=== PATIENT | male | born 1960 | race Caucasian/White ===

== ENCOUNTER 2019-05-28 14:43 | Inpatient (IN) | payer OTHER ==
--- OUTSIDE RECORDS SUMMARY | 2019-05-28 14:49 | XMS REPORT | Continuity of Care Document ---
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 Hemiplegia, 01/25/2019 [facility] unspecified Medical affecting left Center nondominant side Hypertensive 01/25/2019 [facility] emergency Medical Center Essential 01/25/2019 [facility] hypertension Medical Center Unspecified viral 01/25/2019 [facility] hepatitis C Medical without hepatic Center coma Unspecified 01/25/2019 [facility] cirrhosis of Medical liver Center NIHSS score 5 01/25/2019 [facility] Hyperlipidemia, 01/25/2019 [facility] unspecified Medical Center Facial weakness 01/25/2019 [facility] Nicotine 01/25/2019 [facility] dependence, Medical cigarettes, Center uncomplicated Personal history 01/25/2019 [facility] of transient Medical ischemic attack , Center and cerebral infarction without residual deficits Patient's other 01/25/2019 [facility] noncompliance Medical with medication Center regimen OTHER CEREBRAL Active [facility] INFARCTION Medical Center Medications Medication Details Route Status Patient Ordering Order Source Instructions Provider Date amLODIPine 5 mg 5 mg=1 tab, Active [facility] oral tablet PO, Daily, # 018 Medical 30 tab, 2 Center Refill(s) lisinopril 20 mg 20 mg=1 tab, Active [facility] oral tablet PO, Daily, # 018 Medical 30 tab, 2 Center Refill(s) clopidogrel 75 75 mg=1 tab, Active [facility] mg oral tablet PO, Daily, # 018 Medical 30 tab, 2 Center Refill(s) atorvastatin 20 20 mg=1 tab, Active [facility] [place] mg oral tablet PO, Bedtime, 018 Medical # 30 tab, 2 Center Refill(s) Aspirin 325 MG 325 mg=1 tab, Active [facility] Enteric Coated PO, Daily, # 018 Medical Tablet 30 tab, 2 Center Refill(s) Lisinopril 20 mg, 1 tab, Inactive [facility] Route: PO, 018 Medical Drug form: Center TAB, Daily, Dosing Weight 88.636, kg, Start date: 07/08/18 12:00:00 CDT, Duration: 30 day, Stop date: 08/07/18 9:00:00 CDTNotes: (Same as: Prinivil, Zestril) Docusate Sodium 1 tab, Route: No Longer [facility] 50 MG / PO, Drug Active 018 Medical sennosides, SHELTER Form: TAB, Center 8.6 MG Oral Dosing Weight Tablet 88.636, kg, BID, Start date: 07/07/18 17:00:00 CDT, Duration: 30 day, Stop date: 08/06/18 9:00:00 CDTNotes: (Same as Senokot-S) Equiv. to Anai-Colace. Tramadol 50 mg, 1 tab, No Longer [facility] Route: PO, Active [facility] form: [place] TAB, Q6H, Dosing Weight 88.636, kg, PRN Pain Score 6-10, Start date: 07/07/18 13:07:00 CDT, Duration: 5 day, Stop date: 07/12/18 13:06:00 CDTNotes: Not to exceed 400mg/day. (Same As: Ultram) Midazolam 2 mg, Route: Inactive [facility] IVP, ONCE, 018 Medical Dosing Weight Center 88.636, kg, Start date: 07/07/18 13:04:00 CDT, Stop date: 07/07/18 13:04:00 CDT Fentanyl 100 Inactive [facility] microgram, 018 Medical Route: IV, Center ONCE, Dosing Weight 88.636, kg, Start date: 07/07/18 13:04:00 CDT, Stop date: 07/07/18 13:04:00 CDT Omnipaque 300 150 mL, Inactive [facility] Route: 018 Medical INTRAARTERIAL Center , Dosing Weight 88.636, kg, ONCE, Start date: 07/07/18 13:04:00 CDT, Stop date: 07/07/18 13:04:00 CDT captopril 25 mg, 1 tab, No Longer [facility] Route: PO, Active 018 Medical Drug form: Center TAB, Q8H, Start date: 07/07/18 12:25:00 CDT, Duration: 30 day, Stop date: 08/06/18 8:00:00 CDTNotes: Give on empty stomach. 1 hour before meal. (Same As: Capoten) remove patch 1 patch, No Longer [facility] Route: TOP, Active 018 Medical Bedtime, Drug Center form: ERFILM, Start date: 07/06/18 21:00:00 CDT, Duration: 30 day, Stop date: 08/04/18 21:00:00 CDTNotes: Remove patch 12 hours after application each day. remove patch 1 patch, No Longer [facility] Route: TOP, Active 018 Medical Drug form: Center ERFILM, Daily, Start date: 07/06/18 9:00:00 CDT, Duration: 30 day, Stop date: 08/04/18 9:00:00 CDTNotes: Remove old patch before application of new patch. WASTE: F/P - P Waste Black; E - P Waste Black Aspirin 325 MG 325 mg, 1 No Longer [facility] Enteric Coated tab, Route: Active 018 Medical Tablet PO, Drug Center form: TAB, Daily, Dosing Weight 88.636, kg, Start date: 07/06/18 9:00:00 CDT, Duration: 30 day, Stop date: 08/04/18 9:00:00 CDTNotes: Take with food. Lidocaine 0.05 1 patch, No Longer [facility] MG/MG Route: TOP, Active 018 Medical Transdermal Daily, Drug Center Patch form: FILM, Start date: 07/06/18 9:00:00 CDT, Duration: 30 day, Stop date: 08/04/18 9:00:00 CDTNotes: Apply only once for up to 12 hours in a 24-hour period (12 hours on and 12 hours off). (Same as: Lidoderm) "Remove old patch before application of new patch" Amlodipine 5 mg, 1 tab, No Longer [facility] Route: PO, Active 018 Medical Drug form: Center TAB, Daily, Dosing Weight 88.636, kg, Start date: 07/06/18 8:03:00 CDT, Duration: 30 day, Stop date: 08/04/18 9:00:00 CDT Tylenol 650 mg, 2 No Longer [facility] tab, Route: Active 018 Medical PO, Drug Center form: TAB, Q6H, Dosing Weight 88.636, kg, PRN Pain 1-3/Temp > 100.4 F, Start date: 07/06/18 2:07:00 CDT, Duration: 30 day, Stop date: 08/05/18 2:06:00 CDTNotes: Do not exceed 4 gm/day. (Same as: Tylenol) Spironolactone 25 mg=2 tab, No Longer [facility] PO, Daily, # Active 018 Medical 60 tab, 0 Center Refill(s) Furosemide Daily, 0 No Longer [facility] Refill(s) Active 018 [facility] Center amLODIPine 10 mg 20 mg=2 tab, No Longer [facility] oral tablet PO, QAM, 0 Active 018 Medical Refill(s) Center Nicotine 21 mg, 1 No Longer [facility] patch, Route: Active 018 Medical TOP, Drug Center form: ERFILM, Daily, Dosing Weight 88.636, kg, Start date: 07/05/18 9:00:00 CDT, Duration: 30 day, Stop date: 08/03/18 9:00:00 CDTNotes: (Same as: Habitrol) "Remove old patch before application of new patch" WASTE: F/P - P Waste Black; E - P Waste Black Plavix 75 mg, 1 tab, No Longer [facility] Route: PO, Active 018 Medical Drug form: Center TAB, Daily, Dosing Weight 88.636, kg, Start date: 07/05/18 9:00:00 CDT, Stop date: 08/03/18 9:00:00 CDTNotes: (Same As: Plavix) Aspirin 81 MG 81 mg, 1 tab, No Longer [facility] Enteric Coated Route: PO, Active 018 Medical Tablet Drug form: [place] ECTAB, Daily, Dosing Weight 88.636, kg, Start date: 07/05/18 8:00:00 CDT, Duration: 30 day, Stop date: 08/03/18 9:00:00 CDTNotes: Do not crush or chew. (Same As: Ecotrin) Saline Flush 10 ml, Route: No Longer [facility] 0.9% IVP, Drug Active 018 Medical Form: INJ, [place] Dosing Weight 88.636, kg, Q12H, Start date: 07/04/18 21:00:00 CDT, Duration: 30 day, Stop date: 08/03/18 9:00:00 CDTNotes: (Same as: BD Posiflush) atorvastatin 20 mg, 1 tab, No Longer [facility] Route: PO, Active 018 Medical Drug form: [place] TAB, Bedtime, Dosing Weight 88.636, kg, Start date: 07/04/18 21:00:00 CDT, Duration: 30 day, Stop date: 08/02/18 21:00:00 CDTNotes: (Same As: Lipitor) sennosides, SHELTER 8.6 mg, 1 No Longer [facility] tab, Route: Active 018 Medical PO, Drug Center Form: TAB, Dosing Weight 88.636, kg, BID, PRN Constipation, Start date: 07/04/18 17:46:00 CDT, Duration: 30 day, Stop date: 08/03/18 17:45:00 CDTNotes: (Same as: Senokot) Plavix 600 mg, 2 Inactive [facility] tab, Route: 018 Medical PO, Drug Center form: TAB, ONCE, Dosing Weight 88.636, kg, Start date: 07/04/18 16:26:00 CDT, Stop date: 07/04/18 16:26:00 CDTNotes: ( Same as: Plavix) Aspirin 325 MG 325 mg, 1 Inactive [facility] Oral Tablet tab, Route: 018 Medical PO, Drug Center form: TAB, ONCE, Dosing Weight 88.636, kg, Priority: STAT, Start date: 07/04/18 16:26:00 CDT, Stop date: 07/04/18 16:26:00 CDTNotes: Take with food. heparin 5,000 unit, 1 No Longer [facility] mL, Route: Active 018 Medical SUB-Q, Drug Center form: INJ, Q8H, Dosing Weight 88.636, kg, (For patients weighing Notes: porcine heparin iodixanol 100 mL, Inactive [facility] Route: IVP, 018 Medical Drug Form: [place] SOLN, Dosing Weight 88.636, kg, ONCALL, STAT, Start date: 07/04/18 15:05:00 CDT, Duration: 1 doses or times, Dose=2.2ml/kg , Max [id number] -- "To be infused by Radiology Staff ONLY" Saline Flush 10 ml, Route: No Longer [facility] 0.9% IVP, Drug Active 018 Medical Form: INJ, [place] Dosing Weight 88.636, kg, PRN, PRN Line Flush, Start date: 07/04/18 15:01:00 CDT, Duration: 30 day, Stop date: 08/03/18 15:00:00 CDTNotes: (Same as: BD Posiflush) Hydralazine 10 mg, 0.5 No Longer [facility] mL, Route: Active 018 Medical IVP, Drug Center form: INJ, Q6H, Dosing Weight 88.636, kg, PRN Hypertension, Start date: 07/04/18 15:01:00 CDT, Duration: 30 day, Stop date: 08/03/18 15:00:00 CDTNotes: (Same as: Apresoline) Push over 5 minutes Labetalol 10 mg, 2 mL, No Longer [facility] Route: IVP, Active 018 Medical Drug form: [place] INJ, Q15Min, Dosing Weight 88.636, kg, PRN Hypertension, Start date: 07/04/18 15:01:00 CDT, Duration: 30 day, Stop date: 08/03/18 15:00:00 CDT Ondansetron 4 mg, 2 mL, No Longer [facility] Route: IVP, Active 018 Medical Drug form: Center INJ, Q8H, Dosing Weight 88.636, kg, PRN Nausea & Vomiting, Start date: 07/04/18 15:01:00 CDT, Duration: 30 day, Stop date: 08/03/18 15:00:00 CDTNotes: (Same as: Zofran) MEDICATION WASTE Product Size: 4 mg Product Wasted: ___ mg Sodium Chloride 1,000 mL, No Longer [facility] 0.9% IV 1,000 mL Rate: 100 Active 018 Medical ml/hr, Infuse Center over: 10 hr, Route: IV, Dosing Weight 88.636 kg, Total Volume: 1,000, Start date: 07/04/18 15:01:00 CDT, Duration: 30 day, Stop date: 08/03/18 15:00:00 CDT, 2.11, m2 Saline Flush 10 mL, Route: No Longer [facility] 0.9% MISC, Drug Active 018 Medical Form: INJ, Center Dosing Weight 88.636, kg, PRN, PRN Line Flush, Start date: 07/04/18 14:01:00 CDT, Duration: 30 day, Stop date: 08/03/18 14:00:00 CDTNotes: (Same as: BD Posiflush) Allergies, Adverse Reactions, Alerts Substance Category Reaction Severity Reaction Status Date Comments Source type Reported No Known Assertion Drug Mischer Medication allergy Neuro Allergies Immunizations No Data Provided for This Section Results Order Name Results Value Reference Date Interpretation Comments Source Range CHEM PANEL Magnesium Lvl 2.3 1.8 - 2.4 07/08 [facility] CHEM PANEL Phosphorus 3.8 2.5 - 4.5 07/08 [facility] CHEM PANEL eGFR 106 07/08 Result Comment: The Medical eGFR is Center calculated using the CKD-EPI formula. In most young, healthy individuals the eGFR will be >90 mL/min/1.73m2 . The eGFR declines with age. An eGFR of 60-89 may be normal in some populations, particularly the elderly, for whom the CKD-EPI formula has not been extensively validated. Use of the eGFR is not recommended in the following populations:< br/>
Kylie viduals with unstable creatinine concentration s, including patients and those with serious co-morbid conditions.<b r/>
Patie nts with extremes in muscle mass or diet.

The data above are obtained from the National Kidney Disease Education Program (NKDEP) which additionally recommends that when the eGFR is used in patients with extremes of body mass index for purposes of drug dosing, the eGFR should be multiplied by the estimated BMI. CHEM PANEL Potassium Lvl 3.7 3.5 - 5.1 07/[address] CHEM PANEL Sodium Lvl 140 135 - 145 07/[address] CHEM PANEL Creatinine 0.65 0.50 - 07/08 [facility] Lvl 1.40 [facility] CHEM PANEL Chloride Lvl 108 95 - 109 07/[address] CHEM PANEL Calcium Lvl 8.1 8.5 - 10.5 07/[address] CHEM PANEL CO2 24 24 - 32 07/[address] CHEM PANEL BUN 12 7 - 22 07/[address] CHEM PANEL Glucose Lvl 116 70 - 99 07/[address] CHEM PANEL AGAP 11.7 10.0 - 07/08 [facility] 20.0 2017 [facility] HEMATOLOGY Basophils # 0.1 0.0 - 0.2 07/[address] HEMATOLOGY Eosinophils # 0.2 0.0 - 0.5 07/[address] HEMATOLOGY Monocytes # 0.5 0.0 - 0.8 07/[address] HEMATOLOGY Lymphocytes # 1.4 1.0 - 5.5 07/[address] HEMATOLOGY Neutrophils # 4.3 1.5 - 8.1 07/[address] HEMATOLOGY Monocytes 7.7 2.0 - 12.0 07/[address] HEMATOLOGY Lymphocytes 21.2 20.0 - 07/08 [place] 40.0 2017 [facility] HEMATOLOGY Eosinophils 2.4 0.0 - 4.0 07/[address] HEMATOLOGY Basophils 1.3 0.0 - 1.0 07/[address] HEMATOLOGY Segs 67.4 45.0 - 07/08 [place] 75.0 [facility] HEMATOLOGY Hct 41.7 42.0 - 07/08 [place] 54.0 [facility] HEMATOLOGY MCV 91.7 80.0 - 07/08 [facility] 94.0 [facility] HEMATOLOGY WBC 6.4 3.7 - 10.4 07/08 [facility] HEMATOLOGY MCHC 35.6 32.0 - 07/08 [place] 36.0 [facility] HEMATOLOGY RBC 4.54 4.70 - 07/08 [place] 6.10 [facility] HEMATOLOGY Hgb 14.8 14.0 - 07/08 [place] 18.0 [facility] HEMATOLOGY MPV 8.1 7.4 - 10.4 07/08 [facility] HEMATOLOGY Platelet 134 133 - 450 07/08 [facility] HEMATOLOGY RDW 13.9 11.5 - 07/08 [place] 14.5 [facility] HEMATOLOGY MCH 32.6 27.0 - 07/08 [place] 31.0 [facility] PARATHYROID Ca Ion WB 1.08 1.05 - 07/08 [facility] PROFILE 1. [facility] PARATHYROID Ca Norm WB 1.10 1.05 - 07/08 [facility] PROFILE 1. [facility] BLOOD BANK ABO/Rh A POS 07/07 [facility] RESULTS /2017 [facility] BLOOD BANK Antibody Scrn Negative 07/07 [facility] RESULTS (07/07/18 12:01 AM) [facility] CHEM PANEL Phosphorus 2.6 2.5 - 4.5 07/07 [facility] CHEM PANEL Magnesium Lvl 2.2 1.8 - 2.4 07/07 [facility]2017 [facility] ELECTROLYTE AGAP 14.0 10.0 - 07/07 [facility] S 20.0 [facility] ELECTROLYTE eGFR 97 07/07 Result [facility] Comment: The Medical eGFR is Center calculated using the CKD-EPI formula. In most young, healthy individuals the eGFR will be >90 mL/min/1.73m2 . The eGFR declines with age. An eGFR of 60-89 may be normal in some populations, particularly the elderly, for whom the CKD-EPI formula has not been extensively validated. Use of the eGFR is not recommended in the following populations:< br/>
Kylie viduals with unstable creatinine concentration s, including patients and those with serious co-morbid conditions.<b r/>
Patie nts with extremes in muscle mass or diet.

The data above are obtained from the National Kidney Disease Education Program (NKDEP) which additionally recommends that when the eGFR is used in patients with extremes of body mass index for purposes of drug dosing, the eGFR should be multiplied by the estimated BMI. ELECTROLYTE Potassium Lvl 4.0 3.5 - 5.1 07/[address] ELECTROLYTE Chloride Lvl 110 95 - 109 07/[address] ELECTROLYTE BUN 17 7 - 22 07/[address] ELECTROLYTE Sodium Lvl 142 135 - 145 07/[address] ELECTROLYTE Glucose Lvl 97 70 - 99 07/[address] ELECTROLYTE Creatinine 0.82 0.50 - 07/07 [facility] Lvl 1.40 [facility] ELECTROLYTE CO2 22 24 - 32 07/[address] ELECTROLYTE Calcium Lvl 8.0 8.5 - 10.5 07/[address] HEMATOLOGY Lymphocytes 23.2 20.0 - 07/07 [facility] [address] HEMATOLOGY Segs 64.9 45.0 - 07/07 [facility] [address] HEMATOLOGY Eosinophils # 0.2 0.0 - 0.5 07/[address] HEMATOLOGY Basophils # 0.1 0.0 - 0.2 07/[address] HEMATOLOGY Basophils 1.3 0.0 - 1.0 07/[address] HEMATOLOGY Neutrophils # 4.0 1.5 - 8.1 07/[address] HEMATOLOGY Monocytes 8.0 2.0 - 12.0 07/[address] HEMATOLOGY Eosinophils 2.6 0.0 - 4.0 07/[address] HEMATOLOGY Lymphocytes # 1.4 1.0 - 5.5 07/[address] HEMATOLOGY Monocytes # 0.5 0.0 - 0.8 07/[address] HEMATOLOGY Platelet 128 133 - 450 07/[address] HEMATOLOGY MPV 8.3 7.4 - 10.4 07/[address] HEMATOLOGY RDW 14.2 11.5 - 07/07 [facility] 14.5 [facility] HEMATOLOGY MCV 93.2 80.0 - 07/07 [place] 94.0 /2017 [facility] HEMATOLOGY MCH 32.3 27.0 - 07/07 [facility] 31.0 [facility] HEMATOLOGY Hgb 14.6 14.0 - 07/07 [facility] 18.0 [facility] HEMATOLOGY Hct 42.2 42.0 - 07/07 [facility] 54.0 [facility] HEMATOLOGY MCHC 34.7 32.0 - 07/07 [facility] 36.0 [facility] HEMATOLOGY RBC 4.53 4.70 - 07/07 [facility] 6.10 /2017 [facility] HEMATOLOGY WBC 6.1 3.7 - 10.4 07/07 [facility] HEMATOLOGY PT 12.3 12.0 - 07/07 [facility] 14.7 [facility] HEMATOLOGY PTT 26.7 22.9 - 07/07 [facility] 35.8 [facility] HEMATOLOGY INR 0.91 0.85 - 07/07 [facility] 1.17 [facility] HEMATOLOGY Ly30 3.2 0.0 - 7.5 07/07 [facility] HEMATOLOGY Coag Index 1.0 -3.0-3.0 - 07/07 [facility] 3.0 [facility] HEMATOLOGY Max Amp 55.2 50.0 - 07/07 [facility] 70.0 [facility] HEMATOLOGY G-value 6.2 4.5 - 11.0 07/07 [facility] HEMATOLOGY R-time 3.8 5.0 - 10.0 07/07 [facility] HEMATOLOGY K-time 1.7 1.0 - 3.0 07/07 [facility] HEMATOLOGY Angle 67.9 53.0 - 07/07 [facility] 72.0 [facility] HEMATOLOGY TEG Data See Note 07/07 [facility] (07/07/18 12:01 AM) /2017 [facility] HEMATOLOGY TEG Interp Thrombelas 07/07 [facility] tograph [facility] show shortened value of R. This finding is suggestive of enzymatic hypercoagu lation. CPT:11953 PARATHYROID Ca Norm WB 1.06 1.05 - 07/07 [facility] PROFILE . [facility] PARATHYROID Ca Ion WB 1.07 1.05 - 07/07 [facility] PROFILE 12.05 [facility] CHEM PANEL Lactic Acid 1.9 0.5 - 2.2 08/26 [facility] Lvl [facility] CHEM PANEL Magnesium Lvl 2.1 1.8 - 2.4 07/[address] CHEM PANEL Phosphorus 2.8 2.5 - 4.5 07/[address] CHEM PANEL A/G Ratio 0.7 0.7 - 1.6 07/[address] CHEM PANEL Globulin 3.5 2.7 - 4.2 07/[address] CHEM PANEL Bili Total 0.7 0.2 - 1.3 07/[address] CHEM PANEL Bili Indirect 0.5 0.0 - 1.0 07/[address] CHEM PANEL Total Protein 5.9 6.4 - 8.4 07/[address] CHEM PANEL ALT 95 0 - 65 07/[address] CHEM PANEL Albumin Lvl 2.4 3.5 - 5.0 07/[address] CHEM PANEL Alk Phos 102 39 - 136 07/[address] CHEM PANEL AST 87 0 - 37 07/[address] CHEM PANEL Bili Direct 0.2 0.0 - 0.3 07/[address] ELECTROLYTE AGAP 11.7 10.0 - 07/06 [facility] S 20.0 [facility] ELECTROLYTE eGFR 105 07/06 Result [facility] S Comment: The Medical eGFR is Center calculated using the CKD-EPI formula. In most young, healthy individuals the eGFR will be >90 mL/min/1.73m2 . The eGFR declines with age. An eGFR of 60-89 may be normal in some populations, particularly the elderly, for whom the CKD-EPI formula has not been extensively validated. Use of the eGFR is not recommended in the following populations:< br/>
Kylie viduals with unstable creatinine concentration s, including patients and those with serious co-morbid conditions.<b r/>
Patie nts with extremes in muscle mass or diet.

The data above are obtained from the National Kidney Disease Education Program (NKDEP) which additionally recommends that when the eGFR is used in patients with extremes of body mass index for purposes of drug dosing, the eGFR should be multiplied by the estimated BMI. ELECTROLYTE BUN 17 7 - 22 07/06 [facility] ELECTROLYTE Creatinine 0.68 0.50 - 07/06 [facility] S Lvl 1.40 /2017 [facility] ELECTROLYTE Potassium Lvl 3.7 3.5 - 5.1 07/[address] ELECTROLYTE Sodium Lvl 141 135 - 145 07/[address] ELECTROLYTE CO2 25 24 - 32 07/[address] ELECTROLYTE Glucose Lvl 125 70 - 99 07/[address] ELECTROLYTE Chloride Lvl 108 95 - 109 07/[address] ELECTROLYTE Calcium Lvl 7.8 8.5 - 10.5 07/06 [facility]2017 [facility] HEMATOLOGY RDW 13.7 11.5 - 07/06 [facility] 14.5 [facility] HEMATOLOGY MCHC 35.5 32.0 - 07/06 [facility] 36.0 [facility] HEMATOLOGY Platelet 127 133 - 450 07/[address] HEMATOLOGY MPV 8.2 7.4 - 10.4 07/[address] HEMATOLOGY WBC 6.3 3.7 - 10.4 07/[address] HEMATOLOGY RBC 4.61 4.70 - 07/06 [place] 6.10 [facility] HEMATOLOGY Hgb 14.9 14.0 - 07/06 [place] 18.0 [facility] HEMATOLOGY Hct 42.1 42.0 - 07/06 [place] 54.0 [facility] HEMATOLOGY MCV 91.2 80.0 - 07/06 [facility] 94.0 [facility] HEMATOLOGY MCH 32.4 27.0 - 07/06 [place] 31.0 [facility] HEMATOLOGY Lymphocytes # 1.2 1.0 - 5.5 07/[address] HEMATOLOGY Monocytes # 0.6 0.0 - 0.8 07/[address] HEMATOLOGY Eosinophils # 0.2 0.0 - 0.5 07/[address] HEMATOLOGY Basophils # 0.1 0.0 - 0.2 07/[address] HEMATOLOGY Eosinophils 2.4 0.0 - 4.0 07/[address] HEMATOLOGY Neutrophils # 4.3 1.5 - 8.1 07/[address] HEMATOLOGY Basophils 1.0 0.0 - 1.0 07/[address] HEMATOLOGY Segs 68.6 45.0 - 07/06 [facility] 75.0 [facility] HEMATOLOGY Lymphocytes 18.8 20.0 - 07/06 [facility] 40.0 [facility] HEMATOLOGY Monocytes 9.2 2.0 - 12.0 07/[address] PARATHYROID Ca Norm WB 1.10 1.05 - 07/06 [facility] PROFILE 1. [facility] PARATHYROID Ca Ion WB 1.10 1.05 - 07/06 [facility] PROFILE 1. [facility] LIPIDS LDL 76 <=99 mg/dL 07/04 [facility] (Calculated) /2017 [facility] LIPIDS VLDL 25 07/[address] LIPIDS Trig 123 <=149 07/04 [facility] mg/dL [address] [place] [address] LIPIDS HDL 52 >=61 mg/dL 07/[address] LIPIDS Chol 153 <=199 07/04 [facility] mg/dL [address] [place] [address] LIPIDS CHD Risk 2.94 4.00 - 07/04 [facility] 7.30 [facility] SPECIAL Hgb A1C 5.0 <=5.6 % 07/04 [facility] CHEMISTRY /[address] [place] [address] CHEM PANEL Bili Direct 0.2 0.0 - 0.3 07/[address] CHEM PANEL Alk Phos 109 39 - 136 07/[address] CHEM PANEL Globulin 3.8 2.7 - 4.2 07/[address] CHEM PANEL Bili Total 0.9 0.2 - 1.3 07/[address] CHEM PANEL A/G Ratio 0.7 0.7 - 1.6 07/[address] CHEM PANEL ALT 112 0 - 65 07/[address] CHEM PANEL Total Protein 6.5 6.4 - 8.4 07/[address] CHEM PANEL Albumin Lvl 2.7 3.5 - 5.0 07/[address] CHEM PANEL AST 105 0 - 37 07/[address] CHEM PANEL B/C Ratio 18 6 - 25 07/[address] DRUG SCREEN U Cocaine Scr Negative Negative 07/04 [facility] *NA* /2017 Medical (07/04/18 3:28 PM) Center DRUG SCREEN U Benzodiaz Negative Negative 07/04 [place] [facility] *NA* Medical (07/04/18 3:28 PM) Center DRUG SCREEN U Sendy Scr Negative Negative 07/04 [place] *NA* /2017 Medical (07/04/18 3:28 PM) Center DRUG SCREEN U Amph Scr Negative Negative 07/04 [place] *NA* /2017 Medical (07/04/18 3:28 PM) Center DRUG SCREEN U Negative Negative 07/04 [facility] Phencyclidine *NA* Medical Scr (07/04/18 3:28 PM) Center DRUG SCREEN U Cannab Scr Negative Negative 07/04 [place] *NA* /2017 Medical (07/04/18 3:28 PM) Center DRUG SCREEN UDS Note See Note 07/04 [facility] (07/04/18 3:28 PM) /2017 [facility] Hospital DRUG SCREEN U Opiate Scr Negative Negative 07/04 [facility] *NA* [facility] (07/04/18 3:28 PM) [place] URINE AND UA RBC None Seen 0 - 2 07/04 [facility] (07/04/18 3:28 PM) /2017 [facility] URINE AND UA WBC None Seen None Seen 07/04 [facility] (07/04/18 3:28 PM) /2017 [facility] [place] URINE AND UA Sq Epi None Seen Few 07/04 [facility] (07/04/18 3:28 PM) /2017 [facility] URINE AND UA Bacteria None Seen None Seen 07/04 [facility] (07/04/18 3:28 PM) /2017 [facility] URINE AND UA Bili Negative Negative 07/04 [facility] ST[facility]OL *NA* [facility] (07/04/18 3:28 PM) [place] URINE AND UA Ketones Negative Negative 07/04 [facility] *NA* [facility] (07/04/18 3:28 PM) [place] URINE AND UA Spec Grav 1.025 <=1.030 07/04 [facility] STOOL /2017 [facility] URINE AND UA Turbidity Clear Clear 07/04 [facility] (07/04/18 3:28 PM) /2017 [facility] URINE AND UA 1.0 0.1 - 1.0 07/04 [facility] STOOL Urobilinogen /2017 [facility] URINE AND UA Glucose Negative Negative 07/04 [facility] (07/04/18 3:28 PM) /2017 [facility] URINE AND UA Protein >=300 Negative 07/04 [facility] STOOL mg/dL mg/dL [facility] URINE AND UA pH 6.0 5.0 - 8.0 07/04 [facility] STOOL /2017 [facility] URINE AND UA Leuk Est Negative Negative 07/04 [facility] (07/04/18 3:28 PM) [facility] URINE AND UA Nitrite Negative Negative 07/04 [facility] (07/04/18 3:28 PM) /2017 [facility] URINE AND UA Blood Moderate Negative 07/04 [facility] ST[facility] *ABN* /2017 [facility] (07/04/18 3:28 PM) [place] URINE AND UA Color Yellow Yellow 07/04 [facility] *NA* /2017 [facility] (07/04/18 3:28 PM) [place] CHEM PANEL POC 0.7 0.5 - 1.4 07/04 [facility] Creatinine [facility] CARDIAC Troponin-I <0.02 0.00 - 07/04 [facility] ENZYMES 0.40 [facility] CARDIAC Total CK 86 12 - 191 07/04 [facility] ENZYMES [facility] HEMATOLOGY Tot Cell Ct 100 07/04 [facility] /2017 [facility] HEMATOLOGY Plt Morph Normal 07/04 [facility] (07/04/18 2:29 PM) /2017 [facility] HEMATOLOGY RBC Morph Normal 07/04 [facility] (07/04/18 2:29 PM) /2017 [facility] HEMATOLOGY Atypical 0.0 <=0.0 % 07/04 [facility] Lymphs [facility] HEMATOLOGY Bands 0.0 0.0 - 11.0 07/04 [facility] /[address] [place] [address] HEMATOLOGY PTT 20.4 22.9 - 07/04 [facility] 35.8 [facility] HEMATOLOGY INR 0.93 0.85 - 07/04 [facility] 1.17 [facility] HEMATOLOGY PT 12.5 12.0 - 07/04 [facility] 14.7 [facility] Pathology Reports No Data Provided for This Section Diagnostic Reports Report Value Date Source Angiogram cervical PROCEDURE: 07/07/2018 [facility] artery bilateral VR 1. [facility] DATE: 07/07/2018 12:19 PM CDT INDICATION: Bilateral internal carotid artery stenosis, watershed infarcts HISTORY: Patient is a 57-year-old male with history of prior transient ischemic attacks, uncontrolled hypertension, tobacco use and hep C with cirrhosis who presents with acute left sensorimotor changes of the left upper extremity. CTA demonstrated bilateral cervical internal carotid artery stenosis. Magnetic resonance imaging showed bilateral watershed infarcts. Given this, diagnostic cerebral angiography was requested for further evaluation. REFERRING PROVIDER: Bridgett Duncan MD ATTENDING: Wilber Diamond MD was present and immediately available for the entire procedure, performing all critical portions and reviewing all angiographic results. FELLOW: Gabriel Lakhani MD COMPARISON: None FLUOROSCOPY TIME: 16.3 minutes CONTRAST: 140 cc MEDICATIONS: See nursing records. RADIATION DOSE: Cumulative Air KERMA Frontal: 1132 mGy Cumulative Air KERMA Lateral: 247 mGy PROCEDURE: Once informed consent was obtained describing all the risks, benefits and alternatives of the procedure the patient was brought to the interventional suite and placed in the supine position w here moderate sedation was administered under the supervision of the attending physician. The patient was then prepped and draped in the usual sterile fashion. The right femoral artery was accessed usin g a single wall micropuncture technique and a 5-Moldovan sheath was placed. Heparin 3000 units IV was given. A 5-Moldovan Vert catheter was coaxially advanced over a 0.035 Terumo Glidewire through the sheat h into the aorta arch to select the below mentioned arteries using roadmap technique. Two-dimensional angiography was performed in biplane projections. After review of the angiography data, the catheter was withdrawn. Right femoral artery angiogram was performed and the catheter was removed. The femoral artery sheath was removed and closed by the appl ication of an Angio-Seal closure device. Post procedure neurological examination was at the patient's baseline. The patient was was then transferred to their unit for post procedure care. TASKS: 1. Right common carotid artery catheterization and 2-D cervical angiogram 2. Right internal carotid artery selective catheterization and 2-D angiogram 3. Right external carotid artery selective catheterization and 2-D angiogram 4. Left external carotid artery selective catheterization and 2-D angiogram 5. Left internal carotid artery selective catheterization and 2-D angiogram 6. Left common carotid artery catheterization and 2-D cervical angiogram 7. Left vertebral artery selective catheterization and 2-D cerebral angiogram 8. Right subclavian artery catheterization and 2-D cervical angiogram 9. Right common femoral artery catheterization and 2-D angiogram 10. Application of Angio-Seal vascular closure device FINDINGS: 1. Right common carotid artery: Right common carotid artery injection and cervical angiogram reveals normal antegrade flow into the external and internal carotid arteries with normal filling of the exte rnal carotid artery branches. Course and caliber of the cervical portion of the internal carotid artery are unremarkable. Further inspection demonstrates no evidence of dissection, stenosis, aneurysm, o r other vascular abnormality within the common carotid artery into the cervical segment of the internal carotid artery. 2. Right internal carotid artery: Right internal carotid artery injection reveals antegrade filling of the distal internal carotid artery, ophthalmic artery, anterior cerebral artery, middle cerebral ar lamin and the distal branches. Further inspection of the remaining right internal carotid artery circulation revealed luminal irregularity and stenosis of the petrous segment of the right internal caroti d artery. Stenosis is approximately 70%. There is no flow limitation. These findings are consistent with possible healed dissection versus atherosclerotic disease. There is no evidence of cerebral aneur ysm, arteriovenous malformation, or other vascular abnormalities. Capillary and venous phase images were also unremarkable with no evidence of venoocclusive disease. Normal variants include absent retin al blush from the right internal carotid artery injection. 3. Right external carotid artery: Right external carotid artery injection reveals normal antegrade opacification of the right external carotid artery and branches. There is no evidence of abnormal intra cranial communication or early venous shunting. Normal variants include retinal blush supply from branches of the right middle meningeal artery. 4. Left external carotid artery: Left external carotid artery injection reveals normal antegrade opacification of the left external carotid artery and branches. There is no evidence of abnormal intracra nial communication or early venous shunting. . Normal variants include retinal blush supply from branches of the left middle meningeal artery. 5. Left internal carotid artery: Left internal carotid artery injection reveals normal antegrade filling of the distal internal carotid artery, ophthalmic artery, anterior cerebral artery, middle cerebr al artery and the distal branches. Further inspection of the remaining left internal carotid artery circulation revealed luminal irregularity and stenosis of the cavernous segment of the left internal carotid artery. Stenosis is approximately 60%. There is no flow limitation. These findings are consistent with atherosclerotic disease. There is no evidence of cerebral aneurysm, arteriovenous malformat ion, or other vascular abnormalities. Capillary and venous phase images were also unremarkable with no evidence of venoocclusive disease. Normal variants include absent retinal blush from the left internal carotid artery injection. 6. Left common carotid artery: Left common carotid artery injection and cervical angiogram reveals normal antegrade flow into the external and internal carotid arteries with normal filling of the automotive painter al carotid artery branches. Course and caliber of the cervical portion of the internal carotid artery are unremarkable. Further inspection demonstrates no evidence of dissection, stenosis, aneurysm, or other vascular abnormality within the common carotid artery into the cervical segment of the internal carotid artery. 7. Left vertebral artery: Left vertebral artery injection and cerebral angiogram reveals normal antegrade opacification of the high cervical segment of the left vertebral artery, basilar artery and resp ective branches. Further inspection demonstrates no other evidence of cerebral aneurysm, arteriovenous malformation, dissection, arterial stenosis or other vascular abnormalities. Capillary and venous p hase images were also unremarkable with no evidence of venoocclusive disease. 8. Right subclavian artery: Right plated artery injection and cervical angiogram reveals antegrade opacification of the subclavian artery and respective branches. A diminutive right cervical vertebral a rtery is seen. Additionally, there is collateralization to the right distal cervical vertebral artery from the ascending cervical artery via muscular branches. 9. Right common femoral artery: Right common femoral artery injection demonstrates arterial catheterization above the level of the bifurcation. There was no evidence of dissection or occlusion within the right common femoral artery. IMPRESSION: 1. Luminal irregularity with 70% stenosis of the petrous segment of the right internal carotid artery. There is no flow limitation. These findings are consistent with possible healed dissection versus atherosclerotic sclerotic disease. 2. Luminal irregularity and 60% stenosis of the cavernous segment of the left internal carotid artery. There is no flow limitation. These findings are consistent with possible healed dissection versus atherosclerotic sclerotic disease. 3. Diminutive right cervical vertebral artery with collateralization to the distal right vertebral artery from the ascending cervical artery via muscular branches. 4. Normal variants include absence of retinal blush from the bilateral internal carotid artery injections. The retinal blush is supplied by the branches of the bilateral middle meningeal arteries. Shoulder series DX EXAM: XR LEFT SHOULDER 3 VIEWS 07/06/2018 [facility] DATE: 07/06/2018 8:27 AM CDT Center INDICATION: - L shoulder pain, fracture or dislocation? COMPARISON: None TECHNIQUE: 3 views of the shoulder FINDINGS: No acute fracture or malalignment is identified. Severe degenerative changes of the left glenohumeral joint is identified. There is also resection of the left distal clavicle with secondary heterotopic ossification. No soft tissue abnormality is identified. IMPRESSION: 1. Severe degenerative changes of the glenohumeral joint. 2. Prior resection of the left distal clavicle. Brain wo contrast MRI EXAM: MRI BRAIN WITHOUT CONTRAST 07/04/2018 [facility] DATE: 07/04/2018 3:27 PM CDT Center INDICATION: - R ICA occlusion, new vs old infarct ADDITIONAL INFORMATION: None COMPARISON: CT brain same day TECHNIQUE: Multiplanar, multisequence MRI of the brain without contrast. IV contrast: None. FINDINGS: There are foci of restricted diffusion in the DIOMEDES-MCA watershed territories bilaterally with associated FLAIR hyperintensity. There are lacunar infarcts in the ro radiata. There are punctate hyperintensities in the supratentorial white matter, likely sequela of chronic small vessel ischemic disease. There is no acute or chronic intracranial hemorrhage. The ventricles are prominent secondary to parenchymal volume loss. There is no extra-axial fluid collection. The orbital globes are intact. There is mild mucosal thickening in the left maxillary antrum. IMPRESSION: 1. Acute bilateral DIOMEDES-MCA and right MCA DUE DILIGENCE COORDINATOR watershed territory ischemic infarcts. No intracranial hemorrhage is identified. The findings are compatible with embolic ischemic infarcts. 2. Moderate cerebral atrophy and changes of chronic small vessel ischemia. Chest 1view DX EXAM: XR CHEST 1 VIEW 07/04/2018 [facility] DATE: 07/04/2018 2:01 PM CDT Center INDICATION: -Stroke symptoms ADDITIONAL INFORMATION: Chief complaint -- 'Sent from [facility] - 3am left arm weakness and numbness bp-212 . Here for neuro consult hx - TIA BS-114' COMPARISON: Outside chest radiograph 07/04/2018 at 0920 hours TECHNIQUE: AP chest. FINDINGS: Lines, tubes and hardware: EKG leads overlie the chest. Lungs and pleura: Low lung volumes are present, with bibasilar subsegmental atelectasis. No pleural effusion or pneumothorax. Heart and mediastinum: The heart size is normal for technique. The thoracic aorta is calcified, ectatic and tortuous. Pulmonary vascularity is normal. Bones: No acute abnormality. Degenerative changes of the shoulders, left greater than right. IMPRESSION: Low lung volumes without acute abnormality. [place] SECTION: ER Brain Stroke wo EXAM: CT BRAIN WITHOUT CONTRAST 07/04/2018 [facility] contrast CT DATE: 07/04/2018 14:54 CDT Center INDICATION: Code stroke Additional information: 57-year-old male with history of hep C/cirrhosis, uncontrolled hypertension, and active tobacco use who presented with left-sided weakness. COMPARISON: CT brain without contrast from [facility]SH on 07/04/2018 at 08:40 AM CDT and concurrent CTA brain/neck. TECHNIQUE: Routine axial CT images of the brain were obtained with sagittal and coronal reformats. IV contrast: None. DLP: 766 mGy-cm FINDINGS: Heterogeneous hypodensity noted in the left posterior parietal lobe, which was noted on the previous study. This may be an age-indeterminate ischemic change. Several bilateral scattered white matter hypodensities, consistent with chronic microvascular disease. Diffuse parenchymal volume loss. Ventricles appear to be enlarged out of proportion to this volume loss. 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 Basal cisterns are well preserved. No evidence of herniation. Calvarium is intact. Visualized paranasal sinuses are clear. Mastoid air cells are well aerated. Visualized orbits appear grossly unremarkable. ASPECTS: 9 Laterality: left Caudate: normal Internal capsule: normal Lenticular: normal Insula: normal M1: normal M2: normal M3: normal M4: normal M5: normal M6: normal The sinuses and skull base are unremarkable. IMPRESSION: 1. Hypodensity in the left posterior parietal lobe, may be consistent with age and to determine if ischemic change. 2. Chronic microvascular disease. 3. Diffuse volume loss Brain/Neck Stroke EXAM: CTA BRAIN 07/04/2018 [facility] CTA EXAM: CTA NECK Center EXAM: CT PERFUSION BRAIN DATE: 07/04/2018 14:54 PM CDT INDICATION: CVA COMPARISON: Concurrent CT noncontrast TECHNIQUE: - Dynamic CT perfusion images on a limited area of the brain parenchyma are performed during bolus injection of iodinated contrast material. Color maps of relative cerebral blood flow, relative cerebral blood volume, time to peak, and mean transit time are created on an independent workstation and are submitted along with the source image data. -Rapid acquisition spiral CT images of the brain and neck were obtained between the aortic arch and the cranial vertex during intravenous infusion of iodinated contrast for the purposes of CT angiograph y. 3-D CT angiographic images are created using MIP technique at the acquisition workstation. The source images are also presented for interpretation. IV contrast: Visipaque 100 mL DLP: 4184 mGy-cm FINDINGS: NECK CTA: Aortic arch: The left vertebral artery arises directly from the aortic arch. No origin stenosis is identified. The vertebral artery origins are patent bilaterally. Carotid arteries: The cervical common carotid arteries and cervical internal carotid arteries have a normal course, caliber, and contour. There are areas of calcification at the carotid bifurcations. No hemodynamically significant stenosis of the carotid bifurcations or internal carotid arteries is present by NASCET criteria. There is no evidence of vascular injury. Vertebral arteries: Left dominant vertebral system, which is an anatomic variant. The vertebral arteries have a normal course, caliber and contour. The soft tissues of the neck and other incidental structures are normal. BRAIN CTA: Anterior circulation: Almost complete occlusion of the distal petrous portion of the right internal carotid is seen extending through the foramen the cerebral. Normal distal flow is identified, the occl usion is due to a mixed atheromatous plaque that has a soft tissue and calcific component.. Atheromatous changes are seen in both internal carotids and their cavernous segments. Approximately 90% occlusion is seen in the clinoid portion of the internal carotid artery on the left side due to a mixed atheromatous plaque that has a soft tissue and calcified components. Normal distal flow is seen. Normal appearance and a standard branching pattern of the rest of the vessels. No other branch occlusion, vascular injury, arteritis, vascular malformation or aneurysm is identified. Posterior circulation: Normal appearance and a standard branching pattern. No branch occlusion, vascular injury, arteritis, vascular malformation or aneurysm is identified. A dominant left vertebral artery is present. The [place] of [place] is normal. The deep cerebral veins and major venous sinuses are normal. The brain parenchyma and other incidental structures are unremarkable. CT PERFUSION: There is no regional abnormality in cerebral blood flow, cerebral blood volume, or transit time in the imaged areas of the brain to suggest active oligemia or infarction. Rapid software: Cerebral blood flow less than 30% volume 0 cc. Time to peak greater than 6 seconds with a volume of 55 cc located mostly in the right MCA territory. A mismatch volume of 55 cc is seen with a mismatch ratio is infinite. The time to peak greater than 4 seconds involves both cerebral hemispheres in the MCA territories and likely represent slow flow from the carotid stenosis. IMPRESSION: 1. Bilateral internal carotid artery occlusions, the right side is approximately 90% and is located in the distal petrous segment and on the left side is in the clinoid segment also measuring approximately 90%. Normal distal flow is present. 2. Dominant left vertebral artery. 3. Perfusion studies demonstrate increased time to peak on both sides, more prominent on the right MCA territory with normal cerebral blood flow. (All qualitative and quantitative assessments of carotid bifurcation and proximal internal carotid artery stenosis are made referencing the distal internal carotid artery {NASCET criteria}.) These findings were reported to the neurology stroke team at the time of dictation. Consultation Notes No Data Provided for This Section Discharge Summaries No Data Provided for This Section History and Physicals No Data Provided for This Section Vital Signs Vital Sign Value Date Comments Source Systolic (mm Hg) 131 07/08/2018 [facility] Diastolic (mm Hg) 69 07/08/2018 [facility] Respitory Rate 22 07/08/2018 [facility] Systolic (mm Hg) 153 07/08/2018 [facility] Diastolic (mm Hg) 100 07/08/2018 [facility] Respitory Rate 18 07/08/2018 [facility] Respitory Rate 22 07/08/2018 [facility] Systolic (mm Hg) 138 07/08/2018 [facility] Diastolic (mm Hg) 71 07/08/2018 [facility] Weight 88.636 07/08/2018 [facility] BMI Calculated 28.86 07/08/2018 [facility] Height 175.26 cm 07/08/2018 [facility] Temperature Oral (F) 97.8 F 07/08/2018 [facility] Temperature Oral (F) 97 F 07/08/2018 [facility] Temperature Oral (F) 98.0 F 07/08/2018 [facility] Height 177.8 cm 07/07/2018 [facility] Weight 88.636 07/07/2018 [facility] BMI Calculated 28.04 07/07/2018 [facility] Weight 88.636 07/04/2018 [facility] BMI Calculated 28.04 07/04/2018 [facility] Height 177.8 cm 07/04/2018 [facility] Heart Rate 65 07/04/2018 [facility] Heart Rate 65 07/04/2018 [facility] Heart Rate 62 07/04/2018 [facility] Encounters Location Location Encounter Encounter Reason Attending ADM DC Status Source Details Type Number For Provider Date Date Visit [facility] Inpatient [id number] Kin 07/04 07/08 [facility] Franko Umaña /2017 [facility] [id number] [facility] 04/14 04/14 [facility] /2018 [facility] [place] Procedures Procedure Code Date Perfomer Comments Source Selective catheter 12643 07/07/2018 [facility] placement, vertebral Medical artery, unilateral, Center with angiography of the ipsilateral vertebral circulation and all associated radiological supervision and interpretation, includes angiography of the cervicocerebral arch, when performed Assessment and Plan Assessment and Plan Date Source Extracted from:Title: Stroke Discharge Summary 07/08/2018 [facility] Author: Shasha Fan DO Date: 07/09/18 [facility] DISCHARGE SUMMARY Date of Admission: 07/04/18 Date of Discharge: 07/08/18 Admit Diagnosis: acute cva Discharge Diagnoses:acute BL DIOMEDES-MCA and R MCA-DUE DILIGENCE COORDINATOR [place] territory infarcts, essential hypertension, hyperlipidemia, bilateral ICA stenosis Consults Obtained:none HPI and Hospital Course: DINO CARDOZA is a 57 yo RH man with history of prior TIAs (versus stroke), uncontrolled HTN with medication non-compliance, active tobacco use and Hep C with cirrhosis not on AP or AC. He presented to [facility], where vitals were notable for BP 217/ 114. Telestroke was initiated with NIHSS=5 for L VF deficit, L FD, LUE distal > proximal, LLE weakness. CTH was negative for hemorrhage, hypodensity noted in L posterior parietal lobe. IV tPA was not administered as patient was out of window. Patient was subsequently transferred to [facility] for further management. Upon presentation, vitals notable for SBP 170-200s. NIHSS=5 for L VF, L FD, and LUE drift. Repeat CTH again negative for hemorrhage with hypodensity in L posterior parietal lobe. CTA H/N revealed BL ICA occlusions, R distal petrous segment and L clinoid segment, with intracranial reconstitution, no PCOMs. CTP demonstrated increased transit time R > L. Given concern for acute versus chronic occl usions, patient was taken for STAT MRI brain which revealed acute BL DIOMEDES-MCA and R MCA-DUE DILIGENCE COORDINATOR borderzone territory infarcts without susceptibility on GRE. Upon further review, Patient does endorse taking 6 tablets of tramadol for left shoulder pain which could of dropped his blood pressure. He was loaded with ASA and Plavix and will be admitted to the stroke unit for close observation. Initially CTA observed greater than 90% stenosis of bilateral intracranial ICA. TCD revealed about a 50% LICA stenosis, right could not be identified. Patient underwent diagnostic angiogram that reveal ed a significant right ICA stenosos of about 80%. LICA showed about a 50% stenosis. Patient at this time will be maximized medically with ASA 325 mg and Plavix 75 mg daily. Lipitor 20 mg qd. Blood press ure goals of 110-140 sbp. Patient given strict return precautions and ample time for questions. Discharge Physical Examination: GEN: NAD, lying down in examination bed. HEENT: NCAT, no conjunctival injection, MMM. CV: RRR on monitor, no significant edema. PULM: NLR on RA. GI: Soft, ND, NTTP. MUSK: No deformities. INTEG: No rashes. NEURO: MS: Awake and Alert. Oriented to person, place, and date. Speech mild dysarthric/ has word finding difficulties intact including naming, comprehension , repetition. Cognition and memory grossly intact. Attention intact. No neglect. CN: visual samuels grossly intact. EOMI without gaze restriction or nystagmus. Facial sensation intact to LT. L NLFF with symemtric smile Hearing intact to finger rub bilaterally. Uvula midline with symmetric palatal elevation. MOTOR: Normal bulk and tone. LUE 3/5 limited by shoulder paint proximally but 4 +/5 distal strength . LLE antigravity without drift. RUE and RLE antigravity without drift. SENSORY: Intact to LT throughout, no extinction to DSS. COORDINATION: No dysmetria or ataxia on FTN on R. GAIT: Deferred. Final Diagnosis: acute BL DIOMEDES-MCA and R MCA-DUE DILIGENCE COORDINATOR borderzone territory infarcts Etiology of Stroke:large vessel Discharge Medications: See R for full list of medications. Patient is provided with this list at discharge. Follow up and Important Plans for Future Care: Home Care Instructions Notify Physician if any of the Following Occur : Bleeding, Fever, Nausea, Pain, Shortness of breath, Signs of infection, Swelling, Other: new arm/leg weakness, new arm/leg numbness, slurred speech, vision changes, inability to speak Special Home Care Instructions : You were admitted to the [place] Stroke service at [facility] in [place]. You were admitted for strokes. This was due to plaques in your blood vessels supp lying blood to your brain. Management of your high blood pressure and high cholesterol are very important to preventing future strokes, so it is very important that you take the medications prescribed t o you during this hospital stay. Equally important is stopping all tobacco and drug use. You will need to follow up with a stroke doctor or RESPIRATORY CARE SPECIALIST to prevent a future stroke. Medications: - Take Aspirin 325 mg daily and Plavix 75 mg daily for stroke prevention (3 months) - Take Atorvastatin 20 mg daily for high cholesterol. - Take your blood pressure medications daily and monitor your blood pressure at home (goal <140/90). - Blood pressure medication include amlodipine 5 mg daily and lisinopril 20 mg daily - Take your other medications as instructed in your discharge summary. Follow-up appointments: -Arranged for patient to follow up with the [place] [facility] [phone] on July 21, [address] Doe - Please call your PCP to schedule an appointment within 2-4 weeks for post- hospitalization follow-up and management of your overall health. Please call our nurse navigator Maig ([phone]) with any questions after discharge. Please take your discharge paperwork with you to your follow- up appointments. Returning back to work/school will be addressed at your follow- up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 atorvastatin 20mg (LDL 76, Hep C) - Blood pressure goals: 140 - 200 - TCD today (intracranial vessels) - Continuous cardiac monitoring for 24 hours - PT/OT evaluations on hold for today Hepatitis C - follow LFTs Bridgett Duncan MD MPH Stroke Attending c [phone] Plan of Care No Data Provided for This Section Social History Social History Date Source Social History TypeResponse 07/04/2018 [facility] Substance Abuse Use: None. Alcohol Current, Type Beer. Frequency: Several times per day. Smoking Status Current every day smoker; Type: Cigarettes; Exposure to Tobacco Smoke None; Cigarette Smoking Last 365 Days Yes; Reg Smoking Cessation Counseling No entered on: 07/04/18 Social History TypeResponse 07/04/2018 [facility] Substance Abuse Use: None. Alcohol Current, Type Beer. Frequency: Several times per day. Smoking Status Current every day smoker; Type: Cigarettes; Exposure to Tobacco Smoke None; Cigarette Smoking Last 365 Days Yes; Reg Smoking Cessation Counseling No entered on: 07/04/18 Family History No Data Provided for This Section Advance Directives No Data Provided for This Section Functional Status No Data Provided for This Section
--- OUTSIDE RECORDS SUMMARY | 2019-05-28 14:50 | XMS REPORT ---
:1960 Author Organization eClinicalWorks Care Team Providers Name Role Phone Nito Hamilton Provider Role Unavailable Allergies, Adverse Reactions, Alerts Substance Reaction Event Type N.K.D.A. Info Not Available Non Drug Allergy Problems Problem Type Condition Code Onset Dates Condition Status Assessment Essential hypertension I10 Active Assessment Carotid stenosis, right I65.21 Active Assessment History of hepatitis C Z86.19 Active Assessment Arthritis of shoulder region, right M19.011 Active Assessment Arthritis of left knee M17.12 Active Assessment Pure hypercholesterolemia E78.00 Active Problem Pure hypercholesterolemia E78.00 Active Problem Carotid stenosis, right I65.21 Active Problem Essential hypertension I10 Active Assessment History of CVA (cerebrovascular Z86.73 Active accident) Problem Arthritis of left knee M17.12 Active Problem Arthritis of shoulder region, right M19.011 Active Medications No Known Medications Results No Known Results Summary Purpose eClinicalWorks Submission
--- OUTSIDE RECORDS SUMMARY | 2019-05-28 14:50 | XMS REPORT ---
:1960 Author Organization e[employer] Care Team Providers Name Role Phone Nito Hamilton Provider Role Unavailable Allergies No Known Allergies Problems Problem Type Condition Code Onset Dates Condition Status Assessment Arthritis of left knee M17.12 Active Assessment Arthritis of shoulder region, right M19.011 Active Problem Pure hypercholesterolemia E78.00 Active Problem Carotid stenosis, right I65.21 Active Problem Essential hypertension I10 Active Assessment History of CVA (cerebrovascular Z86.73 Active accident) Problem Arthritis of left knee M17.12 Active Problem Arthritis of shoulder region, right M19.011 Active Medications No Known Medications Results No Known Results Summary Purpose eClinicalWorks Submission
[2019-05-28] MEDS ORDERED: ONDANSETRON 4 MG/2 ML VIAL IV PRN (15:10)
--- NOTE | 2019-05-28 15:32 | P.HP ---
Certification for Inpatient Patient admitted to: Inpatient With expected LOS: >2 Midnights Patient will require the following post-hospital care: Home Health Services Practitioner: I am a practitioner with admitting privileges, knowledge of patient current condition, hospital course, and medical plan of care. Services: Services provided to patient in accordance with Admission requirements found in Title 42 Section 412.3 of the Code of Federal Regulations Patient History Date of Service: 05/28/19 Primary Care Provider: Joy Reason for admission: Anasarca History of Present Illness: Patient is an office patient of [facility]. History of Hepatitis C, CVA with residual deficits, htn. He has been swelling for the past month per the patient. Did not follow up. Has also not been very compliant with Dr. Ventura 's order for work up and treatment of his hepatitis C. The patient feel yesterday and has a lot of injuries. This is what brought him into the office. States his knee gave out. Did not lose consciousness. He came in for this reason. He is very swollen. Upper and lower extremities as well as the abdomen. Has gained 24lbs since 04/16/19 when he was in the office last. Decision was made to admit the hospital for work up. Allergies No Known Allergies Allergy (Verified 05/28/19 15:01) - Past Medical/Surgical History Has patient received pneumonia vaccine in the past: No Diabetic: No -: CVA (11/11/2017) -: Fall(05/27/19) -: Hep C -: HTN - Social History Smoking Status: Current every day smoker Alcohol use: No CD- Drugs: No Caffeine use: Yes Place of Residence: Home Review of Systems 10-point ROS is otherwise unremarkable Cardiovascular: Edema (3+) Gastrointestinal: Distention Integumentary: Other (well healing abrasion on the face an arms. ) Physical Examination - Vital Signs Temperature: 97.8 F Blood Pressure: 194/97 Pulse: 65 Respirations: 20 Pulse Ox (%): 97 - Physical Exam General: Alert, In no apparent distress HEENT: Atraumatic, PERRLA, Mucous membr. moist/pink, EOMI, Sclerae nonicteric Neck: Supple, 2+ carotid pulse no bruit, No LAD, Without JVD or thyroid abnormality Respiratory: Clear to auscultation bilaterally, Normal air movement Cardiovascular: Regular rate/rhythm, Normal S1 S2, Edema (3+) Gastrointestinal: Normal bowel sounds, No tenderness Musculoskeletal: No tenderness Integumentary: No rashes, Skin lesion (well healing abrasions. ) Neurological: Normal gait, Normal speech, Normal strength at 5/5 x4 extr, Normal tone, Normal affect Lymphatics: No axilla or inguinal lymphadenopathy Assessment and Plan - Problems (Diagnosis) (1) Anasarca Current Visit: Yes Status: Acute Plan: Will admit him I's and O's daily. Will start lasix. Get an echocardiogram. Will consult cardiology. May need nephrology on board to help with the diuresis. (2) Hepatitis C Current Visit: Yes Status: Acute Plan: Patient has not been very compliant. He has not followed up or done the outpatient work up. Will see if we can get it done in house. Consult Dr. Ventura. Qualifiers: Viral hepatitis chronicity: chronic (3) HTN (hypertension) Current Visit: Yes Status: Acute Plan: He has never updated his medications with us. Will start him on amlodipine. With hydralazine. Has a history of lisinopril. However will hold off untill we know his kidney status. (4) History of CVA with residual deficit Current Visit: Yes Status: Acute Plan: Will keep him on fall precautions. Check lipid profile. Start a statin when he is more stable. (5) Non compliance w medication regimen Current Visit: Yes Status: Acute Plan: Is this due to communitcation or lack of insight. He cannot give a satisfactory answer why he did not come in . The patient was to see Dr. Beach after his stroke. He does have difficulty getting around and relies on others for rides to his appointments. May need to have a social service consult or home health agency on discharge. Discharge Plan: Home Plan to discharge in: Greater than 2 days - Advance Directives Does patient have a Living Will: No Does patient have a Durable POA for Healthcare: No - Code Status/Comfort Care Code Status Assessed: Yes Code Status: Full Code Physician Review: Patient Assessed, Agree with Above Assessment and Plan Critical Care: No Time Spent Managing Pts Care (In Minutes): 70
[2019-05-28] MEDS ORDERED: IBUPROFEN 200 MG TAB PO PRN (15:42)
[2019-05-28 15:54] LABS: Absolute Lymphocytes (CBC) 1.3 K/uL (0.7-4.9); Basophils % 1.4 % (0-1.3); Hematocrit 40.9 % (39.6-49.0); Lymphocytes % 16.5 % (15.3-44.8); MPV 8.9 fL (7.6-11.3)
[2019-05-28 15:57] LABS: Protime INR 0.96
[2019-05-28 16:05] LABS: Albumin 2.1 g/dL (3.4-5.0); Bilirubin Total 0.3 mg/dL (0.2-1.0); Protein, Total 5.6 g/dL (6.4-8.2)
--- NOTE | 2019-05-28 16:27 | RAD REPORT ---
EXAM DESCRIPTION: Louis Pa And Lat (2 Views)05/28/2019 4:09 pm CLINICAL HISTORY: Shortness of breath COMPARISON: None FINDINGS: Mild right basilar opacity Remainder lungs appear clear. Heart is normal size IMPRESSION: Mild right basilar opacity may represent atelectasis and/or small pleural effusion
--- NOTE | 2019-05-28 16:28 | RAD REPORT ---
EXAM DESCRIPTION: RAD - Abdomen W Erect - 05/28/2019 4:09 pm CLINICAL HISTORY: Abdominal pain FINDINGS: Free air is not seen beneath the diaphragm. The bowel gas pattern is unremarkable No significant abnormal calcification is displayed
[2019-05-28] MEDS: ENOXAPARIN 30 MG/0.3 ML SQ SCH (16:48)
[2019-05-28] MEDS: TRAMADOL HCL 50 MG TAB PO PRN (21:16)
[2019-05-28] MEDS: FUROSEMIDE 40 MG/4 ML VIAL IV SCH (21:16)
[2019-05-29 05:50] LABS: Absolute Lymphocytes (CBC) 1.4 K/uL (0.7-4.9); Basophils % 1.4 % (0-1.3); Hematocrit 36.5 % (39.6-49.0); Lymphocytes % 26.1 % (15.3-44.8); MPV 8.6 fL (7.6-11.3); RBC Red Blood Cell Count 4.23 M/uL (4.33-5.43)
[2019-05-29 06:11] LABS: Albumin 1.8 g/dL (3.4-5.0); Bilirubin Total 0.4 mg/dL (0.2-1.0); Ferritin 104.7 ng/mL (26-388); Magnesium 2.1 mg/dL (1.8-2.4); Potassium 3.9 mmol/L (3.5-5.1); Protein, Total 4.9 g/dL (6.4-8.2)
[2019-05-29 06:22] LABS: Thyroid Stimulating Hormone 9.06 uIU/mL (0.360-3.740)
--- NOTE | 2019-05-29 08:06 | CON ---
Date of Consultation: 05/28/[address] Hamilton's service on 05/28/2019. The patient was seen on 05/28/2019. Reason For Consultation: Anasarca. History Of Present Illness: Mr. Renee is a 58-year-old male with history of hypertension, dyslipide mario, CVA, fall, and hepatitis C. Apparently has been rather noncompliant with his medical care. Cam e into Dr. Hamilton's office with severe edema in the lower extremities. He was admitted to rule out fo r congestive heart failure and for treatment. Patient had shortness of breath, pedal edema, and orth opnea. No palpitations. He has had some atypical chest pain. No nausea, vomiting, or diaphoresis. Denied any syncope. He fell. Had multiple injuries from his fall. No fractures. Denied any recen t fever or chills. Past Medical History: Stated above. Allergies: NONE. Review of Systems: Negative. Social History: Positive for tobacco. Family History: Negative. Medications: At home include aspirin, Plavix, Lipitor, Norvasc, lisinopril, and fish oil. Physical Examination: Vital Signs: He weighed 219 pounds. Blood pressure was 194/97. HEENT: Negative. Neck: Supple with no bruit. Chest: Clear. Cardiac: Revealed a regular rhythm and rate with S4 gallops. No murmurs or rubs. Abdomen: Obese, but benign. Extremities: Revealed 2+ edema throughout. Diagnostic Data: His troponin was 0.06, otherwise was fairly unremarkable. Impression And Plan: Possible diastolic congestive heart failure, most likely acute. He is on appro priate therapy with Lasix. He is also on lisinopril. We can certainly increase the dose of lisinopr il and changed to Norvasc or beta-blayne. I will discontinue his ibuprofen. I agree with the [facility] ardiogram. Continue the Lipitor for his dyslipidemia. Continue the Plavix for his history of CVA. I will continue to follow along with Dr. Hamilton. We will see what the echo shows. Mr. Renee had gai elma 24 pounds since early April. We will watch his weight, I's and O's, creatinine, and electrolytes as we diurese him well. NB/MODL Voice ID: [id number] Report ID: [id number]
--- NOTE | 2019-05-29 08:35 | RAD REPORT ---
EXAM DESCRIPTION: US - Abdomen Exam Complete - 05/29/2019 7:29 am CLINICAL HISTORY: Abdominal pain or hepatitis-C COMPARISON: none FINDINGS: The liver has an increased echotexture with prominence of the caudate and left lobes. Hepa topetal flow. . Gallbladder is contracted and filled with stones. This makes evaluation of the gallbladder wall diffi cult but the wall probably is not thickened. Common bile duct normal caliber. The pancreas was not well visualized secondary overlying bowel gas but appears grossly normal. The right kidney measures 12 centimeters with a normal echotexture. The left kidney measures 12 centimeters with a normal echotexture. The spleen measures 17 centimeters. The proximal abdominal aorta appears normal. The remainder of the abdominal aorta and IVC poorly seen secondary to overlying bowel gas Small to moderate non ascites IMPRESSION: Cirrhosis Moderate splenomegaly Small to moderate amount of ascites Cholelithiasis
[2019-05-29] MEDS: PANTOPRAZOLE 40MG TABLET PO SCH (08:59)
[2019-05-29] MEDS: AMLODIPINE 5 MG TAB PO SCH (08:59)
[2019-05-29] MEDS: DOCOSAHEXANOIC AC/EPA 1000 MG PO SCH (08:59)
[2019-05-29] MEDS: FUROSEMIDE 40 MG/4 ML VIAL IV SCH ×2 (09:00→20:21)
[2019-05-29] MEDS ORDERED: POTASSIUM CL SA 10 MEQ TAB PO ONE (09:00)
[2019-05-29] MEDS: LISINOPRIL 20 MG TAB PO SCH (09:00)
[2019-05-29] MEDS: TRAMADOL HCL 50 MG TAB PO PRN ×2 (09:03→20:20)
--- NOTE | 2019-05-29 10:10 | P.PN ---
Subjective Date of Service: 05/29/19 Primary Care Provider: Joy Chief Complaint: Anasarca Subjective: No new changes states he has had paracentesis in the past. This is new information. Review of Systems 10-point ROS is otherwise unremarkable General: Weakness Cardiovascular: Edema Gastrointestinal: Diarrhea, Distention Physical Examination - Vital Signs Temperature: 97.3 F Blood Pressure: 187/97 Pulse: 56 Respirations: 18 Pulse Ox (%): 96 - Physical Exam General: Alert, In no apparent distress HEENT: Atraumatic, PERRLA, EOMI Neck: Supple, JVD not distended Respiratory: Clear to auscultation bilaterally, Normal air movement Cardiovascular: Regular rate/rhythm, Normal S1 S2, Edema (2+) Gastrointestinal: Normal bowel sounds, Ascites Musculoskeletal: No tenderness Integumentary: No rashes Neurological: Normal speech, Normal tone, Normal affect Lymphatics: No axilla or inguinal lymphadenopathy - Studies Laboratory Data (last 24 hrs) 05/29/19 06:00: Sodium Cancelled, Potassium Cancelled, BUN Cancelled, Creatinine Cancelled, Glucose Cancelled, Magnesium Cancelled, Total Bilirubin Cancelled, AST Cancelled, ALT Cancelled, Alkaline Phosphatase Cancelled 05/29/19 06:00: WBC Cancelled, Hgb Cancelled, Hct Cancelled, Plt Count Cancelled 05/29/19 05:12: WBC 5.3 D, Hgb 12.5 L, Hct 36.5 L, Plt Count 185 05/29/19 05:12: Sodium 147 H, Potassium 3.9, BUN 28 H, Creatinine 0.89, Glucose 87, Magnesium 2.1, Total Bilirubin 0.4, AST 63 H, ALT 40, Alkaline Phosphatase 69, Triglycerides 145, Cholesterol 118, HDL Cholesterol 29 L, Cholesterol/HDL Ratio 4.07 05/28/19 15:55: Troponin I 0.06 H 05/28/19 15:25: Sodium 145, Potassium 4.0, BUN 29 H, Creatinine 1.12, Glucose 91 , Total Bilirubin 0.3, AST 73 H, ALT 43, Alkaline Phosphatase 81 05/28/19 15:25: PT 11.3, INR 0.96, APTT 28.5 05/28/19 15:25: WBC 7.8, Hgb 13.8, Hct 40.9, Plt Count 202 Assessment & Plan - Problems (Diagnosis) (1) Anasarca Current Visit: Yes Status: Acute Plan: Will admit him I's and O's daily. Will start lasix. Get an echocardiogram. Will consult cardiology. May need nephrology on board to help with the diuresis. Will try to get a paracentesis today. (2) Hepatitis C Current Visit: Yes Status: Acute Plan: Patient has not been very compliant. He has not followed up or done the outpatient work up. Will see if we can get it done in house. Consult Dr. Ventura. Qualifiers: Viral hepatitis chronicity: chronic (3) HTN (hypertension) Current Visit: Yes Status: Acute Plan: He has never updated his medications with us. Will start him on amlodipine. With hydralazine. Has a history of lisinopril. However will hold off untill we know his kidney status. (4) History of CVA with residual deficit Current Visit: Yes Status: Acute Plan: Will keep him on fall precautions. Check lipid profile. Start a statin when he is more stable. (5) Non compliance w medication regimen Current Visit: Yes Status: Acute Plan: Is this due to communitcation or lack of insight. He cannot give a satisfactory answer why he did not come in . The patient was to see Dr. Beach after his stroke. He does have difficulty getting around and relies on others for rides to his appointments. May need to have a social service consult or home health agency on discharge. Discharge Plan: Home Plan to discharge in: Greater than 2 days - Code Status/Comfort Care Code Status Assessed: No Physician Review: Patient Assessed, Agree with Above Assessment and Plan Critical Care: No Time Spent Managing Pts Care (In Minutes): 20
--- NOTE | 2019-05-29 11:25 | RAD REPORT ---
EXAM DESCRIPTION: US - Paracentesis Proc Guidance - 05/29/2019 10:53 am CLINICAL HISTORY: Liver disease with ascites FINDINGS: The risks, benefits and alternatives to the procedure were explained to the patient and in formed consent obtained. The skin and subcutaneous tissues were anesthetized with Lidocaine. Under sonographic guidance an 8 F rench catheter was placed into the right lower quadrant. 4 liters of yellow fluid was removed and sen t to the lab. The patient experienced no immediate complication. IMPRESSION: Paracentesis
[2019-05-29 12:15] LABS: Body Fluid WBC 394 /mm^3
[2019-05-29 13:13] LABS: Appearance SLT. TURBID (CLEAR); Body Fluid Source PLEURAL; Color of fluid Yellow (COLORLESS)
[2019-05-29] MEDS: ENOXAPARIN 30 MG/0.3 ML SQ SCH (16:37)
--- NOTE | 2019-05-29 16:48 | ECHO ---
HEIGHT: 5 ft 9 in WEIGHT: 219 lb 0 oz DATE OF STUDY: 05/29/[address]: Nito Hamilton MD 2-DIMENSIONAL: YES M.MODE: YES DOPPLER: YES COLOR FLOW: YES TDS: NO PORTABLE: NO DEFINITY: NO BUBBLE STUDY: NO DIAGNOSIS: ANASARCA CARDIAC HISTORY: CATHERIZATION: NO SURGERY: NO PROSTHETIC VALVE: NO PACEMAKER: NO MEASUREMENTS (cm) DIASTOLIC (NORMALS) SYSTOLIC (NORMALS) IVSd 1.0 (0.6-1.2) LA Diam 3.8 (1.9-4.0) LVEF 74% LVIDd 4.8 (3.5-5.7) LVIDs 2.7 (2.0-3.5) %FS 43% LVPWd 1.1 (0.6-1.2) Ao Diam 3.2 (2.0-3.7) 2 DIMENSIONAL ASSESSMENT: RIGHT ATRIUM: NORMAL LEFT ATRIUM: NORMAL RIGHT VENTRICLE: NORMAL LEFT VENTRICLE: NORMAL TRICUSPID VALVE: NORMAL MITRAL VALVE: NORMAL PULMONIC VALVE: NORMAL AORTIC VALVE: NORMAL PERICARDIAL EFFUSION: NONE AORTIC ROOT: NORMAL LEFT VENTRICULAR WALL MOTION: NORMAL. DOPPLER/COLOR FLOW: TRACE TRICUSPID AND MITRAL REGURGITATION. COMMENTS: TRACE MITRAL AND TRICUSPID REGURGITATION. NORMAL LEFT VENTRICULAR EJECTION FRACTION AND SIZE. NO WALL MOTION ABNORMALITIES. TECHNOLOGIST: JENNIFER MART
[2019-05-30] MEDS: TRAMADOL HCL 50 MG TAB PO PRN ×3 (04:56→17:24)
--- NOTE | 2019-05-30 06:36 | PN ---
Date of Progress Note: 05/29/2019 Mr. Renee was admitted by Dr. Hamilton for anasarca. He received IV 40 mg of Lasix twice a day since h e has been here. His edema has improved, but is still there. He denied any chest pain, shortness of breath. Today, denied any PND as well. He still has some orthopnea. His echocardiogram however sh owed perfectly normal ejection fraction without any systolic or diastolic congestive heart failure. I think we need to change his Norvasc as stated earlier to a beta-blayne. He needs to follow a salt restricted diet. I think some of his edema may have something to do with his liver disease. Certai chitray, considering Aldactone may be an option. I think it would be reasonable for him to have an outpa tient stress test down the road to rule out coronary artery disease. The case was discussed with his primary care physician. He can go home whenever it is okay with him. I will see him in the office in the next 2-4 weeks. VALENTINA/ELAINA Voice ID: [id number] Report ID: [id number]
[2019-05-30 06:48] LABS: Albumin 1.9 g/dL (3.4-5.0); Bilirubin Total 0.4 mg/dL (0.2-1.0)
[2019-05-30 06:58] LABS: Absolute Lymphocytes (CBC) 1.4 K/uL (0.7-4.9); Hematocrit 37.1 % (39.6-49.0); Lymphocytes % 27.2 % (15.3-44.8); MPV 8.7 fL (7.6-11.3); RBC Red Blood Cell Count 4.32 M/uL (4.33-5.43)
[2019-05-30] MEDS: PANTOPRAZOLE 40MG TABLET PO SCH (08:28)
[2019-05-30] MEDS: DOCOSAHEXANOIC AC/EPA 1000 MG PO SCH (08:28)
[2019-05-30] MEDS: LISINOPRIL 20 MG TAB PO SCH (08:28)
[2019-05-30] MEDS: FUROSEMIDE 40 MG/4 ML VIAL IV SCH ×2 (08:29→20:54)
[2019-05-30] MEDS: AMLODIPINE 5 MG TAB PO SCH (08:29)
--- NOTE | 2019-05-30 12:33 | P.PN ---
Subjective Date of Service: 05/30/19 Primary Care Provider: Joy Chief Complaint: Anasarca Patient seen and examined at bedside with RN. Chart reviewed. Case discussed with cardiology at this point. Patient denies having any nausea vomiting abdominal pain. Status post paracentesis. Review of Systems 10-point ROS is otherwise unremarkable Physical Examination - Vital Signs Temperature: 97.2 F Blood Pressure: 168/93 Pulse: 70 Respirations: 16 Pulse Ox (%): 95 - Physical Exam General: Alert, In no apparent distress HEENT: Atraumatic, PERRLA, EOMI Neck: Supple, JVD not distended Respiratory: Clear to auscultation bilaterally, Normal air movement Cardiovascular: Regular rate/rhythm, Normal S1 S2 Gastrointestinal: Normal bowel sounds, Succussion splash, Tenderness Musculoskeletal: No tenderness Integumentary: No rashes Neurological: Normal speech, Normal tone, Normal affect Lymphatics: No axilla or inguinal lymphadenopathy - Studies Laboratory Data (last 24 hrs) 05/30/19 06:15: Sodium 143, Potassium 4.0, BUN 25 H, Creatinine 0.93, Glucose 95 , Total Bilirubin 0.4, AST 62 H, ALT 41, Alkaline Phosphatase 76 05/30/19 06:15: WBC 5.2, Hgb 12.8 L, Hct 37.1 L, Plt Count 183 05/30/19 05:00: Sodium Cancelled, Potassium Cancelled, BUN Cancelled, Creatinine Cancelled, Glucose Cancelled Medications List Reviewed: Yes Assessment And Plan - Current Problems (Diagnosis) (1) Anasarca Current Visit: Yes Status: Acute Plan: Patient with generalized anasarca admitted to the hospital for volume overload most likely secondary to liver cirrhosis -echocardiogram within normal limits -patient with massive ascites status post paracentesis now -will start patient on spironolactone at this time (2) Liver cirrhosis Current Visit: Yes Status: Acute Plan: Liver cirrhosis with ascites secondary to hepatitis-C -currently patient meld score is high with poor prognosis -will continue to monitor patient here closely -S/p Paracentesis Qualifiers: Hepatic cirrhosis type: unspecified hepatic cirrhosis Ascites presence: with ascites Qualified Code(s): K74.60 - Unspecified cirrhosis of liver; R18.8 - Other ascites (3) Hepatitis C Current Visit: Yes Status: Chronic Qualifiers: Viral hepatitis chronicity: chronic Hepatic coma status: without hepatic coma Qualified Code(s): B18.2 - Chronic viral hepatitis C (4) HTN (hypertension) Current Visit: Yes Status: Chronic Qualifiers: Hypertension type: essential hypertension Qualified Code(s): I10 - Essential (primary) hypertension (5) History of CVA with residual deficit Current Visit: Yes Status: Acute Discharge Plan: Home Plan to discharge in: Greater than 2 days - Code Status/Comfort Care Code Status Assessed: Yes Physician Review: Patient Assessed, Agree with Above Assessment and Plan Critical Care: No
--- NOTE | 2019-05-30 15:03 | PN ---
Mr. Renee has been in the hospital for anasarca. He had been receiving IV Lasix and has improved dr astically as far as the anasarca is concerned. Echocardiogram that was done yesterday showed normal ejection fraction, no wall motion abnormalities, no diastolic dysfunction. I feel that his edema may be mostly secondary due to his liver. Apparently, patient has been taking Naprosyn for many years a s well, and I think that may be an issue as far as his edema is concerned. Again, I would prefer boo t we will put him on spironolactone instead of Lasix and put him on a beta-blayne instead of Norvasc . Mr. Renee also had issues with orthostatic hypotension that should be addressed. He also has a h istory of bilateral carotid artery stenosis of 60%-70% that is being followed by Dr. Little. I will make arrangements for him to see him in the office as an outpatient. He has had negative stress jayla t in the past. He may require a carotid angiogram down the road. He has had a stroke in the past. He can go home whenever it is okay with admitting physicians. VALENTINA/ELAINA Voice ID: [id number] Report ID: [id number]
[2019-05-30] MEDS: ENOXAPARIN 30 MG/0.3 ML SQ SCH (16:09)
[2019-05-31 06:52] LABS: Absolute Lymphocytes (CBC) 1.7 K/uL (0.7-4.9); Basophils % 1.7 % (0-1.3); Hematocrit 37.9 % (39.6-49.0); Lymphocytes % 28.2 % (15.3-44.8); MPV 8.7 fL (7.6-11.3); RBC Red Blood Cell Count 4.41 M/uL (4.33-5.43)
[2019-05-31 06:56] LABS: Bilirubin Total 0.4 mg/dL (0.2-1.0); Protein, Total 5.4 g/dL (6.4-8.2)
[2019-05-31] MEDS: AMLODIPINE 5 MG TAB PO SCH (08:49)
[2019-05-31] MEDS: DOCOSAHEXANOIC AC/EPA 1000 MG PO SCH (08:49)
[2019-05-31] MEDS: LISINOPRIL 20 MG TAB PO SCH (08:49)
[2019-05-31] MEDS: TRAMADOL HCL 50 MG TAB PO PRN ×2 (08:50→20:52)
[2019-05-31] MEDS: PANTOPRAZOLE 40MG TABLET PO SCH (08:50)
[2019-05-31] MEDS: FUROSEMIDE 40 MG/4 ML VIAL IV SCH ×2 (08:51→20:43)
[2019-05-31] MEDS ORDERED: ALBUMIN HUMAN 25% 100 ML IV ONE (10:55)
--- NOTE | 2019-05-31 12:36 | RAD REPORT ---
EXAM DESCRIPTION: RAD - Chest Single View - 05/31/2019 11:14 am CLINICAL HISTORY: Routine, CHF Chest pain. COMPARISON: Chest Pa And Lat (2 Views) dated 05/28/2019 FINDINGS: Portable technique limits examination quality. Linear opacities are again seen in the right lung base, essentially unchanged. Trace right pleural fl uid is suspected. The left lung is grossly clear. The heart is mildly prominent size. No displaced fr actures. IMPRESSION: Stable chest.
[2019-05-31] MEDS: ENOXAPARIN 30 MG/0.3 ML SQ SCH (16:42)
--- NOTE | 2019-05-31 18:00 | P.PN ---
Subjective Date of Service: 05/31/19 Primary Care Provider: Joy Chief Complaint: Erikrca Patient has multiple complaints. Click in his chest, Dizziness since his stroke. Soreness in his left knee. These are all minor complaints Review of Systems 10-point ROS is otherwise unremarkable (see subjective text) Physical Examination - Vital Signs Temperature: 97.7 F Blood Pressure: 178/81 Pulse: 57 Respirations: 18 Pulse Ox (%): 95 - Physical Exam General: Alert, In no apparent distress HEENT: Atraumatic, PERRLA, EOMI Neck: Supple, JVD not distended Respiratory: Clear to auscultation bilaterally, Normal air movement Cardiovascular: Regular rate/rhythm, Normal S1 S2, Edema (1+) Gastrointestinal: Normal bowel sounds, No tenderness Musculoskeletal: No tenderness Integumentary: No rashes Neurological: Normal speech, Normal tone, Normal affect Lymphatics: No axilla or inguinal lymphadenopathy - Studies Laboratory Data (last 24 hrs) 05/31/19 06:09: Magnesium 2.2 05/31/19 06:09: Sodium 143, Potassium 4.0, BUN 23 H, Creatinine 0.90, Glucose 95 , Total Bilirubin 0.4, AST 65 H, ALT 45, Alkaline Phosphatase 82 05/31/19 06:04: WBC 5.9, Hgb 13.4 L, Hct 37.9 L, Plt Count 191 Medications List Reviewed: Yes Assessment & Plan - Problems (Diagnosis) (1) Anasarca Current Visit: Yes Status: Acute Plan: Will admit him I's and O's daily. has lost 13 lbs. Had 4 lts off. We can sen him home on lasix and spirnolactone. (2) Hepatitis C Current Visit: Yes Status: Chronic Plan: Patient has not been very compliant. He has not followed up or done the outpatient work up. Will see if we can get it done in house. Consult Dr. Ventura. Qualifiers: Viral hepatitis chronicity: chronic Hepatic coma status: without hepatic coma Qualified Code(s): B18.2 - Chronic viral hepatitis C (3) HTN (hypertension) Current Visit: Yes Status: Chronic Plan: He has never updated his medications with us. Will start him on amlodipine. With hydralazine. Has a history of lisinopril. However will hold off untill we know his kidney status. Qualifiers: Hypertension type: essential hypertension Qualified Code(s): I10 - Essential (primary) hypertension (4) History of CVA with residual deficit Current Visit: Yes Status: Acute Plan: Will keep him on fall precautions. Check lipid profile. Start a statin when he is more stable. (5) Non compliance w medication regimen Current Visit: Yes Status: Acute Plan: Is this due to communitcation or lack of insight. He cannot give a satisfactory answer why he did not come in . The patient was to see Dr. Beach after his stroke. He does have difficulty getting around and relies on others for rides to his appointments. May need to have a social service consult or home health agency on discharge. Discharge Plan: Home Plan to discharge in: 24 Hours - Code Status/Comfort Care Code Status Assessed: No Physician Review: Patient Assessed, Agree with Above Assessment and Plan Critical Care: No Time Spent Managing Pts Care (In Minutes): 30
[2019-05-31] MEDS: DICLOFENAC SOD D.R. 75 MG TAB PO SCH ×2 (18:30→20:34)
[2019-06-01] MEDS ORDERED: SPIRONOLACTONE 25 MG TABLET PO SCH (09:00)
--- NOTE | 2019-06-01 09:20 | P.DS ---
Admission Date: 05/28/19 Discharge Date: 06/01/19 Primary Care Provider: Joy Disposition: ROUTINE DISCHARGE Discharge Condition: FAIR Reason for Admission: Anasarca - Problems (1) Anasarca Current Visit: Yes Status: Acute (2) Hepatitis C Current Visit: Yes Status: Chronic Qualifiers: Viral hepatitis chronicity: chronic Hepatic coma status: without hepatic coma Qualified Code(s): B18.2 - Chronic viral hepatitis C (3) HTN (hypertension) Current Visit: Yes Status: Chronic Qualifiers: Hypertension type: essential hypertension Qualified Code(s): I10 - Essential (primary) hypertension (4) History of CVA with residual deficit Current Visit: Yes Status: Acute (5) Non compliance w medication regimen Current Visit: Yes Status: Acute Brief History of Present Illness: Patient is an office patient of [facility]. History of Hepatitis C, CVA with residual deficits, htn. He has been swelling for the past month per the patient. Did not follow up. Has also not been very compliant with Dr. Ventura 's order for work up and treatment of his hepatitis C. The patient feel yesterday and has a lot of injuries. This is what brought him into the office. States his knee gave out. Did not lose consciousness. He came in for this reason. He is very swollen. Upper and lower extremities as well as the abdomen. Has gained 24lbs since 04/16/19 when he was in the office last. Decision was made to admit the hospital for work up. Hospital Course: Patient was admitted for fluid overload. He had a paracentesis of 4 liters. He lost approx 13 lbs. So this was mostly fluid. He complained about several chronic aliments. Dizziness after his stroke, and left knee pain. Was not very concerned about the liver cirrhosis, which he had not reviled to me till this hospitalization. Will need to keep refocusing him back on the important problems of his hep C and history of CVA. Hopefully the patient will follow up with me and Dr. Ventura. He also has Dr. Dyer and Dr. Beach as established physicians. Vital Signs/Physical Exam: Temp Pulse Resp BP Pulse Ox 97.9 F 60 20 154/89 H 94 06/01/19 08:00 06/01/19 08:00 06/01/19 08:00 06/01/19 08:00 06/01/19 08:00 General: Alert, In no apparent distress HEENT: Atraumatic, PERRLA, EOMI Neck: Supple, JVD not distended Respiratory: Clear to auscultation bilaterally, Normal air movement Cardiovascular: Regular rate/rhythm, Normal S1 S2 Gastrointestinal: Normal bowel sounds, No tenderness Musculoskeletal: No tenderness Integumentary: No rashes Neurological: Normal speech, Normal tone, Normal affect Lymphatics: No axilla or inguinal lymphadenopathy Laboratory Data at Discharge: WBC 5.9 K/uL (4.3-10.9) 05/31/19 06:04 Hgb 13.4 g/dL (13.6-17.9) L 05/31/19 06:04 Hct 37.9 % (39.6-49.0) L 05/31/19 06:04 Plt Count 191 K/uL (152-406) 05/31/19 06:04 PT 11.3 SECONDS (9.5-12.5) 05/28/19 15:25 INR 0.96 05/28/19 15:25 APTT 28.5 SECONDS (24.3-36.9) 05/28/19 15:25 Sodium 143 mmol/L (136-145) 05/31/19 06:09 Potassium 4.0 mmol/L (3.5-5.1) 05/31/19 06:09 BUN 23 mg/dL (7-18) H 05/31/19 06:09 Creatinine 0.90 mg/dL (0.55-1.3) 05/31/19 06:09 Glucose 95 mg/dL (74-106) 05/31/19 06:09 Magnesium 2.2 mg/dL (1.8-2.4) 05/31/19 06:09 Total Bilirubin 0.4 mg/dL (0.2-1.0) 05/31/19 06:09 AST 65 U/L (15-37) H 05/31/19 06:09 ALT 45 U/L (12-78) 05/31/19 06:09 Alkaline Phosphatase 82 U/L (45-117) 05/31/19 06:09 Troponin I 0.06 ng/mL (0.0-0.045) H 05/28/19 15:55 Triglycerides 145 mg/dL (<150) 05/29/19 05:12 Cholesterol 118 mg/dL (<200) 05/29/19 05:12 HDL Cholesterol 29 mg/dL (40-60) L 05/29/19 05:12 Cholesterol/HDL Ratio 4.07 05/29/19 05:12 Home Medications: Amlodipine [Norvasc] 5 mg PO DAILY 05/28/19 Atorvastatin Calcium [Lipitor] 20 mg PO BEDTIME 05/28/19 Clopidogrel Bisulfate [Plavix] 75 mg PO DAILY 05/28/19 Docosahexanoic AC/Epa [Fish Oil 1,000 MG CAP] 1,000 mg PO DAILY 05/28/19 Lisinopril [Prinivil] 20 mg PO DAILY 05/28/19 Furosemide [Lasix] 40 mg PO DAILY #20 tablet 06/01/19 Spironolactone 50 mg PO DAILY #90 tablet 06/01/19 New Medications: Furosemide [Lasix] 40 mg PO DAILY #20 tablet Spironolactone 50 mg PO DAILY #90 tablet Diet: Renal Activity: Ad carolyn Time spent managing pt's care (in minutes): 30
[2019-06-01] MEDS: DICLOFENAC SOD D.R. 75 MG TAB PO SCH (09:32)
[2019-06-01] MEDS: LISINOPRIL 20 MG TAB PO SCH (09:33)
[2019-06-01] MEDS: DOCOSAHEXANOIC AC/EPA 1000 MG PO SCH (09:33)
[2019-06-01] MEDS: PANTOPRAZOLE 40MG TABLET PO SCH (09:33)
[2019-06-01] MEDS: AMLODIPINE 5 MG TAB PO SCH (09:34)
[2019-06-01] MEDS: FUROSEMIDE 40 MG/4 ML VIAL IV SCH (09:34)
[2019-06-02 03:45] LABS: HBsAG Nonreactive (Nonreactive)
[2019-06-02 14:50] LABS: Hepatitis C Virus RNA (PCR)log 6.75 log IU/mL
[2019-06-02 19:05] LABS: Alpha Fetoprotein-Tumor Marker 11.1 ng/mL (<6.1)
== END 2019-06-01 13:40 | disposition home or self-care (01) | DRG 641 ==
LOC: 2ND 14:43
PROVIDERS: ADMIT Internal Medicine; ATTEND Internal Medicine
PROC: 0W9G3ZZ Drainage of Peritoneal Cavity, Percutaneous Approach (ICD-10-PCS; principal; 2019-05-29)
DX: E87.70 Fluid overload, unspecified (principal); R18.8 Other ascites; K74.60 Unspecified cirrhosis of liver; B18.2 Chronic viral hepatitis C; Z91.19 Patient's noncompliance with other medical treatment and regimen; I69.398 Other sequelae of cerebral infarction; R42 Dizziness and giddiness; I10 Essential (primary) hypertension; E78.5 Hyperlipidemia, unspecified; F17.210 Nicotine dependence, cigarettes, uncomplicated
CPT/HCPCS: 36415; 49083; 71045; 71046; 74019; 76700; 80053; 80061; 80074; 82103; 82105; 82140; 82390; 82728; 83540; 83735; 84134; 84439; 84443; 84466; 84484; 85025; 85610; 85730; 86038; 86255; 86704; 87040; 87070; 87520; 87522; 89050; 93306; J1650; J1940; P9047

== ENCOUNTER 2019-07-30 08:12 | Day surgery (SDC) | payer OTHER ==
--- OUTSIDE RECORDS SUMMARY | 2019-07-30 08:16 | XMS REPORT | Continuity of Care Document ---
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 Hyperlipidemia, 01/25/2019 [facility] unspecified Medical Center Facial weakness 01/25/2019 [facility] Nicotine 01/25/2019 [facility] dependence, Medical cigarettes, Center uncomplicated Personal history 01/25/2019 [facility] of transient Medical ischemic attack , Center and cerebral infarction without residual deficits Patient's other 01/25/2019 [facility] noncompliance Medical with medication Center regimen OTHER CEREBRAL Active [facility] INFARCTION Medical Center Medications Medication Details Route Status Patient Ordering Order Source Instructions Provider Date amLODIPine 5 mg 5 mg=1 tab, Active [facility] oral tablet PO, Daily, # 018 Medical 30 tab, 2 Center Refill(s) lisinopril 20 mg 20 mg=1 tab, Active [facility] oral tablet PO, Daily, # 018 Medical 30 tab, 2 Center Refill(s) clopidogrel 75 75 mg=1 tab, Active [facility] mg oral tablet PO, Daily, # 018 Medical 30 tab, 2 Center Refill(s) atorvastatin 20 20 mg=1 tab, Active [facility] [place] mg oral tablet PO, Bedtime, 018 Medical # 30 tab, 2 Center Refill(s) Aspirin 325 MG 325 mg=1 tab, Active [facility] Enteric Coated PO, Daily, # 018 Medical Tablet 30 tab, 2 Center Refill(s) Lisinopril 20 mg, 1 tab, Inactive [facility] Route: PO, 018 Medical Drug form: Center TAB, Daily, Dosing Weight 88.636, kg, Start date: 07/08/18 12:00:00 CDT, Duration: 30 day, Stop date: 08/07/18 9:00:00 CDTNotes: (Same as: Prinivil, Zestril) Docusate Sodium 1 tab, Route: No Longer [facility] 50 MG / PO, Drug Active 018 Medical sennosides, PRISON Form: TAB, Center 8.6 MG Oral Dosing Weight Tablet 88.636, kg, BID, Start date: 07/07/18 17:00:00 CDT, Duration: 30 day, Stop date: 08/06/18 9:00:00 CDTNotes: (Same as Senokot-S) Equiv. to Anai-Colace. Tramadol 50 mg, 1 tab, No Longer [facility] Route: PO, Active [facility] Drug form: [place] TAB, Q6H, Dosing Weight 88.636, kg, PRN Pain Score 6-10, Start date: 07/07/18 13:07:00 CDT, Duration: 5 day, Stop date: 07/12/18 13:06:00 CDTNotes: Not to exceed 400mg/day. (Same As: Ultram) Midazolam 2 mg, Route: Inactive [facility] IVP, ONCE, 018 Medical Dosing Weight Center 88.636, kg, Start date: 07/07/18 13:04:00 CDT, Stop date: 07/07/18 13:04:00 CDT Fentanyl 100 Inactive [facility] microgram, 018 Medical Route: IV, Center ONCE, Dosing Weight 88.636, kg, Start date: 07/07/18 13:04:00 CDT, Stop date: 07/07/18 13:04:00 CDT Omnipaque 300 150 mL, Inactive [facility] Route: 018 Medical INTRAARTERIAL Center , Dosing Weight 88.636, kg, ONCE, Start date: 07/07/18 13:04:00 CDT, Stop date: 07/07/18 13:04:00 CDT captopril 25 mg, 1 tab, No Longer [facility] Route: PO, Active 018 Medical Drug form: Center TAB, Q8H, Start date: 07/07/18 12:25:00 CDT, Duration: 30 day, Stop date: 08/06/18 8:00:00 CDTNotes: Give on empty stomach. 1 hour before meal. (Same As: Capoten) remove patch 1 patch, No Longer [facility] [place] Route: TOP, Active 018 Medical Bedtime, Drug Center form: ERFILM, Start date: 07/06/18 21:00:00 CDT, Duration: 30 day, Stop date: 08/04/18 21:00:00 CDTNotes: Remove patch 12 hours after application each day. remove patch 1 patch, No Longer [facility] Route: TOP, Active 018 Medical Drug form: [...] Amlodipine 5 mg, 1 tab, No Longer [facility] [place] Route: PO, Active 018 Medical Drug form: Center TAB, Daily, Dosing Weight 88.636, kg, Start date: 07/06/18 8:03:00 CDT, Duration: 30 day, Stop date: 08/04/18 9:00:00 CDT Tylenol 650 mg, 2 No Longer [facility] tab, Route: Active 018 Medical PO, Drug Center form: TAB, Q6H, Dosing Weight 88.636, kg, PRN Pain 1-3/Temp > 100.4 F, Start date: 07/06/18 2:07:00 CDT, Duration: 30 day, Stop date: 08/05/18 2:06:00 CDTNotes: Do not exceed 4 gm/day. (Same as: Tylenol) Spironolactone 25 mg=2 tab, No Longer [facility] PO, Daily, # Active 018 Medical 60 tab, 0 Center Refill(s) Furosemide Daily, 0 No Longer [facility] Refill(s) Active 018 [facility] Center amLODIPine 10 mg 20 mg=2 tab, No Longer [facility] oral tablet PO, QAM, 0 Active 018 Medical Refill(s) Center Nicotine 21 mg, 1 No Longer [facility] patch, Route: Active 018 Medical TOP, Drug Center form: ERFILM, Daily, Dosing Weight 88.636, kg, Start date: 07/05/18 9:00:00 CDT, Duration: 30 day, Stop date: 08/03/18 9:00:00 CDTNotes: (Same as: Habitrol) "Remove old patch before application of new patch" WASTE: F/P - P Waste Black; E - P Waste Black Plavix 75 mg, 1 tab, No Longer [facility] Route: PO, Active 018 Medical Drug form: Center TAB, Daily, Dosing Weight 88.636, kg, Start date: 07/05/18 9:00:00 CDT, Stop date: 08/03/18 9:00:00 CDTNotes: (Same As: Plavix) Aspirin 81 MG 81 mg, 1 tab, No Longer [facility] [place] Enteric Coated Route: PO, Active 018 Medical Tablet Drug form: [place] ECTAB, Daily, Dosing Weight 88.636, kg, Start date: 07/05/18 8:00:00 CDT, Duration: 30 day, Stop date: 08/03/18 9:00:00 CDTNotes: Do not crush or chew. (Same As: Ecotrin) Saline Flush 10 ml, Route: No Longer [facility] 0.9% IVP, Drug Active 018 Medical Form: INJ, [place] Dosing Weight 88.636, kg, Q12H, Start date: 07/04/18 21:00:00 CDT, Duration: 30 day, Stop date: 08/03/18 9:00:00 CDTNotes: (Same as: BD Posiflush) atorvastatin 20 mg, 1 tab, No Longer [facility] Route: PO, Active 018 Medical Drug form: [place] TAB, Bedtime, Dosing Weight 88.636, kg, Start date: 07/04/18 21:00:00 CDT, Duration: 30 day, Stop date: 08/02/18 21:00:00 CDTNotes: (Same As: Lipitor) sennosides, PRISON 8.6 mg, 1 No Longer [facility] tab, Route: Active 018 Medical PO, Drug Center Form: TAB, Dosing Weight 88.636, kg, BID, PRN Constipation, Start date: 07/04/18 17:46:00 CDT, Duration: 30 day, Stop date: 08/03/18 17:45:00 CDTNotes: (Same as: Senokot) Plavix 600 mg, 2 Inactive [facility] tab, Route: 018 Medical PO, Drug Center form: TAB, ONCE, Dosing Weight 88.636, kg, Start date: 07/04/18 16:26:00 CDT, Stop date: 07/04/18 16:26:00 CDTNotes: ( Same as: Plavix) Aspirin 325 MG 325 mg, 1 Inactive [facility] Oral Tablet tab, Route: 018 Medical PO, Drug Center form: TAB, ONCE, Dosing Weight 88.636, kg, Priority: STAT, Start date: 07/04/18 16:26:00 CDT, Stop date: 07/04/18 16:26:00 CDTNotes: Take with food. heparin 5,000 unit, 1 No Longer [facility] mL, Route: Active 018 Medical SUB-Q, Drug Center form: INJ, Q8H, Dosing Weight 88.636, kg, (For patients weighing Notes: porcine heparin iodixanol 100 mL, Inactive [facility] Route: IVP, 018 Medical Drug Form: [place] SOLN, Dosing Weight 88.636, kg, ONCALL, STAT, Start date: 07/04/18 15:05:00 CDT, Duration: 1 doses or times, Dose=2.2ml/kg , Max [id number] -- "To be infused by Radiology Staff ONLY" Saline Flush 10 ml, Route: No Longer [facility] 0.9% IVP, Drug Active 018 Medical Form: INJ, [place] Dosing Weight 88.636, kg, PRN, PRN Line Flush, Start date: 07/04/18 15:01:00 CDT, Duration: 30 day, Stop date: 08/03/18 15:00:00 CDTNotes: (Same as: BD Posiflush) Hydralazine 10 mg, 0.5 No Longer [facility] mL, Route: Active 018 Medical IVP, Drug Center form: INJ, Q6H, Dosing Weight 88.636, kg, PRN Hypertension, Start date: 07/04/18 15:01:00 CDT, Duration: 30 day, Stop date: 08/03/18 15:00:00 CDTNotes: (Same as: Apresoline) Push over 5 minutes Labetalol 10 mg, 2 mL, No Longer [facility] [place] Route: IVP, Active 018 Medical Drug form: [place] INJ, Q15Min, Dosing Weight 88.636, kg, PRN Hypertension, Start date: 07/04/18 15:01:00 CDT, Duration: 30 day, Stop date: 08/03/18 15:00:00 CDT Ondansetron 4 mg, 2 mL, No Longer [facility] Route: IVP, Active 018 Medical Drug form: Center INJ, Q8H, Dosing Weight 88.636, kg, PRN Nausea & Vomiting, Start date: 07/04/18 15:01:00 CDT, Duration: 30 day, Stop date: 08/03/18 15:00:00 CDTNotes: (Same as: Zofran) MEDICATION WASTE Product Size: 4 mg Product Wasted: ___ mg Sodium Chloride 1,000 mL, No Longer [facility] 0.9% IV 1,000 mL Rate: 100 Active 018 Medical ml/hr, Infuse Center over: 10 hr, Route: IV, Dosing Weight 88.636 kg, Total Volume: 1,000, Start date: 07/04/18 15:01:00 CDT, Duration: 30 day, Stop date: 08/03/18 15:00:00 CDT, 2.11, m2 Saline Flush 10 mL, Route: No Longer [facility] 0.9% MISC, Drug Active 018 Medical Form: [...] Magnesium Lvl 2.3 1.8 - 2.4 07/08 [facility] CHEM PANEL Phosphorus 3.8 2.5 - 4.5 07/08 [facility] CHEM PANEL eGFR 106 07/08 Result Comment: [...] Potassium Lvl 3.7 3.5 - 5.1 07/[address] CHEM PANEL Sodium Lvl 140 135 - 145 07/[address] CHEM PANEL Creatinine 0.65 0.50 - 07/08 [facility] Lvl 1.40 [facility] CHEM PANEL Chloride Lvl 108 95 - 109 07/[address] CHEM PANEL Calcium Lvl 8.1 8.5 - 10.5 07/[address] CHEM PANEL CO2 24 24 - 32 07/[address] CHEM PANEL BUN 12 7 - 22 07/[address] CHEM PANEL Glucose Lvl 116 70 - 99 07/[address] CHEM PANEL AGAP 11.7 10.0 - 07/08 [facility] 20.0 2017 [facility] HEMATOLOGY Basophils # 0.1 0.0 - 0.2 07/[address] HEMATOLOGY Eosinophils # 0.2 0.0 - 0.5 07/[address] HEMATOLOGY Monocytes # 0.5 0.0 - 0.8 07/[address] HEMATOLOGY Lymphocytes # 1.4 1.0 - 5.5 07/[address] HEMATOLOGY Neutrophils # 4.3 1.5 - 8.1 07/[address] HEMATOLOGY Monocytes 7.7 2.0 - 12.0 07/[address] HEMATOLOGY Lymphocytes 21.2 20.0 - 07/08 [place] 40.0 2017 [facility] HEMATOLOGY Eosinophils 2.4 0.0 - 4.0 07/[address] HEMATOLOGY Basophils 1.3 0.0 - 1.0 07/[address] HEMATOLOGY Segs 67.4 45.0 - 07/08 [place] 75.0 [facility] HEMATOLOGY Hct 41.7 42.0 - 07/08 [place] 54.0 [facility] HEMATOLOGY MCV 91.7 80.0 - 07/08 [facility] 94.0 [facility] HEMATOLOGY WBC 6.4 3.7 - 10.4 07/08 [facility] HEMATOLOGY MCHC 35.6 32.0 - 07/08 [place] 36.0 [facility] HEMATOLOGY RBC 4.54 4.70 - 07/08 [place] 6.10 [facility] HEMATOLOGY Hgb 14.8 14.0 - 07/08 [place] 18.0 [facility] HEMATOLOGY MPV 8.1 7.4 - 10.4 07/08 [facility] HEMATOLOGY Platelet 134 133 - 450 07/08 [facility] HEMATOLOGY RDW 13.9 11.5 - 07/08 [place] 14.5 [facility] HEMATOLOGY MCH 32.6 27.0 - 07/08 [place] 31.0 [facility] PARATHYROID Ca Ion WB 1.08 1.05 - 07/08 [facility] PROFILE 1. [facility] PARATHYROID Ca Norm WB 1.10 1.05 - 07/08 [facility] PROFILE 1. [facility] BLOOD BANK ABO/Rh A POS 07/07 [facility] RESULTS /2017 [facility] BLOOD BANK Antibody Scrn Negative 07/07 [facility] RESULTS (07/07/18 12:01 AM) [facility] CHEM PANEL Phosphorus 2.6 2.5 - 4.5 07/07 [facility] CHEM PANEL Magnesium Lvl 2.2 1.8 - 2.4 07/07 [facility]2017 [facility] ELECTROLYTE AGAP 14.0 10.0 - 07/07 [facility] S 20.0 [facility] ELECTROLYTE eGFR 97 07/07 Result [facility] Comment: The Medical eGFR is Center calculated [...] Potassium Lvl 4.0 3.5 - 5.1 07/[address] ELECTROLYTE Chloride Lvl 110 95 - 109 07/[address] ELECTROLYTE BUN 17 7 - 22 07/[address] ELECTROLYTE Sodium Lvl 142 135 - 145 07/[address] ELECTROLYTE Glucose Lvl 97 70 - 99 07/[address] ELECTROLYTE Creatinine 0.82 0.50 - 07/07 [facility] Lvl 1.40 [facility] ELECTROLYTE CO2 22 24 - 32 07/[address] ELECTROLYTE Calcium Lvl 8.0 8.5 - 10.5 07/[address] HEMATOLOGY Lymphocytes 23.2 20.0 - 07/07 [facility] [address] HEMATOLOGY Segs 64.9 45.0 - 07/07 [facility] [address] HEMATOLOGY Eosinophils # 0.2 0.0 - 0.5 07/[address] HEMATOLOGY Basophils # 0.1 0.0 - 0.2 07/[address] HEMATOLOGY Basophils 1.3 0.0 - 1.0 07/[address] HEMATOLOGY Neutrophils # 4.0 1.5 - 8.1 07/[address] HEMATOLOGY Monocytes 8.0 2.0 - 12.0 07/[address] HEMATOLOGY Eosinophils 2.6 0.0 - 4.0 07/[address] HEMATOLOGY Lymphocytes # 1.4 1.0 - 5.5 07/[address] HEMATOLOGY Monocytes # 0.5 0.0 - 0.8 07/[address] HEMATOLOGY Platelet 128 133 - 450 07/[address] HEMATOLOGY MPV 8.3 7.4 - 10.4 07/[address] HEMATOLOGY RDW 14.2 11.5 - 07/07 [facility] 14.5 [facility] HEMATOLOGY MCV 93.2 80.0 - 07/07 [place] 94.0 /2017 [facility] HEMATOLOGY MCH 32.3 27.0 - 07/07 [facility] 31.0 [facility] HEMATOLOGY Hgb 14.6 14.0 - 07/07 [facility] 18.0 [facility] HEMATOLOGY Hct 42.2 42.0 - 07/07 [facility] 54.0 [facility] HEMATOLOGY MCHC 34.7 32.0 - 07/07 [facility] 36.0 [facility] HEMATOLOGY RBC 4.53 4.70 - 07/07 [facility] 6.10 /2017 [facility] HEMATOLOGY WBC 6.1 3.7 - 10.4 07/07 [facility] HEMATOLOGY PT 12.3 12.0 - 07/07 [facility] 14.7 [facility] HEMATOLOGY PTT 26.7 22.9 - 07/07 [facility] 35.8 [facility] HEMATOLOGY INR 0.91 0.85 - 07/07 [facility] 1.17 [facility] HEMATOLOGY Ly30 3.2 0.0 - 7.5 07/07 [facility] HEMATOLOGY Coag Index 1.0 -3.0-3.0 - 07/07 [facility] 3.0 [facility] HEMATOLOGY Max Amp 55.2 50.0 - 07/07 [facility] 70.0 [facility] HEMATOLOGY G-value 6.2 4.5 - 11.0 07/07 [facility] HEMATOLOGY R-time 3.8 5.0 - 10.0 07/07 [facility] HEMATOLOGY K-time 1.7 1.0 - 3.0 07/07 [facility] HEMATOLOGY Angle 67.9 53.0 - 07/07 [facility] 72.0 [facility] HEMATOLOGY TEG Data See Note 07/07 [facility] (07/07/18 12:01 AM) /2017 [facility] HEMATOLOGY TEG Interp Thrombelas 07/07 [facility] tograph [facility] show shortened value of R. This finding is suggestive of enzymatic hypercoagu lation. CPT:13344 PARATHYROID Ca Norm WB 1.06 1.05 - 07/07 [facility] PROFILE . [facility] PARATHYROID Ca Ion WB 1.07 1.05 - 07/07 [facility] PROFILE 12.05 [facility] CHEM PANEL Lactic Acid 1.9 0.5 - 2.2 08/26 [facility] Lvl [facility] CHEM PANEL Magnesium Lvl 2.1 1.8 - 2.4 07/[address] CHEM PANEL Phosphorus 2.8 2.5 - 4.5 07/[address] CHEM PANEL A/G Ratio 0.7 0.7 - 1.6 07/[address] CHEM PANEL Globulin 3.5 2.7 - 4.2 07/[address] CHEM PANEL Bili Total 0.7 0.2 - 1.3 07/[address] CHEM PANEL Bili Indirect 0.5 0.0 - 1.0 07/[address] CHEM PANEL Total Protein 5.9 6.4 - 8.4 07/[address] CHEM PANEL ALT 95 0 - 65 07/[address] CHEM PANEL Albumin Lvl 2.4 3.5 - 5.0 07/[address] CHEM PANEL Alk Phos 102 39 - 136 07/[address] CHEM PANEL AST 87 0 - 37 07/[address] CHEM PANEL Bili Direct 0.2 0.0 - 0.3 07/[address] ELECTROLYTE AGAP 11.7 10.0 - 07/06 [facility] S 20.0 [facility] ELECTROLYTE eGFR 105 07/06 Result [facility] S Comment: The Medical eGFR is Center [...] ELECTROLYTE BUN 17 7 - 22 07/06 [facility] ELECTROLYTE Creatinine 0.68 0.50 - 07/06 [facility] S Lvl 1.40 /2017 [facility] ELECTROLYTE Potassium Lvl 3.7 3.5 - 5.1 07/[address] ELECTROLYTE Sodium Lvl 141 135 - 145 07/[address] ELECTROLYTE CO2 25 24 - 32 07/[address] ELECTROLYTE Glucose Lvl 125 70 - 99 07/[address] ELECTROLYTE Chloride Lvl 108 95 - 109 07/[address] ELECTROLYTE Calcium Lvl 7.8 8.5 - 10.5 07/06 [facility]2017 [facility] HEMATOLOGY RDW 13.7 11.5 - 07/06 [facility] 14.5 [facility] HEMATOLOGY MCHC 35.5 32.0 - 07/06 [facility] 36.0 [facility] HEMATOLOGY Platelet 127 133 - 450 07/[address] HEMATOLOGY MPV 8.2 7.4 - 10.4 07/[address] HEMATOLOGY WBC 6.3 3.7 - 10.4 07/[address] HEMATOLOGY RBC 4.61 4.70 - 07/06 [place] 6.10 [facility] HEMATOLOGY Hgb 14.9 14.0 - 07/06 [place] 18.0 [facility] HEMATOLOGY Hct 42.1 42.0 - 07/06 [place] 54.0 [facility] HEMATOLOGY MCV 91.2 80.0 - 07/06 [facility] 94.0 [facility] HEMATOLOGY MCH 32.4 27.0 - 07/06 [place] 31.0 [facility] HEMATOLOGY Lymphocytes # 1.2 1.0 - 5.5 07/[address] HEMATOLOGY Monocytes # 0.6 0.0 - 0.8 07/[address] HEMATOLOGY Eosinophils # 0.2 0.0 - 0.5 07/[address] HEMATOLOGY Basophils # 0.1 0.0 - 0.2 07/[address] HEMATOLOGY Eosinophils 2.4 0.0 - 4.0 07/[address] HEMATOLOGY Neutrophils # 4.3 1.5 - 8.1 07/[address] HEMATOLOGY Basophils 1.0 0.0 - 1.0 07/[address] HEMATOLOGY Segs 68.6 45.0 - 07/06 [facility] 75.0 [facility] HEMATOLOGY Lymphocytes 18.8 20.0 - 07/06 [facility] 40.0 [facility] HEMATOLOGY Monocytes 9.2 2.0 - 12.0 07/[address] PARATHYROID Ca Norm WB 1.10 1.05 - 07/06 [facility] PROFILE 1. [facility] PARATHYROID Ca Ion WB 1.10 1.05 - 07/06 [facility] PROFILE 1. [facility] LIPIDS LDL 76 <=99 mg/dL 07/04 [facility] (Calculated) /2017 [facility] LIPIDS VLDL 25 07/[address] LIPIDS Trig 123 <=149 07/04 [facility] mg/dL [address] [place] [address] LIPIDS HDL 52 >=61 mg/dL 07/[address] LIPIDS Chol 153 <=199 07/04 [facility] mg/dL [address] [place] [address] LIPIDS CHD Risk 2.94 4.00 - 07/04 [facility] 7.30 [facility] SPECIAL Hgb A1C 5.0 <=5.6 % 07/04 [facility] CHEMISTRY /[address] [place] [address] CHEM PANEL Bili Direct 0.2 0.0 - 0.3 07/[address] CHEM PANEL Alk Phos 109 39 - 136 07/[address] CHEM PANEL Globulin 3.8 2.7 - 4.2 07/[address] CHEM PANEL Bili Total 0.9 0.2 - 1.3 07/[address] CHEM PANEL A/G Ratio 0.7 0.7 - 1.6 07/[address] CHEM PANEL ALT 112 0 - 65 07/[address] CHEM PANEL Total Protein 6.5 6.4 - 8.4 07/[address] CHEM PANEL Albumin Lvl 2.7 3.5 - 5.0 07/[address] CHEM PANEL AST 105 0 - 37 07/[address] CHEM PANEL B/C Ratio 18 6 - 25 07/[address] DRUG SCREEN U Cocaine Scr Negative Negative 07/04 [facility] *NA* /2017 Medical (07/04/18 3:28 PM) Center DRUG SCREEN U Benzodiaz Negative Negative 07/04 [place] [facility] *NA* Medical (07/04/18 3:28 PM) Center DRUG SCREEN U Sendy Scr Negative Negative 07/04 [place] *NA* /2017 Medical (07/04/18 3:28 PM) Center DRUG SCREEN U Amph Scr Negative Negative 07/04 [place] *NA* /2017 Medical (07/04/18 3:28 PM) Center DRUG SCREEN U Negative Negative 07/04 [facility] Phencyclidine *NA* Medical Scr (07/04/18 3:28 PM) Center DRUG SCREEN U Cannab Scr Negative Negative 07/04 [place] *NA* /2017 Medical (07/04/18 3:28 PM) Center DRUG SCREEN UDS Note See Note 07/04 [facility] (07/04/18 3:28 PM) /2017 [facility] DRUG SCREEN U Opiate Scr Negative Negative 07/04 [facility] *NA* [facility] (07/04/18 3:28 PM) [place] URINE AND UA RBC None Seen 0 - 2 07/04 [facility] STOOL (07/04/18 3:28 PM) /2017 [facility] URINE AND UA WBC None Seen None Seen 07/04 [facility] (07/04/18 3:28 PM) /2017 Medical [place] URINE AND UA Sq Epi None Seen Few 07/04 [facility] (07/04/18 3:28 PM) /2017 [facility] URINE AND UA Bacteria None Seen None Seen 07/04 [facility] (07/04/18 3:28 PM) /2017 [facility] URINE AND UA Bili Negative Negative 07/04 [facility] STOOL *NA* [facility] (07/04/18 3:28 PM) [place] URINE AND UA Ketones Negative Negative 07/04 [facility] STOOL *NA* [facility] (07/04/18 3:28 PM) [place] URINE AND UA Spec Grav 1.025 <=1.030 07/04 [facility] STOOL /2017 [facility] [place] URINE AND UA Turbidity Clear Clear 07/04 [facility] STOOL (07/04/18 3:28 PM) /2017 [facility] [place] URINE AND UA 1.0 0.1 - 1.0 07/04 [facility] STOOL Urobilinogen /2017 [facility] [place] URINE AND UA Glucose Negative Negative 07/04 [facility] STOOL (07/04/18 3:28 PM) /2017 [facility] [place] URINE AND UA Protein >=300 Negative 07/04 [facility] STOOL mg/dL mg/dL [facility] [place] URINE AND UA pH 6.0 5.0 - 8.0 07/04 [facility] STOOL /2017 [facility] [place] URINE AND UA Leuk Est Negative Negative 07/04 [facility] STOOL (07/04/18 3:28 PM) [facility] [place] URINE AND UA Nitrite Negative Negative 07/04 [facility] STOOL (07/04/18 3:28 PM) /2017 [facility] [place] URINE AND UA Blood Moderate Negative 07/04 [facility] STOOL *ABN* /2017 [facility] (07/04/18 3:28 PM) [place] URINE AND UA Color Yellow Yellow 07/04 [facility] STOOL *NA* /2017 [facility] (07/04/18 3:28 PM) [place] CHEM PANEL POC 0.7 0.5 - 1.4 07/04 [facility] Creatinine [facility] [place] CARDIAC Troponin-I <0.02 0.00 - 07/04 [facility] ENZYMES 0.40 [facility] [place] CARDIAC Total CK 86 12 - 191 07/04 [facility] ENZYMES [facility] [place] HEMATOLOGY Tot Cell Ct 100 07/04 [facility] /2017 [facility] [place] HEMATOLOGY Plt Morph Normal 07/04 [facility] (07/04/18 2:29 PM) /2017 [facility] [place] HEMATOLOGY RBC Morph Normal 07/04 [facility] (07/04/18 2:29 PM) /2017 [facility] [place] HEMATOLOGY Atypical 0.0 <=0.0 % 07/04 [facility] Lymphs [facility] [place] HEMATOLOGY Bands 0.0 0.0 - 11.0 07/04 [facility] /[address] [place] [address] HEMATOLOGY PTT 20.4 22.9 - 07/04 [facility] 35.8 [facility] [place] HEMATOLOGY INR 0.93 0.85 - 07/04 [facility] 1.17 [facility] [place] HEMATOLOGY PT 12.5 12.0 - 07/04 [facility] 14.7 [facility] [place] Pathology Reports No Data Provided for This Section Diagnostic Reports Report Value Date Source Angiogram cervical PROCEDURE: 07/07/2018 [facility] artery bilateral VR 1. Diagnostic Cerebral Angiogram [...] a single wall micropuncture technique and a 5-[place] sheath was placed. Heparin 3000 units IV was given. A 5-[place] Vert catheter was coaxially advanced over a [...] carotid arteries with normal filling of the satellite communications engineer al carotid artery branches. Course and caliber [...] EXAM: XR LEFT SHOULDER 3 VIEWS 07/06/2018 [facility] DATE: 07/06/2018 8:27 AM CDT Center INDICATION: [...] MRI EXAM: MRI BRAIN WITHOUT CONTRAST 07/04/2018 [facility] DATE: 07/04/2018 3:27 PM CDT Center INDICATION: [...] 1. 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 No intracranial hemorrhage is identified. The findings are compatible with embolic ischemic infarcts. 2. Moderate cerebral atrophy and changes of chronic small vessel ischemia. Chest 1view DX EXAM: XR CHEST 1 VIEW 07/04/2018 [facility] DATE: 07/04/2018 2:01 PM CDT Center INDICATION: -Stroke symptoms ADDITIONAL INFORMATION: Chief complaint -- 'Sent from [place] - 3am left arm weakness and numbness [...] wo EXAM: CT BRAIN WITHOUT CONTRAST 07/04/2018 [facility] contrast CT DATE: 07/04/2018 14:54 CDT Center [...] loss Brain/Neck Stroke EXAM: CTA BRAIN 07/04/2018 [facility] CTA EXAM: CTA NECK Center EXAM: CT [...] dominant left vertebral artery is present. The [place] is normal. The deep cerebral [...] Comments Source Systolic (mm Hg) 131 07/08/2018 [facility] Diastolic (mm Hg) 69 07/08/2018 [facility] Respitory Rate 22 07/08/2018 [facility] Systolic (mm Hg) 153 07/08/2018 [facility] Diastolic (mm Hg) 100 07/08/2018 [facility] Respitory Rate 18 07/08/2018 [facility] Respitory Rate 22 07/08/2018 [facility] Systolic (mm Hg) 138 07/08/2018 [facility] Diastolic (mm Hg) 71 07/08/2018 [facility] Weight 88.636 07/08/2018 [facility] BMI Calculated 28.86 07/08/2018 [facility] Height 175.26 cm 07/08/2018 [facility] Temperature Oral (F) 97.8 F 07/08/2018 [facility] Temperature Oral (F) 97 F 07/08/2018 [facility] Temperature Oral (F) 98.0 F 07/08/2018 [facility] Height 177.8 cm 07/07/2018 [facility] Weight 88.636 07/07/2018 [facility] BMI Calculated 28.04 07/07/2018 [facility] Weight 88.636 07/04/2018 [facility] BMI Calculated 28.04 07/04/2018 [facility] Height 177.8 cm 07/04/2018 [facility] Heart Rate 65 07/04/2018 [facility] Heart Rate 65 07/04/2018 [facility] Heart Rate 62 07/04/2018 [facility] Encounters Location Location Encounter Encounter Reason Attending ADM DC Status Source Details Type Number For Provider Date Date Visit [facility] Inpatient [id number] Kin 07/04 07/08 [facility] Franko Umaña /2017 [facility] Amb[facility] [id number] Solitario 04/14 04/14 [facility] [place] /2018 [facility] [place] Procedures Procedure Code Date Perfomer Comments Source Selective catheter 54026 07/07/2018 [facility] placement, vertebral Medical artery, unilateral, Center with angiography of the ipsilateral vertebral circulation and all associated radiological supervision and interpretation, includes angiography of the cervicocerebral arch, when performed Assessment and Plan Assessment and Plan Date Source Extracted from:Title: Stroke Discharge Summary 07/08/2018 [facility] Author: Shasha Fan DO Date: 07/09/18 [facility]UROLOGY DISCHARGE SUMMARY Date of Admission: 07/04/18 Date of Discharge: 07/08/18 Admit Diagnosis: acute cva Discharge Diagnoses:acute BL DIOMEDES-MCA and R MCA-HOTBED OPERATOR borderzone territory infarcts, essential hypertension, hyperlipidemia, bilateral ICA stenosis Consults Obtained:none HPI and Hospital Course: DINO CARDOZA is a 57 yo RH man with history of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
--- OUTSIDE RECORDS SUMMARY | 2019-07-30 08:17 | XMS REPORT ---
:1960 [facility] Address [address] [place] [address] Care Team Providers Name Role Phone LION GRIFFITHS Primary Care Provider Unavailable Problems This patient has no known problems. Allergies, Adverse Reactions, Alerts This patient has no known allergies or adverse reactions. Medications This patient has no known medications. Encounters Start End Encounter Admission Attending Care Care Encounter Date/Time Date/Time Type Type Clinicians Facility Department ID 2017-10-08 Inpatient [facility] [id number] 07:14:00 2017-08-29 Inpatient [facility] [id number] 13:35:00 2017-07-03 Inpatient [facility] [id number] 15:05:00 2018-05-23 2018-05-23 Emergency [facility] [id number] 20:46:01 20:46:01 2018-05-23 2018-05-23 Emergency [facility] [id number] 19:26:42 19:26:42 2017-08-12 2017-08-12 Outpatient [facility] [id number] 09:26:00 09:26:00 2017-06-13 2017-06-13 Outpatient [facility] [id number] 14:15:00 14:15:00 2017-06-05 2017-06-05 Outpatient [facility] [id number] 09:33:00 09:33:00 2017-03-19 2017-03-19 Outpatient C [facility]A [id number] 07:13:00 07:13:00 2017-02-06 2017-02-06 Outpatient [facility] [id number] 07:43:00 07:43:00 2017-01-08 2017-01-08 Outpatient [facility] [id number] 07:03:00 07:03:00 Results Test Description Test Time Test Comments Text Results Atomic Results Result Comments [facility] 2017-06-05 14:43:00 ULTRASOUND DIRECTED W/IMAGING PARACENTESIS:CLINICAL HISTORY: Ascites. Cirrhosis.Written and verbal consent were obtained. Following ultrasoundlocalization of an appropriate area within the right lower quadrant ofthe abdomen, using aseptic technique, and following local anesthesiawith 4 mL of 1% Xylocaine, a puncture was made into the peritoneal spacewith a one-step needle. 4 L of fluid was drained. Patient toleratedprocedure well without event.IMPRESSION:1. Ultrasound directed paracentesis with removal of 4 L of fluid. US ABDOMEN LIMITED-RIGHT 2017-06-05 14:41:12 ULTRASOUND ABDOMEN LIMITED: CLINICAL HISTORY: Ascites. Images were obtained over a quadrants of the abdomen for evaluation forascites volume. There is a moderate to large volume ascites.IMPRESSION:1. Moderate volume ascites. [facility] 2017-03-19 12:25:33 Information: AscitesUltrasound W/IMAGING guided paracentesisFollowing verbal and written consent and utilizing ultrasound guidancethe right lateral abdominal wall was sterilely prepped and draped andthe plane of needle entry injected with 5 mL of Xylocaine 1% localanesthesia and 1 mL of sodium bicarbonate solution. Following a smallskin incision with a #11 blade a one-step catheter was passed into theperitoneal cavity and 5 L of serous-type fluid aspirated. No significantresidual fluid is noted on the postparacentesis images. The patienttolerated the procedure well and left the ultrasound suite in stable andsatisfactory conditionIMPRESSION:1. Ultrasound-guided paracentesis as described above. [facility] 2017-02-06 11:52:16 Information: CirrhosisShunt W/IMAGING paracentesisFollowing verbal and written consent and utilizing ultrasound guidancethe left lateral abdominal wall was sterilely prepped and draped and theplane of needle entry injected with 5 mL of Xylocaine 1% localanesthesia 1 mL of sodium bicarbonate solution.Following a small skin incision with a #11 blade a one-step catheter waspassed into the peritoneal cavity and approximately 5 L of serous-typefluid aspirated. No significant amount of fluid is noted on thepostparacentesis images. The patient tolerated the procedure well andleft the ultrasound suite in stable and satisfactory condition.IMPRESSION:1. Ultrasound-guided paracentesis as described above. [place] JIM, 2017-01-08 11:44:42 EXAM: Abdominal Sonography with ABD/PELV LTD Hepatic Elastography.TECHNIQUE: Serial multiplanar grayscale imaging with/without Dopplerinterrogation including color flow imaging and Doppler waveformanalysis. Hepatic elastography measurements were made utilizing US HealthVest Epiq 7 ultrasound unit (C5-1 multifrequency transducer).HISTORY: Cirrhosis..COMPARISON: None.FINDINGS: Liver: The liver demonstrates heterogeneous echotexture with lobulatedcontours. The liver measures 18.1 cm in the midclavicular line (normal <16 cm). The gallbladder is contracted about multiple shadowingdensities. The common bile duct measures 3-4 mm in diameter. The portalvein (hepatopetal) and hepatic veins demonstrate normal directionalflow. Peak systolic velocity within the portal vein is 17 cm/s (normal>16 cm/s). Portal vein diameter is 16.5 mm (normal < 13 mm).* The hepatic median stiffness value=1.75 m/s.* Number of stiffness measurements=12.* IQR/Median=0.12 (Measurement of quality of statistical data set=/<0.3).Spleen: The spleen demonstrates no evidence of mass. The splenic indexis 2264 cc (dtfaaw=582-109 cc). Splenic volume is 1343 ml (orryfi=677 - 340 ml). Splenic weight is 1410 gm (abdtkm=930 - 360 gm).Pancreas: The pancreatic head and body are imaged and are unremarkable.The pancreatic tail is obscured by overlying bowel gas.IVC/Aorta: Visualized portions of the IVC and aorta are unremarkable.Kidneys: The right kidney measures 12.6 cm x 5.3 cm x 5.3 cm, and theleft kidney measures 11.6 cm x 4.9 cm x 5.3 cm. There is no evidence ofsolid renal mass or obstructive uropathy.Ascites: Small amount visualized post paracentesis.IMPRESSION:1. Liver fibrosis stage=F2 - F3, mild to moderate.2. Sonographic/Doppler evidence of portal vein hypertension.3. The spleen is approximately 4 times the upper limits of normal forsize.4. Mild hepatomegaly.5. Contracted gallbladder with cholelithiasis. No evidence of biliarytract dilatation. Liver Fibrosis Staging: Metavir ScoreStage Range m/s Range kPa DescriptorF=0 0.81 - 1.22 2.0 - 4.5 NormalF0 - F1 1.22 - 1.37 4.5 - 5.7 Normal - MildF2 - F3 1.37 - 2.00 5.7 - 12.0 Mild - ModerateF3 - F4 2.00 - 21.0+ 12.0 - 2.64+ Moderate - Severe US ABDOMEN COMPLETE 2017-01-08 11:19:24 EXAM: Abdominal Sonography with Hepatic Elastography.TECHNIQUE: Serial multiplanar grayscale imaging with/without Dopplerinterrogation including color flow imaging and Doppler waveformanalysis. Hepatic elastography measurements were made utilizing Weblanceq 7 ultrasound unit (C5-1 multifrequency transducer).HISTORY: Cirrhosis..COMPARISON: None.FINDINGS: Liver: The liver demonstrates heterogeneous echotexture with lobulatedcontours. The liver measures 18.1 cm in the midclavicular line (normal <16 cm). The gallbladder is contracted about multiple shadowingdensities. The common bile duct measures 3-4 mm in diameter. The portalvein (hepatopetal) and hepatic veins demonstrate normal directionalflow. Peak systolic velocity within the portal vein is 17 cm/s (normal>16 cm/s). Portal vein diameter is 16.5 mm (normal < 13 mm).* The hepatic median stiffness value=1.75 m/s.* Number of stiffness measurements=12.* IQR/Median=0.12 (Measurement of quality of statistical data set=/<0.3).Spleen: The spleen demonstrates no evidence of mass. The splenic indexis 2264 cc (dkfzsv=665-933 cc). Splenic volume is 1343 ml (eppfoc=568 - 340 ml). Splenic weight is 1410 gm (iibtdl=530 - 360 gm).Pancreas: The pancreatic head and body are imaged and are unremarkable.The pancreatic tail is obscured by overlying bowel gas.IVC/Aorta: Visualized portions of the IVC and aorta are unremarkable.Kidneys: The right kidney measures 12.6 cm x 5.3 cm x 5.3 cm, and theleft kidney measures 11.6 cm x 4.9 cm x 5.3 cm. There is no evidence ofsolid renal mass or obstructive uropathy.Ascites: Small amount visualized post paracentesis.IMPRESSION:1. Liver fibrosis stage=F2 - F3, mild to moderate.2. Sonographic/Doppler evidence of portal vein hypertension.3. The spleen is approximately 4 times the upper limits of normal forsize.4. Mild hepatomegaly.5. Contracted gallbladder with cholelithiasis. No evidence of biliarytract dilatation. Liver Fibrosis Staging: Metavir ScoreStage Range m/s Range kPa DescriptorF=0 0.81 - 1.22 2.0 - 4.5 NormalF0 - F1 1.22 - 1.37 4.5 - 5.7 Normal - MildF2 - F3 1.37 - 2.00 5.7 - 12.0 Mild - ModerateF3 - F4 2.00 - 21.0+ 12.0 - 2.64+ Moderate - Severe SP ABD PARCENTESIS 2017-01-08 10:03:19 Information: AscitesUltrasound W/IMAGING guided paracentesisFollowing verbal and written consent and utilizing ultrasound guidancethe right lateral abdominal wall was sterilely prepped and draped andthe plane of needle entry injected with 5 mL of Xylocaine 1% localanesthesia 1 mL of sodium bicarbonate solution.Following a small skin incision with a #11 blade a one-step catheter waspassed into the peritoneal cavity and 5.5 L of serous-type fluidaspirated. No significant amount of fluid noted on the postparacentesisimages.The patient tolerated the procedure well and left the ultrasound suitein stable and satisfactory conditionIMPRESSION:1. Ultrasound-guided paracentesis.
--- OUTSIDE RECORDS SUMMARY | 2019-07-30 08:18 | XMS REPORT | Summary of Care ---
:1960 Author Organization [facility] Address [address] [place] [address] Care Team Providers Name Role Phone Ntio Hamilton Primary Care Provider Nito Hamilton Primary Care Provider Reason for Visit Reason Comments Appointment The patient was told his appointment in [place] but itwas in [place]. Please call the patient to reschedule at [facility] Encounter Details Date Type Department Care Team Description 06/17/2019 Telephone [facility] Vitaly Sosa, Appointment (The Neurology-[place] patient was told his [address] [place] [address]. [address] [facility] [place] [address] [place]. Please call [phone] the patient to [phone] reschedule at [facility] ) Allergies No Known Allergiesdocumented as of this encounter (statuses as of 07/10/2019) Medications Medication Sig Dispensed Refills Start Date End Date Status lactulose (CEPHULAC) 10 Take 30 mL by 1 Bottle 11 10/22/2016 Active gram/15 mL mouth 2 (two) solutionIndications: times daily. Decompensated HCV cirrhosis traMADOL (ULTRAM) 50 mg Take 1 tablet by 45 tablet 0 10/22/2016 Active tabletIndications: mouth every 6 Decompensated HCV (six) hours as cirrhosis, Lower needed for Pain abdominal pain (scale 4-6) or Pain (scale 7-10). furosemide 40 mg Take 1 tablet by 90 tablet 1 11/27/2016 Active tabletIndications: mouth daily. Decompensated HCV cirrhosis spironolactone 100 mg Take 1 tablet by 90 tablet 1 11/27/2016 Active tabletIndications: mouth daily. Decompensated HCV cirrhosis amLODIPine 5 mg Take 1 tablet by 90 tablet 1 11/27/2016 Active tabletIndications: mouth daily. Essential hypertension ondansetron 4 mg Take 1 tablet by 10 tablet 0 04/15/2018 Active disintegrating tablet mouth every 8 (eight) hours as needed for Nausea and Vomiting (N/V). proMETHazine 25 mg Take 1 tablet by 12 tablet 0 04/15/2018 Active tablet mouth every 6 (six) hours as needed for Nausea and Vomiting (N/V). traMADOL 50 mg tablet Take 1 tablet by 15 tablet 0 04/15/2018 Active mouth every 6 (six) hours as needed for Pain (scale 4-6). clopidogrel (PLAVIX) 75 Take 75 mg by 0 Active mg tablet mouth daily. atorvastatin 40 mg Take 40 mg by 0 Active tablet mouth at bedtime. aspirin 81 mg chewable Take 81 mg by 0 Active tablet mouth daily. [place]-3 Fatty Acids Take by mouth. 0 Active (FISH OIL CONCENTRATE) 1,000 mg Cap documented as of this encounter (statuses as of 07/10/2019) Active Problems Problem Noted Date Decompensated hepatic cirrhosis 10/20/2016 Generalized abdominal pain 09/02/2016 Decompensated cirrhosis related to hepatitis C virus (HCV) 09/01/2016 Elevated liver enzymes 01/27/2016 CVA (cerebral infarction) 01/27/2016 HTN (hypertension) 01/27/2016 HLD (hyperlipidemia) 01/27/2016 documented as of this encounter (statuses as of 07/10/2019) Social History Tobacco Use Types Packs/Day Years Used Date Never Smoker Cigarettes 1 Comments: Has smoked since 2000 Alcohol Use Drinks/Week oz/Week Comments No 0 Standard drinks or equivalent 0.0 Sober since 2013 Sex Assigned at Date Recorded Not on file Job Start Date Occupation Industry Not on file Not on file Not on file Travel History Travel Start Travel End No recent travel history available. documented as of this encounter Last Filed Vital Signs Not on filedocumented in this encounter Plan of Treatment Health Maintenance Due Date Last Done Comments HEPATITIS C (HCV) SCREEN 1960 PNEUMOCOCCAL 0-64 YEARS COMBINED SERIES ( - 1964 PPSV23) DTaP,Tdap,and Td Vaccines (1 - Tdap) 1977 COLONOSCOPY 2008 Zoster Recombinant Vaccine (SHINGRIX) (1 of 2) 2008 INFLUENZA VACCINE (#1) 2019 documented as of this encounter Results Not on filedocumented in this encounter Insurance Payer Benefit Plan / Subscriber ID Effective Phone Address Type Group Dates [employer] xxxxxxxxx 2019-Andree Henry [place] [address] [place] [address] documented as of this encounter
--- OUTSIDE RECORDS SUMMARY | 2019-07-30 08:18 | XMS REPORT | Summary of Care ---
:1960 Author Organization [facility] Address [address] [place] [address] Care Team Providers Name Role Phone Nito Hamilton Primary Care Provider Reason for Visit Reason Comments Follow-up Results Encounter Details Date Type Department Care Team Description 06/26/2019 Office Visit [facility] Vitaly Sosa Neuropathy (Primary Dx) ; Neurology-Will Reno MD Bilateral carotid artery stenosis; [address] [place] [address] Essential hypertension; Drive, [address] [facility]. Chronic hepatitis C without hepatic coma; [place], [place] Cerebrovascular accident (CVA) due to occlusion of right carotid artery [id number] Allergies No Known Allergiesdocumented as of this encounter (statuses as of 06/29/2019) Medications Medication Sig Dispensed Refills Start Date [...] mg by 0 Active tablet mouth daily. [place]-3 Fatty Acids Take by mouth. 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) 09/01/2016 Elevated liver enzymes 01/27/2016 CVA (cerebral infarction) 01/27/2016 HTN (hypertension) 01/27/2016 HLD (hyperlipidemia) 01/27/2016 documented as of this encounter (statuses as of 06/29/2019) Social History Tobacco Use Types Packs/Day Years [...] of this encounter Last Filed Vital Signs Vital Sign Reading Time Taken Comments Blood Pressure 141/90 06/26/2019 10:32 AM CDT Pulse 92 06/26/2019 10:31 AM CDT Temperature 36.2 C (97.2 F) 06/26/2019 10:31 AM CDT Respiratory Rate 18 06/26/2019 10:31 AM CDT Oxygen Saturation - - Inhaled Oxygen Concentration - - Weight 89.8 kg (198 lb) 06/26/2019 10:31 AM CDT Height 175.3 cm (5' 9") 06/26/2019 10:31 AM CDT Body Mass Index 29.24 06/26/2019 10:31 AM CDT documented in this encounter Progress Notes Vitaly Sosa MD - 06/26/2019 10:20 AM CDT HISTORY OF PRESENT ILLNESS: Blaise Renee is a 58 year old male.Chief complaint: Testing follow-up. History: The patient does return and his biggest complaint is that he doesn't feel in total control of his body movements. He did say that very recently he was in [facility] where a paracentesis had been done and this is related to his cirrhosis of the liver and hepatitis C. He doesn't think that any testing had been done on the fluid but I don't know. Also do not know if he has had any other serum ammonia levels done. The MRI angiogram of the [place] in the neck had been reviewed with the patient, digital images. There is actually stenosis noted more proximally in both carotid arteries, 70% at the petrous cavernous junction on the right. On the left side it was graded at 60 70% in the left paraclinoid and proximal ophthalmic segment. He did say that probably about a year ago when he had been in [facility], he thought that there might've been an arteriogram performed but of course we do not have the results of that. PMH: has a past medical history of Cirrhosis, CVA (cerebral vascular accident), HCV (hepatitis C virus),and HTN (hypertension). Current Outpatient Medications: aspirin 81 mg chewable tablet, Take 81 mg by mouth daily., Disp: , Rfl: atorvastatin 40 mg tablet, Take 40 mg by mouth at bedtime., Disp: , Rfl: clopidogrel (PLAVIX) 75 mg tablet, Take 75 mg by mouth daily., Disp: , Rfl: [place]-3 Fatty Acids (FISH OIL CONCENTRATE) 1,000 mg Cap, Take by mouth., Disp: , Rfl: ondansetron 4 mg disintegrating tablet, Take 1 tablet by mouth every 8 ( eight) hours as needed for Nausea and Vomiting (N/V)., Disp: 10 tablet, Rfl: 0 proMETHazine 25 mg tablet, Take 1 tablet by mouth every 6 (six) hours as needed for Nausea and Vomiting (N/V)., Disp: 12 tablet, Rfl: 0 traMADOL 50 mg tablet, Take 1 tablet by mouth every 6 (six) hours as needed for Pain (scale 4-6)., Disp: 15 tablet, Rfl: 0 amLODIPine 5 mg tablet, Take 1 tablet by mouth daily., Disp: 90 tablet, Rfl : 1 furosemide 40 mg tablet, Take 1 tablet by mouth daily. (Patient taking differently: Take 40 mg by mouth every morning and evening.), Disp: 90 tablet, Rfl: 1 spironolactone 100 mg tablet, Take 1 tablet by mouth daily., Disp: 90 tablet, Rfl: 1 lactulose (CEPHULAC) 10 gram/15 mL solution, Take 30 mL by mouth 2 (two) times daily., Disp: 1 Bottle, Rfl: 11 traMADOL (ULTRAM) 50 mg tablet, Take 1 tablet by mouth every 6 (six) hours as needed for Pain (scale 4-6) or Pain (scale 7-10)., Disp: 45 tablet, Rfl: 0 Social History Socioeconomic History Marital status: Spouse name: Not on file Number of children: Not on file Years of education: Not on file Highest education level: Not on file Occupational History Not on file Social Needs Financial resource strain: Not on file Food insecurity: Worry: Not on file Inability: Not on file Transportation needs: Medical: Not on file Non-medical: Not on file Tobacco Use Smoking status: Never Smoker Tobacco comment: Has smoked since 2000 Substance and Sexual Activity Alcohol use: No Alcohol/week: 0.0 oz Comment: Sober since 2013 Drug use: Never Sexual activity: Not on file Lifestyle Physical activity: Days per week: Not on file Minutes per session: Not on file Stress: Not on file Relationships Social connections: Talks on phone: Not on file Gets together: Not on file Attends restoration service: Not on file Active member of club or organization: Not on file Attends meetings of clubs or organizations: Not on file Relationship status: Not on file Intimate partner violence: Fear of current or ex partner: Not on file Emotionally abused: Not on file Physically abused: Not on file Forced sexual activity: Not on file Other Topics Concern Not on file Social History Narrative Lives in sober house Vital signs: BP (!) 141/90 | Pulse 92 | Temp 36.2 C (97.2 F) (Oral) | Resp 18 | Ht 5 ' 9" (1.753 m) | Wt 198 lb (89.8 kg) | BMI 29.24 kg/m General findings: patient alert and oriented times 3, cooperative during the examinaiton. No significant muscle tone abnormalities. Mild power difference left vs right UE, and less obvious chane left vs right LE. Left biceps 2. 5, triceps 2, brachioradialis 1. On right these reflexes were 2+. Patellar left 1. , right 1+. Achilles 1+ bilaterally. No new differences in primary light/sharp touch sensation. Finger tap more coarse LUE. Gait wider than normal base, romberg negative bilateral. Can't balance on either foot even more difficult on the left. Very mild LE edema. Abdomen is protuberant. ASSESSMENT AND RECOMMENDATIONS: ICD-10-CM ICD-9-CM 1. Neuropathy G62.9 355.9 2. Bilateral carotid artery stenosis I65.23 433.10 433.30 3. Essential hypertension I10 401.9 4. Chronic hepatitis C without hepatic coma B18.2 070.54 5. Cerebrovascular accident (CVA) due to occlusion of right carotid artery I63.231 433.11 Impression: He does clearly have vascular disease but he also has other health problems as well and his medical care has been fragmented amongst several different institutions. We do need to get the [place] records and see if his MRI information from [facility] would correlate with his arteriogram that he reportedly had done there at [place]. If there is a correlation, then I would probably ask my colleagueDrJeannie Vidal to evaluate with the possibility of arteriography and possible stenting. He also needs a serum ammonia level checked as well. This was a 25 minute office visit, and greater than 13 minutesis spent trying to arrange coordination of care and getting a hold of the other medical records. We can see him back again once these records have been reviewed. Creation of the note was aided by utilizing a cut/paste operation of text from a Microsoft Word template created with [employer]. The text was dictated into the template via Dragon Naturally Speaking. documented in this encounter Plan of Treatment Health Maintenance Due Date Last Done Comments HEPATITIS C (HCV) SCREEN 1960 PNEUMOCOCCAL 0-64 YEARS COMBINED SERIES (1 of 1 - 1966 PPSV23) DTaP,Tdap,and Td Vaccines (1 - Tdap) 1977 COLONOSCOPY 2008 Zoster Recombinant Vaccine (SHINGRIX) (1 of 2) 2008 INFLUENZA VACCINE (#1) 2019 documented as of this encounter Procedures Procedure Name Priority Date/Time Associated Diagnosis Comments AMMONIA, PLASMA Routine 06/26/2019 11:55 AM Neuropathy Results for this CDT Chronic hepatitis C procedure are in without hepatic coma the results section. documented in this encounter Results AMMONIA, PLASMA (06/26/2019 11:55 AM CDT) AMMONIA <9 (L) 9 - 33 umol/L [facility] Specimen Blood Performing Organization Address City/State/Zipcode Phone Number [facility] CLIA: [id number], [address] [place] [address] documented in this encounter Visit Diagnoses Diagnosis Neuropathy - Primary Mononeuritis of unspecified site Bilateral carotid artery stenosis Occlusion and stenosis of multiple and bilateral precerebral arteries without mention of cerebral infarction Essential hypertension Unspecified essential hypertension Chronic hepatitis C without hepatic coma Cerebrovascular accident (CVA) due to occlusion of right carotid artery documented in this encounter Insurance Payer Benefit Plan / Subscriber ID Effective Phone Address Type Group Dates [employer] xxxxxxxxx 2019-[address] [place] [address] [place] [address] documented as of this encounter
--- OUTSIDE RECORDS SUMMARY | 2019-07-30 08:18 | XMS REPORT ---
:1960 Author Organization [employer] Care Team Providers Name Role Phone Nito Hamilton Provider Role Unavailable Allergies No Known Allergies Problems Problem Type Condition Code Onset Dates Condition Status Problem Other ascites R18.8 Active Problem Unspecified cirrhosis of liver K74.60 Active Problem History of CVA with residual I69.30 Active deficit Problem Carotid stenosis, right I65.21 Active Problem Chronic hepatitis C without hepatic B18.2 Active coma Problem Essential hypertension I10 Active Problem Pure hypercholesterolemia E78.00 Active Problem Arthritis of left knee M17.12 Active Problem Arthritis of shoulder region, 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
--- OUTSIDE RECORDS SUMMARY | 2019-07-30 08:18 | XMS REPORT | Summary of Care ---
:1960 Author Organization [facility] Address [address] [place] [address] Care Team Providers Name Role Phone Nito Hamilton Primary Care Provider Reason for Visit Reason Comments Results Encounter Details Date Type Department Care Team Description 06/05/2019 Telephone [facility] Vitaly Sosa MD Results Neurology-[address] [place] [address] [facility] [address] [place] [address] [phone] Allergies No Known Allergiesdocumented as of this encounter (statuses as of 06/09/2019) Medications Medication Sig Dispensed Refills Start Date [...] mg by 0 Active tablet mouth daily. [place]-3 Fatty Acids Take by mouth. 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 [place] [address] Health Maintenance Due Date Last Done Comments HEPATITIS C (HCV) SCREEN 1960 PNEUMOCOCCAL 0-64 YEARS COMBINED SERIES (1 of - 1966 PPSV23) DTaP,Tdap,and Td Vaccines (1 - Tdap) 1977 COLONOSCOPY 2008 Zoster Recombinant Vaccine (SHINGRIX) (1 of 2) 2008 INFLUENZA VACCINE 07/12/2019 documented as of this encounter Results Not on filedocumented in this encounter Insurance Payer Benefit Plan / Subscriber ID Effective Phone Address Type Group Dates [employer] xxxxxxxxx 2019-Andree [place] [address] [place] [address] documented as of this encounter
--- OUTSIDE RECORDS SUMMARY | 2019-07-30 08:18 | XMS REPORT | Summary of Care ---
:1960 Author Organization [facility] - Health Address [address] [place] [address] Care Team Providers Name Role Phone Nito Hamilton Primary Care Provider Encounter Details Date Type Department Care Team Description 06/26/2019 Orders Only [facility] Doctor Unassigned, No [address] [facility] [place] [place] [address] [address] [place] [id number] Allergies No Known Allergiesdocumented as of this encounter (statuses as of 06/28/2019) Medications Medication Sig Dispensed Refills Start Date [...] mg by 0 Active tablet mouth daily. [place]-3 Fatty Acids Take by mouth. 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) 09/01/2016 Elevated liver enzymes 01/27/2016 CVA (cerebral infarction) 01/27/2016 HTN (hypertension) 01/27/2016 HLD (hyperlipidemia) 01/27/2016 documented as of this encounter (statuses as of 06/28/2019) Social History Tobacco Use Types Packs/Day Years [...] Procedure Name Priority Date/Time Associated Diagnosis Comments MEDICAL Routine 06/26/2019 12:01 AM CDT RELEASE/CLEARANCE FORMS documented in this encounter Results Not on filedocumented in this encounter Insurance Payer Benefit Plan / Subscriber ID Effective Phone Address Type Group Dates [employer] xxxxxxxxx 2019-Andree [place] [address] [place] [address] documented as of this encounter
--- OUTSIDE RECORDS SUMMARY | 2019-07-30 08:18 | XMS REPORT | Summary of Care ---
:1960 Author Organization [facility] Address [address] [place] [address] Care Team Providers Name Role Phone Nito Hamilton Primary Care Provider Reason for Visit Reason Comments Follow-up Results Encounter Details Date Type Department Care Team Description 06/26/2019 Office Visit [facility] Vitaly Sosa Neuropathy (Primary Dx) ; Neurology-Will Reno MD Bilateral carotid artery stenosis; [address] [place] [address] Essential hypertension; [address], [address] [facility]. Chronic hepatitis C without hepatic coma; [place], [place] Cerebrovascular accident (CVA) due to occlusion of right carotid artery [phone] Allergies No Known Allergiesdocumented as of [...] mg by 0 Active tablet mouth daily. [place]-3 Fatty Acids Take by mouth. 0 Active [...] say that very recently he was in [facility] where a paracentesis had been done and this is related to his cirrhosis of the liver and hepatitis C. He doesn't think that any testing had been done on the fluid but I don't know. Also do not know if he has had any other serum ammonia levels done. The MRI angiogram of the [place] in the neck had been [...] year ago when he had been in [facility], he thought that there might've been an [...] mg by mouth daily., Disp: , Rfl: [place]-3 Fatty Acids (FISH OIL CONCENTRATE) 1,000 mg [...] file Gets together: Not on file Attends episcopal service: Not on file Active member of [...] institutions. We do need to get the [place] records and see if his MRI information from [facility] would correlate with his arteriogram that he reportedly had done there at [place]. If there is a correlation, then I [...] from a Microsoft Word template created with Million[employer]. The text was dictated into the template [...] AMMONIA <9 (L) 9 - 33 umol/L [facility] Specimen Blood Performing Organization Address City/State/Zipcode Phone Number [facility] CLIA: [id number], [address] [place] [address] documented in this encounter [...] [address] [place] [address] [place] [address] documented as of this encounter
--- OUTSIDE RECORDS SUMMARY | 2019-07-30 08:18 | XMS REPORT | Summary of Care ---
:1960 Author Organization [facility] - Health Address [address] [place] [address] Care Team Providers Name Role Phone Joy Nito Unger Primary Care Provider Reason for Visit Reason Comments LAB Encounter Details Date Type Department Care Team Description 06/26/2019 Public Safety Director Visit [facility] Health Professional Vitaly Sosa MD [address] [facility] [place] [address] Arrived Office Building 2, [facility] Phlebotomy Lab Professional Office Building [address] [facility] , [address] [place] [address] Allergies No Known Allergiesdocumented as of this encounter (statuses as of 06/26/2019) Medications Medication Sig Dispensed Refills Start Date [...] mg by 0 Active tablet mouth daily. [place]-3 Fatty Acids Take by mouth. 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
[2019-07-30 08:58] VITALS: BP 152/92; TEMP 97.9; O2SAT 96; BMI 28.2
--- NOTE | 2019-07-30 09:53 | RAD REPORT ---
EXAM DESCRIPTION: US - Abdomen Exam Limited - 07/30/2019 9:38 am CLINICAL HISTORY: ASCITES COMPARISON: Abdomen Exam Complete dated 05/29/2019 FINDINGS: The patient was referred for ultrasound-guided paracentesis procedure. Preprocedure scanning of the abdomen demonstrated only a small amount of ascites was present. The nan unt of ascites is insufficient for drainage at this time. IMPRESSION: Insufficient ascites present for paracentesis at this time.
== END 2019-07-30 09:44 | disposition home or self-care (01) ==
LOC: DS 08:12
PROVIDERS: ATTEND Internal Medicine Gastroenterology
DX: R18.8 Other ascites (principal); Z53.8 Procedure and treatment not carried out for other reasons
CPT/HCPCS: 76705

== ENCOUNTER 2019-09-11 09:37 | Day surgery (SDC) | payer OTHER ==
[2019-09-11 11:12] VITALS: BMI 29.5
--- NOTE | 2019-09-11 13:06 | RAD REPORT ---
EXAM DESCRIPTION: US - Paracentesis Proc Guidance - 09/11/2019 12:40 pm CLINICAL HISTORY: Liver disease with ascites FINDINGS: The risks, benefits and alternatives to the procedure were explained to the patient and in formed consent obtained. The skin and subcutaneous tissues were anesthetized with Lidocaine. Under sonographic guidance an 8 F rench catheter was placed into the right lower quadrant. 5 liters of yellow fluid removed. Fluid was sent to the lab. The patient experienced no immediate complication. IMPRESSION: Paracentesis
[2019-09-11 14:39] VITALS: O2SAT 94
[2019-09-11 14:55] VITALS: BP 140/87; TEMP 97.5
--- OUTSIDE RECORDS SUMMARY | 2019-09-20 19:29 | XMS REPORT ---
:1960 [facility] Address [address] [place] [address] Dr. Agu[address] [place] [address] Care Team Providers Name Role Phone LION GRIFFITHS Primary Care Provider Unavailable Problems This patient has no known problems. Allergies, Adverse Reactions, Alerts This patient has no known allergies or adverse reactions. Medications This patient has no known medications. Encounters Start End Encounter Admission Attending Care Care Encounter Date/Time Date/Time Type Type Clinicians Facility Department ID 2017-10-08 Inpatient C [facility] [id number] 07:14:00 2017-08-29 Inpatient [facility] [id number] 13:35:00 2017-07-03 Inpatient C [facility] [id number] 15:05:00 2018-05-23 2018-05-23 Emergency [facility] [id number] 20:46:01 20:46:01 2018-05-23 2018-05-23 Emergency [facility] [id number] 19:26:42 19:26:42 2017-08-12 2017-08-12 Outpatient C [facility] [id number] 09:26:00 09:26:00 2017-06-13 2017-06-13 Outpatient C [facility] [id number] 14:15:00 14:15:00 2017-06-05 2017-06-05 Outpatient C [facility] [id number] 09:33:00 09:33:00 2017-03-19 2017-03-19 Outpatient C [facility] KIKA [id number] 07:13:00 07:13:00 2017-02-06 2017-02-06 Outpatient C [facility] KIKA [id number] 07:43:00 07:43:00 2017-01-08 2017-01-08 Outpatient C [facility] [id number] 07:03:00 07:03:00 Results Test Description Test Time Test Comments Text Results Atomic Results Result Comments [facility] 2017-06-05 14:43:00 ULTRASOUND DIRECTED W/IMAGING PARACENTESIS:CLINICAL HISTORY: [...] to large volume ascites.IMPRESSION:1. Moderate volume ascites. [facility] 2017-03-19 12:25:33 Information: AscitesUltrasound W/IMAGING guided paracentesisFollowing [...] andsatisfactory conditionIMPRESSION:1. Ultrasound-guided paracentesis as described above. [facility] 2017-02-06 11:52:16 Information: CirrhosisShunt W/IMAGING paracentesisFollowing verbal [...] waveformanalysis. Hepatic elastography measurements were made utilizing [employer] Epiq 7 ultrasound unit (C5-1 multifrequency transducer).HISTORY: [...] of mass. The splenic indexis 2264 cc (sojgbv=002-142 cc). Splenic volume is 1343 ml (owzzga=525 - 340 ml). Splenic weight is 1410 gm (fopmlg=743 - 360 gm).Pancreas: The pancreatic head and [...] waveformanalysis. Hepatic elastography measurements were made utilizing [employer] 7 ultrasound unit (C5-1 multifrequency transducer).HISTORY: Cirrhosis..COMPARISON: [...] of mass. The splenic indexis 2264 cc (cpfhvz=333-356 cc). Splenic volume is 1343 ml (evwqtj=759 - 340 ml). Splenic weight is 1410 gm (tpgmmt=044 - 360 gm).Pancreas: The pancreatic head and [...]
--- OUTSIDE RECORDS SUMMARY | 2019-09-20 19:30 | XMS REPORT ---
:1960 Author Organization [employer] Care Team Providers Name Role Phone Bella Smith Provider Role Unavailable Allergies, Adverse Reactions, Alerts Substance Reaction Event Type N.K.D.A. Info Not Available Non Drug Allergy Problems Problem Type Condition Code Onset Dates Condition Status Problem Other ascites R18.8 Active Problem Unspecified cirrhosis of liver K74.60 Active Assessment Other ascites R18.8 Active Assessment Unspecified cirrhosis of liver K74.60 Active Assessment Chronic hepatitis C without hepatic B18.2 Active coma Problem History of CVA with residual I69.30 Active deficit Problem Carotid stenosis, right I65.21 Active Problem Chronic hepatitis C without hepatic B18.2 Active coma Problem Essential hypertension I10 Active Problem Pure hypercholesterolemia E78.00 Active Problem Arthritis of left knee M17.12 Active Problem Arthritis of shoulder region, 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 27394273691 40 MG Orally June 03, Active 1 tablet Once a day [address] [facility] 25829088227 5 MG Orally Active 1 tablet Besylate Once a day Spironolactone ND 60237963200 100 MG Orally Active 1 tablet Once a day with food Clopidogrel ND 54947644526 75 MG Orally June 03, Active 1 tablet Bisulfate Once a day [address] [facility] 47317303463 40 MG Orally Active 1 tablet Once a day Atorvastatin [facility] 35545715508 20 MG Orally June 03, Active 1 tablet Calcium Once a day 2018 Results No Known Results Summary Purpose eClinicalWorks Submission
== END 2019-09-11 13:50 | disposition home or self-care (01) ==
LOC: DS 09:37
PROVIDERS: ATTEND Nurse Practitioner Family
DX: R18.8 Other ascites (principal); K74.60 Unspecified cirrhosis of liver; B18.2 Chronic viral hepatitis C
CPT/HCPCS: 49083; 87070

== ENCOUNTER 2019-11-26 17:50 | Inpatient (IN) | payer OTHER ==
--- OUTSIDE RECORDS SUMMARY | 2019-11-26 17:52 | XMS REPORT ---
:1960 [facility] Address [address] [place] [address] Care Team Providers Name Role Phone LION GRIFFITHS Primary Care Provider Unavailable Problems This patient has no known problems. Allergies, Adverse Reactions, Alerts This patient has no known allergies or adverse reactions. Medications This patient has no known medications. Encounters Start End Encounter Admission Attending Care Care Encounter Date/Time Date/Time Type Type Clinicians Facility Department ID 2017-10-08 Inpatient C [facility] [id number] 07:14:00 2017-08-29 Inpatient [facility] [id number] 13:35:00 2017-07-03 Inpatient C [facility] [id number] 15:05:00 2018-05-23 2018-05-23 Emergency [facility] [id number] 20:46:01 20:46:01 2018-05-23 2018-05-23 Emergency [facility] [id number] 19:26:42 19:26:42 2017-08-12 2017-08-12 Outpatient C [facility] [id number] 09:26:00 09:26:00 2017-06-13 2017-06-13 Outpatient C [facility] [id number] 14:15:00 14:15:00 2017-06-05 2017-06-05 Outpatient C [facility] [id number] 09:33:00 09:33:00 2017-03-19 2017-03-19 Outpatient C [facility] KIKA [id number] 07:13:00 07:13:00 2017-02-06 2017-02-06 Outpatient C [facility] KIKA [id number] 07:43:00 07:43:00 2017-01-08 2017-01-08 Outpatient C [facility] [id number] 07:03:00 07:03:00 Results Test Description Test Time Test Comments Text Results Atomic Results Result Comments [facility] 2017-06-05 14:43:00 ULTRASOUND DIRECTED W/IMAGING PARACENTESIS:CLINICAL [...] to large volume ascites.IMPRESSION:1. Moderate volume ascites. [facility] 2017-[facility] 12:25:33 Information: AscitesUltrasound W/IMAGING guided paracentesisFollowing [...] andsatisfactory conditionIMPRESSION:1. Ultrasound-guided paracentesis as described above. [facility] 11:52:16 Information: CirrhosisShunt W/IMAGING paracentesisFollowing verbal [...] condition.IMPRESSION:1. Ultrasound-guided paracentesis as described above. [facility], 2017-01-08 11:44:42 EXAM: Abdominal Sonography with ABD/PELV [employer]TD Hepatic Elastography.TECHNIQUE: Serial multiplanar grayscale imaging with/without Dopplerinterrogation including color flow imaging and Doppler waveformanalysis. Hepatic elastography measurements were made utilizing [employer] Epiq 7 ultrasound unit (C5-1 multifrequency transducer).HISTORY: [...] of mass. The splenic indexis 2264 cc (gjecgq=007-975 cc). Splenic volume is 1343 ml (zuvjlp=492 - 340 ml). Splenic weight is 1410 gm (zzqtxo=796 - 360 gm).Pancreas: The pancreatic head and [...] waveformanalysis. Hepatic elastography measurements were made utilizing [employer] 7 ultrasound unit (C5-1 multifrequency transducer).HISTORY: Cirrhosis..COMPARISON: [...] of mass. The splenic indexis 2264 cc (oqdcqc=071-796 cc). Splenic volume is 1343 ml (cacycv=048 - 340 ml). Splenic weight is 1410 gm (psnfwa=120 - 360 gm).Pancreas: The pancreatic head and [...]
--- OUTSIDE RECORDS SUMMARY | 2019-11-26 17:53 | XMS REPORT ---
:1960 Author Organization eClinicalWorks Care Team Providers Name Role Phone Bella Smith Provider Role Unavailable Allergies No Known Allergies [...]
--- OUTSIDE RECORDS SUMMARY | 2019-11-26 17:53 | XMS REPORT ---
[...] System Date Date Lisinopril [facility] 67752945976 40 MG Orally June 03, Active 1 tablet Once a day [address] [facility] 67380166685 5 MG Orally Active 1 tablet Besylate Once a day Spironolactone ND 61070935617 100 MG Orally Active 1 tablet Once a day with food Clopidogrel ND 67042019466 75 MG Orally June 03, Active 1 tablet Bisulfate Once a day [address] [facility] 48738979491 40 MG Orally Active 1 tablet Once a day Atorvastatin [facility] 60706433461 20 MG Orally June 03, Active 1 tablet Calcium Once a day 2018 Results No Known Results Summary Purpose eClinicalWorks Submission
[2019-11-26] MEDS ORDERED: FUROSEMIDE 40 MG/4 ML VIAL ONE (18:36)
[2019-11-26] MEDS ORDERED: LEVALBUTEROL 1.25 MG/3 ML NEB ONE ×2 (18:37→19:10)
--- NOTE | 2019-11-26 18:44 | RAD REPORT ---
EXAM DESCRIPTION: RAD - Chest Single View - 11/26/2019 6:17 pm CLINICAL HISTORY: Worsening shortness of breath COMPARISON: May 31 TECHNIQUE: AP portable chest image was obtained 1814 hours . FINDINGS: There is complete opacification of the right hemithorax most likely due to development of a large right pleural effusion. Trachea remains midline. No acute left lung parenchymal process. No l eft-sided pleural effusion. Heart is mostly obscured. Cardiomegaly is not suspected. No pneumothorax. No acute bony abnormality seen. No acute aortic findings suspected. IMPRESSION: Complete right hemithorax opacification from large pleural effusion. Left lung field is clear.
--- NOTE | 2019-11-26 18:54 | EDPHYS ---
Physician Documentation [facility] Name: Blaise Renee Age: 59 yrs Sex: Male : 1960 Arrival Date: 11/26/2019 Time: 17:51 Bed 2 Private MD: ED Physician Bradly Lundberg HPI: 11/26 18:16 This 59 yrs old Male presents to ER via Wheelchair with complaints of rn Shortness Of Breath, Abdominal Swelling. 18:16 The patient has shortness of breath at rest. Onset: The symptoms/episode began/occurred rn at an unknown time. The patient's shortness of breath is aggravated by exertion. Severity of symptoms: At their worst the symptoms were moderate in the emergency department the symptoms are unchanged. The patient has experienced similar episodes in the past. Reports ongoing abd swelling, has cirrhosis, has scheduled outpt paracentesis tomorrow, here at 0730, but couldn't make it. Worsening sob over last week, feels like from abd swelling. No new abd pain or fever. + smoker. . Historical: - Allergies: 18:05 No Known Allergies; ph - PMHx: 18:05 Cirrhosis; ph - Immunization history:: Adult Immunizations up to date, Flu vaccine is not up to date. - Social history:: Smoking status: Patient uses tobacco products, Patient states he is trying to quit and is down to one to two cigarettes an day.. - Family history:: not pertinent. - Ebola Screening: : No symptoms or risks identified at this time. - Hospitalizations: : No recent hospitalization is reported. ROS: 18:16 Constitutional: Negative for fever, chills, and weight loss, Eyes: Negative for injury, rn pain, redness, and discharge, Neck: Negative for injury, pain, and swelling, Cardiovascular: + edema Respiratory: + sob Abdomen/GI: + abd swelling MS/Extremity: Negative for injury and deformity, Skin: Negative for injury, rash, and discoloration, Neuro: Negative for headache, weakness, numbness, tingling, and seizure. Exam: 18:16 Constitutional: cachectic male with distended abdomen, + tachypnea Head/Face: rn Normocephalic, atraumatic. ENT: dry MM Cardiovascular: Tachycardic, regular Respiratory: + moderate tachypnea with wheezing Abdomen/GI: distended abdomen with + fluid wave, no rebound MS/ Extremity: Pulses equal, no cyanosis. Neurovascular intact. 2+ pitting lower ext edema Neuro: Awake and alert, GCS 15, oriented to person, place, time, and situation. Cranial nerves II-XII grossly intact. Motor strength 5/5 in all extremities. Sensory grossly intact. Vital Signs: 18:05 BP 177 / 120; Pulse 98; Resp 40; Temp 97.9; Pulse Ox 98% on R/A; Weight 87.09 kg; ph Height 5 ft. 6 in. (167.64 cm); Pain 7/10; 19:00 BP 175 / 112; Pulse 86; Resp 27; Pulse Ox 99% on 25% BiPAP; Pain 0/10; vc 20:00 BP 164 / 104; Pulse 80; Resp 27; Temp 97.6; Pulse Ox 99% on R/A; Pain 0/10; vc 21:00 BP 180 / 116; Pulse 98; Resp 26; Pulse Ox 96% on 2 lpm NC; Pain 0/10; vc 21:40 BP 170 / 116 Sitting (man/); Pulse 92; Resp 27; Pulse Ox 97% on 2 lpm NC; Pain 0/10; vc 18:05 Body Mass Index 30.99 (87.09 kg, 167.64 cm) ph MDM: 17:59 Patient medically screened. rn 18:52 Differential diagnosis: ascites, cirrhosis, volume overload. Data reviewed: vital rn signs, nurses notes, lab test result(s), radiologic studies, and as a result, I will admit patient. Counseling: I had a detailed discussion with the patient and/or guardian regarding: the historical points, exam findings, and any diagnostic results supporting the discharge/admit diagnosis, lab results, radiology results, the need for further work-up and treatment in the hospital. Response to treatment: the patient's symptoms have markedly improved after treatment, and as a result, I will admit patient. Admission orders: after a detailed discussion of the patient's condition and case, the admit orders are written by me. ED course: Pt much improved on bipap and with lasix, will not do well if discharged to wait until tomorrow due to mechanical breathing issues, will admit to Dr. Lennon for paracentesis in AM.. 11/26 18:06 Order name: CBC with Diff; Complete Time: 19:37 rn 11/26 18:06 Order name: Basic Metabolic Panel; Complete Time: 19:37 rn 11/26 18:06 Order name: Protime (+inr); Complete Time: 19:37 rn 11/26 18:06 Order name: Ptt, Activated; Complete Time: 19:37 rn 11/26 20:19 Order name: CBC with Automated Diff EDMS 11/26 20:19 Order name: CBC with Automated Diff EDMS 11/26 18:06 Order name: XRAY Chest (1 view); Complete Time: 18:53 rn 11/26 18:06 Order name: EKG; Complete Time: 18:07 rn 11/26 18:06 Order name: BIPAP rn 11/26 20:19 Order name: CONS Pharmacy Consult EDMS 11/26 20:19 Order name: Comprehensive Metabolic Panel EDMS 11/26 20:19 Order name: Comprehensive Metabolic Panel EDMS 11/26 18:06 Order name: IV Start; Complete Time: 19:18 rn 11/26 18:06 Order name: EKG - Nurse/Tech; Complete Time: 19:40 rn 11/26 20:19 Order name: NPO EDMS Administered Medications: 19:10 Drug: Lasix 40 mg Route: IVP; Site: left antecubital; sg 19:15 Drug: Xopenex (3) 1.25 mg Route: Inhalation; sg Disposition: 11/26/19 18:53 Hospitalization ordered by Rita Lennon for Observation. Preliminary diagnosis are Ascites, Dyspnea, unspecified, Edema, unspecified. - Bed requested for Telemetry/MedSurg (observation). - Status is Observation. vc - Condition is Stable. - Problem is new. - Symptoms have improved. UTI on Admission? No Signatures: Dispatcher [employer] EDHI Josh Monroe RN RN sg Bradly Lundberg MD MD rn Attema, Lee, [employer]-C [employer]-Cla1 Wendi Armenta RN RN tl1 Susie Hayes RN RN Mandie Gates RN RN vc Corrections: (The following items were deleted from the chart) 21:04 18:53 Hospitalization Ordered by Rita Lennon MD for Observation. Preliminary tl1 diagnosis is Ascites; Dyspnea, unspecified; Edema, unspecified. Bed requested for Telemetry/MedSurg (observation). Status is Observation. Condition is Stable. Problem is new. Symptoms have improved. UTI on Admission? No. rn 21:58 21:04 11/26/2019 18:53 Hospitalization Ordered by Rita Lennon MD for Observation. vc Preliminary diagnosis is Ascites; Dyspnea, unspecified; Edema, unspecified. Bed requested for Telemetry/MedSurg (observation). Status is Observation. Condition is Stable. Problem is new. Symptoms have improved. UTI on Admission? No. tl1
--- NOTE | 2019-11-26 18:54 | ER ---
Nurse's Notes [facility] Name: Blaise Renee Age: 59 yrs Sex: Male : 1960 Arrival Date: 11/26/2019 Time: 17:51 Bed 2 Private MD: Diagnosis: Ascites;Dyspnea, unspecified;Edema, unspecified Presentation: 11/26 17:59 Presenting complaint: Patient states: SOB that worsened today, labored breathing w/ ph retractions noted, abdomen distended, scheduled for paracentesis tomorrow. Transition of care: patient was not received from another setting of care. Onset of symptoms was November 26, 2019. Risk Assessment: Do you want to hurt yourself or someone else? Patient reports no desire to harm self or others. Initial Sepsis Screen: Does the patient meet any 2 criteria? RR > 20 per min. Does the patient have a suspected source of infection? No. Patient's initial sepsis screen is negative. Care prior to arrival: None. 17:59 Method Of Arrival: Wheelchair 17:59 Acuity: TRICIA 2 ph Triage Assessment: 21:38 General: Appears in no apparent distress. uncomfortable, Behavior is calm, cooperative. vc Pain: Denies pain. EENT: No signs and/or symptoms were reported regarding the EENT system. Neuro: Level of Consciousness is awake, alert, obeys commands, Oriented to person, place, time. Cardiovascular: Capillary refill < 3 seconds. Respiratory: Onset: The symptoms/episode began/occurred gradually, the patient has moderate shortness of breath. Respiratory: Reports shortness of breath at rest cough that is non-productive, hacking, persistent Airway is patent Respiratory effort is unlabored, weak, Respiratory pattern is tachypnea. Historical: - Allergies: 18:05 No Known Allergies; ph - PMHx: 18:05 Cirrhosis; ph - Immunization history:: Adult Immunizations up to date, Flu vaccine is not up to date. - Social history:: Smoking status: Patient uses tobacco products, Patient states he is trying to quit and is down to one to two cigarettes an day.. - Family history:: not pertinent. - Ebola Screening: : No symptoms or risks identified at this time. - Hospitalizations: : No recent hospitalization is reported. Screenin:30 Abuse screen: Denies threats or abuse. Denies injuries from another. Nutritional sg screening: No deficits noted. Tuberculosis screening: No symptoms or risk factors identified. Never had TB. Fall Risk None identified. Assessment: 18:36 General: Appears in no apparent distress. uncomfortable, ill, well groomed, well sg developed, well nourished, Behavior is calm, cooperative, appropriate for age. Pain: Denies pain. Neuro: Level of Consciousness is awake, alert, obeys commands, Oriented to person, place, time, Moves all extremities. Speech is normal. Cardiovascular: Capillary refill is brisk in bilateral fingers Patient's skin is warm and dry. Chest pain is denied. Respiratory: Airway is patent Respiratory effort is labored, shallow, weak, Respiratory pattern is regular, symmetrical, Breath sounds with crackles Breath sounds are diminished in right posterior middle lobe. GI: Abdomen is round distended, Bowel sounds present X 4 quads. Reports tolerance of fluids, tolerance of food. : No signs and/or symptoms were reported regarding the genitourinary system. EENT: No signs and/or symptoms were reported regarding the EENT system. Derm: Skin is pink, warm \\T\\ dry. Musculoskeletal: Circulation, motion, and sensation intact. Range of motion: intact in all extremities. 19:28 Reassessment: Patient will not wear his bipap. Bipap removed, patient on 2l nasal vc canula. Will continue to monitor. 20:30 Reassessment: Patient and/or family updated on plan of care and expected duration. Pain vc level reassessed. Patient denies pain at this time. Patient states symptoms have not improved. 20:30 Reassessment: Patient urinated 1 time since lasix administered. Patient states he is vc too far from restroom, "I can pee more when I'm closer to the bathroom.". 21:00 Cardiovascular: Rhythm is sinus rhythm. vc 21:30 Reassessment: Patient encouraged to put bipap back on. Patient refuses. He states it is vc too tight and hurts my face. Vital Signs: 18:05 BP 177 / 120; Pulse 98; Resp 40; Temp 97.9; Pulse Ox 98% on R/A; Weight 87.09 kg; ph Height 5 ft. 6 in. (167.64 cm); Pain 7/10; 19:00 BP 175 / 112; Pulse 86; Resp 27; Pulse Ox 99% on 25% BiPAP; Pain 0/10; vc 20:00 BP 164 / 104; Pulse 80; Resp 27; Temp 97.6; Pulse Ox 99% on R/A; Pain 0/10; vc 21:00 BP 180 / 116; Pulse 98; Resp 26; Pulse Ox 96% on 2 lpm NC; Pain 0/10; vc 21:40 BP 170 / 116 Sitting (man/); Pulse 92; Resp 27; Pulse Ox 97% on 2 lpm NC; Pain 0/10; vc 18:05 Body Mass Index 30.99 (87.09 kg, 167.64 cm) ph ED Course: 17:51 Patient arrived in ED. as 17:59 Bradly Lundberg MD is Attending Physician. rn 18:04 Triage completed. ph 18:05 Arm band placed on Patient placed in an exam room, on a stretcher, on laboratory monitor, ph on pulse oximetry. 18:16 XRAY Chest (1 view) In Process Unspecified. EDMS 18:53 Rita Lennon MD is Hospitalizing Provider. rn 18:58 Report given to Verna SALEH and Justin SALEH. sv 19:00 Patient has correct armband on for positive identification. vc 19:10 Initial lab(s) drawn, by ED staff, sent to lab. IV inserted by Isha SALEH. Inserted sg saline lock: 22 gauge in left antecubital area, using aseptic technique. Blood collected. 19:36 Mandie Gates RN is Primary Nurse. vc 21:57 No provider procedures requiring assistance completed. Patient admitted, IV remains in vc place. Administered Medications: 19:10 Drug: Lasix 40 mg Route: IVP; Site: left antecubital; sg 19:15 Drug: Xopenex (3) 1.25 mg Route: Inhalation; sg Outcome: 18:53 Decision to Hospitalize by Provider. rn 21:57 Admitted to Tele accompanied by tech, via wheelchair, room 426, with oxygen, with vc chart, Report called to THERESE Mcmullen 21:57 Condition: stable vc 21:57 Instructed on the need for admit, The need to be on bipap. 21:58 Patient left the ED. vc Signatures: Dispatcher [employer] EDMS Renu Greer RN RN Josh Monroe RN RN sg Martinez, Amelia as Nieto Bradly, MD MD rn Freddy, Susie, THERESE RN ph Mandie Gates RN RN vc
[2019-11-26 19:09] LABS: Absolute Lymphocytes (CBC) 1.1 K/uL (0.7-4.9); Basophils % 0.8 % (0-1.3); Hematocrit 41.8 % (39.6-49.0); Lymphocytes % 19.4 % (15.3-44.8); MPV 8.2 fL (7.6-11.3); RBC Red Blood Cell Count 4.93 M/uL (4.33-5.43)
[2019-11-26 19:23] LABS: BUN Blood Urea Nitrogen 12 mg/dL (7-18); Bicarbonate 31 mmol/L (21-32); Glucose Level 83 mg/dL (74-106); Potassium 3.9 mmol/L (3.5-5.1); Sodium Level 144 mmol/L (136-145)
[2019-11-26] MEDS ORDERED: ACETAMINOPHEN 500 MG TAB PO PRN (20:15)
[2019-11-26] MEDS ORDERED: ONDANSETRON 4 MG/2 ML VIAL IV PRN (20:15)
[2019-11-26] MEDS ORDERED: METOPROLOL TARTRATE 5 MG/5 ML INJ IV PRN (22:30)
[2019-11-26] MEDS: ATORVASTATIN 20 MG TAB PO SCH (22:43)
[2019-11-26] MEDS: LORazepam 2 MG/ML VIAL IV PRN (22:51)
[2019-11-27] MEDS ORDERED: FUROSEMIDE 20 MG/ 2ML VIAL IV ONE ×2 (00:11→04:59)
[2019-11-27] MEDS: FUROSEMIDE 40 MG/4 ML VIAL IV SCH ×3 (00:11→17:34)
[2019-11-27] MEDS: MORPHINE 2 MG/ML SYR IV PRN (00:17)
[2019-11-27] MEDS: LORazepam 2 MG/ML VIAL IV PRN (04:21)
[2019-11-27 04:43] LABS: ALT/SGPT 30 U/L (12-78); AST/SGOT 44 U/L (15-37); Albumin 2.2 g/dL (3.4-5.0); Alkaline Phosphatase 93 U/L (45-117); BUN Blood Urea Nitrogen 13 mg/dL (7-18); Bicarbonate 30 mmol/L (21-32); Bilirubin Total 0.4 mg/dL (0.2-1.0); Glucose Level 96 mg/dL (74-106); Potassium 3.7 mmol/L (3.5-5.1); Protein, Total 6.1 g/dL (6.4-8.2); Sodium Level 144 mmol/L (136-145)
[2019-11-27 04:46] LABS: Basophils % 1.4 % (0-1.3); Lymphocytes % 17.8 % (15.3-44.8); MPV 8.5 fL (7.6-11.3); RBC Red Blood Cell Count 4.54 M/uL (4.33-5.43)
[2019-11-27] MEDS ORDERED: ALBUMIN HUMAN 25% 50 ML IV ONE (04:59)
--- NOTE | 2019-11-27 07:40 | P.HP ---
Certification for Inpatient Patient admitted to: Inpatient With expected LOS: >2 Midnights Patient will require the following post-hospital care: None Practitioner: I am a practitioner with admitting privileges, knowledge of patient current condition, hospital course, and medical plan of care. Services: Services provided to patient in accordance with Admission requirements found in Title 42 Section 412.3 of the Code of Federal Regulations Patient History Date of Service: 11/26/19 Reason for admission: Pleural effusion/ascites History of Present Illness: Patient is a 59-year-old gentleman who came to the hospital with shortness of breath. Patient has been diagnosed with ascites. Patient also has a large amount of pleural fluid. Patient is requiring thoracentesis and paracentesis. However, the most pressing thing is for him to get a thoracentesis. If his clinical condition deteriorates will go ahead and do one by bedside. Otherwise , the plan is to get this done in the a.m. with [id number] thoracentesis. Patient will be diuresed as well. Afterwards, once the thoracentesis completed we can look at trying to do a paracentesis over the next 24-48 hr. Allergies No Known Allergies Allergy (Verified 07/30/19 09:13) Home Medications: Amlodipine [Norvasc] 5 mg PO DAILY 05/28/19 Atorvastatin Calcium [Lipitor] 20 mg PO BEDTIME 05/28/19 Clopidogrel Bisulfate [Plavix] 75 mg PO DAILY 05/28/19 lisinopriL [Prinivil] 20 mg PO DAILY 05/28/19 Furosemide [Lasix] 40 mg PO DAILY #20 tab 06/01/19 Spironolactone [Aldactone] 50 mg PO DAILY #90 tablet 06/01/19 - Past Medical/Surgical History Has patient received pneumonia vaccine in the past: No Diabetic: No -: CVA (11/11/2017) -: Fall(05/27/19) -: Hep C -: HTN - Family History Father Family History: Reviewed- Non-Contributory - Social History Smoking Status: Light Tobacco smoker (1-9 cigarettes/day) Alcohol use: No CD- Drugs: No Caffeine use: Yes Place of Residence: Home Review of Systems 10-point ROS is otherwise unremarkable Physical Examination - Vital Signs Temperature: 97.0 F Blood Pressure: 177/65 Pulse: 78 Respirations: 29 Pulse Ox (%): 96 - Physical Exam General: Alert, In no apparent distress, Oriented x3 HEENT: Atraumatic, PERRLA, Mucous membr. moist/pink, EOMI, Sclerae nonicteric Neck: Supple, 2+ carotid pulse no bruit, No LAD, Without JVD or thyroid abnormality Respiratory: Diminished (No breath sounds on the right) Cardiovascular: Regular rate/rhythm, Normal S1 S2, No murmurs Gastrointestinal: Normal bowel sounds, Soft and benign, Non-distended, No tenderness Musculoskeletal: No clubbing, No swelling, No tenderness Integumentary: No rashes Neurological: Normal gait, Normal speech, Normal strength at 5/5 x4 extr, Normal tone, Sensation intact, Cranial nerves 3-12 intact, Normal affect Lymphatics: No axilla or inguinal lymphadenopathy - Studies Laboratory Data (last 24 hrs) 11/26/19 19:00: PT 11.8, INR 1.00, APTT 30.4 11/26/19 19:00: Sodium 144, Potassium 3.9, BUN 12, Creatinine 0.86, Glucose 83 11/26/19 19:00: WBC 5.7, Hgb 13.9, Hct 41.8, Plt Count 176 Assessment & Plan - Problems (Diagnosis) (1) Pleural effusion, right Current Visit: Yes Status: Acute (2) Ascites Current Visit: Yes Status: Acute (3) Anasarca Current Visit: No Status: Acute (4) History of CVA with residual deficit Current Visit: No Status: Acute (5) Liver cirrhosis Current Visit: No Status: Acute Qualifiers: Hepatic cirrhosis type: unspecified hepatic cirrhosis Ascites presence: with ascites Qualified Code(s): K74.60 - Unspecified cirrhosis of liver; R18.8 - Other ascites (6) HTN (hypertension) Current Visit: No Status: Chronic Qualifiers: Hypertension type: essential hypertension Qualified Code(s): I10 - Essential (primary) hypertension (7) Hepatitis C Current Visit: No Status: Chronic Qualifiers: Viral hepatitis chronicity: chronic Hepatic coma status: without hepatic coma Qualified Code(s): B18.2 - Chronic viral hepatitis C - Plan Plan: 1. Plan do a ultrasound-guided thoracentesis in a.m. 2. Will get pulmonary and GI consultation 3. Continue to diurese at bedside with albumin and Lasix 4. Diagnostic studies will be sent as well 5. Wean off BiPAP support 6. GI and DVT prophylaxis Discharge Plan: Home Plan to discharge in: Greater than 2 days - Advance Directives Does patient have a Living Will: No Does patient have a Durable POA for Healthcare: No - Code Status/Comfort Care Code Status Assessed: Yes Code Status: Full Code Critical Care: No Time Spent Managing PTS Care (In Minutes): 50
--- NOTE | 2019-11-27 08:09 | EKG ---
Test Date: 2019-11-26 Test Time: 18:00:17 Supervisor [place] Department: [facility] MEASUREMENT RESULTS: Intervals: Rate: 89 GA: QRSD: 86 QT: 436 QTc: 530 [place]: P: GA: QRS: -12 T: 6 INTERPRETIVE STATEMENTS: Accelerated Junctional rhythm with fusion complexes Septal infarct, age undetermined Prolonged QT Abnormal ECG No previous ECG available for comparison Electronically Signed On 11-27-19 08:07:25 MARRIAGE THERAPIST by Sam Dyer
[2019-11-27] MEDS ORDERED: CLOPIDOGREL 75 MG TABLET PO SCH (09:00)
--- NOTE | 2019-11-27 09:38 | RAD REPORT ---
EXAM DESCRIPTION: US - Chest - 11/27/2019 9:27 am CLINICAL HISTORY: Shortness of breath FINDINGS: Large right pleural effusion is present IMPRESSION: Large right pleural effusion
--- NOTE | 2019-11-27 09:39 | P.CNS ---
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 Also complains of abdominal distension never had a thoracentesis as per patient denies any fever chills or chest pain he appears to be in respiratory distress and on a BiPAP Allergies No Known Allergies Allergy (Verified 07/30/19 09:13) Home Medications: Amlodipine [Norvasc] 5 mg PO DAILY 05/28/19 Atorvastatin Calcium [Lipitor] 20 mg PO BEDTIME 05/28/19 Clopidogrel Bisulfate [Plavix] 75 mg PO DAILY 05/28/19 lisinopriL [Prinivil] 20 mg PO DAILY 05/28/19 Furosemide [Lasix] 40 mg PO DAILY #20 tab 06/01/19 Spironolactone [Aldactone] 50 mg PO DAILY #90 tablet 06/01/19 - Past Medical/Surgical History Diabetic: No -: CVA (11/11/2017) -: Fall(05/27/19) -: Hep C -: HTN -: Carotid artery stenosis - Family History Father Family History: Reviewed- Non-Contributory - Social History Alcohol use: No CD- Drugs: No Caffeine use: Yes Place of Residence: Home Review of Systems General: Weakness Respiratory: Shortness of Breath Gastrointestinal: Distention Neurological: Weakness Physical Examination Temp Pulse Resp BP Pulse Ox 98 F 78 25 H 154/94 H 97 11/27/19 08:00 11/27/19 08:00 11/27/19 08:00 11/27/19 08:00 11/27/19 08:00 General: Alert, Moderate distress Respiratory: Diminished (Diminished air entry on the right side) Cardiovascular: Edema Gastrointestinal: Normal bowel sounds, No tenderness, No rebound, Distended Integumentary: No rashes, No breakdown Laboratory Data (last 24 hrs) 11/26/19 19:00: PT 11.8, INR 1.00, APTT 30.4 11/26/19 19:00: Sodium 144, Potassium 3.9, BUN 12, Creatinine 0.86, Glucose 83 11/26/19 19:00: WBC 5.7, Hgb 13.9, Hct 41.8, Plt Count 176 - Problems (1) Pleural effusion, right Current Visit: Yes Status: Acute Plan: Patient is 59 years of age with a history of cirrhosis of the liver secondary to hepatitis-C admitted with a massive pleural effusion on the right side chemistries reviewed he will need a chest tube general surgery patient is on Plavix Dr. Elise is aware blood pressure is little elevated patient does see a GI as an outpatient is on diuretics
--- NOTE | 2019-11-27 09:52 | P.PN ---
Subjective Date of Service: 11/27/19 Primary Care Provider: Mera Mariee NP Chief Complaint: Pleural effusion/ascites Subjective: Other (Patient on BiPAP at this time.) Physical Examination - Vital Signs Temperature: 98 F Blood Pressure: 154/94 Pulse: 78 Respirations: 25 Pulse Ox (%): 97 - Physical Exam General: Alert HEENT: Atraumatic Neck: Supple Respiratory: Diminished (To the right side) Cardiovascular: Normal pulses, Regular rate/rhythm Gastrointestinal: Normal bowel sounds, Ascites Musculoskeletal: No tenderness, No warmth Integumentary: No warmth, No cyanosis Neurological: Normal speech, Normal strength at 5/5 x4 extr, Normal tone, Normal affect - Studies Laboratory Data (last 24 hrs) 11/26/19 19:00: PT 11.8, INR 1.00, APTT 30.4 11/26/19 19:00: Sodium 144, Potassium 3.9, BUN 12, Creatinine 0.86, Glucose 83 11/26/19 19:00: WBC 5.7, Hgb 13.9, Hct 41.8, Plt Count 176 Medications List Reviewed: Yes Assessment & Plan Discharge Plan: Home Plan to discharge in: Greater than 2 days Physician Review Additional Text: Impression: Dyspnea secondary to large right pleural effusion Ascites with history of hepatitis-C/Cirrhosis Hypertension History of CVA with residual deficit Plan: Dyspnea secondary to large right pleural effusion: Patient currently on BiPAP at this time. Continued BiPAP at this time. Case discussed with sleeve presser operator. Quality Measurement Specialist has ordered ultrasound-guided thoracentesis. Pulmonology consulted to further evaluate. Will discuss further with pulmonology. Maintain sats above 93%. Ascites with history of hepatitis-C/Cirrhosis: Will monitor this closely. Continue diuretic therapy. Patient may require paracentesis during this hospitalization. Will discuss with his GI specialist. Hypertension: Continue medication. History of CVA with residual deficit: Continue medication. Time Spent Managing Pts Care (In Minutes): 55
[2019-11-27] MEDS ORDERED: LIDOCAINE 1% 20 ML MDV ONE ×2 (09:57→10:22)
--- NOTE | 2019-11-27 10:50 | P.OP ---
Preoperative diagnosis: RIGHT pleural effusion Postoperative diagnosis: RIGHT pleural Effusion Primary procedure: Placement of Pigtail RIGHT pleuracentesis catheter Anesthesia: Local 1% lidocaine Estimated blood loss: <1cc Specimen: Pleural Fluid Findings: Non-bloody yellow fluid - cloudy Complications: None Drain(s): Other (pigtail pleural catheter) Transferred to: Recovery Room Condition: Good
--- NOTE | 2019-11-27 11:43 | RAD REPORT ---
EXAM DESCRIPTION: Louis Single View11/27/2019 11:08 am CLINICAL HISTORY: Device placement chest tube placement IMPRESSION: A right chest tube has been placed. The tip overlies the lower mid right hemithorax. A pneumothorax is not visualized
[2019-11-27 12:08] LABS: Body Fluid WBC 192 /mm^3
[2019-11-27 13:25] LABS: Appearance TURBID (CLEAR); Body Fluid Source PLEURAL; Color of fluid Yellow (COLORLESS)
[2019-11-27] MEDS: AMLODIPINE 5 MG TAB PO SCH (14:27)
[2019-11-27] MEDS: lisinopriL 20 MG TAB PO SCH (14:27)
[2019-11-27] MEDS: SPIRONOLACTONE 25 MG TABLET PO SCH (14:28)
--- NOTE | 2019-11-27 16:37 | RAD REPORT ---
EXAM DESCRIPTION: RAD - Chest Single View - 11/27/2019 3:49 pm CLINICAL HISTORY: Right-sided pleural effusion, chest tube placement COMPARISON: November 27 TECHNIQUE: AP portable chest image was obtained 1543 hours . FINDINGS: Right-sided chest tube remains in place. Trachea remains midline. There is still complete opacification of the right hemithorax. Right apex is more lucent suggesting there is some early aerat ion of the right apex. No pneumothorax is seen. No new left lung field finding. No left-sided pleural effusion. IMPRESSION: Right-sided chest tube remains in place. No pneumothorax has developed. Slightly greater lucency in the right apex. The patient may have some improved early aeration of the right apex.
--- NOTE | 2019-11-27 19:32 | OP ---
Date of Procedure: 11/27/2019 Surgeon: Chris Robb MD, Brief History Of Present Illness: Patient is a 59-year-old male who came in with a large right pleur al effusion with complete opacification of the right hemothorax, as such, Dr. Anirudh Hurtado saw the patient, evaluated the patient and determined that the patient needed a right thoracostomy tube plac ed. Preoperative Diagnosis: Large right pleural effusion. Postoperative Diagnosis: Large right pleural effusion. Procedure Permformed: Placement of pigtail, right pleura centesis catheter, pigtail type. Anesthesia: Local 1% lidocaine. Estimated Blood Loss: Less than 1 mL. Specimens: Pleural fluid. Findings: Nonbloody yellow cloudy fluid returned. Complication: None. Drains: Pigtail pleural catheter placed on Pneumovax system. The patient remained in room in good condition throughout. Procedure In Detail: After informed consent was obtained, patient prepped and draped in the usual st erile fashion. After adequate anesthesia achieved in the area, the right 6 to 7th intercostal space anterior axillary line was appropriately anesthetized with 1% lidocaine. I made a small stab incisio n and placed the pigtail catheter using the overlying introducer sheath into apposition. I then plac ed this over the rib into the thoracic space and advanced the catheter while pulling the introducer s rigo back and deployed the pigtail at this point. I then suctioned back on the catheter device and obtained yellow cloudy fluid with no bloody component. I then secured this with a 2-0 nylon suture t o the chest wall, sterilize the area once again with ChloraPrep and placed sterile dressing over top and hooked the entire system to Pneumo Vac on 20 mm of negative continuous pressure. The patient bryon erated the procedure well, without evidence of complication, remained in room throughout the procedur e in good condition. All counts were correct at the end of case. TK/MODL Voice ID: [id number] Report ID: [id number]
[2019-11-27] MEDS: ATORVASTATIN 20 MG TAB PO SCH (21:24)
[2019-11-28] MEDS: FUROSEMIDE 40 MG/4 ML VIAL IV SCH ×3 (01:00→16:21)
--- NOTE | 2019-11-28 07:28 | RAD REPORT ---
EXAM DESCRIPTION: Louis Single View11/28/2019 6:59 am CLINICAL HISTORY: Chest tube placement COMPARISON: November 27, 2019 FINDINGS: Right chest tube remains in place. Opacification of the right hemithorax persists. No pne umothorax IMPRESSION: Opacification of the right hemithorax probably representing a combination of large pleu ral effusion with passive atelectasis
[2019-11-28] MEDS: SPIRONOLACTONE 25 MG TABLET PO SCH (09:06)
[2019-11-28] MEDS: AMLODIPINE 5 MG TAB PO SCH (09:06)
[2019-11-28] MEDS: lisinopriL 20 MG TAB PO SCH (09:06)
[2019-11-28 09:46] LABS: Urine Appearance CLOUDY; Urine Bilirubin NEGATIVE (NEG); Urine Blood 2+ (NEG); Urine Color YELLOW; Urine Glucose NEGATIVE (NEG); Urine Protein 3+ (NEG); Urine Urobilinogen 0.2 mg/dL (0.2-1.0); Urine pH 5.5 (5.0-7.0)
--- NOTE | 2019-11-28 09:56 | P.PN ---
Subjective Date of Service: 11/28/19 Primary Care Provider: Mera Mariee NP Chief Complaint: Pleural effusion/ascites Subjective: Improving (Patient shortness of breath his have improved he has drained approximately 2 L still his right lung is opacified denies any fever chills) Review of Systems General: Weakness Respiratory: Shortness of Breath Physical Examination - Vital Signs Temperature: 97.6 F Blood Pressure: 148/84 Pulse: 78 Respirations: 28 Pulse Ox (%): 98 - Physical Exam General: Alert, Moderate distress Respiratory: Diminished (Diminished air entry on the right side) Cardiovascular: No edema, Regular rate/rhythm - Studies Medications List Reviewed: Yes Assessment & Plan - Problems (Diagnosis) (1) Pleural effusion, right Current Visit: Yes Status: Acute Plan: Patient admitted with a significant right-sided pleural effusion despite draining 2 L is right lung is still opacified although air entry has improved on a nuclear predominance in his pleural fluid Gram stain is pending I placed a chest tube on suction
[2019-11-28] MEDS: SPIRONOLACTONE 100 MG TAB PO SCH (10:08)
[2019-11-28 10:34] LABS: Urine Bacteria 20-50 /HPF (NONE SEEN); Urine Culture Reflex Order REFLEXED; Urine Microscopic Reflex ORDER UMIC
--- NOTE | 2019-11-28 12:20 | PN ---
Subjective: Currently patient lying in bed. He has mild shortness of breath. No chest pain. No ab dominal pain. No nausea or vomiting. He has a lot of questions about his chest tube as well as his arthritis. Objective: Vital Signs: Blood pressure 148/84, respiratory rate 28, pulse 78, temperature 97.6. General: Patient is alert and oriented x3. Does not look in any distress. HEENT: Atraumatic, normocephalic. PERRLA. Oral mucosa is moist. Neck: Supple. No JVD. No bruits. Chest: Decreased breath sounds on the right side. Chest tube is noted. No expiratory wheezing. Heart: Regular rate and rhythm. S1, S2 normal. No gallop or murmur. Abdomen: Soft, nontender. No masses. No hepatosplenomegaly shifting dullness. Decrease d bowel sounds. Extremities: No clubbing, cyanosis, or edema. No calf tenderness. Neurologic: Grossly intact. Cranial nerve exam 2 through 12 intact. Normal sensation. Normal refl exes. Normal muscle strength. Laboratory Data: Today, showed CBC normal except for hemoglobin 13. Chemistry within normal except chloride 109, calcium 8.4, PT of 44. Chest x-ray today showed opacification of the right hemithorax probably representing combination of l obular effusion and passive atelectasis and pleural fluid cytology is pending. Assessment And Plan: 1.Progressive dyspnea secondary to large right pleural effusion, status post right-sided chest tube with 4 L during yesterday, Dr. Hurtado following the patient. He decided to tube at this point, given the high output. Continue patient on dialysis in the meantime with Lasix 20 mg IV ever y 8 hours. Aldactone 50 mg daily, will increase to 100. 2.Hypertension. Continue on Norvasc, lisinopril, and metoprolol as needed. Blood pressure this mor joni 148/84. 3.Liver cirrhosis with hepatitis C, advanced with recurrent ascites. Patient's exam is not impressi ve for his distended abdomen, so we will hold again given the high output thoracentesis ob servational chest tube yesterday. 4.History of cerebrovascular accident with no residual deficit. 5.Hyperlipidemia, on Lipitor. 6. for pain after chest tube placement and IM morphine. FUNMI/ELAINA Voice ID: [id number] Report ID: [id number]
[2019-11-28] MEDS: ATORVASTATIN 20 MG TAB PO SCH (22:00)
[2019-11-29] MEDS: FUROSEMIDE 40 MG/4 ML VIAL IV SCH ×3 (00:03→16:40)
[2019-11-29 06:37] LABS: Absolute Lymphocytes (CBC) 1.1 K/uL (0.7-4.9); Hematocrit 39.1 % (39.6-49.0); Lymphocytes % 16.2 % (15.3-44.8); MPV 8.7 fL (7.6-11.3); RBC Red Blood Cell Count 4.68 M/uL (4.33-5.43)
[2019-11-29 07:00] LABS: ALT/SGPT 27 U/L (12-78); AST/SGOT 44 U/L (15-37); Alkaline Phosphatase 77 U/L (45-117); BUN Blood Urea Nitrogen 14 mg/dL (7-18); Bicarbonate 32 mmol/L (21-32); Bilirubin Total 0.4 mg/dL (0.2-1.0); Glucose Level 96 mg/dL (74-106); Potassium 3.7 mmol/L (3.5-5.1); Protein, Total 5.3 g/dL (6.4-8.2); Sodium Level 142 mmol/L (136-145)
--- NOTE | 2019-11-29 08:37 | RAD REPORT ---
EXAM DESCRIPTION: CT - Thorax W/ Con - 11/28/2019 9:28 pm CLINICAL HISTORY: Pleural effusion, shortness of breath COMPARISON: Portable November 28 TECHNIQUE: Dynamically enhanced 5 mm thick images of the chest were obtained during administration o f 100 mL non-ionic IV contrast. All CT scans are performed using dose optimization technique as appropriate and may include automated exposure control or mA/KV adjustment according to patient size. FINDINGS: Patient has a very large right hydropneumothorax. There is complete atelectasis of the rig ht lower lobe and substantial but incomplete atelectasis of the right upper and right middle lobes. P atient's chest tube passes through the 6th intercostal space. The chest tube is in the air portion of the hydropneumothorax. Large amount of pleural fluid remains on the right. No loculations are seen. There is a slight right to left shift of the mediastinal structures and heart. Subcutaneous emphysema is present adjacent to the chest tube. The left lung field is clear. No left-sided pleural fluid. No chest wall mass or abnormal axillary ly mphadenopathy. No underlying malignancy seen. There is no endobronchial lesion. No mediastinal or hilar abnormal mas s or lymphadenopathy. Limited upper abdomen imaging shows ascites. There is nodularity of the liver capsule. Splenomegaly i s present. The structures are incompletely visualized. Findings were communicated to Dr. Hurtado 8:29 a.m. IMPRESSION: Very large right hydropneumothorax with the chest tube in the air portion of the hydropn eumothorax. Large right pleural effusion remains. The patient has a slight right to left midline shift of the med iastinal structures. Left lung field is clear. No left-sided pleural effusion. Limited upper abdomen imaging shows splenomegaly, ascites and suspected cirrhosis or hepatic parenchy mal disease. This can be evaluated as warranted.
--- NOTE | 2019-11-29 08:40 | RAD REPORT ---
EXAM DESCRIPTION: RAD - Chest Single View - 11/29/2019 7:29 am CLINICAL HISTORY: Pleural effusion, chest tube COMPARISON: CT chest November 28, portable chest November 28 TECHNIQUE: AP portable chest image was obtained 0650 hours . FINDINGS: Chest tube is in place. Patient has a large hydropneumothorax. The hydropneumothorax is a new finding. From available history, the chest film was obtained fall a chest tube was clamped. It is believed be chest tube has been placed back on suction subsequent to this film. There is a very slight right to left shift of the mediastinal and hilar structures. Left lung field i s clear. Heart size is normal. Vasculature within normal limits. No acute bony abnormality seen. No a cute aortic finding. Findings were telephoned to Dr. Hurtado 8:29 a.m. IMPRESSION: Chest tube is in place. The patient has a large right hydropneumothorax with slight righ t to left mediastinal and hilar shift. Moderately large amount of subcutaneous emphysema has developed along the right lateral chest. Left lung field is clear.
[2019-11-29] MEDS: SPIRONOLACTONE 100 MG TAB PO SCH (08:42)
[2019-11-29] MEDS: lisinopriL 20 MG TAB PO SCH (08:42)
[2019-11-29] MEDS: AMLODIPINE 5 MG TAB PO SCH (08:43)
--- NOTE | 2019-11-29 09:54 | RAD REPORT ---
EXAM DESCRIPTION: RAD - Chest Single View - 11/29/2019 9:19 am CLINICAL HISTORY: Chest tube, pleural effusion, right hydropneumothorax COMPARISON: November 19 TECHNIQUE: AP portable chest image was obtained 0913 hour . FINDINGS: It has large right hydropneumothorax remains. Findings are not substantially different fro m earlier study. Prominent subcutaneous emphysema remains. Overall lung volumes are low. Heart and vasculature are normal. No acute bony abnormality seen. No acute aortic findings suspected. IMPRESSION: Large right hydropneumothorax remains. No new or progressive mediastinal shift. Extensive subcutaneous emphysema right side of the chest.
--- NOTE | 2019-11-29 13:13 | PN ---
Subjective: Currently patient is sitting in the chair. He has no complaints. He continues to have dry cough. Continued to have mild shortness of breath. He is able to eat. No fever. No chills ove rnight. Review of Systems: Otherwise negative. Objective: Vital Signs: Blood pressure 151/73, respiratory rate 24, temperature 97.6, pulse 67. General: Patient is alert and oriented x3. Does not look in any distress. HEENT: Atraumatic, normocephalic. PERRLA. Oral mucosa is moist. Neck: Supple. No JVD. No bruits. Chest: Decreased breath sounds on the right side. Chest tube noted. No expiratory wheezing. Heart: Regular rate and rhythm. S1, S2 normal. No gallop or murmur. Abdomen: Soft, nontender. No hepatosplenomegaly. Positive bowel sounds. Extremities: No clubbing, cyanosis or edema. No calf tenderness. Neurologic: Grossly intact. Laboratory Studies: Today, CBC was normal except for hemoglobin 13.1. Chemistry within normal excep t for a calcium 7.8, AST of 44, and total protein of 53. Chest x-ray done twice this morning showed large right hydropneumothorax. No mediastinal shift. Extensive subcutaneous emphysema on the right side of the chest. Assessment And Plan: 1.Progressive dyspnea secondary to large right pleural effusion, status post right-sided chest tube, day 2 today, with a very high output. Dr. Hurtado following. The patient developed hydropneumotho rax post chest tube placement. Repeat x-ray twice this morning. There is no mediastinal shift. Con tinue tube feed at this point. Pulmonary managing. Gram stain and culture on preliminary so far neg ative. We will continue diuresis with Lasix 20 every 8 hours as well as Aldactone 100 mg daily given patient has ascites as well. 2.Liver cirrhosis with hepatitis C history with a large amount of ascites. Patient on diuresis with Lasix as well as Aldactone. No given the high output from the chest tube. 3.Hypertension. Blood pressure well controlled. Patient already on lisinopril, Norvasc and metopro lol. 4.History of cerebrovascular accident without residual deficit. 5.Hyperlipidemia. Patient on Lipitor. 6.Symptomatic treatment for pain after chest tube placement. 7.Deep vein thrombosis prophylaxis on hold given chest tube placement. Advised patient to ambulate. FUNMI/ELAINA Voice ID: [id number] Report ID: [id number]
--- NOTE | 2019-11-29 13:16 | RAD REPORT ---
EXAM DESCRIPTION: RAD - Chest Single View - 11/29/2019 1:07 pm CLINICAL HISTORY: Right-sided hydropneumothorax COMPARISON: Multiple portable studies from November 29 TECHNIQUE: AP portable chest image was obtained 1304 hours . FINDINGS: Portable chest examination at 1304 hours shows large hydropneumothorax not clearly differe nt from prior imaging. Subcutaneous emphysema also not clearly different from the 07/12 3 hour examin ation. No new or progressive left lung field finding. Trachea remains midline. No mediastinal shift. IMPRESSION: Large right-sided hydropneumothorax showing no improvement from prior imaging. Extensive right-sided subcutaneous emphysema also without clear change.
[2019-11-29] MEDS: TRAMADOL HCL 50 MG TAB PO PRN (17:38)
--- NOTE | 2019-11-29 18:17 | RAD REPORT ---
EXAM DESCRIPTION: RAD - Chest Single View - 11/29/2019 5:46 pm CLINICAL HISTORY: Hydropneumothorax COMPARISON: Multiple prior November 29 studies TECHNIQUE: AP portable chest image was obtained 1743 hour . FINDINGS: Is patient continues to demonstrate a very large right hydropneumothorax with lung parench ymal atelectasis. Pleural fluid component not substantially different. Trachea remains in the midline . Right lateral subcutaneous emphysema again noted and stable. IMPRESSION: Large right hydropneumothorax with complete or near complete atelectasis of the right si de lobes. Right-sided subcutaneous emphysema. Chest findings are not substantially different from comparison.
[2019-11-29] MEDS: ATORVASTATIN 20 MG TAB PO SCH (20:44)
[2019-11-29] MEDS: MORPHINE 2 MG/ML SYR IV PRN (20:54)
[2019-11-30] MEDS: FUROSEMIDE 40 MG/4 ML VIAL IV SCH ×3 (01:00→16:07)
[2019-11-30] MEDS: lisinopriL 20 MG TAB PO SCH (08:12)
[2019-11-30] MEDS: SPIRONOLACTONE 100 MG TAB PO SCH (08:13)
[2019-11-30] MEDS: AMLODIPINE 5 MG TAB PO SCH (08:13)
--- NOTE | 2019-11-30 08:26 | RAD REPORT ---
EXAM DESCRIPTION: RAD - Chest Single View - 11/30/2019 6:12 am CLINICAL HISTORY: chest tube Chest pain. COMPARISON: Chest Single View dated 11/29/2019; Chest Single View dated 11/29/2019; Chest Single View dated 11/29/2019; Chest Single View dated 11/29/2019; Thorax W/ Con dated 11/28/2019 FINDINGS: Portable technique limits examination quality. Large right-sided hydropneumothorax remains present. Pigtail chest tube is seen in the inferior right hemithorax. Mild right flank subcutaneous emphysema is seen. No midline shift. Cardiac size is rosalina l.
[2019-11-30] MEDS ORDERED: LIDOCAINE 1% MPF 5 ML VIAL ONE (08:32)
--- NOTE | 2019-11-30 08:40 | P.PN ---
Subjective Date of Service: 11/29/19 Primary Care Provider: Mera Mariee NP Chief Complaint: Pleural effusion/ascites Patient is complaining off right-sided chest discomfort intermittent chest tube drainage patient did not tolerate suction chest x-ray showed right-sided had a pneumothorax patient however is feeling better today Review of Systems General: Weakness Respiratory: Shortness of Breath Physical Examination - Vital Signs Temperature: 97.0 F Blood Pressure: 105/59 Pulse: 73 Respirations: 16 Pulse Ox (%): 98 - Physical Exam General: Alert, In no apparent distress, Oriented x3 Respiratory: Clear to auscultation bilaterally, Diminished (Diminished on the right side) Cardiovascular: No edema, Regular rate/rhythm - Studies Medications List Reviewed: Yes Assessment & Plan - Problems (Diagnosis) (1) Pleural effusion, right Current Visit: Yes Status: Acute Plan: Patient is status post chest tube he has drained over 4 L he still has a right- sided hydro pneumothorax no bubbling is observed despite maximum suction equipment has been verified will continue with suction follow up chest x-rays as is clinically doing better discuss with will plan to change the chest tube tomorrow poly need a bigger chest tube is no evidence of infection in the pleural fluid Physician Review Additional Text: I
--- NOTE | 2019-11-30 08:42 | P.PN ---
Subjective Date of Service: 11/30/19 Primary Care Provider: Mera Mariee NP Chief Complaint: Right-sided pneumothorax I have discussed multiple times over the phone with the now as patient was having some discomfort as per problems with the chest tube ultimately started draining last night I instructed the nurse to on clamp the tube over a started complaining of some discomfort suction was taken off this morning he is doing well he has a complete right-sided pneumothorax no evidence of a pleural effusion Review of Systems Respiratory: Shortness of Breath Cardiovascular: Chest Pain Physical Examination - Vital Signs Temperature: 97.0 F Blood Pressure: 105/59 Pulse: 73 Respirations: 16 Pulse Ox (%): 98 - Physical Exam General: Alert, In no apparent distress, Oriented x3 Respiratory: Clear to auscultation bilaterally, Diminished (Diminished on the right side) Cardiovascular: No edema, Regular rate/rhythm, Normal S1 S2 - Studies Medications List Reviewed: Yes Assessment & Plan - Problems (Diagnosis) (1) Pleural effusion, right Current Visit: Yes Status: Resolved Plan: Patient is status post chest tube he has drained over 4 L he still has a right- sided hydro pneumothorax no bubbling is observed despite maximum suction equipment has been verified will continue with suction follow up chest x-rays as is clinically doing better discuss with will plan to change the chest tube tomorrow poly need a bigger chest tube is no evidence of infection in the pleural fluid (2) Pneumothorax Current Visit: Yes Status: Acute Plan: Patient now is a complete pneumothorax on the right side patient will need a big a chest tube discussed with Dr. Elise no evidence of infection possible pleurodesis with ID in on the right side Qualifiers: Pneumothorax type: spontaneous, secondary Qualified Code(s): J93.12 - Secondary spontaneous pneumothorax Physician Review Additional Text: I
--- NOTE | 2019-11-30 10:12 | P.OP ---
Preoperative diagnosis: Persistent RIGHT pleural Effusion / hydropneumothorax Postoperative diagnosis: Persistent RIGHT pleural Effusion / hydropneumothorax Primary procedure: Placement of Right THAL Thoracostomy tube 16 Fr Secondary procedure: Removal of RIGHT pigtail pleural cather Anesthesia: Local 1% lidocaine Estimated blood loss: <2cc Specimen: none Findings: Non-bloody yellow fluid - clear straw colored Complications: None Drain(s): Other (THAL Chest tube) Transferred to: Other (Floor Bed) Condition: Good
--- NOTE | 2019-11-30 10:21 | P.PN ---
Subjective Date of Service: 11/30/19 Primary Care Provider: Mera Mariee NP Chief Complaint: Right-sided pneumothorax Subjective: Other (Patient continues to have low grade shortness of breath) Physical Examination - Vital Signs Temperature: 97.0 F Blood Pressure: 105/59 Pulse: 73 Respirations: 16 Pulse Ox (%): 98 - Physical Exam General: Alert, In no apparent distress, Cooperative Respiratory: Diminished (Right, right thoracic pigtail catheter in place, continues to drain clear fluid. + subQ emphysema) - Studies Medications List Reviewed: Yes Assessment And Plan - Current Problems (Diagnosis) (1) Pleural effusion, right Current Visit: Yes Status: Resolved Plan: - Patient has persistent RIGHT pleural effusion to spite removal with small bore tube - I have explained the risks, benefits, and alternatgives to placemement of larger bore chest tube to replace prior tube - Will remove pigtail catheter at this time. - STAT chest x ray after placement Physician Review Additional Text: I
--- NOTE | 2019-11-30 10:48 | RAD REPORT ---
EXAM DESCRIPTION: [facility] Single View11/30/2019 10:38 am CLINICAL HISTORY: Pleural effusion/chest tube COMPARISON: November 30, 2019 FINDINGS: A chest tube has its tip within the medial mid to upper left hemithorax. The left pneumot horax has decreased in size and is small to moderate. Right pleural effusion has decreased in size No other significant change IMPRESSION: Right chest tube in place. A small to moderate right pneumothorax has decreased in size. Right pleural effusion has decreased in size
[2019-11-30] MEDS: MORPHINE 2 MG/ML SYR IV PRN ×2 (11:57→21:11)
--- NOTE | 2019-11-30 14:41 | CON ---
Date of Consultation: 11/27/2019 Brief History Of Present Illness: Patient is a 59-year-old male, who presents to the hospital with p rogressive shortness of breath on 11/26/2019. He has a past medical history significant for hepatiti s C and ascites and he has a known large amount of pleural fluid by his report. He required thoracen tesis before in the past as well as paracentesis. He currently notes that his shortness of breath go t progressively worse over the several days leading up to his admission. I am consulted to place a c atheter and obtain fluid for analysis in the right thoracic cavity. Past Medical History: Significant for CVA, fall, hepatitis C, hypertension. Home Medications: Include Norvasc, Lipitor, Plavix, Prinivil, Lasix, Aldactone. Allergies: NO KNOWN DRUG ALLERGIES. Social History: He smokes approximately half a pack per day. He denies alcohol or recreational drug use. Review of Systems: Ten-point review of systems other than HPI, denies. Physical Examination: Vital Signs: At the time of my examination, his BMI is approximately 30. His temperature is 98.2, p ulse is 70, respiratory rate 22, blood pressure 132/82. His SpO2 is 98% on nasal cannula. General: He is awake, alert, and oriented. Psychiatric: Appropriate, conversive. HEENT: He is normocephalic. His sclerae are anicteric. His mucous membranes are moist. His oropha rynx is clear. Neck: Supple. No JVD. Chest: Symmetric chest excursion, but decreased breath sounds on the right. It is dull to percussio n on the right as well. Abdomen: Soft with some fluid consistent with a small amount of ascites. Otherwise, nontender, nond istended. Extremities: No clubbing, cyanosis, or edema. Skin: Warm and dry. Laboratory Data: Reveals a white blood count of 5.9, his hemoglobin is 13.0, hematocrit of 38.0, natalie telet count was 168. His coags showed a PT 11.8, INR 1.0, PTT 30.4. His chemistry showed a sodium 1 44, potassium 3.7, chloride 109, carbon dioxide 30, BUN 13, creatinine 0.6, glucose is 96. His total bilirubin is 0.4, AST 44, ALT 30, alk phos 93. He had a chest x-ray on 11/26, which was officially read as complete right hemithorax opacification from large pleural effusion. Left lung field is rodney r. Assessment And Plan: This is a 59-year-old male, who presents with a large right pleural effusion. I have explained the risks, benefits, and alternatives of placement of a pigtail thoracentesis cathet er and possible placement of a larger bore chest tube for evacuation of this fluid and analysis inclu ding but not limited to bleeding, infection, damage to surrounding tissues, pneumothorax, need for fu rther operation and procedures, patient agrees to proceed as indicated. Thank you for this interesting consult. DENISE/ELAINA Voice ID: [id number] Report ID: [id number]
--- NOTE | 2019-11-30 15:28 | P.PN ---
Subjective Date of Service: 11/30/19 Primary Care Provider: Mera Mariee NP Chief Complaint: Right-sided pleural effusion Subjective: No new changes, No C/O voiced (s/p), C/O voiced (s/p SOB better now after unclamping of chest tube overnight and 1500cc pleural fluid drained) Review of Systems 10-point ROS is otherwise unremarkable Physical Examination - Vital Signs Temperature: 97.8 F Blood Pressure: 124/71 Pulse: 74 Respirations: 22 Pulse Ox (%): 98 - Physical Exam General: Alert, In no apparent distress HEENT: Atraumatic, Normocephalic Neck: 2+ carotid pulse no bruit, No Thyromegaly Respiratory: Clear to auscultation bilaterally, Dull (right chest , chest tube insitu ) Gastrointestinal: Normal bowel sounds, Soft and benign, Ascites (mild ) Musculoskeletal: No clubbing, No swelling Neurological: Normal gait, Normal speech - Studies Laboratory Last Values WBC 6.7 K/uL (4.3-10.9) 11/29/19 05:29 RBC 4.68 M/uL (4.33-5.43) 11/29/19 05:29 Hgb 13.1 g/dL (13.6-17.9) L 11/29/19 05:29 Hct 39.1 % (39.6-49.0) L 11/29/19 05:29 MCV 83.4 fL (80-100) 11/29/19 05:29 MCH 27.9 pg (27.0-35.0) 11/29/19 05:29 MCHC 33.5 g/dL (32.0-36.0) 11/29/19 05:29 RDW 14.3 % (12.1-15.2) 11/29/19 05:29 Plt Count 150 K/uL (152-406) L 11/29/19 05:29 MPV 8.7 fL (7.6-11.3) 11/29/19 05:29 Neutrophils % 74.5 % (41.7-73.7) H 11/29/19 05:29 Lymphocytes % 16.2 % (15.3-44.8) 11/29/19 05:29 Monocytes % 5.9 % (3.3-12.3) 11/29/19 05:29 Eosinophils % 2.4 % (0-4.4) 11/29/19 05:29 Basophils % 1.0 % (0-1.3) 11/29/19 05:29 Absolute Neutrophils 5.0 K/uL (1.8-8.0) 11/29/19 05:29 Absolute Lymphocytes 1.1 K/uL (0.7-4.9) 11/29/19 05:29 Absolute Monocytes 0.4 K/uL (0.1-1.3) 11/29/19 05:29 Absolute Eosinophils 0.2 K/uL (0-0.5) 11/29/19 05:29 Absolute Basophils 0.1 K/uL (0-0.5) 11/29/19 05:29 PT 11.8 SECONDS (9.5-12.5) 11/26/19 19:00 INR 1.00 11/26/19 19:00 APTT 30.4 SECONDS (24.3-36.9) 11/26/19 19:00 Sodium 142 mmol/L (136-145) 11/29/19 05:29 Potassium 3.7 mmol/L (3.5-5.1) 11/29/19 05:29 Chloride 106 mmol/L (98-107) 11/29/19 05:29 Carbon Dioxide 32 mmol/L (21-32) 11/29/19 05:29 BUN 14 mg/dL (7-18) 11/29/19 05:29 Creatinine 0.63 mg/dL (0.55-1.3) 11/29/19 05:29 Estimated GFR > 90 mL/min (=/>90) 11/29/19 05:29 Glucose 96 mg/dL (74-106) 11/29/19 05:29 Calcium 7.8 mg/dL (8.5-10.1) L 11/29/19 05:29 Total Bilirubin 0.4 mg/dL (0.2-1.0) 11/29/19 05:29 AST 44 U/L (15-37) H 11/29/19 05:29 ALT 27 U/L (12-78) 11/29/19 05:29 Alkaline Phosphatase 77 U/L (45-117) 11/29/19 05:29 Serum Total Protein 5.3 g/dL (6.4-8.2) L 11/29/19 05:29 Albumin 2.0 g/dL (3.4-5.0) L 11/29/19 05:29 Globulin 3.3 g/dL (2.3-3.5) 11/29/19 05:29 Albumin/Globulin Ratio 0.6 (1.1-1.8) L 11/29/19 05:29 Urine Color Yellow 11/28/19 09:30 Urine Appearance Cloudy 11/28/19 09:30 Urine pH 5.5 (5.0-7.0) 11/28/19 09:30 Ur Specific [place] 1.020 (1.005-1.030) 11/28/19 09:30 Urine Ketones Negative (NEG) 11/28/19 09:30 Urine Blood 2+ (NEG) H 11/28/19 09:30 Urine Nitrite Negative (NEG) 11/28/19 09:30 Urine Bilirubin Negative (NEG) 11/28/19 09:30 Urine Urobilinogen 0.2 mg/dL (0.2-1.0) 11/28/19 09:30 Ur Leukocyte Esterase Negative (NEG) 11/28/19 09:30 Urine RBC 5-10 /HPF (NONE SEEN) H 11/28/19 09:30 Urine WBC <5 /HPF (<5) 11/28/19 09:30 Ur Squamous Epith Cells 5-10 /HPF (NONE SEEN) H 11/28/19 09:30 Urine Bacteria 20-50 /HPF (NONE SEEN) H 11/28/19 09:30 Urine Culture Reflexed Reflexed 11/28/19 09:30 Urine Glucose Negative (NEG) 11/28/19 09:30 Urine Total Protein 3+ (NEG) H 11/28/19 09:30 Fluid Source Pleural 11/27/19 10:50 Fluid Color Yellow (COLORLESS) H 11/27/19 10:50 Fluid Appearance Turbid (CLEAR) H 11/27/19 10:50 Fld Supernatant Color GYROSCOPIC INSTRUMENT TESTER 11/27/19 10:50 Fluid WBC 192 /mm^3 11/27/19 10:50 Fluid RBC 400 /mm^3 11/27/19 10:50 Fluid Neutrophils 1 % 11/27/19 10:50 Fluid Lymphocytes 41 % 11/27/19 10:50 Fluid Mononuclear Cell 58 % 11/27/19 10:50 Miscellaneous Test Sent 11/27/19 10:50 Medications List Reviewed: Yes Assessment & Plan - Problems (Diagnosis) (1) Ascites Current Visit: Yes Status: Acute (2) Pleural effusion, right Current Visit: Yes Status: Resolved (3) Anasarca Current Visit: No Status: Acute (4) Liver cirrhosis Current Visit: No Status: Acute Qualifiers: Hepatic cirrhosis type: unspecified hepatic cirrhosis Ascites presence: with ascites Qualified Code(s): K74.60 - Unspecified cirrhosis of liver; R18.8 - Other ascites (5) Non compliance w medication regimen Current Visit: No Status: Acute (6) HTN (hypertension) Current Visit: No Status: Chronic Qualifiers: Hypertension type: essential hypertension Qualified Code(s): I10 - Essential (primary) hypertension Physician Review: Patient Assessed, Agree with Above Assessment and Plan Physician Review Additional Text: patient with liver cirrhosis admitted for combined ascites and right pleural effusion , s/p paracenetsis and chest tube placed but developed hydropneumonthorax . Chest tube changed today to large bore tube plan -continue abx -follow chest tube mgt per pulmonary -c/w diuretics -replte k and mg others 2. Liver cirrhosis with hepatitis C history with a large amount of ascites. Patient on diuresis with Lasix as well as Aldactone. 3. Hypertension. Blood pressure well controlled. Patient already on lisinopril, Norvasc and metoprolol. 4. History of cerebrovascular accident without residual deficit. 5. Hyperlipidemia. Patient on Lipitor. 6. Symptomatic treatment for pain after chest tube placement.
[2019-11-30] MEDS ORDERED: POTASSIUM 25 MEQ EFFERV TAB PO ONE (15:29)
[2019-11-30] MEDS: TRAMADOL HCL 50 MG TAB PO PRN (16:00)
[2019-11-30] MEDS: ATORVASTATIN 20 MG TAB PO SCH (21:13)
[2019-12-01] MEDS: FUROSEMIDE 40 MG/4 ML VIAL IV SCH ×3 (00:05→17:00)
[2019-12-01] MEDS: MORPHINE 2 MG/ML SYR IV PRN ×3 (04:38→14:31)
[2019-12-01 05:55] LABS: Absolute Lymphocytes (CBC) 1.3 K/uL (0.7-4.9); Basophils % 1.1 % (0-1.3); Hematocrit 39.7 % (39.6-49.0); Lymphocytes % 19.2 % (15.3-44.8); RBC Red Blood Cell Count 4.79 M/uL (4.33-5.43)
[2019-12-01 06:11] LABS: ALT/SGPT 29 U/L (12-78); AST/SGOT 47 U/L (15-37); Albumin 1.9 g/dL (3.4-5.0); Alkaline Phosphatase 76 U/L (45-117); BUN Blood Urea Nitrogen 17 mg/dL (7-18); Bicarbonate 33 mmol/L (21-32); Bilirubin Total 0.4 mg/dL (0.2-1.0); Glucose Level 101 mg/dL (74-106); Potassium 4.1 mmol/L (3.5-5.1); Protein, Total 5.3 g/dL (6.4-8.2); Sodium Level 138 mmol/L (136-145)
[2019-12-01] MEDS: ARFORMOTEROL TARTRATE 15 MCG/2 ML VIAL.NEB NEB SCH ×2 (08:26→19:45)
--- NOTE | 2019-12-01 08:26 | P.PN ---
Subjective Date of Service: 12/01/19 Primary Care Provider: Mera Mariee NP Chief Complaint: Right-sided pneumothorax Patient has discomfort on the chest tube was placed on suction complaining of right-sided chest discomfort as some subcutaneous emphysema with a air leak Review of Systems General: Weakness Respiratory: Shortness of Breath Cardiovascular: Chest Pain Physical Examination - Vital Signs Temperature: 97.6 F Blood Pressure: 122/74 Pulse: 84 Respirations: 18 Pulse Ox (%): 99 - Physical Exam General: Alert, In no apparent distress, Oriented x3 Respiratory: Clear to auscultation bilaterally, Diminished (Diminished on the right), Other (Subcutaneous emphysema on the right side) Cardiovascular: No edema, Regular rate/rhythm - Studies Medications List Reviewed: Yes Assessment & Plan - Problems (Diagnosis) (1) Pneumothorax Current Visit: Yes Status: Acute Plan: Repeat chest x-ray patient of suction unable to tolerate still has some air leak patient has wheezing and bronchodilators add Brovana and hydrocodone Qualifiers: Pneumothorax type: spontaneous, secondary Qualified Code(s): J93.12 - Secondary spontaneous pneumothorax Physician Review: Patient Assessed, Agree with Above Assessment and Plan
[2019-12-01] MEDS: AMLODIPINE 5 MG TAB PO SCH (08:45)
[2019-12-01] MEDS: SPIRONOLACTONE 100 MG TAB PO SCH (08:46)
[2019-12-01] MEDS: lisinopriL 20 MG TAB PO SCH (08:46)
--- NOTE | 2019-12-01 09:52 | RAD REPORT ---
EXAM DES[facility]: [facility] 9:17 am CLINICAL HISTORY: Pneumothorax with chest tube COMPARISON: November 30, 2019 FINDINGS: A right chest tube remains in place. The right pneumothorax has decreased in size and is small. Right pleural effusion has decreased in size and is small No other change seen IMPRESSION: Right pneumothorax has decreased in size and is small
--- NOTE | 2019-12-01 15:35 | RAD REPORT ---
EXAM DESCRIPTION: RAD - Pelvis - 12/01/2019 3:27 pm CLINICAL HISTORY: fall Fall, pain COMPARISON: No comparisons FINDINGS: No fracture or dislocation.
[2019-12-01] MEDS ORDERED: NA CHLORIDE 0.9% 250 ML ONE (15:58)
--- NOTE | 2019-12-01 16:14 | P.PN ---
Subjective Date of Service: 12/01/19 Primary Care Provider: Mera Mariee NP Chief Complaint: Right-sided pneumothorax Subjective: Improving (patient feels better) Physical Examination - Vital Signs Temperature: 97.0 F Blood Pressure: 91/58 Pulse: 77 Respirations: 20 Pulse Ox (%): 96 - Physical Exam General: Alert, In no apparent distress, Oriented x3, Cooperative HEENT: Mucous membr. moist/pink Gastrointestinal: No ascites, No tenderness, No masses, No rebound, No guarding Neurological: Normal gait - Studies Medications List Reviewed: Yes Assessment And Plan - Current Problems (Diagnosis) (1) Pleural effusion, right Current Visit: Yes Status: Resolved Plan: - Patient has persistent RIGHT pleural effusion to spite removal with small bore tube - THAL chest tube placed, continue current treatment - Will remove pigtail catheter at this time. - STAT chest x ray after placement Physician Review: Patient Assessed, Agree with Above Assessment and Plan Physician Review Additional Text: patient with liver cirrhosis admitted for combined ascites and right pleural effusion , s/p paracenetsis and chest tube placed but developed hydropneumonthorax . Chest tube changed today to large bore tube plan -continue abx -follow chest tube mgt per pulmonary -c/w diuretics -replte k and mg others 2. Liver cirrhosis with hepatitis C history with a large amount of ascites. Patient on diuresis with Lasix as well as Aldactone. 3. Hypertension. Blood pressure well controlled. Patient already on lisinopril, Norvasc and metoprolol. 4. History of cerebrovascular accident without residual deficit. 5. Hyperlipidemia. Patient on Lipitor. 6. Symptomatic treatment for pain after chest tube placement.
[2019-12-01] MEDS: TRAMADOL HCL 50 MG TAB PO PRN (20:04)
[2019-12-01] MEDS: ATORVASTATIN 20 MG TAB PO SCH (20:04)
--- NOTE | 2019-12-01 20:44 | PN ---
Date of Progress Note: 12/01/2019 History: The patient seen and examined, chart reviewed, and case discussed with RN. Apparently, keyona wong did have a mild fall. He was trying to get up from the seat and get to the bed, due to all his tubes and everything else fell on his bottom. X-ray was done, which was negative, did not hit his he ad. No loss of consciousness. Medication List: Reviewed. Physical Examination: Vital Signs: Temperature 97.5, heart rate 73, blood pressure 80/50, respirations 18, O2 96% on 4 L v ia nasal cannula. General: Awake, alert, and oriented x3. Obese male. BMI 30. CV: S1, S2. Regular rate and rhythm. Respiratory: Moving air well bilaterally. Diminished breath sounds on the right. Gastrointestinal: Abdomen is soft, nondistended. Positive bowel sounds. Extremities: No clubbing, cyanosis, or edema. Neurologic: Nonfocal. Laboratory Data: Sodium 138, potassium 4.1, chloride 103, CO2 of 33, BUN 17, creatinine 0.66, glucos e 101, calcium 7.9, albumin 1.9. WBC 7, H and H 13.4 and 39.7, platelets 169. Fluid culture, no lev wth. Urine culture shows mixed too. Assessment: A 59-year-old male with, 1.Ascites. 2.Right pleural effusion status post chest tube. Chest x-ray shows diminished pneumothorax. Apprec iate Dr. Robb and Dr. Hurtado's input. 3.Anasarca. Patient has very low albumin. 4.Liver cirrhosis. 5.Noncompliance with medication regimen. 6.Essential hypertension, currently hypotensive. We will hold blood pressure medications. 7.History of cerebrovascular accident without residual deficit. 8.Mixed hyperlipidemia. Patient on Lipitor. Plan: We will continue diuresis. Chest tube management per Pulmonology. Monitor electrolytes. Cul tures negative to date. Likely discharge home once chest tube is out. Cytology specimen does not sh ow any malignant cells. SA/MODL Voice ID: [id number] Report ID: [id number]
[2019-12-02] MEDS: HYDROCODONE/APAP 5/325 MG TAB PO PRN ×3 (00:11→20:36)
[2019-12-02] MEDS: FUROSEMIDE 40 MG/4 ML VIAL IV SCH ×3 (00:29→15:48)
[2019-12-02 04:15] LABS: Absolute Lymphocytes (CBC) 1.3 K/uL (0.7-4.9); Basophils % 0.9 % (0-1.3); Hematocrit 37.6 % (39.6-49.0); Lymphocytes % 20.6 % (15.3-44.8); MPV 9.2 fL (7.6-11.3); RBC Red Blood Cell Count 4.56 M/uL (4.33-5.43)
[2019-12-02 04:29] LABS: Albumin 1.8 g/dL (3.4-5.0); Bilirubin Total 0.3 mg/dL (0.2-1.0); Potassium 4.4 mmol/L (3.5-5.1)
[2019-12-02] MEDS: SPIRONOLACTONE 100 MG TAB PO SCH (08:03)
[2019-12-02] MEDS: lisinopriL 20 MG TAB PO SCH (08:03)
[2019-12-02] MEDS: AMLODIPINE 5 MG TAB PO SCH (08:03)
--- NOTE | 2019-12-02 08:03 | RAD REPORT ---
EXAM DESCRIPTION: [facility] Single View12/02/2019 5:55 am CLINICAL HISTORY: Right chest tube with pneumothorax COMPARISON: December 01, 2019 FINDINGS: The right chest tube has its tip within the medial lower left hemithorax. A small pneumoth orax is present. Mild right basilar atelectasis with small pleural effusion Left lung appears clear
[2019-12-02] MEDS: ARFORMOTEROL TARTRATE 15 MCG/2 ML VIAL.NEB NEB SCH ×2 (08:30→20:15)
--- NOTE | 2019-12-02 09:19 | P.PN ---
Subjective Date of Service: 12/02/19 Primary Care Provider: Mera Mariee NP Chief Complaint: Right-sided pneumothorax Subjective: Improving (Patient has no SOB) Physical Examination - Vital Signs Temperature: 97.1 F Blood Pressure: 92/54 Pulse: 71 Respirations: 16 Pulse Ox (%): 99 - Physical Exam General: Alert, In no apparent distress, Cooperative Respiratory: Other (RIGHT chest tube in place, draining well, straw colored fluid) - Studies Medications List Reviewed: Yes Assessment And Plan - Current Problems (Diagnosis) (1) Pleural effusion, right Current Visit: Yes Status: Resolved Plan: - Patient has persistent RIGHT pleural effusion to spite removal with small bore tube - THAL chest tube placed, change to water seal - repeat chest x ray in AM - if no improvement, consider CT chest Physician Review: Patient Assessed, Agree with Above Assessment and Plan Physician Review Additional Text: patient with liver cirrhosis admitted for combined ascites and right pleural effusion , s/p paracenetsis and chest tube placed but developed hydropneumonthorax . Chest tube changed today to large bore tube plan -continue abx -follow chest tube mgt per pulmonary -c/w diuretics -replte k and mg others 2. Liver cirrhosis with hepatitis C history with a large amount of ascites. Patient on diuresis with Lasix as well as Aldactone. 3. Hypertension. Blood pressure well controlled. Patient already on lisinopril, Norvasc and metoprolol. 4. History of cerebrovascular accident without residual deficit. 5. Hyperlipidemia. Patient on Lipitor. 6. Symptomatic treatment for pain after chest tube placement.
--- NOTE | 2019-12-02 12:00 | P.PN ---
Subjective Date of Service: 12/02/19 Primary Care Provider: Mera Mariee NP Chief Complaint: Right-sided pneumothorax Patient is doing better has a right apical pneumothorax is the chest discomfort Review of Systems Unremarkable Physical Examination - Vital Signs Temperature: 97.1 F Blood Pressure: 92/54 Pulse: 71 Respirations: 16 Pulse Ox (%): 99 - Physical Exam General: Alert, In no apparent distress, Oriented x3 Respiratory: Clear to auscultation bilaterally, Diminished - Studies Medications List Reviewed: Yes Assessment & Plan - Problems (Diagnosis) (1) Pneumothorax Current Visit: Yes Status: Acute Plan: Patient has a right apical pneumothorax place the chest tube on suction will plan to do a iodine pleurodesis the help in preventing recurrent effusion and pneumothorax no malignant cells Qualifiers: Pneumothorax type: spontaneous, secondary Qualified Code(s): J93.12 - Secondary spontaneous pneumothorax Physician Review: Patient Assessed, Agree with Above Assessment and Plan Physician Review Additional Text: patient with liver cirrhosis admitted for combined ascites and right pleural effusion , s/p paracenetsis and chest tube placed but developed hydropneumonthorax . Chest tube changed today to large bore tube plan -continue abx -follow chest tube mgt per pulmonary -c/w diuretics -replte k and mg others 2. Liver cirrhosis with hepatitis C history with a large amount of ascites. Patient on diuresis with Lasix as well as Aldactone. 3. Hypertension. Blood pressure well controlled. Patient already on lisinopril, Norvasc and metoprolol. 4. History of cerebrovascular accident without residual deficit. 5. Hyperlipidemia. Patient on Lipitor. 6. Symptomatic treatment for pain after chest tube placement.
[2019-12-02] MEDS: MORPHINE 2 MG/ML SYR IV PRN (13:02)
[2019-12-02] MEDS ORDERED: Levofloxacin 750mg IV 750 MG/150 ML BAG IV SCH (15:00)
[2019-12-02] MEDS: TRAMADOL HCL 50 MG TAB PO PRN ×2 (15:13→22:54)
--- NOTE | 2019-12-02 19:16 | PN ---
Date of Progress Note: 12/02/2019 Subjective: Patient seen and examined, chart reviewed, and case discussed with RN and Dr. Hurtado. Patient is doing well, did have a fall yesterday. No acute injury sustained. Medications: List reviewed. Physical Examination: Vital Signs: Temperature 97.1, heart rate 71, blood pressure 92/54, respirations 16, O2 99% on 3 L v ia nasal cannula. General: Awake, alert, oriented x3. Some mild distress. Ill-appearing male, obese, BMI 30. CV: S1, S2. Regular rate and rhythm. Respiratory: Diminished breath sounds. Chest tube in place. Gastrointestinal: Abdomen is soft, nontender, nondistended. Positive bowel sounds. Extremities: No clubbing, cyanosis, edema. Neurologic: Nonfocal. Laboratory Data: Sodium 138, potassium 4.4, chloride 103, CO2 of 32, BUN 27, creatinine 0.94, glucos e 95, calcium 7.8, AST 47, ALT 30, albumin 1.8. WBC 6.3, H and H 12.7 and 37.6, platelets 180, neutr ophils 66%. Cultures still pending. Pleural fluid culture, no growth to date. Acid-fast bacilli cu lture and fungal culture are pending. Urine culture, mixed too. Assessment: A 59-year-old male with: 1.Right-sided pleural effusion, status post chest tube placement. Chest x-ray shows improvement in pneumothorax. Patient will be going for iodine pleurodesis by Dr. Hurtado. Appreciate Dr. Robb' s input. 2.Ascites. 3.Anasarca. Albumin is 1.9. 4.Liver cirrhosis. We will continue with diuretics. 5.Noncompliance with medication regimen, intentional. 6.Essential hypertension, currently hypotensive. Blood pressure medications on hold. 7.History of cerebrovascular accident without residual deficit. 8.Mixed hyperlipidemia. Lipitor. Plan: We will continue serial chest x-rays. Chest x-ray shows small pneumothorax and mid right basi lar atelectasis with small pleural effusion. Left lung is clear. We will need to continue chest tub e for now. Follow up on cultures. SA/MODL Voice ID: [id number] Report ID: [id number]
[2019-12-02] MEDS: ATORVASTATIN 20 MG TAB PO SCH (20:36)
[2019-12-03] MEDS: FUROSEMIDE 40 MG/4 ML VIAL IV SCH ×2 (00:26→09:00)
[2019-12-03] MEDS: MORPHINE 2 MG/ML SYR IV PRN ×6 (01:08→22:21)
[2019-12-03 06:03] LABS: Basophils % 0.7 % (0-1.3); Hematocrit 39.5 % (39.6-49.0); Lymphocytes % 17.1 % (15.3-44.8); MPV 8.7 fL (7.6-11.3); RBC Red Blood Cell Count 4.81 M/uL (4.33-5.43)
--- NOTE | 2019-12-03 06:44 | RAD REPORT ---
EXAM DESCRIPTION: RAD - Chest Single View - 12/03/2019 6:18 am CLINICAL HISTORY: Status post knee chest tube COMPARISON: Chest Single View dated 12/02/2019; Chest Single View dated 12/01/2019None. TECHNIQUE: AP portable chest image was obtained 12/03/2019 6:18 am . FINDINGS: Underinflated. Chest tube remains at the right base. Minimal right apical pneumothorax pre sent similar to comparison. Continued clearing of atelectasis from the right base. No enlarging pleur al effusion. Heart and vasculature are normal. No acute bony abnormality seen. No acute aortic findin gs suspected. IMPRESSION: No change in chest tube position. Minimal right apex pneumothorax similar to prior day imaging.
[2019-12-03] MEDS ORDERED: LIDOCAINE 2% TOP ONE ×2 (08:00)
[2019-12-03] MEDS ORDERED: NA CHLORIDE 0.9% TOP ONE ×2 (08:00)
[2019-12-03] MEDS ORDERED: POVIDONE-IODINE 20 ML, NA CHLORIDE 0.9% 80 ML TOP ONE ×2 (08:00)
[2019-12-03] MEDS: lisinopriL 20 MG TAB PO SCH (08:37)
[2019-12-03] MEDS: AMLODIPINE 5 MG TAB PO SCH (08:37)
[2019-12-03] MEDS: SPIRONOLACTONE 100 MG TAB PO SCH (08:38)
[2019-12-03] MEDS: ARFORMOTEROL TARTRATE 15 MCG/2 ML VIAL.NEB NEB SCH ×2 (08:55→21:10)
--- NOTE | 2019-12-03 11:59 | P.PN ---
Subjective Date of Service: 12/03/19 Primary Care Provider: Mera Mariee NP Chief Complaint: Right-sided pneumothorax Doing much better no air leak status post iodine pleurodesis minimal chest discomfort Review of Systems General: Weakness Respiratory: Shortness of Breath Cardiovascular: Chest Pain Physical Examination - Vital Signs Temperature: 97.2 F Blood Pressure: 124/73 Pulse: 79 Respirations: 16 Pulse Ox (%): 95 - Physical Exam General: Alert, Oriented x3, Cachectic Neck: Supple Respiratory: Clear to auscultation bilaterally, Diminished - Studies Medications List Reviewed: Yes Assessment & Plan - Problems (Diagnosis) (1) Pneumothorax Current Visit: Yes Status: Acute Plan: Patient is doing much better no air leak minimal pneumothorax at the right apex adding pleurodesis performed with clamped the chest tube for 4 hr after the ID in pleurodesis then placed on suction remove the suction at midnight possible removal of chest tube in the morning discharge Dc antibiotics no evidence of pleural fluid sepsis Dc IV Lasix Qualifiers: Pneumothorax type: spontaneous, secondary Qualified Code(s): J93.12 - Secondary spontaneous pneumothorax Physician Review: Patient Assessed, Agree with Above Assessment and Plan
--- NOTE | 2019-12-03 12:06 | P.OP ---
Date of Service: 12/03/19 (Iodine pleurodesis) Findings and Operative Technique Patient is 59 years of age admitted with a massive pleural effusion developed a pneumothorax iodine pleurodesis was performed through the chest tube using pharmacy protocol patient tolerated the procedure very well the chest tube will be clamped for 4 hr on clamped and clamped again at 10:00 p.m. tonight possible removal of chest tube tomorrow prior to doing the pleurodesis patient's condition had improved animal apical pneumothorax no air leak
--- NOTE | 2019-12-03 15:41 | PN ---
Date of Progress Note: 12/03/2019 Subjective: Patient is seen and examined. Chart reviewed and case discussed with RN and Dr. Ekaterina montelongo. Patient had pleurodesis done today with ID. Tolerated procedure well. No acute events overnight . Medications: List reviewed. Physical Examination: Vital Signs: Temperature 97.2, heart rate 79, blood pressure 124/73, respirations 18, O2 95% on room air. GENERAL: Awake, alert, oriented x3, not in any acute distress, obese male. CV: S1, S2. Regular rate and rhythm. Peripheral pulses present. Respiratory: Diminished breath sounds on the right, otherwise moving air well Gastrointestinal: Abdomen is soft, nontender, nondistended. Positive bowel sounds. Extremities: No clubbing, cyanosis, or edema. Neurologic: Nonfocal. Laboratory Data: WBC 5.9, H and H 13.7 and 39.5, platelets 176, neutrophils 70%. Fungal cultures fr om pleural fluid are still pending. Body fluid from the pleural fluid cultures are negative. Chest x-ray personally reviewed, shows no change in chest tube position, minimal right apex pneumotho rax similar to prior imaging. Assessment And Plan: 59-year-old male with. 1.Right-sided pleural effusions, status post chest tube placement, now with pleurodesis. Appreciate Dr. Hurtado and Dr. Robb's input. Plan is for tentative removal of the chest tube in a.m., curr ently being clamped intermittently. 2.Ascites. 3.Anasarca. Low albumin. 4.Liver cirrhosis. Continue with diuretics. 5.Noncompliance with medication regimen intentional, counseled. 6.Essential hypertension. Patient's blood pressure is currently in the hypotensive range. 7.History of cerebrovascular accident without residual deficits. 8.Mixed hyperlipidemia. Continue Lipitor. 9.Obesity, BMI 30. Plan: Likely discharge in a.m. if chest tube able to be removed and the patient remained stable. SA/MODL Voice ID: [id number] Report ID: [id number]
[2019-12-03] MEDS: TRAMADOL HCL 50 MG TAB PO PRN (19:45)
[2019-12-03] MEDS: ATORVASTATIN 20 MG TAB PO SCH (21:00)
[2019-12-04] MEDS: HYDROCODONE/APAP 5/325 MG TAB PO PRN ×2 (01:39→14:00)
[2019-12-04] MEDS: MORPHINE 2 MG/ML SYR IV PRN ×3 (04:16→12:01)
[2019-12-04] MEDS: SPIRONOLACTONE 100 MG TAB PO SCH (08:08)
[2019-12-04] MEDS: lisinopriL 20 MG TAB PO SCH (08:09)
[2019-12-04] MEDS: AMLODIPINE 5 MG TAB PO SCH (08:09)
--- NOTE | 2019-12-04 09:15 | RAD REPORT ---
EXAM DESCRIPTION: RAD - Chest Single View - 12/04/2019 5:55 am CLINICAL HISTORY: Status post knee chest tube Chest pain. COMPARISON: Chest Single View dated 12/03/2019; Chest Single View dated 12/02/2019; Chest Single View dated 12/01/2019; Chest Single View dated 11/30/2019 FINDINGS: Portable technique limits examination quality. Rounded opacity in the right lung base appears progressive since the comparative examination. The lef t lung appears grossly clear. The patient's known right-sided pneumothorax is difficult to visualize on today's study. The heart is moderately enlarged with a tortuous thoracic aorta. No displaced fract ures. IMPRESSION: Moderate worsening right lung base aeration since comparative study.
[2019-12-04] MEDS: ARFORMOTEROL TARTRATE 15 MCG/2 ML VIAL.NEB NEB SCH (09:50)
--- NOTE | 2019-12-04 10:34 | P.PN ---
Subjective Date of Service: 12/04/19 Primary Care Provider: Mera Mariee NP Chief Complaint: Right-sided pneumothorax Subjective: Improving (Patient has no Shortness of breath. feels well generally ) Physical Examination - Vital Signs Temperature: 97.7 F Blood Pressure: 107/64 Pulse: 76 Respirations: 16 Pulse Ox (%): 95 - Physical Exam General: Alert, In no apparent distress, Cooperative Respiratory: Other (RIGHT chest tube clamped, opened and tested, no air leak) - Studies Medications List Reviewed: Yes Assessment And Plan - Current Problems (Diagnosis) (1) Pleural effusion, right Current Visit: Yes Status: Resolved Plan: - THAL chest tube placed, change to water seal, then clamped - Chest tube removed at bedside - repeat chest x ray in 4 hours, if clear may DC from surgical standpoint Physician Review: Patient Assessed, Agree with Above Assessment and Plan Physician Review Additional Text: patient with liver cirrhosis admitted for combined ascites and right pleural effusion , s/p paracenetsis and chest tube placed but developed hydropneumonthorax . Chest tube changed today to large bore tube plan -continue abx -follow chest tube mgt per pulmonary -c/w diuretics -replte k and mg others 2. Liver cirrhosis with hepatitis C history with a large amount of ascites. Patient on diuresis with Lasix as well as Aldactone. 3. Hypertension. Blood pressure well controlled. Patient already on lisinopril, Norvasc and metoprolol. 4. History of cerebrovascular accident without residual deficit. 5. Hyperlipidemia. Patient on Lipitor. 6. Symptomatic treatment for pain after chest tube placement.
--- NOTE | 2019-12-04 15:21 | RAD REPORT ---
EXAM DESCRIPTION: RAD - Chest Single View - 12/04/2019 3:07 pm CLINICAL HISTORY: removed chest tube COMPARISON: Chest Single View dated 12/04/2019; Chest Single View dated 12/03/2019 TECHNIQUE: AP portable chest image was obtained 12/04/2019 3:07 pm . FINDINGS: Right-sided chest and has been removed. Minimal subcutaneous emphysema noted on the right similar to comparison. Pneumothorax is not clearly evident on this examination. Anterior pneumothorax can be occult. Rounded opacification remains in the right base. This could be a focal lung parenchym al process or possibly fluid trapped within the fissure. Patient has remnant right pleural fluid. No progressive lung parenchymal process. No acute bony abnormality seen. No acute aortic findings suspec [place]. IMPRESSION: Post chest tube removal film shows no measurable pneumothorax on the right. Right base pleural fluid and rounded opacification right base similar to imaging performed earlier in the day.
[2019-12-04 16:10] VITALS: BP 118/68; TEMP 96.8
[2019-12-04 16:22] VITALS: O2SAT 97
--- NOTE | 2019-12-05 01:24 | DS ---
Date of Discharge: 12/04/2019 Consultants: 1.Dr. Robb, General Surgery. 2.Dr. Hurtado with Pulmonology. Procedures: On 11/27/2019, chest tube placement by Dr. Robb. 12/03/2019, pleurodesis by Dr. Prasanna roy. Cytology specimen does not show any malignant cells. Admitting Diagnoses: 1.Non-pleural effusion. 2.Ascites. 3.Anasarca. 4.History of cerebrovascular accident with residual deficit. 5.Liver cirrhosis. 6.Hypertension. 7.Hepatitis C. Discharge Diagnoses: 1.Right-sided pleural effusion status post chest tube placement and pneumothorax. 2.Ascites. 3.Anasarca. 4.Liver cirrhosis. 5.Noncompliance with medication regimen, intentional, counseled. 6.Essential hypertension. 7.History of cerebrovascular accident without residual deficits. 8.Mixed hyperlipidemia. 9.Obesity. Hospital Course: Patient is a 59-year-old male with past medical history of chronic hepatitis C, keke er failure on diuretics, comes in with pleural effusion and ascites. Patient was unable to get thora centesis. He was seen by Dr. Hurtado and Dr. Robb for the pleural effusion. He had a chest tube placed. Patient had improvement. Chest tube was subsequently removed. There was residual pneumoth orax, which then resolved. Patient did receive pleurodesis with iodine by Dr. Hurtado. Patient did well overall. He remained stable. His cultures showed no growth to date. His fungal cultures are still pending. His chest x-ray does show rounded opacity on the right lower lobe from pleurodesis, w hich will persist for months. He is to followup with his primary care physician in 2-3 days. Follow up with Dr. Hurtado in 2 weeks. Return to ER for worsening condition. Diet: Heart healthy, low sodium, fluid-restricted diet. Activity: As tolerated. Medications: As per medication reconciliation list. No further need for antibiotics. Physical Examination: General: Awake, alert, and oriented x3, obese male. CV: S1, S2. No murmurs. Respiratory: Moving air well bilaterally. Some diminished breath sounds on the right. Gastrointestinal: Abdomen is soft, nontender, nondistended. Positive bowel sounds. Extremities: No clubbing, cyanosis, or edema. Neurologic: Nonfocal. Total time spent discharging patient was 34 minutes. SA/MODL Voice ID: [id number] Report ID: [id number]
== END 2019-12-04 18:11 | disposition home or self-care (01) | DRG 187 ==
LOC: ER 17:50 → ERHOLD 20:15 → 4TH 21:46
PROVIDERS: ADMIT Hospitalist; ATTEND Family Medicine
PROC: 5A09457 Assistance with Respiratory Ventilation, 24-96 Consecutive Hours, Continuous Positive Airway Pressure (ICD-10-PCS; principal; 2019-11-26)
PROC: 0W9930Z Drainage of Right Pleural Cavity with Drainage Device, Percutaneous Approach (ICD-10-PCS; 2019-11-27)
PROC: 0W9930Z Drainage of Right Pleural Cavity with Drainage Device, Percutaneous Approach (ICD-10-PCS; 2019-11-30)
PROC: 3E0L3GC Introduction of Other Therapeutic Substance into Pleural Cavity, Percutaneous Approach (ICD-10-PCS; 2019-12-03)
DX: J90 Pleural effusion, not elsewhere classified (principal); R18.8 Other ascites; J93.12 Secondary spontaneous pneumothorax; K74.60 Unspecified cirrhosis of liver; B18.2 Chronic viral hepatitis C; I10 Essential (primary) hypertension; E78.5 Hyperlipidemia, unspecified; R06.03 Acute respiratory distress; E66.09 Other obesity due to excess calories; Z91.14 Patient's other noncompliance with medication regimen; Z86.73 Personal history of transient ischemic attack (TIA), and cerebral infarction without residual deficits; Z68.30 Body mass index [BMI] 30.0-30.9, adult
CPT/HCPCS: 36415; 71045; 71260; 72170; 76604; 80048; 80053; 81003; 81015; 85025; 85610; 85730; 87015; 87070; 87086; 87088; 87102; 87116; 87206; 88108; 88305; 89050; 93005; 94660; 94760; 96374; 99285; J1940; J2270; J7030; J7605; P9047; Q9967

== ENCOUNTER 2020-09-05 08:47 | Day surgery (SDC) | payer OTHER ==
--- OUTSIDE RECORDS SUMMARY | 2020-09-05 09:27 | XMS REPORT | Clinical Summary ---
:[address] [facility] Address [address] [place] [address] Care Team Providers Name Role Phone Unavailable Primary Care Provider Unavailable Allergies No Known Allergies Medications No known medications Active Problems Problem Noted Date Confusion 05/23/2018 Cerebral microvascular disease Social History Tobacco Use Types Packs/Day Years Used Date Current Every Day Smoker 1 Alcohol Use Drinks/Week oz/Week Comments Yes quit Sex Assigned at Date Recorded Not on file Job Start Date Occupation Industry Not on file Not on file Not on file Travel History Travel Start Travel End No recent travel history available. Last Filed Vital Signs Not on file Plan of Treatment Health Maintenance Due Date Last Done Comments Colorectal Cancer Scrn Annual (FIT/FOBT) Age 50 to 75 2008 IMM Influenza Seasonal Aug to January (>/= 19 yrs) 08/11/2020 Results Not on fileafter 09/05/2019 Insurance Payer Benefit Plan / Subscriber ID Effective Dates Phone Addre ss Type Group [employer] xxxxxxxxx 2018-Prese [phone] [id number] S[employer]F-PAY [address] [place] [address]
--- OUTSIDE RECORDS SUMMARY | 2020-09-05 09:28 | XMS REPORT | Continuity of Care Document ---
:1960 Author Organization [employer] Care Team Providers Name Role Phone [employer] Unavailable Un available Problems Problem Status Onset Classification Date Comments Sourc e Date Reported Cerebral 01/25/2019 [facility] infarction due to 8 Hi dical unspecified Center occlusion or stenosis of bilateral carotid arteries ISCHEMIC CVA Active [facility] s Medical Center ACUTE BILAT Active [facility] WATERSHED 8 Medical INFARCTION Center Cerebral 01/25/2019 [facility] infarction due to Me dical unspecified Center occlusion or stenosis of bilateral middle arteries Hemiplegia, 01/25/2019 Ivis agrawal unspecified Medical affecting left Cente r nondominant side Hypertensive 01/25/2019 [facility] emergency Medical Center Essential 01/25/2019 [facility] (primary) Medical hypertension Center Unspecified viral 01/25/2019 [facility] hepatitis C Medical without hepatic Cent er coma Unspecified 01/25/2019 Ivis agrawal cirrhosis of Medical liver Center NIHSS score 5 01/25/2019 [facility] Hyperlipidemia, [facility] Facial weakness 01/25/2019 [facility] Nicotine 01/25/2019 [facility] dependence, Medical cigarettes, Center uncomplicated Personal history 01/25/2019 [facility] of transient Medical ischemic attack Cent er (TIA), and cerebral infarction without residual deficits Patient's other 01/25/2019 [facility] noncompliance Medica l with medication Cent er regimen OTHER CEREBRAL Active [facility] INFARCTION Medical Center Medications Medication Details Route Status Patient Ordering Order Source Instructions Provider Date amLODIPine 5 mg 5 mg = 1 tab, Active [facility] oral tablet PO, Daily, # 018 Medical 30 tab, 2 Center Refill(s) lisinopril 20 mg 20 mg = 1 Active [facility] x[place] oral tablet tab, PO, 018 Medical Daily, # 30 Center tab, 2 Refill(s) clopidogrel 75 75 mg = 1 [place] oral tablet tab, PO, 018 Medical Daily, # 30 Center tab, 2 Refill(s) atorvastatin 20 20 mg = 1 Active [place] mg oral tablet tab, PO, 018 Medical Bedtime, # 30 Center tab, 2 Refill(s) Aspirin 325 MG 325 mg = 1 Active [place] Enteric Coated tab, PO, 018 Medical Tablet Daily, # 30 Center tab, 2 Refill(s) Lisinopril Notes: (Same [place] as: Prinivil, [address] [place] [address] Zestril) [place] Docusate Sodium Notes: (Same No Longer [facility] 50 MG / as Senokot-S) Active [address] [place] [address] sennosides, [facility] Equiv. to Cente r 8.6 MG Oral Anai-Colace. Tablet Tramadol Notes: Not to No Longer [facility] s exceed Active [facility][note 2] Medical 400mg/day. Center (Same As: [facility]) Midazolam 2 mg, Route: Inactive [facility] IVP, ONCE, 018 Medical Dosing Weight Center 88.636, kg, Start date: 07/07/18 13:04:00 CDT, Stop date: 07/07/18 13:04:00 CDT Fentanyl 100 Inactive [facility] microgram, 018 Medical Route: IV, Center ONCE, Dosing Weight 88.636, kg, Start date: 07/07/18 13:04:00 CDT, Stop date: 07/07/18 13:04:00 CDT Omnipaque 300 150 mL, Inactive [facility] Route: 018 Medical INTRAARTERIAL Center , Dosing Weight 88.636, kg, ONCE, Start date: 07/07/18 13:04:00 CDT, Stop date: 07/07/18 13:04:00 CDT captopril Notes: Give No Longer [facility] on empty Active [address] [place] [address] stomach. 1 Center hour before meal. (Same As: Capoten) remove patch Notes: Remove No Longer [facility] patch 12 Active 018 Medical hours after Center application each day. remove patch Notes: Remove No Longer [facility] old patch Active 018 Medical before Center application of new patch. WASTE: F/P - P Waste Black; E - P Waste Black Aspirin 325 MG Notes: Take No Longer [facility] Enteric Coated with food. Active 018 Medica l Tablet Center Lidocaine 0.05 Notes: Apply No Longer [place] MG/MG only once for Active 018 Medical Transdermal up to 12 Center Patch hours in a 24-hour period (12 hours on and 12 hours off). (Same as: Lidoderm) "Remove old patch before application of new patch" Amlodipine 5 mg, 1 tab, No Longer [place] Route: PO, Active 018 Medical Drug form: Center TAB, Daily, Dosing Weight 88.636, kg, Start date: 07/06/18 8:03:00 CDT, Duration: 30 day, Stop date: 08/04/18 9:00:00 CDT Tylenol Notes: Do not No Longer [facility] exceed 4 Active 018 Medical gm/day. Center (Same as: Tylenol) Spironolactone 25 mg = 2 [place] tab, PO, Active 018 Medical Daily, # 60 Center tab, 0 Refill(s) Furosemide Daily, 0 No Longer [facility] Refill(s) Active 018 [facility] amLODIPine 10 mg 20 mg = 2 No Longer [facility] oral tablet tab, PO, QAM, Active 018 Medica l 0 Refill(s) Center Nicotine Notes: (Same No Longer [facility] as: Habitrol) Active 018 Medical "Remove old Center patch before application of new patch" WASTE: F/P - P Waste Black; E - P Waste Black Plavix Notes: (Same No Longer [facility] As: Plavix) Active [address] [place] [address] Aspirin 81 MG Notes: Do not No Longer [facility] Enteric Coated crush or Active 018 Medical Tablet chew. (Same Center As: Ecotrin) Saline Flush Notes: (Same [place] Longer [place] 0.9% as: BD Active 018 Medical Posiflush) Center atorvastatin Notes: (Same No Longer [place] As: Lipitor) Active 018 [facility] sennosides, [facility] Notes: (Same No Longer [facility] as: Senokot) Active 018 Medical Center Plavix Notes: ( Same Inactive [facility] as: Plavix) 018 Medical Center Aspirin 325 MG Notes: Take Inactive [place] Oral Tablet with food. 018 Medical Center heparin Notes: No Longer [facility] porcine Active 018 Medical heparin Center iodixanol 100 mL, Inactive [facility] Route: IVP, 018 Medical Drug Form: [place] SOLN, Dosing Weight 88.636, kg, ONCALL, STAT, Start date: 07/04/18 15:05:00 CDT, Duration: 1 doses or times, Dose = 2.2ml/kg, Max dose = 100ml -- "To be infused by Radiology Staff ONLY" Saline Flush Notes: (Same [place] Longer [place] 0.9% as: BD Active 018 Medical Posiflush) Center Hydralazine Notes: ([place] as: Active 018 Medical Apresoline) Center Push over 5 minutes Labetalol 10 mg, 2 mL, No Longer Ivis agrawal Route: IVP, Active 018 Medical Drug form: [place] INJ, Q15Min, Dosing Weight 88.636, kg, PRN Hypertension, Start date: 07/04/18 15:01:00 CDT, Duration: 30 day, Stop date: 08/03/18 15:00:00 CDT Ondansetron Notes: (Same [place] as: Zofran) Active 018 Medical Center MEDICATION WASTE Product Size: 4 mg Product Wasted: ___ mg Sodium Chloride 1,000 mL, No Longer [place] 0.9% IV 1,000 mL Rate: 100 Active 018 Medic al ml/hr, Infuse Center over: 10 hr, Route: IV, Dosing Weight 88.636 kg, Total Volume: 1,000, Start date: 07/04/18 15:01:00 CDT, Duration: 30 day, Stop date: 08/03/18 15:00:00 CDT, 2.11, m2 Saline Flush Notes: (Same [place] Longer [place] 0.9% as: BD Active 018 Medical Posiflush) Center Allergies, Adverse Reactions, Alerts Substance Category Reaction Severity Reaction Status Date Comments S ource type Reported No Known Assertion Drug Misch er Medication allergy Neuro Allergies Immunizations No Data Provided for This Section Results Order Name Results Value Reference Date Interpretation Comments Alexia rce Range CHEM PANEL Magnesium Lvl 2.3 1.8 - 2.4 07/08 [facility] CHEM PANEL Phosphorus 3.8 2.5 - 4.5 07/08 [facility] CHEM PANEL eGFR 106 07/08 Result [...] Potassium Lvl 3.7 3.5 - 5.1 07/08 [facility] CHEM PANEL Sodium Lvl 140 135 - 145 07/08 [facility] CHEM PANEL Creatinine 0.65 0.50 - 07/08 [facility] Lvl 1.40 [facility] CHEM PANEL Chloride Lvl 108 95 - 109 07/08 a [facility] CHEM PANEL Calcium Lvl 8.1 8.5 - 10.5 07/08 [facility] CHEM PANEL CO2 24 24 - 32 07/08 [facility]2017 [facility] CHEM PANEL BUN 12 7 - 22 07/08 [facility]2017 [facility] CHEM PANEL Glucose Lvl 116 70 - 99 07/08 2017 [facility] CHEM PANEL AGAP 11.7 10.0 - 07/08 [place] 20.0 [facility] HEMATOLOGY Basophils # 0.1 0.0 - 0.2 07/08 [facility] HEMATOLOGY Eosinophils # 0.2 0.0 - 0.5 07/08 [facility] HEMATOLOGY Monocytes # 0.5 0.0 - 0.8 07/08 [facility] HEMATOLOGY Lymphocytes # 1.4 1.0 - 5.5 07/08 [facility] HEMATOLOGY Neutrophils # 4.3 1.5 - 8.1 07/08 [facility] HEMATOLOGY Monocytes 7.7 2.0 - 12.0 07/08 [facility] HEMATOLOGY Lymphocytes 21.2 20.0 - 07/08 [place] 40.0 [facility] HEMATOLOGY Eosinophils 2.4 0.0 - 4.0 07/08 [facility] HEMATOLOGY Basophils 1.3 0.0 - 1.0 07/08 [facility] HEMATOLOGY Segs 67.4 45.0 - 07/08 [place] 75.0 [facility] HEMATOLOGY Hct 41.7 42.0 - 07/08 [place] 54.0 [facility] HEMATOLOGY MCV 91.7 80.0 - 07/08 [place] 94.0 [facility] HEMATOLOGY WBC 6.4 3.7 - 10.4 07/08 [facility] HEMATOLOGY MCHC 35.6 32.0 - 07/08 [place] 36.0 [facility] HEMATOLOGY RBC 4.54 4.70 - 07/08 [place] 6.10 [facility] HEMATOLOGY Hgb 14.8 14.0 - 07/08 [place] 18.0 [facility] HEMATOLOGY MPV 8.1 7.4 - 10.4 07/08 [facility] HEMATOLOGY Platelet 134 133 - 450 07/08 [facility] HEMATOLOGY RDW 13.9 11.5 - 07/08 [place] 14.5 [facility] HEMATOLOGY MCH 32.6 27.0 - 07/08 [place] 31.0 [facility] PARATHYROID Ca Ion WB 1.08 1.05 - 07/08 [place] PROFILE . [facility] PARATHYROID Ca Norm WB 1.10 1.05 - 07/08 [place] PROFILE 12.05 [facility] BLOOD BANK ABO/Rh A POS 07/07 [place] RESULTS [facility] BLOOD BANK Antibody Scrn Negative 07/07 [place] RESULTS (07/07/18 12:01 AM) [facility] CHEM PANEL Phosphorus 2.6 2.5 - 4.5 07/07 [facility] CHEM PANEL Magnesium Lvl 2.2 1.8 - 2.4 07/07 [facility] ELECTROLYTE AGAP 14.0 10.0 - 07/07 [facility] S 20.0 [facility] ELECTROLYTE eGFR 97 07/07 Result [facility] Comment: The Medical eGFR is Center calculated [...] Potassium Lvl 4.0 3.5 - 5.1 07/07 [place] [facility] ELECTROLYTE Chloride Lvl 110 95 - 109 07/07 [place] [facility] ELECTROLYTE BUN 17 7 - 22 07/07 [facility] ELECTROLYTE Sodium Lvl 142 135 - 145 07/07 [place] [facility] ELECTROLYTE Glucose Lvl 97 70 - 99 07/07 [facility] ELECTROLYTE Creatinine 0.82 0.50 - 07/07 [facility] S Lvl 1.40 [facility] ELECTROLYTE CO2 22 24 - 32 07/07 [facility] 2017 [facility] ELECTROLYTE Calcium Lvl 8.0 8.5 - 10.5 07/07 [facility] xa [facility] HEMATOLOGY Lymphocytes 23.2 20.0 - 07/07 [place] 40.0 [facility] HEMATOLOGY Segs 64.9 45.0 - 07/07 [facility] 75.0 [facility] HEMATOLOGY Eosinophils # 0.2 0.0 - 0.5 07/07 [facility] HEMATOLOGY Basophils # 0.1 0.0 - 0.2 07/07 [facility] HEMATOLOGY Basophils 1.3 0.0 - 1.0 07/07 [facility] HEMATOLOGY Neutrophils # 4.0 1.5 - 8.1 07/07 [facility] HEMATOLOGY Monocytes 8.0 2.0 - 12.0 07/07 [facility] HEMATOLOGY Eosinophils 2.6 0.0 - 4.0 07/07 [facility] HEMATOLOGY Lymphocytes # 1.4 1.0 - 5.5 07/07 [facility] HEMATOLOGY Monocytes # 0.5 0.0 - 0.8 07/07 [facility] HEMATOLOGY Platelet 128 133 - 450 07/07 [facility] HEMATOLOGY MPV 8.3 7.4 - 10.4 07/07 [facility] HEMATOLOGY RDW 14.2 11.5 - 07/07 [place] 14.5 [facility] HEMATOLOGY MCV 93.2 80.0 - 07/07 [place] 94.0 [facility] HEMATOLOGY MCH 32.3 27.0 - 07/07 [place] 31.0 [facility] HEMATOLOGY Hgb 14.6 14.0 - 07/07 18.0 [facility] HEMATOLOGY Hct 42.2 42.0 - 07/07 54.0 [facility] HEMATOLOGY MCHC 34.7 32.0 - 07/07 [place] 36.0 [facility] HEMATOLOGY RBC 4.53 4.70 - 07/07 [place] 6.10 [facility] HEMATOLOGY WBC 6.1 3.7 - 10.4 07/07 [facility] HEMATOLOGY PT 12.3 12.0 - 07/07 14.7 [facility] HEMATOLOGY PTT 26.7 22.9 - 07/07 [place] 35.8 [facility] HEMATOLOGY INR 0.91 0.85 - 07/07 [place] 1.17 [facility] HEMATOLOGY Ly30 3.2 0.0 - 7.5 07/07 [facility] HEMATOLOGY Coag Index 1.0 -3.0-3.0 - 07/07 [place] 3.0 [facility] HEMATOLOGY Max Amp 55.2 50.0 - 07/07 [facility] 70.0 [facility] HEMATOLOGY G-value 6.2 4.5 - 11.0 07/[address] HEMATOLOGY R-time 3.8 5.0 - 10.0 07/[address] HEMATOLOGY K-time 1.7 1.0 - 3.0 07/[address] HEMATOLOGY Angle 67.9 53.0 - 07/07 [facility] 72.0 [facility] HEMATOLOGY TEG Data See Note 07/07 [facility] (07/07/18 12:01 AM) /2017 [facility] HEMATOLOGY TEG Interp Thrombelas 07/07 [facility] s tograph [facility] show shortened value of R. This finding is suggestive of enzymatic hypercoagu lation. CPT:88449 PARATHYROID Ca Norm WB 1.06 1.05 - 07/07 [facility] PROFILE . [facility] PARATHYROID Ca Ion WB 1.07 1.05 - 07/07 [facility] PROFILE . [facility] CHEM PANEL Lactic Acid 1.9 0.5 - 2.2 07/06 [facility] s Lvl [facility] CHEM PANEL Magnesium Lvl 2.1 1.8 - 2.4 07/06 [facility] [address] [place] [address] CHEM PANEL Phosphorus 2.8 2.5 - 4.5 07/[address] CHEM PANEL A/G Ratio 0.7 0.7 - 1.6 07/[address] CHEM PANEL Globulin 3.5 2.7 - 4.2 07/[address] CHEM PANEL Bili Total 0.7 0.2 - 1.3 07/[address] CHEM PANEL Bili Indirect 0.5 0.0 - 1.0 07/[address] CHEM PANEL Total Protein 5.9 6.4 - 8.4 07/[address] CHEM PANEL ALT 95 0 - 65 07/[address] CHEM PANEL Albumin Lvl 2.4 3.5 - 5.0 07/06 [facility] s [facility] CHEM PANEL Alk Phos 102 39 - 136 07/[address] CHEM PANEL AST 87 0 - 37 07/06 [facility] CHEM PANEL Bili Direct 0.2 0.0 - 0.3 07/06 [facility] ELECTROLYTE AGAP 11.7 10.0 - 07/06 [facility] S 20. [facility] ELECTROLYTE eGFR 105 07/06 Result [facility] Comment: The Medical eGFR is Center calculated [...] ELECTROLYTE BUN 17 7 - 22 07/06 [facility] ELECTROLYTE Creatinine 0.68 0.50 - 07/06 [facility] Lvl 1.40 [facility] ELECTROLYTE Potassium Lvl 3.7 3.5 - 5.1 07/06 [place] [facility] ELECTROLYTE Sodium Lvl 141 135 - 145 07/06 [facility] ELECTROLYTE CO2 25 24 - 32 07/06 [facility] 2017 [facility] ELECTROLYTE Glucose Lvl 125 70 - 99 07/06 [facility] ELECTROLYTE Chloride Lvl 108 95 - 109 07/06 [facility] as [facility] ELECTROLYTE Calcium Lvl 7.8 8.5 - 10.5 07/06 [place] [facility] HEMATOLOGY RDW 13.7 11.5 - 07/06 [facility] 14. [facility] HEMATOLOGY MCHC 35.5 32.0 - 07/06 [facility] 36.0 [facility] HEMATOLOGY Platelet 127 133 - 450 07/06 [facility]2017 [facility] HEMATOLOGY MPV 8.2 7.4 - 10.4 07/06 [facility] HEMATOLOGY WBC 6.3 3.7 - 10.4 07/06 [facility] HEMATOLOGY RBC 4.61 4.70 - 07/06 [place] 6.10 [facility] HEMATOLOGY Hgb 14.9 14.0 - 07/06 [place] 18.0 [facility] HEMATOLOGY Hct 42.1 42.0 - 07/06 [place] 54.0 [facility] HEMATOLOGY MCV 91.2 80.0 - 07/06 [place] 94.0 [facility] HEMATOLOGY MCH 32.4 27.0 - 07/06 [place] 31.0 [facility] HEMATOLOGY Lymphocytes # 1.2 1.0 - 5.5 07/06 [facility] HEMATOLOGY Monocytes # 0.6 0.0 - 0.8 07/06 [facility] HEMATOLOGY Eosinophils # 0.2 0.0 - 0.5 07/06 [facility] HEMATOLOGY Basophils # 0.1 0.0 - 0.2 07/06 [facility] HEMATOLOGY Eosinophils 2.4 0.0 - 4.0 07/06 [facility] HEMATOLOGY Neutrophils # 4.3 1.5 - 8.1 07/06 [facility] HEMATOLOGY Basophils 1.0 0.0 - 1.0 07/06 [facility] HEMATOLOGY Segs 68.6 45.0 - 07/06 [place] 75.0 [facility] HEMATOLOGY Lymphocytes 18.8 20.0 - 07/06 [place] 40.0 [facility] HEMATOLOGY Monocytes 9.2 2.0 - 12.0 07/06 [facility] PARATHYROID Ca Norm WB 1.10 1.05 - 07/06 [place] PROFILE 1. [facility] PARATHYROID Ca Ion WB 1.10 1.05 - 07/06 [place] PROFILE 1. [facility] LIPIDS LDL 76 <=99 mg/dL 07/04 [facility] (Calculated) [facility] LIPIDS VLDL 25 07/04 [facility] LIPIDS Trig 123 <=149 07/04 [facility] mg/dL [facility] LIPIDS HDL 52 >=61 mg/dL 07/04 [facility] LIPIDS Chol 153 <=199 07/04 [facility] mg/dL [facility] LIPIDS CHD Risk 2.94 4.00 - 07/04 [place] 7.30 [facility] SPECIAL Hgb A1C 5.0 <=5.6 % 07/04 [facility] CHEMISTRY [facility] CHEM PANEL Bili Direct 0.2 0.0 - 0.3 07/04 [place] [facility] CHEM PANEL Alk Phos 109 39 - 136 07/04 [facility]2017 [facility] CHEM PANEL Globulin 3.8 2.7 - 4.2 07/04 [facility]2017 [facility] CHEM PANEL Bili Total 0.9 0.2 - 1.3 07/04 [facility]2017 [facility] CHEM PANEL A/G Ratio 0.7 0.7 - 1.6 07/04 [facility]2017 [facility] CHEM PANEL ALT 112 0 - 65 07/04 [facility]2017 [facility] CHEM PANEL Total Protein 6.5 6.4 - 8.4 07/04 [place] [facility] CHEM PANEL Albumin Lvl 2.7 3.5 - 5.0 07/04 [facility] s [facility] CHEM PANEL AST 105 0 - 37 07/04 [facility]2017 [facility] CHEM PANEL B/C Ratio 18 6 - 25 07/[address] DRUG SCREEN U Cocaine Scr Negative Negative 07/04 [place] *NA* Medical (07/04/18 3:28 PM) Center DRUG SCREEN U Benzodiaz Negative Negative 07/04 [place] *NA* Medical (07/04/18 3:28 PM) Center DRUG SCREEN U Sendy Scr Negative Negative 07/04 [place] *[place]* Medical (07/04/18 3:28 PM) Center DRUG SCREEN U Amph Scr Negative Negative 07/04 [place] *NA* Medical (07/04/18 3:28 PM) Center DRUG SCREEN U Negative Negative 07/04 [place] Phencyclidine *NA* Medical Scr (07/04/18 3:28 PM) Center DRUG SCREEN U Cannab Scr Negative Negative 07/04 [place] *NA* Medical (07/04/18 3:28 PM) Center DRUG SCREEN UDS Note See Note 07/04 [facility] (07/04/18 3:28 PM) /2017 Medica l Center DRUG SCREEN U Opiate Scr Negative Negative 07/04 [place] *NA* /2017 [facility] (07/04/18 3:28 PM) [place] URINE AND UA RBC None Seen 0 - 2 07/04 [facility] STOOL (07/04/18 3:28 PM) /2017 [facility] URINE AND UA WBC None Seen None Seen 07/04 [facility] STOOL (07/04/18 3:28 PM) [facility] URINE AND UA Sq Epi None Seen Few 07/04 [place] STOOL (07/04/18 3:28 PM) /2017 [facility] URINE AND UA Bacteria None Seen None Seen 07/04 [place] STOOL (07/04/18 3:28 PM) /2017 [facility] URINE AND UA Bili Negative Negative 07/04 [facility] STOOL *NA* /2017 [facility] (07/04/18 3:28 PM) [place] URINE AND UA Ketones Negative Negative 07/04 [facility] STOOL *NA* /2017 [facility] (07/04/18 3:28 PM) [place] URINE AND UA Spec Grav 1.025 <=1.030 07/04 [facility] STOOL /2017 [facility] URINE AND UA Turbidity Clear Clear 07/04 [facility] STOOL (07/04/18 3:28 PM) /2017 [facility] URINE AND UA 1.0 0.1 - 1.0 07/[address] [facility] Urobilinogen /2017 [facility] URINE AND UA Glucose Negative Negative 07/04 [facility] STOOL (07/04/18 3:28 PM) /2017 [facility] URINE AND UA Protein >=300 Negative 07/04 [facility] STOOL mg/dL mg/dL /2017 [facility] URINE AND UA pH 6.0 5.0 - 8.0 07/04 [facility] STOOL /2017 [facility] URINE AND UA Leuk Est Negative Negative 07/04 [facility] STOOL (07/04/18 3:28 PM) [facility] URINE AND UA Nitrite Negative Negative 07/04 [facility] STOOL (07/04/18 3:28 PM) [facility] URINE AND UA Blood Moderate Negative 07/04 [facility] STOOL *ABN* /2017 [facility] (07/04/18 3:28 PM) [place] URINE AND UA Color Yellow Yellow 07/04 [facility] STOOL *NA* /2017 [facility] (07/04/18 3:28 PM) [place] CHEM PANEL POC 0.7 0.5 - 1.4 07/04 [facility] Creatinine /2017 [facility] CARDIAC Troponin-I <0.02 0.00 - 07/04 [facility] ENZYMES 0.40 [facility] CARDIAC Total CK 86 12 - 191 07/04 [facility] ENZYMES [facility] HEMATOLOGY Tot Cell Ct 100 07/04 [facility] /2017 [facility] HEMATOLOGY Plt Morph Normal 07/04 [facility] (07/04/18 2:29 PM) [facility] HEMATOLOGY RBC Morph Normal 07/04 [facility] (07/04/18 2:29 PM) [facility] HEMATOLOGY Atypical 0.0 <=0.0 % 07/04 [facility] Lymphs [facility] HEMATOLOGY Bands 0.0 0.0 - 11.0 07/04 [facility] /2017 [facility] HEMATOLOGY PTT 20.4 22.9 - 07/04 [facility] 35.8 [facility] HEMATOLOGY INR 0.93 0.85 - 07/04 [facility] 1.17 [facility] HEMATOLOGY PT 12.5 12.0 - 07/04 [facility] 14.7 [facility] Pathology Reports No Data Provided for This Section Diagnostic Reports Report Value Date Source Angiogram cervical PROCEDURE: 07/07/2018 [facility] Medi kelsey artery bilateral VR 1. [facility] DATE: 07/07/2018 12:19 PM CDT INDICATION: Bilateral internal carotid artery st enosis, watershed infarcts HISTORY: Patient is a 57-yea r-old male with history of prior transient ischemic attacks, uncontrolled hypertension, tobacco use and hep C with cirrhosis who presents with acute left sensorimotor changes of the left upper extremity . CTA demonstrated bilateral cervical internal carotid artery [...] KERMA Lateral: 247 mGy PROCEDURE: Once informed con sent was obtained describing all the risks, benefits and alternatives of the procedure the patient was brought to the interventional suite and placed in the supine position w here moderate sedation was a dministered under the supervision of the attending physician. The patient was then prepped and draped in the usual sterile fashion. The right femoral artery was accessed usin g a single wall micropunctur e technique and a 5-Pashto sheath was placed. Heparin 3000 units IV was given. A 5-Pashto Vert catheter was coaxially advanced over a 0.035 Terumo Glidewire through the sheat h into the aorta arch to beau ect the below mentioned arteries using roadmap technique. Two-dimensional angiography was performed in biplane projections. After review of the angiogra phy data, the catheter was withdrawn. Right femoral artery angiogram was performed and the catheter was removed. The femoral artery sheath was removed and closed by the appl ication of an Angio-Seal chelsea sure device. Post procedure neurological examination was at the patient's baseline. The patient was was then transferred to their unit for post procedure care. TASKS: 1. Right common carotid artery catheterization a nd 2-D cervical angiogram 2. Right internal carotid artery selective an terization and 2-D angiogram 3. Right external carotid artery selective an terization and 2-D angiogram 4. Left external carotid artery selective cathet erization and 2-D angiogram 5. Left internal carotid artery selective cathet erization and 2-D angiogram 6. Left common carotid artery catheterization an d 2-D cervical angiogram 7. Left vertebral artery selective catheterizati on and 2-D cerebral angiogram 8. Right subclavian artery catheterization and 2 -D cervical angiogram 9. Right common femoral artery catheterization a nd 2-D angiogram 10. Application of Angio-Seal vascular closure d evice FINDINGS: 1. Right common carotid sheba ry: Right common carotid artery injection and cervical angiogram reveals normal antegrade flow into the external and internal carotid arteries with normal filling of the exte rnal carotid artery branches . Course and caliber of the cervical portion of the internal carotid artery are unremarkable. Further inspection demonstrates no evidence of dissection, stenosis, aneurysm, o r other vascular abnormality within the common carotid artery into the cervical segment of the internal carotid artery. 2. Right internal carotid ar lamin: Right internal carotid artery injection reveals antegrade filling of the distal internal carotid artery, ophthalmic artery, anterior cerebral artery, middle cerebral ar lamin and the distal branches . Further inspection of the remaining right internal carotid artery circulation revealed luminal irregularity and stenosis of the petrous segment of the right internal caroti d artery. Stenosis is approx imately 70%. There is no flow limitation. These findings are consistent with possible healed dissection versus atherosclerotic disease. There is no evidence of cerebral aneur ysm, arteriovenous malformat ion, or other vascular abnormalities. Capillary and venous phase images were also unremarkable with no evidence of venoocclusive disease. Normal variants include absent retin al blush from the right internal carotid artery injection. 3. Right external carotid ar lamin: Right external carotid artery injection reveals normal antegrade opacification of the right external carotid artery and branches. There is no evidence of abnormal intra cranial communication or ear ly venous shunting. Normal variants include retinal blush supply from branches of the right middle meningeal artery. 4. Left external carotid art ne: Left external carotid artery injection reveals normal antegrade opacification of the left external carotid artery and branches. There is no evidence of abnormal intracra nial communication or early venous shunting. . Normal variants include retinal blush supply from branches of the left middle meningeal artery. 5. Left internal carotid art ne: Left internal carotid artery injection reveals normal antegrade filling of the distal internal carotid artery, ophthalmic artery, anterior cerebral artery, middle cerebr al artery and the distal bra nches. Further inspection of the remaining left internal carotid artery circulation revealed luminal irregularity and stenosis of the cavernous segment of the left internal carotid artery. Stenosis is approximately 60%. There is no flow limitation. These findings are consistent with atherosclerotic disease. There is no evidence of cerebral aneurysm, arteriovenous malformat ion, or other vascular abnor malities. Capillary and venous phase images were also unremarkable with no evidence of venoocclusive disease. Normal variants include absent retinal blush from the left internal carotid artery injection. 6. Left common carotid arter y: Left common carotid artery injection and cervical angiogram reveals normal antegrade flow into the external and internal carotid arteries with normal filling of the user experience researcher al carotid artery branches. Course and caliber of the cervical portion of the internal carotid artery are unremarkable. Further inspection demonstrates no evidence of dissection, stenosis, aneurysm, or other vascular abnormality w ithin the common carotid artery into the cervical segment of the internal carotid artery. 7. Left vertebral artery: Le ft vertebral artery injection and cerebral angiogram reveals normal antegrade opacification of the high cervical segment of the left vertebral artery, basilar artery and resp ective branches. Further ins pection demonstrates no other evidence of cerebral aneurysm, arteriovenous malformation, dissection, arterial stenosis or other vascular abnormalities. Capillary and venous p hase images were also unremarkable with no evide nce of venoocclusive disease. 8. Right subclavian artery: Right plated artery injection and cervical angiogram reveals antegrade opacification of the subclavian artery and respective branches. A diminutive right cervical vertebral a rtery is seen. Additionally, there is collateralization to the right distal cervical vertebral artery from the ascending cervical artery via muscular branches. 9. Right common femoral sheba ry: Right common femoral artery injection demonstrates arterial [...] via muscular branches. 4. Normal variants include a bsence of retinal blush from the bilateral internal carotid artery injections. The retinal blush is supplied by the branches of the bilateral middle meningeal arteries. Shoulder series DX EXAM: XR LEFT SHOULDER 3 VIEWS 07/06/2018 [facility] DATE: 07/06/2018 8:27 AM CDT Cent er INDICATION: - L shoulder pain, fracture or disl ocation? COMPARISON: None TECHNIQUE: 3 views of the shoulder FINDINGS: No acute fracture or malalignment is identified. Severe degenerative changes of the left glenohumeral joint is identified. There is also resection of the left distal clavicle with secondary heterotopic ossification. No soft tissue abnormality is identified. IMPRESSION: 1. Severe degenerative changes of the glenohum eral joint. 2. Prior resection of the left distal clavicle. Brain wo contrast MRI EXAM: MRI BRAIN WITHOUT CONTRAST 8 [facility] DATE: 07/04/2018 3:27 PM CDT Cent er INDICATION: - R ICA occlusion, new vs old infar ct ADDITIONAL INFORMATION: None COMPARISON: CT brain same day TECHNIQUE: Multiplanar, multisequence MRI of the brain without contrast. IV contrast: None. FINDINGS: There are foci of restricted diffusion in the DIOMEDES-MCA watershed territories bilaterally with associated FLAIR hyperintensity. There are lacunar infarcts i n the ro radiata. There are punctate hyperintensities in the supratentorial white matter, likely sequela of chronic small vessel ischemic disease. There is no acute or chronic intracranial hemorrhage. The ventricles are prominent secondary to parenchymal volume loss. There is no extra-axial fluid collection. The orbital globes are intact. There is mild mucosal thickening in the left maxillary a ntrum. IMPRESSION: 1. Acute bilateral DIOMEDES-MCA and right MCA MANAGER FIELD watershed territory ischemic infarcts. No intracranial hemorrhage is identified. The findings are compatible with embolic ischemic infarcts. 2. Moderate cerebral atrophy and changes of chr onic small vessel ischemia. Chest 1view DX EXAM: XR CHEST 1 VIEW 07/04/2018 [facility] DATE: 07/04/2018 2:01 PM CDT Cent er INDICATION: -Stroke symptoms ADDITIONAL INFORMATION: Marleny f complaint -- 'Sent from [place] - 3am left arm weakness and numbness bp-212 . Here for neuro consult hx - TIA BS-114' COMPARISON: Outside chest radiograph 07/04/2018 a t 0920 hours TECHNIQUE: AP chest. FINDINGS: Lines, tubes and hardware: EKG leads overlie the chest. Lungs and pleura: Low lung v olumes are present, with bibasilar subsegmental atelectasis. No pleural effusion or pneumothorax. Heart and mediastinum: The h eart size is normal for technique. The thoracic aorta is calcified, ectatic and tortuous. Pulmonary vascularity is normal. Bones: No acute abnormality. Degenerative changes of the shoulders, left greater than right. IMPRESSION: Low lung volumes without acute abnormality. UT SECTION: ER Brain Stroke wo EXAM: CT BRAIN WITHOUT CONTRAST 07/04/2018 [facility] contrast CT DATE: 07/04/2018 14:54 CDT Center INDICATION: Code stroke Additional information: 57-y ear-old male with history of hep C/cirrhosis, uncontrolled hypertension, and active tobacco use who presented with left-sided weakness. COMPARISON: CT brain without contrast from OSH on 07/04/2018 at 08:40 AM CDT and concurrent CTA brain/neck. TECHNIQUE: Routine axial CT images of the brain were obtained with sagittal and coronal reformats. IV contrast: None. DLP: 766 mGy-cm FINDINGS: Heterogeneous hypodensity no willow in the left posterior parietal lobe, which was noted on the previous study. This may be an age-indeterminate ischemic change. Several bilateral scattered white matter hypodensities, consistent with chronic microvascular disease. Diffuse parenchymal volume l oss. Ventricles appear to be enlarged out of proportion to this volume loss. 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 Basal cisterns are well preserved. No evidence o f herniation. Calvarium is intact. Visuali zed paranasal sinuses are clear. Mastoid air cells [...] loss Brain/Neck Stroke EXAM: CTA BRAIN 07/04/2018 [facility] perfusion CTA EXAM: CTA NECK Center EXAM: CT PERFUSION BRAIN DATE: 07/04/2018 14:54 PM CDT INDICATION: CVA COMPARISON: Concurrent CT noncontrast TECHNIQUE: - Dynamic CT perfusion image s on a limited area of the brain [...] of CT angiograph y. 3-D CT angiographic image s are created using MIP technique at the acquisition workstation. The source images are also presented for interpretation. IV contrast: Visipaque 100 mL DLP: 4184 mGy-cm FINDINGS: NECK CTA: Aortic arch: The left verteb ral artery arises directly from the aortic arch. No origin stenosis is identified. The vertebral artery origins are patent bilaterally. Carotid arteries: The cervic al common carotid arteries and cervical internal carotid arteries have a normal course, caliber, and contour. There are areas of calcification at the carotid bifurcations. No hemodynamically significant stenosis of the carotid bifurcations or internal carotid arteries is present by NASCET criteria. There is no evidence of vascular injury. Vertebral arteries: Left dom inant vertebral system, which is an anatomic variant. The vertebral arteries have a normal course, caliber and contour. The soft tissues of the neck and other incidenta l structures are normal. BRAIN CTA: Anterior circulation: Almost complete occlusion of the distal petrous portion of the right internal carotid is seen extending through the foramen the cerebral. Normal distal flow is identified, the occl usion is due to a mixed athe romatous plaque that has a soft tissue and calcific component.. Atheromatous changes are seen in both internal carotids and their cavernous segments. Approximately 90% occlusion is seen in the clinoid portion of the internal carotid artery on the left side due to a mixed atheromatous plaque that has a soft tissue and calcified components. Normal distal flow is seen. Normal appearance and a sta ndard branching pattern of the rest of the vessels. No other branch occlusion, vascular injury, arteritis, vascular malformation or aneurysm is identified. Posterior circulation: Darlene l appearance and a standard branching pattern. No branch occlusion, vascular injury, arteritis, vascular malformation or aneurysm is identified. A dominant left vertebral artery is present. The tetlin of Mcdaniel is normal. The deep cerebral veins and major venous sinuses are normal. The brain parenchyma and other incidental struct ures are unremarkable. CT PERFUSION: There is no regional abnorma lity in cerebral blood flow, cerebral blood volume, [...] is infinite. The time to peak greater boo n 4 seconds involves both cerebral hemispheres in the MCA territories and likely represent slow flow from the carotid stenosis. IMPRESSION: 1. Bilateral internal carot id artery occlusions, the right side is approximately 90% and is located in the distal petrous segment and on the left side is in the clinoid segment also measuring approximately 90%. Normal distal flow is present. 2. Dominant left vertebral artery. 3. Perfusion studies demons trate increased time to peak on both sides, more prominent on the right MCA territory with normal cerebral blood flow. (All qualitative and quantit ative assessments of carotid bifurcation and proximal internal [...] Comments Source Systolic (mm Hg) 131 07/08/2018 [facility] Diastolic (mm Hg) 69 07/08/2018 [facility] Respitory Rate 22 07/08/2018 [facility] Systolic (mm Hg) 153 07/08/2018 [facility] Diastolic (mm Hg) 100 07/08/2018 [facility] Respitory Rate 18 07/08/2018 [facility] Respitory Rate 22 07/08/2018 [facility] Systolic (mm Hg) 138 07/08/2018 [facility] [place] Diastolic (mm Hg) 71 07/08/2018 [facility] Weight 88.636 07/08/2018 [facility] BMI Calculated 28.86 07/08/2018 [facility] Height 175.26 cm 07/08/2018 [facility] Temperature Oral (F) 97.8 F 07/08/2018 [facility] Temperature Oral (F) 97 F 07/08/2018 [facility] Temperature Oral (F) 98.0 F 07/08/2018 [facility] Height 177.8 cm 07/07/2018 [facility] [place] Weight 88.636 07/07/2018 [facility] BMI Calculated 28.04 07/07/2018 [facility] Weight 88.636 07/04/2018 [facility] BMI Calculated 28.04 07/04/2018 [facility] Height 177.8 cm 07/04/2018 [facility] Heart Rate 65 07/04/2018 [facility] Heart Rate 65 07/04/2018 [facility] [place] Heart Rate 62 07/04/2018 [facility] [place] Encounters Location Location Encounter Encounter Reason Attending ADM DC Stat us Source Details Type Number For Provider Date Date Visit [facility] Inpatient [id number] Kin 07/04 07/08 Jamie Abdul Umaña /2017 [facility] [id number] Solitario 04/14 04/14 [facility]Reg Krell /2018 [facility] Procedures Procedure Code Date Perfomer Comments Source Selective catheter 18506 07/07/2018 Patrice as placement, vertebral Medi kelsey artery, unilateral, Cente r with angiography of the ipsilateral vertebral circulation and all associated radiological supervision and interpretation, includes angiography of the cervicocerebral arch, when performed Assessment and Plan Assessment and Plan Date Source Extracted from:Title: Stroke Discharge Summary 07/08/2018 [facility] Author: Shasha Fan DO Date: 07/09/18 [facility] SUMMARY Date of Admission: 07/04/18 Date of Discharge: 07/08/18 Admit Diagnosis: acute cva Discharge Diagnoses:acute BL DIOMEDES-MCA and R MCA-MANAGER FIELD borderzone territory infarcts, essential hypertension, hyperlipidemia, bilateral ICA stenosis Consults Obtained:none HPI and Hospital Course: DINO CARDOZA is a 57 yo RH man with h istory of prior TIAs (versus stroke), uncontrolled HTN with medication non-compliance, active tobacco use and Hep C with cirrhosis not on AP or AC. He presented to [facility] ere vitals were notable for BP 217/114. Telestroke was initiated with NIHSS = 5 for L VF deficit, L FD, LUE distal > proximal, LLE weakness. CTH was negati ve for hemorrhage, hypodensity noted in L posterior parietal lobe. IV tPA was not administered as patient was out of window. Patient was subsequently transferred to [facility] for further management. Upon presentation, vitals notable for SB P 170-200s. NIHSS = 5 for L VF, L FD, and LUE drift. Repeat CTH again negative for hemorrhage with hypodensity in L posterior parietal lobe. CTA H/N revealed BL I CA occlusions, R distal petrous segment and L clinoid segment, with intracranial reconstitution, no PCOMs. CTP demonstrated increased transit time R > L. Given concern for acute versus chronic oc clusions, patient was taken for STAT MRI brain which revealed acute BL DIOMEDES-MCA and R MCA-MANAGER FIELD borderzone territory infarcts without susceptibility on GRE. [...] ed a significant right ICA stenosos of a bout 80%. LICA showed about a 50% stenosis. [...] has word finding difficulties intact including naming, comprehension, repetition. Cognition and memory grossly intact. Attention intact. No neglect. CN: visual samuels grossly intact. EOMI w ithout gaze restriction or nystagmus. Facial sensation intact to LT. L NLFF with symemtric smile Hearing intact to finger rub bilaterally. Uvula midline with symmetric palatal elevation. MOTOR: Normal bulk and tone. LUE 3/5 huerta ited by shoulder paint proximally but 4+/5 distal strength . LLE antigravity without drift. RUE and RLE antigravity without drift. SENSORY: Intact to LT throughout, no extinction to DSS. COORDINATION: No dysmetria or ataxia on FTN on R. GAIT: Deferred. Final Diagnosis: acute BL DIOMEDES-MCA and R MCA-MANAGER FIELD borderzone t erritory infarcts Etiology of Stroke:large vessel Discharge Medications: See R for full list of medications. Lobo patterson is provided with this list at discharge. Follow up and Important Plans for Future Care: Home Care Instructions Notify Physician if any of the Following Occur : Bleeding, Fever, Nausea, Pain, Shortness of breath, Signs of infection, Swelling, Other: new arm/leg weakness, new arm/leg numbness, slurred speech, vision changes, inability to speak Special Home Care Instructions : You w ere admitted to the [place] [facility] service at [facility] in the [facility]. You were admitted for strokes. 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 Medications: - Take Aspirin 325 mg daily and Plavix 7 5 mg daily for stroke prevention (3 months) - Take Atorvastatin 20 mg daily for high cholesterol. - Take your blood pressure medications d aily and monitor your blood pressure at home (goal <140/90). - Blood pressure medication include amlo dipine 5 mg daily and lisinopril 20 mg daily - Take your other medications as instructed in your discharg e summary. Follow-up appointments: -Arranged for patient to follow up with the [facility] [phone] on July 21, [address] Doe - Please call your PCP to schedule an ap pointment within 2-4 weeks for post- hospitalization follow-up and management of your overall health. Please call our nurse navigator Magi ([phone]) with any questions after discharge. Please take your discharge paperwork with you to your follow-up appointments. Returning back to work/school will be addressed at your follow-up appointment. Stroke clinic address: [facility] [address] [place] [address] , [address] [place] [address] Physician Follow-Up v2 Follow-Up With Provider : physician, Non- physician MH Provider #1 : Bridgett Duncan MD Follow-Up Call : Appointment is scheduled Follow-up with MH Provider within : 2 Weeks Reason : Follow Up On Treatment Non MH Provider #1 : primary care physician Follow-Up Call : Call for appointment Follow-Up Within : 2 Weeks Reason : Primary Care Physician follow up post hospitaliza tion Discharge Instructions/Recommendations: The patient received stroke educati on regarding signs and symptoms of stroke. They were instructed to call 911 if similar symptoms occurred again. The list of their medications on discharged was reviewed with the patient and all questions were answer ed. Smoking cessation counseling was provided to the patien elba Fan DO PGY2, [facility] Neurology Attending Note I have personally evaluated the patient. I have reviewed the resident's note detailed above and have made appropriate changes to hospital course and plan above. Please do not hesitate to contact with questions Bridgett Duncan MD [facility] Stroke Attending clinic [phone] office [phone] Attending Note I have personally evaluated the patient. I have reviewed the resident's note detailed above and have made appropriate changes to hospital course and plan above. Please do not hesitate to contact with questions Bridgett Duncan MD M[facility] Stroke Attending clinic [phone] office [phone] Extracted from:Title: Stroke Progress Note Author: Shasha Fan DO Date: 07/08/18 Stroke Progress Note Subjective: No acute overnight events. p atient states he feels fine, left shoulder still painful and limiting range of motion. no further issues History of Present Illness: DINO CARDOZA is a 57 yo RH man with h istory of prior TIAs (versus stroke), uncontrolled HTN with medication non-compliance, active tobacco use and Hep C with cirrhosis not on AP or AC with mRS = 0 wh o presents as a transfer from [facility] with wake up symptoms of L sensory-motor changes involving LUE. Patient was LSN 11PM on 07/03/2018. Ethel cobian was in his usual state of health [...] pain or numbness. He p resented to [facility], where vitals were notable for BP 217/114. Telestroke was initiated with NIHSS = 5 for L VF deficit, L FD, LUE distal > proximal, LLE weakness. CTH was negative f or hemorrhage, hypodensity noted in L po sterior parietal lobe. IV tPA was not administered as patient was out of window. Patient was subsequently transferred to [facility] for further management. Upon presentation, vitals notable for SB P 170-200s. NIHSS = 5 for L VF, L FD, and LUE drift. Repeat CTH again negative for hemorrhage with hypodensity in L posterior parietal lobe. CTA H/N revealed BL I CA occlusions, R distal petrous segment and L clinoid segment, with intracranial reconstitution, no PCOMs. CTP demonstrated increased transit time R > L. Given concern for acute versus chronic oc clusions, patient was taken for STAT MRI brain which revealed acute BL DIOMEDES-MCA and R MCA-MANAGER FIELD borderzone territory infarcts without susceptibility on GRE. Upon further review, no recent episodes concerni ng for hypotension including syncope or presyncope. He [...] left shoulder LYMPH/IMMUNO: no lymph node enlargement/tenderness, heat/col d intolerance Physical Exam: Vitals Tmp(F) Pulse BP RR SpO2 FIO2 07/08 06:00 ---- 53 154/67 -- 95 --- 07/08 05:00 ---- 61 139/65 -- 94 --- 07/08 04:00 ---- 51 138/68 -- 94 --- 07/08 03:00 ---- 49 127/62 26 93 --- 07/08 02:41 98.0 --- ----- -- --- --- 24 Hr Tmax: 99.0F (37.22c) at 07/07 20:0 6 Vital Signs are the last 5 in [...] neglect. CN: visual samuels grossly intact. EOMI w ithout gaze restriction or nystagmus. Facial sensation intact to LT. L NLFF with symemtric smile Hearing intact to finger rub bilaterally. Uvula midline with symmetric palatal elevation. MOTOR: Normal bulk and tone. LUE 3/5 huerta ited by shoulder paint. LLE antigravity without drift. RUE and RLE antigravity without drift. SENSORY: Intact to LT throughout, no extinction to DSS. COORDINATION: No dysmetria or ataxia on FTN on R. GAIT: Deferred. Labs: WBC 6.4 (JUL 08) 6.1 (JUL 07) 6.3 (JUL 06) 7.1 (JUL 05) Hgb 14.8 (JUL 08) 14.6 (JUL 07) 14.9 (JUL 06) 15.6 (JUL 05) Hct L 41.7 (JUN 12) 42.2 (JUL 07) 42.1 (JUL 06) 44.8 [...] 08) H 110 (JUL 07) 108 (JUL 06) 100 (JUL 04) Cr 0.65 (JUL 08) 0.82 (JUL 07) 0.68 (JUL 06) 0.68 (JUL 04) BUN 12 (JUL 08) 17 (JUL 07) 17 (JUL 06) 12 (JUL 04) Glucose Random H 116 (JUL 08 ) 97 (JUL 07) H 125 (JUL 06) H 109 (JUL 04) Mg 2.3 (JUL 08) 2.2 (JUL 07) 2.1 (JUL 06) Phos 3.8 (JUL 08) 2.6 (JUL 07) 2.8 (JUL 06) Ca L 8.1 (JUL 08 ) L 8.0 (JUL 07) L 7.8 (JUL 06) 8.6 (JUL 04) PT 12.3 (JUL 07) 12.5 (JUL 04) INR 0.91 (JUL 07) 0.93 (JUL 04) PTT 26.7 (JUL 07) L 20.4 (JUN 12 4) Troponin <0.02 (JUL 04) Total CK 86 (JUL 04) EKG: nsr Imaging: CT head: 1. Hypodensity in the left posterior pa rietal lobe, may be consistent with age and to determine if ischemic change. 2. Chronic microvascular disease. 3. Diffuse volume loss CTA head/neck: 1. Bilateral internal carotid artery oc clusions, the right side is approximately 90% and is located in the distal petrous segment and on the left side is in the clinoid segment also measuring approximately 90%. Normal distal flow is present. 2. Dominant left vertebral artery. 3. Perfusion studies demonstrate increa sed time to peak on both sides, more prominent on the right MCA territory with normal cerebral blood flow. MRI brain: 1. Acute bilateral DIOMEDES-MCA and right MC A MANAGER FIELD watershed territory ischemic infarcts. No intracranial hemorrhage is identified. The findings are compatible with embolic ischemic infarcts. 2. Moderate cerebral atrophy and changes of chronic small v essel ischemia. TTE Conclusions 1) This study demonstrates normal left ventricular size and overall systolic function, mild tricuspid regurgitation with normal estimated pulmonary artery systolic pressures, and a negative agitated saline contrast study compatible with no significant interatrial sh unt communication. 2) No previous echocardiogram was available for comparison. Assessment/Plan: 57 yo RH man with history of prior TIAs versus stroke, uncontrolled HTN with medication non-compliance, active tobacco use and Hep C with cirrhosis not on AP or AC with mRS = 0 who presents as a transfe r from [facility] with wake up symptoms of L sensory-motor changes involving LUE, out of window for IV tPA. NIHSS = 5 for L VF, L FD, and LUE drift. CTH negative for hemorrhage with hypodensit y noted in L posterior parietal lobe. CT A H/N revealed BL ICA occlusions, R distal petrous segment and L clinoid segment, with intracranial reconstitution. CTP demonstrated increased transit time R &amp ;gt; L. MRI brain with acute BL DIOMEDES-MCA and R MCA-MANAGER FIELD borderzone territory infarcts without susceptibility on GRE, s/p ASA and Plavix load for maximal medical management. 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 Acute Ischemic Stroke Acuity: Acute Current Suspected Etiology: large vessel Continue Evaluation: -Admit to: Stroke Unit with close observation -continue w/ ASA 325mg and plavix 75 mg qd -Atorvastatin 20mg QHS -Allow SBP goal 120-160 -Maintain HOB flat, mIVF in place for hy dration and monitor for flucutations in examination -TTE normal EF, no wall motion abnormalities/A1C 5/Lipid villa el LDL 76 -PT/OT/ST therapies and recommendations when able -CTA angio showing >90% stenosis bilateral ICA -TCD showing 50% stenosis left siphon ica stenosis, right no t well visualized -Diagnostic angiogram does not show 90% stenosis of left ICA about 40-60% per my read, right ICA severe stenosis 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 In setting of no fever, leukocytosis will draw another set of BC for suspicion of contamination. Low threshhold for abx if patient exemplifies infection signs/symptoms. - repeat cultures negative Prophylaxis DVT: SQH GI: NA Bowel: Senna BID PRN Diet: Heart Healthy Code Status: Full Code An Fan, DO PGY2, [facility] Neurology CORE MEASURES: 1) Antithrombotics have been ordered an d actually given before the end of hospital day 2 2) Statins have been ordered 3) The rehab assessment has been ordered and assesment has b een done 4) The patient did not received tpA because did not fit inst itutional protocol Stroke education: Our team has discussed [...] impo rtance of life style modification for ri sk factor control has been emphasized. I have [...] addition, I have reviewed the patient's neuroimaging find ings which reveal: CTA: severe flow limiting stenosis bilat eral INTRACRANIAL internal carotid arteries. MRI: bilateral infarcts DIOMEDES/MCA watershed as well as right A CA/MANAGER FIELD watershed TTE: normal EF LDL 76 ALT / AST 105/112 HgbA1c 5.6 TCD 50% stenosos left ICA, right ICA not well visualized wit h windowing Cerebral angiogram: more than 70% stenos is intracranial right ICA, approximately 50% on left. Neurologic exam: Awake and alert. Full o riented. Left facial weakness. Left arm 3/5. left leg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
--- OUTSIDE RECORDS SUMMARY | 2020-09-05 09:30 | XMS REPORT | Continuity of Care Document ---
:1960 Author Organization [facility] [place] [facility] t Address [address] [place] [address] Care Team Providers Name Role Phone AYE Primary Care Physician Unavailable Jason WOOTEN, L Attending Clinician Manisha Kim MD Attending Clinician Dino Beach Attending Clinician RIVAS Attending Clinician Unavailable GERALDO Attending Clinician Unavailable Bee Duncan Attending Clinician Jennifer Admitting Clinician Problems Condition Condition Condition Status Onset Resolution Last Treating Co mments Source Name Details Category Date Date Treatment Clinician Date ISCHEMIC Diagnosis Active 2018-07-04 M emoria CVA 07-04 14:39:00 l ISCHEMIC 00:00: Suman ying CVA 00 Active 07/04/2018 [facility] ACUTE Diagnosis Active 2018-09-25 Mem oria BILAT 07-04 15:33:00 l WATERSHED ACUTE 00:00: Suman ying INFARCTION BILAT 00 WATERSHED INFARCTION Active 07/04/2018 [facility] Confusion Confusion Disease Active Tarik ris 7-13 Health 00:00: 00 History of History of Problem Active U nivers stroke stroke ity of [place] Physici ans Essential Essential Problem Active Uni vers hypertensi hypertensi it y of on on [place] [facility] Carotid Carotid Problem Active Univers artery artery ity of stenosis stenosis [place] with with Physici cerebral cerebral ans infarction infarction less than less than 8 weeks 8 weeks ago ago Bilateral Bilateral Problem Active Uni vers carotid carotid ity of artery artery [place] stenosis stenosis Physic i ans History of History of Problem Resolve Univers hepatitis hepatitis d [facility]y of [place] Physici ans History of History of Problem Resolve Univers Hypertensi Hypertensi d it y of on on [place] Physici ans Cerebral Cerebral Disease Active Harri s microvascu microvascu He alth lar lar disease disease Cerebral Problem 2019-01-25 Mem oria infarction 13:05:53 l due to Cerebral Suman n unspecifie infarction d due to occlusion unspecifie or d stenosis occlusion of or bilateral stenosis middle of arteries bilateral middle arteries 01/25/2019 [facility] Hemiplegia Problem 2019-01-25 M emoria , 13:05:53 l unspecifie Suman n d Hemiplegia affecting , left unspecifie nondominan d t side affecting left nondominan t side 01/25/2019 [facility] Hypertensi Problem 2019-01-25 M emoria ve 13:05:53 l emergency Franko Hypertensi ve emergency 01/25/2019 [facility] Essential Problem 2019-01-25 Me moria (primary) 13:05:53 l hypertensi Suman n on Essential (primary) hypertensi on 01/25/2019 [facility] Unspecifie Problem 2019-01-25 M emoria d viral 13:05:53 l hepatitis Franko C without Unspecifie hepatic d viral coma hepatitis C without hepatic coma 9 [facility] Unspecifie Problem 2019-01-25 M emoria d 13:05:53 l cirrhosis Franko of liver Unspecifie d cirrhosis of liver 01/25/2019 [facility] NIHSS Problem 2019-01-25 Memor ia score 5 13:05:53 l NIHSS Leary score 5 01/25/2019 [facility] Hyperlipid Problem 2019-01-25 M emoria emia, 13:05:53 l unspecifie Suman n d Hyperlipid emia, unspecifie d 01/25/2019 [facility] Facial Problem 2019-01-25 Memor ia weakness 13:05:53 l Facial Franko weakness 01/25/2019 [facility] Nicotine Problem 2019-01-25 Mem oria dependence 13:05:53 l , Nicotine Suman n cigarettes dependence , , uncomplica cigarettes willow , uncomplica willow 01/25/2019 [facility] Personal Problem 2019-01-25 Mem oria history of 13:05:53 l transient Personal Her lewis ischemic history of attack transient (TIA), and ischemic cerebral attack infarction (TIA), and without cerebral residual infarction deficits without residual deficits 01/25/2019 [facility] Patient's Problem 2019-01-25 Me moria other 13:05:53 l noncomplia Suman n nce with Patient's medication other regimen noncomplia nce with medication regimen 01/25/2019 [facility] OTHER Diagnosis Active 2018-09-25 Mem oria CEREBRAL 15:33:00 l INFARCTION OTHER Nena nn CEREBRAL INFARCTION Active [facility] Cerebral Problem 2018-0 2019-01-25 2019-01-25 Memoria infarction - 13:05:53 13:05:53 l due to Cerebral 03:46: Suman ying unspecifie infarction 45 d due to occlusion unspecifie or d stenosis occlusion of or bilateral stenosis carotid of arteries bilateral carotid arteries 8 01/25/2019 [facility] Allergies, Adverse Reactions, Alerts Allergy Allergy Status Severity Reaction(s) Onset Inactive Treating Comm ents Source Name Type Date Date Clinician No Known No Known Active Memori a Medicati Medicati l on on rFanko agrawal s Social History Social Habit Start Date Stop Date Quantity Comments Source Sex Assigned At [place] Chris alth Social History 2018-07-04 2018-07-04 [facility] anastasiia 23:48:27 23:48:27 Cigarettes smoked 2018-05-23 2018-05-23 [facility] current (pack per 00:00:00 00:00:00 day) - Reported Alcohol intake 2018-05-23 2018-05-23 Current drinker Datical 00:00:00 00:00:00 of alcohol (finding) Alcohol Comment 2018-05-23 2018-05-23 quit Sky Perez alth 00:00:00 00:00:00 Smoking Status Start Date Stop Date Source Former smoker [facility] Current every day smoker 2018-05-23 00:00:00 [facility] Medications Ordered Filled Start Stop Current Ordering Indication Dosage Frequency Signature Comments Components Source Medication Medication Date Date Medication? Clinician (SIG) Name Name Atorvastati Atorvastati Yes Dianelys [address] [facility] n Calcium n Calcium 7-24 Millender in evening [facility] - 00:00: Memoria [facility] Clopidogrel Clopidogrel Yes Dianelys [address] [facility] Bisulfate Bisulfate 7-24 [facility] - 00:00: Memoria [facility] Lisinopril Lisinopril Yes Dianelys [address] [facility] 7-24 [facility] - 00:00: Memoria [facility] amLODIPine amLODIPine Yes YANELI TAKE 1 Univers Besylate 5 Besylate 5 9-10 SAMUEL M.D. TABLET BY ity of MG Oral MG Oral 00:00: MOUTH [place] Tablet Tablet 00 EVERY DAY Physic i ans Aspirin 325 Aspirin 325 Yes YANELI TAKE 1 Univers MG Oral MG Oral 9-10 SAMUEL M.D. TABLET BY ity of Tablet Tablet 00:00: MOUTH [place] 00 EVERY DAY Physici ans Atorvastati Atorvastati Yes YANELI 1 QD TAKE 1 Univers n Calcium n Calcium 9-10 SAMUEL M.D. TABLET ity of 20 MG Oral 20 MG Oral 00:00: DAILY [place] Tablet Tablet 00 Physici ans Clopidogrel Clopidogrel Yes YANELI QD TAKE 1 Univers Bisulfate Bisulfate 9-10 SAMUEL M.D. TABLET BY ity of 75 MG Oral 75 MG Oral 00:00: MOUTH [place] Tablet Tablet 00 EVERY DAY Physic i ans Lisinopril Lisinopril Yes YANELI 1 QD TAKE 1 Univers 20 MG Oral 20 MG Oral 9-10 SAMUEL M.D. TABLET ity of Tablet Tablet 00:00: DAILY [place] 00 Physici ans amLODIPine 2018- Yes 5 mg = 1 Mem oria 5 mg oral 8-28 tab, PO, l tablet 19:26: Daily, # Leary 00 30 tab, 2 Refill(s) lisinopril Yes 20 mg = 1 Me moria 20 mg oral 8-28 tab, PO, l tablet 19:26: Daily, # Leary 00 30 tab, 2 Refill(s) clopidogrel Yes 75 mg = 1 M emoria 75 mg oral 8-28 tab, PO, l tablet 19:26: Daily, # Franko 00 30 tab, 2 Refill(s) atorvastati Yes 20 mg = 1 M emoria n 20 mg 07-08 tab, PO, l oral tablet 19:26: Bedtime, # Franko 00 30 tab, 2 Refill(s) Aspirin 325 Yes 325 mg = 1 Memoria MG Enteric 07-08 tab, PO, l Coated 19:26: Daily, # Franko Tablet 00 30 tab, 2 Refill(s) Lisinopril No Notes: Memor ia 07-08 (Same as: l 17:00: Prinivil, Leary 00 Zestril) Docusate No Notes: Memoria Sodium 50 07-07 (Same as l MG / 22:00: Senokot-S) sennosides, 00 Equiv. to HALF-WAY 8.6 MG Anai-Colac Oral Tablet e. Tramadol No Notes: Not Mem oria 07-07 to exceed l 18:07: 400mg/day. Franko 00 (Same As: Ultra) Midazolam No 2 mg, Memoria 07-07 Route: l 18:04: IVP, ONCE, Dosing Weight 88.636, kg, Start date: 07/07/18 13:04:00 CDT, Stop date: 07/07/18 13:04:00 CDT Fentanyl No 100 Memoria 07-07 microgram, l 18:04: Route: IV, ONCE, Dosing Weight 88.636, kg, Start date: 07/07/18 13:04:00 CDT, Stop date: 07/07/18 13:04:00 CDT Omnipaque No 150 mL, Memor ia 300 07-07 Route: l 18:04: INTRAARTER Leary 00 IAL, Dosing Weight 88.636, kg, ONCE, Start date: 07/07/18 13:04:00 CDT, Stop date: 07/07/18 13:04:00 CDT captopril No Notes: Memori a 07-07 Give on l 17:25: empty Leary 00 stomach. 1 hour before meal. (Same As: Capoten) remove No Notes: Memoria patch 07-07 Remove l 02:00: patch 12 Franko 00 hours after applicatio n each day. remove No Notes: Memoria patch 07-06 Remove old l 14:00: patch Leary 00 before applicatio n of new patch. WASTE: F/P - P Waste Black; E - P Waste Black Aspirin 325 No Notes: Papi jigna MG Enteric 07-06 Take with l Coated 14:00: food. Leary Tablet 00 Lidocaine No Notes: Memori a 0.05 MG/MG 07-06 Apply only l Transdermal 14:00: once for He rmann Patch 00 up to 12 hours in a 24-hour period (12 hours on and 12 hours off). (Same as: Lidoderm) "Remove old patch before applicatio n of new patch" Amlodipine No 5 mg, 1 Papi jigna - tab, l 13:03: Route: PO, Leary 00 Drug form: TAB, Daily, Dosing Weight 88.636, kg, Start date: 07/06/18 8:03:00 CDT, Duration: 30 day, Stop date: 08/04/18 9:00:00 CDT Tylenol No Notes: Do Memor ia 07-06 not exceed l 07:07: 4 gm/day. Franko (Same as: Tylenol) Spironolact No 25 mg = 2 M emoria one 8-25 tab, PO, l 16:50: Daily, # Franko 00 60 tab, 0 Refill(s) Furosemide No Daily, 0 Mem oria 8-25 Refill(s) l 16:50: Leary 00 amLODIPine No 20 mg = 2 Me moria 10 mg oral 8-25 tab, PO, l tablet 16:50: QAM, 0 Franko 00 Refill(s) Nicotine No Notes: Memoria 8-25 (Same as: l 14:00: Habitrol) Franko "Remove old patch before applicatio n of new patch" WASTE: F/P - P Waste Black; E - P Waste Black Plavix No Notes: Memoria 8-25 (Same As: l 14:00: Plavix) Leary Aspirin 81 No Notes: Do Me moria MG Enteric 25 not crush l Coated 13:00: or chew. Leary Tablet 00 (Same As: Ecotrin) Saline No Notes: Memoria Flush 0.9% 8-25 (Same as: l 02:00: BD Posiflush) atorvastati No Notes: Papi jigna n 8-25 (Same As: l 02:00: Lipitor) sennosides, No Notes: Papi jigna HALF-WAY 8-24 (Same as: l 22:46: Senokot) Plavix No Notes: ( Memoria 8-24 Same as: l 21:26: Plavix) Aspirin 325 No Notes: Papi jigna MG Oral 824 Take with l Tablet 21:26: food. heparin No Notes: Memoria 8-24 porcine l 21:00: heparin iodixanol No 100 mL, Memor ia 24 Route: l 20:05: IVP, Drug Form: SOLN, Dosing Weight 88.636, kg, ONCALL, STAT, Start date: 07/04/18 15:05:00 CDT, Duration: 1 doses or times, Dose = 2.2ml/kg, Max dose = 100ml -- "To be infused by Radiology Staff ONLY" Saline No Notes: Memoria Flush 0.9% -24 (Same as: l 20:01: BD Posiflush) Hydralazine No Notes: Papi jigna 8-24 (Same as: l 20:01: Apresoline ) Push over 5 minutes Labetalol No 10 mg, 2 Papi jigna 8-24 mL, Route: l 20:01: IVP, Drug form: INJ, Q15Min, Dosing Weight 88.636, kg, PRN Hypertensi on, Start date: 07/04/18 15:01:00 CDT, Duration: 30 day, Stop date: 08/03/18 15:00:00 CDT Ondansetron No Notes: Papi jigna 8-24 (Same as: l 20:01: Zofran) MEDICATION WASTE Product Size: 4 mg Product Wasted: ___ mg Sodium No 1,000 mL, Memori a Chloride 24 Rate: 100 l 0.9% IV 20:01: ml/hr, Franko 1,000 mL 00 Infuse over: 10 hr, Route: IV, Dosing Weight 88.636 kg, Total Volume: 1,000, Start date: 07/04/18 15:01:00 CDT, Duration: 30 day, Stop date: 08/03/18 15:00:00 CDT, 2.11, m2 Saline No Notes: Memoria Flush 0.9% 24 (Same as: l 19:01: BD Franko 00 Posiflush) Amlodipine Amlodipine Yes Dianelys [address] [facility] Besylate Besylate Millender [facility] Lasix Lasix Yes Dianelys [address] [facility] [facility] Spironolact Spironolact 2019- No Dianelys [address] [facility] one one 11-24 [facility] Vital Signs Vital Name Observation Time Observation Value Comments Source BP Systolic 2018-07-21 150 mm[Hg] Location: [facility] 10:50:00 Position: [place] Physician s Sitting BP Diastolic 2018-07-21 83 mm[Hg] Location: [facility] 10:50:00 Position: [place] Physician s Sitting Height 2018-07-21 67 [in_us] [facility] 10:50:00 [place] Physician s Weight 2018-07-21 184 [lb_av] [facility] 10:50:00 [place] Physician s Body Mass Index 2018-07-21 28.82 kg/m2 [place] o f Calculated 10:50:00 [place] Physician s Heart Rate 2018-07-21 55 /min Location: R [facility] 10:50:00 Brachial [place] Physician s Artery; Systolic (mm Hg) 2018-07-08 [facility] rmann 21:00:00 Diastolic (mm Hg) 2018-07-08 [facility] ermann 21:00:00 Respitory Rate 2018-07-08 [facility] Herm sylvia 21:00:00 Systolic (mm Hg) 2018-07-08 [facility] rmann 20:00:00 Diastolic (mm Hg) 2018-07-08 [facility] ermann 20:00:00 Respitory Rate 2018-07-08 [facility] sylvia 20:00:00 Respitory Rate 2018-07-08 [facility] sylvia 19:00:00 Systolic (mm Hg) 2018-07-08 [facility] He rmann 19:00:00 Diastolic (mm Hg) 2018-07-08 [facility] ermann 19:00:00 Weight 2018-07-08 Memorial Suman n 18:46:00 BMI Calculated 2018-07-08 [facility] sylvia 18:46:00 Height 2018-07-08 175.26 cm Memorial Suman n 18:46:00 Temperature Oral 2018-07-08 97.8 F [facility] Chris rmann (F) 16:36:00 Temperature Oral 2018-07-08 97 F [facility] Chris rmann (F) 12:38:00 Temperature Oral 2018-07-08 98.0 F Memorial Chris rmann (F) 07:41:00 Height 2018-07-07 177.8 cm Memorial Suman n 22:21:00 Weight 2018-07-07 [facility] Suman n 22:21:00 BMI Calculated 2018-07-07 [facility] sylvia 22:21:00 Weight 2018-07-04 [facility] Suman n 23:42:00 BMI Calculated 2018-07-04 [facility] sylvia 23:42:00 Height 2018-07-04 177.8 cm Memorial Suman n 23:42:00 Heart Rate 2018-07-04 [facility] Suman n 21:05:00 Heart Rate 2018-07-04 Memorial Suman n 21:00:00 Heart Rate 2018-07-04 [facility] Suman n 18:35:00 Procedures Procedure Date / Time Performing Clinician Source Performed CT Head/Neck CTA [id number] 2018-07-21 00:00:00 [facility] Physicians Selective catheter 2018-07-07 17:40:00 [facility] Franko placement, vertebral artery, unilateral, with angiography of the ipsilateral vertebral circulation and all associated radiological supervision and interpretation, includes angiography of the cervicocerebral arch, when performed Plan of Care Planned Activity Planned Date Details Comments Source Future Scheduled Test 2020-08-11 00:00:00 [facility] Seasonal Aug to January (>/= 19 yrs) [code = IMM Influenza Seasonal Aug to January (>/= 19 yrs)] Future Scheduled Test 2008 00:00:00 [facility] malignant neoplasm of colon (procedure) [code = 239578295] Encounters Start End Encounter Admission Attending Care Care Encounter Source Date/Time Date/Time Type Type Clinicians Facility Department ID 2017-10-08 Inpatient C MCSETX MCSETX [id number] Medical 07:14:00 [facility] 2017-08-29 Inpatient MCSETX MED [id number] Medical 13:35:00 [facility] 2017-07-03 Inpatient C MCSETX MCSETX [id number] Medical 15:05:00 [facility] 2020-09-02 2020-09-02 [facility] [id number] 12:23:34 23:59:00 Encounter Liam [place] [id number] [place] [id number] [place] [id number] 2020-09-02 2020-09-02 Telephone [facility] [id number] 00:00:00 00:00:00 Liam Dawson [facility] [id number] Surgical [id number] [facility] [id number] [facility] [place] 2020-08-29 2020-08-29 Telephone [facility] [id number] 00:00:00 00:00:00 [place] MULTISPEC [id number] Manisha PAYAN [id number] [facility] [id number] [facility] 2020-08-27 2020-08-27 Outpatient STLMLC ST[facility] [id number] [facility] 2020-08-23 2020-08-23 Outpatient STLMLC STLMLC [id number] [facility] 2020-01-10 2020-01-10 [facility] [id number] [facility] 15:39:00 15:39:00 [facility] Medicine l Medicine Outpati ent Clinics 2020-01-08 2020-01-08 [facility] [id number] [facility] 14:30:00 14:30:00 t [facility] Medicine l Medicine Outpati ent Clinics 2019-11-19 2019-11-19 [facility] [id number] [facility] 09:51:00 09:51:00 t Urgent Urgent Care L [facility] l Outpati ent Clinics 2019-09-09 2019-09-09 [facility] [id number] 13:40:00 13:40:00 [facility] Medicine Outpati ent Clinics 2019-08-19 2019-08-19 [facility] [id number] 14:30:00 14:30:00 [facility] Medicine Outpati ent Clinics 2019-08-11 2019-08-11 [facility] [id number] 11:44:00 11:44:00 [facility] Medicine Outpati ent Clinics 2019-07-09 2019-07-09 [facility] [id number] [facility] 14:50:00 14:50:00 [facility] Medicine Outpati ent Clinics 2019-07-02 2019-07-02 [facility] [id number] [address] 08:51:00 08:51:00 [facility] Medicine Outpati ent Clinics 2019-06-11 2019-06-11 [facility] [id number] 11:55:00 11:55:00 t [employer] [place] [facility] l Medicine Outpati ent Clinics 2019-06-08 2019-06-08 [facility] [id number] 14:00:00 14:00:00 [facility] Medicine Outpati ent Clinics 2019-06-03 2019-06-03 [facility] [id number] 10:15:00 10:15:00 t [facility] l Medicine Outpati ent Clinics 2019-04-14 2019-04-14 [facility]patient [facility] [id number] 14:30:00 14:30:00 Solitario 00 Dino 2019-03-11 2019-03-11 [facility] [id number] 10:50:00 10:50:00 t [facility] 2019-03-05 2019-03-05 [facility] [id number] 13:30:00 13:30:00 t [facility] 2018-12-23 2018-12-23 Appointmen MADDISON HATHAWAY [id number] Univers 14:00:00 14:00:00 t; CHANDRAKANT HATHAWAY NP ity of [place], [place] CLINICAL RESOURCE NURSE Physici ans 2018-07-21 2018-07-21 Appointmen MADDISON CHOW Neurology [id number] Univers 11:00:00 11:00:00 t; RAJI CHOW it y of ALEXANDRA, M.D. [place] Physici ans 2018-07-04 2018-07-08 Outpatient Dakota [facility] [id number] 13:31:00 17:30:00 Bridgett Burgos 2018-05-23 2018-05-23 Emergency [facility] [id number] [place] 20:46:01 20:46:01 Health 2018-05-23 2018-05-23 Emergency [facility] [id number] [place] 19:26:42 19:26:42 [facility] 2017-08-12 2017-08-12 Outpatient C MCSETX MCSETX [id number] Medical 09:26:00 09:26:00 [facility] 2017-06-13 2017-06-13 Outpatient C MCSETX MCSETX [id number] Medical 14:15:00 14:15:00 [facility] 2017-06-05 2017-06-05 Outpatient C MCSETX MED [id number] Medical 09:33:00 09:33:00 [facility] 2017-03-19 2017-03-19 Outpatient C MCSETX KIKA [id number] Medical 07:13:00 07:13:00 [facility] 2017-02-06 2017-02-06 Outpatient C MCSETX KIKA [id number] Medical 07:43:00 07:43:00 [facility] 2017-01-08 2017-01-08 Outpatient C MCSETX MED [id number] Medical 07:03:00 07:03:00 [facility] Results Test Description Test Time Test Comments Results Result Comments Source CHEM PANEL 2018-07-08 2.3 Memorial Nena nn 08:36:00 CHEM PANEL 2018-07-08 3.8 [facility] Nena nn 08:36:00 CHEM PANEL 2018-07-08 106 [facility] Nena nn 08:36:00 CHEM PANEL 2018-07-08 3.7 [facility] Nena nn 08:36:00 CHEM PANEL 2018-07-08 140 [facility] Nena nn 08:36:00 CHEM PANEL 2018-07-08 0.65 [facility] Nena nn 08:36:00 CHEM PANEL 2018-07-08 108 [facility] Nena nn 08:36:00 CHEM PANEL 2018-07-08 8.1 [facility] Nena nn 08:36:00 CHEM PANEL 2018-07-08 24 [facility] Nena nn 08:36:00 CHEM PANEL 2018-07-08 12 [facility] Nena nn 08:36:00 CHEM PANEL 2018-07-08 116 [facility] Nena nn 08:36:00 CHEM PANEL 2018-07-08 11.7 [facility] Nena nn 08:36:00 HEMATOLOGY 2018-07-08 0.1 [facility] Nena nn 08:36:00 HEMATOLOGY 2018-07-08 0.2 [facility] Nena nn 08:36:00 HEMATOLOGY 2018-07-08 0.5 [facility] Nena nn 08:36:00 HEMATOLOGY 2018-07-08 1.4 [facility] Nena nn 08:36:00 HEMATOLOGY 2018-07-08 4.3 [facility] Nena nn 08:36:00 HEMATOLOGY 2018-07-08 7.7 [facility] Nena nn 08:36:00 HEMATOLOGY 2018-07-08 21.2 [facility] Nena nn 08:36:00 HEMATOLOGY 2018-07-08 2.4 [facility] Nena nn 08:36:00 HEMATOLOGY 2018-07-08 1.3 [facility] Nena nn 08:36:00 HEMATOLOGY 2018-07-08 67.4 [facility] Nena nn 08:36:00 HEMATOLOGY 2018-07-08 41.7 [facility] Nena nn 08:36:00 HEMATOLOGY 2018-07-08 91.7 [facility] Nena nn 08:36:00 HEMATOLOGY 2018-07-08 6.4 [facility] Nena nn 08:36:00 HEMATOLOGY 2018-07-08 35.6 [facility] Nena nn 08:36:00 HEMATOLOGY 2018-07-08 4.54 [facility] Nena nn 08:36:00 HEMATOLOGY 2018-07-08 14.8 [facility] Nena nn 08:36:00 HEMATOLOGY 2018-07-08 8.1 [facility] Nena nn 08:36:00 HEMATOLOGY 2018-07-08 134 [facility] Nena nn 08:36:00 HEMATOLOGY 2018-07-08 13.9 [facility] Nena nn 08:36:00 HEMATOLOGY 2018-07-08 08:36:00 Test Item Value Reference Range Interpretation Comme nts MCH (test code = MCH) 32.6 pg 27.0-31.0 [facility]annPARATHYROID [id number] 08:36:001.08[facility] Franko PARATHYROID [id number] 08:36:001.10[facility] HermannBLOOD BANK RESULTS 2018-07-07 05:01:00Negative (07/07/18 12:01 AM)[facility] HermannCHEM PANEL 2018-07-07 05:01:002.6[facility] HermannCHEM [id number] 05:01:002.2[facility]orial QnuodrxXAZUCYQKOCWD0869-19-67 05:01:0014.0[facility] BiromclDOKMMMSYDIHN0033-61-12 05:01:0097[facility] OufgovaVQQOSNUFBXNI6052-93-73 05:01:004.0[facility] Franko EVWJADYIXIHG0396-04-09 05:01:92095Yafeirms WuodegeFIGZGZTOYNMT6281-39-05 05:01:0017[facility] SonkqblUCSESKUARQVM8695-87-32 05:01:68510Ztegbsjz Franko EPGUOOKNEGXA2857-55-67 05:01:0097[facility]orial KncyzhaGMIUYOWCRYLW5355-67-90 05:01:00 0.82Memorial IqhdaqhNAIIFECUJGHS3778-31-38 05:01:0022[facility] Leary AXZIIOJUOGSL7015-35-79 05:01:008.0[facility]orial XvjghknTLKOXGOPXI7749-09-68 05:01:00 23.2[facility]orial YhgepctGZWXYAMRYF8899-97-45 05:01:0064.9[facility] HermannHEMATOLOGY 2018-07-07 05:01:000.2[facility] FuzqnfaAKRGNWKBYV3836-36-07 05:01:000.1[facility] QtgyausRWBMAUTSWB6228-92-46 05:01:001.3[facility] TxxoubwYDYNIGMRZS8752-12-59 05:01:004.0[facility] KpcwvvtKLTGMXBYEN5799-34-08 05:01:008.0[facility] Franko UMWVUPHMPI9240-36-14 05:01:002.6[facility] OvcydypZARGRPHEWE3959-93-28 05:01:001.4 Memorial TucjveeGFGVNGNBRI2840-35-29 05:01:000.5[facility] HermannHEMATOLOGY 2018-07-07 05:01:20392Pmhpwgdx YkcyefeSOZGQQJPXN8964-74-44 05:01:008.3[facility] HqawhnuDZBFAPEVZT4516-31-27 05:01:0014.2[facility] EaagiuuWQMTKHPIXG9302-96-20 05:01:0093.2[facility] JmzkglyUXSUJTFCCH5868-27-24 05:01:00 Test Item Value Reference Range Interpretation Comments MCH (test code = MCH) 32.3 pg 27.0-31.0 [facility] IutkbzzAVJPHYFMRY2996-24-69 05:01:0014.6[facility] HermannHEMATOLOGY 2018-07-07 05:01:0042.2[facility] DxwgherMAKDGCHKKG3415-92-52 05:01:0034.7[facility]orial EjpxwmsGAXTPQJLJR9731-84-51 05:01:004.53[facility] ZhnfvxyTBTPDKWIQG8487-87-99 05:01:006.1[facility] MsyqfrvCTYOXKNIBV6707-66-77 05:01:00 Test Item Value Reference Range Interpretation Comments PT (test code = PT) 12.3 s 12.0-14.7 [facility] ZpyghnyXWTTHYYTZA7532-70-49 05:01:00 Test Item Value Reference Range Interpretation Comments PTT (test code = PTT) 26.7 s 22.9-35.8 [facility] DsdfbrvQTQPDLALKK3355-27-05 05:01:00 Test Item Value Reference Range Interpretation Comments INR (test code = INR) 0.91 1 0.85-1.17 [facility]mp[facility]yILCDLBGLXI2041-87-14 05:01:003.2[facility]ann[facility] 2018-07-07 05:01:00 Test Item Value Reference Range Interpretation Comments Coag Index (test code = Coag Index) 1.0 1 <=3.0 [facility] HospitalIthodjsCJURDSRLJU2479-93-40 05:01:00 Test Item Value Reference Range Interpretation Comments Max Amp (test code = Max Amp) 55.2 mm 50.0-70.0 [facility] AliceMuttdcsSQQLZRVKYO1463-60-46 05:01:006.2[facility]anoannHEMATOLOGY 2018-07-07 05:01:00 Test Item Value Reference Range Interpretation Comments R-time (test code = R-time) 3.8 min 5.0-10.0 [facility] HospitalJeosrjdBDATMYLJEQ8290-45-78 05:01:00 Test Item Value Reference Range Interpretation Comments K-time (test code = K-time) 1.7 min 1.0-3.0 [facility] HospitalLkmglfsIAEXXHZTJA2892-63-99 05:01:00 Test Item Value Reference Range Interpretation Comments Angle (test code = Angle) 67.9 degrees 53.0-72.0 [facility] HospitalZbfunngDHEDSUPZQI5894-19-57 05:01:00See Note (07/07/18 12:01 AM)[facility] HermannPARATHYROID XHKBTSI0330-87-55 05:01:001.06[facility] HermannPARATHYROID GCUCEKR7864-12-99 05:01:001.07[facility] HermannCHEM OJFCR9025-23-19 20:40:001.9 [facility]annCHEM ESXMF6529-41-56 05:31:002.1[facility] HermannCHEM PANEL 2018-07-06 05:31:002.8[facility] HermannCHEM RILMJ1360-29-03 05:31:00 Test Item Value Reference Range Interpretation Comments A/G Ratio (test code = A/G Ratio) 0.7 1 0.7-1.6 [facility]annCHEM KUUVO5541-65-54 05:31:003.5[facility] HermannCHEM PANEL 2018-07-06 05:31:000.7[facility] HermannCHEM LYQMI5790-77-05 05:31:000.5[facility] HermannCHEM NLYKS7694-61-24 05:31:005.9[facility] HermannCHEM ZFHRC5100-35-63 05:31:0095[facility] HermannCHEM BOEPZ8600-62-77 05:31:002.4[facility] HermannCHEM UNWMO2361-72-68 05:31:53860Lgcamumm HermannCHEM IOIKA0950-42-88 05:31:0087 [facility]annCHEM JLWTT4579-02-79 05:31:000.2[facility] HermannELECTROLYTES 2018-07-06 05:31:0011.7[facility] RkxigztLYITWMKHFNNV6446-62-52 05:31:06274 [facility] WrcdozmDEXQQMDCECBC6964-24-79 05:31:0017[facility] HermannELECTROLYTES 2018-07-06 05:31:000.68[facility] BimmnayHRGZOADQWSRZ6436-55-86 05:31:003.7 [facility] ZoybpmzUIYNGKRXBFUV4197-69-12 05:31:33718Njjuxler HermannELECTROLYTES 2018-07-06 05:31:0025[facility] ClxzstwORWQYEPGXAHH7569-20-10 05:31:25317Uawtukhk DklsdcoZWUSGRDMIIYR3686-31-65 05:31:78539Kuqwjfla UbczbocFLOHJAIEXPIY3423-87-31 05:31:007.8[facility] YfwkugfHJWKEYNBRY7647-19-13 05:31:0013.7[facility] ZSURBGFNKR9174-11-64 05:31:0035.5[facility] PfgzhpsMMFYRGVONQ0784-71-43 05:31:00 127[facility] CtrduiqTXMEKLYUIQ2662-29-09 05:31:008.2[facility] HermannHEMATOLOGY 2018-07-06 05:31:006.3[facility] CnnbfesTTQRMDZUBE6515-27-94 05:31:004.61[facility] QyjpswbYZCVUYNTIY6562-47-42 05:31:0014.9[facility] AhojcqyUJUKOUKYMW0839-23-73 05:31:0042.1[facility] YcxsgjlDHFTFNSHUM4232-56-69 05:31:0091.2[facility] XKJMSRMGIH7358-27-60 05:31:00 Test Item Value Reference Range Interpretation Comments MCH (test code = MCH) 32.4 pg 27.0-31.0 [facility] TbpqmpvHFTWAJCZMA9832-65-30 05:31:001.2[facility] HermannHEMATOLOGY 2018-07-06 05:31:000.6[facility] MnstjacVBUUNBHDIL4590-85-80 05:31:000.2[facility] PltllypFEJCUEBZQZ1657-70-37 05:31:000.1[facility] HswxypiUWOFHSCIQA1567-99-46 05:31:002.4[facility] IicdceqADNKWMCJYX9429-74-56 05:31:004.3[facility] HPJXPDLXRJ1489-10-38 05:31:001.0[facility] JrbbkctCGIFPLKWJE4629-50-02 05:31:00 68.6[facility] IcfntykBWMEMRUBED4653-09-52 05:31:0018.8[facility] HermannHEMATOLOGY 2018-07-06 05:31:009.2[facility] HermannPARATHYROID KTWANTE6925-22-38 05:31:001.10 [facility] HermannPARATHYROID XCJGJRD6547-98-06 05:31:001.10[facility] HermannLIPIDS 2018-07-04 20:41:0076[facility] NgdkbctVLKJDE2534-25-15 20:41:00 Test Item Value Reference Range Interpretation Comments VLDL (test code = VLDL) 25 1 [facility] QmvjmxcXNYWGD8347-48-52 20:41:65372Lfaistll KemmbqeMLPOEW6637-57-08 20:41:0052[facility] LqcuikdPWRXRH3787-21-51 20:41:06396Fiynshaf HermannLIPIDS 2018-07-04 20:41:00 Test Item Value Reference Range Interpretation Comments CHD Risk (test code = CHD Risk) 2.94 1 4.00-7.30 [facility]annSPECIAL MPYAWMFOZ3822-09-82 20:41:005.0[facility] HermannCHEM XKXPD5017-72-12 20:40:000.2[facility] HermannCHEM UBPHX6847-55-16 20:40:61227 [facility]annCHEM NNIWS3836-03-44 20:40:003.8[facility] HermannCHEM PANEL 2018-07-04 20:40:000.9[facility] HermannCHEM HRCXE0656-22-74 20:40:00 Test Item Value Reference Range Interpretation Comments A/G Ratio (test code = A/G Ratio) 0.7 1 0.7-1.6 [facility]annCHEM RGJUJ7162-91-88 20:40:13225Xdlnwrbz HermannCHEM PANEL 2018-07-04 20:40:006.5[facility] HermannCHEM BTCPT1532-86-88 20:40:002.7[facility] HermannCHEM EVJGT8271-31-96 20:40:34273Iqhdmboc HermannCHEM DXQDD0131-73-41 20:40:00 Test Item Value Reference Range Interpretation Comments B/C Ratio (test code = B/C Ratio) 18 1 6-25 [facility] HermannDRUG ZVIYWQ4086-08-87 20:28:00Negative *NA*(07/04/18 3:28 PM) [facility]annDRUG EXWLJD0742-52-14 20:28:00Negative *NA*(07/04/18 3:28 PM) [facility]annDR[facility] LROAJM5806-20-62 20:28:00Negative *NA*(07/04/18 3:28 PM) [facility]annDR[facility] VIRIXN8613-94-81 20:28:00Negative *NA*(07/04/18 3:28 PM) [facility]annDR[facility] QRCWMZ0973-10-87 20:28:00Negative *NA*(07/04/18 3:28 PM) [facility]annDR[facility] PFTNDR1274-94-19 20:28:00Negative *NA*(07/04/18 3:28 PM) [facility]annDR[facility] HDAYAF3781-90-15 20:28:00See Note (07/04/18 3:28 PM)[facility] HermannDRUG NIUUOL9273-00-45 20:28:00Negative *NA*(07/04/18 3:28 PM)[facility]annURINE AND KRDJH9998-81-78 20:28:00None Seen (07/04/18 3:28 PM)[facility]annUR[facility] AND SAQOQ5719-04-78 20:28:00None Seen (07/04/18 3:28 PM)[facility] AND ETRIL7518-32-19 20:28:00None Seen (07/04/18 3:28 PM)[facility] AND UFZCD7142-55-75 20:28:00None Seen (07/04/18 3:28 PM)[facility] AND FTOXC5736-11-03 20:28:00Negative *NA*(07/04/18 3:28 PM)[facility] AND FWYGK3482-01-38 20:28:00Negative *NA*(07/04/18 3:28 PM)[facility]annUR[facility] AND QDRDJ1760-34-09 20:28:00 Test Item Value Reference Range Interpretation Comments UA Spec Grav (test code = UA Spec 1.025 1 Grav) [facility]UR[facility] AND EVHVN9391-34-82 20:28:00Clear (07/04/18 3:28 PM) [facility] GGKLO3532-46-27 20:28:001.0[facility]annUR[facility] AND NAMBQ5316-45-58 20:28:00Negative (07/04/18 3:28 PM)[facility]annUR[facility] AND IQQYD6968-30-08 20:28:00 Test Item Value Reference Range Interpretation Comments UA pH (test code = UA pH) 6.0 1 5.0-8.0 [facility] AWSZA6402-77-58 20:28:00Negative (07/04/18 3:28 PM) [facility] JREGM0413-05-23 20:28:00Negative (07/04/18 3:28 PM) [facility] BFEZR3609-92-82 20:28:00Moderate *ABN*(07/04/18 3:28 PM)[facility]annUR[facility] AND RSKHH7253-25-42 20:28:00Yellow *NA*(07/04/18 3:28 PM)[facility] HermannCHEM NBDMF4036-26-56 19:44:000.7[facility] HermannCARDIAC MUNXYWT2807-02-17 19:29:00<0.02[facility] HermannCARDIAC YCRPVWI1413-62-85 19:29:0086[facility] KoxrymaJEOZTXDJIU6935-50-48 19:29:00 Test Item Value Reference Range Interpretation Comments Tot Cell Ct (test code = Tot Cell Ct) 100 1 [facility] BwenzdmQDFGMYIJUM8368-77-29 19:29:00Normal (07/04/18 2:29 PM)[facility] KkkgjcvPHUWEWGNYE0242-03-47 19:29:00Normal (07/04/18 2:29 PM)[facility] JFZKECJWAE6491-92-94 19:29:000.0[facility] ExbjrxvPKOTIYWXNL9155-76-80 19:29:000.0 [facility] WsnbkehGBYWJYZFVS5612-35-32 19:29:00 Test Item Value Reference Range Interpretation Comments PTT (test code = PTT) 20.4 s 22.9-35.8 [facility] PtrphncIBLBPXTANH9990-46-54 19:29:00 Test Item Value Reference Range Interpretation Comments INR (test code = INR) 0.93 1 0.85-1.17 [facility] XfbtrgdYLQKVGQRKE3140-90-94 19:29:00 Test Item Value Reference Range Interpretation Comments PT (test code = PT) 12.5 s 12.0-14.7 [facility] W/FIIRVBM4584-91-94 14:43:00ULTRASOUND DIRECTED PARACENTESIS:CLINICAL HISTORY: Ascites. Cirrhosis.Written and verbal consent were obtained. Following ultrasoundlocalization of an appropriate area within the right lower quadrant ofthe abdomen, using aseptic technique, and following local anesthesiawith 4 mL of 1% Xylocaine, a puncture was made into the peritoneal spacewith a one-step needle. 4 L of fluid was drained. Patient toleratedprocedure well without event.IMPRESSION:1. Ultrasound directed paracentesis with removal of 4 Lof fluid.US ABDOMEN XYJVMMS-XICTT9274-35-26 14:41:12ULTRASOUND ABDOMEN LIMITED:CLINICAL HISTORY: Ascites. Images were obtained over a quadrants of the abdomen for evaluation forascites volume. There is a moderate to large volume ascites.IMPRESSION:1. Moderate volume ascites.SP ABD PARCENTESIS W/YIKICOK5569-63-14 12:25:33Information: AscitesUltrasound guided paracentesisFollowing verbal and written consent and utilizingultrasound guidancethe right lateral abdominal wall was sterilely prepped and draped andthe plane ofneedle entry injected with 5 mL of Xylocaine [...] stable andsatisfactory conditionIMPRESSION:1. Ultrasound-guided paracentesis as described above.SP ABD PARCENTESIS W/PPQQVAN2963-27-73 11:52:16Information: CirrhosisShunt paracentesisFollowing verbal and written consent and utilizing ultrasound guidancethe left lateral abdominal wall was sterilely prepped and draped and theplane of needle entry injected with 5 mL of Xylocaine 1% localanesthesia 1 mL of sodium bicarbonate solution.Following asmall skin incision with a #11 blade a one-step catheter waspassed into the peritoneal cavity and approximately 5 L of serous-typefluid aspirated. No significant amount of fluid is noted on thepostparacentesis images. The patient tolerated the procedure well andleft the ultrasound suite in stable and satisfactory condition.IMPRESSION:1. Ultrasound-guided paracentesis as described above.US MICHAELLKassie ART FLOW, ABD/PELV [id number] 11:44:42EXAM: Abdominal Sonography with Hepatic Elastography.TECHNIQUE: Serial multiplanar grayscale imagingwith/without Dopplerinterrogation including color flow imaging and Doppler waveformanalysis. Hepaticelastography measurements were made utilizing [employer] Epiq 7 ultrasound unit (C5-1 multifrequency transducer).HISTORY: Cirrhosis..COMPARISON: None.FINDINGS: Liver: The liver demonstrates heterogeneousechotexture with lobulatedcontours. The liver measures 18.1 cm [...] < 13 mm).* The hepatic median stiffness value = 1.75 m/s.* Number of stiffness measurements = 12.* IQR/Median = 0.12 (Measurement of quality of statistical data set =/<0.3).Spleen: The spleen demonstrates no evidence of mass. The splenic indexis 2264 cc (normal = 120-480 cc). Splenic volume is 1343 ml (normal =110 - 340 ml). Splenic weight is 1410 gm (normal = 115 - 360 g m).Pancreas: The pancreatic head and body are imaged [...] Small amount visualized post paracentesis.IMPRESSION:1. Liver fibrosis stage = F2 - F3, mild to moderate.2. Sonographic/Doppler evidence of portal vein hypertension.3. The spleen is approximately 4 times the upper limits of normal forsize.4. Mild hepatomegaly.5. Contracted gallbladder with cholelithiasis. No evidenceof biliarytract dilatation. Liver Fibrosis Staging: Metavir ScoreStage Range m/s Range kPa DescriptorF = 0 0.81 - 1.22 2.0 - 4.5 NormalF0 - F1 1.22 - 1.37 4.5 - 5.7 Normal - MildF2 - F3 1.37 - 2.00 5.7 - 12.0 Mild - ModerateF3 - F4 2.00 - 21.0+ 12.0 - 2.64+ Moderate - SevereUS ABDOMEN [id number] 11:19:24EXAM: Abdominal Sonography with Hepatic Elastography.TECHNIQUE: Serial multiplanar grayscale imagingwith/without Dopplerinterrogation including color flow imaging and Doppler waveformanalysis. Hepaticelastography measurements were made utilizing [employer] 7 ultrasound unit (C5-1 multifrequency tr ansducer).HISTORY: Cirrhosis..COMPARISON: None.FINDINGS: Liver: The liver demonstrates heterogeneousechotexture with lobulatedcontours. The liver measures 18.1 cm [...] < 13 mm).* The hepatic median stiffness value = 1.75 m/s.* Number of stiffness measurements = 12.* IQR/Median = 0.12 (Measurement of quality of statistical data set =/<0.3).Spleen: The spleen demonstrates no evidence of mass. The splenic indexis 2264 cc (normal = 120-480 cc). Splenic volume is 1343 ml (normal =110 - 340 ml). Splenic weight is 1410 gm (normal = 115 - 360 gm).Pancreas: The pancreatic head and [...] Small amount visualized post paracentesis.IMPRESSION:1. Liver fibrosis stage = F2 - F3, mild to moderate.2. Sonographic/Doppler evidence of portal vein hypertension.3. The spleen is approximately 4 times the upper limits of normal forsize.4. Mild hepatomegaly.5. Contracted gallbladder with cholelithiasis. No evidenceof biliarytract dilatation. Liver Fibrosis Staging: Metavir ScoreStage Range m/s Range kPa DescriptorF = 0 0.81 - 1.22 2.0 - 4.5 NormalF0 - F1 1.22 - 1.37 4.5 - 5.7 Normal - MildF2 - F3 1.37 - 2.00 5.7 - 12.0 Mild - ModerateF3 - F4 2.00 - 21.0+ 12.0 - 2.64+ Moderate - SevereSP ABD PARCENTESIS W/IMAGING 2017-01-08 10:03:19Information: AscitesUltrasound guided paracentesisFollowing verbal and written consent and utilizingultrasound guidancethe right lateral abdominal wall was sterilely prepped and draped andthe plane ofneedle entry injected with 5 mL of Xylocaine 1% localanesthesia 1 mL of sodium bicarbonate solution.Following a small skin incision with a #11 blade a one-step catheter waspassed into the peritoneal cavity and 5.5 L of serous-type fluidaspirated. No significant amount of fluid noted on the postparacentesisimages.The patient tolerated the procedure well and left the ultrasound suitein stable and satisf actory conditionIMPRESSION:1. Ultrasound-guided paracentesis.
--- OUTSIDE RECORDS SUMMARY | 2020-09-05 09:31 | XMS REPORT | Summary of Care ---
:1960 Author Organization [facility] Address [address] [place] [id number] Care Team Providers Name Role Phone Nito Hamilton Primary Care Provider Jeffery Mendez RN Unavailable Unavailable Eunice Espinoza ([employer] Operator) [phone] Reason for Referral MRI/CAT Scan (Routine) Status Reason Specialty Diagnoses / Procedures Referred By Orion eferred To Contact Contact Closed Diagnostic Diagnoses Cerebrovascular accident (CVA), unspecified mechanism Carotid stenosis, bilateral Arterial occlusive disease Essential hypertension Hepatic cirrhosis, unspecified hepatic cirrhosis type, unspecified whether ascites present Shawna Gaffney, Radiology Hyperlipidemia, unspecified hyperlipidemia type Left-sided weakness Cerebrovascular accident (CVA), unspecified mechanism PA-Ute Procedures MR BRAIN WO CONTRAST CHG MRI BRAIN MR BRAIN WO CONTRAST [address] [place] [address] Reason for Visit Auth/Cert Status Reason Specialty Diagnoses / Procedures Referred By Ute ontact Referred To Contact Phlebotomy Adc Pob Lab Dr sabine Wilson O [facility] [address] [facility] [address], [address] [place] [address] Phone: Fax: Encounter Details Date Type Department Care Team Description 06/14/2020 Hospital Encounter [facility] Shawna Gaffney PA-C Arrived [facility] [address] [place] [address] [place] [address] [phone] Allergies No Known Allergiesdocumented as of this encounter (statuses as of 06/15/2020) Medications Medication Sig Dispensed Refills Start Date End Date Status lactulose (CEPHULAC) 10 Take 30 mL by 1 Bottle 11 10/22/2016 Active gram/15 mL mouth 2 (two) solutionIndications: times daily. Decompensated HCV cirrhosis furosemide 40 mg Take 1 tablet by 90 tablet 1 11/27/2016 Active tabletIndications: mouth daily. Decompensated HCV cirrhosis Additional Information Patient taking differently: 40 mg Oral QAM+PM, Reported on 11/27/2016 8:42 PM spironolactone 100 mg Take 1 tablet by 90 tablet 1 11/27/2016 Active tabletIndications: Decompensated mouth daily. HCV cirrhosis amLODIPine 5 mg Take 1 tablet by 90 tablet 1 11/27/2016 Active tabletIndications: Essential mouth daily. hypertension ondansetron 4 mg disintegrating Take 1 tablet by 10 tablet 0 0 04/15/2018 Active tablet mouth every 8 (eight) hours as needed for Nausea and Vomiting (N/V). proMETHazine 25 mg tablet Take 1 tablet by 12 tablet 0 018 Active mouth every 6 (six) hours as needed for Nausea and Vomiting (N/V). clopidogrel (PLAVIX) 75 mg Take 75 mg by mouth 0 Active tablet daily. atorvastatin 40 mg tablet Take 40 mg by mouth 0 Active at bedtime. aspirin 81 mg chewable tablet Take 81 mg by mouth 0 Active daily. Hominy-3 Fatty Acids (FISH OIL Take by mouth. 0 Active CONCENTRATE) 1,000 mg Cap lisinopril 10 mg tablet Take 4 tablets by 0 10/05/20 19 Active mouth daily. 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) 09/01/2016 Elevated liver enzymes 01/27/2016 CVA (cerebral infarction) 01/27/2016 HTN (hypertension) 01/27/2016 HLD (hyperlipidemia) 01/27/2016 documented as of this encounter (statuses as of 06/15/2020) Social History Tobacco Use Types Packs/Day Years Used Date Never Smoker Cigarettes 1 Smokeless Tobacco: Never Used Comments: Has smoked since 2000 Alcohol Use Drinks/Week oz/Week Comments Not Currently 0 Standard drinks or equivalent 0.0 Sober since 2018 Sex Assigned at Date Recorded Not on file COVID-19 Exposure Response Date Recorded In the last month, have you been in contact with No / Unsure 05/17/2020 11:47 AM CDT someone who was confirmed or suspected to have Coronavirus / COVID-19? documented as of this encounter Last Filed Vital Signs Not on filedocumented in this encounter Plan of Treatment Health Maintenance Due Date Last Done Comments PNEUMOCOCCAL 0-64 YEARS COMBINED SERIES (1 of 1 - 1964 PPSV23) DTaP,Tdap,and Td Vaccines (1 - Tdap) 1977 COLON CANCER SCREENING ANNUAL FIT/FOBT 2008 COLON CANCER SCREENING FIT DNA EVERY 3 YEARS 2008 COLON CANCER SCREENING SIGMOIDOSCOPY EVERY 5 YEARS 2008 COLONOSCOPY 2008 Colorectal Cancer Screening 2008 Zoster Recombinant Vaccine (SHINGRIX) (1 of 2) 2008 INFLUENZA VACCINE (#1) 2020 Depression Screening 10/16/2020 10/16/2019 HEPATITIS C (HCV) SCREEN Completed 05/12/2020 documented as of this encounter Procedures Procedure Name Priority Date/Time Associated Diagnosis Comme nts MR BRAIN WO Routine 06/14/2020 1:50 Cerebrovascular Results for this CONTRAST PM CDT accident (CVA), procedure ar e in unspecified [facility] anism the results Carotid stenosis, section. bilateral Arterial occlusive disease Essential hypert ension Hepatic cirrhosis, unspecified hepatic cirrhosis type, unspecified whether ascites present Hyperlipidemia, unspecified hyperlipidemia t ype Left-sided weakness documented in this encounter Results MR BRAIN WO CONTRAST (06/14/2020 1:50 PM CDT) Specimen Impressions Performed At PACS/VR/DOSE No acute intracranial abnormality. Moderate global cerebral volume loss. Mu ltifocal chronic infarcts and lacunar infarcts, as above. Narrative Performed At EXAM: MR BRAIN WO CONTRAST PACS/VR/DOSE HISTORY: Stroke, follow up TECHNIQUE: MRI of the brain was performed on 1.5 Carolyne without intravenous contrast. COMPARISON: None. FINDINGS: The ventricles and sulci are prominent s uggestive of moderate degree of global cerebral volume loss. No hydrocep halus. The basal cisterns are within normal limits. There is no diffusion restriction sugges t acute/subacute infarction. No intracranial hemorrhage, extra-axial col lection, mass effect, midline shift, or herniation. No abnormal signal Blooming on gradient sequences. Multifocal chronic infarcts are noted in the bilateral superior frontal lobes, bilateral posterior parietal lobe s and bilateral occipital lobes. Remote lacunar infarcts are noted in the arthur and bila teral basal ganglia. The T2 signal void of intracranial vesse ls is within normal limits. No abnormal signal in the paranasal sinu ses or mastoid air cells. Procedure Note [facility], Radiant Results Inft User - 2019 2:18 PM CDT EXAM: MR BRAIN WO CONTRAST HISTORY: Stroke, follow up TECHNIQUE: MRI of the brain was performe d on 1.5 Carolyne without intravenous contrast. COMPARISON: None. FINDINGS: The ventricles and sulci are prominent s uggestive of moderate degree of global cerebral volume loss. No hydrocep halus. The basal cisterns are within normal limits. There is no diffusion restriction sugges t acute/subacute infarction. No intracranial hemorrhage, extra-axial col lection, mass effect, midline shift, or herniation. No abnormal signal Blooming on gradient sequences. Multifocal chronic infarcts are noted in the bilateral superior frontal lobes, bilateral posterior parietal lobe s and bilateral occipital lobes. Remote lacunar infarcts are noted in the arthur and bilateral basal ganglia. The T2 signal void of intracranial vesse ls is within normal limits. No abnormal signal in the paranasal sinu ses or mastoid air cells. IMPRESSION No acute intracranial abnormality. Moderate global cerebral volume loss. Mu ltifocal chronic infarcts and lacunar infarcts, as above. Performing Organization Address City/State/Zipcode Phone Number PACS/VR/DOSE documented in this encounter Visit Diagnoses Diagnosis Cerebrovascular accident (CVA), unspecif ied mechanism Carotid stenosis, bilateral Occlusion and stenosis of multiple and b ilateral precerebral arteries without mention of cerebral infarction Arterial occlusive disease Embolism and thrombosis of unspecified a rtery Essential hypertension Unspecified essential hypertension Hepatic cirrhosis, unspecified hepatic c irrhosis type, unspecified whether ascites present Hyperlipidemia, unspecified hyperlipidem ia type Left-sided weakness Muscle weakness (generalized) documented in this encounter Insurance Payer Benefit Plan / Subscriber ID Effective Phone Address T ype Group Dates [employer] [id number] 2019-Prese [address] [place] [id number] [place] [address] ([place]) [place] [address] documented as of this encounter
--- OUTSIDE RECORDS SUMMARY | 2020-09-05 09:31 | XMS REPORT | Summary of Care ---
:1960 Author Organization [facility] Address [address] [place] [address] Care Team Providers Name Role Phone Joy Nito Unger Primary Care Provider Jeffrey Mendez RN Unavailable Unavailable Eunice Espinoza (Physicians Fiberglass Technician) [phone] Reason for Visit Reason Comments LAB WORK Auth/Cert Status Reason Specialty Diagnoses / Procedures Referred By Ute arvizu Referred To Contact Phlebotomy Adc Pob Lab Dr regalado Professional O ice [address] , [address] [place] [address] Phone: Fax: Encounter Details Date Type Department Care Team Description 06/14/2020 Dressage Judge Visit [place] James Mcgarry MD [address] [facility] [address] [place] [address] Pre-transplant Professional Office Pob, Adc Lab Main evaluation for Building Phlebotomy chronic liver Lab disease Professional Office Building [address] [facility] , [address] [place] [address] Allergies No Known Allergiesdocumented as of this encounter (statuses as of 06/14/2020) Medications Medication Sig Dispensed Refills Start Date [...] 81 mg by mouth 0 Active daily. [place]-3 Fatty Acids (FISH OIL Take by mouth. 0 Active CONCENTRATE) 1,000 mg Cap lisinopril 10 mg tablet Take 4 tablets by 0 10/05/20 19 Active mouth daily. 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 Collection information/ total volume were documented accordingly. The following specimens were sent [facility] laboratoriesper lab order on : 24 hour urine 1 Random urine Stool Swab Other documented in this encounter Miscellaneous Notes Addendum Note - Michaela Mcneal - 06/14/2020 3:15 PM CDT Addended by: MICHAELA MCNEAL on: 06/14/2020 04:30 PM Modules accepted: Orders documented in this encounter Plan of Treatment Name Type Priority Associated Diagnoses Date/Ti me MAGNESIUM URINE LAB Routine Pre-transplant evaluation 06/14/2020 2:00 PM CDT for chronic liver disease CREATININE CLEARANCE LAB Routine Pre-transplant evalu ation 06/14/2020 2:00 PM CDT for chronic liver disease PROTEIN QUANT U/24H LAB Routine Pre-transplant evalua tion 06/14/2020 2:00 PM CDT for chronic liver disease Name Type Priority Associated Diagnoses Order S chedule CREATININE LAB Routine Pre-transplant evaluation fo r Expected: 06/14/2020, chronic liver disease s: 06/14/2021 Health Maintenance Due Date Last Done Comments [...] Completed 05/12/2020 documented as of this encounter Results Not on filedocumented in this encounter Visit Diagnoses Diagnosis Pre-transplant evaluation for chronic li malissa disease Other specified pre-operative examinatio n documented in this encounter Insurance Payer Benefit Plan / Subscriber ID Effective Phone Address T ype Group Dates [employer] [id number] 2019-Andree [place] [address] [place] [address] ([place]) [place] [address] documented as of this encounter
--- OUTSIDE RECORDS SUMMARY | 2020-09-05 09:31 | XMS REPORT | Summary of Care ---
:1960 Author Organization [facility] Address [address] [place] [address] Care Team Providers Name Role Phone Joy Nito Unger Primary Care Provider Jeffrey Mendez RN Unavailable Unavailable Eunice Espinoza (Physicians Credit Verifier) [phone] Reason for Visit Reason Comments LAB WORK Auth/Cert Status Reason Specialty Diagnoses / Procedures Referred By Ute arvizu Referred To Contact Phlebotomy Adc Pob Lab Dr regalado Professional O ice [address] , [address] [place] [address] Phone: Fax: Encounter Details Date Type Department Care Team Description 06/14/2020 Reference Investigator Visit [facility] James Mcgarry MD [address] [facility] [address] [place] [address] Pre-transplant Professional Office Pob, Adc Lab Main evaluation for Building Phlebotomy chronic liver Lab disease Professional Office Building [address] [facility] , [address] [place] [address] Allergies No Known Allergiesdocumented as [...] 81 mg by mouth 0 Active daily. [place]-3 Fatty Acids (FISH OIL Take by mouth. [...] accordingly. The following specimens were sent to [facility] laboratoriesper lab order on : 24 hour urine 1 Random urine Stool Swab Other documented in this encounter Plan of Treatment Name Type Priority Associated Diagnoses Date/Ti me MAGNESIUM URINE LAB Routine Pre-transplant evaluation 06/14/2020 2:00 PM CDT for chronic liver disease CREATININE CLEARANCE LAB Routine Pre-transplant evalu ation 06/14/2020 2:00 PM CDT for chronic liver disease PROTEIN QUANT U/24H LAB Routine Pre-transplant evalua tion 06/14/2020 2:00 PM CDT for chronic liver disease Health Maintenance Due Date Last Done Comments [...] ype Group Dates [employer] [id number] 2019-Prese [address] Medicaid [facility] [place] [address] [place] [address] (Home) [place] [address] documented as of this encounter
--- OUTSIDE RECORDS SUMMARY | 2020-09-05 09:31 | XMS REPORT | Summary of Care ---
:1960 Author Organization [facility] Address [address] [place] [address] Care Team Providers Name Role Phone Nito Hamilton Primary Care Provider Eunice Espinoza (Physicians Director Oncology) [phone] Reason for Visit Reason Comments Results Encounter Details Date Type Department Care Team Description 06/20/2020 Telephone [facility] Interventional Shawna Wells PA-C Results Radiology [address] [place] [address] [place], [place] [address] Allergies No Known Allergiesdocumented as of this encounter (statuses as of 06/20/2020) Medications Medication Sig Dispensed Refills Start Date [...] 81 mg by mouth 0 Active daily. [place]-3 Fatty Acids (FISH OIL Take by mouth. 0 Active CONCENTRATE) 1,000 mg Cap lisinopril 10 mg tablet Take 4 tablets by 0 10/05/20 19 Active mouth daily. 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) 09/01/2016 Elevated liver enzymes 01/27/2016 CVA (cerebral infarction) 01/27/2016 HTN (hypertension) 01/27/2016 HLD (hyperlipidemia) 01/27/2016 documented as of this encounter (statuses as of 06/20/2020) Social History Tobacco Use Types Packs/Day Years Used Date Never Smoker Cigarettes 1 Smokeless Tobacco: Never Used Comments: Has smoked since 2000 Alcohol Use Drinks/Week oz/Week Comments Not Currently 0 Standard drinks or equivalent 0.0 Sober since 2018 Sex Assigned at Date Recorded Not on file documented as of this encounter Last Filed Vital Signs Not on filedocumented in this encounter Miscellaneous Notes Telephone Encounter - Shawna Gaffney PA-C - 06/20/2020 5:21 PM CDT NeuroEndovascular service Call to patient- He is frustrated as he needs knee surgery due to severe pain and limitations. Advised, unfortunately with COVID, it delayed many tests etc. He had many tests recently ordered/drawn; however didn't include our labs. A1C, fasting lipid-- advised worse case scenario he can get done at lab prior to office visit; however we need echocardiogram- Noted cardiology also ordered same (more detailed) Need to get same scheduled and then can bring to clinic to hopefully tie up and give clearance. He appreciated and agreed with plan. Provided my contact information for direct contact, again. documented in this encounter Plan of Treatment [...] ype Group Dates [employer] [id number] 2019-Andree [place] [address] [place] [address] documented as of this encounter
--- OUTSIDE RECORDS SUMMARY | 2020-09-05 09:31 | XMS REPORT | Summary of Care ---
:1960 Author Organization [facility] Address [address] [place] [address] Care Team Providers Name Role Phone Nito Hamilton Primary Care Provider Eunice Espinoza (Physicians Grain Shoveler) [phone] Reason for Visit Reason Comments Results Encounter Details Date Type Department Care Team Description 06/20/[address] [facility] Interventional Shawna Wells PA-C Results Radiology [address] [place] [address] [place], [place] [address] Allergies No Known Allergiesdocumented as of this [...] 81 mg by mouth 0 Active daily. [place]-3 Fatty Acids (FISH OIL Take by mouth. [...] Encounter - Shawna Gaffney PA-C - 06/20/2020 11:37 AM CDT NeuroEndovascular Service Call to patient- Left message for call back. Would like to discuss CTA H/N, MRI results Still need labs, and echocardiogram- then can schedule f/u clinic appointment Left my contact information documented in this encounter Plan of Treatment [...] ype Group Dates [employer] [id number] 2019-[address] [place] [address] [place] [address] documented as of this encounter
--- OUTSIDE RECORDS SUMMARY | 2020-09-05 09:31 | XMS REPORT | Summary of Care ---
:1960 Author Organization [facility] Address [address] [place] [address] Care Team Providers Name Role Phone Nito Hamilton Primary Care Provider Jeffrey Mendez RN Unavailable Unavailable Eunice Espinoza (Physicians Shipping Assistant) [phone] Reason for Referral MRI/CAT Scan (Routine) Status Reason Specialty Diagnoses / Procedures Referred By Orion eferred To Contact Contact Closed Diagnostic Diagnoses Cerebrovascular accident (CVA), unspecified mechanism Carotid stenosis, bilateral Arterial occlusive disease Essential hypertension Hepatic cirrhosis, unspecified hepatic cirrhosis type, unspecified whether ascites present Shawna Gaffney, Radiology Hyperlipidemia, unspecified hyperlipidemia type Left-sided weakness Cerebrovascular accident (CVA), unspecified mechanism PA-Ute Procedures CT ANGIOGRAM NECK CHG CT ANGIO,NECK COMBO,INCL IMAGE PROCESS - CT ANGIOGRAM NECK 2660 [place] [address] Reason for Visit Auth/Cert Status Reason Specialty Diagnoses / Procedures Referred By C ontact Referred To Contact Phlebotomy Adc Pob Lab Dr regalado Professional O [address] amanda Kelly, [address] [place] [address] Phone: Fax: Encounter Details Date Type Department Care Team Description 06/14/2020 Hospital Encounter [facility] Shawna Gaffney PA-Ute Arrived [place] Computed 26[address] [facility] [address] [facility] [place] [address] [facility] [address] [phone] Allergies No Known Allergiesdocumented as of this [...] 81 mg by mouth 0 Active daily. [place]-3 Fatty Acids (FISH OIL Take by mouth. [...] Name Priority Date/Time Associated Diagnosis Comme nts CT ANGIOGRAM NECK Routine 06/14/2020 3:59 Cerebrovascular Res ults for this PM CDT accident (CVA), procedure ar e in unspecified [facility] the results Carotid stenosis, section. bilateral Arterial occlusive disease Essential hypert ension Hepatic cirrhosis, unspecified hepatic cirrhosis type, unspecified whether ascites present Hyperlipidemia, unspecified hyperlipidemia t ype Left-sided weakness documented in this encounter Results CT ANGIOGRAM NECK (06/14/2020 3:59 PM CDT) Specimen Impressions Performed At PACS/VR/DOSE No acute vascular findings in the head a nd neck. Specifically, no large vessel occlusion is seen. Moderate atherosclerotic disease identif ied in the intracranial ICAs bilaterally. This is borderline for flow limitation in the right proximal cavernous and left supraclinoid ICA salena on. Mild scattered atherosclerotic disease i s seen in the remaining head and neck vessels. Narrative Performed At HISTORY:Stroke, follow up PACS/VR/DOSE TECHNIQUE: CTA of the head and neck was performed with IV contrast. MIP reconstructions were performed. COMPARISON: MRI 06/14/2020. FINDINGS: CTA NECK: The left vertebral artery originates fro m the aortic arch directly. The vessels originating from the arch are pa tent. There is normal contrast enhancement of the common car otid arteries. Mild atherosclerotic disease is seen in the l eft carotid bifurcation without significant stenosis. Tortuosity in the right distal cervical ICA is incidentally noted. The vessel is otherwise patent. The right vertebral artery is smaller in size and appe ars to be duplicated. The vertebral arteries are otherwise pat ent. The vertebral arteries demonstrate late entry into the vascular foramen. CTA HEAD: Moderate diffuse atherosclerotic disease is seen in the cavernous and supraclinoid ICAs bilaterally. The steno sis of the vessel is most conspicuous in the left paraclinoid ICA and the right proximal cavernous ICA. At these points the stenosis is close to 50% and borderline for flow limitation. The DIOMEDES and MCA branches are within norm al limits. No sizable posterior communicating arteries are seen. Venous contamination limits evaluation for subtle vascular fi ndings. The basilar artery is within normal limi ts. The PICA origins are seen bilaterally. Procedure Note [facility], Radiant Results Inft User - 2019 4:11 PM CDT HISTORY:Stroke, follow up TECHNIQUE: CTA of the head and neck was performed with IV contrast. MIP reconstructions were performed. COMPARISON: MRI 06/14/2020. FINDINGS: CTA NECK: The left vertebral artery originates fro m the aortic arch directly. The vessels originating from the arch are pa tent. There is normal contrast enhancement of the common carotid arteries. Mild atherosclerotic disease is seen in the l eft carotid bifurcation without significant stenosis. Tortuosity in the right distal cervical ICA is incidentally noted. The vessel is otherwise patent. The right vertebral artery is smaller in size and appears to be duplicated. The vertebral arteries are otherwise pat ent. The vertebral arteries demonstrate late entry into the vascular foramen. CTA HEAD: Moderate diffuse atherosclerotic disease is seen in the cavernous and supraclinoid ICAs bilaterally. The steno sis of the vessel is most conspicuous in the left paraclinoid ICA and the right proximal cavernous ICA. At these points the stenosis is chelsea se to 50% and borderline for flow limitation. The DIOMEDES and MCA branches are within norm al limits. No sizable posterior communicating arter ies are seen. Venous contamination limits evaluation for subtle vascular fi ndings. The basilar artery is within normal limi ts. The PICA origins are seen bilaterally. IMPRESSION No acute vascular findings in the head a nd neck. Specifically, no large vessel occlusion is seen. Moderate atherosclerotic disease identif ied in the intracranial ICAs bilaterally. This is borderline for flow limitation in the right proximal cavernous and left supraclinoid ICA salena on. Mild scattered atherosclerotic disease i s seen in the remaining head and neck vessels. Performing Organization Address City/State/Zipcode Phone Number PACS/VR/DOSE [...] Muscle weakness (generalized) documented in this encounter Administered Medications Medication Order MAR Action Action Date Dose Rate Site contrast previously administered 0 Given 06/14/2020 1:48 PM CDT mL Intravenous, ONCE, 1 dose, 06/14/20 at 1615, Routine documented in this encounter Insurance Payer Benefit Plan / Subscriber ID Effective Phone Address T ype Group Dates [employer] [id number] 2019-[facility] [address] [place] [address] [place] [address] ([place]) [place] [address] documented as of this encounter
--- OUTSIDE RECORDS SUMMARY | 2020-09-05 09:31 | XMS REPORT | Summary of Care ---
:1960 Author Organization [facility] Address [address] [place] [address] Care Team Providers Name Role Phone Nito Hamilton Primary Care Provider Jeffrey Mendez RN Unavailable Unavailable Eunice Espinoza (Physicians Telephone Operator) [phone] Reason for Referral MRI/CAT Scan (Routine) Status Reason Specialty Diagnoses / Procedures Referred By Orion eferred To Contact Contact Closed Diagnostic Diagnoses Cerebrovascular accident (CVA), unspecified mechanism Carotid stenosis, bilateral Arterial occlusive disease Essential hypertension Hepatic cirrhosis, unspecified hepatic cirrhosis type, unspecified whether ascites present Shawna Gaffney, Radiology Hyperlipidemia, unspecified hyperlipidemia type Left-sided weakness Cerebrovascular accident (CVA), unspecified mechanism PA-Ute Procedures CT ANGIOGRAM HEAD CHG CT ANGIO,HEAD COMBO,INCL IMAGE PROCESS CT ANGIOGRAM HEAD 26[address] [place] [address] Reason for Visit Auth/Cert Status Reason Specialty Diagnoses / Procedures Referred By C ontact Referred To Contact Phlebotomy Adc Pob Lab Dr regalado Professional O [facility] [address] [facility] [address], [address] [place] [address] Phone: Fax: Encounter Details Date Type Department Care Team Description 06/14/2020 Hospital Encounter [facility] Shawna Gaffney PA-C Arrived [place] Computed 2660 [facility] [address] [place] [address] [place] [address] [facility] [address] [phone] Allergies No Known Allergiesdocumented as of this [...] 81 mg by mouth 0 Active daily. [place]-3 Fatty Acids (FISH OIL Take by mouth. [...] Date/Time Associated Diagnosis Comme nts CT ANGIOGRAM HEAD Routine 06/14/2020 3:57 Cerebrovascular Res ults for this PM CDT accident (CVA), [facility] Carotid stenosis, section. bilateral Arterial occlusive disease Essential hypert ension Hepatic cirrhosis, unspecified hepatic cirrhosis type, unspecified whether ascites present Hyperlipidemia, unspecified hyperlipidemia t ype Left-sided weakness documented in this encounter Results CT ANGIOGRAM HEAD (06/14/2020 3:57 PM CDT) Specimen Impressions Performed At PACS/VR/DOSE [...] MAR Action Action Date Dose Rate Site iohexol (OMNIPAQUE 350 BULK-100 Given 06/14/2020 1:48 PM CDT 10 0 mL mL) injection 100 mL 100 mL, Intravenous, ONCE, 1 dose, 06/14/20 at 1600, Routine documented in this encounter Insurance Payer Benefit Plan / Subscriber ID Effective Phone Address T ype Group Dates [employer] [id number] 2019-[facility] [address] [place] [address] [place] [address] ([place]) [place] [address] documented as of this encounter
--- OUTSIDE RECORDS SUMMARY | 2020-09-05 09:32 | XMS REPORT | Summary of Care ---
:1960 Author Organization [facility] Address [address] [place] [address] Care Team Providers Name Role Phone Nito Hamilton Primary Care Provider Eunice Espinoza (Physicians Buffer Operator) [phone] Reason for Visit Reason Comments Follow-up Encounter Details Date Type Department Care Team Description 06/27/2020 Telephone [facility] Diagnostic Landry Gaffney PA-C Follow-up Imaging, [facility] [address] [place] [id number] [place] [address] [phone] Allergies No Known Allergiesdocumented as of this encounter (statuses as of 06/27/2020) Medications Medication Sig Dispensed Refills Start Date [...] 81 mg by mouth 0 Active daily. [place]-3 Fatty Acids (FISH OIL Take by mouth. 0 Active CONCENTRATE) 1,000 mg Cap lisinopril 10 mg tablet Take 4 tablets by 0 10/05/20 19 Active mouth daily. 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
--- OUTSIDE RECORDS SUMMARY | 2020-09-05 09:32 | XMS REPORT | Summary of Care ---
:1960 Author Organization [facility] Address [address] [place] [address] Care Team Providers Name Role Phone Nito Hamilton Primary Care Provider Eunice Espinoza (Physicians Bakelite Molder) [phone] Reason for Visit Reason Comments Follow-up Encounter Details Date Type Department Care Team Description 06/29/2020 Telephone [facility] Neurology, Clear [place] n[place], DAYANNA Melissa-C Follow-up [address], [address] [place] [address] Floor [phone] [place] [address] [phone] Allergies No Known Allergiesdocumented as of this encounter (statuses as of 06/29/2020) Medications Medication Sig Dispensed Refills Start Date End Date Status lactulose (CEPHULAC) 10 Take 30 mL by 1 Bottle 11 10/22/2016 Active gram/15 mL mouth 2 (two) solutionIndications: times daily. Decompensated HCV cirrhosis furosemide 40 mg Take 1 tablet by 90 tablet 11/27/2016 Active tabletIndications: mouth daily. Decompensated HCV cirrhosis Additional Information Patient taking differently: 40 mg Oral QAM+PM, Reported on 11/27/2016 8:42 PM spironolactone 100 mg Take 1 tablet by 90 tablet 1 11/27/2016 Active tabletIndications: Decompensated mouth daily. HCV cirrhosis amLODIPine 5 mg Take 1 tablet by 90 tablet 11/27/2016 Active tabletIndications: Essential mouth daily. hypertension [...] 81 mg by mouth 0 Active daily. [place]-3 Fatty Acids (FISH OIL Take by mouth. 0 Active CONCENTRATE) 1,000 mg Cap lisinopril 10 mg tablet Take 4 tablets by 0 10/05/20 Active mouth daily. 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 He is going to get labs again soon, will ask for labs ordered 01/13/2020 to also be completed He will call patient access scheduling for his echocoardiogram and keep me updated. documented in this encounter Plan of Treatment Date Type Specialty Care Team Description 07/04/2020 Appointment Radiology Aldair Kim MD [address] [place], [place] [phone] Health Maintenance Due Date Last Done Comments [...] ype Group Dates [employer] [id number] 2019-Andree [place] [address] [place] [address] documented as of this encounter
--- OUTSIDE RECORDS SUMMARY | 2020-09-05 09:32 | XMS REPORT | Summary of Care ---
:1960 Author Organization [facility] Address [address] [place] [address] Care Team Providers Name Role Phone Nito Hamilton Primary Care Provider Eunice Espinoza (Physicians Remelter) [phone] Reason for Referral MRI/CAT Scan (Routine) Status Reason Specialty Diagnoses / Referred By Referred To Procedures Contact Contact New Request Diagnostic Diagnoses Pre-transplant evaluation for chronic liver disease Aldair Kim Radiology Procedures CT ABDOMEN PELVIS W WO CONTRAST MD Manisha [address] [place] [address] Reason for Visit Reason Comments Orders Encounter Details Date Type Department Care Team Description 06/27/2020 Case Management [facility] Aldair Kim Orders Transplant-[place] MD [facility] [address] Entrance B [address] [place] [phone] Allergies No Known Allergiesdocumented as of this [...] 81 mg by mouth 0 Active daily. [place]-3 Fatty Acids (FISH OIL Take by mouth. [...] filedocumented in this encounter Plan of Treatment Name Type Priority Associated Diagnoses Order S chedule CT ABDOMEN PELVIS W WO IMAGING Routine Pre-transplant Exp ected: 06/27/2020, CONTRAST evaluation for chronic Expir es: 06/27/2021 liver disease CBC WITH DIFF LAB Routine Pre-transplant 1 Occurrence s starting evaluation for chronic 06/27 until liver disease 09/27/2020 BASIC METABOLIC PANEL LAB Routine Pre-transplant 1 Oc currences starting (NA, K, CL, CO2, evaluation for chronic 0 06/27/2020 until GLUCOSE, BUN, liver disease 09/27/2020 CREATININE, CA) PROTHROMBIN TIME / INR LAB Routine Pre-transplant 1 O ccurrences starting evaluation for chronic 06/27 until liver disease 09/27/2020 HEPATIC FUNCTION PANEL LAB Routine Pre-transplant 1 O ccurrences starting (99955) (ALB,T.PRO,BILI evaluation for ch ronic 06/27/2020 until T,BU/BC,ALT,AST,ALK liver disease 020 PHOS) Health Maintenance Due Date Last Done Comments [...] Pre-transplant evaluation for chronic li malissa disease - Primary Other specified pre-operative examinatio n documented in this encounter Insurance Payer Benefit Plan / Subscriber ID Effective Phone Address T ype Group Dates [employer] [id number] 2019-[address] [place] [id number] [place] [address] documented as of this encounter
--- OUTSIDE RECORDS SUMMARY | 2020-09-05 09:32 | XMS REPORT | Summary of Care ---
:1960 Author Organization [facility] - Health Address [address] [place] [address] Care Team Providers Name Role Phone Joy Nito Unger Primary Care Provider Eunice Espinoza (Physicians Salt Maker) [phone] Encounter Details Date Type Department Care Team Description 07/26/2020 Orders Only [facility] Doctor Unassigned, No [address] [facility] [place] [address] [address] [place] [address] Allergies No Known Allergiesdocumented as of this encounter (statuses as of 07/26/2020) Medications Medication Sig Dispensed Refills Start Date [...] 81 mg by mouth 0 Active daily. [place]-3 Fatty Acids (FISH OIL Take by mouth. 0 Active CONCENTRATE) 1,000 mg Cap lisinopril 10 mg tablet Take 4 tablets by 0 10/05/20 19 Active mouth daily. 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) 09/01/2016 Elevated liver enzymes 01/27/2016 CVA (cerebral infarction) 01/27/2016 HTN (hypertension) 01/27/2016 HLD (hyperlipidemia) 01/27/2016 documented as of this encounter (statuses as of 07/26/2020) Social History Tobacco Use Types Packs/Day Years [...] Treatment Date Type Specialty Care Team Description 07/26/2020 Mica Paster Visit Phlebotomy Aldair Kim MD [address] [place] [address] Pob, Adc Lab Main Health Maintenance Due Date Last Done Comments [...] Name Priority Date/Time Associated Diagnosis Comme nts ASSIGNMENT OF BENEFITS Routine 07/26/2020 3:08 PM CDT documented in this encounter Results Not on filedocumented in this encounter Insurance Payer Benefit Plan / Subscriber ID Effective Phone Address T ype Group Dates [employer] [id number] 2019-Andree [place] [id number] [place] [address] documented as of this encounter
--- OUTSIDE RECORDS SUMMARY | 2020-09-05 09:32 | XMS REPORT | Summary of Care ---
:1960 Author Organization [facility] Address [address] [place] [address] Care Team Providers Name Role Phone Nito Hamilton Primary Care Provider Eunice Espinoza (Physicians Social Worker Health Services) [phone] Reason for Visit Reason Comments LAB WORK Auth/Cert Status Reason Specialty Diagnoses / Procedures Referred By Ute arvizu Referred To Contact Phlebotomy Diagnoses Pre-transplant evaluation for chronic liver disease Niels juan Pob Lab Draw Procedures CHG HEPATIC FUNCTION PANEL Professional Office Building [address] [place] [address] , [address] [place] [address] Phone: Fax: Encounter Details Date Type Department Care Team Description 07/26/2020 Hot Stick Man Visit [facility] Aldair Kim MD [address] [place] [address] Pre-transplant Professional Office Pob, Adc Lab Main evaluation for Building Phlebotomy chronic liver Lab disease Professional [facility] Building [address] [place] [address] , [address] [place] [address] Allergies No Known Allergiesdocumented as [...] 81 mg by mouth 0 Active daily. [place]-3 Fatty Acids (FISH OIL Take by mouth. [...] been in contact with No / Unsure 07/26/2020 3:11 PM CDT someone who was confirmed or suspected to have Coronavirus / COVID-19? documented as of this encounter Last Filed Vital Signs Not on filedocumented in this encounter Nursing Notes Liliane Smith - 07/26/2020 3:15 PM CDT Venipuncture collection performed by clean technique on the left hand. Total of 1 attempts were made. Slight pressure and a bandage/dressing were applied to the site(s). The patient experienced no complications. The following specimens were processed according to instructions and sent to [facility] laboratories per lab order on 07/26/20: 1 LT BLUE 1 SST RED 1 LAV PPT DK GREEN (LiHep) DK GREEN (SodH) LINARES DK BLUE (K2) DK BLUE (S) ACD Blood Culture NIPT/NTD documented in this encounter Plan of Treatment [...] ype Group Dates [employer] [id number] 2019-Prese [address] [place] [address] [place] [address] [place] [address] (Home) [place] [address] documented as of this encounter
--- OUTSIDE RECORDS SUMMARY | 2020-09-05 09:32 | XMS REPORT | Summary of Care ---
:1960 Author Organization [facility] Address [address] [place] [address] Care Team Providers Name Role Phone Nito Hamilton Primary Care Provider Eunice Espinoza (Physicians Armed Security Professional) [phone] Reason for Visit (Routine) Status Reason Specialty Diagnoses / Procedures Referred By Orion cookerred To Contact Contact Closed Cardiology Diagnoses Cerebrovascular accident (CVA), unspecified mechanism Carotid stenosis, bilateral Arterial occlusive disease Essential hypertension Hepatic cirrhosis, unspecified hepatic cirrhosis type, unspecified whether ascites present hSawna Gaffney, Hyperlipidemia, unspecified hyperlipidemia type Left-sided weakness PA-C Procedures ECHO ROUTINE W/DOPPLER COLOR Preferred Location: [address] [address] Encounter Details Date Type Department Care Team Description 07/26/2020 Laboratory Only [facility] Shawna Gaffney, PA-C [address] [place] [address] [id number] Cerebrovascular accident (CVA), unspecif ied mechanism; Cardiology- Aye Carrillo MD [address] [place] [address] Carotid stenosis, bilateral; [facility], Adc Echo Room 1 - Arterial occlusive disease; [address] [facility] Essential hy pertension; Drive, [address] Hepatic cirrhosis, unspecifi ed hepatic cirrhosis type, unspecified whether ascites present; [place], [place] Hyperlipidemia, unspecified hyperlipidemia type; [address] Left-sided weakness [phone] Allergies No Known Allergiesdocumented as of this [...] 81 mg by mouth 0 Active daily. [place]-3 Fatty Acids (FISH OIL Take by mouth. [...] Sign Reading Time Taken Comments Blood Pressure 174/84 07/26/2020 2:13 PM CDT Pulse 83 07/26/2020 2:13 PM CDT Temperature - - Respiratory Rate - - Oxygen Saturation - - Inhaled Oxygen Concentration - - Weight 86.2 kg (190 lb) 07/26/2020 2:13 PM CDT Height 172.7 cm (5' 8") 07/26/2020 2:13 PM CDT Body Mass Index 28.89 07/26/2020 2:13 PM CDT documented in this encounter Plan of Treatment [...] filedocumented in this encounter Visit Diagnoses Diagnosis Cerebrovascular [...] ype Group Dates [employer] [id number] 2019-Andree [place] [address] [place] [address] documented as of this encounter
--- OUTSIDE RECORDS SUMMARY | 2020-09-05 09:32 | XMS REPORT | Summary of Care ---
:1960 Author Organization [facility] Address [address] [place] [address] Care Team Providers Name Role Phone Nito Hamilton Primary Care Provider Eunice Espinoza (Physicians Senior Quality Technician) [phone] Reason for Visit Reason Comments Appointment Encounter Details Date Type Department Care Team Description 07/21/2020 Telephone [facility] Interventional Shawna Wells PA-C Appointment Radiology [address] [place] [address] [place], [place] [address] Allergies No Known Allergiesdocumented as of this encounter (statuses as of 07/21/2020) Medications Medication Sig Dispensed Refills Start Date [...] 81 mg by mouth 0 Active daily. [place]-3 Fatty Acids (FISH OIL Take by mouth. 0 Active CONCENTRATE) 1,000 mg Cap lisinopril 10 mg tablet Take 4 tablets by 0 10/05/20 19 Active mouth daily. 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 Ready for clinic? documented in this encounter Plan of Treatment Date Type Specialty Care Team Description 07/26/2020 Laboratory Only Cardiology Shawna Gaffney PA-C [address] [place] [address] [phone] Pc, Adc Echo Room 1 - Health Maintenance Due Date Last Done Comments [...] ype Group Dates [employer] [id number] 2019-Andree [place] [address] [place] [address] documented as of this encounter
--- OUTSIDE RECORDS SUMMARY | 2020-09-05 09:33 | XMS REPORT | Summary of Care ---
:[address] [facility] Address [address] [place] [address] Care Team Providers Name Role Phone Nito Hamilton Primary Care Provider Eunice Espinoza (Physicians Corporate Development Associate) [phone] Reason for Visit Reason Comments Appointment Encounter Details Date Type Department Care Team Description 07/27/2020 Telephone [facility] Interventional Shawna Wells PA-C Appointment Radiology [address] [place] [address] [place], [place] [phone] Allergies No Known Allergiesdocumented as of this encounter (statuses as of 07/27/2020) Medications Medication Sig Dispensed Refills Start Date [...] 81 mg by mouth 0 Active daily. [place]-3 Fatty Acids (FISH OIL Take by mouth. 0 Active CONCENTRATE) 1,000 mg Cap lisinopril 10 mg tablet Take 4 tablets by 0 10/05/20 19 Active mouth daily. 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 He advised had echocardiogram done. Wants to schedule clinic Noted fasting lipid not yet complete- Will place new order since patient advises that lab said they did all the appropriate labs. - New order placed Clinic scheduled 08/04 at noon. Provided directions. Answered all questions. 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
--- OUTSIDE RECORDS SUMMARY | 2020-09-05 09:34 | XMS REPORT | Summary of Care ---
:1960 Author Organization [facility] Address [address] [place] [address] Care Team Providers Name Role Phone Dianelys Espinoza (Physicians Operations Forester) [phone] Eunice Espinoza Primary Care Provider Reason for Visit Reason Comments LAB WORK Auth/Cert Status Reason Specialty Diagnoses / Procedures Referred By Orion diehl To Contact Contact Phlebotomy Diagnoses Hyperlipidemia, unspecified hyperlipidemia type Adc Po b Lab Draw Procedures LIPID Professional Office [address] , [address] [place] [address] Fax: Encounter Details Date Type Department Care Team Description 08/03/2020 Continuous Conveyor Screen Drier Visit [facility] Nilam Vidal MD [address] [place] [address] Cerebrovascular accident (CVA), unspecif ied mechanism; Professional Office Pob, Adc Lab Main Carotid stenosis, bilateral; Building Phlebotomy Arterial occlusive disease; Lab Essential hypertension; Professional Office Hepatic cirrhosis, unspecified hepatic cirrhosis type, unspecified whether ascites present; [facility] Hyperlipidemia, unspecified hyperlipidemia type; [address] [place] [address] Left-sided weakness , [address] [place] [address] Allergies No Known Allergiesdocumented as of this encounter (statuses as of 08/03/2020) Medications Medication Sig Dispensed Refills Start Date [...] 81 mg by mouth 0 Active daily. [place]-3 Fatty Acids (FISH OIL Take by mouth. 0 Active CONCENTRATE) 1,000 mg Cap lisinopril 10 mg tablet Take 4 tablets by 0 10/05/20 19 Active mouth daily. 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 documented as of this encounter Last Filed Vital Signs Not on filedocumented in this encounter Nursing Notes Liliane Smith - 08/03/2020 11:15 AM CDT Venipuncture collection performed by clean technique on the right hand. Total of 1 attempts were made. Slight pressure and a bandage/dressing were applied to the site(s). The patient experienced no complications. The following specimens were processed according to instructions and sent to [facility] laboratories per lab order on 08/03/20: LT BLUE 1 SST RED 1 LAV PPT DK GREEN (LiHep) DK GREEN (SodH) LINARES DK BLUE (K2) DK BLUE (S) ACD Blood Culture NIPT/NTD documented in this encounter Plan of Treatment Date Type Specialty Care Team Description 08/04/2020 Office Visit Neurology Prabhjot Vidal MD [address] [place] [address] [phone] Health Maintenance Due Date Last Done Comments [...] ype Group Dates [employer] [id number] 2019-Prese [address] [place] [address] [place] [address] ([place]) [place] [address] documented as of this encounter
--- OUTSIDE RECORDS SUMMARY | 2020-09-05 09:34 | XMS REPORT | Summary of Care ---
:[address] [facility] Address [address] [place] [address] Care Team Providers Name Role Phone Dianelys Espinoza (Physicians Refueling Ramp Supervisor) [phone] Eunice Espinoza Primary Care Provider Eunice Verdugo RN Primary Nurse Unavailable Reason for Referral (Routine) Status Reason Specialty Diagnoses / Referred By Referred To Procedures Contact Contact New Request Orthopedic Surgery Diagnoses Chronic shoulder pain, unspecified laterality Chronic pain of left knee Shawna Gaffney, Procedures CONSULT/REFERRAL ORTHOPAEDIC SURGERY PAAlvina [address] [place] [address] Reason for Visit Reason Comments Follow-up Encounter Details Date Type Department Care Team Description 08/04/2020 Office Visit [facility] Prabhjot Vidal, Arterial o cclusive disease (Primary Dx); NeurologyHussain MD Chronic arterial ischemic stroke; [address] Chronic shoulder pain, unspe cified laterality; [address] [place] [address] Chronic pain of left knee; [address] [place], [place] Obesity (BMI 30.0-34.9); [place] [address] Antiplatelet or antithrombotic long-term use; [id number] Hyperlipidemia, unspecified hyperlipidem ia type; [phone] Essential hyper tension; (Fax) Carotid stenosi s, bilateral Allergies No Known Allergiesdocumented as of this encounter (statuses as of 08/10/2020) Medications Medication Sig Dispensed Refills Start Date [...] 81 mg by mouth 0 Active daily. [place]-3 Fatty Acids (FISH OIL Take by mouth. 0 Active CONCENTRATE) 1,000 mg Cap lisinopril 10 mg tablet Take 4 tablets by 0 10/05/20 19 Active mouth daily. documented as of this encounter (statuses as of 08/10/2020) Active Problems Problem Noted Date Decompensated hepatic cirrhosis 10/20/2016 Generalized abdominal pain 09/02/2016 Decompensated cirrhosis related to hepatitis C virus ( HCV) 09/01/2016 Elevated liver enzymes 01/27/2016 CVA (cerebral infarction) 01/27/2016 HTN (hypertension) 01/27/2016 HLD (hyperlipidemia) 01/27/2016 documented as of this encounter (statuses as of 08/10/2020) Social History Tobacco Use Types Packs/Day Years [...] Sign Reading Time Taken Comments Blood Pressure 166/94 08/04/2020 12:07 PM CDT Pulse 71 08/04/2020 12:07 PM CDT Temperature 36.7 C (98 F) 08/04/2020 12:07 PM CDT Respiratory Rate 18 08/04/2020 12:07 PM CDT Oxygen Saturation 97% 08/04/2020 12:07 PM CDT Inhaled Oxygen Concentration - - Weight 88.7 kg (195 lb 8 oz) 08/04/2020 12:07 PM CDT Height 170.2 cm (5' 7") 08/04/2020 12:07 PM CDT Body Mass Index 30.62 08/04/2020 12:07 PM CDT documented in this encounter Progress Notes Shawna Gaffney PA-C - 08/04/2020 12:00 PM CDT NeuroEndovascular/Stroke Clinic Note DATE OF SERVICE: 08/04/2020 12:32 Visit type: Established CHIEF COMPLAINT: Vascular neurology follow-up HPI Mr. 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 He presents for further follow-up today after obtaining the needed diagnostic evaluation studies. Patient says he is currently working to establish his care in the [facility] system and is meeting with a user interface designer to evaluate for possible liver transplant. He does report history of 4 previous strokes, last one (2018) left him with residual neurological deficits affecting his left side. He was told he has bilateral carotid stenosis from his stroke workup at [facility] in 2018. Patient ambulates with a cane secondary to severe left knee pain and residual left sided neuro deficits; however uses cane on the right side given chronic left shoulder injury. We last saw this gentleman in our clinic in January and ordered several diagnostic studies; however due to COVID, he was delayed in obtaining these studies. He presents today for discussion of results of these studies and to obtain neurology clearance for potential surgical interventions. He reports chronic right sided weakness which is his baseline deficit from previous stroke; otherwise, denies any episodes of focal neurological deficits including weakness, numbness or vision changes. He is compliant with his daily medications and is working on being more active, but is severely limited due to his shoulder and knee pain.He has not seen his liver specialist in some time due to COVID,but reports he is about due for another paracentesis, which he typically has every 3-4 months. He mentions he is quite tired of this diminished quality of life and says it is hard to even enjoy his grandchildren. Past Medical History: Diagnosis Date Carotid artery stenosis Cirrhosis CVA (cerebral vascular accident) HCV (hepatitis C virus) HTN (hypertension) ? Past Surgical History: Procedure Laterality Date CEREBRAL ANGIOGRAM 2018 in [facility] ? No Known Allergies Family History Problem Relation Age of Onset Diabetes Mother Stroke Father ? Social History Socioeconomic History Marital status: Spouse name: Not on file Number of children: Not on file Years of education: Not on file Highest education level: Not on file Occupational History Not on file Social Needs Financial resource strain: Not on file Food insecurity Worry: Not on file Inability: Not on file Transportation needs Medical: Not on file Non-medical: Not on file Tobacco Use Smoking status: Never Smoker Smokeless tobacco: Never Used Tobacco comment: Has smoked since 2000 Substance and Sexual Activity Alcohol use: Not Currently Alcohol/week: 0.0 standard drinks Comment: Sober since 2019 Drug use: Never Sexual activity: Not on file Lifestyle Physical activity Days per week: Not on file Minutes per session: Not on file Stress: Not on file Relationships Social connections Talks on phone: Not on file Gets together: Not on file Attends worship service: Not on file Active member of club or organization: Not on file Attends meetings of clubs or organizations: Not on file Relationship status: Not on file Intimate partner violence Fear of current or ex partner: Not on file Emotionally abused: Not on file Physically abused: Not on file Forced sexual activity: Not on file Other Topics Concern Not on file Social History Narrative Lives in sober house Patient's Medications START taking these medications No medications on file CONTINUE taking these medications which have NOT CHANGED AMLODIPINE 5 MG TABLET Take 1 tablet by mouth daily. ASPIRIN 81 MG CHEWABLE TABLET Take 81 mg by mouth daily. ATORVASTATIN 40 MG TABLET Take 40 mg by mouth at bedtime. CLOPIDOGREL (PLAVIX) 75 MG TABLET Take 75 mg by mouth daily. FUROSEMIDE 40 MG TABLET Take 1 tablet by mouth daily. LACTULOSE (CEPHULAC) 10 GRAM/15 ML SOLUTION Take 30 mL by mouth 2 (two) times daily. LISINOPRIL 10 MG TABLET Take 4 tablets by mouth daily. [place]MEGA-3 FATTY ACIDS (FISH OIL CONCENTRATE) 1,000 MG CAP Take by mouth. ONDANSETRON 4 MG DISINTEGRATING TABLET Take 1 tablet by mouth every 8 (eight) hours as needed for Nausea and Vomiting (N/V). PROMETHAZINE 25 MG TABLET Take 1 tablet by mouth every 6 (six) hours as needed for Nausea and Vomiting (N/V). SPIRONOLACTONE 100 MG TABLET Take 1 tablet by mouth daily. START taking Modified Medications as Prescribed No medications on file STOP taking these medications No medications on file Review of Systems General: (-) fever, (-) chills, (-) weight change, (-) dizziness, (-) fatigue, (-) change in appetite Skin: (-) rash, (-) lesion HEENT: (-) headache, (-) change in hearing, (-) change in vision, (-) nasal discharge, (-) sore throat Neck: (-) pain, (-) difficulty swallowing, (-) mass Heme: (-) bleeding disorder Resp: (-) cough, (-) shortness of breath, (-) dyspnea on exertion Cardio: (-) chest pain, (-) palpitations, (-) syncope GI: (-) abdominal pain, (-) nausea, (-) vomiting, (-) diarrhea, (-) constipation, (-) melena, (-) hematochezia, (-) hematemesis : (-) dysuria, (-) hematuria, (-) increased frequency, (-) difficulty urinating, (-) difficulty initiating Endo: (-) heat intolerance, (-) diabetes, (-) cold intolerance, (-) polyuria, (- ) polydipsia, (-) renal insufficiency, (-) thyroid disease Neuro: (-) numbness, (-) tingling, (-) weakness Back: (-) pain, (-)spasms MARISELA: (-) muscle pain, (+) joint pain, (-) claudication Psych: (-) anxiety, (+) depression, (-) psychiatric disorder PHYSICAL EXAM Temp: [36.7 C (98 F)] Pulse: [71] Resp: [18] BP: (166)/(94) 08/04/20 1207 Weight: 195 lb 8 oz (88.7 kg) Height: 5' 7" (1.702 m) Body mass index is 30.62 kg/m. Higher Cortical Functions: Mental Status: Alert, awake and is oriented to time, place and person with normal attention span, normal recent and remote memory Speech/ Language: Fluent speech with intact comprehension, with intact naming and repetition, no right-left confusion, no finger agnosia and no apraxia. Normal fund of knowledge. No dysarthria. Cranial Nerves: Pupils bilaterally 2-3 mm in size, equal, round and reactive to light, fundoscopic exam was performed but I was unable to locate the discs due to technical difficulties including small-sized pupils andpoor fixation, intact visual samuels to confrontation, extraocular movements intact without any diplop ia, no ptosis, no nystagmus, face appears to be symmetric with intact facial sensations, no hearing loss to rubbing fingers, tongue is in the midline, uvula elevates in the midline and without any drooping of the soft palate, normal shrugging of the shoulders bilaterally. Motor: Muscle tone: normal, no rigidity, spasticity Muscle bulk: normal no abnormal spontaneous muscle activity; fasciculations: absent Tremor: absent MOTOR EXAMINATION: STRENGTH Right Left Deltoid 5 5 Biceps 4+ 5 Triceps 4+ 5 Wrist extensors 5 5 Interossei 5 5 Hip flexors 5 5 Knee flexors (hamstring) 4+ 5 Knee extensors (quadriceps) 4+ 5 Ankle dorsiflexors 4+ 5 Ankle plantar flexors 4+ 5 Exam limited due to left shoulder/knee pain. Cannot lift arms above shoulder, pain limiting to knee Reflexes: Deep Tendon Reflex R L Biceps 1+ 1+ Triceps 1+ 1+ Brachioradialis 1+ 1+ Patellar 1+ 1+ Achilles 1+ 1+ Pathologic reflexes and signs: Plantar reflex: right toe upgoing; left is downgoing Cerebellar: Nystagmus: absent FTN:normal bilaterally Tremors: bilateral fine resting tremors. Sensory: LT: intact Temperature: diminished right face/leg PP: intact Vibration: intact Gait and station Short step, decreased arm swing. Ambulates with cane- positioned on right side Limited by pain on left knee HEENT: oropharynx clear, moist mucous membranes Lungs: clear to auscultation bilaterally Cardio: S1, S2 normal Extremities:no cyanosis, clubbing or edema Neck:supple, no carotid bruit, no JVD Abdomen: soft, non-tender, slight distended Modified [place] Scale (MRS) Total: 2 0 No symptoms at all 1 No significant disability despite symptoms; able to carry out all usual duties and activities 2 Slight disability; unable to carry out all previous activities, but able to look after own affairswithout assistance 3 Moderate disability; requiring some help, but able to walk without assistance 4 Moderately severe disability; unable to walk without assistance and unable to attend to own bodilyneeds without assistance 5 Severe disability; bedridden, incontinent and requiring constant nursing care and attention 6 LAB DATA HGB A1C (%) Date Value 08/03/2020 5.2 LDL CHOL (mg/dL) Date Value 08/03/2020 100 CHOL (mg/dL) Date Value 08/03/2020 167 TSH (mIU/L) Date Value 05/12/2020 3.06 CBC BMP PT/INR WBC (10*3/L) Date Value 07/26/2020 4.87 NA (mmol/L) Date Value 08/03/2020 138 No results found for: PT RBC (10*6/L) Date Value 07/26/2020 4.43 K (mmol/L) Date Value 08/03/2020 4.7 INR (no units) Date Value 07/26/2020 1.0 PLT (10*3/L) Date Value 07/26/2020 150 CALCIUM (mg/dL) Date Value 08/03/2020 9.0 HGB (g/dL) Date Value 07/26/2020 12.2 CL (mmol/L) Date Value 08/03/2020 104 aPTT HCT (%) Date Value 07/26/2020 37.3 (L) BUN (mg/dL) Date Value 08/03/2020 17 APTT Patient (Seconds) Date Value 05/12/2020 26 RADIOLOGY/IMAGING Images personally reviewed by you. 06/14/20 CTA Head and neck: No acute vascular findings in the head and neck. Specifically, no large vessel occlusion is seen. Moderate atherosclerotic disease identified in the intracranial ICAs bilaterally. This is borderline for flow limitation in the right proximal cavernous and left supraclinoid ICA region. Mild scattered atherosclerotic disease is seen in the remaining head and neck vessels. 06/14/20 MRI brain: There is no diffusion restriction suggest acute/subacute infarction. No intracranial hemorrhage, extra-axial collection, mass effect, midline shift, or herniation. No abnormal signal Blooming on gradient sequences. Multifocal chronic infarcts are noted in the bilateral superior frontal lobes, bilateral posterior parietal lobes and bilateral occipital lobes. Remote lacunarinfarcts are noted in the arthur and bilateral basal ganglia. ASSESSMENT/ PLAN Mr. 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 He presents for further follow-up today after obtaining the needed diagnostic evaluation studies. MRI brain with bilateral hemispheric infarcts with possible watershed distribution that warrants further evaluation before neurological clearance given for surgical interventions. -- discussed need for cerebral angiogram to better profile bilateral petrous/supraclinoid carotid artery stenosis in order to better assess true risk for future surgery/general anesthesia with risk of hypotension. -- Ortho consult for bilateral shoulder/knee complaint. -- Recommend patient to f/u with liver specialist (Dr. Kim)- Specifically to request opinion aakash mood stabilizing medication that will not interfere with diminished liver function given cirrhosis. -- I have had a very long conversation with the patient regarding their risk factors for stroke: # Supportive Care - Management of any chronic conditions per PCP and other consultants. # Counseling Blood pressure control, LDL < 70, A1C < 6.5 Continue daily antiplatelet, statin and anti-hypertensive regimen Smoking cessation counseling given Discussed dietary and exercise habits to help with stroke risk reduction PATIENT EDUCATION: Discussed with the patient that due to their medical history they are at higher risk of complications from COVID-19 infection, hence we recommend the following: - Avoid exposure as much as possible by staying at home - Wash hands with soap and water for at least 20 seconds - Avoid touching eyes, nose and mouth with unwashed hands - Avoid close contact with people who are sick - Clean and disinfect frequently touched surfaces daily - Above mentioned plan was discussed with patient and their son in detail. I have answered all theirquestions to the best of my abilities. I have reviewed measures for secondary stroke prevention withthe patient and his son, including aggressive vascular risk factors modification, healthy diet, regular exercise and medication compliance. As well, we discussed the need to call 911 immediately in case of any symptoms concerning for stroke in the future. After visit summary (AVS ) documentation will be available through [employer] for this encounter. - This office visit involved counseling and coordination of care that comprised more than 50% of [id number] visit time. I spent about 70 minute(s) of total time with the patient and his son obtaining/reviewing history and performing examination as well as time spent counseling the patient and his son regarding risks vs. benefits of treatment, treatment options, possible adverse reactions associated with treatments including medications and discussing preventive care. Patient and plan of care was discussed with Dr. Vidal, Neurology/NeuroEndovascular Faculty Shawna Gaffney PA-C Physician Refueling Ramp Supervisor Neuro Endovascular/Neurology Department documented in this encounter Plan of Treatment [...] 2008 INFLUENZA VACCINE (#1) 2020 Depression Screening 08/04/2021 08/04/2020 HEPATITIS C (HCV) SCREEN Completed 05/12/2020 documented as of this encounter Results Not on filedocumented in this encounter Visit Diagnoses Diagnosis Arterial occlusive disease - Primary Embolism and thrombosis of unspecified a rtery Chronic arterial ischemic stroke Transient ischemic attack (TIA), and cer ebral infarction without residual deficits Chronic shoulder pain, unspecified later ality Chronic pain of left knee Pain in joint, lower leg Obesity (BMI 30.0-34.9) Obesity, unspecified Antiplatelet or antithrombotic long-term use Encounter for long-term (current) use of antiplatelets/antithrombotics Hyperlipidemia, unspecified hyperlipidem ia type Essential hypertension Unspecified essential hypertension Carotid stenosis, bilateral Occlusion and stenosis of multiple and b ilateral precerebral arteries without mention of cerebral infarction documented in this encounter Insurance Payer Benefit Plan / Subscriber ID Effective Phone Address T ype Group Dates [employer] [id number] 2019-[address] [place] [address] [place] [address] ([place]) [place] [address] documented as of this encounter
--- OUTSIDE RECORDS SUMMARY | 2020-09-05 09:34 | XMS REPORT | Summary of Care ---
:1960 Author Organization [facility] Address [address] [place] [address] Care Team Providers Name Role Phone Dianelys Espinoza (Physicians Title Inspector) [phone] Eunice Espinoza Primary Care Provider Eunice Verdugo RN Primary Nurse Unavailable Reason for Referral (Routine) Status Reason Specialty Diagnoses / Referred By Referred To Procedures Contact Contact New Request Orthopedic Surgery Diagnoses Chronic shoulder pain, unspecified laterality Chronic pain of left knee Shawna Gaffney, Procedures CONSULT/REFERRAL ORTHOPAEDIC SURGERY PAAlvina [address] [place] [address] Reason for Visit Reason Comments Follow-up Encounter Details Date Type Department Care Team Description 08/04/2020 Office Visit [facility] Prabhjot Vidal, Arterial o cclusive disease (Primary Dx); NeurologyHussain MD Chronic arterial ischemic stroke; [address] Chronic shoulder pain, unspe cified laterality; [address] [place] [address] Chronic pain of left knee; [address] [place], [place] Obesity (BMI 30.0-34.9); [place] [address] Antiplatelet or antithrombotic long-term use; [address] Hyperlipidemia, unspecified hyperlipidem ia type; [phone] Essential hyper tension; (Fax) Carotid stenosi s, [...] 81 mg by mouth 0 Active daily. [place]-3 Fatty Acids (FISH OIL Take by mouth. [...] working to establish his care in the [facility] system and is meeting with a refining engineer to evaluate for possible liver transplant. He [...] Procedure Laterality Date CEREBRAL ANGIOGRAM 2018 in [facility] ? No Known Allergies Family History Problem [...] file Gets together: Not on file Attends yarsani service: Not on file Active member of [...] JVD Abdomen: soft, non-tender, slight distended Modified [place] Scale (MRS) Total: 2 0 No symptoms [...] (AVS ) documentation will be available through [employer] for this encounter. - This office visit involved counseling and coordination of care that comprised more than 50% of [id number] visit time. I spent about 70 minute(s) [...] Vidal, Neurology/NeuroEndovascular Faculty Shawna Gaffney PA-C Physician Title Inspector Neuro Endovascular/Neurology Department documented in this encounter [...] ype Group Dates [employer] [id number] 2019-[address] [place] [address] [place] [address] ([place]) [place] [address] documented as of this encounter
--- OUTSIDE RECORDS SUMMARY | 2020-09-05 09:34 | XMS REPORT | Summary of Care ---
:1960 Author Organization [facility] Address [address] [place] [address] Care Team Providers Name Role Phone Dianelys Espinoza (Physicians Heel Gouger) [phone] Eunice Espinoza Primary Care Provider Eunice Verdugo RN Primary Nurse Unavailable Reason for Visit Reason Comments Procedure Encounter Details Date Type Department Care Team Description 08/10/[address] [facility] Diagnostic Landry Gaffney PA-C Procedure Imaging, [facility] [address] [place] [phone] Allergies No Known Allergiesdocumented as of this [...] 81 mg by mouth 0 Active daily. [place]-3 Fatty Acids (FISH OIL Take by mouth. [...] Telephone Encounter - Shawna Gaffney PA-C - 08/10/2020 4:03 PM CDT NeuroEndovascular service Call to patient- discussed recommendation for cerebral angiogram; he will have to talk to his son stephania if he can take the day off to take him for appointment; otherwise isnt sure he wants to proceed at this time. -- He does not want to schedule another appointment with his liver specialist at this time, but is curious about the mood stabilizer medication; advised have not heard back from Dr. Kim yet; but will keep apprised. He understood documented in this encounter Plan of Treatment [...] ype Group Dates [employer] [id number] 2019-[facility] [address] [place] [address] [place] [address] documented as of this encounter
--- OUTSIDE RECORDS SUMMARY | 2020-09-05 09:35 | XMS REPORT ---
:1960 Author Organization [facility] Address [address] [facility], 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 Problem Hyperlipidemia, E78.5 Active 39252955 unspecified hyperlipidemia type Problem Peripheral edema R60.9 Active 87139031 Problem Umbilical hernia K42.9 Active 173860442 without obstruction and without gangrene Problem Bilateral carotid I65.23 Active 617306194 artery stenosis Problem Unspecified cirrhosis K74.60 Active 15920821 of liver Problem History of CVA Z86.73 Active 672119677 Multip (cerebrovascular le. accident) Problem Pain in left shoulder M25.512 Active 34194839 Problem Pain in right M25.511 Active 59160376 shoulder Problem Pain in left knee M25.562 Active 77030875052742 2 ALLERGIES No Known Allergies ENCOUNTERS from 1960 to 2020-08-27 Encounter Location Date Provider Diagnosis Zoran Rosario [address] [place], Dianelys Espinoza Other ascites R18.8 [address] [place], ; [place] [address] C without hepa tic coma B18.2 ; Unspecified cirrhosis of li malissa K74.60 and Umbi lical hernia without obstruction and without gangren e K42.9 IMMUNIZATIONS No Information SOCIAL HISTORY Tobacco Use: Social History Observation Description Date Details (start date - stop date) Former Smoker Sex Assigned At : Social History Observation Description Sex Assigned At Unknown Alcohol Screen Question Answer Notes Did you have a drink containing alcohol in the past year? No Points 0 Interpretation Negative Tobacco Use/Smoking Question Answer Notes Are you a former smoker REASON FOR REFERRAL No Information VITAL SIGNS Height 68 in Aug, Weight 203 lbs Aug, Temperature 98.4 degrees Fahrenheit Aug, BMI 30.86 kg/m2 Aug, Oximetry 97 % Aug, Respiratory Rate 18 /min Aug, Blood pressure systolic 138 mm Hg Aug, Blood pressure diastolic 82 mm Hg Aug, MEDICATIONS Medication SIG (Take, Route, Start Date End Date Status Frequency, Duration) Atorvastatin Calcium 20 MG 1 tablet in evening May, Active Orally Once a day for 90 days Spironolactone 100 MG 1 tablet Orally Once Sep, 0 Active daily for 90 days Lasix 40 MG 1 tablet Orally Once Active daily for 90 days Amlodipine Besylate 5 MG 1 tablet Orally Once a Active day for 90 days Clopidogrel Bisulfate 75 MG 1 tablet Orally Once a May, Active day for 90 days Lisinopril 40 MG 1 tablet Orally Once a May, A ctive day for 90 days PROCEDURES No Information RESULTS No Results REASON FOR VISIT Patient needs referral for parathesis; #[phone] MEDICAL (GENERAL) HISTORY Type Description Date Medical History HTN (hypertension) Medical History Stroke Surgical History No Surgical history information Goals Section No Information Health Concerns No Information MEDICAL EQUIPMENT No Information MENTAL STATUS No Information FUNCTIONAL STATUS No Information ASSESSMENTS Encounter Date Diagnosis Notes Aug, Umbilical hernia without obstruction and without gangrene (ICD-10 - K42.9) Aug, Other ascites (ICD-10 - R18.8) Aug, Unspecified cirrhosis of liver (ICD-10 - K74.60) Aug, Chronic hepatitis C without hepatic coma (ICD-10 - B18.2) PLAN OF TREATMENT Treatment Notes Assessment Notes Clinical Notes Other ascites Refer to GI Dr. Wu; patient no longer wants to see Dr. Ventura. Since the referral was done urgently, I instructed the patient to call tomorrow am around 0900 to f/u on the referral order Chronic hepatitis C without hepatic Aware coma Unspecified cirrhosis of liver Aware Umbilical hernia without obstruction Aware and without gangrene Next Appt Details F/u in 6 months; as well as f/u prn. [place] son: Provider Name:Dianelys Espinoza, 2021-02- 3 01:00:00 PM, [address] [facility], [address], [place], [address], Insurance Providers Payer Name Payer Payer Insured Patient Coverage Coverage Address Phone Name Relationship to Start Date End Date Insured [facility] [address] [address] [phone] Fraker,Will self (Medicaid) [address] [address]
--- OUTSIDE RECORDS SUMMARY | 2020-09-05 09:35 | XMS REPORT | Summary of Care ---
:1960 Author Organization [facility] Address [address] [place] [address] Care Team Providers Name Role Phone Dianelys Espinoza (Physicians Boiler/Chiller Operator) [phone] Eunice Espinoza Primary Care Provider Eunice Verdugo RN Primary Nurse Unavailable Reason for Visit Reason Comments Appointment Liver Txpl Eval Encounter Details Date Type Department Care Team Description 08/29/[address] [facility] Aldair Kim Appointment (Liver Transplant-[place] MD Manisha Txpl Eval ) [facility] [address]tr[address] [address] [place], [place] [phone] [address] [phone] Allergies No Known Allergiesdocumented as of this encounter (statuses as of 08/29/2020) Medications Medication Sig Dispensed Refills Start Date [...] 81 mg by mouth 0 Active daily. [place]-3 Fatty Acids (FISH OIL Take by mouth. 0 Active CONCENTRATE) 1,000 mg Cap lisinopril 10 mg tablet Take 4 tablets by 0 10/05/20 19 Active mouth daily. 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 Briana [id number] documented in this encounter Plan of Treatment Date Type Specialty Care Team Description 09/02/2020 Office Visit Orthopedic Surgery Petty Gomez MD [address] [place] [address] 09/19/2020 Laboratory Only Clinical Medical Only, Adc Test Laboratory 09/23/2020 Appointment Radiology Shawna Gaffney PA-C [address] [place] [address] [phone] Health Maintenance Due Date Last Done Comments [...] ype Group Dates [employer] [id number] 2019-Andree [place] [id number] [place] [address] documented as of this encounter
--- OUTSIDE RECORDS SUMMARY | 2020-09-05 09:35 | XMS REPORT | Summary of Care ---
:1960 Author Organization [facility] Address [address] [place] [address] Care Team Providers Name Role Phone Dianelys Espinoza (Physicians Burner Tender) [phone] Eunice Espinoza Primary Care Provider Eunice Verdugo RN Primary Nurse Unavailable Reason for Visit Reason Comments Appointment Liver Txpl Eval Encounter Details Date Type Department Care Team Description 08/29/2020 Telephone [facility] Aldair Kim Appointment (Liver Transplant-[place] MD Manisha Txpl Eval ) [facility] [address]tr[address] [address] [place], [place] [phone] [address] [phone] Allergies No Known Allergiesdocumented as of this encounter (statuses as of 09/01/2020) Medications Medication Sig Dispensed Refills Start Date [...] 81 mg by mouth 0 Active daily. [place]-3 Fatty Acids (FISH OIL Take by mouth. 0 Active CONCENTRATE) 1,000 mg Cap lisinopril 10 mg tablet Take 4 tablets by 0 10/05/20 19 Active mouth daily. 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 Briana [id number] signed by Briana Hodge at 09/01/2020 4:39 PM CDTTelephone Encounter - Briana Hodge - 08/29/2020 3:55 PM CDTLeft [facility] a return call to check w/ patient to see is he is ready to schedule his liver txpl evaltesting. Briana [id number] documented in this encounter Plan of Treatment Date Type Specialty Care Team Description 09/02/2020 Office Visit Orthopedic Surgery Petty Gomez MD [address] [place] [address] 09/19/2020 Laboratory Only Clinical Medical Only, Adc Test Laboratory 09/23/2020 Appointment Radiology Shawna Gaffney PA-C [address] [place] [address] Health Maintenance Due Date Last Done Comments [...] ype Group Dates [employer] [id number] 2019-Andree [place] [id number] [place] [address] documented as of this encounter
--- OUTSIDE RECORDS SUMMARY | 2020-09-05 09:35 | XMS REPORT | Summary of Care ---
:1960 Author Organization [facility] Address [address] [place] [address] Care Team Providers Name Role Phone Dianelys Espinoza (Physicians Tetryl Dissolver Operator) [phone] Eunice Espinoza Primary Care Provider Eunice Verdugo RN Primary Nurse Unavailable Reason for Referral Radiology Services (Routine) Status Reason Specialty Diagnoses / Referred By Referred To Procedures Contact Contact New Request Diagnostic Diagnoses Bilateral carotid artery stenosis Arterial occlusive disease Antiplatelet or antithrombotic long-term use Chronic arterial ischemic stroke Shawna Gaffney Radiology Procedures IR ANGIOGRAM CEREBRAL ABEL Sears [address] [place] [address] Reason for Visit Reason Comments Procedure Encounter Details Date Type Department Care Team Description 08/17/2020 Telephone [facility] Diagnostic Landry Gaffney PA-C Procedure Imaging, [facility] [address] [place] [address] [address] [place] [address] [place] [address] [phone] Allergies No Known Allergiesdocumented as of this encounter (statuses as of 08/17/2020) Medications Medication Sig Dispensed Refills Start Date [...] 81 mg by mouth 0 Active daily. [place]-3 Fatty Acids (FISH OIL Take by mouth. 0 Active CONCENTRATE) 1,000 mg Cap lisinopril 10 mg tablet Take 4 tablets by 0 10/05/20 19 Active mouth daily. 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 NPO after midnight, ok for all AM medications. Provided directions/details. No driving home - Orders placed, protocoled. Answered all questions. -- documented in this encounter Plan of Treatment Name Type Priority Associated Diagnoses Order S chedule IR ANGIOGRAM CEREBRAL IMAGING Routine Bilateral carotid a rtery Expected: 08/17/2020, stenosis Expires: 08/17/2021 Arterial occlusive disease Antiplatelet or antithrombotic long-term use Chronic arterial ischemic stroke COVID-19 (ID NOW RAPID LAB Routine Bilateral carotid artery Expected: 08/17/2020, TESTING) stenosis Expires: 08/17/2021 Arterial occlusive disease Antiplatelet or antithrombotic long-term use Chronic arterial ischemic stroke VERIFYNOW ASPIRIN TEST LAB Routine Bilateral carotid artery 1 Occurrences stenosis starting 08/17/2020 Arterial occlusive until 05/2021 disease Antiplatelet or antithrombotic long-term use Chronic arterial ischemic stroke VERIFYNOW PRUTEST LAB Routine Bilateral carotid arter y 1 Occurrences (P2Y12) stenosis starting 08/17/2020 Arterial occlusive until 05/2021 disease Antiplatelet or antithrombotic long-term use Chronic arterial ischemic stroke PROTHROMBIN TIME / INR LAB Routine Bilateral carotid artery 1 Occurrences stenosis starting 08/17/2020 Arterial occlusive until 05/2021 disease Antiplatelet or antithrombotic long-term use Chronic arterial ischemic stroke CBC WITH DIFF LAB Routine Bilateral carotid artery 1 Occurrences stenosis starting 08/17/2020 Arterial occlusive until 05/2021 disease Antiplatelet or antithrombotic long-term use Chronic arterial ischemic stroke BASIC METABOLIC PANEL LAB Routine Bilateral carotid a rtery 1 Occurrences (NA, K, CL, CO2, stenosis starting 08/17/2020 GLUCOSE, BUN, Arterial occlusive until CREATININE, CA) disease Antiplatelet or antithrombotic long-term use Chronic arterial ischemic stroke Health Maintenance Due Date Last Done Comments PNEUMOCOCCAL 0-64 YEARS COMBINED SERIES ( of - 1964 PPSV23) DTaP,Tdap,and Td Vaccines [...] filedocumented in this encounter Visit Diagnoses Diagnosis Bilateral carotid artery stenosis - Prim keanu Occlusion and stenosis of multiple and b ilateral precerebral arteries without mention of cerebral infarction Arterial occlusive disease Embolism and thrombosis of unspecified a rtery Antiplatelet or antithrombotic long-term use Encounter for long-term (current) use of antiplatelets/antithrombotics Chronic arterial ischemic stroke Transient ischemic attack (TIA), and cer ebral infarction without residual deficits documented in this encounter Insurance Payer Benefit Plan / Subscriber ID Effective Phone Address T ype Group Dates [employer] [id number] 2019-Andree [place] [id number] [place] [address] documented as of this encounter
--- OUTSIDE RECORDS SUMMARY | 2020-09-05 09:35 | XMS REPORT | Summary of Care ---
:1960 Author Organization [facility] Address [address] [place] [address] Care Team Providers Name Role Phone Dianelys Espinoza (Physicians Punch Molder) [phone] Eunice Espinoza Primary Care Provider Eunice Verdugo RN Primary Nurse Unavailable Reason for Visit Reason Comments Orders Encounter Details Date Type Department Care Team Description 08/16/2020 Telephone [facility] Transplant-[facility] [address] [facility], [address] [facility] [place] [phone] Allergies No Known Allergiesdocumented as of this encounter (statuses as of 08/18/2020) Medications Medication Sig Dispensed Refills Start Date [...] 81 mg by mouth 0 Active daily. [place]-3 Fatty Acids (FISH OIL Take by mouth. 0 Active CONCENTRATE) 1,000 mg Cap lisinopril 10 mg tablet Take 4 tablets by 0 10/05/20 19 Active mouth daily. 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 elephone Encounter - Julita Staley - 08/16/2020 3:43 PM CDTPatient calling state she is needing a new order for the CT abdomen, the last one is . Call back [phone] documented in this encounter Plan of Treatment Date Type Specialty Care Team Description 09/19/2020 Laboratory Only Clinical Medical Only, Adc Test Laboratory 09/23/2020 Appointment Radiology Shawna Gaffney PA-C [address] [place], [place] [address] Health Maintenance Due Date Last Done Comments [...] ype Group Dates [employer] [id number] 2019-Andree [address] [place] [address] [place] [address] documented as of this encounter
--- OUTSIDE RECORDS SUMMARY | 2020-09-05 09:35 | XMS REPORT ---
:1960 Author Organization [facility] Address [address] [facility], 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 Problem Hyperlipidemia, E78.5 Active 20605279 unspecified hyperlipidemia type Problem Peripheral edema R60.9 Active 53099838 Problem Umbilical hernia K42.9 Active 493337933 without obstruction and without gangrene Problem Bilateral carotid I65.23 Active 457190719 artery stenosis Problem Unspecified cirrhosis K74.60 Active 29957974 of liver Problem History of CVA Z86.73 Active 130075270 Multip (cerebrovascular le. accident) Problem Pain in left shoulder M25.512 Active 89065845 Problem Pain in right M25.511 Active 24690849 shoulder Problem Pain in left knee M25.562 Active 13856636714930 2 ALLERGIES No Known Allergies ENCOUNTERS from 1960 to 2020-08-29 [facility]counter [facility] [address] [facility] [address] Aug, Dianelys [place] [address] IMMUNIZATIONS No Information SOCIAL HISTORY Tobacco Use: [...] REASON FOR REFERRAL No Information VITAL SIGNS No information MEDICATIONS Medication SIG (Take, Route, Start Date [...] Information RESULTS No Results REASON FOR VISIT neuro referral MEDICAL (GENERAL) HISTORY Type Description Date Medical History HTN (hypertension) Medical History Stroke Surgical History No Surgical history information Goals Section No Information Health Concerns No Information MEDICAL EQUIPMENT No Information MENTAL STATUS No Information FUNCTIONAL STATUS No Information ASSESSMENTS No Information PLAN OF TREATMENT Next Appt Details Provider Name:Dianelys Espinoza, 2021-02- 3 01:00:00 PM, [address] [facility], [address], [place], [address], Insurance Providers Payer Name Payer Payer Insured Patient Coverage Coverage Address Phone Name Relationship to Start Date End Date Insured [employer] [address] [address] [phone] Fraker,Will self (Medicaid) [address] [address]
--- OUTSIDE RECORDS SUMMARY | 2020-09-05 09:36 | XMS REPORT | Summary of Care ---
:1960 Author Organization [facility] Address [address] [place] [address] Care Team Providers Name Role Phone Dianelys Espinoza (Physicians Pile Operator) [phone] Eunice Espinoza Primary Care Provider Eunice Verdugo RN Primary Nurse Unavailable Reason for Referral Radiology Services (Routine) Status Reason Specialty Diagnoses / Referred By Referred To Procedures Contact Contact New Request Diagnostic Diagnoses Left shoulder pain, unspecified chronicity Liam Gomez Radiology Procedures XR SHOULDER <2 VW LEFT MD Eunice [address] [place] [address] Radiology Services (Routine) Status Reason Specialty Diagnoses / Referred By Referred To Procedures Contact Contact New Request Diagnostic Diagnoses Left knee pain, unspecified chronicity Liam Gomez Radiology Procedures XR KNEE 3 VW LEFT MD Eunice [address] [place] [address] [place] [address] Reason for Visit Reason Comments Xray Left knee and Left Shoulder orders Encounter Details Date Type Department Care Team Description 09/02/2020 Telephone [facility] Orthopaedic Liam Gomez X ray (Left knee and Surgery- Will Dawson MD Left Shoulder orders ) [address] [place] [address] [place] [address] [place] [address] [place], [place] [phone] [address] Allergies No Known Allergiesdocumented as of this encounter (statuses as of 09/02/2020) Medications Medication Sig Dispensed Refills Start Date [...] 81 mg by mouth 0 Active daily. [place]-3 Fatty Acids (FISH OIL Take by mouth. 0 Active CONCENTRATE) 1,000 mg Cap lisinopril 10 mg tablet Take 4 tablets by 0 10/05/20 19 Active mouth daily. 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 ( HCV) 09/01/2016 Elevated liver enzymes 01/27/2016 CVA (cerebral infarction) 01/27/2016 HTN (hypertension) 01/27/2016 HLD (hyperlipidemia) 01/27/2016 documented as of this encounter (statuses as of 09/02/2020) Social History Tobacco Use Types Packs/Day Years Used Date Never Smoker Cigarettes 1 Smokeless Tobacco: Never Used Comments: Has smoked since 2000 Alcohol Use Drinks/Week oz/Week Comments Not Currently 0 Standard drinks or equivalent 0.0 Sober since 2019 Sex Assigned at Date Recorded Not on file COVID-19 Exposure Response Date Recorded In the last month, have you been in contact with No / Unsure 08/03/2020 11:16 AM CDT someone who was confirmed or suspected to have Coronavirus / COVID-19? documented as of this encounter Last Filed Vital Signs Not on filedocumented in this encounter Miscellaneous Notes Telephone Encounter - Samanta Sharif - 09/02/2020 8:23 AM CDTNo in-office spa technician. Samanta Sharif 09/02/2020 8:25 AM documented in this encounter Plan of Treatment Date Type Specialty Care Team Description 09/02/2020 Office Visit Orthopedic Surgery Petty Gomez MD [address] [place] [phone] 09/19/2020 Laboratory Only Clinical Medical Only, Adc Test Laboratory 09/23/2020 Appointment Radiology Shawna Gaffney PA-C [address] [place], [place] [address] Name Type Priority Associated Diagnoses Order S chedule XR KNEE 3 VW LEFT IMAGING Routine Left knee pain, Expecte d: 09/02/2020, unspecified chronicity Expir es: 09/02/2021 XR SHOULDER <2 VW LEFT IMAGING Routine Left shoulder pain , Expected: 09/02/2020, unspecified chronicity Expir es: 09/02/2021 Health Maintenance Due Date Last Done Comments [...] filedocumented in this encounter Visit Diagnoses Diagnosis Left knee pain, unspecified chronicity - Primary Left shoulder pain, unspecified chronici ty documented in this encounter Insurance Payer Benefit Plan / Subscriber ID Effective Phone Address T ype Group Dates [employer] [id number] 2019-Andree [place] [address] [place] [address] documented as of this encounter
--- OUTSIDE RECORDS SUMMARY | 2020-09-05 09:36 | XMS REPORT | Summary of Care ---
:1960 Author Organization [facility] Address [address] [place] [address] Care Team Providers Name Role Phone Dianelys Espinoza (Physicians Results Technician) [phone] Eunice Espinoza Primary Care Provider Eunice Verdugo RN Primary Nurse Unavailable Reason for Referral Radiology Services (Routine) Status Reason Specialty Diagnoses / Referred By Referred To Procedures Contact Contact Closed Diagnostic Diagnoses Left shoulder pain, unspecified chronicity Liam Gomez Radiology Procedures XR SHOULDER <2 VW LEFT L, [address] [place] [address] Radiology Services (Routine) Status Reason Specialty Diagnoses / Referred By Referred To Procedures Contact Contact Closed Diagnostic Diagnoses Left knee pain, unspecified chronicity Liam Gomez Radiology Procedures XR KNEE 3 VW LEFT MD Eunice [address] [place] [address] Reason for Visit Radiology Services (Routine) Status Reason Specialty Diagnoses / Referred By Referred To Procedures Contact Contact Closed Diagnostic Diagnoses Left shoulder pain, unspecified chronicity Liam Gomez Radiology Procedures XR SHOULDER <2 VW LEFT [place] [address] [place] [address] Encounter Details Date Type Department Care Team Description 09/02/2020 Hospital Encounter [facility] Acacia Gomez Arrived [facility] [address] [place] [address] Dr sweeney [address] [place] [address] [facility] C [phone] [place] [address] Allergies No Known Allergiesdocumented as of this encounter (statuses as of 09/03/2020) Medications Medication Sig Dispensed Refills Start Date [...] 81 mg by mouth 0 Active daily. Durand-3 Fatty Acids (FISH OIL Take by mouth. 0 Active CONCENTRATE) 1,000 mg Cap lisinopril 10 mg tablet Take 4 tablets by 0 10/05/20 19 Active mouth daily. 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 documented as of this encounter Last Filed Vital Signs Not on filedocumented in this encounter Plan of Treatment Date Type Specialty Care Team Description 09/07/2020 Office Visit Orthopedic Surgery Petty Gomez MD [address] [place] [address] 09/19/2020 Laboratory Only Clinical Medical Only, Adc Test Laboratory 09/23/2020 Appointment Radiology Shawna Gaffney PA-C [address] [place] [address] Health Maintenance Due Date Last [...] Name Priority Date/Time Associated Diagnosis Comme nts XR SHOULDER <2 VW Routine 09/02/2020 12:47 PM Left shoulder pa in, Results for this LEFT CDT unspecified procedure are i n chronicity the results section. XR KNEE 3 VW LEFT Routine 09/02/2020 12:47 PM Left knee pain, Results for this CDT unspecified procedure are i n chronicity the results section. documented in this encounter Results XR SHOULDER <2 VW LEFT (09/02/2020 12:47 PM CDT) Specimen Impressions Performed At PACS/VR/DOSE Chronic left clavicle fracture with grad e 3 AC joint separation. Severe glenohumeral joint osteoarthrosis . Severe knee osteoarthrosis. No acute bony abnormality is present. Narrative Performed At EXAM: PACS/VR/DOSE XR SHOULDER <2 VW LEFT, EXAM: XR KNEE 3 VW LEFT HISTORY: left shoulder pain COMPARISON: None FINDINGS: Imaging of the left shoulder demonstrate s chronic fragmentation at the level of the distal clavicle with elevat ion of the clavicle by approximately one shaft width diameter r elative to the acromion. Severe joint space narrowing, subchondral scler osis and marginal osteophyte formation involve the glenohumeral joint . Calcified plaque outlines the aortic arch. Images of the left knee demonstrate severe medial comp artment joint space loss. Tricompartmental subchondral scler osis with marginal osteophyte formation and degenerative tibial spine hypertrophy is present. No acute bony abnormality is present. No effusion is seen. Vasc ular calcifications are present. Procedure Note [facility], Radiant Results Inft User - 2019 1:37 PM CDT EXAM: XR SHOULDER <2 VW LEFT, EXAM: XR KNEE 3 VW LEFT HISTORY: left shoulder pain COMPARISON: None FINDINGS: Imaging of the left shoulder demonstrate s chronic fragmentation at the level of the distal clavicle with elevat ion of the clavicle by approximately one shaft width diameter r elative to the acromion. Severe joint space narrowing, subchondral scler osis and marginal osteophyte formation involve the glenohumeral joint . Calcified plaque outlines the aortic arch. Images of the left knee demonstrate raman re medial compartment joint space loss. Tricompartmental subchondral scler osis with marginal osteophyte formation and degenerative tibial spine hypertrophy is present. No acute bony abnormality is present. No effusion is seen. Vascular calcifications are present. IMPRESSION Chronic left clavicle fracture with grad e 3 AC joint separation. Severe glenohumeral joint osteoarthrosis . Severe knee osteoarthrosis. No acute bony abnormality is present. Performing Organization Address City/State/Zipcode Phone Number PACS/VR/DOSE XR KNEE 3 VW LEFT (09/02/2020 12:47 PM CDT) Specimen Impressions Performed At PACS/VR/DOSE Chronic left clavicle fracture with grad e 3 AC joint separation. Severe glenohumeral joint osteoarthrosis . Severe knee osteoarthrosis. No acute bony abnormality is present. Narrative Performed At EXAM: PACS/VR/DOSE XR SHOULDER <2 VW LEFT, EXAM: XR KNEE 3 VW LEFT HISTORY: left shoulder pain COMPARISON: None FINDINGS: Imaging of the left shoulder demonstrate s chronic fragmentation at the level of the distal clavicle with elevat ion of the clavicle by approximately one shaft width diameter r elative to the acromion. Severe joint space narrowing, subchondral scler osis and marginal osteophyte formation involve the glenohumeral joint . Calcified plaque outlines the aortic arch. Images of the left knee demonstrate severe medial comp artment joint space loss. Tricompartmental subchondral scler osis with marginal osteophyte formation and degenerative tibial spine hypertrophy is present. No acute bony abnormality is present. No effusion is seen. Vasc ular calcifications are present. Procedure Note [facility], Radiant Results Inft User - 2019 1:37 PM CDT EXAM: XR SHOULDER <2 VW LEFT, EXAM: XR KNEE 3 VW LEFT HISTORY: left shoulder pain COMPARISON: None FINDINGS: Imaging of the left shoulder demonstrate s chronic fragmentation at the level of the distal clavicle with elevat ion of the clavicle by approximately one shaft width diameter r elative to the acromion. Severe joint space narrowing, subchondral scler osis and marginal osteophyte formation involve the glenohumeral joint . Calcified plaque outlines the aortic arch. Images of the left knee demonstrate raman re medial compartment joint space loss. Tricompartmental subchondral scler osis with marginal osteophyte formation and degenerative tibial spine hypertrophy is present. No acute bony abnormality is present. No effusion is seen. Vascular calcifications are present. IMPRESSION Chronic left clavicle fracture with grad e 3 AC joint separation. Severe glenohumeral joint osteoarthrosis . Severe knee osteoarthrosis. No acute bony abnormality is present. Performing Organization Address City/State/Zipcode Phone Number PACS/VR/DOSE documented in this encounter Visit Diagnoses Diagnosis Left knee pain, unspecified chronicity Left shoulder pain, unspecified chronici ty documented in this encounter Insurance Payer Benefit Plan / Subscriber ID Effective Phone Address T e Group Dates [employer] [id number] 2019-Andree [place] [id number] [place] [address] (Home) [place] [address] documented as of this encounter
[2020-09-05 10:12] VITALS: TEMP 97.4; BMI 31.3
--- NOTE | 2020-09-05 11:17 | RAD REPORT ---
EXAM DESCRIPTION: US - Paracentesis Proc Guidance - 09/05/2020 10:37 am CLINICAL HISTORY: ASCITES Ascites COMPARISON: Paracentesis Proc Guidance dated 09/11/2019 FINDINGS: Informed consent was obtained and time-out was performed. Patient's abdomen was prepped and draped in the usual sterile fashion. 1% lidocaine was used for loca l anesthetic purposes. A small skin incision was made. A paracentesis catheter was guided into the peroneal cavity under son ographic guidance. A small amount of fluid retained for possible lab studies. A large volume paracentesis was performed. The patient tolerated the procedure well. IMPRESSION: Successful ultrasound-guided paracentesis.
[2020-09-05 13:18] LABS: Appearance SLT. TURBID (CLEAR); Body Fluid Source OTHER; Color of fluid Orange (COLORLESS)
[2020-09-05 13:19] LABS: Body Fluid WBC 535 /mm^3
[2020-09-05 14:32] VITALS: O2SAT 96
[2020-09-05 14:34] VITALS: BP 185/84
== END 2020-09-05 11:15 | disposition home or self-care (01) ==
LOC: DS 08:47
PROVIDERS: ATTEND Internal Medicine Gastroenterology
DX: R18.8 Other ascites (principal); K74.60 Unspecified cirrhosis of liver; R16.1 Splenomegaly, not elsewhere classified; R94.5 Abnormal results of liver function studies
CPT/HCPCS: 36415; 49083; 88108; 88305; 89050

== ENCOUNTER 2020-12-16 23:11 | Inpatient (IN) | payer OTHER ==
--- OUTSIDE RECORDS SUMMARY | 2020-12-16 23:14 | XMS REPORT | Clinical Summary ---
:[address] [facility] Address [facility] [place] [address] Care Team Providers Name Role Phone Unavailable Primary Care Provider Unavailable Allergies No Known Active Allergies Medications No known medications Active Problems Problem Noted Date Confusion 05/23/2018 Cerebral microvascular disease Social History Tobacco Use Types Packs/Day Years Used Date Current Every Day Smoker 1 Alcohol Use Drinks/Week oz/Week Comments Yes quit Sex Assigned at Date Recorded Not on file Last Filed Vital Signs Not on file Plan of Treatment Health Maintenance Due Date Last Done Comments FIT Colorectal Cancer Scrn 2008 IMM Influenza Seasonal Aug to January (>/= 19 yrs) 08/11/2020 Results Not on fileafter 12/16/2019 Insurance Payer Benefit Plan / Subscriber ID Effective Dates Phone Addre ss Type Group [facility] SELF-PAY [id number] 2018-Andree [phone] [id number] [employer] SELF-PAY U[address]CREENED nt [address] [place] [address]
--- OUTSIDE RECORDS SUMMARY | 2020-12-16 23:16 | XMS REPORT | Continuity of Care Document ---
:1960 Author Organization [employer] Care Team Providers Name Role Phone [employer] Unavailable Un available Problems Problem Status Onset Classification Date Comments Sourc e Date Reported Cerebral 01/25/2019 [facility] infarction due to 8 [place] dical unspecified Center occlusion or stenosis of bilateral carotid arteries ISCHEMIC CVA Active [facility] ACUTE BILAT Active [facility] WATERSHED 8 Medical INFARCTION Center Cerebral 01/25/2019 [facility] infarction due to Me dical unspecified Center occlusion or stenosis of bilateral middle arteries Hemiplegia, 01/25/2019 Ivis agrawal unspecified Medical affecting left Cente r nondominant side Hypertensive 01/25/2019 [facility] emergency Medical Center Essential 01/25/2019 [facility] (primary) Medical hypertension Center Unspecified viral 01/25/2019 [facility] hepatitis C Medical without hepatic Cent er coma Unspecified 01/25/2019 Ivis agrawal cirrhosis of Medical liver Center NIHSS score 5 01/25/2019 [facility] Hyper[facility], [facility]2019 [facility] Facial weakness 01/25/2019 [facility] Nicotine 01/25/2019 [facility] dependence, Medical cigarettes, Center uncomplicated Personal history 01/25/2019 [facility] of transient Medical ischemic attack Cent er (TIA), and cerebral infarction without residual deficits Patient's other 01/25/2019 [facility] noncompliance Medica l with medication Cent er regimen OTHER CEREBRAL Active [facility] INFARCTION Medical Center Medications Medication Details Route Status Patient Ordering Order Source Instructions Provider Date amLODIPine 5 mg 5 mg = 1 tab, Active [facility] oral tablet PO, Daily, # 018 Medical 30 tab, 2 Center Refill(s) lisinopril 20 mg 20 mg = 1 Active [facility] oral tablet tab, PO, 018 Medical Daily, # 30 Center tab, 2 Refill(s) clopidogrel 75 75 mg = 1 Active [facility] mg oral tablet tab, PO, 018 [...] Notes: (Same [place]: Prinivil, [address] [place] [address] Zestril) [place] Docusate Sodium Notes: (Same No Longer [facility] 50 MG / as Senokot-S) Active [address] [place] [address] sennosides, ASSISTED Equiv. to Cente r 8.6 MG Oral Anai-Colace. Tablet Tramadol Notes: Not to [place]er [place] exceed Active [facility] 400mg/day. Center (Same As: [facility]) Midazolam 2 mg, Route: Inactive [facility] IVP, ONCE, 018 Medical Dosing Weight Center 88.636, kg, Start date: 07/07/18 13:04:00 CDT, Stop date: 07/07/18 13:04:00 CDT Fentanyl 100 Inactive [facility] microgram, 018 Medical Route: IV, Center ONCE, Dosing Weight 88.636, kg, Start date: 07/07/18 13:04:00 CDT, Stop date: 07/07/18 13:04:00 CDT Omnipaque 300 150 mL, Inactive [facility] Route: 018 Medical INTRAARTERIAL Center , Dosing Weight 88.636, kg, ONCE, Start date: 07/07/18 13:04:00 CDT, Stop date: 07/07/18 13:04:00 CDT captopril Notes: Give No Longer [facility] on empty Active [address] [place] [address] stomach. 1 Center hour before meal. (Same As: Capoten) remove patch Notes: Remove No Longer [facility] patch 12 Active 018 Medical hours after Center application each day. remove patch Notes: Remove No Longer [facility] old patch Active 018 Medical before Center application of new patch. WASTE: F/P - P Waste Black; E - P Waste Black Aspirin 325 MG Notes: Take No Longer [facility] Enteric Coated with food. Active 018 Medica [...] CDT Tylenol Notes: Do not No Longer [facility] exceed 4 Active 018 Medical gm/day. Center (Same as: Tylenol) Spironolactone 25 mg = 2 [place] tab, PO, Active 018 Medical Daily, # 60 Center tab, 0 Refill(s) Furosemide Daily, 0 No Longer [facility] Refill(s) Active [address] [place] [address] amLODIPine 10 mg 20 mg = 2 No Longer [facility] oral tablet tab, PO, QAM, Active 018 Medica l 0 Refill(s) Center Nicotine Notes: (Same No Longer [facility] as: Habitrol) Active 018 Medical "Remove old Center patch before application of new patch" WASTE: F/P - P Waste Black; E - P Waste Black Plavix Notes: (Same No Longer [facility] As: Plavix) Active [address] [place] [address] Aspirin 81 MG Notes: Do not No Longer [facility] Enteric Coated crush or Active 018 Medical Tablet chew. (Same Center As: Ecotrin) Saline Flush Notes: (Same [place] Longer [place] 0.9% as: BD Active 018 Medical Posiflush) Center atorvastatin Notes: (Same [place] Longer [place] As: Lipitor) Active 018 [facility] sennosides, ASSISTED Notes: (Same No Longer [place] as: Senokot) Active 018 Medical Center Plavix Notes: ( Same Inactive [facility] as: Plavix) 018 Medical Center Aspirin 325 MG Notes: Take [place]active [place] Oral Tablet with food. 018 Medical Center heparin Notes: No Longer [facility] porcine Active 018 [facility] heparin Center iodixanol 100 mL, Inactive [facility] Route: IVP, 018 Medical Drug Form: [place] SOLN, Dosing Weight 88.636, kg, ONCALL, STAT, [...] Active 018 Medical Drug form: Center INJ, Q15Min, Dosing Weight 88.636, kg, PRN [...] Magnesium Lvl 2.3 1.8 - 2.4 07/08 [facility] CHEM PANEL Phosphorus 3.8 2.5 - 4.5 07/08 [facility] CHEM PANEL eGFR 106 07/08 [...] Potassium Lvl 3.7 3.5 - 5.1 07/08 [facility] CHEM PANEL Sodium Lvl 140 135 - 145 07/08 [facility] CHEM PANEL Creatinine 0.65 0.50 - 07/08 [facility] Lvl 1.40 [facility] CHEM PANEL Chloride Lvl 108 95 - 109 07/08 [facility] CHEM PANEL Calcium Lvl 8.1 8.5 - 10.5 07/08 [facility] CHEM PANEL CO2 24 24 - 32 07/08 [facility]2017 [facility] CHEM PANEL BUN 12 7 - 22 07/08 [facility]2017 [facility] CHEM PANEL Glucose Lvl 116 70 - 99 07/08 [facility] CHEM PANEL AGAP 11.7 10.0 - 07/08 [place] 20.0 [facility] HEMATOLOGY Basophils # 0.1 0.0 - 0.2 07/08 [facility] HEMATOLOGY Eosinophils # 0.2 0.0 - 0.5 07/08 [facility] HEMATOLOGY Monocytes # 0.5 0.0 - 0.8 07/08 [facility] HEMATOLOGY Lymphocytes # 1.4 1.0 - 5.5 07/08 [facility] HEMATOLOGY Neutrophils # 4.3 1.5 - 8.1 07/08 [facility] HEMATOLOGY Monocytes 7.7 2.0 - 12.0 07/08 [facility] HEMATOLOGY Lymphocytes 21.2 20.0 - 07/08 [place] 40.0 [facility] HEMATOLOGY Eosinophils 2.4 0.0 - 4.0 07/08 [facility] HEMATOLOGY Basophils 1.3 0.0 - 1.0 07/08 [facility] HEMATOLOGY Segs 67.4 45.0 - 07/08 [place] 75.0 [facility] HEMATOLOGY Hct 41.7 42.0 - 07/08 [place] 54.0 [facility] HEMATOLOGY MCV 91.7 80.0 - 07/08 [place] 94.0 [facility] HEMATOLOGY WBC 6.4 3.7 - 10.4 07/08 [facility] HEMATOLOGY MCHC 35.6 32.0 - 07/08 [place] 36.0 [facility] HEMATOLOGY RBC 4.54 4.70 - 07/08 [place] 6.10 [facility] HEMATOLOGY Hgb 14.8 14.0 - 07/08 [place] 18.0 [facility] HEMATOLOGY MPV 8.1 7.4 - 10.4 07/08 [facility] HEMATOLOGY Platelet 134 133 - 450 07/08 [facility] HEMATOLOGY RDW 13.9 11.5 - 07/08 [place] 14.5 [facility] HEMATOLOGY MCH 32.6 27.0 - 07/08 [place] 31.0 [facility] PARATHYROID Ca Ion WB 1.08 1.05 - 07/08 [place] PROFILE 12.05 [facility] PARATHYROID Ca Norm WB 1.10 1.05 - 07/08 [place] PROFILE 12.05 [facility] BLOOD BANK ABO/Rh A POS 07/07 [place] RESULTS [facility] BLOOD BANK Antibody Scrn Negative 07/07 [facility] RESULTS (8/27/18 12:01 AM) [facility] CHEM PANEL Phosphorus 2.6 2.5 - 4.5 07/07 [facility] CHEM PANEL Magnesium Lvl 2.2 1.8 - 2.4 07/07 [facility] ELECTROLYTE AGAP 14.0 10.0 - 07/07 [facility] S 20.0 [facility] ELECTROLYTE eGFR 97 07/07 Result [facility] Comment: The Medical eGFR is Center [...] 4.0 3.5 - 5.1 07/07 [place] [facility] ELECTROLYTE Chloride Lvl 110 95 - 109 07/07 [place] [facility] ELECTROLYTE BUN 17 7 - 22 07/07 [facility] ELECTROLYTE Sodium Lvl 142 135 - 145 07/07 [place] [facility] ELECTROLYTE Glucose Lvl 97 70 - 99 07/07 [facility] ELECTROLYTE Creatinine 0.82 0.50 - 07/07 [facility] S Lvl 1.40 [facility] ELECTROLYTE CO2 22 24 - 32 07/07 [facility] ELECTROLYTE Calcium Lvl 8.0 8.5 - 10.5 07/07 [facility] HEMATOLOGY Lymphocytes 23.2 20.0 - 07/07 [place] 40.0 [facility] HEMATOLOGY Segs 64.9 45.0 - 07/07 [facility] [place] 75.0 [facility] HEMATOLOGY Eosinophils # 0.2 0.0 - 0.5 07/07 [facility] HEMATOLOGY Basophils # 0.1 0.0 - 0.2 07/07 [facility] HEMATOLOGY Basophils 1.3 0.0 - 1.0 07/07 [facility] HEMATOLOGY Neutrophils # 4.0 1.5 - 8.1 07/07 [facility] HEMATOLOGY Monocytes 8.0 2.0 - 12.0 07/07 [facility] HEMATOLOGY Eosinophils 2.6 0.0 - 4.0 07/07 [facility] HEMATOLOGY Lymphocytes # 1.4 1.0 - 5.5 07/07 [facility] HEMATOLOGY Monocytes # 0.5 0.0 - 0.8 07/07 [facility] HEMATOLOGY Platelet 128 133 - 450 07/07 [facility] HEMATOLOGY MPV 8.3 7.4 - 10.4 07/07 [facility] HEMATOLOGY RDW 14.2 11.5 - 07/07 [place] 14.5 [facility] HEMATOLOGY MCV 93.2 80.0 - 07/07 [place] 94.0 [facility] HEMATOLOGY MCH 32.3 27.0 - 07/07 31.0 [facility] HEMATOLOGY Hgb 14.6 14.0 - 07/07 18.0 [facility] HEMATOLOGY Hct 42.2 42.0 - 07/07 54.0 [facility] HEMATOLOGY MCHC 34.7 32.0 - 07/07 [place] 36.0 [facility] HEMATOLOGY RBC 4.53 4.70 - 07/07 [place] 6.10 [facility] HEMATOLOGY WBC 6.1 3.7 - 10.4 07/07 [facility] HEMATOLOGY PT 12.3 12.0 - 07/07 14.7 [facility] HEMATOLOGY PTT 26.7 22.9 - 07/07 [place] 35.8 [facility] HEMATOLOGY INR 0.91 0.85 - 07/07 [place] 1.17 [facility] HEMATOLOGY Ly30 3.2 0.0 - 7.5 07/07 [facility] HEMATOLOGY Coag Index 1.0 -3.0-3.0 - 07/07 [place] 3.0 [facility] HEMATOLOGY Max Amp 55.2 50.0 - 07/07 [facility] 70.0 [facility] HEMATOLOGY G-value 6.2 4.5 - 11.0 07/[address] HEMATOLOGY R-time 3.8 5.0 - 10.0 07/[address] HEMATOLOGY K-time 1.7 1.0 - 3.0 07/[address] HEMATOLOGY Angle 67.9 53.0 - 07/07 [facility] 72.0 [facility] HEMATOLOGY TEG Data See Note 07/07 [facility] (07/07/18 12:01 AM) /2017 [facility] HEMATOLOGY TEG Interp Thrombelas 07/07 [facility] s tograph [facility] show shortened value of R. This finding is suggestive of enzymatic hypercoagu lation. CPT:57875 PARATHYROID Ca Norm WB 1.06 1.05 - 07/07 [facility] PROFILE . [facility] PARATHYROID Ca Ion WB 1.07 1.05 - 07/07 [facility] PROFILE . [facility] CHEM PANEL Lactic Acid 1.9 0.5 - 2.2 07/06 [facility] l [facility] CHEM PANEL Magnesium Lvl 2.1 1.8 - 2.4 07/06 [facility] [address] [place] [address] CHEM PANEL Phosphorus 2.8 2.5 - 4.5 07/[address] CHEM PANEL A/G Ratio 0.7 0.7 - 1.6 07/[address] CHEM PANEL Globulin 3.5 2.7 - 4.2 07/[address] CHEM PANEL Bili Total 0.7 0.2 - 1.3 07/[address] CHEM PANEL Bili Indirect 0.5 0.0 - 1.0 07/[address] CHEM PANEL Total Protein 5.9 6.4 - 8.4 07/[address] CHEM PANEL ALT 95 0 - 65 07/[address] CHEM PANEL Albumin Lvl 2.4 3.5 - 5.0 07/06 [facility] CHEM PANEL Alk Phos 102 39 - 136 07/[address] CHEM PANEL AST 87 0 - 37 07/06 [facility] CHEM PANEL Bili Direct 0.2 0.0 - 0.3 07/06 [facility] ELECTROLYTE AGAP 11.7 10.0 - 07/06 [facility] S 20.0 [facility] ELECTROLYTE eGFR 105 07/06 [facility] Comment: The Medical eGFR is Center [...] ELECTROLYTE BUN 17 7 - 22 07/06 [facility] ELECTROLYTE Creatinine 0.68 0.50 - 07/06 [facility] Lvl 1.40 [facility] ELECTROLYTE Potassium Lvl 3.7 3.5 - 5.1 07/06 [place] [facility] ELECTROLYTE Sodium Lvl 141 135 - 145 07/06 [facility] ELECTROLYTE CO2 25 24 - 32 07/06 [facility] 2017 [facility] ELECTROLYTE Glucose Lvl 125 70 - 99 07/06 [facility] ELECTROLYTE Chloride Lvl 108 95 - 109 07/06 [facility] as [facility] ELECTROLYTE Calcium Lvl 7.8 8.5 - 10.5 07/06 [place] [facility] HEMATOLOGY RDW 13.7 11.5 - 07/06 [facility] 14. [facility] HEMATOLOGY MCHC 35.5 32.0 - 07/06 [facility] 36.0 [facility] HEMATOLOGY Platelet 127 133 - 450 07/06 [facility]2017 [facility] HEMATOLOGY MPV 8.2 7.4 - 10.4 07/06 [facility] HEMATOLOGY WBC 6.3 3.7 - 10.4 07/06 [facility] HEMATOLOGY RBC 4.61 4.70 - 07/06 [place] 6.10 [facility] HEMATOLOGY Hgb 14.9 14.0 - 07/06 [place] 18.0 [facility] HEMATOLOGY Hct 42.1 42.0 - 07/06 [place] 54.0 [facility] HEMATOLOGY MCV 91.2 80.0 - 07/06 [place] 94.0 [facility] HEMATOLOGY MCH 32.4 27.0 - 07/06 [place] 31.0 [facility] HEMATOLOGY Lymphocytes # 1.2 1.0 - 5.5 07/06 [facility] HEMATOLOGY Monocytes # 0.6 0.0 - 0.8 07/06 [facility] HEMATOLOGY Eosinophils # 0.2 0.0 - 0.5 07/06 [facility] HEMATOLOGY Basophils # 0.1 0.0 - 0.2 07/06 [facility] HEMATOLOGY Eosinophils 2.4 0.0 - 4.0 07/06 [facility] HEMATOLOGY Neutrophils # 4.3 1.5 - 8.1 07/06 [facility] HEMATOLOGY Basophils 1.0 0.0 - 1.0 07/06 [facility] HEMATOLOGY Segs 68.6 45.0 - 07/06 [place] 75.0 [facility] HEMATOLOGY Lymphocytes 18.8 20.0 - 07/06 [place] 40.0 [facility] HEMATOLOGY Monocytes 9.2 2.0 - 12.0 07/06 [facility] PARATHYROID Ca Norm WB 1.10 1.05 - 07/06 [place] PROFILE 1. [facility] PARATHYROID Ca Ion WB 1.10 1.05 - 07/06 [place] PROFILE 1. [facility] LIPIDS LDL 76 <=99 mg/dL 07/04 [facility] (Calculated) [facility] LIPIDS VLDL 25 07/04 [facility] LIPIDS Trig 123 <=149 07/04 [facility] mg/dL [facility] LIPIDS HDL 52 >=61 mg/dL 07/04 [facility] LIPIDS Chol 153 <=199 07/04 [facility] mg/dL [facility] LIPIDS CHD Risk 2.94 4.00 - 07/04 [place] 7.30 /2017 [facility] SPECIAL Hgb A1C 5.0 <=5.6 % 07/04 [facility] CHEMISTRY [facility] CHEM PANEL Bili Direct 0.2 0.0 - 0.3 07/04 [facility] CHEM PANEL Alk Phos 109 39 - 136 07/04 [facility]2017 [facility] CHEM PANEL Globulin 3.8 2.7 - 4.2 07/04 [facility]2017 [facility] CHEM PANEL Bili Total 0.9 0.2 - 1.3 07/04 [facility]2017 [facility] CHEM PANEL A/G Ratio 0.7 0.7 - 1.6 07/04 [facility]2017 [facility] CHEM PANEL ALT 112 0 - 65 07/04 [facility]2017 [facility] CHEM PANEL Total Protein 6.5 6.4 - 8.4 07/04 [place] [facility] CHEM PANEL Albumin Lvl 2.7 3.5 - 5.0 07/04 [facility] CHEM PANEL AST 105 0 - 37 07/04 [facility]2017 [facility] CHEM PANEL B/C Ratio 18 6 - 25 07/[address] DRUG SCREEN U Cocaine Scr Negative [...] DRUG SCREEN UDS Note See Note 07/04 [facility] (07/04/18 3:28 PM) /2017 Medica l Center DRUG SCREEN U Opiate Scr Negative Negative 07/04 [place] *NA* /2017 [facility] (07/04/18 3:28 PM) [place] URINE AND UA RBC None Seen 0 - 2 07/04 [facility] STOOL (07/04/18 3:28 PM) /2017 [facility] URINE AND UA WBC None Seen None Seen 07/04 [facility] STOOL (07/04/18 3:28 PM) [facility] URINE AND UA Sq Epi None Seen Few 07/04 [place] STOOL (07/04/18 3:28 PM) /2017 [facility] URINE AND UA Bacteria None Seen None Seen 07/04 [place] [facility] STOOL (07/04/18 3:28 PM) /2017 [facility] URINE AND UA Bili Negative Negative 07/04 [place] STOOL *NA* [facility] (07/04/18 3:28 PM) [place] URINE AND UA Ketones Negative Negative 07/04 [facility] STOOL *NA* /2017 [facility] (07/04/18 3:28 PM) [place] URINE AND UA Spec Grav 1.025 <=1.030 07/04 [facility] STOOL /2017 [facility] URINE AND UA Turbidity Clear Clear 07/04 [facility] STOOL (07/04/18 3:28 PM) /2017 [facility] URINE AND UA 1.0 0.1 - 1.0 07/04 [facility] Urobilinogen /2017 [facility] URINE AND UA Glucose Negative Negative 07/04 [facility] STOOL (07/04/18 3:28 PM) [facility] URINE AND UA Protein >=300 Negative 07/04 [facility] STOOL mg/dL mg/dL /2017 [facility] URINE AND UA pH 6.0 5.0 - 8.0 07/04 [place] STOOL /2017 [facility] URINE AND UA Leuk Est Negative Negative 07/04 [facility] STOOL (07/04/18 3:28 PM) [facility] URINE AND UA Nitrite Negative Negative 07/04 [facility] STOOL (07/04/18 3:28 PM) [facility] URINE AND UA Blood Moderate Negative 07/04 [facility] STOOL *ABN* /2017 [facility] (07/04/18 3:28 PM) [place] URINE AND UA Color Yellow Yellow 07/04 [place] STOOL *NA* /2017 [facility] (07/04/18 3:28 PM) [place] CHEM PANEL POC 0.7 0.5 - 1.4 07/04 [facility] Creatinine /2017 [facility] CARDIAC Troponin-I <0.02 0.00 - 07/04 [facility] ENZYMES 0.40 [facility] CARDIAC Total CK 86 12 - 191 07/04 [facility] ENZYMES [facility] HEMATOLOGY Tot Cell Ct 100 07/04 [facility] /[address] [place] [address] HEMATOLOGY Plt Morph Normal 07/04 [facility] (07/04/18 2:29 PM) [facility] HEMATOLOGY RBC Morph Normal 07/04 [facility] (07/04/18 2:29 PM) [facility] HEMATOLOGY Atypical 0.0 <=0.0 % 07/04 [facility] Lymphs [facility] HEMATOLOGY Bands 0.0 0.0 - 11.0 07/04 [facility] HEMATOLOGY PTT 20.4 22.9 - 07/04 [facility] 35.8 [facility] HEMATOLOGY INR 0.93 0.85 - 07/04 [facility] 1.17 [facility] HEMATOLOGY PT 12.5 12.0 - 07/04 [facility] 14.7 [facility] Pathology Reports No Data Provided for This Section Diagnostic Reports Report Value Date Source Angiogram cervical PROCEDURE: 07/07/2018 [facility] Medi kelsey artery bilateral VR 1. Diagnostic [...] single wall micropunctur e technique and a 5-Belarusian sheath was placed. Heparin 3000 units IV was given. A 5-Belarusian Vert catheter was coaxially advanced over a [...] carotid arteries with normal filling of the hip hop performers al carotid artery branches. Course and caliber [...] SHOULDER 3 VIEWS 07/06/2018 [facility] DATE: 07/06/2018 8:27 AM CDT Cent er [...] MRI EXAM: MRI BRAIN WITHOUT CONTRAST 8 [facility] DATE: 07/04/2018 3:27 PM CDT Cent er [...] 1. Acute bilateral DIOMEDES-MCA and right MCA UROLOGIC NURSE [place] ischemic infarcts. No intracranial hemorrhage is identified. The findings are compatible with embolic ischemic infarcts. 2. Moderate cerebral atrophy and changes of chr onic small vessel ischemia. Chest 1view DX EXAM: XR CHEST 1 VIEW 07/04/2018 [facility] edical DATE: 07/04/2018 2:01 PM CDT Cent er INDICATION: -Stroke symptoms ADDITIONAL INFORMATION: Marleny f complaint -- 'Sent from [place] - 3am left arm weakness and numbness [...] BRAIN WITHOUT CONTRAST 07/04/2018 [facility] contrast CT DATE: 07/04/2018 14:54 CDT Center [...] loss Brain/Neck Stroke EXAM: CTA BRAIN 07/04/2018 [facility] perfusion CTA EXAM: CTA NECK Center EXAM: [...] dominant left vertebral artery is present. The [place] is normal. The deep cerebral [...] Comments Source Systolic (mm Hg) 131 07/08/2018 [facility] dical Center Diastolic (mm Hg) 69 07/08/2018 [facility] Center Respitory Rate 22 07/08/2018 [facility] Systolic (mm Hg) 153 07/08/[facility] Diastolic (mm Hg) 100 07/08/2018 [facility] Respitory Rate 18 07/08/2018 [facility] Respitory Rate 22 07/08/2018 [facility] Systolic (mm Hg) 138 07/08/2018 [facility] dical [place] Diastolic (mm Hg) 71 07/08/2018 [facility] Weight 88.636 07/08/2018 [facility] BMI Calculated 28.86 07/08/2018 [facility] Height 175.26 cm 07/08/2018 [facility] Temperature Oral (F) 97.8 F 07/08/2018 [facility] Temperature Oral (F) 97 F 07/08/2018 [facility] Temperature Oral (F) 98.0 F 07/08/2018 [facility] Height 177.8 cm 07/07/2018 [facility] Weight 88.636 07/07/2018 [facility] BMI Calculated 28.04 07/07/2018 [facility] Weight 88.636 07/04/2018 [facility] BMI Calculated 28.04 07/04/2018 [facility] Height 177.8 cm 07/04/2018 [facility] Heart Rate 65 07/04/2018 [facility] Heart Rate 65 07/04/2018 [facility] [place] Heart Rate 62 07/04/2018 [facility] [place] Encounters Location Location Encounter Encounter Reason Attending ADM DC Stat Source Details Type Number For Provider Date Date Visit [facility] Inpatient [id number] Kin 07/04 07/08 Jamie Abdul Umaña /2017 [facility] MNA Ambulatory [id number] [facility] 04/14 04/14 [facility] Pre-Reg [place] /2018 [facility] Procedures Procedure Code Date Perfomer Comments Source Selective catheter 66190 07/07/2018 [facility] [facility] placement, vertebral Medi kelsey artery, unilateral, Cente r with angiography of the ipsilateral vertebral circulation and all associated radiological supervision and interpretation, includes angiography of the cervicocerebral arch, when performed Assessment and Plan Assessment and Plan Date Source Extracted from:Title: Stroke Discharge Summary 07/08/2018 [facility] Author: Shasha Fan DO Date: 07/09/18 [facility] DIS[facility]GE SUMMARY Date of Admission: 07/04/18 Date of Discharge: 07/08/18 Admit Diagnosis: acute cva Discharge Diagnoses:acute BL DIOMEDES-MCA and R MCA-UROLOGIC NURSE [place] infarcts, essential hypertension, hyperlipidemia, bilateral ICA stenosis Consults Obtained:none HPI and Hospital Course: DINO CARDOZA is a 57 yo RH man with h istory of prior TIAs (versus stroke), uncontrolled HTN with medication non-compliance, active tobacco use and Hep C with cirrhosis not on AP or AC. He presented to [facility] ere vitals were notable for BP 217/114. Telestroke was initiated with NIHSS = 5 for L VF deficit, L FD, LUE distal > proximal, LLE weakness. CTH was negati ve for hemorrhage, hypodensity noted in L posterior parietal lobe. IV tPA was not administered as patient was out of window. Patient was subsequently transferred to [facility] for further management. 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 [...] Final Diagnosis: acute BL DIOMEDES-MCA and R MCA-UROLOGIC NURSE borderzone t erritory infarcts Etiology of Stroke:large [...] : You w ere admitted to the [place] [facility] service at [facility] the [facility]. You were admitted for strokes. This [...] follow up with a stroke doctor or INSTRUCTOR BUSINESS EDUCATION to prevent a future stroke. Medications: - [...] for patient to follow up with the [place] [facility] [phone] on July 21, [address] Doe - Please call your PCP to schedule an ap pointment within 2-4 weeks for post- hospitalization follow-up and management of your overall health. Please call our nurse navigator Magi ([phone]) with any questions after discharge. Please take your discharge paperwork with you to your follow-up appointments. Returning back to work/school will be addressed at your follow-up appointment. Stroke clinic address: [place] [facility] St[facility] Neurology [address] [place] [address] , [address] [place] [address] Physician Follow-Up v2 Follow-Up With [...] to the patien elba Fan DO PGY2, [facility] Neurology Attending Note I have personally evaluated the patient. I have reviewed the resident's note detailed above and have made appropriate changes to hospital course and plan above. Please do not hesitate to contact with questions Bridgett Duncan MD MPH Stroke Attending clinic [phone] office [phone] Attending Note I have personally evaluated the patient. I have reviewed the resident's note detailed above and have made appropriate changes to hospital course and plan above. Please do not hesitate to contact with questions Bridgett Duncan MD MPH Stroke Attending clinic [phone] office [phone] Extracted from:Title: Stroke Progress Note Author: Shasha [...] wh o presents as a transfer from [facility] [place] [place] with wake up symptoms of L sensory-motor [...] or numbness. He p resented to Medical [facility], where vitals were notable for BP 217/114. Telestroke was initiated with NIHSS = 5 for L VF deficit, L FD, LUE distal > proximal, LLE weakness. CTH was negative f or hemorrhage, hypodensity noted in L po sterior parietal lobe. IV tPA was not administered as patient was out of window. Patient was subsequently transferred to [facility] for further management. 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 [...] Acute bilateral DIOMEDES-MCA and right MC A UROLOGIC NURSE watershed territory ischemic infarcts. No intracranial hemorrhage [...] who presents as a transfe r from [facility] with wake up symptoms of L sensory-motor [...] brain with acute BL DIOMEDES-MCA and R MCA-UROLOGIC NURSE borderzone territory infarcts without susceptibility on GRE, s/p ASA and Plavix load for maximal medical management. 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 He p resented to [facility], where vitals were notable for BP 217/114. Telestroke was initiated with NIHSS = 5 for L VF deficit, L FD, LUE distal > proximal, LLE weakness. CTH was negative f or hemorrhage, hypodensity noted in L po sterior parietal lobe. IV tPA was not administered as patient was out of window. Patient was subsequently transferred to [facility] for further management. 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 Upon further review, no recent episodes concerni ng for hypotension including syncope or presyncope. He was loaded with ASA and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
--- OUTSIDE RECORDS SUMMARY | 2020-12-16 23:18 | XMS REPORT | Summary of Care ---
:1960 Author Organization [facility] Address [address] [place] [id number] Care Team Providers Name Role Phone Dianelys Espinoza (Physicians Legal Examiner) [phone] Eunice Espinoza Primary Care Provider Eunice Verdugo RN Primary Nurse Unavailable Reason for Visit Reason Comments Procedure Encounter Details Date Type Department Care Team Description 11/25/2020 Telephone [facility] Interventional Shawna Wells PA-C Procedure Radiology [address] [place] [address] [place], [place] [id number] Allergies No Known Allergiesdocumented as of this encounter (statuses as of 11/25/2020) Medications Medication Sig Dispensed Refills Start Date [...] 81 mg by mouth 0 Active daily. Sumner-3 Fatty Acids (FISH OIL Take by mouth. 0 Active CONCENTRATE) 1,000 mg Cap lisinopril 10 mg tablet Take 4 tablets by 0 10/05/20 19 Active mouth daily. 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) 09/01/2016 Elevated liver enzymes 01/27/2016 CVA (cerebral infarction) 01/27/2016 HTN (hypertension) 01/27/2016 HLD (hyperlipidemia) 01/27/2016 documented as of this encounter (statuses as of 11/25/2020) Social History Tobacco Use Types Packs/Day Years [...] Telephone Encounter - Shawna Gaffney PA-C - 11/25/2020 3:20 PM PERSONAL BANKING ADVISOR NeuroEndovascular Service Call from patient- request call back Call to patient- he is ready to re-schedule cerebral angiogram 12/09 at 10am, [place] location Npo after midnight Ok for am medications No driving home Answered all questions documented in this encounter Plan of Treatment [...] ype Group Dates [employer] [id number] 2019-Andree NEL[place] [id number] [place] [address] documented as of this encounter
--- OUTSIDE RECORDS SUMMARY | 2020-12-16 23:18 | XMS REPORT | Continuity of Care Document ---
:1960 Author Organization [facility] t Address [address] [place] [address] Care Team Providers Name Role Phone AYE Primary Care Physician Unavailable Jason WOOTEN, L Attending Clinician Dino [place] Attending Clinician RIVAS [...] Center Confusion Confusion Disease Active Tarik ris 05-23 Health 00:00: 00 History of History of [...] 2019-01-25 M emoria ve 13:05:53 l emergency [place] Hypertensi ve emergency 01/25/2019 [facility] [...] 2019-01-25 M emoria d 13:05:53 l cirrhosis [place] of liver Unspecifie d cirrhosis of liver 01/25/2019 [facility] NIHSS Problem 2019-01-25 Memor ia score 5 13:05:53 l NIHSS [place] score 5 01/25/2019 [facility] [...] Active [facility] Cerebral Problem 2017-2019-01-25 2019-01-25 Memoria infarction 07-17 13:05:53 13:05:53 l due to Cerebral 03:46: [...] Memori a Medicati Medicati l on on Franko agrawal Social History Social Habit Start Date Stop Date Quantity Comments Source Sex Assigned At [place] Chris alth Social History 2018-07-04 2018-07-04 [facility] martysylvia 23:48:27 23:48:27 Cigarettes smoked 2018-05-23 2018-05-23 [facility] current (pack per 00:00:00 00:00:00 day) - Reported Alcohol intake 2018-05-23 2018-05-23 Current drinker [employer] 00:00:00 00:00:00 of alcohol (finding) Alcohol Comment 2018-05-23 2018-05-23 quit [place] Chris smith 00:00:00 00:00:00 Smoking Status Start Date Stop Date Source Former smoker [facility] Current every day smoker 2018-05-23 00:00:00 [facility] Medications Ordered Filled Start Stop Current Ordering Indication Dosage Frequency Signature Comments Components Source Medication Medication Date Date Medication? Clinician (SIG) Name Name Atorvastati Atorvastati Yes Dianelys [address] [facility] n Calcium n Calcium 7-24 [facility] in evening [facility]: [facility] ent [facility] Clopidogrel Clopidogrel Yes Dianelys [address] [facility] Bisulfate Bisulfate 7-24 [facility] Lisinopril Lisinopril Yes Dianelys [address] [facility] 7-24 [facility] amLODIPine amLODIPine Yes YANELI TAKE 1 Univers [...] 00:00: DAILY [place] 00 Physici ans amLODIPine Yes 5 mg = 1 Mem oria 5 mg oral 8-28 tab, PO, l tablet 19:26: Daily, # [place] 00 30 tab, 2 Refill(s) lisinopril Yes 20 mg = 1 Me moria 20 mg oral 8-28 tab, PO, l tablet 19:26: Daily, # [place] 00 30 tab, 2 Refill(s) clopidogrel Yes 75 mg = 1 M emoria 75 mg oral 8-28 tab, PO, l tablet 19:26: Daily, # [place] 00 30 tab, 2 Refill(s) atorvastati Yes 20 mg = 1 M emoria n 20 mg 8-28 tab, PO, l oral tablet 19:26: Bedtime, # [place] 00 30 tab, 2 Refill(s) Aspirin 325 Yes 325 mg = 1 Memoria MG Enteric 8-28 tab, PO, l Coated 19:26: Daily, # [place] Tablet 00 30 tab, 2 Refill(s) Lisinopril No Notes: Memor ia 07-08 (Same as: l 17:00: Prinivil, [place] 00 Zestril) Docusate No Notes: Memoria Sodium 50 07-07 (Same as l MG / 22:00: Senokot-S) [place] sennosides, 00 Equiv. to CUSTODIAL 8.6 MG Anai-Colac Oral Tablet e. Tramadol No Notes: Not Mem oria 07-07 to exceed l 18:07: 400mg/day. [place] 00 (Same As: Ultram) Midazolam No 2 mg, Memoria 07-07 Route: l 18:04: IVP, ONCE, Dosing Weight 88.636, kg, Start date: 07/07/18 13:04:00 CDT, Stop date: 07/07/18 13:04:00 CDT Fentanyl No 100 Memoria 07-07 microgram, l 18:04: Route: IV, ONCE, Dosing Weight 88.636, kg, Start date: 07/07/18 13:04:00 CDT, Stop date: 07/07/18 13:04:00 CDT Omnipaque No 150 mL, Memor ia 300 07-07 Route: l 18:04: INTRAARTER [place] 00 IAL, Dosing Weight 88.636, kg, ONCE, Start date: 07/07/18 13:04:00 CDT, Stop date: 07/07/18 13:04:00 CDT captopril No Notes: Memori a 07-07 Give on l 17:25: empty [place] 00 stomach. 1 hour before meal. (Same As: Capoten) remove No Notes: Memoria patch 07-07 Remove l 02:00: patch 12 [place] 00 hours after applicatio n each day. remove No Notes: Memoria patch 07-06 Remove old l 14:00: patch [place] before applicatio n of new patch. WASTE: F/P - P Waste Black; E - P Waste Black Aspirin 325 No Notes: Papi jigna MG Enteric - Take with l Coated 14:00: food. Frank[place] Tablet 00 Lidocaine No Notes: Memori a 0.05 MG/MG 07-06 Apply only l Transdermal 14:00: once for He rmann Patch 00 up to 12 hours in a 24-hour period (12 hours on and 12 hours off). (Same as: Lidoderm) "Remove old patch before applicatio n of new patch" Amlodipine No 5 mg, 1 Papi jigna - tab, l 13:03: Route: PO, [place] 00 Drug form: TAB, Daily, Dosing Weight 88.636, kg, Start date: 07/06/18 8:03:00 CDT, Duration: 30 day, Stop date: 08/04/18 9:00:00 CDT Tylenol No Notes: Do Memor ia - not exceed l 07:07: 4 gm/day. Franko (Same as: Tylenol) Spironolact No 25 mg = 2 M emoria one 8-25 tab, PO, l 16:50: Daily, # [place] 00 60 tab, 0 Refill(s) Furosemide 0 No Daily, 0 Mem oria 8-25 Refill(s) l 16:50: [place] 00 amLODIPine No 20 mg = 2 Me moria 10 mg oral 8-25 tab, PO, l tablet 16:50: QAM, 0 Refill(s) Nicotine No Notes: Memoria 8-25 (Same as: l 14:00: Habitrol) [place] 00 "Remove old patch before applicatio n of new patch" WASTE: F/P - P Waste Black; E - P Waste Black Plavix No Notes: Memoria 8-25 (Same As: l 14:00: Plavix) [place] Aspirin 81 No Notes: Do Me moria MG Enteric -25 not crush l Coated 13:00: or chew. [place] Tablet (Same As: Ecotrin) Saline No Notes: Memoria Flush 0.9% 8-25 (Same as: l 02:00: BD Posiflush) atorvastati No Notes: Papi jigna n 8-25 (Same As: l 02:00: Lipitor) sennosides, No Notes: Papi jigna CUSTODIAL 824 (Same as: l 22:46: Senokot) Plavix No Notes: ( Memoria 824 Same as: l 21:26: Plavix) Aspirin 325 No Notes: Papi jigna MG Oral 24 Take with l Tablet 21:26: food. heparin No Notes: Memoria 8-24 porcine l 21:00: heparin iodixanol No 100 mL, Memor ia 07-04 Route: l 20:05: IVP, Drug Form: SOLN, Dosing Weight 88.636, kg, ONCALL, STAT, Start date: 07/04/18 15:05:00 CDT, Duration: 1 doses or times, Dose = 2.2ml/kg, Max dose = 100ml -- "To be infused by Radiology Staff ONLY" Saline No Notes: Memoria Flush 0.9% 07-04 (Same as: l 20:01: BD Posiflush) Hydralazine No Notes: Papi jigna 24 (Same as: l 20:01: Apresoline ) Push [...] Sodium No 1,000 mL, Memori a Chloride 8-24 Rate: 100 l 0.9% IV 20:01: ml/hr, Frank[place] 1,000 mL 00 Infuse over: 10 hr, Route: IV, Dosing Weight 88.636 kg, Total Volume: 1,000, Start date: 07/04/18 15:01:00 CDT, Duration: 30 day, Stop date: 08/03/18 15:00:00 CDT, 2.11, m2 Saline No Notes: Memoria Flush 0.9% 8-24 (Same as: l 19:01: BD [place] 00 Posiflush) Amlodipine Amlodipine Yes Dianelys [address] [facility] Besylate Besylate Millender Florecita kes - Memoria [facility] Clinics Lasix Lasix Yes Dianelys [address] [facility] Spironolact Spironolact Dianelys [address] [facility] one one 11-24 [facility]ender [facility] - 00:00 Memoria :00 l [facility] Vital Signs Vital Name Observation Time Observation Value Comments Source BP Systolic 2018-07-21 150 mm[Hg] Location: [facility] 10:50:00 Position: [place] Physician s Sitting BP Diastolic 2018-07-21 83 mm[Hg] Location: [facility] 10:50:00 Position: [place] Physician s Sitting Height 2018-07-21 67 [in_us] [facility] 10:50:00 [place] Physician s Weight 2018-07-21 184 [lb_av] [facility] 10:50:00 [place] Physician s Body Mass Index 2018-07-21 28.82 kg/m2 [place] o f Calculated 10:50:00 [place] Physician s Heart Rate 2018-07-21 55 /min Location: R [facility] 10:50:00 Brachial [place] Physician s Artery; Systolic (mm Hg) 2018-07-08 [facility] rmann 21:00:00 Diastolic (mm Hg) 2018-07-08 [facility] ermann 21:00:00 Respitory Rate 2018-07-08 [facility] Herm sylvia 21:00:00 Systolic (mm Hg) 2018-07-08 [facility] rmann 20:00:00 Diastolic (mm Hg) 2018-07-08 [facility] ermann 20:00:00 Respitory Rate 2018-07-08 [facility] Herm sylvia 20:00:00 Respitory Rate 2018-07-08 Memorial [...] (F) 12:38:00 Temperature Oral 2018-07-08 98.0 F Candi Perez rmann (F) 07:41:00 Height 2018-07-07 177.8 cm [...] Performing Clinician Source Performed CT Head/Neck CTA 17223 2018-07-21 00:00:00 [facility] Selective catheter 2018-07-07 17:40:00 [facility] [place] placement, vertebral artery, unilateral, with angiography of the ipsilateral vertebral circulation and all associated radiological supervision and interpretation, includes angiography of the cervicocerebral arch, when performed Plan of Care Planned Activity Planned Date Details Comments Source Future Scheduled Test 2020-08-11 00:00:00 IMM Influenza [facility] Seasonal Aug to January (>/= 19 yrs) [code = IMM Influenza Seasonal Aug to January (>/= 19 yrs)] Future Scheduled Test 2008 00:00:00 Screening for [facility] malignant neoplasm of colon (procedure) [code = 338422601] Encounters Start End Encounter Admission Attending Care Care Encounter Source Date/Time Date/Time Type Type Clinicians Facility Department ID 2017-10-08 Inpatient C MCSETX M[facility] [id number] Medical 07:14:00 [facility] 2017-08-29 Inpatient MCSETX MED [id number] Medical 13:35:00 [facility] 2017-07-03 Inpatient C MCSETX MCSETX [id number] Medical 15:05:00 [facility] 2020-12-16 2020-12-16 Prep For MOODY Gomez [id number] 00:00:00 00:00:00 Surgery [facility] [id number] Surgical [id number] Specialti [id number] es [address] [place] 2020-12-15 2020-12-15 Office MOODY Gomez [id number] 13:05:48 13:44:18 [facility] [id number] Surgical [id number] Specialti [id number] es [address] [place] 2020-10-27 2020-10-27 [facility] [id number] [facility] 2020-08-27 2020-08-27 [facility] [id number] [facility] 2020-08-23 2020-08-23 [facility] [id number] [facility] 2020-01-10 2020-01-10 Outpatient Ari Meehan [id number] 15:39:00 15:39:00 [facility] l Medicine Outpati ent Clinics 2020-01-08 2020-01-08 Outpatient Ari Chapmant [id number] [facility] 14:30:00 14:30:00 [facility] l Medicine Outpati ent Clinics 2019-11-19 2019-11-19 Outpatient Ari Chapmant [id number] [facility] 09:51:00 09:51:00 t [facility]gent [facility] Outpati ent Clinics 2019-09-09 2019-09-09 [facility] [id number] 13:40:00 13:40:00 t [facility] Medicine Outpati ent Clinics 2019-08-19 2019-08-19 Out[place] [facility] [id number] 14:30:00 14:30:00 t [facility] Medicine Outpati ent Clinics 2019-08-11 2019-08-11 Outpatient [facility] [id number] 11:44:00 11:44:00 t [facility] Medicine Outpati ent Clinics 2019-07-09 2019-07-09 [facility] [id number] 14:50:00 14:50:00 t [facility] Medicine Outpati ent Clinics 2019-07-02 2019-07-02 [place] [facility] [id number] 08:51:00 08:51:00 t [facility] Medicine Outpati ent Clinics 2019-06-11 2019-06-11 [place] [facility] [id number] 11:55:00 11:55:[address] [place] s [facility] Medicine Outpati ent Clinics 2019-06-08 2019-06-08 Outpatient [place] [facility] [id number] 14:00:00 14:00:00 t [facility] Medicine Outpati ent Clinics 2019-06-03 2019-06-03 Outpatient [facility] [facility] [id number] 10:15:00 10:15:00 t [facility] Medicine Outpati ent Clinics 2019-04-14 2019-04-14 Outpatient RAF[facility] [place] [id number] 14:30:00 14:30:00 Solitario Welsh 2019-03-11 2019-03-11 Out[place] [facility] [id number] 10:50:00 10:50:00 t [facility] Medicine Outpati ent Clinics 2019-03-05 2019-03-05 [id number] [facility] 13:30:00 13:30:00 t [facility] Medicine Medicine Outpati ent Clinics 2018-12-23 2018-12-23 Appointmen MADDISON HATHAWAY [id number] Univers 14:00:00 14:00:00 t; CHANDRAKANT HATHAWAY, ALEXANDRA gutierre[place] of [place], [place] [employer] Physici ans 2018-07-21 2018-07-21 Appointmen MADDISON CHOW Neurology [id number] Univers 11:00:00 11:00:00 t; RAJI CHOW it y of [place]AN[place], M.D. [place] M.D. Physici ans 2018-07-04 2018-07-08 Outpatient [place] [facility] [id number] 13:31:00 17:30:[address] [place] [address] 2018-05-23 2018-05-23 Emergency [facility] [id number] [place] 20:46:01 20:46:01 Health 2018-05-23 2018-05-23 Emergency [facility] [id number] [place] 19:26:42 19:26:42 Health 2017-08-12 2017-08-12 Outpatient C MCSETX MCSETX [id number] Medical 09:26:00 09:26:00 [facility] 2017-06-13 2017-06-13 Outpatient C MCSETX MCSETX [id number] Medical 14:15:00 14:15:00 [facility] 2017-06-05 2017-06-05 Outpatient C MCSETX MED [id number] Medical 09:33:00 09:33:00 [facility] 2017-03-19 2017-03-19 Outpatient C MCSETX KIKA [id number] Medical 07:13:00 07:13:00 [facility] 2017-02-06 2017-02-06 Outpatient C MCSETX KIKA [id number] Medical 07:43:00 07:43:00 [facility] 2017-01-08 2017-01-08 Outpatient C MCSETX MED [id number] Medical 07:03:00 07:03:00 [facility] Results Test Description Test Time Test Comments [...] = MCH) 32.6 pg 27.0-31.0 [facility]annPARATHYROID ABLXUNM7462-80-87 08:36:001.08[facility] [place] PARATHYROID XLHAFSB0519-13-68 08:36:001.10[facility]annBL[facility]OD BANK RESULTS 2018-07-07 05:01:00Negative (07/07/18 12:01 AM)[facility] HermannCHEM PANEL 2018-07-07 05:01:002.6[facility] HermannCHEM NQOEI5275-19-52 05:01:002.2[facility] YcnzthwBSKHFXDNFFCW3551-41-45 05:01:0014.0[facility] UemsjxzYFVQHLDYYPIX8336-09-20 05:01:0097[facility] PfvgugyPJXZPITMGDTS5700-05-09 05:01:004.0[facility] [place] GDWJLDOVPZIG3203-78-17 05:01:13144Npujcwwd NbkvtmjXQMKMVSQGHRR5878-16-88 05:01:0017[facility] XyepuddJYUBISFQKPTY6281-83-65 05:01:70634Ciioctgg [place] KTQJDETZCUYH0530-95-50 05:01:0097[facility] ArusuynAMGAHWOJWGLZ0085-19-73 05:01:00 0.82[facility] UmmklghTDDLFHSOZFIH2960-64-12 05:01:0022[facility] [place] XIDBPXWNWABW1656-44-38 05:01:008.0[facility] ZazaggxNNWVOWMIYV1215-39-38 05:01:00 23.2[facility] VrdysbxMEITUYQCVS7780-32-87 05:01:0064.9[facility] HermannHEMATOLOGY 2018-07-07 05:01:000.2[facility] FrsbvxwPGBZEIXFQL9814-11-70 05:01:000.1[facility] ZufvggiZNTBBELELV8910-48-77 05:01:001.3[facility] EkxxhzyXJVBUXDDKE0984-69-63 05:01:004.0[facility] OkmubxzSEFRRCTBLG4850-42-44 05:01:008.0[facility] [place] QFFBVBVZVU3536-83-77 05:01:002.6[facility] UdwgzxiFWMAUNBOWM8124-34-13 05:01:001.4 [facility] OmmbesmWBLECKAWZP1349-76-62 05:01:000.5[facility] HermannHEMATOLOGY 2018-07-07 05:01:10933Arpgxhcd HleycexKBYYDMMKCL3284-13-86 05:01:008.3[facility] NfdxeocEHGWDKIWNL2558-97-98 05:01:0014.2[facility] TaajsbhRDKYQYCYZD9033-22-38 05:01:0093.2[facility] AhtxnndZACSFDSYRK7177-52-11 05:01:00 Test Item Value Reference Range Interpretation Comments MCH (test code = MCH) 32.3 pg 27.0-31.0 [facility] PdeysxsGMYCWNAYLW8421-25-87 05:01:0014.6[facility] HermannHEMATOLOGY 2018-07-07 05:01:0042.2[facility] EnotximLDNNIZFLTU2524-91-65 05:01:0034.7[facility] NfdvgugGBJQWIBLKY9929-01-31 05:01:004.53[facility] LjllidgNPIYABHBGR8978-89-10 05:01:006.1[facility] UjghpswAVQMPQQIUX3462-66-30 05:01:00 Test Item Value Reference Range Interpretation Comments PT (test code = PT) 12.3 s 12.0-14.7 [facility] UtugdmhHNUSLZGWTM6985-97-61 05:01:00 Test Item Value Reference Range Interpretation Comments PTT (test code = PTT) 26.7 s 22.9-35.8 [facility] LqznyrnHZKUBYJDND5709-70-16 05:01:00 Test Item Value Reference Range Interpretation Comments INR (test code = INR) 0.91 1 0.85-1.17 [facility] BxggsskDLTHYJDGRU5275-96-16 05:01:003.2[facility] HermannHEMATOLOGY 2018-07-07 05:01:00 Test Item Value Reference Range Interpretation Comments Coag Index (test code = Coag Index) 1.0 1 <=3.0 [facility]aaqrmgNTBPRIHCBX8775-99-11 05:01:00 Test Item Value Reference Range Interpretation Comments Max Amp (test code = Max Amp) 55.2 mm 50.0-70.0 [facility]aZmozwluQMJUOVLQVQ7494-25-39 05:01:006.2[facility] HermannHEMATOLOGY 2018-07-07 05:01:00 Test Item Value Reference Range Interpretation Comments R-time (test code = R-time) 3.8 min 5.0-10.0 [facility]aAickunwJYZNZKNFXY1604-57-26 05:01:00 Test Item Value Reference Range Interpretation Comments K-time (test code = K-time) 1.7 min 1.0-3.0 [facility] CenterEsjtocoRUIUKSMWIT2373-65-05 05:01:00 Test Item Value Reference Range Interpretation Comments Angle (test code = Angle) 67.9 degrees 53.0-72.0 [facility] CenterPztmaowNLUUEODNGC5047-40-71 05:01:00See Note (07/07/18 12:01 AM)[facility] HermannPARATHYROID OZDGCNI1420-62-08 05:01:001.06Menvrial HermannPARATHYROID VZZBPJO2915-97-97 05:01:001.07[facility] HermannCHEM PNYJJ2412-11-68 20:40:001.9 [facility] HermannCHEM UHCLX9246-59-75 05:31:002.1[facility] HermannCHEM PANEL 2018-07-06 05:31:002.8[facility] HermannCHEM DUCBN2956-50-31 05:31:00 Test Item Value Reference Range Interpretation Comments A/G Ratio (test code = A/G Ratio) 0.7 1 0.7-1.6 [facility] HermannCHEM MSIRK8501-05-00 05:31:003.5[facility] HermannCHEM PANEL 2018-07-06 05:31:000.7[facility] HermannCHEM KLPWC7123-87-41 05:31:000.5[facility] HermannCHEM JHTEC1880-05-69 05:31:005.9[facility] HermannCHEM HFLDD9693-53-69 05:31:0095[facility] HermannCHEM NVDEY0693-68-59 05:31:002.4[facility] HermannCHEM MDTIX4074-95-98 05:31:59670Dkbaemjj HermannCHEM MQVBL9227-52-78 05:31:0087 [facility] HermannCHEM VGTFU3141-82-21 05:31:000.2[facility] HermannELECTROLYTES 2018-07-06 05:31:0011.7[facility] KgmorcjPKEEVWVFPSAS5722-85-04 05:31:38512 Memorial DdkjmfdNRZUHZGSCERX2715-87-42 05:31:0017[facility] HermannELECTROLYTES 2018-07-06 05:31:000.68[facility] SutpwqaYCVJFLDEDTEZ6027-73-60 05:31:003.7 Memorial XiesaczXNGWQXUDVJDK9887-73-11 05:31:22817Eppyiatg HermannELECTROLYTES 2018-07-06 05:31:0025[facility] DhsmldtLNDEEQBCXRYV9295-45-29 05:31:47885Lteqwcps AbsftwiILZSJDNAVAXW8987-15-41 05:31:15375Smvcrnlo XovpwadFTCJGZZVHADF1605-16-07 05:31:007.8[facility] SkniehvFVEUCWGTCZ5785-42-52 05:31:0013.7[facility] PKQFCUFNJS4952-06-52 05:31:0035.5[facility] XctacsgIQVGWGAUWS3777-82-34 05:31:00 127[facility] HhbqfdhBFPSHUUERI5039-27-19 05:31:008.2[facility] HermannHEMATOLOGY 2018-07-06 05:31:006.3[facility] QydjyaoGQVRAANEDE1989-77-86 05:31:004.61[facility] FxwafdbQTSJLOWWNC8027-81-90 05:31:0014.9[facility] DxljxeqKBPHBOUIHY9853-67-11 05:31:0042.1[facility] NzkiagxPBSYWJOXBL7820-23-62 05:31:0091.2[facility] [place] SCDAROUICV2375-31-68 05:31:00 Test Item Value Reference Range Interpretation Comments MCH (test code = MCH) 32.4 pg 27.0-31.0 [facility] UpupkmoZVEWMSAFDP7055-30-90 05:31:001.2[facility] HermannHEMATOLOGY 2018-07-06 05:31:000.6[facility] MsyuffyNPVRWLXDWC9054-47-67 05:31:000.2[facility] YptjnzuTTKWHXLNVL1013-94-45 05:31:000.1[facility] NrdayraKDLZJCSRKD6759-58-61 05:31:002.4[facility] XuswtftWWTJREWMZM6283-91-99 05:31:004.3[facility] [place] QXRLMYQWHT3332-12-64 05:31:001.0[facility] KuqinyuKGTRNPASAA0724-70-70 05:31:00 68.6[facility] FteawwnRGGURNQDQT9905-12-46 05:31:0018.8[facility] HermannHEMATOLOGY 2018-07-06 05:31:009.2[facility] HermannPARATHYROID AMUBTAO6082-03-64 05:31:001.10 [facility] HermannPARATHYROID BKHVULB2697-39-69 05:31:001.10[facility] HermannLIPIDS 2018-07-04 20:41:0076[facility] VqlbnzvYWLWIP4055-08-34 20:41:00 Test Item Value Reference Range Interpretation Comments VLDL (test code = VLDL) 25 1 [facility] MjwucnnNOEDKM7940-76-45 20:41:96574Eacjynzn MpljdflJOBTKV6117-10-92 20:41:0052[facility] RuyicmuEUJPIK3524-65-09 20:41:03354Yvexjzja HermannLIPIDS 2018-07-04 20:41:00 Test Item Value Reference Range Interpretation Comments CHD Risk (test code = CHD Risk) 2.94 1 4.00-7.30 [facility] HermannSPECIAL KYWGMHOWS5000-53-41 20:41:005.0[facility] HermannCHEM LZVOM5260-22-56 20:40:000.2[facility] HermannCHEM WDHZD8677-58-42 20:40:31408 [facility] HermannCHEM ZOWVT5072-84-44 20:40:003.8[facility] HermannCHEM PANEL 2018-07-04 20:40:000.9[facility] HermannCHEM BPGFS9268-84-95 20:40:00 Test Item Value Reference Range Interpretation Comments A/G Ratio (test code = A/G Ratio) 0.7 1 0.7-1.6 [facility] HermannCHEM UXICG6798-22-38 20:40:32265Zmdpgtnt HermannCHEM PANEL 2018-07-04 20:40:006.5[facility] HermannCHEM LALYR0369-64-15 20:40:002.7[facility] HermannCHEM EGNET4367-46-61 20:40:74680Igkcajqc HermannCHEM LGODF5625-46-35 20:40:00 Test Item Value Reference Range Interpretation Comments B/C Ratio (test code = B/C Ratio) 18 1 05-05 [facility]annDRUG AUELMU5793-45-08 20:28:00Negative *NA*(07/04/18 3:28 PM) [facility]annDR[facility] SVUOLY2079-36-17 20:28:00Negative *NA*(07/04/18 3:28 PM) [facility]annDR[facility] QEIYYH4752-50-29 20:28:00Negative *NA*(07/04/18 3:28 PM) [facility]ann[facility] RGVXXL8187-19-30 20:28:00Negative *NA*(07/04/18 3:28 PM) [facility]annDR[facility] ATKKSR6665-57-01 20:28:00Negative *NA*(07/04/18 3:28 PM) [facility]annDR[facility] FLZFIQ9582-44-79 20:28:00Negative *NA*(07/04/18 3:28 PM) [facility]annDR[facility] AQWNVY0798-99-09 20:28:00See Note (07/04/18 3:28 PM)[facility] HermannDRUG XWXKAX4949-45-35 20:28:00Negative *NA*(07/04/18 3:28 PM)[facility] [id number] 20:28:00None Seen (07/04/18 3:28 PM)[facility] [id number] 20:28:00None Seen (07/04/18 3:28 PM)[facility] [id number] 20:28:00None Seen (07/04/18 3:28 PM)[facility] [id number] 20:28:00None Seen (07/04/18 3:28 PM)[facility] [id number] 20:28:00Negative *NA*(07/04/18 3:28 PM)[facility] [id number] 20:28:00Negative *NA*(07/04/18 3:28 PM)[facility] [id number] 20:28:00 Test Item Value Reference Range Interpretation Comments UA Spec Grav (test code = UA Spec 1.025 1 Grav) [facility] [id number] 20:28:00Clear (07/04/18 3:28 PM) [facility] [id number] 20:28:001.0[facility] [id number] 20:28:00Negative (07/04/18 3:28 PM)[facility] [id number] 20:28:00 Test Item Value Reference Range Interpretation Comments UA pH (test code = UA pH) 6.0 1 5.0-8.0 [facility] [id number] 20:28:00Negative (07/04/18 3:28 PM) [facility] [id number] 20:28:00Negative (07/04/18 3:28 PM) [facility] [id number] 20:28:00Moderate *ABN*(07/04/18 3:28 PM)[facility] [id number] 20:28:00Yellow *NA*(07/04/18 3:28 PM)[facility] [id number] 19:44:000.7[facility] [id number] 19:29:00<0.02[facility] [id number] 19:29:0086[facility] [id number] 19:29:00 Test Item Value Reference Range Interpretation Comments Tot Cell Ct (test code = Tot Cell Ct) 100 1 [facility] [id number] 19:29:00Normal (07/04/18 2:29 PM)[facility] CenterByzjrwdSDJWTZEWZZ7370-73-52 19:29:00Normal (07/04/18 2:29 PM)[facility] [id number] 19:29:000.0[facility] HrbdlywPOOTLQNFGE5383-97-46 19:29:000.0 [facility] CenterGsobyzwJVSWEIROJV4126-45-51 19:29:00 Test Item Value Reference Range Interpretation Comments PTT (test code = PTT) 20.4 s 22.9-35.8 [facility] [id number] 19:29:00 Test Item Value Reference Range Interpretation Comments INR (test code = INR) 0.93 1 0.85-1.17 [id number] 19:29:00 Test Item Value Reference Range Interpretation Comments PT (test code = PT) 12.5 s 12.0-14.7 [facility] ABD PARCENTESIS [id number] 14:43:00ULTRASOUND DIRECTED PARACENTESIS:CLINICAL HISTORY: Ascites. Cirrhosis.Written and [...] with removal of 4 Lof fluid.US ABDOMEN [id number] 14:41:12ULTRASOUND ABDOMEN LIMITED:CLINICAL HISTORY: Ascites. Images were obtained over a quadrants of the abdomen for evaluation forascites volume. There is a moderate to large volume ascites.IMPRESSION:1. Moderate volume ascites.SP ABD PARCENTESIS [id number] 12:25:33Information: AscitesUltrasound guided paracentesisFollowing verbal and written [...] Ultrasound-guided paracentesis as described above.SP ABD PARCENTESIS [id number] 11:52:16Information: CirrhosisShunt paracentesisFollowing verbal and written consent [...] satisfactory condition.IMPRESSION:1. Ultrasound-guided paracentesis as described above.US DUPLKassie ART FLOW, ABD/PELV [id number] 11:44:42EXAM: Abdominal Sonography with Hepatic Elastography.TECHNIQUE: Serial multiplanar grayscale imagingwith/without Dopplerinterrogation including color flow imaging and Doppler waveformanalysis. Hepaticelastography measurements were made utilizing Flow Studio Epiq 7 ultrasound unit (C5-1 multifrequency transducer).HISTORY: [...] 12.0 - 2.64+ Moderate - SevereUS ABDOMEN [id number] 11:19:24EXAM: Abdominal Sonography with Hepatic Elastography.TECHNIQUE: Serial multiplanar grayscale imagingwith/without Dopplerinterrogation including color flow imaging and Doppler waveformanalysis. Hepaticelastography measurements were made utilizing Flow Studio Epiq 7 ultrasound unit (C5-1 multifrequency tr ansducer).HISTORY: [...]
--- OUTSIDE RECORDS SUMMARY | 2020-12-16 23:18 | XMS REPORT | Summary of Care ---
:1960 Author Organization [facility] Address [address] [place] [address] Care Team Providers Name Role Phone Dianelys Espinoza (Physicians Hop Grower) [phone] Eunice Espinoza Primary Care Provider Eunice Verdugo RN Primary Nurse Unavailable Reason for Visit Reason Comments Appointment Encounter Details Date Type Department Care Team Description 11/24/2020 Telephone [facility] Interventional Shawna Wells PA-C Appointment Radiology [address] [place] [address] [place], [place] [address] Allergies No Known Allergiesdocumented as of this encounter (statuses as of 11/24/2020) Medications Medication Sig Dispensed Refills Start Date [...] 81 mg by mouth 0 Active daily. [place]-3 Fatty Acids (FISH OIL Take by mouth. 0 Active CONCENTRATE) 1,000 mg Cap lisinopril 10 mg tablet Take 4 tablets by 0 10/05/20 19 Active mouth daily. 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 Need to reschedule cerebral angiogram documented in this encounter Plan of Treatment [...] ype Group Dates [employer] [id number] 2019-Andree [place] [id number] [place] [address] documented as of this encounter
--- OUTSIDE RECORDS SUMMARY | 2020-12-16 23:18 | XMS REPORT | Summary of Care ---
:1960 Author Organization [facility] Address [address] [place] [address] Care Team Providers Name Role Phone Dianelys Espinoza (Physicians Patient Care Provider) [phone] Eunice Espinoza Primary Care Provider Eunice Verdugo RN Primary Nurse Unavailable Reason for Visit Reason Comments Appointment Encounter Details Date Type Department Care Team Description 09/26/2020 Telephone [facility] Interventional Shawna Wells PA-C Appointment Radiology [address] [place] [address] [place] [address] Allergies No Known Allergiesdocumented as of this encounter (statuses as of 09/26/2020) Medications Medication Sig Dispensed Refills Start Date [...] 81 mg by mouth 0 Active daily. [place]-3 Fatty Acids (FISH OIL Take by mouth. 0 Active CONCENTRATE) 1,000 mg Cap lisinopril 10 mg tablet Take 4 tablets by 0 10/05/20 19 Active mouth daily. 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 documented as of this encounter Last Filed Vital Signs Not on filedocumented in this encounter Miscellaneous Notes Telephone Encounter - Shawna Gaffney PA-C - 09/26/2020 9:43 AM BRIDGE PAINTER HELPER [facility] Service S/w patient son- Discussed 10/04/2020 is not good date- Changed to 10/18 at 0800 arrival 0730. Email to radiology schedulers to update He will update his father as well- (Multiple messages left without return call) GE PAINTER HELPER documented in this encounter Plan of Treatment [...] ype Group Dates [employer] [id number] 2019-Andree [place] [address] [place] [address] documented as of this encounter
--- OUTSIDE RECORDS SUMMARY | 2020-12-16 23:18 | XMS REPORT ---
:1960 Author Organization [facility] Address 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 Problem Hyperlipidemia, E78.5 Active 95749132 unspecified hyperlipidemia type Problem Peripheral edema R60.9 Active 05556007 Problem Umbilical hernia K42.9 Active 011273809 without obstruction and without gangrene Problem Bilateral carotid I65.23 Active 419121884 artery stenosis Problem Unspecified cirrhosis K74.60 Active 08964193 of liver Problem History of CVA Z86.73 Active 645885808 Multip (cerebrovascular le. accident) Problem Pain in left shoulder M25.512 Active 72339289 Problem Pain in right M25.511 Active 94965152 shoulder Problem Pain in left knee M25.562 Active 95450901766779 2 ALLERGIES No Known Allergies ENCOUNTERS from 1960 to 2020-11-14 Encounter Location Date Provider Diagnosis [facility] [address] [facility] JE[place] Oct, Lazara guthrie [facility] [address] ; [place] [address] unspecified hyperlipidemia type E78.5 ; History of CVA (cerebrovascula r accident) Z86.7 3 and Peripheral darrian a R60.9 IMMUNIZATIONS No Information SOCIAL HISTORY Tobacco Use: [...] No information MEDICATIONS Medication SIG (Take, Route, Notes Start Date End Date Status Frequency, Duration) Amlodipine Besylate 5 MG 1 tablet Orally Once a Active day for 30 days Lasix 40 MG 1 tablet Orally Once a A ctive day for 30 days Clopidogrel Bisulfate 75 MG 1 tablet Orally Once a May, Active day for 30 days Atorvastatin Calcium 20 MG 1 tablet in evening May, 9 Active Orally Once a day for 30 days Lisinopril 40 MG 1 tablet Orally Once a May, Active day for 30 days Spironolactone 100 MG 1 tablet Orally Once a Active day for 30 days PROCEDURES No Information RESULTS No Results REASON FOR VISIT Med refills MEDICAL (GENERAL) HISTORY Type Description Date Medical History HTN (hypertension) Medical History Stroke Surgical History No Surgical history information Goals Section No Information Health Concerns No Information MEDICAL EQUIPMENT No Information MENTAL STATUS No Information FUNCTIONAL STATUS No Information ASSESSMENTS Encounter Date Diagnosis Assessment Notes Treatment Notes Treatm ent Clinical Notes Oct, Essential hypertension (ICD-10 - I10) Oct, Hyperlipidemia, unspecified hyperlipidemia type (ICD-10 - E78.5) Oct, History of CVA (cerebrovascular accident) (ICD-10 - Z86.73) Oct, Peripheral edema (ICD-10 - R60.9) PLAN OF TREATMENT Medication Medication Name Sig Start Date Stop Date Amlodipine Besylate 5 MG 1 tablet Orally Once a day for 30 days Lisinopril 40 MG 1 tablet Orally Once a day for 30 May, days Spironolactone 100 MG 1 tablet Orally Once a day for 30 days Atorvastatin Calcium 20 MG 1 tablet in evening Orally Once a 24 May, 2019 day for 30 days Lasix 40 MG 1 tablet Orally Once a day for 30 days Clopidogrel Bisulfate 75 MG 1 tablet Orally Once a day for 30 May, days Next Appt Details Provider Name:Lazara Lara, 2021-01-06 03:2 0:00 PM, [address], [place], [address], Insurance Providers Payer Name Payer Payer Insured Patient Coverage Coverage Address Phone Name Relationship to Start Date End Date Insured [employer] [address] [address] [phone] Fraker,Will self (Medicaid) [address] [address]
--- OUTSIDE RECORDS SUMMARY | 2020-12-16 23:19 | XMS REPORT | Summary of Care ---
:1960 Author Organization [facility] Address [address] [place] [address] Care Team Providers Name Role Phone Dianelys Espinoza (Physicians Heat And Frost Insulator Helper) [phone] Eunice Espinoza Primary Care Provider Eunice Verdugo RN Primary Nurse Unavailable Reason for Visit Reason Comments Follow-up FU Lt knee/ wants to discuss surgery Knee Pain Left knee pain Encounter Details Date Type Department Care Team Description 12/15/2020 Office Visit [facility]iam Primary oste oarthritis Orthopaedic Surgery- MD Eunice of left knee (Primary [place] [address]) [address] [facility] [place] [address] [place] [address] [phone] Allergies No Known Allergiesdocumented as of this encounter (statuses as of 12/15/2020) Medications Medication Sig Dispensed Refills Start Date [...] 81 mg by mouth 0 Active daily. [place]-3 Fatty Acids (FISH OIL Take by mouth. 0 Active CONCENTRATE) 1,000 mg Cap lisinopril 10 mg tablet Take 4 tablets by 0 10/05/20 19 Active mouth daily. 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 documented as of this encounter Last Filed Vital Signs Vital Sign Reading Time Taken Comments Blood Pressure 156/84 12/15/2020 1:23 PM MOTION GRAPHICS ARTIST Pulse 76 12/15/2020 1:19 PM MOTION GRAPHICS ARTIST Temperature - - Respiratory Rate - - Oxygen Saturation - - Inhaled Oxygen Concentration - - Weight 88.9 kg (196 lb) 12/15/2020 1:19 PM MOTION GRAPHICS ARTIST Height 172.7 cm (5' 8") 12/15/2020 1:19 PM MOTION GRAPHICS ARTIST Body Mass Index 29.8 12/15/2020 1:19 PM MOTION GRAPHICS ARTIST documented in this encounter Progress Notes Liam Gomez MD - 12/15/2020 4:15 PM CST Cc: Chief Complaint Patient presents with Follow-up FU Lt knee/ wants to discuss surgery Knee Pain Left knee pain Follow up Left knee pain Wants to discuss surgery Blaise Renee is a 60 year old male. Knee Pain The incident occurred more than 1 week ago. Incident location: 1986. The pain is present in the leftknee. The quality of the pain is described as burning, aching, cramping, shooting and stabbing. The pain is at a severity of 5/10. The pain has been worsening since onset. Associated symptoms include an inability to bear weight and a loss of motion. Associated symptoms comments: Pain radiates into hip. He has tried non-weight bearing, rest and immobilization for the symptoms. The treatment provided no relief. Allergies Blaise has No Known Allergies. Medications Outpatient Medications Prior to Visit Medication Sig Dispense Refill lisinopril 10 mg tablet Take 4 tablets by mouth daily. aspirin 81 mg chewable tablet Take 81 mg by mouth daily. atorvastatin 40 mg tablet Take 40 mg by mouth at bedtime. clopidogrel (PLAVIX) 75 mg tablet Take 75 mg by mouth daily. [place]-3 Fatty Acids (FISH OIL CONCENTRATE) 1,000 mg Cap Take by mouth. ondansetron 4 mg disintegrating tablet Take 1 tablet by mouth every 8 (eight) hours as needed for Nausea and Vomiting (N/V). 10 tablet 0 proMETHazine 25 mg tablet Take 1 tablet by mouth every 6 (six) hours as needed for Nausea and Vomiting (N/V). 12 tablet 0 amLODIPine 5 mg tablet Take 1 tablet by mouth daily. 90 tablet 1 furosemide 40 mg tablet Take 1 tablet by mouth daily. (Patient taking differently: Take 40 mg bymouth every morning and evening.) 90 tablet 1 spironolactone 100 mg tablet Take 1 tablet by mouth daily. 90 tablet 1 lactulose (CEPHULAC) 10 gram/15 mL solution Take 30 mL by mouth 2 (two) times daily. 1 Bottle 11 No facility-administered medications prior to visit. Histories Past Medical History: Diagnosis Date Carotid artery stenosis Cirrhosis CVA (cerebral vascular accident) HCV (hepatitis C virus) HTN (hypertension) Past Surgical History: Procedure Laterality Date CEREBRAL ANGIOGRAM 2018 in [facility] Social History Socioeconomic History Marital status: Spouse [...] Alcohol/week: 0.0 standard drinks Comment: Sober since 2018 Drug use: Never Sexual activity: Not on file Lifestyle Physical activity Days per week: Not on file Minutes per session: Not on file Stress: Not on file Relationships Social connections Talks on phone: Not on file Gets together: Not on file Attends yazidi service: Not on file Active member of [...] Social History Narrative Lives in sober house Family History Problem Relation Age of Onset Diabetes Mother Stroke Father Review of Systems Constitutional: Negative. HENT: Negative. Eyes: Negative. Respiratory: Negative. Breasts: Negative. Cardiovascular: Negative. Gastrointestinal: Negative. Genitourinary: Negative. Musculoskeletal: Positive for joint swelling. Skin: Negative. Neurological: Negative. Psychiatric/Behavioral: Negative. Endocrine: Endocrine negative Vital Signs Ht 68" (172.7 cm) | Wt 88.9 kg (196 lb) | BMI 29.80 kg/m Physical Exam Musculoskeletal: Left shoulder: He exhibits decreased strength. He exhibits normal range of motion and no pain. Left knee: He exhibits decreased range of motion. Tenderness found. Medial joint line tenderness noted. Comments: General: Well-developed well-nourished oriented to person place and time HEENT normocephalic atraumatic atraumatic pupils equal round reactive to light extraocular muscles intact Cervical thoracic and lumbar spine without focal deficit normal kyphosis and lordosis Chest clear to auscultation and percussion Cardiovascular regular rate and rhythm without gallop rub or murmur soft without organomegaly Normal bowel sounds Neurologic: Focal myotome or dermatomal deficits Vascular: Intact symmetrical bilateral upper and lower extremities Skin without stasis varicosities or breakdown Extremities without cyanosis clubbing or edema Lymphatics no peripheral lymphedema Psych normal mood and affect. Neurovascular function is intact. To include brisk capillary refill warm pink skin active motor function and sensory function intact. Assessment/Plan Left knee osteoarthritis Patient's knee(s) is/are wearing out and will eventually need a total knee replacement but will takepreventative measures prior to discussing surgery. Will take this in a stepwise fashion first beginning with NSAIDs. Next would be a cortisone injection. A cortisone injection will only help with the inflammatory response. Cortisone injections will be given no less than 3 months in a 3 year time frame. Hymalecular weight hylaronic acid injection series would follow cortisone injections. If the response is well to the cortisone this is usually an indication of how one will respond to Hymalecular weight hylaronic injections. These injections are given once weekly to the affected knee for 3 weeks. This can give at least 6 months of relief in 3 out of 4 people. If these steps do not help the last option would be to have a total knee replacement. The Rehab department will reach out to discuss making an appointment for an informational session called Total Replacement Boot Camp. This does not mean you are ready for a total knee replacement, it's simply preparation should you eventually decide to have/need a joint replacement. Conservative treatment has provided no relief. He was seen by his neurologist who had an angiogram performed and cleared the patient for surgery. Will proceed with a left total knee replacement at [facility] on 01/09/21. I have discussed the patient's physical exam and reviewed their x- rays/imaging/results with them in detail. Discussed surgery at great lengths regarding risks and benefits. Explained as with any procedure there may be pain, damage to nerve and vascular structures, fat embolism, need for additional surgery, failure of procedure to relieve pain. We spoke of recovery time, expected outcome, possible restrictions and anticipation return to work date as well as possible rehabilitation if needed or required after the surgery. All questions have been answered. Condition and plans were discussed with patient, who expressed understanding and is agreeable to theplan. ON GRAPHICS ARTIST documented in this encounter Plan of Treatment Date Type Specialty Care Team Description 12/21/2020 Office Visit Otolaryngology David Maher M D [address] [place], [place] [address] Health Maintenance Due Date Last Done Comments [...] Completed 05/12/2020 documented as of this encounter Implants Implanted Type Area Guardian Family Member Device Shelf Model / Identifier Expiration Date Ser ial / Lot Mynx Junior Designer Vascualr Closure Device Suture Right: Cardinal 06/10/2022 [id number] / Implanted: Qty: 1 on 12/09/2020 at [facility] Groin [id number] / [id number] documented as of this encounter Results Not on filedocumented in this encounter Visit Diagnoses Diagnosis Primary osteoarthritis of left knee - Pr imary Primary localized osteoarthrosis, lower leg documented in this encounter Insurance Payer Benefit Plan / Subscriber ID Effective Phone Address T ype Group Dates [employer] [id number] [facility] [address] [place] [id number] [place] [address] (Home) [place] [address] documented as of this encounter
--- OUTSIDE RECORDS SUMMARY | 2020-12-16 23:19 | XMS REPORT | Summary of Care ---
:1960 Author Organization [facility] Address [address] [place] [id number] Care Team Providers Name Role Phone Dianelys Espinoza (Physicians Filters Assembler) [phone] Eunice Espinoza Primary Care Provider Eunice Verdugo RN Primary Nurse Unavailable Reason for Referral (Routine) Status Reason Specialty Diagnoses / Referred By Referred To Procedures Contact Contact New Request Otolaryngology Diagnoses Bilateral carotid artery stenosis Chronic arterial ischemic stroke Dizziness Shawna Gaffney, Procedures CONSULT/REFERRAL ENT PA-C [address] [place] [id number] Radiology Services (Routine) Status Reason Specialty Diagnoses / Procedures Referred By Orion cookerred To Contact Contact Closed Diagnostic Diagnoses Bilateral carotid artery stenosis Arterial occlusive disease Antiplatelet or antithrombotic long-term use Chronic arterial ischemic stroke Shawna Gaffney, Radiology Procedures IR ANGIOGRAM CEREBRAL PA-C [facility] [place] [address] Reason for Visit Radiology Services (Routine) Status Reason Specialty Diagnoses / Procedures Referred By Orion eferred To Contact Contact Closed Diagnostic Diagnoses Bilateral carotid artery stenosis Arterial occlusive disease Antiplatelet or antithrombotic long-term use Chronic arterial ischemic stroke Shawna Gaffney, Radiology Procedures IR ANGIOGRAM CEREBRAL PA-C [facility] [place] [address] Encounter Details Date Type Department Care Team Description 12/09/2020 Hospital Encounter [facility] Shawna Gaffney Arrive d Interventional Radio logy ABEL [address] [place] [address] [facility] [phone] [place] [address] Allergies No Known Allergiesdocumented as of this encounter (statuses as of 12/10/2020) Medications Medication Sig Dispensed Refills Start Date [...] 81 mg by mouth 0 Active daily. [place]-3 Fatty Acids (FISH OIL Take by mouth. 0 Active CONCENTRATE) 1,000 mg Cap lisinopril 10 mg tablet Take 4 tablets by 0 10/05/20 19 Active mouth daily. 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 documented as of this encounter Last Filed Vital Signs Vital Sign Reading Time Taken Comments Blood Pressure 142/67 12/09/2020 3:45 PM SAWING AND ASSEMBLY SUPERVISOR Pulse 64 12/09/2020 3:45 PM SAWING AND ASSEMBLY SUPERVISOR Temperature 37.1 C (98.7 F) 12/09/2020 10:16 AM SAWING AND ASSEMBLY SUPERVISOR Respiratory Rate 16 12/09/2020 12:45 PM SAWING AND ASSEMBLY SUPERVISOR Oxygen Saturation 97% 12/09/2020 3:45 PM SAWING AND ASSEMBLY SUPERVISOR Inhaled Oxygen Concentration - - Weight 90.7 kg (200 lb) 12/09/2020 10:16 AM SAWING AND ASSEMBLY SUPERVISOR Height 172.7 cm (5' 8") 12/09/2020 10:16 AM SAWING AND ASSEMBLY SUPERVISOR Body Mass Index 30.41 12/09/2020 10:16 AM SAWING AND ASSEMBLY SUPERVISOR documented in this encounter Discharge Instructions Beth Shelby RN - 12/09/2020 Patient Discharge Instructions Follow instructions as indicated below: Today you had a procedure in the radiology department. We want to make sure that you have the information that you need to care for yourself after you go home. The nurse has explained the things that you need to do and has indicated the instruction that apply to your procedure below. Angiograms (also called Arteriograms): Spend the next 24 hours lying down as much as possible. If bleeding occours at the site of the dresssing, place a clean cloth over the area and apply a firm pressure for 15 minutes. if the area does not stop bleeding or you notice you site swelling. callthe number listed below. You received sedation-do not drive, operate machinery or make important decisions for the next 24hours. Resume diet and Medications Increase fluid intake over the next 24 hours. No heavy lifting (more than 5 pounds) or strenuous exercise for the next 24 hours. Avoid aspirin or aspirin containing products for 24 hours. Unless directed by your doctor, use non-aspirin pain relievers. Diet Instructions: regular Take Home Medications: These are medications ordered for you by your healthcare provider. Do not take any other medicationsor supplements unless advised by your healthcare provider. Patient's Medications START taking these medications No [...] taking these medications No medications on file Follow-up appointments: To schedule other appointments, call the [facility] at or . You may also make appointments online by going to [email or web address] and follow the RequestAppointment quicklink. For worsening symptoms/problems/questions: Non-emergency/urgent: call the [facility] at or and ask for the Neuroradiologist neon sign servicer. Patient provided with preferred teaching of verbal information on. Shows readiness to learn. Verbal instruction teaching provided. Individual is able to read and verbalizes understanding of teaching provided. Our Goal is to Always Provide You with Very Good Care! We will be mailing you a survey, Please complete and return at your convenience. Thank You TOBACCO AVOIDANCE Exposure to tobacco either from smoking or from second hand (environmental) smoke or smokeless tobacco (snuff) is damaging to your health. This information is to encourage everyone to avoid tobacco exposure. It is recommended that you: ? If you smoke or use smokeless tobacco, we encourage you to quit. ? If you have already quit smoking, continue your good work! ? If you do not smoke or use smokeless tobacco, do not start. ? Avoid secondhand smoke. Additional Resources You may want to contact these organizations for further information on smoking and how to quit. [place] [employer], http://www.lungusa.org/stop-smoking/ [place] [employer], http://www.cancer.org/Healthy/StayAwayfromTobacco/index [place] [employer], http://www.heart.org/HEARTORG/GettingHealthy/QuitSmoking/Quit-Smoking_[facility] _001085_SubHomePage.jsp documented in this encounter H&P Notes Shawna Gaffney PA-C - 12/09/2020 10:00 AM CST NEUROENDOVASCULAR HISTORY AND PHYSICAL NOTE NEUROENDOVASCULAR SERVICE DATE OF SERVICE: 12/09/2020 10:53 CHIEF COMPLAINT: follow-up for arterial occlusive disease HISTORY OF PRESENTING ILLNESS Mr.William Renee is a 59 yr-oldlefthanded man with PMH significant for stroke x 4 (residual left sided weakness),cirrhosis with portal hypertension, Hep C, HTN, carotid stenosis (bilaterally) who was referred to our service for bilateral carotid stenosis on recent neurovascular imaging studies. He presents for further evaluation of his arterial occlusive changes as noted on neurovascular imaging. Patient says he is currently working to establish his care in the [facility] system and is meeting with a face cleaner to evaluate for possible liver transplant. He does report history of 4 previous strokes,last one(2018)lefthim with residual neurological deficits affecting his right side. He was told he has bilateral [...] is hard to even enjoy his grandchildren. PAST MEDICAL HISTORY Past Medical History: Diagnosis Date Carotid artery stenosis Cirrhosis CVA (cerebral vascular accident) HCV (hepatitis C virus) HTN (hypertension) SURGICAL HISTORY Past Surgical History: Procedure Laterality Date CEREBRAL ANGIOGRAM 2018 in [facility] FAMILY HISTORY Family History Problem Relation Age of Onset Diabetes Mother Stroke Father SOCIAL HISTORY Social History Socioeconomic History Marital status: Spouse [...] file Gets together: Not on file Attends christian service: Not on file Active member of [...] Social History Narrative Lives in sober house MEDICATIONS (Not in a hospital admission) Current Outpatient Medications: lisinopril 10 mg tablet, Take 4 tablets by mouth daily., Disp: , Rfl: aspirin 81 mg chewable tablet, Take 81 mg by mouth daily., Disp: , Rfl: atorvastatin 40 mg tablet, Take 40 mg by mouth at bedtime., Disp: , Rfl: clopidogrel (PLAVIX) 75 mg tablet, Take 75 mg by mouth daily., Disp: , Rfl: [place]-3 Fatty Acids (FISH OIL CONCENTRATE) 1,000 mg [...] Vomiting (N/V)., Disp: 12 tablet, Rfl: 0 amLODIPine 5 mg tablet, Take 1 tablet by mouth daily., Disp: 90 tablet, Rfl: 1 furosemide 40 mg tablet, Take 1 tablet by mouth daily. (Patient taking differently: Take 40 mg by mouth every morning and evening.), Disp: 90 tablet, Rfl: 1 spironolactone 100 mg tablet, Take 1 tablet by mouth daily., Disp: 90 tablet, Rfl: 1 lactulose (CEPHULAC) 10 gram/15 mL solution, Take 30 mL by mouth 2 (two) times daily., Disp: 1 Bottle, Rfl: 11 ALLERGIES Patient has no known allergies. REVIEW OF SYSTEMS General: (-) fever, (-) chills, (-) weight [...] (-) tingling, (-) weakness Back: (-) pain, (-) spasms MARISELA: (-) muscle pain, (-) joint pain, (-) claudication Psych: (-) anxiety, (-) depression, (-) psychiatric disorder PHYSICAL EXAM Temp: [37.1 C (98.7 F)] Pulse: [71] BP: (145)/(88) Body mass index is 30.41 kg/m. Higher Cortical Functions: Mental Status: alert and oriented x 4 (time, person, place and situation) Speech/ Language: intact to comprehension, fluency Fund of Knowledge: normal fund of knowledge Short term memory: normal buttermaker helper memory: normal Attention: normal Concentration: normal Cranial Nerves: I. Not tested. II. Visual acuity grossly normal. FOV full to confrontation. III., IV., . Extraocular movements intact. No ptosis observed, no monocular or binocular diplopia.PERRL. V. Normal sensation in V1-3 distributions VII. No facial asymmetry observed. VIII. Hearing intact bilaterally to finger rubs IX., X. Palatal movements intact XI. Normal Strength of sternocleidomastoid and trapezius muscles bilaterally. XII. Tongue in midline. Motor: Muscle tone: normal, no rigidity, spasticity Muscle bulk: normal no abnormal spontaneous muscle activity; fasciculations: absent Tremor: bilateral fine resting tremors MOTOR EXAMINATION: STRENGTH Right Left Deltoid 5 5 Biceps 5 +4 Triceps 5 +4 Wrist extensors 5 5 Interossei 5 5 Hip flexors 5 5 Knee flexors (hamstring) 5 5 Knee extensors (quadriceps) 5 5 Ankle dorsiflexors 5 5 Ankle plantar flexors 5 5 Reflexes: Deep Tendon Reflex R L Biceps 2+ 2+ Triceps 2+ 2+ Brachioradialis 2+ 1+ Patellar 1+ 1+ Achilles 1+ 1+ Pathologic reflexes and signs: Plantar reflex: down going bilaterally Cerebellar: Nystagmus: absent FTN:normal bilaterally Tremors: bilateral fine resting tremors, no asterixis Sensory: LT: intact Temperature: intact Gait and station Short step, decreased arm swing. Ambulates with cane- positioned on right side. Limited by pain on left knee HEENT: oropharynx clear, moist mucous membranes Lungs: no wheezing, symmetrical expansion Cardio: S1, S2 normal Extremities:no cyanosis, clubbing or edema Dorsalis pedis and posterior tibialis pulses palpable bilaterally Neck:supple, no carotid bruit, no JVD Abdomen: soft, non-tender, non-distended LABS HGB A1C (%) Date Value 08/03/2020 5.2 LDL CHOL (mg/dL) Date Value 08/03/2020 100 CHOL (mg/dL) Date Value 08/03/2020 167 TSH (mIU/L) Date Value 05/12/2020 3.06 CBC BMP PT/INR WBC (10*3/L) Date Value 12/09/2020 6.64 NA (mmol/L) Date Value 12/09/2020 138 No results found for: PT RBC (10*6/L) Date Value 12/09/2020 4.06 (L) K (mmol/L) Date Value 12/09/2020 5.0 INR (no units) Date Value 12/09/2020 1.0 PLT (10*3/L) Date Value 12/09/2020 180 CALCIUM (mg/dL) Date Value 12/09/2020 7.2 (L) HGB (g/dL) Date Value 12/09/2020 10.9 (L) CL (mmol/L) Date Value 12/09/2020 104 aPTT HCT (%) Date Value 12/09/2020 34.4 (L) BUN (mg/dL) Date Value 12/09/2020 19 APTT Patient (Seconds) Date Value 05/12/2020 26 RADIOLOGY/IMAGING MRA head/neck dated 05/25/2019 that I personally reviewed and shows: Focal moderately severe stenosis of the right ICA at skull-base petrousICA. Moderately severe stenosis left ICA siphon segment. Hypoplastic right vertebral artery. No definite high-grade stenosis within cervical carotids. ASSESSMENT: Mr.William Renee is a 59 yr-oldlefthanded man with PMH significant for stroke x 4 (residual left sided weakness),cirrhosis with portal hypertension, Hep C, HTN, carotid stenosis (bilaterally) who was referred to our service for bilateral carotid stenosis on recent neurovascular imaging studies. He presents for further evaluation of his arterial occlusive changes as noted on neurovascular imaging. Patient will benefit from cerebral angiogram to better profile intracranial/extracranial vasculature. Creatinine supports that patient can support the contrast load. PLAN: --diagnostic cerebral angiogram with Dr. Vidal today. Discussed procedure with patient includingrisks versus benefits vs alternatives. Answered all questions. Consent signed and placed on chart with IR Noble SALEH --post angiogram protocol --bedrest x 6 hours --further plan per results of diagnostic findings Patient and plan of care was discussed with Dr. Vidal, Neuro- Endovascular/Neurology faculty. Shawna Gaffney PA-C Physician Filters Assembler Neurology Department; Neuro-endovascular Division Pager: [phone] documented in this encounter Procedure Notes Noble Choi RN - 12/09/2020 10:00 AM CSTProcedure(s): IR ANGIOGRAM CEREBRAL 1102 Received PT via Stretcher from IR VALIDATION LEADER. 1135 Dr. Vidal at bedside and Time Out done and CONSENT PRESENT. 1140 Access achieved/Puncture time 1230 Procedure completed. Refer to Dr. Vidal notes for full report. 1225 Closure Device Deployed (see implant section for ref/lot/exp) 1230 Patient able to Ambulate at 1630 1230 Report given to IR VALIDATION LEADER in along with (Right) groin site with pulse checks ordered and to be checked by receiving nurse. 1245 Transported to IR VALIDATION LEADER, B/P 154/83 documented in this encounter Plan of Treatment Name Type Priority Associated Diagnoses Date/Ti me IR ANGIOGRAM CEREBRAL IMAGING Routine Bilateral carotid a rtery 12/09/2020 1:02 PM stenosis SAWING AND ASSEMBLY SUPERVISOR Arterial occlusi ve disease Antiplatelet or antithrombotic long-term use Chronic arterial ischemic stroke Health Maintenance Due Date Last Done Comments PNEUMOCOCCAL 0-64 YEARS COMBINED SERIES (1 of 1 - 1964 PPSV23) SARS-CoV-2 (COVID-19) Vaccine (1 of 2) 1974 DTaP,Tdap,and Td Vaccines (1 - Tdap) 1977 [...] of this encounter Implants Implanted Type Area Brass Burnisher Device Shelf Model / Identifier Expiration Date Ser ial / Lot Mynx Globe Mounter Vascualr Closure Device Suture Right: Cardinal 06/10/2022 [id number] / Implanted: Qty: 1 on 12/09/2020 at [facility] Groin [id number] / [id number] documented as of this encounter Procedures Procedure Name Priority Date/Time Associated Diagnosis Comme nts IR ANGIOGRAM CEREBRAL Routine 12/09/2020 1:02 PM Bilateral ca rotid artery SAWING AND ASSEMBLY SUPERVISOR stenosis Arterial occlusive disease Antiplatelet or antithrombotic long-term use Chronic arterial ischemic stroke Procedure Note - [facility], Radia nt Results Inft User - 12/09/2020 4:03 PM SAWING AND ASSEMBLY SUPERVISOR EXAMINATION: Cerebral angiogram. CLINICAL HISTORY: 60 year-o ld man with PMH of stroke, cirrhosis with portal hypertension, He p C, HTN and carotid stenosis for which angiographic evaluation util izing cerebral angiogram was requested. COMPARISON: CT nodular head and neck 06/14/2020. OCCUPATIONAL HEALTH PHYSICIAN: Dr. Luiza ovalle M.D. TEAROOM HOST/HOSTESS: Dr. Col óscar Wheatley, Dr. Jonny Wheatley ACCESS SITE: right common f emoral artery/Mynx-c consultant closure device/manual compression. ANESTHESIA: Conscious sedat ion and local infiltration of the groin using subcutaneous and subcuticula r injection of 1% lidocaine. ESTIMATED BLOOD LOSS: Total of 5-8 cc. PROCEDURE: The procedure along with its indications, risks, benefits and alternatives were discussed with the salena ent and his family. They were made aware of the risks including but not limi willow to systemic bleeding, renal failure, x-ray hazards, allergic reaction, arterial damage and . He agreed to proceed with the angiogram and subse quently informed consent was obtained. In the angiographic suite, u nder neuroleptic analgesia and strict sterile techniques, utilizing a micr opuncture set with fluoroscopic guidance, a 5-F sheath was inserted into the right common femoral artery. Through the sheath, a 4-F DAVID-II cathete r was then advanced over wire and the following procedure was performed: 1. Selective right subclavia n arteriogram with biplane filming over the supraclavicular region. 2. Selective right common ca rotid arteriogram with biplane filming over the common carotid bifurcation. 3. Selective right common ca rotid arteriogram with biplane filming over the intracranial carotid circula tion. 4. Selective left common car otid arteriogram with biplane filming over the common carotid bifurcation. 5. Selective left common car otid arteriogram with biplane filming over the intracranial carotid circula tion. 6. Selective left vertebral arteriogram with biplane filming over the vertebrobasilar circulation. 7. Selective right subclavia n arteriogram with biplane filming over the vertebrobasilar circulation. 8. Selective right common ca rotid arteriogram with three-dimensional rotational views. The three- dimensional images were obtained to better delineate the underlying vas cular abnormality. The rotational images were reconstructed on a dedicated workstation. 9. Selective left common car otid arteriogram with three-dimensional rotational views. The three- dimensional images were obtained to better delineate the underlying vas cular abnormality. The rotational images were reconstructed on a dedicated workstation. FINDINGS: The selective right common c arotid arteriogram, obtained with biplane filming over the cervical re gion demonstrates no significant extracranial atherosclerotic disease. The cervical internal carotid artery demonstrates a tortuous course. The selective right internal carotid arteriogram, obtained with biplane filming and three-dimensiona l views over the intracranial carotid circulation demonstrates mil d atherosclerotic changes involving the carotid siphon, most prominent at th e distal lacerum segment. The internal carotid artery terminus, anterior an d middle cerebral arteries are patent with no major branch occlusion, raman re arterial stenosis or aneurysm. The deep cerebral veins and major brian ous sinuses are patent. The selective left common ca rotid arteriogram, obtained with biplane filming over the cervical re gion demonstrates mild extracranial atherosclerotic disease at t he carotid bulb/internal carotid artery origin. The cervical internal caroti d artery demonstrates a tortuous course. The selective left internal carotid arteriogram, obtained with biplane filming and three-dimensiona l views over the intracranial carotid circulation demonstrates mil d atherosclerotic disease more prominent at the internal carotid artery cave rnous segment. The anterior and middle cerebral arteries are patent with no major branch occlusion, severe arterial stenosis or aneurysm. The de ep cerebral veins and major venous sinuses are patent. The selective right vertebra l arteriogram, obtained with biplane filming over the vertebrobasilar cir culation, demonstrates nondominant right vertebral artery that ends p rimarily in the right posterior inferior cerebellar artery. Of note the left vertebral a rtery origins directly from the aortic arch. The selective left vertebral arteriogram, obtained with biplane filming over the vertebrobasilar cir culation, demonstrates no major branch occlusion, severe arterial s tenosis, arterial aneurysm or arteriovenous malformation within the post erior fossa. There is common origin of the left P1 segment and superior cere bellar artery. The deep cerebral veins and major venous sinuses are pat ent. Hemostasis of the right femo ral puncture site was achieved using Mynx-c consultant closure device. Patient bryone rated the procedure well which was brief and uneventful. IMPRESSION 1. Mild atherosclerotic espino ges within the intracranial and extracranial vessels, most prominent at t he carotid siphons bilaterally, without major branch occlusion, severe art erial stenosis, aneurysm or arteriovenous malformation. 2. No endovascular intervent ion is warranted at this time. Preliminary Report Dictated by Resident: Nicko Torres LAB ONLY COVID Routine 12/09/2020 10:02 Bilateral carotid sheba ry Results for INTERPRETATION AM SAWING AND ASSEMBLY SUPERVISOR stenosis this procedure Arterial occlusi ve disease are in the Antiplatelet or results antithrombotic long-term sec tion. use Chronic arterial ischemic stroke COVID-19 (ID NOW Routine 12/09/2020 10:02 Bilateral carotid ar lamin Results for RAPID TESTING) AM SAWING AND ASSEMBLY SUPERVISOR stenosis this procedure Arterial occlusi ve disease are in the Antiplatelet or results antithrombotic long-term sec tion. use Chronic arterial ischemic stroke VERIFYNOW ASPIRIN Routine 12/09/2020 10:02 Bilateral carotid a rtery Results for TEST AM SAWING AND ASSEMBLY SUPERVISOR stenosis this procedure Arterial occlusi ve disease are in the Antiplatelet or results antithrombotic long-term sec tion. use Chronic arterial ischemic stroke VERIFYNOW PRUTEST Routine 12/09/2020 10:02 Bilateral carotid a rtery Results for (P2Y12) AM SAWING AND ASSEMBLY SUPERVISOR stenosis this procedure Arterial occlusi ve disease are in the Antiplatelet or results antithrombotic long-term sec tion. use Chronic arterial ischemic stroke PROTHROMBIN TIME / Routine 12/09/2020 10:02 Bilateral carotid artery Results for INR AM SAWING AND ASSEMBLY SUPERVISOR stenosis this procedure Arterial occlusi ve disease are in the Antiplatelet or results antithrombotic long-term sec tion. use Chronic arterial ischemic stroke CBC WITH DIFF Routine 12/09/2020 10:02 Bilateral carotid arter y Results for AM SAWING AND ASSEMBLY SUPERVISOR stenosis this procedure Arterial occlusi ve disease are in the Antiplatelet or results antithrombotic long-term sec tion. use Chronic arterial ischemic stroke BASIC METABOLIC Routine 12/09/2020 10:02 Bilateral carotid art ne Results for PANEL (NA, K, CL, AM SAWING AND ASSEMBLY SUPERVISOR stenosis this procedure CO2, GLUCOSE, BUN, Arterial occl usive disease are in the CREATININE, CA) Antiplatelet or results antithrombotic long-term sec tion. use Chronic arterial ischemic stroke documented in this encounter Results LAB ONLY COVID INTERPRETATION (12/09/2020 10:02 AM SAWING AND ASSEMBLY SUPERVISOR) COVID DMT Interpretation/Recommendations: [facility] Interpretation SERVICES Molecular NAAT Tests for Active Infection with the [place] S-CoV-2 Virus: This patient has tested nega tive on two occasions for the SARS-CoV-2 virus that causes COVID-19 illness. This most likely indicates that the patient does not have an active infection with the SARS-CoV-2 virus, especially if these tests coincide with the patient's current presentation. However, infection is not completely ruled out as the false negative rate for molecular NAAT testing using a nasophary ngeal sample can be up to 30 %, mostly dependent on the timing of sample collection in relation to illness onset and any deficiencies in sampling techniques. If the patient has symptoms concerning for CO VID-19 illness, a repeat CARLA T test (PCR, Rapid ID Now, etc.) should be performed, at which time the SARS-CoV-2 virus - if present - may have reached a detectable viral load (usually peaking by the end of the first week of symptoms). Tests for IgM and/or IgG Antibodies to SARS-CoV-2 Viru s: Testing for IgM and IgG anti bodies 1-3 weeks after illness onset will indicate whether the patient has produced antibodies to the virus. At this time, it is not known if the production of antibodies - s pecifically IgG antibodies - indicates whether the patient is immune to future infections with the SARS-CoV-2 virus. Interpretation Result Comments: These interpretation comment s are based upon all COVID-19 testing the patient has had at [facility], including molecular NAAT testing (more commonly known as PCR testing and Rapid ID Now testing) and antibody testing. It does not take i nto account any testing that a patient has had outside of the [facility] medical record. COVID Results SARS-CoV-2 NAAT (no units) [facility] RY Date Value SERVICES 05/12/2020 Not Detected SARS-CoV-2 Rapid ID NOW (no units) Date Value 12/09/2020 Not Detected Specimen Swab - NASOPHARYNGEAL SWAB Performing Organization Address City/State/Zipcode Phone Number [facility] CLIA: [id number] [place], [place] [id number] [address] [place] [address] BASIC METABOLIC PANEL (NA, K, CL, CO2, GLUCOSE, BUN, CREATININE, CA) (12/09/2020 10:02 AM SAWING AND ASSEMBLY SUPERVISOR) Pathologist Sig nature NA 138 135 - 145 [facility] mmol/L SERVICES K 5.0 3.5 - 5.0 [facility] mmol/L SERVICES CL 104 98 - 108 mmol/L [facility] CO2 TOTAL 26 23 - 31 mmol/L [facility] AGAP 8 2 - 16 [facility] BUN 19 7 - 23 mg/dL [facility] GLUCOSE 112 (H) 70 - 110 mg/dL [facility] CREATININE 0.70 0.60 - 1.25 [facility] mg/dL SERVICES CALCIUM 7.2 (L) 8.6 - 10.6 [facility] mg/dL SERVICES eGFR Calculation 114.3 mL/min/1.73m2 [facility] (Non- SERVICES [place]) eGFR Calculation 138.5 mL/min/1.73m2 [facility] () SERVICES Specimen Blood Narrative Performed At Association of Glomerular Filtration Rate (GFR) and St aging [facility] of Kidney Disease* + + +------- ------ + | GFR (mL/min/1.73 m2) | With Kidney Damage | Wi thout Kidney Damage + + +------- ------ + | >90 | Stage one | Normal + + +------- ------ + | 60-89 | Stage two | Decreased GFR + + +------- ------ + | 30-59 | Stage three | Stage three + + +------- ------ + | 15-29 | Stage four | Stage four + + +------- ------ + | <15 (or dialysis) | Stage five | Stage five + + +------- ------ + *Each stage assumes the associated GFR level has been in effect for at least three months. Stages 1 to 5, wit h or without kidney disease, indicate chronic kidney disease. Notes: Determination of stages one and two (with eGFR >59mL/min/1.73 m2) requires estimation of kidney damag e for at least three months as defined by structural or func tional abnormalities of the kidney, manifested by either: Pathological abnormalities or Markers of kidney damage (including abnormalities in the composition of the blo od or urine or abnormalities in imaging tests) . Performing Organization Address City/State/Zipcode Phone Number [facility] CLIA: [id number] [place] [address] [place] [address] CBC WITH DIFF (12/09/2020 10:02 AM SAWING AND ASSEMBLY SUPERVISOR) Pathologist Sig nature WBC 6.64 4.20 - 10.70 [facility] 10*3/L SERVICES RBC 4.06 (L) 4.26 - 5.52 [facility] 10*6/L SERVICES HGB 10.9 (L) 12.2 - 16.4 [facility] g/dL SERVICES HCT 34.4 (L) 38.4 - 49.3 % [facility] MCV 84.7 81.7 - 95.6 fL [facility] MCH 26.8 26.1 - 32.7 pg [facility] MCHC 31.7 31.2 - 35.0 [facility] g/dL SERVICES RDW-SD 42.1 38.5 - 51.6 fL [facility] RDW-CV 13.7 12.1 - 15.4 % [facility] PLT 180 150 - 328 [facility] 10*3/L SERVICES MPV 10.5 9.8 - 13.0 fL [facility] NRBC/100 WBC 0.0 0.0 - 10.0 /100 [facility] WBCs SERVICES NRBC x10^3 <0.01 10*3/L [facility] GRAN MAT (NEUT) % 67.6 % [facility] IMM GRAN % 0.60 % [facility] LYMPH % 21.7 % [facility] MONO % 6.9 % [facility] EOS % 2.4 % [facility] BASO % 0.8 % [facility] GRAN MAT x10^3(ANC) 4.49 1.99 - 6.95 [facility] 10*3/uL SERVICES IMM GRAN x10^3 0.04 0.00 - 0.06 [facility] 10*3/uL SERVICES LYMPH x10^3 1.44 1.09 - 3.23 [facility] 10*3/uL SERVICES MONO x10^3 0.46 0.36 - 1.02 [facility] 10*3/uL SERVICES EOS x10^3 0.16 0.06 - 0.53 [facility] 10*3/uL SERVICES BASO x10^3 0.05 0.01 - 0.09 [facility] 10*3/uL SERVICES Specimen Blood Performing Organization Address City/[facility]/Zipcode Phone Number [facility] CLIA: [id number] [place], [place] [id number] [address] [place] [address] PROTHROMBIN TIME / INR (12/09/2020 10:02 AM SAWING AND ASSEMBLY SUPERVISOR) PROTIME PATIENT 10.8 10.1 - 12.6 [facility] Seconds SERVICES INR 1.0Comment: Normal [facility] INR <1.1; Warfarin SERVICES Therapeutic range 2.0 to 3.0 or 2.5 to 3.5, depending upon the indications. Specimen Blood Performing Organization Address City/[facility]/Zipcode Phone Number [facility] CLIA: [id number] [place], [place] [id number] [address] [place] [address] VERIFYNOW PRUTEST (P2Y12) (12/09/2020 10:02 AM SAWING AND ASSEMBLY SUPERVISOR) Pathologist Sig nature VerifyNow PRUTest 283 182 - 335 PRU [facility] (P2Y12) SERVICES Specimen Blood Narrative Performed At Off-drug PRU reference range is 180 - 376. Values less than [facility] 180 PRU suggest evidence of a P2Y12 inhibitor effect, which may be explained by P2Y12 receptor medic ations. P2Y12 Reaction Units (PRU) indicates the amount of ADP-mediated aggregation specific to the platelet P2Y1 2 receptor; a LOW PRU indicates a higher response to anti-platelet medication while a HIGH PRU indicates lo wer platelet inhibitive effect. Patients who have been treated with Glycoprotein IIb/I IIa inhibitor drugs should not be tested with the PRUtest until platelet function has recovered. The recovery period a fter drug administration is discontinued is approximately 1 4 days to abciximab (ReoPro) and up to 48 hours for eptifibat hector (Integrilin) and tirofiban (Aggrastat). The time to re covery of platelet functions varies among individuals and is not affected by renal dysfunction. Patient with low platel et counts may not give consistent results. Results should be interpreted in conjunction with other laboratory and clinical data available to the clinician . Performing Organization Address City/State/Zipcode Phone Number [facility] CLIA: [id number] [place] [address] [place] [address] VERIFYNOW ASPIRIN TEST (12/09/2020 10:02 AM SAWING AND ASSEMBLY SUPERVISOR) Pathologist Sig nature VerifyNow Aspirin 562 See Comment ARU [facility] Test SERVICES Specimen Blood Narrative Performed At < 550 ARU - Evidence of platelet dysfunc tion due to aspirin [facility] >= 550 ARU - No evidence of aspirin-induced platelet dysfunction The performance of VerifyNow Aspirin test on patients with acquired non-drug induced platelet abnormalities is no t known. Patients who have been treated with Glycoprotei n IIb/IIIa inhibitor drugs should not be tested until pl atelet function has recovered. The recovery period after drug administration is discontinued is approximately 14 day s for abciximab (ReoPro) and up to 48 hours for eptifibatide (Integrilin) and tirofiban (Aggrastat). The time to re covery of platelet functions varies among individuals and is longer for patients with renal dysfunction. Patient with low platelet counts may not give consistent results. Resul ts should be interpreted in conjunction with other labora tory and clinical data available to the clini ellyn. Performing Organization Address City/State/Zipcode Phone Number [facility] CLIA: [id number] [place] [address] [phone] 301 [facility] COVID-19 (ID NOW RAPID TESTING) (12/09/2020 10:02 AM SAWING AND ASSEMBLY SUPERVISOR) SARS-CoV-2 Rapid ID Not Detected Not Detected [facility] NOW SERVICES Specimen Swab - NASOPHARYNGEAL SWAB Narrative Performed At ID NOW COVID-19 Assay is an isothermal nucleic acid [facility] amplification test intended for the qualitative detect ion of nucleic acid from SARS-CoV-2 viral RNA in nasopharynge al (OTC CLERK) specimens. It is used under Emergency Use Authori zation (EUA) by FDA. The limit of detection (LOD) of the assa y is 125 Genome Equivalents/mL. A positive result is indicative of the presence of SARS-CoV-2 RNA. Clinical correlation with patient hi story and other diagnostic information is necessary to deter mine patient infection status. A negative (Not Detected) result does not preclude SARS-CoV-2 infection. In patients with clinical sympto ms and other tests that are consistent with SARS-CoV-2 infect ion, negative results should be treated as presumptive nega tive and a new specimen should be tested with alternative P CR molecular test. Invalid: Please collect a new specimen for repeat salena ent testing if clinically indicated. Performing Organization Address City/State/Zipcode Phone Number [facility] CLIA: [id number] [place] [address] [phone] 301 [facility] documented in this encounter Visit Diagnoses Diagnosis Dizziness - Primary Dizziness and giddiness Bilateral carotid artery stenosis Occlusion and stenosis of multiple and b ilateral precerebral arteries without mention of cerebral infarction Arterial occlusive disease Embolism and thrombosis of unspecified a rtery Antiplatelet or antithrombotic long-term use Encounter for long-term (current) use of antiplatelets/antithrombotics Chronic arterial ischemic stroke Transient ischemic attack (TIA), and cer ebral infarction without residual deficits documented in this encounter Administered Medications Medication Order MAR Action Action Date Dose Rate Site ceFAZolin (ANCEF) injection Given 12/09/2020 12:30 PM SAWING AND ASSEMBLY SUPERVISOR 1,000 mg Slow IV Push, PRN, Starting Sat12/09/20 at 1230, Until Sat12/09/20 at 1230, TATIANA FENTanyl PF (SUBLIMAZE (PF)) injection Given 12/09/2020 12:23 PM SAWING AND ASSEMBLY SUPERVISOR 25 mcg Slow IV Push, PRN, Starting Sat12/09/20 at 1135, Until Sat12/09/20 at 1223, Routine Given 12/09/2020 11:35 AM SAWING AND ASSEMBLY SUPERVISOR 25 mcg midazolam (VERSED) injection Given 12/09/2020 12:23 PM SAWING AND ASSEMBLY SUPERVISOR 0.5 mg IV Push, PRN, Starting Sat12/09/20 at 1223, Until Sat12/09/20 at 1223, Routine documented in this encounter Additional Health Concerns Infection Onset Date Last Indicated Resolved Time COVID-19 Rule Out 12/09/2020 12/09/2020 12/09/2020 10: 44 AM SAWING AND ASSEMBLY SUPERVISOR documented as of this encounter Insurance Payer Benefit Plan / Subscriber ID Effective Phone Address T ype Group Dates [employer] [id number] 2019-[facility] [address] [place] [id number] [place] [address] ([place]) [place] [address] documented as of this encounter
--- OUTSIDE RECORDS SUMMARY | 2020-12-16 23:19 | XMS REPORT | Summary of Care ---
:1960 Author Organization [facility] Address [address] [place] [address] Care Team Providers Name Role Phone Dianelys Espinoza (Physicians Blind Lacer) [phone] Eunice Espinoza Primary Care Provider Eunice Verdugo RN Primary Nurse Unavailable Reason for Visit Reason Comments Follow-up FU Lt knee/ wants to discuss surgery Knee Pain Left knee pain Encounter Details Date Type Department Care Team Description 12/15/2020 [facility]iam Primary oste oarthritis Orthopaedic Surgery- MD Eunice of left knee (Primary [place] [address]) [address] [facility] [place] [address] [place] [address] [phone] Allergies No Known Allergiesdocumented as of this [...] 81 mg by mouth 0 Active daily. [place]-3 Fatty Acids (FISH OIL Take by mouth. [...] with No / Unsure 12/15/2020 1:05 PM DADO OPERATOR someone who was confirmed or suspected to have Coronavirus / COVID-19? documented as of this encounter Last Filed Vital Signs Vital Sign Reading Time Taken Comments Blood Pressure 156/84 12/15/2020 1:23 PM DADO OPERATOR Pulse 76 12/15/2020 1:19 PM DADO OPERATOR Temperature - - Respiratory Rate - - Oxygen Saturation - - Inhaled Oxygen Concentration - - Weight 88.9 kg (196 lb) 12/15/2020 1:19 PM DADO OPERATOR Height 172.7 cm (5' 8") 12/15/2020 1:19 PM DADO OPERATOR Body Mass Index 29.8 12/15/2020 1:19 PM DADO OPERATOR documented in this encounter Progress Notes Liam [...] tablet Take 75 mg by mouth daily. [place]-3 Fatty Acids (FISH OIL CONCENTRATE) 1,000 mg [...] Procedure Laterality Date CEREBRAL ANGIOGRAM 2018 in [facility] Social History Socioeconomic History Marital status: Spouse [...] file Gets together: Not on file Attends oriental orthodox service: Not on file Active member of [...] with a left total knee replacement at [facility] on 01/09/21. I have discussed the patient's [...] expressed understanding and is agreeable to theplan. OPERATOR documented in this encounter Plan of Treatment Date Type Specialty Care Team Description 12/21/2020 Office Visit Otolaryngology David Maher M D [address] [place], [place] [address] Health Maintenance Due Date [...] of this encounter Implants Implanted Type Area Pattern Checker Device Shelf Model / Identifier Expiration Date Ser ial / Lot Mynx [employer] Supervisor Vascualr Closure Device Suture Right: Cardinal 06/10/2022 [id number] / Implanted: Qty: 1 on 12/09/2020 at [facility] Groin [id number] / [id number] documented as of this encounter Results Not on filedocumented in this encounter Visit Diagnoses Diagnosis Primary osteoarthritis of left knee - Pr imary Primary localized osteoarthrosis, lower leg documented in this encounter Insurance Payer Benefit Plan / Subscriber ID Effective Phone Address T ype Group Dates [employer] [id number] [facility] [address] [place] [address] [place] [address] (Home) [place] [address] documented as of this encounter
--- OUTSIDE RECORDS SUMMARY | 2020-12-16 23:19 | XMS REPORT | Summary of Care ---
:1960 Author Organization [facility] Address [address] [place] [address] Care Team Providers Name Role Phone Dianelys Espinoza (Physicians Supervisor Kosher Dietary Service) [phone] Eunice Espinoza Primary Care Provider Eunice Verdugo RN Primary Nurse Unavailable Reason for Referral (Routine) Status Reason Specialty Diagnoses / Referred By Referred To Procedures Contact Contact New Request Physical Therapy Diagnoses Primary osteoarthritis of left knee Liam Gomez Procedures Referral [place] (Physical Therapy) MD Eunice [address] [place] [address] Encounter Details Date Type Department Care Team Description 12/16/2020 Prep For Surgery [facility] Jason, Primary ost eoarthritis Orthopaedic Surgery- Liam Dawson MD of left knee (Primary [place] [address]) [address] [place] [phone] Allergies No Known Allergiesdocumented as of this encounter (statuses as of 12/16/2020) Medications Medication Sig Dispensed Refills Start Date [...] 81 mg by mouth 0 Active daily. [place]-3 Fatty Acids (FISH OIL Take by mouth. 0 Active CONCENTRATE) 1,000 mg Cap lisinopril 10 mg tablet Take 4 tablets by 0 10/05/20 19 Active mouth daily. 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 documented as of this encounter Last Filed Vital Signs Not on filedocumented in this encounter Plan of Treatment Date Type Specialty Care Team Description 12/21/2020 Office Visit Otolaryngology David Maher M D [address] [place] [address] [phone] Name Type Priority Associated Diagnoses Order S chedule Type and Screen - LAB Routine Primary osteoarthritis 1 Occurrences of left knee starting 2020 until 2 CBC WITH DIFF LAB Routine Primary osteoarthritis 1 Oc currences of left knee starting 2020 until 2 BASIC METABOLIC LAB Routine Primary osteoarthritis 1 Occurrences PANEL (NA, K, CL, of left knee starting 0 12/16/2020 CO2, GLUCOSE, BUN, until 03/2022 CREATININE, CA) URINALYSIS LAB Routine Primary osteoarthritis 1 Occ urrences of left knee starting 2020 until 2 XR CHEST 2 VW IMAGING Routine Primary osteoarthritis 1 Oc currences of left knee starting 2020 until 2 EKG-12 LEAD ROUTINE HEART STATION Routine Primary osteoarthrit is 1 Occurrences of left knee starting 2020 until 2 Health Maintenance Due Date Last Done Comments [...] of this encounter Implants Implanted Type Area Leave Coordinator Device Shelf Model / Identifier Expiration Date Ser ial / Lot Mynx Veterans' Coordinator Vascualr Closure Device Suture Right: Cardinal 06/10/2022 [id number] / Implanted: Qty: 1 on 12/09/2020 at [facility] Groin [id number] / [id number] documented as of this encounter Results Not on filedocumented in this encounter Visit Diagnoses Diagnosis Primary osteoarthritis of left knee - Pr imary Primary localized osteoarthrosis, lower leg documented in this encounter Insurance Payer Benefit Plan / Subscriber ID Effective Phone Address T ype Group Dates [employer] [id number] 2019-[address] [place] [address] [place] [address] documented as of this encounter
[2020-12-16] MEDS ORDERED: MORPHINE 4 MG/ML SYR ONE (23:41)
[2020-12-17] MEDS ORDERED: ONDANSETRON 4 MG/2 ML VIAL ONE (00:34)
[2020-12-17] MEDS ORDERED: MORPHINE 2 MG/ML SYR ONE ×2 (00:34→05:21)
[2020-12-17 01:08] LABS: Absolute Lymphocytes (CBC) 0.6 K/uL (0.7-4.9); Basophils % 1.1 % (0-1.3); Hematocrit 29.6 % (39.6-49.0); Lymphocytes % 10.4 % (15.3-44.8); MPV 9.5 fL (7.6-11.3); RBC Red Blood Cell Count 3.65 M/uL (4.33-5.43)
--- NOTE | 2020-12-17 01:13 | ER ---
Nurse's Notes [facility] Name: Blaise Renee Age: 60 yrs Sex: Male : 1960 Arrival Date: 12/16/2020 Time: 23:16 Bed 15 Private MD: Diagnosis: Intertrochanteric fracture of femur-right;Fall on same level from slipping, tripping and stumbling Presentation: 12/16 22:58 Chief complaint: EMS states: Pt fell from standing on his right side. The right leg is jb4 about and inch shorter than the left and externally rotated. 22:58 Coronavirus screen: Client denies travel out of the [place] in the last 14 days. At this jb4 time, the client does not indicate any symptoms associated with coronavirus-19. Ebola Screen: No symptoms or risks identified at this time. Initial Sepsis Screen: Does the patient meet any 2 criteria? No. Patient's initial sepsis screen is negative. Does the patient have a suspected source of infection? No. Patient's initial sepsis screen is negative. Risk Assessment: Do you want to hurt yourself or someone else? Patient reports no desire to harm self or others. Onset of symptoms was December 16, 2020. Transition of care: patient was not received from another setting of care. 22:58 Method Of Arrival: EMS: [facility] jb4 22:58 Acuity: TRICIA 2 jb4 22:58 Care prior to arrival: Medication(s) given: 100mcg of fentenyl. IV initiated. 18 GA, in jb4 the right hand. Mechanism of Injury: Fall from standing position. Trauma event details: Injury occurred in the [facility]. Historical: - Allergies: 22:58 No Known Allergies; jb4 - Home Meds: 22:58 amlodipine oral [Active]; clopidogrel oral oral [Active]; Spironolactone Oral [Active]; jb4 Lasix Oral [Active]; lisinopril Oral [Active]; atorvastatin oral oral [Active]; - PMHx: 22:58 Cirrhosis; Hepatitis; Hypertension; jb4 - PSHx: 22:58 None; jb4 - Immunization history:: Adult Immunizations up to date. - Social history:: Smoking status: Patient denies any tobacco usage or history of. Patient/guardian denies using alcohol, street drugs. Screenin:58 Abuse screen: Denies threats or abuse. Nutritional screening: No deficits noted. jb4 Tuberculosis screening: No symptoms or risk factors identified. Fall Risk Fall in past 12 months (25 points). IV access (20 points). Mental Status- Oriented to own ability (0 pts). Total Thompson Fall Scale indicates High Risk Score (45 or more points). Fall prevention measures have been instituted. Side Rails Up X 2 Placed Close to Nursing Station Frequent Obs/Assessments Occuring Family Present and informed to notify staff if the need to leave the bedside. Primary Survey: 22:58 NO uncontrolled hemorrhage observed. A: The patient is alert. Airway: patent, No jb4 supplemental oxygen in use on arrival. Breathing/Chest: Respiratory pattern: regular, Respiratory effort: spontaneous, unlabored, Chest inspection: symmetrical rise and fall of the chest. Circulation: Skin color: pink, Skin temperature: warm, dry. Disability Alert. Exposure/Environment: All clothing and personal items were removed. 02 00:00 Reassessment Airway Airway Patent Oxygen No O2 Oral cavity Clear +Gag reflex jb4 Breathing/Chest Respiratory pattern Regular Respiratory effort Spontaneous Unlabored Chest inspection Symmetrical Circulation Color Denio Temperature Warm Dry Disability Alert. Secondary Survey: 02 22:58 HEENT: No deficits noted. Gastrointestinal: No deficits noted. : No signs and/or jb4 symptoms were reported regarding the genitourinary system. Musculoskeletal: right leg is shorter than the left by approximately 1 inch. Is externally rotated. Assessment: 22:58 General: Appears in no apparent distress. uncomfortable, Behavior is calm, cooperative, jb4 appropriate for age. Pain: Complains of pain in Right hip Pain does not radiate. Pain currently is 4 out of 10 on a pain scale. at worst was 10 out of 10 on a pain scale. Neuro: Level of Consciousness is awake, alert, obeys commands, Oriented to person, place, time, situation. Cardiovascular: Patient's skin is warm and dry. Respiratory: Airway Respiratory effort is even, unlabored, Respiratory pattern is regular, symmetrical. GI: No signs and/or symptoms were reported involving the gastrointestinal system. : No signs and/or symptoms were reported regarding the genitourinary system. EENT: No signs and/or symptoms were reported regarding the EENT system. Derm: Skin is intact, Skin is pink, warm \T\ dry. Musculoskeletal: Circulation, motion, and sensation intact. Range of motion: intact in all extremities. 23:30 Reassessment: Patient appears in no apparent distress at this time. Patient and/or jb4 family updated on plan of care and expected duration. Pain level reassessed. Patient is alert, oriented x 3, equal unlabored respirations, skin warm/dry/pink. 12/17 00:42 Reassessment: PT remains in X-ray. jb4 01:00 Reassessment: Patient appears in no apparent distress at this time. Patient and/or jb4 family updated on plan of care and expected duration. Pain level reassessed. Patient is alert, oriented x 3, equal unlabored respirations, skin warm/dry/pink. 02:00 Reassessment: Patient appears in no apparent distress at this time. Patient and/or jb4 family updated on plan of care and expected duration. Pain level reassessed. Patient is alert, oriented x 3, equal unlabored respirations, skin warm/dry/pink. 03:00 Reassessment: Patient appears in no apparent distress at this time. Patient and/or jb4 family updated on plan of care and expected duration. Pain level reassessed. Patient is alert, oriented x 3, equal unlabored respirations, skin warm/dry/pink. Pt resting more comfortably in bed. Patient states feeling better. Vital Signs: 12/16 22:58 BP 195 / 102; Pulse 93; Resp 18; Temp 98.4(TE); Pulse Ox 97% on R/A; Weight 88 kg (R); jb4 Height 5 ft. 8 in. (172.72 cm); Pain 4/10; 23:45 BP 151 / 82; Pulse 82; Resp 16; Pulse Ox 94% on R/A; jb4 12/17 00:58 BP 183 / 83; Pulse 92; Resp 18; Pulse Ox 93% on R/A; jb4 02:00 BP 150 / 83; Pulse 99; Resp 16; Pulse Ox 91% on R/A; jb4 02:45 BP 175 / 91; Pulse 102; Resp 17; Pulse Ox 92% on R/A; jb4 03:15 BP 146 / 81; Pulse 92; Resp 18; Pulse Ox 97% on 2 lpm NC; jb4 04:15 BP 149 / 79; Pulse 89; Resp 17; Pulse Ox 99% on 2 lpm NC; jb4 12/16 22:58 Body Mass Index 29.50 (88.00 kg, 172.72 cm) jb4 Coin Coma Score: 12/16 23:45 Eye Response: spontaneous(4). Verbal Response: oriented(5). Motor Response: obeys jb4 commands(6). Total: 15. 06 00:58 Eye Response: spontaneous(4). Verbal Response: oriented(5). Motor Response: obeys jb4 commands(6). Total: 15. 02:00 Eye Response: spontaneous(4). Verbal Response: oriented(5). Motor Response: obeys jb4 commands(6). Total: 15. 02:45 Eye Response: spontaneous(4). Verbal Response: oriented(5). Motor Response: obeys jb4 commands(6). Total: 15. 03:15 Eye Response: spontaneous(4). Verbal Response: oriented(5). Motor Response: obeys jb4 commands(6). Total: 15. 04:15 Eye Response: spontaneous(4). Verbal Response: oriented(5). Motor Response: obeys jb4 commands(6). Total: 15. Trauma Score (Adult): 12/16 23:45 Eye Response: spontaneous(1); Verbal Response: oriented(1); Motor Response: obeys jb4 commands(2); Systolic BP: > 89 mm Hg(4); Respiratory Rate: 10 to 29 per min(4); Coin Score: 15; Trauma Score: 12 12/17 00:58 Eye Response: spontaneous(1); Verbal Response: oriented(1); Motor Response: obeys jb4 commands(2); Systolic BP: > 89 mm Hg(4); Respiratory Rate: 10 to 29 per min(4); Coin Score: 15; Trauma Score: 12 02:00 Eye Response: spontaneous(1); Verbal Response: oriented(1); Motor Response: obeys jb4 commands(2); Systolic BP: > 89 mm Hg(4); Respiratory Rate: 10 to 29 per min(4); Coin Score: 15; Trauma Score: 12 02:45 Eye Response: spontaneous(1); Verbal Response: oriented(1); Motor Response: obeys jb4 commands(2); Systolic BP: > 89 mm Hg(4); Respiratory Rate: 10 to 29 per min(4); Coin Score: 15; Trauma Score: 12 03:15 Eye Response: spontaneous(1); Verbal Response: oriented(1); Motor Response: obeys jb4 commands(2); Systolic BP: > 89 mm Hg(4); Respiratory Rate: 10 to 29 per min(4); Afia Score: 15; Trauma Score: 12 04:15 Eye Response: spontaneous(1); Verbal Response: oriented(1); Motor Response: obeys jb4 commands(2); Systolic BP: > 89 mm Hg(4); Respiratory Rate: 10 to 29 per min(4); Coin Score: 15; Trauma Score: 12 ED Course: 12/16 22:58 Arm band placed on right wrist. jb4 22:58 Patient has correct armband on for positive identification. Bed in low position. Call jb4 light in reach. Side rails up X 1. Pulse ox on. NIBP on. 22:58 Maintain EMS IV. Dressing intact. Good blood return noted. Site clean \T\ dry. Gauge \T\ jose raul 4 site: 18g RH. 22:58 Thermoregulation: warm blanket given to patient. jb4 22:58 Patient maintains SpO2 saturation greater than 95% on room air. jb4 23:16 Patient arrived in ED. lp1 23:18 Guillermo Preciado MD is Attending Physician. mh7 23:29 Tommie Sandoval PA is PHCP. cp 23:35 Alli Durán, THERESE is Primary Nurse. jb4 23:51 Triage completed. jb4 12/17 00:46 XRAY Pelvis In Process Unspecified. EDMS 00:46 XRAY Femur RIGHT In Process Unspecified. EDMS 00:47 XRAY Chest (1 view) In Process Unspecified. EDMS 01:12 Joe Kowalski DO is Hospitalizing Provider. cp 02:33 Gallagher cath inserted, using sterile technique, 18 Fr., by wy, balloon inflated, to ds4 gravity drainage, urine specimen collected. returned cloudy urine. Patient tolerated well. 04:26 No provider procedures requiring assistance completed. Patient admitted, IV remains in jb4 place. Administered Medications: 12/16 23:42 Not Given (Duplicate Order): morphine 4 mg IVP once; RASS on ADMIN: Combtv4, Very jb4 Agttd3, Agttd2, Rstlss1, AlertClm0, Drwsy-1, Lt Sdtn-2, Mod Sdtn-3, Dp Sdtn-4, UnArsble-5 23:43 Drug: morphine 4 mg Route: IVP; Site: right wrist; jb4 12/17 00:10 Follow up: Response: No adverse reaction; Pain is decreased; RASS: Alert and Calm (0) jb4 00:22 Drug: Zofran (Ondansetron) 4 mg Route: IVP; Site: right hand; jb4 01:00 Follow up: Response: No adverse reaction jb4 00:24 Drug: morphine 2 mg Route: IVP; Site: right hand; jb4 01:00 Follow up: Response: No adverse reaction; Pain is decreased; RASS: Alert and Calm (0) jb4 01:35 Drug: Diazepam 5 mg Route: IVP; Site: right hand; jb4 01:46 Follow up: Response: No adverse reaction; Pain is decreased 4 01:35 Drug: NS 0.9% 500 ml Route: IV; Rate: 125 ml/hr; Site: right wrist; jb4 05:05 Follow up: Response: No adverse reaction; IV Status: Infusion continued upon admission; [facility] IV Intake: 400ml 02:04 Not Given (Physician Discretion): Dilaudid 1 mg IVP once; RASS on ADMIN: Combtv4, Very cp Agttd3, Agttd2, Rstlss1, AlertClm0, Drwsy-1, Lt Sdtn-2, Mod Sdtn-3, Dp Sdtn-4, UnArsble-5 02:52 Drug: Dilaudid 0.5 mg Route: IVP; Site: right hand; jb4 03:30 Follow up: Response: No adverse reaction; Pain is decreased; RASS: Alert and Calm (0) jb4 05:05 Drug: morphine 2 mg {Note: Verbal order recieved from Jamshid Garcia NP.} Route: IVP; jb4 Site: right hand; 05:10 Follow up: Response: No adverse reaction; Pain is decreased; RASS: Alert and Calm (0) jb4 Intake: 05:05 IV: 400ml; Total: 400ml. jb4 05:10 IV: 400ml; Total: 800ml. jb4 Output: 05:10 Urine: 400ml (Gallagher); Total: 400ml. jb4 Outcome: 01:12 Decision to Hospitalize by Provider. cp 05:10 Admitted to Med/surg accompanied by nurse, accompanied by tech, via stretcher, room jb4 204, with oxygen, with chart, Report called to THERESE Espinoza 05:10 Condition: stable 05:10 Discharge instructions given to patient, Instructed on the need for admit, Demonstrated understanding of instructions. 05:10 Patient's length of stay in the Emergency Department was greater than 2 hours. PT jb4 admitted.Patient's length of stay extended due to 05:14 Patient left the ED. lp1 Signatures: Dispatcher [employer] EDMS Verna Chris, RN RN lp1 Hunter Kilgore ds4 Tommie Sandoval PA PA cp Bryson, James, RN RN jb4 Guillermo Preciado MD MD mh7
--- NOTE | 2020-12-17 01:13 | EDPHYS ---
Physician Documentation [facility] Name: Blaise Renee Age: 60 yrs Sex: Male : 1960 Arrival Date: 12/16/2020 Time: 23:16 Bed 15 Private MD: ED Physician Guillermo Preciado HPI: 12/16 23:40 This 60 yrs old Male presents to ER via EMS with complaints of Right Upper cp Leg Pain. 23:40 The patient presents with decreased range of motion, a deformity, an injury, pain, that cp is acute. The complaints affect the right hip and right upper thigh. Context: resulted from the patient falling, while standing, the patient is not able to bear weight, the patient is not able to ambulate. Onset: The symptoms/episode began/occurred just prior to arrival. Associated signs and symptoms: Pertinent negatives fever, numbness, LOC. Treatment prior to arrival includes: EMS administered 100 mcg fentanyl. Historical: - Allergies: 22:58 No Known Allergies; jb4 - Home Meds: 22:58 amlodipine oral [Active]; clopidogrel oral oral [Active]; Spironolactone Oral [Active]; jb4 Lasix Oral [Active]; lisinopril Oral [Active]; atorvastatin oral oral [Active]; - PMHx: 22:58 Cirrhosis; Hepatitis; Hypertension; jb4 - PSHx: 22:58 None; jb4 - Immunization history:: Adult Immunizations up to date. - Social history:: Smoking status: Patient denies any tobacco usage or history of. Patient/guardian denies using alcohol, street drugs. ROS: 23:45 Constitutional: Negative for body aches, chills, fever, poor PO intake. cp 23:45 Eyes: Negative for injury, pain, redness, and discharge. cp 23:45 ENT: Negative for ear pain, sore throat, difficulty swallowing, difficulty handling secretions. 23:45 Cardiovascular: Negative for chest pain, edema, palpitations. 23:45 Respiratory: Negative for cough, shortness of breath, wheezing. 23:45 Abdomen/GI: Negative for abdominal pain, nausea, vomiting, and diarrhea, constipation. 23:45 Back: Negative for pain at rest, pain with movement. 23:45 MS/extremity: Positive for injury or acute deformity, decreased range of motion, pain, swelling, tenderness, of the right upper thigh and right hip, Negative for paresthesias. 23:45 Skin: Negative for cellulitis, rash. 23:45 Neuro: Negative for altered mental status, headache, loss of consciousness, syncope, weakness. 23:45 All other systems are negative. Exam: 23:50 Constitutional: The patient appears in no acute distress, alert, awake, cp non-diaphoretic, non-toxic, well developed, well nourished, in obvious pain, uncomfortable. 23:50 Head/Face: Normocephalic, atraumatic. cp 23:50 Eyes: Periorbital structures: appear normal, Conjunctiva: normal, no exudate, no injection, Sclera: no appreciated abnormality, Lids and lashes: appear normal, bilaterally. 23:50 ENT: External ear(s): are unremarkable, Nose: is normal, Mouth: Lips: moist, Oral mucosa: moist, Posterior pharynx: is normal, airway is patent. 23:50 Neck: ROM/movement: is normal, is supple, without pain, no range of motions limitations. 23:50 Chest/axilla: Inspection: normal, Palpation: is normal, no crepitus, no tenderness. 23:50 Cardiovascular: Rate: normal, Rhythm: regular, Pulses: Pulses are 2+ in right dorsalis pedis artery and left dorsalis pedis artery. JVD: is not appreciated. 23:50 Respiratory: the patient does not display signs of respiratory distress, Respirations: normal, no use of accessory muscles, no retractions, labored breathing, is not present, Breath sounds: are clear throughout, no decreased breath sounds. 23:50 Abdomen/GI: Inspection: distension, that is moderate, Bowel sounds: active, all quadrants, Palpation: abdomen is soft and non-tender, in all quadrants. 23:50 Back: pain, is absent, ROM is normal. 23:50 Musculoskeletal/extremity: Extremities: grossly normal except: noted in the right hip and right upper thigh: decreased ROM, swelling, tenderness, ROM: limited passive range of motion due to pain, in the right hip. 23:50 Skin: cellulitis, is not appreciated, no rash present. 23:50 Neuro: Orientation: to person, place \\T\\ time. Mentation: is normal, Cerebellar function: is grossly normal, Motor: moves all fours, strength is normal, Sensation: is normal. Vital Signs: 22:58 BP 195 / 102; Pulse 93; Resp 18; Temp 98.4(TE); Pulse Ox 97% on R/A; Weight 88 kg (R); jb4 Height 5 ft. 8 in. (172.72 cm); Pain 02/18; 23:45 BP 151 / 82; Pulse 82; Resp 16; Pulse Ox 94% on R/A; jb4 12/17 00:58 BP 183 / 83; Pulse 92; Resp 18; Pulse Ox 93% on R/A; jb4 02:00 BP 150 / 83; Pulse 99; Resp 16; Pulse Ox 91% on R/A; jb4 02:45 BP 175 / 91; Pulse 102; Resp 17; Pulse Ox 92% on R/A; jb4 03:15 BP 146 / 81; Pulse 92; Resp 18; Pulse Ox 97% on 2 lpm NC; jb4 04:15 BP 149 / 79; Pulse 89; Resp 17; Pulse Ox 99% on 2 lpm NC; jb4 12/16 22:58 Body Mass Index 29.50 (88.00 kg, 172.72 cm) jb4 Lockhart Coma Score: 12/16 23:45 Eye Response: spontaneous(4). Verbal Response: oriented(5). Motor Response: obeys jb4 commands(6). Total: 15. 12/17 00:58 Eye Response: spontaneous(4). Verbal Response: oriented(5). Motor Response: obeys jb4 commands(6). Total: 15. 02:00 Eye Response: spontaneous(4). Verbal Response: oriented(5). Motor Response: obeys jb4 commands(6). Total: 15. 02:45 Eye Response: spontaneous(4). Verbal Response: oriented(5). Motor Response: obeys jb4 commands(6). Total: 15. 03:15 Eye Response: spontaneous(4). Verbal Response: oriented(5). Motor Response: obeys jb4 commands(6). Total: 15. 04:15 Eye Response: spontaneous(4). Verbal Response: oriented(5). Motor Response: obeys jb4 commands(6). Total: 15. Trauma Score (Adult): 12/16 23:45 Eye Response: spontaneous(1); Verbal Response: oriented(1); Motor Response: obeys jb4 commands(2); Systolic BP: > 89 mm Hg(4); Respiratory Rate: 10 to 29 per min(4); Afia Score: 15; Trauma Score: 12 02/06 00:58 Eye Response: spontaneous(1); Verbal Response: oriented(1); Motor Response: obeys jb4 commands(2); Systolic BP: > 89 mm Hg(4); Respiratory Rate: 10 to 29 per min(4); Afia Score: 15; Trauma Score: 12 02:00 Eye Response: spontaneous(1); Verbal Response: oriented(1); Motor Response: obeys jb4 commands(2); Systolic BP: > 89 mm Hg(4); Respiratory Rate: 10 to 29 per min(4); Afia Score: 15; Trauma Score: 12 02:45 Eye Response: spontaneous(1); Verbal Response: oriented(1); Motor Response: obeys jb4 commands(2); Systolic BP: > 89 mm Hg(4); Respiratory Rate: 10 to 29 per min(4); Afia Score: 15; Trauma Score: 12 03:15 Eye Response: spontaneous(1); Verbal Response: oriented(1); Motor Response: obeys jb4 commands(2); Systolic BP: > 89 mm Hg(4); Respiratory Rate: 10 to 29 per min(4); Lockhart Score: 15; Trauma Score: 12 04:15 Eye Response: spontaneous(1); Verbal Response: oriented(1); Motor Response: obeys jb4 commands(2); Systolic BP: > 89 mm Hg(4); Respiratory Rate: 10 to 29 per min(4); Lockhart Score: 15; Trauma Score: 12 MDM: 12/16 23:38 Patient medically screened. 12/17 00:00 Differential diagnosis: dislocation, open fracture, closed fracture, contusion. 01:00 Physician consultation: Josh Watson MD was called at 01:01, was contacted at 01:01, regarding consult, patient's condition, left message on voicemail. 01:00 Data reviewed: vital signs, nurses notes, radiologic studies, plain films. 01:00 Counseling: I had a detailed discussion with the patient and/or guardian regarding: the historical points, exam findings, and any diagnostic results supporting the discharge/admit diagnosis, radiology results, the need for further work-up and treatment in the hospital. Response to treatment: the patient's symptoms have markedly improved after treatment, and as a result, I will admit patient. 01:10 ED course: Patient reports he has seen DR Gomez in the past for knee pain. DR ifrah Gomez contacted \\[id number] and will see patient later this morning. Wants patient kept npo and admitted to hospitalist. 12/17 00:39 Order name: Basic Metabolic Panel; Complete Time: 01:28 cp 12/17 01:28 Interpretation: Normal except: CL 111; GLUC 183; CA 7.9. cp 12/17 00:39 Order name: CBC with Diff; Complete Time: 01:28 cp 12/17 01:29 Interpretation: Normal except: RBC 3.65; HGB 9.8; HCT 29.6; MCH 26.8; PLT 142; KAYCEE% cp 81.9; LYM% 10.4; LYMA 0.6. 12/17 00:39 Order name: LFT's; Complete Time: 01:28 cp 12/17 00:39 Order name: Magnesium; Complete Time: 01:28 cp 12/17 00:39 Order name: NT PRO-BNP; Complete Time: 01:28 cp 12/17 00:39 Order name: PT-INR; Complete Time: 01:28 cp 12/16 23:38 Order name: XRAY Pelvis cp 12/16 23:38 Order name: XRAY Femur RIGHT cp 12/17 00:39 Order name: Troponin (emerg Dept Use Only); Complete Time: 01:28 cp 12/17 00:39 Order name: XRAY Chest (1 view) cp 12/17 00:39 Order name: COVID-19 : Document "Date of Symptom Onset" if Symptomatic. cp 12/17 00:51 Order name: Type And Screen cp 12/17 02:35 Order name: ABO/RH no charge EDMS 12/17 04:05 Order name: SARS-COV-2 RT PCR EDMS 12/16 23:38 Order name: IV; Complete Time: 23:48 cp 12/17 00:39 Order name: EKG; Complete Time: 00:40 cp 12/17 00:39 Order name: Cardiac monitoring; Complete Time: 01:36 cp 12/17 00:39 Order name: EKG - Nurse/Tech; Complete Time: 01:36 cp 12/17 00:39 Order name: Labs collected and sent; Complete Time: 00:56 cp 12/17 00:39 Order name: O2 Per Protocol; Complete Time: 00:43 cp 12/17 00:39 Order name: O2 Sat Monitoring; Complete Time: 00:43 cp 12/17 01:10 Order name: Gallagher; Complete Time: 02:36 lp1 12/17 01:10 Order name: Urine Dipstick-Ancillary (obtain specimen); Complete Time: 02:36 cp Administered Medications: 12/16 23:42 Not Given (Duplicate Order): morphine 4 mg IVP once; RASS on ADMIN: Combtv4, Very jb4 Agttd3, Agttd2, Rstlss1, AlertClm0, Drwsy-1, Lt Sdtn-2, Mod Sdtn-3, Dp Sdtn-4, UnArsble-5 23:43 Drug: morphine 4 mg Route: IVP; Site: right wrist; 4 12/17 00:10 Follow up: Response: No adverse reaction; Pain is decreased; RASS: Alert and Calm (0) jb4 00:22 Drug: Zofran (Ondansetron) 4 mg Route: IVP; Site: right hand; jb4 01:00 Follow up: Response: No adverse reaction 4 00:24 Drug: morphine 2 mg Route: IVP; Site: right hand; jb4 01:00 Follow up: Response: No adverse reaction; Pain is decreased; RASS: Alert and Calm (0) jb4 01:35 Drug: Diazepam 5 mg Route: IVP; Site: right hand; jb4 01:46 Follow up: Response: No adverse reaction; Pain is decreased 4 01:35 Drug: NS 0.9% 500 ml Route: IV; Rate: 125 ml/hr; Site: right wrist; jb4 05:05 Follow up: Response: No adverse reaction; IV Status: Infusion continued upon admission; [facility] IV Intake: 400ml 02:04 Not Given (Physician Discretion): Dilaudid 1 mg IVP once; RASS on ADMIN: Combtv4, Very cp Agttd3, Agttd2, Rstlss1, AlertClm0, Drwsy-1, Lt Sdtn-2, Mod Sdtn-3, Dp Sdtn-4, UnArsble-5 02:52 Drug: Dilaudid 0.5 mg Route: IVP; Site: right hand; [facility] 03:30 Follow up: Response: No adverse reaction; Pain is decreased; RASS: Alert and Calm (0) [facility] 05:05 Drug: morphine 2 mg {Note: Verbal order recieved from Jamshid Garcia NP.} Route: IVP; [facility] Site: right hand; 05:10 Follow up: Response: No adverse reaction; Pain is decreased; RASS: Alert and Calm (0) [facility] Disposition: 07:10 Co-signature as Attending Physician, Guillermo Preciado MD. 7 Disposition: 12/17/20 01:12 Hospitalization ordered by Joe Kowalski for Inpatient Admission. Preliminary diagnosis are Intertrochanteric fracture of femur - right, Fall on same level from slipping, tripping and stumbling. - Bed requested for Telemetry/MedSurg (Inpatient). - Status is Inpatient Admission. lp1 - Condition is Stable. - Problem is new. - Symptoms have improved. Signatures: Dispatcher [employer] EDMS Verna Chris RN RN lp1 Tommie Sandoval PA PA cp Keisha Tian RN RN Alli Durán RN RN [facility] Guillermo Preciado MD MD [facility] Corrections: (The following items were deleted from the chart) 01:28 01:28 Normal except: CL 111; GLUC 183. cp cp 04:23 01:12 Hospitalization Ordered by Joe Kowalski DO for Inpatient Admission. Preliminary cg diagnosis is Intertrochanteric fracture of femur - right; Fall on same level from slipping, tripping and stumbling. Bed requested for Telemetry/MedSurg (Inpatient). Status is Inpatient Admission. Condition is Stable. Problem is new. Symptoms have improved. cp 04:50 04:23 12/17/2020 01:12 Hospitalization Ordered by Joe Kowalski DO for Inpatient cg Admission. Preliminary diagnosis is Intertrochanteric fracture of femur - right; Fall on same level from slipping, tripping and stumbling. Bed requested for Telemetry/MedSurg (Inpatient). Status is Inpatient Admission. Condition is Stable. Problem is new. Symptoms have improved. cg 05:14 04:50 12/17/2020 01:12 Hospitalization Ordered by Joe Kowalski DO for Inpatient lp1 Admission. Preliminary diagnosis is Intertrochanteric fracture of femur - right; Fall on same level from slipping, tripping and stumbling. Bed requested for Telemetry/MedSurg (Inpatient). Status is Inpatient Admission. Condition is Stable. Problem is new. Symptoms have improved. cg
[2020-12-17 01:15] LABS: Protime INR 0.92
[2020-12-17 01:26] LABS: ALT/SGPT 31 U/L (12-78); AST/SGOT 47 U/L (15-37); Albumin 2.5 g/dL (3.4-5.0); Alkaline Phosphatase 102 U/L (45-117); BUN Blood Urea Nitrogen 14 mg/dL (7-18); Bicarbonate 25 mmol/L (21-32); Bilirubin Direct < 0.1 mg/dL (0-0.2); Bilirubin Total 0.2 mg/dL (0.2-1.0); Glucose Level 183 mg/dL (74-106); NT PRO-BNP 197 pg/mL (<125); Potassium 4.2 mmol/L (3.5-5.1); Protein, Total 6.2 g/dL (6.4-8.2); Sodium Level 142 mmol/L (136-145); Troponin (Emerg Dept Use Only) < 0.02 ng/mL (0.0-0.045)
[2020-12-17] MEDS ORDERED: DIAZEPAM 10 MG/2 ML INJ SYRINGE ONE (01:43)
[2020-12-17] MEDS ORDERED: NA CHLORIDE 0.9% 500 ML ONE (01:43)
--- NOTE | 2020-12-17 02:05 | P.HP ---
Certification for Inpatient Patient admitted to: Inpatient With expected LOS: >2 Midnights Patient will require the following post-hospital care: None Practitioner: I am a practitioner with admitting privileges, knowledge of patient current condition, hospital course, and medical plan of care. Services: Services provided to patient in accordance with Admission requirements found in Title 42 Section 412.3 of the Code of Federal Regulations <Jamshid Garcia - Last Filed: 12/17/20 01:57> Patient admitted to: Inpatient <Joe Kowalski - Last Filed: 12/17/20 14:49> Patient History Date of Service: 12/17/20 Primary Care Provider: Dr. Lara Reason for admission: Right intertrochanteric femur fracture History of Present Illness: 60-year-old male with history of CVA, hypertension, cirrhosis secondary to hepatitis-C presents emergency department for right leg pain. Patient reports that he was laying in bed when he began to have cramping in his feet so he got up to get a banana, while Getting banana he reports that he leaned back too far losing his balance and falling backwards, patient denies LOC, chest pain, palpitations, headache. Patient with severe right hip pain called EMS for transportation to the hospital, right leg externally rotated and shortened. Patient evaluated in the ER, right intertrochanteric femur fracture identified, labs significant for hemoglobin 9.8 hematocrit 29.6 MCV 81.2 platelets 142 INR normal chemistries significant for hyperglycemia glucose 183, noted no diabetes history. ED provider discuss case with Orthopedics, recommend admission for further evaluation and management. - Past Medical/Surgical History Diabetic: No -: CVA (11/11/2017) -: Fall(05/27/19) -: Hep C -: HTN -: Carotid artery stenosis Psychosocial/ Personal History: Patient is disabled, lives with a son - Family History Father -: Stroke - Social History Smoking Status: Current every day smoker Counseled patient to stop smoking for: less than 10 minutes Alcohol use: No CD- Drugs: No Caffeine use: Yes Place of Residence: Home <Jamshid Garcia - Last Filed: 12/17/20 01:57> Date of Service: 12/17/20 <Joe Kowalski - Last Filed: 12/17/20 14:49> Allergies No Known Allergies Allergy (Verified 12/17/20 05:51) Home Medications: Amlodipine [Norvasc*] 5 mg PO DAILY 05/28/19 Atorvastatin Calcium [Lipitor*] 20 mg PO BEDTIME 05/28/19 Clopidogrel Bisulfate [Plavix*] 75 mg PO DAILY 05/28/19 lisinopriL [Prinivil*] 40 mg PO DAILY 05/28/19 Furosemide [Lasix*] 40 mg PO DAILY #20 tab 06/01/19 Spironolactone [Aldactone] 100 mg PO DAILY 12/17/20 Review of Systems Gastrointestinal: Distention Musculoskeletal: Leg Pain, As per HPI <Jamshid Garcia - Last Filed: 12/17/20 01:57> Physical Examination - Physical Exam General: Alert, In no apparent distress, Oriented x3 HEENT: Atraumatic, Normocephalic, Mucous membr. moist/pink Neck: Supple Respiratory: Clear to auscultation bilaterally, Normal air movement Cardiovascular: Regular rate/rhythm, Normal S1 S2 Capillary refill: <2 Seconds Gastrointestinal: Normal bowel sounds, Ascites (Abdomen soft, distended) Musculoskeletal: Other (External rotation, shortening of the right leg, good pulses distal to the injury) Integumentary: No erythema Neurological: Normal speech, Normal tone, Sensation intact - Studies Laboratory Data (last 24 hrs) 12/17/20 00:57: PT 10.6, INR 0.92 12/17/20 00:57: WBC 5.80, Hgb 9.8 L, Hct 29.6 L, Plt Count 142 L 12/17/20 00:57: Sodium 142, Potassium 4.2, BUN 14, Creatinine 0.72, Glucose 183 H, Magnesium 2.0, Total Bilirubin 0.2, AST 47 H, ALT 31, Alkaline Phosphatase 102 <Jamshid Garcia - Last Filed: 12/17/20 01:57> - Studies Laboratory Data (last 24 hrs) 12/17/20 00:57: PT 10.6, INR 0.92 12/17/20 00:57: WBC 5.80, Hgb 9.8 L, Hct 29.6 L, Plt Count 142 L 12/17/20 00:57: Sodium 142, Potassium 4.2, BUN 14, Creatinine 0.72, Glucose 183 H, Magnesium 2.0, Total Bilirubin 0.2, AST 47 H, ALT 31, Alkaline Phosphatase 102 <Joe Kowalski - Last Filed: 12/17/20 14:49> Assessment and Plan - Plan Assessment Right intertrochanteric femur fracture 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 P.r.n. pain and nausea medications. DVT prophylaxis with SCDs. Hold Plavix, patient reports he last took Plavix on 12/15/2020. Appreciate further input from ortho. Patient will likely require inpatient rehab versus home with home health/physical therapy at discharge. Cirrhosis with ascites secondary to chronic hepatitis-C: Patient with chronic cirrhosis with ascites, patient reports he usually has paracentesis performed every 6-7 months, last thoracentesis was approximately 6 months ago. Patient takes Lasix and prolactin home, continue with IV Lasix at this time, will restart oral medications when patient is no longer NPO. Abdomen is distended but soft, no tense ascites noted. INR within normal limits. Continue to monitor closely. Normocytic anemia: Acute blood-loss anemia nurses anemia chronic disease, repeat CBC with morning labs. Hypertension: Continue home medications when patient no longer NPO, p.r.n. IV medications for now. Hyperlipidemia: Restart medications when appropriate History of CVA: Hold Plavix for now, restart medications when appropriate. Hyperglycemia: No known diabetes history, A1c with morning labs. Discharge Plan: Home Plan to discharge in: Greater than 2 days - Advance Directives Does patient have a Living Will: No Does patient have a Durable POA for Healthcare: No - Code Status/Comfort Care Code Status Assessed: Yes (Full code) Critical Care: No Time Spent Managing Pts Care (In Minutes): 55 <Jamshid Garcia - Last Filed: 12/17/20 01:57> - Plan Case discussed in detail with nurse practitioner. Agree with plan of care. <Joe Kowalski - Last Filed: 12/17/20 14:49>
[2020-12-17] MEDS ORDERED: HYDROMORPHONE HCL 0.5 MG/0.5 ML INJ ONE (02:55)
[2020-12-17] MEDS ORDERED: ONDANSETRON 4 MG/2 ML VIAL IV PRN (05:04)
[2020-12-17] MEDS ORDERED: ACETAMINOPHEN 500 MG TAB PO PRN (05:04)
[2020-12-17] MEDS ORDERED: HYDRALAZINE HCL 20 MG/ML VIAL IV PRN (05:04)
[2020-12-17] MEDS: NICOTINE 21 MG/PAT TD SCH ×2 (05:47→08:50)
[2020-12-17 06:08] VITALS: BMI 29.7
[2020-12-17 06:14] LABS: Absolute Lymphocytes (CBC) 0.7 K/uL (0.7-4.9); Basophils % 0.8 % (0-1.3); Hematocrit 28.5 % (39.6-49.0); Lymphocytes % 9.7 % (15.3-44.8); MPV 9.3 fL (7.6-11.3); RBC Red Blood Cell Count 3.54 M/uL (4.33-5.43)
[2020-12-17 06:21] LABS: Urine Appearance CLOUDY; Urine Bilirubin NEGATIVE (NEG); Urine Blood 2+ (NEG); Urine Color YELLOW; Urine Glucose NEGATIVE (NEG); Urine Microscopic Reflex ORDER UMIC; Urine Protein 3+ (NEG); Urine Specific Gravity 1.025 (1.005-1.030); Urine Urobilinogen 0.2 mg/dL (0.2-1.0); Urine pH 5.5 (5.0-7.0)
[2020-12-17 06:27] LABS: BUN Blood Urea Nitrogen 12 mg/dL (7-18); Bicarbonate 25 mmol/L (21-32); Glucose Level 139 mg/dL (74-106); Magnesium 2.1 mg/dL (1.8-2.4); Potassium 4.2 mmol/L (3.5-5.1); Sodium Level 143 mmol/L (136-145)
[2020-12-17 08:03] LABS: Urine Amorphous Sediment 1+ /HPF (NONE SEEN); Urine Bacteria <20 /HPF (NONE SEEN)
--- NOTE | 2020-12-17 08:45 | P.PN ---
Subjective Date of Service: 12/17/20 Primary Care Provider: Dr. Lara Chief Complaint: Right intertrochanteric femur fracture Subjective: Other (Patient stable. Doing well this time. Patient with history of hypertension, cirrhosis, and prior CVA. Patient recently evaluated by Neurology at [facility] for chronic vertigo. Recent workup unremarkable. To be seen by ENT later this month. Patient fell and fractured right femur.) Physical Examination - Vital Signs Temperature: 99.7 F Blood Pressure: 140/73 Pulse: 63 Respirations: 20 Pulse Ox (%): 96 - Studies Laboratory Data (last 24 hrs) 12/17/20 00:57: PT 10.6, INR 0.92 12/17/20 00:57: WBC 5.80, Hgb 9.8 L, Hct 29.6 L, Plt Count 142 L 12/17/20 00:57: Sodium 142, Potassium 4.2, BUN 14, Creatinine 0.72, Glucose 183 H, Magnesium 2.0, Total Bilirubin 0.2, AST 47 H, ALT 31, Alkaline Phosphatase 102 Assessment & Plan Discharge Plan: Home Plan to discharge in: Greater than 2 days Physician Review Additional Text: Chief complaint: Patient status post fall after losing his balance now with right femur fracture Physical exam: Patient alert, cooperative without significant distress. Heart: Regular rate and rhythm Lungs: Clear to auscultation Abdomen: Mild ascites. No significant distention. Soft nontender. Extremities: Good range of motion. No significant edema. Mild cramping to the lower extremity. Impression: Fall with chronic vertigo now with Right intertrochanteric femur fracture Cirrhosis with ascites secondary to chronic hepatitis-C Anemia of chronic disease Hypertension Hyperlipidemia History of CVA Hyperglycemia Chronic vertigo Plan: Fall with chronic vertigo now with Right intertrochanteric femur fracture: Spoke with orthopedics today. Orthopedics plans for surgery tomorrow. Orthopedics request cardiac evaluation for cardiac clearance. Patient with history of hypertension, hyperlipidemia, CVA, and cirrhosis. Patient also a recently seen by Neurology at [facility] for chronic vertigo. Neuro workup was unremarkable. Patient to see ENT on the 21 of December to further evaluate. Will hold Plavix. Provide DVT prophylaxis-Lovenox. Continue with Lasix, Aldactone, Norvasc, Lipitor and lisinopril. Anticipate clearance with surgery tomorrow. Patient likely home with home health and physical therapy 2-3 days after surgery. Will need to consider inpatient rehab if with difficulty after surgery. Will continue to monitor closely. Will discuss further with orthopedics and cardiology. Cirrhosis with ascites secondary to chronic hepatitis-C: Continue Lasix and Aldactone. No need for paracentesis. Anemia of chronic disease: Overall stable. Maintain hemoglobin above 7.0. Will monitor closely. Will check iron and B12 studies. Hypertension: Continue Norvasc and lisinopril. Will monitor and adjust appropriately Hyperlipidemia: Continue Lipitor History of CVA: Hold Plavix today in preparation for surgery. Restart after surgery. Seen by neurology as an outpatient. To see ENT for chronic vertigo. Hyperglycemia: Will evaluate for diabetes. Check A1c. Chronic vertigo: Patient recently evaluated by neurology [facility]. No vascular issues noted. To see ENT soon in the near future to further evaluate. Fall precautions in place. Time Spent Managing Pts Care (In Minutes): 55
[2020-12-17] MEDS: lisinopriL 20 MG TAB PO SCH (08:50)
[2020-12-17] MEDS: FUROSEMIDE 40 MG TABLET PO SCH (08:51)
[2020-12-17] MEDS ORDERED: AMLODIPINE 5 MG TAB PO SCH (09:00)
[2020-12-17] MEDS ORDERED: FUROSEMIDE 20 MG/ 2ML VIAL IV SCH (09:00)
[2020-12-17] MEDS ORDERED: HOME MED 1 EA UNK (Spironolactone [Aldactone] 50 MG Tablet) PO SCH (09:00)
[2020-12-17] MEDS: SPIRONOLACTONE 100 MG TAB PO SCH (09:22)
[2020-12-17] MEDS: MORPHINE 2 MG/ML SYR IV PRN ×2 (09:22→13:06)
--- NOTE | 2020-12-17 09:33 | CON ---
Date of Consultation: 12/17/2020 History Of Present Illness: This is my first time seeing this patient to my knowledge. He is a 60-y ear-old male, who has significant medical issues including a history of cirrhosis as well as vertigo and history of CVA. Unfortunately fell overnight injuring his right lower extremity. He was seen an d examined in the emergency department, where he was ruled out for other injuries. Unfortunately, an x-ray does demonstrated a displaced intertrochanteric fracture which was comminuted on the right. Physical Examination: All of his long bones and joints are palpated without pain or crepitation with the exception of a sig nificant pain related to his right hip. Imaging: X-rays were reviewed, which do reveal a comminuted intertrochanteric fracture on the right. Assessment: This is a 60-year-old male noted with a comminuted intertrochanteric fracture on the rig ht and multiple medical issues. I have spoken with Dr. Kowalski, will obtain a cardiac evaluation and clearance today, go and let him eat today, n.p.o. after midnight. We plan on placing intramedullary salvador there tomorrow. Risks, benefits, and alternatives of this procedure have been discussed with the patient. He states he understands things as presented and wishes to proceed. /ELAINA Voice ID: [id number] Report ID: [id number]
[2020-12-17] MEDS: FENTANYL CITR 100 MCG/2 ML IV PRN ×3 (15:03→23:18)
--- NOTE | 2020-12-17 17:20 | RAD REPORT ---
EXAM DESCRIPTION: RAD - Femur Right - 12/17/2020 12:46 am CLINICAL HISTORY: Pain;Deformity Femur Right COMPARISON: None. TECHNIQUE: XR FEMUR 12/16/2020 11:38 PM CITY ENGINEER FINDINGS: There is intratrochanteric fracture of the right femur with angulation. There is mild narr owing of the right hip joint. Soft tissues are unremarkable. IMPRESSION: Proximal right femur fracture. Electronically signed by: Zaid Lopez MD 12/17/2020 1:39 AM CITY ENGINEER Due to temporary technical issues with the PACS/Fluency reporting system, reports are being signed by the in house radiologists without review as a courtesy to insure prompt reporting. The interpreting radiologist is fully responsible for the content of the report.
--- NOTE | 2020-12-17 17:22 | RAD REPORT ---
EXAM DESCRIPTION: RAD - Pelvis - 12/17/2020 12:46 am CLINICAL HISTORY: Fall COMPARISON: None. TECHNIQUE: XR PELVIS 1-2 VIEWS 12/16/2020 11:38 PM CARDIAC REHABILITATION PROGRAM DIRECTOR FINDINGS: There is an angulated intratrochanteric fracture of the right femur. There is mild narrowi ng of both hip joints. Soft tissues are unremarkable. IMPRESSION: Right femur fracture. Electronically signed by: Zaid Lopez MD 12/17/2020 1:38 AM CARDIAC REHABILITATION PROGRAM DIRECTOR Due to temporary technical issues with the PACS/Fluency reporting system, reports are being signed by the in house radiologists without review as a courtesy to insure prompt reporting. The interpreting radiologist is fully responsible for the content of the report.
--- NOTE | 2020-12-17 17:23 | RAD REPORT ---
EXAM DESCRIPTION: RAD - Chest Single View - 12/17/2020 12:47 am COMPARISON: None. TECHNIQUE: XR CHEST 1 VIEW 12/17/2020 12:39 AM PHYS ASST FINDINGS: Cardiac silhouette is normal in size. There is a right basilar area of atelectasis. There is a small right pleural effusion. There is no pneumothorax. There are no acute osseous findings. IMPRESSION: Small right pleural effusion. Electronically signed by: Zaid Lopez MD 12/17/2020 1:38 AM PHYS ASST Due to temporary technical issues with the PACS/Fluency reporting system, reports are being signed by the in house radiologists without review as a courtesy to insure prompt reporting. The interpreting radiologist is fully responsible for the content of the report.
[2020-12-17] MEDS: HYDROCODONE/APAP 7.5/325 MG TAB PO PRN (17:48)
[2020-12-17] MEDS: ATORVASTATIN 20 MG TAB PO SCH (19:37)
[2020-12-18] MEDS: FENTANYL CITR 100 MCG/2 ML IV PRN ×3 (04:45→23:30)
[2020-12-18 05:14] LABS: Basophils % 0.9 % (0-1.3); Hematocrit 28.5 % (39.6-49.0); Lymphocytes % 16.7 % (15.3-44.8); MPV 9.2 fL (7.6-11.3); RBC Red Blood Cell Count 3.54 M/uL (4.33-5.43)
[2020-12-18 06:07] LABS: BUN Blood Urea Nitrogen 12 mg/dL (7-18); Bicarbonate 28 mmol/L (21-32); Ferritin 17.6 ng/mL (26-388); Glucose Level 126 mg/dL (74-106); Magnesium 1.8 mg/dL (1.8-2.4); Potassium 3.6 mmol/L (3.5-5.1); Sodium Level 139 mmol/L (136-145); Transferrin 327 mg/dL (200-360)
[2020-12-18] MEDS ORDERED: Ringers Lactate 1,000 ML IV ONE ×2 (06:46→08:53)
[2020-12-18] MEDS ORDERED: dexAMETHasone 4 MG/ML VIAL ONE (06:52)
[2020-12-18] MEDS ORDERED: FENTANYL CITR 100 MCG/2 ML ONE ×2 (06:52→08:07)
[2020-12-18] MEDS ORDERED: propofoL 200 MG/20 ML VIAL IV ONE (06:52)
[2020-12-18] MEDS ORDERED: MIDAZOLAM HCL 2 MG/2 ML INJ ONE (06:52)
[2020-12-18] MEDS ORDERED: KETOROLAC 30 MG/ML INJ ONE (06:53)
[2020-12-18] MEDS ORDERED: LIDOCAINE 1% MPF 5 ML VIAL ONE (06:53)
[2020-12-18] MEDS ORDERED: ONDANSETRON 4 MG/2 ML VIAL ONE (06:53)
[2020-12-18] MEDS ORDERED: CEFAZOLIN/SWI 1gm 1 GM/10 ML SYR ONE (07:09)
[2020-12-18] MEDS ORDERED: TRANEXAMIC ACID 1,000 MG in NA CHLORIDE 0.9% 50 ML IV ONE (08:00)
--- NOTE | 2020-12-18 08:27 | P.BOP ---
Preoperative diagnosis: right proximal femur fracture Postoperative diagnosis: same Primary procedure: right desiree salvador Estimated blood loss: 50 Anesthesia: General Transferred to: Recovery Room Condition: Good
[2020-12-18] MEDS ORDERED: MAGNESIUM SULFATE 1 gm IVPB 1 GM/100 ML BAG IV ONE (09:00)
[2020-12-18] MEDS ORDERED: KCL 20 MEQ/100 mL IVPB 20 MEQ/100 ML BAG IV SCH (09:00)
--- NOTE | 2020-12-18 09:19 | OP ---
Date of Procedure: 12/18/2020 Surgeon: Josh Watson MD Preoperative Diagnosis: Right comminuted intertrochanteric fracture with some subtrochanteric extens ion. Postoperative Diagnosis: Right comminuted intertrochanteric fracture with some subtrochanteric exten sina. Procedure: Right hip closed reduction and intramedullary salvador fixation using an Affixus Biomet nail. Estimated Blood Loss: 50 cc. Complications: There were no complications. Pathology Specimen: No pathology specimen sent. Indications For Operation: Mr. Renee is a 60-year-old gentleman who unfortunately fell injuring his right lower extremity. He was seen and examined in the emergency department, was ruled out for othe r injuries. Unfortunately, x-rays revealed a displaced comminuted intertrochanteric fracture of the hip with subtrochanteric extension. Risks, benefits, and alternatives to operative and nonoperative methods of management including methods of management had been discussed with the patient. He states he understands things as presented. At this time, we will proceed with an intramedullary salvador. Procedure In Detail: The patient was to taken to the operating room and placed in supine position. General anesthesia was obtained by staff. Following this, he was then transferred to the fracture ta ble. He was in appropriate position with all bony prominences being checked by Anesthesia. After th is, he was appropriately positioned on the fracture table and a closed reduction was then achieved wi thout difficulty and good biplanar C-arm radiography confirmed this. After this, his right lower ext remity was then prepped and draped in the usual sterile fashion for procedure. After this, the great er trochanter was marked out. A vertical incision was made above the greater trochanter. This was t aken down carefully through the skin and fascia. Fingers were placed and the greater trochanter was palpated and a starting point was made just medial to the greater trochanter because of comminution. After this, the guide salvador was placed and collator hand was then reamed down to past the lesser trochan ter. This was followed by placement of the nail. The nail appeared to fit well and cephalomedullary screws were placed in standard fashion being checked on biplanar C-arm radiography. This finally lo cked distally. The wounds were irrigated. The fascia was closed followed by closure of the skin wit h Vicryl and danilo. The patient was placed in Aquacel dressing, awakened, and taken to recovery ro om in good condition. No complications. SE/MODL Voice ID: [id number] Report ID: [id number]
[2020-12-18] MEDS ORDERED: POTASSIUM CL SA 10 MEQ TAB PO ONE (09:35)
[2020-12-18] MEDS: HYDROCODONE/APAP 7.5/325 MG TAB PO PRN ×2 (09:57→20:06)
[2020-12-18] MEDS: NICOTINE 21 MG/PAT TD SCH (09:57)
[2020-12-18] MEDS: FUROSEMIDE 40 MG TABLET PO SCH (09:58)
[2020-12-18] MEDS: AMLODIPINE 5 MG TAB PO SCH (09:58)
[2020-12-18] MEDS: lisinopriL 20 MG TAB PO SCH (09:58)
[2020-12-18] MEDS: SPIRONOLACTONE 100 MG TAB PO SCH (10:32)
--- NOTE | 2020-12-18 11:42 | RAD REPORT ---
EXAM DESCRIPTION: RAD - Hip In Or - 12/18/2020 8:47 am CLINICAL HISTORY: R HIP RODDING IN OR4 WITH COMPARISON: Pelvis dated 12/17/2020 FINDINGS: Fluoroscopy time 2.2 minutes.
--- NOTE | 2020-12-18 11:46 | P.PN ---
Subjective Date of Service: 12/18/20 Primary Care Provider: Dr. Lara Chief Complaint: Right intertrochanteric femur fracture Subjective: Other (patient is stable. Patient to have surgery today.) Physical Examination - Vital Signs Temperature: 98.0 F Blood Pressure: 161/85 Pulse: 96 Respirations: 18 Pulse Ox (%): 94 Assessment & Plan Discharge Plan: Home (With home health and physical therapy) Plan to discharge in: 72 Hours Physician Review Additional Text: Chief complaint: Patient status post fall after losing his balance now with right femur fracture Physical exam: Patient alert, cooperative without significant distress. Heart: Regular rate and rhythm Lungs: Clear to auscultation Abdomen: Mild ascites. No significant distention. Soft nontender. Extremities: Good range of motion. No significant edema. Mild cramping to the lower extremity. 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 Patient to have procedure. Spoke with orthopedics after the procedure. Surgical intervention performed. Patient doing well. Patient will come to the floor. Will continue with current medications. Restart Plavix tomorrow. Physical therapy to be initiated tomorrow. Continue with other medications. Anticipate home with home health and physical therapy in 2-3 days. Will need to consider inpatient rehab if with difficulty after surgery. I will turn the service over to the hospitalist team tomorrow. I will go plan of care with him. Cirrhosis with ascites secondary to chronic hepatitis-C: Continue Lasix and Aldactone. No need for paracentesis. Anemia of chronic disease: Overall stable. Maintain hemoglobin above 7.0. Will monitor closely. Will check iron and B12 studies. Hypertension: Continue Norvasc and lisinopril. Will monitor and adjust appropriately Hyperlipidemia: Continue Lipitor History of CVA: Restart Plavix tomorrow. Seen by neurology as an outpatient. To see ENT for chronic vertigo. Hyperglycemia: Will evaluate for diabetes. A1c 5.3. No diabetes. Chronic vertigo: Patient recently evaluated by neurology [facility]. No vascular issues noted. To see ENT soon in the near future to further evaluate. Fall precautions in place. Time Spent Managing Pts Care (In Minutes): 55
[2020-12-18] MEDS: CEFAZOLIN/SWI 1gm 1 GM/10 ML SYR IVP SCH ×2 (14:55→16:23)
[2020-12-18] MEDS: ATORVASTATIN 20 MG TAB PO SCH (19:59)
[2020-12-19] MEDS: CEFAZOLIN/SWI 1gm 1 GM/10 ML SYR IVP SCH ×2 (01:10→08:11)
[2020-12-19] MEDS: HYDROCODONE/APAP 7.5/325 MG TAB PO PRN ×5 (02:42→19:30)
[2020-12-19 05:02] LABS: Absolute Lymphocytes (CBC) 1.2 K/uL (0.7-4.9); Basophils % 0.6 % (0-1.3); Hematocrit 24.3 % (39.6-49.0); Lymphocytes % 16.4 % (15.3-44.8); RBC Red Blood Cell Count 3.06 M/uL (4.33-5.43)
[2020-12-19 05:06] LABS: BUN Blood Urea Nitrogen 18 mg/dL (7-18); Bicarbonate 29 mmol/L (21-32); Glucose Level 143 mg/dL (74-106); Potassium 3.9 mmol/L (3.5-5.1); Sodium Level 139 mmol/L (136-145)
[2020-12-19] MEDS: FENTANYL CITR 100 MCG/2 ML IV PRN (07:48)
[2020-12-19] MEDS: ENOXAPARIN 40 MG/0.4 ML SQ SCH (08:12)
[2020-12-19] MEDS: FUROSEMIDE 40 MG TABLET PO SCH (08:12)
[2020-12-19] MEDS: NICOTINE 21 MG/PAT TD SCH (08:12)
[2020-12-19] MEDS: lisinopriL 20 MG TAB PO SCH (08:12)
[2020-12-19] MEDS: AMLODIPINE 5 MG TAB PO SCH (08:13)
[2020-12-19] MEDS: SPIRONOLACTONE 100 MG TAB PO SCH (08:13)
[2020-12-19] MEDS: CLOPIDOGREL 75 MG TABLET PO SCH (08:13)
[2020-12-19] MEDS ORDERED: POTASSIUM CL SA 10 MEQ TAB PO ONE (09:00)
[2020-12-19] MEDS ORDERED: HYDROMORPHONE HCL 1 MG/ML INJ IV ONE (11:34)
--- NOTE | 2020-12-19 12:03 | PN ---
Date of Progress Note: 12/19/2020 The patient is 1 day status post right hip closed reduction with intramedullary salvador fixation. He is complaining of significant pain related to his hip, is apparently not able to tolerate therapy. He s ays he feels that something is still broken in his hip. These complaints are definitely noted and we will obtain x-ray of his right hip to ensure everything is doing well or at least has not changed fr om postop. He still has a Gallagher probably be beneficial to remove that if the x-rays look following. Otherwise, he is encouraged to work with therapy. Obviously, if the x-rays show some unexpected pro blems, we will change that, otherwise anticoagulation has been used. Pain management is done by Dr. Lennon, who is actively managing that and I have spoken with them several times. All of his questions were otherwise invited and answered. LELE Voice ID: [id number] Report ID: [id number]
--- NOTE | 2020-12-19 15:27 | RAD REPORT ---
EXAM DESCRIPTION: RAD - Hip Right 2 View - 12/19/2020 3:04 pm CLINICAL HISTORY: Pain and Swelling to the Right HIP COMPARISON: Intraoperative images December 18 FINDINGS: AP and cross-table lateral views of the right hip were obtained. Fracture repair hardware is in place. No change in alignment or position of the fixation hardware. Alignment and position of t he fracture fragments have not changed. No new bony pelvic finding. No suspicious or new soft tissue finding. Edema in the soft tissues present but not unexpected given the recent surgery. IMPRESSION: Proximal right femur and right hip joint show no new findings from the intraoperative im aging of December 18.
[2020-12-19] MEDS: ATORVASTATIN 20 MG TAB PO SCH (19:31)
[2020-12-20] MEDS: HYDROCODONE/APAP 7.5/325 MG TAB PO PRN ×5 (02:39→22:05)
[2020-12-20 05:49] LABS: Absolute Lymphocytes (CBC) 0.8 K/uL (0.7-4.9); Basophils % 1.3 % (0-1.3); Hematocrit 23.4 % (39.6-49.0); Lymphocytes % 14.5 % (15.3-44.8); MPV 8.8 fL (7.6-11.3); RBC Red Blood Cell Count 2.94 M/uL (4.33-5.43)
[2020-12-20 06:10] LABS: BUN Blood Urea Nitrogen 20 mg/dL (7-18); Bicarbonate 29 mmol/L (21-32); Glucose Level 122 mg/dL (74-106); Magnesium 1.9 mg/dL (1.8-2.4); Potassium 4.1 mmol/L (3.5-5.1); Sodium Level 140 mmol/L (136-145)
[2020-12-20] MEDS: AMLODIPINE 5 MG TAB PO SCH (08:51)
[2020-12-20] MEDS: FUROSEMIDE 40 MG TABLET PO SCH (08:51)
[2020-12-20] MEDS: lisinopriL 20 MG TAB PO SCH (08:51)
[2020-12-20] MEDS: SPIRONOLACTONE 100 MG TAB PO SCH (08:51)
[2020-12-20] MEDS: CLOPIDOGREL 75 MG TABLET PO SCH (08:51)
[2020-12-20] MEDS: NICOTINE 21 MG/PAT TD SCH (08:52)
[2020-12-20] MEDS: ENOXAPARIN 40 MG/0.4 ML SQ SCH (08:52)
[2020-12-20] MEDS: TRAMADOL HCL 50 MG TAB PO PRN ×2 (08:55→20:57)
[2020-12-20] MEDS ORDERED: BISACODYL E.C. 5 MG TAB PO ONE (10:39)
--- NOTE | 2020-12-20 13:48 | P.PN ---
Subjective Date of Service: 12/19/20 Screaming in pain whenever out test is foot any lifted his right leg out of the bed and then it. He said he is not able to move the leg but I spoke with him regarding the fact that when I touch his foot he lifted his leg and was able to bend it. Will get a x-ray and we will speak with Orthopedic. Review of Systems 10-point ROS is otherwise unremarkable Physical Examination - Vital Signs Temperature: 97.6 F Blood Pressure: 138/74 Pulse: 86 Respirations: 19 Pulse Ox (%): 95 - Physical Exam General: Alert, In no apparent distress, Oriented x3 HEENT: Atraumatic, PERRLA, EOMI Neck: Supple, JVD not distended Respiratory: Clear to auscultation bilaterally, Normal air movement Cardiovascular: Regular rate/rhythm, Normal S1 S2 Gastrointestinal: Normal bowel sounds, No tenderness Musculoskeletal: Tenderness (Exquisite tenderness on just touching the right foot) Neurological: Normal tone, Sensation intact, Cranial nerves 3-12 intact, Normal affect Lymphatics: No axilla or inguinal lymphadenopathy - Studies Medications List Reviewed: Yes Assessment & Plan - Problems (Diagnosis) (1) Status post-operative repair of closed fracture of right hip Current Visit: Yes Status: Acute (2) History of CVA with residual deficit Current Visit: No Status: Acute (3) Liver cirrhosis Current Visit: No Status: Acute Qualifiers: Hepatic cirrhosis type: unspecified hepatic cirrhosis Ascites presence: with ascites Qualified Code(s): K74.60 - Unspecified cirrhosis of liver; R18.8 - Other ascites (4) Pneumothorax Current Visit: No Status: Acute Qualifiers: Pneumothorax type: spontaneous, secondary Qualified Code(s): J93.12 - Secondary spontaneous pneumothorax (5) HTN (hypertension) Current Visit: No Status: Chronic Qualifiers: Hypertension type: essential hypertension Qualified Code(s): I10 - Essential (primary) hypertension (6) Hepatitis C Current Visit: No Status: Chronic Qualifiers: Viral hepatitis chronicity: chronic Hepatic coma status: without hepatic coma Qualified Code(s): B18.2 - Chronic viral hepatitis C - Plan plan: 1. Right hip films 2. Pain control 3. Physical therapy 4. Resume anti-platelet therapy 5. Out of bed into a chair for meals 6. GI and DVT prophylaxis Discharge Plan: Home Plan to discharge in: Greater than 2 days - Advance Directives Does patient have a Living Will: No Does patient have a Durable POA for Healthcare: No - Code Status/Comfort Care Code Status Assessed: Yes Code Status: Full Code Critical Care: No Time Spent Managing PTS Care (In Minutes): 35
--- NOTE | 2020-12-20 13:50 | P.PN ---
Date of Service: 12/20/20 Subjective Patient doing better today. Work with physical therapy. Really need to get him out of bed into a chair for his meals and then ambulate 2 to 3 times a day. Review of Systems 10-point ROS is otherwise unremarkable Physical Examination - Vital Signs Reviewed - Physical Exam General: Alert, In no apparent distress, Oriented x3 Respiratory: Clear to auscultation bilaterally, Normal air movement Cardiovascular: Regular rate/rhythm, Normal S1 S2 Gastrointestinal: Normal bowel sounds, No tenderness Musculoskeletal: Tenderness (Exquisite tenderness on just touching the right foot) Neurological: Normal tone, Sensation intact, Cranial nerves 3-12 intact, Normal affect Assessment & Plan - Problems (Diagnosis) (1) Status post-operative repair of closed fracture of right hip Current Visit: Yes Status: Acute (2) History of CVA with residual deficit Current Visit: No Status: Acute (3) Liver cirrhosis Current Visit: No Status: Acute Qualifiers: Hepatic cirrhosis type: unspecified hepatic cirrhosis Ascites presence: with ascites Qualified Code(s): K74.60 - Unspecified cirrhosis of liver; R18.8 - Other ascites (4) Pneumothorax Current Visit: No Status: Acute Qualifiers: Pneumothorax type: spontaneous, secondary Qualified Code(s): J93.12 - Secondary spontaneous pneumothorax (5) HTN (hypertension) Current Visit: No Status: Chronic Qualifiers: Hypertension type: essential hypertension Qualified Code(s): I10 - Essential (primary) hypertension (6) Hepatitis C Current Visit: No Status: Chronic Qualifiers: Viral hepatitis chronicity: chronic Hepatic coma status: without hepatic coma Qualified Code(s): B18.2 - Chronic viral hepatitis C - Plan plan: 1. Right hip films 2. Pain control 3. Physical therapy 4. Resume anti-platelet therapy 5. Out of bed into a chair for meals 6. GI and DVT prophylaxis
--- NOTE | 2020-12-20 18:38 | PN ---
Date of Progress Note: 12/20/2020 Subjective: The patient is seen today. His dressing is clean, dry, and intact. He says he has been sitting up at bedside and did take a few steps. X-rays were reviewed from yesterday, which demonstr ate no change in fracture alignment or hardware. Assessment: The patient is apparently beginning to do well. He will continue with rehabilitative forts and I have spoken with Dr. Lennon regarding his care. All of his questions are otherwise answere d today. He will continue touchdown weightbearing with anticoagulation/nosebleed. SE/MODL Voice ID: [id number] Report ID: [id number]
[2020-12-20] MEDS: DOCUSATE NA 100 MG CAP PO SCH (20:57)
[2020-12-20] MEDS: ATORVASTATIN 20 MG TAB PO SCH (20:57)
[2020-12-21] MEDS: HYDROCODONE/APAP 7.5/325 MG TAB PO PRN ×4 (02:28→19:07)
[2020-12-21] MEDS: lisinopriL 20 MG TAB PO SCH (08:30)
[2020-12-21] MEDS: DOCUSATE NA 100 MG CAP PO SCH ×2 (08:31→20:58)
[2020-12-21] MEDS: CLOPIDOGREL 75 MG TABLET PO SCH (08:31)
[2020-12-21] MEDS: SPIRONOLACTONE 100 MG TAB PO SCH (08:31)
[2020-12-21] MEDS: FUROSEMIDE 40 MG TABLET PO SCH (08:31)
[2020-12-21] MEDS: NICOTINE 21 MG/PAT TD SCH (08:31)
[2020-12-21] MEDS: ENOXAPARIN 40 MG/0.4 ML SQ SCH (08:32)
[2020-12-21] MEDS: TRAMADOL HCL 50 MG TAB PO PRN (08:39)
[2020-12-21] MEDS ORDERED: AMLODIPINE 2.5 MG TAB ONE (08:42)
[2020-12-21] MEDS: AMLODIPINE 5 MG TAB PO SCH (09:00)
[2020-12-21] MEDS ORDERED: HYDROMORPHONE HCL 0.5 MG/0.5 ML INJ IV ONE (12:00)
[2020-12-21] MEDS: ATORVASTATIN 20 MG TAB PO SCH (20:58)
[2020-12-22] MEDS: TRAMADOL HCL 50 MG TAB PO PRN (02:16)
[2020-12-22] MEDS: HYDROCODONE/APAP 7.5/325 MG TAB PO PRN ×5 (04:03→23:38)
[2020-12-22] MEDS: NICOTINE 21 MG/PAT TD SCH (08:11)
[2020-12-22] MEDS: ENOXAPARIN 40 MG/0.4 ML SQ SCH (08:11)
[2020-12-22] MEDS: AMLODIPINE 5 MG TAB PO SCH (08:11)
[2020-12-22] MEDS: SPIRONOLACTONE 100 MG TAB PO SCH (08:12)
[2020-12-22] MEDS: CLOPIDOGREL 75 MG TABLET PO SCH (08:12)
[2020-12-22] MEDS: FUROSEMIDE 40 MG TABLET PO SCH (08:12)
[2020-12-22] MEDS: DOCUSATE NA 100 MG CAP PO SCH ×2 (08:12→22:07)
[2020-12-22] MEDS: lisinopriL 20 MG TAB PO SCH (08:12)
--- NOTE | 2020-12-22 14:41 | P.PN ---
Date of Service: 12/21/20 Subjective Pt doing better; only doing side steps. Plan on DC home over the next 2-3 days Review of Systems 10-point ROS is otherwise unremarkable Physical Examination - Vital Signs Reviewed - Physical Exam General: Alert, In no apparent distress, Oriented x3 Respiratory: Clear to auscultation bilaterally, Normal air movement Cardiovascular: Regular rate/rhythm, Normal S1 S2 Gastrointestinal: Normal bowel sounds, No tenderness Musculoskeletal: Tenderness (Exquisite tenderness on just touching the right foot) Assessment & Plan - Problems (Diagnosis) (1) Status post-operative repair of closed fracture of right hip Current Visit: Yes Status: Acute (2) History of CVA with residual deficit Current Visit: No Status: Acute (3) Liver cirrhosis Current Visit: No Status: Acute Hepatic cirrhosis type: unspecified hepatic cirrhosis Ascites presence: with ascites Qualified Code(s): K74.60 - Unspecified cirrhosis of liver; R18.8 - Other ascites (4) Pneumothorax Current Visit: No Status: Acute Pneumothorax type: spontaneous, secondary Qualified Code(s): J93.12 - Secondary spontaneous pneumothorax (5) HTN (hypertension) Current Visit: No Status: Chronic Hypertension type: essential hypertension Qualified Code(s): I10 - Essential (primary) hypertension (6) Hepatitis C Current Visit: No Status: Chronic Viral hepatitis chronicity: chronic Hepatic coma status: without hepatic coma Qualified Code(s): B18.2 - Chronic viral hepatitis C Plan Plan: 1. Continuing with therapy; Pain control 2. Physical therapy 3. Resume anti-platelet therapy 4. Out of bed into a chair for meals 5. GI and DVT prophylaxis
[2020-12-22] MEDS: ATORVASTATIN 20 MG TAB PO SCH (22:07)
[2020-12-23] MEDS: HYDROCODONE/APAP 7.5/325 MG TAB PO PRN ×5 (05:07→22:19)
[2020-12-23 06:37] LABS: Absolute Lymphocytes (CBC) 1.1 K/uL (0.7-4.9); Basophils % 1.4 % (0-1.3); Hematocrit 24.5 % (39.6-49.0); Lymphocytes % 18.2 % (15.3-44.8); RBC Red Blood Cell Count 3.05 M/uL (4.33-5.43)
[2020-12-23 07:09] LABS: ALT/SGPT 20 U/L (12-78); AST/SGOT 37 U/L (15-37); Alkaline Phosphatase 77 U/L (45-117); BUN Blood Urea Nitrogen 19 mg/dL (7-18); Bicarbonate 29 mmol/L (21-32); Bilirubin Total 0.5 mg/dL (0.2-1.0); Folic Acid, (Folate) 7.6 ng/mL (3.1-17.5); Glucose Level 105 mg/dL (74-106); Magnesium 1.9 mg/dL (1.8-2.4); NT PRO-BNP 113 pg/mL (<125); Phosphorus 3.6 mg/dL (2.5-4.9); Potassium 3.9 mmol/L (3.5-5.1); Protein, Total 5.8 g/dL (6.4-8.2); Sodium Level 140 mmol/L (136-145)
[2020-12-23] MEDS: AMLODIPINE 5 MG TAB PO SCH (08:09)
[2020-12-23] MEDS: FUROSEMIDE 40 MG TABLET PO SCH (08:09)
[2020-12-23] MEDS: lisinopriL 20 MG TAB PO SCH (08:09)
[2020-12-23] MEDS: ENOXAPARIN 40 MG/0.4 ML SQ SCH (08:10)
[2020-12-23] MEDS: CLOPIDOGREL 75 MG TABLET PO SCH (08:10)
[2020-12-23] MEDS: DOCUSATE NA 100 MG CAP PO SCH ×2 (08:10→21:17)
[2020-12-23] MEDS: NICOTINE 21 MG/PAT TD SCH (08:10)
[2020-12-23] MEDS ORDERED: POTASSIUM 25 MEQ EFFERV TAB PO ONE (09:00)
[2020-12-23] MEDS: SPIRONOLACTONE 100 MG TAB PO SCH (09:06)
[2020-12-23] MEDS: TRAMADOL HCL 50 MG TAB PO PRN (10:20)
[2020-12-23] MEDS: ATORVASTATIN 20 MG TAB PO SCH (21:17)
[2020-12-23] MEDS ORDERED: TRAMADOL HCL 50 MG TAB PO ONE (22:23)
[2020-12-24] MEDS: HYDROCODONE/APAP 7.5/325 MG TAB PO PRN ×5 (02:01→21:53)
[2020-12-24] MEDS ORDERED: POTASSIUM CL SA 10 MEQ TAB PO ONE (09:00)
[2020-12-24] MEDS: AMLODIPINE 5 MG TAB PO SCH (09:15)
[2020-12-24] MEDS: FUROSEMIDE 40 MG TABLET PO SCH (09:15)
[2020-12-24] MEDS: SPIRONOLACTONE 100 MG TAB PO SCH (09:15)
[2020-12-24] MEDS: lisinopriL 20 MG TAB PO SCH (09:15)
[2020-12-24] MEDS: CLOPIDOGREL 75 MG TABLET PO SCH (09:16)
[2020-12-24] MEDS: DOCUSATE NA 100 MG CAP PO SCH ×2 (09:16→20:57)
[2020-12-24] MEDS: NICOTINE 21 MG/PAT TD SCH (09:17)
[2020-12-24] MEDS: ENOXAPARIN 40 MG/0.4 ML SQ SCH (09:17)
[2020-12-24] MEDS ORDERED: TRAMADOL HCL 50 MG TAB PO ONE (20:13)
[2020-12-24] MEDS: ATORVASTATIN 20 MG TAB PO SCH (20:57)
[2020-12-25] MEDS: HYDROCODONE/APAP 7.5/325 MG TAB PO PRN ×4 (02:00→20:15)
[2020-12-25] MEDS: SPIRONOLACTONE 100 MG TAB PO SCH (09:13)
[2020-12-25] MEDS: DOCUSATE NA 100 MG CAP PO SCH ×2 (09:13→20:15)
[2020-12-25] MEDS: CLOPIDOGREL 75 MG TABLET PO SCH (09:13)
[2020-12-25] MEDS: NICOTINE 21 MG/PAT TD SCH (09:13)
[2020-12-25] MEDS: FUROSEMIDE 40 MG TABLET PO SCH (09:13)
[2020-12-25] MEDS: lisinopriL 20 MG TAB PO SCH (09:13)
[2020-12-25] MEDS: AMLODIPINE 5 MG TAB PO SCH (09:13)
[2020-12-25] MEDS: ENOXAPARIN 40 MG/0.4 ML SQ SCH (09:14)
[2020-12-25 13:03] LABS: Absolute Lymphocytes (CBC) 0.8 K/uL (0.7-4.9); Basophils % 1.1 % (0-1.3); Hematocrit 28.9 % (39.6-49.0); Lymphocytes % 10.3 % (15.3-44.8); MPV 8.9 fL (7.6-11.3); RBC Red Blood Cell Count 3.59 M/uL (4.33-5.43)
[2020-12-25 13:20] LABS: Albumin 2.4 g/dL (3.4-5.0); Bilirubin Total 0.5 mg/dL (0.2-1.0); Potassium 5.1 mmol/L (3.5-5.1); Protein, Total 6.9 g/dL (6.4-8.2)
[2020-12-25] MEDS: TRAMADOL HCL 50 MG TAB PO PRN (15:48)
[2020-12-25] MEDS: ATORVASTATIN 20 MG TAB PO SCH (20:16)
[2020-12-26] MEDS: TRAMADOL HCL 50 MG TAB PO PRN ×4 (00:50→23:14)
--- NOTE | 2020-12-26 04:52 | P.PN ---
Date of Service: 12/23/20 Subjective Patient continues to have no significant changes. Will discuss with orthopedic [place] weightbearing status. Patient is not really able to ambulate at this time and can only do transfers. No home health company will be able to see him. No rehab or [facility] is accepting of [facility]. I have spoken with patient and will need to readdress this with the son. Review of Systems 10-point ROS is otherwise unremarkable Physical Examination - Vital Signs Reviewed - Physical Exam General: Alert, In no apparent distress, Oriented x3 Respiratory: Clear to auscultation bilaterally, Normal air movement Cardiovascular: Regular rate/rhythm, Normal S1 S2 Gastrointestinal: Normal bowel sounds, No tenderness Musculoskeletal: Continue with tenderness on the right hip Assessment & Plan - Problems (Diagnosis) (1) Status post-operative repair of closed fracture of right hip Current Visit: Yes Status: Acute (2) History of CVA with residual deficit Current Visit: No Status: Acute (3) Liver cirrhosis Current Visit: No Status: Acute Hepatic cirrhosis type: unspecified hepatic cirrhosis Ascites presence: with ascites Qualified Code(s): K74.60 - Unspecified cirrhosis of liver; R18.8 - Other ascites (4) Pneumothorax Current Visit: No Status: Acute Pneumothorax type: spontaneous, secondary Qualified Code(s): J93.12 - Secondary spontaneous pneumothorax (5) HTN (hypertension) Current Visit: No Status: Chronic Hypertension type: essential hypertension Qualified Code(s): I10 - Essential (primary) hypertension (6) Hepatitis C Current Visit: No Status: Chronic Viral hepatitis chronicity: chronic Hepatic coma status: without hepatic coma Qualified Code(s): B18.2 - Chronic viral hepatitis C Plan Plan: 1. Continuing with therapy; Pain control 2. Physical therapy will continue; we may need to address weight-bearing status with orthopedic. 3. Resume anti-platelet therapy; Continue medication for neuropathy 4. Out of bed into a chair for meals 5. GI and DVT prophylaxis
--- NOTE | 2020-12-26 05:04 | P.PN ---
Date of Service: 12/24/20 Subjective Had long discussion with the son and . There reluctant for patient to go home. They believe he needs more aggressive nursing care. The only thing he is really doing is transfers. He is not able to bear weight on is good length the left lower extremity because of prior injuries to the knee. He is not able to bear weight on the right leg because of recent surgery for right hip repair. His upper body is also fairly weak. Spoke to the son and the daughter and they seemed reluctant on patient going home in its current status. I spoke to them about nursing facility and they are okay with patient going to [facility]. Review of Systems 10-point ROS is otherwise unremarkable Physical Examination - Vital Signs Reviewed - Physical Exam General: Alert, In no apparent distress, Oriented x3 Respiratory: Clear to auscultation bilaterally, Normal air movement Cardiovascular: Regular rate/rhythm, Normal S1 S2 Gastrointestinal: Normal bowel sounds, No tenderness Musculoskeletal: Continue with tenderness on the right hip Assessment & Plan - Problems (Diagnosis) (1) Status post-operative repair of closed fracture of right hip Current Visit: Yes Status: Acute (2) History of CVA with residual deficit Current Visit: No Status: Acute (3) Liver cirrhosis Current Visit: No Status: Acute Hepatic cirrhosis type: unspecified hepatic cirrhosis Ascites presence: with ascites Qualified Code(s): K74.60 - Unspecified cirrhosis of liver; R18.8 - Other ascites (4) Pneumothorax Current Visit: No Status: Acute Pneumothorax type: spontaneous, secondary Qualified Code(s): J93.12 - Secondary spontaneous pneumothorax (5) HTN (hypertension) Current Visit: No Status: Chronic Hypertension type: essential hypertension Qualified Code(s): I10 - Essential (primary) hypertension (6) Hepatitis C Current Visit: No Status: Chronic Viral hepatitis chronicity: chronic Hepatic coma status: without hepatic coma Qualified Code(s): B18.2 - Chronic viral hepatitis C Plan Plan: 1. Continuing with therapy; Oral pain control 2. Physical therapy will continue; we may need to address weight-bearing status with orthopedic. 3. Resume anti-platelet therapy; Continue medication for neuropathy 4. Out of bed into a chair for meals 5. Placement will be the biggest issue at this time 6. GI and DVT prophylaxis
--- NOTE | 2020-12-26 05:05 | P.PN ---
Date of Service: 12/25/20 Subjective But it is still doing transfers. Family does feel comfortable taking them on. Get weightbearing status from orthopedics. Possible discharge over the next 48 hours Review of Systems 10-point ROS is otherwise unremarkable Physical Examination - Vital Signs Reviewed - Physical Exam General: Alert, In no apparent distress, Oriented x3 Respiratory: Clear to auscultation bilaterally, Normal air movement Cardiovascular: Regular rate/rhythm, Normal S1 S2 Gastrointestinal: Normal bowel sounds, No tenderness Musculoskeletal: Continue with tenderness on the right hip Assessment & Plan - Problems (Diagnosis) (1) Status post-operative repair of closed fracture of right hip Current Visit: Yes Status: Acute (2) History of CVA with residual deficit Current Visit: No Status: Acute (3) Liver cirrhosis Current Visit: No Status: Acute Hepatic cirrhosis type: unspecified hepatic cirrhosis Ascites presence: with ascites Qualified Code(s): K74.60 - Unspecified cirrhosis of liver; R18.8 - Other ascites (4) Pneumothorax Current Visit: No Status: Acute Pneumothorax type: spontaneous, secondary Qualified Code(s): J93.12 - Secondary spontaneous pneumothorax (5) HTN (hypertension) Current Visit: No Status: Chronic Hypertension type: essential hypertension Qualified Code(s): I10 - Essential (primary) hypertension (6) Hepatitis C Current Visit: No Status: Chronic Viral hepatitis chronicity: chronic Hepatic coma status: without hepatic coma Qualified Code(s): B18.2 - Chronic viral hepatitis C Plan Plan: 1. Continuing with therapy; Oral pain control 2. Physical therapy will continue; we may need to address weight-bearing status with orthopedic. 3. Resume anti-platelet therapy; Continue medication for neuropathy 4. Out of bed into a chair for meals 5. Placement will be the biggest issue at this time 6. Weightbearing status pending 7. GI and DVT prophylaxis
[2020-12-26 06:39] LABS: Absolute Lymphocytes (CBC) 1.1 K/uL (0.7-4.9); Basophils % 1.4 % (0-1.3); Hematocrit 25.6 % (39.6-49.0); Lymphocytes % 18.9 % (15.3-44.8); MPV 8.4 fL (7.6-11.3); RBC Red Blood Cell Count 3.21 M/uL (4.33-5.43)
[2020-12-26 06:59] LABS: BUN Blood Urea Nitrogen 21 mg/dL (7-18); Bicarbonate 28 mmol/L (21-32); Glucose Level 107 mg/dL (74-106); Magnesium 2.2 mg/dL (1.8-2.4); NT PRO-BNP 111 pg/mL (<125); Potassium 4.3 mmol/L (3.5-5.1); Sodium Level 140 mmol/L (136-145)
[2020-12-26] MEDS: CLOPIDOGREL 75 MG TABLET PO SCH (08:02)
[2020-12-26] MEDS: lisinopriL 20 MG TAB PO SCH (08:02)
[2020-12-26] MEDS: HYDROCODONE/APAP 7.5/325 MG TAB PO PRN ×3 (08:02→19:16)
[2020-12-26] MEDS: AMLODIPINE 5 MG TAB PO SCH (08:03)
[2020-12-26] MEDS: FUROSEMIDE 40 MG TABLET PO SCH (08:03)
[2020-12-26] MEDS: SPIRONOLACTONE 100 MG TAB PO SCH (08:03)
[2020-12-26] MEDS: DOCUSATE NA 100 MG CAP PO SCH ×2 (08:03→19:16)
[2020-12-26] MEDS: NICOTINE 21 MG/PAT TD SCH (08:03)
[2020-12-26] MEDS: ENOXAPARIN 40 MG/0.4 ML SQ SCH (08:03)
--- NOTE | 2020-12-26 12:38 | P.PN ---
Subjective Date of Service: 12/26/20 Primary Care Provider: Dr. Lara Chief Complaint: Right intertrochanteric femur fracture Subjective: Improving, Doing well Physical Examination - Vital Signs Temperature: 96.8 F Blood Pressure: 107/63 Pulse: 71 Respirations: 18 Pulse Ox (%): 94 - Studies Medications List Reviewed: Yes Assessment & Plan Discharge Plan: Home Plan to discharge in: 48 Hours Physician Review Additional Text: Chief complaint: Patient status post fall after losing his balance now with right femur fracture Physical exam: Patient alert, cooperative without significant distress. Heart: Regular rate and rhythm Lungs: Clear to auscultation Abdomen: Mild ascites. No significant distention. Soft nontender. Extremities: Good range of motion. No significant edema. Mild cramping to the lower extremity. Impression: Fall with chronic vertigo now with Right intertrochanteric femur fracture status post right hip close reduction and intra medullary salvador fixation Cirrhosis with ascites secondary to chronic hepatitis-C Anemia of chronic disease Hypertension Hyperlipidemia History of CVA Hyperglycemia without diabetes Chronic vertigo Plan: Fall with chronic vertigo now with Right intertrochanteric femur fracture status post right hip close reduction and intra medullary salvador fixation: Patient has slowly improved. Unfortunately, insurance will not pay for skilled placement, rehab or home health. Continue physical therapy. Will have physical therapy also work with son to help with transfers and expectations at home as the son will take care of patient. Outpatient physical therapy can be arranged. Continue with current medications. Anticipate improvement over the next 48 hr. Cirrhosis with ascites secondary to chronic hepatitis-C: Continue Lasix and Aldactone. No need for paracentesis. Anemia of chronic disease: Overall stable. Maintain hemoglobin above 7.0. Will monitor closely. Hypertension: Continue Norvasc and lisinopril. Will monitor and adjust appropriately Hyperlipidemia: Continue Lipitor History of CVA: Continue with Plavix. Seen by neurology as an outpatient. To see ENT for chronic vertigo. Hyperglycemia: Will evaluate for diabetes. A1c 5.3. No diabetes. Chronic vertigo: Patient recently evaluated by neurology [facility]. No vascular issues noted. To see ENT soon in the near future to further evaluate. Fall precautions in place. Time Spent Managing Pts Care (In Minutes): 55
[2020-12-26] MEDS: ATORVASTATIN 20 MG TAB PO SCH (19:16)
[2020-12-27] MEDS: HYDROCODONE/APAP 7.5/325 MG TAB PO PRN ×4 (02:36→19:38)
[2020-12-27] MEDS: TRAMADOL HCL 50 MG TAB PO PRN ×3 (05:57→18:05)
[2020-12-27] MEDS: NICOTINE 21 MG/PAT TD SCH (08:22)
[2020-12-27] MEDS: lisinopriL 20 MG TAB PO SCH (08:23)
[2020-12-27] MEDS: SPIRONOLACTONE 100 MG TAB PO SCH (08:23)
[2020-12-27] MEDS: DOCUSATE NA 100 MG CAP PO SCH ×2 (08:24→21:06)
[2020-12-27] MEDS: CLOPIDOGREL 75 MG TABLET PO SCH (08:24)
[2020-12-27] MEDS: AMLODIPINE 5 MG TAB PO SCH (08:24)
[2020-12-27] MEDS: FUROSEMIDE 40 MG TABLET PO SCH (08:24)
[2020-12-27] MEDS: ENOXAPARIN 40 MG/0.4 ML SQ SCH (08:24)
--- NOTE | 2020-12-27 14:19 | P.PN ---
Subjective Date of Service: 12/27/20 Primary Care Provider: Dr. Lara Chief Complaint: Right intertrochanteric femur fracture Subjective: Doing well Physical Examination - Vital Signs Temperature: 97.7 F Blood Pressure: 147/67 Pulse: 74 Respirations: 18 Pulse Ox (%): 93 - Studies Medications List Reviewed: Yes Assessment & Plan Discharge Plan: Home Plan to discharge in: 48 Hours Physician Review Additional Text: Chief complaint: Patient status post fall after losing his balance now with right femur fracture Physical exam: Patient alert, cooperative without significant distress. Heart: Regular rate and rhythm Lungs: Clear to auscultation Abdomen: Mild ascites. No significant distention. Soft nontender. Extremities: Good range of motion. No significant edema. Mild cramping to the lower extremity. Impression: Fall with chronic vertigo now with Right intertrochanteric femur fracture status post right hip close reduction and intra medullary salvador fixation Cirrhosis with ascites secondary to chronic hepatitis-C Anemia of chronic disease Hypertension Hyperlipidemia History of CVA Hyperglycemia without diabetes Chronic vertigo Plan: Fall with chronic vertigo now with Right intertrochanteric femur fracture status post right hip close reduction and intra medullary salvador fixation: Patient reports improvement. Physical therapy continues to work with patient. Patient said that he did work with physical therapy yesterday. Son was not available to come when physical therapy was around. Unfortunately, insurance will not pay for skilled placement, rehab or home health. Continue physical therapy. Will arrange for family visit to discuss long-term care for the patient and expectations. Will have physical therapy also work with son to help with transfers and expectations at home as the son will take care of patient. Outpatient physical therapy can be arranged. Continue with current medications. Anticipate improvement over the next 48 hr. Cirrhosis with ascites secondary to chronic hepatitis-C: Continue Lasix and Aldactone. No need for paracentesis. Anemia of chronic disease: Overall stable. Maintain hemoglobin above 7.0. Will monitor closely. Hypertension: Continue Norvasc and lisinopril. Will monitor and adjust appropriately Hyperlipidemia: Continue Lipitor History of CVA: Continue with Plavix. Seen by neurology as an outpatient. To see ENT for chronic vertigo. Hyperglycemia: Will evaluate for diabetes. A1c 5.3. No diabetes. Chronic vertigo: Patient recently evaluated by neurology [facility]. No vascular issues noted. To see ENT soon in the near future to further evaluate. Fall precautions in place. Time Spent Managing Pts Care (In Minutes): 55
[2020-12-27] MEDS: ATORVASTATIN 20 MG TAB PO SCH (21:06)
[2020-12-28] MEDS: DOCUSATE NA 100 MG CAP PO SCH ×2 (09:00→21:06)
[2020-12-28] MEDS: TRAMADOL HCL 50 MG TAB PO PRN ×2 (09:51→15:41)
[2020-12-28] MEDS: ENOXAPARIN 40 MG/0.4 ML SQ SCH (09:51)
[2020-12-28] MEDS: NICOTINE 21 MG/PAT TD SCH (09:52)
[2020-12-28] MEDS: lisinopriL 20 MG TAB PO SCH (09:52)
[2020-12-28] MEDS: SPIRONOLACTONE 100 MG TAB PO SCH (09:53)
[2020-12-28] MEDS: FUROSEMIDE 40 MG TABLET PO SCH (09:54)
[2020-12-28] MEDS: AMLODIPINE 5 MG TAB PO SCH (09:54)
[2020-12-28] MEDS: CLOPIDOGREL 75 MG TABLET PO SCH (09:54)
--- NOTE | 2020-12-28 11:08 | P.PN ---
Subjective Date of Service: 12/28/20 Primary Care Provider: Dr. Lara Chief Complaint: Right intertrochanteric femur fracture Subjective: Doing well Physical Examination - Vital Signs Temperature: 97.1 F Blood Pressure: 127/76 Pulse: 78 Respirations: 18 Pulse Ox (%): 93 - Studies Medications List Reviewed: Yes Assessment & Plan Discharge Plan: Home Plan to discharge in: 48 Hours Physician Review Additional Text: Chief complaint: Patient status post fall after losing his balance now with right femur fracture Physical exam: Patient alert, cooperative without significant distress. Heart: Regular rate and rhythm Lungs: Clear to auscultation Abdomen: Mild ascites. No significant distention. Soft nontender. Extremities: Good range of motion. No significant edema. Mild cramping to the lower extremity. Impression: Fall with chronic vertigo now with Right intertrochanteric femur fracture status post right hip close reduction and intra medullary salvador fixation Cirrhosis with ascites secondary to chronic hepatitis-C Anemia of chronic disease Hypertension Hyperlipidemia History of CVA Hyperglycemia without diabetes Chronic vertigo Plan: Fall with chronic vertigo now with Right intertrochanteric femur fracture status post right hip close reduction and intra medullary salvador fixation: Patient reports improvement. Physical therapy continues to work with patient. Physical therapy reports patient transfer supine with max assist. Stand pivot transfers with moderate to max assist. Patient not following commands at times. Patient high risk for fall. Will have family meeting with son as soon as today to discuss plan of care. I would like to have the son work with physical therapy with the patient to understand and manage expectations for the patient. May need to get other family involved. Unfortunately, insurance will not pay for skilled placement, rehab or home health. Continue physical therapy. Outpatient physical therapy has been arranged. Continue with current medications. Anticipate improvement over the next 48 hr. Cirrhosis with ascites secondary to chronic hepatitis-C: Continue Lasix and Aldactone. No need for paracentesis. Anemia of chronic disease: Overall stable. Maintain hemoglobin above 7.0. Will monitor closely. Hypertension: Continue Norvasc and lisinopril. Will monitor and adjust appropriately Hyperlipidemia: Continue Lipitor History of CVA: Continue with Plavix. Seen by neurology as an outpatient. To see ENT for chronic vertigo. Hyperglycemia: A1c 5.3. No diabetes. Chronic vertigo: Patient recently evaluated by neurology [facility]. No vascular issues noted. To see ENT soon in the near future to further evaluate. Fall precautions in place. Time Spent Managing Pts Care (In Minutes): 55
[2020-12-28] MEDS: HYDROCODONE/APAP 7.5/325 MG TAB PO PRN ×3 (11:22→21:07)
[2020-12-28] MEDS: ATORVASTATIN 20 MG TAB PO SCH (21:06)
[2020-12-29] MEDS: HYDROCODONE/APAP 7.5/325 MG TAB PO PRN ×4 (03:29→20:16)
[2020-12-29] MEDS: NICOTINE 21 MG/PAT TD SCH (09:50)
[2020-12-29] MEDS: SPIRONOLACTONE 100 MG TAB PO SCH (09:51)
[2020-12-29] MEDS: AMLODIPINE 5 MG TAB PO SCH (09:51)
[2020-12-29] MEDS: DOCUSATE NA 100 MG CAP PO SCH ×2 (09:51→20:17)
[2020-12-29] MEDS: CLOPIDOGREL 75 MG TABLET PO SCH (09:52)
[2020-12-29] MEDS: ENOXAPARIN 40 MG/0.4 ML SQ SCH (09:52)
[2020-12-29] MEDS: lisinopriL 20 MG TAB PO SCH (09:52)
[2020-12-29] MEDS: FUROSEMIDE 40 MG TABLET PO SCH (09:52)
[2020-12-29] MEDS: TRAMADOL HCL 50 MG TAB PO PRN ×2 (12:23→17:49)
--- NOTE | 2020-12-29 17:01 | P.PN ---
Subjective Date of Service: 12/29/20 Primary Care Provider: Dr. Lara Chief Complaint: Right intertrochanteric femur fracture Subjective: Improving, Doing well Physical Examination - Vital Signs Temperature: 97.4 F Blood Pressure: 118/78 Pulse: 68 Respirations: 18 Pulse Ox (%): 95 - Studies Medications List Reviewed: Yes Assessment & Plan Discharge Plan: Home Plan to discharge in: 24 Hours Physician Review Additional Text: Chief complaint: Patient status post fall after losing his balance now with right femur fracture Physical exam: Patient alert, cooperative without significant distress. Heart: Regular rate and rhythm Lungs: Clear to auscultation Abdomen: Mild ascites. No significant distention. Soft nontender. Extremities: Good range of motion. No significant edema. Mild cramping to the lower extremity. Impression: Fall with chronic vertigo now with Right intertrochanteric femur fracture status post right hip close reduction and intra medullary salvador fixation Cirrhosis with ascites secondary to chronic hepatitis-C Anemia of chronic disease Hypertension Hyperlipidemia History of CVA Hyperglycemia without diabetes Chronic vertigo Plan: Fall with chronic vertigo now with Right intertrochanteric femur fracture status post right hip close reduction and intra medullary salvador fixation: Patient continues to show improvement with physical therapy. Spoke at length with patient, ed case manager and daughter today concerning plan of care for the patient. Daughter was upset with case management. She reports Case Management has not been very helpful. Daughter is trying to get him to a skilled facility in [facility]. Case management reports this is not covered by insurance. This was relayed to the daughter by case management. Daughter still upset. I have tried to explain to the daughter at length that with patient's insurance patient does not qualify for home health, skilled placement, or rehab. Patient understands this in detail. He understands that he will likely have to go home with outpatient physical therapy. I tried to make arrangements for family visit but this has not been successful to manage expectations of the patient at home. Will try to arrange for family meeting again tomorrow to discuss plan of care. Patient understands this and agrees. If physical therapy says patient is able to safely be discharged home this may occur as early as tomorrow. Cirrhosis with ascites secondary to chronic hepatitis-C: Continue Lasix and Aldactone. No need for paracentesis. Anemia of chronic disease: Overall stable. Maintain hemoglobin above 7.0. Will monitor closely. Hypertension: Continue Norvasc and lisinopril. Will monitor and adjust appropriately Hyperlipidemia: Continue Lipitor History of CVA: Continue with Plavix. Seen by neurology as an outpatient. To see ENT for chronic vertigo. Hyperglycemia: A1c 5.3. No diabetes. Chronic vertigo: Patient recently evaluated by neurology [facility]. No vascular issues noted. To see ENT soon in the near future to further evaluate. Fall precautions in place. Time Spent Managing Pts Care (In Minutes): 55
[2020-12-29] MEDS: ATORVASTATIN 20 MG TAB PO SCH (20:17)
[2020-12-30] MEDS: HYDROCODONE/APAP 7.5/325 MG TAB PO PRN ×5 (01:41→22:03)
[2020-12-30] MEDS: DOCUSATE NA 100 MG CAP PO SCH ×2 (09:00→21:00)
[2020-12-30] MEDS: lisinopriL 20 MG TAB PO SCH (09:01)
[2020-12-30] MEDS: ENOXAPARIN 40 MG/0.4 ML SQ SCH (09:01)
[2020-12-30] MEDS: AMLODIPINE 5 MG TAB PO SCH (09:02)
[2020-12-30] MEDS: SPIRONOLACTONE 100 MG TAB PO SCH (09:03)
[2020-12-30] MEDS: CLOPIDOGREL 75 MG TABLET PO SCH (09:03)
[2020-12-30] MEDS: FUROSEMIDE 40 MG TABLET PO SCH (09:04)
[2020-12-30] MEDS: NICOTINE 21 MG/PAT TD SCH (09:05)
[2020-12-30] MEDS: TRAMADOL HCL 50 MG TAB PO PRN (11:05)
--- NOTE | 2020-12-30 14:20 | P.PN ---
Subjective Date of Service: 12/30/20 Primary Care Provider: Dr. Lara Chief Complaint: Right intertrochanteric femur fracture Subjective: Doing well Physical Examination - Vital Signs Temperature: 97.5 F Blood Pressure: 120/58 Pulse: 81 Respirations: 16 Pulse Ox (%): 95 - Studies Medications List Reviewed: Yes Assessment & Plan Discharge Plan: Home Plan to discharge in: 24 Hours Physician Review Additional Text: Chief complaint: Patient status post fall after losing his balance now with right femur fracture Physical exam: Patient alert, cooperative without significant distress. Heart: Regular rate and rhythm Lungs: Clear to auscultation Abdomen: Mild ascites. No significant distention. Soft nontender. Extremities: Good range of motion. No significant edema. Mild cramping to the lower extremity. Impression: Fall with chronic vertigo now with Right intertrochanteric femur fracture status post right hip close reduction and intra medullary salvador fixation Cirrhosis with ascites secondary to chronic hepatitis-C Anemia of chronic disease Hypertension Hyperlipidemia History of CVA Hyperglycemia without diabetes Chronic vertigo Plan: Fall with chronic vertigo now with Right intertrochanteric femur fracture status post right hip close reduction and intra medullary salvador fixation: Patient reports that he is improving. Physical therapy notes reviewed with patient. Patient understands that he needs to have family help patient in his disposi tion. Spoke with physical therapy inc that. Physical therapy reports patient not cooperating with lack of help from family in expectations and participation. Spoke with sr. social media & mobile manager at length as well. Based on his current insurance, patient has no benefit for skilled therapy, rehab, or home health. This was readdressed with the patient. Patient understands this. Patient also reported family is considering to pay [id number] for inpatient rehab. Spoke with sr. social media & mobile manager about this. They report this will cost too much. This was expressed to 1 of the family members from the facility. They are not able to afford this. Will have family meeting with son and daughter. At this juncture, physical therapy reports patient is safe to go home as on is their help from family. We need to relay this information to the family. Patient will likely require wheelchair, bedside commode, and walker. Physical therapy has worked extensively and provided education. Will Re discuss with patient and family soon. Anticipate today. Cirrhosis with ascites secondary to chronic hepatitis-C: Continue Lasix and Aldactone. No need for paracentesis. Anemia of chronic disease: Overall stable. Maintain hemoglobin above 7.0. Will monitor closely. Hypertension: Continue Norvasc and lisinopril. Will monitor and adjust appropriately Hyperlipidemia: Continue Lipitor History of CVA: Continue with Plavix. Seen by neurology as an outpatient. To see ENT for chronic vertigo. Hyperglycemia: A1c 5.3. No diabetes. Chronic vertigo: Patient recently evaluated by neurology [facility]. No vascular issues noted. To see ENT soon in the near future to further evaluate. Fall precautions in place. Time Spent Managing Pts Care (In Minutes): 55
[2020-12-30] MEDS: ATORVASTATIN 20 MG TAB PO SCH (22:04)
[2020-12-31] MEDS: HYDROCODONE/APAP 7.5/325 MG TAB PO PRN (04:31)
--- NOTE | 2020-12-31 09:20 | P.PN ---
Subjective Date of Service: 12/31/20 Primary Care Provider: Dr. Lara Chief Complaint: Right intertrochanteric femur fracture Subjective: Doing well Physical Examination - Vital Signs Temperature: 97.2 F Blood Pressure: 134/89 Pulse: 75 Respirations: 16 Pulse Ox (%): 94 - Studies Medications List Reviewed: Yes Assessment & Plan Discharge Plan: Home Plan to discharge in: 48 Hours Physician Review Additional Text: Chief complaint: Patient status post fall after losing his balance now with right femur fracture Physical exam: Patient alert, cooperative without significant distress. Heart: Regular rate and rhythm Lungs: Clear to auscultation Abdomen: Mild ascites. No significant distention. Soft nontender. Extremities: Good range of motion. No significant edema. Mild cramping to the lower extremity. Impression: Fall with chronic vertigo now with Right intertrochanteric femur fracture status post right hip close reduction and intra medullary salvador fixation Cirrhosis with ascites secondary to chronic hepatitis-C Anemia of chronic disease Hypertension Hyperlipidemia History of CVA Hyperglycemia without diabetes Chronic vertigo Plan: Fall with chronic vertigo now with Right intertrochanteric femur fracture status post right hip close reduction and intra medullary salvador fixation: Patient doing well. Will adjust pain medication. Continue with discharge plan of care-plan to discharge on Saturday. Family arranging for will chair, walker and bedside commode. Patient continue with physical therapy. Will have son also participate to help with expectations at home. This was addressed in detail yesterday. Plan agreed. Cirrhosis with ascites secondary to chronic hepatitis-C: Continue Lasix and Aldactone. No need for paracentesis. Anemia of chronic disease: Overall stable. Maintain hemoglobin above 7.0. Will monitor closely. Hypertension: Continue Norvasc and lisinopril. Will monitor and adjust appropriately Hyperlipidemia: Continue Lipitor History of CVA: Continue with Plavix. Seen by neurology as an outpatient. To see ENT for chronic vertigo. Hyperglycemia: A1c 5.3. No diabetes. Chronic vertigo: Patient recently evaluated by neurology [facility]. No vascular issues noted. To see ENT soon in the near future to further evaluate. Fall precautions in place. Time Spent Managing Pts Care (In Minutes): 55
[2020-12-31] MEDS: HYDROCODONE/APAP 10/325 TAB PO PRN ×3 (09:28→20:55)
[2020-12-31] MEDS: NICOTINE 21 MG/PAT TD SCH (09:29)
[2020-12-31] MEDS: SPIRONOLACTONE 100 MG TAB PO SCH (09:29)
[2020-12-31] MEDS: FUROSEMIDE 40 MG TABLET PO SCH (09:29)
[2020-12-31] MEDS: lisinopriL 20 MG TAB PO SCH (09:29)
[2020-12-31] MEDS: DOCUSATE NA 100 MG CAP PO SCH ×2 (09:29→20:54)
[2020-12-31] MEDS: CLOPIDOGREL 75 MG TABLET PO SCH (09:29)
[2020-12-31] MEDS: AMLODIPINE 5 MG TAB PO SCH (09:29)
[2020-12-31] MEDS: ENOXAPARIN 40 MG/0.4 ML SQ SCH (09:30)
[2020-12-31] MEDS: ATORVASTATIN 20 MG TAB PO SCH (20:54)
[2021-01-01] MEDS: DOCUSATE NA 100 MG CAP PO SCH ×2 (09:14→21:00)
[2021-01-01] MEDS: CLOPIDOGREL 75 MG TABLET PO SCH (09:14)
[2021-01-01] MEDS: NICOTINE 21 MG/PAT TD SCH (09:14)
[2021-01-01] MEDS: FUROSEMIDE 40 MG TABLET PO SCH (09:15)
[2021-01-01] MEDS: ENOXAPARIN 40 MG/0.4 ML SQ SCH (09:16)
[2021-01-01] MEDS: AMLODIPINE 5 MG TAB PO SCH (09:16)
[2021-01-01] MEDS: lisinopriL 20 MG TAB PO SCH (09:16)
[2021-01-01] MEDS: SPIRONOLACTONE 100 MG TAB PO SCH (09:16)
--- NOTE | 2021-01-01 10:31 | P.PN ---
Subjective Date of Service: 01/01/21 Primary Care Provider: Dr. Lara Chief Complaint: Right intertrochanteric femur fracture Subjective: No new changes, Doing well Physical Examination - Vital Signs Temperature: 96.9 F Blood Pressure: 150/71 Pulse: 85 Respirations: 21 Pulse Ox (%): 93 - Studies Medications List Reviewed: Yes Assessment & Plan Discharge Plan: Home Plan to discharge in: 24 Hours Physician Review Additional Text: Chief complaint: 60-year-old male presented status post fall after losing his balance now with right femur fracture Physical exam: Patient alert, cooperative without significant distress. Heart: Regular rate and rhythm Lungs: Clear to auscultation Abdomen: Mild ascites. No significant distention. Soft nontender. Extremities: Good range of motion. No significant edema. Mild cramping to the lower extremity. Impression: Fall with chronic vertigo now with Right intertrochanteric femur fracture status post right hip close reduction and intra medullary salvador fixation Cirrhosis with ascites secondary to chronic hepatitis-C Anemia of chronic disease Hypertension Hyperlipidemia History of CVA Hyperglycemia without diabetes Chronic vertigo Plan: Fall with chronic vertigo now with Right intertrochanteric femur fracture status post right hip close reduction and intra medullary salvador fixation: Patient continues to do well. Pain medication adjusted. Continue physical therapy and occupational therapy. Discharge plan of care addressed in detail with family the other day. Family to work on getting wheelchair, walker and bedside commode. Patient has no benefit for home health/physical therapy, skilled [facility] or inpatient rehab. Plan will be to discharge tomorrow. Patient to go to outpatient physical therapy once discharge. Will have son participate to help in physical therapy to understand expectations and goals for home. This was addressed in detail with son and patient the other day. Discharge plan of care agreed by patient and son. I will turn the service over to the hospitalist tomorrow. I will go plan over the plan of care with him. Cirrhosis with ascites secondary to chronic hepatitis-C: Continue Lasix and Aldactone. No need for paracentesis. Anemia of chronic disease: Overall stable. Maintain hemoglobin above 7.0. Will monitor closely. Hypertension: Continue Norvasc and lisinopril. Will monitor and adjust appropriately Hyperlipidemia: Continue Lipitor History of CVA: Continue with Plavix. Seen by neurology as an outpatient. To see ENT for chronic vertigo. Hyperglycemia: A1c 5.3. No diabetes. Chronic vertigo: Patient recently evaluated by neurology [facility]. No vascular issues noted. To see ENT soon in the near future to further evaluate. Fall precautions in place. Time Spent Managing Pts Care (In Minutes): 55
[2021-01-01] MEDS: HYDROCODONE/APAP 10/325 TAB PO PRN ×2 (14:17→21:29)
[2021-01-01] MEDS: ATORVASTATIN 20 MG TAB PO SCH (21:29)
[2021-01-02] MEDS: HYDROCODONE/APAP 10/325 TAB PO PRN ×3 (01:28→13:23)
--- NOTE | 2021-01-02 07:11 | P.DS ---
Admission Date: 12/17/20 Discharge Date: 01/02/21 Primary Care Provider: Dr. Lara Disposition: ROUTINE DISCHARGE Discharge Condition: GOOD Reason for Admission: Right intertrochanteric femur fracture Consultations: Orthopedics-Dr. Watson Procedures: COVID: negative Xray: FINDINGS: There is intratrochanteric fracture of the right femur with angulation. There is mild narrowing of the right hip joint. Soft tissues are unremarkable. IMPRESSION: Proximal right femur fracture. Surgery: Date of Procedure: 12/18/2020 Surgeon: Josh Watson MD Preoperative Diagnosis: Right comminuted intertrochanteric fracture with some subtrochanteric extension. Postoperative Diagnosis: Right comminuted intertrochanteric fracture with some subtrochanteric extension. Procedure: Right hip closed reduction and intramedullary salvador fixation using an [employer] nail. Estimated Blood Loss: 50 cc. Complications: There were no complications. Pathology Specimen: No pathology specimen sent. 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 He was seen and examined in the emergency department, was ruled out for other injuries. Unfortunately, x-rays revealed a displaced comminuted intertrochanteric fracture of the hip with subtrochanteric extension. Patient was admitted for further evaluation and treatment. Hospital Course: Patient presented after a fall. Patient suffered a right comminuted intertrochanteric femur fracture with some subtrochanteric extension. The patient was admitted for further evaluation and treatment. Patient seen and evaluated by orthopedics. Orthopedics recommended surgical intervention. Patient had right hip close reduction and intra medullary salvador fixation. Patient did well post operatively. Social work help to arrange for discharge planning. Options were limited. Due to his insurance, patient was not able to go to a inpatient rehab facility, fpc facility, or obtain home health/physical therapy at home. Family tried other options closer to her daughter in [facility]. But this was possible due to lack of insurance benefit. Only option was for him to go home and continue with outpatient physical therapy. During this time, Physical therapy worked with the patient to increase ambulation, stability, and help with transfer. This also included instructions with son along with expectations. This was a difficult process to educate patient and family but this was resolved. Physical therapy has been maximized during this hospitalization. At discharge patient will go home. Patient reports son has been able to acquire wheelchair, bedside commode, and walker. Patient will continue with physical therapy recommendations. Patient will continue with physical therapy exercises, transfer instruction, and plan of care. Patient will need to continue with physical therapy at outpatient facility. Instructions given. At discharge a limited supply of hydrocodone 10/325 mg 1 pill 3 times a day as needed for pain will be provided. No need for further anti coagulation therapy. Fall precautions in place. Orthopedics recommends to continue touchdown weight-bearing to the right lower extremity. Physical therapy to help with instructions. Recommend follow up with orthopedics in 1-2 weeks to follow up this hospitalization. Follow up with PCP within 1 week to coordinate care. Patient with chronic cirrhosis in hepatitis-C. There was no need for paracentesis. Continue with 1500 cc per day fluid restriction and low-salt diet. Recommend to monitor his weight daily. At discharge patient will continue with Lasix 40 mg daily and Aldactone 100 mg daily. Recommend follow up with GI as directed. Patient with anemia chronic disease. This has remained stable. Recommend to recheck lab-CBC in 2-4 weeks to monitor stability. Patient with hypertension. This has remained stable. At discharge patient will continue with Norvasc 5 mg daily and lisinopril 40 mg daily. Recommend to maintain blood pressure less than 130/80. Further adjustment can be done by his PCP. Patient with hyperlipidemia. At discharge patient will continue with Lipitor 20 mg daily. Patient with history of CVA. At discharge patient will continue with Plavix 75 mg daily. Patient with chronic vertigo. Patient has been evaluated in the past by [facility] neurology. He reports that included vascular evaluation. There was no need for prior vascular intervention. Patient is to follow up with [facility] ENT to further address. Patient had some hyperglycemia. No evidence of diabetes noted. Hemoglobin A1c 5.3. Recommend to recheck lab-hemoglobin A1c in 3-6 months to monitor his progress. Patient will be provided stool softener docusate 100 mg twice daily. Vital Signs/Physical Exam: Temp Pulse Resp BP Pulse Ox 98.5 F 68 18 116/67 98 01/02/21 04:00 01/02/21 04:00 01/02/21 06:33 01/02/21 04:00 01/02/21 06:33 General: Alert, In no apparent distress, Oriented x3, Cooperative HEENT: Atraumatic Neck: Supple Respiratory: Clear to auscultation bilaterally, Normal air movement Cardiovascular: Normal pulses, Regular rate/rhythm Gastrointestinal: Normal bowel sounds, Soft and benign, No rebound, No guarding Neurological: Normal speech, Normal strength at 5/5 x4 extr, Normal tone, Normal affect Laboratory Data at Discharge: WBC 5.70 K/uL (4.3-10.9) D 12/26/20 06:29 Hgb 8.5 g/dL (13.6-17.9) L 12/26/20 06:29 Hct 25.6 % (39.6-49.0) L 12/26/20 06:29 Plt Count 241 K/uL (152-406) 12/26/20 06:29 PT 10.6 SECONDS (9.5-12.5) 12/17/20 00:57 INR 0.92 12/17/20 00:57 Sodium 140 mmol/L (136-145) 12/26/20 06:29 Potassium 4.3 mmol/L (3.5-5.1) 12/26/20 06:29 BUN 21 mg/dL (7-18) H 12/26/20 06:29 Creatinine 0.80 mg/dL (0.55-1.3) 12/26/20 06:29 Glucose 107 mg/dL (74-106) H 12/26/20 06:29 Phosphorus 3.6 mg/dL (2.5-4.9) 12/23/20 06:20 Magnesium 2.2 mg/dL (1.8-2.4) 12/26/20 06:29 Total Bilirubin 0.5 mg/dL (0.2-1.0) 12/25/20 12:53 AST 49 U/L (15-37) H 12/25/20 12:53 ALT 26 U/L (12-78) 12/25/20 12:53 Alkaline Phosphatase 101 U/L (45-117) 12/25/20 12:53 Home Medications: Amlodipine [Norvasc*] 5 mg PO DAILY 05/28/19 Atorvastatin Calcium [Lipitor*] 20 mg PO BEDTIME 05/28/19 Clopidogrel Bisulfate [Plavix*] 75 mg PO DAILY 05/28/19 lisinopriL [Prinivil*] 40 mg PO DAILY 05/28/19 Furosemide [Lasix*] 40 mg PO DAILY #20 tab 06/01/19 Spironolactone [Aldactone] 100 mg PO DAILY 12/17/20 Docusate [Colace Cap*] 100 mg PO BID #60 cap 01/02/21 Hydrocodone 10/APAP 325 [Ben [place]olt 10/325*] 1 tab PO Q4H PRN #15 tab 01/02/21 Nicotine [Nicoderm*] 21 mg TD DAILY #30 patch.td24 01/02/21 New Medications: Docusate [Colace Cap*] 100 mg PO BID #60 cap Nicotine [Nicoderm*] 21 mg TD DAILY #30 patch.td24 Hydrocodone 10/APAP 325 [[place]olt 10/325*] 1 tab PO Q4H PRN #15 tab PRN Reason: Pain Scale 8-10 (Severe) Physician Discharge Instructions: Patient presented after a fall. Patient suffered a right comminuted intertrochanteric femur fracture with some subtrochanteric extension. The patient was admitted for further evaluation and treatment. Patient seen and evaluated by orthopedics. Orthopedics recommended surgical intervention. Patient had right hip close reduction and intra medullary salvador fixation. Patient did well post operatively. Social work help to arrange for discharge planning. Options were limited. Due to his insurance, patient was not able to go to a inpatient rehab facility, fpc facility, or obtain home health/physical therapy at home. Family tried other options closer to her daughter in [facility]. But this was possible due to lack of insurance benefit. Only option was for him to go home and continue with outpatient physical therapy. During this time, Physical therapy worked with the patient to increase ambulation, stability, and help with transfer. This also included instructions with son along with expectations. This was a difficult process to educate patient and family but this was resolved. Physical therapy has been maximized during this hospitalization. At discharge patient will go home. Patient reports son has been able to acquire wheelchair, bedside commode, and walker. Patient will continue with physical therapy recommendations. Patient will continue with physical therapy exercises, transfer instruction, and plan of care. Patient will need to continue with physical therapy at outpatient facility. Instructions given. At discharge a limited supply of hydrocodone 10/325 mg 1 pill 3 times a day as needed for pain will be provided. No need for further anti coagulation therapy. Fall precautions in place. Orthopedics recommends to continue touchdown weight-bearing to the right lower extremity. Physical therapy to help with instructions. Recommend follow up with orthopedics in 1-2 weeks to follow up this hospitalization. Follow up with PCP within 1 week to coordinate care. Patient with chronic cirrhosis in hepatitis-C. There was no need for paracentesis. Continue with 1500 cc per day fluid restriction and low-salt diet. Recommend to monitor his weight daily. At discharge patient will co ntinue with Lasix 40 mg daily and Aldactone 100 mg daily. Recommend follow up with GI as directed. Patient with anemia chronic disease. This has remained stable. Recommend to recheck lab-CBC in 2-4 weeks to monitor stability. Patient with hypertension. This has remained stable. At discharge patient will continue with Norvasc 5 mg daily and lisinopril 40 mg daily. Recommend to maintain blood pressure less than 130/80. Further adjustment can be done by his PCP. Patient with hyperlipidemia. At discharge patient will continue with Lipitor 20 mg daily. Patient with history of CVA. At discharge patient will continue with Plavix 75 mg daily. Patient with chronic vertigo. Patient has been evaluated in the past by [facility] neurology. He reports that included vascular evaluation. There was no need for prior vascular intervention. Patient is to follow up with [facility] ENT to further address. Patient had some hyperglycemia. No evidence of diabetes noted. Hemoglobin A1c 5.3. Recommend to recheck lab-hemoglobin A1c in 3-6 months to monitor his progress. Patient will be provided stool softener docusate 100 mg twice daily. Diet: AHA Activity: Touch down weight bearing RLE Followup: NONE,NONE [Primary Care Provider] - Time spent managing pt's care (in minutes): 55
[2021-01-02] MEDS: FUROSEMIDE 40 MG TABLET PO SCH (08:59)
[2021-01-02] MEDS: SPIRONOLACTONE 100 MG TAB PO SCH (09:00)
[2021-01-02] MEDS: DOCUSATE NA 100 MG CAP PO SCH (09:00)
[2021-01-02] MEDS: lisinopriL 20 MG TAB PO SCH (09:01)
[2021-01-02] MEDS: AMLODIPINE 5 MG TAB PO SCH (09:02)
[2021-01-02] MEDS: CLOPIDOGREL 75 MG TABLET PO SCH (09:02)
[2021-01-02] MEDS: ENOXAPARIN 40 MG/0.4 ML SQ SCH (09:03)
[2021-01-02] MEDS: NICOTINE 21 MG/PAT TD SCH (09:04)
[2021-01-02 10:20] VITALS: O2SAT 91
[2021-01-02 13:58] VITALS: BP 115/62; TEMP 97.8
== END 2021-01-02 13:35 | disposition home or self-care (01) | DRG 481 ==
LOC: ER 23:11 → ERHOLD 12-17 01:50 → 2ND 12-17 04:50
PROVIDERS: ADMIT Family Medicine; ATTEND Family Medicine
PROC: 0QS636Z Reposition Right Upper Femur with Intramedullary Internal Fixation Device, Percutaneous Approach (ICD-10-PCS; principal; 2020-12-18 07:00)
DX: S72.141A Displaced intertrochanteric fracture of right femur, initial encounter for closed fracture (principal); I69.354 Hemiplegia and hemiparesis following cerebral infarction affecting left non-dominant side; R18.8 Other ascites; J93.12 Secondary spontaneous pneumothorax; I10 Essential (primary) hypertension; F17.210 Nicotine dependence, cigarettes, uncomplicated; K74.60 Unspecified cirrhosis of liver; B18.2 Chronic viral hepatitis C; G62.9 Polyneuropathy, unspecified; D63.8 Anemia in other chronic diseases classified elsewhere; E78.5 Hyperlipidemia, unspecified; R73.9 Hyperglycemia, unspecified; R42 Dizziness and giddiness; W18.30XA Fall on same level, unspecified, initial encounter; Z79.899 Other long term (current) drug therapy; Z79.02 Long term (current) use of antithrombotics/antiplatelets; Z20.822 Contact with and (suspected) exposure to COVID-19
CPT/HCPCS: 36415; 51702; 71045; 72170; 73530; 80048; 80053; 80076; 81003; 81015; 82607; 82728; 82746; 83036; 83540; 83605; 83735; 83880; 84100; 84439; 84443; 84466; 84484; 85025; 85379; 85610; 86850; 86900; 86901; 93005; 94010; 97110; 97112; 97116; 97161; 97530; 99285; J0690; J1100; J1170; J1650; J2250; J2270; J2405; J2704; J3010; J3360; J3475; J7040; J7120; U0003

== ENCOUNTER 2021-01-31 17:56 | Emergency (ER) | payer OTHER ==
--- OUTSIDE RECORDS SUMMARY | 2021-01-31 18:00 | XMS REPORT | Continuity of Care Document ---
:1960 Author Organization [facility] t Address [address] [place] [address] Care Team Providers Name Role Phone GRIFFITHS Primary Care Physician Unavailable Doctor Unassigned, Name Attending Clinician Unavailable Jason WOOTEN, L Attending Clinician Dino Beach Attending Clinician RAUDELPALA Attending Clinician Unavailable CZAP Attending Clinician Unavailable Bee Duncan Attending Clinician Jennifer Admitting Clinician Problems Condition Condition Condition Status Onset Resolution Last Treating Co mments Source Name Details Category Date Date Treatment Clinician Date ISCHEMIC Diagnosis Active 2018-07-04 M emoria CVA 07-04 14:39:00 l ISCHEMIC 00:00: Suman ying CVA 00 Active 07/04/2018 [facility] ACUTE Diagnosis Active 2018-09-25 Mem oria BILAT 07-04 15:33:00 l [place]ATER[place] ACUTE 00:00: Suman ying INFARCTION BILAT 00 [place] INFARCTION Active 07/04/2018 [facility] Confusion Confusion Disease Active Tarik ris 05-23 Health 00:00: 00 Cerebral Cerebral Disease Active Pravini s microvascu microvascu He alth lar lar disease disease Hypertensi Problem 2019-01-25 M emoria ve 13:05:53 l emergency Franko Hypertensi ve emergency 01/25/2019 [facility] Essential Problem 2019-01-25 Me moria (primary) 13:05:53 l hypertensi Suman n on Essential (primary) hypertensi on 01/25/2019 [facility] Unspecifie Problem 2019-01-25 M emoria d viral 13:05:53 l hepatitis Busy C without Unspecifie hepatic d viral coma hepatitis C without hepatic coma 9 [facility] Unspecifie Problem 2019-01-25 M emoria d 13:05:53 l cirrhosis Franko of liver Unspecifie d cirrhosis of liver 01/25/2019 [facility] NIHSS Problem 2019-01-25 Memor ia score 5 13:05:53 l NIHSS Busy score 5 01/25/2019 [facility] Hyperlipid Problem 2019-01-25 M emoria emia, 13:05:53 l unspecifie Suman n d Hyperlipid emia, unspecifie d 01/25/2019 [facility] Facial Problem 2019-01-25 Memor ia weakness 13:05:53 l Facial Franko weakness 01/25/2019 [facility] Nicotine Problem 2019-01-25 Mem oria dependence 13:05:53 l , Nicotine Suman n cigarettes dependence , , uncomplica cigarettes willow , uncomplica willow 01/25/2019 [facility] Personal Problem 2019-01-25 Mem oria history of 13:05:53 l transient Personal Her lewis ischemic history of attack transient (TIA), and ischemic cerebral attack infarction (TIA), and without cerebral residual infarction deficits without residual deficits 01/25/2019 [facility] Patient's Problem 2019-01-25 Me moria other 13:05:53 l noncomplia Suman n nce with Patient's medication other regimen noncomplia nce with medication regimen 01/25/2019 [facility] OTHER Diagnosis Active 2018-09-25 Mem oria CEREBRAL 15:33:00 l INFARCTION OTHER Nena nn CEREBRAL INFARCTION Active [facility] Cerebral Problem 2019-01-25 Mem oria infarction 13:05:53 l due to Cerebral Suman n unspecifie infarction d due to occlusion unspecifie or d stenosis occlusion of or bilateral stenosis middle of arteries bilateral middle arteries 01/25/2019 [facility] Hemiplegia Problem 2019-01-25 M emoria , 13:05:53 l unspecifie Suman n d Hemiplegia affecting , left unspecifie nondominan d t side affecting left nondominan t side 01/25/2019 [facility] History of History of Problem Active U [...] y of on on [place] [facility] History of Past Illness Condition Condition Condition Status Onset Resolution Last Treating Co mments Source Name Details Category Date Date Treatment Clinician Date Cerebral Problem 2017-2019-01-25 2019-01-25 Memoria infarction 07-17 13:05:53 13:05:53 l due to Cerebral 03:46: Suman ying unspecifie infarction 45 d due to occlusion unspecifie or d stenosis occlusion of or bilateral stenosis carotid of arteries bilateral carotid arteries 8 01/25/2019 [facility] Allergies, Adverse Reactions, Alerts Allergy Allergy Status Severity Reaction(s) Onset Inactive Treating Comm ents Source Name Type Date Date Clinician No Known No Known Active Memori a Medicati Medicati l on on Franko Allergie Allergie s s Social History Social Habit Start Date Stop Date Quantity Comments Source Sex Assigned At Sky Perez alth Social History 2018-07-04 2018-07-04 [facility] Alexander anastasiia 23:48:27 23:48:27 Cigarettes smoked 2018-05-23 2018-05-23 [facility] current (pack per 00:00:00 00:00:00 day) - Reported Alcohol intake 2018-05-23 2018-05-23 [facility] of alcohol (finding) Alcohol Comment 2018-05-23 2018-05-23 quit Sky smith 00:00:00 00:00:00 Smoking Status Start Date Stop Date Source Former smoker [facility] Current every day smoker 2018-05-23 00:00:00 [facility] Medications Ordered Filled Start Stop Current Ordering Indication Dosage Frequency Signature Comments Components Source Medication Medication Date Date Medication? Clinician (SIG) Name Name Shahriar Bess Yes Dianelys [address] [facility] n Calcium n Calcium 7-24 [facility] Clopidogrel Clopidogrel Yes Dianelys [address] [facility] Bisulfate Bisulfate 7-24 [facility] Lisinopril Lisinopril Yes Dianelys [address] [facility] 7-24 [facility] amLODIPine amLODIPine Yes YANELI TAKE 1 [...] # Franko 00 30 tab, 2 Refill(s) lisinopril Yes 20 mg = 1 Me moria 20 mg oral 8-28 tab, PO, l tablet 19:26: Daily, # Franko 00 30 tab, 2 Refill(s) clopidogrel Yes 75 mg = 1 M emoria 75 mg oral 8-28 tab, PO, l tablet 19:26: Daily, # Busy 00 30 tab, 2 Refill(s) atorvastati Yes 20 mg = 1 M emoria n 20 mg 8-28 tab, PO, l oral tablet 19:26: Bedtime, # Franko 00 30 tab, 2 Refill(s) Aspirin 325 Yes 325 mg = 1 Memoria MG Enteric 8-28 tab, PO, l Coated 19:26: Daily, # Busy Tablet 00 30 tab, 2 Refill(s) Lisinopril No Notes: Memor ia 07-08 (Same as: l 17:00: Prinivil, Franko Zestril) Docusate No Notes: Memoria Sodium 50 07-07 (Same as l MG / 22:00: Senokot-S) sennosides, 00 Equiv. to HALF-WAY 8.6 MG Anai-Colac Oral Tablet e. Tramadol No Notes: Not Mem oria 07-07 to exceed l 18:07: 400mg/day. Busy 00 (Same As: Ultra) Midazolam No 2 [...] ia 300 07-07 Route: l 18:04: INTRAARTER Busy 00 IAL, Dosing Weight 88.636, kg, ONCE, Start date: 07/07/18 13:04:00 CDT, Stop date: 07/07/18 13:04:00 CDT captopril No Notes: Memori a 07-07 Give on l 17:25: empty stomach. 1 hour before meal. (Same As: Capoten) remove No Notes: Memoria patch Remove l 02:00: patch 12 Franko 00 hours after applicatio n each day. remove No Notes: Memoria patch 07-06 Remove old l 14:00: patch Franko before applicatio n of new patch. WASTE: F/P - P Waste Black; E - P Waste Black Aspirin 325 No Notes: Papi jigna MG Enteric 07-06 Take with l Coated 14:00: food. Busy Tablet 00 Lidocaine No Notes: Memori a 0.05 MG/MG 07-06 Apply only l Transdermal 14:00: once for He rmann Patch 00 up to 12 hours in a 24-hour period (12 hours on and 12 hours off). (Same as: Lidoderm) "Remove old patch before applicatio n of new patch" Amlodipine No 5 mg, 1 Papi jigna - tab, l 13:03: Route: PO, Drug form: TAB, Daily, Dosing Weight 88.636, kg, Start date: 07/06/18 8:03:00 CDT, Duration: 30 day, Stop date: 08/04/18 9:00:00 CDT Tylenol No Notes: Do Memor ia - not exceed l 07:07: 4 gm/day. Busy (Same as: Tylenol) Spironolact No 25 mg = 2 M emoria one 8-25 tab, PO, l 16:50: Daily, # Franko 00 60 tab, 0 Refill(s) Furosemide No Daily, 0 Mem oria 8-25 Refill(s) l 16:50: amLODIPine No 20 mg = 2 Me moria 10 mg oral 8-25 tab, PO, l tablet 16:50: QAM, 0 Refill(s) Nicotine No Notes: Memoria 8-25 (Same as: l 14:00: Habitrol) "Remove old patch before applicatio n of new patch" WASTE: F/P - P Waste Black; E - P Waste Black Plavix No Notes: Memoria 8-25 (Same As: l 14:00: Plavix) Aspirin 81 No Notes: Do Me moria MG Enteric 8-25 not crush l Coated 13:00: or chew. Busy Tablet 00 (Same As: Ecotrin) Saline No Notes: Memoria Flush 0.9% 8-25 (Same as: l 02:00: BD Busy 00 Posiflush) atorvastati No Notes: Papi jigna n [...] ONLY" Saline No Notes: Memoria Flush 0.9% 24 (Same as: l 20:01: BD Franko 00 Posiflush) Hydralazine No Notes: Papi jigna 8-24 (Same as: l 20:01: Apresoline ) Push over 5 minutes Labetalol No 10 mg, 2 Papi jigna 8-24 mL, Route: l 20:01: IVP, Drug form: INJ, Q15Min, Dosing Weight 88.636, kg, PRN Hypertensi on, Start date: 07/04/18 15:01:00 CDT, Duration: 30 day, Stop date: 08/03/18 15:00:00 CDT Ondansetron No Notes: Paip jigna 8-24 (Same as: l 20:01: Zofran) Franko 00 MEDICATION WASTE Product Size: 4 mg Product Wasted: ___ mg Sodium No 1,000 mL, Memori a Chloride 07-04 Rate: 100 l 0.9% IV 20:01: ml/hr, Busy 1,000 mL 00 Infuse over: 10 hr, Route: IV, Dosing Weight 88.636 kg, Total Volume: 1,000, Start date: 07/04/18 15:01:00 CDT, Duration: 30 day, Stop date: 08/03/18 15:00:00 CDT, 2.11, m2 Saline No Notes: Memoria Flush 0.9% 24 (Same as: l 19:01: BD Busy 00 Posiflush) Amlodipine Amlodipine Yes Dianelys [address] [facility] Besylate Besylate Millender Florecita kes - [facility] ent Clinics Lasix Lasix Yes Dianelys [address] [facility] [facility] Spironolact Spironolact 2019- No Dianelys [address] [facility] [facility] one one 11-24 Millender [facility] 00[facility] Vital Signs Vital Name Observation Time Observation Value Comments Source BP Systolic 2018-07-21 150 mm[Hg] Location: [facility] 10:50:00 Position: [place] [facility] BP Diastolic 2018-07-21 83 mm[Hg] Location: [facility] 10:50:00 Position: [place] [facility] S[facility] Height 2018-07-21 67 [in_us] [facility] 10:50:00 [place] [facility] Weight 2018-07-21 184 [lb_av] [facility] 10:50:00 [place] [facility] Body Mass Index 2018-07-21 28.82 kg/m2 [place] [facility] f Calculated 10:50:00 [place] [facility] Heart Rate 2018-07-21 55 /min Location: [facility] 10:50:00 Brachial [place] [facility] Artery; Systolic (mm Hg) 2018-07-08 [facility] rmann 21:00:00 Diastolic (mm Hg) 2018-07-08 [facility] ermann 21:00:00 Respitory Rate 2018-07-08 [facility] Herm sylvia 21:00:00 Systolic (mm Hg) 2018-07-08 [facility] rmann 20:00:00 Diastolic (mm Hg) 2018-07-08 [facility] 20:00:00 Respitory Rate 2018-07-08 [facility] [...] Performing Clinician Source Performed CT Head/Neck CTA [id number] 2018-07-21 00:00:00 [facility] Selective catheter 2018-07-07 17:40:00 [facility] Franko placement, vertebral artery, unilateral, with angiography of the ipsilateral vertebral circulation and all associated radiological supervision and interpretation, includes angiography of the cervicocerebral arch, when performed Plan of Care Planned Activity Planned Date Details Comments Source Future Scheduled Test 2020-08-11 00:00:00 IMM Influenza [facility] Seasonal Aug to January (>/= 19 yrs) [code = IMM Influenza Seasonal Aug to January (>/= 19 yrs)] Future Scheduled Test 2008 00:00:00 Screening for [facility] malignant neoplasm of colon (procedure) [code = 353544740] Encounters Start End Encounter Admission Attending Care Care Encounter Source Date/Time Date/Time Type Type Clinicians Facility Department ID 2017-10-08 Inpatient C MCS[facility]X M[facility] [id number] Medical 07:14:00 [facility] 2017-08-29 Inpatient MCSETX MED [id number] Medical 13:35:00 [facility] 2017-07-03 Inpatient C MCSETX MCSETX [id number] Medical 15:05:00 [facility] 2021-01-06 2021-01-06 Orders Doctor HENRRY [id number] 00:00:00 00:00:00 Only UnassignedSHIRA [id number] [place] [facility] [id number] [id number] [id number] 2021-01-06 2021-01-06 Telephone MOODY Gomez [id number] 00:00:00 00:00:00 [facility] [id number] Surgical 4.2.7.2.686 Specialti [id number] es 198 Gila 2021-01-06 2021-01-06 [facility] [id number] 00:00:00 00:00:00 [facility] 2020-12-21 2020-12-21 Orders Doctor HENRRY [id number] 00:00:00 00:00:00 Only UnassignedSHIRA [id number] [place] [facility] 4.2.7.2.686 [id number] 2020-12-16 2020-12-16 Prep For MOODY Gomez [id number] 00:00:00 00:00:00 Surgery [facility] [id number] Surgical [id number] Specialti [id number] es 198 Gila 2020-12-15 2020-12-15 Office MOODY Gomez [id number] 13:05:48 13:44:18 Visit Liam L [facility] [id number] Surgical 4.2.7.2.686 [facility] [id number] Stephanie Gila 2020-10-27 2020-10-27 [facility] [id number] 2020-08-27 2020-08-27 [facility] [id number]00 [facility] 2020-08-23 2020-08-23 [facility] [id number] 2020-01-10 2020-01-10 [facility] [id number] [facility] 15:39:00 15:39:00 [facility] Medicine Outpati ent Clinics 2020-01-08 2020-01-08 [facility] [id number] 14:30:00 14:30:00 [facility] Medicine Outpati ent Clinics 2019-11-19 2019-11-19 [facility] [id number] 09:51:00 09:51:00 t Urgent Urgent Care [facility] Outpati ent Clinics 2019-09-09 2019-09-09 [facility] [id number] 13:40:00 13:40:00 t [facility] Medicine Medicine Outpati ent Clinics 2019-08-19 2019-08-19 [facility] [id number] 14:30:00 14:30:00 t [facility] Medicine Medicine Outpati ent Clinics 2019-08-11 2019-08-11 [facility] [id number] 11:44:00 11:44:00 t [facility] Medicine Medicine Outpati ent Clinics 2019-07-09 2019-07-09 [facility] [id number] 14:50:00 14:50:00 t [facility] Medicine Medicine Outpati ent Clinics 2019-07-02 2019-07-02 [facility] [id number] 08:51:00 08:51:00 t [facility] Outpati ent Clinics 2019-06-11 2019-06-11 [facility] [id number] 11:55:00 11:55:[address] [facility] Outpati ent Clinics 2019-06-08 2019-06-08 [facility] [id number] 14:00:00 14:00:00 t [facility] Medicine Outpati ent Clinics 2019-06-03 2019-06-03 [facility] [id number] 10:15:00 10:15:00 t [facility] Outpati ent Clinics 2019-04-14 2019-04-14 Outpatient [facility] 003 [id number] 14:30:00 14:30:00 Solitario Welsh 2019-03-11 2019-03-11 [facility] [id number] 10:50:00 10:50:00 t [facility] Outpati ent Clinics 2019-03-05 2019-03-05 [facility] [id number] 13:30:00 13:30:00 t [facility] Outpati ent Clinics 2018-12-23 2018-12-23 Appointmen MADDISON HATHAWAY [id number] Univers 14:00:00 14:00:00 t; CHANDRAKANT HATHAWAY NP [facility] [place], [place] [employer] Physici ans 2018-07-21 2018-07-21 Appointmen MADDISON CHOW Neurology [id number] Univers 11:00:00 11:00:00 t; RAJI CHOW it [facility] [place], M.D. [place] M.D. [facility]ici ans 2018-07-04 2018-07-08 [facility] [id number] 13:31:00 17:30:00 Bridgett Gamboa 2018-05-23 2018-05-[address] [facility] [id number] Sky 20:46:01 20:46:01 Health 2018-05-23 2018-05-23 Emergency [facility] [id number] Sky 19:26:42 19:26:42 Health 2017-08-12 2017-08-12 Outpatient C MCSETX M[facility] [id number] Medical 09:26:00 09:26:00 [facility] 2017-06-13 2017-06-13 Outpatient C MCSETX MCSETX [id number] Medical 14:15:00 14:15:00 [facility] 2017-06-05 2017-06-05 Outpatient C MCSET[facility] MED [id number] Medical 09:33:00 09:33:00 [facility] 2017-03-19 2017-03-19 Outpatient C MCSETX KIKA [id number] Medical 07:13:00 07:13:00 [facility] 2017-02-06 2017-02-06 Outpatient C MCSETX KIKA [id number] Medical 07:43:00 07:43:00 [facility] 2017-01-08 2017-01-08 Outpatient C MCSETX MED [id number] Medical 07:03:00 07:03:00 [facility] Results Test Description Test Time Test Comments [...] Nena nn 08:36:00 HEMATOLOGY 2018-07-08 91.7 Memorial Nean nn 08:36:00 HEMATOLOGY 2018-07-08 6.4 Memorial Nena [...] = MCH) 32.6 pg 27.0-31.0 [facility] HermannPARATHYROID ITWJWYB4181-81-40 08:36:001.08[facility] Busy PARATHYROID NBMWZXP6076-57-40 08:36:001.10[facility] WfudgajYJBWKQUAFHQC5899-69-31 05:01:004.0[facility]orial MccqxyjCKBRZESVZUEZ4136-91-58 05:01:14225Drbsocym Franko KXWPJJHOCWLC1719-31-40 05:01:0017[facility] OurtumvHDTXSWJTUESQ7040-62-21 05:01:00 142[facility] QvgqdggDYVIDPLWCZKM4843-77-53 05:01:0097[facility] HermannELECTROLYTES 2018-07-07 05:01:000.82[facility] DulsvpaDJKRTBOMTBNK4643-33-69 05:01:0022[facility] JwgauafITSCVECWGSFA2244-11-41 05:01:008.0[facility] QyczxxcTPWVDHRRIH0396-65-63 05:01:0023.2[facility] FakeoxsHIZTRUVQZP9456-74-65 05:01:0064.9[facility] Franko SCMFSHALFP9537-05-61 05:01:000.2[facility] VkkzlytVRLJQKOHJJ0322-91-78 05:01:000.1 Memorial FmdjvbdVWATYDUMXH5843-58-53 05:01:001.3[facility] HermannHEMATOLOGY 2018-07-07 05:01:004.0[facility] XcjvtofMHKUWOKFCQ2222-73-27 05:01:008.0[facility] XxygdiuDZDBMUBOZZ0220-91-16 05:01:002.6[facility] MbdbisiGOXRGQWFEE9483-40-95 05:01:001.4[facility] EgnliqsFBITIAWTTK0663-97-13 05:01:000.5[facility] Busy SEYVZSBRYL3848-26-20 05:01:28558Cxdqjgdg ZjbidgkDLHAFYSKYX4067-13-90 05:01:008.3 Memorial DcbpgevWQWWAUCWAN8980-60-51 05:01:0014.2[facility] HermannHEMATOLOGY 2018-07-07 05:01:0093.2[facility] RhmcjphYCPYWCTUBU2345-15-22 05:01:00 Test Item Value Reference Range Interpretation Comments MCH (test code = MCH) 32.3 pg 27.0-31.0 [facility] NlgeprvLLJDBBYURX9556-99-95 05:01:0014.6[facility] HermannHEMATOLOGY 2018-07-07 05:01:0042.2[facility] AbvgeynCVBLBVVAEM6201-30-97 05:01:0034.7[facility] SuhpdevDOZOVWWCEK0284-83-02 05:01:004.53[facility] KnpgzvuIVXIIZUMFM1063-90-04 05:01:006.1MAscension Borg[facility]-Pipp HospitalNtuxqtrKCDSQSXLBQ7642-06-40 05:01:00 Test Item Value Reference Range Interpretation Comments PT (test code = PT) 12.3 s 12.0-14.7 [facility]firdeFQCFBEGPZJ4333-96-32 05:01:00 Test Item Value Reference Range Interpretation Comments PTT (test code = PTT) 26.7 s 22.9-35.8 [facility] HospitalZpybggpEKKAWPHHTN6360-30-24 05:01:00 Test Item Value Reference Range Interpretation Comments INR (test code = INR) 0.91 1 0.85-1.17 [facility]QjfzwkaNBLCKFHEXQ8363-73-63 05:01:[facility] 2018-07-07 05:01:00 Test Item Value Reference Range Interpretation Comments Coag Index (test code 1.0 1 See_Comment [Auto mated message] The = Coag Index) system which g enerated this result transmit willow reference range : <=3.0. The reference range was not used to interpr et this result as rosalina l/abnormal. [facility]VfbbrvvGZXJTYMDYT6231-85-67 05:01:00 Test Item Value Reference Range Interpretation Comments Max Amp (test code = Max Amp) 55.2 mm 50.0-70.0 [facility] TexasCvesjmiSMVOXIPRYR9470-98-16 05:01:006.2[facility] 2018-07-07 05:01:00 Test Item Value Reference Range Interpretation Comments R-time (test code = R-time) 3.8 min 5.0-10.0 [facility] [place]EmpzsdwNMBPFAUCNE1248-89-74 05:01:00 Test Item Value Reference Range Interpretation Comments K-time (test code = K-time) 1.7 min 1.0-3.0 [facility] HospitalCjziyqdZWDBHWMTOT2264-65-08 05:01:00 Test Item Value Reference Range Interpretation Comments Angle (test code = Angle) 67.9 degrees 53.0-72.0 [facility] HospitalJidauufBFORMLADOV0343-10-09 05:01:00See Note (07/07/18 12:01 AM)[facility] MTXIMCB3249-04-97 05:01:001.06[facility] HermannPARATHYROID BWQIEOH6666-21-98 05:01:001.07[facility] HermannBLOOD BANK RRJQYLF9933-83-35 05:01:00Negative (07/07/18 12:01 AM)[facility] HermannCHEM MPYVP9746-47-24 05:01:00 2.6[facility] HermannCHEM OQOXX7448-59-73 05:01:002.2[facility] HermannELECTROLYTES 2018-07-07 05:01:0014.0[facility]orial BgzsdasZYMWXXGQKKDF6981-09-81 05:01:0097[facility] HermannCHEM XIUWQ2554-73-02 20:40:001.9[facility] HermannCHEM GQUGK7769-58-06 05:31:002.1[facility] HermannCHEM URFRK9780-07-50 05:31:002.8[facility] HermannCHEM PRDGQ6737-97-22 05:31:00 Test Item Value Reference Range Interpretation Comments A/G Ratio (test code = A/G Ratio) 0.7 1 0.7-1.6 [facility] HermannCHEM AKWQZ3367-50-66 05:31:003.5[facility] HermannCHEM PANEL 2018-07-06 05:31:000.7[facility] HermannCHEM MCEGT9401-13-02 05:31:000.5[facility] HermannCHEM VZXHY8288-93-77 05:31:005.9[facility] HermannCHEM MMNBF8366-94-73 05:31:0095[facility] HermannCHEM AJHKI4077-55-31 05:31:002.4[facility] HermannCHEM HXVQK1128-12-58 05:31:99166Fllmwmfm HermannCHEM MQQRD9542-16-80 05:31:0087 [facility] HermannCHEM QORIE2239-44-92 05:31:000.2[facility] HermannELECTROLYTES 2018-07-06 05:31:0011.7[facility] McmqjucUXYXMVUIQHQW2398-23-41 05:31:38102 Memorial TzqxjfrRHKVEYBBFQZO0564-81-72 05:31:0017[facility] HermannELECTROLYTES 2018-07-06 05:31:000.68[facility] IipqppqRHRRCSHZSFLB0903-97-69 05:31:003.7 [facility] NesnfzpEVAWLCPWLDBL1385-18-93 05:31:79631Vjmfwwdc HermannELECTROLYTES 2018-07-06 05:31:0025[facility] DzubsvlWHQIZOZYBCAO8671-32-00 05:31:89132Fckgwlzm UosxslkFIDVSXGCPCXQ3327-82-01 05:31:41586Lnwlurcw PucitofOVZSBJLSOAFS6376-41-08 05:31:007.8[facility] WgintvvJQJUZWLFFT3511-32-36 05:31:0013.7[facility] Franko QRTJEQCSNV0927-26-35 05:31:0035.5[facility] LxgqjlbHAXATSWPUT6144-98-73 05:31:00 127[facility] ByewxpmAEIYNHHQQD5936-56-75 05:31:008.2[facility] HermannHEMATOLOGY 2018-07-06 05:31:006.3[facility] LoedkqvWAWTYEHPLY8778-40-37 05:31:004.61[facility] TtfsplzWJAQLXVXCJ7350-16-66 05:31:0014.9[facility] WuywejiJIXEBIQSEV5942-70-06 05:31:0042.1[facility] XnxkezrJTWWQKWKUG2316-27-44 05:31:0091.2[facility] Busy BDOQAYYEZX9507-22-76 05:31:00 Test Item Value Reference Range Interpretation Comments MCH (test code = MCH) 32.4 pg 27.0-31.0 [facility] IgdzhagSNZBJOKOSC8053-41-53 05:31:001.2[facility] HermannHEMATOLOGY 2018-07-06 05:31:000.6[facility] AiwtrjlZMXARXBVQF7061-96-66 05:31:000.2[facility] JljutulBCIUBDTXLS2306-58-34 05:31:000.1[facility] MjsajvqDNTAWYQLOS2829-79-15 05:31:002.4[facility] VfibpbmGVMEHGSNHS6737-45-88 05:31:004.3[facility] DFVLOREAER0793-61-66 05:31:001.0[facility] VcbxtsiCEQGSVSQNH9548-44-52 05:31:00 68.6[facility] FiphnboRALMVLSAZJ3938-93-88 05:31:0018.8[facility]OLOG[facility] 2018-07-06 05:31:009.2[facility]annPARATHYROID HBRLPLR3973-97-69 05:31:001.10 [facility]RO[facility] FDIETSC4282-23-50 05:31:001.10[facility] HermannLIPIDS 2018-07-04 20:41:0076[facility] [id number] 20:41:00 Test Item Value Reference Range Interpretation Comments VLDL (test code = VLDL) 25 1 [facility] [id number] 20:41:15228Mdqgytep OfewrrlIPIMFJ5356-00-18 20:41:0052[facility] PdiyldsLZRWOY8541-71-72 20:41:83748Bivmoqoo HermannLIPIDS 2018-07-04 20:41:00 Test Item Value Reference Range Interpretation Comments CHD Risk (test code = CHD Risk) 2.94 1 4.00-7.30 [facility] [id number] 20:41:005.0[facility] HermannCHEM [id number] 20:40:000.2[facility] HermannCHEM [id number] 20:40:48932 [facility]ann[facility] [id number] 20:40:003.8[facility] HermannCHEM PANEL 2018-07-04 20:40:000.9[facility]annCHEM [id number] 20:40:00 Test Item Value Reference Range Interpretation Comments A/G Ratio (test code = A/G Ratio) 0.7 1 0.7-1.6 [facility]ann[facility] [id number] 20:40:30258Fnbynhlz HermannCHEM PANEL 2018-07-04 20:40:006.5[facility]annCHEM [id number] 20:40:002.7[facility]annCHEM [id number] 20:40:31931Exflrupf HermannCHEM [id number] 20:40:00 Test Item Value Reference Range Interpretation Comments B/C Ratio (test code = B/C Ratio) 18 1 6-25 [facility] [id number] 20:28:00Negative *NA*(07/04/18 3:28 PM) [facility] [id number] 20:28:00Negative *NA*(07/04/18 3:28 PM) [facility] [id number] 20:28:00Negative *NA*(07/04/18 3:28 PM) [facility] [id number] 20:28:00Negative *NA*(07/04/18 3:28 PM) [facility] [id number] 20:28:00Negative *NA*(07/04/18 3:28 PM) [facility] [id number] 20:28:00Negative *NA*(07/04/18 3:28 PM) [facility] [id number] 20:28:00See Note (07/04/18 3:28 PM)[facility] [id number] 20:28:00Negative *NA*(07/04/18 3:28 PM)[facility] [id number] 20:28:00None Seen (07/04/18 3:28 PM)[facility] [id number] 20:28:00None Seen (07/04/18 3:28 PM)[facility] [id number] 20:28:00None Seen (07/04/18 3:28 PM)[facility] [id number] 20:28:00None Seen (07/04/18 3:28 PM)[facility] [id number] 20:28:00Negative *NA*(07/04/18 3:28 PM)[facility] [id number] 20:28:00Negative *NA*(07/04/18 3:28 PM)[facility] [id number] 20:28:00 Test Item Value Reference Range Interpretation Comments UA Spec Grav (test code = UA Spec 1.025 1 Grav) [facility] [id number] 20:28:00Clear (07/04/18 3:28 PM) [facility] [id number] 20:28:001.0[facility] [id number] 20:28:00Negative (07/04/18 3:28 PM)[facility] [id number] 20:28:00 Test Item Value Reference Range Interpretation Comments UA pH (test code = UA pH) 6.0 1 5.0-8.0 [facility] [id number] 20:28:00Negative (07/04/18 3:28 PM) [facility] [id number] 20:28:00Negative (07/04/18 3:28 PM) [facility] [id number] 20:28:00Moderate *ABN*(07/04/18 3:28 PM)[facility] [id number] 20:28:00Yellow *NA*(07/04/18 3:28 PM)[facility]annCHEM [id number] 19:44:000.7[facility] HermannCARDIAC [id number] 19:29:00<0.02[facility] HermannCARDIAC [id number] 19:29:0086[facility] [id number] 19:29:00 Test Item Value Reference Range Interpretation Comments Tot Cell Ct (test code = Tot Cell Ct) 100 1 [facility] [id number] 19:29:00Normal (07/04/18 2:29 PM)[facility] O[id number] 19:29:00Normal (07/04/18 2:29 PM)[facility] Busy [id number] 19:29:000.0[facility] GgawrbfZCVUKUQASM7681-21-62 19:29:000.0 [facility] [id number] 19:29:00 Test Item Value Reference Range Interpretation Comments PTT (test code = PTT) 20.4 s 22.9-35.8 [facility] [id number] 19:29:00 Test Item Value Reference Range Interpretation Comments INR (test code = INR) 0.93 1 0.85-1.17 [facility]-82 19:29:00 Test Item Value Reference Range Interpretation Comments PT (test code = PT) 12.5 s 12.0-14.7 [facility] ABD PARCENTESIS W/[id number] 14:43:00ULTRASOUND DIRECTED PARACENTESIS:CLINICAL HISTORY: Ascites. Cirrhosis.Written and [...] with removal of 4 Lof fluid.US ABDOMEN FTJBLAF-[id number] 14:41:12ULTRASOUND ABDOMEN LIMITED:CLINICAL HISTORY: Ascites. Images were obtained over a quadrants of the abdomen for evaluation forascites volume. There is a moderate to large volume ascites.IMPRESSION:1. Moderate volume ascites.SP ABD PARCENTESIS W/[id number] 12:25:33Information: AscitesUltrasound guided paracentesisFollowing verbal and written [...] Ultrasound-guided paracentesis as described above.SP ABD PARCENTESIS W/[id number] 11:52:16Information: CirrhosisShunt paracentesisFollowing verbal and written consent [...] satisfactory condition.IMPRESSION:1. Ultrasound-guided paracentesis as described above.US DUPLX ART FLOW, ABD/PELV [id number] 11:44:42EXAM: Abdominal Sonography with Hepatic Elastography.TECHNIQUE: Serial multiplanar grayscale imagingwith/without Dopplerinterrogation including color flow imaging and Doppler waveformanalysis. Hepaticelastography measurements were made utilizing Eleven Wirelessq 7 ultrasound unit (C5-1 multifrequency transducer).HISTORY: Cirrhosis..COMPARISON: [...] 12.0 - 2.64+ Moderate - SevereUS ABDOMEN [id number] 11:19:24EXAM: Abdominal Sonography with Hepatic Elastography.TECHNIQUE: Serial multiplanar grayscale imagingwith/without Dopplerinterrogation including color flow imaging and Doppler waveformanalysis. Hepaticelastography measurements were made utilizing [employer] Epiq 7 ultrasound unit (C5-1 multifrequency tr [...]
[2021-01-31] MEDS ORDERED: NA CHLORIDE 0.9% 500 ML ONE (18:42)
[2021-01-31] MEDS ORDERED: PANTOPRAZOLE 40 MG INJ ONE (18:42)
--- NOTE | 2021-01-31 18:42 | RAD REPORT ---
EXAM DESCRIPTION: RAD - Chest Single View - 01/31/2021 6:29 pm CLINICAL HISTORY: SOB Chest pain. COMPARISON: Chest Single View dated 12/17/2020; Chest Pa And Lat (2 Views) dated 01/21/2020; Chest Sing le View dated 12/04/2019; Chest Single View dated 12/04/2019 FINDINGS: Portable technique limits examination quality. The lungs are grossly clear. The heart is normal in size. No displaced fractures. IMPRESSION: No acute intrathoracic process suspected.
[2021-01-31] MEDS ORDERED: PANTOPRAZOLE INJ 80 MG in NA CHLORIDE 0.9% 250 ML IV SCH (19:00)
[2021-01-31] MEDS ORDERED: OCTREOTIDE ACETATE 100 MCG/ML IV SCH (19:00)
[2021-01-31 19:19] LABS: Absolute Lymphocytes (CBC) 2.5 K/uL (0.7-4.9); Basophils % 0.6 % (0-1.3); Hematocrit 15.9 % (39.6-49.0); Lymphocytes % 23.1 % (15.3-44.8); MPV 9.2 fL (7.6-11.3); RBC Red Blood Cell Count 2.05 M/uL (4.33-5.43)
[2021-01-31 19:25] LABS: Protime INR 1.13
[2021-01-31] MEDS ORDERED: OCTREOTIDE ACETATE 100 MCG/ML ONE (19:29)
[2021-01-31] MEDS ORDERED: OCTREOTIDE 500 MCG in NA CHLORIDE 0.9% 500 ML IV SCH (19:30)
[2021-01-31 19:41] LABS: ALT/SGPT 38 U/L (12-78); AST/SGOT 44 U/L (15-37); Albumin 2.7 g/dL (3.4-5.0); Alkaline Phosphatase 78 U/L (45-117); BUN Blood Urea Nitrogen 91 mg/dL (7-18); Bicarbonate 20 mmol/L (21-32); Bilirubin Direct < 0.1 mg/dL (0-0.2); Bilirubin Total 0.2 mg/dL (0.2-1.0); Glucose Level 102 mg/dL (74-106); Magnesium 2.1 mg/dL (1.8-2.4); NT PRO-BNP 134 pg/mL (<125); Potassium 4.5 mmol/L (3.5-5.1); Protein, Total 5.7 g/dL (6.4-8.2); Sodium Level 142 mmol/L (136-145); Troponin (Emerg Dept Use Only) 0.06 ng/mL (0.0-0.045)
[2021-01-31] MEDS ORDERED: ACETAMINOPHEN 325 MG TABLET ONE (21:28)
[2021-01-31] MEDS ORDERED: HYDROCORTISONE SUC 100 MG INJ ONE (21:28)
[2021-01-31] MEDS ORDERED: DIPHENHYDRAMINE 50 MG/ML VIAL ONE (21:29)
[2021-01-31] MEDS ORDERED: DIPHENHYDRAMINE 12.5MG/5ML LIQ ONE (21:29)
[2021-01-31] MEDS ORDERED: NA CHLORIDE 0.9% 250 ML ONE (22:04)
--- NOTE | 2021-01-31 23:01 | EDPHYS ---
Physician Documentation [facility] Name: Blaise Renee Age: 60 yrs Sex: Male : 1960 Arrival Date: 01/31/2021 Time: 18:01 Bed 14 Private MD: ED Physician Bradly Lundberg HPI: 01/31 18:36 This 60 yrs old Male presents to ER via EMS with complaints of Diarrhea. pm1 18:36 The patient presents to the emergency department with diarrhea, 3-4 episodes per day of pm1 black tarry diarrhea for the past three days. 18:36 Onset: The symptoms/episode began/occurred 3 day(s) ago. Possible causes: unknown. The pm1 symptoms are aggravated by nothing. The symptoms are alleviated by nothing. Associated signs and symptoms: Pertinent positives: shortness of breath onset 2 days ago, Pertinent negatives: abdominal pain, fever, chest pain. Severity of symptoms: in the emergency department the symptoms are worse. The patient has not experienced similar symptoms in the past. admitted on 12/17/2020 for right hip fracture. Historical: - Allergies: 18:04 No Known Allergies; vg1 - Home Meds: 18:04 amlodipine oral [Active]; atorvastatin Oral [Active]; clopidogrel Oral [Active]; Lasix vg1 Oral [Active]; lisinopril Oral [Active]; Spironolactone Oral [Active]; - PMHx: 18:04 Cirrhosis; Hepatitis; Hypertension; vg1 - Immunization history:: Adult Immunizations up to date. - Social history:: Smoking status: Patient/guardian denies using tobacco, Stopped _ months ago 1.5. ROS: 18:36 Constitutional: Negative for fever, chills, and weight loss, Cardiovascular: Negative pm1 for chest pain, palpitations, and edema. 18:36 Back: Negative for injury and pain, : Negative for injury, bleeding, discharge, and swelling, MS/Extremity: Negative for injury and deformity, Skin: Negative for injury, rash, and discoloration. 18:36 Respiratory: Positive for shortness of breath, Negative for cough, sputum production, wheezing. 18:36 Abdomen/GI: Positive for black/tarry stool, Negative for abdominal pain, nausea and vomiting, constipation, rectal pain. 18:36 Neuro: Positive for generalized weakness, Negative for headache, numbness, tingling. 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 18:36 Head/Face: Normocephalic, atraumatic. pm1 18:36 Back: No spinal tenderness. No costovertebral tenderness. Full range of motion. 18:36 Constitutional: The patient appears in no acute distress, alert, awake, comfortable, obviously ill, pale. 18:36 Eyes: Conjunctiva: pale, bilaterally. 18:36 Cardiovascular: Exam negative for acute changes, Rate: normal, Rhythm: regular, Pulses: no pulse deficits are appreciated, Heart sounds: normal. 18:36 Respiratory: Exam negative for acute changes, respiratory distress, shortness of breath, Breath sounds: are clear throughout. 18:36 Skin: Appearance: normal except for affected area, Color: pale. 18:36 Neuro: Exam negative for acute changes, Orientation: is normal, Mentation: is normal, Motor: moves all fours. Vital Signs: 18:00 BP 108 / 80; Pulse 101; Resp 16; Pulse Ox 100% ; vg1 18:01 BP 141 / 92; Pulse 110; Resp 16; Temp 98.6; Pulse Ox 100% ; Weight 68.04 kg; Height 5 vg1 ft. 9 in. (175.26 cm); Pain 0/10; 20:31 BP 124 / 62; Pulse 90; Resp 16; Pulse Ox 100% on R/A; vg1 21:30 BP 113 / 71; Pulse 90; Resp 22; Pulse Ox 100% on R/A; vg1 22:30 BP 122 / 67; Pulse 90; Resp 20; Pulse Ox 99% on R/A; vg1 23:36 BP 129 / 70; Pulse 85; Resp 22; Temp 98.5; Pulse Ox 98% on R/A; vg1 18:01 Body Mass Index 22.15 (68.04 kg, 175.26 cm) vg1 MDM: 18:07 Patient medically screened. pm1 21:36 Data reviewed: vital signs. Data interpreted: Pulse oximetry: on room air is 100 %. pm1 Interpretation: normal. Counseling: I had a detailed discussion with the patient and/or guardian regarding: the historical points, exam findings, and any diagnostic results supporting the discharge/admit diagnosis, lab results, the need for further work-up and treatment in the hospital. 21:36 Physician consultation: Augustus ALAN was contacted at 21:36, regarding admission, pm1 patient's condition. 22:47 ED course: Patient reports most recent fall was on 12/17/2020 when he fractured hip. pm1 Aware of left rib fractures that occurred about 1 year ago. 22:50 Physician consultation: Jaylen Ventura MD was contacted at 22:51, regarding consult, pm1 patient's condition, after a discussion of the case, a recommendation for transfer for higher level of care is made, He would like to transfer the patient due to concerns for possible surgery, patient needs liver team, variceal bleeding risk due to cirrhosis and we do not have the appropriate banding equipment here. 22:57 Counseling: I had a detailed discussion with the patient and/or guardian regarding: the pm1 historical points, exam findings, and any diagnostic results supporting the discharge/admit diagnosis, lab results, radiology results, the need to transfer to another facility, for higher level of care. 23:27 Physician consultation: Stan Benjamin was contacted at 23:38, regarding patient's pm1 condition, and will accept patient for transfer. 01/31 18:11 Order name: Type And Screen pm1 01/31 18:11 Order name: Basic Metabolic Panel; Complete Time: 19:45 pm1 01/31 18:11 Order name: CBC with Diff; Complete Time: 19:33 pm1 01/31 18:11 Order name: LFT's; Complete Time: 19:45 pm1 01/31 18:11 Order name: Magnesium; Complete Time: 19:45 pm1 01/31 18:11 Order name: NT PRO-BNP; Complete Time: 19:45 pm1 01/31 18:11 Order name: CT Abd/Pelvis - IV Contrast Only pm1 01/31 18:11 Order name: PT-INR; Complete Time: 19:33 pm1 01/31 18:11 Order name: Troponin (emerg Dept Use Only); Complete Time: 19:45 pm1 01/31 18:11 Order name: XRAY Chest (1 view); Complete Time: 18:54 pm1 01/31 19:48 Order name: Packed RBC Leukored EDMS 01/31 22:05 Order name: SARS-COV-2 RT PCR; Complete Time: 22:11 EDMS 01/31 18:11 Order name: EKG; Complete Time: 18:12 pm1 01/31 18:11 Order name: Cardiac monitoring; Complete Time: 19:26 pm1 01/31 18:11 Order name: EKG - Nurse/Tech; Complete Time: 19:26 pm1 01/31 18:11 Order name: IV Saline Lock; Complete Time: 19:26 pm01/31 18:11 Order name: Labs collected and sent; Complete Time: 19:26 pm01/31 18:11 Order name: O2 Per Protocol; Complete Time: 19:26 pm1 01/31 18:11 Order name: O2 Sat Monitoring; Complete Time: 19: pm01/31 19:34 Order name: Transfuse; Complete Time: 00:43 pm1 Administered Medications: 18:45 Drug: NS 0.9% 500 ml Route: IV; Rate: bolus; Site: left hand; vg1 19:31 Follow up: IV Status: Completed infusion 1 19:25 Drug: Octreotide 50 mcg Route: IV; Rate: bolus; Site: left hand; vg1 21:44 Follow up: Response: No adverse reaction vg1 02/01 00:25 Follow up: IV Status: Completed infusion [facility] 01/31 19:25 Drug: Octreotide Infusion (50 mcg/hr) - (Octreotide 500 mcg, NS 0.9% 500 ml) Route: IV; vg1 Rate: 50 ml/hr; Site: left hand; 02/01 00:30 Follow up: IV Status: Infusion continued upon transfer 01/31 19:26 Drug: ProTONIX 40 mg Route: IVP; Site: left hand; vg1 21:44 Follow up: Response: No adverse reaction vg1 19:26 Drug: ProTONIX 8 mg/hr Route: IV; Rate: 25 ml/hr; Site: left hand; vg1 02/01 00:30 Follow up: IV Status: Infusion continued upon transfer 01/31 21:15 Drug: Tylenol 650 mg Route: PO; vg1 23:11 Follow up: Response: Pain is decreased vg1 21:43 Drug: Solu-CORTEF 50 mg Route: IVP; Site: right forearm; vg1 23:12 Follow up: Response: No adverse reaction vg1 21:44 Drug: Benadryl 12.5 mg Route: IVP; Site: right forearm; vg1 23:12 Follow up: Response: No adverse reaction vg1 Disposition: 01/31/21 23:00 Transfer ordered to [facility]. Diagnosis are Gastrointestinal hemorrhage, unspecified, Subcapsular hematoma of the spleen. - Reason for transfer: Higher level of care. - Accepting physician is . - Condition is Stable. - Problem is new. - Symptoms have improved. Addendum: 02/04/2021 10:06 Co-signature as Attending Physician, Bradly Lundberg MD. r n Signatures: Dispatcher [employer] EDAR Bradly Lundberg MD MD rn Dre Hernandez, SCIENCE EDUCATION PROFESSOR SCIENCE EDUCATION PROFESSOR pm1 Jacquie Tian, RN RN vg1 Josh Walters RN RN sf Corrections: (The following items were deleted from the chart) 01/31 21:15 20:06 CORONAVIRUS+MR.LAB.BRZ ordered. [facility] 02/01 00:42 01/31 23:00 01/31/2021 23:00 Transfer ordered to [facility]. sf Diagnosis is Gastrointestinal hemorrhage, unspecified; Subcapsular hematoma of the spleen. Reason for transfer: Higher level of care. Accepting physician is . Condition is Stable. Problem is new. Symptoms have improved. pm1
--- NOTE | 2021-01-31 23:01 | ER ---
Nurse's Notes [facility] Name: Blaise Renee Age: 60 yrs Sex: Male : 1960 Arrival Date: 01/31/2021 Time: 18:01 Bed 14 Private MD: Diagnosis: Gastrointestinal hemorrhage, unspecified;Subcapsular hematoma of the spleen Presentation: 01/31 18:01 Chief complaint: EMS states: Pt has had diarrhea for 2 days with loss of appetite. Pt vg1 states feels weak and nausea. Coronavirus screen: Client denies travel out of the [place] in the last 14 days. Ebola Screen: Patient negative for fever greater than or equal to 101.5 degrees Fahrenheit, and additional compatible Ebola Virus Disease symptoms. Initial Sepsis Screen: Does the patient meet any 2 criteria? No. Patient's initial sepsis screen is negative. Does the patient have a suspected source of infection? No. Patient's initial sepsis screen is negative. Risk Assessment: Do you want to hurt yourself or someone else? Patient reports no desire to harm self or others. Onset of symptoms was January 29, 2021. 18:01 Method Of Arrival: EMS: [facility] vg1 18:01 Acuity: TRICIA 3 vg1 Historical: - Allergies: 18:04 No Known Allergies; vg1 - Home Meds: 18:04 amlodipine oral [Active]; atorvastatin Oral [Active]; clopidogrel Oral [Active]; Lasix vg1 Oral [Active]; lisinopril Oral [Active]; Spironolactone Oral [Active]; - PMHx: 18:04 Cirrhosis; Hepatitis; Hypertension; vg1 - Immunization history:: Adult Immunizations up to date. - Social history:: Smoking status: Patient/guardian denies using tobacco, Stopped _ months ago 1.5. Screenin:05 Abuse screen: Denies threats or abuse. Nutritional screening: No deficits noted. vg1 Tuberculosis screening: No symptoms or risk factors identified. Fall Risk No fall in past 12 months (0 pts). No secondary diagnosis (0 pts). IV access (20 points). Ambulatory Aid- None/Bed Rest/Nurse Assist (0 pts). Gait- Normal/Bed Rest/Wheelchair (0 pts) Mental Status- Oriented to own ability (0 pts). Total Thompson Fall Scale indicates No Risk (0-24 pts). Assessment: 18:04 General: Appears in no apparent distress. comfortable, Behavior is calm, cooperative. vg1 Pain: Denies pain. Neuro: Level of Consciousness is awake, alert, obeys commands, Oriented to person, place, time. Cardiovascular: Patient's skin is warm and dry. Respiratory: Airway is patent Respiratory effort is even, unlabored. GI: Abdomen is flat, Bowel sounds present X 4 quads. Reports diarrhea, nausea, Patient currently denies vomiting. : No signs and/or symptoms were reported regarding the genitourinary system. EENT: No signs and/or symptoms were reported regarding the EENT system. Derm: Skin is intact, Skin is pink, warm \T\ dry. Musculoskeletal: Circulation, motion, and sensation intact. 19:23 Reassessment: Patient appears in no apparent distress at this time. No changes from vg1 previously documented assessment. Patient and/or family updated on plan of care and expected duration. Pain level reassessed. Patient is alert, oriented x 3, equal unlabored respirations, skin warm/dry/pink. 19:31 Reassessment: Critical results: Hemoglobin 5.3 Hematocrit 15.9. Provider notified. vg1 20:31 Reassessment: Patient appears in no apparent distress at this time. No changes from vg1 previously documented assessment. Patient and/or family updated on plan of care and expected duration. Pain level reassessed. Patient is alert, oriented x 3, equal unlabored respirations, skin warm/dry/pink. Patient c/o right hip pain. Asking for medication, states pain is 10/10. Provider notified. 21:43 Reassessment: Patient appears in no apparent distress at this time. No changes from vg1 previously documented assessment. Patient and/or family updated on plan of care and expected duration. Pain level reassessed. Patient is alert, oriented x 3, equal unlabored respirations, skin warm/dry/pink. 22:53 Reassessment: Patient appears in no apparent distress at this time. Patient and/or vg1 family updated on plan of care and expected duration. Pain level reassessed. Patient is alert, oriented x 3, equal unlabored respirations, skin warm/dry/pink. Pt states feeling a little bit better. 23:35 Reassessment: Patient appears in no apparent distress at this time. Patient and/or vg1 family updated on plan of care and expected duration. Pain level reassessed. Patient is alert, oriented x 3, equal unlabored respirations, skin warm/dry/pink. 02/01 00:30 Reassessment: Blood continued upon transfer via [facility]. sf Vital Signs: 01/31 18:00 BP 108 / 80; Pulse 101; Resp 16; Pulse Ox 100% ; vg1 18:01 BP 141 / 92; Pulse 110; Resp 16; Temp 98.6; Pulse Ox 100% ; Weight 68.04 kg; Height 5 vg1 ft. 9 in. (175.26 cm); Pain 0/10; 20:31 BP 124 / 62; Pulse 90; Resp 16; Pulse Ox 100% on R/A; vg1 21:30 BP 113 / 71; Pulse 90; Resp 22; Pulse Ox 100% on R/A; vg1 22:30 BP 122 / 67; Pulse 90; Resp 20; Pulse Ox 99% on R/A; vg1 23:36 BP 129 / 70; Pulse 85; Resp 22; Temp 98.5; Pulse Ox 98% on R/A; vg1 18:01 Body Mass Index 22.15 (68.04 kg, 175.26 cm) vg1 ED Course: 18:01 Patient arrived in ED. vg1 18:02 Dre Hernandez NP is PHCP. pm1 18:02 Bradly Lundberg MD is Attending Physician. pm1 18:03 Triage completed. vg1 18:06 Maintain EMS IV. Dressing intact. Good blood return noted. Site clean \T\ dry. Gauge \T\ vg 1 site: 20 g Left hand. 18:06 Patient has correct armband on for positive identification. Bed in low position. Call vg1 light in reach. Side rails up X 1. 18:06 Arm band placed on. vg1 18:20 Jacquie Tian, THERESE is Primary Nurse. vg1 18:29 XRAY Chest (1 view) In Process Unspecified. EDMS 21:[address] via stretcher. vg1 21:39 CT Abd/Pelvis - IV Contrast Only In Process Unspecified. EDMS 22:57 initiated a transfer with Shamika Catalan from [facility]. mw2 23:12 [facility] denied due to capacity. mw2 23:13 initiated a transfer with Miley from [facility] Transfer Center. 2 23:23 doc to doc with the Oncology Consultant from [facility]. mw2 23:35 administrative approval given by Miley Callahan/ patient has been accepted to [address] 8A 804/ Dr. Benjamin has accepted the patient in transfer/ report to be called to [phone]. 02/01 00:00 Report given to THERESE Moreno. vg1 00:09 No provider procedures requiring assistance completed. Patient transferred, IV remains vg1 in place. Administered Medications: 01/31 18:45 Drug: NS 0.9% 500 ml Route: IV; Rate: bolus; Site: left hand; vg1 19:31 Follow up: IV Status: Completed infusion vg1 19:25 Drug: Octreotide 50 mcg Route: IV; Rate: bolus; Site: left hand; vg1 21:44 Follow up: Response: No adverse reaction vg1 02/01 00:25 Follow up: IV Status: Completed infusion vg1 01/31 19:25 Drug: Octreotide Infusion (50 mcg/hr) - (Octreotide 500 mcg, NS 0.9% 500 ml) Route: IV; vg1 Rate: 50 ml/hr; Site: left hand; 02/01 00:30 Follow up: IV Status: Infusion continued upon transfer 01/31 19:26 Drug: ProTONIX 40 mg Route: IVP; Site: left hand; vg1 21:44 Follow up: Response: No adverse reaction vg1 19:26 Drug: ProTONIX 8 mg/hr Route: IV; Rate: 25 ml/hr; Site: left hand; vg1 02/01 00:30 Follow up: IV Status: Infusion continued upon transfer 01/31 21:15 Drug: Tylenol 650 mg Route: PO; vg1 23:11 Follow up: Response: Pain is decreased vg1 21:43 Drug: Solu-CORTEF 50 mg Route: IVP; Site: right forearm; vg1 23:12 Follow up: Response: No adverse reaction vg1 21:44 Drug: Benadryl 12.5 mg Route: IVP; Site: right forearm; vg1 23:12 Follow up: Response: No adverse reaction vg1 Outcome: 23:00 ER care complete, transfer ordered by . pm1 02/01 00:09 Transferred by ground EMS to [facility]. vg1 00:10 Condition: good vg1 00:10 Instructed on the need for transfer. sf 00:42 Patient left the ED. sf Signatures: Dispatcher [employer] EDMS Dre Hernandez NP EGG TRAYER pm1 Jeaneth Pino mw2 Jacquie Tian RN RN vg1 Josh Walters RN RN sf Corrections: (The following items were deleted from the chart) 01/31 23:16 23:14 [facility] denied due to capacity mw2 mw2
[2021-02-01] MEDS ORDERED: NA CHLORIDE 0.9% 250 ML ONE (00:02)
[2021-02-01 02:04] VITALS: BP 129/70; TEMP 98.5; O2SAT 98
--- NOTE | 2021-02-01 07:04 | EKG ---
Test Date: 2021-01-31 Test Time: 18:31:20 Training Consultant: TRICIA MEASUREMENT RESULTS: Intervals: Rate: 100 MD: 148 QRSD: 76 QT: 362 QTc: 466 [place]: P: 66 MD: 148 QRS: -20 T: 67 INTERPRETIVE STATEMENTS: Normal sinus rhythm Normal ECG Compared to ECG 12/17/2020 05:01:13 Sinus tachycardia no longer present Left-axis deviation no longer present Electronically Signed On 02-01-21 07:02:26 CDT by Sam Dyer
--- NOTE | 2021-02-01 10:38 | RAD REPORT ---
EXAM DESCRIPTION: CT - Abdomen Pelvis W Contrast - 02/01/2021 7:11 am CLINICAL HISTORY: GI BLEED TECHNIQUE: Contiguous axial images obtained through the abdomen and pelvis following the uneventful administration of IV contrast. Coronal and sagittal reformatted images were provided. This exam was performed according to our departmental dose-optimization program, which includes autom ated exposure control, adjustment of the mA and/or kV according to patient size and/or use of iterati ve reconstruction technique. COMPARISON: Correlation is made with report only from study dated 08/28/2019. FINDINGS: Lung bases: Small right pleural effusion. Coronary artery calcification. Liver: The liver is enlarged with subtle surface contour nodularity. Gallbladder and biliary system: Gallstones within a contracted gallbladder. No gallbladder wall thick ening or pericholecystic fluid. Pancreas: Unremarkable Spleen: The spleen is mildly enlarged measuring 15.7 cm in maximum dimension. Heterogeneous crescenti c area along the lateral aspect of the spleen measuring approximately 7 mm in maximum thickness. Adrenals: Unremarkable Kidneys: Normal renal cortical enhancement. 5 mm and 3 mm calculi at the lower pole collecting system on the left. No hydronephrosis. Bowel: Colonic diverticula without adjacent inflammatory change. No obstruction. No appreciable mucos al thickening. Appendix: Normal caliber appendix. No findings to suggest acute appendicitis. Urinary bladder: Unremarkable Reproductive: Unremarkable as visualized Lymph nodes: Portal hepatic and portacaval lymph nodes measuring up to 13 mm in short axis. Subcentim eter gastrohepatic lymph nodes. Peritoneum: No focal fluid collection. No free air. Vessels: Mild atherosclerotic disease. No abdominal aortic aneurysm. The main portal, splenic and sup erior mesenteric veins appear patent. Abdominal wall: Small fat-containing umbilical hernia. Bones: Multilevel spondylosis. Remote left posterior 10th and 11th rib fractures. No acute fracture. Prior right femoral intertrochanteric fracture gamma nail fixation with incomplete union. IMPRESSION: 1. Colonic diverticulosis without radiologic evidence for acute diverticulitis. 2. Findings suggestive of hepatic cirrhosis and sequela of portal hypertension. 3. Heterogeneous crescentic area along the lateral aspect of the spleen measuring approximately 7 m m in maximum thickness which has the appearance of a subcapsular hematoma. 4. Other findings as above. Results were verbally discussed via telephone conference with Dre Hernandez NP, on 01/31/2021 10: 0 7 PM CDT . The results were acknowledged and understood. Electronically signed by: Segun Burnette MD 01/31/2021 10:08 PM CDT Due to temporary technical issues with the PACS/Fluency reporting system, reports are being signed by the in house radiologist without review as a courtesy to ensure prompt reporting. The interpreting r adiologist is fully responsible for the content of the report.
== END 2021-02-01 00:42 | disposition short-term general hospital (02) ==
LOC: ER 17:56
PROC: 30233N1 Transfusion of Nonautologous Red Blood Cells into Peripheral Vein, Percutaneous Approach (ICD-10-PCS; principal; 2021-02-01)
DX: D73.5 Infarction of spleen (principal); K74.60 Unspecified cirrhosis of liver; I10 Essential (primary) hypertension; Z20.822 Contact with and (suspected) exposure to COVID-19
CPT/HCPCS: 93005; 85025; 80048; 36415; 86900; 83735; 86850; 85610; 86901; 80076; 84484; 83880; 74177; 71045; 36430; U0003; Q9967; J1200; J2354 ×2; C9113 ×2; P9016 ×2; J7050; J7040; J1720; 99285; Q0163

== ENCOUNTER 2021-02-22 06:58 | Emergency (ER) | payer OTHER ==
--- OUTSIDE RECORDS SUMMARY | 2021-02-22 07:02 | XMS REPORT | Continuity of Care Document ---
:1960 Author Organization [facility] t Address [address] [place] [address] Care Team Providers Name Role Phone MOLENA Primary Care Physician Unavailable Manisha Kim MD Attending Clinician Doctor Unassigned, Name Attending Clinician Unavailable Jaren SALEH, L Attending Clinician Unavailable Cassidy WOOTEN, P Attending Clinician Joaquin Cardoso MD Attending Clinician Huang WOOTEN, G Attending Clinician Jason WOOTEN, L Attending Clinician Dino Beach Attending Clinician OKPALA Attending Clinician Unavailable CZAP Attending Clinician Unavailable Bee Duncan Attending Clinician Cassidy WOOTEN, P Admitting Clinician Jennifer Admitting Clinician Problems Condition Condition Condition Status Onset Resolution Last Treating Co mments Source Name Details Category Date Date Treatment Clinician Date Confusion Confusion Disease Active Tarik ris 05-23 Health 00:00: 00 Cerebral Cerebral Disease Active Harri s microvascu microvascu He alth lar lar disease disease History of History of Problem Active U [...] y of on on [place] Phys[facility] ans Allergies, Adverse Reactions, Alerts This patient has no known allergies or adverse reactions. Social History Social Habit Start Date Stop Date Quantity Comments Source Sex Assigned At [facility] alth Cigarettes smoked 2018-05-23 2018-05-23 [facility] current (pack per 00:00:00 00:00:00 day) - Reported Alcohol intake 2018-05-23 2018-05-23 Current drinker [facility] 00:00:00 00:00:00 of alcohol (finding) Alcohol Comment 2018-05-23 2018-05-23 quit [facility]th 00:00:00 00:00:00 Smoking Status Start Date Stop Date Source Former smoker [facility] Physicians Current every day smoker 2018-05-23 00:00:00 [facility] Medications Ordered Filled Start Stop Current Ordering Indication Dosage Frequency Signature Comments Components Source Medication Medication Date Date Medication? Clinician (SIG) Name Name Shahriar Pradotati Yes Dianelys [address] [facility] n Calcium n Calcium 7-24 [facility] in evening [facility] Clopidogrel Clopidogrel Yes Dianelys [address] [facility] Bisulfate Bisulfate 7-24 [facility] 00 [facility] Lisinopril Lisinopril Yes Dianelys [address] [facility] 7-24 [facility] 00 [facility] amLODIPine amLODIPine Yes YANELI TAKE 1 Univers [...] Tablet Tablet 00 Physici ans Clopidogrel Clopidogrel 2017- Yes YANELI QD TAKE 1 Univers Bisulfate Bisulfate 9-10 SAMUEL M.D. TABLET BY ity of 75 MG Oral 75 MG Oral 00:00: MOUTH [place] Tablet Tablet 00 EVERY DAY Physic i ans Lisinopril Lisinopril 2018- Yes YANELI 1 QD TAKE 1 Univers 20 MG Oral 20 MG Oral 9-10 SAMUEL M.D. TABLET ity of Tablet Tablet 00:00: DAILY [place] 00 Physici ans Amlodipine Amlodipine Yes Dianelys [address] [facility] Besylate Besylate Millender Florecita kes - [facility] ent Clinics Lasix Lasix Yes Dianelys [address] [facility] Spironolact Spironolact 2019- No Dianelys [address] [facility] one one 11-24 [facility]ender [facility] Vital Signs Vital Name Observation Time Observation Value Comments Source BP Systolic 2018-07-21 150 mm[Hg] Location: [facility] 10:50:00 Position: [place] [facility] s Sitting BP Diastolic 2018-07-21 83 mm[Hg] Location: [facility] 10:50:00 Position: [place] Physician s Sitting Height 2018-07-21 67 [in_us] [facility] 10:50:00 [place] Physician s Weight 2018-07-21 184 [lb_av] [facility] 10:50:00 [place] [facility] s Body Mass Index 2018-07-21 28.82 kg/m2 University o f Calculated 10:50:00 [place] [facility] s Heart Rate 2018-07-21 55 /min Location: R [facility] 10:50:00 Brachial [place] [facility] Artery; Procedures Procedure Date / Time Performed Performing Clinician [facility] e CT Head/Neck CTA 2018-07-21 00:00:00 [facility] [id number] Physicians Plan of Care Planned Activity Planned Date Details Comments Source Future Scheduled Test 2021-08-11 00:00:00 IMM Influenza [facility] Seasonal Aug to January (>/= 19 yrs) [code = IMM Influenza Seasonal Aug to January (>/= 19 yrs)] Future Scheduled Test 2008 00:00:00 Screening for [facility] malignant neoplasm of colon (procedure) [code = 213443675] Future Scheduled Test 1974 00:00:00 COVID-19 Vaccine (1) [facility] [code = COVID-19 Vaccine (1)] Encounters Start End Encounter Admission Attending Care Care Encounter Source Date/Time Date/Time Type Type Clinicians Facility Department ID 2017-10-08 Inpatient C [facility] [id number] Medical 07:14:00 [facility] 2017-08-29 Inpatient [facility] MED [id number] Medical 13:35:00 [facility] 2017-07-03 Inpatient C [facility] [id number] Medical 15:05:00 [facility] 2021-02-21 2021-02-21 Telephone MOODY Kim [id number] 00:00:00 00:00:00 [place] MULTISPEC [id number] Manisha PAYAN 4.2.7.2.686 [facility] [id number] [facility] 2021-02-15 2021-02-15 Orders Doctor HENRRY [id number] 00:00:00 00:00:00 Only Unassigned, SHIRA [id number] [place] [facility] [id number] 2021-02-07 2021-02-07 Transition Vaughn Eastman [id number] 00:00:00 00:00:00 of Care Frida Collins [id number] [place] [id number] 2021-02-01 2021-02-04 Hospital Stan Benjamin [id number] 02:18:00 17:45:00 Encounter Brian Cardoso 350.1 .[id number] [facility] [id number] 2021-02-01 2021-02-01 Anesthesia MOODY [facility] [id number] 14:44:00 15:39:00 Event Kriss TEE [id number] [facility] 4.2.7.2.686 [facility] [id number] 2021-01-06 2021-01-06 [facility] [id number] [facility]00 [facility] ent [facility] 2021-01-06 2021-01-06 Orders Doctor HENRRY [id number] 00:00:00 00:00:00 Only Unassigned, SHIRA [id number] [facility] 4.2.7.2.686 [id number] 2021-01-06 2021-01-06 Telephone Gomez [facility] [id number] 00:00:00 00:00:00 [facility] [employer] [id number] Surgical 4.2.7.2.686 Specialti [id number] es [address] [place] 2020-12-21 2020-12-21 Orders Doctor HENRRY [id number] 00:00:00 00:00:00 Only Unassigned, SHIRA [id number] [facility] 4.2.7.2.686 [id number] 2020-12-16 2020-12-16 Prep For Gomez [facility] [id number] 00:00:00 00:00:00 Surgery Liam [employer] [id number] Surgical 4.2.7.2.686 Specialti [id number] es [address] [place] 2020-12-15 2020-12-15 Office Gomez [facility] [id number] 13:05:48 13:44:18 Visit Liam [employer] [id number] Surgical 4.2.7.2.686 Specialti [id number] es [address] [place] 2020-10-27 2020-10-27 [facility] [id number] [facility] 00[facility] 00[facility]00 [facility] ent [facility] 2020-08-27 2020-08-27 [facility] [id number] [facility] 2020-08-23 2020-08-23 Outpatient [facility] [id number] [facility] 2020-01-10 2020-01-10 [facility] [id number] 15:39:00 15:39:00 t [facility] Medicine Outpati ent Clinics 2020-01-08 2020-01-08 [facility] [id number] 14:30:00 14:30:00 t [facility] Medicine Outpati ent Clinics 2019-11-19 2019-11-19 [facility] [id number] 09:51:00 09:51:00 t [facility] Outpati ent Clinics 2019-09-09 2019-09-09 [facility] [id number] 13:40:00 13:40:00 t [facility] Medicine Outpati ent Clinics 2019-08-19 2019-08-19 [facility] [id number] 14:30:00 14:30:00 t [facility] Medicine Outpati ent Clinics 2019-08-11 2019-08-11 [facility] [id number] 11:44:00 11:44:00 t [facility] Medicine Outpati ent Clinics 2019-07-09 2019-07-09 [facility] [id number] 14:50:00 14:50:00 t [facility] Medicine Outpati ent Clinics 2019-07-02 2019-07-02 [facility] [id number] 08:51:00 08:51:00 t [facility] Medicine Outpati ent Clinics 2019-06-11 2019-06-11 [facility] [id number] 11:55:00 11:55:00 t Akvo Laveen [facility] Medicine Outpati ent Clinics 2019-06-08 2019-06-08 [facility] [id number] 14:00:00 14:00:00 [facility] Medicine Outpati [facility] Clinics 2019-06-03 2019-06-03 [facility] [id number] 10:15:00 10:15:00 [facility] Out[facility]i [facility] Clinics 2019-04-14 2019-04-14 Outpatient [facility] [id number] 14:30:00 14:30:00 Solitariocale Welsh 2019-03-11 2019-03-11 [facility] [id number] 10:50:00 10:50:00 [facility] Outpati [facility] Clinics 2019-03-05 2019-03-05 [facility] [id number] 13:30:00 13:30:00 [facility] Medicine Outpati ent Clinics 2018-12-23 2018-12-23 Appointmen MADDISON HATHAWAY [id number] Univers 14:00:00 14:00:00 t; CHANDRAKANT HATHAWAY, ALEXANDRA chand of [place], [place] [employer] Physici ans 2018-07-21 2018-07-21 Appointmen MADDISON CHOW Neurology [id number] Univers 11:00:00 11:00:00 t; RAJI CHOW it y of ALEXANDRA, M.D. [place] M.D. Physici ans 2018-07-04 2018-07-08 Outpatient Montezbeth [facility] [id number] 13:31:00 17:30:00 Bridgett Gamboa 2018-05-23 2018-05-23 Emergency [facility] [id number] Sky 20:46:01 20:46:01 Health 2018-05-23 2018-05-23 Emergency [facility] [id number] Sky 19:26:42 19:26:42 Health 2017-08-12 2017-08-12 Outpatient C [facility] [id number] Medical 09:26:00 09:26:00 [facility] 2017-06-13 2017-06-13 Outpatient C [facility] [id number] Medical 14:15:00 14:15:00 [facility] 2017-06-05 2017-06-05 Outpatient C [facility] MED [id number] Medical 09:33:00 09:33:00 [facility] 2017-03-19 2017-03-19 Outpatient C [facility] KIKA [id number] Medical 07:13:00 07:13:00 [facility] 2017-02-06 2017-02-06 Outpatient C [facility] KIKA [id number] Medical 07:43:00 07:43:00 [facility] 2017-01-08 2017-01-08 Outpatient C [facility] MED [id number] Medical 07:03:00 07:03:00 [facility] Results Test Description Test Time Test Comments Results Result Sourc e Comments SP ABD 2017-05-12 ULTRASOUND DIRECTED PARCENTESIS 6 PARACENTESIS:CLINICAL W/IMAGING 14:43:00 HISTORY: Ascites. Cirrhosis.Written and verbal consent were [...] of 4 L of fluid. US ABDOMEN 2017-05-12 ULTRASOUND ABDOMEN LIMITED-RIGHT 6 LIMITED:CLINICAL HISTORY: 14:41:12 Ascites. Images were obtained over a quadrants of the abdomen for evaluation forascites volume. There is a moderate to large volume ascites.IMPRESSION:1. Moderate volume ascites. SP ABD 0 Information: PARCENTESIS 9 AscitesUltrasound guided W/IMAGING 12:25:33 paracentesisFollowing verbal and written consent and utilizing [...] andsatisfactory conditionIMPRESSION:1. Ultrasound-guided paracentesis as described above. SP ABD 2017-01-10 Information: CirrhosisShunt PARCENTESIS 9 paracentesisFollowing W/IMAGING 11:52:16 verbal and written consent and utilizing ultrasound [...] satisfactory condition.IMPRESSION:1. Ultrasound-guided paracentesis as described above. US DUPX ART 2016-12-13 EXAM: Abdominal Sonography FLOW, ABD/PELV 8 with Hepatic LTD 11:44:42 Elastography.TECHNIQUE: Serial multiplanar grayscale imaging with/without Dopplerinterrogation including color flow imaging and Doppler waveformanalysis. Hepatic elastography measurements were made utilizing XRONet Epiq 7 ultrasound unit (C5-1 multifrequency transducer).HISTORY: [...] - 2.64+ Moderate - Severe US ABDOMEN 2016-12-13 EXAM: Abdominal Sonography COMPLETE 8 with Hepatic 11:19:24 Elastography.TECHNIQUE: Serial multiplanar grayscale imaging with/without Dopplerinterrogation including color flow imaging and Doppler waveformanalysis. Hepatic elastography measurements were made utilizing XRONet Epiq 7 ultrasound unit (C5-1 multifrequency transducer).HISTORY: [...] - 2.64+ Moderate - Severe SP ABD 2016-12-13 Information: PARCENTESIS 8 AscitesUltrasound guided W/IMAGING 10:03:19 paracentesisFollowing verbal and written consent and utilizing [...]
[2021-02-22] MEDS ORDERED: MORPHINE 4 MG/ML SYR ONE ×2 (07:40→09:34)
[2021-02-22] MEDS ORDERED: ONDANSETRON 4 MG/2 ML VIAL ONE ×2 (07:40→09:34)
[2021-02-22 08:04] LABS: Absolute Lymphocytes (CBC) 0.5 K/uL (0.7-4.9); Basophils % 0.7 % (0-1.3); Hematocrit 27.5 % (39.6-49.0); Lymphocytes % 9.3 % (15.3-44.8); MPV 8.8 fL (7.6-11.3); Protime INR 1.03; RBC Red Blood Cell Count 3.45 M/uL (4.33-5.43)
[2021-02-22 08:13] LABS: ALT/SGPT 33 U/L (12-78); AST/SGOT 54 U/L (15-37); Alkaline Phosphatase 107 U/L (45-117); BUN Blood Urea Nitrogen 16 mg/dL (7-18); Bicarbonate 23 mmol/L (21-32); Bilirubin Direct 0.1 mg/dL (0-0.2); Bilirubin Total 0.5 mg/dL (0.2-1.0); Glucose Level 170 mg/dL (74-106); NT PRO-BNP 325 pg/mL (<125); Potassium 4.2 mmol/L (3.5-5.1); Protein, Total 6.9 g/dL (6.4-8.2); Sodium Level 140 mmol/L (136-145); Troponin (Emerg Dept Use Only) < 0.02 ng/mL (0.0-0.045)
--- NOTE | 2021-02-22 08:18 | RAD REPORT ---
EXAM DESCRIPTION: RAD - Chest Single View - 02/22/2021 7:48 am CLINICAL HISTORY: abdominal pain COMPARISON: January 31 TECHNIQUE: AP portable chest image was obtained 02/22/2021 7:48 am . FINDINGS: Left lung field is clear. A small to moderate right pleural effusion has developed since p rior imaging. Right base atelectasis present. An acute right infiltrate is unlikely. Heart and vasculature are normal. No measurable pleural effusion and no pneumothorax. No acute bony abnormality seen. No acute aortic findings suspected. IMPRESSION: New right side small to moderate pleural effusion since prior imaging.
--- NOTE | 2021-02-22 08:56 | RAD REPORT ---
EXAM DESCRIPTION: CT - Angio Aorta For Dissection - 02/22/2021 8:34 am CLINICAL HISTORY: Abdominal pain COMPARISON: CT imaging January 31 TECHNIQUE: Dynamically enhanced 3 mm thick images of the chest, abdomen, and upper pelvis were obtai elma during administration of approximately 150mL Isovue 370 IV contrast. Sagittal and coronal reconst ruction images were generated using MIP and reviewed. Exam utilizes a protocol to evaluate entire cou rse of the aorta. All CT scans are performed using dose optimization technique as appropriate and may include automated exposure control or mA/KV adjustment according to patient size. FINDINGS: Aorta is normal in diameter with no dissection or other acute aortic findings. Reconstruct ion images show no significant findings. Left vertebral artery arises from the aortic arch is a rosalina l variant Pulmonary arteries are normal as well. No cardiomegaly, pericardial thickening or pericardial effusio n. Left lung field is clear. No mass or infiltrate of the right lung field. Moderate right pleural effus ion is present. Right lower lobe partial atelectasis changes are present. Configuration of the pleura l effusion would indicate at least some component of loculation. No pleural based mass. No pneumothor ax. No abnormal mediastinal or hilar mass or lymphadenopathy seen. No chest wall mass or abnormal axillar y lymphadenopathy. Celiac, SMA and renal arteries show no suspicious findings. Liver is mildly enlarged with a nodular liver capsule. No focal liver parenchymal lesions seen. No po rtal vein thrombus. Splenomegaly is present to 18 cm with no focal splenic lesions seen. Heterogeneou s attenuation of the splenic parenchyma is normal during dynamic arterial phase assessment. Thin marek cent-shaped collection along the lateral margin of the splenic capsule is again identified. This is p robably a chronic subcapsular hematoma. This does not appear to have enlarged since the January son. The spleen itself measure slightly larger than the January examination. No focal pancreatic abnormality identified. Gallbladder is contracted and appears to contain multiple gallstones. Gallbladder assessment is limited. Mild left-sided hydronephrosis is present secondary to a 3 millimeter distal ureter calculus near the UVJ. There is a 4 millimeter nonobstructing calculus in the lower pole of the left kidney. Left-side d perinephric stranding is present. Left kidney is slightly edematous relative to the right. There is probably some delayed function. This cannot be assessed on a single phase acquisition aortic dissect ion study. No urinary bladder abnormality. No prostate gland or seminal vesicle significant finding. No gastric dilatation or wall thickening. Wall thickening at the antrum is believed to be peristalsis artifact. Antritis or ulceration at the mucosal surface cannot be excluded. No dilation of the small bowel. Appendix is not clearly defined. No indirect evidence for appendicitis. Olson of the right-si de colon are mildly prominent but difficult to evaluate due to the lack of bowel content. Olson of th e distal descending colon and proximal sigmoid colon are prevent. Mild prominence of the distal recta l wall. Trace amount of ascites present. There is a mild stranding or edema appearance to the mesenteric fat. Small mesenteric lymph nodes are present. No mass or abnormal lymphadenopathy. No free air or pneum atosis. Fat only umbilical hernia is present similar to the comparison. IMPRESSION: Negative CT scan of the aorta. Mild left-sided hydronephrosis secondary to a 3 millimeter stone at the left UVJ.No left-sided pyelon ephritis or mass identifiable. Areas of colon bowel wall thickening are present difficult to evaluate due to the lack of intralumina l content. Mild colitis is possible. Wall edema may be secondary to cirrhotic liver changes. Appendix is not well visualized. Acute appendicitis is not suspected. Congestion and edema in the mesenteric fat compared to prior imaging. Splenomegaly is present to 18 cm appearing slightly increased in size since the January 31 comparison . This suspected subcapsular hematoma left lateral margin does not appear to have changed.
--- NOTE | 2021-02-22 10:16 | ER ---
Nurse's Notes [facility] Name: Blaise Renee Age: 60 yrs Sex: Male : 1960 Arrival Date: 02/22/2021 Time: 06:59 Bed 2 Private MD: Diagnosis: Abdominal and pelvic pain;Unspecified renal colic;Kidney stones - Left sided Presentation: 02/22 07:08 Chief complaint: EMS states: Reports left lower abd pain that radiates to the back, ea started last night. -. Coronavirus screen: At this time, the client does not indicate any symptoms associated with coronavirus-19. Ebola Screen: No symptoms or risks identified at this time. Initial Sepsis Screen: Does the patient meet any 2 criteria? No. Patient's initial sepsis screen is negative. Does the patient have a suspected source of infection? No. Patient's initial sepsis screen is negative. Risk Assessment: Do you want to hurt yourself or someone else? Patient reports no desire to harm self or others. Onset of symptoms was February 22, 2021. 07:08 Method Of Arrival: EMS: [facility] ea 07:08 Acuity: TRICIA 3 ea Historical: - Allergies: 07:12 No Known Allergies; ea - Home Meds: 07:12 Spironolactone Oral [Active]; lisinopril Oral [Active]; Lasix Oral [Active]; ea clopidogrel Oral [Active]; amlodipine oral [Active]; atorvastatin Oral [Active]; - PMHx: 07:12 Hypertension; Hepatitis; Cirrhosis; ea - Immunization history:: Adult Immunizations up to date. - Social history:: Smoking status: Patient denies any tobacco usage or history of. Screenin:11 Abuse screen: Denies threats or abuse. Nutritional screening: No deficits noted. ea Tuberculosis screening: No symptoms or risk factors identified. Fall Risk None identified. 07:26 Abuse screen: Denies threats or abuse. Denies injuries from another. Nutritional ld1 screening: No deficits noted. Tuberculosis screening: No symptoms or risk factors identified. Fall Risk IV access (20 points). Total Thompson Fall Scale indicates No Risk (0-24 pts). Assessment: 07:26 General: Appears in no apparent distress. uncomfortable, Behavior is calm, cooperative, ld1 appropriate for age. Pain: Complains of pain in left low back Pain radiates to left low back Pain currently is 10 out of 10 on a pain scale. Quality of pain is described as burning, throbbing, Pain began 2 hours ago. Is continuous. Neuro: Level of Consciousness is awake, alert, obeys commands, Oriented to person, place, time, situation. Cardiovascular: Capillary refill < 3 seconds Patient's skin is warm and dry. Respiratory: Airway is patent Respiratory effort is even, unlabored, Respiratory pattern is regular, symmetrical. GI: Abdomen is flat, non-distended, States that he woke up from his sleep with LLQ pain that radiates to his back, he has been nauseated since he woke up at 0430 and vomited this morning at 0500. Bowel sounds present X 4 quads. Abdomen is tender to palpation in left lower quadrant Reports lower abdominal pain. : No deficits noted. EENT: No deficits noted. Derm: No deficits noted. Musculoskeletal: No deficits noted. 07:26 Reassessment: Notified ERP of LLQ pain and BP of 196/93. See [facility] for orders. ld1 09:58 Reassessment: Patient appears in no apparent distress at this time. Patient and/or iw family updated on plan of care and expected duration. Pain level reassessed. Patient is alert, oriented x 3, equal unlabored respirations, skin warm/dry/pink. Patient states feeling better. Patient states symptoms have improved. Vital Signs: 07:08 BP 196 / 90; Pulse 80; Resp 18; Temp 99.6; Pulse Ox 98% ; Weight 76.2 kg; Height 5 ft. ea 8 in. (172.72 cm); Pain 8/10; 07:26 BP 196 / 93; Pulse 80; Resp 26; Temp 98.7; Pulse Ox 96% on R/A; Weight 81.65 kg; Height ld1 5 ft. 6 in. (167.64 cm); Pain 10/10; 08:26 BP 175 / 92; Pulse 95; Resp 26; Pulse Ox 96% ; iw 10:03 BP 169 / 88; Pulse 76; Resp 22; Pulse Ox 95% on R/A; ld1 07:26 Body Mass Index 29.05 (81.65 kg, 167.64 cm) ld1 ED Course: 06:59 Patient arrived in ED. ea 07:02 Darryl Luciano MD is Attending Physician. kdr 07:10 Triage completed. ea 07:11 Beba Hahn, RN is Primary Nurse. ld1 07:11 Arm band placed on right wrist. Patient placed in an exam room, on a stretcher, on ea pulse oximetry. 07:11 Patient has correct armband on for positive identification. Bed in low position. Call ea light in reach. Side rails up X2. 07:12 Inserted saline lock: 22 gauge in right antecubital area, using aseptic technique. ds4 Blood collected. 07:20 EKG done, by ED staff, reviewed by Darryl Luciano MD. mt 07:26 Patient has correct armband on for positive identification. Placed in gown. Bed in low ld1 position. Call light in reach. Side rails up X 1. track watchman on. Pulse ox on. NIBP on. Door closed. Noise minimized. Warm blanket given. 07:26 No provider procedures requiring assistance completed. ld1 07:47 XRAY Chest (1 view) In Process Unspecified. EDMS 08:34 CT Aorta for Dissection In Process Unspecified. EDMS 10:14 Mark Murray MD is Referral Physician. kdr 10:45 IV discontinued, bleeding controlled, No redness/swelling at site. ld1 Administered Medications: 07:40 Drug: morphine 4 mg Route: IVP; Site: right forearm; ld1 08:15 Follow up: Response: No adverse reaction ld1 07:40 Drug: Zofran (Ondansetron) 4 mg Route: IVP; Site: right forearm; ld1 08:15 Follow up: Response: No adverse reaction ld1 09:35 Drug: morphine 4 mg Route: IVP; Site: right antecubital; ld1 10:02 Follow up: Response: No adverse reaction ld1 09:35 Drug: Zofran (Ondansetron) 4 mg Route: IVP; Site: right antecubital; ld1 10:03 Follow up: Response: No adverse reaction ld1 09:55 Not Given (Patient Refused): [place] (HYDROcodone-acetaminophen) 10 mg-325 mg 1 tabs PO iw once; RASS on ADMIN: Combtv4, Very Agttd3, Agttd2, Rstlss1, AlertClm0, Drwsy-1, Lt Sdtn-2, Mod Sdtn-3, Dp Sdtn-4, UnArsble-5 10:20 Drug: [place] (HYDROcodone-acetaminophen) 10 mg-325 mg 1 tabs Route: PO; ld1 10:46 Follow up: Response: No adverse reaction ld1 Outcome: 10:15 Discharge ordered by . kdr 10:44 Discharged to home via wheelchair, with family. ld1 10:44 Condition: stable 10:44 Discharge instructions given to patient, family, Instructed on discharge instructions, follow up and referral plans. medication usage, Demonstrated understanding of instructions, follow-up care, medications. 11:11 Patient left the ED. iw Signatures: Dispatcher [employer] EDMS Darryl Luciano MD MD kdr Williams, Irene, RN RN Hunter Kilgore ds4 Angelica Soriano mt, Elena RN Beba Malin ea, RN RN ld1 Corrections: (The following items were deleted from the chart) 08:47 08:26 BP 175 / 92; iw iw 10:02 10:01 BP 120 / 74; Pulse 70bpm; Resp 18bpm; Pulse Ox 100% RA; Pain 0/10; ld1 ld1
--- NOTE | 2021-02-22 10:16 | EDPHYS ---
Physician Documentation [facility] Name: Blaise Renee Age: 60 yrs Sex: Male : 1960 Arrival Date: 02/22/2021 Time: 06:59 Bed 2 Private MD: ED Physician Darryl Luciano HPI: 02/22 17:49 This 60 yrs old Male presents to ER via EMS with complaints of left abdominal kdr pain. 17:49 The patient presents with abdominal pain left lateral from umbilicus. Onset: The kdr symptoms/episode began/occurred this morning. The symptoms do not radiate. Associated signs and symptoms: Pertinent positives: nausea. The symptoms are described as achy, crampy, sharp, vague, waxing/waning. Modifying factors: The symptoms are alleviated by nothing, the symptoms are aggravated by nothing. touching the area. Severity of pain: At its worst the pain was moderate severe just prior to arrival, in the emergency department the pain has improved mildly. The patient has not experienced similar symptoms in the past. The patient has not recently seen a physician. Historical: - Allergies: 07:12 No Known Allergies; ea - Home Meds: 07:12 Spironolactone Oral [Active]; lisinopril Oral [Active]; Lasix Oral [Active]; ea clopidogrel Oral [Active]; amlodipine oral [Active]; atorvastatin Oral [Active]; - PMHx: 07:12 Hypertension; Hepatitis; Cirrhosis; ea - Immunization history:: Adult Immunizations up to date. - Social history:: Smoking status: Patient denies any tobacco usage or history of. ROS: 17:49 Constitutional: Negative for fever, chills, and weight loss, Eyes: Negative for injury, kdr pain, redness, and discharge, ENT: Negative for injury, pain, and discharge, Neck: Negative for injury, pain, and swelling, Cardiovascular: Negative for chest pain, palpitations, and edema, Respiratory: Negative for shortness of breath, cough, wheezing, and pleuritic chest pain, Back: Negative for injury and pain, : Negative for injury, bleeding, discharge, and swelling, MS/Extremity: Negative for injury and deformity, Skin: Negative for injury, rash, and discoloration, Neuro: Negative for headache, weakness, numbness, tingling, and seizure activity. Psych: Negative for depression, anxiety, suicide ideation, homicidal ideation, and hallucinations, Allergy/Immunology: Negative for hives, rash, and allergies, Endocrine: Negative for neck swelling, polydipsia, polyuria, polyphagia, and marked weight changes, Hematologic/Lymphatic: Negative for swollen nodes, abnormal bleeding, and unusual bruising. 17:49 Abdomen/GI: Positive for Exam: 10:00 ECG was reviewed by the Attending Physician. kdr Vital Signs: 07:08 BP 196 / 90; Pulse 80; Resp 18; Temp 99.6; Pulse Ox 98% ; Weight 76.2 kg; Height 5 ft. ea 8 in. (172.72 cm); Pain 8/10; 07:26 BP 196 / 93; Pulse 80; Resp 26; Temp 98.7; Pulse Ox 96% on R/A; Weight 81.65 kg; Height ld1 5 ft. 6 in. (167.64 cm); Pain 10/10; 08:26 BP 175 / 92; Pulse 95; Resp 26; Pulse Ox 96% ; iw 10:03 BP 169 / 88; Pulse 76; Resp 22; Pulse Ox 95% on R/A; ld1 07:26 Body Mass Index 29.05 (81.65 kg, 167.64 cm) ld1 MDM: 10:15 Patient medically screened. [facility] 02/22 07:03 Order name: Basic Metabolic Panel [facility] 02/22 07:03 Order name: CBC with Diff [facility] 02/22 07:03 Order name: LFT's [facility] 02/22 07:03 Order name: Magnesium [facility] 02/22 07:03 Order name: NT PRO-BNP [facility] 02/22 07:03 Order name: PT-INR; Complete Time: 08:50 [facility] 02/22 07:03 Order name: Troponin (emerg Dept Use Only); Complete Time: 08:50 [facility] 02/22 07:03 Order name: XRAY Chest (1 view); Complete Time: 08:50 [facility] 02/22 07:03 Order name: Basic Metabolic Panel; Complete Time: 08:50 EDMS 02/22 07:03 Order name: CBC with Automated Diff; Complete Time: 08:50 EDMS 02/22 07:03 Order name: Liver (Hepatic) Function; Complete Time: 08:50 EDMS 02/22 07:03 Order name: Magnesium; Complete Time: 08:50 EDMS 02/22 07:04 Order name: NT PRO-BNP; Complete Time: 08:50 EDMS 02/22 07:18 Order name: CT Aorta for Dissection; Complete Time: 09:40 kdr 02/22 07:03 Order name: EKG; Complete Time: 07:04 kdr 02/22 07:03 Order name: Cardiac monitoring; Complete Time: 07:18 kdr 02/22 07:03 Order name: EKG - Nurse/Tech; Complete Time: 07:18 kdr 02/22 07:03 Order name: IV Saline Lock; Complete Time: 07:18 kdr 02/22 07:03 Order name: Labs collected and sent; Complete Time: 07:18 kdr 02/22 07:03 Order name: O2 Per Protocol; Complete Time: 07: kdr 02/22 07:03 Order name: O2 Sat Monitoring; Complete Time: 07:19 kdr EC:00 Rate is 81 beats/min. Rhythm is regular, Sinus Rhythm with No ectopy. Left axis kdr deviation noted. ME interval is normal. QRS interval is normal. QT interval is normal. T waves are Normal. Clinical impression: NSR w/ Non-specific ST/T Changes. Administered Medications: 07:40 Drug: morphine 4 mg Route: IVP; Site: right forearm; ld1 08:15 Follow up: Response: No adverse reaction ld1 07:40 Drug: Zofran (Ondansetron) 4 mg Route: IVP; Site: right forearm; ld1 08:15 Follow up: Response: No adverse reaction ld1 09:35 Drug: morphine 4 mg Route: IVP; Site: right antecubital; ld1 10:02 Follow up: Response: No adverse reaction ld1 09:35 Drug: Zofran (Ondansetron) 4 mg Route: IVP; Site: right antecubital; ld1 10:03 Follow up: Response: No adverse reaction ld1 09:55 Not Given (Patient Refused): [place] (HYDROcodone-acetaminophen) 10 mg-325 mg 1 tabs PO iw once; RASS on ADMIN: Combtv4, Very Agttd3, Agttd2, Rstlss1, AlertClm0, Drwsy-1, Lt Sdtn-2, Mod Sdtn-3, Dp Sdtn-4, UnArsble-5 10:20 Drug: [place] (HYDROcodone-acetaminophen) 10 mg-325 mg 1 tabs Route: PO; ld1 10:46 Follow up: Response: No adverse reaction ld1 Disposition: 02/22/21 10:15 Discharged to Home. Impression: Abdominal and pelvic pain, Unspecified renal colic, Kidney stones - Left sided. - Condition is Stable. - Discharge Instructions: Renal Colic, Vryd-vs-Dapm, Kidney Stones, [id number], Abdominal Pain, Adult, [id number]. - Prescriptions for Zofran 4 mg Oral Tablet - take 1 tablet by ORAL route every 4-6 hours As needed; 12 tablet. Flomax 0.4 mg Oral Capsule, Sust. Release 24 hr - take 1 capsule by ORAL route once daily 1/2 hour following the same meal each day; 10 capsule. Tramadol 50 mg Oral Tablet - take 1 tablet by ORAL route every 4-6 hours As needed as needed; 12 tablet. Bactrim DS 800- 160 mg Oral Tablet - take 1 tablet by ORAL route every 12 hours for 3 days; 6 tablet. - Medication Reconciliation Form, Thank You Letter, Antibiotic Education, Prescription Opioid Use form. - Follow up: Private Physician; When: 2 - 3 days; Reason: If symptoms return, Further diagnostic work-up, Recheck today's complaints, Continuance of care, Re-evaluation by your physician. Follow up: Mark Murray MD; When: 2 - 3 days; Reason: If symptoms return, Further diagnostic work-up, Recheck today's complaints, Continuance of care, Re-evaluation by your physician. - Problem is new. - Symptoms have improved. Addendum: 03/13/2021 08:48 Addendum: CC: Left lower abdominal pain that radiates to his back, HPI: The patient k states that he has left lower abdominal pain that began last night. He has not had this before and has no other local or global c/o. ROS: 10 point ROS all negative except for LLQ abdominal pain, EXAM: No change in bowel or bladder habits. Pain mild with no rebound, BS normal in LLQ, Chest: normal, Card: RRR nl S1,2, Lungs: CTAB, nl BS, MDM: DDx: bowel perf, diverticulitis, obstruction, kidney stones, The patient was happy with the care provided and the plan for discharge and follow-up. Signatures: Dispatcher [employer] Darryl Mccormick MD MD kdr Williams, Irene, RN RN Anastacia Parker RN RN ea Dibbern, Lauren, THERESE RN ld1 Corrections: (The following items were deleted from the chart) 02/22 11:11 10:15 02/22/2021 10:15 Discharged to Home. Impression: Abdominal and pelvic pain; iw Unspecified renal colic; Kidney stones - Left sided. Condition is Stable. Forms are Medication Reconciliation Form, Thank You Letter, Antibiotic Education, Prescription Opioid Use. Follow up: Private Physician; When: 2 - 3 days; Reason: If symptoms return, Further diagnostic work-up, Recheck today's complaints, Continuance of care, Re-evaluation by your physician. Follow up: Mark Murray; When: 2 - 3 days; Reason: If symptoms return, Further diagnostic work-up, Recheck today's complaints, Continuance of care, Re-evaluation by your physician. Problem is new. Symptoms have improved. kdr
[2021-02-22] MEDS ORDERED: HYDROCODONE/APAP 10/325 TAB ONE (10:40)
[2021-02-22 11:20] VITALS: TEMP 98.7
[2021-02-22 11:22] VITALS: BP 169/88; O2SAT 95
--- NOTE | 2021-02-23 07:38 | EKG ---
Test Date: 2021-02-22 Test Time: 07:17:11 Wine Manager: FUNMI MEASUREMENT RESULTS: Intervals: Rate: 81 MA: 146 QRSD: 82 QT: 390 QTc: 453 [place]: P: 63 MA: 146 QRS: -28 T: 33 INTERPRETIVE STATEMENTS: Sinus rhythm with premature atrial complexes Voltage criteria for left ventricular hypertrophy Abnormal ECG Compared to ECG 01/31/2021 18:31:20 Atrial premature complex(es) now present Left ventricular hypertrophy now present Electronically Signed On 02-23-21 07:34:54 CDT by Sam Dyer
== END 2021-02-22 11:11 | disposition home or self-care (01) ==
LOC: ER 06:58
DX: N20.0 Calculus of kidney (principal); N23 Unspecified renal colic; I10 Essential (primary) hypertension
CPT/HCPCS: 85025; 80048; 36415; 83735; 85610; 80076; 84484; 83880; 71275; 74175; 71045; Q9967; J2405 ×2; 93005; 99285

== ENCOUNTER 2021-07-13 22:54 | Emergency (ER) | payer OTHER ==
--- OUTSIDE RECORDS SUMMARY | 2021-07-13 23:03 | XMS REPORT | Continuity of Care Document ---
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 [facility] 19:30:00 19:30:00 Pre-Reg r Neurology 00 l [place] 2019-04-14 2019-04-14 [facility] [place] [place] [id number] 14:30:00 14:30:00 Solitario Lyndsay Dino 2019-03-11 2019-03-11 [place] [facility] [id number] [facility] 10:50:00 10:50:00 t [facility] Family [facility] Medicine Outpati ent [facility] 2019-03-05 2019-03-05 [facility] [id number] 13:30:00 13:30:00 t [facility] Medicine Outpati ent [facility] 2018-12-23 2018-12-23 Appointmen MADDISON HATHAWAY [id number] Univers 14:00:00 14:00:00 t; CHANDRAKANT HATHAWAY, ALEXANDRA ity [place], [place] [employer]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 [place] [facility] 2018-07-04 2018-07-08 [facility] [id number] [facility] 18:31:00 22:30:00 r [place] 36 [facility] 2018-07-04 2018-07-08 Inpatient [facility] [id number] [facility] 18:31:00 22:30:00 r [place] 36 [facility] 2018-07-04 2018-07-08 Outpatient [place] [facility] [id number] 13:31:00 17:30:00 Anjoshua Gamboa 2018-05-23 2018-05-23 Emergency [facility] [id number] Sky 20:46:01 20:46:01 Health 2018-05-23 2018-05-23 Emergency [facility] [id number] Sky 19:26:42 19:26:42 Health 2017-08-12 2017-08-12 Outpatient C MCSETX MCSETX [id number] Medical 09:26:00 09:26:00 [facility] 2017-06-13 2017-06-13 Outpatient C MCSETX MCSETX [id number] Medical 14:15:00 14:15:00 [facility] 2017-06-05 2017-06-05 Outpatient C MCSETX MED [id number] Medical 09:33:00 09:33:00 [facility] 2017-03-19 2017-03-19 Outpatient C MCSETX KIKA [id number] Medical 07:13:00 07:13:00 [facility] 2017-02-06 2017-02-06 Outpatient C MCSETX KIKA [id number] Medical 07:43:00 07:43:00 [facility] 2017-01-08 2017-01-08 Outpatient C MCSETX MED [id number] Medical 07:03:00 07:03:00 [facility] Results Test Description Test Time Test Comments Results Result Comments Source C REACTIVE PROTEIN 2021-06-20 20:56:00 Test Item Value Reference Range Interpretation Comme nts C REACTIVE PROTEIN (test code = CRP) < 0.2 mg/dL <0.9 AB HIV 20:56:00 Test Item Value Reference Range Interpretation Comments AB HIV 1 (test code NONREACTIVE NONREACTIVE Done by Accertifyaur = HIV1AB) 4th Gen HIV Ag/ Ab Combo Screen AB HIV 1 20:56:00 Test Item Value Reference Range Interpretation Comments AB HIV 1 2 (test NONREACTIVE NONREACTIVE Done by MeMeMeaur code = SKU86AP) 4th Gen HIV Ag/Ab Combo Screen COMPREHENSIVE METABOLIC [id number] 19:23:00 Test Item Value Reference Range Interpretation [...] RATE (test code = GFR) mL/mi n/1.73 k5Jkthmywip Range:Healthy Adults >90 mL/min/1.73 m2 For Chronic [...] N TOTAL (test code = ALKP) PROTHROMBIN [id number] 19:15:00 Test Item Value Reference Range Interpretation [...] PT every other day N THROMBOPLASTIN TIME [id number] 19:15:00 Test Item Value Reference Range Interpretation Comments PTT ACTIVATED (test code = APTT) 31.0 secs 24.9-37.0 N IS PATIENT ON ANTICOAGULANTS ? YLIST ANTICOAGULANT/ANTI PLT MEDICATION : Clopidogrel (Anti-PLT)Has Lab been notified if Patient is on Heparin Drip? NOIf Yes, order CBC, OCCULT BLOOD, PT every other day NC REACTIVE [id number] 19:14:00 Test Item Value Reference Range Interpretation Comments C REACTIVE PROTEIN (test code = < 0.2 mg/dL <0.9 CRP) AB HIV 19:14:00 Test Item Value Reference Range Interpretation Comments AB HIV 1 (test code = HIV1AB) NONREACTIVE CBC W/AUTO [id number] 18:55:00 Test Item Value Reference Range Interpretation [...] % 0-0 N code = NRBC) SED [id number] 18:55:00 Test Item Value Reference Range Interpretation Comments SED RATE (test code = SEDW) 82 mm/hr 0-15 H CBC W/AUTO [id number] 17:28:00 Test Item Value Reference Range Interpretation [...] % 0-0 N code = NRBC) SED [id number] 17:28:00 Test Item Value Reference Range Interpretation Comments SED RATE (test code = SEDW) mm/hr 0-15 - CT LOWER EXTRM W/O C [id number] 17:04:00 [facility] 1960 Sex: M Patient Name: DINO CARDOZA Unit No: [id number] EXAMS: CPT CODE: [id number] [place] L[place]TR[place] W/[place] [address] [place] SCAN RIGHT HIP AND PROXIMAL FEMUR [...] accordance with ACR practice standards and adherenceto vp product management's recommendations. INDICATION: M25.551 COMPARISON: None. IMPRESSION: Findings are as described above. El ectronically Signed by Marck Hughes MD on 06/12/2021 at 1704 Reported and signed by: Marck Hughes MD CC: Wilber Allen MD Technologist: RT Viraj(R) CTDI: DLP: Trnscrpt: 06/12/2021 ([id number]) [email or web address] [facility] NAME: DINO CARDOZA [address] [facility] PHYS: BRIMA. - Wilber Allen MD : 1960 AGE: 60 SEX: M [place] [address] LOC: Y.CTS PHONE #: [phone] EXAM DATE: 06/12/2021 STATUS: REG CLI FAX #: [phone] RAD #: D/C DT PAGE 1 Signed Report Patient Name: DINO CARDOZAUnit No: [id number] EXAMS: CPT CODE: [id number] CT LOWER EXTRM W/[place] [address] <Continued> Orig Print D/T: S: 06/12/2021 (5013) [facility] NAME: DINO CARDOZA [address] [facility] PHYS: BRIMA. - Wilber Allen MD : 1960 AGE:60 SEX: M [place] [address] LOC: Y.CTS PHONE #: [phone] EXAM DATE: 06/12/2021 STATUS: REG CLI FAX #: [phone] RAD #: D/C DT PAGE 2 Signed ReportCHEM [id number] 08:36:002.3[facility] HermannCHEM SXRCO8764-75-28 08:36:003.8[facility] HermannCHEM DXQDK5822-59-30 08:36:84584Jgxciihh HermannCHEM KNBNK2187-35-06 08:36:003.7[facility] HermannCHEM XFSAU6124-83-45 08:36:29587Cvfkyhef HermannCHEM FRSNC2545-70-47 08:36:000.65 [facility] HermannCHEM THTHH5207-64-21 08:36:49134Fpaudmna HermannCHEM PANEL 2018-07-08 08:36:008.1[facility] HermannCHEM RPTNZ3840-31-36 08:36:0024[facility] HermannCHEM QGQKX1289-42-83 08:36:0012[facility] HermannCHEM PHGCH1149-84-06 08:36:41307Hgfknuyl HermannCHEM QLGIE4227-40-32 08:36:0011.7[facility] JJTEFMGKNF9030-21-88 08:36:000.1[facility] LrafoarDJQNYIYSRL0206-04-60 08:36:000.2 Memorial FkfjsvvDDRSIBPDEQ1948-21-89 08:36:000.5[facility] HermannHEMATOLOGY 2018-07-08 08:36:001.4[facility] EeqzeqiAKNDMKZYAX8766-29-46 08:36:004.3[facility] PhztofaZMHUKEAJNQ7418-22-34 08:36:007.7[facility] CiszsccYDWOSRUSPA5569-29-02 08:36:0021.2[facility] RhpliqdFZNQFUSILR9815-16-91 08:36:002.4[facility] [place] UBIOWJPEKS5552-23-97 08:36:001.3[facility] TbesikiXRDQQUADYW8461-61-30 08:36:00 67.4[facility] XnmyusuLQQMQZXKMP3129-89-69 08:36:0041.7[facility] HermannHEMATOLOGY 2018-07-08 08:36:0091.7[facility] ZnhurjpCKKELFPBUW4889-95-73 08:36:006.4[facility] FgdcujzRBPWKJWLWW1146-73-75 08:36:0035.6[facility] VhgjjroREALQDJWIQ9213-95-94 08:36:004.54[facility] IbyqugzWFNFOTGSZO3259-60-91 08:36:0014.8[facility] ZXMEAIBBZU0933-45-64 08:36:008.1[facility] SssihcuLDRIXPQZCC0373-78-96 08:36:82126 Memorial DxkewmaPGECVVUWCS6677-80-66 08:36:0013.9[facility] HermannHEMATOLOGY 2018-07-08 08:36:00 Test Item Value Reference Range Interpretation Comments MCH (test code = MCH) 32.6 pg 27.0-31.0 [facility] HermannPARATHYROID XGLWEPM9517-58-07 08:36:001.08[facility] PARATHYROID BAURXBZ6552-37-24 08:36:001.10[facility] HermannCHEM EPMQB2899-10-40 08:36:002.3[facility] HermannCHEM QKQKT2347-54-01 08:36:003.8[facility] HermannCHEM DREUL1567-98-18 08:36:40940Inflcshm HermannCHEM JEQIS4025-57-37 08:36:003.7 [facility] HermannCHEM YNAGQ9648-34-74 08:36:50346Tukxiywv HermannCHEM PANEL 2018-07-08 08:36:000.65[facility] HermannCHEM DAQWV7721-76-53 08:36:42893Bribmqoq HermannCHEM DQXUK9185-16-12 08:36:008.1[facility] HermannCHEM CFBAO8651-22-10 08:36:0024[facility] HermannCHEM RDVOO1022-33-13 08:36:0012[facility] HermannCHEM SSDLS5206-76-77 08:36:04291Sljpbxxf HermannCHEM KHKBD3938-19-73 08:36:0011.7 Memorial WztwuujIISQFUSCRA3756-53-19 08:36:000.1[facility] HermannHEMATOLOGY 2018-07-08 08:36:000.2[facility] BsjlxbwMOIRZYVAKQ3036-82-79 08:36:000.5[facility] SifpsogXJXAUQWNFJ1115-25-27 08:36:001.4[facility] SidtdqbBYOVNSKDPH7902-84-17 08:36:004.3[facility] AlgcygpIYCQXBLXYK4740-30-62 08:36:007.7[facility] [place] RNSFSPDEMX6778-82-47 08:36:0021.2[facility] VdhnabrMDDGUNAUEM9271-92-32 08:36:00 2.4[facility] XhxldplKYYILYMEVP7554-45-33 08:36:001.3[facility] HermannHEMATOLOGY 2018-07-08 08:36:0067.4[facility] LmghoaqTSILQCDHRL6010-28-60 08:36:0041.7[facility] JovhvfxUVBLPXZOGY6731-55-03 08:36:0091.7[facility] VqhquiyZLBHIUMAQX9737-70-19 08:36:006.4[facility] XauoernOWYPQVOITH6962-28-95 08:36:0035.6[facility] QFOEEZKPOC9974-64-21 08:36:004.54[facility] JjtyoeeXVMHLIDTQI8580-10-05 08:36:00 14.8[facility] HqyiribXMRTATIXJC3680-20-46 08:36:008.1[facility] HermannHEMATOLOGY 2018-07-08 08:36:58420Jugkwccc EuvfaopNZNMOWWXLS0160-66-36 08:36:0013.9[facility] KneigyjOAENVIWDDU8571-89-31 08:36:00 Test Item Value Reference Range Interpretation Comments MCH (test code = MCH) 32.6 pg 27.0-31.0 [facility] HermannPARATHYROID JFRDNMV3951-99-27 08:36:001.08[facility] PARATHYROID UUQAFTU8395-37-04 08:36:001.10[facility] QvuxqfbQUGCLPKJUDTN2798-94-02 05:01:42606Cjhmvqal YtmhshpPMIDQOQVXFOR2462-30-75 05:01:0097[facility] FOYJRYDIFMQY1519-55-13 05:01:000.82[facility] HcstdziMPAZLDGNZXLH9452-16-40 05:01:0022[facility] YttkamqMUGHFBJFBXBX2242-16-42 05:01:008.0[facility] PSSDOYUDWB4103-22-30 05:01:0023.2[facility] JruuoaxDLABMZTWDF4832-35-46 05:01:00 64.9[facility]orial OxbjtvdBODDYFXNLL4596-01-82 05:01:000.2[facility] HermannHEMATOLOGY 2018-07-07 05:01:000.1[facility] XmznzrwFVWZKDMAEJ9872-10-39 05:01:001.3[facility] BtmgeizFLIFMQCXYR5194-58-66 05:01:004.0[facility] KgcvwnxEPKORMGBNZ1749-77-00 05:01:008.0[facility] HqilyjmPQYRLQAJCB6056-15-18 05:01:002.6[facility] [place] WEEXNTBSLX1413-73-55 05:01:001.4[facility] LhnrulyNDDCYPYWTB6246-84-69 05:01:000.5 [facility] CenterLjphgqiBOVITDSIJD8686-37-57 05:01:90832Ormnbrfz HermannHEMATOLOGY 2018-07-07 05:01:008.3[facility] CenterMtzrousUOQMQHZBSK0383-59-20 05:01:0014.2[facility] HospitalXvmwjlwHJUWHDHRYU4454-35-78 05:01:0093.2[facility] [place] [facility] HospitalFiyzdzfUVIDRAXPYB9451-98-59 05:01:00 Test Item Value Reference Range Interpretation Comments MCH (test code = MCH) 32.3 pg 27.0-31.0 [facility] HospitalEobbwucCXVNBENXVT3665-05-87 05:01:0014.6[facility] [place] [facility]HE[facility] 2018-07-07 05:01:0042.2MW[facility] Medical CenterJavydjxJHBGZWVFPB6884-26-35 05:01:0034.7[facility] CampusCqryhgxCRJGWPVDJX6932-24-09 05:01:004.53[facility] CampusYtagkndXTDGXLZSLJ4181-35-86 05:01:006.1[facility] [place] [facility] HospitalGpqtmfrAPDPBTFVCM4819-79-50 05:01:00 Test Item Value Reference Range Interpretation Comments PT (test code = PT) 12.3 s 12.0-14.7 [facility] HospitalUvqjklxDJFDTHPFJW8391-73-94 05:01:00 Test Item Value Reference Range Interpretation Comments PTT (test code = PTT) 26.7 s 22.9-35.8 [facility] HospitalRauqzpuMLQUQPNPIZ7090-53-03 05:01:00 Test Item Value Reference Range Interpretation Comments INR (test code = INR) 0.91 1 0.85-1.17 [facility] HospitalRpjtwarAXLOSHMSQS0424-05-22 05:01:003.2[facility] 2018-07-07 05:01:00 Test Item Value Reference Range Interpretation Comments Coag Index (test code 1.0 1 See_Comment [Auto mated message] The = Coag Index) system which g enerated this result transmit willow reference range : <=3.0. The reference range was not used to interpr et this result as rosalina l/abnormal. [facility] HospitalEgeipfcJHZNEAJSTI3830-87-18 05:01:00 Test Item Value Reference Range Interpretation Comments Max Amp (test code = Max Amp) 55.2 mm 50.0-70.0 [facility] MgucoveFBTDBFLWNU4873-85-06 05:01:006.2[facility] HermannHEMATOLOGY 2018-07-07 05:01:00 Test Item Value Reference Range Interpretation Comments R-time (test code = R-time) 3.8 min 5.0-10.0 [facility] HbfqwdxAMLHBGPOGU4475-74-57 05:01:00 Test Item Value Reference Range Interpretation Comments K-time (test code = K-time) 1.7 min 1.0-3.0 [facility] GmrrfyeVJXYPGDWHK1536-03-64 05:01:00 Test Item Value Reference Range Interpretation Comments Angle (test code = Angle) 67.9 degrees 53.0-72.0 [facility] BstsxqdPIJZARLLRO1193-75-65 05:01:00See Note (07/07/18 12:01 AM)[facility] HermannPARATHYROID FMOVSDY0508-52-23 05:01:001.06[facility] HermannPARATHYROID UJDICJD3646-47-41 05:01:001.07[facility]annBL[facility]OD BANK YPQEFSR1864-90-83 05:01:00Negative (07/07/18 12:01 AM)[facility] HermannCHEM RQNIR9160-95-78 05:01:00 2.6[facility] HermannCHEM RHKPB3901-22-59 05:01:002.2[facility] HermannELECTROLYTES 2018-07-07 05:01:0014.0[facility] BimefjvJJOXWFQMVCYT7481-10-32 05:01:0097[facility] TxfmzxiDSBCPQPEWCAO2960-87-88 05:01:004.0[facility] SxdejbwPEWENYBGCTWR2226-86-45 05:01:28273Ycohmdic UjbmdbuCYEVDSHGZJOD9028-10-72 05:01:0017[facility] YXYXKXRQIXJK4017-44-29 05:01:09927Kbpzqtuh VcxjvxnTYVPBGLGPZPC2555-74-14 05:01:0017[facility] FtkdrchUZVPNMJALFJI4634-99-09 05:01:81594Rhvfxwht [place] DYDWUCSQEFVY6045-35-59 05:01:0097[facility] SfuteexWYZKFYDNLDYB9666-36-64 05:01:00 0.82[facility] CzomptvHVDNSHIFKLHK2320-96-49 05:01:0022[facility] BHPNMVIVPVQL0897-73-24 05:01:008.0[facility] LccrshgNMAEUZMASY1724-32-96 05:01:00 23.2[facility] OlclxxmSECSDHXYVG9327-28-17 05:01:0064.9[facility] HermannHEMATOLOGY 2018-07-07 05:01:000.2[facility] FleivtnRIJLPIZTWJ0832-13-75 05:01:000.1[facility] DurqtofXIFWRHOUXA2587-44-88 05:01:001.3[facility] QbyvnnxUBKUBSXOZG6026-27-29 05:01:004.0[facility] UgypcupCVXIEJHFSN0633-37-66 05:01:008.0[facility] [place] OHOGBRAOMQ3935-98-05 05:01:002.6[facility] NoigrysPQSTSCYAFO3364-57-46 05:01:001.4 [facility] XlgqydtJKAHKAWEIY3347-94-48 05:01:000.5[facility] HermannHEMATOLOGY 2018-07-07 05:01:09826Dsenzwyh EwmjcdzJPRRJTMTVS4474-87-15 05:01:008.3[facility] IszzldrQNVTQUDCFP8655-30-51 05:01:0014.2[facility] BfaflkjXTYDPEDKIX4168-57-31 05:01:0093.2[facility] AgmfsppIVGOFRQUJT5121-29-52 05:01:00 Test Item Value Reference Range Interpretation Comments MCH (test code = MCH) 32.3 pg 27.0-31.0 [facility] FqoayaxUTBTAONICL2933-25-80 05:01:0014.6[facility] HermannHEMATOLOGY 2018-07-07 05:01:0042.2[facility] YucdtcvXZHBEQUDHJ3513-96-88 05:01:0034.7[facility] LeqqjbbWJJCINTBMM0671-25-56 05:01:004.53[facility] ZzxxsxkJXMXWQTXFF4832-04-91 05:01:006.1[facility] QyhsezhMFARGWBXMR0297-24-67 05:01:00 Test Item Value Reference Range Interpretation Comments PT (test code = PT) 12.3 s 12.0-14.7 [facility] CenterQblcvsoYNTKHOTGYU9461-42-36 05:01:00 Test Item Value Reference Range Interpretation Comments PTT (test code = PTT) 26.7 s 22.9-35.8 [facility] CenterUbnjtxqHVVMSONNQW4757-84-16 05:01:00 Test Item Value Reference Range Interpretation Comments INR (test code = INR) 0.91 1 0.85-1.17 [facility] HospitalYvvbaegQDTIRLUBFY3837-91-63 05:01:003.2MW[facility] CenterannHEMATOLOGY 2018-07-07 05:01:00 Test Item Value Reference Range Interpretation Comments Coag Index (test code 1.0 1 See_Comment [Auto mated message] The = Coag Index) system which g enerated this result transmit willow reference range : <=3.0. The reference range was not used to interpr et this result as rosalina l/abnormal. [facility] CenterXbautcaAXADRSRVRP4142-51-40 05:01:00 Test Item Value Reference Range Interpretation Comments Max Amp (test code = Max Amp) 55.2 mm 50.0-70.0 [facility] CenterJfdswubDXYSRGIRLN6779-74-38 05:01:006.2[facility]HE[facility] 2018-07-07 05:01:00 Test Item Value Reference Range Interpretation Comments R-time (test code = R-time) 3.8 min 5.0-10.0 [facility] CenterLzwnxufICNBKDOSJK5389-57-57 05:01:00 Test Item Value Reference Range Interpretation Comments K-time (test code = K-time) 1.7 min 1.0-3.0 [facility] HospitalFswltoyRDHLIXPNNE3889-91-39 05:01:00 Test Item Value Reference Range Interpretation Comments Angle (test code = Angle) 67.9 degrees 53.0-72.0 [facility] HospitalPsqefvjVHIEJMARRS7973-65-79 05:01:00See Note (07/07/18 12:01 AM)[facility] HermannPARATHYROID MDGKFGN5333-04-94 05:01:001.06[facility] HermannPARATHYROID QVCWUDM9558-37-36 05:01:001.07[facility]annBLOOD BANK YMEMHAL1935-53-70 05:01:00Negative (07/07/18 12:01 AM)[facility] HermannCHEM HLBZW6149-10-19 05:01:00 2.6[facility] HermannCHEM LMCDC8616-45-35 05:01:002.2[facility] HermannELECTROLYTES 2018-07-07 05:01:0014.0[facility] JtoyfrhIAPARFNBLMJC4634-02-42 05:01:0097[facility] MbtugnaBDBXYDMOISTQ1539-35-48 05:01:004.0[facility] HermannCHEM ZLNAI1831-85-67 20:40:001.9[facility] HermannCHEM YPIEK9555-72-90 20:40:001.9[facility] HermannCHEM FKQCX0949-74-30 05:31:002.1[facility] HermannCHEM MUNMB6106-55-80 05:31:002.8 [facility] HermannCHEM WACQI0367-87-00 05:31:00 Test Item Value Reference Range Interpretation Comments A/G Ratio (test code = A/G Ratio) 0.7 1 0.7-1.6 [facility] HermannCHEM HFIPX6089-98-12 05:31:003.5[facility] HermannCHEM PANEL 2018-07-06 05:31:000.7[facility] HermannCHEM RXOFD0799-01-17 05:31:000.5[facility] HermannCHEM ARBHQ5633-07-27 05:31:005.9[facility] HermannCHEM YRSGU0566-99-74 05:31:0095[facility] HermannCHEM MTFQR8878-49-79 05:31:002.4[facility] HermannCHEM XQCGO6322-22-22 05:31:88583Csylcaef HermannCHEM HMQQP8420-48-89 05:31:0087 [facility] HermannCHEM DMHGA4928-54-23 05:31:000.2[facility] HermannELECTROLYTES 2018-07-06 05:31:0011.7[facility] TbtgdjfAQUSPGKWXNHX8808-30-76 05:31:57175 [facility] XrefnsqAXPVOFCRHIVK0378-81-16 05:31:0017[facility] HermannELECTROLYTES 2018-07-06 05:31:000.68[facility] ZpwsftrDOIAKHTXOHDH1477-40-85 05:31:003.7 [facility] AhsgmwrEBBZCMQPSAYA7755-16-81 05:31:89691Qiawsmmp HermannELECTROLYTES 2018-07-06 05:31:0025[facility] SlpchjoGHRVLKLQEUOU3094-16-57 05:31:06539Nigznopm MastmlqRSYXELNWTBEB0936-95-00 05:31:69372Eqwwmcde SxfdcmrIFPYJJWOGBLE6611-31-38 05:31:007.8[facility] XaznovuPFKYREMSYR1770-94-25 05:31:0013.7[facility] EMSMZIBBBG2946-03-14 05:31:0035.5[facility] TemyehvYLQCJDRRAK5810-17-52 05:31:00 127[facility] WatldicSGDALDDYOG0381-33-08 05:31:008.2[facility] HermannHEMATOLOGY 2018-07-06 05:31:006.3[facility] DeimfzfOZBTUUNHUP1740-79-69 05:31:004.61[facility] EtnguzfNFUPJNOXWD0650-58-41 05:31:0014.9[facility] HuvvgloWOBKUSUOSQ2119-32-86 05:31:0042.1[facility] ImvoldtJZLRZILWBO3503-98-74 05:31:0091.2[facility] EJDSALMLHM1993-23-27 05:31:00 Test Item Value Reference Range Interpretation Comments MCH (test code = MCH) 32.4 pg 27.0-31.0 [facility] VwpmdplWKDFJPZBZO1363-90-64 05:31:001.2[facility] HermannHEMATOLOGY 2018-07-06 05:31:000.6[facility] TiyqaylYCZNUVHRRC7406-16-25 05:31:000.2[facility] DppkbqzLRAQSKNQBF3440-15-82 05:31:000.1[facility] YekjoatRXFICCLCVV0193-21-18 05:31:002.4[facility] BshofigLDVSFQREWM4001-47-36 05:31:004.3[facility] QSXBCMDYIF4537-30-55 05:31:001.0[facility] VwtlfnyGMTFOXKEGO8177-75-36 05:31:00 68.6[facility] AzqhbcuNHRUIBHKDX3132-16-86 05:31:0018.8[facility] HermannHEMATOLOGY 2018-07-06 05:31:009.2[facility] HermannPARATHYROID JSBPWCV9231-53-01 05:31:001.10 [facility] HermannPARATHYROID UQASWIN6814-33-17 05:31:001.10[facility] HermannCHEM TFLLY9824-59-87 05:31:002.1[facility] HermannCHEM YXSAR5612-93-81 05:31:002.8 [facility]annCHEM MKFDL5911-65-34 05:31:00 Test Item Value Reference Range Interpretation Comments A/G Ratio (test code = A/G Ratio) 0.7 1 0.7-1.6 [facility]annCHEM QVUFX1717-01-58 05:31:003.5[facility] HermannCHEM PANEL 2018-07-06 05:31:000.7[facility] HermannCHEM UBKUA7896-26-67 05:31:000.5[facility] HermannCHEM SVAOH5761-28-80 05:31:005.9[facility] HermannCHEM TRVVC0564-95-52 05:31:0095[facility] HermannCHEM PIIWN2523-84-52 05:31:002.4[facility] HermannCHEM HRJZK7120-61-82 05:31:46903Zfrrnndh HermannCHEM EBHOD0383-91-17 05:31:0087 [facility]annCHEM FVVSV1919-66-61 05:31:000.2[facility] HermannELECTROLYTES 2018-07-06 05:31:0011.7[facility] VewlqwpXHMGWKFGVCEI5821-80-22 05:31:53591 [facility] DjcwwgaYTUWKSEUNQFA9286-78-98 05:31:0017[facility]annELECTROLYTES 2018-07-06 05:31:000.68[facility] ScgzkkoHXUPLOUGWYQY4443-34-83 05:31:003.7 [facility] TankpyhLUXAWSRGIERF2353-69-27 05:31:50682Qufezxst HermannELECTROLYTES 2018-07-06 05:31:0025[facility] SifbfnmYTJXEPLXKLTN0625-74-44 05:31:23966Ndutpeju XivzbodMFCCNFBDESIH5611-33-28 05:31:23884Ixtxhrbi XwttextZHUTNFSSFMMA0441-90-40 05:31:007.8[facility] XkkbdcnXMTMYIXTTY2682-03-47 05:31:0013.7[facility] MAJPWBIERF4324-07-23 05:31:0035.5[facility] TeestxzPGZEHSNBBX6062-19-17 05:31:00 127[facility] WrfskpvZLUGMLATGV4109-42-95 05:31:008.2[facility] HermannHEMATOLOGY 2018-07-06 05:31:006.3[facility] AnarermEPNYVPKOWL7656-60-97 05:31:004.61[facility] RazvgkfWZSKMRGLUA2233-54-13 05:31:0014.9[facility] AqnknhjAHCVZOUTGS9025-46-69 05:31:0042.1[facility] MeezjceFYXPPNPGXI3813-66-55 05:31:0091.2[facility] BTKKJVFHKW5939-17-58 05:31:00 Test Item Value Reference Range Interpretation Comments MCH (test code = MCH) 32.4 pg 27.0-31.0 [facility] DtwvntiGEHWSTEVXF5880-28-58 05:31:001.2[facility]annHEMATOLOGY 2018-07-06 05:31:000.[facility] CutlexpOCNVYPFMNZ9752-15-49 05:31:000.2[facility] HdbzrvhETCFDIRZJD1493-10-36 05:31:000.1[facility] OarwpajFZQLGCKNYR5683-89-64 05:31:002.4[facility] YilaczvVZYARPQSNP5540-65-75 05:31:004.3[facility] JOISOCEGDU7677-50-60 05:31:001.0[facility] EjuddjnYFEAVBMRQX8635-00-61 05:31:00 68.6[facility] NmuatzkUWTUUWZNSB4599-83-42 05:31:0018.8[facility]annHEMATOLOGY 2018-07-06 05:31:009.2[facility] HermannPARATHYROID VEUMZLS4761-94-81 05:31:001.10 [facility]annPARATHYROID ATYOSGF8126-84-30 05:31:001.10[facility]annLIPIDS 2018-07-04 20:41:0076[facility] AbpuibcEDFIKT1274-47-08 20:41:00 Test Item Value Reference Range Interpretation Comments VLDL (test code = VLDL) 25 1 [facility] IcymrncWFIRNY4367-69-30 20:41:34919Pmknyxcy NmhjdkoWIGUYD4690-81-22 20:41:0052[facility] VttbjkrYEKHOF2152-64-42 20:41:80910Hvepsqpj HermannLIPIDS 2018-07-04 20:41:00 Test Item Value Reference Range Interpretation Comments CHD Risk (test code = CHD Risk) 2.94 1 4.00-7.30 [facility]annSPECIAL JRYMUUIMO8811-97-00 20:41:005.0[facility]annLIPIDS 2018-07-04 20:41:0076[facility] RpteazmZOSTCI9589-65-17 20:41:00 Test Item Value Reference Range Interpretation Comments VLDL (test code = VLDL) 25 1 [facility] EbdcitmUPNZRE6207-21-45 20:41:44728Roleygbn WjdpuoiOKORDV0317-33-53 20:41:0052[facility] OcjipgkRKEYEI7535-20-79 20:41:91790Rpyfgkat HermannLIPIDS 2018-07-04 20:41:00 Test Item Value Reference Range Interpretation Comments CHD Risk (test code = CHD Risk) 2.94 1 4.00-7.30 [facility]annSPECIAL UMUKBHZBT8621-19-38 20:41:005.0[facility] HermannCHEM MFMZA0967-23-65 20:40:000.2[facility]annCHEM BHOUX3036-45-29 20:40:91354 [facility]annCHEM MAUTS1044-01-12 20:40:003.8[facility]annCHEM PANEL 2018-07-04 20:40:000.9[facility]annCHEM BWWCL5008-63-91 20:40:00 Test Item Value Reference Range Interpretation Comments A/G Ratio (test code = A/G Ratio) 0.7 1 0.7-1.6 [facility]annCHEM ZMUWB4112-73-02 20:40:95797Ydirfpzo HermannCHEM PANEL 2018-07-04 20:40:006.5[facility]annCHEM FEEYR3901-64-79 20:40:002.7[facility]annCHEM BYXSY2932-56-84 20:40:82739Sznothtl HermannCHEM QHGYI8204-04-64 20:40:00 Test Item Value Reference Range Interpretation Comments B/C Ratio (test code = B/C Ratio) 18 05-05 [facility]annCHEM GZVCX6982-67-71 20:40:000.2[facility]annCHEM PANEL 2018-07-04 20:40:36268Drzlksrv HermannCHEM WRTFZ3837-43-32 20:40:003.8[facility]annCHEM YFPGP0775-27-05 20:40:000.9[facility]annCHEM DTFTJ8199-91-97 20:40:00 Test Item Value Reference Range Interpretation Comments A/G Ratio (test code = A/G Ratio) 0.7 1 0.7-1.6 [facility]annCHEM OHUXW5472-60-22 20:40:65825Wbolrshq HermannCHEM PANEL 2018-07-04 20:40:006.5[facility]annCHEM VVBPW3030-72-47 20:40:002.7[facility]annCHEM DVQNX8864-64-62 20:40:96996Ykepnowo HermannCHEM MGYCJ4102-38-44 20:40:00 Test Item Value Reference Range Interpretation Comments B/C Ratio (test code = B/C Ratio) 05-05 [facility]annDR[facility] [id number] 20:28:00Negative *NA*(07/04/18 3:28 PM) [facility] VKJVSF0436-04-42 20:28:00Negative *NA*(07/04/18 3:28 PM) [facility] YQWVOW2558-72-66 20:28:00Negative *NA*(07/04/18 3:28 PM) [facility] OAGVQJ3793-93-38 20:28:00Negative *NA*(07/04/18 3:28 PM) [facility] TIPUOF3896-77-77 20:28:00Negative *NA*(07/04/18 3:28 PM) [facility] ZBEQLP3985-26-07 20:28:00Negative *NA*(07/04/18 3:28 PM) [facility] ZUBUSM7739-58-55 20:28:00See Note (07/04/18 3:28 PM)[facility]annDR[facility] DQYQYX6154-52-33 20:28:00Negative *NA*(07/04/18 3:28 PM)[facility] ESXNE2489-41-84 20:28:00None Seen (07/04/18 3:28 PM)[facility] FMSJE7620-28-79 20:28:00None Seen (07/04/18 3:28 PM)[facility] KIDMQ7139-80-01 20:28:00None Seen (07/04/18 3:28 PM)[facility] OQBZU1484-13-76 20:28:00None Seen (07/04/18 3:28 PM)[facility] GLDQD6757-40-37 20:28:00Negative *NA*(07/04/18 3:28 PM)[facility] OVABX8313-82-56 20:28:00Negative *NA*(07/04/18 3:28 PM)[facility] [id number] 20:28:00 Test Item Value Reference Range Interpretation Comments UA Spec Grav (test code = UA Spec 1.025 1 Grav) [facility] [id number] 20:28:00Clear (07/04/18 3:28 PM) [facility] HVIHA9305-90-24 20:28:001.0[facility] JFGMI9853-45-25 20:28:00Negative (07/04/18 3:28 PM)[facility] VQOYS4538-13-02 20:28:00 Test Item Value Reference Range Interpretation Comments UA pH (test code = UA pH) 6.0 1 5.0-8.0 [facility] FGPQH6068-20-00 20:28:00Negative (07/04/18 3:28 PM) [facility] [id number] 20:28:00Negative (07/04/18 3:28 PM) [facility] FDSWV1170-55-23 20:28:00Moderate *ABN*(07/04/18 3:28 PM)[facility] ECMDZ4986-15-99 20:28:00Yellow *NA*(07/04/18 3:28 PM)[facility]annDR[facility] GSLYPB0621-14-45 20:28:00Negative *NA*(07/04/18 3:28 PM) [facility] KOSGCI3545-24-39 20:28:00Negative *NA*(07/04/18 3:28 PM) [facility] CRLFSJ2232-19-46 20:28:00Negative *NA*(07/04/18 3:28 PM) [facility] [id number] 20:28:00Negative *NA*(07/04/18 3:28 PM) [facility] OULWFG8102-91-67 20:28:00Negative *NA*(07/04/18 3:28 PM) [facility] NFGKOV0836-77-53 20:28:00Negative *NA*(07/04/18 3:28 PM) [facility] [id number] 20:28:00See Note (07/04/18 3:28 PM)[facility]annDR[facility] FFVRMC7317-81-92 20:28:00Negative *NA*(07/04/18 3:28 PM)[facility] LHSFK8909-35-34 20:28:00None Seen (07/04/18 3:28 PM)[facility] NGZQA4074-74-47 20:28:00None Seen (07/04/18 3:28 PM)[facility] FGTBZ4293-32-86 20:28:00None Seen (07/04/18 3:28 PM)[facility] [id number] 20:28:00None Seen (07/04/18 3:28 PM)[facility] [id number] 20:28:00Negative *NA*(07/04/18 3:28 PM)[facility] WDHGS7755-33-04 20:28:00Negative *NA*(07/04/18 3:28 PM)[facility] ZHYPI1503-13-33 20:28:00 Test Item Value Reference Range Interpretation Comments UA Spec Grav (test code = UA Spec 1.025 1 Grav) [facility] [id number] 20:28:00Clear (07/04/18 3:28 PM) [facility] [id number] 20:28:001.0[facility] VKPVC6505-62-07 20:28:00Negative (07/04/18 3:28 PM)[facility] DKVQM3524-69-27 20:28:00 Test Item Value Reference Range Interpretation Comments UA pH (test code = UA pH) 6.0 1 5.0-8.0 [facility] [id number] 20:28:00Negative (07/04/18 3:28 PM) [facility] [id number] 20:28:00Negative (07/04/18 3:28 PM) [facility] [id number] 20:28:00Moderate *ABN*(07/04/18 3:28 PM)[facility] [id number] 20:28:00Yellow *NA*(07/04/18 3:28 PM)[facility]annCHEM [id number] 19:44:000.7[facility] HermannCHEM PANEL 2018-07-04 19:44:000.7[facility] HermannCARDIAC AEPCKDO6647-38-40 19:29:00<0.02 [facility]annCARDIAC LXDJPBU3706-10-79 19:29:0086[facility]annHEMATOLOGY 2018-07-04 19:29:00 Test Item Value Reference Range Interpretation Comments Tot Cell Ct (test code = Tot Cell Ct) 100 1 [facility] BmsrwnzKHSKFLWAAB4105-21-09 19:29:00Normal (07/04/18 2:29 PM)[facility] BbhdkjxCATGDADEZB1685-27-87 19:29:00Normal (07/04/18 2:29 PM)[facility] VNLQIUZGZM4835-87-58 19:29:000.0[facility] XysuofnBYABHJJXXE5160-56-06 19:29:000.0 [facility] RfqoaqyZYTHOVDFDP0513-25-54 19:29:00 Test Item Value Reference Range Interpretation Comments PTT (test code = PTT) 20.4 s 22.9-35.8 [facility] CqrhngqUMSJPVYXRU1683-28-70 19:29:00 Test Item Value Reference Range Interpretation Comments INR (test code = INR) 0.93 1 0.85-1.17 [facility] OaayfdfQPOUGRJJFE2248-57-73 19:29:00 Test Item Value Reference Range Interpretation Comments PT (test code = PT) 12.5 s 12.0-14.7 [facility] POLBXPZ1355[facility]16-14 [facility]:29[facility] LKWSILG5860-05-59 19:29:0086[facility] AngelesApwkjdfTATIFXYPXQ0480-02-67 19:29:00 Test Item Value Reference Range Interpretation Comments Tot Cell Ct (test code = Tot Cell Ct) 100 1 [facility] HospitalDehqizfOJXTYZCQIB4802-98-93 19:29:00Normal (07/04/18 2:29 PM)[facility] HospitalFdbrqjrWKBZQLWQSG1760-20-77 19:29:00Normal (07/04/18 2:29 PM)[facility] BTWEPBLUYM7124-78-79 19:29:000.0[facility] AngelesAnllshuAZCVYWTFHR7708-38-49 19:29:000.0 [facility] HospitalHrwddsdGTUCUVDEJL3865-63-21 19:29:00 Test Item Value Reference Range Interpretation Comments PTT (test code = PTT) 20.4 s 22.9-35.8 [facility] HospitalWiotwvzXIDQJATZAC7898-09-63 19:29:00 Test Item Value Reference Range Interpretation Comments INR (test code = INR) 0.93 1 0.85-1.17 [facility] HospitalLlbuehaEFLIAYCBXM8490-11-87 19:29:00 Test Item Value Reference Range Interpretation Comments PT (test code = PT) 12.5 s 12.0-14.7 [facility] ABD PARCENTESIS W/MXNARNL5484-05-06 14:43:00ULTRASOUND DIRECTED PARACENTESIS:CLINICAL HISTORY: Ascites. Cirrhosis.Written and [...] with removal of 4 Lof fluid.US ABDOMEN JSMIEBZ-OWFTA2095-03-26 14:41:12ULTRASOUND ABDOMEN LIMITED:CLINICAL HISTORY: Ascites. Images were obtained over a quadrants of the abdomen for evaluation forascites volume. There is a moderate to large volume ascites.IMPRESSION:1. Moderate volume ascites.SP ABD PARCENTESIS W/[id number] 12:25:33Information: AscitesUltrasound guided paracentesisFollowing verbal and written [...] Ultrasound-guided paracentesis as described above.SP ABD PARCENTESIS W/TNXSDZR6060-77-10 11:52:16Information: CirrhosisShunt paracentesisFollowing verbal and written consent [...] as described above.US DUPLX ART FLOW, ABD/PELV [id number] 11:44:42EXAM: Abdominal Sonography with Hepatic Elastography.TECHNIQUE: Serial multiplanar grayscale imagingwith/without Dopplerinterrogation including color flow imaging and Doppler waveformanalysis. Hepaticelastography measurements were made utilizing [email or web address] Epiq 7 ultrasound unit (C5-1 multifrequency transducer).HISTORY: [...] 12.0 - 2.64+ Moderate - SevereUS ABDOMEN [id number] 11:19:24EXAM: Abdominal Sonography with Hepatic Elastography.TECHNIQUE: Serial multiplanar grayscale imagingwith/without Dopplerinterrogation including color flow imaging and Doppler waveformanalysis. Hepaticelastography measurements were made utilizing Zoomyq 7 ultrasound unit (C5-1 multifrequency tr ansducer).HISTORY: [...]
[2021-07-13] MEDS ORDERED: MORPHINE 4 MG/ML SYR ONE (23:52)
[2021-07-13] MEDS ORDERED: ONDANSETRON 4 MG/2 ML VIAL ONE (23:52)
[2021-07-14 00:09] LABS: Protime INR 1.08
[2021-07-14 00:29] LABS: Absolute Lymphocytes (CBC) 0.5 K/uL (0.7-4.9); Basophils % 1.3 % (0-1.3); Hematocrit 23.8 % (39.6-49.0); Lymphocytes % 20.1 % (15.3-44.8); MPV 7.6 fL (7.6-11.3); RBC Red Blood Cell Count 3.15 M/uL (4.33-5.43)
[2021-07-14 00:38] LABS: ALT/SGPT 26 U/L (12-78); AST/SGOT 35 U/L (15-37); Albumin 2.7 g/dL (3.4-5.0); Alkaline Phosphatase 73 U/L (45-117); Amylase 86 U/L (25-115); BUN Blood Urea Nitrogen 20 mg/dL (7-18); Bicarbonate 22 mmol/L (21-32); Bilirubin Direct < 0.1 mg/dL (0-0.2); Bilirubin Total 0.2 mg/dL (0.2-1.0); Glucose Level 154 mg/dL (74-106); Lipase 334 U/L (73-393); Potassium 4.3 mmol/L (3.5-5.1); Protein, Total 6.6 g/dL (6.4-8.2); Sodium Level 142 mmol/L (136-145)
[2021-07-14] MEDS ORDERED: MEPERIDINE HCL 50 MG/ML ONE (01:12)
[2021-07-14] MEDS ORDERED: HYDROMORPHONE HCL 2 MG/ML inj ONE ×2 (01:50→05:04)
[2021-07-14] MEDS ORDERED: NA CHLORIDE 0.9% 250 ML ONE (03:49)
--- NOTE | 2021-07-14 06:41 | ER ---
Nurse's Notes [facility] Name: Blaise Renee Age: 60 yrs Sex: Male : 1960 Arrival Date: 07/13/2021 Time: 22:56 Bed 14 Private MD: Diagnosis: Anemia. Blood transfusion Presentation: 07/13 23:00 Initial Sepsis Screen: Does the patient meet any 2 criteria? No. Patient's initial bs2 sepsis screen is negative. Does the patient have a suspected source of infection? No. Patient's initial sepsis screen is negative. Risk Assessment: Do you want to hurt yourself or someone else? Patient reports no desire to harm self or others. Onset of symptoms was July 14, 2021. 23:00 Acuity: TRICIA 3 bs2 23:00 Chief complaint: Patient states: pt states his dr sent him over with orders to receive bs2 two units of blood. Coronavirus screen: At this time, the client does not indicate any symptoms associated with coronavirus-19. Ebola Screen: No symptoms or risks identified at this time. 23:00 Method Of Arrival: Wheelchair bs2 Triage Assessment: 23:00 General: Appears in no apparent distress. distressed, comfortable, slender, Behavior is bs2 calm, appropriate for age, agitated. Pain: Complains of pain in right hip Pain currently is 8 out of 10 on a pain scale. EENT: No signs and/or symptoms were reported regarding the EENT system. Neuro: No deficits noted. Cardiovascular: No deficits noted. Historical: - Allergies: 07/14 05:15 No Known Allergies; bs2 - Home Meds: 05:15 amlodipine oral [Active]; atorvastatin Oral [Active]; clopidogrel Oral [Active]; Lasix bs2 Oral [Active]; lisinopril Oral [Active]; Spironolactone Oral [Active]; - PMHx: 05:15 Cirrhosis; Hepatitis; Hypertension; bs2 - Immunization history:: Adult Immunizations not up to date. - Social history:: Smoking status: Patient/guardian denies using tobacco, Stopped _ months ago 5 Patient/guardian denies using alcohol, the patient reports quitting approximately 3 years ago. Screenin/02 23:00 Abuse screen: Denies threats or abuse. Denies injuries from another. Nutritional bs2 screening: No deficits noted. Tuberculosis screening: No symptoms or risk factors identified. Fall Risk Ambulatory Aid- Crutches/Cane/Walker (15 pts). Gait- Weak (10 pts.). Assessment: 23:00 Reassessment:. General: Appears uncomfortable, slender, Behavior is cooperative, bs2 appropriate for age. Pain: Complains of pain in pelvis and right hip. Neuro: No deficits noted. Cardiovascular: No deficits noted. Respiratory: Respiratory effort is unlabored, Respiratory pattern is tachypnea. GI: No signs and/or symptoms were reported involving the gastrointestinal system. : No signs and/or symptoms were reported regarding the genitourinary system. 07/14 05:25 General: Pt was at his Dr office was sent over with orders to receive two units of bs2 blood re-check H\T\H and send pt home, somehow patient was sent to a room with no hospitalist or admitting Dr assigned, blood work and type and screen were drawn, but the orders for the two units were never processed, when pt arrived in ER we had to register him as an ER pt and start the process over including new type and screen . . 07:00 Reassessment: No changes from previously documented assessment. Patient and/or family ll1 updated on plan of care and expected duration. Pain level reassessed. Patient is alert, oriented x 3, equal unlabored respirations, skin warm/dry/pink. 08:00 Reassessment: No changes from previously documented assessment. Patient and/or family ll1 updated on plan of care and expected duration. Pain level reassessed. Patient is alert, oriented x 3, equal unlabored respirations, skin warm/dry/pink. 09:00 Reassessment: No changes from previously documented assessment. Patient and/or family ll1 updated on plan of care and expected duration. Pain level reassessed. Patient is alert, oriented x 3, equal unlabored respirations, skin warm/dry/pink. 10:00 Reassessment: No changes from previously documented assessment. Patient and/or family ll1 updated on plan of care and expected duration. Pain level reassessed. Patient is alert, oriented x 3, equal unlabored respirations, skin warm/dry/pink. Vital Signs: 07/13 23:00 BP 166 / 82 RA Sitting (auto/reg); Pulse 107; Resp 27 S; Temp 98.6(O); Pulse Ox 98% on bs2 R/A; Weight 81.19 kg; Height 5 ft. 7 in. (170.18 cm); Pain 8/10; 07/14 10:17 BP 176 / 85; Pulse 105; Resp 19; Temp 98.1; Pulse Ox 96% ; Pain 0/10; ll1 07/13 23:00 Body Mass Index 28.04 (81.19 kg, 170.18 cm) bs2 ED Course: 07/13 22:56 Patient arrived in ED. cf2 22:56 Vicente Mcintosh MD is Attending Physician. pkl 23:00 No provider procedures requiring assistance completed. Inserted saline lock: 20 gauge bs2 in right forearm, using aseptic technique. Blood collected. 23:00 Arm band placed on right wrist. Patient placed in an exam room, on a stretcher, on bs2 cardiac surgeon, on pulse oximetry. 23:00 Patient has correct armband on for positive identification. Placed in gown. Bed in low bs2 position. Call light in reach. Side rails up X 1. quality assurance monitor body on. Pulse ox on. NIBP on. Door closed. Noise minimized. Visitors limited. Lights dimmed. Warm blanket given. Pillow given. 23:21 Anna Hood, RN is Primary Nurse. bs2 23:24 CBC with Diff Sent. bs2 23:24 Chem 7 Sent. bs2 23:24 LFT's Sent. bs2 23:24 Tylenol Level Sent. bs2 07/14 00:10 EKG done, by ED staff, reviewed by Vicente Mcintosh MD. tt3 01:06 Type and Screen Sent. bs2 01:06 Packed RBC Leukored Sent. bs2 01:06 T\T\S Sent. bs2 05:15 Triage completed. bs2 07:44 Hematocrit Sent. dh3 07:44 Hemoglobin Sent. dh3 10:11 IV discontinued, intact, bleeding controlled, No redness/swelling at site. Pressure ll1 dressing applied. 10:17 IV discontinued, intact, bleeding controlled, No redness/swelling at site. Pressure ll1 dressing applied. Administered Medications: 07/12 23:45 Drug: morphine 4 mg Route: IVP; Site: right forearm; bs2 07/14 01:06 Follow up: Response: No adverse reaction bs2 07/12 23:45 Drug: Zofran (Ondansetron) 4 mg Route: IVP; Site: right forearm; bs2 07/14 01:06 Follow up: Response: No adverse reaction bs2 00:54 Drug: Demerol (meperidine) 50 mg Route: IVP; Site: right forearm; bs2 01:06 Follow up: Response: No adverse reaction bs2 01:33 Drug: Dilaudid (HYDROmorphone) 1 mg Route: IVP; Site: right forearm; bs2 06:34 Follow up: Response: No adverse reaction bs2 06:00 Drug: Dilaudid (HYDROmorphone) 1 mg Route: IVP; Site: left forearm; bs2 06:34 Follow up: Response: No adverse reaction; Pain is unchanged, physician notified bs2 07:34 Drug: Dilaudid (HYDROmorphone) 1 mg Route: IVP; Site: right forearm; ll1 10:18 Follow up: Response: No adverse reaction ll1 Medication: 03:35 Blood products: PRBCs X 1 unit given. See transfusion record. bs2 Outcome: 06:41 Discharge ordered by . natalio 10:18 Patient left the ED. ll1 Signatures: Vicente Mcintosh MD MD pkl Erika Aruajo 3 Dayanara Bonner cf2 Felipa Negron RN RN ll1 Justin Mclaughlin 3 Anna Hood RN RN bs2 Corrections: (The following items were deleted from the chart) 05:20 05:15 General: Appears in no apparent distress. distressed, comfortable, slender, bs2 Behavior is calm, appropriate for age, agitated, bs2 05:20 05:15 Pain: Complains of pain in right hip Pain currently is 8 out of 10 on a pain bs2 scale. bs2 05:20 05:15 EENT: No signs and/or symptoms were reported regarding the EENT system. bs2 bs2 05:20 05:15 Neuro: No deficits noted. bs2 bs2 05:20 05:15 Cardiovascular: No deficits noted. bs2 bs2 05:21 05:11 Chief complaint: Patient states: pt states his dr sent him over with orders to bs2 receive two units of blood. bs2 05:21 05:11 Coronavirus screen: At this time, the client does not indicate any symptoms bs2 associated with coronavirus-19. bs2 05:21 05:11 Ebola Screen: No symptoms or risks identified at this time. bs2 bs2 05:21 05:11 Method Of Arrival: Wheelchair bs2 bs2
--- NOTE | 2021-07-14 06:42 | EDPHYS ---
Physician Documentation [facility] Name: Blaise Renee Age: 60 yrs Sex: Male : 1960 Arrival Date: 07/13/2021 Time: 22:56 Bed 14 Private MD: ED Physician Vicente Mcintosh HPI: 07/13 23:42 This 60 yrs old Male presents to ER via Unassigned with complaints of ANEMIA. pkl 23:42 Patient sent to hospital by private physician for blood transfusion. pkl Historical: - Allergies: 07/14 05:15 No Known Allergies; bs2 - Home Meds: 05:15 amlodipine oral [Active]; atorvastatin Oral [Active]; clopidogrel Oral [Active]; Lasix bs2 Oral [Active]; lisinopril Oral [Active]; Spironolactone Oral [Active]; - PMHx: 05:15 Cirrhosis; Hepatitis; Hypertension; bs2 - Immunization history:: Adult Immunizations not up to date. - Social history:: Smoking status: Patient/guardian denies using tobacco, Stopped _ months ago 5 Patient/guardian denies using alcohol, the patient reports quitting approximately 3 years ago. ROS: 07/13 23:42 Eyes: Negative for injury, pain, redness, and discharge, ENT: Negative for injury, pkl pain, and discharge, Neck: Negative for injury, pain, and swelling, Cardiovascular: Negative for chest pain, palpitations, and edema, Respiratory: Negative for shortness of breath, cough, wheezing, and pleuritic chest pain, Abdomen/GI: Negative for abdominal pain, nausea, vomiting, diarrhea, and constipation, Back: Negative for injury and pain, : Negative for injury, bleeding, discharge, and swelling. MS/extremity: Positive for pain, of the right hip. Skin: Negative for rash. Neuro: Negative for altered mental status, loss of consciousness. Exam: 23:42 Head/Face: Normocephalic, atraumatic. Eyes: Pupils equal round and reactive to light, pkl extra-ocular motions intact. Lids and lashes normal. Conjunctiva and sclera are non-icteric and not injected. Cornea within normal limits. Periorbital areas with no swelling, redness, or edema. ENT: Nares patent. No nasal discharge, no septal abnormalities noted. Tympanic membranes are normal and external auditory canals are clear. Oropharynx with no redness, swelling, or masses, exudates, or evidence of obstruction, uvula midline. Mucous membranes moist. Neck: Trachea midline, no thyromegaly or masses palpated, and no cervical lymphadenopathy. Supple, full range of motion without nuchal rigidity, or vertebral point tenderness. No Meningismus. Chest/axilla: Normal chest wall appearance and motion. Nontender with no deformity. No lesions are appreciated. Cardiovascular: Regular rate and rhythm with a normal S1 and S2. No gallops, murmurs, or rubs. Normal PMI, no JVD. No pulse deficits. Respiratory: Lungs have equal breath sounds bilaterally, clear to auscultation and percussion. No rales, rhonchi or wheezes noted. No increased work of breathing, no retractions or nasal flaring. Abdomen/GI: Soft, non-tender, with normal bowel sounds. No distension or tympany. No guarding or rebound. No evidence of tenderness throughout. Back: No spinal tenderness. No costovertebral tenderness. Full range of motion. Skin: Warm, dry with normal turgor. Normal color with no rashes, no lesions, and no evidence of cellulitis. Neuro: Awake and alert, GCS 15, oriented to person, place, time, and situation. Cranial nerves II-XII grossly intact. Motor strength 5/5 in all extremities. Sensory grossly intact. Cerebellar exam normal. Normal gait. 23:42 Musculoskeletal/extremity: Extremities: grossly normal except: noted in the right hip: pain. 07/14 00:41 Abdomen/GI: Rectal exam: Stool: guaiac negative, the exam is chaperoned by the nurse. [facility] Vital Signs: 07/13 23:00 BP 166 / 82 RA Sitting (auto/reg); Pulse 107; Resp 27 S; Temp 98.6(O); Pulse Ox 98% on bs2 R/A; Weight 81.19 kg; Height 5 ft. 7 in. (170.18 cm); Pain 8/10; 07/14 10:17 BP 176 / 85; Pulse 105; Resp 19; Temp 98.1; Pulse Ox 96% ; Pain 0/10; ll1 07/13 23:00 Body Mass Index 28.04 (81.19 kg, 170.18 cm) bs2 MDM: 07/13 22:56 Patient medically screened. pkl 07/14 06:39 Data reviewed: vital signs, nurses notes, lab test result(s). pkl 07/13 23:11 Order name: CBC with Diff; Complete Time: 00:32 pkl 07/13 23:11 Order name: Chem 7; Complete Time: 00:39 pkl 07/13 23:11 Order name: LFT's; Complete Time: 00:39 pkl 07/13 23:11 Order name: Tylenol Level; Complete Time: 00:39 pkl 07/13 23:24 Order name: Lactate; Complete Time: 01:22 bs2 07/13 23:24 Order name: Protime (+inr); Complete Time: 00:32 bs2 07/13 23:24 Order name: Ptt, Activated; Complete Time: 00:32 bs2 07/13 23:24 Order name: T\T\S bs2 07/13 23:24 Order name: AMMONIA; Complete Time: 00:05 bs2 07/13 23:11 Order name: Saline Lock; Complete Time: 23:24 pkl 07/13 23:40 Order name: Amylase; Complete Time: 00:39 EDMS 07/13 23:40 Order name: Lipase; Complete Time: 00:39 EDMS 07/14 00:04 Order name: Type and Screen EDMS 07/14 00:04 Order name: Packed RBC Leukored EDMS 07/14 00:57 Order name: SARS-COV-2 RT PCR; Complete Time: 01:22 EDMS 07/14 07:10 Order name: Hemoglobin; Complete Time: 09:57 bs2 07/14 07:10 Order name: Hematocrit; Complete Time: 09:57 bs2 07/14 09:30 Order name: EKG Electrocardiogram EDMS Administered Medications: 07/12 23:45 Drug: morphine 4 mg Route: IVP; Site: right forearm; bs2 07/14 01:06 Follow up: Response: No adverse reaction bs2 07/12 23:45 Drug: Zofran (Ondansetron) 4 mg Route: IVP; Site: right forearm; bs2 07/14 01:06 Follow up: Response: No adverse reaction bs2 00:54 Drug: Demerol (meperidine) 50 mg Route: IVP; Site: right forearm; bs2 01:06 Follow up: Response: No adverse reaction bs2 01:33 Drug: Dilaudid (HYDROmorphone) 1 mg Route: IVP; Site: right forearm; bs2 06:34 Follow up: Response: No adverse reaction bs2 06:00 Drug: Dilaudid (HYDROmorphone) 1 mg Route: IVP; Site: left forearm; bs2 06:34 Follow up: Response: No adverse reaction; Pain is unchanged, physician notified bs2 07:34 Drug: Dilaudid (HYDROmorphone) 1 mg Route: IVP; Site: right forearm; ll1 10:18 Follow up: Response: No adverse reaction ll1 Disposition Summary: 07/14/21 06:41 Discharge Ordered Location: Home pkl Problem: new pkl Symptoms: have improved pkl Condition: Stable pkl Diagnosis - Anemia. Blood transfusion pkl Followup: pkl - With: Private Physician - When: 2 - 3 days - Reason: Re-evaluation by your physician Forms: - Medication Reconciliation Form pkl - Thank You Letter pkl - Antibiotic Education pkl - Prescription Opioid Use pkl Signatures: Dispatcher [employer] EDMS Vicente Mcintosh MD MD pkl Jamshid Garcia, FLIGHT OPERATION COORDINATOR-C FLIGHT OPERATION COORDINATOR-Cla1 Rita Adamson MD MD ma2 Felipa Negron RN RN ll1 Anna Hood RN RN bs2 Corrections: (The following items were deleted from the chart) 07/13 23:12 23:12 TYPE AND SCREEN+BB.LAB.BRZ ordered. EDMS EDMS 23:40 23:25 AMYLASE, SERUM+C.LAB.BRZ ordered. EDMS EDMS 23:40 23:25 HEPATIC FUNCTION+C.LAB.BRZ ordered. EDMS EDMS 23:40 23:25 LIPASE+C.LAB.BRZ ordered. EDMS EDMS 07/14 00:09 07/13 23:13 CORONAVIRUS+MR.LAB.BRZ ordered. EDMS EDMS
[2021-07-14] MEDS ORDERED: HYDROMORPHONE HCL 1 MG/ML INJ ONE (07:45)
[2021-07-14 07:51] LABS: Hematocrit 26.4 % (39.6-49.0)
[2021-07-14 10:25] VITALS: BP 176/85; TEMP 98.1; O2SAT 96
--- NOTE | 2021-07-14 11:06 | EKG ---
Test Date: 2021-07-14 Test Time: 00:04:01 Rivet Tosser: TLT MEASUREMENT RESULTS: Intervals: Rate: 94 CT: 140 QRSD: 84 QT: 358 QTc: 447 [place]: P: 59 CT: 140 QRS: -27 T: 14 INTERPRETIVE STATEMENTS: Normal sinus rhythm Voltage criteria for left ventricular hypertrophy Abnormal ECG Compared to ECG 02/22/2021 07:17:11 Atrial premature complex(es) no longer present Electronically Signed On 07-14-21 11:05:38 CDT by Sam Dyer
== END 2021-07-14 10:18 | disposition home or self-care (01) ==
LOC: ER 22:54
PROC: 30233N1 Transfusion of Nonautologous Red Blood Cells into Peripheral Vein, Percutaneous Approach (ICD-10-PCS; principal; 2021-07-14)
DX: D64.9 Anemia, unspecified (principal); I10 Essential (primary) hypertension; K74.60 Unspecified cirrhosis of liver; Z20.822 Contact with and (suspected) exposure to COVID-19
CPT/HCPCS: 93005; 85025; 80048; 36415; 82140; 82150; 86900; 86850; 80329; 85610; 86901; 80076; 83605; 85730; 85018; 85014; 83690; 36430 ×2; 99285; U0003; J1170 ×3; J2175; P9016 ×2; J7050; J2405

== ENCOUNTER → 2021-07-13 | Emergency (ER) | payer OTHER ==
--- OUTSIDE RECORDS SUMMARY | 2021-07-13 15:55 | XMS REPORT | Continuity of Care Document ---
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 nt of venous thrombos is 2.0 - 3.0Prevention o f embolism 2.0 - 3.0Prevention o f recurrent embol ism, or 3.0 - 4. 5 patients with mechanical pros thetic intravascular v bergman IS PATIENT ON ANTICOAGULANTS ? YLIST ANTICOAGULANT/ANTI PLT MEDICATION : Clopidogrel (Anti-PLT)Has Lab been notified if Patient is on Heparin Drip? NOIf Yes, order CBC, OCCULT BLOOD, PT every other day N THROMBOPLASTIN TIME [id number] 19:15:00 Test Item Value Reference Range Interpretation Comments PTT ACTIVATED (test code = APTT) 31.0 secs 24.9-37.0 N IS PATIENT ON ANTICOAGULANTS ? YLIST ANTICOAGULANT/ANTI PLT MEDICATION : Clopidogrel (Anti-PLT)Has Lab been notified if Patient is on Heparin Drip? NOIf Yes, order CBC, OCCULT BLOOD, PT every other day NC REACTIVE [id number] 19:14:00 Test Item Value Reference Range Interpretation Comments C REACTIVE PROTEIN (test code = < 0.2 mg/dL <0.9 CRP) AB HIV 19:14:00 Test Item Value Reference Range Interpretation Comments AB HIV 1 (test code = HIV1AB) NONREACTIVE CBC W/AUTO [id number] 18:55:00 Test Item Value Reference Range Interpretation Comments WHITE BLOOD CELL (test code = WBC) 3.3 K/mm3 5.7-10.5 L RED BLOOD CELL (test code = RBC) 3.02 M/mm3 4.2-5.4 L HEMOGLOBIN (test code = HGB) 7.1 g/dL 12-16 L HEMATOCRIT (test code = HCT) 23.7 % 37-47 L MEAN CELL VOLUME (test code = MCV) 79 fL 80-98 L MEAN CELL HGB (test code = MCH) 23.5 pg 27-34 L MEAN CELL HGB CONCENTRATION (test 30.0 g/dL 30.8-34.1 L code = MCHC) RED CELL DISTRIBUTION WIDTH (test 15.0 % 11-16 N code = RDW) PLT (test code = PLT) 212 K/mm3 130-400 N MEAN PLATELET VOLUME (test code = 10.3 fL 8.9-12.1 N MPV) NEUTROPHIL % (test code = NT%) 73.9 % 45-70 H LYMPHOCYTE % (test code = LY%) 19.5 % 20-40 L MONOCYTE % (test code = MO%) 4.5 % 3-10 N EOSINOPHIL % (test code = EO%) 0.9 % 1-5 L BASOPHIL % (test code = BA%) 0.9 % 0.0-1.1 N NEUTROPHIL # (test code = NT#) 2.47 K/mm3 2.00-7.50 N LYMPHOCYTE # (test code = LY#) 0.65 K/mm3 1.50-4.00 L MONOCYTE # (test code = MO#) 0.15 K/mm3 0.2-0.8 L EOSINOPHIL # (test code = EO#) 0.03 K/mm3 0.04-0.4 L BASOPHIL # (test code = BA#) 0.03 K/mm3 0.02-0.10 N MANUAL DIFF REQUIRED (test code = NO MANUAL DIFF MDIFF) NUCLEATED RED BLOOD CELL (test 0 % 0-0 N code = NRBC) SED [id number] 18:55:00 Test Item Value Reference Range Interpretation Comments SED RATE (test code = SEDW) 82 mm/hr 0-15 H CBC W/AUTO [id number] 17:28:00 Test Item Value Reference Range Interpretation Comments WHITE BLOOD CELL (test code = WBC) 3.3 K/mm3 5.7-10.5 L RED BLOOD CELL (test code = RBC) 3.02 M/mm3 4.2-5.4 L HEMOGLOBIN (test code = HGB) 7.1 g/dL 12-16 L HEMATOCRIT (test code = HCT) 23.7 % 37-47 L MEAN CELL VOLUME (test code = MCV) 79 fL 80-98 L MEAN CELL HGB (test code = MCH) 23.5 pg 27-34 L MEAN CELL HGB CONCENTRATION (test 30.0 g/dL 30.8-34.1 L code = MCHC) RED CELL DISTRIBUTION WIDTH (test 15.0 % 11-16 N code = RDW) PLT (test code = PLT) 212 K/mm3 130-400 N MEAN PLATELET VOLUME (test code = 10.3 fL 8.9-12.1 N MPV) NEUTROPHIL % (test code = NT%) 73.9 % 45-70 H LYMPHOCYTE % (test code = LY%) 19.5 % 20-40 L MONOCYTE % (test code = MO%) 4.5 % 3-10 N EOSINOPHIL % (test code = EO%) 0.9 % 1-5 L BASOPHIL % (test code = BA%) 0.9 % 0.0-1.1 N NEUTROPHIL # (test code = NT#) 2.47 K/mm3 2.00-7.50 N LYMPHOCYTE # (test code = LY#) 0.65 K/mm3 1.50-4.00 L MONOCYTE # (test code = MO#) 0.15 K/mm3 0.2-0.8 L EOSINOPHIL # (test code = EO#) 0.03 K/mm3 0.04-0.4 L BASOPHIL # (test code = BA#) 0.03 K/mm3 0.02-0.10 N MANUAL DIFF REQUIRED (test code = NO MANUAL DIFF MDIFF) NUCLEATED RED BLOOD CELL (test 0 % 0-0 N code = NRBC) SED [id number] 17:28:00 Test Item Value Reference Range Interpretation Comments SED RATE (test code = SEDW) mm/hr 0-15 - CT LOWER EXTRM W/O C [id number] 17:04:00 [facility] 1960 Sex: M Patient Name: DINO CARDOZA Unit No: [id number] EXAMS: CPT CODE: [id number] [place] L[place]TR[place] W/[place] [address] [place] SCAN RIGHT HIP AND PROXIMAL FEMUR WITH RECONSTRUCTION DIAGNOSIS: 1. 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 TECHNIQUE: Volumetric CT data of the right hip and proximal right femur was obtained without use of intravenous contrast. Images were then viewed in the axial, coronal and sagittal planes. CT radiation dose optimization is achieved for this examination by the use of a CT protocol in accordance with ACR practice standards and adherenceto heel stiffener's recommendations. INDICATION: [id number] COMPARISON: None. IMPRESSION: Findings are as described above. El ectronically Signed by Marck Hughes MD on 06/12/2021 at 1704 Reported and signed by: Marck Hughes MD CC: Wilber Allen MD Technologist: Dre Brito,RT(R) CTDI: DLP: Trnscrpt: 06/12/2021 ([id number]) NicholeGVG [facility] NAME: DINO CARDOZA [address] [facility] [address] PHYS: BRKIARRA. - Wilber Allen MD : 1960 AGE: 60 SEX: M [place], [place] [address] LOC: Y.CTS PHONE #: [phone] EXAM DATE: 06/12/2021 STATUS: REG CLI FAX #: [phone] RAD #: D/C DT PAGE 1 Signed Report Patient Name: DINO CARDOZAUnit No: [id number] EXAMS: CPT CODE: [id number] CT LOWER EXTRM W/[place] [address] <Continued> Orig Print D/T: S: 06/12/2021 (5650) [facility] NAME: DINO CARDOZA [address] [facility] [address] PHYS: [email or web address] - Wilber Allen MD : 1960 AGE:60 SEX: M [place], [place] [address] LOC: Y.CTS PHONE #: [phone] EXAM DATE: 06/12/2021 STATUS: REG CLI FAX #: [phone] RAD #: D/C DT PAGE 2 Signed ReportCHEM [id number] 08:36:002.3[facility]annCHEM EVFSU0115-58-95 08:36:003.8[facility] HermannCHEM VNVST8622-27-27 08:36:98618Aujgupmu HermannCHEM DMKCI8041-69-19 08:36:003.7[facility] HermannCHEM KTLJD3815-15-94 08:36:91007Ujqllmds HermannCHEM ZFHUT8584-07-46 08:36:000.65 [facility]annCHEM URABW4136-36-65 08:36:83173Wubybhvo HermannCHEM PANEL 2018-07-08 08:36:008.1[facility] HermannCHEM MLYWS3097-02-76 08:36:0024Mem[facility] HermannCHEM ITYYJ9439-30-86 08:36:0012[facility] HermannCHEM OYJYD4431-39-47 08:36:58812Akxownqt HermannCHEM RZIXW3509-23-23 08:36:0011.7[facility] BVEPZGNEZG7303-59-10 08:36:000.1[facility] IjtntfwIGNFECYAFT5382-25-78 08:36:000.2 [facility] HmnbvaxQFPWWEXRVJ2551-49-99 08:36:000.5[facility] HermannHEMATOLOGY 2018-07-08 08:36:001.4[facility] PrvkemiIRETJHXJVY1081-75-35 08:36:004.3[facility] WpznwdqYPYLFAUXQM2699-61-18 08:36:007.7[facility] TkmykoiEPWRVEMHWM5632-88-25 08:36:0021.2[facility] PouuczhHKHWQVQGXC9627-71-86 08:36:002.4[facility] NNRFOPJTZF2691-78-97 08:36:001.3[facility] SliybitHVRFVTXZLI6243-92-50 08:36:00 67.4[facility] NkmuxgbWVPDYUCASS1097-66-40 08:36:0041.7[facility] HermannHEMATOLOGY 2018-07-08 08:36:0091.7[facility] SmwooabVZUTDXTFWB9622-44-39 08:36:006.4[facility] TxvadsjRFTSGQMHXD9541-82-93 08:36:0035.6[facility] UfoxlvqDAGZNJWBPN8695-81-98 08:36:004.54[facility] YzhaariITITVABMGU3116-07-56 08:36:0014.8[facility] DVRPXYAWLA1364-29-17 08:36:008.1[facility] VmdbwrmXNHNSATVDQ2387-96-96 08:36:76899 [facility] KyqvemsQXPUWDWACH6972-44-84 08:36:0013.9[facility] HermannHEMATOLOGY 2018-07-08 08:36:00 Test Item Value Reference Range Interpretation Comments MCH (test code = MCH) 32.6 pg 27.0-31.0 [facility] HermannPARATHYROID RRXBXSR6394-09-03 08:36:001.08[facility] PARATHYROID QNZZOFP4978-98-37 08:36:001.10[facility] LffnucsSJUGFAOSDEYT3573-89-42 05:01:05963Zdltzoeh ReqzcbxMNBPCETDJCUV1461-87-22 05:01:0017[facility] ZWDFGDQVYXPZ1432-20-71 05:01:31901Quwsysqz BgcfvquLEPIQZNEIWCE5484-82-15 05:01:0097[facility] NaancheBBLHHNXVRQLZ9220-43-83 05:01:000.82[facility] EXIBQUERJOHR7756-99-37 05:01:0022[facility] PltzfnyIFWVHMTADKYA0110-17-93 05:01:00 8.0[facility] XieappiDUUODOPPKI8114-15-72 05:01:0023.2[facility] HermannHEMATOLOGY 2018-07-07 05:01:0064.9[facility] WjkxtvzKEYTMZNCRR6329-26-53 05:01:000.2[facility] EltljudZCCPNEWOGC0894-49-24 05:01:000.1[facility] HpqnvflMBGQIBGXHY5906-77-80 05:01:001.3[facility] MubbhjeCULROORRTD5486-56-77 05:01:004.0[facility] MRKVHTNCGH5926-07-11 05:01:008.0[facility] BpningbRHEFLLSVPP8365-65-65 05:01:002.6 [facility] KbcvvwaCJTLASOTHE4043-17-77 05:01:001.4[facility] HermannHEMATOLOGY 2018-07-07 05:01:000.5[facility] ChotlenKZCUSVWCQE6554-85-51 05:01:09360Oirfoply ExludgxAGAASGNRTB6451-05-15 05:01:008.3[facility] PtllqqeFQNVKHXTKR5704-05-90 05:01:0014.2[facility] BqzwszmVEOCJWODDZ5076-33-36 05:01:0093.2[facility] RFRXDCAIUS7415-53-39 05:01:00 Test Item Value Reference Range Interpretation Comments MCH (test code = MCH) 32.3 pg 27.0-31.0 [facility] KhzzncnYLXQEJHKTO7745-92-92 05:01:0014.6[facility] 2018-07-07 05:01:0042.2[facility] HvnojacBKWYXWIPJU1863-02-06 05:01:0034.7[facility] OofsflmLDUQYBRNIB7189-15-25 05:01:004.53[facility] VziicuhFKNNPFMGLO6454-54-86 05:01:006.1[facility]RquahedWMHNUYEIDW1104-26-66 05:01:00 Test Item Value Reference Range Interpretation Comments PT (test code = PT) 12.3 s 12.0-14.7 [facility] [place] [facility]CdngmbgPQWFJVRTKK3589-62-47 05:01:00 Test Item Value Reference Range Interpretation Comments PTT (test code = PTT) 26.7 s 22.9-35.8 [facility] [place] [facility] SystemVdpsuwrVYPINMVYKI1021-61-39 05:01:00 Test Item Value Reference Range Interpretation Comments INR (test code = INR) 0.91 1 0.85-1.17 [facility] [place] [facility] SystemXgfeevvLIIENRZFJP8794-39-63 05:01:003.2[facility] 2018-07-07 05:01:00 Test Item Value Reference Range Interpretation Comments Coag Index (test code 1.0 1 See_Comment [Auto mated message] The = Coag Index) system which g enerated this result transmit willow reference range : <=3.0. The reference range was not used to interpr et this result as rosalina l/abnormal. [facility] [place] [facility] SystemEpglexjXSDYFLUBTE4728-77-53 05:01:00 Test Item Value Reference Range Interpretation Comments Max Amp (test code = Max Amp) 55.2 mm 50.0-70.0 [facility] [place] [facility] SystemKouccikFPQPKQCOJE0063-91-35 05:01:006.2[facility] 2018-07-07 05:01:00 Test Item Value Reference Range Interpretation Comments R-time (test code = R-time) 3.8 min 5.0-10.0 [facility] [place] [facility] SystemApsakgeKTGTDKFPIP7002-33-00 05:01:00 Test Item Value Reference Range Interpretation Comments K-time (test code = K-time) 1.7 min 1.0-3.0 [facility] [place] [facility] SystemTfkvzrwUHALFNOOTY7525-95-28 05:01:00 Test Item Value Reference Range Interpretation Comments Angle (test code = Angle) 67.9 degrees 53.0-72.0 [facility] SgnpuxvFBZDODEEYR2604-78-39 05:01:00See Note (07/07/18 12:01 AM)[facility] HermannPARATHYROID QZTDFCS2912-80-99 05:01:001.06[facility] HermannPARATHYROID GPTIOQU6217-45-76 05:01:001.07[facility] HermannBLOOD BANK ZQNFYPK5307-17-87 05:01:00Negative (07/07/18 12:01 AM)[facility] HermannCHEM GRTKH9788-62-15 05:01:00 2.6[facility] HermannCHEM TNPQM4593-84-53 05:01:002.2[facility] HermannELECTROLYTES 2018-07-07 05:01:0014.0[facility] FixorwwMBDXMUCSMMHC7906-67-39 05:01:0097[facility] YprkpblLYCVYURKYHAY9799-65-22 05:01:004.0[facility] HermannCHEM TKMVO9555-11-38 20:40:001.9[facility] HermannCHEM PYHXZ8278-43-54 05:31:002.1[facility] HermannCHEM QHXRE3952-49-18 05:31:002.8[facility] HermannCHEM GSSDL5275-20-75 05:31:00 Test Item Value Reference Range Interpretation Comments A/G Ratio (test code = A/G Ratio) 0.7 1 0.7-1.6 [facility] HermannCHEM ZAENB9647-41-76 05:31:003.5[facility] HermannCHEM PANEL 2018-07-06 05:31:000.7[facility] HermannCHEM GJSIS7838-65-19 05:31:000.5[facility] HermannCHEM DRTTO0332-62-25 05:31:005.9[facility] HermannCHEM ECAPB3283-05-78 05:31:0095[facility] HermannCHEM LGFDW2612-06-36 05:31:002.4[facility] HermannCHEM JARCT0677-29-04 05:31:32175Retarcbm HermannCHEM SYPQD6670-70-42 05:31:0087 [facility] HermannCHEM OOZAH3591-73-77 05:31:000.2[facility] HermannELECTROLYTES 2018-07-06 05:31:0011.7[facility] YtwfnjmOVTKDOQBKOKO3887-94-09 05:31:96147 [facility] UkxltnxDSPSCOXDXGHX9258-70-34 05:31:0017[facility] HermannELECTROLYTES 2018-07-06 05:31:000.68[facility] SlrcgdaENJGYMKQAIFI2307-67-93 05:31:003.7 [facility] JnbjqdnTJHUJHDEKVMB1443-13-70 05:31:10580Nbyytymu HermannELECTROLYTES 2018-07-06 05:31:0025[facility] BsmuhmwANPVOFOIVBTL7930-57-87 05:31:53478Vosylcbs MmbawtwHXAWOJGSMJVB3087-56-41 05:31:20390Vaxncywf VirgaulERVLAPWIQKRW7573-77-16 05:31:007.8[facility] VtqtsjsZRKHTPKAAC6346-52-62 05:31:0013.7[facility] WIWIHJCSHM8281-47-71 05:31:0035.5[facility] NmpwxqaRALGEPYKHU4576-29-70 05:31:00 127[facility] ZzpkzhzJKSDBJXLHK1885-90-06 05:31:008.2[facility] HermannHEMATOLOGY 2018-07-06 05:31:006.3[facility] KhhgfyxLOCIHYDBLN5683-48-49 05:31:004.61[facility] ZnekgafUTAKNJRMZI7025-19-23 05:31:0014.9[facility] PgwmxnlMWRJKCSTBP2824-43-60 05:31:0042.1[facility] RpfwcfaTCDFAYYLVL8416-47-81 05:31:0091.2[facility] MIMYECTJYK3936-12-59 05:31:00 Test Item Value Reference Range Interpretation Comments MCH (test code = MCH) 32.4 pg 27.0-31.0 [facility] CwpeboiAEZHWYZYSP7224-20-56 05:31:001.2[facility] HermannHEMATOLOGY 2018-07-06 05:31:000.6[facility] NqcsooxQDQRAQKSIX5338-72-99 05:31:000.2[facility] JgvasbnEKPWYGMVQM0995-36-88 05:31:000.1[facility] MndexdbYKKLZBWQKZ4201-86-53 05:31:002.4[facility] MennaduWTYYTCPHZW6553-09-59 05:31:004.3[facility] UDCYGNRAHW9282-11-41 05:31:001.0[facility] XpqwubiQJNYTIPOPW0151-72-29 05:31:00 68.6[facility] KkwrlkvUYBANAQJDT3127-39-85 05:31:0018.8[facility] HermannHEMATOLOGY 2018-07-06 05:31:009.2[facility] HermannPARATHYROID KWWCXIB1236-15-42 05:31:001.10 [facility] HermannPARATHYROID MPJVRWN3179-11-93 05:31:001.10[facility] HermannLIPIDS 2018-07-04 20:41:0076[facility] TsoruzzBFNDMK1006-21-37 20:41:00 Test Item Value Reference Range Interpretation Comments VLDL (test code = VLDL) 25 1 [facility] ZpegmqnXZZFJF1114-14-00 20:41:89005Khuepsvl XfksxauIAATNP4477-91-51 20:41:0052[facility] XvqxiyfXIBEWV3832-39-20 20:41:12108Rrlqgleh HermannLIPIDS 2018-07-04 20:41:00 Test Item Value Reference Range Interpretation Comments CHD Risk (test code = CHD Risk) 2.94 1 4.00-7.30 [facility]annSPECIAL NHFDGLSKO3944-63-52 20:41:005.0[facility] HermannCHEM ORFUP7018-17-20 20:40:000.2[facility] HermannCHEM VJBMQ7267-66-08 20:40:68595 [facility]annCHEM NLGUG3422-55-70 20:40:003.8[facility] HermannCHEM PANEL 2018-07-04 20:40:000.9[facility] HermannCHEM XCKVS1636-00-57 20:40:00 Test Item Value Reference Range Interpretation Comments A/G Ratio (test code = A/G Ratio) 0.7 1 0.7-1.6 [facility]annCHEM FFDKQ2872-28-86 20:40:52700Riaylrmk HermannCHEM PANEL 2018-07-04 20:40:006.5[facility] HermannCHEM CJQHL4195-65-23 20:40:002.7[facility] HermannCHEM IJFBT7048-70-53 20:40:63997Llohkypa HermannCHEM UFWMO6703-26-96 20:40:00 Test Item Value Reference Range Interpretation Comments B/C Ratio (test code = B/C Ratio) 18 05-05 [facility]annDRUG MYRBSB1262-99-37 20:28:00Negative *NA*(07/04/18 3:28 PM) [facility]annDR[facility] XJHYHA0314-67-78 20:28:00Negative *NA*(07/04/18 3:28 PM) [facility] NIGDZZ2937-96-86 20:28:00Negative *NA*(07/04/18 3:28 PM) [facility]annDR[facility] XNAUFT2775-02-61 20:28:00Negative *NA*(07/04/18 3:28 PM) [facility]annDR[facility] YJPBGV3819-31-08 20:28:00Negative *NA*(07/04/18 3:28 PM) [facility]annDR[facility] RXQZUH7400-58-12 20:28:00Negative *NA*(07/04/18 3:28 PM) [facility]annDR[facility] HJPTMU1517-10-18 20:28:00See Note (07/04/18 3:28 PM)[facility]annDRUG BHIWPD6148-04-40 20:28:00Negative *NA*(07/04/18 3:28 PM)[facility]annURINE AND DNVQJ4026-57-75 20:28:00None Seen (07/04/18 3:28 PM)[facility] AND YOKOC7596-31-01 20:28:00None Seen (07/04/18 3:28 PM)[facility]ann[facility] AND XEGWY0635-02-13 20:28:00None Seen (07/04/18 3:28 PM)[facility] AND LRTXR9982-32-15 20:28:00None Seen (07/04/18 3:28 PM)[facility] AND HJNCK5360-43-99 20:28:00Negative *NA*(07/04/18 3:28 PM)[facility] AND FBEJM5874-38-87 20:28:00Negative *NA*(07/04/18 3:28 PM)[facility]ann[facility] AND TSAWS2717-80-82 20:28:00 Test Item Value Reference Range Interpretation Comments UA Spec Grav (test code = UA Spec 1.025 1 Grav) [facility] AND QFCSZ1772-78-64 20:28:00Clear (07/04/18 3:28 PM) [facility] VMRRI3721-78-05 20:28:001.0[facility] [id number] 20:28:00Negative (07/04/18 3:28 PM)[facility] [id number] 20:28:00 Test Item Value Reference Range Interpretation Comments UA pH (test code = UA pH) 6.0 1 5.0-8.0 [facility] [id number] 20:28:00Negative (07/04/18 3:28 PM) [facility] [id number] 20:28:00Negative (07/04/18 3:28 PM) [facility] [id number] 20:28:00Moderate *ABN*(07/04/18 3:28 PM)[facility] [id number] 20:28:00Yellow *NA*(07/04/18 3:28 PM)[facility] [id number] 19:44:000.7[facility]ARD[facility]AC [id number] 19:29:00<0.02[facility] [id number] 19:29:0086[facility] ObyymtkQINFCLRFGH2118-29-31 19:29:00 Test Item Value Reference Range Interpretation Comments Tot Cell Ct (test code = Tot Cell Ct) 100 1 [facility] UortesgCMKPDTKCTO4588-46-28 19:29:00Normal (07/04/18 2:29 PM)[facility] EajkmlvPSATKRAVOZ2714-43-97 19:29:00Normal (07/04/18 2:29 PM)[facility] HOWZZGDEFB5325-44-44 19:29:000.0[facility] DotvewjPEWQGGWIYD7335-38-37 19:29:000.0 [facility]WYSNCALCQT2553-01-71 19:29:00 Test Item Value Reference Range Interpretation Comments PTT (test code = PTT) 20.4 s 22.9-35.8 [facility]ToocxwtPUSMDMEITU1535-62-36 19:29:00 Test Item Value Reference Range Interpretation Comments INR (test code = INR) 0.93 1 0.85-1.17 [facility] HospitalCzggpruSPEIURYJSE0962-92-86 19:29:00 Test Item Value Reference Range Interpretation Comments PT (test code = PT) 12.5 s 12.0-14.7 [facility] ABD PARCENTESIS W/[id number] 14:43:00ULTRASOUND DIRECTED PARACENTESIS:CLINICAL HISTORY: Ascites. Cirrhosis.Written and [...] with removal of 4 Lof fluid.US ABDOMEN ZGCMAFI-[id number] 14:41:12ULTRASOUND ABDOMEN LIMITED:CLINICAL HISTORY: Ascites. Images were obtained over a quadrants of the abdomen for evaluation forascites volume. There is a moderate to large volume ascites.IMPRESSION:1. Moderate volume ascites.SP ABD PARCENTESIS W/[id number] 12:25:33Information: AscitesUltrasound guided paracentesisFollowing verbal and written [...] Ultrasound-guided paracentesis as described above.SP ABD PARCENTESIS W/[id number] 11:52:16Information: CirrhosisShunt paracentesisFollowing verbal and written consent [...] satisfactory condition.IMPRESSION:1. Ultrasound-guided paracentesis as described above.US [place] JIM, ABD/PELV [id number] 11:44:42EXAM: Abdominal Sonography with Hepatic Elastography.TECHNIQUE: Serial multiplanar grayscale imagingwith/without Dopplerinterrogation including color flow imaging and Doppler waveformanalysis. Hepaticelastography measurements were made utilizing [employer]opus[employer] Epiq 7 ultrasound unit (C5-1 multifrequency transducer).HISTORY: [...] 12.0 - 2.64+ Moderate - SevereUS ABDOMEN [id number] 11:19:24EXAM: Abdominal Sonography with Hepatic Elastography.TECHNIQUE: Serial multiplanar grayscale imagingwith/without Dopplerinterrogation including color flow imaging and Doppler waveformanalysis. Hepaticelastography measurements were made utilizing SenionLabq 7 ultrasound unit (C5-1 multifrequency tr ansducer).HISTORY: [...]
[2021-07-13 22:02] VITALS: BP 207/85; TEMP 96.1
== END ==
LOC: ER 15:50 → 2ND 16:19 → UNDOADMOB 20:54 → 2ND 22:23 → ERHOLD 22:23
PROC: 30233N1 Transfusion of Nonautologous Red Blood Cells into Peripheral Vein, Percutaneous Approach (ICD-10-PCS; principal; 2021-07-13)
DX: D64.9 Anemia, unspecified (principal); K74.60 Unspecified cirrhosis of liver; Z98.890 Other specified postprocedural states
CPT/HCPCS: 86850; 86900; 86901

== ENCOUNTER 2021-11-23 15:02 | Inpatient (IN) | payer OTHER ==
--- OUTSIDE RECORDS SUMMARY | 2021-11-23 15:21 | XMS REPORT | Continuity of Care Document ---
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 Discontinu ed, TATIANA, Blood Glucose < or = 70 mg/dL and patient is unable to swallow or has mental status changes. ceFAZolin 2020- No Slow IV Univ ers (ANCEF) 12-09 Push, PRN, ity o f injection 18:30: 18:30 Starting [place] as 18 :18 Fri Medical 12/09/20 at Branch 1230, Until 12/09/20 at 1230, [place] midazolam 2020- No IV Push, Uni vers (VERSED) 12-09 PRN, ity of injection 18:23: 18:23 Starting [place] 34 :34 Fri Medical 12/09/20 at Branch 1223, Until Discontinu ed, Routine FENTanyl PF 2020- No Slow IV Un dante (SUBLIMAZE 12-09 Push, PRN, it y of (PF)) 17:35: 18:23 Starting [place] injection 27 :40 Fri Medical 12/09/20 at Branch 1135, Until Discontinu ed, Routine [place] 2020-0 Yes Take by [employer] Fatty Acids 9-24 mouth. ity of (FISH OIL 17:08: [place] [facility] 42 [facility] ) 1,000 mg Branch Cap aspirin 81 2019-0 Yes 81mg Take 81 mg U nivers mg chewable 924 by mouth ity of tablet 17:08: daily. [address] Branch [place] 2020-0 Yes Take by Univer s Fatty Acids 9-24 mouth. ity of (FISH OIL 17:08: [place] [facility] [address] [place] [address] ) 1,000 mg Branch Cap aspirin 81 2020-0 Yes 81mg Take 81 mg U nivers mg chewable 9-24 by mouth ity of tablet 17:08: daily. [place] [address] Medical Branch [place] 2020-0 Yes Take by Univer s Fatty Acids 9-24 mouth. ity of (FISH OIL 17:08: [address] ) 1,000 mg Branch Cap aspirin 81 2020-0 Yes 81mg Take 81 mg U nivers mg chewable 9-24 by mouth ity of tablet 17:08: daily. [place] [address] Medical Branch [place] 2020-0 Yes Take by Univer s Fatty Acids 9-24 mouth. ity of (FISH OIL 17:08: [place] [facility] [address] [place] [address] ) 1,000 mg Branch Cap aspirin 81 2020-0 Yes 81mg Take 81 mg U nivers mg chewable 9-24 by mouth ity of tablet 17:08: daily. [place] [address] Medical Branch [place] 2020-0 Yes Take by Univer s Fatty Acids 9-24 mouth. ity of (FISH OIL 17:08: [address] ) 1,000 mg Branch Cap aspirin 81 2020-0 Yes 81mg Take 81 mg U nivers mg chewable 9-24 by mouth ity of tablet 17:08: daily. [place] [address] Medical Branch [place] 2020-0 Yes Take by Univer s Fatty Acids 9-24 mouth. ity of (FISH OIL 17:08: [place] [facility] [address] [place] [address] ) 1,000 mg Branch Cap aspirin 81 2020-0 Yes 81mg Take 81 mg U nivers mg chewable 9-24 by mouth ity of tablet 17:08: daily. [place] [address] Medical Branch [place] 2020-0 Yes Take by Univer s Fatty Acids 9-24 mouth. ity of (FISH OIL 17:08: [place] [facility] [address] [place] [address] ) 1,000 mg Branch Cap aspirin 81 2020-0 Yes 81mg Take 81 mg U nivers mg chewable 9-24 by mouth ity of tablet 17:08: daily. [place] [address] Medical Branch [place] 2020-0 Yes Take by Univer s Fatty Acids 9-24 mouth. ity of (FISH OIL 17:08: [place] [facility] [address] [place] [address] ) 1,000 mg Branch Cap aspirin 81 2020-0 Yes 81mg Take 81 mg U nivers mg chewable 9-24 by mouth ity of tablet 17:08: daily. [place] [address] Medical Branch [place] 2020-0 Yes Take by Univer s Fatty Acids 9-24 mouth. ity of (FISH OIL 17:08: [address] ) 1,000 mg Branch Cap aspirin 81 2020-0 Yes 81mg Take 81 mg U nivers mg chewable 9-24 by mouth ity of tablet 17:08: daily. [place] [address] Medical Branch [place] 2020-0 Yes Take by Univer s Fatty Acids 9-24 mouth. ity of (FISH OIL 17:08: [place] [facility] [address] [place] [address] ) 1,000 mg Branch Cap aspirin 81 2020-0 Yes 81mg Take 81 mg U nivers mg chewable 9-24 by mouth ity of tablet 17:08: daily. [place] [address] Medical Branch [place] 2020-0 Yes Take by Univer s Fatty Acids 9-24 mouth. ity of (FISH OIL 17:08: [address] ) 1,000 mg Branch Cap aspirin 81 2020-0 Yes 81mg Take 81 mg U nivers mg chewable 9-24 by mouth ity of tablet 17:08: daily. [place] [address] Medical Branch [place] 2020-0 Yes Take by Univer s Fatty Acids 9-24 mouth. ity of (FISH OIL 17:08: [address] ) 1,000 mg Branch Cap aspirin 81 2020-0 Yes 81mg Take 81 mg U nivers mg chewable 9-24 by mouth ity of tablet 17:08: daily. [place] [address] Medical Branch [place] 2020-0 Yes Take by Univer s Fatty Acids 9-24 mouth. ity of (FISH OIL 17:08: [address] ) 1,000 mg Branch Cap aspirin 81 2020-0 Yes 81mg Take 81 mg U nivers mg chewable 9-24 by mouth ity of tablet 17:08: daily. [place] [address] Medical Branch [place] 2020-0 Yes Take by Univer s Fatty Acids 9-24 mouth. ity of (FISH OIL 17:08: [address] ) 1,000 mg Branch Cap aspirin 81 2020-0 Yes 81mg Take 81 mg U nivers mg chewable 9-24 by mouth ity of tablet 17:08: daily. [place] [address] Medical Branch [place] 2020-0 Yes Take by Univer s Fatty Acids 9-24 mouth. ity of (FISH OIL 17:08: [address] ) 1,000 mg Branch Cap aspirin 81 2020-0 Yes 81mg Take 81 mg U nivers mg chewable 9-24 by mouth ity of tablet 17:08: daily. [place] [address] Medical Branch [place] 2020-0 Yes Take by Univer s Fatty Acids 9-24 mouth. ity of (FISH OIL 17:08: [address] ) 1,000 mg Branch Cap aspirin 81 2020-0 Yes 81mg Take 81 mg U nivers mg chewable 9-24 by mouth ity of tablet 17:08: daily. [place] [address] Medical Branch [place] 2020-0 Yes Take by Univer s Fatty Acids 9-24 mouth. ity of (FISH OIL 17:08: [address] ) 1,000 mg Branch Cap aspirin 81 2020-0 Yes 81mg Take 81 mg U nivers mg chewable 9-24 by mouth ity of tablet 17:08: daily. [place] [address] Medical Branch [place] 2020-0 Yes Take by Univer s Fatty Acids 9-24 mouth. ity of (FISH OIL 17:08: [address] ) 1,000 mg Branch Cap aspirin 81 2020-0 Yes 81mg Take 81 mg U nivers mg chewable 9-24 by mouth ity of tablet 17:08: daily. [place] [address] Medical Branch [place] 2020-0 Yes Take by Univer s Fatty Acids 9-24 mouth. ity of (FISH OIL 17:08: [address] ) 1,000 mg Branch Cap aspirin 81 2020-0 Yes 81mg Take 81 mg U nivers mg chewable 9-24 by mouth ity of tablet 17:08: daily. [place] [address] Medical Branch [place] 2020-0 Yes Take by Univer s Fatty Acids 9-24 mouth. ity of (FISH OIL 17:08: [address] ) 1,000 mg Branch Cap aspirin 81 2020-0 Yes 81mg Take 81 mg U nivers mg chewable 9-24 by mouth ity of tablet 17:08: daily. [place] [address] Medical Branch [place] 2020-0 Yes Take by Univer s Fatty Acids 9-24 mouth. ity of (FISH OIL 17:08: [address] ) 1,000 mg Branch Cap aspirin 81 2020-0 Yes 81mg Take 81 mg U nivers mg chewable 9-24 by mouth ity of tablet 17:08: daily. [address] [place] 2020-0 Yes Take by [employer] Fatty Acids 9-24 mouth. ity of (FISH OIL 17:08: [address] ) 1,000 mg Branch Cap aspirin 81 2020-0 Yes 81mg Take 81 mg U nivers mg chewable 9-24 by mouth ity of tablet 17:08: daily. [address] [place] 2020-0 [facility] mouth. ity of (FISH OIL 17:08: [address] ) 1,000 mg Branch Cap aspirin 81 2020-0 Yes 81mg Take 81 mg U nivers mg chewable 9-24 by mouth ity of tablet 17:08: daily. [address] contrast 2020-0 2020- No Intravenou Un dante previously 06-14 s, ONCE, 1 it y of administere 21:15: 18:48 dose, Tue [place] d 0 mL 00 :00 06/14/20 at [facility] 1615, [place] Routine iohexol 2020-0 2020- No 100mL 100 mL, Unive rs (OMNIPAQUE 06-14 Intravenou it y of 350 21:00: 18:48 s, ONCE, 1 [place] BULK-100 00 :00 dose, Tue Medica l mL) 06/14/20 at Branch injection 1600, 100 mL Routine [place] 2020-0 Yes Take by [employer] Fatty Acids 3-03 mouth. ity of (FISH OIL 19:02: [place] [facility] 16 [facility] ) 1,000 mg Branch Cap [place] 2020-0 Yes Take by [employer] Fatty Acids 3-03 mouth. ity of (FISH OIL 19:02: [place] [facility] 16 [facility] ) 1,000 mg Branch Cap [place] 2020-0 Yes Take by [employer] Fatty Acids 3-03 mouth. ity of (FISH OIL 19:02: [place] [facility] 16 [facility] ) 1,000 mg Branch Cap [place] 2020-0 Yes Take by Univer s Fatty Acids 3-03 mouth. ity of (FISH OIL 19:02: [place] [facility] 16 [facility] ) 1,000 mg Branch Cap [place] 2020-0 Yes Take by Univer s Fatty Acids 3-03 mouth. ity of (FISH OIL 19:02: [place] [facility] 16 [facility] ) 1,000 mg Branch Cap [place] 2020-0 Yes Take by Univer s Fatty Acids 3-03 mouth. ity of (FISH OIL 19:02: [place] [facility] 16 Medical ) 1,000 mg Branch Cap [place] 2020-0 [facility] mouth. ity of (FISH OIL 19:02: [place] [facility] 16 Medical ) 1,000 mg Branch Cap [place] 2020-0 Yes [facility]-03 mouth. ity of (FISH OIL 19:02: [place] [facility] 16 Medical ) 1,000 mg Branch Cap [place] 2020-0 Yes [facility] 3-03 mouth. ity of (FISH OIL 19:02: [place] [facility] 16 Medical ) 1,000 mg Branch Cap [place] 2020-0 Yes Take by Univer s Fatty Acids 3-03 mouth. ity of (FISH OIL 19:02: [place] [facility] 16 Medical ) 1,000 mg Branch Cap [place] 2020-0 Yes [facility]-03 mouth. ity of (FISH OIL 19:02: [place] [facility] 16 Medical ) 1,000 mg Branch Cap [place] 2020-0 Yes Take by [facility] s Fatty Acids 3-03 mouth. ity of (FISH OIL 19:02: [place] [facility] 16 Medical ) 1,000 mg Branch Cap [place] 2020-0 Yes [facility] 3-03 mouth. ity of (FISH OIL 19:02: [place] [facility] 16 Medical ) 1,000 mg Branch Cap [place] 2020-0 Yes [facility] 3-03 mouth. ity of (FISH OIL 19:02: [place] [facility] 16 Medical ) 1,000 mg Branch Cap [place] 2020-0 Yes Take by [facility] Fatty Acids 3-03 mouth. ity of (FISH OIL 19:02: [place] [facility] 16 Medical ) 1,000 mg Branch Cap [place] 2020-0 Yes [facility] 3-03 mouth. ity of (FISH OIL 19:02: [place] [facility] 16 Medical ) 1,000 mg Branch Cap [place] 2020-0 Yes [facility] 3-03 mouth. ity of (FISH OIL 19:02: [place] [facility] 16 Medical ) 1,000 mg Branch Cap [place] 2020-0 Yes Take [facility] Fat[facility] 3-03 mouth. ity of (FISH OIL 19:02: [place] [facility] 16 Medical ) 1,000 mg Branch Cap [place] 2020-0 Yes Take [facility] Fat[facility] 3-03 mouth. ity of (FISH OIL 19:02: [place] [facility] 16 Medical ) 1,000 mg Branch Cap [place] 2020-0 Yes Take [facility] Fat[facility]ids 3-03 mouth. ity of (FISH OIL 19:02: [place] [facility] 16 Medical ) 1,000 mg Branch Cap [place] 2020-0 Yes Take [facility] Fat[facility]ids 3-03 mouth. ity of (FISH OIL 19:02: [place] [facility] 16 Medical ) 1,000 mg Branch Cap [place] 2020-0 Yes Take [facility] Fat[facility] 3-03 mouth. ity of (FISH OIL 19:02: [place] [facility] 16 Medical ) 1,000 mg Branch Cap [place] 2020-0 Yes Take [facility] Fat[facility] 3-03 mouth. ity of (FISH OIL 19:02: [place] [facility] 16 Medical ) 1,000 mg Branch Cap [place] 2020-0 Yes Take [facility] Fat[facility]ids 3-03 mouth. ity of (FISH OIL 19:02: [place] [facility] 16 Medical ) 1,000 mg Branch Cap [place] 2020-0 Yes Take [facility] Fat[facility]ids 3-03 mouth. ity of (FISH OIL 19:02: [place] [facility] 16 Medical ) 1,000 mg Branch Cap [place]3 2020-0 Yes Take by [facility] Fatty Acids 3-03 mouth. ity of (FISH OIL 19:02: [place] [facility] 16 Medical ) 1,000 mg Branch Cap [place]3 2020-0 Yes Take by [facility] Fatty Acids 3-03 mouth. ity of (FISH OIL 19:02: [place] [facility] 16 Medical ) 1,000 mg Branch Cap [place] 2020-0 Yes Take by [facility] s Fatty Acids 3-03 mouth. ity of (FISH OIL 19:02: [place] [facility] 16 Medical ) 1,000 mg Branch Cap [place] 2020-0 Yes [facility] 3-03 mouth. ity of (FISH OIL 19:02: [place] [facility] 16 Medical ) 1,000 mg Branch Cap [place] 2020-0 Yes Take [facility] Fat[facility] Acids 3-03 mouth. ity of (FISH OIL 19:02: [place] [facility] 16 Medical ) 1,000 mg Branch Cap lisinopril 2019-1 Yes 40mg Take 4 Unive rs 10 mg 1-25 tablets by ity of tablet 00:00: mouth [place] 00 daily. Medical Branch lisinopril 2018-11 Yes 40mg Take 4 Unive rs 10 mg 1-25 tablets by ity of tablet 00:00: mouth [place] 00 daily. Medical Branch lisinopril 2018-11 Yes 40mg Take 4 Unive rs 10 mg 1-25 tablets by ity of tablet 00:00: mouth [place] 00 daily. Medical Branch lisinopril 2018-11 Yes 40mg Take 4 Unive rs 10 mg 1-25 tablets by ity of tablet 00:00: mouth [place] 00 daily. Medical Branch lisinopril 2018-11 Yes 40mg Take 4 Unive rs 10 mg 1-25 tablets by ity of tablet 00:00: mouth [place] 00 daily. Medical Branch lisinopril 2018-11 Yes 40mg Take 4 Unive rs 10 mg 1-25 tablets by ity of tablet 00:00: mouth [place] 00 daily. Medical Branch lisinopril 2018-11 Yes 40mg Take 4 Unive rs 10 mg 1-25 tablets by ity of tablet 00:00: mouth [place] 00 daily. Medical Branch lisinopril 2018-11 Yes 40mg Take 4 Unive rs 10 mg 1-25 tablets by ity of tablet 00:00: mouth [place] 00 daily. Medical Branch lisinopril 2018-11 Yes 40mg Take 4 Unive rs 10 mg 1-25 tablets by ity of tablet 00:00: mouth [place] 00 daily. Medical Branch lisinopril 2018-11 Yes 40mg Take 4 Unive rs 10 mg 1-25 tablets by ity of tablet 00:00: mouth [place] 00 daily. Medical Branch lisinopril 2018-11 Yes 40mg Take 4 Unive rs 10 mg 1-25 tablets by ity of tablet 00:00: mouth [place] 00 daily. Medical Branch lisinopril 2018-11 Yes 40mg Take 4 Unive rs 10 mg 1-25 tablets by ity of tablet 00:00: mouth [place] 00 daily. Medical Branch lisinopril 2018-11 Yes 40mg Take 4 Unive rs 10 mg 1-25 tablets by ity of tablet 00:00: mouth [place] 00 daily. Medical Branch lisinopril 2018-11 Yes 40mg Take 4 Unive rs 10 mg 1-25 tablets by ity of tablet 00:00: mouth [place] 00 daily. Medical Branch lisinopril 2018-11 Yes 40mg Take 4 Unive rs 10 mg 1-25 tablets by ity of tablet 00:00: mouth [place] 00 daily. Medical Branch lisinopril 2018-11 Yes 40mg Take 4 Unive rs 10 mg 1-25 tablets by ity of tablet 00:00: mouth [place] 00 daily. Medical Branch lisinopril 2018-11 Yes 40mg Take 4 Unive rs 10 mg 1-25 tablets by ity of tablet 00:00: mouth [place] 00 daily. Medical Branch lisinopril 2018-11 Yes 40mg Take 4 Unive rs 10 mg 1-25 tablets by ity of tablet 00:00: mouth [place] 00 daily. Medical Branch lisinopril 2018-11 Yes 40mg Take 4 Unive rs 10 mg 1-25 tablets by ity of tablet 00:00: mouth [place] 00 daily. Medical Branch lisinopril 2018-11 Yes 40mg Take 4 Unive rs 10 mg 1-25 tablets by ity of tablet 00:00: mouth [place] 00 daily. Medical Branch lisinopril 2018-11 Yes 40mg Take 4 Unive rs 10 mg 1-25 tablets by ity of tablet 00:00: mouth [place] 00 daily. Medical Branch lisinopril 2018-11 Yes 40mg Take 4 Unive rs 10 mg 1-25 tablets by ity of tablet 00:00: mouth [place] 00 daily. Medical Branch lisinopril 2018-11 Yes 40mg Take 4 Unive rs 10 mg 1-25 tablets by ity of tablet 00:00: mouth [place] 00 daily. Medical Branch lisinopril 2018-11 Yes 40mg Take 4 Unive rs 10 mg 1-25 tablets by ity of tablet 00:00: mouth [place] 00 daily. Medical Branch lisinopril 2018-11 Yes 40mg Take 4 Unive rs 10 mg 1-25 tablets by ity of tablet 00:00: mouth [place] 00 daily. Medical Branch lisinopril 2018-11 Yes 40mg Take 4 Unive rs 10 mg 1-25 tablets by ity of tablet 00:00: mouth [place] 00 daily. Medical Branch lisinopril 2018-11 Yes 40mg Take 4 Unive rs 10 mg 1-25 tablets by ity of tablet 00:00: mouth [place] 00 daily. Medical Branch lisinopril 2018-11 Yes 40mg Take 4 Unive rs 10 mg 1-25 tablets by ity of tablet 00:00: mouth [place] 00 daily. Medical Branch lisinopril 2018-11 Yes 40mg Take 4 Unive rs 10 mg 1-25 tablets by ity of tablet 00:00: mouth [place] 00 daily. Medical Branch lisinopril 2018-11 Yes 40mg Take 4 Unive rs 10 mg 1-25 tablets by ity of tablet 00:00: mouth [place] 00 daily. Medical Branch lisinopril 2018-11 Yes 40mg Take 4 Unive rs 10 mg 1-25 tablets by ity of tablet 00:00: mouth [place] 00 daily. Medical Branch lisinopril 2018-11 Yes 40mg Take 4 Unive rs 10 mg 1-25 tablets by ity of tablet 00:00: mouth [place] 00 daily. Medical Branch lisinopril 2018-11 Yes 40mg Take 4 Unive rs 10 mg 1-25 tablets by ity of tablet 00:00: mouth [place] 00 daily. Medical Branch lisinopril 2018-11 Yes 40mg Take 4 Unive rs 10 mg 1-25 tablets by ity of tablet 00:00: mouth [place] 00 daily. Medical Branch lisinopril 2018-11 Yes 40mg Take 4 Unive rs 10 mg 1-25 tablets by ity of tablet 00:00: mouth [place] 00 daily. Medical Branch lisinopril 2018-11 Yes 40mg Take 4 Unive rs 10 mg 1-25 tablets by ity of tablet 00:00: mouth [place] 00 daily. Medical Branch lisinopril 2018-11 Yes 40mg Take 4 Unive rs 10 mg 1-25 tablets by ity of tablet 00:00: mouth [place] 00 daily. Medical Branch lisinopril 2018-11 Yes 40mg Take 4 Unive rs 10 mg 1-25 tablets by ity of tablet 00:00: mouth [place] 00 daily. Medical Branch lisinopril 2018-11 Yes 40mg Take 4 Unive rs 10 mg 1-25 tablets by ity of tablet 00:00: mouth [place] 00 daily. Medical Branch lisinopril 2018-11 Yes 40mg Take 4 Unive rs 10 mg 1-25 tablets by ity of tablet 00:00: mouth [place] 00 daily. Medical Branch lisinopril 2018-11 Yes 40mg Take 4 Unive rs 10 mg 1-25 tablets by ity of tablet 00:00: mouth [place] 00 daily. Medical Branch lisinopril 2018-11 Yes 40mg Take 4 Unive rs 10 mg 1-25 tablets by ity of tablet 00:00: mouth [place] 00 daily. Medical Branch lisinopril 2018-11 Yes 40mg Take 4 Unive rs 10 mg 1-25 tablets by ity of tablet 00:00: mouth [place] 00 daily. Medical Branch lisinopril 2018-11 Yes 40mg Take 4 Unive rs 10 mg 1-25 tablets by ity of tablet 00:00: mouth [place] 00 daily. Medical Branch lisinopril 2018-11 Yes 40mg Take 4 Unive rs 10 mg 1-25 tablets by ity of tablet 00:00: mouth [place] 00 daily. Medical Branch lisinopril 2018-11 Yes 40mg Take 4 Unive rs 10 mg 1-25 tablets by ity of tablet 00:00: mouth [place] 00 daily. Medical Branch lisinopril 2018-11 Yes 40mg Take 4 Unive rs 10 mg 1-25 tablets by ity of tablet 00:00: mouth [place] 00 daily. Medical Branch lisinopril 2018-11 Yes 40mg Take 4 Unive rs 10 mg 1-25 tablets by ity of tablet 00:00: mouth [place] 00 daily. Medical Branch lisinopril 2018-11 Yes 40mg Take 4 Unive rs 10 mg 1-25 tablets by ity of tablet 00:00: mouth [place] 00 daily. Medical Branch lisinopril 2018-11 Yes 40mg Take 4 Unive rs 10 mg 1-25 tablets by ity of tablet 00:00: mouth [place] 00 daily. Medical Branch lisinopril 2018-11 Yes 40mg Take 4 Unive rs 10 mg 1-25 tablets by ity of tablet 00:00: mouth [place] 00 daily. Medical Branch lisinopril 2018-11 Yes 40mg Take 4 Unive rs 10 mg 1-25 tablets by ity of tablet 00:00: mouth [place] 00 daily. Medical Branch lisinopril 2018-11 Yes 40mg Take 4 Unive rs 10 mg 1-25 tablets by ity of tablet 00:00: mouth [place] 00 daily. Medical Branch lisinopril 2018-11 Yes 40mg Take 4 Unive rs 10 mg 1-25 tablets by ity of tablet 00:00: mouth [place] 00 daily. Medical Branch lisinopril 2018-11 Yes 40mg Take 4 Unive rs 10 mg 1-25 tablets by ity of tablet 00:00: mouth [place] 00 daily. Medical Branch lisinopril 2018-11 Yes 40mg Take 4 Unive rs 10 mg 1-25 tablets by ity of tablet 00:00: mouth [place] 00 daily. Medical Branch lisinopril 2018-11 Yes 40mg Take 4 Unive rs 10 mg 1-25 tablets by ity of tablet 00:00: mouth [place] 00 daily. Medical Branch lisinopril 2018-11 Yes 40mg Take 4 Unive rs 10 mg 1-25 tablets by ity of tablet 00:00: mouth [place] 00 daily. Medical Branch lisinopril 2018-11 Yes 40mg Take 4 Unive rs 10 mg 1-25 tablets by ity of tablet 00:00: mouth [place] 00 daily. Medical Branch lisinopril 2018-11 Yes 40mg Take 4 Unive rs 10 mg 1-25 tablets by ity of tablet 00:00: mouth [place] 00 daily. Medical Branch lisinopril 2018-11 Yes 40mg Take 4 Unive rs 10 mg 1-25 tablets by ity of tablet 00:00: mouth [place] 00 daily. Medical Branch lisinopril 2018-11 Yes 40mg Take 4 Unive rs 10 mg 1-25 tablets by ity of tablet 00:00: mouth [place] 00 daily. Medical Branch lisinopril 2018-11 Yes 40mg Take 4 Unive rs 10 mg 1-25 tablets by ity of tablet 00:00: mouth [place] 00 daily. Medical Branch lisinopril 2018-11 Yes 40mg Take 4 Unive rs 10 mg 1-25 tablets by ity of tablet 00:00: mouth [place] 00 daily. Medical Branch lisinopril 2018-11 Yes 40mg Take 4 Unive rs 10 mg 1-25 tablets by ity of tablet 00:00: mouth [place] 00 daily. Medical Branch lisinopril 2018-11 Yes 40mg Take 4 Unive rs 10 mg 1-25 tablets by ity of tablet 00:00: mouth [place] 00 daily. Medical Branch lisinopril 2018-11 Yes 40mg Take 4 Unive rs 10 mg 1-25 tablets by ity of tablet 00:00: mouth [place] 00 daily. Medical Branch lisinopril 2018-11 Yes 40mg Take 4 Unive rs 10 mg 1-25 tablets by ity of tablet 00:00: mouth [place] 00 daily. Medical Branch lisinopril 2018-11 Yes 40mg Take 4 Unive rs 10 mg 1-25 tablets by ity of tablet 00:00: mouth [place] 00 daily. Medical Branch lisinopril 2018-11 Yes 40mg Take 4 Unive rs 10 mg 1-25 tablets by ity of tablet 00:00: mouth [place] 00 daily. Medical Branch lisinopril 2018-11 Yes 40mg Take 4 Unive rs 10 mg 1-25 tablets by ity of tablet 00:00: mouth [place] 00 daily. Medical Branch lisinopril 2018-11 Yes 40mg Take 4 Unive rs 10 mg 1-25 tablets by ity of tablet 00:00: mouth [place] 00 daily. Medical Branch lisinopril 2018-11 Yes 40mg Take 4 Unive rs 10 mg 1-25 tablets by ity of tablet 00:00: mouth [place] 00 daily. Medical Branch lisinopril 2018-11 Yes 40mg Take 4 Unive rs 10 mg 1-25 tablets by ity of tablet 00:00: mouth [place] 00 daily. Medical Branch lisinopril 2018-11 Yes 40mg Take 4 Unive rs 10 mg 1-25 tablets by ity of tablet 00:00: mouth [place] 00 daily. Medical Branch lisinopril 2018-11 Yes 40mg Take 4 Unive rs 10 mg 1-25 tablets by ity of tablet 00:00: mouth [place] 00 daily. Medical Branch lisinopril 2018-11 Yes 40mg Take 4 Unive rs 10 mg 1-25 tablets by ity of tablet 00:00: mouth [place] 00 daily. Medical Branch lisinopril 2018-11 Yes 40mg Take 4 Unive rs 10 mg 1-25 tablets by ity of tablet 00:00: mouth [place] 00 daily. Medical Branch lisinopril 2018-11 Yes 40mg Take 4 Unive rs 10 mg 1-25 tablets by ity of tablet 00:00: mouth [place] 00 daily. Medical Branch lisinopril 2018-11 Yes 40mg Take 4 Unive rs 10 mg 1-25 tablets by ity of tablet 00:00: mouth [place] 00 daily. Medical Branch Atorvastati Atorvastati Yes Dianelys [address] [facility] Calcium n Calcium 7-24 [facility] Clopidogrel Clopidogrel Yes Dianely[facility] [address] [facility] Bisulfate Bisulfate 7-24 [facility] Lisinopril Lisinopril 2018-0 Yes Dianely[facility] [address] [facility] 7[facility]24 [facility] clopidogrel 2018-0 Yes 75mg Take 75 mg [facility] (PLAVIX) 75 6-17 by mouth ity of mg tablet 18:28: daily. [place] [id number] Medical Branch atorvastati 0 Yes 40mg Take 40 mg Univers n 40 mg 6-17 by mouth ity of tablet 18:28: at [place] [address] bedtime. [facility] clopidogrel 2018-0 Yes 75mg Take 75 mg [facility] (PLAVIX) 75 6-17 by mouth ity of mg tablet 18:28: daily. [place] [address] [facility] atorvastati Yes 40mg Take 40 mg [facility] n 40 mg 6-17 by mouth ity of tablet 18:28: at [place] [address] bedtime. [facility] clopidogrel 2018- Yes 75mg Take 75 mg [facility] (PLAVIX) 75 6-17 by mouth ity of mg tablet 18:28: daily. [place] [address] [facility] atorvastati Yes 40mg Take 40 mg [facility] n 40 mg 6-17 by mouth ity of tablet 18:28: at [place] [address] bedtime. [facility] clopidogrel 2019-0 Yes 75mg Take 75 mg [facility] (PLAVIX) 75 6-17 by mouth ity of mg tablet 18:28: daily. [facility] atorvastati 2018-0 Yes 40mg Take 40 mg [facility] n 40 mg 6-17 by mouth ity of tablet 18:28: at [place] [address] bedtime. [facility] clopidogrel 2019-0 Yes 75mg Take 75 mg [facility] (PLAVIX) 75 6-17 by mouth ity of mg tablet 18:28: daily. [place] [address] [facility] atorvastati 2018-0 Yes 40mg Take 40 mg [facility] n 40 mg 6-17 by mouth ity of tablet 18:28: at [place] [address] bedtime. [facility] clopidogrel 2019-0 Yes 75mg Take 75 mg [facility] (PLAVIX) 75 6-17 by mouth ity of mg tablet 18:28: daily. [place] [address] [facility] atorvastati 2018-0 Yes 40mg Take 40 mg [facility] n 40 mg 6-17 by mouth ity of tablet 18:28: at [place] [address] bedtime. [facility] clopidogrel 2019-0 Yes 75mg Take 75 mg [facility] (PLAVIX) 75 6-17 by mouth ity of mg tablet 18:28: daily. [place] [address] [facility] atorvastati 2019-0 Yes 40mg Take 40 mg [facility] n 40 mg 6-17 by mouth ity of tablet 18:28: at [place] [address] bedtime. [facility] aspirin 81 2019-0 Yes 81mg Take 81 mg U nivers mg chewable 6-17 by mouth ity of tablet 18:28: daily. [place] [address] [facility] [place]-3 2019-0 Yes Take by [employer] Fatty Acids 6-17 mouth. ity of (FISH OIL 18:28: [address] ) 1,000 mg Branch Cap clopidogrel 2019-0 Yes 75mg Take 75 mg [facility] (PLAVIX) 75 6-17 by mouth ity of mg tablet 18:28: daily. [address] Branch atorvastati Yes 40mg Take 40 mg [facility] n 40 mg 6-17 by mouth ity of tablet 18:28: at [place] [address] bedtime. [facility] aspirin 81 2019-0 Yes 81mg Take 81 mg U nivers mg chewable 6-17 by mouth ity of tablet 18:28: daily. [place] [address] [facility] [place]-3 2019-0 Yes Take by [employer] Fatty Acids 6-17 mouth. ity of (FISH OIL 18:28: [address] ) 1,000 mg Branch Cap clopidogrel 2019-0 Yes 75mg Take 75 mg [facility] (PLAVIX) 75 6-17 by mouth ity of mg tablet 18:28: daily. [place] [address] [facility] atorvastati 20190 Yes 40mg Take 40 mg [facility] n 40 mg 6-17 by mouth ity of tablet 18:28: at [place] [address] bedtime. [facility] aspirin 81 2019-0 Yes 81mg Take 81 mg U nivers mg chewable 6-17 by mouth ity of tablet 18:28: daily. [address] [facility] [place]-3 2019-0 Yes Take by [facility] Fatty Acids 6-17 mouth. ity of (FISH OIL 18:28: [address] ) 1,000 mg Branch Cap clopidogrel 2019-0 Yes 75mg Take 75 mg [facility] (PLAVIX) 75 6-17 by mouth ity of mg tablet 18:28: daily. [place] [address] [facility] atorvastati 2019 Yes 40mg Take 40 mg [facility] n 40 mg 6-17 by mouth ity of tablet 18:28: at [place] [address] bedtime. [facility] aspirin 81 2019-0 Yes 81mg Take 81 mg U nivers mg chewable 6-17 by mouth ity of tablet 18:28: daily. [address] [facility] [place]-3 2019- Yes Take by [facility] Fatty Acids 6-17 mouth. ity of (FISH OIL 18:28: [address] ) 1,000 mg Branch Cap clopidogrel 2019-0 Yes 75mg Take 75 mg [facility] (PLAVIX) 75 6-17 by mouth ity of mg tablet 18:28: daily. [address] Branch atorvastati 2019 Yes 40mg Take 40 mg [facility] n 40 mg 6-17 by mouth ity of tablet 18:28: at [place] [address] bedtime. [facility] aspirin 81 2018-0 Yes 81mg Take 81 mg U nivers mg chewable 6-17 by mouth ity of tablet 18:28: daily. [address] [facility] [place]-3 2019 Yes Take by [facility] s Fatty Acids 6-17 mouth. ity of (FISH OIL 18:28: [address] ) 1,000 mg Branch Cap clopidogrel 2019-0 Yes 75mg Take 75 mg [facility] (PLAVIX) 75 6-17 by mouth ity of mg tablet 18:28: daily. [address] Branch atorvastati 2019- Yes 40mg Take 40 mg [facility] n 40 mg 6-17 by mouth ity of tablet 18:28: at [place] [address] bedtime. [facility] aspirin 81 2019-0 Yes 81mg Take 81 mg U nivers mg chewable 6-17 by mouth ity of tablet 18:28: daily. [address] [facility] [place]-3 2019-0 Yes Take by [facility] s Fatty Acids 6-17 mouth. ity of (FISH OIL 18:28: [address] ) 1,000 mg Branch Cap clopidogrel 2019-0 Yes 75mg Take 75 mg [facility] (PLAVIX) 75 6-17 by mouth ity of mg tablet 18:28: daily. [address] Branch atorvastati 2019- Yes 40mg Take 40 mg [facility] n 40 mg 6-17 by mouth ity of tablet 18:28: at [place] [address] bedtime. [facility] aspirin 81 2019-0 Yes 81mg Take 81 mg U nivers mg chewable 6-17 by mouth ity of tablet 18:28: daily. [address] [facility] [place]-3 2019-0 Yes Take by [facility] s Fatty Acids 6-17 mouth. ity of (FISH OIL 18:28: [address] ) 1,000 mg Branch Cap clopidogrel 2019-0 Yes 75mg Take 75 mg [facility] (PLAVIX) 75 6-17 by mouth ity of mg tablet 18:28: daily. [address] Branch atorvastati Yes 40mg Take 40 mg [facility] n 40 mg 6-17 by mouth ity of tablet 18:28: at [place] [address] bedtime. [facility] aspirin 81 0 Yes 81mg Take 81 mg U nivers mg chewable 6-17 by mouth ity of tablet 18:28: daily. [address] [facility] [place]-3 2019-0 Yes Take by [facility] s Fatty Acids 6-17 mouth. ity of (FISH OIL 18:28: [address] ) 1,000 mg Branch Cap clopidogrel Yes 75mg Take 75 mg [facility] (PLAVIX) 75 6-17 by mouth ity of mg tablet 18:28: daily. [address] Branch atorvastati 0 Yes 40mg Take 40 mg [facility] n 40 mg 6-17 by mouth ity of tablet 18:28: at [place] [address] bedtime. [facility] aspirin 81 0 Yes 81mg Take 81 mg U nivers mg chewable 6-17 by mouth ity of tablet 18:28: daily. [address] [facility] [place] 2018- [facility]. ity of (FISH OIL 18:28: [address] ) 1,000 mg Branch Cap clopidogrel 2019-0 Yes 75mg Take 75 mg [facility] (PLAVIX) 75 6-17 by mouth ity of mg tablet 18:28: daily. [address] Branch atorvastati 2019-0 Yes 40mg Take 40 mg [facility] n 40 mg 6-17 by mouth ity of tablet 18:28: at [place] [address] bedtime. [facility] aspirin 81 2019-0 Yes 81mg Take 81 mg U nivers mg chewable 6-17 by mouth ity of tablet 18:28: daily. [place] [address] [facility] clopidogrel 2019-0 Yes 75mg Take 75 mg [facility] (PLAVIX) 75 6-17 by mouth ity of mg tablet 18:28: daily. [place] [address] [facility] atorvastati 2019-0 Yes 40mg Take 40 mg [facility] n 40 mg 6-17 by mouth ity of tablet 18:28: at [place] [address] bedtime. [facility] aspirin 81 2019-0 Yes 81mg Take 81 mg U nivers mg chewable 6-17 by mouth ity of tablet 18:28: daily. [place] [address] [facility] clopidogrel 2019-0 Yes 75mg Take 75 mg [facility] (PLAVIX) 75 6-17 by mouth ity of mg tablet 18:28: daily. [place] [address] [facility] atorvastati 2019-0 Yes 40mg Take 40 mg [facility] n 40 mg 6-17 by mouth ity of tablet 18:28: at [place] [address] bedtime. [facility] aspirin 81 2019-0 Yes 81mg Take 81 mg U nivers mg chewable 6-17 by mouth ity of tablet 18:28: daily. [place] [address] [facility] clopidogrel 2019-0 Yes 75mg Take 75 mg [facility] (PLAVIX) 75 6-17 by mouth ity of mg tablet 18:28: daily. [place] [address] [facility] atorvastati 2019-0 Yes 40mg Take 40 mg [facility] n 40 mg 6-17 by mouth ity of tablet 18:28: at [place] [address] bedtime. [facility] aspirin 81 2019-0 Yes 81mg Take 81 mg U nivers mg chewable 6-17 by mouth ity of tablet 18:28: daily. [place] [address] [facility] clopidogrel 2019-0 Yes 75mg Take 75 mg [facility] (PLAVIX) 75 6-17 by mouth ity of mg tablet 18:28: daily. [place] [address] [facility] atorvastati 2019-0 Yes 40mg Take 40 mg [facility] n 40 mg 6-17 by mouth ity of tablet 18:28: at [place] [address] bedtime. [facility] aspirin 81 2019-0 Yes 81mg Take 81 mg U nivers mg chewable 6-17 by mouth ity of tablet 18:28: daily. [place] [address] [facility] clopidogrel 2019-0 Yes 75mg Take 75 mg [facility] (PLAVIX) 75 6-17 by mouth ity of mg tablet 18:28: daily. [place] [address] [facility] atorvastati 2019-0 Yes 40mg Take 40 mg [facility] n 40 mg 6-17 by mouth ity of tablet 18:28: at [place] [address] bedtime. [facility] aspirin 81 2019-0 Yes 81mg Take 81 mg U nivers mg chewable 6-17 by mouth ity of tablet 18:28: daily. [place] [address] [facility] clopidogrel 2019-0 Yes 75mg Take 75 mg [facility] (PLAVIX) 75 6-17 by mouth ity of mg tablet 18:28: daily. [address] Branch atorvastati 2019-0 Yes 40mg Take 40 mg [facility] n 40 mg 6-17 by mouth ity of tablet 18:28: at [place] [address] bedtime. [facility] aspirin 81 2019-0 Yes 81mg Take 81 mg U nivers mg chewable 6-17 by mouth ity of tablet 18:28: daily. [place] [address] [facility] clopidogrel 2019-0 Yes 75mg Take 75 mg [facility] (PLAVIX) 75 6-17 by mouth ity of mg tablet 18:28: daily. [address] Branch atorvastati 2019-0 Yes 40mg Take 40 mg [facility] n 40 mg 6-17 by mouth ity of tablet 18:28: at [place] [address] bedtime. [facility] aspirin 81 2019-0 Yes 81mg Take 81 mg U nivers mg chewable 6-17 by mouth ity of tablet 18:28: daily. [place] [address] [facility] clopidogrel 2019-0 Yes 75mg Take 75 mg [facility] (PLAVIX) 75 6-17 by mouth ity of mg tablet 18:28: daily. [address] Branch atorvastati 2019-0 Yes 40mg Take 40 mg [facility] n 40 mg 6-17 by mouth ity of tablet 18:28: at [place] [address] bedtime. [facility] aspirin 81 2019-0 Yes 81mg Take 81 mg U nivers mg chewable 6-17 by mouth ity of tablet 18:28: daily. [place] [address] [facility] clopidogrel 2019-0 Yes 75mg Take 75 mg [facility] (PLAVIX) 75 6-17 by mouth ity of mg tablet 18:28: daily. [address] Branch atorvastati 2019-0 Yes 40mg Take 40 mg [facility] n 40 mg 6-17 by mouth ity of tablet 18:28: at [place] [address] bedtime. [facility] aspirin 81 2019-0 Yes 81mg Take 81 mg U nivers mg chewable 6-17 by mouth ity of tablet 18:28: daily. [address] Branch clopidogrel 2019-0 Yes 75mg Take 75 mg [facility] (PLAVIX) 75 6-17 by mouth ity of mg tablet 18:28: daily. [place] 07 [facility] atorvastati 2019-0 Yes 40mg Take 40 mg [facility] n 40 mg 6-17 by mouth ity of tablet 18:28: at [place] [address] bedtime. [facility] aspirin 81 2019-0 Yes 81mg Take 81 mg U nivers mg chewable 6-17 by mouth ity of tablet 18:28: daily. [place] [address] [facility] clopidogrel 2019-0 Yes 75mg Take 75 mg [facility] (PLAVIX) 75 6-17 by mouth ity of mg tablet 18:28: daily. [place] [address] [facility] atorvastati 2019-0 Yes 40mg Take 40 mg [facility] n 40 mg 6-17 by mouth ity of tablet 18:28: at [place] [address] bedtime. [facility] aspirin 81 2019-0 Yes 81mg Take 81 mg U nivers mg chewable 6-17 by mouth ity of tablet 18:28: daily. [place] [address] [facility] clopidogrel 2019-0 Yes 75mg Take 75 mg [facility] (PLAVIX) 75 6-17 by mouth ity of mg tablet 18:28: daily. [place] [address] [facility] atorvastati 2019-0 Yes 40mg Take 40 mg [facility] n 40 mg 6-17 by mouth ity of tablet 18:28: at [place] [address] bedtime. [facility] aspirin 81 2019-0 Yes 81mg Take 81 mg U nivers mg chewable 6-17 by mouth ity of tablet 18:28: daily. [place] [address] [facility] clopidogrel 2019-0 Yes 75mg Take 75 mg [facility] (PLAVIX) 75 6-17 by mouth ity of mg tablet 18:28: daily. [place] [address] [facility] atorvastati 2019-0 Yes 40mg Take 40 mg [facility] n 40 mg 6-17 by mouth ity of tablet 18:28: at [place] [address] bedtime. [facility] aspirin 81 2019-0 Yes 81mg Take 81 mg U nivers mg chewable 6-17 by mouth ity of tablet 18:28: daily. [place] [address] [facility] clopidogrel 2019-0 Yes 75mg Take 75 mg [facility] (PLAVIX) 75 6-17 by mouth ity of mg tablet 18:28: daily. [place] [address] [facility] atorvastati 2019-0 Yes 40mg Take 40 mg [facility] n 40 mg 6-17 by mouth ity of tablet 18:28: at [place] [address] bedtime. [facility] aspirin 81 2019-0 Yes 81mg Take 81 mg U nivers mg chewable 6-17 by mouth ity of tablet 18:28: daily. [place] [address] [facility] clopidogrel 2019-0 Yes 75mg Take 75 mg [facility] (PLAVIX) 75 6-17 by mouth ity of mg tablet 18:28: daily. [place] [address] [facility] atorvastati 2019-0 Yes 40mg Take 40 mg [facility] n 40 mg 6-17 by mouth ity of tablet 18:28: at [place] [address] bedtime. [facility] aspirin 81 2019-0 Yes 81mg Take 81 mg U nivers mg chewable 6-17 by mouth ity of tablet 18:28: daily. [place] [address] [facility] clopidogrel 2019-0 Yes 75mg Take 75 mg [facility] (PLAVIX) 75 6-17 by mouth ity of mg tablet 18:28: daily. [address] Branch atorvastati 2019-0 Yes 40mg Take 40 mg [facility] n 40 mg 6-17 by mouth ity of tablet 18:28: at [place] [address] bedtime. [facility] aspirin 81 2019-0 Yes 81mg Take 81 mg U nivers mg chewable 6-17 by mouth ity of tablet 18:28: daily. [place] [address] [facility] clopidogrel 2019-0 Yes 75mg Take 75 mg [facility] (PLAVIX) 75 6-17 by mouth ity of mg tablet 18:28: daily. [address] Branch atorvastati 2019-0 Yes 40mg Take 40 mg [facility] n 40 mg 6-17 by mouth ity of tablet 18:28: at [place] [address] bedtime. [facility] aspirin 81 2019-0 Yes 81mg Take 81 mg U nivers mg chewable 6-17 by mouth ity of tablet 18:28: daily. [place] [address] [facility] clopidogrel 2019-0 Yes 75mg Take 75 mg [facility] (PLAVIX) 75 6-17 by mouth ity of mg tablet 18:28: daily. [address] Branch atorvastati 2019-0 Yes 40mg Take 40 mg [facility] n 40 mg 6-17 by mouth ity of tablet 18:28: at [place] [address] bedtime. [facility] aspirin 81 2019-0 Yes 81mg Take 81 mg U nivers mg chewable 6-17 by mouth ity of tablet 18:28: daily. [address] clopidogrel 2019-0 Yes 75mg Take 75 mg [facility] (PLAVIX) 75 6-17 by mouth ity of mg tablet 18:28: daily. [address] Branch atorvastati 2019-0 Yes 40mg Take 40 mg [facility] n 40 mg 6-17 by mouth ity of tablet 18:28: at [place] [address] bedtime. [facility] aspirin 81 2019-0 Yes 81mg Take 81 mg U nivers mg chewable 6-17 by mouth ity of tablet 18:28: daily. [place] [address] [facility] clopidogrel 2019-0 Yes 75mg Take 75 mg [facility] (PLAVIX) 75 6-17 by mouth ity of mg tablet 18:28: daily. [place] [address] [facility] atorvastati 2019-0 Yes 40mg Take 40 mg [facility] n 40 mg 6-17 by mouth ity of tablet 18:28: at [place] [address] bedtime. [facility] aspirin 81 2019-0 Yes 81mg Take 81 mg U nivers mg chewable 6-17 by mouth ity of tablet 18:28: daily. [place] [address] [facility] clopidogrel 2019-0 Yes 75mg Take 75 mg [facility] (PLAVIX) 75 6-17 by mouth ity of mg tablet 18:28: daily. [address] Branch atorvastati 2019-0 Yes 40mg Take 40 mg [facility] n 40 mg 6-17 by mouth ity of tablet 18:28: at [place] [address] bedtime. [facility] aspirin 81 2019-0 Yes 81mg Take 81 mg U nivers mg chewable 6-17 by mouth ity of tablet 18:28: daily. [address] Branch clopidogrel 2019-0 Yes 75mg Take 75 mg [facility] (PLAVIX) 75 6-17 by mouth ity of mg tablet 18:28: daily. [address] Branch atorvastati 2019-0 Yes 40mg Take 40 mg [facility] n 40 mg 6-17 by mouth ity of tablet 18:28: at [place] [address] bedtime. [facility] aspirin 81 2019-0 Yes 81mg Take 81 mg U nivers mg chewable 6-17 by mouth ity of tablet 18:28: daily. [place] [address] [facility] clopidogrel 2019-0 Yes 75mg Take 75 mg [facility] (PLAVIX) 75 6-17 by mouth ity of mg tablet 18:28: daily. [address] Branch atorvastati 2019-0 Yes 40mg Take 40 mg [facility] n 40 mg 6-17 by mouth ity of tablet 18:28: at [place] [address] bedtime. [facility] aspirin 81 2019-0 Yes 81mg Take 81 mg U nivers mg chewable 6-17 by mouth ity of tablet 18:28: daily. [address] Branch clopidogrel 2019-0 Yes 75mg Take 75 mg [facility] (PLAVIX) 75 6-17 by mouth ity of mg tablet 18:28: daily. [place] [address] [facility] atorvastati 2019-0 Yes 40mg Take 40 mg [facility] n 40 mg 6-17 by mouth ity of tablet 18:28: at [place] [address] bedtime. [facility] aspirin 81 2019-0 Yes 81mg Take 81 mg U nivers mg chewable 6-17 by mouth ity of tablet 18:28: daily. [place] [address] [facility] clopidogrel 2019-0 Yes 75mg Take 75 mg [facility] (PLAVIX) 75 6-17 by mouth ity of mg tablet 18:28: daily. [place] [address] [facility] atorvastati 2019-0 Yes 40mg Take 40 mg [facility] n 40 mg 6-17 by mouth ity of tablet 18:28: at [place] [address] bedtime. [facility] aspirin 81 2019-0 Yes 81mg Take 81 mg U nivers mg chewable 6-17 by mouth ity of tablet 18:28: daily. [address] Branch clopidogrel 2019-0 Yes 75mg Take 75 mg [facility] (PLAVIX) 75 6-17 by mouth ity of mg tablet 18:28: daily. [address] Branch atorvastati 2019-0 Yes 40mg Take 40 mg [facility] n 40 mg 6-17 by mouth ity of tablet 18:28: at [place] [address] bedtime. [facility] aspirin 81 2019-0 Yes 81mg Take 81 mg U nivers mg chewable 6-17 by mouth ity of tablet 18:28: daily. [address] Branch clopidogrel 2019-0 Yes 75mg Take 75 mg [facility] (PLAVIX) 75 6-17 by mouth ity of mg tablet 18:28: daily. [address] Branch atorvastati 2019-0 Yes 40mg Take 40 mg [facility] n 40 mg 6-17 by mouth ity of tablet 18:28: at [place] [address] bedtime. [facility] aspirin 81 2019-0 Yes 81mg Take 81 mg U nivers mg chewable 6-17 by mouth ity of tablet 18:28: daily. [address] Branch clopidogrel 2019-0 Yes 75mg Take 75 mg [facility] (PLAVIX) 75 6-17 by mouth ity of mg tablet 18:28: daily. [address] Branch atorvastati 2019-0 Yes 40mg Take 40 mg [facility] n 40 mg 6-17 by mouth ity of tablet 18:28: at [place] [address] bedtime. [facility] aspirin 81 2019-0 Yes 81mg Take 81 mg U nivers mg chewable 6-17 by mouth ity of tablet 18:28: daily. [place] [address] [facility] clopidogrel 2019-0 Yes 75mg Take 75 mg [facility] (PLAVIX) 75 6-17 by mouth ity of mg tablet 18:28: daily. [place] [address] [facility] atorvastati 2019-0 Yes 40mg Take 40 mg [facility] n 40 mg 6-17 by mouth ity of tablet 18:28: at [place] [address] bedtime. [facility] aspirin 81 2019-0 Yes 81mg Take 81 mg U nivers mg chewable 6-17 by mouth ity of tablet 18:28: daily. [place] [address] [facility] clopidogrel 2019-0 Yes 75mg Take 75 mg [facility] (PLAVIX) 75 6-17 by mouth ity of mg tablet 18:28: daily. [place] [address] [facility] atorvastati 2019-0 Yes 40mg Take 40 mg [facility] n 40 mg 6-17 by mouth ity of tablet 18:28: at [place] [address] bedtime. [facility] clopidogrel 2019-0 Yes 75mg Take 75 mg [facility] (PLAVIX) 75 6-17 by mouth ity of mg tablet 18:28: daily. [place] [address] [facility] atorvastati 2019-0 Yes 40mg Take 40 mg [facility] n 40 mg 6-17 by mouth ity of tablet 18:28: at [place] [address] bedtime. [facility] clopidogrel 2019-0 Yes 75mg Take 75 mg [facility] (PLAVIX) 75 6-17 by mouth ity of mg tablet 18:28: daily. [facility] atorvastati 2019-0 Yes 40mg Take 40 mg [facility] n 40 mg 6-17 by mouth ity of tablet 18:28: at [place] [address] bedtime. [facility] clopidogrel 2019-0 Yes 75mg Take 75 mg [facility] (PLAVIX) 75 6-17 by mouth ity of mg tablet 18:28: daily. [place] [address] [facility] atorvastati 2019-0 Yes 40mg Take 40 mg [facility] n 40 mg 6-17 by mouth ity of tablet 18:28: at [place] [address] bedtime. [facility] clopidogrel 2019-0 Yes 75mg Take 75 mg [facility] (PLAVIX) 75 6-17 by mouth ity of mg tablet 18:28: daily. [place] [address] [facility] atorvastati 2019-0 Yes 40mg Take 40 mg [facility] n 40 mg 6-17 by mouth ity of tablet 18:28: at [place] [address] bedtime. [facility] clopidogrel 2019-0 Yes 75mg Take 75 mg [facility] (PLAVIX) 75 6-17 by mouth ity of mg tablet 18:28: daily. [facility] atorvastati 2019-0 Yes 40mg Take 40 mg [facility] n 40 mg 6-17 by mouth ity of tablet 18:28: at [place] [address] bedtime. [facility] clopidogrel 2019-0 Yes 75mg Take 75 mg [facility] (PLAVIX) 75 6-17 by mouth ity of mg tablet 18:28: daily. [facility] atorvastati 2019-0 Yes 40mg Take 40 mg [facility] n 40 mg 6-17 by mouth ity of tablet 18:28: at [place] [address] bedtime. [facility] clopidogrel 2019-0 Yes 75mg Take 75 mg [facility] (PLAVIX) 75 6-17 by mouth ity of mg tablet 18:28: daily. [facility] atorvastati 2019-0 Yes 40mg Take 40 mg [facility] n 40 mg 6-17 by mouth ity of tablet 18:28: at [place] [address] bedtime. [facility] clopidogrel 2019-0 Yes 75mg Take 75 mg [facility] (PLAVIX) 75 6-17 by mouth ity of mg tablet 18:28: daily. [facility] atorvastati 2019-0 Yes 40mg Take 40 mg [facility] n 40 mg 6-17 by mouth ity of tablet 18:28: at [place] [address] bedtime. [facility] clopidogrel 2019-0 Yes 75mg Take 75 mg [facility] (PLAVIX) 75 6-17 by mouth ity of mg tablet 18:28: daily. [facility] atorvastati 2019-0 Yes 40mg Take 40 mg [facility] n 40 mg 6-17 by mouth ity of tablet 18:28: at [place] [address] bedtime. [facility] clopidogrel 2019-0 Yes 75mg Take 75 mg [facility] (PLAVIX) 75 6-17 by mouth ity of mg tablet 18:28: daily. [facility] atorvastati 2019-0 Yes 40mg Take 40 mg [facility] n 40 mg 6-17 by mouth ity of tablet 18:28: at [place] [address] bedtime. [facility] clopidogrel 2019-0 Yes 75mg Take 75 mg [facility] (PLAVIX) 75 6-17 by mouth ity of mg tablet 18:28: daily. [facility] atorvastati 2018-0 Yes 40mg Take 40 mg [facility] n 40 mg 6-17 by mouth ity of tablet 18:28: at [place] [address] bedtime. [facility] clopidogrel 2019-0 Yes 75mg Take 75 mg [facility] (PLAVIX) 75 6-17 by mouth ity of mg tablet 18:28: daily. [place] [address] [facility] atorvastati Yes 40mg Take 40 mg [facility] n 40 mg 6-17 by mouth ity of tablet 18:28: at [place] [address] bedtime. [facility] clopidogrel 2019-0 Yes 75mg Take 75 mg [facility] (PLAVIX) 75 6-17 by mouth ity of mg tablet 18:28: daily. [place] [address] [facility] atorvastati Yes 40mg Take 40 mg [facility] n 40 mg 6-17 by mouth ity of tablet 18:28: at [place] [address] bedtime. [facility] clopidogrel 2018- Yes 75mg Take 75 mg [facility] (PLAVIX) 75 6-17 by mouth ity of mg tablet 18:28: daily. [place] [address] [facility] atorvastati Yes 40mg Take 40 mg [facility] n 40 mg 6-17 by mouth ity of tablet 18:28: at [place] [address] bedtime. [facility] clopidogrel 2019-0 Yes 75mg Take 75 mg [facility] (PLAVIX) 75 6-17 by mouth ity of mg tablet 18:28: daily. [place] [address] [facility] atorvastati Yes 40mg Take 40 mg [facility] n 40 mg 6-17 by mouth ity of tablet 18:28: at [place] [address] bedtime. [facility] clopidogrel 2018-0 Yes 75mg Take 75 mg [facility] (PLAVIX) 75 6-17 by mouth ity of mg tablet 18:28: daily. [place] [address] [facility] atorvastati Yes 40mg Take 40 mg [facility] n 40 mg 6-17 by mouth ity of tablet 18:28: at [place] [address] bedtime. [facility] amLODIPine amLODIPine Yes YANELI TAKE 1 [facility] [...] 00 EVERY DAY [facility] Atorvastati Atorvastati 2017-0 Yes YANELI 1 QD TAKE 1 [facility] n Calcium n Calcium 9-10 SAMUEL M.D. TABLET ity of 20 MG Oral 20 MG Oral 00:00: DAILY [place] Tablet Tablet 00 [facility] ans Clopidogrel Clopidogrel 0 Yes YANELI QD TAKE 1 [facility] Bisulfate Bisulfate 9-10 SAMUEL M.D. TABLET BY ity of 75 MG Oral 75 MG Oral 00:00: MOUTH [place] Tablet Tablet 00 EVERY DAY Physic i ans Lisinopril Lisinopril 2017-0 Yes YANELI 1 QD TAKE 1 [facility] 20 MG Oral 20 MG Oral 9-10 SAMUEL M.D. TABLET ity of Tablet Tablet 00:00: DAILY [place] [facility] ans amLODIPine 2017-0 Yes 5 mg = 1 Mem oria 5 mg oral 8-28 tab, PO, l tablet 19:26: Daily, # [place] 00 30 tab, 2 Refill(s) lisinopril 2018-0 Yes 20 mg = 1 Me moria 20 mg oral 8-28 tab, PO, l tablet 19:26: Daily, # [place] 00 30 tab, 2 Refill(s) clopidogrel 2017-0 Yes 75 mg = 1 M emoria 75 mg oral 8-28 tab, PO, l tablet 19:26: Daily, # [place] 00 30 tab, 2 Refill(s) atorvastati 2017-0 Yes 20 mg = 1 M emoria n 20 mg 8-28 tab, PO, l oral tablet 19:26: Bedtime, # [place] 00 30 tab, 2 Refill(s) Aspirin 325 2017-0 Yes 325 mg = 1 [facility] Enteric 8-28 tab, PO, l Coated 19:26: Daily, # [place] Tablet 00 30 tab, 2 Refill(s) amLODIPine 2018-0 Yes 5 mg = 1 Mem oria 5 mg oral 8-28 tab, PO, l tablet 19:26: Daily, # [place] 00 30 tab, 2 Refill(s) lisinopril 2017-0 Yes 20 mg = 1 Me moria 20 mg oral 8-28 tab, PO, l tablet 19:26: Daily, # Desmet 00 30 tab, 2 Refill(s) clopidogrel 2017-0 Yes 75 mg = 1 M emoria 75 mg oral 8-28 tab, PO, l tablet 19:26: Daily, # Franko 00 30 tab, 2 Refill(s) atorvastati Yes 20 mg = 1 Landry emoria n 20 mg 8-28 tab, PO, l oral tablet 19:26: Bedtime, # Desmet 00 30 tab, 2 Refill(s) Aspirin 325 [...] (Same as l MG / 22:00: Senokot-S) Desmet sennosides, 00 Equiv. to GROUP HOME 8.6 MG Anai-Colac Oral Tablet e. Docusate No Notes: Memoria Sodium 50 8-27 (Same as l MG / 22:00: Senokot-S) Desmet sennosides, 00 Equiv. to GROUP HOME 8.6 MG Anai-Colac Oral Tablet e. Tramadol No Notes: Not Mem oria 8-27 to exceed l 18:07: 400mg/day. 00 (Same As: Ultram) Tramadol No Notes: Not Mem oria 8-27 to exceed l 18:07: 400mg/day. 00 (Same As: Ultram) Midazolam No 2 mg, Memoria 8-27 Route: l 18:04: IVP, ONCE, Dosing Weight 88.636, kg, Start date: 07/07/18 13:04:00 CDT, Stop date: 07/07/18 13:04:00 CDT Fentanyl No 100 Memoria 8-27 microgram, l 18:04: Route: IV, ONCE, Dosing Weight 88.636, kg, Start date: 07/07/18 13:04:00 CDT, Stop date: 07/07/18 13:04:00 CDT Omnipaque 2018-0 No 150 mL, Memor ia 300 8-27 Route: l 18:04: INTRAARTER Desmet 00 IAL, Dosing Weight 88.636, kg, ONCE, Start date: 07/07/18 13:04:00 CDT, Stop date: 07/07/18 13:04:00 CDT Midazolam 2017-0 No 2 mg, Memoria 8-27 Route: l 18:04: IVP, ONCE, Desmet 00 Dosing Weight 88.636, kg, Start date: 07/07/18 13:04:00 CDT, Stop date: 07/07/18 13:04:00 CDT Fentanyl 2018-0 No 100 Memoria 8-27 microgram, l 18:04: Route: IV, Frnako 00 ONCE, Dosing Weight 88.636, kg, Start date: 07/07/18 13:04:00 CDT, Stop date: 07/07/18 13:04:00 CDT Omnipaque 2018-0 No 150 mL, Memor ia 300 8- Route: l 18:04: INTRAARTER Franko 00 IAL, Dosing Weight 88.636, kg, ONCE, Start date: 07/07/18 13:04:00 CDT, Stop date: 07/07/18 13:04:00 CDT captopril No Notes: Memori a 8-27 Give on l 17:25: empty Desmet 00 stomach. 1 hour before meal. (Same As: Capoten) captopril No Notes: Memori a 8-27 Give on l 17:25: empty Desmet 00 stomach. 1 hour before meal. (Same As: Capoten) remove No Notes: Memoria patch 8-27 Remove l 02:00: patch 12 Desmet 00 hours after applicatio n each day. remove No Notes: Memoria patch 8-27 Remove l 02:00: patch 12 Franko 00 hours after applicatio n each day. remove No Notes: [facility]oria patch 8-26 Remove old l 14:00: patch Desmet 00 before applicatio n of new patch. WASTE: F/P - P Waste Black; E - P Waste Black Aspirin 325 No Notes: Papi jigna MG Enteric 8-26 Take with l Coated 14:00: food. Desmet Tablet 00 Lidocaine No Notes: Memori a 0.05 MG/MG 8-26 Apply only l Transdermal 14:00: once for He rmann Patch 00 up to 12 hours in a 24-hour period (12 hours on and 12 hours off). (Same as: Lidoderm) "Remove old patch before applicatio n of new patch" remove No Notes: Memoria patch - Remove old l 14:00: patch Franko 00 before applicatio n of new patch. WASTE: F/P - P Waste Black; E - P Waste Black Aspirin 325 No Notes: Papi jigna MG Enteric 8-26 Take with l Coated 14:00: food. Desmet Tablet 00 Lidocaine No Notes: Memori a 0.05 MG/MG 8-26 Apply only l Transdermal 14:00: once for He rmann Patch 00 up to 12 hours in a 24-hour period (12 hours on and 12 hours off). (Same as: Lidoderm) "Remove old patch before applicatio n of new patch" Amlodipine No 5 mg, 1 Papi jigna 8-26 tab, l 13:03: Route: PO, Drug form: TAB, Daily, Dosing Weight 88.636, kg, Start date: 07/06/18 8:03:00 CDT, Duration: 30 day, Stop date: 08/04/18 9:00:00 CDT Amlodipine No 5 mg, 1 Papi jigna 8-26 tab, l 13:03: Route: PO, Drug form: TAB, Daily, Dosing Weight 88.636, kg, Start date: 07/06/18 8:03:00 CDT, Duration: 30 day, Stop date: 08/04/18 9:00:00 CDT Tylenol No Notes: Do Memor ia 07-06 not exceed l 07:07: 4 gm/day. (Same as: Tylenol) Tylenol No Notes: Do Memor ia - not exceed l 07:07: 4 gm/day. (Same as: Tylenol) Spironolact No 25 mg = 2 M emoria one 8-25 tab, PO, l 16:50: Daily, # Desmet 00 60 tab, 0 Refill(s) Furosemide 20180 No Daily, 0 Mem oria 8-25 Refill(s) l 16:50: Franko amLODIPine 0 No 20 mg = 2 Me moria 10 mg oral 8-25 tab, PO, l tablet 16:50: QAM, 0 Refill(s) Spironolact 20180 No 25 mg = 2 M emoria one 8-25 tab, PO, l 16:50: Daily, # Franko 00 60 tab, 0 Refill(s) Furosemide 20180 No Daily, 0 Mem oria 8-25 Refill(s) l 16:50: Desmet 00 amLODIPine 0 No 20 mg = 2 Me moria 10 mg oral 8-25 tab, PO, l tablet 16:50: QAM, 0 Refill(s) Nicotine No Notes: Memoria 8-25 (Same as: l 14:00: Habitrol) "Remove old patch before applicatio n of new patch" WASTE: F/P - P Waste Black; E - P Waste Black Plavix No Notes: Memoria 8-25 (Same As: l 14:00: Plavix) Nicotine No Notes: Memoria 8-25 (Same as: l 14:00: Habitrol) Franko 00 "Remove old patch before applicatio n of new patch" WASTE: F/P - P Waste Black; E - P Waste Black Plavix No Notes: Memoria 8-25 (Same As: l 14:00: Plavix) Aspirin 81 No Notes: Do Me moria MG Enteric 8-25 not crush l Coated 13:00: or chew. Franko Tablet 00 (Same As: Ecotrin) Aspirin 81 No Notes: Do Me moria MG Enteric 8-25 not crush l Coated 13:00: or chew. Franko Tablet 00 (Same As: Ecotrin) Saline No Notes: Memoria Flush 0.9% 8-25 (Same as: l 02:00: BD Posiflush) atorvastati No Notes: Papi jigna n 8-25 (Same As: l 02:00: Lipitor) Saline No Notes: Memoria Flush 0.9% 8 (Same as: l 02:00: BD Posiflush) atorvastati No Notes: Papi jigna n 8-25 (Same As: l 02:00: Lipitor) sennosides, No Notes: Papi jigna [facility] 8-24 (Same as: l 22:46: Senokot) sennosides, No Notes: Papi jigna [facility] 8-24 (Same as: l 22:46: Senokot) Plavix [...] Notes: Memoria 8-24 porcine l 21:00: heparin heparin No Notes: Memoria 8-24 porcine l 21:00: heparin iodixanol No 100 mL, Memor ia 8 Route: l 20:05: IVP, Drug Form: SOLN, Dosing Weight 88.636, kg, ONCALL, STAT, Start date: 07/04/18 15:05:00 CDT, Duration: 1 doses or times, Dose = 2.2ml/kg, Max dose = 100ml -- "To be infused by Radiology Staff ONLY" iodixanol No 100 mL, Memor ia 8 Route: l 20:05: IVP, Drug Form: SOLN, Dosing Weight 88.636, kg, ONCALL, STAT, Start date: 07/04/18 15:05:00 CDT, Duration: 1 doses or times, Dose = 2.2ml/kg, Max dose = 100ml -- "To be infused by Radiology Staff ONLY" Saline No Notes: Memoria Flush 0.9% 8-24 (Same as: l 20:01: BD Franko 00 Posiflush) Hydralazine No Notes: Papi jigna 8-24 (Same as: l 20:01: Apresoline Desmet 00 ) Push over 5 minutes Labetalol No 10 mg, 2 Papi jigna 8-24 mL, Route: l 20:01: IVP, Drug Franko 00 form: INJ, Q15Min, Dosing Weight 88.636, kg, PRN Hypertensi on, Start date: 07/04/18 15:01:00 CDT, Duration: 30 day, Stop date: 08/03/18 15:00:00 CDT Ondansetron No Notes: Papi jigna 8-24 (Same as: l 20:01: Zofran) Desmet 00 MEDICATION WASTE Product Size: 4 mg [...] 0.9% 8-24 (Same as: l 20:01: BD Franko 00 Posiflush) Hydralazine No Notes: Papi jigna 8-24 (Same as: l 20:01: Apresoline Desmet 00 ) Push over 5 minutes Labetalol No 10 mg, 2 Papi jigna 8-24 mL, Route: l 20:01: IVP, Drug Franko 00 form: INJ, Q15Min, Dosing Weight 88.636, kg, PRN Hypertensi on, Start date: 07/04/18 15:01:00 CDT, Duration: 30 day, Stop date: 08/03/18 15:00:00 CDT Ondansetron 2018-0 No Notes: Papi jigna 8-24 (Same as: l 20:01: Zofran) Franko 00 MEDICATION WASTE Product Size: 4 mg Product Wasted: ___ mg Sodium 2018- No 1,000 mL, Memori a Chloride 824 Rate: 100 l 0.9% IV 20:01: ml/hr, [...] 0.9% 8-24 (Same as: l 19:01: BD Posiflush) proMETHazin 2018-0 Yes 25mg Take 1 [facility] 25 mg 6-05 tablet by [facility] of tablet 00:00: mouth [place] 00 every 6 Medical (six) Branch hours as needed for Nausea and Vomiting (N/V). ondansetron 2018-0 Yes 4mg Take 1 [facility] 4 mg 6-05 tablet by ity of disintegrat 00:00: mouth [place] ing tablet 00 every 8 Medica l (eight) Branch hours as needed for Nausea and Vomiting (N/V). proMETHazin 2018-0 Yes 25mg Take 1 [facility] 25 mg 6-05 tablet by ity of tablet 00:00: mouth [place] 00 every 6 Medical (six) Branch hours as needed for Nausea and Vomiting (N/V). ondansetron 2018-0 Yes 4mg Take 1 [facility] 4 mg 6-05 tablet by ity of disintegrat 00:00: mouth [place] ing tablet 00 every 8 Medica l (eight) Branch hours as needed for Nausea and Vomiting (N/V). proMETHazin 2018-0 Yes 25mg Take 1 [facility] 25 mg 6-05 tablet by ity of tablet 00:00: mouth [place] 00 every 6 Medical (six) Branch hours as needed for Nausea and Vomiting (N/V). ondansetron 2018-0 Yes 4mg Take 1 [facility] 4 mg 6-05 tablet by ity of disintegrat 00:00: mouth [place] ing tablet 00 every 8 Medica l (eight) Branch hours as needed for Nausea and Vomiting (N/V). proMETHazin 2018-0 Yes 25mg Take 1 [facility] 25 mg 6-05 tablet by ity of tablet 00:00: mouth [place] 00 every 6 Medical (six) Branch hours as needed for Nausea and Vomiting (N/V). ondansetron 2018-0 Yes 4mg Take 1 [facility] 4 mg 6-05 tablet by ity of disintegrat 00:00: mouth [place] ing tablet 00 every 8 Medica l (eight) Branch hours as needed for Nausea and Vomiting (N/V). proMETHazin 2018-0 Yes 25mg Take 1 [facility] 25 mg 6-05 tablet by ity of tablet 00:00: mouth [place] 00 every 6 Medical (six) Branch hours as needed for Nausea and Vomiting (N/V). ondansetron 2018-0 Yes 4mg Take 1 [facility] 4 mg 6-05 tablet by ity of disintegrat 00:00: mouth [place] ing tablet 00 every 8 Medica l (eight) Branch hours as needed for Nausea and Vomiting (N/V). proMETHazin 2018-0 Yes 25mg Take 1 [facility] 25 mg 6-05 tablet by ity of tablet 00:00: mouth [place] 00 every 6 Medical (six) Branch hours as needed for Nausea and Vomiting (N/V). ondansetron 2018-0 Yes 4mg Take 1 [facility] 4 mg 6-05 tablet by ity of disintegrat 00:00: mouth [place] ing tablet 00 every 8 Medica l (eight) Branch hours as needed for Nausea and Vomiting (N/V). proMETHazin 2018-0 Yes 25mg Take 1 [facility] 25 mg 6-05 tablet by ity of tablet 00:00: mouth [place] 00 every 6 Medical (six) Branch hours as needed for Nausea and Vomiting (N/V). ondansetron 2018-0 Yes 4mg Take 1 [facility] 4 mg 6-05 tablet by ity of disintegrat 00:00: mouth [place] ing tablet 00 every 8 Medica l (eight) Branch hours as needed for Nausea and Vomiting (N/V). ondansetron 2018-0 Yes 4mg Take 1 [facility] 4 mg 6-05 tablet by ity of disintegrat 00:00: mouth [place] ing tablet 00 every 8 Medica l (eight) Branch hours as needed for Nausea and Vomiting (N/V). proMETHazin 2018-0 Yes 25mg Take 1 [facility] 25 mg 6-05 tablet by ity of tablet 00:00: mouth [place] 00 every 6 Medical (six) Branch hours as needed for Nausea and Vomiting (N/V). proMETHazin 2018-0 Yes 25mg Take 1 [facility] 25 mg 6-05 tablet by ity of tablet 00:00: mouth [place] 00 every 6 Medical (six) Branch hours as needed for Nausea and Vomiting (N/V). ondansetron 2018-0 Yes 4mg Take 1 [facility] 4 mg 6-05 tablet by ity of disintegrat 00:00: mouth [place] ing tablet 00 every 8 Medica l (eight) Branch hours as needed for Nausea and Vomiting (N/V). proMETHazin 2018-0 Yes 25mg Take 1 [facility] 25 mg 6-05 tablet by ity of tablet 00:00: mouth [place] 00 every 6 Medical (six) Branch hours as needed for Nausea and Vomiting (N/V). ondansetron 2018-0 Yes 4mg Take 1 [facility] 4 mg 6-05 tablet by ity of disintegrat 00:00: mouth [place] ing tablet 00 every 8 Medica l (eight) Branch hours as needed for Nausea and Vomiting (N/V). proMETHazin 2018-0 Yes 25mg Take 1 [facility] 25 mg 6-05 tablet by ity of tablet 00:00: mouth [place] 00 every 6 Medical (six) Branch hours as needed for Nausea and Vomiting (N/V). ondansetron 2018-0 Yes 4mg Take 1 [facility] 4 mg 6-05 tablet by ity of disintegrat 00:00: mouth [place] ing tablet 00 every 8 Medica l (eight) Branch hours as needed for Nausea and Vomiting (N/V). proMETHazin 2018-0 Yes 25mg Take 1 [facility] 25 mg 6-05 tablet by ity of tablet 00:00: mouth [place] 00 every 6 Medical (six) Branch hours as needed for Nausea and Vomiting (N/V). ondansetron 2018-0 Yes 4mg Take 1 [facility] 4 mg 6-05 tablet by ity of disintegrat 00:00: mouth [place] ing tablet 00 every 8 Medica l (eight) Branch hours as needed for Nausea and Vomiting (N/V). proMETHazin 2018-0 Yes 25mg Take 1 [facility] 25 mg 6-05 tablet by ity of tablet 00:00: mouth [place] 00 every 6 Medical (six) Branch hours as needed for Nausea and Vomiting (N/V). ondansetron 2018-0 Yes 4mg Take 1 [facility] 4 mg 6-05 tablet by ity of disintegrat 00:00: mouth [place] ing tablet 00 every 8 Medica l (eight) Branch hours as needed for Nausea and Vomiting (N/V). proMETHazin 2018-0 Yes 25mg Take 1 [facility] 25 mg 6-05 tablet by ity of tablet 00:00: mouth [place] 00 every 6 Medical (six) Branch hours as needed for Nausea and Vomiting (N/V). ondansetron 2018-0 Yes 4mg Take 1 [facility] 4 mg 6-05 tablet by ity of disintegrat 00:00: mouth [place] ing tablet 00 every 8 Medica l (eight) Branch hours as needed for Nausea and Vomiting (N/V). proMETHazin 2018-0 Yes 25mg Take 1 [facility] 25 mg 6-05 tablet by ity of tablet 00:00: mouth [place] 00 every 6 Medical (six) Branch hours as needed for Nausea and Vomiting (N/V). ondansetron 2018-0 Yes 4mg Take 1 [facility] 4 mg 6-05 tablet by ity of disintegrat 00:00: mouth [place] ing tablet 00 every 8 Medica l (eight) Branch hours as needed for Nausea and Vomiting (N/V). proMETHazin 2018-0 Yes 25mg Take 1 [facility] 25 mg 6-05 tablet by ity of tablet 00:00: mouth [place] 00 every 6 Medical (six) Branch hours as needed for Nausea and Vomiting (N/V). ondansetron 2018-0 Yes 4mg Take 1 [facility] 4 mg 6-05 tablet by ity of disintegrat 00:00: mouth [place] ing tablet 00 every 8 Medica l (eight) Branch hours as needed for Nausea and Vomiting (N/V). proMETHazin 2018-0 Yes 25mg Take 1 [facility] 25 mg 6-05 tablet by ity of tablet 00:00: mouth [place] 00 every 6 Medical (six) Branch hours as needed for Nausea and Vomiting (N/V). ondansetron 2018-0 Yes 4mg Take 1 [facility] 4 mg 6-05 tablet by ity of disintegrat 00:00: mouth [place] ing tablet 00 every 8 Medica l (eight) Branch hours as needed for Nausea and Vomiting (N/V). proMETHazin 2018-0 Yes 25mg Take 1 [facility] 25 mg 6-05 tablet by ity of tablet 00:00: mouth [place] 00 every 6 Medical (six) Branch hours as needed for Nausea and Vomiting (N/V). ondansetron 2018-0 Yes 4mg Take 1 [facility] 4 mg 6-05 tablet by ity of disintegrat 00:00: mouth [place] ing tablet 00 every 8 Medica l (eight) Branch hours as needed for Nausea and Vomiting (N/V). proMETHazin 2018-0 Yes 25mg Take 1 [facility] 25 mg 6-05 tablet by ity of tablet 00:00: mouth [place] 00 every 6 Medical (six) Branch hours as needed for Nausea and Vomiting (N/V). ondansetron 2018-0 Yes 4mg Take 1 [facility] 4 mg 6-05 tablet by ity of disintegrat 00:00: mouth [place] ing tablet 00 every 8 Medica l (eight) Branch hours as needed for Nausea and Vomiting (N/V). proMETHazin 2018-0 Yes 25mg Take 1 [facility] 25 mg 6-05 tablet by ity of tablet 00:00: mouth [place] 00 every 6 Medical (six) Branch hours as needed for Nausea and Vomiting (N/V). ondansetron 2018-0 Yes 4mg Take 1 [facility] 4 mg 6-05 tablet by ity of disintegrat 00:00: mouth [place] ing tablet 00 every 8 Medica l (eight) Branch hours as needed for Nausea and Vomiting (N/V). proMETHazin 2018-0 Yes 25mg Take 1 [facility] 25 mg 6-05 tablet by ity of tablet 00:00: mouth [place] 00 every 6 Medical (six) Branch hours as needed for Nausea and Vomiting (N/V). ondansetron 2018-0 Yes 4mg Take 1 [facility] 4 mg 6-05 tablet by ity of disintegrat 00:00: mouth [place] ing tablet 00 every 8 Medica l (eight) Branch hours as needed for Nausea and Vomiting (N/V). ondansetron 2018-0 Yes 4mg Take 1 [facility] 4 mg 6-05 tablet by ity of disintegrat 00:00: mouth [place] ing tablet 00 every 8 Medica l (eight) Branch hours as needed for Nausea and Vomiting (N/V). proMETHazin 2018-0 Yes 25mg Take 1 [facility] 25 mg 6-05 tablet by ity of tablet 00:00: mouth [place] 00 every 6 Medical (six) Branch hours as needed for Nausea and Vomiting (N/V). proMETHazin 2018-0 Yes 25mg Take 1 [facility] 25 mg 6-05 tablet by ity of tablet 00:00: mouth [place] 00 every 6 Medical (six) Branch hours as needed for Nausea and Vomiting (N/V). ondansetron 2018-0 Yes 4mg Take 1 [facility] 4 mg 6-05 tablet by ity of disintegrat 00:00: mouth [place] ing tablet 00 every 8 Medica l (eight) Branch hours as needed for Nausea and Vomiting (N/V). proMETHazin 2018-0 Yes 25mg Take 1 [facility] 25 mg 6-05 tablet by ity of tablet 00:00: mouth [place] 00 every 6 Medical (six) Branch hours as needed for Nausea and Vomiting (N/V). traMADOL 50 2018-0 Yes 50mg Take 1 [facility] mg tablet 6-05 tablet by ity o f 00:00: mouth [place] 00 every 6 Medical (six) Branch hours as needed for Pain (scale 4-6). ondansetron 2018-0 Yes 4mg Take 1 [facility] 4 mg 6-05 tablet by ity of disintegrat 00:00: mouth [place] ing tablet 00 every 8 Medica l (eight) Branch hours as needed for Nausea and Vomiting (N/V). proMETHazin 2018-0 Yes 25mg Take 1 [facility] 25 mg 6-05 tablet by ity of tablet 00:00: mouth [place] 00 every 6 Medical (six) Branch hours as needed for Nausea and Vomiting (N/V). ondansetron 2018-0 Yes 4mg Take 1 [facility] 4 mg 6-05 tablet by ity of disintegrat 00:00: mouth [place] ing tablet 00 every 8 Medica l (eight) Branch hours as needed for Nausea and Vomiting (N/V). proMETHazin 2018-0 Yes 25mg Take 1 [facility] 25 mg 6-05 tablet by ity of tablet 00:00: mouth [place] 00 every 6 Medical (six) Branch hours as needed for Nausea and Vomiting (N/V). ondansetron 2018-0 Yes 4mg Take 1 [facility] 4 mg 6-05 tablet by ity of disintegrat 00:00: mouth [place] ing tablet 00 every 8 Medica l (eight) Branch hours as needed for Nausea and Vomiting (N/V). proMETHazin 2018-0 Yes 25mg Take 1 [facility] 25 mg 6-05 tablet by ity of tablet 00:00: mouth [place] 00 every 6 Medical (six) Branch hours as needed for Nausea and Vomiting (N/V). ondansetron 2018-0 Yes 4mg Take 1 [facility] 4 mg 6-05 tablet by ity of disintegrat 00:00: mouth [place] ing tablet 00 every 8 Medica l (eight) Branch hours as needed for Nausea and Vomiting (N/V). proMETHazin 2018-0 Yes 25mg Take 1 [facility] 25 mg 6-05 tablet by ity of tablet 00:00: mouth [place] 00 every 6 Medical (six) Branch hours as needed for Nausea and Vomiting (N/V). ondansetron 2018-0 Yes 4mg Take 1 [facility] 4 mg 6-05 tablet by ity of disintegrat 00:00: mouth [place] ing tablet 00 every 8 Medica l (eight) Branch hours as needed for Nausea and Vomiting (N/V). proMETHazin 2018-0 Yes 25mg Take 1 [facility] 25 mg 6-05 tablet by ity of tablet 00:00: mouth [place] 00 every 6 Medical (six) Branch hours as needed for Nausea and Vomiting (N/V). ondansetron 2018-0 Yes 4mg Take 1 [facility] 4 mg 6-05 tablet by ity of disintegrat 00:00: mouth [place] ing tablet 00 every 8 Medica l (eight) Branch hours as needed for Nausea and Vomiting (N/V). proMETHazin 2018-0 Yes 25mg Take 1 [facility] 25 mg 6-05 tablet by ity of tablet 00:00: mouth [place] 00 every 6 Medical (six) Branch hours as needed for Nausea and Vomiting (N/V). traMADOL 50 2018-0 Yes 50mg Take 1 [facility] mg tablet 6-05 tablet by ity o f 00:00: mouth [place] 00 every 6 Medical (six) Branch hours as needed for Pain (scale 4-6). ondansetron 2018-0 Yes 4mg Take 1 [facility] 4 mg 6-05 tablet by ity of disintegrat 00:00: mouth [place] ing tablet 00 every 8 Medica l (eight) Branch hours as needed for Nausea and Vomiting (N/V). proMETHazin 2018-0 Yes 25mg Take 1 [facility] 25 mg 6-05 tablet by ity of tablet 00:00: mouth [place] 00 every 6 Medical (six) Branch hours as needed for Nausea and Vomiting (N/V). ondansetron 2018-0 Yes 4mg Take 1 [facility] 4 mg 6-05 tablet by ity of disintegrat 00:00: mouth [place] ing tablet 00 every 8 Medica l (eight) Branch hours as needed for Nausea and Vomiting (N/V). proMETHazin 2018-0 Yes 25mg Take 1 [facility] 25 mg 6-05 tablet by ity of tablet 00:00: mouth [place] 00 every 6 Medical (six) Branch hours as needed for Nausea and Vomiting (N/V). traMADOL 50 2018-0 Yes 50mg Take 1 [facility] mg tablet 6-05 tablet by ity o f 00:00: mouth [place] 00 every 6 Medical (six) Branch hours as needed for Pain (scale 4-6). ondansetron 2018-0 Yes 4mg Take 1 [facility] 4 mg 6-05 tablet by ity of disintegrat 00:00: mouth [place] ing tablet 00 every 8 Medica l (eight) Branch hours as needed for Nausea and Vomiting (N/V). proMETHazin 2018-0 Yes 25mg Take 1 [facility] 25 mg 6-05 tablet by ity of tablet 00:00: mouth [place] 00 every 6 Medical (six) Branch hours as needed for Nausea and Vomiting (N/V). traMADOL 50 2018-0 Yes 50mg Take 1 [facility] mg tablet 6-05 tablet by ity o f 00:00: mouth [place] 00 every 6 Medical (six) Branch hours as needed for Pain (scale 4-6). ondansetron 2018-0 Yes 4mg Take 1 [facility] 4 mg 6-05 tablet by ity of disintegrat 00:00: mouth [place] ing tablet 00 every 8 Medica l (eight) Branch hours as needed for Nausea and Vomiting (N/V). proMETHazin 2018-0 Yes 25mg Take 1 [facility] 25 mg 6-05 tablet by ity of tablet 00:00: mouth [place] 00 every 6 Medical (six) Branch hours as needed for Nausea and Vomiting (N/V). traMADOL 50 2018-0 Yes 50mg Take 1 [facility] mg tablet 6-05 tablet by ity o f 00:00: mouth [place] 00 every 6 Medical (six) Branch hours as needed for Pain (scale 4-6). ondansetron 2018-0 Yes 4mg Take 1 [facility] 4 mg 6-05 tablet by ity of disintegrat 00:00: mouth [place] ing tablet 00 every 8 Medica l (eight) Branch hours as needed for Nausea and Vomiting (N/V). proMETHazin 2018-0 Yes 25mg Take 1 [facility] 25 mg 6-05 tablet by ity of tablet 00:00: mouth [place] 00 every 6 Medical (six) Branch hours as needed for Nausea and Vomiting (N/V). traMADOL 50 2018-0 Yes 50mg Take 1 [facility] mg tablet 6-05 tablet by ity o f 00:00: mouth [place] 00 every 6 Medical (six) Branch hours as needed for Pain (scale 4-6). ondansetron 2018-0 Yes 4mg Take 1 [facility] 4 mg 6-05 tablet by ity of disintegrat 00:00: mouth [place] ing tablet 00 every 8 Medica l (eight) Branch hours as needed for Nausea and Vomiting (N/V). proMETHazin 2018-0 Yes 25mg Take 1 [facility] 25 mg 6-05 tablet by ity of tablet 00:00: mouth [place] 00 every 6 Medical (six) Branch hours as needed for Nausea and Vomiting (N/V). ondansetron 2018-0 Yes 4mg Take 1 [facility] 4 mg 6-05 tablet by ity of disintegrat 00:00: mouth [place] ing tablet 00 every 8 Medica l (eight) Branch hours as needed for Nausea and Vomiting (N/V). proMETHazin 2018-0 Yes 25mg Take 1 [facility] 25 mg 6-05 tablet by ity of tablet 00:00: mouth [place] 00 every 6 Medical (six) Branch hours as needed for Nausea and Vomiting (N/V). ondansetron 2018-0 Yes 4mg Take 1 [facility] 4 mg 6-05 tablet by ity of disintegrat 00:00: mouth [place] ing tablet 00 every 8 Medica l (eight) Branch hours as needed for Nausea and Vomiting (N/V). proMETHazin 2018-0 Yes 25mg Take 1 [facility] 25 mg 6-05 tablet by ity of tablet 00:00: mouth [place] 00 every 6 Medical (six) Branch hours as needed for Nausea and Vomiting (N/V). ondansetron 2018-0 Yes 4mg Take 1 [facility] 4 mg 6-05 tablet by ity of disintegrat 00:00: mouth [place] ing tablet 00 every 8 Medica l (eight) Branch hours as needed for Nausea and Vomiting (N/V). proMETHazin 2018-0 Yes 25mg Take 1 [facility] 25 mg 6-05 tablet by [facility]y of tablet 00:00: mouth [place] 00 every 6 Medical (six) Branch hours as needed for Nausea and Vomiting (N/V). ondansetron 2018-0 Yes 4mg Take 1 [facility] 4 mg 6-05 tablet by ity of disintegrat 00:00: mouth [place] ing tablet 00 every 8 Medica l (eight) Branch hours as needed for Nausea and Vomiting (N/V). proMETHazin 2018-0 Yes 25mg Take 1 [facility] 25 mg 6-05 tablet by ity of tablet 00:00: mouth [place] 00 every 6 Medical (six) Branch hours as needed for Nausea and Vomiting (N/V). ondansetron 2018-0 Yes 4mg Take 1 [facility] 4 mg 6-05 tablet by ity of disintegrat 00:00: mouth [place] ing tablet 00 every 8 Medica l (eight) Branch hours as needed for Nausea and Vomiting (N/V). proMETHazin 2018-0 Yes 25mg Take 1 [facility] 25 mg 6-05 tablet by ity of tablet 00:00: mouth [place] 00 every 6 Medical (six) Branch hours as needed for Nausea and Vomiting (N/V). ondansetron 2018-0 Yes 4mg Take 1 [facility] 4 mg 6-05 tablet by ity of disintegrat 00:00: mouth [place] ing tablet 00 every 8 Medica l (eight) Branch hours as needed for Nausea and Vomiting (N/V). proMETHazin 2018-0 Yes 25mg Take 1 [facility] 25 mg 6-05 tablet by ity of tablet 00:00: mouth [place] 00 every 6 Medical (six) Branch hours as needed for Nausea and Vomiting (N/V). ondansetron 2018-0 Yes 4mg Take 1 [facility] 4 mg 6-05 tablet by ity of disintegrat 00:00: mouth [place] ing tablet 00 every 8 Medica l (eight) Branch hours as needed for Nausea and Vomiting (N/V). proMETHazin 2018-0 Yes 25mg Take 1 [facility] 25 mg 6-05 tablet by [facility] 00:00: mouth [place] 00 every 6 [facility] (six) Branch hours as needed for Nausea and Vomiting (N/V). ondansetron 2018-0 Yes 4mg Take 1 [facility] 4 mg 6-05 tablet by [facility] disintegrat 00:00: mouth [place] ing tablet 00 every 8 [facility] (eight) Branch hours as needed for Nausea and Vomiting (N/V). proMETHazin 2018-0 Yes 25mg Take 1 [facility] 25 mg 6-05 tablet by [facility] tablet 00:00: mouth [place] 00 every 6 [facility] (six) Branch hours as needed for Nausea and Vomiting (N/V). ondansetron 2018-0 Yes 4mg Take 1 [facility] 4 mg 6-05 tablet by [facility] disintegrat 00:00: mouth [place] ing tablet 00 every 8 [facility] (eight) Branch hours as needed for Nausea and Vomiting (N/V). proMETHazin 2018-0 Yes 25mg Take 1 [facility] 25 mg 6-05 tablet by [facility] tablet 00:00: mouth [place] 00 every 6 [facility] (six) Branch hours as needed for Nausea and Vomiting (N/V). ondansetron 2018-0 Yes 4mg Take 1 [facility] 4 mg 6-05 tablet by [facility] disintegrat 00:00: mouth [place] ing tablet 00 every 8 [facility] (eight) Branch hours as needed for Nausea and Vomiting (N/V). proMETHazin 2018-0 Yes 25mg Take 1 [facility] 25 mg 6-05 tablet by [facility] tablet 00:00: mouth [place] 00 every 6 [facility] (six) Branch hours as needed for Nausea and Vomiting (N/V). ondansetron 2018-0 Yes 4mg Take 1 [facility] 4 mg 6-05 tablet by [facility] disintegrat 00:00: mouth [place] ing tablet 00 every 8 [facility] (eight) Branch hours as needed for Nausea and Vomiting (N/V). proMETHazin 2018-0 Yes 25mg Take 1 [facility] 25 mg 6-05 tablet by [facility] tablet 00:00: mouth [place] 00 every 6 [facility] (six) Branch hours as needed for Nausea and Vomiting (N/V). ondansetron 2018-0 Yes 4mg Take 1 [facility] 4 mg 6-05 tablet by [facility] disintegrat 00:00: mouth [place] ing tablet 00 every 8 [facility] (eight) Branch hours as needed for Nausea and Vomiting (N/V). proMETHazin 2018-0 Yes 25mg Take 1 [facility] 25 mg 6-05 tablet by [facility] tablet 00:00: mouth [place] 00 every 6 [facility] (six) Branch hours as needed for Nausea and Vomiting (N/V). ondansetron 2018-0 Yes 4mg Take 1 [facility] 4 mg 6-05 tablet by [facility] disintegrat 00:00: mouth [place] ing tablet 00 every 8 [facility] (eight) Branch hours as needed for Nausea and Vomiting (N/V). proMETHazin 2018-0 Yes 25mg Take 1 [facility] 25 mg 6-05 tablet by [facility] tablet 00:00: mouth [place] 00 every 6 [facility] (six) Branch hours as needed for Nausea and Vomiting (N/V). ondansetron 2018-0 Yes 4mg Take 1 [facility] 4 mg 6-05 tablet by [facility] disintegrat 00:00: mouth [place] ing tablet 00 every 8 [facility] (eight) [facility] hours as needed for Nausea and Vomiting (N/V). proMETHazin 2018-0 Yes 25mg Take 1 [facility] 25 mg 6-05 tablet by [facility] tablet 00:00: mouth [place] 00 every 6 [facility] (six) Branch hours as needed for Nausea and Vomiting (N/V). ondansetron 2018-0 Yes 4mg Take 1 [facility] 4 mg 6-05 tablet by [facility] disintegrat 00:00: mouth [place] ing tablet 00 every 8 [facility] (eight) Branch hours as needed for Nausea and Vomiting (N/V). proMETHazin 2018-0 Yes 25mg Take 1 [facility] 25 mg 6-05 tablet by [facility] tablet 00:00: mouth [place] 00 every 6 Medical (six) Branch hours as needed for Nausea and Vomiting (N/V). ondansetron 2018-0 Yes 4mg Take 1 [facility] 4 mg 6-05 tablet by [facility] disintegrat 00:00: mouth [place] ing tablet 00 every 8 [facility] (eight) Branch hours as needed for Nausea and Vomiting (N/V). proMETHazin 2018-0 Yes 25mg Take 1 [facility] 25 mg 6-05 tablet by [facility] tablet 00:00: mouth [place] 00 every 6 [facility] (six) Branch hours as needed for Nausea and Vomiting (N/V). ondansetron 2018-0 Yes 4mg Take 1 [facility] 4 mg 6-05 tablet by [facility] disintegrat 00:00: mouth [place] ing tablet 00 every 8 [facility] (eight) Branch hours as needed for Nausea and Vomiting (N/V). proMETHazin 2018-0 Yes 25mg Take 1 [facility] 25 mg 6-05 tablet by [facility] tablet 00:00: mouth [place] 00 every 6 Medical (six) Branch hours as needed for Nausea and Vomiting (N/V). ondansetron 2018-0 Yes 4mg Take 1 [facility] 4 mg 6-05 tablet by [facility] disintegrat 00:00: mouth [place] ing tablet 00 every 8 [facility] (eight) Branch hours as needed for Nausea and Vomiting (N/V). proMETHazin 2018-0 Yes 25mg Take 1 [facility] 25 mg 6-05 tablet by [facility] tablet 00:00: mouth [place] 00 every 6 [facility] (six) Branch hours as needed for Nausea and Vomiting (N/V). ondansetron 2018-0 Yes 4mg Take 1 [facility] 4 mg 6-05 tablet by [facility] disintegrat 00:00: mouth [place] ing tablet 00 every 8 [facility] (eight) Branch hours as needed for Nausea and Vomiting (N/V). proMETHazin 2018-0 Yes 25mg Take 1 [facility] 25 mg 6-05 tablet by [facility] tablet 00:00: mouth [place] 00 every 6 [facility] (six) Branch hours as needed for Nausea and Vomiting (N/V). ondansetron 2018-0 Yes 4mg Take 1 [facility] 4 mg 6-05 tablet by [facility] disintegrat 00:00: mouth [place] ing tablet 00 every 8 [facility] (eight) Branch hours as needed for Nausea and Vomiting (N/V). proMETHazin 2018-0 Yes 25mg Take 1 [facility] 25 mg 6-05 tablet by [facility] tablet 00:00: mouth [place] 00 every 6 [facility] (six) Branch hours as needed for Nausea and Vomiting (N/V). ondansetron 2018-0 Yes 4mg Take 1 [facility] 4 mg 6-05 tablet by [facility] disintegrat 00:00: mouth [place] ing tablet 00 every 8 [facility] (eight) Branch hours as needed for Nausea and Vomiting (N/V). proMETHazin 2018-0 Yes 25mg Take 1 [facility] 25 mg 6-05 tablet by [facility] tablet 00:00: mouth [place] 00 every 6 [facility] (six) Branch hours as needed for Nausea and Vomiting (N/V). ondansetron 2018-0 Yes 4mg Take 1 [facility] 4 mg 6-05 tablet by [facility] disintegrat 00:00: mouth [place] ing tablet 00 every 8 [facility] (eight) Branch hours as needed for Nausea and Vomiting (N/V). proMETHazin 2018-0 Yes 25mg Take 1 [facility] 25 mg 6-05 tablet by [facility] tablet 00:00: mouth [place] 00 every 6 [facility] (six) Branch hours as needed for Nausea and Vomiting (N/V). ondansetron 2018-0 Yes 4mg Take 1 [facility] 4 mg 6-05 tablet by [facility] disintegrat 00:00: mouth [place] ing tablet 00 every 8 [facility] (eight) Branch hours as needed for Nausea and Vomiting (N/V). proMETHazin 2018-0 Yes 25mg Take 1 [facility] 25 mg 6-05 tablet by [facility] tablet 00:00: mouth [place] 00 every 6 Medical (six) Branch hours as needed for Nausea and Vomiting (N/V). ondansetron 2018-0 Yes 4mg Take 1 [facility] 4 mg 6-05 tablet by [facility] disintegrat 00:00: mouth [place] ing tablet 00 every 8 [facility] (eight) Branch hours as needed for Nausea and Vomiting (N/V). proMETHazin 2018-0 Yes 25mg Take 1 [facility] 25 mg 6-05 tablet by [facility] tablet 00:00: mouth [place] 00 every 6 Medical (six) Branch hours as needed for Nausea and Vomiting (N/V). ondansetron 2018-0 Yes 4mg Take 1 [facility] 4 mg 6-05 tablet by [facility] disintegrat 00:00: mouth [place] ing tablet 00 every 8 [facility] (eight) Branch hours as needed for Nausea and Vomiting (N/V). proMETHazin 2018-0 Yes 25mg Take 1 [facility] 25 mg 6-05 tablet by [facility] tablet 00:00: mouth [place] 00 every 6 Medical (six) Branch hours as needed for Nausea and Vomiting (N/V). ondansetron 2018-0 Yes 4mg Take 1 [facility] 4 mg 6-05 tablet by [facility] disintegrat 00:00: mouth [place] ing tablet 00 every 8 [facility] (eight) Branch hours as needed for Nausea and Vomiting (N/V). proMETHazin 2018-0 Yes 25mg Take 1 [facility] 25 mg 6-05 tablet by [facility] tablet 00:00: mouth [place] 00 every 6 [facility] (six) Branch hours as needed for Nausea and Vomiting (N/V). ondansetron 2018-0 Yes 4mg Take 1 [facility] 4 mg 6-05 tablet by [facility] disintegrat 00:00: mouth [place] ing tablet 00 every 8 [facility] (eight) Branch hours as needed for Nausea and Vomiting (N/V). proMETHazin 2018-0 Yes 25mg Take 1 [facility] 25 mg 6-05 tablet by [facility] tablet 00:00: mouth [place] 00 every 6 Medical (six) Branch hours as needed for Nausea and Vomiting (N/V). ondansetron 2018-0 Yes 4mg Take 1 [facility] 4 mg 6-05 tablet by [facility] disintegrat 00:00: mouth [place] ing tablet 00 every 8 [facility] (eight) Branch hours as needed for Nausea and Vomiting (N/V). proMETHazin 2018-0 Yes 25mg Take 1 [facility] 25 mg 6-05 tablet by [facility] tablet 00:00: mouth [place] 00 every 6 Medical (six) Branch hours as needed for Nausea and Vomiting (N/V). ondansetron 2018-0 Yes 4mg Take 1 [facility] 4 mg 6-05 tablet by [facility] disintegrat 00:00: mouth [place] ing tablet 00 every 8 [facility] (eight) Branch hours as needed for Nausea and Vomiting (N/V). proMETHazin 2018-0 Yes 25mg Take 1 [facility] 25 mg 6-05 tablet by [facility] tablet 00:00: mouth [place] 00 every 6 [facility] (six) Branch hours as needed for Nausea and Vomiting (N/V). ondansetron 2018-0 Yes 4mg Take 1 [facility] 4 mg 6-05 tablet by [facility] disintegrat 00:00: mouth [place] ing tablet 00 every 8 [facility] (eight) Branch hours as needed for Nausea and Vomiting (N/V). proMETHazin 2018-0 Yes 25mg Take 1 [facility] 25 mg 6-05 tablet by [facility] tablet 00:00: mouth [place] 00 every 6 [facility] (six) Branch hours as needed for Nausea and Vomiting (N/V). ondansetron 2018-0 Yes 4mg Take 1 [facility] 4 mg 6-05 tablet by [facility] disintegrat 00:00: mouth [place] ing tablet 00 every 8 [facility] (eight) Branch hours as needed for Nausea and Vomiting (N/V). proMETHazin 2018-0 Yes 25mg Take 1 [facility] 25 mg 6-05 tablet by [facility] tablet 00:00: mouth [place] 00 every 6 [facility] (six) Branch hours as needed for Nausea and Vomiting (N/V). ondansetron 2018-0 Yes 4mg Take 1 [facility] 4 mg 6-05 tablet by [facility] disintegrat 00:00: mouth [place] ing tablet 00 every 8 [facility] (eight) Branch hours as needed for Nausea and Vomiting (N/V). proMETHazin 2018-0 Yes 25mg Take 1 [facility] 25 mg 6-05 tablet by [facility] tablet 00:00: mouth [place] 00 every 6 Medical (six) Branch hours as needed for Nausea and Vomiting (N/V). ondansetron 2018-0 Yes 4mg Take 1 [facility] 4 mg 6-05 tablet by [facility] disintegrat 00:00: mouth [place] ing tablet 00 every 8 [facility] (eight) Branch hours as needed for Nausea and Vomiting (N/V). proMETHazin 2018-0 Yes 25mg Take 1 [facility] 25 mg 6-05 tablet by [facility] tablet 00:00: mouth [place] 00 every 6 Medical (six) Branch hours as needed for Nausea and Vomiting (N/V). ondansetron 2018-0 Yes 4mg Take 1 [facility] 4 mg 6-05 tablet by [facility] disintegrat 00:00: mouth [place] ing tablet 00 every 8 [facility] (eight) Branch hours as needed for Nausea and Vomiting (N/V). proMETHazin 2018-0 Yes 25mg Take 1 [facility] 25 mg 6-05 tablet by [facility] tablet 00:00: mouth [place] 00 every 6 Medical (six) Branch hours as needed for Nausea and Vomiting (N/V). ondansetron 2018-0 Yes 4mg Take 1 [facility] 4 mg 6-05 tablet by [facility] disintegrat 00:00: mouth [place] ing tablet 00 every 8 [facility] (eight) Branch hours as needed for Nausea and Vomiting (N/V). proMETHazin 2018-0 Yes 25mg Take 1 [facility] 25 mg 6-05 tablet by [facility] tablet 00:00: mouth [place] 00 every 6 Medical (six) Branch hours as needed for Nausea and Vomiting (N/V). ondansetron 2018-0 Yes 4mg Take 1 [facility] 4 mg 6-05 tablet by [facility] disintegrat 00:00: mouth [place] ing tablet 00 every 8 [facility] (eight) Branch hours as needed for Nausea and Vomiting (N/V). proMETHazin 2018-0 Yes 25mg Take 1 [facility] 25 mg 6-05 tablet by [facility] tablet 00:00: mouth [place] 00 every 6 Medical (six) Branch hours as needed for Nausea and Vomiting (N/V). ondansetron 2018-0 Yes 4mg Take 1 [facility] 4 mg 6-05 tablet by [facility] disintegrat 00:00: mouth [place] ing tablet 00 every 8 [facility] (eight) Branch hours as needed for Nausea and Vomiting (N/V). proMETHazin 2018-0 Yes 25mg Take 1 [facility] 25 mg 6-05 tablet by [facility] tablet 00:00: mouth [place] 00 every 6 Medical (six) Branch hours as needed for Nausea and Vomiting (N/V). ondansetron 2018-0 Yes 4mg Take 1 [facility] 4 mg 6-05 tablet by [facility] disintegrat 00:00: mouth [place] ing tablet 00 every 8 [facility] (eight) Branch hours as needed for Nausea and Vomiting (N/V). proMETHazin 2018-0 Yes 25mg Take 1 [facility] 25 mg 6-05 tablet by [facility] tablet 00:00: mouth [place] 00 every 6 Medical (six) Branch hours as needed for Nausea and Vomiting (N/V). ondansetron 2018-0 Yes 4mg Take 1 [facility] 4 mg 6-05 tablet by [facility] disintegrat 00:00: mouth [place] ing tablet 00 every 8 [facility] (eight) Branch hours as needed for Nausea and Vomiting (N/V). ondansetron 2018-0 Yes 4mg Take 1 [facility] 4 mg 6-05 tablet by [facility] disintegrat 00:00: mouth [place] ing tablet 00 every 8 [facility] (eight) Branch hours as needed for Nausea and Vomiting (N/V). proMETHazin 2018-0 Yes 25mg Take 1 [facility] 25 mg 6-05 tablet by [facility] tablet 00:00: mouth [place] 00 every 6 [facility] (six) Branch hours as needed for Nausea and Vomiting (N/V). proMETHazin 2018-0 Yes 25mg Take 1 [facility] 25 mg 6-05 tablet by [facility] tablet 00:00: mouth [place] 00 every 6 Medical (six) Branch hours as needed for Nausea and Vomiting (N/V). ondansetron 2018-0 Yes 4mg Take 1 [facility] 4 mg 6-05 tablet by [facility] disintegrat 00:00: mouth [place] ing tablet 00 every 8 [facility] (eight) Branch hours as needed for Nausea and Vomiting (N/V). proMETHazin 2018-0 Yes 25mg Take 1 [facility] 25 mg 6-05 tablet by [facility] tablet 00:00: mouth [place] 00 every 6 Medical (six) Branch hours as needed for Nausea and Vomiting (N/V). ondansetron 2018-0 Yes 4mg Take 1 [facility] 4 mg 6-05 tablet by [facility] disintegrat 00:00: mouth [place] ing tablet 00 every 8 [facility] (eight) Branch hours as needed for Nausea and Vomiting (N/V). proMETHazin 2018-0 Yes 25mg Take 1 [facility] 25 mg 6-05 tablet by [facility] tablet 00:00: mouth [place] 00 every 6 Medical (six) Branch hours as needed for Nausea and Vomiting (N/V). ondansetron 2018-0 Yes 4mg Take 1 [facility] 4 mg 6-05 tablet by [facility] disintegrat 00:00: mouth [place] ing tablet 00 every 8 [facility] (eight) Branch hours as needed for Nausea and Vomiting (N/V). proMETHazin 2018-0 Yes 25mg Take 1 [facility] 25 mg 6-05 tablet by [facility] tablet 00:00: mouth [place] 00 every 6 [facility] (six) Branch hours as needed for Nausea and Vomiting (N/V). ondansetron 2018-0 Yes 4mg Take 1 [facility] 4 mg 6-05 tablet by [facility] disintegrat 00:00: mouth [place] ing tablet 00 every 8 [facility] (eight) Branch hours as needed for Nausea and Vomiting (N/V). proMETHazin 2018-0 Yes 25mg Take 1 [facility] 25 mg 6-05 tablet by [facility] tablet 00:00: mouth [place] 00 every 6 [facility] (six) Branch hours as needed for Nausea and Vomiting (N/V). ondansetron 2018-0 Yes 4mg Take 1 [facility] 4 mg 6-05 tablet by [facility] disintegrat 00:00: mouth [place] ing tablet 00 every 8 [facility] (eight) Branch hours as needed for Nausea and Vomiting (N/V). proMETHazin 2018-0 Yes 25mg Take 1 [facility] 25 mg 6-05 tablet by [facility] tablet 00:00: mouth [place] 00 every 6 [facility] (six) Branch hours as needed for Nausea and Vomiting (N/V). ondansetron 2018-0 Yes 4mg Take 1 [facility] 4 mg 6-05 tablet by [facility] disintegrat 00:00: mouth [place] ing tablet 00 every 8 [facility] (eight) Branch hours as needed for Nausea and Vomiting (N/V). proMETHazin 2018-0 Yes 25mg Take 1 [facility] 25 mg 6-05 tablet by [facility] tablet 00:00: mouth [place] 00 every 6 [facility] (six) Branch hours as needed for Nausea and Vomiting (N/V). ondansetron 2018-0 Yes 4mg Take 1 [facility] 4 mg 6-05 tablet by [facility] disintegrat 00:00: mouth [place] ing tablet 00 every 8 [facility] (eight) Branch hours as needed for Nausea and Vomiting (N/V). proMETHazin 2018-0 Yes 25mg Take 1 [facility] 25 mg 6-05 tablet by [facility] tablet 00:00: mouth [place] 00 every 6 [facility] (six) Branch hours as needed for Nausea and Vomiting (N/V). ondansetron 2018-0 Yes 4mg Take 1 [facility] 4 mg 6-05 tablet by [facility] disintegrat 00:00: mouth [place] ing tablet 00 every 8 [facility] (eight) Branch hours as needed for Nausea and Vomiting (N/V). proMETHazin 2018-0 Yes 25mg Take 1 [facility] 25 mg 6-05 tablet by [facility] tablet 00:00: mouth [place] 00 every 6 [facility] (six) Branch hours as needed for Nausea and Vomiting (N/V). ondansetron 2018-0 Yes 4mg Take 1 [facility] 4 mg 6-05 tablet by [facility] disintegrat 00:00: mouth [place] ing tablet 00 every 8 [facility] (eight) Branch hours as needed for Nausea and Vomiting (N/V). proMETHazin 2018-0 Yes 25mg Take 1 [facility] 25 mg 6-05 tablet by [facility] tablet 00:00: mouth [place] 00 every 6 [facility] (six) Branch hours as needed for Nausea and Vomiting (N/V). ondansetron 2018-0 Yes 4mg Take 1 [facility] 4 mg 6-05 tablet by [facility] disintegrat 00:00: mouth [place] ing tablet 00 every 8 [facility] (eight) Branch hours as needed for Nausea and Vomiting (N/V). ondansetron 2018-0 Yes 4mg Take 1 [facility] 4 mg 6-05 tablet by [facility] disintegrat 00:00: mouth [place] ing tablet 00 every 8 [facility] (eight) Branch hours as needed for Nausea and Vomiting (N/V). proMETHazin 2018-0 Yes 25mg Take 1 [facility] 25 mg 6-05 tablet by [facility] tablet 00:00: mouth [place] 00 every 6 [facility] (six) Branch hours as needed for Nausea and Vomiting (N/V). furosemide 2017- Yes [id number] 40mg Take 1 [facility] 40 mg 1-17 tablet by [facility] tablet 00:00: mouth [place] 00 daily. [facility] spironolact 2017-0 Yes [id number] 100mg Take 1 [facility] one 100 mg 1-17 tablet by [facility] tablet 00:00: mouth [place] 00 daily. [facility] amLODIPine 2017-0 Yes [id number] 5mg Take 1 [facility] 5 mg tablet 1-17 tablet by [facility] 00:00: mouth [place] 00 daily. [facility] furosemide 2016-0 Yes [id number] 40mg Take 1 [facility] 40 mg 1-17 tablet by [facility] tablet 00:00: mouth [place] 00 daily. [facility] spironolact 2017-0 Yes [id number] 100mg Take 1 [facility] 100 mg 1-17 tablet by [facility] tablet 00:00: mouth [place] 00 daily. [facility] amLODIPine 2016-0 Yes [id number] 5mg Take 1 [facility] 5 mg tablet 1-17 tablet by [facility] 00:00: mouth [place] 00 daily. [facility] furosemide 0 Yes [id number] 40mg Take 1 [facility] 40 mg 1-17 tablet by [facility] tablet 00:00: mouth [place] 00 daily. [facility] spironolact 0 Yes [id number] 100mg Take 1 [facility] 100 mg 1-17 tablet by [facility] tablet 00:00: mouth [place] 00 daily. [facility] amLODIPine 2016-0 Yes [id number] 5mg Take 1 [facility] 5 mg tablet 1-17 tablet by [facility] 00:00: mouth [place] 00 daily. [facility] furosemide 0 Yes [id number] 40mg Take 1 [facility] 40 mg 1-17 tablet by [facility] tablet 00:00: mouth [place] 00 daily. [facility] spironolact 2016-0 Yes [id number] 100mg Take 1 [facility] 100 mg 1-17 tablet by [facility] tablet 00:00: mouth [place] 00 daily. [facility] amLODIPine 2016-0 Yes [id number] 5mg Take 1 [facility] 5 mg tablet 1-17 tablet by [facility] of 00:00: mouth [place] 00 daily. [facility] furosemide 2016-0 Yes [id number] 40mg Take 1 [facility] 40 mg 1-17 tablet by [facility] tablet 00:00: mouth [place] 00 daily. [facility] furosemide 2016-0 Yes [id number] 40mg Take 1 [facility] 40 mg 1-17 tablet by [facility] tablet 00:00: mouth [place] 00 daily. [facility] spironolact 2016-0 Yes [id number] 100mg Take 1 [facility] one 100 mg 1-17 tablet by [facility] tablet 00:00: mouth [place] 00 daily. [facility] amLODIPine 2016-0 Yes [id number] 5mg Take 1 [facility] 5 mg tablet 1-17 tablet by [facility] 00:00: mouth [place] 00 daily. [facility] spironolact 2017-0 Yes [id number] 100mg Take 1 [facility] one 100 mg 1-17 tablet by [facility] tablet 00:00: mouth [place] 00 daily. [facility] furosemide 2016-0 Yes [id number] 40mg Take 1 [facility] 40 mg 1-17 tablet by [facility] tablet 00:00: mouth [place] 00 daily. [facility] spironolact 2016-0 Yes [id number] 100mg Take 1 [facility] one 100 mg 1-17 tablet by [facility] tablet 00:00: mouth [place] 00 daily. [facility] amLODIPine 2016-0 Yes [id number] 5mg Take 1 [facility] 5 mg tablet 1-17 tablet by [facility] 00:00: mouth [place] 00 daily. [facility] amLODIPine 0 Yes [id number] 5mg Take 1 [facility] 5 mg tablet 1-17 tablet by [facility] 00:00: mouth [place] 00 daily. [facility] furosemide 2016-0 Yes [id number] 40mg Take 1 [facility] 40 mg 1-17 tablet by [facility] tablet 00:00: mouth [place] 00 daily. [facility] spironolact 2016-0 Yes [id number] 100mg Take 1 [facility] one 100 mg 1-17 tablet by [facility] tablet 00:00: mouth [place] 00 daily. [facility] amLODIPine 2016-0 Yes [id number] 5mg Take 1 [facility] 5 mg tablet 1-17 tablet by [facility] 00:00: mouth [place] 00 daily. [facility] furosemide 2016-0 Yes [id number] 40mg Take 1 [facility] 40 mg 1-17 tablet by [facility] tablet 00:00: mouth [place] 00 daily. [facility] spironolact 2016-0 Yes [id number] 100mg Take 1 [facility] 100 mg 1-17 tablet by [facility] tablet 00:00: mouth [place] 00 daily. [facility] amLODIPine 2016-0 Yes [id number] 5mg Take 1 [facility] 5 mg tablet 1-17 tablet by [facility] of 00:00: mouth [place] 00 daily. [facility] furosemide 2016-0 Yes [id number] 40mg Take 1 [facility] 40 mg 1-17 tablet by [facility] of tablet 00:00: mouth [place] 00 daily. [facility] spironolact 2016-0 Yes [id number] 100mg Take 1 [facility] one 100 mg 1-17 tablet by [facility] of tablet 00:00: mouth [place] 00 daily. [facility] amLODIPine 2016-0 Yes [id number] 5mg Take 1 [facility] 5 mg tablet 1-17 tablet by [facility] 00:00: mouth [place] 00 daily. [facility] furosemide 2016-0 Yes [id number] 40mg Take 1 [facility] 40 mg 1-17 tablet by [facility] tablet 00:00: mouth [place] 00 daily. [facility] spironolact 2017-0 Yes [id number] 100mg Take 1 [facility] one 100 mg 1-17 tablet by [facility] tablet 00:00: mouth [place] 00 daily. [facility] amLODIPine 0 Yes [id number] 5mg Take 1 [facility] 5 mg tablet 1-17 tablet by [facility] of 00:00: mouth [place] 00 daily. [facility] furosemide 0 Yes [id number] 40mg Take 1 [facility] 40 mg 1-17 tablet by [facility] tablet 00:00: mouth [place] 00 daily. [facility] spironolact 2016-0 Yes [id number] 100mg Take 1 [facility] one 100 mg 1-17 tablet by [facility] tablet 00:00: mouth [place] 00 daily. [facility] amLODIPine 0 Yes [id number] 5mg Take 1 [facility] 5 mg tablet 1-17 tablet by [facility] of 00:00: mouth [place] 00 daily. [facility] furosemide 2016-0 Yes [id number] 40mg Take 1 [facility] 40 mg 1-17 tablet by [facility] tablet 00:00: mouth [place] 00 daily. [facility] spironolact 2016-0 Yes [id number] 100mg Take 1 [facility] one 100 mg 1-17 tablet by [facility] tablet 00:00: mouth [place] 00 daily. [facility] amLODIPine 2016-0 Yes [id number] 5mg Take 1 [facility] 5 mg tablet 1-17 tablet by [facility] of 00:00: mouth [place] 00 daily. [facility] furosemide 2016-0 Yes [id number] 40mg Take 1 [facility] 40 mg 1-17 tablet by [facility] of tablet 00:00: mouth [place] 00 daily. [facility] spironolact 2016-0 Yes [id number] 100mg Take 1 [facility] one 100 mg 1-17 tablet by [facility] of tablet 00:00: mouth [place] 00 daily. [facility] amLODIPine 2016-0 Yes [id number] 5mg Take 1 [facility] 5 mg tablet 1-17 tablet by [facility] of 00:00: mouth [place] 00 daily. [facility] furosemide 2017-0 Yes [id number] 40mg Take 1 [facility] 40 mg 1-17 tablet by [facility] of tablet 00:00: mouth [place] 00 daily. [facility] spironolact 2016-0 Yes [id number] 100mg Take 1 [facility] one 100 mg 1-17 tablet by [facility] of tablet 00:00: mouth [place] 00 daily. [facility] amLODIPine 0 Yes [id number] 5mg Take 1 [facility] 5 mg tablet 1-17 tablet by [facility] of 00:00: mouth [place] 00 daily. [facility] furosemide Yes [id number] 40mg Take 1 [facility] 40 mg 1-17 tablet by [facility] of tablet 00:00: mouth [place] 00 daily. [facility] spironolact Yes [id number] 100mg Take 1 [facility] one 100 mg 1-17 tablet by [facility] of tablet 00:00: mouth [place] 00 daily. [facility] amLODIPine Yes [id number] 5mg Take 1 [facility] 5 mg tablet 1-17 tablet by [facility] of 00:00: mouth [place] 00 daily. [facility] furosemide Yes [id number] 40mg Take 1 [facility] 40 mg 1-17 tablet by [facility] of tablet 00:00: mouth [place] 00 daily. [facility] spironolact Yes [id number] 100mg Take 1 [facility] one 100 mg 1-17 tablet by [facility] of tablet 00:00: mouth [place] 00 daily. [facility] amLODIPine Yes [id number] 5mg Take 1 [facility] 5 mg tablet 1-17 tablet by [facility] of 00:00: mouth [place] 00 daily. [facility] furosemide 0 Yes [id number] 40mg Take 1 [facility] 40 mg 1-17 tablet by [facility] tablet 00:00: mouth [place] 00 daily. [facility] spironolact Yes [id number] 100mg Take 1 [facility] one 100 mg 1-17 tablet by [facility] of tablet 00:00: mouth [place] 00 daily. [facility] amLODIPine 0 Yes [id number] 5mg Take 1 [facility] 5 mg tablet 1-17 tablet by [facility] of 00:00: mouth [place] 00 daily. [facility] furosemide Yes [id number] 40mg Take 1 [facility] 40 mg 1-17 tablet by [facility] of tablet 00:00: mouth [place] 00 daily. [facility] furosemide Yes [id number] 40mg Take 1 [facility] 40 mg 1-17 tablet by [facility] of tablet 00:00: mouth [place] 00 daily. [facility] spironolact Yes [id number] 100mg Take 1 [facility] one 100 mg 1-17 tablet by [facility] of tablet 00:00: mouth [place] 00 daily. [facility] amLODIPine Yes [id number] 5mg Take 1 [facility] 5 mg tablet 1-17 tablet by [facility] of 00:00: mouth [place] 00 daily. [facility] spironolact Yes [id number] 100mg Take 1 [facility] one 100 mg 1-17 tablet by [facility] tablet 00:00: mouth [place] 00 daily. [facility] furosemide Yes [id number] 40mg Take 1 [facility]-17 tablet by [facility] tablet 00:00: mouth [place] 00 daily. [facility] spironolact Yes [id number] 100mg Take 1 [facility] 100 mg 1-17 tablet by [facility] tablet 00:00: mouth [place] 00 daily. [facility] amLODIPine Yes [id number] 5mg Take 1 [facility] 5 mg tablet 1-17 tablet by [facility] 00:00: mouth [place] 00 daily. [facility] amLODIPine Yes [id number] 5mg Take 1 [facility] 5 mg tablet 1-17 tablet by [facility] 00:00: mouth [place] 00 daily. [facility] furosemide Yes [id number] 40mg Take 1 [facility] 40 mg 1-17 tablet by [facility] tablet 00:00: mouth [place] 00 daily. [facility] spironolact Yes [id number] 100mg Take 1 [facility] 100 mg 1-17 tablet by [facility] tablet 00:00: mouth [place] 00 daily. [facility] amLODIPine Yes [id number] 5mg Take 1 [facility] 5 mg tablet 1-17 tablet by [facility] 00:00: mouth [place] 00 daily. [facility] furosemide Yes [id number] 40mg Take 1 [facility] 40 mg 1-17 tablet by [facility] tablet 00:00: mouth [place] 00 daily. [facility] spironolact Yes [id number] 100mg Take 1 [facility] 100 mg 1-17 tablet by [facility] tablet 00:00: mouth [place] 00 daily. [facility] amLODIPine 2017-0 Yes [id number] 5mg Take 1 [facility] 5 mg tablet 1-17 tablet by [facility] 00:00: mouth [place] 00 daily. [facility] furosemide 2016-0 Yes [id number] 40mg Take 1 [facility] 40 mg 1-17 tablet by [facility] tablet 00:00: mouth [place] 00 daily. [facility] spironolact 2017-0 Yes [id number] 100mg Take 1 [facility] 100 mg 1-17 tablet by [facility] tablet 00:00: mouth [place] 00 daily. [facility] amLODIPine 0 Yes [id number] 5mg Take 1 [facility] 5 mg tablet 1-17 tablet by [facility] 00:00: mouth [place] 00 daily. [facility] furosemide 0 Yes [id number] 40mg Take 1 [facility] 40 mg 1-17 tablet by [facility] tablet 00:00: mouth [place] 00 daily. [facility] spironolact 0 Yes [id number] 100mg Take 1 [facility] 100 mg 1-17 tablet by [facility] tablet 00:00: mouth [place] 00 daily. [facility] amLODIPine 0 Yes [id number] 5mg Take 1 [facility] 5 mg tablet 1-17 tablet by [facility] 00:00: mouth [place] 00 daily. [facility] furosemide 0 Yes [id number] 40mg Take 1 [facility] 40 mg 1-17 tablet by [facility] tablet 00:00: mouth [place] 00 daily. [facility] spironolact 0 Yes [id number] 100mg Take 1 [facility] 100 mg 1-17 tablet by [facility] tablet 00:00: mouth [place] 00 daily. [facility] amLODIPine 2016-0 Yes [id number] 5mg Take 1 [facility] 5 mg tablet 1-17 tablet by [facility] 00:00: mouth [place] 00 daily. [facility] furosemide 0 Yes [id number] 40mg Take 1 [facility] 40 mg 1-17 tablet by [facility] tablet 00:00: mouth [place] 00 daily. [facility] spironolact 2016-0 Yes [id number] 100mg Take 1 [facility] 100 mg 1-17 tablet by [facility] tablet 00:00: mouth [place] 00 daily. [facility] amLODIPine 2016-0 Yes [id number] 5mg Take 1 [facility] 5 mg tablet 1-17 tablet by [facility] 00:00: mouth [place] 00 daily. [facility] furosemide 2016-0 Yes [id number] 40mg Take 1 [facility] 40 mg 1-17 tablet by [facility] tablet 00:00: mouth [place] 00 daily. [facility] spironolact 2016-0 Yes [id number] 100mg Take 1 [facility] 100 mg 1-17 tablet by [facility] tablet 00:00: mouth [place] 00 daily. [facility] amLODIPine 0 Yes [id number] 5mg Take 1 [facility] 5 mg tablet 1-17 tablet by [facility] 00:00: mouth [place] 00 daily. [facility] furosemide 2016-0 Yes [id number] 40mg Take 1 [facility] 40 mg 1-17 tablet by [facility] tablet 00:00: mouth [place] 00 daily. [facility] spironolact Yes [id number] 100mg Take 1 [facility] 100 mg 1-17 tablet by [facility] tablet 00:00: mouth [place] 00 daily. [facility] amLODIPine 0 Yes [id number] 5mg Take 1 [facility] 5 mg tablet 1-17 tablet by [facility] 00:00: mouth [place] 00 daily. [facility] furosemide 0 Yes [id number] 40mg Take 1 [facility] 40 mg 1-17 tablet by [facility] tablet 00:00: mouth [place] 00 daily. [facility] spironolact Yes [id number] 100mg Take 1 [facility] 100 mg 1-17 tablet by [facility] tablet 00:00: mouth [place] 00 daily. [facility] amLODIPine 0 Yes [id number] 5mg Take 1 [facility] 5 mg tablet 1-17 tablet by [facility] 00:00: mouth [place] 00 daily. [facility] furosemide 2016-0 Yes [id number] 40mg Take 1 [facility] 40 mg 1-17 tablet by [facility] tablet 00:00: mouth [place] 00 daily. [facility] spironolact 0 Yes [id number] 100mg Take 1 [facility] 100 mg 1-17 tablet by [facility] tablet 00:00: mouth [place] 00 daily. [facility] amLODIPine 2016-0 Yes [id number] 5mg Take 1 [facility] 5 mg tablet 1-17 tablet by [facility] 00:00: mouth [place] 00 daily. [facility] furosemide 2016-0 Yes [id number] 40mg Take 1 [facility] 40 mg 1-17 tablet by [facility] tablet 00:00: mouth [place] 00 daily. [facility] spironolact 0 Yes [id number] 100mg Take 1 [facility] 100 mg 1-17 tablet by [facility] tablet 00:00: mouth [place] 00 daily. [facility] amLODIPine 2016-0 Yes [id number] 5mg Take 1 [facility] 5 mg tablet 1-17 tablet by [facility] 00:00: mouth [place] 00 daily. [facility] furosemide 2016-0 Yes [id number] 40mg Take 1 [facility] 40 mg 1-17 tablet by [facility] tablet 00:00: mouth [place] 00 daily. [facility] spironolact 2016-0 Yes [id number] 100mg Take 1 [facility] 100 mg 1-17 tablet by [facility] tablet 00:00: mouth [place] 00 daily. [facility] amLODIPine 0 Yes [id number] 5mg Take 1 [facility] 5 mg tablet 1-17 tablet by [facility] 00:00: mouth [place] 00 daily. [facility] furosemide 0 Yes [id number] 40mg Take 1 [facility] 40 mg 1-17 tablet by [facility] tablet 00:00: mouth [place] 00 daily. [facility] spironolact Yes [id number] 100mg Take 1 [facility] 100 mg 1-17 tablet by [facility] tablet 00:00: mouth [place] 00 daily. [facility] amLODIPine Yes [id number] 5mg Take 1 [facility] 5 mg tablet 1-17 tablet by [facility] 00:00: mouth [place] 00 daily. [facility] furosemide 0 Yes [id number] 40mg Take 1 [facility] 40 mg 1-17 tablet by [facility] tablet 00:00: mouth [place] 00 daily. [facility] spironolact 2016-0 Yes [id number] 100mg Take 1 [facility] 100 mg 1-17 tablet by [facility] tablet 00:00: mouth [place] 00 daily. [facility] amLODIPine 0 Yes [id number] 5mg Take 1 [facility] 5 mg tablet 1-17 tablet by [facility] 00:00: mouth [place] 00 daily. [facility] furosemide 2016-0 Yes [id number] 40mg Take 1 [facility] 40 mg 1-17 tablet by [facility] tablet 00:00: mouth [place] 00 daily. [facility] spironolact 2016-0 Yes [id number] 100mg Take 1 [facility] 100 mg 1-17 tablet by [facility] tablet 00:00: mouth [place] 00 daily. [facility] amLODIPine 0 Yes [id number] 5mg Take 1 [facility] 5 mg tablet 1-17 tablet by [facility] 00:00: mouth [place] 00 daily. [facility] furosemide 2016-0 Yes [id number] 40mg Take 1 [facility] 40 mg 1-17 tablet by [facility] tablet 00:00: mouth [place] 00 daily. [facility] spironolact 2017-0 Yes [id number] 100mg Take 1 [facility] 100 mg 1-17 tablet by [facility] tablet 00:00: mouth [place] 00 daily. [facility] amLODIPine 2016-0 Yes [id number] 5mg Take 1 [facility] 5 mg tablet 1-17 tablet by [facility] 00:00: mouth [place] 00 daily. [facility] furosemide 0 Yes [id number] 40mg Take 1 [facility] 40 mg 1-17 tablet by [facility] tablet 00:00: mouth [place] 00 daily. [facility] spironolact 0 Yes [id number] 100mg Take 1 [facility] 100 mg 1-17 tablet by [facility] tablet 00:00: mouth [place] 00 daily. [facility] amLODIPine 0 Yes [id number] 5mg Take 1 [facility] 5 mg tablet 1-17 tablet by [facility] 00:00: mouth [place] 00 daily. [facility] furosemide 0 Yes [id number] 40mg Take 1 [facility] 40 mg 1-17 tablet by [facility] tablet 00:00: mouth [place] 00 daily. [facility] spironolact 2016-0 Yes [id number] 100mg Take 1 [facility] 100 mg 1-17 tablet by [facility] tablet 00:00: mouth [place] 00 daily. [facility] amLODIPine 2016-0 Yes [id number] 5mg Take 1 [facility] 5 mg tablet 1-17 tablet by [facility] 00:00: mouth [place] 00 daily. [facility] furosemide 2016-0 Yes [id number] 40mg Take 1 [facility] 40 mg 1-17 tablet by [facility] tablet 00:00: mouth [place] 00 daily. [facility] spironolact 2016-0 Yes [id number] 100mg Take 1 [facility] 100 mg 1-17 tablet by [facility] tablet 00:00: mouth [place] 00 daily. [facility] amLODIPine 2016-0 Yes [id number] 5mg Take 1 [facility] 5 mg tablet 1-17 tablet by [facility] 00:00: mouth [place] 00 daily. [facility] furosemide 2016-0 Yes [id number] 40mg Take 1 [facility] 40 mg 1-17 tablet by [facility] tablet 00:00: mouth [place] 00 daily. [facility] spironolact 2016-0 Yes [id number] 100mg Take 1 [facility] 100 mg 1-17 tablet by [facility] tablet 00:00: mouth [place] 00 daily. [facility] amLODIPine 2016-0 Yes [id number] 5mg Take 1 [facility] 5 mg tablet 1-17 tablet by [facility] 00:00: mouth [place] 00 daily. [facility] furosemide 2016-0 Yes [id number] 40mg Take 1 [facility] 40 mg 1-17 tablet by [facility] tablet 00:00: mouth [place] 00 daily. [facility] spironolact 2016-0 Yes [id number] 100mg Take 1 [facility] 100 mg 1-17 tablet by [facility] tablet 00:00: mouth [place] 00 daily. [facility] amLODIPine 0 Yes [id number] 5mg Take 1 [facility] 5 mg tablet 1-17 tablet by [facility] 00:00: mouth [place] 00 daily. [facility] furosemide 2016-0 Yes [id number] 40mg Take 1 [facility] 40 mg 1-17 tablet by [facility] tablet 00:00: mouth [place] 00 daily. [facility] spironolact 0 Yes [id number] 100mg Take 1 [facility] one 100 mg 1-17 tablet by [facility] tablet 00:00: mouth [place] 00 daily. [facility] amLODIPine 2016-0 Yes [id number] 5mg Take 1 [facility] 5 mg tablet 1-17 tablet by [facility] 00:00: mouth [place] 00 daily. [facility] furosemide 2016-0 Yes [id number] 40mg Take 1 [facility] 40 mg 1-17 tablet by [facility] tablet 00:00: mouth [place] 00 daily. [facility] spironolact 2016-0 Yes [id number] 100mg Take 1 [facility] 100 mg 1-17 tablet by [facility] tablet 00:00: mouth [place] 00 daily. [facility] amLODIPine 2016-0 Yes [id number] 5mg Take 1 [facility] 5 mg tablet 1-17 tablet by [facility] 00:00: mouth [place] 00 daily. [facility] furosemide 2016-0 Yes [id number] 40mg Take 1 [facility] 40 mg 1-17 tablet by [facility] tablet 00:00: mouth [place] 00 daily. [facility] spironolact 2016-0 Yes [id number] 100mg Take 1 [facility] 100 mg 1-17 tablet by [facility] tablet 00:00: mouth [place] 00 daily. [facility] amLODIPine 2016-0 Yes [id number] 5mg Take 1 [facility] 5 mg tablet 1-17 tablet by [facility] 00:00: mouth [place] 00 daily. [facility] furosemide 2016-0 Yes [id number] 40mg Take 1 [facility] 40 mg 1-17 tablet by [facility] tablet 00:00: mouth [place] 00 daily. [facility] spironolact 2016-0 Yes [id number] 100mg Take 1 [facility] 100 mg 1-17 tablet by [facility] tablet 00:00: mouth [place] 00 daily. [facility] amLODIPine 0 Yes [id number] 5mg Take 1 [facility] 5 mg tablet 1-17 tablet by [facility] of 00:00: mouth [place] 00 daily. [facility] furosemide 0 Yes [id number] 40mg Take 1 [facility] 40 mg 1-17 tablet by [facility] tablet 00:00: mouth [place] 00 daily. [facility] spironolact 2016-0 Yes [id number] 100mg Take 1 [facility] 100 mg 1-17 tablet by [facility] tablet 00:00: mouth [place] 00 daily. [facility] amLODIPine 0 Yes [id number] 5mg Take 1 [facility] 5 mg tablet 1-17 tablet by [facility] 00:00: mouth [place] 00 daily. [facility] furosemide 0 Yes [id number] 40mg Take 1 [facility] 40 mg 1-17 tablet by [facility] tablet 00:00: mouth [place] 00 daily. [facility] spironolact 2016-0 Yes [id number] 100mg Take 1 [facility] 100 mg 1-17 tablet by [facility] tablet 00:00: mouth [place] 00 daily. [facility] amLODIPine 2016-0 Yes [id number] 5mg Take 1 [facility] 5 mg tablet 1-17 tablet by [facility] of 00:00: mouth [place] 00 daily. [facility] furosemide 2016-0 Yes [id number] 40mg Take 1 [facility] 40 mg 1-17 tablet by [facility] tablet 00:00: mouth [place] 00 daily. [facility] spironolact 2016-0 Yes [id number] 100mg Take 1 [facility] 100 mg 1-17 tablet by [facility] tablet 00:00: mouth [place] 00 daily. [facility] amLODIPine 2016-0 Yes [id number] 5mg Take 1 [facility] 5 mg tablet 1-17 tablet by [facility] of 00:00: mouth [place] 00 daily. [facility] furosemide 2017-0 Yes [id number] 40mg Take 1 [facility] 40 mg 1-17 tablet by [facility] tablet 00:00: mouth [place] 00 daily. [facility] spironolact 2016-0 Yes [id number] 100mg Take 1 [facility] one 100 mg 1-17 tablet by [facility] tablet 00:00: mouth [place] 00 daily. [facility] amLODIPine 2016-0 Yes [id number] 5mg Take 1 [facility] 5 mg tablet 1-17 tablet by [facility] 00:00: mouth [place] 00 daily. [facility] furosemide 0 Yes [id number] 40mg Take 1 [facility] 40 mg 1-17 tablet by [facility] tablet 00:00: mouth [place] 00 daily. [facility] spironolact 0 Yes [id number] 100mg Take 1 [facility] 100 mg 1-17 tablet by [facility] tablet 00:00: mouth [place] 00 daily. [facility] amLODIPine 0 Yes [id number] 5mg Take 1 [facility] 5 mg tablet 1-17 tablet by [facility] of 00:00: mouth [place] 00 daily. [facility] furosemide 0 Yes [id number] 40mg Take 1 [facility] 40 mg 1-17 tablet by [facility] tablet 00:00: mouth [place] 00 daily. [facility] spironolact 0 Yes [id number] 100mg Take 1 [facility] one 100 mg 1-17 tablet by [facility] of tablet 00:00: mouth [place] 00 daily. [facility] amLODIPine 0 Yes [id number] 5mg Take 1 [facility] 5 mg tablet 1-17 tablet by [facility] of 00:00: mouth [place] 00 daily. [facility] furosemide 2016-0 Yes [id number] 40mg Take 1 [facility] 40 mg 1-17 tablet by [facility] tablet 00:00: mouth [place] 00 daily. [facility] spironolact 2016-0 Yes [id number] 100mg Take 1 [facility] one 100 mg 1-17 tablet by [facility] tablet 00:00: mouth [place] 00 daily. [facility] amLODIPine 0 Yes [id number] 5mg Take 1 [facility] 5 mg tablet 1-17 tablet by [facility] 00:00: mouth [place] 00 daily. [facility] furosemide 2016-0 Yes [id number] 40mg Take 1 [facility] 40 mg 1-17 tablet by [facility] tablet 00:00: mouth [place] 00 daily. [facility] spironolact 2016-0 Yes [id number] 100mg Take 1 [facility] 100 mg 1-17 tablet by [facility] tablet 00:00: mouth [place] 00 daily. [facility] amLODIPine 0 Yes [id number] 5mg Take 1 [facility] 5 mg tablet 1-17 tablet by [facility] 00:00: mouth [place] 00 daily. [facility] furosemide 2016-0 Yes [id number] 40mg Take 1 [facility] 40 mg 1-17 tablet by [facility] tablet 00:00: mouth [place] 00 daily. [facility] spironolact 0 Yes [id number] 100mg Take 1 [facility] one 100 mg 1-17 tablet by [facility] tablet 00:00: mouth [place] 00 daily. [facility] amLODIPine Yes [id number] 5mg Take 1 [facility] 5 mg tablet 1-17 tablet by [facility] 00:00: mouth [place] 00 daily. [facility] furosemide Yes [id number] 40mg Take 1 [facility] 40 mg 1-17 tablet by [facility] tablet 00:00: mouth [place] 00 daily. [facility] spironolact Yes [id number] 100mg Take 1 [facility] one 100 mg 1-17 tablet by [facility] tablet 00:00: mouth [place] 00 daily. [facility] amLODIPine Yes [id number] 5mg Take 1 [facility] 5 mg tablet 1-17 tablet by [facility] 00:00: mouth [place] 00 daily. [facility] furosemide 0 Yes [id number] 40mg Take 1 [facility] 40 mg 1-17 tablet by [facility] tablet 00:00: mouth [place] 00 daily. [facility] spironolact Yes [id number] 100mg Take 1 [facility] one 100 mg 1-17 tablet by [facility] tablet 00:00: mouth [place] 00 daily. [facility] amLODIPine Yes [id number] 5mg Take 1 [facility] 5 mg tablet 1-17 tablet by [facility] of 00:00: mouth [place] 00 daily. [facility] furosemide 0 Yes [id number] 40mg Take 1 [facility] 40 mg 1-17 tablet by [facility] tablet 00:00: mouth [place] 00 daily. [facility] spironolact Yes [id number] 100mg Take 1 [facility] 100 mg 1-17 tablet by [facility] tablet 00:00: mouth [place] 00 daily. [facility] amLODIPine 0 Yes [id number] 5mg Take 1 [facility] 5 mg tablet 1-17 tablet by [facility] of 00:00: mouth [place] 00 daily. [facility] furosemide 2016-0 Yes [id number] 40mg Take 1 [facility] 40 mg 1-17 tablet by [facility] tablet 00:00: mouth [place] 00 daily. [facility] spironolact 2017-0 Yes [id number] 100mg Take 1 [facility] 100 mg 1-17 tablet by [facility] tablet 00:00: mouth [place] 00 daily. [facility] amLODIPine 0 Yes [id number] 5mg Take 1 [facility] 5 mg tablet 1-17 tablet by [facility] of 00:00: mouth [place] 00 daily. [facility] furosemide 0 Yes [id number] 40mg Take 1 [facility] 40 mg 1-17 tablet by [facility] tablet 00:00: mouth [place] 00 daily. [facility] spironolact 0 Yes [id number] 100mg Take 1 [facility] 100 mg 1-17 tablet by [facility] tablet 00:00: mouth [place] 00 daily. [facility] amLODIPine 0 Yes [id number] 5mg Take 1 [facility] 5 mg tablet 1-17 tablet by [facility] 00:00: mouth [place] 00 daily. [facility] furosemide 0 Yes [id number] 40mg Take 1 [facility] 40 mg 1-17 tablet by [facility] tablet 00:00: mouth [place] 00 daily. [facility] spironolact 0 Yes [id number] 100mg Take 1 [facility] 100 mg 1-17 tablet by [facility] tablet 00:00: mouth [place] 00 daily. [facility] amLODIPine 2016-0 Yes [id number] 5mg Take 1 [facility] 5 mg tablet 1-17 tablet by [facility] 00:00: mouth [place] 00 daily. [facility] furosemide 0 Yes [id number] 40mg Take 1 [facility] 40 mg 1-17 tablet by [facility] tablet 00:00: mouth [place] 00 daily. [facility] spironolact 2016-0 Yes [id number] 100mg Take 1 [facility] 100 mg 1-17 tablet by [facility] tablet 00:00: mouth [place] 00 daily. [facility] amLODIPine 2016-0 Yes [id number] 5mg Take 1 [facility] 5 mg tablet 1-17 tablet by [facility] 00:00: mouth [place] 00 daily. [facility] furosemide 2016-0 Yes [id number] 40mg Take 1 [facility] 40 mg 1-17 tablet by [facility] tablet 00:00: mouth [place] 00 daily. [facility] spironolact 2016-0 Yes [id number] 100mg Take 1 [facility] one 100 mg 1-17 tablet by [facility] tablet 00:00: mouth [place] 00 daily. [facility] amLODIPine 2016-0 Yes [id number] 5mg Take 1 [facility] 5 mg tablet 1-17 tablet by [facility] 00:00: mouth [place] 00 daily. [facility] furosemide 2016-0 Yes [id number] 40mg Take 1 [facility] 40 mg 1-17 tablet by [facility] tablet 00:00: mouth [place] 00 daily. [facility] spironolact 0 Yes [id number] 100mg Take 1 [facility] 100 mg 1-17 tablet by [facility] tablet 00:00: mouth [place] 00 daily. [facility] amLODIPine 0 Yes [id number] 5mg Take 1 [facility] 5 mg tablet 1-17 tablet by [facility] 00:00: mouth [place] 00 daily. [facility] furosemide 0 Yes [id number] 40mg Take 1 [facility] 40 mg 1-17 tablet by [facility] tablet 00:00: mouth [place] 00 daily. [facility] spironolact 0 Yes [id number] 100mg Take 1 [facility] 100 mg 1-17 tablet by [facility] tablet 00:00: mouth [place] 00 daily. [facility] amLODIPine 0 Yes [id number] 5mg Take 1 [facility] 5 mg tablet 1-17 tablet by [facility] 00:00: mouth [place] 00 daily. [facility] furosemide 2016-0 Yes [id number] 40mg Take 1 [facility] 40 mg 1-17 tablet by [facility] tablet 00:00: mouth [place] 00 daily. [facility] spironolact 2016-0 Yes [id number] 100mg Take 1 [facility] one 100 mg 1-17 tablet by [facility] tablet 00:00: mouth [place] 00 daily. [facility] amLODIPine 2016-0 Yes [id number] 5mg Take 1 [facility] 5 mg tablet 1-17 tablet by [facility] 00:00: mouth [place] 00 daily. [facility] furosemide 2016-0 Yes [id number] 40mg Take 1 [facility] 40 mg 1-17 tablet by [facility] tablet 00:00: mouth [place] 00 daily. [facility] spironolact 2016-0 Yes [id number] 100mg Take 1 [facility] 100 mg 1-17 tablet by [facility] tablet 00:00: mouth [place] 00 daily. [facility] amLODIPine 2016-0 Yes [id number] 5mg Take 1 [facility] 5 mg tablet 1-17 tablet by [facility] 00:00: mouth [place] 00 daily. [facility] furosemide 2016-0 Yes [id number] 40mg Take 1 [facility] 40 mg 1-17 tablet by [facility] tablet 00:00: mouth [place] 00 daily. [facility] spironolact 2016-0 Yes [id number] 100mg Take 1 [facility] 100 mg 1-17 tablet by [facility] tablet 00:00: mouth [place] 00 daily. [facility] amLODIPine Yes [id number] 5mg Take 1 [facility] 5 mg tablet 1-17 tablet by [facility] 00:00: mouth [place] 00 daily. [facility] furosemide 0 Yes [id number] 40mg Take 1 [facility] 40 mg 1-17 tablet by [facility] tablet 00:00: mouth [place] 00 daily. [facility] spironolact 2016-0 Yes [id number] 100mg Take 1 [facility] 100 mg 1-17 tablet by [facility] tablet 00:00: mouth [place] 00 daily. [facility] amLODIPine Yes [id number] 5mg Take 1 [facility] 5 mg tablet 1-17 tablet by [facility] 00:00: mouth [place] 00 daily. [facility] furosemide 0 Yes [id number] 40mg Take 1 [facility] 40 mg 1-17 tablet by [facility] tablet 00:00: mouth [place] 00 daily. [facility] spironolact 2016-0 Yes [id number] 100mg Take 1 [facility] 100 mg 1-17 tablet by [facility] tablet 00:00: mouth [place] 00 daily. [facility] amLODIPine 0 Yes [id number] 5mg Take 1 [facility] 5 mg tablet 1-17 tablet by [facility] 00:00: mouth [place] 00 daily. [facility] furosemide 2016-0 Yes [id number] 40mg Take 1 [facility] 40 mg 1-17 tablet by [facility] tablet 00:00: mouth [place] 00 daily. [facility] spironolact 2016-0 Yes [id number] 100mg Take 1 [facility] 100 mg 1-17 tablet by [facility] tablet 00:00: mouth [place] 00 daily. [facility] amLODIPine 2016-0 Yes [id number] 5mg Take 1 [facility] 5 mg tablet 1-17 tablet by [facility] 00:00: mouth [place] 00 daily. [facility] furosemide 2016-0 Yes [id number] 40mg Take 1 [facility] 40 mg 1-17 tablet by [facility] tablet 00:00: mouth [place] 00 daily. [facility] furosemide 2016-0 Yes [id number] 40mg Take 1 [facility] 40 mg 1-17 tablet by [facility] tablet 00:00: mouth [place] 00 daily. [facility] spironolact 2016-0 Yes [id number] 100mg Take 1 [facility] 100 mg 1-17 tablet by [facility] tablet 00:00: mouth [place] 00 daily. [facility] spironolact 0 Yes [id number] 100mg Take 1 [facility] 100 mg 1-17 tablet by [facility] tablet 00:00: mouth [place] 00 daily. [facility] amLODIPine 0 Yes [id number] 5mg Take 1 [facility] 5 mg tablet 1-17 tablet by [facility] 00:00: mouth [place] 00 daily. [facility] amLODIPine Yes [id number] 5mg Take 1 [facility] 5 mg tablet 1-17 tablet by [facility] 00:00: mouth [place] 00 daily. [facility] furosemide 0 Yes [id number] 40mg Take 1 [facility] 40 mg 1-17 tablet by [facility] tablet 00:00: mouth [place] 00 daily. [facility] spironolact 0 Yes [id number] 100mg Take 1 [facility] 100 mg 1-17 tablet by [facility] tablet 00:00: mouth [place] 00 daily. [facility] amLODIPine Yes [id number] 5mg Take 1 [facility] 5 mg tablet 1-17 tablet by [facility] 00:00: mouth [place] 00 daily. [facility] furosemide 2016-0 Yes [id number] 40mg Take 1 [facility] 40 mg 1-17 tablet by [facility] tablet 00:00: mouth [place] 00 daily. [facility] spironolact 2016-0 Yes [id number] 100mg Take 1 [facility] 100 mg 1-17 tablet by [facility] tablet 00:00: mouth [place] 00 daily. [facility] amLODIPine 0 Yes [id number] 5mg Take 1 [facility] 5 mg tablet 1-17 tablet by [facility] 00:00: mouth [place] 00 daily. [facility] furosemide 2016-0 Yes [id number] 40mg Take 1 [facility] 40 mg 1-17 tablet by [facility] tablet 00:00: mouth [place] 00 daily. [facility] spironolact 2017-0 Yes [id number] 100mg Take 1 [facility] 100 mg 1-17 tablet by [facility] tablet 00:00: mouth [place] 00 daily. [facility] amLODIPine 0 Yes [id number] 5mg Take 1 [facility] 5 mg tablet 1-17 tablet by [facility] 00:00: mouth [place] 00 daily. [facility] furosemide 2016-0 Yes [id number] 40mg Take 1 [facility] 40 mg 1-17 tablet by [facility] tablet 00:00: mouth [place] 00 daily. [facility] spironolact 0 Yes [id number] 100mg Take 1 [facility] 100 mg 1-17 tablet by [facility] tablet 00:00: mouth [place] 00 daily. [facility] amLODIPine Yes [id number] 5mg Take 1 [facility] 5 mg tablet 1-17 tablet by [facility] 00:00: mouth [place] 00 daily. [facility] furosemide Yes [id number] 40mg Take 1 [facility] 40 mg 1-17 tablet by [facility] tablet 00:00: mouth [place] 00 daily. [facility] spironolact Yes [id number] 100mg Take 1 [facility] 100 mg 1-17 tablet by [facility] tablet 00:00: mouth [place] 00 daily. [facility] amLODIPine 0 Yes [id number] 5mg Take 1 [facility] 5 mg tablet 1-17 tablet by [facility] 00:00: mouth [place] 00 daily. [facility] furosemide 0 Yes [id number] 40mg Take 1 [facility] 40 mg 1-17 tablet by [facility] tablet 00:00: mouth [place] 00 daily. [facility] spironolact 0 Yes [id number] 100mg Take 1 [facility] 100 mg 1-17 tablet by [facility] tablet 00:00: mouth [place] 00 daily. [facility] amLODIPine 0 Yes [id number] 5mg Take 1 [facility] 5 mg tablet 1-17 tablet by [facility] 00:00: mouth [place] 00 daily. [facility] furosemide 2016-0 Yes [id number] 40mg Take 1 [facility] 40 mg 1-17 tablet by [facility] tablet 00:00: mouth [place] 00 daily. [facility] spironolact 2016- Yes [id number] 100mg Take 1 [facility] 100 mg 1-17 tablet by [facility] tablet 00:00: mouth [place] 00 daily. [facility] amLODIPine 2017-0 Yes [id number] 5mg Take 1 [facility] 5 mg tablet 1-17 tablet by [facility] 00:00: mouth [place] 00 daily. [facility] furosemide 0 Yes [id number] 40mg Take 1 [facility] 40 mg 1-17 tablet by [facility] tablet 00:00: mouth [place] 00 daily. [facility] spironolact 2016- Yes [id number] 100mg Take 1 [facility] 100 mg 1-17 tablet by [facility] tablet 00:00: mouth [place] 00 daily. [facility] amLODIPine 0 Yes [id number] 5mg Take 1 [facility] 5 mg tablet 1-17 tablet by [facility] 00:00: mouth [place] 00 daily. [facility] furosemide Yes [id number] 40mg Take 1 [facility] 40 mg 1-17 tablet by [facility] tablet 00:00: mouth [place] 00 daily. [facility] spironolact Yes [id number] 100mg Take 1 [facility] 100 mg 1-17 tablet by [facility] tablet 00:00: mouth [place] 00 daily. [facility] amLODIPine 0 Yes [id number] 5mg Take 1 [facility] 5 mg tablet 1-17 tablet by [facility] of 00:00: mouth [place] 00 daily. [facility] furosemide Yes [id number] 40mg Take 1 [facility] 40 mg 1-17 tablet by [facility] tablet 00:00: mouth [place] 00 daily. [facility] furosemide Yes [id number] 40mg Take 1 [facility] 40 mg 1-17 tablet by [facility] tablet 00:00: mouth [place] 00 daily. [facility] spironolact 0 Yes [id number] 100mg Take 1 [facility] one 100 mg 1-17 tablet by [facility] tablet 00:00: mouth [place] 00 daily. [facility] amLODIPine 0 Yes [id number] 5mg Take 1 [facility] 5 mg tablet 1-17 tablet by [facility] of 00:00: mouth [place] 00 daily. [facility] spironolact 0 Yes [id number] 100mg Take 1 [facility] one 100 mg 1-17 tablet by [facility] tablet 00:00: mouth [place] 00 daily. [facility] furosemide 2016-0 Yes [id number] 40mg Take 1 [facility] 40 mg 1-17 tablet by [facility] tablet 00:00: mouth [place] 00 daily. [facility] spironolact 2017-0 Yes [id number] 100mg Take 1 [facility] one 100 mg 1-17 tablet by [facility] tablet 00:00: mouth [place] 00 daily. [facility] amLODIPine Yes [id number] 5mg Take 1 [facility] 5 mg tablet 1-17 tablet by [facility] of 00:00: mouth [place] 00 daily. [facility] amLODIPine Yes [id number] 5mg Take 1 [facility] 5 mg tablet 1-17 tablet by [facility] of 00:00: mouth [place] 00 daily. [facility] furosemide Yes [id number] 40mg Take 1 [facility] 40 mg 1-17 tablet by [facility] tablet 00:00: mouth [place] 00 daily. [facility] spironolact Yes [id number] 100mg Take 1 [facility] one 100 mg 1-17 tablet by [facility] of tablet 00:00: mouth [place] 00 daily. [facility] amLODIPine Yes [id number] 5mg Take 1 [facility] 5 mg tablet 1-17 tablet by [facility] of 00:00: mouth [place] 00 daily. [facility] lactulose 2015-11 Yes [id number] 30mL Take 30 mL [facility] (CEPHULAC) 2-12 by mouth 2 [facility] of 10 gram/15 00:00: (two) [place] mL solution 00 times Medical daily. Branch lactulose 2015-11 Yes [id number] 30mL Take 30 mL [facility] (CEPHULAC) 2-12 by mouth 2 [facility] of 10 gram/15 00:00: (two) [place] mL solution 00 times Medical daily. Branch lactulose 2015-11 Yes [id number] 30mL Take 30 mL [facility] (CEPHULAC) 2-12 by mouth 2 [facility] of 10 gram/15 00:00: (two) [place] mL solution 00 times Medical daily. Branch lactulose 2015-11 Yes [id number] 30mL Take 30 mL [facility] (CEPHULAC) 2-12 by mouth 2 [facility] of 10 gram/15 00:00: (two) [place] mL solution 00 times Medical daily. Branch lactulose 2015-11 Yes [id number] 30mL Take 30 mL [facility] (CEPHULAC) 2-12 by mouth 2 [facility] of 10 gram/15 00:00: (two) [place] mL solution 00 times Medical daily. Branch lactulose 2015-11 Yes [id number] 30mL Take 30 mL [facility] (CEPHULAC) 2-12 by mouth 2 [facility] of 10 gram/15 00:00: (two) [place] mL solution 00 times Medical daily. Branch lactulose 2015- Yes [id number] 30mL Take 30 mL [facility] (CEPHULAC) 2-12 by mouth 2 [facility] of 10 gram/15 00:00: (two) [place] mL solution 00 times Medical daily. Branch lactulose 2015- Yes [id number] 30mL Take 30 mL [facility] (CEPHULAC) 2-12 by mouth 2 [facility] of 10 gram/15 00:00: (two) [place] mL solution 00 times Medical daily. Branch lactulose 2015- Yes [id number] 30mL Take 30 mL [facility] (CEPHULAC) 2-12 by mouth 2 [facility] of 10 gram/15 00:00: (two) [place] mL solution 00 times Medical daily. Branch lactulose 2015- Yes [id number] 30mL Take 30 mL [facility] (CEPHULAC) 2-12 by mouth 2 it[facility] of 10 gram/15 00:00: (two) [place] mL solution 00 times Medical daily. Branch lactulose 2015- Yes [id number] 30mL Take 30 mL [facility] (CEPHULAC) 2-12 by mouth 2 [facility] of 10 gram/15 00:00: (two) [place] mL solution 00 times Medical daily. Branch lactulose 2015- Yes [id number] 30mL Take 30 mL [facility] (CEPHULAC) 2-12 by mouth 2 it[facility] of 10 gram/15 00:00: (two) [place] mL solution 00 times Medical daily. Branch lactulose 2015- Yes [id number] 30mL Take 30 mL [facility] (CEPHULAC) 2-12 by mouth 2 ity of 10 gram/15 00:00: (two) [place] mL solution 00 times Medical daily. Branch lactulose 2015- Yes [id number] 30mL Take 30 mL [facility] (CEPHULAC) 2-12 by mouth 2 it[facility] of 10 gram/15 00:00: (two) [place] mL solution 00 times Medical daily. Branch lactulose 2015- Yes [id number] 30mL Take 30 mL [facility] (CEPHULAC) 2-12 by mouth 2 ity of 10 gram/15 00:00: (two) [place] mL solution 00 times Medical daily. Branch lactulose 2015- Yes [id number] 30mL Take 30 mL [facility] (CEPHULAC) 2-12 by mouth 2 ity of 10 gram/15 00:00: (two) [place] mL solution 00 times Medical daily. Branch lactulose 2015-11 Yes [id number] 30mL Take 30 mL [facility] (CEPHULAC) 2-12 by mouth 2 ity of 10 gram/15 00:00: (two) [place] mL solution 00 times Medical daily. Branch lactulose 2015-11 Yes [id number] 30mL Take 30 mL [facility] (CEPHULAC) 2-12 by mouth 2 ity of 10 gram/15 00:00: (two) [place] mL solution 00 times Medical daily. Branch lactulose 2015-11 Yes [id number] 30mL Take 30 mL [facility] (CEPHULAC) 2-12 by mouth 2 ity of 10 gram/15 00:00: (two) [place] mL solution 00 times Medical daily. Branch traMADOL 2015-11 Yes [id number] 50mg Take 1 [facility] vers (ULTRAM) 50 2-12 tablet by [facility] of mg tablet 00:00: mouth [place] 00 every 6 Medical (six) Branch hours as needed for Pain (scale 4-6) or Pain (scale 7-10). lactulose 2015-11 Yes [id number] 30mL Take 30 mL [facility] (CEPHULAC) 2-12 by mouth 2 ity of 10 gram/15 00:00: (two) [place] mL solution 00 times Medical daily. Branch lactulose 2015-11 Yes [id number] 30mL Take 30 mL [facility] (CEPHULAC) 2-12 by mouth 2 ity of 10 gram/15 00:00: (two) [place] mL solution 00 times Medical daily. Branch lactulose 2015-11 Yes [id number] 30mL Take 30 mL [facility] (CEPHULAC) 2-12 by mouth 2 ity of 10 gram/15 00:00: (two) [place] mL solution 00 times Medical daily. Branch lactulose 2015- Yes [id number] 30mL Take 30 mL [facility] (CEPHULAC) 2-12 by mouth 2 ity of 10 gram/15 00:00: (two) [place] mL solution 00 times Medical daily. Branch lactulose 2015-11 Yes [id number] 30mL Take 30 mL [facility] (CEPHULAC) 2-12 by mouth 2 ity of 10 gram/15 00:00: (two) [place] mL solution 00 times Medical daily. Branch lactulose 2015-11 Yes [id number] 30mL Take 30 mL [facility] (CEPHULAC) 2-12 by mouth 2 ity of 10 gram/15 00:00: (two) [place] mL solution 00 times Medical daily. Branch lactulose 2015-11 Yes [id number] 30mL Take 30 mL [facility] (CEPHULAC) 2-12 by mouth 2 ity of 10 gram/15 00:00: (two) [place] mL solution 00 times Medical daily. Branch lactulose 2015-11 Yes [id number] 30mL Take 30 mL [facility] (CEPHULAC) 2-12 by mouth 2 ity of 10 gram/15 00:00: (two) [place] mL solution 00 times Medical daily. Branch lactulose 2015-11 Yes [id number] 30mL Take 30 mL [facility] (CEPHULAC) 2-12 by mouth 2 ity of 10 gram/15 00:00: (two) [place] mL solution 00 times Medical daily. Branch lactulose 2015-11 Yes [id number] 30mL Take 30 mL [facility] (CEPHULAC) 2-12 by mouth 2 ity of 10 gram/15 00:00: (two) [place] mL solution 00 times Medical daily. Branch traMADOL 2015-11 Yes [id number] 50mg Take 1 [facility] vers (ULTRAM) 50 2-12 tablet by [facility] of mg tablet 00:00: mouth [place] 00 every 6 Medical (six) Branch hours as needed for Pain (scale 4-6) or Pain (scale 7-10). lactulose 2015-11 Yes [id number] 30mL Take 30 mL [facility] (CEPHULAC) 2-12 by mouth 2 ity of 10 gram/15 00:00: (two) [place] mL solution 00 times Medical daily. Branch lactulose 2015-11 Yes [id number] 30mL Take 30 mL [facility] (CEPHULAC) 2-12 by mouth 2 ity of 10 gram/15 00:00: (two) [place] mL solution 00 times Medical daily. Branch traMADOL 2015- Yes [id number] 50mg Take 1 [facility] vers (ULTRAM) 50 2-12 tablet by [facility] of mg tablet 00:00: mouth [place] 00 every 6 Medical (six) Branch hours as needed for Pain (scale 4-6) or Pain (scale 7-10). lactulose 2015- Yes [id number] 30mL Take 30 mL [facility] (CEPHULAC) 2-12 by mouth 2 ity of 10 gram/15 00:00: (two) [place] mL solution 00 times Medical daily. Branch traMADOL 2015-11 Yes [id number] 50mg Take 1 [facility] vers (ULTRAM) 50 2-12 tablet by [facility] of mg tablet 00:00: mouth [place] 00 every 6 Medical (six) Branch hours as needed for Pain (scale 4-6) or Pain (scale 7-10). lactulose 2015-11 Yes [id number] 30mL Take 30 mL [facility] (CEPHULAC) 2-12 by mouth 2 ity of 10 gram/15 00:00: (two) [place] mL solution 00 times Medical daily. Branch traMADOL 2015-11 Yes [id number] 50mg Take 1 [facility] (ULTRAM) 50 2-12 tablet by [facility] of mg tablet 00:00: mouth [place] 00 every 6 Medical (six) Branch hours as needed for Pain (scale 4-6) or Pain (scale 7-10). lactulose 2015-11 Yes [id number] 30mL Take 30 mL [facility] (CEPHULAC) 2-12 by mouth 2 ity of 10 gram/15 00:00: (two) [place] mL solution 00 times Medical daily. Branch traMADOL 2015-11 Yes [id number] 50mg Take 1 [facility] (ULTRAM) 50 2-12 tablet by [facility] of mg tablet 00:00: mouth [place] 00 every 6 Medical (six) Branch hours as needed for Pain (scale 4-6) or Pain (scale 7-10). lactulose 2015-11 Yes [id number] 30mL Take 30 mL [facility] (CEPHULAC) 2-12 by mouth 2 ity of 10 gram/15 00:00: (two) [place] mL solution 00 times Medical daily. Branch lactulose 2015- Yes [id number] 30mL Take 30 mL [facility] (CEPHULAC) 2-12 by mouth 2 ity of 10 gram/15 00:00: (two) [place] mL solution 00 times Medical daily. Branch lactulose 2015-11 Yes [id number] 30mL Take 30 mL [facility] (CEPHULAC) 2-12 by mouth 2 ity of 10 gram/15 00:00: (two) [place] mL solution 00 times Medical daily. Branch lactulose 2015- Yes [id number] 30mL Take 30 mL [facility] (CEPHULAC) 2-12 by mouth 2 ity of 10 gram/15 00:00: (two) [place] mL solution 00 times Medical daily. Branch lactulose 2015- Yes [id number] 30mL Take 30 mL [facility] (CEPHULAC) 2-12 by mouth 2 ity of 10 gram/15 00:00: (two) [place] mL solution 00 times Medical daily. Branch lactulose 2015- Yes [id number] 30mL Take 30 mL [facility] (CEPHULAC) 2-12 by mouth 2 ity of 10 gram/15 00:00: (two) [place] mL solution 00 times Medical daily. Branch lactulose 2015- Yes [id number] 30mL Take 30 mL [facility] (CEPHULAC) 2-12 by mouth 2 ity of 10 gram/15 00:00: (two) [place] mL solution 00 times Medical daily. Branch lactulose 2015- Yes [id number] 30mL Take 30 mL [facility] (CEPHULAC) 2-12 by mouth 2 ity of 10 gram/15 00:00: (two) [place] mL solution 00 times Medical daily. Branch lactulose 2015- Yes [id number] 30mL Take 30 mL [facility] (CEPHULAC) 2-12 by mouth 2 ity of 10 gram/15 00:00: (two) [place] mL solution 00 times Medical daily. Branch lactulose 2015- Yes [id number] 30mL Take 30 mL [facility] (CEPHULAC) 2-12 by mouth 2 ity of 10 gram/15 00:00: (two) [place] mL solution 00 times Medical daily. Branch lactulose 2015- Yes [id number] 30mL Take 30 mL [facility] (CEPHULAC) 2-12 by mouth 2 ity of 10 gram/15 00:00: (two) [place] mL solution 00 times Medical daily. Branch lactulose 2015- Yes [id number] 30mL Take 30 mL [facility] (CEPHULAC) 2-12 by mouth 2 ity of 10 gram/15 00:00: (two) [place] mL solution 00 times Medical daily. Branch lactulose 2015- Yes [id number] 30mL Take 30 mL [facility] (CEPHULAC) 2-12 by mouth 2 ity of 10 gram/15 00:00: (two) [place] mL solution 00 times Medical daily. Branch lactulose 2015- Yes [id number] 30mL Take 30 mL [facility] (CEPHULAC) 2-12 by mouth 2 ity of 10 gram/15 00:00: (two) [place] mL solution 00 times Medical daily. Branch lactulose 2015- Yes [id number] 30mL Take 30 mL [facility] (CEPHULAC) 2-12 by mouth 2 ity of 10 gram/15 00:00: (two) [place] mL solution 00 times Medical daily. Branch lactulose 2015- Yes [id number] 30mL Take 30 mL [facility] (CEPHULAC) 2-12 by mouth 2 ity of 10 gram/15 00:00: (two) [place] mL solution 00 times Medical daily. Branch lactulose 2015- Yes [id number] 30mL Take 30 mL [facility] (CEPHULAC) 2-12 by mouth 2 ity of 10 gram/15 00:00: (two) [place] mL solution 00 times Medical daily. Branch lactulose 2015- Yes [id number] 30mL Take 30 mL [facility] (CEPHULAC) 2-12 by mouth 2 ity of 10 gram/15 00:00: (two) [place] mL solution 00 times Medical daily. Branch lactulose 2015- Yes [id number] 30mL Take 30 mL [facility] (CEPHULAC) 2-12 by mouth 2 ity of 10 gram/15 00:00: (two) [place] mL solution 00 times Medical daily. Branch lactulose 2015- Yes [id number] 30mL Take 30 mL [facility] (CEPHULAC) 2-12 by mouth 2 ity of 10 gram/15 00:00: (two) [place] mL solution 00 times Medical daily. Branch lactulose 2015- Yes [id number] 30mL Take 30 mL [facility] (CEPHULAC) 2-12 by mouth 2 ity of 10 gram/15 00:00: (two) [place] mL solution 00 times Medical daily. Branch lactulose 2015- Yes [id number] 30mL Take 30 mL [facility] (CEPHULAC) 2-12 by mouth 2 ity of 10 gram/15 00:00: (two) [place] mL solution 00 times Medical daily. Branch lactulose 2015- Yes [id number] 30mL Take 30 mL [facility] (CEPHULAC) 2-12 by mouth 2 ity of 10 gram/15 00:00: (two) [place] mL solution 00 times Medical daily. Branch lactulose 2015- Yes [id number] 30mL Take 30 mL [facility] (CEPHULAC) 2-12 by mouth 2 ity of 10 gram/15 00:00: (two) [place] mL solution 00 times Medical daily. Branch lactulose 2015- Yes [id number] 30mL Take 30 mL [facility] (CEPHULAC) 2-12 by mouth 2 ity of 10 gram/15 00:00: (two) [place] mL solution 00 times Medical daily. Branch lactulose 2015- Yes [id number] 30mL Take 30 mL [facility] (CEPHULAC) 2-12 by mouth 2 ity of 10 gram/15 00:00: (two) [place] mL solution 00 times Medical daily. Branch lactulose 2015- Yes [id number] 30mL Take 30 mL [facility] (CEPHULAC) 2-12 by mouth 2 ity of 10 gram/15 00:00: (two) [place] mL solution 00 times Medical daily. Branch lactulose 2015- Yes [id number] 30mL Take 30 mL [facility] (CEPHULAC) 2-12 by mouth 2 ity of 10 gram/15 00:00: (two) [place] mL solution 00 times Medical daily. Branch lactulose 2015- Yes [id number] 30mL Take 30 mL [facility] (CEPHULAC) 2-12 by mouth 2 ity of 10 gram/15 00:00: (two) [place] mL solution 00 times Medical daily. Branch lactulose 2015- Yes [id number] 30mL Take 30 mL [facility] (CEPHULAC) 2-12 by mouth 2 ity of 10 gram/15 00:00: (two) [place] mL solution 00 times Medical daily. Branch lactulose 2015- Yes [id number] 30mL Take 30 mL [facility] (CEPHULAC) 2-12 by mouth 2 ity of 10 gram/15 00:00: (two) [place] mL solution 00 times Medical daily. Branch lactulose 2015- Yes [id number] 30mL Take 30 mL [facility] (CEPHULAC) 2-12 by mouth 2 ity of 10 gram/15 00:00: (two) [place] mL solution 00 times Medical daily. Branch lactulose 2015- Yes [id number] 30mL Take 30 mL [facility] (CEPHULAC) 2-12 by mouth 2 ity of 10 gram/15 00:00: (two) [place] mL solution 00 times Medical daily. Branch lactulose 2015- Yes [id number] 30mL Take 30 mL [facility] (CEPHULAC) 2-12 by mouth 2 ity of 10 gram/15 00:00: (two) [place] mL solution 00 times Medical daily. Branch lactulose 2015- Yes [id number] 30mL Take 30 mL [facility] (CEPHULAC) 2-12 by mouth 2 ity of 10 gram/15 00:00: (two) [place] mL solution 00 times Medical daily. Branch lactulose 2015- Yes [id number] 30mL Take 30 mL [facility] (CEPHULAC) 2-12 by mouth 2 ity of 10 gram/15 00:00: (two) [place] mL solution 00 times Medical daily. Branch lactulose 2015- Yes [id number] 30mL Take 30 mL [facility] (CEPHULAC) 2-12 by mouth 2 ity of 10 gram/15 00:00: (two) [place] mL solution 00 times Medical daily. Branch lactulose 2015- Yes [id number] 30mL Take 30 mL [facility] (CEPHULAC) 2-12 by mouth 2 ity of 10 gram/15 00:00: (two) [place] mL solution 00 times Medical daily. Branch lactulose 2015- Yes [id number] 30mL Take 30 mL [facility] (CEPHULAC) 2-12 by mouth 2 ity of 10 gram/15 00:00: (two) [place] mL solution 00 times Medical daily. Branch lactulose 2015- Yes [id number] 30mL Take 30 mL [facility] (CEPHULAC) 2-12 by mouth 2 ity of 10 gram/15 00:00: (two) [place] mL solution 00 times Medical daily. Branch lactulose 2015- Yes [id number] 30mL Take 30 mL [facility] (CEPHULAC) 2-12 by mouth 2 ity of 10 gram/15 00:00: (two) [place] mL solution 00 times Medical daily. Branch lactulose 2015- Yes [id number] 30mL Take 30 mL [facility] (CEPHULAC) 2-12 by mouth 2 ity of 10 gram/15 00:00: (two) [place] mL solution 00 times Medical daily. Branch lactulose 2015- Yes [id number] 30mL Take 30 mL [facility] (CEPHULAC) 2-12 by mouth 2 ity of 10 gram/15 00:00: (two) [place] mL solution 00 times Medical daily. Branch lactulose 2015- Yes [id number] 30mL Take 30 mL [facility] (CEPHULAC) 2-12 by mouth 2 ity of 10 gram/15 00:00: (two) [place] mL solution 00 times Medical daily. Branch lactulose 2015- Yes [id number] 30mL Take 30 mL [facility] (CEPHULAC) 2-12 by mouth 2 ity of 10 gram/15 00:00: (two) [place] mL solution 00 times Medical daily. Branch lactulose 2015-11 Yes [id number] 30mL Take 30 mL [facility] (CEPHULAC) 2-12 by mouth 2 ity of 10 gram/15 00:00: (two) [place] mL solution 00 times Medical daily. Branch lactulose 2015-11 Yes [id number] 30mL Take 30 mL [facility] (CEPHULAC) 2-12 by mouth 2 ity of 10 gram/15 00:00: (two) [place] mL solution 00 times Medical daily. Branch lactulose 2015-11 Yes [id number] 30mL Take 30 mL [facility] (CEPHULAC) 2-12 by mouth 2 ity of 10 gram/15 00:00: (two) [place] mL solution 00 times Medical daily. Branch lactulose 2015-11 Yes [id number] 30mL Take 30 mL [facility] (CEPHULAC) 2-12 by mouth 2 ity of 10 gram/15 00:00: (two) [place] mL solution 00 times Medical daily. Branch lactulose 2015-11 Yes [id number] 30mL Take 30 mL [facility] (CEPHULAC) 2-12 by mouth 2 ity of 10 gram/15 00:00: (two) [place] mL solution 00 times Medical daily. Branch lactulose 2015- Yes [id number] 30mL Take 30 mL [facility] (CEPHULAC) 2-12 by mouth 2 ity of 10 gram/15 00:00: (two) [place] mL solution 00 times Medical daily. Branch lactulose 2015-11 Yes [id number] 30mL Take 30 mL [facility] (CEPHULAC) 2-12 by mouth 2 ity of 10 gram/15 00:00: (two) [place] mL solution 00 times Medical daily. Branch Amlodipine Amlodipine Yes Dian[facility] [address] [facility] Lasix Lasix Yes [facility] [address] [facility] Spironolact Spironolact 2020- No [facility] [address] [facility] one 11-24 [facility] Vital Signs Vital Name Observation Time Observation Value Comments Source Systolic blood 2021-02-04 155 mm[Hg] [facility] of pressure 21:10:00 [facility] Diastolic blood 2021-02-04 76 mm[Hg] University o f pressure 21:10:00 [facility] Heart rate 2021-02-04 65 /min University of 21:10:00 [facility] Body temperature 2021-02-04 36.44 [place] [facility] of 21:10:00 [facility] Respiratory rate 2021-02-04 18 /min University of 21:10:00 [facility] Oxygen saturation 2021-02-04 95 /min [facility] of in Arterial blood 21:10:00 [facility] by Pulse oximetry Branch Body weight 2021-02-02 72.5 kg University of 13:00:00 [facility] BMI 2021-02-02 24.31 kg/m2 University of 13:00:00 [facility] Systolic blood 2021-02-04 155 mm[Hg] [facility] of pressure 21:10:00 [facility] Diastolic blood 2021-02-04 76 mm[Hg] University o f pressure 21:10:00 [facility] Heart rate 2021-02-04 65 /min [facility] of 21:10:00 [facility] Body temperature 2021-02-04 36.44 [place] [facility] of 21:10:00 [facility] Respiratory rate 2021-02-04 18 /min University of 21:10:00 [facility] Oxygen saturation 2021-02-04 95 /min [facility] of in Arterial blood 21:10:00 [facility] by Pulse oximetry Branch Body weight 2021-02-02 72.5 kg University of 13:00:00 [facility] BMI 2021-02-02 24.31 kg/m2 University of 13:00:00 [facility] Respiratory rate 2021-02-01 18 /min University of 20:17:00 [facility] Respiratory rate 2021-02-01 18 /min University of 20:17:00 [facility] Systolic blood 2020-12-15 156 mm[Hg] University of pressure 19:23:00 [facility] Diastolic blood 2020-12-15 84 mm[Hg] University o f pressure 19:23:00 [facility] Heart rate 2020-12-15 76 /min University of 19:19:00 [facility] Body height 2020-12-15 172.7 cm University of 19:19:00 [facility] Body weight 2020-12-15 88.905 kg University of 19:19:00 [facility] BMI 2020-12-15 29.80 kg/m2 University of 19:19:00 [facility] Systolic blood 2020-12-15 156 mm[Hg] [facility] of pressure 19:23:00 [facility] Diastolic blood 2020-12-15 84 mm[Hg] University o f pressure 19:23:00 [facility] Heart rate 2020-12-15 76 /min University of 19:19:00 [facility] Body height 2020-12-15 172.7 cm University of 19:19:00 [facility] Body weight 2020-12-15 88.905 kg University of 19:19:00 [facility] BMI 2020-12-15 29.80 kg/m2 University of 19:19:00 [facility] Systolic blood 2020-12-09 142 mm[Hg] University of pressure 21:45:00 [facility] Diastolic blood 2020-12-09 67 mm[Hg] University o f pressure 21:45:00 [facility] Heart rate 2020-12-09 64 /min University of 21:45:00 [facility] Oxygen saturation 2020-12-09 97 /min University of in Arterial blood 21:45:00 [facility] by Pulse oximetry Branch Respiratory rate 2020-12-09 16 /min University of 18:45:00 [facility] Body temperature 2020-12-09 37.06 [place] [facility] of 16:16:00 [facility] Body height 2020-12-09 172.7 cm University of 16:16:00 [facility] Body weight 2020-12-09 90.719 kg University of 16:16:00 [facility] BMI 2020-12-09 30.41 kg/m2 University of 16:16:00 [facility] Systolic blood 2020-09-07 174 mm[Hg] University of pressure 18:39:00 [facility] Diastolic blood 2020-09-07 82 mm[Hg] University o f pressure 18:39:00 [facility] Heart rate 2020-09-07 66 /min University of 18:39:00 [facility] Respiratory rate 2020-09-07 18 /min University of 18:39:00 [facility] Body height 2020-09-07 170.2 cm University of 18:39:00 [facility] Body weight 2020-09-07 83.915 kg University of 18:39:00 [facility] BMI 2020-09-07 28.98 kg/m2 University of 18:39:00 [facility] Systolic blood 2020-08-04 166 mm[Hg] University of pressure 17:07:00 [facility] Diastolic blood 2020-08-04 94 mm[Hg] University o f pressure 17:07:00 [facility] Heart rate 2020-08-04 71 /min University of 17:07:00 [facility] Body temperature 2020-08-04 36.67 [place] [facility] of 17:07:00 [facility] Respiratory rate 2020-08-04 18 /min University of 17:07:00 [facility] Body height 2020-08-04 170.2 cm University of 17:07:00 [facility] Body weight 2020-08-04 88.678 kg University of 17:07:00 [facility] BMI 2020-08-04 30.62 kg/m2 University of 17:07:00 [facility] Oxygen saturation 2020-08-04 97 /min University in Arterial blood 17:07:00 [facility] Pulse oximetry Branch Systolic blood 2020-07-26 174 mm[Hg] University of pressure 19:13:00 [facility] Diastolic blood 2020-07-26 84 mm[Hg] University o f pressure 19:13:00 [facility] Heart rate 2020-07-26 83 /min University of 19:13:00 [facility] Body height 2020-07-26 172.7 cm University of 19:13:00 [facility] Body weight 2020-07-26 86.183 kg University of 19:13:00 [facility] BMI 2020-07-26 28.89 kg/m2 University of 19:13:00 [facility] Systolic blood 2020-01-12 156 mm[Hg] University of pressure 19:13:00 [facility] Diastolic blood 2020-01-12 91 mm[Hg] University o f pressure 19:13:00 [facility] Heart rate 2020-01-12 76 /min University of 19:13:00 [facility] Body height 2020-01-12 172.7 cm University of 19:12:00 [facility] Body weight 2020-01-12 82.555 kg University of 19:12:00 [facility] BMI 2020-01-12 27.67 kg/m2 University of 19:12:00 [facility] Oxygen saturation 2020-01-12 95 /min University in Arterial blood 19:12:00 [facility] by Pulse oximetry [place] Systolic blood 2019-10-16 161 mm[Hg] University of pressure 18:09:00 [facility] Diastolic blood 2019-10-16 95 mm[Hg] University o f pressure 18:09:00 [facility] Heart rate 2019-10-16 79 /min University of 18:09:00 [facility] Body temperature 2019-10-16 36.33 [place] [facility] of 18:09:00 [facility] Respiratory rate 2019-10-16 18 /min University of 18:09:00 [facility] Body height 2019-10-16 172.7 cm University of 18:09:00 [facility] Body weight 2019-10-16 86.637 kg University of 18:09:00 [facility] BMI 2019-10-16 29.04 kg/m2 University of 18:09:00 [facility] Systolic blood 2019-06-26 141 mm[Hg] University of pressure 15:32:00 [facility] Diastolic blood 2019-06-26 90 mm[Hg] University o f pressure 15:32:00 [facility] Heart rate 2019-06-26 92 /min University of 15:31:00 [facility] Body temperature 2019-06-26 36.22 Destiny University of 15:31:00 [facility] Respiratory rate 2019-06-26 18 /min University of 15:31:00 [facility] Body height 2019-06-26 175.3 cm University of 15:31:00 [facility] Body weight 2019-06-26 89.812 kg University of 15:31:00 [facility] BMI 2019-06-26 29.24 kg/m2 University of 15:31:00 [facility] BP Systolic 2018-07-21 150 mm[Hg] Location: [facility] 10:50:00 Position: [place] [facility] BP Diastolic 2018-07-21 83 mm[Hg] Location: [facility] 10:50:00 Position: [place] [facility] Height 2018-07-21 67 [in_us] [facility] 10:50:00 [place] [facility] Weight 2018-07-21 184 [lb_av] [facility] 10:50:00 [place] [facility] Body Mass Index 2018-07-21 28.82 kg/m2 University o f Calculated 10:50:00 [place] [facility] Heart Rate 2018-07-21 55 /min Location: R [facility] 10:50:00 Brachial [place] [facility] Artery; Systolic (mm Hg) 2018-07-08 [...] Will n 23:42:00 Heart Rate 2018-07-04 Candi Will n 21:05:00 Heart Rate 2018-07-04 Candi Will n 21:00:00 Heart Rate 2018-07-04 Candi Will n 18:35:00 Procedures Procedure Date / Time Performing Source Performed Clinician REFERRAL- REQUEST/RESPONSE 2021-09-14 Doctor Dominguez rsity of 05:01:00 Unassigned, No [facility] TRANSPLANT/EXT PROVIDER 2021-06-20 [facility] ty of LAB/PATHOLOGY 05:01:00 Unassigned, No [facility] CT HIP RIGHT WO CONTRAST 2021-03-30 Mannie Watson rsity of 18:31:02 Nora [facility] CONSENT/REFUSAL FOR DIAGNOSIS AND 2021-03-30 Doctor [facility] TREATMENT 17:53:46 Unassigned, No [facility] ASSIGNMENT OF BENEFITS 2021-03-30 Doctor [facility] y of 17:53:29 Unassigned, No [facility] EXTERNAL PROVIDER RECORDS 2021-02-15 Doctor Luque sity of 05:01:00 Unassigned, No [facility] [place] [facility] MAGNESIUM 2021-02-04 [facility] 09[facility]58[facility] BASIC METABOLIC PANEL (NA, K, CL, 2021-02-04 [facility] CO2, GLUCOSE, BUN, CREATININE, CA) 09:58:00 [facility] CBC WITHOUT DIFF 2021-02-04 [facility] 09:58:00 [facility] CBC WITHOUT DIFF 2021-02-03 [facility] of 23:30:00 [facility] CBC WITHOUT DIFF 2021-02-03 [facility] 12:36:00 [facility] BLOOD CULTURE SCREEN 2021-02-03 [facility] of 12:35:00 [facility] BASIC METABOLIC PANEL (NA, K, CL, 2021-02-03 [facility] CO2, GLUCOSE, BUN, CREATININE, CA) 05:02:00 [facility] CBC WITHOUT DIFF 2021-02-03 [facility] of 05:02:00 [facility] CBC WITHOUT DIFF 2021-02-02 [facility] of 23:08:00 [facility] EGD (ENDO) 2021-02-02 Prasanna Ly [facility] of 21:33:06 [facility] COLONOSCOPY 2021-02-02 Mannie King Maxwell of 21:12:00 [facility] PUSH ENDOSCOPY 2021-02-02 Mannie King Maxwell of 21:12:00 [facility] COLONOSCOPY (ENDO) 2021-02-02 Prasanna Ly [facility] of 21:07:14 [facility] CBC WITHOUT DIFF 2021-02-02 [facility] of 16:29:00 [facility] BASIC METABOLIC PANEL (NA, K, CL, 2021-02-02 [facility] of CO2, GLUCOSE, BUN, CREATININE, CA) 09:05:00 [facility] CBC WITHOUT DIFF 2021-02-02 [facility] of 09:05:00 [facility] US ABDOMEN LIMITED WITH DOPPLER 2021-02-02 [facility] of 07:10:00 [facility] CBC WITHOUT DIFF 2021-02-02 [facility] of 03:44:00 [facility] PREPARE PACKED RBC 2021-02-01 [facility] of 21:22:58 [facility] BASIC METABOLIC PANEL (NA, K, CL, 2021-02-01 [facility] of CO2, GLUCOSE, BUN, CREATININE, CA) 21:14:00 [facility] EGD (ENDO) 2021-02-01 Prasanna Ly [facility] of 20:00:46 [facility] ESOPHAGOGASTRODUODENOSCOPY 2021-02-01 Mannie King Uni versity of 19:37:00 [facility] CBC WITH DIFF 2021-02-01 [facility] of 19:02:00 [facility] PREPARE PACKED RBC 2021-02-01 [facility] of 18:08:18 [facility] CBC WITHOUT DIFF 2021-02-01 Jaylan Pollock of 17:34:00 [facility] ACUTE CARE VENOUS BLOOD GAS 2021-02-01 Alicja Saenz [facility] ersity of 17:08:00 [facility] XR CHEST 1 VW 2021-02-01 Juan Carlos Murillo of 16:36:00 [facility] BLOOD CULTURE SCREEN 2021-02-01 Jaylan Pollock of 16:31:00 [facility] BLOOD CULTURE WORKUP 2021-02-01 Phill [facility] of 16:31:00 [facility] GRAM POSITIVE BLOOD PATHOGENS DNA 2021-02-01 Phill [facility] of PROBE-AEROBIC 16:31:00 [facility] BLOOD CULTURE SCREEN 2021-02-01 Pollock [facility] of 14:47:00 [facility] CT ABDOMEN PELVIS W CONTRAST 2021-02-01 Phill [facility] versity of 13:41:37 [facility] PREPARE PACKED RBC 2021-02-01 Phill [facility] of 12:46:00 [facility] URINE CULTURE 2021-02-01 Phill [facility] of 12:34:00 [facility] HB ABO GROUPING 2021-02-01 Phill [facility] of 11:34:00 [facility] PHOSPHORUS 2021-02-01 Phill [facility] of 09:59:00 [facility] MAGNESIUM 2021-02-01 Phill [facility] of 09:59:00 [facility] HEPATIC FUNCTION PANEL ([id number]) 2021-02-01 Phill Jaylan niversity of (ALB,T.PRO,BILI 09:59:00 [facility],BU/BC,ALT,AST,ALK PHOS) [place] BASIC METABOLIC PANEL (NA, K, CL, 2021-02-01 Phill [facility] of CO2, GLUCOSE, BUN, CREATININE, CA) 09:59:00 [facility] CBC WITH DIFF 2021-02-01 [facility] of 09:59:00 [facility] PROTHROMBIN TIME / INR 2021-02-01 [facility] 09:59:00 [facility] ACTIVATED PARTIAL THRMPLAS MÓNICA 2021-02-01 [facility] Jaylan niversity of 09:59:00 [facility] FIBRINOGEN 2021-02-01 [facility] of 09:59:00 [facility] MRSA / MSSA SCREEN BY HERMINIA SAUCEDA 2021-02-01 Phill [facility] of 09:58:00 [facility] DSU PRE-OP 2021-01-06 [facility] of 06:01:00 Unassigned, No [facility] INSURANCE CORRESPONDENCE 2020-12-21 Doctor [facility] of 06:01:00 Unassigned, No [facility] IR ANGIOGRAM CEREBRAL 2020-12-09 Shawna Gaffney Maxwell of 19:02:31 [facility] BASIC METABOLIC PANEL (NA, K, CL, 2020-12-09 Shawna Gaffney of CO2, GLUCOSE, BUN, CREATININE, CA) 16:02:00 [facility] CBC WITH DIFF 2020-12-09 Shawna Gaffney Maxwell of 16:02:00 [facility] PROTHROMBIN TIME / INR 2020-12-09 Shawna Gaffney [facility] y of 16:02:00 [facility] VERIFYNOW ASPIRIN TEST 2020-12-09 Shawna Gaffney [facility] y of 16:02:00 [facility] COVID-19 (ID NOW RAPID TESTING) 2020-12-09 Shawna Gaffney [facility] of 16:02:00 [facility] LAB ONLY COVID INTERPRETATION 2020-12-09 Shawna Gaffney Un iversity of 16:02:00 [facility] XR KNEE 3 VW LEFT 2020-09-02 Fior Chow Maxwell o f 17:47:09 [facility] XR SHOULDER <2 VW LEFT 2020-09-02 Fior Chow [facility] ity of 17:47:09 [facility] ASSIGNMENT OF BENEFITS 2020-07-26 Doctor [facility] y of 20:08:12 Unassigned, No [facility] CT ANGIOGRAM NECK 2020-06-14 Shawna Gaffney Maxwell of 20:59:42 [facility] CT ANGIOGRAM HEAD 2020-06-14 Shawna Gaffney Maxwell of 20:57:12 [facility] MR BRAIN WO CONTRAST 2020-06-14 Shawna Gaffney Maxwell of 18:50:06 [facility] ACUTE CARE ARTERIAL BLOOD GAS 2020-05-12 Sarah Barrera Un iversity of 18:41:00 Manisha [facility] ASSIGNMENT OF BENEFITS 2020-05-12 Doctor [facility] y of 17:36:02 Unassigned, No [facility] AMMONIA, PLASMA 2019-06-[address] [facility] of 16:55:00 Gene [facility] MEDICAL RELEASE/CLEARANCE FORMS 2019-06-26 [facility] of 05:01:00 Unassigned, No [facility] CT Head/Neck CTA [id number] 2018-07-21 Universit y of 00:00:00 [place] [facility] catheter placement, 2018-07-07 Pa morial Desmet vertebral artery, unilateral, with 17:40:00 angiography of the ipsilateral vertebral circulation and all associated radiological supervision and interpretation, includes angiography of the cervicocerebral arch, when performed Plan of Care Planned Activity Planned Date Details Comments Source Future Scheduled Test 2021-08-11 00:00:[address] [facility] Seasonal Aug to January (>/= 19 yrs) [code = IMM Influenza Seasonal Aug to January (>/= 19 yrs)] Future Scheduled Test 2021-08-11 00:00:[address] [facility] Seasonal Aug to January (>/= 19 yrs) [code = IMM Influenza Seasonal Aug to January (>/= 19 yrs)] Future Scheduled Test 2008 00:00:[address] [facility] malignant neoplasm of colon (procedure) [code = 054888631] Future Scheduled Test 2008 00:00:[address] [facility] malignant neoplasm of colon (procedure) [code = 672687005] Future Scheduled Test 1970 00:00:00 COVID-19 Vaccine (1) [facility] [code = COVID-19 Vaccine (1)] Future Scheduled Test 1970 00:00:00 COVID-19 Vaccine (1) [facility] [code = COVID-19 Vaccine (1)] Encounters Start End Encounter Admission Attending Care Care Encounter Source Date/Time Date/Time Type Type Clinicians Facility Department ID 2021-09-21 Inpatient ARTEM WalkerTO LABO [id number] [facility] 14:00:00 Wilber [id number] [facility] 2021-09-10 Inpatient U PRASANNA LY [facility] MPU [id number] Univers 08:02:36 PRASANNA LY it y of [facility] 2021-09-10 [facility] KIKA [id number] Univers 00:10:53 FIOR ity [facility] 2021-09-07 Inpatient EL Alejandro, HCATO DAYS [id number] [facility] 14:00:00 Wilber 59 [facility] 2021-09-07 Inpatient EL Alejandro, HCATO DAYS [id number] [facility] 14:00:00 Wilber [id number] [facility] 2021-08-24 Inpatient EL Alejandro, HCATO DAYS [id number] [facility] 14:00:00 Wilber [id number] [facility] 2021-08-03 Inpatient EL Alejandro, HCATO DAYS [id number] [facility] 14:00:00 Wilber [id number] [facility] 2021-07-04 Inpatient EL Alejandro, HCATO DAYS [id number] [facility] 14:00:00 Wilber [id number] [facility] 2021-06-27 Inpatient EL Alejandro, HCATO DAYS [id number] [facility] 14:00:00 Wilber [id number] [facility] 2017-10-08 Inpatient C MCSETX MCSETX [id number] Medical 07:14:00 [facility] 2017-08-29 Inpatient MCSETX MED [id number] Medical 13:35:00 [facility] 2017-07-03 Inpatient C MCSETX MCSETX [id number] Medical 15:05:00 [facility] 2021-12-18 2021-12-18 Outpatient R [facility] [id number] Univers 16:00:00 16:00:00 [id number] ity of [facility] 2021-10-25 2021-10-25 ambulatory STLMLC STLMLC [id number] [facility] 00[facility]:00 [facility] ent Clinics 2021-09-14 2021-09-14 Orders Doctor SALES [id number] Univers 00:00:00 00:00:00 Only Unassigned, BRIAN [id number] ity of [facility] 4.2.7.2.686 Patrice [id number] [place] [address] Branch 2021-08-29 2021-08-29 Outpatient STLMLC STLMLC [id number] [facility] 00:[facility]:00 [facility] Outpati ent Clinics 2021-07-31 2021-07-31 Telephone Julio [facility] [id number] Univers 00:00:00 00:00:00 Sarah MULTISPEC [id number] ity of [facility] 4.2.7.2.686 [facility] [id number] [address] DIABETES CLINIC 2021-07-27 2021-07-27 Telephone [facility] [id number] Univers 00:00:00 00:00:00 Sarah MULTISPEC [id number] ity of Manisha IALTY 4.2.7.2.686 [facility] [id number] [address] DIABETES CLINIC 2021-07-26 2021-07-26 Telephone [facility] [id number] Univers 00:00:00 00:00:00 Sarah MULTISPEC [id number] ity of Manisha IALTY 4.2.7.2.686 [facility] s FONDA [id number] [address] DIABETES CLINIC 2021-07-14 2021-07-14 [facility] [id number] 2021-07-12 2021-07-12 Telephone [facility] [id number] 1983 [facility] 00:00:00 00:00:00 Sarah MULTISPEC 350.1.13.10 ity of Manisha IALTY 4.2.7.2.686 [facility] s FONDA [id number] [address] DIABETES CLINIC 2021-07-04 2021-07-[address] [id number] 2021-06-30 2021-06-[facility] [id number] 2021-06-27 2021-06-[id number] 2021-06-26 2021-06-26 Telephone [facility] [id number] Univers 00:00:00 00:00:00 Shawna Sears [facility] [id number] [place] [id number] [facility] [address] Building 2021-06-23 2021-06-23 [facility] [id number] 2021-06-22 2021-06-22 [facility] [id number] [facility] 2021-06-20 2021-06-20 Outpatient ARTEM WalkerTO LABO [id number] 07-31 [facility] 08:00:00 23:59:00 Wilber [id number] [place] [facility] 2021-06-20 2021-06-20 Outpatient Alejandro ARTEM SIST [id number] 07-31 [facility] 18:57:00 18:57:00 Wilber [id number] [facility] 2021-06-20 2021-06-20 Orders Doctor SALES [id number] Univers 00:00:00 00:00:00 Only Unassigned, BRIAN 350.1.13.10 ity of [place] [facility] 4.2.7.2.686 Patrice as [id number] [facility] [address] 2021-06-12 2021-06-12 Outpatient LEBRON Walker RADI [id number] 07-31 [facility] 15:19:00 15:19:00 Wilber [id number] [facility] 2021-06-08 2021-06-08 [facility]phone [facility] [id number] [facility] 00:00:00 00:00:00 Sarah MULTISPEC [id number] ity of [place]isha PAYAN 4.2.7.2.686 [facility] [id number] [facility] AND ROSADO [address] DIABETES CLINIC 2021-05-24 2021-05-24 [facility] [id number] [facility] 2021-03-30 2021-03-30 [facility] 1.2.840.114 [id number] Univers 12:53:52 23:59:00 Encounter Mannie Solis 350.1.13.10 ity of [place] 4.2.7.2.686 [facility] [id number] [place] [address] Branch 2021-03-30 2021-03-30 [facility] [id number] Univers 13:00:00 13:00:00 MANNIE [id number] [facility] 2021-03-30 2021-03-30 [facility] [id number] Univers 00:00:00 00:00:00 MANNIE [facility] 2021-03-28 2021-03-28 Telephone [facility] [id number] Univers 00:00:00 00:00:00 Sarah MULTISPEC 350.1.13.10 ity of Manishayusuf PAYAN 4.2.7.2.686 [facility] [id number] [address] DIABETES CLINIC 2021-03-20 2021-03-20 Outpatient STLMLC [facility]ML[facility] [id number] [facility] 00:[facility] 00:00:00 Allan Almendarez ent Clinics 2021-02-27 2021-02-27 Telephone [facility] [id number] Univers 00:00:00 00:00:00 Sarah MULTISPEC 350.1.13.10 ity of [place] PAYAN 4.2.7.2.686 [facility] [id number] [address] DIABETES CLINIC 2021-02-21 2021-02-21 Telephone [facility] [id number] 00:00:00 00:00:00 Sarah MULTISPEC 350.1.13.10 Manisha ORA 4.2.7.[address] [place] [address] [id number] [place] [address] DIABETES CLINIC 2021-02-21 2021-02-21 Telephone [facility] [id number] Univers 00:00:00 00:00:00 Sarah MULTISPEC 350.1.13.10 ity of [place] [id number] [facility] AND FELT [address] DIABETES CLINIC 2021-02-15 2021-02-15 Orders Doctor HENRRY 1.2.840.114 [id number] 00:00:00 00:00:00 Only Unassigned, BRIAN 350.1.13.10 [place] [facility] 4.2.7.2.686 [id number] 009 2021-02-15 2021-02-15 Orders Doctor HENRRY 1.2.840.114 [id number] Univers 00:00:00 00:00:00 Only Unassigned, BRIAN 350.1.13.10 ity of [place] [facility] 4.2.7.2.686 Patrice as [id number] [facility] [address] 2021-02-07 2021-02-07 Transition Vaughn Eastman 1.2.840.114 [id number] 00:00:00 00:00:00 of Care Frida L Collins 350.1.13.10 [place] 4.2.7.2.686 [id number] 2021-02-07 2021-02-07 Transition Vaughn Eastman 1.2.840.114 [id number] Univers 00:00:00 00:00:00 of Care Frida L Collins 350.1.13.10 i ty of [place].2.[place] [id number] [facility] [address] 2021-02-01 2021-02-04 [facility] Prasanna Ly 1.2.840.11 [id number] 02:18:00 17:45:00 Encounter Chris Cardosoishna Joaquin [place] 350.1 .13.10 [facility] 4.2.7.2.686 [id number] 2021-02-01 2021-02-04 [facility] Prasanna Ly 1.2.840.11 [id number] [facility] 02:18:00 17:45:00 Encounter Walker, Brian Joaquin Brian 350.1 .13.10 ity [facility] 4.2.7.2.686 Patrice as [id number] [facility] [address] 2021-02-01 2021-02-01 Anesthesia [facility] 1.2.840.114 [id number] 14:44:00 15:39:00 Event Kriss Acharya ICAL 350.1.13.10 SCIENCES 4.2.7.2.686 BLDG [id number] 020 2021-02-01 2021-02-01 Anesthesia [facility] 1.2.840.114 [id number] Univers 14:44:00 15:39:00 Event Kriss Acharya ICAL 350.1.13.10 [facility] 4.2.7.2.686 Patrice as BLDG [id number] [facility] 0[address] Branch 2021-01-09 2021-01-09 Outpatient R [facility] [id number] Univers 13:00:00 13:00:00 [id number] [facility] 2021-01-06 2021-01-06 [facility] [id number] Univers 13:30:00 13:30:00 FIOR [facility] 2021-01-06 2021-01-06 Outpatient R [facility] [id number] Univers 13:15:00 13:15:00 [id number] [facility] 2021-01-06 2021-01-06 Outpatient STLMLC [facility]MLC [id number] [facility] 00:[facility] 00:00:00 Allan montelongo Outpati ent Clinics 2021-01-06 2021-01-06 Orders Doctor HENRRY 1.2.840.114 [id number] 00:00:00 00:00:00 Only Unassigned, BRIAN 350.1.13.10 [place] [facility] 4.2.7.2.686 [id number] [id number] 2021-01-06 2021-01-06 [facility] 1.2.840.114 [id number] 00:00:00 00:00:00 Fior [facility] 350.1.13.10 Surgical 4.2.7.2.686 Specialti [id number] es [address] [place] 2021-01-06 2021-01-06 Orders Doctor HENRRY 1.2.840.114 [id number] Univers 00:00:00 00:00:00 Only Unassigned, BRIAN 350.1.13.10 ity of [place] [facility] 4.2.7.2.686 Patrice as [id number] [address] 2021-01-06 2021-01-06 [facility]phone [facility] 1.2.840.114 [id number] Univers 00:00:00 00:00:00 Fior [employer] 350.1.13.10 it y of Surgical 4.2.7.2.686 Patrice as Specialti [id number] Pa dical es 198 [facility] 2021-01-04 2021-01-04 Outpatient Orion ALEJANDRO [facility] [id number] Univers 14:30:00 14:30:00 [facility] 2020-12-21 2020-12-21 Outpatient Orion ALEJANDRO [facility] [id number] Univers 09:30:00 09:30:00 [facility]OLDT [id number] [facility] 2020-12-21 2020-12-21 Outpatient Orion ALEJANDRO [facility] [id number] Univers 09:30:00 09:30:00 [facility] 2020-12-21 2020-12-21 Orders Doctor SALES 1.2.840.114 [id number] Univers 00:00:00 00:00:00 Only Unassigned, BRIAN 350.1.13.10 ity of [place] [facility] 4.2.7.2.686 Patrice as [id number] [address] 2020-12-21 2020-12-21 Orders Doctor SALES 1.2.840.114 [id number] 00:00:00 00:00:00 Only Unassigned, BRIAN 350.1.13.10 [place] [facility] 4.2.7.2.686 [id number] 2020-12-16 2020-12-16 [facility] 1.2.840.114 [id number] Univers 00:00:00 00:00:00 Surgery Fior [facility] 350.1.13.10 it y of Surgical 4.2.7.2.686 Patrice as Specialti [id number] Me dical es 198 [facility] 2020-12-16 2020-12-16 Prep For [facility] 1.2.840.114 [id number] 00:00:00 00:00:00 Surgery Fior Dupont 350.1.13.10 Surgical 4.2.7.2.686 Specialti [id number] es [address] [place] 2020-12-15 2020-12-15 Outpatient R CLAUDINE [facility] [id number] Univers 16:15:00 16:15:00 FIOR Long204 [facility] 2020-12-15 2020-12-15 Outpatient R CLAUDINE [facility] [id number] Univers 16:15:00 16:15:00 FIOR [facility] 2020-12-15 2020-12-15 Office [facility] [id number] [facility] 13:05:48 13:44:18 Visit Fior Dupont 350.1.13.10 it y of Surgical 4.2.7.2.686 Patrice as Specialti [id number] Pa dical es 198 [facility] 2020-12-15 2020-12-15 Office [facility] [id number] [id number] 13:05:48 13:44:18 Visit Fior Dupont 350.1.13.10 Surgical 4.2.7.2.686 Specialti [id number] es [address] [place] 2020-12-09 2020-12-09 [facility] DOLORES Gaffney 1.2.840.114 [id number] Univers 09:33:32 23:59:00 Encounter Shawna Campo [facility] 350.1.13.10 ity of CLINICS 4[place] [id number] [facility] [address] [place] 2020-12-09 2020-12-09 [facility] [id number] Univers 10:00:00 10:00:00 SHAWNA [id number] [facility] 2020-12-09 2020-12-09 Outpatient R MAYANK [facility] [id number] Univers 00:00:00 00:00:00 SHAWNA refugio [facility] 2020-11-25 2020-11-25 Telephone Mayank [facility] 1.2.840.114 [id number] Univers 00:00:00 00:00:00 Shawna R Y HEALTH 350.1.13.10 i ty of [place] [phone] [address] 2020-11-24 2020-11-24 Telephone Mayank, [facility] 1.2.840.114 [id number] Univers 00:00:00 00:00:00 Shawna R Y HEALTH 350.1.13.10 i ty [place] [id number] [address] 2020-10-27 2020-10-27 Outpatient STLMLC [facility]LMLC [id number] [facility] 00:[facility]:00 Allan - Lindsey l Outpati ent Clinics 2020-10-18 2020-10-18 [facility] [id number] -[id number] Univers 08:00:00 08:00:00 SHAWNA [facility] 2020-10-18 2020-10-18 Outpatient R MAYANK [facility] [id number] Univers 08:00:00 08:00:00 SHAWNA refugio [facility] 2020-09-26 2020-09-26 Telephone Mayank [facility] 1.2.840.114 [id number] Univers 00:00:00 00:00:00 Shawna R Y HEALTH 350.1.13.10 i ty of [place] [phone] [address] 2020-09-23 2020-09-23 Outpatient R MAYANK [facility] [id number] -20 Univers 09:00:00 09:00:00 SHAWNA [id number] [facility] 2020-09-23 2020-09-23 Outpatient R MAYANK [facility] [id number] Univers 09:00:00 09:00:00 SHAWNA [facility] 2020-09-19 2020-09-19 Outpatient R [facility] [id number] -20 Univers 10:00:00 10:00:00 ity of [facility] 2020 2020 Telephone Mayank [facility] 1.2.648.497 [id number] Univers 00:00:00 00:00:00 Shawna Dupont 350.1.13.10 it [place] [phone] [facility] [address] 2020-09-07 2020-09-07 Office Claudine [facility] 1.2.946.351 [id number] Univers 13:29:49 14:05:58 Visit Fior Dupont 350.1.13.10 it y of Surgical 4.2.7.2.686 Patrice as Specialti [phone] Pa dical es 198 [facility] 2020-09-07 2020-09-07 Outpatient [facility] [id number] [id number]-20 Univers 13:30:00 13:30:00 FIOR [id number] ity [facility] 2020-09-07 2020-09-07 Outpatient [facility] [id number] Univers 13:30:00 13:30:00 IFOR chand [facility] 2020-09-02 2020-09-02 [facility] 1.2.840.114 [id number] Univers 12:23:34 23:59:00 Encounter Fior Solis 350.1.13.10 it[place].2.[place] [phone] [facility] [address] 2020-09-02 2020-09-02 Outpatient [facility] [id number] 2N-20 Univers 10:00:00 10:00:00 FIOR [id number] ity [facility] 2020-09-02 2020-09-02 Outpatient [facility] [id number] Univers 10:00:00 10:00:00 FIOR chand [facility] 2020-09-02 2020-09-02 Outpatient R [facility] [id number] Univers 00:00:00 00:00:00 FIOR refugio [facility] 2020-09-02 2020-09-02 [facility] 1.2.840.114 [id number] Univers 00:00:00 00:00:00 Fior L Health 350.1.13.10 it y of Surgical 4.2.7.2.686 Patrice as Specialti [phone] Pa dical [address] [place] 2020-08-29 2020-08-29 Telephone [facility] 1.2.600.982 [id number] Univers 00:00:00 00:00:00 Sarah MULTISPEC 350.1.13.10 ity of [place] I[place].2.[place].2.[place] [phone] [address] DIABETES CLINIC 2020-08-27 2020-08-27 Outpatient STLMLC STLMLC [id number] [facility] 00[facility]00 [facility] Clin[facility] 2020-08-26 2020-08-26 Outpatient [facility] [id number] 2N-20 Univers 11:15:00 11:15:00 FIOR [id number] ity [facility] 2020-08-26 2020-08-26 Outpatient [facility] [id number] Univers 11:15:00 11:15:00 [facility] 2020-08-23 2020-08-23 [facility] [id number] [facility] 00:00:00 [facility] l Outpati ent Clinics 2020-08-17 2020-08-17 Telephone [facility] 1.2.683.615 [id number] Univers 00:00:00 00:00:00 Shawna [facility] 350.1.13.10 it [place] [phone] [facility] [address] (CLC) 2020-08-16 2020-08-16 Telephone [facility] 1.2.557.894 [id number] Univers 00:00:00 00:00:00 Sarah MULTISPEC 350.1.13.10 ity of [place] [phone] [address] DIABETES CLINIC 2020-08-10 2020-08-10 Telephone [facility] 1.2.624.538 [id number] Univers 00:00:00 00:00:00 Shawna R Health 350.1.13.10 [place] [phone] [address] ([facility]) 2020-08-04 2020-08-04 Office [facility] 1.2.848.384 [id number] Univers 12:00:39 17:02:23 Visit Prabhjot [facility] 350.1.13.10 it [place] [phone] [address] Office Building 2020-08-04 2020-08-04 Outpatient Orion [facility] [id number] 2N-20 Univers 12:00:00 12:00:00 PRABHJOT [id number] [facility] 2020-08-04 2020-08-04 Outpatient Orion [facility] [id number] Univers 12:00:00 12:00:00 [facility]OT [facility] 2020-08-03 2020-08-03 Field Machinist Josr Malin Lab Main [facility] 1.2.8 40.114 [id number] Univers 11:17:05 11:32:05 Visit Prabhjot Vidal [place] 350.1.13.10 ity [facility] 4.2.7.2.[place] Profess[place] [phone] [place] [address] [address] Building 2020-08-03 2020-08-03 Outpatient [facility] [id number] -20 Univers 11:15:00 11:15:00 [id number] [facility] 2020-08-03 2020-08-03 Outpatient [facility] [id number] Univers 11:15:00 11:15:00 LEMethodist [facility] 2020-07-27 2020-07-27 Telephone DOLORES Gaffney 1.2.840.114 [id number] Univers 00:00:00 00:00:00 Shawna R Y HEALTH 350.1.13.10 i ty of [place] [phone] [address] 2020-07-26 2020-07-26 Field Machinist Ponaima, Adc Lab Main [facility] 1.2.8 40.114 [id number] Univers 15:11:48 15:26:48 Visit Sarah Barrera 350.1.1 3.10 ity of [place] [phone] Pa dical nal 353 [facility] 2020-07-26 2020-07-26 Laboratory Pc, Adc Echo Room 1 - [facility] 1 .2.840.114 [id number] Univers 13:54:37 14:54:37 Only Shawna Gaffney 350.1.13.10 ity of [place] 4.2.7.2.686 [facility] [phone] Pa dical nal 059 [facility] 2020-07-26 2020-07-26 Outpatient R [facility] [id number] -20 Univers 14:00:00 14:00:00 [id number] ity of [facility] 2020-07-26 2020-07-26 Outpatient R [facility] [id number] Univers 14:00:00 14:00:00 ity of [facility] 2020-07-26 2020-07-26 Orders Doctor HENRRY 1.2.840.114 [id number] Univers 00:00:00 00:00:00 Only Unassigned, BRIAN 350.1.13.10 ity of [place] HOSPITAL 4.2.7.2.686 Patrice as [phone] [facility] [address] 2020-07-21 2020-07-21 Telephone DOLORES Gaffney 1.2.840.114 [id number] Univers 00:00:00 00:00:00 Shawna R Y HEALTH 350.1.13.10 i ty of CLINICS [place] [phone] [facility] [address] 2020-07-04 2020-07-04 Outpatient R JULIO [facility] [id number] -20 Univers 08:20:00 08:20:00 SARAH [id number] ity [facility] 2020-06-29 2020-06-29 Telephone Mayank [facility] 1.2.828.623 [id number] Univers 00:00:00 00:00:00 Shawna R Health 350.1.13.10 it [place] [phone] [facility] Medical [address] 2020-06-27 2020-06-27 Donovan Barrera [facility] 1.2.840.114 [id number] Univers 00:00:00 00:00:00 Management Sarah MULTISPEC 350.1.13.10 ity of [place].2.[place].2.686 [place] [phone] [place] [address] [place] DIAB[facility]ES CLINIC 2020-06-27 2020-06-27 Telephone [facility] 1.2.642.542 [id number] Univers 00:00:00 00:00:00 Shawna R Health 350.1.13.10 it [place].2.[place] [phone] [place] [address] [place] ([facility]) 2020-06-20 2020-06-20 Telephone Mayank, [facility] 1.2.840.114 [id number] Univers 00:00:00 00:00:00 Shawna R Y HEALTH 350.1.13.10 i ty of CL[place]ICS [place] [phone] [address] 2020-06-20 2020-06-20 Telephone Mayank [facility] 1.2.840.114 [id number] Univers 00:00:00 00:00:00 Shawna R Y HEALTH 350.1.13.10 i ty of CLINICS [place] [id number] [address] 2020-06-14 2020-06-14 [facility] 1.2.840.114 [id number] Univers 12:56:00 23:59:00 Encounter Shawna Solis 350.1.13.10 ity of [place].2.[place] [phone] [address] 2020-06-14 2020-06-14 Field Machinist Josr Malin Lab Main [facility] 1.2.8 40.114 [id number] Univers 13:58:53 16:30:46 Visit James Mcgarry 350.1.13.10 it[place] of [place].2.7.2.686 [place] [facility] [phone] Pa dical [facility] [address] [facility] 2020-06-14 2020-06-14 [facility] 1.2.840.114 [id number] Univers 12:54:09 12:55:00 Encounter Shawna Solis 350.1.13.10 it[place] 4.2.7.2.[place] [phone] [address] 2020-06-14 2020-06-14 [facility] 1.2.840.114 [id number] Univers 12:50:59 12:53:00 Encounter Shawna Solis 350.1.13.10 it[place] 4.2.[place].2.[place] [phone] [address] 2020-06-14 2020-06-14 Outpatient [facility] [id number] -[id number] Univers 00:00:00 00:00:00 SHAWNA ity [facility] 2020-06-14 2020-06-14 Outpatient [facility] [id number] Univers 00:00:00 00:00:00 SHAWNA ity [facility] 2020-05-26 2020-05-26 Outpatient [facility] [id number] -[id number] Univers 16:00:00 16:00:00 SHAWNA [id number] ity [facility] 2020-05-17 2020-05-17 Outpatient R [facility] [id number] -[id number] Univers 10:00:00 10:00:00 ity [facility] 2020-05-17 2020-05-17 Outpatient R CLARISSA [facility] [id number] Univers 10:00:00 10:00:00 HEIDE ity [facility] 2020-05-16 2020-05-16 Inderjit Vidal DEJERMAINE ..840.114 [id number] Univers 00:00:00 00:00:00 [employer] 350.1.13.10 it [place].2.[place] [phone] [facility] [address] 2020-05-15 2020-05-15 Telephone HENRRY [place] 1.2.238.421 [id number] Univers 00:00:00 00:00:00 Angel SILVA 350.1.13.10 i ty of HOSPITAL 4.2.7.2.686 Patrice as [phone] [facility] [address] 2020-05-13 2020-05-13 Telephone [facility] 1.2.336.791 [id number] Univers 00:00:00 00:00:00 Sarah MULTISPEC 350.1.13.10 ity of [place] IALTY 4.2.7.2.686 [facility] [phone] [address] DIABETES [facility] 2020-05-13 2020-05-13 Telephone [facility] 1.2.801.472 [id number] Univers 00:00:00 00:00:00 Sarah MULTISPEC 350.1.13.10 ity of [place] IALTY 4.2.7.2.686 [facility] [phone] [address] DIABETES [facility] 2020-05-12 2020-05-12 Laboratory Only, Adc Test [facility] 1.2.840. 114 [id number] Univers 12:37:54 12:52:54 Only Sarah Barrera 350.1.1 3.10 ity of [place] 4.2.7.2.686 [facility] [phone] [facility] [address] 2020-05-12 2020-05-12 Outpatient R [facility] [id number] -20 Univers 12:30:00 12:30:00 [id number] ity of [facility] 2020-05-12 2020-05-12 Outpatient [facility] [id number] Univers 12:30:00 12:30:00 SARAH ity [facility] 2020-05-12 2020-05-12 Orders Doctor SALES 1.2.840.114 [id number] Univers 00:00:00 00:00:00 Only Unassigned, BRIAN 350.1.13.10 ity of [place] HOSPITAL 4.2.7.2.686 Patrice as [phone] [facility] [address] 2020-05-12 2020-05-12 Telephone [facility] 1.2.768.092 [id number] Univers 00:00:00 00:00:00 Sarah MULTISPEC 350.1.13.10 ity of [place] I[place]2.[place].2.[place] [id number] [address] DIABETES CLINIC 2020-04-26 2020-04-26 Outpatient [facility] [id number] -20 Univers 10:00:00 10:00:00 SARAH [id number] ity [facility] 2020-04-22 2020-04-22 [facility] 1.2.840.114 [id number] Univers 00:00:00 00:00:00 Management Sarah MULTISPEC 350.1.13.10 ity of [place] I[place].2.[place].2.[place] [id number] [address] DIABETES CLINIC 2020-04-12 2020-04-12 Telephone [facility] 1.2.840.114 [id number] Univers 00:00:00 00:00:00 [facility] [employer] 350.1.13.10 it y of [place] 4.2.7.2.686 [facility] [place] [phone] [place] [address] [place] [address] 2020-03-09 2020-03-09 [place] 1.2.277.985 [id number] Univers 00:00:00 00:00:00 Sarah MULTISPEC 350.1.13.10 ity of [place] IALTY 4.2.7.2.686 [facility] [id number] [address] DIABETES CLINIC 2020-02-16 2020-02-16 Outpatient R MAYANK [facility] [id number] -20 Univers 00:00:00 00:00:00 SHAWNA ity [facility] 2020-01-28 2020-01-28 Outpatient [facility] [id number] -[id number] Univers 13:30:00 13:30:00 SHAWNA [id number] ity [facility] 2020-01-12 2020-01-12 Office [facility] 1.2.072.729 [id number] Univers 12:57:30 16:35:32 Visit [facility] 350.1.13.10 it [place].2.[place] [id number] [address] Office Building 2020-01-12 2020-01-12 Outpatient [facility] [id number] [facility] 13:00:00 13:00:00 HASHEM ity of [facility] 2020-01-10 2020-01-10 Outpatient Ari Chapmant [id number] 15:39:00 15:39:00 [facility] Medicine Outpati ent Clinics 2020-01-08 2020-01-08 Outpatient Ari [place] [id number] 14:30:00 14:30:00 [facility] Medicine Outpati ent Clinics 2019-10-16 2019-12-28 Office [facility] 12.840.114 [id number] 1 [facility] 10:26:14 08:22:42 Visit Vitaly Solis 350.1.13.10 it[place] of [place] 4.2.7.2.[place] [phone] [address] 2019-12-24 2019-12-24 Telephone [facility] 12.840.114 [id number] Univers 00:00:00 00:00:00 [facility] Health 350.1.13.10 [place] [phone] [address] Office Building 2019-12-21 2019-12-21 Telephone [facility] 12.840.114 [id number] Univers 00:00:00 00:00:00 [facility] Health 350.1.13.10 it [place].2.[place] [phone] [address] Office Building 2019-11-19 2019-11-19 Outpatient Ari Chapmant [id number] 09:51:00 09:51:00 t [facility]gent [facility] l Outpati ent Clinics 2019-09-09 2019-09-09 [facility] [id number] 13:40:00 13:40:00 t [facility] Medicine Outpati ent Clinics 2019-08-19 2019-08-19 Out[facility] [id number] 14:30:00 14:30:00 t [facility] Medicine Outpati ent Clinics 2019-08-11 2019-08-11 [facility] [id number] 11:44:00 11:44:00 t [facility] Medicine Outpati ent Clinics 2019-07-09 2019-07-09 [facility] [id number] 14:50:00 14:50:00 t [facility] Medicine Outpati ent Clinics 2019-07-02 2019-07-02 Outpatient [facility] [id number] 08:51:00 08:51:00 [facility] Medicine Outpati ent Clinics 2019-06-26 2019-06-26 Office Sheila DEJERMAINE 1.2.840.[id number] [place] [address] 10:13:00 12:07:32 Visit Vitaly Solis 350.1.13.10 it[place] of [place].2.7.2.[place] [phone] Pa dical nal 092 [facility] 2019-06-26 2019-06-26 Field 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 2, Adc Lab [facility] 1.2.840.114 [id number] [facility] 11:35:21 11:50:21 Visit Vitaly Sosa 350.1.13 .10 it[place] of [place] 4.2.7.2.[place] [phone] Pa dical nal 353 [facility] 2019-06-26 2019-06-26 Orders Doctor SALES 1.2.840.114 [id number] Univers 00:00:00 00:00:00 Only Unassigned, BRIAN 350.1.13.10 ity of [place] [facility] 4.2.7.2.686 Patrice as [phone] [address] 2019-06-17 2019-06-17 Telephone [facility] 1.2.840.114 [id number] Univers 00:00:00 00:00:00 Vitaly Solis 350.1.13.10 ity [facility] 4.2.7.2.[place] [phone] Pa dicky nal 2 [facility] 2019-06-11 2019-06-11 Out[facility] [id number] 11:55:00 11:55:00 [employer] [place] [facility] - Drive [facility] Medicine Outpati ent Clinics 2019-06-08 2019-06-08 Out[facility] [id number] 14:00:00 14:00:00 [facility] Medicine Outpati ent Clinics 2019-06-05 2019-06-05 Telephone [facility] 1.2.840.114 [id number] Univers 00:00:00 00:00:00 Vitaly Rowdy [place] 350.1.13.10 ity [facility] 4.2.7.2.[place] [phone] Pa dicky nal 2 [facility] 2019-06-03 2019-06-03 Out[facility] [id number] 10:15:00 10:15:00 [facility] Medicine Outpati ent Clinics 2019-04-14 2019-04-14 Ambulatory nullFlavo MNA [id number] [facility] 19:30:00 19:30:00 Pre-Reg r Neurology 00 l [place] 2019-03-11 2019-03-11 [facility] [id number] 10:50:00 10:50:00 [facility] Medicine Outpati ent Clinics 2019-03-05 2019-03-05 Out[facility] [id number] 13:30:00 13:30:00 [facility] Medicine Outpati ent Clinics 2018-12-23 2018-12-23 MADDISON Gamez [id number] Univers 14:00:00 14:00:00 t; CHANDRAKANT HATHAWAY, ALEXANDRA ity of [place], [place] [employer]CHAN[employer] Physici ans 2018-07-21 2018-07-21 Appointmen MADDISON CHOW Neurology [id number] [facility] 11:00:00 11:00:00 t; RAJI CHOW it y of ALEXANDRA, M.D. [place] Physici ans 2018-07-04 2018-07-08 Inpatient [facility] [id number] [facility] 18:31:00 22:30:[address] 2018-05-23 2018-05-23 Emergency [facility] [id number] [place] 20:46:01 20:46:01 Health 2018-05-23 2018-05-23 Emergency [facility] [id number] [place] 19:26:42 19:26:42 Health 2017-08-12 2017-08-12 Outpatient C MCSETX MCSETX [id number] Medical 09:26:00 09:26:00 [facility] 2017-06-13 2017-06-13 Outpatient C MCSETX MCSETX [id number] Medical 14:15:00 14:15:00 [facility] 2017-06-05 2017-06-05 Outpatient C MCSET[facility] MED [id number] Medical 09:33:00 09:33:00 [facility] 2017-03-19 2017-03-19 Outpatient C MCSETX KIKA [id number] Medical 07:13:00 07:13:00 [facility] 2017-02-06 2017-02-06 Outpatient C MCSETX KIKA [id number] Medical 07:43:00 07:43:00 [facility] 2017-01-08 2017-01-08 Outpatient C MCSETX MED [id number] Medical 07:03:00 07:03:00 [facility] Results Test Description Test Time Test Comments Results Result Comments Source C REACTIVE PROTEIN 2021-06-20 20:56:00 Test Item Value Reference Range Interpretation Comme nts C REACTIVE PROTEIN (test code = CRP) < 0.2 mg/dL <0.9 AB HIV 20:56:00 Test Item Value Reference Range Interpretation Comments AB HIV 1 (test code NONREACTIVE NONREACTIVE Done by Shadow Puppetaur = HIV1AB) 4th Gen HIV Ag/ Ab Combo Screen AB HIV 1 20:56:00 Test Item Value Reference Range Interpretation Comments AB HIV 1 2 (test NONREACTIVE NONREACTIVE Done by Linwood cerda [place] qui dit Ouiaur code = NSL24QT) 4th Gen HIV Ag/Ab Combo Screen COMPREHENSIVE METABOLIC [id number] 19:23:00 Test Item Value Reference Range Interpretation [...] RATE (test code = GFR) mL/mi n/1.73 f3Oizfuzuyk Range:Healthy Adults >90 mL/min/1.73 m2 For Chronic [...] N TOTAL (test code = ALKP) PROTHROMBIN [id number] 19:15:00 Test Item Value Reference Range Interpretation [...] PT every other day N THROMBOPLASTIN TIME [id number] 19:15:00 Test Item Value Reference Range Interpretation Comments PTT ACTIVATED (test code = APTT) 31.0 secs 24.9-37.0 N IS PATIENT ON ANTICOAGULANTS ? YLIST ANTICOAGULANT/ANTI PLT MEDICATION : Clopidogrel (Anti-PLT)Has Lab been notified if Patient is on Heparin Drip? NOIf Yes, order CBC, OCCULT BLOOD, PT every other day NC REACTIVE [id number] 19:14:00 Test Item Value Reference Range Interpretation Comments C REACTIVE PROTEIN (test code = < 0.2 mg/dL <0.9 CRP) AB HIV 19:14:00 Test Item Value Reference Range Interpretation Comments AB HIV 1 (test code = HIV1AB) NONREACTIVE CBC W/AUTO [id number] 18:55:00 Test Item Value Reference Range Interpretation [...] % 0-0 N code = NRBC) SED [id number] 18:55:00 Test Item Value Reference Range Interpretation Comments SED RATE (test code = SEDW) 82 mm/hr 0-15 H CBC W/AUTO [id number] 17:28:00 Test Item Value Reference Range Interpretation [...] % 0-0 N code = NRBC) SED [id number] 17:28:00 Test Item Value Reference Range Interpretation Comments SED RATE (test code = SEDW) mm/hr 0-15 - CT LOWER EXTRM W/O C [id number] 17:04:00 [facility] 1960 Sex: M Patient Name: DINO CARDOZA Unit No: [id number] EXAMS: CPT CODE: [id number] [place] L[place]TR[place] W/[place] [address] [place] SCAN RIGHT HIP AND PROXIMAL FEMUR [...] accordance with ACR practice standards and adherenceto education associate's recommendations. INDICATION: M25.551 COMPARISON: None. IMPRESSION: Findings are as described above. El ectronically Signed by Marck Hughes MD on 06/12/2021 at 1704 Reported and signed by: Marck Hughes MD CC: Wilber Allen MD Technologist: RT Viraj(R) CTDI: DLP: Trnscrpt: 06/12/2021 (3075) t.SDR.GVG [facility] NAME: DINO CARDOZA [address] [facility] PHYS: BRIMA.01 - Wilber Allen MD : 1960 AGE: 60 SEX: M [place] [address] LOC: Y.CTS PHONE #: [phone] EXAM DATE: 06/12/2021 STATUS: REG CLI FAX #: [phone] RAD #: D/C DT PAGE 1 Signed Report Patient Name: DINO CARDOZAUnit No: [id number] EXAMS: CPT CODE: [id number] CT LOWER EXTRM W/[place] [address] <Continued> Orig Print D/T: S: 06/12/2021 (1896) [facility] NAME: DINO CARDOZA [address] [facility] PHYS: [email or web address] - Wilber Allen MD : 1960 AGE:60 SEX: M [place] [address] LOC: Y.CTS PHONE #: [phone] EXAM DATE: 06/12/2021 STATUS: REG CLI FAX #: [phone] RAD #: D/C DT PAGE 2 Signed ReportCT HIP RIGHT WO [id number] 18:36:44 HISTORY: ? COMPARISON: None. TECHNIQUE: Multidetector noncontrast enhanced CT scan of right hip wascompleted followed by numerous sagittal and coronal reformats. FINDINGS: 4 part slightly displaced inte rtrochanteric/transienttrochanteric fractures of right femur noted supported by intramedullaryreportand to pins inserted through the salvador into the head and neck.Hardware appears to be in good position.Fracture fragments remaindisplaced. Some callus formation noted along the medial aspect of the shaftof the femur near lesser trochanter and surrounding the fracture lines. Right hip joint showed mild arthritis with narrowing of superior andposterior portions of the joint space, small subchondral degenerativecystic lesions in the acetabulum. Right sacroiliac joint arthritis noted. Note made of arteriosclerosis with calcifications in some of the smallerarterial branches, raising concern for possibility of chronic poorlycontrolled diabetes. CONCLUSIONS:1. Displaced intertrochanteric/transtrochanteric fractures of right femursupported by metallic orthopedic hardware. Hardware appears to be in goodposition.2. Small amount of callus reaction noted surrounding some of the fracturefragments but most of the fracture lines remain and well visible,indicating nonbony union. [facility], Radiant Results Inft User - 03/30/2021 1:37 PM CDTHISTORY: COMPARISON: None.TECHNIQUE: Multidetector noncontrast enhanced CT scan of right hip wascompleted followed by numerous sagittal and coronal reformats.FINDINGS:4 part slightly displaced intertrochanteric/transienttrochanteric fractures of right femur noted supported by intramedullaryreport and to pins inserted through the salvador into the head and neck.Hardware appears to be in good position. Fracture fragments remaindisplaced. Some callus formation noted along the medial aspect of the shaftof the femur near lesser trochanter and surrounding the fracture lines.Right hip joint showed mild arthritis with narrowing of superior andposterior portions of the joint space, small subchondral degenerativecystic lesions in the acetabulum.Right sacroiliac joint arthritisnoted.Note made of arteriosclerosis with calcifications in some of the smallerarterial branches, raising concern for possibility of chronic poorlycontrolled diabetes.CONCLUSIONS:1. Displaced intertrochanteric/transtrochanteric fractures of right femursupported by metallic orthopedic hardware. Hardwareappears to be in goodposition.2. Small amount of callus reaction noted surrounding some of the fracturefragments but most of the fracture lines remain and well visible,indicating nonbony union.[facility] [id number] 16:26:53 Test Item Value Reference Range Interpretation Comments Blood Culture Coagulase negative #2Additi onal Workup (test Staphylococcus work-up perfo rmed code = 600-7) only per reque st. Culture plate(s ) will be saved until this date : - 02/08/21 Gram stain Isolated from aerobic (test code = bottle Gram positive 664-3) cocci [facility] (NA, K, CL, CO2, GLUCOSE, BUN, CREATININE, CA)2021-02-04 10:45:05 Test Item Value Reference Range Interpretation Comments NA (test code = 136 mmol/L 135-145 5263174478) K (test code = 3.3 mmol/L 3.5-5.0 L 0311221107) CL (test code = 108 mmol/L 98-108 3784666271) CO2 TOTAL (test code = 25 mmol/L 23-31 5830932948) AGAP (test code = 2-16 6700913896) BUN (test code = 11 mg/dL 7-23 0251080291) GLUCOSE (test code = 110 mg/dL 70-110 5961760222) CREATININE (test code = 0.77 mg/dL 0.60-1.25 0754869170) CALCIUM (test code = 7.7 mg/dL 8.6-10.6 L 7646205338) eGFR Calculation mL/min/1.73m2 (Non-) (test code = 7139746980) eGFR Calculation mL/min/1.73m2 () (test code = 9476331229) LUZMARIA (test code = LUZMARIA) Association of Glomerular Filtration Rate (GFR) and Staging of Kidney Disease* + --+ --+ ------+| GFR (mL/min/1.73 m2) ?| With Kidney Damage ?| ?Without Kidney Damage+ --------+ --------+ +| ?>90 ?| ?Stage one ?| ? Normal ?+ ---+ ---+ -------+| ?60-89 ?| ?Stage two ?| ? Decreased GFR ? + --+ --+ ------+| ?30-59 ?| ?Stage three ?| ? Stage three ? + --+ --+ ------+| ?15-29 ?| ?Stage four ? | ? Stage four ?+ ---+ ---+ -------+| ?<15 (or dialysis) ? ?| ?Stage five ? | ? Stage five ?+ ---+ ---+ -------+ *Each stage assumes the associated GFR level has been in effect for at least three months. ?Stages 1 to 5, with or without kidney disease, indicate chronic kidney disease. Notes: Determination of stages one and two (with eGFR >59mL/min/1.73 m2) requires estimation of kidney damage for at least three months as defined by structural or functional abnormalities of the kidney, manifested by either:Pathological abnormalities or Markers of kidney damage (including abnormalities in the composition of the blood or urine or abnormalities in imaging tests). Lab Interpretation Abnormal (test code = 16685-7) [facility] CenterMAGNESIUM2021-[facility]-27 10:45:05 Test Item Value Reference Range Interpretation Comments MAGNESIUM (test code = 7492846684) 1.8 mg/dL 1.7-2.4 Lab Interpretation (test code = Normal 26916-5) [facility] CenterCB WITHOUT [id number] 10:12:43 Test Item Value Reference Range Interpretation Comments WBC (test code = 6690-2) See_Comment L [A utomated message] The system [employer] generated this result transmit willow reference range : 4.20 - 10.70 10*3/?L. The reference range was not used to interpret this result as normal/abnormal . RBC (test code = 789-8) See_Comment L [Au tomated message] The system [employer] generated this result transmit willow reference range : 4.26 - 5.52 10* 6/?L. The reference r brianne was not used to interpret this result as normal/abnormal . HGB (test code = 718-7) 7.4 g/dL 12.2-16.4 L HCT (test code = 4544-3) 22.5 % 38.4-49.3 L MCH (test code = 785-6) 27.5 pg 26.1-32.7 MCV (test code = 787-2) 83.6 fL 81.7-95.6 MCHC (test code = 786-4) 32.9 g/dL 31.2-35.0 PLT (test code = 777-3) See_Comment L [Au tomated message] The system [employer] generated this result transmit willow reference range : 150 - 328 10*3/?L. The reference range was not used to interpret this result as normal/abnormal . MPV (test code = 10.6 fL 9.8-13.0 54194-4) RDW-CV (test code = 15.6 % 12.1-15.4 H 788-0) RDW-SD (test code = 43.3 fL 38.5-51.6 11203-6) NRBC x10^3 (test code = <0.01 See_Comment [Au tomated message] [id number]) The system [employer] generated this result transmit willow reference range : 10*3/?L. The reference range was not used to interpret this result as normal/abnormal . NRBC/100 WBC (test code See_Comment [Au tomated message] = 7610625074) The system [facility] generated this result transmit willow reference range : 0.0 - 10.0 /100 WBC s. The reference r brianne was not used to interpret this result as normal/abnormal . IPF % (test code = 5376935166) Lab Interpretation (test Abnormal code = 21029-5) [facility] WITHOUT [id number] 23:47:20 Test Item Value Reference Range Interpretation Comments WBC (test code = 6690-2) See_Comment [A utomated message] The system [employer] generated this result transmit willow reference range : 4.20 - 10.70 10*3/?L. The reference range was not used to interpret this result as normal/abnormal . RBC (test code = 789-8) See_Comment L [Au tomated message] The system [employer] generated this result transmit willow reference range : 4.26 - 5.52 10* 6/?L. The reference r brianne was not used to interpret this result as normal/abnormal . HGB (test code = 718-7) 7.7 g/dL 12.2-16.4 L HCT (test code = 4544-3) 23.3 % 38.4-49.3 L MCH (test code = 785-6) 27.8 pg 26.1-32.7 MCV (test code = 787-2) 84.1 fL 81.7-95.6 MCHC (test code = 786-4) 33.0 g/dL 31.2-35.0 PLT (test code = 777-3) See_Comment L [Au tomated message] The system [facility] [facility] generated this result transmit willow reference range : 150 - 328 10*3/?L. The reference range was not used to interpret this result as normal/abnormal . MPV (test code = 11.1 fL 9.8-13.0 58206-4) RDW-CV (test code = 15.3 % 12.1-15.4 788-0) RDW-SD (test code = 43.8 fL 38.5-51.6 03139-9) NRBC x10^3 (test code = <0.01 See_Comment [Au tomated message] [id number]) The system [employer] generated this result transmit willow reference range : 10*3/?L. The reference range was not used to interpret this result as normal/abnormal . NRBC/100 WBC (test code See_Comment [Au tomated message] = 1763699775) The system [facility] generated this result transmit willow reference range : 0.0 - 10.0 /100 WBC s. The reference r brianne was not used to interpret this result as normal/abnormal . IPF % (test code = 4411246584) Lab Interpretation (test Abnormal code = 28585-6) [facility] WITHOUT [id number] 12:55:33 Test Item Value Reference Range Interpretation Comments WBC (test code = 6690-2) See_Comment L [A utomated message] The system [employer] generated this result transmit willow reference range : 4.20 - 10.70 10*3/?L. The reference range was not used to interpret this result as normal/abnormal . RBC (test code = 789-8) See_Comment L [Au tomated message] The system [employer] generated this result transmit willow reference range : 4.26 - 5.52 10* 6/?L. The reference r brianne was not used to interpret this result as normal/abnormal . HGB (test code = 718-7) 7.2 g/dL 12.2-16.4 L HCT (test code = 4544-3) 21.4 % 38.4-49.3 L MCH (test code = 785-6) 28.0 pg 26.1-32.7 MCV (test code = 787-2) 83.3 fL 81.7-95.6 MCHC (test code = 786-4) 33.6 g/dL 31.2-35.0 PLT (test code = 777-3) See_Comment L [Au tomated message] The system [facility] generated this result transmit willow reference range : 150 - 328 10*3/?L. The reference range was not used to interpret this result as normal/abnormal . MPV (test code = 10.6 fL 9.8-13.0 68377-1) RDW-CV (test code = 14.7 % 12.1-15.4 788-0) RDW-SD (test code = 42.5 fL 38.5-51.6 64834-3) NRBC x10^3 (test code = <0.01 See_Comment [Au tomated message] [id number]) The system [facility] generated this result transmit willow reference range : 10*3/?L. The reference range was not used to interpret this result as normal/abnormal . NRBC/100 WBC (test code See_Comment [Au tomated message] = 2110725122) The system [facility] generated this result transmit willow reference range : 0.0 - 10.0 /100 WBC s. The reference r brianne was not used to interpret this result as normal/abnormal . IPF % (test code = 8653520574) Lab Interpretation (test Abnormal code = 00172-7) [facility] CenterGRAM POSITIVE BLOOD PATHOGENS DNA [id number] 07:20:55 Test Item Value Reference Range Interpretation Comments Coagulase Negative Positive Negative, See A Staphylococcus (test Comment/Narrative code = 99836-5) LUZMARIA (test code = LUZMARIA) Coagulase negative Staphylococcus (CoNS) detected by DNA probe. ?CoNS often contaminate blood cultures from skin colonization during phlebotomy. ?Preferred management is to repeat blood cultures, and monitor off antibiotics. ?Contamination is suggested by culture growth after 48 hours, or growth in single culture (i.e., one of two sets). ?True bacteremia is suggested by the fever, hypotension, and leukocytosis that are not explained by an alternative infection, or indwelling foreign devices that appear infected (catheters, lines, or prostheses). Consider Infectious Diseases consultation if differentiation of CoNS bacteremia from contamination is uncertain. If clinical context suggests true bacteremia, preferred therapy is vancomycin. Please contact the Antimicrobial Stewardship Program with questions.Pager: ?[phone] Testing included eleven identification and three resistance marker targets. Lab Interpretation Abnormal (test code = 54416-1) [facility] (NA, K, CL, CO2, GLUCOSE, BUN, CREATININE, CA)2021-02-03 05:45:08 Test Item Value Reference Range Interpretation Comments NA (test code = 136 mmol/L 135-145 2742555329) K (test code = 3.6 mmol/L 3.5-5.0 5938371273) CL (test code = 108 mmol/L 98-108 2909900412) CO2 TOTAL (test code = 25 mmol/L 23-31 9158444579) AGAP (test code = 2-16 0629726817) BUN (test code = 21 mg/dL 7-23 2758627079) GLUCOSE (test code = 92 mg/dL 70-110 7312206765) CREATININE (test code = 0.83 mg/dL 0.60-1.25 1351654287) CALCIUM (test code = 7.9 mg/dL 8.6-10.6 L 8028102013) eGFR Calculation mL/min/1.73m2 (Non-) (test code = 4160039320) eGFR Calculation mL/min/1.73m2 () (test code = 1072512336) LUZMARIA (test code = LUZMARIA) Association of Glomerular Filtration Rate (GFR) and Staging of Kidney Disease* + --+ --+ ------+| GFR (mL/min/1.73 m2) ?| With Kidney Damage ?| ?Without Kidney Damage+ --------+ --------+ +| ?>90 ?| ?Stage one ?| ? Normal ?+ ---+ ---+ -------+| ?60-89 ?| ?Stage two ?| ? Decreased GFR ? + --+ --+ ------+| ?30-59 ?| ?Stage three ?| ? Stage three ? + --+ --+ ------+| ?15-29 ?| ?Stage four ? | ? Stage four ?+ ---+ ---+ -------+| ?<15 (or dialysis) ? ?| ?Stage five ? | ? Stage five ?+ ---+ ---+ -------+ *Each stage assumes the associated GFR level has been in effect for at least three months. ?Stages 1 to 5, with or without kidney disease, indicate chronic kidney disease. Notes: Determination of stages one and two (with eGFR >59mL/min/1.73 m2) requires estimation of kidney damage for at least three months as defined by structural or functional abnormalities of the kidney, manifested by either:Pathological abnormalities or Markers of kidney damage (including abnormalities in the composition of the blood or urine or abnormalities in imaging tests). Lab Interpretation Abnormal (test code = 66309-3) [facility] WITHOUT [id number] 05:23:23 Test Item Value Reference Range Interpretation Comments WBC (test code = 6690-2) See_Comment L [A utomated message] The system [employer] generated this result transmit willow reference range : 4.20 - 10.70 10*3/?L. The reference range was not used to interpret this result as normal/abnormal . RBC (test code = 789-8) See_Comment L [Au tomated message] The system [employer] generated this result transmit willow reference range : 4.26 - 5.52 10* 6/?L. The reference r brianne was not used to interpret this result as normal/abnormal . HGB (test code = 718-7) 7.3 g/dL 12.2-16.4 L HCT (test code = 4544-3) 22.0 % 38.4-49.3 L MCH (test code = 785-6) 27.8 pg 26.1-32.7 MCV (test code = 787-2) 83.7 fL 81.7-95.6 MCHC (test code = 786-4) 33.2 g/dL 31.2-35.0 PLT (test code = 777-3) See_Comment L [Au tomated message] The system [employer] generated this result transmit willow reference range : 150 - 328 10*3/?L. The reference range was not used to interpret this result as normal/abnormal . MPV (test code = 10.8 fL 9.8-13.0 28697-0) RDW-CV (test code = 14.6 % 12.1-15.4 788-0) RDW-SD (test code = 43.5 fL 38.5-51.6 78387-4) NRBC x10^3 (test code = <0.01 See_Comment [Au tomated message] [id number]) The system [employer] generated this result transmit willow reference range : 10*3/?L. The reference range was not used to interpret this result as normal/abnormal . NRBC/100 WBC (test code See_Comment [Au tomated message] = 2914885650) The system [facility] generated this result transmit willow reference range : 0.0 - 10.0 /100 WBC s. The reference r brianne was not used to interpret this result as normal/abnormal . IPF % (test code = 1895349116) Lab Interpretation (test Abnormal code = 51357-6) [facility] WITHOUT [id number] 23:30:01 Test Item Value Reference Range Interpretation Comments WBC (test code = 6690-2) See_Comment [A utomated message] The system [employer] generated this result transmit willow reference range : 4.20 - 10.70 10*3/?L. The reference range was not used to interpret this result as normal/abnormal . RBC (test code = 789-8) See_Comment L [Au tomated message] The system [employer] generated this result transmit willow reference range : 4.26 - 5.52 10* 6/?L. The reference r brianne was not used to interpret this result as normal/abnormal . HGB (test code = 718-7) 8.0 g/dL 12.2-16.4 L HCT (test code = 4544-3) 24.3 % 38.4-49.3 L MCH (test code = 785-6) 28.1 pg 26.1-32.7 MCV (test code = 787-2) 85.3 fL 81.7-95.6 MCHC (test code = 786-4) 32.9 g/dL 31.2-35.0 PLT (test code = 777-3) See_Comment L [Au tomated message] The system [employer] generated this result transmit willow reference range : 150 - 328 10*3/?L. The reference range was not used to interpret this result as normal/abnormal . MPV (test code = 11.1 fL 9.8-13.0 44190-7) RDW-CV (test code = 14.8 % 12.1-15.4 788-0) RDW-SD (test code = 44.9 fL 38.5-51.6 10982-7) NRBC x10^3 (test code = <0.01 See_Comment [Au tomated message] 3139084296) The system [employer] generated this result transmit willow reference range : 10*3/?L. The reference range was not used to interpret this result as normal/abnormal . NRBC/100 WBC (test code See_Comment [Au tomated message] = 8104867014) The system [facility] generated this result transmit willow reference range : 0.0 - 10.0 /100 WBC s. The reference r brianne was not used to interpret this result as normal/abnormal . IPF % (test code = 4265315942) Lab Interpretation (test Abnormal code = 96984-2) [facility] WITHOUT [id number] 16:39:46 Test Item Value Reference Range Interpretation Comments WBC (test code = 6690-2) See_Comment L [A utomated message] The system [employer] generated this result transmit willow reference range : 4.20 - 10.70 10*3/?L. The reference range was not used to interpret this result as normal/abnormal . RBC (test code = 789-8) See_Comment L [Au tomated message] The system [employer] generated this result transmit willow reference range : 4.26 - 5.52 10* 6/?L. The reference r brianne was not used to interpret this result as normal/abnormal . HGB (test code = 718-7) 7.8 g/dL 12.2-16.4 L HCT (test code = 4544-3) 23.7 % 38.4-49.3 L MCH (test code = 785-6) 27.6 pg 26.1-32.7 MCV (test code = 787-2) 83.7 fL 81.7-95.6 MCHC (test code = 786-4) 32.9 g/dL 31.2-35.0 PLT (test code = 777-3) See_Comment L [Au tomated message] The system [employer] generated this result transmit willow reference range : 150 - 328 10*3/?L. The reference range was not used to interpret this result as normal/abnormal . MPV (test code = 10.4 fL 9.8-13.0 14057-0) RDW-CV (test code = 14.8 % 12.1-15.4 788-0) RDW-SD (test code = 43.2 fL 38.5-51.6 62285-5) NRBC x10^3 (test code = <0.01 See_Comment [Au tomated message] [id number]) The system [employer] generated this result transmit willow reference range : 10*3/?L. The reference range was not used to interpret this result as normal/abnormal . NRBC/100 WBC (test code See_Comment [Au tomated message] = 0020031513) The system [facility] generated this result transmit willow reference range : 0.0 - 10.0 /100 WBC s. The reference r brianne was not used to interpret this result as normal/abnormal . IPF % (test code = 6808026776) Lab Interpretation (test Abnormal code = 59072-3) [facility] WITH [id number] 13:12:25 1. ?Cirrhotic liver morphology with stigmata of portal hypertensionmanifested by hepatosplenomegalyand dilated main portal vein. 2. ?Cholelithiasis without evidence of cholecystitis. 3. ? Right-sidedsmall volume pleural effusion. Preliminary Report Dictated by Resident: Buck Lainez I, Babar Wood MD., have reviewed this study and agree with the abovereport.HISTORY: hx of cirrhosis With doppler. ABDOMINAL ULTRASOUND, LIMITED. COMPARISON: CT abdomen pelvis dated 01/30/2021. FINDINGS: LIVER:The liver demonstrates heterogeneous coarse echotexture and mildlynodular contour, measures 17.8 cm in craniocaudal dimension. No focalhepatic lesion. ?Normal hepatopetal ?flow within the main portal vein. Themain portal vein is dilated, measures 1.6 cm and demonstrates a PSV of 28.9cm/s. GALLBLADDER:Echogenic stones with posterior acoustic shadowing fill thegallbladder. No pericholecystic fluid, orgallbladder distention. Thegallbladder wall measures 0.2 cm. No sonographic Khan's sign. The commonbile duct measures 0.7 cm. PANCREAS: The visualized portions of the pancreas appear unremarkable SPLEEN: The spleen is enlarged, measuring 17.5 cm. KIDNEYS: The visualized kidneys appear normal. No ascites. The suprarenal abdominal aorta measures 2 cm in AP diameter. A small volume of pleural effusion layers within the right hemithorax. [facility], Radiant Results Inft User - 02/02/2021 8:17 AM CDTHISTORY: hx of cirrhosis With doppler.ABDOMINAL ULTRASOUND, LIMITED.COMPARISON: CT abdomen pelvis dated 01/30/2021.FINDINGS: LIVER: The liver demonstrates heterogeneous coarse echotexture and mildlynodular contour, measures 17.8 cm in craniocaudal dimension. No focalhepatic lesion. Normal hepatopetal flow within the main portal vein. Themain portal vein is dilated, measures 1.6 cm and demonstrates a PSV of28.9cm/s.GALLBLADDER: Echogenic stones with posterior acoustic shadowing fill thegallbladder. No anai cholecystic fluid, or gallbladder distention. Thegallbladder wall measures 0.2 cm. No sonographic Khan's sign. The commonbile duct measures 0.7 cm.PANCREAS: The visualized portions of the pancreas appear unremarkableSPLEEN: The spleen is enlarged, measuring 17.5 cm. KIDNEYS: The visualized kidneys appear normal.No ascites.The suprarenal abdominal aorta measures 2 cm in AP diameter.A small volume ofpleural effusion layers within the right hemithorax.IMPRESSION1. Cirrhotic liver morphology with stigmata of portal hypertensionmanifested by hepatosplenomegaly and dilated main portal vein.2. Cholelithiasis without evidence of cholecystitis.3. Right-sided small volume pleural effusion.PreliminaryReport Dictated by Resident: Buck Delatorre, Babar Wood MD., have reviewed this study and agree with the abovereport.[facility] Center[facility] [id number] 12:34:49 Test Item Value Reference Range Interpretation Comments URINE CULTURE (test < 10,000 CFU/mL mixed code = 630-4) aerobic organisms - suggests endogenous microbial contamination [facility] MET[facility]OLIC [facility] (NA, K, CL, CO2, GLUCOSE, BUN, CREATININE, CA)2021-02-02 09:57:34 Test Item Value Reference Range Interpretation Comments NA (test code = 140 mmol/L 135-145 0681398379) K (test code = 4.0 mmol/L 3.5-5.0 9567796575) CL (test code = 113 mmol/L 98-108 H 9608842401) CO2 TOTAL (test code = 24 mmol/L 23-31 4344200600) AGAP (test code = 2-16 3115449685) BUN (test code = 40 mg/dL 7-23 H 4396530298) GLUCOSE (test code = 83 mg/dL 70-110 4248262166) CREATININE (test code = 0.94 mg/dL 0.60-1.25 0286973689) CALCIUM (test code = 8.2 mg/dL 8.6-10.6 L 7821862926) eGFR Calculation mL/min/1.73m2 (Non-) (test code = 1439899399) eGFR Calculation mL/min/1.73m2 () (test code = 8884753542) LUZMARIA (test code = LUZMARIA) Association of Glomerular Filtration Rate (GFR) and Staging of Kidney Disease* + --+ --+ ------+| GFR (mL/min/1.73 m2) ?| With Kidney Damage ?| ?Without Kidney Damage+ --------+ --------+ +| ?>90 ?| ?Stage one ?| ? Normal ?+ ---+ ---+ -------+| ?60-89 ?| ?Stage two ?| ? Decreased GFR ? + --+ --+ ------+| ?30-59 ?| ?Stage three ?| ? Stage three ? + --+ --+ ------+| ?15-29 ?| ?Stage four ? | ? Stage four ?+ ---+ ---+ -------+| ?<15 (or dialysis) ? ?| ?Stage five ? | ? Stage five ?+ ---+ ---+ -------+ *Each stage assumes the associated GFR level has been in effect for at least three months. ?Stages 1 to 5, with or without kidney disease, indicate chronic kidney disease. Notes: Determination of stages one and two (with eGFR >59mL/min/1.73 m2) requires estimation of kidney damage for at least three months as defined by structural or functional abnormalities of the kidney, manifested by either:Pathological abnormalities or Markers of kidney damage (including abnormalities in the composition of the blood or urine or abnormalities in imaging tests). Lab Interpretation Abnormal (test code = 70254-8) [facility] WITHOUT [id number] 09:22:11 Test Item Value Reference Range Interpretation Comments WBC (test code = 6690-2) See_Comment L [A utomated message] The system [employer] generated this result transmit willow reference range : 4.20 - 10.70 10*3/?L. The reference range was not used to interpret this result as normal/abnormal . RBC (test code = 789-8) See_Comment L [Au tomated message] The system [employer] generated this result transmit willow reference range : 4.26 - 5.52 10* 6/?L. The reference r brianne was not used to interpret this result as normal/abnormal . HGB (test code = 718-7) 7.5 g/dL 12.2-16.4 L HCT (test code = 4544-3) 22.4 % 38.4-49.3 L MCH (test code = 785-6) 27.7 pg 26.1-32.7 MCV (test code = 787-2) 82.7 fL 81.7-95.6 MCHC (test code = 786-4) 33.5 g/dL 31.2-35.0 PLT (test code = 777-3) See_Comment L [Au tomated message] The system [employer] generated this result transmit willow reference range : 150 - 328 10*3/?L. The reference range was not used to interpret this result as normal/abnormal . MPV (test code = 11.0 fL 9.8-13.0 22445-9) RDW-CV (test code = 14.7 % 12.1-15.4 788-0) RDW-SD (test code = 42.7 fL 38.5-51.6 35973-5) NRBC x10^3 (test code = <0.01 See_Comment [Au tomated message] [id number]) The system [employer] generated this result transmit willow reference range : 10*3/?L. The reference range was not used to interpret this result as normal/abnormal . NRBC/100 WBC (test code See_Comment [Au tomated message] = 3966028422) The system [facility] generated this result transmit willow reference range : 0.0 - 10.0 /100 WBC s. The reference r brianne was not used to interpret this result as normal/abnormal . IPF % (test code = 6987359603) Lab Interpretation (test Abnormal code = 93662-1) [facility] WITHOUT [id number] 04:00:06 Test Item Value Reference Range Interpretation Comments WBC (test code = 6690-2) See_Comment [A utomated message] The system [facility] generated this result transmit willow reference range : 4.20 - 10.70 10*3/?L. The reference range was not used to interpret this result as normal/abnormal . RBC (test code = 789-8) See_Comment L [Au tomated message] The system [facility] generated this result transmit willow reference range : 4.26 - 5.52 10* 6/?L. The reference r brianne was not used to interpret this result as normal/abnormal . HGB (test code = 718-7) 7.8 g/dL 12.2-16.4 L HCT (test code = 4544-3) 23.8 % 38.4-49.3 L MCH (test code = 785-6) 27.5 pg 26.1-32.7 MCV (test code = 787-2) 83.8 fL 81.7-95.6 MCHC (test code = 786-4) 32.8 g/dL 31.2-35.0 PLT (test code = 777-3) See_Comment L [Au tomated message] The system [facility] elicit generated this result transmit willow reference range : 150 - 328 10*3/?L. The reference range was not used to interpret this result as normal/abnormal . MPV (test code = 11.0 fL 9.8-13.0 88312-9) RDW-CV (test code = 14.6 % 12.1-15.4 788-0) RDW-SD (test code = 44.1 fL 38.5-51.6 79309-8) NRBC x10^3 (test code = <0.01 See_Comment [Au tomated message] 0877640518) The system [employer] generated this result transmit willow reference range : 10*3/?L. The reference range was not used to interpret this result as normal/abnormal . NRBC/100 WBC (test code See_Comment [Au tomated message] = 9647086994) The system [facility] generated this result transmit willow reference range : 0.0 - 10.0 /100 WBC s. The reference r brianne was not used to interpret this result as normal/abnormal . IPF % (test code = 4103657081) Lab Interpretation (test Abnormal code = 76583-2) [facility] METABOLIC PANEL (NA, K, CL, CO2, GLUCOSE, BUN, CREATININE, CA)2021-02-01 21:42:07 Test Item Value Reference Range Interpretation Comments NA (test code = 137 mmol/L 135-145 0735842158) K (test code = 4.5 mmol/L 3.5-5.0 3556965076) CL (test code = 114 mmol/L 98-108 H 8387671720) CO2 TOTAL (test code = 20 mmol/L 23-31 L 6995134655) AGAP (test code = 2-16 2648389635) BUN (test code = 63 mg/dL 7-23 H 1986683257) GLUCOSE (test code = 94 mg/dL 70-110 7513906067) CREATININE (test code = 1.05 mg/dL 0.60-1.25 6258491065) CALCIUM (test code = 7.5 mg/dL 8.6-10.6 L 7434944095) eGFR Calculation mL/min/1.73m2 (Non-) (test code = 0623712964) eGFR Calculation mL/min/1.73m2 () (test code = 6441492959) LUZMARIA (test code = LUZMARIA) Association of Glomerular Filtration Rate (GFR) and Staging of Kidney Disease* + --+ --+ ------+| GFR (mL/min/1.73 m2) ?| With Kidney Damage ?| ?Without Kidney Damage+ --------+ --------+ +| ?>90 ?| ?Stage one ?| ? Normal ?+ ---+ ---+ -------+| ?60-89 ?| ?Stage two ?| ? Decreased GFR ? + --+ --+ ------+| ?30-59 ?| ?Stage three ?| ? Stage three ? + --+ --+ ------+| ?15-29 ?| ?Stage four ? | ? Stage four ?+ ---+ ---+ -------+| ?<15 (or dialysis) ? ?| ?Stage five ? | ? Stage five ?+ ---+ ---+ -------+ *Each stage assumes the associated GFR level has been in effect for at least three months. ?Stages 1 to 5, with or without kidney disease, indicate chronic kidney disease. Notes: Determination of stages one and two (with eGFR >59mL/min/1.73 m2) requires estimation of kidney damage for at least three months as defined by structural or functional abnormalities of the kidney, manifested by either:Pathological abnormalities or Markers of kidney damage (including abnormalities in the composition of the blood or urine or abnormalities in imaging tests). Lab Interpretation Abnormal (test code = 77732-0) [facility] (in units), 1 Units 2021-02-01 21:22:58 Test Item Value Reference Range Interpretation Comments Cross Match Result Compatible (test code = 4409) ISBT Blood Type Code (test code = 034351) Unit Blood Type (test A Pos code = 4410) Unit Number (test [id number] code = 4411) Blood Expiration Date & Time (test code = 923396) Status Information Returned from (test code = 4412) Issue Product Red Blood Cells Identification (test code = 4413) Product Code (test L8628D61 Performed at code = 4414) [facility] Laboratory Services - [facility] Blood [address] [place] [address] [id number] Free: [phone] A No. [id number] [facility] CenterXR CHEST 1 [id number] 20:11:53 1. Vascular sheath overlying the upper SVC. No signs of acute process. Delicia Pulido MD., have reviewed this study and agree with theabove report.PROCEDURE: XR CHEST 1 VW CLINICAL INDICATION: s/p CVC placement TECHNIQUE: Frontal chest radiograph was obtained. COMPARISON: 09/01/2016. FINDINGS: The right IJ vascular sheath overlies the upper SVC. Normal lung volumes. Mild basilar atelectasis. No pleural effusion orpneumothorax is seen. The heart is normal in size. Aortic arch calcifications are present. No acute bony abnormality is noted. [facility], Radiant Results Inft User - 02/01/2021 3:12 PM CDTPROCEDURE: XR CHEST 1 VWCLINICAL INDICATION: s/p CVC placement TECHNIQUE: Frontal chest radiograph was obtained.COMPARISON: 09/01/2016.FINDINGS:The right IJ vascular sheath overlies the upper SVC.Normal lung volumes. Mild basilar atelectasis. No pleural effusion orpneumothorax is seen. The heart is normal in size. Aortic arch calcifications are present.No acute bony abnormality is noted.IMPRESSION1. Vascular sheath overlying the upper SVC. No signs of acute process.Delicia Pulido MD., have reviewed this study and agree with theabove report.[facility] CenterCBC WITH [id number] 19:09:39 Test Item Value Reference Range Interpretation Comments WBC (test code = See_Comment [Automated 6690-2) message] The sy stem which generated this result transmitted reference range : 4.20 - 10.70 10*3/?L. The reference range was not used to interpret this result as normal/abnormal . RBC (test code = See_Comment L [Automated 789-8) message] The sy stem which generated this result transmitted reference range : 4.26 - 5.52 10*6/?L. The reference range was not used to interpret this result as normal/abnormal . HGB (test code = 7.3 g/dL 12.2-16.4 L 718-7) HCT (test code = 22.3 % 38.4-49.3 L 4544-3) MCV (test code = 83.5 fL 81.7-95.6 787-2) MCH (test code = 27.3 pg 26.1-32.7 785-6) MCHC (test code = 32.7 g/dL 31.2-35.0 786-4) RDW-SD (test code = 45.1 fL 38.5-51.6 79394-6) RDW-CV (test code = 15.0 % 12.1-15.4 788-0) PLT (test code = See_Comment L [Automated 777-3) message] The sy stem which generated this result transmitted reference range : 150 - 328 10*3/ ?L. The reference r brianne was not used to interpret this result as normal/abnormal . MPV (test code = 10.3 fL 9.8-13.0 55472-1) NRBC/100 WBC (test See_Comment [Automat ed code = 0730006567) message] The system which generated this result transmitted reference range : 0.0 - 10.0 /100 WBCs. The refer ence range was not u sed to interpret th is result as normal/abnormal . NRBC x10^3 (test code <0.01 See_Comment [Auto mated = 2844235382) message] The s ystem which generated this result transmitted reference range : 10*3/?L. The reference range was not used to interpret this result as normal/abnormal . GRAN MAT (NEUT) % 61.7 % (test code = 770-8) IMM GRAN % (test code 0.70 % = 1489611814) LYMPH % (test code = 29.2 % 736-9) MONO % (test code = 6.8 % 5905-5) EOS % (test code = 1.0 % 713-8) BASO % (test code = 0.6 % 706-2) GRAN MAT x10^3(ANC) 4.36 10*3/uL 1.99-6.95 (test code = 4233328475) IMM GRAN x10^3 (test 0.05 10*3/uL 0.00-0.06 code = 3073650480) LYMPH x10^3 (test code 2.06 10*3/uL 1.09-3.23 = 731-0) MONO x10^3 (test code 0.48 10*3/uL 0.36-1.02 = 742-7) EOS x10^3 (test code = 0.07 10*3/uL 0.06-0.53 711-2) BASO x10^3 (test code 0.04 10*3/uL 0.01-0.09 = 704-7) Lab Interpretation Abnormal (test code = 92890-6) [facility] CenterMRSA / MSSA Screen by Herminia SAUCEDAVpiwt0641-14-07 18:34:06 Test Item Value Reference Range Interpretation Comments MSSA Screen by Herminia SAUCEDA (test code Negative Negative = 25804-1) MRSA/MSSA Positive? (test code = No No 8247970434) Lab Interpretation (test code = Normal 15716-0) [facility] CenterPrepare Packed RBC (in units), 1 Units 2021-02-01 18:08:18 Test Item Value Reference Range Interpretation Comments Cross Match Result Compatible (test code = 4409) ISBT Blood Type Code (test code = 682788) Unit Blood Type (test A Neg code = 4410) Unit Number (test [id number] code = 4411) Blood Expiration Date & Time (test code = 776962) Status Information Issued (test code = 4412) Product Red Blood Cells Identification (test code = 4413) Product Code (test D2207S84 Performed at [facility] code = 4414) Laboratory Services - [facility] Blood [address] [place] [id number] Free: [phone] A No. [id number] [facility] WITHOUT [id number] 17:40:36 Test Item Value Reference Range Interpretation Comments WBC (test code = 6690-2) See_Comment [A utomated message] The system [employer] generated this result transmit willow reference range : 4.20 - 10.70 10*3/?L. The reference range was not used to interpret this result as normal/abnormal . RBC (test code = 789-8) See_Comment L [Au tomated message] The system [employer] generated this result transmit willow reference range : 4.26 - 5.52 10* 6/?L. The reference r brianne was not used to interpret this result as normal/abnormal . HGB (test code = 718-7) 6.4 g/dL 12.2-16.4 L HCT (test code = 4544-3) 19.6 % 38.4-49.3 L MCH (test code = 785-6) 27.2 pg 26.1-32.7 MCV (test code = 787-2) 83.4 fL 81.7-95.6 MCHC (test code = 786-4) 32.7 g/dL 31.2-35.0 PLT (test code = 777-3) See_Comment L [Au tomated message] The system [employer] generated this result transmit willow reference range : 150 - 328 10*3/?L. The reference range was not used to interpret this result as normal/abnormal . MPV (test code = 10.3 fL 9.8-13.0 78550-2) RDW-CV (test code = 14.6 % 12.1-15.4 788-0) RDW-SD (test code = 43.8 fL 38.5-51.6 46398-5) NRBC x10^3 (test code = <0.01 See_Comment [Au tomated message] 9459652725) The system [employer] generated this result transmit willow reference range : 10*3/?L. The reference range was not used to interpret this result as normal/abnormal . NRBC/100 WBC (test code See_Comment [Au tomated message] = 5013207437) The system [facility] [facility] generated this result transmit willow reference range : 0.0 - 10.0 /100 WBC s. The reference r brianne was not used to interpret this result as normal/abnormal . IPF % (test code = 4297948360) Lab Interpretation (test Abnormal code = 11320-4) [facility] CenterACUTE [facility]ARE VENOUS BLOOD [id number] 17:09:32 Test Item Value Reference Range Interpretation Comments PH (test code = 7.32-7.42 2936880926) PCO2 ARMIDA (test code = See_Comment L [Auto mated message] 1666897093) The system [employer] generated this result transmitted ref erence range: 41 - 51 mmHg. The reference r brianne was not used to interpret this result as normal/abnor mal. PO2 ARMIDA (test code = See_Comment [Autom ated message] 7710240951) The system [employer] generated this result transmitted ref erence range: 25 - 40 mmHg. The reference r brianne was not used to interpret this result as normal/abnor mal. HCO3 ARMIDA (test code = See_Comment L [Auto mated message] 4964953509) The system [employer] generated this result transmitted ref erence range: 24 - 28 mEq/L. The reference r brianne was not used to interpret this result as normal/abnor mal. AC VBE(BEAKER) (test mEq/L code = 3256290413) Lab Interpretation (test Abnormal code = 44036-3) [facility] CenterCT ABDOMEN PELVIS W [id number] 15:56:42Impression: 1. ?No evidence of contrast extravasation to suggest presence of active GIbleed. 2. ?Cirrhotic liver morphology with portal hypertension and splenomegaly.No focal hepatic lesions are seen.There is mild periportal edema.Cholelithiasis with no evidence of acute cholecystitis. 3. ?Prominentextra hepatic CBD with a filling defect near the ampulla bestseen on 502:44. This may represent choledocholithiasis. 4. ?Nonobstructing calculi are seen near the inferior pole of the leftkidney. Small right-sided pleural effusion.Exam: CT ABDOMEN PELVIS W CONTRAST Clinical History: GI bleed Comparison: 2018 Findings: The visualized lung bases are clear and there is a small right-sidedpleural effusion with no left-sided pleural effusion or pericardialeffusion. The liver shows no focal lesions or ductal dilatation. There is enlargementwith nodular contour and asymmetric enlargement of the left lobe. Spleen isenlarged and shows no focal lesions. Cholelithiasis with no evidence ofacute cholecystitis. Prominent extra hepatic CBD with a filling defect nearthe ampulla best seen on 502:44. This may represent choledocholithiasis. Noevidence of hydronephrosis. Nonobstructing calculi are seen in the inferiorpole of the left kidney. There is no evidence of free fluid, air, or lymphadenopathy seen in theabdomen and pelvis. No evidence of dilated bowel loops, diverticulitis, orappendicitis. Urinary bladder and prostate are unremarkable. Abdominal wall shows a small fat-containing umbilical hernia. Vasculatureshows scattered atherosclerotic calcifications and the bones show internalfixation of the right proximal femur and degenerative changes with nosuspicious focal lesions. [facility], Radiant Results Inft User - 02/01/2021 10:57 AM CDTExam: CT ABDOMEN PELVIS W CONTRASTClinical History: GI bleed Comparison: 2018Findings: The visualized lung bases are clear and there is a small right- sidedpleural effusion with no left-sided pleural effusion or pericardialeffusion.The liver shows no focal lesions or ductaldilatation. There is enlargementwith nodular contour and asymmetric enlargement of the left lobe. Spleen isenlarged and shows no focal lesions. Cholelithiasis with no evidence ofacute cholecystitis. Prominent extra hepatic CBD with a filling defect nearthe ampulla best seen on 502:44. This may represent choledocholithiasis. Noevidence of hydronephrosis. Nonobstructing calculi are seen in the inferiorpole of the left kidney.There is no evidence of free fluid, air, or lymphadenopathy seen in theabdomen and pelvis. No evidence of dilated bowel loops, diverticulitis, orappendicitis. Urinary bladder andprostate are unremarkable.Abdominal wall shows a small fat-containing umbilical hernia. Vasculatureshows scattered atherosclerotic calcifications and the bones show internalfixation of the right proximal femur and degenerative changes with nosuspicious focal lesions.IMPRESSIONImpression: 1. No evidence of contrast extravasation to suggest presence of active GIbleed.2. Cirrhotic liver morphology with portal hypertension and splenomegaly.No focal hepatic lesions are seen. There is mild periportal edema.Cholelithiasis with no evidence of acute cholecystitis.3. Prominent extra hepatic CBD with a filling defect near the ampulla bestseen on 502:44. This may represent choledocholithiasis.4. Nonobstructing calculi are seen near the inferior pole of the leftkidney. Small right-sided pleural effusion.[facility] CenterPrepare Packed RBC (in units), 1 [id number] 12:46:00 Test Item Value Reference Range Interpretation Comments Cross Match Result Compatible (test code = 4409) ISBT Blood Type Code (test code = 682571) Unit Blood Type (test A Neg code = 4410) Unit Number (test [id number] code = 4411) Blood Expiration Date & Time (test code = 022738) Status Information Issued (test code = 4412) Product Red Blood Cells Identification (test code = 4413) Product Code (test Y0504T96 Performed at [facility] code = 4414) Laboratory Services - [facility] Blood [address] [place] [id number] Free: [phone] A No. [id number] [facility] CenterType and Screen - ONCE [id number] 12:23:16 Test Item Value Reference Range Interpretation Comments ABO & RH (test code A POSITIVE Performe d at [facility] = 20) Laboratory Serv [facility] Blood Bank[address] [facility] s [address]Vtzm Free: [phone] A No. [id number] IAT (test code = Negative Performed a t [facility] 1185) Laboratory Serv [facility] Blood Bank[address] [facility] s [address]Lpux Free: [phone] A No. [id number] [facility] CenterFIBRINOGEN2021-03-24 11:52:03 Test Item Value Reference Range Interpretation Comments Fibrinogen (test code = 5765588411) 188 mg/dL 167-453 Lab Interpretation (test code = Normal 83254-9) [facility] CenterBasi Metabolic Panel (NA, K, CL, CO2, Glucose, BUN, Creatinine, CA)2021-02-01 10:53:12 Test Item Value Reference Range Interpretation Comments NA (test code = 137 mmol/L 135-145 6641420674) K (test code = 5.1 mmol/L 3.5-5.0 H 9888606802) CL (test code = 111 mmol/L 98-108 H 7533280000) CO2 TOTAL (test code = 19 mmol/L 23-31 L 2450590572) AGAP (test code = 2-16 3415773637) BUN (test code = 86 mg/dL 7-23 H 5368454857) GLUCOSE (test code = 144 mg/dL 70-110 H 4762070186) CREATININE (test code = 1.30 mg/dL 0.60-1.25 H 9536379773) CALCIUM (test code = 7.9 mg/dL 8.6-10.6 L 5906960104) eGFR Calculation mL/min/1.73m2 (Non-) (test code = 3283716401) eGFR Calculation mL/min/1.73m2 () (test code = 5761605463) LUZMARIA (test code = LUZMARIA) Association of Glomerular Filtration Rate (GFR) and Staging of Kidney Disease* + --+ --+ ------+| GFR (mL/min/1.73 m2) ?| With Kidney Damage ?| ?Without Kidney Damage+ --------+ --------+ +| ?>90 ?| ?Stage one ?| ? Normal ?+ ---+ ---+ -------+| ?60-89 ?| ?Stage two ?| ? Decreased GFR ? + --+ --+ ------+| ?30-59 ?| ?Stage three ?| ? Stage three ? + --+ --+ ------+| ?15-29 ?| ?Stage four ? | ? Stage four ?+ ---+ ---+ -------+| ?<15 (or dialysis) ? ?| ?Stage five ? | ? Stage five ?+ ---+ ---+ -------+ *Each stage assumes the associated GFR level has been in effect for at least three months. ?Stages 1 to 5, with or without kidney disease, indicate chronic kidney disease. Notes: Determination of stages one and two (with eGFR >59mL/min/1.73 m2) requires estimation of kidney damage for at least three months as defined by structural or functional abnormalities of the kidney, manifested by either:Pathological abnormalities or Markers of kidney damage (including abnormalities in the composition of the blood or urine or abnormalities in imaging tests). Lab Interpretation Abnormal (test code = 58871-3) [facility] CenterPhosphorus [id number] 10:42:11 Test Item Value Reference Range Interpretation Comments PHOSPHORUS (test code = 2099305097) 4.0 mg/dL 2.5-5.0 Lab Interpretation (test code = Normal 07294-7) [facility] CenterMagnesium [id number] 10:42:10 Test Item Value Reference Range Interpretation Comments MAGNESIUM (test code = 2552335948) 2.0 mg/dL 1.7-2.4 Lab Interpretation (test code = Normal 70607-2) [facility] CenterHepatic Function Panel (ALB, T.PRO, BILI T, BU/BC, ALT, AST, ALK, PHOS)2021-02-01 10:42:10 Test Item Value Reference Range Interpretation Comments TOTAL BILI (test code = 0122341216) 0.2 mg/dL 0.1-1.1 BILI UNCON (test code = 1009215574) 0.3 mg/dL 0.1-1.1 BILI CONJ (test code = 1691417388) 0.0 mg/dL 0.0-0.3 T PROTEIN (test code = 5126185988) 5.1 g/dL 6.3-8.2 L ALBUMIN (test code = 5738421485) 2.7 g/dL 3.5-5.0 L ALK PHOS (test code = 6749322477) 69 U/L 34-122 ALTv (test code = 1742-6) 34 U/L 5-50 AST(SGOT) (test code = 1628372869) 59 U/L 13-40 H Lab Interpretation (test code = Abnormal 59126-5) [facility] CenteraPTT2021-03-24 10:33:09 Test Item Value Reference Range Interpretation Comments APTT Patient (test code See_Comment L [Au tomated message] = 3173-2) The system [employer] generated this result transmitted ref erence range: 26 - 36 Seconds. The reference range was not used to int erpret this result as normal/abnormal . Lab Interpretation (test Abnormal code = 78825-1) [facility] CenterProthrombin Time / [id number] 10:33:09 Test Item Value Reference Range Interpretation Comments PROTIME PATIENT (test See_Comment [Auto mated message] code = 5964-2) The system wh ich generated this result transmitted ref erence range: 10.1 - 1 2.6 Seconds. The re ference range was not u sed to interpret this result as normal/abnor mal. INR (test code = 6301-6) Nor mal INR <1.1; Warfarin Therap eutic range 2.0 to 3. 0 or 2.5 to 3.5, dep ending upon the indica tions. Lab Interpretation (test Normal code = 45128-1) [facility] CenterCBC with [id number] 10:15:28 Test Item Value Reference Range Interpretation Comments WBC (test code = See_Comment [Automated 0390-2) message] The sy stem which generated this result transmitted reference range : 4.20 - 10.70 10*3/?L. The reference range was not used to interpret this result as normal/abnormal . RBC (test code = See_Comment L [Automated 789-8) message] The sy stem which generated this result transmitted reference range : 4.26 - 5.52 10*6/?L. The reference range was not used to interpret this result as normal/abnormal . HGB (test code = 6.5 g/dL 12.2-16.4 L 718-7) HCT (test code = 20.3 % 38.4-49.3 L 4544-3) MCV (test code = 84.2 fL 81.7-95.6 787-2) MCH (test code = 27.0 pg 26.1-32.7 785-6) MCHC (test code = 32.0 g/dL 31.2-35.0 786-4) RDW-SD (test code = 44.6 fL 38.5-51.6 14342-7) RDW-CV (test code = 14.4 % 12.1-15.4 788-0) PLT (test code = See_Comment [Automated 777-3) message] The sy stem which generated this result transmitted reference range : 150 - 328 10*3/ ?L. The reference r brianne was not used to interpret this result as normal/abnormal . MPV (test code = 11.0 fL 9.8-13.0 77600-9) NRBC/100 WBC (test See_Comment [Automat ed code = 5022814599) message] The system which generated this result transmitted reference range : 0.0 - 10.0 /100 WBCs. The refer ence range was not u sed to interpret th is result as normal/abnormal . NRBC x10^3 (test code <0.01 See_Comment [Auto mated = 8255639077) message] The s ystem which generated this result transmitted reference range : 10*3/?L. The reference range was not used to interpret this result as normal/abnormal . GRAN MAT (NEUT) % 77.9 % (test code = 770-8) IMM GRAN % (test code 0.80 % = 5378549181) LYMPH % (test code = 17.0 % 736-9) MONO % (test code = 3.9 % 5905-5) EOS % (test code = 0.1 % 713-8) BASO % (test code = 0.3 % 706-2) GRAN MAT x10^3(ANC) 6.94 10*3/uL 1.99-6.95 (test code = 7922711522) IMM GRAN x10^3 (test 0.07 10*3/uL 0.00-0.06 H code = 0123244471) LYMPH x10^3 (test code 1.52 10*3/uL 1.09-3.23 = 731-0) MONO x10^3 (test code 0.35 10*3/uL 0.36-1.02 L = 742-7) EOS x10^3 (test code = <0.03 0.06-0.53 L 711-2) BASO x10^3 (test code 0.03 10*3/uL 0.01-0.09 = 704-7) Lab Interpretation Abnormal (test code = 39241-4) [facility] CenterLAB ONLY COVID [id number] 03:32:00COVID DMT InterpretationInterpretation/Recommendations: Molecular NAAT Tests for Active Infection with the SARS-CoV-2 Virus: This patient has tested negative on two occasions for the SARS-CoV-2 virus that causes COVID-19 illness. This most likely indicates that the patient does not have an active infection with the SARS-CoV-2 virus, especially if these tests coincide with the patient's current presentation. However, infection is not completely ruled out as the false negative rate for molecular NAAT testing using a nasopharyngeal sample can be up to 30%, mostly dependent on the timing of sample collection in relation to illness onset and any deficiencies in sampling techniques. If the patient has sy mptoms concerning for COVID-19 illness, a repeat NAAT test (PCR, Rapid ID Now, etc.) should be performed, at which time the SARS-CoV-2 virus - if present - may have reached a detectable viral load (usually peaking by the end of the first week of symptoms). Tests for IgM and/or IgG Antibodies to SARS-CoV-2 Virus: Testing for IgM and IgG antibodies 1-3 weeks after illness onset will indicate whether the patient has produced antibodies to the virus. At this time, it is not known if the production of antibodies - specifically IgG antibodies - indicates whether the patient is immune to future infections with the SARS-CoV-2 virus. Interpretation Result Comments:These interpretation comments are based upon all COVID-19 testing the patient has had at [facility], including molecular NAAT testing (more commonly known as PCR testing and Rapid ID Now testing) and antibody testing. It does not take into account any testing that a patient has had outside of the [facility] medical record. [facility] LABORATORY SERVICESCOVID [id number] NAAT (nounits) ? ? Date ? Value ? 05/12/2020 ? Not Detected ? SARS-CoV-2 Rapid ID NOW (no units) ? ? Date ? Value ? 12/09/2020 ? Not Detected ? [facility] LABORAT[facility] SERVICESLas [facility] CenterVERIFYNO ASPIRIN [id number] 16:47:00 Test Item Value Reference Range Interpretation Comments VerifyNow Aspirin See Comment ARU Test (test code = 6689533706) LUZMARIA (test code = < 550 ARU - Evidence of LUZMARIA) platelet dysfunction due to aspirin>= 550 ARU - No evidence of aspirin-induced platelet dysfunction The performance of VerifyNow Aspirin test on patients with acquired non-drug induced platelet abnormalities is not known. Patients who have been treated with Glycoprotein IIb/IIIa inhibitor drugs should not be tested until platelet function has recovered. The recovery period after drug administration is discontinued is approximately 14 days for abciximab (ReoPro) and up to 48 hours for eptifibatide (Integrilin) and tirofiban (Aggrastat). The time to recovery of platelet functions varies among individuals and is longer for patients with renal dysfunction. Patient with low platelet counts may not give consistent results. Results should be interpreted in conjunction with other laboratory and clinical data available to the clinician. [facility] CenterCOVID-[facility] (ID NOW RAPID TESTING)2020-12-09 16:44:00 Test Item Value Reference Range Interpretation Comments SARS-CoV-2 Rapid ID NOW Not Detected Not Detected (test code = 51991-8) LUZMARIA (test code = LUZMARIA) ID NOW COVID-19 Assay is an isothermal nucleic acid amplification test intended for the qualitative detection of nucleic acid from SARS-CoV-2 viral RNA in nasopharyngeal (AUTOMATIC PINSETTER MECHANIC) specimens. It is used under Emergency Use Authorization (EUA) by FDA. The limit of detection (LOD) of the assay is 125 Genome Equivalents/mL. A positive result is indicative of the presence of SARS-CoV-2 RNA. ?Clinical correlation with patient history and other diagnostic information is necessary to determine patient infection status. A negative (Not Detected) result does not preclude SARS-CoV-2 infection. In patients with clinical symptoms and other tests that are consistent with SARS-CoV-2 infection, negative results should be treated as presumptive negative and a new specimen should be tested with alternative PCR molecular test. Invalid: Please collect a new specimen for repeat patient testing if clinically indicated. Lab Interpretation Normal (test code = 12269-6) [facility] PRUTEST (P2Y12)2020-12-09 16:36:00 Test Item Value Reference Range Interpretation Comments VerifyNow PRUTest See_Comment [Automate d (P2Y12) (test code message] The = [id number]) system which generated this result transmitted reference range : 182 - 335 PRU. The reference range was not used to interpret this result as normal/abnormal . LUZMARIA (test code = Off-drug PRU LUZMARIA) reference range is 180 - 376. Values less than 180 PRU suggest evidence of a P2Y12 inhibitor effect, which may be explained by P2Y12 receptor medications. ? ? P2Y12 Reaction Units (PRU) indicates the amount of ADP-mediated aggregation specific to the platelet P2Y12 receptor; a LOW PRU indicates a higher response to anti-platelet medication while a HIGH PRU indicates lower platelet inhibitive effect. Patients who have been treated with Glycoprotein IIb/IIIa inhibitor drugs should not be tested with the PRUtest until platelet function has recovered. The recovery period after drug administration is discontinued is approximately 14 days to abciximab (ReoPro) and up to 48 hours for eptifibatide (Integrilin) and tirofiban (Aggrastat). The time to recovery of platelet functions varies among individuals and is not affected by renal dysfunction. Patient with low platelet counts may not give consistent results. Results should be interpreted in conjunction with other laboratory and clinical data available to the clinician. Lab Interpretation Normal (test code = 74811-0) [facility] METABOLIC PANEL (NA, K, CL, CO2, GLUCOSE, BUN, CREATININE, CA)2020-12-09 16:31:00 Test Item Value Reference Range Interpretation Comments NA (test code = 138 mmol/L 135-145 2181201757) K (test code = 5.0 mmol/L 3.5-5 7741616159) CL (test code = 104 mmol/L 98-108 1590496786) CO2 TOTAL (test code = 26 mmol/L 23-31 3644765809) AGAP (test code = 2-16 9526326815) BUN (test code = 19 mg/dL 7-23 2117186150) GLUCOSE (test code = 112 mg/dL 70-110 H 0499505704) CREATININE (test code = 0.70 mg/dL 0.6-1.25 0280200420) CALCIUM (test code = 7.2 mg/dL 8.6-10.6 L 5410440566) eGFR Calculation mL/min/1.73m2 (Non-) (test code = 0632994970) eGFR Calculation mL/min/1.73m2 () (test code = 4784685197) LUZMARIA (test code = LUZMARIA) Association of Glomerular Filtration Rate (GFR) and Staging of Kidney Disease* + --+ --+ ------+| GFR (mL/min/1.73 m2) ?| With Kidney Damage ?| ?Without Kidney Damage+ --------+ --------+ +| ?>90 ?| ?Stage one ?| ? Normal ?+ ---+ ---+ -------+| ?60-89 ?| ?Stage two ?| ? Decreased GFR ? + --+ --+ ------+| ?30-59 ?| ?Stage three ?| ? Stage three ? + --+ --+ ------+| ?15-29 ?| ?Stage four ? | ? Stage four ?+ ---+ ---+ -------+| ?<15 (or dialysis) ? ?| ?Stage five ? | ? Stage five ?+ ---+ ---+ -------+ *Each stage assumes the associated GFR level has been in effect for at least three months. ?Stages 1 to 5, with or without kidney disease, indicate chronic kidney disease. Notes: Determination of stages one and two (with eGFR >59mL/min/1.73 m2) requires estimation of kidney damage for at least three months as defined by structural or functional abnormalities of the kidney, manifested by either:Pathological abnormalities or Markers of kidney damage (including abnormalities in the composition of the blood or urine or abnormalities in imaging tests). Lab Interpretation Abnormal (test code = 38027-3) [facility] CenterPROTHROMBIN TIME / [id number] 16:23:00 Test Item Value Reference Range Interpretation Comments PROTIME PATIENT (test See_Comment [Auto mated message] code = 5964-2) The system [employer] generated this result transmitted ref erence range: 10.1 - 1 2.6 Seconds. The re ference range was not u sed to interpret this result as normal/abnor mal. INR (test code = 6301-6) Nor mal INR <1.1; Warfarin Therap eutic range 2.0 to 3. 0 or 2.5 to 3.5, dep ending upon the indica tions. Lab Interpretation (test Normal code = 44682-3) [facility] WITH [id number] 16:11:00 Test Item Value Reference Range Interpretation Comments WBC (test code = See_Comment [Automated 6690-2) message] The sy stem which generated this result transmitted reference range : 4.20 - 10.70 10*3/?L. The reference range was not used to interpret this result as normal/abnormal . RBC (test code = See_Comment L [Automated 789-8) message] The sy stem which generated this result transmitted reference range : 4.26 - 5.52 10*6/?L. The reference range was not used to interpret this result as normal/abnormal . HGB (test code = 10.9 g/dL 12.2-16.4 L 718-7) HCT (test code = 34.4 % 38.4-49.3 L 4544-3) MCV (test code = 84.7 fL 81.7-95.6 787-2) MCH (test code = 26.8 pg 26.1-32.7 785-6) MCHC (test code = 31.7 g/dL 31.2-35 786-4) RDW-SD (test code = 42.1 fL 38.5-51.6 44268-3) RDW-CV (test code = 13.7 % 12.1-15.4 788-0) PLT (test code = See_Comment [Automated 777-3) message] The sy stem which generated this result transmitted reference range : 150 - 328 10*3/ ?L. The reference r brianne was not used to interpret this result as normal/abnormal . MPV (test code = 10.5 fL 9.8-13 92113-1) NRBC/100 WBC (test See_Comment [Automat ed code = 7506313424) message] The system which generated this result transmitted reference range : 0.0 - 10.0 /100 WBCs. The refer ence range was not u sed to interpret th is result as normal/abnormal . NRBC x10^3 (test code <0.01 See_Comment [Auto mated = [id number]) message] The s [employer] which generated this result transmitted reference range : 10*3/?L. The reference range was not used to interpret this result as normal/abnormal . GRAN MAT (NEUT) % 67.6 % (test code = 770-8) IMM GRAN % (test code 0.60 % = 4100765380) LYMPH % (test code = 21.7 % 736-9) MONO % (test code = 6.9 % 5905-5) EOS % (test code = 2.4 % 713-8) BASO % (test code = 0.8 % 706-2) GRAN MAT x10^3(ANC) 4.49 10*3/uL 1.99-6.95 (test code = 6023856632) IMM GRAN x10^3 (test 0.04 10*3/uL 0-0.06 code = 0321556101) LYMPH x10^3 (test code 1.44 10*3/uL 1.09-3.23 = 731-0) MONO x10^3 (test code 0.46 10*3/uL 0.36-1.02 = 742-7) EOS x10^3 (test code = 0.16 10*3/uL 0.06-0.53 711-2) BASO x10^3 (test code 0.05 10*3/uL 0.01-0.09 = 704-7) Lab Interpretation Abnormal (test code = 29997-2) [facility] CenterXR [facility] 3 VW [id number] 18:36:21 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 Severe glenohumeral joint osteoarthrosis. Severe knee osteoarthrosis. No acute bony abnormality is present. EXAM: XR SHOULDER <2 VW LEFT, EXAM: XR KNEE 3 VW LEFT HISTORY: left shoulder pain COMPARISON: None FINDINGS: Imaging of theleft shoulder demonstrates chronic fragmentation at thelevel of the distal clavicle with elevation of the clavicle byapproximately one shaft width diameter relative to the acromion. Severejoint space narrowing, subchondral sclerosis and marginal osteophyteformation involve the glenohumeral joint. Calcified plaque outlines theaortic arch. Images of the left knee demonstrate severe medial compartment whit int spaceloss. Tricompartmental subchondral sclerosis with marginal osteophyteformation and degenerative tibial spine hypertrophy is present. No acutebony abnormality is present. No effusion is seen. Vascular calcificationsare present. [facility], Radiant Results Inft User - 09/02/2020 1:37 PM CDTEXAM:XR SHOULDER <2 VW LEFT,EXAM:XR KNEE 3 VW LEFTHISTORY:left shoulder pain COMPARISON:NoneFINDINGS: Imaging of the left shoulder demonstrates chronic fragmentation at thelevel of the distal clavicle with elevation of the clavicle byapproximately one shaft width diameter relative to the acromion. Severejoint space narrowing, subchondral sclerosis and marginal osteophyteformation involve the glenohumeral joint. Calcified plaque outlines theaortic arch.Images of the left knee demonstrate severe medial compartment joint spaceloss. Tricompartmental subchondral sclerosis with marginal osteophyteformation and d egenerative tibial spine hypertrophy is present. No acutebony abnormality is present. No effusion isseen. 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 Severe glenohumeral joint osteoarth rosis. Severe knee osteoarthrosis. No acute bony abnormality is present. EXAM: XR SHOULDER <2 VW LEFT, EXAM: XR KNEE 3 VW LEFT HISTORY: left shoulder pain COMPARISON: None FINDINGS: Imaging of theleft shoulder demonstrates chronic fragmentation at thelevel of the distal clavicle with elevation of the clavicle byapproximately one shaft width diameter relative to the acromion. Severejoint space narrowing, subchondral sclerosis and marginal osteophyteformation involve the glenohumeral joint. Calcified plaque outlines theaortic arch. Images of the left knee demonstrate severe medial compartment joint spaceloss. Tricompartmental subchondral sclerosis with marginal osteophyteformation and degenerative tibial spine hypertrophy is present. No acutebony abnormality is present. No effusion is seen. Vascular calcificationsare present. [facility], Radiant Results Inft User - 09/02/2020 1:37 PM CDTEXAM:XR SHOULDER <2 VW LEFT,EXAM:XR KNEE 3 VW LEFTHISTORY:left shoulder pain COMPARISON:NoneFINDINGS: Imaging of the left shoulder demonstrates chronic fragmentation at thelevel of the distal clavicle with elevation of the clavicle byapproximately one shaft width diameter relative to the acromion. Severejoint space narrowing, subchondral sclerosis and marginal osteophyteformation involve the glenohumeral joint. Calcified plaque outlines theaortic arch.Images of the left knee demonstrate severe medial compartment joint spaceloss. Tricompartmental subchondral sclerosis with marginal osteophyteformation and degenerative tibial spine hypertrophy is present. No acutebony abnormality is present. No effusion isseen. Vascular calcificationsare present.IMPRESSION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Severe glenohumeral joint osteoarthrosis.Severe knee osteoarthrosis.No acute bony abnormality is present. [facility] CenterCT ANGIOGRAM [id number] 21:10:45 No acute vascular findings in the head and neck. Specifically, no largevessel occlusion is seen. Moderate atherosclerotic disease identified in the intracranial ICAsbilaterally. This is borderline forflow limitation in the right proximalcavernous and left supraclinoid ICA region. Mild scattered ather osclerotic disease is seen in the remaining head andneck vessels.HISTORY:Stroke, follow up TECHNIQUE: CTA of the head and neck was performed with IV contrast. MIPreconstructions were performed. COMPARISON: MRI 06/14/2020. ? FINDINGS: CTA NECK: The left vertebral artery originates from the aortic arch directly. Thevessels originating from the arch are patent. There is normal contrast enhancement of the common carotid arteries. Mildatherosclerotic disease is seen in the left carotid bifurcation withoutsignificant stenosis. Tortuosity in the right distal cervical ICA is incidentally noted. Thevessel is otherwise patent. The right vertebral artery is smaller in size and appears to be duplicated.The vertebral arteries are otherwise patent. The vertebral arteriesdemonstrate late entry into the vascularforamen. CTA HEAD: Moderate diffuse atherosclerotic disease is seen in the cavernous andsupraclinoidICAs bilaterally. The stenosis of the vessel is mostconspicuous in the left paraclinoid ICA and the right proximal cavernousICA. At these points the stenosis is close to 50% and borderline for flowlimitation. The DIOMEDES and MCA branches are within normal limits. No sizable posterior communicating arteries are seen. Venous contaminationlimits evaluation for subtle vascular findings. The basilar artery iswithin normal limits. The PICA origins are seenbilaterally. [facility], Radiant Results Inft User - 06/14/2020 4:11 PM CDTHISTORY:Stroke, follow up TECHNIQUE: CTA of the head and neck was performed with IV contrast. MIPreconstructions were performed. COMPARISON: MRI 06/14/2020. FINDINGS:CTA NECK:The left vertebral artery originates from the aortic arch directly. Thevessels originating from the arch are patent.There is normal contrast enhancement of the common carotid arteries. Mildatherosclerotic disease is seen in the left carotid bifurcation withoutsignificant stenosis.Tortuosity in the right distal cervical ICA is incidentally noted. Thevessel is otherwise patent.The right vertebral artery is smallerin size and appears to be duplicated.The vertebral arteries are otherwise patent. The vertebral arteriesdemonstrate late entry into the vascular foramen.CTA HEAD:Moderate diffuse atherosclerotic disease is seen in the cavernous andsupraclinoid ICAs bilaterally. The stenosis of the vessel is mostconspicuous in the left paraclinoid ICA and the right proximal cavernousICA. At these points the stenosis is close to 50% and borderline for flowlimitation.The DIOMEDES and MCA branches are within normal limits.Nosizable posterior communicating arteries are seen. Venous contaminationlimits evaluation for subtle vascular findings.The basilar artery is within normal limits. The PICA origins are seenbilaterally.IMPRESSIONNo acute vascular findings in the head and neck. Specifically, no largevessel occlusion is seen.Moderate atherosclerotic disease identified in the intracranial ICAsbilaterally. This is borderline for flow limitation in the right proximalcavernous and left supraclinoid ICA region.Mild scattered atherosclerotic disease is seen in the remaining head andneck vessels.[facility] CenterCT ANGIOGRAM [id number] 21:10:45 No acute vascular findings in the head and neck. Specifically, no largevessel occlusion is seen. Moderate atherosclerotic disease identified in the intracranial ICAsbilaterally. This is borderline forflow limitation in the right proximalcavernous and left supraclinoid ICA region. Mild scattered atherosclerotic disease is seen in the remaining head andneck vessels.HISTORY:Stroke, follow up TECHNIQUE: CTA of the head and neck was performed with IV contrast. MIPreconstructions were performed. COMPARISON: MRI 06/14/2020. ? FINDINGS: CTA NECK: The left vertebral artery originates from the aortic arch directly. Thevessels originating from the arch are patent. There is normal contrast enhancement of the common carotid arteries. Mildatherosclerotic disease is seen in the left carotid bifurcation withoutsignificant stenosis. Tortuosity in the right distal cervical ICA is incidentally noted. Thevessel is otherwise patent. The right vertebral artery is smaller in size and appears to be duplicated.The vertebral arteries are otherwise patent. The vertebral arteriesdemonstrate late entry into the vascularforamen. CTA HEAD: Moderate diffuse atherosclerotic disease is seen in the cavernous andsupraclinoidICAs bilaterally. The stenosis of the vessel is mostconspicuous in the left paraclinoid ICA and the right proximal cavernousICA. At these points the stenosis is close to 50% and borderline for flowlimitation. The DIOMEDES and MCA branches are within normal limits. No sizable posterior communicating arteries are seen. Venous contaminationlimits evaluation for subtle vascular findings. The basilar artery iswithin normal limits. The PICA origins are seenbilaterally. [facility], Radiant Results Inft User - 06/14/2020 4:11 PM CDTHISTORY:Stroke, follow up TECHNIQUE: CTA of the head and neck was performed with IV contrast. MIPreconstructions were performed. COMPARISON: MRI 06/14/2020. FINDINGS:CTA NECK:The left vertebral artery originates from the aortic arch directly. Thevessels originating from the arch are patent.There is normal contrast enhancement of the common carotid arteries. Mildatherosclerotic disease is seen in the left carotid bifurcation withoutsignificant stenosis.Tortuosity in the right distal cervical ICA is incidentally noted. Thevessel is otherwise patent.The right vertebral artery is smallerin size and appears to be duplicated.The vertebral arteries are otherwise patent. The vertebral arter iesdemonstrate late entry into the vascular foramen.CTA HEAD:Moderate diffuse atherosclerotic disease is seen in the cavernous andsupraclinoid ICAs bilaterally. The stenosis of the vessel is mostconspicuous in the left paraclinoid ICA and the right proximal cavernousICA. At these points the stenosis is close to 50% and borderline for flowlimitation.The DIOMEDES and MCA branches are within normal limits.Nosizable posterior communicating arteries are seen. Venous contaminationlimits evaluation for subtle vascular findings.The basilar artery is within normal limits. The PICA origins are seenbilaterally.IMP RESSIONNo acute vascular findings in the head and neck. Specifically, no largevessel occlusion is seen.Moderate atherosclerotic disease identified in the intracranial ICAsbilaterally. This is borderline for flow limitation in the right proximalcavernous and left supraclinoid ICA region.Mild scattered a therosclerotic disease is seen in the remaining head andneck vessels.[facility] BRAIN WO [id number] 19:17:15 No acute intracranial abnormality. Moderate global cerebral volume loss. Multifocal chronic infarcts andlacunar infarcts, as above. EXAM: MR BRAIN WO CONTRAST HISTORY: Stroke, follow up TECHNIQUE: MRI of the brain was performed on 1.5 Carolyne without intravenouscontrast. COMPARISON: None. FINDINGS: The ventricles and sulci are prominent suggestive of moderate degree ofglobal cerebral volume loss. No hydrocephalus. The basal cisterns arewithin normal limits. There is no diffusion restriction suggest acute/subacute infarction. Nointracranial hemorrhage, extra-axial collection, mass effect, midlineshift, or herniation. No abnormal signal Blooming on gradient sequences. Multifocal chronic infarcts are noted in the bilateral superior frontallobes, bilateral posterior parietal lobes and bilateral occipital lobes.Remote lacunar infarcts are noted in the arthur and bilateral basal ganglia. The T2 signalvoid of intracranial vessels is within normal limits. No abnormal signal in the paranasal sinuses or mastoid air cells. [facility], Radiant Results Inft User - 06/14/2020 2:18 PM CDTEXAM: MR BRAIN WO CONTRASTHISTORY: Stroke, follow up TECHNIQUE: MRI of the brain was performed on 1.5 Carolyne without intravenouscontrast.COMPARISON: None.FINDINGS: The ventricles and sulci are prominent suggestive of moderate degree ofglobal cerebral volume loss. No hydrocephalus. The basal cisterns arewithin normal limits.There is no diffusion restriction suggest acute/subacute infarction. Nointracranial hemorrhage, extra-axial collection, mass effect, midlineshift, or herniation. No abnormal signal Blooming on gradient sequences.Multifocal chronic infarcts are noted in the bilateral superior frontallobes, bilateral posterior parietal lobes and bilateral occipital lobes.Remote lacunar infarcts are noted in the arthur and bilateral basal ganglia.The T2 signal void of intracranial vessels is within normal limits. No abnormal signal in the paranasal sinuses or mastoid air cells.IMPRESSIONNo acute intracranial abnormality.Moderate global cerebral volume loss. Multifocal chronic infarcts andlacunar infarcts, as above. [facility] ARTERIAL BLOOD GAS Pre-Liver Transplant [id number] 18:46:00 Test Item Value Reference Range Interpretation Comments PH (test code = 2) 7.35-7.45 PCO2 (test code = See_Comment [Automat ed message] [id number]) The system [employer] generated this result transmitted ref erence range: 35 - 45 mmHg. The reference r brianne was not used to interpret this result as normal/abnor mal. PO2 (test code = See_Comment [Automated message] [id number]) The system [employer] generated this result transmitted ref erence range: 80 - 100 mmHg. The reference r brianne was not used to interpret this result as normal/abnor mal. HCO3 (test code = See_Comment [Automate d message] [id number]) The system [employer] generated this result transmitted ref erence range: 22 - 26 mEq/L. The reference r brianne was not used to interpret this result as normal/abnor mal. BE (test code = See_Comment [Automated message] [id number]) The system [employer] generated this result transmitted ref erence range: -3.0 - 3 .0 mEq/L. The refe rence range was not u sed to interpret this result as normal/abnor mal. Lab Interpretation (test Normal code = 42008-4) [facility], HIKQJF4462-87-33 17:29:00 Test Item Value Reference Range Interpretation Comments AMMONIA (test code = 5828176502) <9 9-33 L Lab Interpretation (test code = Abnormal 22064-6) [facility], ZPVAPV9226-29-60 17:29:00 Test Item Value Reference Range Interpretation Comments AMMONIA (test code = 0191583496) <9 9-33 L Lab Interpretation (test code = Abnormal 44991-7) [facility]87[facility]47 08:36:002.3[facility] NTUJT9150-18-49 08:36:003.8[facility]annCHEM QTHOJ0471-42-36 08:36:71520Jmlvgxtr HermannCHEM CLQMB3066-86-65 08:36:003.7[facility]annCHEM SCFTE6366-77-40 08:36:29147Fsptydsm HermannCHEM IEHTJ2574-28-47 08:36:000.65 [facility]annCHE[facility] LNZHK8668-62-74 08:36:46365Wobknxaa HermannCHEM PANEL 2018-07-08 08:36:008.1[facility]annCHEM HPIWD7974-07-99 08:36:0024[facility]annCHEM VSYDN6066-21-82 08:36:0012[facility]annCHEM MFLIY2240-65-83 08:36:78722Rfqjlizw HermannCHEM PIGWJ9568-77-88 08:36:0011.7[facility] RYXXOWPKUQ1429-45-01 08:36:000.1[facility] TobjcxtICWMZLAVZJ5623-15-37 08:36:000.2 [facility] QlaapccVWJUMKQOSE5717-83-91 08:36:000.5[facility]annHEMATOLOGY 2018-07-08 08:36:001.4[facility] LhzoxcxSQRMVCOBGY0286-05-35 08:36:004.3[facility] MhclcssZFTGDVXKIV0793-98-82 08:36:007.7[facility] RlasjjgRVPBVXNUKB1672-72-38 08:36:0021.2[facility] NfsozvvHRJUTVVBAG6519-65-65 08:36:002.4[facility] WGWMQWEYOT6332-72-02 08:36:001.3[facility] OdjxuunNYKECMMRGV9737-69-65 08:36:00 67.4[facility] ScwlyezDIIZBKBAZK7590-22-36 08:36:0041.7[facility]annHEMATOLOGY 2018-07-08 08:36:0091.7[facility] RqcrzuwHHKGHYXTKM2222-69-22 08:36:006.4[facility] AhpvczdJAGAMUKSJI5456-00-87 08:36:0035.6[facility] LhpejsqBUXLPOWOUM2355-78-25 08:36:004.54[facility] RuggebbOKDSPCDAMJ1495-52-79 08:36:0014.8[facility] GRIUELLOQH3605-65-57 08:36:008.1[facility] ZgakmezYEASQWTPZW2439-61-68 08:36:19796 [facility] EzjnierKBCHWCKUPN3443-04-50 08:36:0013.9[facility]annHEMATOLOGY 2018-07-08 08:36:00 Test Item Value Reference Range Interpretation Comments MCH (test code = MCH) 32.6 pg 27.0-31.0 [facility]annPARATHYROID WBERRHI5914-15-14 08:36:001.08[facility] PARATHYROID BWSKJQJ7729-41-67 08:36:001.10[facility]annCHEM DPBFR4923-81-46 08:36:002.3[facility]annCHEM RQZOU1275-83-85 08:36:003.8[facility]annCHEM DOLAI3450-02-62 08:36:52813Cjbayrub HermannCHEM XHLKJ9044-23-08 08:36:003.7 [facility]annCHE[facility] NFRKP4447-16-51 08:36:78510Ktbnilpe HermannCHEM PANEL 2018-07-08 08:36:000.65[facility]annCHEM VUOJV9933-33-93 08:36:88418Hbmqmulg HermannCHEM FBHBR4659-79-06 08:36:008.1[facility]annCHEM VRILA1849-97-98 08:36:0024[facility]annCHEM SELOV1583-05-86 08:36:0012[facility]annCHEM NRLOH7806-91-71 08:36:92295Ohmiyobk HermannCHEM ZLOQI8937-50-18 08:36:0011.7 [facility] VliiowcXCXVPMWALV6599-54-18 08:36:000.1[facility]annHEMATOLOGY 2018-07-08 08:36:000.2[facility] BngnpaiGVEESVMWYQ9232-78-02 08:36:000.5[facility] LfzgkqsNTULSKOXEM3690-03-05 08:36:001.4[facility] WykmqxiXXPMAYJYHX2396-88-81 08:36:004.3[facility] LyrztnpEKOPEPPKGC5282-63-38 08:36:007.7[facility] HJRJXWYYJK6873-96-27 08:36:0021.2[facility] LphvmhzPBIARMWXNO9214-82-74 08:36:00 2.4[facility] DuftneaBBTDITNWWS3064-87-67 08:36:001.3[facility]annHEMATOLOGY 2018-07-08 08:36:0067.4[facility] JtxlmhwXRLRDACFFC0970-14-11 08:36:0041.7[facility] IsewkhvJPKSEMRZAR2942-72-52 08:36:0091.7[facility] PhaxdugDLRCLXLHIU6587-40-12 08:36:006.4[facility] GuydftnFTQYSTZSQI6569-15-56 08:36:0035.6[facility] BFTVBAVJSZ6655-33-45 08:36:004.54[facility] SzlntyzTZUDLMXVJL0529-68-83 08:36:00 14.8[facility] PcnouorXFMVFLKCVI2675-16-50 08:36:008.1[facility] HermannHEMATOLOGY 2018-07-08 08:36:88484Qgusvgpd TmzkmytSTQVEUWZEH9955-55-29 08:36:0013.9[facility] AiowtacZGPPTDACMN4086-56-14 08:36:00 Test Item Value Reference Range Interpretation Comments MCH (test code = MCH) 32.6 pg 27.0-31.0 [facility]annPARATHYROID PGCLSUN0398-22-90 08:36:001.08[facility] PARATHYROID MXOPPOR6832-30-61 08:36:001.10[facility] VnlwbarXFPZCCFMLTMO6880-79-19 05:01:94500Akftwbmh VcmybicUYEJALHXVEVZ9043-71-34 05:01:0097[facility] SOFMUJZYLTRQ0985-10-74 05:01:000.82[facility] AjogewjINETYHMUCLUU1824-46-32 05:01:0022[facility] IymuscgYMNWVNFIEBCH7512-33-12 05:01:008.0[facility] ICCKRBNIGN8700-11-81 05:01:0023.2[facility] NucvowgUNMYMOIGMP9708-03-53 05:01:00 64.9[facility] EwxdbddIVQPUOVSJI6219-52-52 05:01:000.2[facility] HermannHEMATOLOGY 2018-07-07 05:01:000.1[facility] WbjithwBDBQDUSMNY3744-04-24 05:01:001.3[facility] FuqgdobPPRANTDQXB7907-67-30 05:01:004.0[facility] XpfjrpyFTKZTRSJWQ0880-40-11 05:01:008.0[facility] BmhrqowNRTCMMEDGO7480-81-25 05:01:002.6[facility] WETNDNZDUP9277-80-32 05:01:001.4[facility] GjelqplQOXEAQNSCD9417-59-02 05:01:000.5 [facility] PqwdyceXFLEBFVGCK1145-23-64 05:01:54692Jrzxmaur HermannHEMATOLOGY 2018-07-07 05:01:008.3[facility] XbsmenwGYEOYYFMSH0834-51-10 05:01:0014.2[facility] QbdyhxpRUNXVPRAKH5761-06-20 05:01:0093.2[facility] NjezsqoKBTCFCRIPZ2635-52-58 05:01:00 Test Item Value Reference Range Interpretation Comments MCH (test code = MCH) 32.3 pg 27.0-31.0 [facility] UddsrvrRBJELOCWGC4191-26-21 05:01:0014.6[facility] HermannHEMATOLOGY 2018-07-07 05:01:0042.2[facility] FiawllrQQMCAHTXCB1333-66-53 05:01:0034.7[facility] TyjscxlTSCAKZNWCX3914-00-24 05:01:004.53[facility] KuehljnWORZLMNICN6262-66-84 05:01:006.1[facility] LjwxzeyEHESGSAUBS2176-76-36 05:01:00 Test Item Value Reference Range Interpretation Comments PT (test code = PT) 12.3 s 12.0-14.7 [facility] DuzeoxgRLPZIPIFUU2471-84-61 05:01:00 Test Item Value Reference Range Interpretation Comments PTT (test code = PTT) 26.7 s 22.9-35.8 [facility] GrqwztaVAVONQJHQJ4638-21-67 05:01:00 Test Item Value Reference Range Interpretation Comments INR (test code = INR) 0.91 1 0.85-1.17 [facility]jhbMIHYWTKZNP4894-88-83 05:01:003.2[facility]annHEMATOLOGY 2018-07-07 05:01:00 Test Item Value Reference Range Interpretation Comments Coag Index (test code 1.0 1 See_Comment [Auto mated message] The = Coag Index) system which g enerated this result transmit willow reference range : <=3.0. The reference range was not used to interpr et this result as rosalina l/abnormal. [facility] CenterDbpjudhORTILWYHJF4989-63-56 05:01:00 Test Item Value Reference Range Interpretation Comments Max Amp (test code = Max Amp) 55.2 mm 50.0-70.0 [facility]fieldQpewlipFMEUAGJRGH6709-94-00 05:01:006.2[facility]annHE[facility]OLOGY 2018-07-07 05:01:00 Test Item Value Reference Range Interpretation Comments R-time (test code = R-time) 3.8 min 5.0-10.0 [facility] CenterRhgzsatYHSMVYZMBC4330-00-50 05:01:00 Test Item Value Reference Range Interpretation Comments K-time (test code = K-time) 1.7 min 1.0-3.0 [facility]fieldYvzptvuSWKUFQUKNM1605-86-57 05:01:00 Test Item Value Reference Range Interpretation Comments Angle (test code = Angle) 67.9 degrees 53.0-72.0 [facility] CenterWhirosxPLQXIDAFEM8309-65-02 05:01:00See Note (07/07/18 12:01 AM)[facility]annPARATHYROID OONTBHY8952-73-11 05:01:001.06[facility] HermannPARATHYROID HIAXVTP3471-79-42 05:01:001.07[facility]annBLOOD BANK FQBPXQR3191-16-41 05:01:00Negative (07/07/18 12:01 AM)[facility]annCHEM QCHWY2788-68-67 05:01:00 2.6[facility] HermannCHEM AKPTY5657-48-33 05:01:002.2[facility] HermannELECTROLYTES 2018-07-07 05:01:0014.0[facility] MtyijwfEEKJQXRSWXCZ3587-31-77 05:01:0097[facility] NsvbvpmMPSWCMTCJGCF4826-35-57 05:01:004.0[facility] MezwmjnXZSYJYUPBVXH0857-97-59 05:01:80948Xsjolppw LdbezqvJHHGMNPRCMSM7614-87-42 05:01:0017[facility] FAUNCUDOQWXL9946-11-45 05:01:96661Jokfgcbs YdduwjdPCFZDPUMQCSZ7777-59-39 05:01:0097[facility] SspwxxhAXGJNYFYRAJE3531-39-33 05:01:000.82[facility] JWQABIENFQGZ3800-58-78 05:01:0022[facility] DtisvsuXTIURNWZWNCP7178-13-38 05:01:00 8.0[facility] IerrbjgNXSWLVEDHB9347-81-12 05:01:0023.2[facility] HermannHEMATOLOGY 2018-07-07 05:01:0064.9[facility] SxqaqntBVAMZSSVFS2008-01-03 05:01:000.2[facility] PlikfpsTLTAGKLXIF6176-90-51 05:01:000.1[facility] AqozkjtNXHNCMZVEN9953-11-75 05:01:001.3[facility] HoqpplzWKQZOXYYHR3479-64-69 05:01:004.0[facility] EAHASIYFYH4382-39-99 05:01:008.0[facility] WnfddqbYWKNLQIXOR1074-41-21 05:01:002.6 [facility] GddhflxMZIOFEXWUL0641-38-02 05:01:001.4[facility] HermannHEMATOLOGY 2018-07-07 05:01:000.5[facility] UzyspvdWVCJBNFVPM0466-33-15 05:01:82040Cudqrcuz TcnpimePAMDHQNOWZ5048-21-46 05:01:008.3[facility] HsplebyDHGMSWHFXQ7540-04-95 05:01:0014.2[facility] IwhmjfkDCAILDOSZL1502-71-90 05:01:0093.2[facility] NQSVBGNWBH9883-20-72 05:01:00 Test Item Value Reference Range Interpretation Comments MCH (test code = MCH) 32.3 pg 27.0-31.0 [facility] AjpotimFUTJZYIGNE4634-70-78 05:01:0014.6[facility] HermannHEMATOLOGY 2018-07-07 05:01:0042.2[facility] HospitalIoakjcwRORNDTDQAJ7730-63-65 05:01:0034.7[facility]anoHjvfswgAKWDVFHPCB4035-15-64 05:01:004.53MenmriBaylor [facility] & [facility] – PlanoTeirfmzMTFTPJHBLR2997-29-68 05:01:006.1MFormerly [facility] HospitalImfxxwaWBYPKLFKXE8001-97-73 05:01:00 Test Item Value Reference Range Interpretation Comments PT (test code = PT) 12.3 s 12.0-14.7 [facility] CenterDpnfbyvTIAMENLPSP7830-38-69 05:01:00 Test Item Value Reference Range Interpretation Comments PTT (test code = PTT) 26.7 s 22.9-35.8 [facility] CenterIbkpvhnVYHUPQEVZZ0739-14-09 05:01:00 Test Item Value Reference Range Interpretation Comments INR (test code = INR) 0.91 1 0.85-1.17 [facility] CenterSwyxeikGDFTRGMNCE9179-01-39 05:01:003.2M[facility] 2018-07-07 05:01:00 Test Item Value Reference Range Interpretation Comments Coag Index (test code 1.0 1 See_Comment [Auto mated message] The = Coag Index) system which g enerated this result transmit willow reference range : <=3.0. The reference range was not used to interpr et this result as rosalina l/abnormal. [facility] CenterFtwtevlGSVYPWNTVL7981-58-31 05:01:00 Test Item Value Reference Range Interpretation Comments Max Amp (test code = Max Amp) 55.2 mm 50.0-70.0 [facility] CenterNeppvsbXBPVAVOXJM9775-03-58 05:01:006.2M[facility] 2018-07-07 05:01:00 Test Item Value Reference Range Interpretation Comments R-time (test code = R-time) 3.8 min 5.0-10.0 [facility] CenterSzpczebCUGLVKORDA3867-20-21 05:01:00 Test Item Value Reference Range Interpretation Comments K-time (test code = K-time) 1.7 min 1.0-3.0 [facility] CenterItzxypeDRQKTXSDPH0301-19-80 05:01:00 Test Item Value Reference Range Interpretation Comments Angle (test code = Angle) 67.9 degrees 53.0-72.0 [facility] CenterAhuovtmUASGMPPKCU9666-79-28 05:01:00See Note (07/07/18 12:01 AM)[facility]annPARATHYROID LNCJXNF5024-46-47 05:01:001.06[facility] HermannPARATHYROID UHXZNLT8169-88-48 05:01:001.07[facility]annBLOOD BANK MQKOXOI9047-67-50 05:01:00Negative (07/07/18 12:01 AM)[facility]annCHEM QTGMJ1826-41-06 05:01:00 2.6[facility] HermannCHEM OYKKZ9699-10-01 05:01:002.2[facility] HermannELECTROLYTES 2018-07-07 05:01:0014.0[facility] PqlhlfcOXBLPKADLEPP1408-65-59 05:01:0097[facility] UgdxstfVENUCSACFLCU3195-68-35 05:01:004.0[facility] KzblsucCJNYFNMWXVXB2518-35-42 05:01:46719Cxlrpyhi JblptxnYDRYVHQSVVCO6366-85-43 05:01:0017[facility] HermannCHEM BRSZJ1015-94-23 20:40:001.9[facility] HermannCHEM JYFSJ4852-22-96 20:40:001.9 [facility]annCHEM BIOPQ3254-66-59 05:31:002.1[facility] HermannCHEM PANEL 2018-07-06 05:31:002.8[facility] HermannCHEM DOLDA4706-88-27 05:31:00 Test Item Value Reference Range Interpretation Comments A/G Ratio (test code = A/G Ratio) 0.7 1 0.7-1.6 [facility]annCHEM JCIVX3706-63-66 05:31:003.5[facility] HermannCHEM PANEL 2018-07-06 05:31:000.7[facility] HermannCHEM AIUUO3436-64-85 05:31:000.5[facility] HermannCHEM XUUWP5507-80-53 05:31:005.9[facility] HermannCHEM PQZIF4748-74-30 05:31:0095[facility]annCHEM ZTYCY3752-45-80 05:31:002.4[facility] HermannCHEM TNAFD5304-95-91 05:31:75186Zvkgpvvu HermannCHEM IJCSZ5180-62-31 05:31:0087 [facility]annCHEM GQPBX9462-36-38 05:31:000.2[facility] HermannELECTROLYTES 2018-07-06 05:31:0011.7[facility] MeedisqVOTNYCUWLPEH8655-56-20 05:31:04459 [facility] XgmkjobWJWWRQMQHDZP4914-58-22 05:31:0017[facility] HermannELECTROLYTES 2018-07-06 05:31:000.68[facility] KmfpgoeSDJGXMXDPGFK4017-10-91 05:31:003.7 [facility] QmgrtukMSWWAOBKZUSI8123-74-71 05:31:22020Tdzelngd HermannELECTROLYTES 2018-07-06 05:31:0025[facility] PccciqrDTPULBOGYBFX5628-63-31 05:31:82916Gxicoeir MygicmzKMZKSTTSUQHG6711-84-21 05:31:26895Yniiagfc GlgelkvAODYTCTRVEPH5460-48-93 05:31:007.8[facility] PwtvztcIJNESASNIQ7700-26-54 05:31:0013.7[facility] LJPVPUEMGS6686-96-08 05:31:0035.5[facility] EsjunvrVRBJUKTALT8620-49-84 05:31:00 127[facility] QstnkonCWRYDEDEYO8154-62-38 05:31:008.2[facility] HermannHEMATOLOGY 2018-07-06 05:31:006.3[facility] DsmhbdtALGGFOMNDS4134-99-78 05:31:004.61[facility] VquniobJOMPZTTWKY2331-35-61 05:31:0014.9[facility] SuhpberAJPSMAIJJW1468-19-13 05:31:0042.1[facility] MedbutzXCFEJJSSNV4714-56-89 05:31:0091.2[facility] UAAESOBQNY5238-05-19 05:31:00 Test Item Value Reference Range Interpretation Comments MCH (test code = MCH) 32.4 pg 27.0-31.0 [facility] UhxihmfTESJXKIKPJ7142-34-47 05:31:001.2[facility] HermannHEMATOLOGY 2018-07-06 05:31:000.6[facility] ZwubngqPYUZTWCKTA9814-31-54 05:31:000.2[facility] QmlrtnfEQWHDHDWTJ6089-29-20 05:31:000.1[facility] UyblppnCTOKJJEYZK0386-11-14 05:31:002.4[facility] KdqhbvgRNQNSGRBFZ3935-47-97 05:31:004.3[facility] EVSHKUHHSJ4045-12-69 05:31:001.0[facility] DkjnxgrWCYCWVVSIX4936-74-86 05:31:00 68.6[facility] GtutpgmZEWENCVEUW7931-80-81 05:31:0018.8[facility] HermannHEMATOLOGY 2018-07-06 05:31:009.2[facility] HermannPARATHYROID KEYVOSE3050-92-35 05:31:001.10 [facility]annPARATHYROID HJJTJKK6350-10-83 05:31:001.10[facility] HermannCHEM VDMWA0724-40-96 05:31:002.1[facility]annCHEM QQIYJ2808-40-21 05:31:002.8 [facility]annCHEM AIOML8055-91-78 05:31:00 Test Item Value Reference Range Interpretation Comments A/G Ratio (test code = A/G Ratio) 0.7 1 0.7-1.6 [facility]annCHEM YJECJ1496-92-62 05:31:003.5[facility]annCHEM PANEL 2018-07-06 05:31:000.7[facility] HermannCHEM YDSJU8372-04-73 05:31:000.5[facility]annCHEM DIGWW4176-49-90 05:31:005.9[facility]annCHEM KJCWJ7907-84-01 05:31:0095[facility]annCHEM BCJHS1280-88-99 05:31:002.4[facility]annCHEM QBWUJ7788-51-00 05:31:81152Aqwsnsqs HermannCHEM TZBMD6996-45-62 05:31:0087 [facility]annCHEM KVWKC0498-49-36 05:31:000.2[facility] HermannELECTROLYTES 2018-07-06 05:31:0011.7[facility] GxfgdswOUJXHMQKLURD3395-89-53 05:31:22622 [facility] NdjkffhKCYAEAQDENUE8263-30-83 05:31:0017[facility] HermannELECTROLYTES 2018-07-06 05:31:000.68[facility] DjystskKOHOFDOYVMNC9739-45-33 05:31:003.7 [facility] PlpcfkqXRGYGTJDIEWM1136-48-73 05:31:81614Agadpvjt HermannELECTROLYTES 2018-07-06 05:31:0025[facility] ZcopduvSKKAXOPTZJUQ2604-84-93 05:31:69333Udjhfuyb LdhkieiEUTYVRVHHCJI4256-31-11 05:31:52475Sgvxwzye EofhupqMMZWQOLZYJZK9458-61-07 05:31:007.8[facility] OhwixrbWCMBTXNUXR0919-90-91 05:31:0013.7[facility] NCHOKMJBFP9487-06-27 05:31:0035.5[facility] GzqneizIODBKVCCYC9833-88-35 05:31:00 127[facility] GrsajpqXOJWYACRJI2409-80-21 05:31:008.2[facility] HermannHEMATOLOGY 2018-07-06 05:31:006.3[facility] FdiptgcDDEXVHSKSK4004-16-66 05:31:004.61[facility] TcgmfakXLYPQCEPZX3210-65-85 05:31:0014.9[facility] RgvxpwiDWQYDEXPDT9510-40-34 05:31:0042.1[facility] GdshwblEXJIWOWFFI7120-78-46 05:31:0091.2[facility] SUUQKOYAJN7871-43-90 05:31:00 Test Item Value Reference Range Interpretation Comments MCH (test code = MCH) 32.4 pg 27.0-31.0 [facility] WjnauijWALXMOLSXN2015-50-31 05:31:001.2[facility] HermannHEMATOLOGY 2018-07-06 05:31:000.6[facility] OwrsxxlPSRCYIYYUL8431-89-37 05:31:000.2[facility] KtwmtnwZUCWNNCGEK9423-52-36 05:31:000.1[facility] OscqmkzDVTATQZGCY3703-96-90 05:31:002.4[facility] IresrddDSATJUGIBM8432-22-72 05:31:004.3[facility] TOJEHWJWDD5984-82-98 05:31:001.0[facility] GrpbvwhUFXRXPLIYS4609-65-91 05:31:00 68.6[facility] LhwzqecRGOHWLTBQB2394-53-69 05:31:0018.8[facility] HermannHEMATOLOGY 2018-07-06 05:31:009.2[facility] HermannPARATHYROID YQRFUDJ4302-62-56 05:31:001.10 [facility]annPARATHYROID DPDWMCG5109-60-10 05:31:001.10[facility] HermannLIPIDS 2018-07-04 20:41:0076[facility] QjlciugVUVHEC6390-50-81 20:41:00 Test Item Value Reference Range Interpretation Comments VLDL (test code = VLDL) 25 1 [facility] SucosjpIJKOPY7172-28-97 20:41:35534Xnffjxno YnlnhiaNQRBFY8691-68-50 20:41:0052[facility] QaolhrhDTRBGR2670-96-52 20:41:85129Kmhiadgf HermannLIPIDS 2018-07-04 20:41:00 Test Item Value Reference Range Interpretation Comments CHD Risk (test code = CHD Risk) 2.94 1 4.00-7.30 [facility]annSPECIAL YTRCKTOZA1395-58-67 20:41:005.0[facility] HermannLIPIDS 2018-07-04 20:41:0076[facility] VvtjnyzBZWBFF5559-23-78 20:41:00 Test Item Value Reference Range Interpretation Comments VLDL (test code = VLDL) 25 1 [facility] VkrxoyuQOAHJH7942-71-94 20:41:03017Slhrpaas XpwurdlQXBJNK7886-38-43 20:41:0052[facility] XhnkmveTPBYKQ5975-43-21 20:41:65096Dozihduo HermannLIPIDS 2018-07-04 20:41:00 Test Item Value Reference Range Interpretation Comments CHD Risk (test code = CHD Risk) 2.94 1 4.00-7.30 [facility]annSPECIAL UWXGJVDAP6821-61-32 20:41:005.0[facility] HermannCHEM ERWOC9317-57-43 20:40:003.8[facility] HermannCHEM HNBSE1720-75-86 20:40:000.9 [facility] HermannCHEM YKQFW0181-91-08 20:40:00 Test Item Value Reference Range Interpretation Comments A/G Ratio (test code = A/G Ratio) 0.7 1 0.7-1.6 [facility] HermannCHEM MRJEN7524-73-17 20:40:07199Vzjwafvf HermannCHEM PANEL 2018-07-04 20:40:006.5[facility] HermannCHEM ZMVEN1787-83-38 20:40:002.7[facility] HermannCHEM XRCFM9437-97-95 20:40:23939Gmrjzsxu HermannCHEM NPJWI8108-85-84 20:40:00 Test Item Value Reference Range Interpretation Comments B/C Ratio (test code = B/C Ratio) 18 05-05 [facility]annCHEM VMAVT2631-04-28 20:40:000.2[facility] HermannCHEM PANEL 2018-07-04 20:40:07689Fvpsgllp HermannCHEM HJTVH7270-84-57 20:40:003.8[facility] HermannCHEM SDMNR1626-49-69 20:40:000.9[facility] HermannCHEM RQHCB1501-18-10 20:40:00 Test Item Value Reference Range Interpretation Comments A/G Ratio (test code = A/G Ratio) 0.7 1 0.7-1.6 [facility]annCHEM VTGNS5067-10-24 20:40:28228Adbftcmt HermannCHEM PANEL 2018-07-04 20:40:006.5[facility] HermannCHEM TKQMG7946-38-16 20:40:002.7[facility] [id number] 20:40:74950Zbfyxfbn HermannCHEM [id number] 20:40:00 Test Item Value Reference Range Interpretation Comments B/C Ratio (test code = B/C Ratio) 18 05-05 [facility] [id number] 20:40:000.2[facility]annCHEM PANEL 2018-07-04 20:40:70178Hszcrvtn [facility]annDRUG [id number] 20:28:00Negative *NA*(07/04/18 3:28 PM)[facility] [id number] 20:28:00Negative *NA*(07/04/18 3:28 PM)[facility] [id number] 20:28:00Negative *NA*(07/04/18 3:28 PM)[facility] [id number] 20:28:00Negative *NA*(07/04/18 3:28 PM)[facility] [id number] 20:28:00Negative *NA*(07/04/18 3:28 PM)[facility] [id number] 20:28:00Negative *NA*(07/04/18 3:28 PM)[facility] [id number] 20:28:00See Note (07/04/18 3:28 PM)[facility] [id number] 20:28:00Negative *NA*(07/04/18 3:28 PM)[facility] [id number] 20:28:00None Seen (07/04/18 3:28 PM)[facility] [id number] 20:28:00None Seen (07/04/18 3:28 PM)[facility] [id number] 20:28:00None Seen (07/04/18 3:28 PM)[facility] [id number] 20:28:00None Seen (07/04/18 3:28 PM)[facility] [id number] 20:28:00Negative *NA*(07/04/18 3:28 PM)[facility] [id number] 20:28:00Negative *NA*(07/04/18 3:28 PM)[facility] [id number] 20:28:00 Test Item Value Reference Range Interpretation Comments UA Spec Grav (test code = UA Spec 1.025 1 Grav) [facility] [id number] 20:28:00Clear (07/04/18 3:28 PM) [facility] [id number] 20:28:001.0[facility] [id number] 20:28:00Negative (07/04/18 3:28 PM)[facility] [id number] 20:28:00 Test Item Value Reference Range Interpretation Comments UA pH (test code = UA pH) 6.0 1 5.0-8.0 [facility] [id number] 20:28:00Negative (07/04/18 3:28 PM) [facility] [id number] 20:28:00Negative (07/04/18 3:28 PM) [facility] [id number] 20:28:00Moderate *ABN*(07/04/18 3:28 PM)[facility] [id number] 20:28:00Yellow *NA*(07/04/18 3:28 PM)[facility] [id number] 20:28:00Negative *NA*(07/04/18 3:28 PM) [facility] [id number] 20:28:00Negative *NA*(07/04/18 3:28 PM) [facility] [id number] 20:28:00Negative *NA*(07/04/18 3:28 PM) [facility] [id number] 20:28:00Negative *NA*(07/04/18 3:28 PM) [facility] [id number] 20:28:00Negative *NA*(07/04/18 3:28 PM) [facility] [id number] 20:28:00Negative *NA*(07/04/18 3:28 PM) [facility] [id number] 20:28:00See Note (07/04/18 3:28 PM)[facility] [id number] 20:28:00Negative *NA*(07/04/18 3:28 PM)[facility] [id number] 20:28:00None Seen (07/04/18 3:28 PM)[facility] [id number] 20:28:00None Seen (07/04/18 3:28 PM)[facility] [id number] 20:28:00None Seen (07/04/18 3:28 PM)[facility] [id number] 20:28:00None Seen (07/04/18 3:28 PM)[facility] [id number] 20:28:00Negative *NA*(07/04/18 3:28 PM)[facility] [id number] 20:28:00Negative *NA*(07/04/18 3:28 PM)[facility] [id number] 20:28:00 Test Item Value Reference Range Interpretation Comments UA Spec Grav (test code = UA Spec 1.025 1 Grav) [facility] [id number] 20:28:00Clear (07/04/18 3:28 PM) [facility] [id number] 20:28:001.0[facility] [id number] 20:28:00Negative (07/04/18 3:28 PM)[facility] [id number] 20:28:00 Test Item Value Reference Range Interpretation Comments UA pH (test code = UA pH) 6.0 1 5.0-8.0 [facility] [id number] 20:28:00Negative (07/04/18 3:28 PM) [facility] [id number] 20:28:00Negative (07/04/18 3:28 PM) [facility] [id number] 20:28:00Moderate *ABN*(07/04/18 3:28 PM)[facility] [id number] 20:28:00Yellow *NA*(07/04/18 3:28 PM)[facility]CHE[facility] [id number] 19:44:000.7[facility]annCHEM PANEL 2018-07-04 19:44:000.7[facility]annCARDIAC [id number] 19:29:00<0.02 [facility] [id number] 19:29:0086[facility]annHEMATOLOGY 2018-07-04 19:29:00 Test Item Value Reference Range Interpretation Comments Tot Cell Ct (test code = Tot Cell Ct) 100 1 [facility] WjqrhttXEZROOFLAJ2336-02-82 19:29:00Normal (07/04/18 2:29 PM)[facility] AmoytdeIXTGOCAUUP7220-79-76 19:29:00Normal (07/04/18 2:29 PM)[facility] [id number] 19:29:000.0[facility] OevimlkRHZWGOKNUO8617-71-35 19:29:000.0 [facility] DcwuifdJZTNCJAPAR4573-37-89 19:29:00 Test Item Value Reference Range Interpretation Comments PTT (test code = PTT) 20.4 s 22.9-35.8 [facility] BlqgtguNUVKWSUUAB3535-75-73 19:29:00 Test Item Value Reference Range Interpretation Comments INR (test code = INR) 0.93 1 0.85-1.17 [facility] QmbxnsqCVZVVYGMKB3219-42-01 19:29:00 Test Item Value Reference Range Interpretation Comments PT (test code = PT) 12.5 s 12.0-14.7 [facility] [id number] 19:29:00<0.02[facility] C[facility]IAC [id number] 19:29:0086[facility] MoechosWBBOJKLXZH6196-24-28 19:29:00 Test Item Value Reference Range Interpretation Comments Tot Cell Ct (test code = Tot Cell Ct) 100 1 [facility] [id number] 19:29:00Normal (07/04/18 2:29 PM)[facility] [id number] 19:29:00Normal (07/04/18 2:29 PM)[facility] Desmet [id number] 19:29:000.0[facility] [id number] 19:29:000.0 [facility] [id number] 19:29:00 Test Item Value Reference Range Interpretation Comments PTT (test code = PTT) 20.4 s 22.9-35.8 [id number] 19:29:00 Test Item Value Reference Range Interpretation Comments INR (test code = INR) 0.93 1 0.85-1.17 [id number] 19:29:00 Test Item Value Reference Range Interpretation Comments PT (test code = PT) 12.5 s 12.0-14.7 [facility] ABD PARCENTESIS W/[id number] 14:43:00ULTRASOUND DIRECTED PARACENTESIS:CLINICAL HISTORY: Ascites. Cirrhosis.Written and [...] with removal of 4 Lof fluid.US ABDOMEN ETOJRIZ-[id number] 14:41:12ULTRASOUND ABDOMEN LIMITED:CLINICAL HISTORY: Ascites. Images were obtained over a quadrants of the abdomen for evaluation forascites volume. There is a moderate to large volume ascites.IMPRESSION:1. Moderate volume ascites.SP ABD PARCENTESIS [id number] 12:25:33Information: AscitesUltrasound guided paracentesisFollowing verbal and written [...] Ultrasound-guided paracentesis as described above.SP ABD PARCENTESIS [id number] 11:52:16Information: CirrhosisShunt paracentesisFollowing verbal and written consent [...] as described above.US DUPLX ART FLOW, ABD/PELV [id number] 11:44:42EXAM: Abdominal Sonography with Hepatic Elastography.TECHNIQUE: Serial multiplanar grayscale imagingwith/without Dopplerinterrogation including color flow imaging and Doppler waveformanalysis. Hepaticelastography measurements were made utilizing [employer] Epiq 7 ultrasound unit (C5-1 multifrequency transducer).HISTORY: [...] 12.0 - 2.64+ Moderate - SevereUS ABDOMEN [id number] 11:19:24EXAM: Abdominal Sonography with Hepatic Elastography.TECHNIQUE: Serial multiplanar grayscale imagingwith/without Dopplerinterrogation including color flow imaging and Doppler waveformanalysis. Hepaticelastography measurements were made utilizing [employer] Epiq 7 ultrasound unit (C5-1 multifrequency tr [...]
[2021-11-23 16:05] LABS: Protime INR 1.03
--- NOTE | 2021-11-23 16:14 | RAD REPORT ---
EXAM DESCRIPTION: RAD - Chest Single View - 11/23/2021 4:03 pm CLINICAL HISTORY: SOB COMPARISON: Chest Single View dated 02/22/2021; Chest Single View dated 01/31/2021; Chest Single View dated 12/17/2020; Chest Pa And Lat (2 Views) dated 01/21/2020; Angio Aorta For Dissection dated 02/23/20 21 FINDINGS: Lines: None. Lungs: Near complete opacification of the right lung with only minimal aerated lung Pleural: Very large right pleural effusion. Cardiac: The heart size is within normal limits. Bones: No acute fractures. Other: IMPRESSION: Very large right pleural effusion which is increased from prior and with only minimal ae rated right lung. The left lung is clear.
[2021-11-23] MEDS ORDERED: FUROSEMIDE 100 MG/10 ML VIAL IV ONE (17:05)
[2021-11-23 17:29] LABS: ALT/SGPT 23 U/L (12-78); AST/SGOT 42 U/L (15-37); Albumin 2.2 g/dL (3.4-5.0); Alkaline Phosphatase 88 U/L (45-117); BUN Blood Urea Nitrogen 17 mg/dL (7-18); Bicarbonate 25 mmol/L (21-32); Bilirubin Direct 0.2 mg/dL (0-0.2); Bilirubin Total 0.6 mg/dL (0.2-1.0); Glucose Level 100 mg/dL (74-106); Magnesium 1.9 mg/dL (1.8-2.4); NT PRO-BNP 1305 pg/mL (<125); Potassium 3.8 mmol/L (3.5-5.1); Protein, Total 6.8 g/dL (6.4-8.2); Sodium Level 142 mmol/L (136-145)
--- NOTE | 2021-11-23 18:49 | EDPHYS ---
Physician Documentation [facility] Name: Blaise Renee Age: 61 yrs Sex: Male : 1960 Arrival Date: 11/23/2021 Time: 15:10 Bed 27 Private MD: ED Physician Rita Adamson HPI: 11/23 15:35 This 61 yrs old Male presents to ER via EMS with complaints of Shortness of Breath. cp 15:35 The patient has shortness of breath at rest. Onset: The symptoms/episode began/occurred cp 1 week(s) ago. Duration: The symptoms are continuous, and are steadily getting worse. Associated signs and symptoms: Pertinent positives: chest pain, lower extremity swelling, Pertinent negatives: productive cough, fever. Severity of symptoms: in the emergency department the symptoms have improved mildly. Historical: - Allergies: 15:18 No Known Allergies; ab2 - Home Meds: 15:17 amlodipine oral [Active]; atorvastatin Oral [Active]; clopidogrel Oral [Active]; Lasix ab2 Oral [Active]; lisinopril Oral [Active]; Spironolactone Oral [Active]; - PMHx: 15:17 Cirrhosis; Hepatitis; Hypertension; ab2 - Immunization history:: Adult Immunizations unknown, Client reports having NOT received the Covid vaccine. - Social history:: Smoking status: Patient reports the use of cigarette tobacco products, unknown amount Patient/guardian denies using alcohol, street drugs, IV drugs. ROS: 15:40 Constitutional: Negative for body aches, chills, fever, poor PO intake. cp 15:40 Eyes: Negative for injury, pain, redness, and discharge. cp 15:40 ENT: Negative for ear pain, sore throat, difficulty swallowing, difficulty handling secretions. 15:40 Cardiovascular: Positive for chest pain, edema, Negative for palpitations. 15:40 Respiratory: Positive for shortness of breath, at rest. Negative for cough, wheezing. 15:40 Abdomen/GI: Negative for abdominal pain, vomiting, diarrhea, constipation. 15:40 : Negative for urinary symptoms, difficulty urinating. 15:40 Neuro: Negative for altered mental status, dizziness, headache, syncope, weakness. 15:40 All other systems are negative. Exam: 15:45 Constitutional: The patient appears alert, awake, non-diaphoretic, non-toxic, well cp developed, well nourished, in obvious distress, mildly distressed. 15:45 Head/Face: Normocephalic, atraumatic. cp 15:45 Eyes: Periorbital structures: appear normal, Conjunctiva: normal, no exudate, no injection, Sclera: no appreciated abnormality, Lids and lashes: appear normal, bilaterally. 15:45 ENT: External ear(s): are unremarkable, Nose: is normal, Mouth: Lips: moist, Oral mucosa: moist, Posterior pharynx: Airway: no evidence of obstruction, patent. 15:45 Neck: ROM/movement: is normal, is supple, without pain, no range of motions limitations. 15:45 Chest/axilla: Inspection: normal, Palpation: is normal, no crepitus, no tenderness. 15:45 Cardiovascular: Rate: normal, Rhythm: regular, Edema: pedal edema, that is moderate, ankle edema, that is moderate, JVD: is not appreciated. 15:45 Respiratory: mild respiratory distress is noted, Respirations: labored breathing, that is mild, shallow respirations, that is moderate, Breath sounds: decreased breath sounds, that are moderate, are heard in the right posterior upper lobe, right posterior middle lobe and right posterior lower lobe, stridor, is not appreciated, wheezing: is not appreciated. 15:45 Abdomen/GI: Inspection: distension, that is severe, Bowel sounds: active, all quadrants, Palpation: soft, in all quadrants, moderate abdominal tenderness, in all quadrants, rebound tenderness, is not appreciated, involuntary guarding, is elicited in all quadrants, Hernia: noted in the umbilical area, incarceration, is not appreciated, tenderness, is not appreciated. 15:45 Back: CVA tenderness, is absent. 15:45 Skin: cellulitis, is not appreciated, on the right lower leg and left lower leg. 15:45 Neuro: Orientation: to person, place \\T\\ time. Mentation: is normal, Motor: moves all fours, strength is normal, Sensation: no obvious gross deficits. 16:55 ECG was reviewed by the Attending Physician. cp Vital Signs: 15:10 BP 184 / 86; Pulse 77; Resp 19; Temp 98.4(O); Pulse Ox 99% on R/A; Weight 86.18 kg; ab2 Height 5 ft. 6 in. (167.64 cm); Pain 0/10; 15:52 BP 167 / 90; Pulse 68; Resp 20; Pulse Ox 100% on R/A; ab2 16:00 BP 156 / 87; Pulse 65; Resp 20; Pulse Ox 99% on R/A; ab2 17:00 BP 171 / 93; Pulse 73; Resp 20; Pulse Ox 99% on R/A; ab2 18:00 BP 163 / 100; Pulse 71; Resp 17; Pulse Ox 99% on R/A; Pain 0/10; ab2 19:00 BP 182 / 91; Pulse 75; Resp 18; Pulse Ox 99% on R/A; Pain 0/10; ab2 20:00 BP 192 / 97; Pulse 72; Resp 16; Pulse Ox 98% on R/A; Pain 0/10; ab2 20:44 BP 166 / 88; Pulse 84; Resp 16; Pulse Ox 99% on R/A; Pain 0/10; lg3 15:10 Body Mass Index 30.67 (86.18 kg, 167.64 cm) ab2 MDM: 15:28 Patient medically screened. 16:36 Physician consultation: Anirudh Hurtado MD was called at 16:37, left message on voicemail. 16:55 Physician consultation: February was called at 16:55, was contacted at 16:55, regarding consult, patient's condition, will be able to perform thoracentesis in morning. 18:45 Data reviewed: vital signs, nurses notes, lab test result(s), EKG, radiologic studies, cp plain films. 18:45 Test interpretation: by ED physician or midlevel provider: ECG, plain radiologic cp studies. Counseling: I had a detailed discussion with the patient and/or guardian regarding: the historical points, exam findings, and any diagnostic results supporting the discharge/admit diagnosis, lab results, radiology results, the need for further work-up and treatment in the hospital. Physician consultation: Augustus ALAN was called at 18:30, was contacted at 18:30, regarding admission, to the telemetry unit. patient's condition. 11/23 15:33 Order name: Basic Metabolic Panel; Complete Time: 17:39 cp 11/23 17:40 Interpretation: Normal except: CL 110; CA 8.3. cp 11/23 15:33 Order name: CBC with Diff cp 11/23 15:33 Order name: LFT's; Complete Time: 17:39 cp 11/23 17:40 Interpretation: Normal except: AST 42; ALB 2.2; GLOB 4.6; A/G 0.5. cp 11/23 15:33 Order name: Magnesium; Complete Time: 17:39 cp 11/23 15:33 Order name: NT PRO-BNP; Complete Time: 17:39 cp 11/23 17:40 Interpretation: Abnormal: NT PRO-BNP 1305. cp 11/23 15:33 Order name: PT-INR; Complete Time: 16:27 cp 11/23 15:33 Order name: Troponin HS; Complete Time: 17:39 cp 11/23 15:39 Order name: Urine Microscopic Only cp 11/23 15:40 Order name: Urine Microscopic Only EDMS 11/23 15:43 Order name: AMMONIA; Complete Time: 16:27 cp 11/23 15:43 Order name: Blood Culture Adult (2) cp 11/23 15:43 Order name: Lactate; Complete Time: 16:27 cp 11/23 15:43 Order name: Procalcitonin; Complete Time: 17:39 cp 11/23 17:40 Interpretation: Abnormal: Procalcitonin 0.08. cp 11/23 16:05 Order name: COVID-19/FLU A+B (Document "Date of Onset" if Symptomatic) cp 11/23 15:33 Order name: XRAY Chest (1 view); Complete Time: 16:27 cp 11/23 15:33 Order name: EKG; Complete Time: 15:34 cp 11/23 15:33 Order name: Cardiac monitoring; Complete Time: 15:52 cp 11/23 15:33 Order name: EKG - Nurse/Tech; Complete Time: 15:52 cp 11/23 15:33 Order name: IV Saline Lock; Complete Time: 15:52 cp 11/23 15:33 Order name: Labs collected and sent; Complete Time: 15:52 cp 11/23 15:33 Order name: O2 Per Protocol; Complete Time: 15:52 cp 11/23 15:33 Order name: O2 Sat Monitoring; Complete Time: 15:52 cp EC:55 Rate is 69 beats/min. Rhythm is regular. OH interval is normal. QRS interval is normal. cp QT interval is normal. T waves are Inverted in lead aVR. Interpreted by me. Reviewed by me. Administered Medications: 16:45 Drug: Lasix (furosemide) 60 mg Route: IVP; Site: right forearm; bp 17:17 Follow up: Response: No adverse reaction bp Disposition Summary: 11/23/21 18:48 Hospitalization Ordered Hospitalization Status: Inpatient Admission cp Provider: Rita Lennon cp Location: Telemetry/MedSurg (Inpatient) cp Condition: Stable cp Problem: an acute exacerbation cp Symptoms: have improved cp Bed/Room Type: Standard cp Room Assignment: 230(11/23/21 19:38) mw Diagnosis - Pleural effusion, not elsewhere classified cp - Alcoholic cirrhosis of liver with ascites cp - Dyspnea, unspecified cp Forms: - Medication Reconciliation Form cp - SBAR form cp Signatures: Dispatcher [employer] EDGabriela Jo RN RN mw Tommie Sandoval PA PA cp Peltier, Brian RN RN bp Colin Xiong2 Corrections: (The following items were deleted from the chart) 17:40 17:40 Normal except: CL 110. cp cp 19:38 18:48 cp 11/24 03:40 11/22 16:55 ECG was reviewed by the Attending Physician. [facility] 11/24 03:40 11/22 16:55 Rate is 69 beats/min. Rhythm is regular. OH interval is normal. QRS cp interval is normal. QT interval is normal. T waves are Inverted in lead aVR. Interpreted by me. Reviewed by me. cp
--- NOTE | 2021-11-23 18:49 | ER ---
Nurse's Notes [facility] Name: Blaise Renee Age: 61 yrs Sex: Male : 1960 Arrival Date: 11/23/2021 Time: 15:10 Bed 27 Private MD: Diagnosis: Pleural effusion, not elsewhere classified;Alcoholic cirrhosis of liver with ascites;Dyspnea, unspecified Presentation: 11/23 15:10 Chief complaint: Patient states: Patient presents to ED via EMS for c/o shortness of ab2 breath. Pt has hx cirrhosis. Abdominal ascites noted. bilateral pedal edema noted. Coronavirus screen: Vaccine status: Patient reports being unvaccinated. Client denies travel out of the [place] in the last 14 days. difficulty breathing, Client presents with at least one sign or symptom that may indicate coronavirus-19. Standard/surgical mask placed on the client. Provider contacted for isolation considerations. Ebola Screen: Patient negative for fever greater than or equal to 101.5 degrees Fahrenheit, and additional compatible Ebola Virus Disease symptoms Patient denies exposure to infectious person. Patient denies travel to an Ebola-affected area in the 21 days before illness onset. No symptoms or risks identified at this time. Initial Sepsis Screen: Does the patient meet any 2 criteria? No. Patient's initial sepsis screen is negative. Does the patient have a suspected source of infection? No. Patient's initial sepsis screen is negative. Risk Assessment: Do you want to hurt yourself or someone else? Patient reports no desire to harm self or others. Onset of symptoms is unknown. 15:10 Method Of Arrival: EMS: [facility] ab2 15:10 Acuity: TRICIA 3 ab2 Triage Assessment: 15:17 General: General: Appears distressed, uncomfortable, Behavior is cooperative, bp appropriate for age, anxious. 17:17 Pain: Complains of pain in abdomen. EENT: No deficits noted. Neuro: Level of bp Consciousness is awake, alert, obeys commands, Oriented to Appropriate for age. Cardiovascular: Rhythm is sinus rhythm. Respiratory: Airway is patent Respiratory effort is labored, Respiratory pattern is symmetrical, tachypnea. GI: Abdomen is distended, noted to have ascites. : No signs and/or symptoms were reported regarding the genitourinary system. Derm: No deficits noted. Musculoskeletal: No deficits noted. Historical: - Allergies: 15:18 No Known Allergies; ab2 - Home Meds: 15:17 amlodipine oral [Active]; atorvastatin Oral [Active]; clopidogrel Oral [Active]; Lasix ab2 Oral [Active]; lisinopril Oral [Active]; Spironolactone Oral [Active]; - PMHx: 15:17 Cirrhosis; Hepatitis; Hypertension; ab2 - Immunization history:: Adult Immunizations unknown, Client reports having NOT received the Covid vaccine. - Social history:: Smoking status: Patient reports the use of cigarette tobacco products, unknown amount Patient/guardian denies using alcohol, street drugs, IV drugs. Screenin:18 Abuse screen: Denies threats or abuse. Denies injuries from another. Nutritional ab2 screening: No deficits noted. Tuberculosis screening: No symptoms or risk factors identified. Fall Risk None identified. Assessment: 15:14 General: Appears in no apparent distress. Behavior is calm, cooperative, appropriate ab2 for age. Pain: Denies pain. Neuro: No deficits noted. 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 Speech is normal, Facial symmetry appears normal, Denies weakness. Cardiovascular: No deficits noted. Denies chest pain, Heart tones S1 S2 present Patient's skin is warm and dry. Pulses are absent in right radial artery and left radial artery Chest pain is denied. Respiratory: Airway is patent Breath sounds are diminished Breath sounds with wheezes bilaterally. Respiratory: Reports shortness of breath. GI: Abdomen is noted to have ascites, Bowel sounds present X 4 quads. Abdomen is tender to palpation Reports lower abdominal pain, upper abdominal pain, Patient currently denies normal bowel habits. : No deficits noted. No signs and/or symptoms were reported regarding the genitourinary system. EENT: No deficits noted. No signs and/or symptoms were reported regarding the EENT system. Derm:. Derm: Reports Swelling bilateral lower extremities. Musculoskeletal:. Musculoskeletal: No deficits noted. No signs and/or symptoms reported regarding the musculoskeletal system. 18:13 Reassessment: No changes from previously documented assessment. Patient resting at this ab2 time, no distress noted. 20:35 Reassessment: No changes from previously documented assessment. Pt incontinent of ab2 bowel. Pt cleaned up and new depend placed. Vital Signs: 15:10 BP 184 / 86; Pulse 77; Resp 19; Temp 98.4(O); Pulse Ox 99% on R/A; Weight 86.18 kg; ab2 Height 5 ft. 6 in. (167.64 cm); Pain 0/10; 15:52 BP 167 / 90; Pulse 68; Resp 20; Pulse Ox 100% on R/A; ab2 16:00 BP 156 / 87; Pulse 65; Resp 20; Pulse Ox 99% on R/A; ab2 17:00 BP 171 / 93; Pulse 73; Resp 20; Pulse Ox 99% on R/A; ab2 18:00 BP 163 / 100; Pulse 71; Resp 17; Pulse Ox 99% on R/A; Pain 0/10; ab2 19:00 BP 182 / 91; Pulse 75; Resp 18; Pulse Ox 99% on R/A; Pain 0/10; ab2 20:00 BP 192 / 97; Pulse 72; Resp 16; Pulse Ox 98% on R/A; Pain 0/10; ab2 20:44 BP 166 / 88; Pulse 84; Resp 16; Pulse Ox 99% on R/A; Pain 0/10; lg3 15:10 Body Mass Index 30.67 (86.18 kg, 167.64 cm) ab2 ED Course: 15:10 Patient arrived in ED. ab2 15:14 Triage completed. ab2 15:19 Arm band placed on right wrist. ab2 15:19 Patient has correct armband on for positive identification. Bed in low position. Call ab2 light in reach. Side rails up X2. 15:19 No provider procedures requiring assistance completed. ab2 15:21 Tommie Sandoval PA is PHCP. cp 15:21 Rita Adamson MD is Attending Physician. cp 16:01 Jose Tsang, RN is Primary Nurse. bp 16:02 XRAY Chest (1 view) In Process Unspecified. EDMS 18:47 Rita Lennon MD is Hospitalizing Provider. cp 20:22 Blood Culture Adult (2) Sent. lg3 Administered Medications: 16:45 Drug: Lasix (furosemide) 60 mg Route: IVP; Site: right forearm; bp 17:17 Follow up: Response: No adverse reaction bp Outcome: 18:48 Decision to Hospitalize by Provider. cp 21:36 Patient left the ED. lg3 Signatures: Dispatcher [employer] EDMS Tommie Sandoval PA PA cp Jose Tsang RN RN bp Maranda Pruitt RN RN lg3 Colin Xiong Corrections: (The following items were deleted from the chart) 17:18 15:17 General: ab2 bp
[2021-11-23 18:53] LABS: SARS-COV-2 RT PCR NEGATIVE (NEGATIVE)
[2021-11-23 20:08] LABS: Absolute Lymphocytes (CBC) 0.5 K/uL (0.7-4.9); Hematocrit 30.8 % (39.6-49.0); Lymphocytes % 20.2 % (15.3-44.8); MPV 7.5 fL (7.6-11.3); RBC Red Blood Cell Count 3.31 M/uL (4.33-5.43)
[2021-11-23] MEDS ORDERED: ONDANSETRON 4 MG/2 ML VIAL IV PRN (21:25)
[2021-11-23] MEDS ORDERED: HYDRALAZINE HCL 20 MG/ML VIAL IV PRN (21:25)
[2021-11-23 21:35] LABS: Platelet Estimate ADEQ; White Blood Cell Scan OK (OK)
[2021-11-23 21:36] LABS: Anisocytosis 1+; Blood Morphology Comment NOTED (NOT SEEN); Elliptocytes 1+; Hypochromasia 1+
[2021-11-23 22:18] VITALS: BMI 30.9
[2021-11-23] MEDS ORDERED: ALBUTEROL 2.5 MG/3 ML NEB SOL NEB PRN (22:19)
[2021-11-23] MEDS ORDERED: IPRATROPIUM BROM 0.5MG/2.5ML NEB PRN (22:20)
--- NOTE | 2021-11-23 23:47 | P.HP ---
Certification for Inpatient Patient admitted to: Inpatient With expected LOS: >2 Midnights Patient will require the following post-hospital care: None Practitioner: I am a practitioner with admitting privileges, knowledge of patient current condition, hospital course, and medical plan of care. Services: Services provided to patient in accordance with Admission requirements found in Title 42 Section 412.3 of the Code of Federal Regulations <Augustus Baker - Last Filed: 11/23/21 23:53> Patient History Date of Service: 11/23/21 Reason for admission: pleural effusion, ascites History of Present Illness: Mr. Renee is a 61 yo M with Hep C cirrhosis, HTN, history of CVA who presents with one month of increased SOB, CONRAD and and swelling in his abdomen. He also reports diarrhea. He has a large umbilical hernia that is reducible and is not causing him pain. He has had multiple paracentesis, and one thoracentesis in the past. He says he stopped taking his lasix and only sometimes takes his spironolactone because he is too weak to get up in the middle of the night to urinate. He is currently on 2L nasal cannula, sats in the 90s, but did have labored breathing which improved after breathing treatment. H/H 9.8 Plt 149 CXR IMPRESSION: Very large right pleural effusion which is increased from prior and with only minimal aerated right lung. The left lung is clear - Past Medical/Surgical History Has patient received pneumonia vaccine in the past: No Diabetic: No -: CVA (11/11/2017) -: Fall(05/27/19) -: Hep C cirrhosis -: HTN -: Carotid artery stenosis -: R hip surgery Psychosocial/ Personal History: Patient is disabled, lives with a son - Family History Father -: Stroke - Social History Smoking Status: Former smoker Alcohol use: No CD- Drugs: No Caffeine use: No Place of Residence: Home <SamuelAugustus S - Last Filed: 11/23/21 23:53> Date of Service: 11/23/21 <Rita Lennon - Last Filed: 11/27/21 01:30> Allergies No Known Allergies Allergy (Verified 11/23/21 21:46) Home Medications: Amlodipine [Norvasc*] 1 tab PO DAILY 07/13/21 Atorvastatin Calcium 20 mg PO BEDTIME 07/13/21 Clopidogrel Bisulfate [Plavix] 75 mg PO DAILY 07/13/21 Spironolactone 100 mg PO DAILY 07/13/21 lisinopriL [Lisinopril] 40 mg PO DAILY 07/13/21 Furosemide 40 mg PO BID #60 tablet 11/26/21 Hydrocodone 5/APAP 325 [[place] 5/325] 1 tab PO Q6H PRN #30 tab 11/26/21 Review of Systems 10-point ROS is otherwise unremarkable Respiratory: Shortness of Breath, SOB with Excertion, Wheezing Gastrointestinal: Diarrhea, Distention <Augustus Baker - Last Filed: 11/23/21 23:53> Physical Examination - Vital Signs Temperature: 97.6 F Blood Pressure: 164/88 Pulse: 86 Respirations: 20 Pulse Ox (%): 98 - Physical Exam General: Alert HEENT: Atraumatic, PERRLA, Mucous membr. moist/pink, EOMI, Sclerae nonicteric Neck: Supple, 2+ carotid pulse no bruit, No LAD, Without JVD or thyroid abnormality Respiratory: Diminished, Crackles/rales, Other (decreased breath sounds over right lung ) Cardiovascular: Regular rate/rhythm, Normal S1 S2 Gastrointestinal: Normal bowel sounds, No tenderness, No rebound, No guarding, Other (significant ascites, large umbilical hernia, easily reducible, no pain or erythema), Ascites Musculoskeletal: No tenderness Integumentary: No rashes Neurological: Normal strength at 5/5 x4 extr, Normal tone, Normal affect Lymphatics: No axilla or inguinal lymphadenopathy - Studies Laboratory Data (last 24 hrs) 11/23/21 15:50: PT 11.9, INR 1.03 11/23/21 15:50: Sodium 142, Potassium 3.8, BUN 17, Creatinine 0.74, Glucose 100, Magnesium 1.9, Total Bilirubin 0.6, AST 42 H, ALT 23, Alkaline Phosphatase 88 <Augustus Baker - Last Filed: 11/23/21 23:53> Assessment and Plan - Problems (Diagnosis) (1) Ascites Status: Acute Qualifiers: Ascites type: other type Qualified Code(s): R18.8 - Other ascites (2) History of CVA with residual deficit Status: Chronic (3) Liver cirrhosis Status: Chronic Qualifiers: Hepatic cirrhosis type: unspecified hepatic cirrhosis Ascites presence: with ascites Qualified Code(s): K74.60 - Unspecified cirrhosis of liver; R18.8 - Other ascites (4) Non compliance w medication regimen Status: Acute (5) HTN (hypertension) Status: Chronic Qualifiers: Hypertension type: primary hypertension Qualified Code(s): I10 - Essential (primary) hypertension (6) Hepatitis C Status: Chronic Qualifiers: Viral hepatitis chronicity: chronic Hepatic coma status: without hepatic coma Qualified Code(s): B18.2 - Chronic viral hepatitis C (7) Pleural effusion, right Status: Acute - Plan NPO after midnight thoracentesis and paracentesis in the AM continue IV lasix and spironolactone O2 and breathing treatments as needed reconcile and continue home medications hydralazine PRN for BP spikes daily weights DVT ppx Discharge Plan: Home Plan to discharge in: 48 Hours - Advance Directives Does patient have a Living Will: No Does patient have a Durable POA for Healthcare: No - Code Status/Comfort Care Code Status Assessed: Yes (full code ) Critical Care: No Time Spent Managing Pts Care (In Minutes): 70 <Augustus Baker - Last Filed: 11/23/21 23:53> - Problems (Diagnosis) (1) Ascites Status: Acute Qualifiers: Ascites type: other type Qualified Code(s): R18.8 - Other ascites (2) Pleural effusion, right Status: Acute (3) HTN (hypertension) Status: Chronic Qualifiers: Hypertension type: primary hypertension Qualified Code(s): I10 - Essential (primary) hypertension (4) Hepatitis C Status: Chronic Qualifiers: Viral hepatitis chronicity: chronic Hepatic coma status: without hepatic coma Qualified Code(s): B18.2 - Chronic viral hepatitis C (5) History of CVA with residual deficit Status: Chronic (6) Liver cirrhosis Status: Chronic Qualifiers: Hepatic cirrhosis type: unspecified hepatic cirrhosis Ascites presence: with ascites Qualified Code(s): K74.60 - Unspecified cirrhosis of liver; R18.8 - Other ascites <Rita Lennon - Last Filed: 11/27/21 01:30> Date of Service: 11/23/21 Subjective Agree with the HPI as mentioned above Review of Systems 10-point ROS is otherwise unremarkable Physical Examination - Vital Signs Reviewed - Physical Exam General: Alert, In no apparent distress, Oriented x3 Respiratory: Other (Basilar crackles) Cardiovascular: Regular rate/rhythm, Normal S1 S2, Systolic murmur Gastrointestinal: Normal bowel sounds, Soft and benign, Non-distended, No tenderness Musculoskeletal: No clubbing, Swelling Neurological: Sensation intact, Cranial nerves 3-12 intact Assessment & Plan - Problems (Diagnosis) (1) Ascites Status: Acute Qualifiers: Ascites type: other type Qualified Code(s): R18.8 - Other ascites (2) Pleural effusion, right Status: Acute (3) HTN (hypertension) Status: Chronic Qualifiers: Hypertension type: primary hypertension Qualified Code(s): I10 - Essential (primary) hypertension (4) Hepatitis C Status: Chronic Qualifiers: Viral hepatitis chronicity: chronic Hepatic coma status: without hepatic coma Qualified Code(s): B18.2 - Chronic viral hepatitis C (5) History of CVA with residual deficit Status: Chronic (6) Liver cirrhosis Status: Chronic Qualifiers: Hepatic cirrhosis type: unspecified hepatic cirrhosis Ascites presence: with ascites Qualified Code(s): K74.60 - Unspecified cirrhosis of liver; R18.8 - Other ascites - Plan Continue with plan of care as mentioned below: 1. Status post thoracentesis and paracentesis 2. Monitor volume status closely 3. Continue with diuresing 4. IV albumin of monitor renal function 5. GI and DVT prophylaxis <Rita Lennon - Last Filed: 11/27/21 01:30>
[2021-11-24 06:37] LABS: Absolute Lymphocytes (CBC) 0.5 K/uL (0.7-4.9); Lymphocytes % 19.6 % (15.3-44.8); MPV 6.9 fL (7.6-11.3); RBC Red Blood Cell Count 2.71 M/uL (4.33-5.43)
[2021-11-24 07:51] LABS: ALT/SGPT 20 U/L (12-78); AST/SGOT 34 U/L (15-37); Albumin 1.8 g/dL (3.4-5.0); Alkaline Phosphatase 74 U/L (45-117); BUN Blood Urea Nitrogen 17 mg/dL (7-18); Bicarbonate 24 mmol/L (21-32); Bilirubin Total 0.4 mg/dL (0.2-1.0); Glucose Level 91 mg/dL (74-106); HDL Cholesterol 26 mg/dL (40-60); LDL Cholesterol, Calculated 26 (<130); Magnesium 2.6 mg/dL (1.8-2.4); Phosphorus 3.5 mg/dL (2.5-4.9); Potassium 3.6 mmol/L (3.5-5.1); Protein, Total 5.7 g/dL (6.4-8.2); Sodium Level 144 mmol/L (136-145)
[2021-11-24] MEDS ORDERED: INFLUENZA VACCINE (for 6+ mo) 0.5 ML DOSE IMVAC ONE (08:00)
[2021-11-24] MEDS: lisinopriL 20 MG TAB PO SCH (08:15)
[2021-11-24] MEDS: MORPHINE 2 MG/ML SYR IV PRN ×3 (08:15→21:35)
[2021-11-24] MEDS: FUROSEMIDE 40 MG/4 ML VIAL IV SCH ×2 (08:15→17:12)
[2021-11-24] MEDS: AMLODIPINE 5 MG TAB PO SCH (08:15)
[2021-11-24] MEDS ORDERED: SPIRONOLACTONE 100 MG TAB PO SCH (09:00)
[2021-11-24] MEDS ORDERED: KCL 20 MEQ/100 mL IVPB 20 MEQ/100 ML BAG IV SCH (10:00)
--- NOTE | 2021-11-24 10:00 | RAD REPORT ---
EXAM DESCRIPTION: US - Thoracentesis w/ US Guide - 11/24/2021 9:54 am CLINICAL HISTORY: Pleural effusion. ascites, pleural effusion COMPARISON: Paracentesis Proc Guidance dated 09/05/2020 FINDINGS: Preoperative diagnosis: Right-sided pleural effusion Post operative diagnosis: Same Conscious Sedation: None. Estimated blood loss: Minimal Specimens:A small volume of fluid was sent for requested lab studies. The patient was placed in the upright recumbent position and the right chest was prepped and draped i n the usual sterile fashion. 1% Lidocaine was infiltrated into the soft tissues for local anesthesia . Under sonographic guidance, a thoracentesis needle and 6 [place] catheter was advanced into the rig ht pleural space. Approximately 1200 yellow fluid was aspirated. Samples were sent to pathology for r equested analysis. The patient tolerated the procedure without immediate complication and transferred to the floor in stable condition. IMPRESSION: Successful ultrasound-guided thoracentesis as detailed.
--- NOTE | 2021-11-24 10:18 | RAD REPORT ---
EXAM DESCRIPTION: US - Paracentesis Proc Guidance - 11/24/2021 10:10 am CLINICAL HISTORY: ascites Ascites COMPARISON: Thoracentesis w/ US Guide dated 11/24/2021 FINDINGS: Informed consent was obtained and time-out was performed. Patient's abdomen was prepped and draped in the usual sterile fashion. 1% lidocaine was used for loca l anesthetic purposes. A small skin incision was made. A paracentesis catheter was guided into the peroneal cavity under son ographic guidance. A small amount of fluid was sent for requested lab studies. A large volume paracentesis was performed . The patient tolerated the procedure well. Patient was administered IV albumin per protocol following the procedure. IMPRESSION: Successful ultrasound-guided paracentesis.
[2021-11-24] MEDS ORDERED: POTASSIUM 25 MEQ EFFERV TAB PO ONE (12:00)
[2021-11-24 13:28] LABS: Appearance SLT. TURBID (CLEAR); Body Fluid Source PLEURAL; Body Fluid WBC 112 /mm^3; Color of fluid Yellow (COLORLESS)
[2021-11-24] MEDS ORDERED: METOPROLOL TAR 25 MG TAB PO ONE (18:00)
[2021-11-24] MEDS ORDERED: SPIRONOLACTONE 25 MG TABLET PO ONE (18:00)
[2021-11-24] MEDS ORDERED: ALBUMIN HUMAN 25% 100 ML IV ONE (18:00)
[2021-11-24] MEDS: ATORVASTATIN 20 MG TAB PO SCH (21:35)
[2021-11-25] MEDS: MORPHINE 2 MG/ML SYR IV PRN ×3 (04:12→20:49)
[2021-11-25 06:08] LABS: Absolute Lymphocytes (CBC) 0.7 K/uL (0.7-4.9); Hematocrit 26.5 % (39.6-49.0); Lymphocytes % 22.1 % (15.3-44.8); MPV 6.8 fL (7.6-11.3); RBC Red Blood Cell Count 2.87 M/uL (4.33-5.43)
[2021-11-25 06:21] LABS: BUN Blood Urea Nitrogen 15 mg/dL (7-18); Bicarbonate 26 mmol/L (21-32); Glucose Level 100 mg/dL (74-106); Magnesium 1.9 mg/dL (1.8-2.4); Potassium 3.8 mmol/L (3.5-5.1); Sodium Level 142 mmol/L (136-145)
[2021-11-25] MEDS: AMLODIPINE 5 MG TAB PO SCH (08:31)
[2021-11-25] MEDS: FUROSEMIDE 40 MG/4 ML VIAL IV SCH ×2 (08:32→16:00)
[2021-11-25] MEDS: CLOPIDOGREL 75 MG TABLET PO SCH (08:32)
[2021-11-25] MEDS: lisinopriL 20 MG TAB PO SCH (08:32)
[2021-11-25] MEDS: SPIRONOLACTONE 100 MG TAB PO SCH (08:32)
[2021-11-25] MEDS ORDERED: FUROSEMIDE 40 MG TABLET PO SCH (09:00)
[2021-11-25] MEDS ORDERED: POTASSIUM CL SA 10 MEQ TAB PO ONE (09:00)
[2021-11-25] MEDS ORDERED: INFLUENZA VACCINE (for 6+ mo) 0.5 ML DOSE IMVAC ONE (12:00)
[2021-11-25] MEDS ORDERED: ALBUMIN HUMAN 25% 12.5 GM, FUROSEMIDE 100 MG in NA CHLORIDE 0.9% 40 ML IV SCH (13:00)
[2021-11-25] MEDS: ATORVASTATIN 20 MG TAB PO SCH (20:49)
--- NOTE | 2021-11-25 21:57 | RAD REPORT ---
EXAM DESCRIPTION: US - Extrem Venous W Compress Krish - 11/25/2021 9:49 pm CLINICAL HISTORY: Bilateral ankle swelling COMPARISON: None. TECHNIQUE: Real-time sonographic evaluation of the bilateral lower extremity deep venous systems was performed. FINDINGS: Normal compressibility, flow augmentation, phasic flow and spontaneous flow is identified in both the left and right lower extremity deep venous systems. No intraluminal filling defects seen. IMPRESSION: No DVT in either lower extremity.
[2021-11-26] MEDS: MORPHINE 2 MG/ML SYR IV PRN ×3 (02:16→10:06)
[2021-11-26] MEDS ORDERED: POTASSIUM CL SA 10 MEQ TAB PO ONE (09:00)
[2021-11-26] MEDS ORDERED: ALBUMIN HUMAN 25% 50 ML IV ONE (09:37)
[2021-11-26] MEDS ORDERED: HYDROCODONE/APAP 5/325 MG TAB PO ONE (09:37)
[2021-11-26] MEDS: lisinopriL 20 MG TAB PO SCH (10:05)
[2021-11-26] MEDS: CLOPIDOGREL 75 MG TABLET PO SCH (10:05)
[2021-11-26] MEDS: AMLODIPINE 5 MG TAB PO SCH (10:06)
[2021-11-26] MEDS: FUROSEMIDE 40 MG/4 ML VIAL IV SCH (10:06)
[2021-11-26] MEDS: SPIRONOLACTONE 100 MG TAB PO SCH (10:06)
[2021-11-26 10:54] VITALS: O2SAT 93
[2021-11-26 12:30] VITALS: BP 136/73; TEMP 98.4
--- NOTE | 2021-11-27 01:29 | P.PN ---
Subjective Date of Service: 11/24/21 Patient status post thoracentesis and paracentesis Review of Systems 10-point ROS is otherwise unremarkable Physical Examination - Vital Signs Temperature: 98.4 F Blood Pressure: 136/73 Pulse: 86 Respirations: 24 Pulse Ox (%): 91 - Physical Exam General: Alert, In no apparent distress, Oriented x3 Respiratory: Other (Basilar crackles) Cardiovascular: Regular rate/rhythm, Normal S1 S2, Systolic murmur Gastrointestinal: Normal bowel sounds, Soft and benign, Non-distended, No tenderness Musculoskeletal: No clubbing, Swelling Neurological: Sensation intact, Cranial nerves 3-12 intact Assessment & Plan - Problems (Diagnosis) (1) Ascites Status: Acute Qualifiers: Ascites type: other type Qualified Code(s): R18.8 - Other ascites (2) Pleural effusion, right Status: Acute (3) HTN (hypertension) Status: Chronic Qualifiers: Hypertension type: primary hypertension Qualified Code(s): I10 - Essential (primary) hypertension (4) Hepatitis C Status: Chronic Qualifiers: Viral hepatitis chronicity: chronic Hepatic coma status: without hepatic coma Qualified Code(s): B18.2 - Chronic viral hepatitis C (5) History of CVA with residual deficit Status: Chronic (6) Liver cirrhosis Status: Chronic Qualifiers: Hepatic cirrhosis type: unspecified hepatic cirrhosis Ascites presence: with ascites Qualified Code(s): K74.60 - Unspecified cirrhosis of liver; R18.8 - Other ascites - Plan Plan: 1. Status post thoracentesis and paracentesis 2. Monitor volume status closely 3. Continue with diuresing 4. IV albumin of monitor renal function 5. GI and DVT prophylaxis - Advance Directives Does patient have a Living Will: No Does patient have a Durable POA for Healthcare: No
--- NOTE | 2021-11-27 01:31 | P.PN ---
Date of Service: 11/25/21 Subjective Patient still with lower extremity edema. Patient with questionable DVT Review of Systems 10-point ROS is otherwise unremarkable Physical Examination - Vital Signs Reviewed - Physical Exam General: Alert, In no apparent distress, Oriented x3 Respiratory: Other (Basilar crackles) Cardiovascular: Regular rate/rhythm, Normal S1 S2, Systolic murmur Gastrointestinal: Normal bowel sounds, Soft and benign, Non-distended, No tenderness Musculoskeletal: No clubbing, Swelling-bilateral lower extremity Neurological: Sensation intact, Cranial nerves 3-12 intact Assessment & Plan - Problems (Diagnosis) (1) Ascites Status: Acute Qualifiers: Ascites type: other type Qualified Code(s): R18.8 - Other ascites (2) Pleural effusion, right Status: Acute (3) HTN (hypertension) Status: Chronic Qualifiers: Hypertension type: primary hypertension Qualified Code(s): I10 - Essential (primary) hypertension (4) Hepatitis C Status: Chronic Qualifiers: Viral hepatitis chronicity: chronic Hepatic coma status: without hepatic coma Qualified Code(s): B18.2 - Chronic viral hepatitis C (5) History of CVA with residual deficit Status: Chronic (6) Liver cirrhosis Status: Chronic Qualifiers: Hepatic cirrhosis type: unspecified hepatic cirrhosis Ascites presence: with ascites Qualified Code(s): K74.60 - Unspecified cirrhosis of liver; R18.8 - Other ascites - Plan Continue with plan of care as mentioned below: 1. Status post thoracentesis and paracentesis 2. Monitor volume status closely 3. Continue with diuresing 4. IV albumin of monitor renal function 5. GI and DVT prophylaxis - Advance Directives Does patient have a Living Will: No Does patient have a Durable POA for Healthcare: No
--- NOTE | 2021-11-27 01:33 | P.DS ---
Discharge Date: 11/26/21 Disposition: ROUTINE DISCHARGE Discharge Condition: GOOD Reason for Admission: pleural effusion, ascites - Problems (1) Ascites Status: Acute Qualifiers: Ascites type: other type Qualified Code(s): R18.8 - Other ascites (2) Pleural effusion, right Status: Acute (3) HTN (hypertension) Status: Chronic Qualifiers: Hypertension type: primary hypertension Qualified Code(s): I10 - Essential (primary) hypertension (4) Hepatitis C Status: Chronic Qualifiers: Viral hepatitis chronicity: chronic Hepatic coma status: without hepatic coma Qualified Code(s): B18.2 - Chronic viral hepatitis C (5) History of CVA with residual deficit Status: Chronic (6) Liver cirrhosis Status: Chronic Qualifiers: Hepatic cirrhosis type: unspecified hepatic cirrhosis Ascites presence: with ascites Qualified Code(s): K74.60 - Unspecified cirrhosis of liver; R18.8 - Other ascites Brief History of Present Illness: Mr. Renee is a 61 yo M with Hep C cirrhosis, HTN, history of CVA who presents with one month of increased SOB, CONRAD and and swelling in his abdomen. He also reports diarrhea. He has a large umbilical hernia that is reducible and is not causing him pain. He has had multiple paracentesis, and one thoracentesis in the past. He says he stopped taking his lasix and only sometimes takes his spironolactone because he is too weak to get up in the middle of the night to urinate. He is currently on 2L nasal cannula, sats in the 90s, but did have labored breathing which improved after breathing treatment. H/H 9.8 Plt 149 Hospital Course: Patient was diuresed and has lost about 10 lb. Patient clinical symptoms are improved. At this time, patient is stable for discharge. Patient needs to follow with hepatology closely. Vital Signs/Physical Exam: Temp Pulse Resp BP Pulse Ox 98.4 F 86 24 H 136/73 91 11/27/21 01:29 11/27/21 01:29 11/27/21 01:29 11/27/21 01:29 11/27/21 01:29 General: Alert, In no apparent distress, Oriented x3 Laboratory Data at Discharge: WBC 3.00 K/uL (4.3-10.9) L 11/25/21 05:51 Hgb 8.8 g/dL (13.6-17.9) L 11/25/21 05:51 Hct 26.5 % (39.6-49.0) L 11/25/21 05:51 Plt Count 149 K/uL (152-406) L 11/25/21 05:51 PT 11.9 SECONDS (9.5-12.5) 11/23/21 15:50 INR 1.03 11/23/21 15:50 Sodium 142 mmol/L (136-145) 11/25/21 05:51 Potassium 3.8 mmol/L (3.5-5.1) 11/25/21 05:51 Potassium Cancelled 11/25/21 05:51 BUN 15 mg/dL (7-18) 11/25/21 05:51 Creatinine 0.75 mg/dL (0.55-1.3) 11/25/21 05:51 Glucose 100 mg/dL (74-106) 11/25/21 05:51 Phosphorus 3.5 mg/dL (2.5-4.9) 11/24/21 06:24 Magnesium 1.9 mg/dL (1.8-2.4) D 11/25/21 05:51 Total Bilirubin 0.4 mg/dL (0.2-1.0) 11/24/21 06:24 AST 34 U/L (15-37) 11/24/21 06:24 ALT 20 U/L (12-78) 11/24/21 06:24 Alkaline Phosphatase 74 U/L (45-117) 11/24/21 06:24 Triglycerides 147 mg/dL (<150) 11/24/21 06:24 Cholesterol 81 mg/dL (<200) 11/24/21 06:24 HDL Cholesterol 26 mg/dL (40-60) L 11/24/21 06:24 Cholesterol/HDL Ratio 3.12 11/24/21 06:24 Home Medications: Amlodipine [Norvasc*] 1 tab PO DAILY 07/13/21 Atorvastatin Calcium 20 mg PO BEDTIME 07/13/21 Clopidogrel Bisulfate [Plavix] 75 mg PO DAILY 07/13/21 Spironolactone 100 mg PO DAILY 07/13/21 lisinopriL [Lisinopril] 40 mg PO DAILY 07/13/21 Furosemide 40 mg PO BID #60 tablet 11/26/21 Hydrocodone 5/APAP 325 [[place] 5/325] 1 tab PO Q6H PRN #30 tab 11/26/21 New Medications: Furosemide 40 mg PO BID #60 tablet Hydrocodone 5/APAP 325 [[place] 5/325] 1 tab PO Q6H PRN #30 tab PRN Reason: Pain Physician Discharge Instructions: OK TO DC IV AND DC HOME FOLLOW-UP WITH PCP IN 1-2 WEEKS FOLLOW-UP WITH HEPATOLOGY IN 1-2 WEEKS CALL ME AT [phone] IF ANY QUESTIONS REGARDING HOSPITAL STAY RETURN TO THE ER IF SYMPTOMS WORSENS Diet: Low sodium Activity: Fall precautions Followup: Darren Villaseñor, DO [Primary Care Provider] - (Call to schedule appointment) Time spent managing pt's care (in minutes): 35
[2021-11-29 16:05] LABS: Body Fluid Source PERITONEAL
[2021-11-29 16:09] LABS: Appearance SLT. TURBID (CLEAR); Color of fluid Yellow (COLORLESS)
[2021-11-29 16:14] LABS: Body Fluid WBC 117 /mm^3
[2021-11-30 20:25] LABS: LD, PLEURAL FLUID 16 U/L; TOTAL PROTEIN, PLEURAL FLUID <3.0 g/dL
== END 2021-11-26 13:38 | disposition home or self-care (01) | DRG 187 ==
LOC: ER 15:02 → ERHOLD 19:17 → 2ND 20:47
PROVIDERS: ADMIT Hospitalist; ATTEND Hospitalist
PROC: 0W993ZX Drainage of Right Pleural Cavity, Percutaneous Approach, Diagnostic (ICD-10-PCS; principal; 2021-11-24)
PROC: 0W9G3ZX Drainage of Peritoneal Cavity, Percutaneous Approach, Diagnostic (ICD-10-PCS; 2021-11-24)
DX: J90 Pleural effusion, not elsewhere classified (principal); R18.8 Other ascites; B18.2 Chronic viral hepatitis C; K74.60 Unspecified cirrhosis of liver; I10 Essential (primary) hypertension; I69.30 Unspecified sequelae of cerebral infarction; Z91.14 Patient's other noncompliance with medication regimen; Z20.822 Contact with and (suspected) exposure to COVID-19
CPT/HCPCS: 0240U; 32555; 36415; 49083; 71045; 80048; 80053; 80061; 80076; 82042; 82140; 82945; 83605; 83615; 83735; 83880; 84100; 84145; 84157; 84439; 84443; 84484; 85025; 85610; 87040; 87070; 87205; 89050; 93005; 93970; 94640; 94760; 96374; 99284; J0360; J1940; J2270; J3480; P9047; Q2035

== ENCOUNTER 2023-08-20 12:54 | Inpatient (IN) | payer OTHER ==
--- OUTSIDE RECORDS SUMMARY | 2023-08-20 13:20 | XMS REPORT | Continuity of Care Document ---
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 2022-0 Yes [id number] 5mg 5 mg, Univers (ELIQUIS) 06-24 Oral, BID, ity of tablet 5 mg 13:00: First dose [place] [address] [facility] 06/24/23 at Branch 0800, Until Discontinu ed, Routine
Indicatio ns: DVT/PE furosemide 2022-0 2023- No [id number] 40mg 40 mg, Univers (LASIX) 06-24-14 Slow IV ity of injection 07:45: 08:22 Push, [place] 40 mg 00 :00 ONCE, 1 Medical dose, On Branch [facility] 06/24/23 at 0245, Routine ipratropium 2022-0 Yes [id number] 3mL 3 mL, U nivers -albuteroL 06-24 Inhalation ity of (DUONEB) 07:15: , QID, [place] 0.5 mg-3 00 First dose Medic al mg(2.5 mg on [facility] base)/3 mL 06/24/23 at nebulizer 0215, solution 3 Until mL Discontinu ed, Routine acetaminoph 2022- No [id number] 1{tbl} 1 tablet, Univers en-codeine 06-24 Oral, ity of (TYLENOL 06:56: 06:55 Q6HPRN, [place] #3) 300-30 31 :31 Starting Medic al mg tablet 1 on [facility] tablet 06/24/23 at 0156, Until 06/26/23 at 0155, Routine, Pain (scale 4-6) acetaminoph Yes [id number] 650mg 650 mg, Univers en 06-24 Oral, ity of (TYLENOL) 06:56: Q6HPRN, [place] tablet 650 29 Starting Medic al mg on [facility] Branch 06/24/23 at 0156, Until Discontinu ed, Routine, Pain (scale 1-3) iopamidol 2022- No [id number] 75mL 75 mL, U nivers (ISOVUE 06-24 Intravenou ity o f 370-500 mL) 05:00: 05:00 s, ONCE, 1 [place] injection 00 :00 dose, On Medica l 75 mL [facility] 06/24/23 at 0000, Routine ondansetron 2022- No [id number] 4mg 4 mg, Slow Univers (ZOFRAN 06-24 IV Push, ity of (PF)) 04:30: 04:26 ONCE, 1 [place] injection 4 00 :00 dose, On Medi kelsey mg [facility] 06/23/23 at 2330, TATIANA morpHINE (4 0 2022- No [id number] 4mg 4 mg, Slow Univers mg/mL) 06-24 IV Push, ity of injection 4 04:30: 04:27 ONCE, 1 [place] mg 00 :00 dose, On Medical [facility] 06/23/23 at 2330, STAT furosemide 2022-0 Yes [id number] 80mg Take 1 U nivers 80 mg 7-28 tablet by ity of tablet 00:00: mouth in [place] 00 the Medical morning. Branch amLODIPine 2022-0 Yes [id number] 5mg Take 1 U nivers 5 mg tablet 7-28 tablet by ity of 00:00: mouth in [place] the Medical morning. Branch Additional refills per specialist furosemide 2023-0 Yes [id number] 80mg Take 1 U nivers 80 mg 7-28 tablet by ity of tablet 00:00: mouth in [place] the Medical morning. Branch amLODIPine 2023-0 Yes [id number] 5mg Take 1 U nivers 5 mg tablet 7-28 tablet by ity of 00:00: mouth in [place] the Medical morning. Branch Additional refills per specialist furosemide 2023-0 Yes [id number] 80mg Take 1 U nivers 80 mg 7-28 tablet by ity of tablet 00:00: mouth in [place] the Medical morning. Branch amLODIPine 2023-0 Yes [id number] 5mg Take 1 U nivers 5 mg tablet 7-28 tablet by ity of 00:00: mouth in [place] the Medical morning. Branch Additional refills per specialist furosemide 2023-0 Yes [id number] 80mg Take 1 U nivers 80 mg 7-28 tablet by ity of tablet 00:00: mouth in [place] the Medical morning. Branch amLODIPine 2023-0 Yes [id number] 5mg Take 1 U nivers 5 mg tablet 7-28 tablet by ity of 00:00: mouth in [place] the Medical morning. Branch Additional refills per specialist furosemide 2023-0 Yes [id number] 80mg Take 1 U nivers 80 mg 7-28 tablet by ity of tablet 00:00: mouth in [place] the Medical morning. Branch amLODIPine 2023-0 Yes [id number] 5mg Take 1 U nivers 5 mg tablet 7-28 tablet by ity of 00:00: mouth in [place] the Medical morning. Branch Additional refills per specialist furosemide 2023-0 Yes [id number] 80mg Take 1 U nivers 80 mg 7-28 tablet by ity of tablet 00:00: mouth in [place] the Medical morning. Branch amLODIPine 2023-0 Yes [id number] 5mg Take 1 U nivers 5 mg tablet 7-28 tablet by ity of 00:00: mouth in [place] the Medical morning. Branch Additional refills per specialist furosemide 2023-0 Yes [id number] 80mg Take 1 U nivers 80 mg 7-28 tablet by ity of tablet 00:00: mouth in [place] the Medical morning. Branch amLODIPine 2022-0 Yes [id number] 5mg Take 1 U nivers 5 mg tablet 7-28 tablet by ity of 00:00: mouth in [place] the morning. Branch Additional refills per specialist furosemide 3-0 Yes [id number] 80mg Take 1 U nivers 80 mg 7-28 tablet by ity of tablet 00:00: mouth in [place] the morning. Branch amLODIPine 2022-0 Yes [id number] 5mg Take 1 U nivers 5 mg tablet 7-28 tablet by ity of 00:00: mouth in [place] the morning. Branch Additional refills per specialist furosemide 3-0 Yes [id number] 80mg Take 1 U nivers 80 mg 7-28 tablet by ity of tablet 00:00: mouth in [place] the morning. Branch amLODIPine 2022-0 Yes [id number] 5mg Take 1 U nivers 5 mg tablet 7-28 tablet by ity of 00:00: mouth in [place] the morning. Branch Additional refills per specialist pantoprazol 2022-0 Yes 40mg 40 mg, Univ ers e 7-06 Oral, BID, ity of (PROTONIX) 01:00: First dose [place] EC tablet 00 (after Medical 40 mg last Branch modificati on) on Sat05/15/23 at 1999, Until Discontinu ed, Routine furosemide 2022-0 Yes [id number] 80mg Take 1 U nivers 80 mg 7-06 tablet by ity of tablet 00:00: mouth in [place] the morning. Branch ciprofloxac 3-0 Yes [id number] 500mg Take 1 Univers in HCl 500 7-06 tablet by ity of mg tablet 00:00: mouth in [facility] [place] [facility] the Medical morning. Branch spironolact 3-0 Yes [id number] 200mg Take 2 [facility] one 100 mg 7-06 tablets by ity of tablet 00:00: mouth in [place] the Medical morning. Branch furosemide 2022-0 Yes [id number] 80mg Take 1 U nivers 80 mg 7-06 tablet by ity of tablet 00:00: mouth in [place] [address] the Medical morning. Branch ciprofloxac 3-0 Yes [id number] 500mg Take 1 Univers in HCl 500 7-06 tablet by ity of mg tablet 00:00: mouth in [facility] [place] [facility] 00 the Medical morning. Branch spironolact 2023-0 Yes [id number] 200mg Take 2 [facility] one 100 mg 7-06 tablets by ity of tablet 00:00: mouth in [place] 00 the Medical morning. Branch furosemide 3-0 Yes [id number] 80mg Take 1 U nivers 80 mg 7-06 tablet by ity of tablet 00:00: mouth in [place] 00 the Medical morning. Branch ciprofloxac 2023-0 Yes [id number] 500mg Take 1 Univers in HCl 500 7-06 tablet by ity of mg tablet 00:00: mouth in [facility] [place] [facility] 00 the Medical morning. Branch spironolact 3-0 Yes [id number] 200mg Take 2 [facility] one 100 mg 7-06 tablets by ity of tablet 00:00: mouth in [place] 00 the Medical morning. Branch furosemide 3-0 Yes [id number] 80mg Take 1 U nivers 80 mg 7-06 tablet by ity of tablet 00:00: mouth in [place] 00 the Medical morning. Branch ciprofloxac 3-0 Yes [id number] 500mg Take 1 Univers in HCl 500 7-06 tablet by ity of mg tablet 00:00: mouth in [facility] [place] [facility] 00 the Medical morning. Branch spironolact 3-0 Yes [id number] 200mg Take 2 [facility] one 100 mg 7-06 tablets by ity of tablet 00:00: mouth in [place] 00 the Medical morning. Branch ciprofloxac 3-0 Yes [id number] 500mg Take 1 Univers in HCl 500 7-06 tablet by ity of mg tablet 00:00: mouth in [facility] [place] [facility] 00 the Medical morning. Branch spironolact 2023-0 Yes [id number] 200mg Take 2 [facility] one 100 mg 7-06 tablets by ity of tablet 00:00: mouth in [place] 00 the Medical morning. Branch ciprofloxac 2023-0 Yes [id number] 500mg Take 1 Univers in HCl 500 7-06 tablet by ity of mg tablet 00:00: mouth in [facility] [place] [facility] 00 the Medical morning. Branch spironolact 2023-0 Yes [id number] 200mg Take 2 [facility] one 100 mg 7-06 tablets by ity of tablet 00:00: mouth in [place] 00 the Medical morning. Branch ciprofloxac 2023-0 Yes [id number] 500mg Take 1 Univers in HCl 500 7-06 tablet by ity of mg tablet 00:00: mouth in [facility] the Medical morning. Branch spironolact 2023-0 Yes [id number] 200mg Take 2 [facility] one 100 mg 7-06 tablets by ity of tablet 00:00: mouth in [place] 00 the Medical morning. Branch ciprofloxac 2023-0 Yes [id number] 500mg Take 1 Univers in HCl 500 7-06 tablet by ity of mg tablet 00:00: mouth in [facility] s 00 the Medical morning. Branch spironolact 2023-0 Yes [id number] 200mg Take 2 [facility] one 100 mg 7-06 tablets by ity of tablet 00:00: mouth in [place] 00 the Medical morning. Branch ciprofloxac 2023-0 3- No [id number] 500mg Take 1 Univers in HCl 500 7-06 08-16 tablet by ity of mg tablet 00:00: 00:00 mouth in [facility] as 00 :00 the Medical morning. Branch spironolact 2023-0 2023- No [id number] 200mg Take 2 [facility] one 100 mg 7-06 08-16 tablets by it y of tablet 00:00: 00:00 mouth in [place] 00 :00 the Medical morning. Branch ciprofloxac 2023-0 3- No [id number] 500mg Take 1 Univers in HCl 500 7-06 08-16 tablet by ity of mg tablet 00:00: 00:00 mouth in [facility] as 00 :00 the Medical morning. Branch spironolact 2023-0 2023- No [id number] 200mg Take 2 [facility] one 100 mg 7-06 08-16 tablets by it y of tablet 00:00: 00:00 mouth in [place] 00 :00 the Medical morning. Branch furosemide 2023-0 2023- No [id number] 80mg Take 1 Univers 80 mg 7- 07-28 tablet by ity of tablet 00:00: 00:00 mouth in [place] 00 :00 the Medical morning. Branch furosemide 2023-0 2023- No [id number] 80mg Take 1 [facility] 80 mg 7- 07-28 tablet by ity of tablet 00:00: 00:00 mouth in [place] 00 :00 the Medical morning. Branch furosemide 2023-0 2023- No [id number] 80mg Take 1 Univers 80 mg 7- 07-28 tablet by ity of tablet 00:00: 00:00 mouth in 00 :00 the Medical morning. Branch spironolact 2022-0 2022- No [id number] 200mg Take 2 [facility] one 100 mg 05-16 tablets by it y of tablet 00:00: 00:00 mouth in 00 :00 the Medical morning. Branch ciprofloxac 2022-0 2022- No [id number] 500mg Take 1 Univers in HCl 500 05-16 tablet by ity of mg tablet 00:00: 00:00 mouth in [facility] 00 :00 the Medical morning. Branch spironolact 2022-0 2022- No 200mg Take 2 [facility] one 100 mg 05-16 tablets by it y of tablet 00:00: 00:00 mouth in [place] 00 :00 the Medical morning. Branch spironolact 0 Yes 200mg 200 mg, Un dante one 7-05 Oral, ity of (ALDACTONE) 14:00: DAILY, [place] tablet 200 00 First dose Med ical mg (after [place] last modificati on) on Sat05/15/23 at 0900, Until Discontinu ed, Routine furosemide 2022-0 Yes 80mg 80 mg, Unive rs (LASIX) 7-05 Oral, ity of tablet 80 14:00: DAILY, [place] mg 00 First dose Medical (after Branch last modificati on) on Sat05/15/23 at 0900, Until Discontinu ed, Routine ferrous 3-0 Yes [id number] 325mg Take 1 Un dante sulfate 7-05 tablet by ity of (IRON) 325 00:00: mouth [place] mg (65 mg 00 every Medical iron) other day. Branch tablet rifAXIMin 2022-0 Yes 550mg Take 1 U nivers 550 mg 7-05 tablet by ity of tablet 00:00: mouth in 00 the Medical morning Branch and 1 tablet in the evening. lactulose 2022-0 Yes [id number] 45mL Take 45 mL Univers 10 gram/15 7-05 by mouth ity o f mL solution 00:00: [place] morning Medical and 45 mL Branch at noon and 45 mL in the evening. ferrous 2023-0 Yes [id number] 325mg Take 1 [place] sulfate 7-05 tablet by ity of (IRON) 325 00:00: mouth [place] mg (65 mg 00 every Medical iron) other day. Branch tablet rifAXIMin 2022-0 Yes [id number] 550mg Take 1 U nivers 550 mg 7-05 tablet by ity of tablet 00:00: mouth in [place] 00 the Medical morning Branch and 1 tablet in the evening. lactulose 2023-0 Yes [id number] 45mL Take 45 mL Univers 10 gram/15 7-05 by mouth ity o f mL solution 00:00: in the [facility] morning Medical and 45 mL Branch at noon and 45 mL in the evening. ferrous 2023-0 Yes [id number] 325mg Take 1 [place] sulfate 7-05 tablet by ity of (IRON) 325 00:00: mouth [place] mg (65 mg 00 every Medical iron) other day. Branch tablet rifAXIMin 2022-0 Yes [id number] 550mg Take 1 U nivers 550 mg 7-05 tablet by ity of tablet 00:00: mouth in [place] the Medical morning Branch and 1 tablet in the evening. lactulose 3-0 Yes [id number] 45mL Take 45 mL Univers 10 gram/15 7-05 by mouth ity o f mL solution 00:00: in the [facility] morning Medical and 45 mL Branch at noon and 45 mL in the evening. ferrous 3-0 Yes [id number] 325mg Take 1 [place] sulfate 7-05 tablet by ity of (IRON) 325 00:00: mouth [place] mg (65 mg 00 every Medical iron) other day. Branch tablet rifAXIMin 2022-0 Yes [id number] 550mg Take 1 U nivers 550 mg 7-05 tablet by ity of tablet 00:00: mouth in [place] the Medical morning Branch and 1 tablet in the evening. lactulose 3-0 Yes [id number] 45mL Take 45 mL Univers 10 gram/15 7-05 by mouth ity o f mL solution 00:00: in the [facility] morning Medical and 45 mL Branch at noon and 45 mL in the evening. ferrous 2023-0 Yes [id number] 325mg Take 1 [place] sulfate 7-05 tablet by ity of (IRON) 325 00:00: mouth [place] mg (65 mg 00 every Medical iron) other day. Branch tablet rifAXIMin 2022-0 Yes [id number] 550mg Take 1 U nivers 550 mg 7-05 tablet by ity of tablet 00:00: mouth in [place] 00 the Medical morning Branch and 1 tablet in the evening. lactulose 2023-0 Yes [id number] 45mL Take 45 mL Univers 10 gram/15 7-05 by mouth ity o f mL solution 00:00: in [facility] morning Medical and 45 mL Branch at noon and 45 mL in the evening. ferrous 2023-0 Yes [id number] 325mg Take 1 [place] sulfate 7-05 tablet by ity of (IRON) 325 00:00: mouth [place] mg (65 mg 00 every Medical iron) other day. Branch tablet rifAXIMin 2022-0 Yes [id number] 550mg Take 1 U nivers 550 mg 7-05 tablet by ity of tablet 00:00: mouth in [place] 00 the Medical morning Branch and 1 tablet in the evening. lactulose 2022-0 Yes [id number] 45mL Take 45 mL Univers 10 gram/15 7-05 by mouth ity o f mL solution 00:00: in the [facility] morning Medical and 45 mL Branch at noon and 45 mL in the evening. ferrous 2023-0 Yes [id number] 325mg Take 1 [place] sulfate 7-05 tablet by ity of (IRON) 325 00:00: mouth [place] mg (65 mg 00 every Medical iron) other day. Branch tablet rifAXIMin 2022-0 Yes [id number] 550mg Take 1 U nivers 550 mg 7-05 tablet by ity of tablet 00:00: mouth in [place] 00 the Medical morning Branch and 1 tablet in the evening. lactulose 3-0 Yes [id number] 45mL Take 45 mL Univers 10 gram/15 7-05 by mouth ity o f mL solution 00:00: in the [facility] s 00 morning Medical and 45 mL Branch at noon and 45 mL in the evening. ferrous 2023-0 Yes [id number] 325mg Take 1 [place] sulfate 7-05 tablet by ity of (IRON) 325 00:00: mouth [place] mg (65 mg 00 every Medical iron) other day. Branch tablet rifAXIMin 2023-0 Yes [id number] 550mg Take 1 U nivers 550 mg 7-05 tablet by ity of tablet 00:00: mouth in [place] 00 the Medical morning Branch and 1 tablet in the evening. lactulose 2023-0 Yes [id number] 45mL Take 45 mL Univers 10 gram/15 7-05 by mouth ity o f mL solution 00:00: in the [facility] morning Medical and 45 mL Branch at noon and 45 mL in the evening. ferrous 2023-0 Yes [id number] 325mg Take 1 Un [place] sulfate 7-05 tablet by ity of (IRON) 325 00:00: mouth [place] mg (65 mg 00 every Medical iron) other day. Branch tablet rifAXIMin 3-0 Yes [id number] 550mg Take 1 U nivers 550 mg 7-05 tablet by ity of tablet 00:00: mouth in [place] 00 the Medical morning Branch and 1 tablet in the evening. lactulose 2023-0 Yes [id number] 45mL Take 45 mL Univers 10 gram/15 7-05 by mouth ity o f mL solution 00:00: in the [facility] morning Medical and 45 mL Branch at noon and 45 mL in the evening. ferrous 2023-0 Yes [id number] 325mg Take 1 [place] sulfate 7-05 tablet by ity of (IRON) 325 00:00: mouth [place] mg (65 mg 00 every Medical iron) other day. Branch tablet rifAXIMin 2022-0 Yes [id number] 550mg Take 1 U nivers 550 mg 7-05 tablet by ity of tablet 00:00: mouth in [place] the Medical morning Branch and 1 tablet in the evening. lactulose 3-0 Yes [id number] 45mL Take 45 mL Univers 10 gram/15 7-05 by mouth ity o f mL solution 00:00: in the [facility] morning Medical and 45 mL Branch at noon and 45 mL in the evening. ferrous 2023-0 Yes [id number] 325mg Take 1 [place] sulfate 7-05 tablet by ity of (IRON) 325 00:00: mouth [place] mg (65 mg 00 every Medical iron) other day. Branch tablet rifAXIMin 2023-0 Yes [id number] 550mg Take 1 U nivers 550 mg 7-05 tablet by ity of tablet 00:00: mouth in [place] [address] the Medical morning Branch and 1 tablet in the evening. lactulose 2023-0 Yes [id number] 45mL Take 45 mL Univers 10 gram/15 7-05 by mouth ity o f mL solution 00:00: in the [facility] morning Medical and 45 mL Branch at noon and 45 mL in the evening. ferrous 2023-0 Yes [id number] 325mg Take 1 [place] sulfate 7-05 tablet by ity of (IRON) 325 00:00: mouth [place] mg (65 mg 00 every Medical iron) other day. Branch tablet rifAXIMin 2023-0 Yes [id number] 550mg Take 1 U nivers 550 mg 7-05 tablet by ity of tablet 00:00: mouth in [place] 00 the Medical morning Branch and 1 tablet in the evening. lactulose 2023-0 Yes [id number] 45mL Take 45 mL Univers 10 gram/15 7-05 by mouth ity o f mL solution 00:00: in the [facility] morning Medical and 45 mL Branch at noon and 45 mL in the evening. ferrous 2023-0 Yes [id number] 325mg Take 1 [place] sulfate 7-05 tablet by ity of (IRON) 325 00:00: mouth [place] mg (65 mg 00 every Medical iron) other day. Branch tablet rifAXIMin 2023-0 Yes [id number] 550mg Take 1 U nivers 550 mg 7-05 tablet by ity of tablet 00:00: mouth in [place] 00 the Medical morning Branch and 1 tablet in the evening. lactulose 2023-0 Yes [id number] 45mL Take 45 mL Univers 10 gram/15 7-05 by mouth ity o f mL solution 00:00: in the [facility] morning Medical and 45 mL Branch at noon and 45 mL in the evening. lactulose 2023-0 2022- No [id number] 45mL Take 45 mL Univers 10 gram/15 7-05 07-05 by mouth ity of mL solution 00:00: 00:00 in the [facility] 00 :00 morning Medical and 45 mL Branch at noon and 45 mL in the evening. rifAXIMin 2023-0 2022- No [id number] 550mg Take 1 Univers 550 mg 7-05 07-05 tablet by ity of tablet 00:00: 00:00 mouth in [place] 00 :00 the Medical morning Branch and 1 tablet in the evening. rifAXIMin 2023-0 202- No [id number] 550mg Take 1 Univers 550 mg 7-05 07-05 tablet by ity of tablet 00:00: 00:00 mouth in [place] 00 :00 the Medical morning Branch and 1 tablet in the evening. lactulose Yes 45mL 45 mL, Univer s (CEPHULAC) 05-14 Oral, TID, ity of solution 45 19:00: First dose [place] mL 00 (after Medical last Branch modificati on) on Sat05/14/23 at 1400, Until Discontinu ed, Routine furosemide 2022- No 20mg 20 mg, Univ ers (LASIX) 05-14 Oral, ity of tablet 20 15:30: 18:00 ONCE, 1 [place] mg 00 :00 dose, On [facility] Sat05/14/23 Branch at 1030, Routine iron 2022- No 1000mg 1,000 mg, Unive rs dextran 05-14 IV ity of (INFED) 14:30: 02:52 Infusion, [place] 1,000 mg in 00 :00 ONCE, 1 Medic al NaCl 0.9% dose, On Branch (NS) 500 mL Sat05/14/23 IV infusion at 0930, Administer over 1.5 Hours, 500 mL albumin 2022- No 25g 25 g, IV Unive rs (ALBUMINAR 05-14 Infusion, ity of 25%) 25 % 13:30: 14:33 ONCE, 1 [place] injection 00 :00 dose, On Medica l 25 g [facility] 05/14/23 Branch at 0830, 100 mL
Kylie cation: HEPATORENA L SYNDROME (DIAGNOSIS )
Comme nts: Dosin-8 g/L of ascitic fluid removed atorvastati Yes 20mg 20 mg, Univ ers n (LIPITOR) 05-14 Oral, QHS, it y of tablet 20 02:00: First dose [place] mg 00 on Sat05/13/23 at Branch 2100, Until Discontinu ed, Routine albumin 2022-0 Yes IV Univers (ALBUMINAR 05-13 Infusion, ity of 25%) 25 % 23:00: CONTINUOUS [place] injection 00 PRN, Medical Starting Branch on Sat05/13/23 at 1800, Until Discontinu ed, Intra-op ondansetron Yes 4mg 4 mg, Unive rs (ZOFRAN) 05-13 Oral, TID, ity o f tablet 4 mg 19:00: First dose [place] 00 on Sat Medical 05/13/23 at Branch 1400, Until Discontinu ed, Routine HYDROcodone Yes 1{tbl} 1 tablet, Univers -acetaminop 05-13 Oral, ity of hen (NORCO) 17:32: Q6HPRN, [place] 10-325 mg 27 Starting Medica l tablet 1 on Sat Branch tablet 05/13/23 at 1232, Until Discontinu ed, Routine, Pain (scale 7-10) amLODIPine Yes 5mg 5 mg, Univer s (NORVASC) 05-13 Oral, ity of tablet 5 mg 14:00: DAILY, [place] 00 First dose Medical (after Branch last modificati on) on Sat05/13/23 at 0900, Until Discontinu ed, Routine colchicine Yes .6mg 0.6 mg, Univ ers (COLCRYS) 05-13 Oral, QAM, ity of tablet 0.6 14:00: First dose [place] mg 00 on Sat Medical 05/13/23 at Branch 0900, Until Discontinu ed, Routine ciprofloxac No 500mg 500 mg, U nivers in HCl 05-13 Oral, ity of (CIPRO) 14:00: 13:59 DAILY, 10 [place] tablet 500 00 :00 doses, Medical mg First dose Branch on Sat05/13/23 at 0900, Last dose on Sat05/22/23 at 0900, TATIANA
Re ason for Anti-Infec tive: Empiric Non-Surgic al Prophylaxi s
Durat ion of therapy: 5 days pantoprazol 2022- No 40mg 40 mg, Uni vers e 05-13 Oral, QAM, ity of (PROTONIX) 14:00: 14:25 First dose [place] EC tablet 00 :20 on [facility] Medical 40 mg 05/13/23 at Branch 0900, Until Discontinu ed, Routine spironolact 2022- No 100mg 100 mg, U nivers one 05-13 Oral, ity of (ALDACTONE) 14:00: 14:33 DAILY, [place] tablet 100 00 :44 First dose Med ical mg on [facility] 05/13/23 at 0900, Until Discontinu ed, Routine furosemide 2022- No 40mg 40 mg, Univ ers (LASIX) 05-13 Oral, ity of tablet 40 14:00: 14:33 DAILY, [place] mg 00 :44 First dose Medical on [facility] 05/13/23 at 0900, Until Discontinu ed, Routine rifAXIMin Yes 550mg 550 mg, Univ ers (XIFAXAN) 05-13 Oral, BID, ity of tablet 550 13:00: First dose [place] mg [address] [facility] 05/13/23 at Branch 0800, Until Discontinu ed, Routine
Reason for Anti-Infec tive: Documented Infection< br>Documen willow Infection Site: Abdominal< br>Duratio n of Therapy: 7 days apixaban Yes 5mg 5 mg, Univers (ELIQUIS) 05-13 Oral, BID, ity of tablet 5 mg 13:00: First dose [place] [address] [facility] 05/13/23 at Branch 0800, Until Discontinu ed, Routine
Indicatio ns: DVT/PE lactulose 2022- No 45mL 45 mL, Unive rs (CEPHULAC) 05-13 Oral, TID, it y of solution 45 13:00: 14:33 First dose [place] mL 00 :[address] [facility] 05/13/23 at Branch 0800, Until Discontinu ed, Routine acetaminoph Yes 650mg 650 mg, Un dante en 05-13 Oral, ity of (TYLENOL) 08:48: Q6HPRN, [place] tablet 650 02 Starting Medic al mg on [facility] 05/13/23 at 0348, Until Discontinu ed, Routine, Pain (scale 1-3) morpHINE (4 2022- No 4mg 4 mg, Slow Univers mg/mL) 05-13 IV Push, ity of injection 4 07:00: 05:52 ONCE, 1 [place] mg 00 :00 dose, On Medical 05/13/23 Branch at 0200, STAT ondansetron 2022-0 2023- No 4mg 4 mg, Slow Univers (ZOFRAN 05-13 07-03 IV Push, ity of (PF)) 06:00: 05:52 ONCE, 1 [place] injection 4 00 :00 dose, On Medi [place] mg 05/13/23 Branch at 0100, [place] colchicine 2022-0 Yes .6mg Take 1 Unive rs 0.6 mg 6-17 tablet by ity of tablet 00:00: mouth [place] 00 every Medical morning. Branch colchicine 2022-0 Yes .6mg Take 1 Unive rs 0.6 mg 6-17 tablet by ity of tablet 00:00: mouth [place] 00 every Medical morning. Branch colchicine 2022-0 Yes .6mg Take 1 Unive rs 0.6 mg 6-17 tablet by ity of tablet 00:00: mouth [place] 00 every Medical morning. Branch colchicine 2022-0 Yes .6mg Take 1 Unive rs 0.6 mg 6-17 tablet by ity of tablet 00:00: mouth [place] 00 every Medical morning. Branch colchicine 2022-0 Yes .6mg Take 1 Unive rs 0.6 mg 6-17 tablet by ity of tablet 00:00: mouth [place] 00 every Medical morning. Branch colchicine 2022-0 Yes .6mg Take 1 Unive rs 0.6 mg 6-17 tablet by ity of tablet 00:00: mouth [place] 00 every Medical morning. Branch colchicine 2022-0 Yes .6mg Take 1 Unive rs 0.6 mg 6-17 tablet by ity of tablet 00:00: mouth [place] 00 every Medical morning. Branch colchicine 2022-0 Yes .6mg Take 1 Unive rs 0.6 mg 6-17 tablet by ity of tablet 00:00: mouth [place] 00 every Medical morning. Branch colchicine 2022-0 Yes .6mg Take 1 Unive rs 0.6 mg 6-17 tablet by ity of tablet 00:00: mouth [place] 00 every Medical morning. Branch colchicine 2022-0 Yes .6mg Take 1 Unive rs 0.6 mg 6-17 tablet by ity of tablet 00:00: mouth [place] 00 every Medical morning. Branch colchicine 2022-0 Yes .6mg Take 1 Unive rs 0.6 mg 6-17 tablet by ity of tablet 00:00: mouth [place] 00 every Medical morning. Branch colchicine 2023-0 Yes .6mg Take 1 Unive rs 0.6 mg 6-17 tablet by ity of tablet 00:00: mouth [place] 00 every Medical morning. Branch colchicine 2023-0 Yes .6mg Take 1 Unive rs 0.6 mg 6-17 tablet by ity of tablet 00:00: mouth [place] 00 every Medical morning. Branch colchicine 2023-0 Yes .6mg Take 1 Unive rs 0.6 mg 6-17 tablet by ity of tablet 00:00: mouth [place] 00 every Medical morning. Branch colchicine 2023-0 Yes .6mg Take 1 Unive rs 0.6 mg 6-17 tablet by ity of tablet 00:00: mouth [place] 00 every Medical morning. Branch predniSONE 3-0 3- No [id number] 5mg Take 1 Univers 5 mg tablet 6-01 13-24 9107 tablet by it y of 00:00: 00:00 mouth in [place] 00 :00 the Medical morning. Branch predniSONE 3-0 2022- No [id number] 10mg Take 1 Univers 10 mg - 05-24 9107 tablet by ity of tablet 00:00: 00:00 mouth in [place] 00 :00 the Medical morning. Branch apixaban 5 2022-0 3- No [id number] 5mg Take 1 Univ ers mg tablet 04-09-24 tablet by ity of 00:00: 00:00 mouth in [place] 00 :00 the Medical morning Branch and 1 tablet in the evening. Indication s: history of deep vein thrombosis predniSONE 2022-0 3- No [id number] 20mg Take 1 [facility] 20 mg -07 04-24 9107 tablet by ity of tablet 00:00: 00:00 mouth in [place] 00 :00 the Medical morning. Branch pantoprazol 2023-0 Yes 40mg Take 1 Univ ers e 40 mg EC 5-26 tablet by ity of tablet 00:00: mouth [place] 00 every Medical morning. Branch pantoprazol 2023-0 Yes 40mg Take 1 Univ ers e 40 mg EC 5-26 tablet by ity of tablet 00:00: mouth [place] 00 every Medical morning. Branch pantoprazol 2023-0 Yes 40mg Take 1 Univ ers e 40 mg EC 5-26 tablet by ity of tablet 00:00: mouth [place] 00 every Medical morning. Branch pantoprazol 2023-0 Yes 40mg Take 1 Univ ers e 40 mg EC 5-26 tablet by ity of tablet 00:00: mouth [place] 00 every Medical morning. Branch pantoprazol 2023-0 Yes 40mg Take 1 Univ ers e 40 mg EC 5-26 tablet by ity of tablet 00:00: mouth [place] 00 every Medical morning. Branch pantoprazol 2023-0 Yes 40mg Take 1 Univ ers e 40 mg EC 5-26 tablet by ity of tablet 00:00: mouth [place] 00 every Medical morning. Branch pantoprazol 2023-0 Yes 40mg Take 1 Univ ers e 40 mg EC 5-26 tablet by ity of tablet 00:00: mouth [place] 00 every Medical morning. Branch pantoprazol 2023-0 Yes 40mg Take 1 Univ ers e 40 mg EC 5-26 tablet by ity of tablet 00:00: mouth [place] 00 every Medical morning. Branch pantoprazol 2023-0 Yes 40mg Take 1 Univ ers e 40 mg EC 5-26 tablet by ity of tablet 00:00: mouth [place] 00 every Medical morning. Branch pantoprazol 2023-0 Yes 40mg Take 1 Univ ers e 40 mg EC 5-26 tablet by ity of tablet 00:00: mouth [place] 00 every Medical morning. Branch pantoprazol 2023-0 Yes 40mg Take 1 Univ ers e 40 mg EC 5-26 tablet by ity of tablet 00:00: mouth [place] 00 every Medical morning. Branch pantoprazol 2023-0 Yes 40mg Take 1 Univ ers e 40 mg EC 5-26 tablet by ity of tablet 00:00: mouth [place] 00 every Medical morning. Branch pantoprazol 2023-0 Yes 40mg Take 1 Univ ers e 40 mg EC 5-26 tablet by ity of tablet 00:00: mouth [place] 00 every Medical morning. Branch pantoprazol 2023-0 Yes 40mg Take 1 Univ ers e 40 mg EC 5-26 tablet by ity of tablet 00:00: mouth [place] 00 every Medical morning. Branch pantoprazol 2023-0 Yes 40mg Take 1 Univ ers e 40 mg EC 5-26 tablet by ity of tablet 00:00: mouth [place] 00 every Medical morning. Branch predniSONE 2023-0 2023- No [id number] Take 3 Univers 10 mg 5-25 -08 9107 tablets by ity of tablet 00:00: 04:59 mouth [place] 00 :00 daily for Medical 4 days, Branch THEN 2 tablets daily for 3 days, THEN 1 tablet daily for 3 days, THEN 0.5 tablets daily for 3 days. predniSONE 2022-2022- No [id number] Take 3 Univers 10 mg 5-25 06-08 9107 tablets by ity of tablet 00:00: 04:59 mouth [place] 00 :00 daily for Medical 4 days, Branch THEN 2 tablets daily for 3 days, THEN 1 tablet daily for 3 days, THEN 0.5 tablets daily for 3 days. predniSONE 2022-2022- No [id number] Take 3 Univers 10 mg 5-25 06-08 9107 tablets by ity of tablet 00:00: 04:59 mouth [place] 00 :00 daily for Medical 4 days, Branch THEN 2 tablets daily for 3 days, THEN 1 tablet daily for 3 days, THEN 0.5 tablets daily for 3 days. predniSONE 2022-2022- No [id number] Take 3 Univers 10 mg 5-25 06-08 9107 tablets by ity of tablet 00:00: 04:59 mouth [place] 00 :00 daily for Medical 4 days, Branch THEN 2 tablets daily for 3 days, THEN 1 tablet daily for 3 days, THEN 0.5 tablets daily for 3 days. ciprofloxac 2022- No [id number] 500mg Take 1 Univers in HCl 500 5-25 05-24 tablet by ity of mg tablet 00:00: 00:00 mouth in [facility] as 00 :00 the Medical morning. Branch colchicine 2022-2022- No [id number] .6mg Take 1 Univers 0.6 mg 5-25 05-24 9107 tablet by ity of tablet 00:00: 00:00 mouth in [place] 00 :00 the Medical morning. Branch pantoprazol 2022- No [id number] 40mg Take 1 Univers e 40 mg EC 5-25 05-24 tablet by ity of tablet 00:00: 00:00 mouth in [place] 00 :00 the Medical morning. Branch predniSONE 2022- No [id number] 30mg Take 3 Univers 10 mg 5-25 05-24 9107 tablets by ity of tablet 00:00: 00:00 mouth in [place] 00 :00 the Medical morning. Branch colchicine 2022-0 202- No [id number] .6mg Take 1 Univers 0.6 mg 5-25 05-24 9107 tablet by ity of tablet 00:00: 00:00 mouth in [place] 00 :00 [facility] for 14 days. colchicine 2022-0 Yes .6mg 0.6 mg, Univ ers (COLCRYS) 5-24 Oral, ity of tablet 0.6 14:00: DAILY, [facility] 00 First dose Medical on Sat04/03/23 at 0900, Until Discontinu ed, Routine apixaban 5 2022-0 Yes 5523 10mg Take 2 Unive rs mg tablet 5-24 tablets by ity of 00:00: mouth in [address] and 2 tablets in the evening. Take 2 tablets by mouth in the morning and 2 in the evening until 04/08, starting 04/09, take one tablet in the morning and one in the afternoon Indication s: history of deep vein thrombosis apixaban 2022-0 Yes 5523 10mg Take 2 Unive rs mg tablet 5-24 tablets by ity of 00:00: mouth in [address] and 2 tablets in the evening. Take 2 tablets by mouth in the morning and 2 in the evening until 04/08, starting 04/09, take one tablet in the morning and one in the afternoon Indication s: history of deep vein thrombosis apixaban 2022-0 Yes 5523 10mg Take 2 Unive rs mg tablet 5-24 tablets by ity of 00:00: mouth in [address] and 2 tablets in the evening. Take 2 tablets by mouth in the morning and 2 in the evening until 04/08, starting 04/09, take one tablet in the morning and one in the afternoon Indication s: history of deep vein thrombosis apixaban 5 2022-0 Yes 5523 10mg Take 2 Unive rs mg tablet 5-24 tablets by ity of 00:00: mouth in [address] and 2 tablets in the evening. Take 2 tablets by mouth in the morning and 2 in the evening until 04/08, starting 04/09, take one tablet in the morning and one in the afternoon Indication s: history of deep vein thrombosis apixaban 2022-0 Yes 5523 10mg Take 2 Unive rs mg tablet 5-24 tablets by ity of 00:00: mouth in [place] 00 the Medical morning Branch and 2 tablets in the evening. Take 2 tablets by mouth in the morning and 2 in the evening until 04/08, starting 04/09, take one tablet in the morning and one in the afternoon Indication s: history of deep vein thrombosis spironolact 0 Yes TAKE ONE Un dante one 100 mg 5-24 (1) TABLET ity of tablet 00:00: BY MOUTH [place] 00 IN THE Medical MORNING. Branch furosemide 2022-0 Yes TAKE ONE Uni vers 40 mg 5-24 (1) TABLET ity of tablet 00:00: BY MOUTH [place] 00 IN THE Medical MORNING. Branch apixaban 5 2022-0 Yes 5523 10mg Take 2 Unive rs mg tablet 5-24 tablets by ity of 00:00: mouth in [place] 00 the Medical morning Branch and 2 tablets in the evening. Take 2 tablets by mouth in the morning and 2 in the evening until 04/08, starting 04/09, take one tablet in the morning and one in the afternoon Indication s: history of deep vein thrombosis spironolact 0 Yes TAKE ONE Un dante one 100 mg 5-24 (1) TABLET ity of tablet 00:00: BY MOUTH [place] 00 IN THE Medical MORNING. Branch furosemide 2022-0 Yes TAKE ONE Uni vers 40 mg 5-24 (1) TABLET ity of tablet 00:00: BY MOUTH [place] 00 IN THE Medical MORNING. Branch apixaban 5 2022-0 Yes 5523 10mg Take 2 Unive rs mg tablet 5-24 tablets by ity of 00:00: mouth in [place] 00 the Medical morning Branch and 2 tablets in the evening. Take 2 tablets by mouth in the morning and 2 in the evening until 04/08, starting 04/09, take one tablet in the morning and one in the afternoon Indication s: history of deep vein thrombosis apixaban 5 2022-0 Yes 5523 10mg Take 2 Unive rs mg tablet 5-24 tablets by ity of 00:00: mouth in [place] [id number] the Medical morning Branch and 2 tablets in the evening. Take 2 tablets by mouth in the morning and 2 in the evening until 04/08, starting 04/09, take one tablet in the morning and one in the afternoon Indication s: history of deep vein thrombosis apixaban 5 2022-0 Yes 5523 10mg Take 2 Unive rs mg tablet 5-24 tablets by ity of 00:00: mouth in [address] and 2 tablets in the evening. Take 2 tablets by mouth in the morning and 2 in the evening until 04/08, starting 04/09, take one tablet in the morning and one in the afternoon Indication s: history of deep vein thrombosis apixaban 2022-0 Yes 5523 10mg Take 2 Unive rs mg tablet 5-24 tablets by ity of 00:00: mouth in [address] and 2 tablets in the evening. Take 2 tablets by mouth in the morning and 2 in the evening until 04/08, starting 04/09, take one tablet in the morning and one in the afternoon Indication s: history of deep vein thrombosis apixaban 5 2022-0 Yes 5523 10mg Take 2 Unive rs mg tablet 5-24 tablets by ity of 00:00: mouth in [address] and 2 tablets in the evening. Take 2 tablets by mouth in the morning and 2 in the evening until 04/08, starting 04/09, take one tablet in the morning and one in the afternoon Indication s: history of deep vein thrombosis apixaban 2022-0 Yes 5523 10mg Take 2 Unive rs mg tablet 5-24 tablets by ity of 00:00: mouth in [address] and 2 tablets in the evening. Take 2 tablets by mouth in the morning and 2 in the evening until 04/08, starting 04/09, take one tablet in the morning and one in the afternoon Indication s: history of deep vein thrombosis apixaban 2022-0 Yes 5523 10mg Take 2 Unive rs mg tablet 5-24 tablets by ity of 00:00: mouth in [address] and 2 tablets in the evening. Take 2 tablets by mouth in the morning and 2 in the evening until 04/08, starting 04/09, take one tablet in the morning and one in the afternoon Indication s: history of deep vein thrombosis apixaban 5 2022-0 Yes 5523 10mg Take 2 Unive rs mg tablet 5-24 tablets by ity of 00:00: mouth in [address] and 2 tablets in the evening. Take 2 tablets by mouth in the morning and 2 in the evening until 04/08, starting 04/09, take one tablet in the morning and one in the afternoon Indication s: history of deep vein thrombosis apixaban 5 2022-0 Yes 5523 10mg Take 2 Unive rs mg tablet 5-24 tablets by ity of 00:00: mouth in [address] and 2 tablets in the evening. Take 2 tablets by mouth in the morning and 2 in the evening until 04/08, starting 04/09, take one tablet in the morning and one in the afternoon Indication s: history of deep vein thrombosis apixaban 5 2022-0 Yes 5523 10mg Take 2 Unive rs mg tablet 5-24 tablets by ity of 00:00: mouth in [address] and 2 tablets in the evening. Take 2 tablets by mouth in the morning and 2 in the evening until 04/08, starting 04/09, take one tablet in the morning and one in the afternoon Indication s: history of deep vein thrombosis apixaban 5 2022-0 Yes 5523 10mg Take 2 Unive rs mg tablet 5-24 tablets by ity of 00:00: mouth in [address] and 2 tablets in the evening. Take 2 tablets by mouth in the morning and 2 in the evening until 04/08, starting 04/09, take one tablet in the morning and one in the afternoon Indication s: history of deep vein thrombosis apixaban 5 2022-0 Yes 5523 10mg Take 2 Unive rs mg tablet 5-24 tablets by ity of 00:00: mouth in [address] and 2 tablets in the evening. Take 2 tablets by mouth in the morning and 2 in the evening until 04/08, starting 04/09, take one tablet in the morning and one in the afternoon Indication s: history of deep vein thrombosis apixaban 5 2022-0 Yes 5523 10mg Take 2 Unive rs mg tablet 5-24 tablets by ity of 00:00: mouth in [address] and 2 tablets in the evening. Take 2 tablets by mouth in the morning and 2 in the evening until 04/08, starting 04/09, take one tablet in the morning and one in the afternoon Indication s: history of deep vein thrombosis spironolact 2022-0 2022- No TAKE ONE U nivers one 100 mg 5-24 07-05 (1) TABLET it y of tablet 00:00: 00:00 BY MOUTH [place] 00 :00 IN THE Medical MORNING. Branch furosemide 2022-0 2022- No TAKE ONE Un dante 40 mg 5-24 07-05 (1) TABLET ity of tablet 00:00: 00:00 BY MOUTH [place] 00 :00 IN THE Medical MORNING. Branch rifAXIMin 2022-0 2022- No [id number] 550mg Take 1 [facility] 550 mg 5-24 06-24 tablet by ity of tablet 00:00: 04:59 mouth in [place] 00 :[address] [facility] morning Branch and 1 tablet in the evening. Do all this for 30 days. ciprofloxac 2022-0 2022- No [id number] 500mg Take 1 Univers in HCl 500 5-24 06-24 tablet by ity of mg tablet 00:00: 04:59 mouth in [facility] as 00 :00 the [facility] for 30 days. rifAXIMin 2022-0 2022- No [id number] 550mg Take 1 Univers 550 mg 5-24 06-24 tablet by ity of tablet 00:00: 04:59 mouth in [place] 00 :00 the [facility] and 1 tablet in the evening. Do all this for 30 days. ciprofloxac 2022-0 2022- No [id number] 500mg Take 1 Univers in HCl 500 5-24 06-24 tablet by ity of mg tablet 00:00: 04:59 mouth in [facility] as 00 :00 the [facility] for 30 days. rifAXIMin 2022-0 2022- No [id number] 550mg Take 1 Univers 550 mg 5-24 06-24 tablet by ity of tablet 00:00: 04:59 mouth in [place] 00 :00 the [facility] and 1 tablet in the evening. Do all this for 30 days. ciprofloxac 2022-0 2022- No [id number] 500mg Take 1 Univers in HCl 500 5-24 06-24 tablet by ity of mg tablet 00:00: 04:59 mouth in [facility] as 00 :00 the [facility] for 30 days. rifAXIMin 2022-0 2022- No [id number] 550mg Take 1 Univers 550 mg 5-24 06-24 tablet by ity of tablet 00:00: 04:59 mouth in [place] 00 :00 the [facility] and 1 tablet in the evening. Do all this for 30 days. ciprofloxac 2022-2022- No [id number] 500mg Take 1 Univers in HCl 500 5-24 -24 tablet by ity of mg tablet 00:00: 04:59 mouth in [place] 00 :00 the Medical morning Branch for 30 days. ondansetron 2022-2022- No [id number] 4mg Take 1 Univers (ZOFRAN) 4 5-24 06-08 tablet by ity of mg tablet 00:00: 04:59 mouth [place] 00 :00 every 8 Medical (eight) Branch hours as needed for Nausea and Vomiting (N/V) for up to 14 days. ondansetron 2022-0 2022- No [id number] 4mg Take 1 Univers (ZOFRAN) 4 5-24 06-08 tablet by ity of mg tablet 00:00: 04:59 mouth [place] 00 :00 every 8 Medical (eight) Branch hours as needed for Nausea and Vomiting (N/V) for up to 14 days. ondansetron 2022-0 2022- No [id number] 4mg Take 1 Univers (ZOFRAN) 4 -24 06-08 tablet by ity of mg tablet 00:00: 04:59 mouth [place] 00 :00 every 8 Medical (eight) Branch hours as needed for Nausea and Vomiting (N/V) for up to 14 days. ondansetron 2022-0 2022- No [id number] 4mg Take 1 Univers (ZOFRAN) 4 5-24 06-08 tablet by ity of mg tablet 00:00: 04:59 mouth [place] 00 :00 every 8 Medical (eight) Branch hours as needed for Nausea and Vomiting (N/V) for up to 14 days. colchicine 2022-2022- No [id number] .6mg Take 1 Univers 0.6 mg 5-24 - 9107 tablet by ity of tablet 00:00: 04:59 mouth in [place] 00 :00 the Medical morning Branch for 10 days. colchicine 2022-0 2022- No [id number] .6mg Take 1 Univers 0.6 mg 5-24 - 9107 tablet by ity of tablet 00:00: 04:59 mouth in [place] 00 :00 the Medical morning Branch for 10 days. apixaban 5 2022- No 5523 10mg Take 2 Univ ers mg tablet 5-24 -24 tablets by ity of 00:00: 00:00 mouth in [place] 00 :00 the Medical morning Branch and 2 tablets in the evening for 5 days, then Take 1 tablet by mouth in the morning and 1 tablet in the evening. Indication s: history of deep vein thrombosis ondansetron 2022- No [id number] 4mg Take 1 Univers 4 mg tablet 5-24 -24 tablet by it y of 00:00: 00:00 mouth [place] 00 :00 every 8 Medical (eight) Branch hours. traMADoL Yes 100mg 100 mg, Unive rs (ULTRAM) 04-02 Oral, ity of tablet 100 22:16: Q6HPRN, [place] mg 26 Starting Medical on 04/02/23 at 1716, Until Discontinu ed, Routine, Pain (scale 7-10) predniSONE 2022- No 30mg [Order 1 Un dante (DELTASONE) 04-02 Start] ity o f tablet 30 21:45: 13:59 Name: [place] mg 00 :00 predniSONE Medical ([facility] [place] [facility] ) tablet 30 mg Signed Summary: 30 mg, Oral, DAILY, 5 doses, First dose on Sat04/02/23 at 1645, Last dose on Sat04/06/23 at 0900, Routine [Order 1 End] [Order 2 Start] Name: predniSONE (DELTASONE ) tablet 20 mg Signed Summary: 20 mg, Oral, DAILY, 3 doses, First dose on Sat04/07/23 at 0900, Last dose on Sat04/09/23 at 0900, Routine [Order 2 End] [Order 3 Start] Name: predniSONE (DELTASONE ) tablet 10 mg Signed Summary: 10 mg, Oral, DAILY, 3 doses, First dose on Sat04/10/23 at 0900, Last dose on Sat04/12/23 at 0900, Routine [Order 3 End] [Order 4 Start] Name: predniSONE (DELTASONE ) tablet 5 mg Signed Summary: 5 mg, Oral, DAILY, 3 doses, First dose on Sat04/13/23 at 0900, Last dose on Sat04/15/23 at 0900, Routine [Order 4 End] apixaban 2022- No 10mg [Order 1 Univ ers (ELIQUIS) 04-02 0530 Start] ity of tablet 10 01:00: 00:59 Name: [place] mg 00 :00 apixaban Medical (ELIQUIS) Branch tablet 10 mg Signed Summary: 10 mg, Oral, BID, 14 doses, First dose on Sat04/01/23 at 2000, Last dose on Sat04/08/23 at 0800, Routine
Indicatio ns: DVT/PE [Order 1 End] [Order 2 Start] Name: apixaban (ELIQUIS) tablet 5 mg Signed Summary: 5 mg, Oral, BID, First dose on Sat04/09/23 at 0800, Until Discontinu ed, Routine
Indicatio ns: DVT/PE [Order 2 End] HYDROcodone Yes 1{tbl} 1 tablet, Univers -acetaminop 04-01 Oral, ity of hen (NORCO 15:38: Q6HPRN, [place] 5) 5-325 mg 46 Starting Medi [place] tablet 1 on Sat [place] tablet 04/01/23 at 1038, Until Discontinu ed, Routine, Pain (scale 4-6) NaCl 0.9% Yes 10mL 10 mL, Univer s (NS) 04-01 Slow IV ity of injection 02:52: Push, PRN, [place] 10 mL 07 Starting Medical on [facility] 03/31/23 at 2152, Until Discontinu ed, Routine, line maintenanc e lidocaine Yes 5mL 5 mL, Univers 1% (PF) 04-01 Subcutaneo ity of (XYLOCAINE) 02:52: us, PRN, [place] injection 5 07 Starting Medi [place] mL on [facility] 03/31/23 at 2152, Until Discontinu ed, Routine, Local anesthesia albumin 2022- No 1g/kg 85.7 g (1 Uni vers (PLASBUMIN) 03-30 05-20 g/kg ?85.7 i ty of 25 % 16:45: 18:50 kg), IV [place] injection 00 :00 Infusion, Medic al 85.7 g ONCE, 1 Branch dose, On 03/30/23 at 1145, 400 mL
Kylie cation: HEPATORENA L SYNDROME (DIAGNOSIS ) lidocaine 2022- No 1{patch 1 Patch, Univers (LIDODERM) 03-30 } Topical, ity of 5 % (700 15:45: 03:05 Administer [place] mg/patch) 00 :00 over 12 Medical patch 1 Hours, Branch Patch ONCE, 1 dose, On 03/30/23 at 1045, Routine sennosides Yes 8.6mg 8.6 mg, Uni vers (SENOKOT) 03-29 Oral, ity of tablet 8.6 14:00: DAILY, [place] mg 00 First dose Medical on Sat Branch 03/29/23 at 0900, Until Discontinu ed, Routine spironolact 2022- No 100mg 100 mg, U nivers one 03-29 Oral, ity of (ALDACTONE) 14:00: 13:55 DAILY, [place] tablet 100 00 :02 First dose Med ical mg on Sat Branch 03/29/23 at 0900, Until Discontinu ed, Routine furosemide 2022- No 40mg 40 mg, Univ ers (LASIX) 03-29 Oral, ity of tablet 40 14:00: 13:55 DAILY, [place] mg 00 :02 First dose Medical on Sat Branch 03/29/23 at 0900, Until Discontinu ed, Routine sulfur 2022- No [id number] 5mL 5 mL, Univ ers hexafluorid 03-28 Intravenou i ty of e microsphr 19:15: 19:15 s, ONCE, 1 [place] (LUMASON) 00 :00 dose, On Medica l injection 5 Yasmin Branch mL 03/28/23 at 1415, Routine
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
Re ason for Anti-Infec tive: Empiric Non-Surgic al Prophylaxi s
Durat ion of therapy: 5 days oxymetazoli 2022- No 2{spray 2 [place], Univers ne 03-26 } Nasal, ity of (OXYMETAZOL 18:52: 19:55 ONCE NOW, [place] INE HCL) 00 :00 1 dose, On Medic al 0.05 % Sat nasal spray 03/26/23 at 2 [place] 1400, [place] albumin 2022- No 1g/kg 85.7 g (1 Uni vers (PLASBUMIN) 03-26 05-17 g/kg ?85.7 i ty of 25 % 14:30: 02:29 kg), IV [place] injection 00 :00 Infusion, Medic al 85.7 g ONCE, 1 Branch dose, On Sat03/26/23 at 0930, 400 mL
Kylie cation: HEPATORENA L SYNDROME (DIAGNOSIS )
Comme nts: Albumin 1 g/kg/day for 2 days (up to a maximum of 100 g/day) magnesium 2022- No 4g 4 g, IV Univ ers sulfate in 03-26 Piggyback, it y of water 4 12:30: 15:55 at 25 [place] gram/50 mL 00 :00 mL/hr Medical (8 %) IV Administer Branc h Piggyback 4 over 120 g Minutes, ONCE, 1 dose, On Sat03/26/23 at 0730, Routine albumin 2022- No 1g/kg 85.7 g (1 Uni vers (PLASBUMIN) 03-25 05-15 g/kg ?85.7 i ty of 25 % 15:15: 21:22 kg), IV [place] injection 00 :28 Infusion, Medic al 85.7 g ONCE, 1 Branch dose, On Sat03/25/23 at 1015, 400 mL
Kylie cation: HEPATORENA L SYNDROME (DIAGNOSIS )
Comme nts: Albumin 1 g/kg/day for 2 days (up to a maximum of 100 g/day) proMETHazin Yes 12.5mg 12.5 mg, Univers e 03-23 Oral, ity of (PHENERGAN) 14:35: Q4HPRN, [place] tablet 12.5 42 Starting Medi [place] mg on Sat Branch 03/23/23 at 0935, Until Discontinu ed, Routine, N/V unresponsi ve to Ondansetro n spironolact 2022- No 400mg 400 mg, U nivers one 03-23 Oral, ity of (ALDACTONE) 14:00: 14:38 DAILY, [place] tablet 400 00 :08 First dose Med ical mg (after [place] last modificati on) on [facility] 03/23/23 at 0900, Until Discontinu ed, Routine rifAXIMin Yes 550mg 550 mg, Univ ers (XIFAXAN) 03-23 Oral, BID, ity of tablet 550 01:00: First dose [place] mg 00 on [facility] 03/22/23 at Branch 2000, Until Discontinu ed, Routine
Reason for Anti-Infec tive: Empiric Non-Surgic al Prophylaxi s
Durat ion of therapy: 5 days vancomycin 2022- No 15mg/kg 1,250 mg Univers 1,250 mg in 03-22 (rounded ity of NaCl 0.9% 21:45: 11:38 from [place] (NS) 250 mL 00 :15 1,285.5 mg Me dical VIAL-MATE = 15 mg/kg Bran ch IV ?85.7 kg), piggyback IV Piggyback, Q12H ABX, 14 doses, First dose on Sat03/22/23 at 1645, Last dose on Sat03/29/23 at 0445, Administer over 90 Minutes, 250 mL
R grazyna for Anti-Infec tive: Empiric Therapy for Suspected Infection< br>Empiric Therapy Site: Abdominal< br>Duratio n of therapy: 5 days cefTRIAXone 2022- No 2000mg 2,000 mg, Univers (ROCEPHIN) 03-22 IV ity of 2,000 mg in 20:30: 15:44 Piggyback, [place] NaCl 0.9% 00 :45 Q24H ABX, Medic al (NS) 100 mL 7 doses, Bran ch MINI-BAG First dose on Sat03/22/23 at 1530, Last dose on Sat03/28/23 at 1530, Administer over 30 Minutes, 100 mL
Reas on for Anti-Infec tive: Documented Infection< br>Documen willow Infection Site: Other
O ther site: abdominal fluid
D uration of Therapy: 7 days spironolact No 100mg 100 mg, U nivers one 03-22 Oral, ONCE ity of (ALDACTONE) 18:15: 19:39 NOW, 1 [place] as tablet 100 00 :00 dose, On Medic al mg [facility] 03/22/23 at 1315, Routine sodium Yes PRN, Univers bicarbonate 03-22 Starting ity of 8.4 % (1 13:50: on Sat [place] mEq/mL) 23 03/22/23 at Medica l injection 0850, Branch Until Discontinu ed, Routine, Intra-op lidocaine 2022- No PRN, Univers 1% (PF) 03-22 Starting ity of (XYLOCAINE) 13:49: 02:51 on Sat [place] as injection 47 :50 03/22/23 at [facility] 0849, Branch Until [place] 03/31/23 at 2151, Routine, Intra-op furosemide No 80mg 80 mg, Univ ers (LASIX) 03-21 Oral, ity of tablet 80 22:00: 14:38 QAM+PM, [place] mg 00 :08 First dose Medical on [facility] 03/21/23 at 1700, Until Discontinu ed, Routine cyclobenzap 2022- No 5mg 5 mg, Univ ers rine 03-21 Oral, ity of (FLEXERIL) 15:00: 19:31 ONCE, 1 [place] as tablet 5 mg 00 :00 dose, On [facility] 03/21/23 at 1000, Routine spironolact 2022- No 200mg 200 mg, U nivers one 03-21 Oral, ity of (ALDACTONE) 14:00: 15:27 DAILY, [place] as tablet 200 00 :16 First dose Med ical mg (after Branch last modificati on) on [facility] 03/21/23 at 0900, Until Discontinu ed, Routine oxymetazoli 2022- No 2{spray 2 [place], Univers ne 03-21 } Nasal, ity of (OXYMETAZOL 13:45: 19:31 ONCE NOW, [place] INE HCL) 00 :00 1 dose, On Medic al 0.05 % [facility] nasal spray 03/21/23 at 2 [place] 0845, Routine lactulose 2022- No 45mL 45 mL, Unive rs (CEPHULAC) 03-20 Oral, ity of solution 45 17:30: 18:26 ONCE, 1 [place] mL 00 :00 dose, On Medical [facility] 03/20/23 at 1230, Routine spironolact 2022- No 100mg 100 mg, U nivers one 03-2010 Oral, ity of (ALDACTONE) 17:15: 17:31 ONCE, 1 [place] tablet 100 00 :00 dose, On Medic al mg [facility] 03/20/23 at 1215, Routine ondansetron Yes 4mg 4 mg, Unive rs (ZOFRAN) 10 Oral, Q8H, ity o f tablet 4 mg 16:45: First dose [place] [address] [facility] 03/20/23 at Branch 1145, Until Discontinu ed, Routine levalbutero 0 Yes 1.25mg 1.25 mg, Univers l (XOPENEX) 5-10 Inhalation it y of nebulizer 13:33: , Q6HPRN, [facility] as solution 46 Starting Medical 1.25 mg on Sat [place] 03/20/23 at 0833, Until Discontinu ed, Routine, Wheezing, Shortness of Breath ipratropium Yes .5mg 0.5 mg, Uni vers (ATROVENT) 5-10 Inhalation ity of 0.02 % 13:33: , Q6HPRN, [place] nebulizer 38 Starting Medica l solution on Sat 0.5 mg 03/20/23 at 0833, Until Discontinu ed, Routine, Wheezing, Shortness of Breath levalbutero 2022- No .63mg 0.63 mg, Univers l (XOPENEX) 03-20 05-14 Inhalation i ty of nebulizer 01:00: 13:56 , TID, [place] solution 00 :15 First dose Medic al 0.63 mg on [facility] 03/19/23 at 2000, Until Discontinu ed, Routine ipratropium 2022- No .5mg 0.5 mg, Un dante (ATROVENT) 03-20 05-14 Inhalation it y of 0.02 % 01:00: 13:56 , TID, [place] nebulizer 00 :15 First dose Medi [place] solution on [facility] 0.5 mg 03/19/23 at 2000, Until Discontinu ed, Routine albuterol Yes 2{puff} 2 Puff, Un dante (VENTOLIN) 03-19 Inhalation ity of inhaler 2 22:25: , Q6HPRN, [place] Puff 51 Starting Medical on [facility] 03/19/23 at 1725, Until Discontinu ed, Routine, Wheezing, Shortness of Breath atorvastati Yes 20mg 20 mg, Univ ers n (LIPITOR) 03-19 Oral, QHS, it y of tablet 20 02:00: First dose [place] mg [address] [facility] 03/18/23 at Branch 2100, Until Discontinu ed, Routine pantoprazol Yes 40mg 40 mg, Univ ers e 03-18 Oral, ity of (PROTONIX) 14:00: DAILY, [place] EC tablet 00 First dose Medi [place] 40 mg on [facility] 03/18/23 at 0900, Until Discontinu ed, Routine amLODIPine Yes 5mg 5 mg, Univer s (NORVASC) 03-18 Oral, ity of tablet 5 mg 14:00: DAILY, [place] 00 First dose Medical on [facility] 03/18/23 at 0900, Until Discontinu ed, Routine enoxaparin 2022- No 40mg 40 mg, Univ ers (LOVENOX) 03-18 05-22 Subcutaneo ity of injection 14:00: 20:11 us, DAILY, [place] 40 mg 00 :19 First dose Medical on [facility] 03/18/23 at 0900, Until Discontinu ed, Routine spironolact 2022- No 100mg 100 mg, U nivers one 03-18 05-10 Oral, ity of (ALDACTONE) 14:00: 16:25 DAILY, [place] tablet 100 00 :53 First dose Med ical mg on [facility] 03/18/23 at 0900, Until Discontinu ed, Routine lactulose Yes 45mL 45 mL, Univer s (CEPHULAC) 03-18 Oral, TID, ity of solution 45 13:00: First dose [place] mL [address] [facility] 03/18/23 at Branch 0800, Until Discontinu ed, Routine morpHINE (4 2022- No 4mg 4 mg, Slow Univers mg/mL) 03-18 IV Push, ity of injection 4 04:32: 04:42 ONCE, 1 [place] mg 00 :00 dose, On [facility] 03/17/23 Branch at 2345, Routine furosemide 2022- No 40mg 40 mg, Univ ers (LASIX) 03-18 Slow IV ity of injection 04:15: 15:27 Push, BID, [place] 40 mg 00 :16 First dose Medical on [facility] 03/17/23 at 2315, Until Discontinu ed, Routine traMADoL 2022- No 50mg 50 mg, Univer s (ULTRAM) 03-18 Oral, ity of tablet 50 04:07: 22:16 Q6HPRN, [place] mg 32 :44 Starting Medical on [facility] 03/17/23 at 2307, Until Sat04/02/23 at 1716, Routine, Pain (scale 7-10) acetaminoph Yes 650mg 650 mg, Un dante en 03-18 Oral, ity of (TYLENOL) 04:04: Q6HPRN, [place] tablet 650 59 Starting Medic al mg on [facility] 03/17/23 at 2304, Until Discontinu ed, Routine, Pain (scale 1-3), Temp > 38 C FENTanyl PF 2022- No 25ug 25 mcg, Un dante (SUBLIMAZE 03-18 Slow IV ity o f (PF)) 00:00: 23:08 Push, [place] injection 00 :00 ONCE, 1 Medical 25 mcg dose, On [facility] 03/17/23 at 1900, Routine levalbutero 2022- No 1.25mg 1.25 mg, Univers l (XOPENEX) 5-07 05-07 Inhalation i ty of nebulizer 22:00: 21:06 , ONCE, 1 [place] solution 00 :00 dose, On Medical 1.25 mg 03/17/23 Branch at 1700, Routine atorvastati 2022-0 Yes [id number] 20mg Take 1 Univers n 20 mg 4-03 tablet by ity of tablet 00:00: mouth at [place] [address] bedtime. Medical Branch atorvastati 2022-0 Yes [id number] 20mg Take 1 Univers n 20 mg 4-03 tablet by ity of tablet 00:00: mouth at [place] 00 bedtime. Medical Branch atorvastati 2022-0 Yes [id number] 20mg Take 1 Univers n 20 mg 4-03 tablet by ity of tablet 00:00: mouth at [place] [address] bedtime. Medical Branch atorvastati 2022-0 Yes [id number] 20mg Take 1 Univers n 20 mg 4-03 tablet by ity of tablet 00:00: mouth at [place] [address] bedtime. Medical Branch atorvastati 2022-0 Yes [id number] 20mg Take 1 Univers n 20 mg 4-03 tablet by ity of tablet 00:00: mouth at [place] [address] bedtime. Medical Branch atorvastati 2022- Yes [id number] 20mg Take 1 Univers n 20 mg 4-03 tablet by ity of tablet 00:00: mouth at [place] [address] bedtime. Medical Branch atorvastati 2022- Yes [id number] 20mg Take 1 Univers n 20 mg 4-03 tablet by ity of tablet 00:00: mouth at [place] [address] bedtime. Medical Branch atorvastati 2022-0 Yes [id number] 20mg Take 1 Univers n 20 mg 4-03 tablet by ity of tablet 00:00: mouth at [place] [address] bedtime. Medical Branch atorvastati 2022-0 Yes [id number] 20mg Take 1 Univers n 20 mg 4-03 tablet by ity of tablet 00:00: mouth at [place] [address] bedtime. Medical Branch atorvastati 2022-0 Yes [id number] 20mg Take 1 Univers n 20 mg 4-03 tablet by ity of tablet 00:00: mouth at [place] [address] bedtime. Medical Branch atorvastati 2022- Yes [id number] 20mg Take 1 Univers n 20 mg 4-03 tablet by ity of tablet 00:00: mouth at [place] 00 bedtime. Medical Branch atorvastati 2022-0 Yes [id number] 20mg Take 1 Univers n 20 mg 4-03 tablet by ity of tablet 00:00: mouth at [place] bedtime. Medical Branch atorvastati 2022-0 Yes [id number] 20mg Take 1 Univers n 20 mg 4-03 tablet by ity of tablet 00:00: mouth at [place] bedtime. Medical Branch atorvastati 2022-0 Yes [id number] 20mg Take 1 Univers n 20 mg 4-03 tablet by ity of tablet 00:00: mouth at [place] bedtime. Medical Branch atorvastati 2022-0 Yes [id number] 20mg Take 1 Univers n 20 mg 4-03 tablet by ity of tablet 00:00: mouth at [place] bedtime. Medical Branch atorvastati 2022-0 Yes [id number] 20mg Take 1 Univers n 20 mg 4-03 tablet by ity of tablet 00:00: mouth at [place] bedtime. Medical Branch atorvastati 2022-0 Yes [id number] 20mg Take 1 Univers n 20 mg 4-03 tablet by ity of tablet 00:00: mouth at [place] bedtime. Medical Branch atorvastati 2022-0 Yes [id number] 20mg Take 1 Univers n 20 mg 4-03 tablet by ity of tablet 00:00: mouth at [place] bedtime. Medical Branch atorvastati 2022-0 Yes [id number] 20mg Take 1 Univers n 20 mg 4-03 tablet by ity of tablet 00:00: mouth at [place] bedtime. Medical Branch atorvastati 2022-0 Yes [id number] 20mg Take 1 Univers n 20 mg 4-03 tablet by ity of tablet 00:00: mouth at [place] bedtime. Medical Branch atorvastati 2022-0 Yes [id number] 20mg Take 1 Univers n 20 mg 4-03 tablet by ity of tablet 00:00: mouth at [place] bedtime. Medical Branch atorvastati 2022-0 Yes [id number] 20mg Take 1 Univers n 20 mg 4-03 tablet by ity of tablet 00:00: mouth at [place] bedtime. Medical Branch atorvastati 2022-0 Yes [id number] 20mg Take 1 Univers n 20 mg 4-03 tablet by ity of tablet 00:00: mouth at [place] [address] bedtime. Medical Branch atorvastati 2022-0 Yes [id number] 20mg Take 1 Univers n 20 mg 4-03 tablet by ity of tablet 00:00: mouth at [place] [address] bedtime. Medical Branch atorvastati 2022-0 Yes [id number] 20mg Take 1 Univers n 20 mg 4-03 tablet by ity of tablet 00:00: mouth at [place] [address] bedtime. Medical Branch atorvastati 2022-0 Yes [id number] 20mg Take 1 Univers n 20 mg 4-03 tablet by ity of tablet 00:00: mouth at [place] [address] bedtime. Medical Branch atorvastati 2022-0 Yes [id number] 20mg Take 1 Univers n 20 mg 4-03 tablet by ity of tablet 00:00: mouth at [place] [address] bedtime. Medical Branch atorvastati 2022-0 Yes [id number] 20mg Take 1 Univers n 20 mg 4-03 tablet by ity of tablet 00:00: mouth at [place] [address] bedtime. Medical Branch atorvastati 2022-0 Yes [id number] 20mg Take 1 Univers n 20 mg 4-03 tablet by ity of tablet 00:00: mouth at [place] [address] bedtime. Medical Branch furosemide 2022-0 2023- No 40mg Take 40 mg Univers 40 mg 3-30 03-30 by mouth ity of tablet 13:38: 00:00 in the [place] 51 :00 morning. Medical Branch furosemide 2022-0 2022- No 40mg Take 40 mg Univers 40 mg 3-30 03-30 by mouth ity of tablet 13:38: 00:00 in the [place] 51 :00 morning. Medical Branch spironolact 2022-0 Yes [id number] 100mg Take 1 Univers one 100 mg 3-30 tablet by ity of tablet 00:00: mouth in [place] [address] the Medical morning. Branch Additional refills per specialist amLODIPine 2022-0 Yes [id number] 5mg Take 1 U nivers 5 mg tablet 3-30 tablet by ity of 00:00: mouth in [place] [address] the Medical morning. Branch Additional refills per specialist lactulose 2022-0 Yes [id number] 45mL Take 45 mL Univers 10 gram/15 3-30 by mouth ity o f mL solution 00:00: in the [facility] 00 morning Medical and 45 mL Branch at noon and 45 mL in the evening. Additional refills per hepatology atorvastati 2022-0 Yes [id number] 40mg Take 1 Univers n 40 mg 3-30 tablet by ity of tablet 00:00: mouth at [place] [address] bedtime. Medical Additional Branch refills per hepatology furosemide 3-0 Yes [id number] 40mg Take 1 U nivers (LASIX) 40 3-30 tablet by ity of mg tablet 00:00: mouth in [facility] [place] [facility] the morning. Branch Additional refills per hepatology spironolact 3-0 Yes [id number] 100mg Take 1 Univers one 100 mg 3-30 tablet by ity of tablet 00:00: mouth in [place] the morning. Branch Additional refills per specialist amLODIPine 2022-0 Yes [id number] 5mg Take 1 U nivers 5 mg tablet 3-30 tablet by ity of 00:00: mouth in [place] the morning. Branch Additional refills per specialist lactulose 3-0 Yes [id number] 45mL Take 45 mL Univers 10 gram/15 3-30 by mouth ity o f mL solution 00:00: in the [facility] morning Medical and 45 mL Branch at noon and 45 mL in the evening. Additional refills per hepatology atorvastati 2022-0 Yes [id number] 40mg Take 1 Univers n 40 mg 3-30 tablet by ity of tablet 00:00: mouth at [place] [address] bedtime. Medical Additional Branch refills per hepatology furosemide 2022-0 Yes [id number] 40mg Take 1 U nivers (LASIX) 40 3-30 tablet by ity of mg tablet 00:00: mouth in [facility] [place] [facility] the morning. Branch Additional refills per hepatology spironolact 2022-0 Yes [id number] 100mg Take 1 Univers one 100 mg 3-30 tablet by ity of tablet 00:00: mouth in [place] the morning. Branch Additional refills per specialist amLODIPine 3-0 Yes [id number] 5mg Take 1 U nivers 5 mg tablet 3-30 tablet by ity of 00:00: mouth in [place] the morning. Branch Additional refills per specialist lactulose 3-0 Yes [id number] 45mL Take 45 mL Univers 10 gram/15 3-30 by mouth ity o f mL solution 00:00: [place] morning Medical and 45 mL Branch at noon and 45 mL in the evening. Additional refills per hepatology furosemide 3-0 Yes [id number] 40mg Take 1 U nivers (LASIX) 40 3-30 tablet by ity of mg tablet 00:00: mouth in [facility] [place] [facility] the morning. Branch Additional refills per hepatology spironolact 2022-0 Yes [id number] 100mg Take 1 Univers one 100 mg 3-30 tablet by ity of tablet 00:00: mouth in [place] the morning. Branch Additional refills per specialist amLODIPine 2022-0 Yes [id number] 5mg Take 1 U nivers 5 mg tablet 3-30 tablet by ity of 00:00: mouth in [place] the morning. Branch Additional refills per specialist lactulose 2022-0 Yes [id number] 45mL Take 45 mL Univers 10 gram/15 3-30 by mouth ity o f mL solution 00:00: in the [facility] morning Medical and 45 mL Branch at noon and 45 mL in the evening. Additional refills per hepatology furosemide 2022-0 Yes [id number] 40mg Take 1 U nivers (LASIX) 40 3-30 tablet by ity of mg tablet 00:00: mouth in [facility] [place] [facility] the morning. Branch Additional refills per hepatology spironolact 2022-0 Yes [id number] 100mg Take 1 Univers one 100 mg 3-30 tablet by ity of tablet 00:00: mouth in [place] the morning. Branch Additional refills per specialist amLODIPine 2022-0 Yes [id number] 5mg Take 1 U nivers 5 mg tablet 3-30 tablet by ity of 00:00: mouth in [place] the morning. Branch Additional refills per specialist lactulose 3-0 Yes [id number] 45mL Take 45 mL Univers 10 gram/15 3-30 by mouth ity o f mL solution 00:00: in the morning Medical and 45 mL Branch at noon and 45 mL in the evening. Additional refills per hepatology furosemide 3-0 Yes [id number] 40mg Take 1 U nivers (LASIX) 40 3-30 tablet by ity of mg tablet 00:00: mouth in [facility] [place] [facility] the Medical morning. Branch Additional refills per hepatology spironolact 2022-0 Yes [id number] 100mg Take 1 Univers one 100 mg 3-30 tablet by ity of tablet 00:00: mouth in [place] the morning. Branch Additional refills per specialist amLODIPine 2023-0 Yes [id number] 5mg Take 1 U nivers 5 mg tablet 3-30 tablet by ity of 00:00: mouth in [place] the morning. Branch Additional refills per specialist lactulose 2023-0 Yes [id number] 45mL Take 45 mL Univers 10 gram/15 3-30 by mouth ity o f mL solution 00:00: in the [facility] morning Medical and 45 mL Branch at noon and 45 mL in the evening. Additional refills per hepatology furosemide 3-0 Yes [id number] 40mg Take 1 U nivers (LASIX) 40 3-30 tablet by ity of mg tablet 00:00: mouth in [facility] [place] [facility] the morning. Branch Additional refills per hepatology spironolact 3-0 Yes [id number] 100mg Take 1 Univers one 100 mg 3-30 tablet by ity of tablet 00:00: mouth in [place] the morning. Branch Additional refills per specialist amLODIPine 3-0 Yes [id number] 5mg Take 1 U nivers 5 mg tablet 3-30 tablet by ity of 00:00: mouth in [place] the morning. Branch Additional refills per specialist lactulose 3-0 Yes [id number] 45mL Take 45 mL Univers 10 gram/15 3-30 by mouth ity o f mL solution 00:00: in the [facility] morning Medical and 45 mL Branch at noon and 45 mL in the evening. Additional refills per hepatology furosemide 2023-0 Yes [id number] 40mg Take 1 U nivers (LASIX) 40 3-30 tablet by ity of mg tablet 00:00: mouth in [facility] [place] [facility] the morning. Branch Additional refills per hepatology spironolact 2023-0 Yes [id number] 100mg Take 1 Univers one 100 mg 3-30 tablet by ity of tablet 00:00: mouth in [place] the morning. Branch Additional refills per specialist amLODIPine 2023-0 Yes [id number] 5mg Take 1 U nivers 5 mg tablet 3-30 tablet by ity of 00:00: mouth in [place] the morning. Branch Additional refills per specialist lactulose 2023-0 Yes [id number] 45mL Take 45 mL Univers 10 gram/15 3-30 by mouth ity o f mL solution 00:00: in the [facility] morning Medical and 45 mL Branch at noon and 45 mL in the evening. Additional refills per hepatology furosemide 3-0 Yes [id number] 40mg Take 1 U nivers (LASIX) 40 3-30 tablet by ity of mg tablet 00:00: mouth in [facility] [place] [facility] the morning. Branch Additional refills per hepatology spironolact 3-0 Yes [id number] 100mg Take 1 Univers one 100 mg 3-30 tablet by ity of tablet 00:00: mouth in [place] the morning. Branch Additional refills per specialist amLODIPine 3-0 Yes [id number] 5mg Take 1 U nivers 5 mg tablet 3-30 tablet by ity of 00:00: mouth in [place] the morning. Branch Additional refills per specialist lactulose 3-0 Yes [id number] 45mL Take 45 mL Univers 10 gram/15 3-30 by mouth ity o f mL solution 00:00: in the [facility] morning Medical and 45 mL Branch at noon and 45 mL in the evening. Additional refills per hepatology furosemide 2022-0 Yes [id number] 40mg Take 1 U nivers (LASIX) 40 3-30 tablet by ity of mg tablet 00:00: mouth in [facility] [place] [facility] the morning. Branch Additional refills per hepatology spironolact 3-0 Yes [id number] 100mg Take 1 Univers one 100 mg 3-30 tablet by ity of tablet 00:00: mouth in [place] the morning. Branch Additional refills per specialist amLODIPine 2023-0 Yes [id number] 5mg Take 1 U nivers 5 mg tablet 3-30 tablet by ity of 00:00: mouth in [place] the morning. Branch Additional refills per specialist lactulose 2023-0 Yes [id number] 45mL Take 45 mL Univers 10 gram/15 3-30 by mouth ity o f mL solution 00:00: in the [facility] morning Medical and 45 mL Branch at noon and 45 mL in the evening. Additional refills per hepatology furosemide 2023-0 Yes [id number] 40mg Take 1 U nivers (LASIX) 40 3-30 tablet by ity of mg tablet 00:00: mouth in [facility] [place] [facility] the morning. Branch Additional refills per hepatology spironolact 3-0 Yes [id number] 100mg Take 1 Univers one 100 mg 3-30 tablet by ity of tablet 00:00: mouth in [place] the morning. Branch Additional refills per specialist amLODIPine 3-0 Yes [id number] 5mg Take 1 U nivers 5 mg tablet 3-30 tablet by ity of 00:00: mouth in [place] the morning. Branch Additional refills per specialist lactulose 2023-0 Yes [id number] 45mL Take 45 mL Univers 10 gram/15 3-30 by mouth ity o f mL solution 00:00: in the [facility] morning Medical and 45 mL Branch at noon and 45 mL in the evening. Additional refills per hepatology furosemide 3-0 Yes [id number] 40mg Take 1 U nivers (LASIX) 40 3-30 tablet by ity of mg tablet 00:00: mouth in [facility] [place] [facility] the morning. Branch Additional refills per hepatology spironolact 2022-0 Yes [id number] 100mg Take 1 Univers one 100 mg 3-30 tablet by ity of tablet 00:00: mouth in [place] the morning. Branch Additional refills per specialist amLODIPine 3-0 Yes [id number] 5mg Take 1 U nivers 5 mg tablet 3-30 tablet by ity of 00:00: mouth in [place] the morning. Branch Additional refills per specialist lactulose 3-0 Yes [id number] 45mL Take 45 mL Univers 10 gram/15 3-30 by mouth ity o f mL solution 00:00: in the [facility] morning Medical and 45 mL Branch at noon and 45 mL in the evening. Additional refills per hepatology furosemide 3-0 Yes [id number] 40mg Take 1 U nivers (LASIX) 40 3-30 tablet by ity of mg tablet 00:00: mouth in [facility] [place] [facility] the morning. Branch Additional refills per hepatology spironolact 3-0 Yes [id number] 100mg Take 1 Univers one 100 mg 3-30 tablet by ity of tablet 00:00: mouth in [place] the morning. Branch Additional refills per specialist amLODIPine 3-0 Yes [id number] 5mg Take 1 U nivers 5 mg tablet 3-30 tablet by ity of 00:00: mouth in [place] the morning. Branch Additional refills per specialist lactulose 2023-0 Yes [id number] 45mL Take 45 mL Univers 10 gram/15 3-30 by mouth ity o f mL solution 00:00: in the [facility] morning Medical and 45 mL Branch at noon and 45 mL in the evening. Additional refills per hepatology furosemide 2022-0 Yes [id number] 40mg Take 1 U nivers (LASIX) 40 3-30 tablet by ity of mg tablet 00:00: mouth in [facility] [place] [facility] the morning. Branch Additional refills per hepatology amLODIPine 2022-0 Yes [id number] 5mg Take 1 U nivers 5 mg tablet 3-30 tablet by ity of 00:00: mouth in [place] the morning. Branch Additional refills per specialist lactulose 2022-0 Yes [id number] 45mL Take 45 mL Univers 10 gram/15 3-30 by mouth ity o f mL solution 00:00: in the [facility] morning Medical and 45 mL Branch at noon and 45 mL in the evening. Additional refills per hepatology amLODIPine 2022-0 Yes [id number] 5mg Take 1 U nivers 5 mg tablet 3-30 tablet by ity of 00:00: mouth in [place] the morning. Branch Additional refills per specialist lactulose 2022-0 Yes [id number] 45mL Take 45 mL Univers 10 gram/15 3-30 by mouth ity o f mL solution 00:00: in the [facility] morning Medical and 45 mL Branch at noon and 45 mL in the evening. Additional refills per hepatology amLODIPine 2022-0 Yes [id number] 5mg Take 1 U nivers 5 mg tablet 3-30 tablet by ity of 00:00: mouth in [place] the morning. Branch Additional refills per specialist lactulose 2022-0 Yes [id number] 45mL Take 45 mL Univers 10 gram/15 3-30 by mouth ity o f mL solution 00:00: in the [facility] morning Medical and 45 mL Branch at noon and 45 mL in the evening. Additional refills per hepatology amLODIPine 2022-0 Yes [id number] 5mg Take 1 U nivers 5 mg tablet 3-30 tablet by ity of 00:00: mouth in [place] the morning. Branch Additional refills per specialist lactulose 3-0 Yes [id number] 45mL Take 45 mL Univers 10 gram/15 3-30 by mouth ity o f mL solution 00:00: in the [facility] morning Medical and 45 mL Branch at noon and 45 mL in the evening. Additional refills per hepatology amLODIPine 3-0 Yes [id number] 5mg Take 1 U nivers 5 mg tablet 3-30 tablet by ity of 00:00: mouth in [place] the morning. Branch Additional refills per specialist lactulose 3-0 Yes [id number] 45mL Take 45 mL Univers 10 gram/15 3-30 by mouth ity o f mL solution 00:00: in the [facility] morning Medical and 45 mL Branch at noon and 45 mL in the evening. Additional refills per hepatology amLODIPine 2022-0 Yes [id number] 5mg Take 1 U nivers 5 mg tablet 3-30 tablet by ity of 00:00: mouth in [place] the morning. Branch Additional refills per specialist lactulose 3-0 Yes [id number] 45mL Take 45 mL Univers 10 gram/15 3-30 by mouth ity o f mL solution 00:00: in the [facility] morning Medical and 45 mL Branch at noon and 45 mL in the evening. Additional refills per hepatology amLODIPine 2022-0 Yes [id number] 5mg Take 1 U nivers 5 mg tablet 3-30 tablet by ity of 00:00: mouth in [place] the morning. Branch Additional refills per specialist amLODIPine 3-0 Yes [id number] 5mg Take 1 U nivers 5 mg tablet 3-30 tablet by ity of 00:00: mouth in [place] the morning. Branch Additional refills per specialist amLODIPine 3-0 Yes [id number] 5mg Take 1 U nivers 5 mg tablet 3-30 tablet by ity of 00:00: mouth in [place] the morning. Branch Additional refills per specialist amLODIPine 3-0 Yes [id number] 5mg Take 1 U nivers 5 mg tablet 3-30 tablet by ity of 00:00: mouth in [place] the morning. Branch Additional refills per specialist amLODIPine 3-0 3- No [id number] 5mg Take 1 [facility] 5 mg tablet 02-07 tablet by it y of 00:00: 00:00 mouth in [place] 00 :00 the Medical morning. Branch Additional refills per specialist amLODIPine 2022- No [id number] 5mg Take 1 [facility] 5 mg tablet 02-07 tablet by it y of 00:00: 00:00 mouth in [place] 00 :00 the Medical morning. Branch Additional refills per specialist amLODIPine 2022- No [id number] 5mg Take 1 [facility] 5 mg tablet 02-07 tablet by it y of 00:00: 00:00 mouth in [place] 00 :00 the Medical morning. Branch Additional refills per specialist lactulose 2022- No [id number] 45mL Take 45 mL Univers 10 gram/15 02-07 by mouth ity of mL solution 00:00: 00:00 in the [facility] as 00 :00 morning Medical and 45 mL Branch at noon and 45 mL in the evening. Additional refills per hepatology spironolact 2022- No [id number] 100mg Take 1 [facility] one 100 mg 02-07 tablet by ity of tablet 00:00: 00:00 mouth in [place] 00 :00 the Medical morning. Branch Additional refills per specialist furosemide 2022- No [id number] 40mg Take 1 [facility] (LASIX) 40 02-07 tablet by ity of mg tablet 00:00: 00:00 mouth in [facility] as 00 :00 the Medical morning. Branch Additional refills per hepatology atorvastati 2022- No [id number] 40mg Take 1 [facility] n 40 mg 02-07 tablet by ity of tablet 00:00: 00:00 mouth at [place] 00 :00 bedtime. Medical Additional Branch refills per hepatology atorvastati 2022- No [id number] 40mg Take 1 [facility] n 40 mg -10 03- tablet by ity of tablet 00:00: 00:00 mouth at [place] 00 :00 bedtime. Medical Additional Branch refills per hepatology atorvastati 2022- No [id number] 40mg Take 1 [facility] n 40 mg 02-07- tablet by ity of tablet 00:00: 00:00 mouth at [place] 00 :00 bedtime. Medical Additional Branch refills per hepatology atorvastati 2022- No [id number] 40mg Take 1 [facility] n 40 mg 02-07 tablet by ity of tablet 00:00: 00:00 mouth at [place] 00 :00 bedtime. Medical Additional Branch refills per hepatology lactulose 2022-0 Yes [id number] 45mL Take 45 mL [facility] 10 gram/15 2-24 by mouth ity o f mL solution 00:00: [place] morning Medical and 45 mL Branch at noon and 45 mL in the evening. Additional refills per hepatology lactulose 2022-2022- No [id number] 45mL Take 45 mL [facility] 10 gram/15 2-24 -30 by mouth ity of mL solution 00:00: 00:00 in the [place] as 00 :00 morning Medical and 45 mL Branch at noon and 45 mL in the evening. Additional refills per hepatology lactulose 2022-2022- No [id number] 45mL Take 45 mL [facility] 10 gram/15 2-24 -30 by mouth ity of mL solution 00:00: 00:00 in the [place] as 00 :00 morning Medical and 45 mL Branch at noon and 45 mL in the evening. Additional refills per hepatology atorvastati 2022-2022- No 40mg Take 40 mg [facility] n 40 mg 2-02 01- by mouth ity of tablet 14:39: 00:00 at [place] 03 :00 bedtime. Medical Branch spironolact 2022-2022- No 100mg Take 100 [facility] one 100 mg 2-22 02-22 mg by ity of tablet 14:39: 00:00 mouth in [place] 03 :00 the Medical morning. Branch atorvastati 2022-0 2022- No 40mg Take 40 mg Univers n 40 mg 2-22 - by mouth ity of tablet 14:39: 00:00 at [place] 03 :00 bedtime. Medical Branch spironolact 2022-2022- No 100mg Take 100 [facility] one 100 mg 2-22 02-22 mg by ity of tablet 14:39: 00:00 mouth in [place] 03 :00 the Medical morning. Branch atorvastati 2022-0 2023- No 40mg Take 40 mg Univers n 40 mg 2-22 02-22 by mouth ity of tablet 14:39: 00:00 at [place] 03 :00 bedtime. Medical Branch spironolact 2022-0 3- No 100mg Take 100 [facility] one 100 mg 2-22 02-22 mg by ity of tablet 14:39: 00:00 mouth in [place] 03 :00 the Medical morning. Branch furosemide 2022-0 Yes 40mg Take 40 mg U nivers 40 mg 2-22 by mouth ity of tablet 13:51: in the [place] [address] morning. Medical Branch furosemide 2022-0 Yes 40mg Take 40 mg U nivers 40 mg 2-22 by mouth ity of tablet 13:51: in the [place] [address] morning. Medical Branch furosemide 2022-0 Yes 40mg Take 40 mg U nivers 40 mg 2-22 by mouth ity of tablet 13:51: in the [place] [address] morning. Medical Branch furosemide 2022-0 Yes 40mg Take 40 mg U nivers 40 mg 2-22 by mouth ity of tablet 13:51: in the [place] [address] morning. Medical Branch furosemide 2022-0 Yes [id number] 40mg Take 1 U nivers (LASIX) 40 2-22 tablet by ity of mg tablet 00:00: mouth in [facility] [place] [facility] 00 the Medical morning. Branch Additional refills per hepatology spironolact 2022-0 Yes [id number] 100mg Take 1 [facility] one 100 mg 2-22 tablet by ity of tablet 00:00: mouth in [place] [address] the Medical morning. Branch Additional refills per hepatology amLODIPine 2022-0 Yes [id number] 5mg Take 1 U nivers 5 mg tablet 2-22 tablet by ity of 00:00: mouth in [place] [address] the Medical morning. Branch Additional refills from specialist atorvastati 2022-0 Yes [id number] 40mg Take 1 [facility] n 40 mg 2-22 tablet by ity of tablet 00:00: mouth at [place] [address] bedtime. Medical Additional Branch refills per hepatology furosemide 2022-0 Yes [id number] 40mg Take 1 U nivers (LASIX) 40 2-22 tablet by ity of mg tablet 00:00: mouth in [facility] [place] [facility] 00 the Medical morning. Branch Additional refills per hepatology spironolact 2022-0 Yes [id number] 100mg Take 1 [facility] one 100 mg 2-22 tablet by ity of tablet 00:00: mouth in [place] 00 the Medical morning. Branch Additional refills per hepatology amLODIPine 2022-0 Yes [id number] 5mg Take 1 U nivers 5 mg tablet 2-22 tablet by ity of 00:00: mouth in [place] 00 the Medical morning. Branch Additional refills from specialist atorvastati 2022-0 Yes [id number] 40mg Take 1 Univers n 40 mg 2-22 tablet by ity of tablet 00:00: mouth at [place] [address] bedtime. Medical Additional Branch refills per hepatology furosemide 2022-0 Yes [id number] 40mg Take 1 U nivers (LASIX) 40 2-22 tablet by ity of mg tablet 00:00: mouth in [facility] [place] [facility] 00 the Medical morning. Branch Additional refills per hepatology spironolact 2022-0 Yes [id number] 100mg Take 1 [facility] one 100 mg 2-22 tablet by ity of tablet 00:00: mouth in [place] 00 the Medical morning. Branch Additional refills per hepatology amLODIPine 2022-0 Yes [id number] 5mg Take 1 U nivers 5 mg tablet 2-22 tablet by ity of 00:00: mouth in [place] 00 the Medical morning. Branch Additional refills from specialist atorvastati 2022-0 Yes [id number] 40mg Take 1 [facility] n 40 mg 2-22 tablet by ity of tablet 00:00: mouth at [place] [address] bedtime. Medical Additional Branch refills per hepatology furosemide 2022-0 2022- No [id number] 40mg Take 1 Univers (LASIX) 40 2-22 03-30 tablet by ity of mg tablet 00:00: 00:00 mouth in [facility] 00 :00 the Medical morning. Branch Additional refills per hepatology spironolact 2022-0 2022- No [id number] 100mg Take 1 [facility] one 100 mg 2-22 03-30 tablet by ity of tablet 00:00: 00:00 mouth in [place] 00 :00 the Medical morning. Branch Additional refills per hepatology amLODIPine 2022-0 2022- No [id number] 5mg Take 1 [facility] 5 mg tablet 2-22 03-30 tablet by it y of 00:00: 00:00 mouth in [place] 00 :00 the Medical morning. Branch Additional refills from specialist atorvastati 2022022- No [id number] 40mg Take 1 [facility] n 40 mg 01-02 tablet by ity of tablet 00:00: 00:00 mouth at [place] 00 :00 bedtime. Medical Additional Branch refills per hepatology furosemide 2022- No [id number] 40mg Take 1 Univers (LASIX) 40 01-02 tablet by ity of mg tablet 00:00: 00:00 mouth in [place] as 00 :00 the Medical morning. Branch Additional refills per hepatology spironolact 2022- No [id number] 100mg Take 1 [facility] one 100 mg 01-02 tablet by ity of tablet 00:00: 00:00 mouth in [place] 00 :00 the Medical morning. Branch Additional refills per hepatology amLODIPine 2022- No [id number] 5mg Take 1 [facility] 5 mg tablet 01-02 tablet by it y of 00:00: 00:00 mouth in [place] 00 :00 the Medical morning. Branch Additional refills from specialist atorvastati 2022- No [id number] 40mg Take 1 [facility] n 40 mg 01-02 tablet by ity of tablet 00:00: 00:00 mouth at [place] 00 :00 bedtime. Medical Additional Branch refills per hepatology atorvastati 2021-11 Yes 40mg Take 40 mg [facility] n 40 mg 1-29 by mouth ity of tablet 21:13: at [place] [address] bedtime. Medical Branch atorvastati 2021-11 Yes 40mg Take 40 mg Univers n 40 mg 1-29 by mouth ity of tablet 21:13: at [place] [address] bedtime. Medical Branch atorvastati 2021-11 Yes 40mg Take 40 mg [facility] n 40 mg 1-29 by mouth ity of tablet 21:13: at [place] [address] bedtime. Medical Branch atorvastati 2021-11 Yes 40mg Take 40 mg Univers n 40 mg 1-29 by mouth ity of tablet 21:13: at [place] [address] bedtime. Medical Branch atorvastati 2021-11 Yes 40mg Take 40 mg [facility] n 40 mg 1-29 by mouth ity of tablet 21:13: at [place] [address] bedtime. Medical Branch atorvastati 2021-11 Yes 40mg Take 40 mg Univers n 40 mg 1-29 by mouth ity of tablet 21:13: at [place] [address] bedtime. Medical Branch atorvastati 2021-11 Yes 40mg Take 40 mg Univers n 40 mg 12-09 by mouth ity of tablet 21:13: at [place] [address] bedtime. Medical Branch cefTRIAXone 2021-11- No 2000mg 2,000 mg, Univers (ROCEPHIN) 12-09 Intravenou it y of 2,000 mg in 18:00: 18:48 s, Q24H [place] water for 00 :00 ABX, 1 Medical injection, dose, Branch sterile 20 First dose mL SIVP (after syringe last modificati on) on Sat10/09/22 at 1200, 20 mL
Reas on for Anti-Infec tive: Documented Infection< br>Documen willow Infection Site: Abdominal< br>Duratio n of Therapy: 7 days pantoprazol 2021-11 Yes 40mg 40 mg, Univ ers e 12-09 Oral, QHS, ity of (PROTONIX) 03:00: First dose [place] EC tablet 00 on Sat Medical 40 mg 10/08/22 Branch at 2100, Until Discontinu ed, Routine ciprofloxac 2021-11 Yes [id number] 500mg Take 1 [facility] in HCl 500 - 10173 tablet by ity of mg tablet 00:00: mouth in the Medical morning. Branch lactulose 2021-11 Yes [id number] 45mL Take 45 mL Univers 10 gram/15 12-09 by mouth ity o f mL solution 00:00: in the morning Medical and 45 mL Branch at noon and 45 mL in the evening. ciprofloxac 2021-11 Yes [id number] 500mg Take 1 [facility] in HCl 500 - 73822 tablet by ity of mg tablet 00:00: [place] the Medical morning. Branch lactulose 2021-11 Yes [id number] 45mL Take 45 mL [facility] 10 gram/15 -29 by mouth ity o f mL solution 00:00: in the morning Medical and 45 mL Branch at noon and 45 mL in the evening. ciprofloxac 2021-11 Yes [id number] 500mg Take 1 [facility] in HCl 500 1-29 [id number] tablet by ity of mg tablet 00:00: mouth in the Medical morning. Branch lactulose 2021-11 Yes [id number] 45mL Take 45 mL Univers 10 gram/15 1-29 by mouth ity o f mL solution 00:00: in the morning Medical and 45 mL Branch at noon and 45 mL in the evening. ciprofloxac 2021-11 Yes [id number] 500mg Take 1 [facility] in HCl 500 1-29 [id number] tablet by ity of mg tablet 00:00: mouth in the Medical morning. Branch lactulose 2021-11 Yes [id number] 45mL Take 45 mL [facility] 10 gram/15 1-29 by mouth ity o f mL solution 00:00: in the morning Medical and 45 mL Branch at noon and 45 mL in the evening. ciprofloxac 2021-11 Yes [id number] 500mg Take 1 [facility] in HCl 500 1-29 [id number] tablet by ity of mg tablet 00:00: mouth in the Medical morning. Branch lactulose 2021-11 Yes [id number] 45mL Take 45 mL [facility] 10 gram/15 1-29 by mouth ity o f mL solution 00:00: in the morning Medical and 45 mL Branch at noon and 45 mL in the evening. ciprofloxac 2021-11 Yes [id number] 500mg Take 1 [facility] in HCl 500 1-29 [id number] tablet by ity of mg tablet 00:00: mouth in the Medical morning. Branch lactulose 2021-11 Yes [id number] 45mL Take 45 mL [facility] 10 gram/15 1-29 by mouth ity o f mL solution 00:00: in the morning Medical and 45 mL Branch at noon and 45 mL in the evening. ciprofloxac 2021-11 Yes [id number] 500mg Take 1 [facility] in HCl 500 1-29 [id number] tablet by ity of mg tablet 00:00: mouth in the Medical morning. Branch lactulose 2021-11 Yes [id number] 45mL Take 45 mL [facility] 10 gram/15 1-29 by mouth ity o f mL solution 00:00: in the morning Medical and 45 mL Branch at noon and 45 mL in the evening. lactulose 2021-11 Yes [id number] 45mL Take 45 mL [facility] 10 gram/15 1-29 by mouth ity o f mL solution 00:00: [place] morning Medical and 45 mL Branch at noon and 45 mL in the evening. lactulose 2021-11 Yes [id number] 45mL Take 45 mL [facility] 10 gram/15 1-29 by mouth ity o f mL solution 00:00: in [place] morning Medical and 45 mL Branch at noon and 45 mL in the evening. lactulose 2021-11 Yes [id number] 45mL Take 45 mL [facility] 10 gram/15 1-29 by mouth ity o f mL solution 00:00: in [place] morning Medical and 45 mL Branch at noon and 45 mL in the evening. lactulose 2021-11- No [id number] 45mL Take 45 mL [facility] 10 gram/15 -29 01-04 by mouth ity of mL solution 00:00: 00:00 in the [place] 00 :00 morning Medical and 45 mL Branch at noon and 45 mL in the evening. ciprofloxac 2021-11- No [id number] 500mg Take 1 Univers in HCl 500 12-09 [id number] tablet by it y of mg tablet 00:00: 00:00 mouth in [place] 00 :00 the Medical morning. Branch ciprofloxac 2021-11- No [id number] 500mg Take 1 [facility] in HCl 500 12-09 [id number] tablet by it y of mg tablet 00:00: 00:00 mouth in [place] 00 :00 the Medical morning. Branch magnesium 2021-11- No 2g 2 g, IV Univ ers sulfate in 12-06 Piggyback, it y of water 2 13:45: 15:38 Administer [place] gram/50 mL 00 :00 over 60 Medica l (4 %) Minutes, Branch infusion 2 ONCE, 1 g dose, On 10/06/22 at 0745, Routine atorvastati 2021-11 Yes 40mg 40 mg, Univ ers n (LIPITOR) 12-06 Oral, QHS, it y of tablet 40 03:00: First dose [place] mg 00 on Sat Medical 10/05/22 Branch at 2100, Until Discontinu ed, Routine cefTRIAXone 2022-1 2022- No 2000mg 2,000 mg, Univers (ROCEPHIN) 12-06 Intravenou it y of 2,000 mg in 00:45: 14:24 s, Q24H [place] water for 00 :36 ABX, 5 Medical injection, doses, Branch sterile 20 First dose mL SIVP (after syringe last modificati on) on Sat10/05/22 at 1845, Last dose on Sat10/09/22 at 1845, 20 mL
Reas on for Anti-Infec tive: Documented Infection& lt;br>Docu mented Infection Site: Abdominal< br>Duratio n of Therapy: 7 days amLODIPine 2021-11 Yes 5mg 5 mg, Univer s (NORVASC) 12-05 Oral, ity of tablet 5 mg 22:45: DAILY, [place] 00 First dose Medical on Sat Branch 10/05/22 at 1645, Until Discontinu ed, Routine lidocaine 2021-11- No 10mL 10 mL, Unive rs 1% (PF) 12-05 Infiltrati ity o f (XYLOCAINE) 17:45: 17:45 on, ONCE, [place] injection 00 :00 1 dose, On Medi kelsey 10 mL Sat Branch 10/05/22 at 1145, Routine spironolact 2021-11- No [id number] 100mg Take 1 [facility] one 100 mg 1-25 12-26 tablet by ity of tablet 00:00: 05:59 mouth in [place] 00 :00 [facility] for 30 days. spironolact 2021-11- No [id number] 100mg Take 1 [facility] one 100 mg 1-25 12-26 tablet by ity of tablet 00:00: 05:59 mouth in [place] 00 :00 [facility] for 30 days. spironolact 2021-11- No [id number] 100mg Take 1 [facility] one 100 mg 1-25 12-26 tablet by ity of tablet 00:00: 05:59 mouth in [place] 00 :00 [facility] for 30 days. spironolact 2021-11- No [id number] 100mg Take 1 [facility] one 100 mg 1-25 12-26 tablet by ity of tablet 00:00: 05:59 mouth in [place] 00 :00 the [facility] Branch for 30 days. spironolact 2021-11- No [id number] 100mg Take 1 [facility] one 100 mg 1-25 12-26 tablet by ity of tablet 00:00: 05:59 mouth in [place] 00 :00 the [facility] Branch for 30 days. spironolact 2021-11- No [id number] 100mg Take 1 [facility] one 100 mg 1-25 12-26 tablet by ity of tablet 00:00: 05:59 mouth in [place] 00 :00 the [facility] for 30 days. spironolact 2021-11 Yes 100mg 100 mg, Un dante one 1-24 Oral, ity of (ALDACTONE) 15:00: DAILY, [place] tablet 100 00 First dose Med ical mg (after Branch last modificati on) on [place] 10/04/22 at 0900, Until Discontinu ed, Routine furosemide 2021-11- No [id number] 40mg Take 1 [facility] 40 mg 1-24 12-25 tablet by ity of tablet 00:00: 05:59 mouth [place] 00 :00 every Medical morning Branch and evening for 30 days. furosemide 2021-11- No [id number] 40mg Take 1 [facility] 40 mg 1-24 12-25 tablet by ity of tablet 00:00: 05:59 mouth [place] 00 :00 every Medical morning Branch and evening for 30 days. furosemide 2021-11- No [id number] 40mg Take 1 [facility] 40 mg 1-24 12-25 tablet by ity of tablet 00:00: 05:59 mouth [place] 00 :00 every Medical morning Branch and evening for 30 days. furosemide 2021-11- No [id number] 40mg Take 1 [facility] 40 mg 1-24 12-25 tablet by ity of tablet 00:00: 05:59 mouth [place] 00 :00 every Medical morning Branch and evening for 30 days. furosemide 2021-11- No [id number] 40mg Take 1 [facility] 40 mg 1-24 12-25 tablet by ity of tablet 00:00: 05:59 mouth [place] 00 :00 every Medical morning Branch and evening for 30 days. furosemide 2021-11- No [id number] 40mg Take 1 [facility] 40 mg 1-24 12-25 tablet by ity of tablet 00:00: 05:59 mouth [place] 00 :00 every Medical morning Branch and evening for 30 days. HYDROcodone 2021-11 No [id number] 1{tbl} Take 1 U nivers -acetaminop -24 - tablet by it y of hen 5-325 00:00: 05:59 mouth [place] mg tablet 00 :00 every 6 Medical (six) Branch hours as needed for Pain (scale 4-6) for up to 7 days. Indication s: acute pain HYDROcodone 2021-11 No [id number] 1{tbl} Take 1 U nivers -acetaminop -24 10-12 tablet by it y of hen 5-325 00:00: 05:59 mouth [place] mg tablet 00 :00 every 6 Medical (six) Branch hours as needed for Pain (scale 4-6) for up to 7 days. Indication s: acute pain HYDROcodone 2021-11 No [id number] 1{tbl} Take 1 U nivers -acetaminop -24 10-12 tablet by it y of hen 5-325 00:00: 05:59 mouth [place] mg tablet 00 :00 every 6 Medical (six) Branch hours as needed for Pain (scale 4-6) for up to 7 days. Indication s: acute pain HYDROcodone 2021-11 No [id number] 1{tbl} Take 1 U nivers -acetaminop -24 10-12 tablet by it y of hen 5-325 00:00: 05:59 mouth [place] mg tablet 00 :00 every 6 Medical (six) Branch hours as needed for Pain (scale 4-6) for up to 7 days. Indication s: acute pain furosemide 2021-11 Yes 40mg 40 mg, Unive rs (LASIX) 12-03 Oral, ity of tablet 40 23:00: QAM+PM, [place] mg 00 First dose Medical (after Branch last modificati on) on Sat10/03/22 at 1700, Until Discontinu ed, Routine albumin 2021-11 No 1g/kg 63.5 g (1 Uni vers (PLASBUMIN) 12-03 11-24 g/kg ?63.5 i ty of 25 % 22:45: 10:44 kg), IV [place] injection 00 :00 Infusion, Medic al 63.5 g ONCE, 1 Branch dose, On Sat10/03/22 at 1645, 300 mL
Kylie cation: HEPATORENA L SYNDROME (DIAGNOSIS )
Comme nts: Albumin 1 g/kg/day for 2 days (up to a maximum of 100 g/day) HYDROcodone 2021-11 Yes 1{tbl} 1 tablet, Univers -acetaminop 12-03 Oral, ity of hen (NORCO 20:08: Q6HPRN, [place] 5) 5-325 mg 47 Starting Medi [place]el[place] tablet 1 on Sat Branch tablet 10/03/22 at 1408, Until Discontinu ed, Routine, Pain (scale 4-6) lactulose 2021-11 Yes 45mL 45 mL, Univer s (CEPHULAC) 12-03 Oral, TID, ity of solution 45 20:00: First dose [place] mL 00 on Sat Medical 10/03/22 Branch at 1400, Until Discontinu ed, Routine morpHINE (2 2021-11 Yes 2mg 2 mg, Slow Univers mg/mL) 12-03 IV Push, ity of injection 2 11:12: Q4HPRN, [place] mg 45 Starting Medical on Sat Branch 10/03/22 at 0512, Until Discontinu ed, Routine, Pain (scale 7-10) pantoprazol 2021-11 Yes 40mg 40 mg, Univ ers e 12-03 Slow IV ity of (PROTONIX) 06:00: Push, [place] injection 00 Q24H, Medical 40 mg First dose Branch (after last modificati on) on Sat10/03/22 at 0000, Until Discontinu ed pantoprazol 2021-11- No 40mg 40 mg, Uni vers e 12-03 Slow IV ity of (PROTONIX) 06:00: 21:54 Push, [place] injection 00 :05 Q24H, Medical 40 mg First dose Branch (after last modificati on) on Sat10/03/22 at 0000, Until Discontinu ed albumin 2021-11- No 1g/kg 63.5 g (1 Uni vers (PLASBUMIN) 12-02 g/kg ?63.5 i ty of 25 % 23:30: 12:56 kg), IV [place] injection 00 :00 Infusion, Medic al 63.5 g ONCE, 1 Branch dose, On Sat10/02/22 at 1730, 300 mL
Kylie cation: HEPATORENA L SYNDROME (DIAGNOSIS )
Comme nts: Albumin 1 g/kg/day for 2 days (up to a maximum of 100 g/day) enoxaparin 2021-11 Yes 40mg 40 mg, Unive rs (LOVENOX) 12-01 Subcutaneo ity of injection 23:00: us, DAILY, [place] 40 mg 00 First dose Medical on Sat [place] 10/01/22 at 1700, Until Discontinu ed, Routine enoxaparin 2021-11 Yes 40mg 40 mg, Unive rs (LOVENOX) 12-01 Subcutaneo ity of injection 23:00: us, DAILY, [place] 40 mg 00 First dose Medical on Sat [place] 10/01/22 at 1700, Until Discontinu ed, Routine morpHINE (4 2021-11- No 4mg 4 mg, Slow Univers mg/mL) 12-01 IV Push, ity of injection 4 19:24: 05:52 Q3HPRN, [place] mg 55 :43 Starting Medical on Sat [place] 10/01/22 at 1324, Until Sat10/02/22 at 2352, Routine, Pain (scale 7-10) morpHINE (4 2021-11- No 4mg 4 mg, Slow Univers mg/mL) 12-01 IV Push, ity of injection 4 19:24: 05:52 Q3HPRN, [place] mg 55 :43 Starting Medical on Sat [place] 10/01/22 at 1324, Until Sat10/02/22 at 2352, Routine, Pain (scale 7-10) piperacilli 2021-11- No 3.375g 3.375 g, Univers n-tazobacta 12-01 IV ity of m (ZOSYN) 15:15: 15:14 Piggyback, [place] 3.375 g in 00 :00 Q8H ABX, Medic al NaCl 0.9% 21 doses, Branc h (NS) 50 mL First dose MINI-BAG on Sat10/01/22 at 0915, Last dose on Sat10/08/22 at 0115, Administer over 4 Hours, 50 mL
Reas on for Anti-Infec tive: Surgical Prophylaxi s
[place] rgical Prophylaxi s: Abdominal< br>Duratio n of therapy: within 24 hours of surgery piperacilli 2021-11- No 3.375g 3.375 g, Univers n-tazobacta 12-01 IV ity of m (ZOSYN) 15:15: 16:27 Piggyback, [place] 3.375 g in 00 :13 Q8H ABX, Medic al NaCl 0.9% 21 doses, Branc h (NS) 50 mL First dose MINI-BAG on Sat10/01/22 at 0915, Last dose on Sat10/08/22 at 0115, Administer over 4 Hours, 50 mL
Reas on for Anti-Infec tive: Surgical Prophylaxi s
[place] rgical Prophylaxi s: Abdominal< br>Duratio n of therapy: within 24 hours of surgery labetaloL 2021-11 Yes 5mg 5 mg, Slow Un dante (NORMODYNE) 12-01 IV Push, ity of injection 5 10:34: Q15MIN [place] mg 31 PRN, 4 Medical doses, Branch Starting on Sat10/01/22 at 0434, Until Discontinu ed, Routine, BP systolic >160 and or diastolic >100 w/ HR >60 bupivacaine 2021-11- No PRN, Unive rs liposome 12-01 Starting ity of (PF) 09:44: 10:34 on Sat [place] (EXPAREL 00 :36 10/01/22 Medical (PF)) 1.3 % at 0344, Bran ch (13.3 Until Mon mg/mL) 10/01/22 injection at 0434, Routine, Intra-op piperacilli 2021-11- No 3.375g 3.375 g, Univers n-tazobacta 12-01 IV ity of m (ZOSYN) 07:30: 07:20 Piggyback, [place] 3.375 g in 00 :00 ONCE, 1 Medica l NaCl 0.9% dose, On Branch (NS) 50 mL Mon MINI-BAG 10/01/22 at 0130, Administer over 30 Minutes, 50 mL
Reas on for Anti-Infec tive: Surgical Prophylaxi s
Surgi kelsey Prophylaxi s: Abdominal< br>Dura tion of therapy: within 24 hours of surgery sodium 2021-11- No PRN, Univers chloride 12-01 Starting ity of 0.9 % 07:14: 10:34 on Sat [place] irrigation 00 :36 10/01/22 Medic al solution at 0114, Branch Until Sat10/01/22 at 0434, Intra-op NaCl 0.9% 2021-11 Yes 1000mL at 100 Univ ers (NS) IV 12-01 mL/hr, IV ity of infusion 06:00: Infusion, [place] 1,000 mL 00 CONTINUOUS Medic al , Starting Branch on Sat10/01/22 at 0000, Until Discontinu ed, Routine NaCl 0.9% 2021-11- No 1000mL at 100 Uni vers (NS) IV 12-01 mL/hr, IV ity of infusion 06:00: 01:30 Infusion, [place] 1,000 mL 00 :01 CONTINUOUS Medic al , Starting Branch on Sat10/01/22 at 0000, Until Sat10/02/22 at 1930, Routine pantoprazol 2021-11- No 40mg 40 mg, Uni vers e 12-01 Slow IV ity of (PROTONIX) 05:53: 12:48 Push, [place] injection 55 :37 Q24H, 3 Medical 40 mg doses, Branch First dose on Sat10/01/22 at 0000, Last dose on Sat10/03/22 at 0000 morpHINE (4 2021-11- No 3mg 3 mg, Slow Univers mg/mL) 12-01 IV Push, ity of injection 3 05:53: 19:25 Q3HPRN, [place] mg 43 :14 Starting Medical on [place] Branch 09/30/22 at 2353, Until Sat10/01/22 at 1325, Routine, Pain (scale 7-10) ondansetron 2021-11 Yes 4mg 4 mg, Slow Univers (ZOFRAN 12-01 IV Push, ity of (PF)) 05:53: Q6HPRN, [place] injection 4 32 Starting Medi kelsey mg on [place] [facility] 09/30/22 at 2353, Until Discontinu ed, Routine, Nausea and Vomiting (N/V) ondansetron 2021-11 Yes 4mg 4 mg, Slow Univers (ZOFRAN 12-01 IV Push, ity of (PF)) 05:53: Q6HPRN, [place] injection 4 32 Starting Medi kelsey mg on [facility] 09/30/22 at 2353, Until Discontinu ed, Routine, Nausea and Vomiting (N/V) metoclopram 2021-11- No 10mg 10 mg, Uni vers hector HCl 12-01 Slow IV ity of (REGLAN) 02:30: 02:39 Push, [place] injection 00 :00 ONCE, 1 Medical 10 mg dose, On Branch [place] 09/30/22 at 2030, [place]AT[place]NA iopamidol 2021-11- No [id number] 81mL 81 mL, U nivers (ISOVUE 12-01 Intravenou ity o f 370-500 mL) 00:15: 00:30 s, ONCE, 1 [place] injection 00 :00 dose, On Medica l 81 mL [facility] 09/30/22 at 1830, Routine ondansetron 2021-11- No 4mg 4 mg, Slow Univers (ZOFRAN 12-01 IV Push, ity of (PF)) 00:15: 00:39 ONCE, 1 [place] injection 4 00 :00 dose, On Medi kelsey mg [facility] 09/30/22 at 1815, TATIANA atorvastati 2021-11 Yes 40mg Take 40 mg Univers n 40 mg 1-20 by mouth ity of tablet 23:54: at [place] 30 bedtime. Medical Branch atorvastati 2021-11 Yes 40mg Take 40 mg Univers n 40 mg 1-20 by mouth ity of tablet 23:54: at [place] [address] [facility] Branch spironolact 2021-11- No [id number] 200mg Take 2 Univers one 100 mg 11-2604 tablets by i ty of tablet 00:00: 05:59 mouth in [place] 00 :00 the Medical morning Branch for 60 days. spironolact 2021-11- No [id number] 200mg Take 2 Univers one 100 mg 11-26 [id number] tablets by i ty of tablet 00:00: 05:59 mouth in [place] 00 :00 the Medical morning [place] for 60 days. spironolact 2021-11- No [id number] 200mg Take 2 Univers one 100 mg 11-26 [id number] tablets by i ty of tablet 00:00: 05:59 mouth in [place] 00 :00 the [facility] for 60 days. spironolact 2021-11- No [id number] 200mg Take 2 Univers one 100 mg 11-26 [id number] tablets by i ty of tablet 00:00: 05:59 mouth in [place] 00 :00 the [facility] for 60 days. spironolact 2021-11- No [id number] 200mg Take 2 Univers one 100 mg 11-26 [id number] tablets by i ty of tablet 00:00: 05:59 mouth in [place] 00 :00 the [facility] for 60 days. spironolact 2021-11- No [id number] 200mg Take 2 Univers one 100 mg 11-26 [id number] tablets by i ty of tablet 00:00: 05:59 mouth in [place] 00 :00 [facility] for 60 days. spironolact 2021-11- No [id number] 200mg Take 2 Univers one 100 mg 11-26 [id number] tablets by i ty of tablet 00:00: 05:59 mouth in [place] 00 :00 the [facility] for 60 days. spironolact 2021-11- No [id number] 200mg Take 2 Univers one 100 mg 11-26 [id number] tablets by i ty of tablet 00:00: 00:00 mouth in [place] 00 :00 the [facility] for 60 days. spironolact 2021-11- No [id number] 200mg Take 2 Univers one 100 mg 11-26 21514 tablets by i ty of tablet 00:00: 00:00 mouth in [place] 00 :00 the [facility] for 60 days. spironolact 2021-11- No [id number] 200mg Take 2 Univers one 100 mg 11-26 [id number] tablets by i ty of tablet 00:00: 00:00 mouth in [place] 00 :00 the [facility] for 60 days. atorvastati 2021-11 Yes 40mg Take 40 mg Univers n 40 mg 1-15 by mouth ity of tablet 19:43: at [place] [address] bedtime. Medical Branch atorvastati 2021-11 Yes 40mg Take 40 mg Univers n 40 mg 1-15 by mouth ity of tablet 19:43: at [place] [address] bedtime. Medical Branch atorvastati 2021-11 Yes 40mg Take 40 mg Univers n 40 mg 1-15 by mouth ity of tablet 19:43: at [place] [address] bedtime. Medical Branch atorvastati 2021-11 Yes 40mg Take 40 mg Univers n 40 mg 1-15 by mouth ity of tablet 19:43: at [place] [address] bedtime. Medical Branch atorvastati 2021-11 Yes 40mg Take 40 mg Univers n 40 mg 1-15 by mouth ity of tablet 19:43: at [place] [address] bedtime. Medical Branch furosemide 2021-11 Yes 80mg 80 mg, Unive rs (LASIX) 1-15 Slow IV ity of injection 15:00: Push, QAM, [place] 80 mg 00 First dose Medical (after Branch last modificati on) on Sat09/25/22 at 0900, Until Discontinu ed, Routine furosemide 2021-11- No 40mg Take 40 mg Univers (LASIX) 40 1-15 11-15 by mouth ity of mg tablet 14:37: 00:00 in the [place] 45 :00 morning. Medical Branch spironolact 2021-11- No 100mg Take 100 Univers one 100 mg 1-15 11-15 mg by ity of tablet 14:37: 00:00 mouth in [place] 45 :00 the Medical morning. Branch furosemide 2021-11- No 40mg Take 40 mg Univers (LASIX) 40 1-15 11-15 by mouth ity of mg tablet 14:37: 00:00 in the [place] 45 :00 morning. Medical Branch spironolact 2021-11- No 100mg Take 100 Univers one 100 mg 1-15 11-15 mg by ity of tablet 14:37: 00:00 mouth in [place] 45 :00 the Medical morning. Branch furosemide 2021-11- No 40mg Take 40 mg Univers (LASIX) 40 1-15 11-15 by mouth ity of mg tablet 14:37: 00:00 in the [place] 45 :00 morning. Medical Branch spironolact 2021-11- No 100mg Take 100 Univers one 100 mg 1-15 11-15 mg by ity of tablet 14:37: 00:00 mouth in [place] 45 :00 the Medical morning. Branch furosemide 2021-11- No 40mg Take 40 mg Univers (LASIX) 40 1-15 11-15 by mouth ity of mg tablet 14:37: 00:00 in the [place] 45 :00 morning. Medical Branch spironolact 2021-11- No 100mg Take 100 Univers one 100 mg 1-15 11-15 mg by ity of tablet 14:37: 00:00 mouth in [place] 45 :00 the Medical morning. Branch furosemide 2021-11- No 40mg Take 40 mg Univers (LASIX) 40 1-15 11-15 by mouth ity of mg tablet 14:37: 00:00 in the [place] 45 :00 morning. Medical Branch spironolact 2021-11- No 100mg Take 100 Univers one 100 mg 1-15 11-15 mg by ity of tablet 14:37: 00:00 mouth in [place] 45 :00 the Medical morning. Branch lactulose 2021-11 Yes 45mL 45 mL, Univer s (CEPHULAC) 1-15 Oral, TID, ity of solution 45 02:00: First dose [place] mL 00 (after Medical last Branch modificati on) on Sat09/24/22 at 1999, Until Discontinu ed, Routine furosemide 2021-11- No [id number] 80mg Take 1 Univers 80 mg -15 - 55716 tablet by ity of tablet 00:00: 05:59 mouth [place] 00 :00 every Medical morning Branch and evening for 60 days. furosemide 2021-11- No [id number] 80mg Take 1 [facility] 80 mg 1-15 - 96584 tablet by ity of tablet 00:00: 05:59 mouth [place] 00 :00 every Medical morning Branch and evening for 60 days. furosemide 2021-11- No [id number] 80mg Take 1 [facility] 80 mg 1-15 - 54246 tablet by ity of tablet 00:00: 05:59 mouth [place] 00 :00 every Medical morning Branch and evening for 60 days. furosemide 2021-11- No [id number] 80mg Take 1 [facility] 80 mg 1-15 - 37392 tablet by ity of tablet 00:00: 05:59 mouth [place] 00 :00 every Medical morning Branch and evening for 60 days. furosemide 2021-11- No [id number] 80mg Take 1 Univers 80 mg 11-25 70830 tablet by ity of tablet 00:00: 05:59 mouth [place] 00 :00 every Medical morning Branch and evening for 60 days. furosemide 2021-11- No [id number] 80mg Take 1 [facility] 80 mg 11-25 [id number] tablet by ity of tablet 00:00: 05:59 mouth [place] 00 :00 every Medical morning Branch and evening for 60 days. furosemide 2021-11- No [id number] 80mg Take 1 [facility] 80 mg 11-25 [id number] tablet by ity of tablet 00:00: 05:59 mouth [place] 00 :00 every Medical morning Branch and evening for 60 days. furosemide 2021-11- No [id number] 80mg Take 1 [facility] 80 mg 11-25 [id number] tablet by ity of tablet 00:00: 00:00 mouth [place] 00 :00 every Medical morning Branch and evening for 60 days. furosemide 2021-11- No [id number] 80mg Take 1 [facility] 80 mg 11-25 [id number] tablet by ity of tablet 00:00: 00:00 mouth [place] 00 :00 every Medical morning Branch and evening for 60 days. furosemide 2021-11- No [id number] 80mg Take 1 [facility] 80 mg 11-25 [id number] tablet by ity of tablet 00:00: 00:00 mouth [place] 00 :00 every Medical morning Branch and evening for 60 days. ciprofloxac 2021-11- No [id number] 500mg Take 1 Univers in HCl 500 11-25 tablet by it y of mg tablet 00:00: 05:59 mouth in [place] 00 :00 the Medical morning Branch for 1 day. ciprofloxac 2021-11- No [id number] 500mg Take 1 Univers in HCl 500 11-25 tablet by it y of mg tablet 00:00: 05:59 mouth in [place] 00 :00 the Medical morning Branch for 1 day. ciprofloxac 2021-11- No [id number] 500mg Take 1 [facility] in HCl 500 11-25 tablet by it y of mg tablet 00:00: 05:59 mouth in [place] 00 :00 the Medical morning Branch for 1 day. ciprofloxac 2021-11- No [id number] 500mg Take 1 Univers in HCl 500 11-25 tablet by it y of mg tablet 00:00: 05:59 mouth in [place] 00 :00 the Medical morning Branch for 1 day. ciprofloxac 2021-11- No [id number] 500mg Take 1 Univers in HCl 500 11-25 tablet by it y of mg tablet 00:00: 05:59 mouth in [place] 00 :00 the Medical morning Branch for 1 day. ciprofloxac 2021-11- No [id number] 500mg Take 1 [facility] in HCl 500 11-25 tablet by it y of mg tablet 00:00: 05:59 mouth in [place] 00 :00 the Medical morning Branch for 1 day. albumin 2021-11 Yes IV Univers (ALBUMINAR -14 Infusion, ity of 25%) 25 % 21:47: CONTINUOUS [place] injection 29 PRN, Medical Starting Branch on Sat09/24/22 at 1547, Until Discontinu ed furosemide 2021-11 Yes 80mg 80 mg, Unive rs (LASIX) 11-24 Slow IV ity of injection 21:00: Push, [place] 80 mg 00 DAILY, Medical First dose Branch (after last modificati on) on Sat09/24/22 at 1500, Until Discontinu ed, Routine furosemide 2021-11- No 60mg 60 mg, Univ ers (LASIX) 11-24 Slow IV ity of injection 15:00: 16:10 Push, QAM, [place] 60 mg 00 :02 First dose Medical (after Branch last modificati on) on Sat09/24/22 at 0900, Until Discontinu ed, Routine ipratropium 2021-11 Yes 3mL 3 mL, Unive rs -albuteroL 1-14 Inhalation ity of (DUONEB) 02:45: , QIDPRN, [place] 0.5 mg-3 00 Starting Medical mg(2.5 mg on [place] Branch base)/3 mL 09/23/22 nebulizer at 2045, solution 3 Until mL Discontinu ed, Routine, Wheezing furosemide 2021-11 No 80mg 80 mg, Univ ers (LASIX) 11-23 Slow IV ity of injection 18:30: 18:54 Push, [place] 80 mg 00 :00 ONCE, 1 Medical dose, On Branch 09/23/22 at 1230, Routine furosemide 2021-11 No 40mg 40 mg, Univ ers (LASIX) 11-22 Slow IV ity of injection 21:00: 22:38 Push, [place] 40 mg 00 :00 ONCE, 1 Medical dose, On Branch 09/22/22 at 1500, Routine furosemide 2021-11 No 80mg 80 mg, Univ ers (LASIX) 11-22 Oral, ity of tablet 80 15:00: 17:44 DAILY, [place] mg 00 :42 First dose Medical (after Branch last modificati on) on 09/22/22 at 0900, Until Discontinu ed, Routine magnesium 2021-11 No 2g 2 g, IV Univ ers sulfate in 11-22 Piggyback, it y of water 2 14:00: 15:28 Administer [place] gram/50 mL 00 :00 over 60 Medica l (4 %) Minutes, Branch infusion 2 ONCE, 1 g dose, On 09/22/22 at 0800, Routine calcium 2021-11 No 1g 1 g, IV Univer s gluconate 1 11-21 Infusion, it y of g in NaCl 23:30: 23:44 at 100 [place] 50 mL 00 :06 mL/hr Medical (ISO-OSM) Administer Bran ch RTU IV over 30 infusion 1 Minutes, g ONCE, 1 dose, On Sat09/21/22 at 1730, Routine ipratropium 2021-11 No 3mL 3 mL, Univ ers -albuteroL 11-21 Inhalation it y of (DUONEB) 22:00: 02:30 , QID, [place] 0.5 mg-3 00 :44 First dose Medic al mg(2.5 mg on Sat Branch )/3 mL 09/21/22 nebulizer at 1600, solution 3 Until mL Discontinu ed, Routine furosemide 2021-11- No 20mg 20 mg, Univ ers (LASIX) 11-21 Oral, ONCE ity o f tablet 20 18:15: 18:37 NOW, 1 [place] mg 00 :00 dose, On Medical Fri Branch 09/21/22 at 1215, Routine spironolact 2021-11 Yes 200mg 200 mg, Un dante one 11-21 Oral, ity of (ALDACTONE) 15:00: DAILY, [place] tablet 200 00 First dose Med ical mg (after Branch last modificati on) on Sat09/21/22 at 0900, Until Discontinu ed, Routine pantoprazol 2021-11 Yes 40mg 40 mg, Univ ers e 11-21 Oral, ity of (PROTONIX) 15:00: DAILY, [place] EC tablet 00 First dose Medi kelsey 40 mg on Fri Branch 09/21/22 at 0900, Until Discontinu ed, Routine furosemide 2021-11- No 60mg 60 mg, Univ ers (LASIX) 11-21 Oral, ity of tablet 60 15:00: 17:21 DAILY, [place] mg 00 :08 First dose Medical (after Branch last modificati on) on Sat09/21/22 at 0900, Until Discontinu ed, Routine atorvastati 2021-11 Yes 40mg 40 mg, Univ ers n (LIPITOR) 11-21 Oral, QHS, it y of tablet 40 03:00: First dose [place] mg 00 on [facility] 09/20/22 Branch at 2100, Until Discontinu ed, Routine albumin 2021-11- No IV Univers (ALBUMINAR 11-20-10 Infusion, ity of 25%) 25 % 22:46: 22:46 CONTINUOUS [place] injection 49 :49 PRN, Medical Starting Branch on [place] 09/20/22 at 1646, Until Discontinu ed HYDROcodone 2021-11 Yes 1{tbl} 1 tablet, Univers -acetaminop -10 Oral, ity of hen (NORCO 17:30: Q6HPRN, [place] 5) 5-325 mg 17 Starting Medi [place]el[place] tablet 1 on [facility] Branch tablet 09/20/22 at 1130, Until Discontinu ed, Routine, Pain (scale 7-10) enoxaparin 2021-11 Yes 40mg 40 mg, Unive rs (LOVENOX) -10 Subcutaneo ity of injection 15:00: us, DAILY, [place] 40 mg 00 First dose Medical on [facility] Branch 09/20/22 at 0900, Until Discontinu ed, Routine ciprofloxac 2021-11- No 500mg 500 mg, U nivers in HCl 11-2017 Oral, ity of (CIPRO) 15:00: 14:59 DAILY, 7 [place] tablet 500 00 :00 doses, Medical mg First dose Branch on [facility] 09/20/22 at 0900, Last dose on Sat09/26/22 at 0900, TATIANA
Re ason for Anti-Infec tive: Empiric Therapy for Suspected Infection< br>Empiric Therapy Site: Abdominal< br>Duratio n of therapy: 5 days lactulose 2021-11 No 45mL 45 mL, Unive rs (CEPHULAC) 11-2014 Oral, TID, it y of solution 45 14:00: 16:10 First dose [place] mL 00 :44 on [facility] Medical 09/20/22 Branch at 0800, Until Discontinu ed, Routine acetaminoph 2021-11 Yes 1{tbl} 1 tablet, Univers en-codeine -10 Oral, ity of (TYLENOL 08:22: Q6HPRN, [place] #3) 300-30 44 Starting Medic al mg tablet 1 on [facility] Branch tablet 09/20/22 at 0222, Until Discontinu ed, Routine, Pain (scale 4-6) amLODIPine 2021-11 Yes 5mg 5 mg, Univer s (NORVASC) 1-10 Oral, ity of tablet 5 mg 06:45: DAILY, [place] 00 First dose Medical on [facility] Branch 09/20/22 at 0045, Until Discontinu ed, Routine HYDROcodone 2021-11 No 1{tbl} 1 tablet, Univers -acetaminop 11-20 11-10 Oral, ity of hen (NORCO 06:45: 07:09 ONCE, 1 [place] 5) 5-325 mg 00 :00 dose, On Medi [place]elsey tablet 1 [facility] tablet 09/20/22 at 0045, [place]ATIANA spironolact 2021-11 No 100mg 100 mg, U nivers one -10 11-10 Oral, ity of (ALDACTONE) 05:00: 14:58 DAILY, [place] tablet 100 00 :43 First dose Med ical mg on Sat Branch 09/19/22 at 2300, Until Discontinu ed, Routine furosemide 2021-11 No 40mg 40 mg, Univ ers (LASIX) 11-20 11-10 Oral, ity of tablet 40 05:00: 14:58 DAILY, [place] mg 00 :36 First dose Medical on Sat Branch 09/19/22 at 2300, Until Discontinu ed, Routine acetaminoph 2021-11 Yes 650mg 650 mg, Un dante en 10 Oral, ity of (TYLENOL) 04:21: Q6HPRN, [place] tablet 650 37 Starting Medic al mg on Sat Branch 09/19/22 at 2221, Until Discontinu ed, Routine, Pain (scale 1-3) atorvastati 2021-11 Yes 40mg Take 40 mg Univers n 40 mg 1-09 by mouth ity of tablet 22:56: at [place] [address] bedtime. Medical Branch furosemide 2021-11 Yes 40mg Take 40 mg U nivers (LASIX) 40 1-09 by mouth ity o f mg tablet 22:56: in the [place] [address] morning. Medical Branch spironolact 2021-11 Yes 100mg Take 100 U nivers one 100 mg 1-09 mg by ity of tablet 22:56: mouth in [place] [address] the Medical morning. Branch atorvastati 2021-11 Yes 40mg Take 40 mg Univers n 40 mg 1-09 by mouth ity of tablet 22:56: at [place] [address] bedtime. Medical Branch furosemide 2021-11 Yes 40mg Take 40 mg U nivers (LASIX) 40 1-09 by mouth ity o f mg tablet 22:56: in the [place] [address] morning. Medical Branch spironolact 2021-11 Yes 100mg Take 100 U nivers one 100 mg 1-09 mg by ity of tablet 22:56: mouth in [place] [address] the Medical morning. Branch cholecalcif 2021-11- No 125ug Take 125 Univers jaison, 11-19 11-09 mcg by ity of vitamin D3, 22:56: 00:00 mouth [place] 125 mcg 55 :00 daily. Medical (5,000 Branch unit) TbDL Diclofenac 2021-11- No 2g Apply 2 g U nivers Sodium 1 % 11-19 to area(s) it y of gel 22:56: 00:00 2 (two) [place] 55 :00 times Medical daily. Branch Apply 2g to bilateral knees 2 times a day cholecalcif 2021-11- No 125ug Take 125 Univers ja[place], 11-19 mcg by ity of vitamin D3, 22:56: 00:00 mouth [place] 125 mcg 55 :00 daily. Medical (5,000 Branch unit) TbDL Diclofenac 2021-11- No 2g Apply 2 g U nivers Sodium 1 % 11-19 to area(s) it y of gel 22:56: 00:00 2 (two) [place] 55 :00 times Medical daily. Branch Apply 2g to bilateral knees 2 times a day cholecalcif 2021-11- No 125ug Take 125 Univers ja[place], 11-19 mcg by ity of vitamin D3, 22:56: 00:00 mouth [place] 125 mcg 55 :00 daily. Medical (5,000 Branch unit) TbDL Diclofenac 2021-11- No 2g Apply 2 g U nivers Sodium 1 % 11-19 to area(s) it y of gel 22:56: 00:00 2 (two) [place] 55 :00 times Medical daily. Branch Apply 2g to bilateral knees 2 times a day cholecalcif 2021-11- No 125ug Take 125 Univers [place], 11-19 mcg by ity of vitamin D3, 22:56: 00:00 mouth [place] 125 mcg 55 :00 daily. Medical (5,000 Branch unit) TbDL Diclofenac 2021-11- No 2g Apply 2 g U nivers Sodium 1 % 11-19 to area(s) it y of gel 22:56: 00:00 2 (two) [place] 55 :00 times Medical daily. Branch Apply 2g to bilateral knees 2 times a day cholecalcif 2021-11- No 125ug Take 125 Univers [place], 11-19 mcg by ity of vitamin D3, 22:56: 00:00 mouth [place] 125 mcg 55 :00 daily. Medical (5,000 Branch unit) TbDL Diclofenac 2021-11 No 2g Apply 2 g U nivers Sodium 1 % 11-19 to area(s) it y of gel 22:56: 00:00 2 (two) [place] 55 :00 times Medical daily. Branch Apply 2g to bilateral knees 2 times a day cholecalcif 2021-11- No 125ug Take 125 Univers [place], 11-19 mcg by ity of vitamin D3, 22:56: 00:00 mouth [place] 125 [place]cg 55 :00 daily. Medical (5,000 Branch unit) TbDL Diclofenac 2021-11- No 2g Apply 2 g U nivers Sodium 1 % 11-19 to area(s) it y of gel 22:56: 00:00 2 (two) [place] 55 :00 times Medical daily. Branch Apply 2g to bilateral knees 2 times a day cholecalcif 2021-11 No 125ug Take 125 Univers ja[place], 11-19 mcg by ity of vitamin D3, 22:56: 00:00 mouth [place] 125 [place]cg 55 :00 daily. Medical (5,000 Branch unit) TbDL Diclofenac 2021-11- No 2g Apply 2 g U nivers Sodium 1 % 11-19 to area(s) it y of gel 22:56: 00:00 2 (two) [place] 55 :00 times Medical daily. Branch Apply 2g to bilateral knees 2 times a day ciprofloxac 0 Yes [id number] 500mg Take 1 [facility] in HCl 500 8-10 tablet by ity of mg tablet 00:00: mouth in [place] 00 the Medical morning. Branch ciprofloxac 0 Yes [id number] 500mg Take 1 [facility] in HCl 500 8-10 tablet by ity of mg tablet 00:00: mouth in [place] 00 the Medical morning. Branch ciprofloxac 0 Yes [id number] 500mg Take 1 [facility] in HCl 500 8-10 tablet by ity of mg tablet 00:00: mouth in [place] 00 the Medical morning. Branch ciprofloxac 0 Yes [id number] 500mg Take 1 [facility] in HCl 500 8-10 tablet by ity of mg tablet 00:00: mouth in [place] 00 the Medical morning. Branch ciprofloxac 2- No [id number] 500mg Take 1 [facility] in HCl 500 8-10 11-09 tablet by ity of mg tablet 00:00: 00:00 mouth in [place] 00 :00 the Medical morning. Branch ciprofloxac 2- No [id number] 500mg Take 1 Univers in HCl 500 8-10 11-09 tablet by ity of mg tablet 00:00: 00:00 mouth in [place] 00 :00 the Medical morning. Branch ciprofloxac 2021- No [id number] 500mg Take 1 Univers in HCl 500 8-10 09-19 tablet by ity of mg tablet 00:00: 00:00 mouth in [place] 00 :00 the Medical morning. Branch ciprofloxac 2021- No [id number] 500mg Take 1 Univers in HCl 500 8-10 09-19 tablet by ity of mg tablet 00:00: 00:00 mouth in [place] 00 :00 the Medical morning. Branch ciprofloxac 2021- No [id number] 500mg Take 1 Univers in HCl 500 8-10 09-19 tablet by ity of mg tablet 00:00: 00:00 mouth in [place] 00 :00 the Medical morning. Branch ciprofloxac 2021- No [id number] 500mg Take 1 [facility] in HCl 500 8-10 09 tablet by ity of mg tablet 00:00: 00:00 mouth in [place] 00 :00 the Medical morning. Branch ciprofloxac 2021- No [id number] 500mg Take 1 [facility] in HCl 500 8-10 09 tablet by ity of mg tablet 00:00: 00:00 mouth in [place] 00 :00 the Medical morning. Branch atorvastati Yes 40mg Take 40 mg Univers n 40 mg 8-09 by mouth ity of tablet 17:50: at [place] 04 bedtime. Medical Branch cholecalcif Yes 125ug Take 125 U nivers jaison, 8-09 mcg by ity of vitamin D3, 17:50: mouth [place] 125 mcg 04 daily. Medical (5,000 Branch unit) TbDL Diclofenac Yes 2g Apply 2 g Un dante Sodium 8 to area(s) ity of (VOLTAREN) 17:50: 2 (two) [place] 1 % gel 04 times Medical daily. Branch Apply 2g to bilateral knees 2 times a day atorvastati Yes 40mg Take 40 mg Univers n 40 mg 8-09 by mouth ity of tablet 17:50: at [place] 04 bedtime. Medical Branch cholecalcif Yes 125ug Take 125 U nivers jaison, 8-09 mcg by ity of vitamin D3, 17:50: mouth [place] 125 mcg 04 daily. Medical (5,000 Branch unit) TbDL Diclofenac Yes 2g Apply 2 g Un dante Sodium 8 to area(s) ity of (VOLTAREN) 17:50: 2 (two) [place] 1 % gel 04 times Medical daily. Branch Apply 2g to bilateral knees 2 times a day atorvastati Yes 40mg Take 40 mg Univers n 40 mg 8-09 by mouth ity of tablet 17:50: at [place] 04 bedtime. Medical Branch cholecalcif Yes 125ug Take 125 U nivers jaison, 8-09 mcg by ity of vitamin D3, 17:50: mouth [place] 125 mcg 04 daily. Medical (5,000 Branch unit) TbDL Diclofenac Yes 2g Apply 2 g Un dante Sodium 8- to area(s) ity of (VOLTAREN) 17:50: 2 (two) [place] 1 % gel 04 times Medical daily. Branch Apply 2g to bilateral knees 2 times a day atorvastati 0 Yes 40mg Take 40 mg Univers n 40 mg 8-09 by mouth ity of tablet 17:50: at [place] 04 bedtime. Medical Branch cholecalcif 0 Yes 125ug Take 125 U nivers jaison, 8-09 mcg by ity of vitamin D3, 17:50: mouth [place] 125 mcg 04 daily. Medical (5,000 Branch unit) TbDL Diclofenac Yes 2g Apply 2 g Un dante Sodium 809 to area(s) ity of (VOLTAREN) 17:50: 2 (two) [place] 1 % gel 04 times Medical daily. Branch Apply 2g to bilateral knees 2 times a day furosemide 2022-0 Yes [id number] 40mg Take 1 Univers 40 mg 8-09 tablet by ity of tablet 00:00: mouth [place] 00 every Medical morning Branch and evening. spironolact 2022-0 Yes [id number] 100mg Take 1 [facility] one 100 mg 8-09 tablet by ity of tablet 00:00: mouth in [place] 00 the Medical morning Branch and 1 tablet in the evening. nystatin 2022-0 Yes [id number] Apply to Univers 100,000 8-09 area(s) 2 ity of unit/gram 00:00: (two) [place] powder 00 times Medical daily. Branch furosemide 2022-0 Yes [id number] 40mg Take 1 [facility] 40 mg 8-09 tablet by ity of tablet 00:00: mouth [place] 00 every Medical morning Branch and evening. spironolact 2022-0 Yes [id number] 100mg Take 1 [facility] one 100 mg 8-09 tablet by ity of tablet 00:00: mouth in [place] 00 the Medical morning Branch and 1 tablet in the evening. nystatin 2022-0 Yes [id number] Apply to Univers 100,000 8-09 area(s) 2 ity of unit/gram 00:00: (two) [place] powder 00 times Medical daily. Branch furosemide 2022-0 Yes [id number] 40mg Take 1 Univers 40 mg 8-09 tablet by ity of tablet 00:00: mouth [place] 00 every Medical morning Branch and evening. spironolact 2022-0 Yes [id number] 100mg Take 1 [facility] one 100 mg 8-09 tablet by ity of tablet 00:00: mouth in [place] 00 the Medical morning Branch and 1 tablet in the evening. nystatin 2022-0 Yes [id number] Apply to Univers 100,000 8-09 area(s) 2 ity of unit/gram 00:00: (two) [place] powder 00 times Medical daily. Branch furosemide 2022-0 Yes [id number] 40mg Take 1 Univers 40 mg 8-09 tablet by ity of tablet 00:00: mouth [place] 00 every Medical morning Branch and evening. spironolact 2022-0 Yes [id number] 100mg Take 1 [facility] one 100 mg 8-09 tablet by ity of tablet 00:00: mouth in [place] 00 the Medical morning Branch and 1 tablet in the evening. nystatin 2022-0 Yes [id number] Apply to Univers 100,000 06-19 area(s) 2 ity of unit/gram 00:00: (two) [place] powder 00 times Medical daily. Branch furosemide 2021-0 2021- No [id number] 40mg Take 1 Univers 40 mg 06-19 tablet by ity of tablet 00:00: 00:00 mouth [place] 00 :00 every Medical morning Branch and evening. spironolact 2021-0 2021- No [id number] 100mg Take 1 Univers one 100 mg 06-19 tablet by ity of tablet 00:00: 00:00 mouth in [place] 00 :00 the Medical morning Branch and 1 tablet in the evening. nystatin 2021-0 2021- No [id number] Apply to Univers 100,000 06-19 area(s) 2 ity of unit/gram 00:00: 00:00 (two) [place] powder 00 :00 times Medical daily. Branch furosemide 2021-0 2021- No [id number] 40mg Take 1 [facility] 40 mg 06-19 tablet by [facility] of tablet 00:00: 00:00 mouth [place] 00 :00 every Medical morning Branch and evening. spironolact 2021-0 2021- No [id number] 100mg Take 1 [facility] one 100 mg 06-19 tablet by ity of tablet 00:00: 00:00 mouth in [place] 00 :00 the Medical morning Branch and 1 tablet in the evening. nystatin 2021-0 2021- No [id number] Apply to [facility] 100,000 06-19 area(s) 2 ity of unit/gram 00:00: 00:00 (two) [place] powder 00 :00 times Medical daily. Branch furosemide 2021-0 2021- No [id number] 40mg Take 1 [facility] 40 mg 06-19 tablet by ity of tablet 00:00: 00:00 mouth [place] 00 :00 every Medical morning Branch and evening. spironolact 202-0 2021- No [id number] 100mg Take 1 [facility] one 100 mg 06-19 tablet by ity of tablet 00:00: 00:00 mouth in [place] 00 :00 the Medical morning Branch and 1 tablet in the evening. nystatin 2021-0 2021- No [id number] Apply to [facility] 100,000 06-19 area(s) 2 ity of unit/gram 00:00: 00:00 (two) [place] powder 00 :00 times Medical daily. Branch furosemide 2021-0 2021- No [id number] 40mg Take 1 [facility] 40 mg 06-19 tablet by ity of tablet 00:00: 00:00 mouth [place] 00 :00 every Medical morning Branch and evening. spironolact 2021-0 2021- No [id number] 100mg Take 1 [facility] one 100 mg 06-19 tablet by ity of tablet 00:00: 00:00 mouth in [place] 00 :00 the Medical morning Branch and 1 tablet in the evening. nystatin 2021-0 2021- No [id number] Apply to [facility] 100,000 06-19 area(s) 2 ity of unit/gram 00:00: 00:00 (two) [place] powder 00 :00 times Medical daily. Branch furosemide 2021-0 2021- No [id number] 40mg Take 1 [facility] 40 mg 06-19 tablet by ity of tablet 00:00: 00:00 mouth [place] 00 :00 every Medical morning Branch and evening. spironolact 2021-0 2021- No [id number] 100mg Take 1 [facility] one 100 mg 06-19 tablet by ity of tablet 00:00: 00:00 mouth in [place] 00 :00 the Medical morning Branch and 1 tablet in the evening. nystatin 2021-0 2021- No [id number] Apply to [facility] 100,000 06-19 area(s) 2 ity of unit/gram 00:00: 00:00 (two) [place] powder 00 :00 times Medical daily. Branch furosemide 2021-0 2021- No [id number] 40mg Take 1 [facility] 40 mg 06-19 tablet by ity of tablet 00:00: 00:00 mouth [place] 00 :00 every Medical morning Branch and evening. spironolact 202-0 2- No [id number] 100mg Take 1 [facility] one 100 mg 06-19 tablet by ity of tablet 00:00: 00:00 mouth in [place] 00 :00 the Medical morning Branch and 1 tablet in the evening. nystatin 2022-0 2022- No [id number] Apply to [facility] 100,000 06-19 area(s) 2 ity of unit/gram 00:00: 00:00 (two) [place] powder 00 :00 times Medical daily. Branch furosemide 2021-0 2021- No [id number] 40mg Take 1 [facility] 40 mg 06-19 tablet by ity of tablet 00:00: 00:00 mouth [place] 00 :00 every Medical morning Branch and evening. spironolact 2021-0 2021- No [id number] 100mg Take 1 [facility] one 100 mg 06-19 tablet by ity of tablet 00:00: 00:00 mouth in [place] 00 :00 the Medical morning Branch and 1 tablet in the evening. nystatin 2021-0 2021- No [id number] Apply to [facility] 100,000 06-19 area(s) 2 ity of unit/gram 00:00: 00:00 (two) [place] powder 00 :00 times Medical daily. Branch furosemide 2021-0 2021- No [id number] 40mg Take 1 [facility] 40 mg 05-17 tablet by ity of tablet 00:00: 00:00 mouth [place] 00 :00 daily for Medical 30 days. Branch spironolact 2-0 2- No [id number] 100mg Take 1 [facility] one 100 mg 05-17 tablet by ity of tablet 00:00: 00:00 mouth [place] 00 :00 daily. Medical Branch lactulose 2022-0 Yes [id number] 45mL Take 45 mL [facility] 10 gram/15 4-15 by mouth 3 ity of mL solution 00:00: (three) [place] 00 times Medical daily. Branch lactulose 2022-0 Yes [id number] 45mL Take 45 mL [facility] 10 gram/15 4-15 by mouth 3 ity of mL solution 00:00: (three) [place] 00 times Medical daily. Branch lactulose 2022-0 Yes [id number] 45mL Take 45 mL [facility] 10 gram/15 4-15 by mouth 3 ity of mL solution 00:00: (three) [place] 00 times Medical daily. Branch lactulose 2022-0 Yes [id number] 45mL Take 45 mL [facility] 10 gram/15 4-15 by mouth 3 ity of mL solution 00:00: (three) [place] 00 times Medical daily. Branch lactulose 2022-0 Yes [id number] 45mL Take 45 mL [facility] 10 gram/15 4-15 by mouth 3 ity of mL solution 00:00: (three) [place] 00 times Medical daily. Branch lactulose 2022-0 Yes [id number] 45mL Take 45 mL [facility] 10 gram/15 4-15 by mouth 3 ity of mL solution 00:00: (three) [place] 00 times Medical daily. Branch lactulose 2022-0 Yes [id number] 45mL Take 45 mL [facility] 10 gram/15 4-15 by mouth 3 ity of mL solution 00:00: (three) [place] 00 times Medical daily. Branch lactulose 2022-0 Yes [id number] 45mL Take 45 mL [facility] 10 gram/15 4-15 by mouth 3 ity of mL solution 00:00: (three) [place] 00 times Medical daily. Branch lactulose 2022-0 Yes [id number] 45mL Take 45 mL [facility] 10 gram/15 4-15 by mouth 3 ity of mL solution 00:00: (three) [place] 00 times Medical daily. Branch lactulose 2022-0 Yes [id number] 45mL Take 45 mL [facility] 10 gram/15 4-15 by mouth 3 ity of mL solution 00:00: (three) [place] 00 times Medical daily. Branch lactulose 2022-0 Yes [id number] 45mL Take 45 mL [facility] 10 gram/15 4-15 by mouth 3 ity of mL solution 00:00: (three) [place] 00 times Medical daily. Branch lactulose 2022-0 Yes [id number] 45mL Take 45 mL [facility] 10 gram/15 4-15 by mouth 3 ity of mL solution 00:00: (three) [place] 00 times Medical daily. Branch lactulose 2022-0 Yes [id number] 45mL Take 45 mL [facility] 10 gram/15 4-15 by mouth 3 ity of mL solution 00:00: (three) [place] 00 times Medical daily. Branch lactulose 2022-0 2022- No [id number] 45mL Take 45 mL [facility] 10 gram/15 4-15 11-29 by mouth 3 it y of mL solution 00:00: 00:00 (three) [place] 00 :00 times Medical daily. Branch lactulose 2022-0 2022- No [id number] 45mL Take 45 mL [facility] 10 gram/15 02-23 by mouth 3 it y of mL solution 00:00: 00:00 (three) [place] 00 :00 times Medical daily. Branch lactulose 2021- No [id number] 45mL Take 45 mL [facility] 10 gram/15 02-23 by mouth 3 it y of mL solution 00:00: 00:00 (three) [place] 00 :00 times Medical daily. Branch sulfamethox 2021- No [id number] 1{tbl} Take 1 [facility] azole-trime 02-23 tablet by it y of thoprim 00:00: 00:00 mouth [place] (BACTRIM 00 :00 daily. Medical DS) 800-160 Branch mg per tablet acetaminoph 2021- No [id number] 1{tbl} Take 1 U nivers en-codeine 02-23 tablet by ity of 300-30 mg 00:00: 00:00 mouth [place] tablet 00 :00 every 4 Medical (four) Branch hours as needed for Pain (scale 4-6). Indication s: acute pain pantoprazol Yes [id number] 40mg Take 1 [facility] e 40 mg EC 3-02 tablet by ity of tablet 00:00: mouth [place] 00 daily. Medical Branch pantoprazol Yes [id number] 40mg Take 1 [facility] e 40 mg EC 3-02 tablet by ity of tablet 00:00: mouth [place] 00 daily. Medical Branch pantoprazol Yes [id number] 40mg Take 1 [facility] e 40 mg EC 3-02 tablet by ity of tablet 00:00: mouth [place] 00 daily. Medical Branch pantoprazol Yes [id number] 40mg Take 1 [facility] e 40 mg EC 3-02 tablet by ity of tablet 00:00: mouth [place] 00 daily. Medical Branch pantoprazol 2021- No [id number] 40mg Take 1 [facility] e 40 mg EC 3-02 - tablet by ity of tablet 00:00: 00:00 mouth [place] 00 :00 daily. Medical Branch pantoprazol 2021- No [id number] 40mg Take 1 [facility] e 40 mg EC 3-02 09-19 tablet by ity of tablet 00:00: 00:00 mouth [place] 00 :00 daily. Medical Branch pantoprazol 2021- No [id number] 40mg Take 1 [facility] e 40 mg EC 01-10 tablet by ity of tablet 00:00: 00:00 mouth [place] 00 :00 daily. Medical Branch pantoprazol 2021- No [id number] 40mg Take 1 [facility] e 40 mg EC 01-10 tablet by ity of tablet 00:00: 00:00 mouth [place] 00 :00 daily. Medical Branch pantoprazol 2021- No [id number] 40mg Take 1 [facility] e 40 mg EC 01-10 tablet by ity of tablet 00:00: 00:00 mouth [place] 00 :00 daily. Medical Branch pantoprazol 2021- No [id number] 40mg Take 1 [facility] e 40 mg EC 01-10 tablet by ity of tablet 00:00: 00:00 mouth [place] 00 :00 daily. Medical Branch pantoprazol 2021- No [id number] 40mg Take 1 [facility] e 40 mg EC 01-10 tablet by ity of tablet 00:00: 00:00 mouth [place] 00 :00 daily. Medical Branch acetaminoph 2022- No [id number] 650mg Take 2 [facility] en 325 mg 01-09 tablets by ity of tablet 00:00: 05:59 mouth [place] 00 :00 every 6 Medical (six) Branch hours as needed for Pain (scale 1-3). acetaminoph 2022- No [id number] 650mg Take 2 [facility] en 325 mg 01-09 tablets by ity of tablet 00:00: 05:59 mouth [place] 00 :00 every 6 Medical (six) Branch hours as needed for Pain (scale 1-3). acetaminoph 2022- No [id number] 650mg Take 2 [facility] en 325 mg 01-09 tablets by ity of tablet 00:00: 05:59 mouth [place] 00 :00 every 6 Medical (six) Branch hours as needed for Pain (scale 1-3). acetaminoph 2022- No [id number] 650mg Take 2 [facility] en 325 mg 01-09 tablets by ity of tablet 00:00: 05:59 mouth [place] 00 :00 every 6 Medical (six) Branch hours as needed for Pain (scale 1-3). acetaminoph 2022- No [id number] 650mg Take 2 [facility] en 325 mg 3- tablets by ity of tablet 00:00: 05:59 mouth [place] 00 :00 every 6 Medical (six) Branch hours as needed for Pain (scale 1-3). acetaminoph 2022- No [id number] 650mg Take 2 [facility] en 325 mg 3- tablets by ity of tablet 00:00: 05:59 mouth [place] 00 :00 every 6 Medical (six) Branch hours as needed for Pain (scale 1-3). acetaminoph 2022- No [id number] 650mg Take 2 [facility] en 325 mg 3- tablets by ity of tablet 00:00: 05:59 mouth [place] 00 :00 every 6 Medical (six) Branch hours as needed for Pain (scale 1-3). acetaminoph 2022- No [id number] 650mg Take 2 [facility] en 325 mg 01-09- tablets by ity of tablet 00:00: 05:59 mouth [place] 00 :00 every 6 Medical (six) Branch hours as needed for Pain (scale 1-3). acetaminoph 2022- No [id number] 650mg Take 2 [facility] en 325 mg 01-09-02 tablets by ity of tablet 00:00: 05:59 mouth [place] 00 :00 every 6 Medical (six) Branch hours as needed for Pain (scale 1-3). acetaminoph 2022- No [id number] 650mg Take 2 [facility] en 325 mg 3-02 tablets by ity of tablet 00:00: 05:59 mouth [place] 00 :00 every 6 Medical (six) Branch hours as needed for Pain (scale 1-3). acetaminoph 2022- No [id number] 650mg Take 2 [facility] en 325 mg 3-11 13-02 tablets by ity of tablet 00:00: 05:59 mouth [place] 00 :00 every 6 Medical (six) Branch hours as needed for Pain (scale 1-3). acetaminoph 2022- No [id number] 650mg Take 2 [facility] en 325 mg 3- 03-02 tablets by ity of tablet 00:00: 05:59 mouth [place] 00 :00 every 6 Medical (six) Branch hours as needed for Pain (scale 1-3). acetaminoph 2022- No [id number] 650mg Take 2 [facility] en 325 mg 3- 03-02 tablets by ity of tablet 00:00: 05:59 mouth [place] 00 :00 every 6 Medical (six) Branch hours as needed for Pain (scale 1-3). acetaminoph 2022- No [id number] 650mg Take 2 [facility] en 325 mg 3- 03-02 tablets by ity of tablet 00:00: 05:59 mouth [place] 00 :00 every 6 Medical (six) Branch hours as needed for Pain (scale 1-3). acetaminoph 2022- No [id number] 650mg Take 2 [facility] en 325 mg 3 03-02 tablets by ity of tablet 00:00: 05:59 mouth [place] 00 :00 every 6 Medical (six) Branch hours as needed for Pain (scale 1-3). acetaminoph 2022- No [id number] 650mg Take 2 [facility] en 325 mg 3 03-02 tablets by ity of tablet 00:00: 05:59 mouth [place] 00 :00 every 6 Medical (six) Branch hours as needed for Pain (scale 1-3). acetaminoph 2022- No [id number] 650mg Take 2 [facility] en 325 mg 3 03-02 tablets by ity of tablet 00:00: 05:59 mouth [place] 00 :00 every 6 Medical (six) Branch hours as needed for Pain (scale 1-3). acetaminoph 2022- No [id number] 650mg Take 2 [facility] en 325 mg 3- 03-02 tablets by ity of tablet 00:00: 05:59 mouth [place] 00 :00 every 6 Medical (six) Branch hours as needed for Pain (scale 1-3). acetaminoph 2022- No [id number] 650mg Take 2 [facility] en 325 mg 3- 03-02 tablets by ity of tablet 00:00: 05:59 mouth [place] 00 :00 every 6 Medical (six) Branch hours as needed for Pain (scale 1-3). acetaminoph 2022- No [id number] 650mg Take 2 [facility] en 325 mg 01-09- tablets by ity of tablet 00:00: 05:59 mouth [place] 00 :00 every 6 Medical (six) Branch hours as needed for Pain (scale 1-3). acetaminoph 2022- No [id number] 650mg Take 2 [facility] en 325 mg 01-09 tablets by ity of tablet 00:00: 05:59 mouth [place] 00 :00 every 6 Medical (six) Branch hours as needed for Pain (scale 1-3). acetaminoph 2022- No [id number] 650mg Take 2 [facility] en 325 mg 01-09 tablets by ity of tablet 00:00: 05:59 mouth [place] 00 :00 every 6 Medical (six) Branch hours as needed for Pain (scale 1-3). acetaminoph 2022- No [id number] 650mg Take 2 [facility] en 325 mg 01-09 tablets by ity of tablet 00:00: 05:59 mouth [place] 00 :00 every 6 Medical (six) Branch hours as needed for Pain (scale 1-3). acetaminoph 2022- No [id number] 650mg Take 2 [facility] en 325 mg 01-09 tablets by ity of tablet 00:00: 05:59 mouth [place] 00 :00 every 6 Medical (six) Branch hours as needed for Pain (scale 1-3). carvediloL 2021- No [id number] 6.25mg Take 1 [facility] 6.25 mg 01-09 tablet by ity of tablet 00:00: 00:00 mouth 2 [place] 00 :00 (two) Medical times Branch daily with meals. Atorvastati Atorvastati 2018- Yes Dianelys 1 tablet Common n Calcium n Calcium 7-24 [place] in evening [facility] 00:00: - [facility] 00 [facility] Clopidogrel Clopidogrel 2018- Yes Dianelys 1 tablet Common Bisulfate Bisulfate 7-24 [facility] 00:00: - [facility] 00 [facility] Lisinopril Lisinopril Yes Dianelys 1 tablet Common 24 [facility] 00:00: - [facility] 00 [facility] Clopidogrel Clopidogrel No 1{table QD Clopidogre Bisulfate Bisulfate -24 t} l 75 MG 75 MG 00:00: Bisulfate 00 75 MG Atorvastati Atorvastati No QD Atorvastat n Calcium n Calcium 7-24 in Calcium 20 MG 20 MG 00:00: 20 MG 00 Lisinopril Lisinopril No 1{table QD Lisinopril 40 MG 40 MG 7-24 t} 40 MG 00:00: 00 amLODIPine amLODIPine Yes YANELI TAKE 1 UT Besylate 5 Besylate 5 9-10 SAMUEL M.D. TABLET BY [facility] MG Oral MG Oral 00:00: MOUTH ans Tablet Tablet 00 EVERY DAY Aspirin 325 Aspirin 325 Yes YANELI TAKE 1 UT MG Oral MG Oral 9-10 SAMUEL M.D. TABLET BY [facility] Tablet Tablet 00:00: MOUTH ans 00 EVERY DAY Atorvastati Atorvastati Yes YANELI 1 QD TAKE 1 UT n Calcium n Calcium 9-10 SAMUEL M.D. TABLET [facility] 20 MG Oral 20 MG Oral 00:00: DAILY ans Tablet Tablet 00 Clopidogrel Clopidogrel Yes YANELI QD TAKE 1 UT Bisulfate Bisulfate 9-10 SAMUEL M.D. TABLET BY [facility] 75 MG Oral 75 MG Oral 00:00: MOUTH ans Tablet Tablet 00 EVERY DAY Lisinopril Lisinopril Yes YANELI 1 QD TAKE 1 UT 20 MG Oral 20 MG Oral 9-10 SAMUEL M.D. TABLET [facility] Tablet Tablet 00:00: DAILY ans 00 amLODIPine Yes 5 mg = 1 Mem oria 5 mg oral 8-28 tab, PO, l tablet 19:26: Daily, # [place] 00 30 tab, 2 Refill(s) lisinopril Yes 20 mg = 1 Me moria 20 mg oral 8-28 tab, PO, l tablet 19:26: Daily, # [place] 00 30 tab, 2 Refill(s) clopidogrel Yes 75 mg = 1 M emoria 75 mg oral 8-28 tab, PO, l tablet 19:26: Daily, # [place] 00 30 tab, 2 Refill(s) atorvastati Yes 20 mg = 1 M emoria n 20 mg 07-08 tab, PO, l oral tablet 19:26: Bedtime, # [place] 00 30 tab, 2 Refill(s) Aspirin 325 Yes 325 mg = 1 Memoria MG Enteric 07-08 tab, PO, l Coated 19:26: Daily, # [place] Tablet 00 30 tab, 2 Refill(s) Lisinopril No Notes: Memor ia 07-08 (Same as: l 17:00: Prinivil, [place] 00 Zestril) Docusate No Notes: Memoria Sodium 50 07-07 (Same as l MG / 22:00: Senokot-S) sennosides, 00 Equiv. to PENITENTIARY 8.6 MG Anai-[place] Oral Tablet e. Tramadol No Notes: Not Mem oria 07-07 to exceed l 18:07: 400mg/day. [place] 00 (Same As: Ultra) Midazolam No 2 [...] ia 300 07-07 Route: l 18:04: INTRAARTER [place] 00 IAL, Dosing Weight 88.636, kg, ONCE, Start date: 07/07/18 13:04:00 CDT, Stop date: 07/07/18 13:04:00 CDT captopril No Notes: Memori a 07-07 Give on l 17:25: empty [place] 00 stomach. 1 hour before meal. (Same As: Capoten) remove No Notes: Memoria patch 07-07 Remove l 02:00: patch 12 [place] 00 hours after applicatio n each day. [...] not exceed l 07:07: 4 gm/day. [place] 00 (Same as: Tylenol) Spironolact No 25 mg = 2 M emoria one 8-25 tab, PO, l 16:50: Daily, # [place] 00 60 tab, 0 Refill(s) Furosemide No Daily, 0 Mem oria 8-25 Refill(s) l 16:50: [place] 00 amLODIPine No 20 mg = 2 [...] Memoria 8-25 (Same As: l 14:00: Plavix) [place] Aspirin 81 No Notes: Do Me moria MG Enteric 07-05 not crush l Coated 13:00: or chew. [place] Tablet 00 (Same As: Ecotrin) Saline No Notes: Memoria Flush 0.9% 8-25 (Same as: l 02:00: BD Posiflush) atorvastati No Notes: Papi jigna n 8-25 (Same As: l 02:00: Lipitor) sennosides, No Notes: Papi jigna PENITENTIARY 8-24 (Same as: l 22:46: Senokot) Plavix [...] Rate: 100 l 0.9% IV 20:01: ml/hr, [place] 1,000 mL 00 Infuse over: 10 hr, Route: IV, Dosing Weight 88.636 kg, Total Volume: 1,000, Start date: 07/04/18 15:01:00 CDT, Duration: 30 day, Stop date: 08/03/18 15:00:00 CDT, 2.11, m2 Saline No Notes: Memoria Flush 0.9% 824 (Same as: l 19:01: BD [place] 00 Posiflush) amLODIPine Yes [id number] 5mg Take 1 U nivers 5 mg tablet 1-17 tablet by ity of 00:00: mouth [place] 00 daily. Medical Branch amLODIPine Yes [id number] 5mg Take 1 U nivers 5 mg tablet 1-17 tablet by ity of 00:00: mouth [place] 00 daily. Medical Branch amLODIPine Yes [id number] 5mg Take 1 U nivers 5 mg tablet 1-17 tablet by ity of 00:00: mouth [place] 00 daily. Medical Branch amLODIPine Yes [id number] 5mg Take 1 U nivers 5 mg tablet 1-17 tablet by ity of 00:00: mouth [place] 00 daily. Medical Branch amLODIPine Yes [id number] 5mg Take 1 U nivers 5 mg tablet 1-17 tablet by ity of 00:00: mouth [place] 00 daily. Medical Branch amLODIPine 2016- Yes [id number] 5mg Take 1 U nivers 5 mg tablet 1-17 tablet by ity of 00:00: mouth [place] 00 daily. Medical Branch amLODIPine Yes [id number] 5mg Take 1 U nivers 5 mg tablet 1-17 tablet by ity of 00:00: mouth [place] 00 daily. Medical Branch amLODIPine Yes [id number] 5mg Take 1 U nivers 5 mg tablet 1-17 tablet by ity of 00:00: mouth [place] 00 daily. Medical Branch amLODIPine Yes [id number] 5mg Take 1 U nivers 5 mg tablet 1-17 tablet by ity of 00:00: mouth [place] 00 daily. Medical Branch amLODIPine Yes [id number] 5mg Take 1 U nivers 5 mg tablet 1-17 tablet by ity of 00:00: mouth [place] 00 daily. Medical Branch amLODIPine Yes [id number] 5mg Take 1 U nivers 5 mg tablet 1-17 tablet by ity of 00:00: mouth [place] 00 daily. Medical Branch amLODIPine Yes [id number] 5mg Take 1 U nivers 5 mg tablet 1-17 tablet by ity of 00:00: mouth [place] 00 daily. Medical Branch amLODIPine Yes [id number] 5mg Take 1 U nivers 5 mg tablet 1-17 tablet by ity of 00:00: mouth [place] 00 daily. Medical Branch amLODIPine Yes [id number] 5mg Take 1 U nivers 5 mg tablet 1-17 tablet by ity of 00:00: mouth [place] 00 daily. Medical Branch amLODIPine Yes [id number] 5mg Take 1 U nivers 5 mg tablet 1-17 tablet by ity of 00:00: mouth [place] 00 daily. Medical Branch amLODIPine Yes [id number] 5mg Take 1 U nivers 5 mg tablet 1-17 tablet by ity of 00:00: mouth [place] 00 daily. Medical Branch amLODIPine Yes [id number] 5mg Take 1 U nivers 5 mg tablet 1-17 tablet by ity of 00:00: mouth [place] 00 daily. Medical Branch amLODIPine Yes [id number] 5mg Take 1 U nivers 5 mg tablet 1-17 tablet by ity of 00:00: mouth [place] 00 daily. Medical Branch amLODIPine Yes [id number] 5mg Take 1 U nivers 5 mg tablet 1-17 tablet by ity of 00:00: mouth [place] 00 daily. Medical Branch amLODIPine Yes [id number] 5mg Take 1 U nivers 5 mg tablet 1-17 tablet by ity of 00:00: mouth [place] 00 daily. Medical Branch amLODIPine 2016-2022- No [id number] 5mg Take 1 [facility] 5 mg tablet 1-17 - tablet by it y of 00:00: 00:00 mouth [place] 00 :00 daily. Medical Branch amLODIPine 2016-2022- No [id number] 5mg Take 1 [facility] 5 mg tablet 1-17 - tablet by it y of 00:00: 00:00 mouth [place] 00 :00 daily. Medical Branch amLODIPine 2022- No [id number] 5mg Take 1 [facility] 5 mg tablet 11-27 tablet by it y of 00:00: 00:00 mouth [place] 00 :00 daily. Medical Branch Amlodipine Amlodipine Yes Dianelys 1 tablet Common Besylate Besylate [facility] Lasix Lasix Yes Dianelys 1 tablet Common [facility] Lasix 40 MG Lasix 40 MG No 1{table QD Lasix 40 t} MG Lisinopril Lisinopril No Lisinopril 40 MG 40 MG 40 MG Lisinopril Lisinopril No 1{table QD Lisinopril 40 MG 40 MG t} 40 MG Atorvastati Atorvastati No Atorvastat n Calcium n Calcium in Calcium 20 MG 20 MG 20 MG Clopidogrel Clopidogrel No Clopidogre Bisulfate Bisulfate l 75 MG 75 MG Bisulfate 75 MG Lasix 40 MG Lasix 40 MG No Lasix 40 MG Spironolact Spironolact No Spironolac one 100 MG one 100 MG tone 100 MG Amlodipine Amlodipine No 1{table QD Amlodipine Besylate 5 Besylate 5 t} Besylate 5 MG MG MG Clopidogrel Clopidogrel No 1{table QD Clopidogre Bisulfate Bisulfate t} l 75 MG 75 MG Bisulfate 75 MG Atorvastati Atorvastati No QD Atorvastat n Calcium n Calcium in Calcium 20 MG 20 MG 20 MG Amlodipine Amlodipine No Amlodipine Besylate 5 Besylate 5 Besylate 5 MG MG MG Lasix 40 MG Lasix 40 MG No Lasix 40 MG Lisinopril Lisinopril No Lisinopril 40 MG 40 MG 40 MG Atorvastati Atorvastati No Atorvastat n Calcium n Calcium in Calcium 20 MG 20 MG 20 MG Atorvastati Atorvastati No QD Atorvastat n Calcium n Calcium in Calcium 20 MG 20 MG 20 MG Spironolact Spironolact No Spironolac one 100 MG one 100 MG tone 100 MG amLODIPine amLODIPine No amLODIPine Besylate 5 Besylate 5 Besylate 5 MG MG MG Clopidogrel Clopidogrel No 1{table QD Clopidogre Bisulfate Bisulfate t} l 75 MG 75 MG Bisulfate 75 MG Lisinopril Lisinopril No 1{table QD Lisinopril 40 MG 40 MG t} 40 MG amLODIPine amLODIPine No 1{table QD amLODIPine Besylate 5 Besylate 5 t} Besylate 5 MG MG MG Clopidogrel Clopidogrel No Clopidogre Bisulfate Bisulfate l 75 MG 75 MG Bisulfate 75 MG Lasix 40 MG Lasix 40 MG No 1{table QD Lasix 40 t} MG Lasix 40 MG Lasix 40 MG No Lasix 40 MG Lisinopril Lisinopril No Lisinopril 40 MG 40 MG 40 MG Atorvastati Atorvastati No Atorvastat n Calcium n Calcium in Calcium 20 MG 20 MG 20 MG Atorvastati Atorvastati No QD Atorvastat n Calcium n Calcium in Calcium 20 MG 20 MG 20 MG Spironolact Spironolact No Spironolac one 100 MG one 100 MG tone 100 MG amLODIPine amLODIPine No amLODIPine Besylate 5 Besylate 5 Besylate 5 MG MG MG Clopidogrel Clopidogrel No 1{table QD Clopidogre Bisulfate Bisulfate t} l 75 MG 75 MG Bisulfate 75 MG Lisinopril Lisinopril No 1{table QD Lisinopril 40 MG 40 MG t} 40 MG amLODIPine amLODIPine No 1{table QD amLODIPine Besylate 5 Besylate 5 t} Besylate 5 MG MG MG Clopidogrel Clopidogrel No Clopidogre Bisulfate Bisulfate l 75 MG 75 MG Bisulfate 75 MG Lasix 40 MG Lasix 40 MG No 1{table QD Lasix 40 t} MG Lasix 40 MG Lasix 40 MG No Lasix 40 MG Lisinopril Lisinopril No Lisinopril 40 MG 40 MG 40 MG Atorvastati Atorvastati No Atorvastat n Calcium n Calcium in Calcium 20 MG 20 MG 20 MG Atorvastati Atorvastati No QD Atorvastat n Calcium n Calcium in Calcium 20 MG 20 MG 20 MG Spironolact Spironolact No Spironolac one 100 MG one 100 MG tone 100 MG amLODIPine amLODIPine No amLODIPine Besylate 5 Besylate 5 Besylate 5 MG MG MG Clopidogrel Clopidogrel No 1{table QD Clopidogre Bisulfate Bisulfate t} l 75 MG 75 MG Bisulfate 75 MG Lisinopril Lisinopril No 1{table QD Lisinopril 40 MG 40 MG t} 40 MG amLODIPine amLODIPine No 1{table QD amLODIPine Besylate 5 Besylate 5 t} Besylate 5 MG MG MG Clopidogrel Clopidogrel No Clopidogre Bisulfate Bisulfate l 75 MG 75 MG Bisulfate 75 MG Lasix 40 MG Lasix 40 MG No 1{table QD Lasix 40 t} MG Atorvastati Atorvastati No QD Atorvastat n Calcium n Calcium in Calcium 20 MG 20 MG 20 MG Spironolact Spironolact No Spironolac one 100 MG one 100 MG tone 100 MG amLODIPine amLODIPine No 1{table QD amLODIPine Besylate 5 Besylate 5 t} Besylate 5 MG MG MG Lisinopril Lisinopril No 1{table QD Lisinopril 40 MG 40 MG t} 40 MG Clopidogrel Clopidogrel No Clopidogre Bisulfate Bisulfate l 75 MG 75 MG Bisulfate 75 MG Lasix 40 MG Lasix 40 MG No Lasix 40 MG Atorvastati Atorvastati No Atorvastat n Calcium n Calcium in Calcium 20 MG 20 MG 20 MG Clopidogrel Clopidogrel No 1{table QD Clopidogre Bisulfate Bisulfate t} l 75 MG 75 MG Bisulfate 75 MG Lasix 40 MG Lasix 40 MG No 1{table QD Lasix 40 t} MG amLODIPine amLODIPine No amLODIPine Besylate 5 Besylate 5 Besylate 5 MG MG MG Lisinopril Lisinopril No Lisinopril 40 MG 40 MG 40 MG Atorvastati Atorvastati No QD Atorvastat n Calcium n Calcium in Calcium 20 MG 20 MG 20 MG Spironolact Spironolact No Spironolac one 100 MG one 100 MG tone 100 MG amLODIPine amLODIPine No 1{table QD amLODIPine Besylate 5 Besylate 5 t} Besylate 5 MG MG MG Lisinopril Lisinopril No 1{table QD Lisinopril 40 MG 40 MG t} 40 MG Clopidogrel Clopidogrel No Clopidogre Bisulfate Bisulfate l 75 MG 75 MG Bisulfate 75 MG Lasix 40 MG Lasix 40 MG No Lasix 40 MG Atorvastati Atorvastati No Atorvastat n Calcium n Calcium in Calcium 20 MG 20 MG 20 MG Clopidogrel Clopidogrel No 1{table QD Clopidogre Bisulfate Bisulfate t} l 75 MG 75 MG Bisulfate 75 MG Lasix 40 MG Lasix 40 MG No 1{table QD Lasix 40 t} MG amLODIPine amLODIPine No amLODIPine Besylate 5 Besylate 5 Besylate 5 MG MG MG Lisinopril Lisinopril No Lisinopril 40 MG 40 MG 40 MG Atorvastati Atorvastati No QD Atorvastat n Calcium n Calcium in Calcium 20 MG 20 MG 20 MG Spironolact Spironolact No Spironolac one 100 MG one 100 MG tone 100 MG amLODIPine amLODIPine No 1{table QD amLODIPine Besylate 5 Besylate 5 t} Besylate 5 MG MG MG Lisinopril Lisinopril No 1{table QD Lisinopril 40 MG 40 MG t} 40 MG Clopidogrel Clopidogrel No Clopidogre Bisulfate Bisulfate l 75 MG 75 MG Bisulfate 75 MG Lasix 40 MG Lasix 40 MG No Lasix 40 MG Atorvastati Atorvastati No Atorvastat n Calcium n Calcium in Calcium 20 MG 20 MG 20 MG Clopidogrel Clopidogrel No 1{table QD Clopidogre Bisulfate Bisulfate t} l 75 MG 75 MG Bisulfate 75 MG Lasix 40 MG Lasix 40 MG No 1{table QD Lasix 40 t} MG amLODIPine amLODIPine No amLODIPine Besylate 5 Besylate 5 Besylate 5 MG MG MG Lisinopril Lisinopril No Lisinopril 40 MG 40 MG 40 MG Atorvastati Atorvastati No QD Atorvastat n Calcium n Calcium in Calcium 20 MG 20 MG 20 MG Spironolact Spironolact No Spironolac one 100 MG one 100 MG tone 100 MG amLODIPine amLODIPine No 1{table QD amLODIPine Besylate 5 Besylate 5 t} Besylate 5 MG MG MG Lisinopril Lisinopril No 1{table QD Lisinopril 40 MG 40 MG t} 40 MG Clopidogrel Clopidogrel No Clopidogre Bisulfate Bisulfate l 75 MG 75 MG Bisulfate 75 MG Lasix 40 MG Lasix 40 MG No Lasix 40 MG Atorvastati Atorvastati No Atorvastat n Calcium n Calcium in Calcium 20 MG 20 MG 20 MG Clopidogrel Clopidogrel No 1{table QD Clopidogre Bisulfate Bisulfate t} l 75 MG 75 MG Bisulfate 75 MG Lasix 40 MG Lasix 40 MG No 1{table QD Lasix 40 t} MG amLODIPine amLODIPine No amLODIPine Besylate 5 Besylate 5 Besylate 5 MG MG MG Lisinopril Lisinopril No Lisinopril 40 MG 40 MG 40 MG Spironolact Spironolact No Spironolac one 100 MG one 100 MG tone 100 MG Lisinopril Lisinopril No 1{table QD Lisinopril 40 MG 40 MG t} 40 MG Lasix 40 MG Lasix 40 MG No Lasix 40 MG Clopidogrel Clopidogrel No Clopidogre Bisulfate Bisulfate l 75 MG 75 MG Bisulfate 75 MG Clopidogrel Clopidogrel No 1{table QD Clopidogre Bisulfate Bisulfate t} l 75 MG 75 MG Bisulfate 75 MG Atorvastati Atorvastati No Atorvastat n Calcium n Calcium in Calcium 20 MG 20 MG 20 MG Lisinopril Lisinopril No Lisinopril 40 MG 40 MG 40 MG Atorvastati Atorvastati No QD Atorvastat n Calcium n Calcium in Calcium 20 MG 20 MG 20 MG amLODIPine amLODIPine No amLODIPine Besylate 5 Besylate 5 Besylate 5 MG MG MG Lasix 40 MG Lasix 40 MG No 1{table QD Lasix 40 t} MG amLODIPine amLODIPine No 1{table QD amLODIPine Besylate 5 Besylate 5 t} Besylate 5 MG MG MG Spironolact Spironolact No Spironolac one 100 MG one 100 MG tone 100 MG Lisinopril Lisinopril No 1{table QD Lisinopril 40 MG 40 MG t} 40 MG Lasix 40 MG Lasix 40 MG No Lasix 40 MG Clopidogrel Clopidogrel No Clopidogre Bisulfate Bisulfate l 75 MG 75 MG Bisulfate 75 MG Clopidogrel Clopidogrel No 1{table QD Clopidogre Bisulfate Bisulfate t} l 75 MG 75 MG Bisulfate 75 MG Atorvastati Atorvastati No Atorvastat n Calcium n Calcium in Calcium 20 MG 20 MG 20 MG Lisinopril Lisinopril No Lisinopril 40 MG 40 MG 40 MG Atorvastati Atorvastati No QD Atorvastat n Calcium n Calcium in Calcium 20 MG 20 MG 20 MG amLODIPine amLODIPine No amLODIPine Besylate 5 Besylate 5 Besylate 5 MG MG MG Lasix 40 MG Lasix 40 MG No 1{table QD Lasix 40 t} MG amLODIPine amLODIPine No 1{table QD amLODIPine Besylate 5 Besylate 5 t} Besylate 5 MG MG MG Clopidogrel Clopidogrel No Clopidogre Bisulfate Bisulfate l 75 MG 75 MG Bisulfate 75 MG Lactulose Lactulose No 15{ml} TID Lactulose 10 GM/15ML 10 GM/15ML 10 GM/15ML Acetaminoph Acetaminoph No 2{table QID Acetaminop en 325 MG en 325 MG ts} hen 325 MG Clopidogrel Clopidogrel No 1{table QD Clopidogre Bisulfate Bisulfate t} l 75 MG 75 MG Bisulfate 75 MG Lasix 40 MG Lasix 40 MG No 2{table QD Lasix 40 ts} MG amLODIPine amLODIPine No 1{table QD amLODIPine Besylate 5 Besylate 5 t} Besylate 5 MG MG MG amLODIPine amLODIPine No amLODIPine Besylate 5 Besylate 5 Besylate 5 MG MG MG Carvedilol Carvedilol No 1{table BID Carvedilol 6.25 MG 6.25 MG t_with_ 6.25 MG food} Lisinopril Lisinopril No Lisinopril 40 MG 40 MG 40 MG Furosemide Furosemide No 1{table QD Furosemide 40 MG 40 MG t} 40 MG Pantoprazol Pantoprazol No 1{table QD Pantoprazo e Sodium 40 e Sodium 40 t} le Sodium MG MG 40 MG Lisinopril Lisinopril No 1{table QD Lisinopril 40 MG 40 MG t} 40 MG Atorvastati Atorvastati No Atorvastat n Calcium n Calcium in Calcium 20 MG 20 MG 20 MG Atorvastati Atorvastati No 1{table QD Atorvastat n Calcium n Calcium t} in Calcium 40 MG 40 MG 40 MG Spironolact Spironolact No 2{table QD Spironolac one 100 MG one 100 MG ts} tone 100 MG Lasix 40 MG Lasix 40 MG No Lasix 40 MG Clopidogrel Clopidogrel No Clopidogre Bisulfate Bisulfate l 75 MG 75 MG Bisulfate 75 MG Lactulose Lactulose No 15{ml} TID Lactulose 10 GM/15ML 10 GM/15ML 10 GM/15ML Acetaminoph Acetaminoph No 2{table QID Acetaminop en 325 MG en 325 MG ts} hen 325 MG Clopidogrel Clopidogrel No 1{table QD Clopidogre Bisulfate Bisulfate t} l 75 MG 75 MG Bisulfate 75 MG Lasix 40 MG Lasix 40 MG No 2{table QD Lasix 40 ts} MG amLODIPine amLODIPine No 1{table QD amLODIPine Besylate 5 Besylate 5 t} Besylate 5 MG MG MG amLODIPine amLODIPine No amLODIPine Besylate 5 Besylate 5 Besylate 5 MG MG MG Carvedilol Carvedilol No 1{table BID Carvedilol 6.25 MG 6.25 MG t_with_ 6.25 MG food} Lisinopril Lisinopril No Lisinopril 40 MG 40 MG 40 MG Furosemide Furosemide No 1{table QD Furosemide 40 MG 40 MG t} 40 MG Pantoprazol Pantoprazol No 1{table QD Pantoprazo e Sodium 40 e Sodium 40 t} le Sodium MG MG 40 MG Lisinopril Lisinopril No 1{table QD Lisinopril 40 MG 40 MG t} 40 MG Atorvastati Atorvastati No Atorvastat n Calcium n Calcium in Calcium 20 MG 20 MG 20 MG Atorvastati Atorvastati No 1{table QD Atorvastat n Calcium n Calcium t} in Calcium 40 MG 40 MG 40 MG Spironolact Spironolact No 2{table QD Spironolac one 100 MG one 100 MG ts} tone 100 MG Lasix 40 MG Lasix 40 MG No Lasix 40 MG Lisinopril Lisinopril No 1{table QD Lisinopril 40 MG 40 MG t} 40 MG Clopidogrel Clopidogrel No Clopidogre Bisulfate Bisulfate l 75 MG 75 MG Bisulfate 75 MG Lisinopril Lisinopril No Lisinopril 40 MG 40 MG 40 MG Lasix 40 MG Lasix 40 MG No 2{table QD Lasix 40 ts} MG Atorvastati Atorvastati No 1{table QD Atorvastat n Calcium n Calcium t} in Calcium 40 MG 40 MG 40 MG amLODIPine amLODIPine No amLODIPine Besylate 5 Besylate 5 Besylate 5 MG MG MG amLODIPine amLODIPine No 1{table QD amLODIPine Besylate 5 Besylate 5 t} Besylate 5 MG MG MG Atorvastati Atorvastati No Atorvastat n Calcium n Calcium in Calcium 20 MG 20 MG 20 MG Carvedilol Carvedilol No 1{table BID Carvedilol 6.25 MG 6.25 MG t_with_ 6.25 MG food} Furosemide Furosemide No 1{table QD Furosemide 40 MG 40 MG t} 40 MG Lasix 40 MG Lasix 40 MG No Lasix 40 MG Acetaminoph Acetaminoph No 2{table QID Acetaminop en 325 MG en 325 MG ts} hen 325 MG Pantoprazol Pantoprazol No 1{table QD Pantoprazo e Sodium 40 e Sodium 40 t} le Sodium MG MG 40 MG Clopidogrel Clopidogrel No 1{table QD Clopidogre Bisulfate Bisulfate t} l 75 MG 75 MG Bisulfate 75 MG Spironolact Spironolact No 2{table QD Spironolac one 100 MG one 100 MG ts} tone 100 MG Lactulose Lactulose No 15{ml} TID Lactulose 10 GM/15ML 10 GM/15ML 10 GM/15ML amLODIPine amLODIPine No amLODIPine Besylate 5 Besylate 5 Besylate 5 MG MG MG Pantoprazol Pantoprazol No 1{table QD Pantoprazo e Sodium 40 e Sodium 40 t} le Sodium MG MG 40 MG Atorvastati Atorvastati No Atorvastat n Calcium n Calcium in Calcium 20 MG 20 MG 20 MG Spironolact Spironolact No 2{table QD Spironolac one 100 MG one 100 MG ts} tone 100 MG amLODIPine amLODIPine No 1{table QD amLODIPine Besylate 5 Besylate 5 t} Besylate 5 MG MG MG Atorvastati Atorvastati No 1{table QD Atorvastat n Calcium n Calcium t} in Calcium 40 MG 40 MG 40 MG Lisinopril Lisinopril No 1{table QD Lisinopril 40 MG 40 MG t} 40 MG Lasix 40 MG Lasix 40 MG No Lasix 40 MG Lactulose Lactulose No 15{ml} TID Lactulose 10 GM/15ML 10 GM/15ML 10 GM/15ML Carvedilol Carvedilol No 1{table BID Carvedilol 6.25 MG 6.25 MG t_with_ 6.25 MG food} Clopidogrel Clopidogrel No Clopidogre Bisulfate Bisulfate l 75 MG 75 MG Bisulfate 75 MG Lasix 40 MG Lasix 40 MG No 2{table QD Lasix 40 ts} MG Acetaminoph Acetaminoph No 2{table QID Acetaminop en 325 MG en 325 MG ts} hen 325 MG Clopidogrel Clopidogrel No 1{table QD Clopidogre Bisulfate Bisulfate t} l 75 MG 75 MG Bisulfate 75 MG Lisinopril Lisinopril No Lisinopril 40 MG 40 MG 40 MG Furosemide Furosemide No 1{table QD Furosemide 40 MG 40 MG t} 40 MG amLODIPine amLODIPine No amLODIPine Besylate 5 Besylate 5 Besylate 5 MG MG MG Pantoprazol Pantoprazol No 1{table QD Pantoprazo e Sodium 40 e Sodium 40 t} le Sodium MG MG 40 MG Atorvastati Atorvastati No Atorvastat n Calcium n Calcium in Calcium 20 MG 20 MG 20 MG Spironolact Spironolact No 2{table QD Spironolac one 100 MG one 100 MG ts} tone 100 MG amLODIPine amLODIPine No 1{table QD amLODIPine Besylate 5 Besylate 5 t} Besylate 5 MG MG MG Atorvastati Atorvastati No 1{table QD Atorvastat n Calcium n Calcium t} in Calcium 40 MG 40 MG 40 MG Lisinopril Lisinopril No 1{table QD Lisinopril 40 MG 40 MG t} 40 MG Lasix 40 MG Lasix 40 MG No Lasix 40 MG Lactulose Lactulose No 15{ml} TID Lactulose 10 GM/15ML 10 GM/15ML 10 GM/15ML Carvedilol Carvedilol No 1{table BID Carvedilol 6.25 MG 6.25 MG t_with_ 6.25 MG food} Clopidogrel Clopidogrel No Clopidogre Bisulfate Bisulfate l 75 MG 75 MG Bisulfate 75 MG Lasix 40 MG Lasix 40 MG No 2{table QD Lasix 40 ts} MG Acetaminoph Acetaminoph No 2{table QID Acetaminop en 325 MG en 325 MG ts} hen 325 MG Clopidogrel Clopidogrel No 1{table QD Clopidogre Bisulfate Bisulfate t} l 75 MG 75 MG Bisulfate 75 MG Lisinopril Lisinopril No Lisinopril 40 MG 40 MG 40 MG Furosemide Furosemide No 1{table QD Furosemide 40 MG 40 MG t} 40 MG Atorvastati Atorvastati No 1{table QD Atorvastat n Calcium n Calcium t} in Calcium 40 MG 40 MG 40 MG Acetaminoph Acetaminoph No 2{table QID Acetaminop en 325 MG en 325 MG ts} hen 325 MG Lisinopril Lisinopril No 1{table QD Lisinopril 40 MG 40 MG t} 40 MG Furosemide Furosemide No 1{table QD Furosemide 40 MG 40 MG t} 40 MG Lactulose Lactulose No 15{ml} TID Lactulose 10 GM/15ML 10 GM/15ML 10 GM/15ML amLODIPine amLODIPine No 1{table QD amLODIPine Besylate 5 Besylate 5 t} Besylate 5 MG MG MG Lasix 40 MG Lasix 40 MG No 1{table QD Lasix 40 t} MG Furosemide Furosemide No 1{table QD Furosemide 40 MG 40 MG t} 40 MG Clopidogrel Clopidogrel No 1{table QD Clopidogre Bisulfate Bisulfate t} l 75 MG 75 MG Bisulfate 75 MG amLODIPine amLODIPine No 1{table QD amLODIPine Besylate 5 Besylate 5 t} Besylate 5 MG MG MG Acetaminoph Acetaminoph No 2{table QID Acetaminop en 325 MG en 325 MG ts} hen 325 MG Spironolact Spironolact No 2{table QD Spironolac one 100 MG one 100 MG ts} tone 100 MG Lisinopril Lisinopril No 1{table QD Lisinopril 40 MG 40 MG t} 40 MG Atorvastati Atorvastati No QD Atorvastat n Calcium n Calcium in Calcium 20 MG 20 MG 20 MG Lasix 40 MG Lasix 40 MG No 1{table QD Lasix 40 t} MG Furosemide Furosemide No 1{table QD Furosemide 40 MG 40 MG t} 40 MG Clopidogrel Clopidogrel No 1{table QD Clopidogre Bisulfate Bisulfate t} l 75 MG 75 MG Bisulfate 75 MG amLODIPine amLODIPine No 1{table QD amLODIPine Besylate 5 Besylate 5 t} Besylate 5 MG MG MG Acetaminoph Acetaminoph No 2{table QID Acetaminop en 325 MG en 325 MG ts} hen 325 MG Spironolact Spironolact No 2{table QD Spironolac one 100 MG one 100 MG ts} tone 100 MG Lisinopril Lisinopril No 1{table QD Lisinopril 40 MG 40 MG t} 40 MG Atorvastati Atorvastati No QD Atorvastat n Calcium n Calcium in Calcium 20 MG 20 MG 20 MG Lasix 40 MG Lasix 40 MG No 1{table QD Lasix 40 t} MG Furosemide Furosemide No 1{table QD Furosemide 40 MG 40 MG t} 40 MG Clopidogrel Clopidogrel No 1{table QD Clopidogre Bisulfate Bisulfate t} l 75 MG 75 MG Bisulfate 75 MG amLODIPine amLODIPine No 1{table QD amLODIPine Besylate 5 Besylate 5 t} Besylate 5 MG MG MG Acetaminoph Acetaminoph No 2{table QID Acetaminop en 325 MG en 325 MG ts} hen 325 MG Spironolact Spironolact No 2{table QD Spironolac one 100 MG one 100 MG ts} tone 100 MG Lisinopril Lisinopril No 1{table QD Lisinopril 40 MG 40 MG t} 40 MG Atorvastati Atorvastati No QD Atorvastat n Calcium n Calcium in Calcium 20 MG 20 MG 20 MG Atorvastati Atorvastati No QD Atorvastat n Calcium n Calcium in Calcium 20 MG 20 MG 20 MG amLODIPine amLODIPine No 1{table QD amLODIPine Besylate 5 Besylate 5 t} Besylate 5 MG MG MG Lisinopril Lisinopril No 1{table QD Lisinopril 40 MG 40 MG t} 40 MG Furosemide Furosemide No 1{table QD Furosemide 40 MG 40 MG t} 40 MG Lasix 40 MG Lasix 40 MG No 1{table QD Lasix 40 t} MG Spironolact Spironolact No 2{table QD Spironolac one 100 MG one 100 MG ts} tone 100 MG Acetaminoph Acetaminoph No 2{table QID Acetaminop en 325 MG en 325 MG ts} hen 325 MG Clopidogrel Clopidogrel No 1{table QD Clopidogre Bisulfate Bisulfate t} l 75 MG 75 MG Bisulfate 75 MG Amlodipine Amlodipine No 1{table QD Amlodipine Besylate 5 Besylate 5 t} Besylate 5 MG MG MG Lasix 40 MG Lasix 40 MG No 1{table QD Lasix 40 t} MG Spironolact Spironolact No 1{table QD Spironolac one 100 MG one 100 MG t} tone 100 MG Clopidogrel Clopidogrel No Clopidogre Bisulfate Bisulfate l 75 MG 75 MG Bisulfate 75 MG Spironolact Spironolact No Spironolac one 100 MG one 100 MG tone 100 MG Atorvastati Atorvastati No Atorvastat n Calcium n Calcium in Calcium 20 MG 20 MG 20 MG Lisinopril Lisinopril No Lisinopril 40 MG 40 MG 40 MG Amlodipine Amlodipine No Amlodipine Besylate 5 Besylate 5 Besylate 5 MG MG MG Lasix 40 MG Lasix 40 MG No Lasix 40 MG Lactulose Lactulose 2021- No 15{ml} TID Lactulose 10 GM/15ML 10 GM/15ML 10-01 10 GM/15ML 00:00 :00 Lactulose Lactulose 2021- No 15{ml} TID Lactulose 10 GM/15ML 10 GM/15ML 10-01 10 GM/15ML 00:00 :00 Lactulose Lactulose 2021- No 15{ml} TID Lactulose 10 GM/15ML 10 GM/15ML 10-01 10 GM/15ML 00:00 :00 Spironolact Spironolact 2021- No 2{table QD Spironolac one 100 MG one 100 MG 08 ts} tone 100 00:00 MG :00 Spironolact Spironolact 2019- No Dianelys 1 tablet Common one one 10-04 [facility] 00:00 - [facility] :00 [facility] Immunizations Ordered Filled Date Status Comments Source Immunization Name Immunization Name [facility] (hep a/hep 2022-03-12 Completed [facility]) 00:00:[address] [facility] [place] [facility] (hep a/hep 2022-03-12 Completed [facility] b) 00:00:00 [facility] (hep a/hep 2022-03-12 Completed [facility] of b) 00:00:00 [facility] (hep a/hep 2022-03-12 Completed [facility] of b) 00:00:00 [facility] (hep a/hep 2022-03-12 Completed [facility] of b) 00:00:00 [facility] (hep a/hep 2022-03-12 Completed [facility] of b) 00:00:00 [facility] (hep a/hep 2022-03-12 Completed [facility] of b) 00:00:00 [facility] (hep a/hep 2022-03-12 Completed [facility] of b) 00:00:00 [facility] (hep a/hep 2022-03-12 Completed [facility] s[facility] of b) 00:00:00 [facility] (hep a/hep 2022-03-12 Completed [facility] s[facility] of b) 00:00:00 [facility] (hep a/hep 2022-03-12 Completed [facility] of b) 00:00:00 [facility] (hep a/hep 2022-03-12 Completed [facility] s[facility] of b) 00:00:00 [facility] (hep a/hep 2022-03-12 Completed [facility] s[facility] of b) 00:00:00 [facility] (hep a/hep 2022-03-12 Completed [facility] s[facility] of b) 00:00:00 [facility] (hep a/hep 2022-03-12 Completed [facility] s[facility] of b) 00:00:00 [facility] (hep a/hep 2022-03-12 Completed [facility] s[facility] of b) 00:00:00 [facility] (hep a/hep 2022-03-12 Completed [facility] of b) 00:00:00 [facility] (hep a/hep 2022-03-12 Completed [facility] s[facility] of b) 00:00:00 [facility] (hep a/hep 2022-03-12 Completed [facility] s[facility] of b) 00:00:00 [facility] (hep a/hep 2022-03-12 Completed [facility] s[facility] of b) 00:00:00 [facility] (hep a/hep 2022-03-12 Completed [facility] s[facility] of b) 00:00:00 [facility] (hep a/hep 2022-03-12 Completed [facility] s[facility] of b) 00:00:00 [facility] (hep a/hep 2022-03-12 Completed [facility] s[facility] of b) 00:00:00 [facility] (hep a/hep 2022-03-12 Completed [facility] s[facility] of b) 00:00:00 [facility] (hep a/hep 2022-03-12 Completed [facility] s[facility] of b) 00:00:00 [facility] (hep a/hep 2022-03-12 Completed Univer s[facility] of b) 00:00:00 [facility] (hep a/hep 2022-03-12 Completed [facility]iver s[facility] of b) 00:00:00 [facility] (hep a/hep 2022-03-12 Completed [facility] s[facility] of b) 00:00:00 [facility] (hep a/hep 2022-03-12 Completed [facility] s[facility] of b) 00:00:00 [facility] (hep a/hep 2022-03-12 Completed [facility]iver s[facility] of b) 00:00:00 [facility] (hep a/hep 2022-03-12 Completed [facility] s[facility] of b) 00:00:00 [facility] (hep a/hep 2022-03-12 Completed [facility] s[facility] of b) 00:00:00 [facility] (hep a/hep 2022-03-12 Completed [facility] s[facility] of b) 00:00:00 [facility] (hep a/hep 2022-03-12 Completed [facility]iver s[facility] of b) 00:00:00 [facility] (hep a/hep 2022-03-12 Completed [facility] of b) 00:00:00 [facility] (hep a/hep 2022-03-12 Completed [facility] s[facility] of b) 00:00:00 [facility] (hep a/hep 2022-03-12 Completed [facility] s[facility] of b) 00:00:00 [facility] (hep a/hep 2022-03-12 Completed [facility]iver s[facility] of b) 00:00:00 [facility] (hep a/hep 2022-03-12 Completed [facility] s[facility] of b) 00:00:00 [facility] (hep a/hep 2022-03-12 Completed [facility] s[facility] of b) 00:00:00 [facility] (hep a/hep 2022-03-12 Completed [facility] s[facility] of b) 00:00:00 [facility] (hep a/hep 2022-03-12 Completed [facility] s[facility] of b) 00:00:00 [facility] (hep a/hep 2022-03-12 Completed [facility]iver s[facility] of b) 00:00:00 [facility] (hep a/hep 2022-03-12 Completed [facility]iver sity of b) 00:00:00 [facility] (hep a/hep 2022-03-12 Completed [facility] s[facility] of b) 00:00:[address] [facility] [facility] (hep a/hep 2022-03-12 Completed Univer sity of b) 00:00:[address] [facility] [place] [facility] (hep a/hep 2022-03-12 Completed [facility] s[facility] of b) 00:00:[address] [facility] [place] [facility] (hep a/hep 2022-03-12 Completed [facility] s[facility] of b) 00:00:[address] [facility] [place] [facility] (hep a/hep 2022-03-12 Completed [facility] s[facility] of b) 00:00:[address] [facility] [place] [facility] (hep a/hep 2022-03-12 Completed [facility] s[facility] of b) 00:00:[address] [facility] [place] [facility] (hep a/hep 2022-03-12 Completed [facility] s[facility] of b) 00:00:[address] [facility] [place] [facility] (hep a/hep 2022-03-12 Completed [facility]iver s[facility] of b) 00:00:[address] [facility] [place] [facility] (hep a/hep 2022-03-12 Completed [facility] sity of b) 00:00:[address] [facility] [place] [facility] (hep a/hep 2022-03-12 Completed [facility] s[facility] of b) 00:00:[address] [facility] [place] [facility] (hep a/hep 2022-03-12 Completed [facility] of b) 00:00:[address] [facility] [place] [facility] (hep a/hep Unknown Completed [facility] of b) [facility] [place] [place] Vital Signs Vital Name Observation Time Observation Value Comments Source Systolic blood 2023-06-26 158 mm[Hg] [facility] of pressure 17:16:[address] [facility] [place] Diastolic blood 2023-06-26 86 mm[Hg] [facility] o f pressure 17:16:[address] [facility] Heart rate 2023-06-26 75 /min [facility] 17:16:[address] [facility] Body temperature 2023-06-26 36.67 Destiny [facility] 17:16:[address] [facility] Respiratory rate 2023-06-26 20 /min [facility] 17:16:[address] [facility] [place] Oxygen saturation 2023-06-26 99 /min [facility] in Arterial blood 17:16:00 [facility] by Pulse oximetry [place] Body height 2023-06-24 170.2 cm [facility] of 07:37:[address] [facility] Body weight 2023-06-24 86.2 kg [facility] of 07:37:[address] [facility] BMI 2023-06-24 29.76 kg/m2 [facility] of 07:37:[address] [facility] Systolic blood 2023-05-22 166 mm[Hg] [facility] of pressure 13:53:[address] [facility] Diastolic blood 2023-05-22 87 mm[Hg] University o f pressure 13:53:[address] [facility] Heart rate 2023-05-22 79 /min [facility] 13:53:[address] [facility] Body temperature 2023-05-22 36.83 Destiny [facility] 13:53:[address] [facility] Respiratory rate 2023-05-22 24 /min [facility] 13:53:[address] [facility] Body weight 2023-05-22 83.915 kg University of 13:53:[address] [facility] BMI 2023-05-22 28.98 kg/m2 [facility] of 13:53:[address] [facility] [place] Oxygen saturation 2023-05-22 95 /min [facility] of in Arterial blood 13:53:00 [facility] by Pulse oximetry Branch Systolic blood 2023-05-15 158 mm[Hg] [facility] of pressure 20:54:[address] [facility] Diastolic blood 2023-05-15 82 mm[Hg] University o f pressure 20:54:[address] [facility] [place] Heart rate 2023-05-15 83 /min [facility] of 20:54:[address] [facility] [place] Body temperature 2023-05-15 37 Destiny [facility] of 20:54:[address] [facility] [place] Respiratory rate 2023-05-15 18 /min [facility] 20:54:[address] [facility] [place] Oxygen saturation 2023-05-15 95 /min [facility] of in Arterial blood 20:54:00 [facility] by Pulse oximetry Branch Body height 2023-05-13 170.2 cm University of 20:25:[address] [facility] [place] Body weight 2023-05-13 83.462 kg University of 20:25:[address] [facility] [place] BMI 2023-05-13 28.82 kg/m2 [facility] of 20:25:[address] [facility] [place] Systolic blood 2023-05-10 164 mm[Hg] [facility] of pressure 13:27:[address] [facility] Diastolic blood 2023-05-10 74 mm[Hg] University o f pressure 13:27:[address] [facility] [place] Heart rate 2023-05-10 80 /min University of 13:16:[address] [facility] [place] Body temperature 2023-05-10 37 Destiny University of 13:16:[address] [facility] [place] Body height 2023-05-10 170.2 cm University of 13:16:[address] [facility] [place] Body weight 2023-05-10 82.555 kg University of 13:16:[address] [facility] [place] BMI 2023-05-10 28.51 kg/m2 University of 13:16:[address] [facility] [place] Oxygen saturation 2023-05-10 96 /min University of in Arterial blood 13:16:00 [facility] kelsey by Pulse oximetry Branch Systolic blood 2023-04-04 152 mm[Hg] University of pressure 00:00:[address] [facility] [place] Diastolic blood 2023-04-04 82 mm[Hg] University o f pressure 00:00:[address] [facility] [place] Heart rate 2023-04-04 82 /min University of 00:00:[address] [facility] [place] Body temperature 2023-04-04 36.72 Destiny University of 00:00:[address] [facility] [place] Respiratory rate 2023-04-04 16 /min University of 00:00:[address] [facility] [place] Oxygen saturation 2023-04-04 91 /min [place] of in Arterial blood 00:00:00 [facility] by Pulse oximetry Branch Body height 2023-03-22 170.2 cm University of 12:58:[address] [facility] [place] Body weight 2023-03-22 85.73 kg University of 12:58:[address] [facility] [place] BMI 2023-03-22 29.60 kg/m2 University of 12:58:[address] [facility] [place] Systolic blood 2023-03-12 178 mm[Hg] University of pressure 15:00:[address] [facility] [place] Diastolic blood 2023-03-12 80 mm[Hg] University o f pressure 15:00:[address] [facility] [place] Heart rate 2023-03-12 69 /min University of 15:00:[address] [facility] [place] Respiratory rate 2023-03-12 19 /min University of 14:58:[address] [facility] [place] Body height 2023-03-12 172.7 cm University of 14:58:[address] [facility] [place] Body weight 2023-03-12 83.008 kg University of 14:58:[address] [facility] [place] BMI 2023-03-12 27.83 kg/m2 University of 14:58:[address] [facility] [place] Oxygen saturation 2023-03-12 92 /min University of in Arterial blood 14:58:00 [facility]sey by Pulse oximetry Branch Systolic blood 2023-02-11 173 mm[Hg] University of pressure 20:21:00 [facility] Diastolic blood 2023-02-11 86 mm[Hg] University o f pressure 20:21:[address] [facility] [place] Heart rate 2023-02-11 79 /min University of 20:21:[address] [facility] [place] Body height 2023-02-11 172.7 cm University of 20:21:[address] [facility] [place] Body weight 2023-02-11 90.719 kg University of 20:21:[address] [facility] [place] BMI 2023-02-11 30.41 kg/m2 University of 20:21:[address] [facility] [place] Oxygen saturation 2023-02-11 96 /min University of in Arterial blood 20:21:00 [facility]sey by Pulse oximetry Branch Systolic blood 2023-01-02 177 mm[Hg] University of pressure 19:55:[address] [facility] [place] Diastolic blood 2023-01-02 79 mm[Hg] University o f pressure 19:55:[address] [facility] [place] Heart rate 2023-01-02 83 /min University of 19:54:[address] [facility] [place] Body height 2023-01-02 172.7 cm University of 19:54:[address] [facility] [place] Body weight 2023-01-02 82.645 kg University of 19:54:[address] [facility] [place] BMI 2023-01-02 27.70 kg/m2 University of 19:54:[address] [facility] [place] Oxygen saturation 2023-01-02 97 /min University of in Arterial blood 19:54:00 [facility]sey by Pulse oximetry Branch Systolic blood 2022-10-09 127 mm[Hg] University of pressure 21:37:00 [facility] Diastolic blood 2022-10-09 70 mm[Hg] University o f pressure 21:37:[address] [facility] [place] Heart rate 2022-10-09 71 /min University of 21:37:[address] [facility] [place] Body temperature 2022-10-09 37.06 Destiny University of 21:37:[address] [facility] [place] Respiratory rate 2022-10-09 19 /min University of 21:37:[address] [facility] [place] Oxygen saturation 2022-10-09 94 /min University of in Arterial blood 21:37:00 [facility] P[facility] Body height 2022-10-01 172.7 cm University of 05:38:[address] [facility] [place] Body weight 2022-10-01 63.504 kg University of 05:38:[address] [facility] [place] BMI 2022-10-01 21.29 kg/m2 University of 05:38:[address] [facility] [place] Systolic blood 2022-10-01 138 mm[Hg] University of pressure 10:45:00 [facility] Diastolic blood 2022-10-01 73 mm[Hg] University o f pressure 10:45:[address] [facility] [place] Heart rate 2022-10-01 75 /min University of 10:45:[address] [facility] [place] Respiratory rate 2022-10-01 14 /min University of 10:45:[address] [facility] [place] Oxygen saturation 2022-10-01 96 /min University of in Arterial blood 10:45:00 [facility] by Pulse oximetry Branch Body temperature 2022-10-01 36.61 Destiny University of 10:30:[address] [facility] [place] Body height 2022-10-01 172.7 cm University of 05:38:[address] [facility] [place] Body weight 2022-10-01 63.504 kg University of 05:38:[address] [facility] [place] BMI 2022-10-01 21.29 kg/m2 University of 05:38:[address] [facility] [place] Systolic blood 2022-09-27 162 mm[Hg] University of pressure 19:00:[address] [facility] [place] Diastolic blood 2022-09-27 83 mm[Hg] University o f pressure 19:00:[address] [facility] [place] Heart rate 2022-09-27 84 /min University of 19:00:[address] [facility] [place] Respiratory rate 2022-09-27 18 /min University of 19:00:[address] [facility] [place] Oxygen saturation 2022-09-27 95 /min University of in Arterial blood 19:00:00 [place] [facility] Pulse oxim[facility] Body temperature 2022-09-27 36.44 Destiny University of 18:50:[address] [facility] [place] Body height 2022-09-27 170.2 cm University of 18:49:[address] [facility] [place] Body weight 2022-09-27 89.812 kg University of 18:49:[address] [facility] [place] BMI 2022-09-27 31.01 kg/m2 University of 18:49:[address] [facility] [place] Systolic blood 2022-09-25 150 mm[Hg] University of pressure 22:38:[address] [facility] [place] Diastolic blood 2022-09-25 82 mm[Hg] University o f pressure 22:38:[address] [facility] [place] Heart rate 2022-09-25 82 /min University 22:38:[address] [facility] [place] Body temperature 2022-09-25 36.67 Destiny [facility] 22:38:[address] [facility] [place] Respiratory rate 2022-09-25 20 /min University 22:38:[address] [facility] [place] Oxygen saturation 2022-09-25 93 /min [facility] Arterial blood 22:38:00 [facility] by Pulse oximetry [place] Body height 2022-09-24 172.7 cm [facility] 18:30:[address] [facility] [place] Body weight 2022-09-24 89.812 kg [facility] 18:30:[address] [facility] [place] BMI 2022-09-24 30.11 kg/m2 University 18:30:[address] [facility] [place] height 2022-04-06 68 [in_i] [facility] - 14:00:00 [facility] weight 2022-04-06 203 [lb_av] [facility] - 14:00:00 [facility] temperature 2022-04-06 97.8 [degF] [facility] - 14:00:00 [facility] bmi 2022-04-06 30.86 kg/m2 [facility] - 14:00:00 [facility] oximetry 2022-04-06 98 % [facility] - 14:00:00 [facility] respiratory rate 2022-04-06 18 /min [facility] - 14:00:00 [facility] blood pressure 2022-04-06 139 mm[Hg] [facility] - systolic 14:00:00 [facility] blood pressure 2022-04-06 88 mm[Hg] [facility] - diastolic 14:00:00 [facility] height 2021-08-29 68 [in_i] [facility] - 13:20:00 [facility] weight 2021-08-29 203.0 [lb_av] [facility] - 13:20:00 [facility] temperature 2021-08-29 97.7 [degF] [facility] - 13:20:00 [facility] bmi 2021-08-29 30.86 kg/m2 [facility] - 13:20:00 [facility] oximetry 2021-08-29 97 % [facility] - 13:20:00 [facility] respiratory rate 2021-08-29 16 /min [facility] - 13:20:00 [facility] blood pressure 2021-08-29 141 mm[Hg] [facility] - systolic 13:20:00 [facility] blood pressure 2021-08-29 78 mm[Hg] [facility] - diastolic 13:20:00 [facility] height 2021-06-27 68 [in_i] [facility] - 13:00:00 [facility] weight 2021-06-27 203.0 [lb_av] [facility] - 13:00:00 [facility] temperature 2021-06-27 98.0 [degF] [facility] - 13:00:00 [facility] bmi 2021-06-27 30.86 kg/m2 [facility] - 13:00:00 [facility] oximetry 2021-06-27 98 % [facility] - 13:00:00 [facility] respiratory rate 2021-06-27 17 /min [facility] - 13:00:00 [facility] blood pressure 2021-06-27 135 mm[Hg] [facility] - systolic 13:00:00 [facility] blood pressure 2021-06-27 76 mm[Hg] [facility] - diastolic 13:00:00 [facility] height 2021-03-20 68 [in_i] [facility] - 11:00:00 [facility] weight 2021-03-20 203.0 [lb_av] [facility] - 11:00:00 [facility] temperature 2021-03-20 97.7 [degF] [facility] - 11:00:00 [facility] bmi 2021-03-20 30.86 kg/m2 [facility] - 11:00:00 [facility] oximetry 2021-03-20 97 % [facility] - 11:00:00 [facility] respiratory rate 2021-03-20 19 /min [facility] - 11:00:00 [facility] blood pressure 2021-03-20 148 mm[Hg] [facility] - systolic 11:00:00 [facility] blood pressure 2021-03-20 74 mm[Hg] [facility] - diastolic 11:00:00 [facility] Systolic blood 2023-06-26 167 mm[Hg] [facility] of pressure 12:53:[address] [facility] [place] Diastolic blood 2023-06-26 78 mm[Hg] University o f pressure 12:53:[address] [facility] [place] Heart rate 2023-06-26 70 /min University of 12:53:[address] [facility] [place] Body temperature 2023-06-26 36.67 Destiny University of 12:53:[address] [facility] [place] Respiratory rate 2023-06-26 24 /min University of 12:53:[address] [facility] [place] Oxygen saturation 2023-06-26 95 /min University of in Arterial blood 12:53:00 [facility] by Pulse oximetry Branch Body height 2023-06-24 170.2 cm University of 07:37:[address] [facility] [place] Body weight 2023-06-24 86.2 kg University of 07:37:[address] [facility] [place] BMI 2023-06-24 29.76 kg/m2 University of 07:37:[address] [facility] [place] Systolic blood 2023-05-15 158 mm[Hg] University of pressure 16:50:[address] [facility] [place] Diastolic blood 2023-05-15 78 mm[Hg] University o f pressure 16:50:[address] [facility] [place] Heart rate 2023-05-15 74 /min University of 16:50:[address] [facility] [place] Body temperature 2023-05-15 37.06 Destiny University of 16:50:[address] [facility] [place] Respiratory rate 2023-05-15 22 /min University of 16:50:[address] [facility] [place] Oxygen saturation 2023-05-15 92 /min [facility] in Arterial blood 16:50:00 [place] [facility] Body height 2023-05-13 170.2 cm University of 20:25:[address] [facility] [place] Body weight 2023-05-13 83.462 kg University of 20:25:[address] [facility] [place] BMI 2023-05-13 28.82 kg/m2 University of 20:25:[address] [facility] [place] Systolic blood 2023-03-24 143 mm[Hg] University of pressure 16:45:00 [facility] Diastolic blood 2023-03-24 76 mm[Hg] University o f pressure 16:45:[address] [facility] Heart rate 2023-03-24 81 /min University of 16:45:00 [facility] Body temperature 2023-03-24 36.67 Destiny University of 16:45:00 [facility] Respiratory rate 2023-03-24 18 /min University of 16:45:00 [facility] Oxygen saturation 2023-03-24 90 /min University of in Arterial blood 16:45:00 [facility] by Pulse oximetry Branch Body height 2023-03-22 170.2 cm University of 12:58:[address] [facility] [place] Body weight 2023-03-22 85.73 kg University of 12:58:[address] [facility] [place] BMI 2023-03-22 29.60 kg/m2 University of 12:58:[address] [facility] [place] Systolic blood 2022-10-09 127 mm[Hg] University of pressure 21:37:[address] [facility] [place] Diastolic blood 2022-10-09 70 mm[Hg] University o f pressure 21:37:[address] [facility] [place] Heart rate 2022-10-09 71 /min University of 21:37:[address] [facility] [place] Body temperature 2022-10-09 37.06 Destiny University of 21:37:[address] [facility] [place] Respiratory rate 2022-10-09 19 /min University of 21:37:[address] [facility] [place] Oxygen saturation 2022-10-09 94 /min University of in Arterial blood 21:37:00 [facility] by Pulse oximetry Branch Body height 2022-10-01 172.7 cm University of 05:38:[address] [facility] [place] Body weight 2022-10-01 63.504 kg University of 05:38:[address] [facility] [place] BMI 2022-10-01 21.29 kg/m2 University of 05:38:[address] [facility] [place] Systolic blood 2022-09-25 150 mm[Hg] University of pressure 22:38:00 [facility] Diastolic blood 2022-09-25 82 mm[Hg] University o f pressure 22:38:[address] [facility] [place] Heart rate 2022-09-25 82 /min University of 22:38:[address] [facility] [place] Body temperature 2022-09-25 36.67 Destiny University of 22:38:00 [facility] Respiratory rate 2022-09-25 20 /min University of 22:38:00 [facility] Oxygen saturation 2022-09-25 93 /min University of in Arterial blood 22:38:00 [facility] Pulse oximetry [facility] Body height 2022-09-24 172.7 cm University of 18:30:[address] [facility] [place] Body weight 2022-09-24 89.812 kg University of 18:30:[address] [facility] [place] BMI 2022-09-24 30.11 kg/m2 University of 18:30:00 [facility] Heart rate 2022-09-22 82 /min University of 17:49:00 [facility] Respiratory rate 2022-09-22 20 /min University of 17:49:[address] [facility] [place] Oxygen saturation 2022-09-22 93 /min University of in Arterial blood 17:49:00 [facility] by Pulse oximetry Branch Systolic blood 2022-09-22 152 mm[Hg] University of pressure 17:41:[address] [facility] [place] Diastolic blood 2022-09-22 79 mm[Hg] University o f pressure 17:41:[address] [facility] [place] Body temperature 2022-09-22 36.5 Destiny University of 17:41:[address] [facility] [place] Body height 2022-09-20 172.7 cm University of 22:02:[address] [facility] [place] Body weight 2022-09-20 89.359 kg University of 22:02:[address] [facility] [place] BMI 2022-09-20 29.95 kg/m2 University of 22:02:[address] [facility] [place] Systolic blood 2022-06-19 149 mm[Hg] University of pressure 20:34:00 [facility] Diastolic blood 2022-06-19 76 mm[Hg] University o f pressure 20:34:00 [facility] Heart rate 2022-06-19 79 /min University of 20:34:00 [facility] Body temperature 2022-06-19 37 Destiny University of 20:34:00 [facility] Respiratory rate 2022-06-19 16 /min University of 20:34:00 [facility] Oxygen saturation 2022-06-19 98 /min University of in Arterial blood 20:34:00 [facility] Pulse oximetry [facility] Body height 2022-06-17 172.7 cm University of 07:00:00 [facility] Body weight 2022-06-17 80 kg University of 07:00:[address] [facility] [place] BMI 2022-06-17 26.82 kg/m2 [facility] 07:00:[address] [facility] [place] BP Systolic 2018-07-21 150 mm[Hg] Location: RUE; [facility] 10:50:00 Position: Sitting BP Diastolic 2018-07-21 83 mm[Hg] Location: RUE; [facility] 10:50:00 Position: Sitting Height 2018-07-21 67 [in_us] [facility] 10:50:00 Weight 2018-07-21 184 [lb_av] [facility] 10:50:00 Body Mass Index 2018-07-21 28.82 kg/m2 [facility] Calculated 10:50:00 Heart Rate 2018-07-21 55 /min Location: R [facility] 10:50:00 Brachial Artery; Systolic (mm Hg) 2018-07-08 [facility] 22:21:00 Weight 2018-07-04 Candi Will n 23:42:00 BMI Calculated 2018-07-04 Candi Avery sylvia 23:42:00 Height 2018-07-04 177.8 cm Candi Will n 23:42:00 Heart Rate 2018-07-04 Candi Will n 21:05:00 Heart Rate 2018-07-04 Candi Will n 21:00:00 Heart Rate 2018-07-04 Candi Will n 18:35:00 Procedures Procedure Date / Time Performing Source Performed Clinician BASIC METABOLIC PANEL (NA, K, CL, 2023-06-26 [facility] [place] of CO2, GLUCOSE, BUN, CREATININE, CA) 10:45:00 [facility] MAGNESIUM 2023-06-26 [facility] 10:45:00 [facility] CBC WITH DIFF 2023-06-26 [facility] 10:45:00 [facility] MAGNESIUM 2023-06-26 [facility] 10:45:00 [facility] BASIC METABOLIC PANEL (NA, K, CL, 2023-06-26 [facility] of CO2, GLUCOSE, BUN, CREATININE, CA) 10:45:00 [facility] CBC WITH DIFF 2023-06-26 [facility] 10:45:00 [facility] URINALYSIS 2023-06-25 [facility] of 11:23:[address] [facility] [place] EXTRA TUBE URINE CULTURE 2023-06-25 Cecil Kirby [facility] of 11:23:00 [facility] URINALYSIS 2023-06-25 [facility] of 11:23:[address] [facility] [place] EXTRA TUBE URINE CULTURE 2023-06-25 Cecil Kirby [facility] of 11:23:00 [facility] CBC WITH DIFF 2023-06-25 [facility] 09:21:00 [facility] BASIC METABOLIC PANEL (NA, K, CL, 2023-06-25 [facility] [place] of CO2, GLUCOSE, BUN, CREATININE, CA) 09:21:00 [facility] MAGNESIUM 2023-06-25 [facility] 09:21:00 [facility] MAGNESIUM 2023-06-25 [facility] 09:21:00 [facility] BASIC METABOLIC PANEL (NA, K, CL, 2023-06-25 [facility] CO2, GLUCOSE, BUN, CREATININE, CA) 09:21:00 [facility] CBC WITH DIFF 2023-06-25 [facility] 09:21:00 [facility] XR CHEST 1 VW 2023-06-24 [facility] of 22:21:[address] [facility] [place] XR CHEST 1 VW 2023-06-24 [facility] of 22:21:[address] [facility] [place] BODY FLUID DIRECT COUNT 2023-06-24 [facility] 09:30:00 [facility] T.PROTEIN BODY FLUID 2023-06-24 [facility] y of 09:30:00 [facility] ALBUMIN BODY FLUID 2023-06-24 [facility] of 09:30:00 [facility] LDH TOTAL BODY FLUID 2023-06-24 [facility] y of 09:30:00 [facility] BODY FLUID (BACTEC BOTTLE) 2023-06-24 [facility] of 09:30:00 [facility] GRAM STAIN REPORT 2023-06-24 [facility] of 09:30:00 [facility] BODY FLUID CULTURE WORKUP 2023-06-24 [facility] sity of 09:30:00 [facility] ALBUMIN BODY FLUID 2023-06-24 [facility] of 09:30:00 [facility] T.PROTEIN BODY FLUID 2023-06-24 [facility] y of 09:30:00 [facility] BODY FLUID DIRECT COUNT 2023-06-24 [facility] sity of 09:30:00 [facility] BODY FLUID (BACTEC BOTTLE) 2023-06-24 [facility] 09:30:00 [facility] GRAM STAIN REPORT 2023-06-24 Cecil Kirby [place] of 09:30:00 [facility] LDH TOTAL BODY FLUID 2023-06-24 Alesha [facility] y of 09:30:00 [facility] BODY FLUID CULTURE WORKUP 2023-06-24 Cecil Kirby [facility] of 09:30:00 [facility] FIBRINOGEN 2023-06-24 [facility] 08[facility]28:00 [facility] FIBRINOGEN 2023-06-24 [facility]EL[facility]AST 2023-06-24 Keith Brown Uni versity of 04:12:[address] [facility] [place] ABDOMEN PELVIS W CONTRAST 2023-06-24 , Keith Uni versity of 04:12:[address] [facility] [place] XR CHEST 1 VW 2023-06-24 [facility] of 02:59:[address] [facility] [place] XR CHEST 1 VW 2023-06-24 [facility] of 02:59:[address] [facility] [place] CBC WITH DIFF 2023-06-24 [facility] of 02:40:00 [facility] COMP. METABOLIC PANEL (36954) 2023-06-24 Keith Brown iversity of 02:40:[address] [facility] [place] LIPASE 2023-06-24 [facility] of 02:40:[address] [facility] [place] AMMONIA, PLASMA 2023-06-24 [facility] of 02:40:00 [facility] PROTHROMBIN TIME / INR 2023-06-24 [facility] y of 02:40:[address] [facility] [place] LIPASE 2023-06-24 [facility] of 02:40:[address] [facility] [place] AMMONIA, PLASMA 2023-06-24 [facility] of 02:40:00 [facility] COMP. METABOLIC PANEL ([id number]) 2023-06-24 Keith Brown iversity of 02:40:00 [facility] CBC WITH DIFF 2023-06-24 [facility] of 02:40:[address] [facility] [place] PROTHROMBIN TIME / INR 2023-06-24 Singer [facility] of 02:40:[address] [facility] [place] HOSPITAL ADMISSION 2023-06-23 [facility] of 05:01:00 Unassigned, No [facility] HOSPITAL ADMISSION 2023-06-23 [facility] of 05:01:00 Unassigned, No [facility] CBC WITH DIFF 2023-05-15 [place], [facility] of 21:39:00 [facility] CBC WITH DIFF 2023-05-15 [place], [facility] of 21:39:00 [facility] TRANSFUSE PACKED RBC 2023-05-15 [place], [facility] of 17:20:00 [facility] TRANSFUSE PACKED RBC 2023-05-15 [place], [facility] of 17:20:00 [facility] PREPARE PACKED RBC 2023-05-15 [place], [facility] of 17:13:13 [facility] PREPARE PACKED RBC 2023-05-15 [place], [facility] of 17:13:13 [facility] PREPARE PACKED RBC 2023-05-15 [place], [facility] of 11:57:17 [facility] CBC WITH DIFF 2023-05-15 [place], [facility] of 09:25:00 [facility] COMP. METABOLIC PANEL ([id number]) 2023-05-15 Eben Raji Un iversity of 09:25:00 [facility] MAGNESIUM 2023-05-15 [place] [facility] of 09:25:00 [facility] PHOSPHORUS 2023-05-15 [place], [facility] of 09:25:00 [facility] PHOSPHORUS 2023-05-15 [place], [facility] of 09:25:00 [facility] MAGNESIUM 2023-05-15 [place], [facility] of 09:25:00 [facility] COMP. METABOLIC PANEL ([id number]) 2023-05-15 Eben Raji Al iversity of 09:25:00 [facility] CBC WITH DIFF 2023-05-15 [place], [facility] of 09:25:00 [facility] CBC WITH DIFF 2023-05-15 [place], [facility] of 01:15:00 [facility] CBC WITH DIFF 2023-05-15 [place], [facility] of 01:15:00 [facility] PREPARE PACKED RBC 2023-05-14 Andi, [facility] of 17:54:[address] [facility] [place] PREPARE PACKED RBC 2023-05-14 Andi, [facility] of 17:54:[address] [facility] [place] [place] CBC WITH DIFF 2023-05-14 [place], [facility] of 16:41:00 [facility] CBC WITH DIFF 2023-05-14 [place], [facility] of 16:41:00 [facility] DUPLEX VENOUS LEG RIGHT - BY 2023-05-14 Andi, [facility] Uni versity of VASCULAR LAB 15:59:[address] [facility] [place] DUPLEX VENOUS LEG RIGHT - BY 2023-05-14 Andi, [place] versity of VASCULAR LAB 15:59:[address] [facility] [place] [place] HB ABO GROUPING 2023-05-14 Andi, [facility] of 11:47:[address] [facility] [place] [place] HB ABO GROUPING 2023-05-14 Andi, [facility] of 11:47:[address] [facility] [place] LIPID PANEL ([id number])(TOTAL 2023-05-14 [facility] of CHOLESTEROL, TRIGLYCERIDES, HDL) 08:21:[address] [facility] [place] [place] CBC WITH DIFF 2023-05-14 [place] [facility] of 08:21:00 [facility] COMP. METABOLIC PANEL ([id number]) 2023-05-14 Raji Treadwell iversity of 08:21:00 [facility] MAGNESIUM 2023-05-14 [place] [facility] of 08:21:00 [facility] FERRITIN SERUM 2023-05-14 Eben [facility] of 08:21:00 [facility] MAGNESIUM 2023-05-14 [place] [facility] of 08:21:00 [facility] FERRITIN SERUM 2023-05-14 [place] [facility] of 08:21:00 [facility] COMP. METABOLIC PANEL ([id number]) 2023-05-14 Raji Treadwell Un iversity of 08:21:00 [facility] LIPID PANEL ([id number])(TOTAL 2023-05-14 Judy Smith of CHOLESTEROL, TRIGLYCERIDES, HDL) 08:21:[address] [facility] [place] CBC WITH DIFF 2023-05-14 [facility] 08:21:00 [facility] HB ECG ROUTINE & RHYTHM STRIP 2023-05-13 Raji Treadwell Un iversity of 23:27:36 [facility] HB ECG ROUTINE & RHYTHM STRIP 2023-05-13 Raji Treadwell Un iversity of 23:27:36 [facility] XR CHEST 1 VW 2023-05-13 [facility] of 23:05:[address] [facility] [place] XR CHEST 1 VW 2023-05-13 [facility] of 23:05:[address] [facility] [place] [place] IR THORACENTESIS WITH IMAGING 2023-05-13 Raji Treadwell Un iversity of 23:03:59 [facility] CYTO ABDOMINAL FLUID 2023-05-13 Andi [facility] of 22:34:[address] [facility] [place] [place] IR PARACENTESIS/PERITONECENTESIS 2023-05-13 [facility] WITH IMAGING 22:31:00 [facility] CBC WITHOUT DIFF 2023-05-13 Andi [facility] of 19:11:[address] [facility] [place] [place] BASIC METABOLIC PANEL (NA, K, CL, 2023-05-13 Andi, [facility] of CO2, GLUCOSE, BUN, CREATININE, CA) 19:11:[address] [facility] [place] [place] BASIC METABOLIC PANEL (NA, K, CL, 2023-05-13 Andi, [facility] of CO2, GLUCOSE, BUN, CREATININE, CA) 19:11:[address] [facility] [place] [place] CBC WITHOUT DIFF 2023-05-13 Andi [facility] of 19:11:[address] [facility] [place] URINALYSIS 2023-05-13 Andi [facility] of 16:52:[address] [facility] [place] [place] URINALYSIS 2023-05-13 Andi, [facility] of 16:52:[address] [facility] [place] [place] URIC ACID 2023-05-13 Andi [facility] of 11:21:[address] [facility] [place] [place] URIC ACID 2023-05-13 Andi [facility] of 11:21:[address] [facility] [place] HB ECG ROUTINE & RHYTHM STRIP 2023-05-13 Andi [facility] ivers[facility] of 10:02:[address] [facility] [place] [place] HB ECG ROUTINE & RHYTHM STRIP 2023-05-13 Andi [facility] iversity of 10:02:[address] [facility] [place] [place] ALBUMIN BODY FLUID 2023-05-13 Andi [facility] of 09:30:[address] [facility] [place] [place] BODY FLUID MANUAL DIFF 2023-05-13 Andi [facility] of 09:30:[address] [facility] [place] [place] T.PROTEIN BODY FLUID 2023-05-13 Andi [facility] of 09:30:[address] [facility] [place] [place] BODY FLUID (BACTEC BOTTLE) 2023-05-13 [facility] 09:30:00 [facility] ALBUMIN BODY FLUID 2023-05-13 Andi [facility] of 09:30:[address] [facility] [place] [place] T.PROTEIN BODY FLUID 2023-05-13 Andi [facility] of 09:30:[address] [facility] [place] [place] BODY FLUID DIRECT COUNT 2023-05-13 Andi [facility] ty of 09:30:[address] [facility] [place] [place] BODY FLUID (BACTEC BOTTLE) 2023-05-13 Cecil [facility] 09:30:00 [facility] XR CHEST 1 VW 2023-05-13 Josué Caban [place] of 04:25:[address] [facility] [place] [place] XR ABDOMEN 1 VW 2023-05-13 Josué Caban [place] of 04:25:[address] [facility] [place] [place] XR ABDOMEN 1 VW 2023-05-13 Josué Caban [place] of 04:25:[address] [facility] [place] [place] XR CHEST 1 VW 2023-05-13 Josué Caban [place] of 04:25:[address] [facility] [place] [place] CBC WITH DIFF 2023-05-13 Josué Caban [place] of 03:50:[address] [facility] [place] [place] BASIC METABOLIC PANEL (NA, K, CL, 2023-05-13 Josué Caban [facility] CO2, GLUCOSE, BUN, CREATININE, CA) 03:50:[address] [facility] [place] HEPATIC FUNCTION PANEL ([id number]) 2023-05-13 Josué Caban niversity of (ALB,T.PRO,BILI 03:50:00 [facility] T,BU/BC,ALT,AST,ALK PHOS) Branch LIPASE 2023-05-13 Josué Caban [facility] 03:50:[address] [facility] [place] [place] N-TERMINAL PRO-BNP 2023-05-13 Josué Caban [facility] 03:50:[address] [facility] [place] [place] PROTHROMBIN TIME / INR 2023-05-13 Josué Caban [facility] of 03:50:[address] [facility] [place] ETHANOL 2023-05-13 Josué Caban [facility] 03:50:[address] [facility] [place] [place] IRON PANEL 2023-05-13 Eben [facility] 03:50:00 [facility] LIPASE 2023-05-13 Mee Josué [facility] 03:50:[address] [facility] [place] [place] HEPATIC FUNCTION PANEL ([id number]) 2023-05-13 Josué Caban niversity of (ALB,T.PRO,BILI 03:50:00 [facility] T,BU/BC,ALT,AST,ALK PHOS) [place] BASIC METABOLIC PANEL (NA, K, CL, 2023-05-13 Mee Josué [facility] CO2, GLUCOSE, BUN, CREATININE, CA) 03:50:[address] [facility] [place] [place] IRON PANEL 2023-05-13 Eben [facility] 03:50:00 [facility] ETHANOL 2023-05-13 Mee Josué [facility] 03:50:[address] [facility] [place] [place] CBC WITH DIFF 2023-05-13 Josué Caban [facility] 03:50:[address] [facility] [place] [place] PROTHROMBIN TIME / INR 2023-05-13 Josué Caban [facility] 03:50:[address] [facility] [place] [place] N-TERMINAL PRO-BNP 2023-05-13 Josué Caban [facility] 03:50:[address] [facility] [place] [place] EMERGENCY SERVICES AGREEMENTS AND 2023-05-12 [facility] of AUTHORIZATIONS 05:01:00 Unassigned, No [facility] HOSPITAL ADMISSION 2023-05-12 [facility] 05:01:00 Unassigned, No [facility] CBC WITH DIFF 2023-04-03 Eben [facility] 14:36:00 [facility] CBC WITH DIFF 2023-04-03 [facility] of 14:36:00 [facility] MAGNESIUM 2023-04-03 [facility] of 12:06:[address] [facility] [place] [place] BASIC METABOLIC PANEL (NA, K, CL, 2023-04-03 [facility] of CO2, GLUCOSE, BUN, CREATININE, CA) 12:06:[address] [facility] [place] [place] BASIC METABOLIC PANEL (NA, K, CL, 2023-04-03 [facility] of CO2, GLUCOSE, BUN, CREATININE, CA) 12:06:[address] [facility] [place] [place] MAGNESIUM 2023-04-03 [facility] of 12:06:[address] [facility] [place] [place] GLUCOSE BODY FLUID 2023-04-02 [facility] of 18:00:[address] [facility] [place] [place] T.PROTEIN BODY FLUID 2023-04-02 [facility] of 18:00:[address] [facility] [place] [place] BODY FLUID DIRECT COUNT 2023-04-02 [facility] ty of 18:00:[address] [facility] [place] [place] JOINT FLUID CRYSTALS SCREEN 2023-04-02 [facility] ersity of 18:00:[address] [facility] [place] [place] FUNGUS (ROUTINE) CULTURE 2023-04-02 Ashley Graham [facility] sity of 18:00:[address] [facility] [place] [place] BODY FLUID 2023-04-02 Santos [facility] of CULTURE(AEROBIC/ANAEROBIC) 18:00:[address] [facility] [place] [place] BODY FLUID MANUAL DIFF 2023-04-02 [facility] y of 18:00:[address] [facility] [place] [place] FUNGUS (ROUTINE) CULTURE 2023-04-02 Ashley Graham [facility] sity of 18:00:[address] [facility] [place] [place] JOINT FLUID CRYSTALS SCREEN 2023-04-02 [facility] ersity of 18:00:[address] [facility] [place] [place] T.PROTEIN BODY FLUID 2023-04-02 [facility] of 18:00:[address] [facility] [place] [place] GLUCOSE BODY FLUID 2023-04-02 [facility] of 18:00:[address] [facility] [place] AFB CULTURE 2023-04-02 [facility] of 18:00:[address] [facility] [place] [place] BODY FLUID 2023-04-02 Santos [facility] of CULTURE(AEROBIC/ANAEROBIC) 18:00:[address] [facility] [place] KNEE LEFT WO CONTRAST 2023-04-02 [facility] of 12:07:03 [facility] CT KNEE LEFT WO CONTRAST 2023-04-02 Eben, Raji [facility] ity of 12:07:03 [facility] URIC ACID 2023-04-02 Jamshid [facility] of 09:38:[address] [facility] [place] MAGNESIUM 2023-04-02 Eben [facility] of 09:38:00 [facility] C-REACTIVE PROTEIN 2023-04-02 Jamshid [facility] of 09:38:[address] [facility] [place] [place] BASIC METABOLIC PANEL (NA, K, CL, 2023-04-02 Pedro Luis Treadwell [facility] CO2, GLUCOSE, BUN, CREATININE, CA) 09:38:00 [facility] SEDIMENTATION RATE 2023-04-02 Jamshid [facility] of 09:38:[address] [facility] [place] [place] CBC WITH DIFF 2023-04-02 Eben [facility] of 09:38:00 [facility] PROTHROMBIN TIME / INR 2023-04-02 Eben, [facility] Universit y of 09:38:00 [facility] ACTIVATED PARTIAL THRMPLAS MÓNICA 2023-04-02 Eben, Raji U niversity of 09:38:00 [facility] ACTIVATED PARTIAL THRMPLAS MÓNICA 2023-04-02 Eben, Raji U niversity of 09:38:00 [facility] PROTHROMBIN TIME / INR 2023-04-02 Eben, [facility] y of 09:38:00 [facility] CBC WITH DIFF 2023-04-02 Eben [facility] of 09:38:00 [facility] BASIC METABOLIC PANEL (NA, K, CL, 2023-04-02 Pedro Luis Treadwell [facility] CO2, GLUCOSE, BUN, CREATININE, CA) 09:38:00 [facility] MAGNESIUM 2023-04-02 Eben [facility] of 09:38:00 [facility] C-REACTIVE PROTEIN 2023-04-02 Jamshid [facility] of 09:38:[address] [facility] [place] [place] SEDIMENTATION RATE 2023-04-02 Jamshid [facility] of 09:38:[address] [facility] [place] [place] URIC ACID 2023-04-02 Jamshid [facility] of 09:38:[address] [facility] [place] [place] DUPLEX VENOUS LEGS BILATERAL - BY 2023-04-01 Pedro Luis Treadwell [facility] VASCULAR LAB 18:54:04 [facility] DUPLEX VENOUS LEGS BILATERAL - BY 2023-04-01 Pedro Luis Treadwell [facility] VASCULAR LAB 18:54:04 [facility] US DUPLEX VENOUS ARM LEFT - BY 2023-04-01 Raji Treadwell [facility] of VASCULAR LAB 16:06:54 [facility] US DUPLEX VENOUS ARM LEFT - BY 2023-04-01 Raji Treadwell [facility] of VASCULAR LAB 16:06:54 [facility] PHOSPHORUS 2023-04-01 Eben [facility] of 10:10:00 [facility] MAGNESIUM 2023-04-01 Eben [facility] of 10:10:00 [facility] COMP. METABOLIC PANEL ([id number]) 2023-04-01 Raji Treadwell Un iversity of 10:10:00 [facility] CBC WITH DIFF 2023-04-01 Eben [facility] of 10:10:00 [facility] CBC WITH DIFF 2023-04-01 Eben [facility] of 10:10:00 [facility] COMP. METABOLIC PANEL ([id number]) 2023-04-01 Raji Treadwell iversity of 10:10:00 [facility] PHOSPHORUS 2023-04-01 Eben [facility] of 10:10:00 [facility] MAGNESIUM 2023-04-01 Eben [facility] of 10:10:00 [facility] XR KNEE 3 VW LEFT 2023-03-31 Eben [facility] of 21:15:00 [facility] XR KNEE 3 VW LEFT 2023-03-31 Eben [facility] of 21:15:00 [facility] PHOSPHORUS 2023-03-31 Eben [facility] of 08:46:00 [facility] MAGNESIUM 2023-03-31 Eben [facility] of 08:46:00 [facility] COMP. METABOLIC PANEL ([id number]) 2023-03-31 Raji Treadwell Un iversity of 08:46:00 [facility] CBC WITH DIFF 2023-03-31 [place], [facility] of 08:46:00 [facility] CBC WITH DIFF 2023-03-31 [place], [facility] of 08:46:00 [facility] COMP. METABOLIC PANEL ([id number]) 2023-03-31 Raji Treadwell iversity of 08:46:00 [facility] PHOSPHORUS 2023-03-31 Long, [facility] of 08:46:00 [facility] MAGNESIUM 2023-03-31 Eben, [facility] of 08:46:00 [facility] PHOSPHORUS 2023-03-30 Eben, [facility] of 09:01:00 [facility] MAGNESIUM 2023-03-30 Eben, [facility] of 09:01:00 [facility] COMP. METABOLIC PANEL ([id number]) 2023-03-30 Raji Treadwell iversity of 09:01:00 [facility] CBC WITH DIFF 2023-03-30 Eben, [facility] of 09:01:00 [facility] CBC WITH DIFF 2023-03-30 Eben, [facility] of 09:01:00 [facility] COMP. METABOLIC PANEL ([id number]) 2023-03-30 Raji Treadwell iversity of 09:01:00 [facility] PHOSPHORUS 2023-03-30 Eben [facility] of 09:01:00 [facility] MAGNESIUM 2023-03-30 Eben, [facility] of 09:01:00 [facility] CBC WITH DIFF 2023-03-29 Eben, [facility] of 18:38:00 [facility] CBC WITH DIFF 2023-03-29 Eben, [facility] of 18:38:00 [facility] CREATININE U 24 HR 2023-03-29 [facility] o f 17:35:[address] [facility] [place] SODIUM URINE 2023-03-29 [facility] of 17:35:[address] [facility] [place] [place] PROTEIN QUANT U/24H 2023-03-29 [facility], [facility] of 17:35:[address] [facility] [place] [place] PROTEIN QUANT U/24H 2023-03-29 [facility], [facility] of 17:35:[address] [facility] [place] [place] CREATININE U 24 HR 2023-03-29 [facility], [facility] o f 17:35:[address] [facility] [place] [place] SODIUM URINE 2023-03-29 [facility], [facility] of 17:35:[address] [facility] [place] XR CHEST 1 VW 2023-03-29 [place], [facility] of 15:32:00 [facility] XR CHEST 1 VW 2023-03-29 [place], [facility] of 15:32:00 [facility] PREPARE PACKED RBC 2023-03-29 [facility] of 14:06:[address] [facility] [place] [place] PREPARE PACKED RBC 2023-03-29 [facility] of 14:06:[address] [facility] [place] HB ABO GROUPING 2023-03-29 [facility] of 10:31:[address] [facility] [place] [place] HB ABO GROUPING 2023-03-29 [facility] of 10:31:[address] [facility] [place] [place] MAGNESIUM 2023-03-29 [facility], [facility] of 09:29:[address] [facility] [place] [place] BASIC METABOLIC PANEL (NA, K, CL, 2023-03-29 [facility], [facility] of CO2, GLUCOSE, BUN, CREATININE, CA) 09:29:[address] [facility] [place] [place] CBC WITH DIFF 2023-03-29 [facility] of 09:29:[address] [facility] [place] CBC WITH DIFF 2023-03-29 [facility], [facility] of 09:29:[address] [facility] [place] [place] BASIC METABOLIC PANEL (NA, K, CL, 2023-03-29 [facility], [facility] of CO2, GLUCOSE, BUN, CREATININE, CA) 09:29:[address] [facility] [place] [place] MAGNESIUM 2023-03-29 [facility] of 09:29:[address] [facility] [place] [place] TRANSTHORACIC ECHO (TTE) COMPLETE 2023-03-28 Pedro Luis Treadwell [place] of W/ CONTRAST 19:06:08 [facility] TRANSTHORACIC ECHO (TTE) COMPLETE 2023-03-28 Pedro Luis Treadwell [place] of W/ CONTRAST 19:06:08 [facility] MAGNESIUM 2023-03-28 [place], [facility] of 09:34:00 [facility] BASIC METABOLIC PANEL (NA, K, CL, 2023-03-28 Eben, Pedro Luis [facility] of CO2, GLUCOSE, BUN, CREATININE, CA) 09:34:00 [facility] CBC WITH DIFF 2023-03-28 Eben, [facility] of 09:34:00 [facility] CBC WITH DIFF 2023-03-28 Eben, [facility] of 09:34:00 [facility] BASIC METABOLIC PANEL (NA, K, CL, 2023-03-28 [place], Pedro Luis [facility] of CO2, GLUCOSE, BUN, CREATININE, CA) 09:34:00 [facility] MAGNESIUM 2023-03-28 [place], [facility] of 09:34:00 [facility] CBC WITH DIFF 2023-03-27 Eben, [facility] of 14:40:00 [facility] CBC WITH DIFF 2023-03-27 Eben, [facility] of 14:40:00 [facility] PHOSPHORUS 2023-03-27 [place], [facility] [place] of 10:34:00 [facility] MAGNESIUM 2023-03-27 Eben, [facility] [place] of 10:34:00 [facility] HEPATIC FUNCTION PANEL ([id number]) 2023-03-27 Eben, [facility] niversity of (ALB,T.PRO,BILI 10:34:00 [facility],BU/BC,ALT,AST,ALK PHOS) Branch BASIC METABOLIC PANEL (NA, K, CL, 2023-03-27 [place], [employer] of CO2, GLUCOSE, BUN, CREATININE, CA) 10:34:00 [facility] CBC WITH DIFF 2023-03-27 Eben, [facility] [place] of 10:34:00 [facility] PROTHROMBIN TIME / INR 2023-03-27 [place], [facility] y of 10:34:00 [facility] CBC WITH DIFF 2023-03-27 Eben, [facility] [place] of 10:34:00 [facility] BASIC METABOLIC PANEL (NA, K, CL, 2023-03-27 Pedro Luis [employer] of CO2, GLUCOSE, BUN, CREATININE, CA) 10:34:00 [facility] MAGNESIUM 2023-03-27 Eben, [facility] [place] of 10:34:00 [facility] PHOSPHORUS 2023-03-27 Eben, [facility] [place] of 10:34:00 [facility] HEPATIC FUNCTION PANEL ([id number]) 2023-03-27 Raji Treadwell niversity of (ALB,T.PRO,BILI 10:34:00 [facility],BU/BC,ALT,AST,ALK PHOS) [place] PROTHROMBIN TIME / INR 2023-03-27 Eben [facility] y of 10:34:00 [facility] CBC WITH DIFF 2023-03-26 Eben [facility] [place] of 19:04:00 [facility] CBC WITH DIFF 2023-03-26 Eben [facility] [place] of 19:04:00 [facility] PHOSPHORUS 2023-03-26 Eben [facility] [place] of 16:55:00 [facility] TROPONIN I 2023-03-26 Eben, [facility] [place] of 16:55:00 [facility] TROPONIN I 2023-03-26 Eben, [facility] [place] of 16:55:00 [facility] PHOSPHORUS 2023-03-26 Eben [facility] [place] of 16:55:00 [facility] HB ECG ROUTINE & RHYTHM STRIP 2023-03-26 Raji Treadwell Un iversity of 15:26:11 [facility] HB ECG ROUTINE & RHYTHM STRIP 2023-03-26 Eben [facility] Un iversity of 15:26:11 [facility] PHOSPHORUS 2023-03-26 Eben [facility] [place] of 08:19:00 [facility] MAGNESIUM 2023-03-26 Eben [facility] [place] of 08:19:00 [facility] BASIC METABOLIC PANEL (NA, K, CL, 2023-03-26 [employer] [place] [employer] of CO2, GLUCOSE, BUN, CREATININE, CA) 08:19:00 [facility] CBC WITH DIFF 2023-03-26 Eben [facility] [place] of 08:19:00 [facility] CBC WITH DIFF 2023-03-26 Eben, [facility] [place] of 08:19:00 [facility] BASIC METABOLIC PANEL (NA, K, CL, 2023-03-26 Eben, [facility] CO2, GLUCOSE, BUN, CREATININE, CA) 08:19:00 [facility] MAGNESIUM 2023-03-26 Eben, [facility] [place] of 08:19:00 [facility] PHOSPHORUS 2023-03-26 Eben, [facility] [place] of 08:19:00 [facility] ELECTROPHORESIS, URINE FOR PANEL 2023-03-25 Eben, [facility] [place] of 21:32:00 [facility] ELECTROPHORESIS, URINE FOR PANEL 2023-03-25 Eben, [facility] [place] of 21:32:00 [facility] ANTI-NUCLEAR ANTIBODY-PATHOLOGIST 2023-03-25 Eben, [facility] of INTERPRETATION 20:37:00 [facility] GBM AB, IGG (MIKAELA) 2023-03-25 Eben, [facility] [place] o f 20:37:00 [facility] ELECTROPHORESIS, SERUM 2023-03-25 [facility] 20:37:00 [facility] CRYOGLOBULIN QUALITATIVE 2023-03-25 Eben, [facility] ity of 20:37:00 [facility] RHEUMATOID FACTOR 2023-03-25 Eben, [facility] [place] of 20:37:00 [facility] C4 COMPLEMENT 2023-03-25 Eben, [facility] [place] of 20:37:00 [facility] IMMUNOGLOBULIN A 2023-03-25 Eben, [facility] [place] of 20:37:00 [facility] ANTI-NUCLEAR ANTIBODY SCREEN 2023-03-25 Eben, [facility] versity of 20:37:00 [facility] HEPATITIS B SURFACE ANTIBODY 2023-03-25 Eben, [facility] Uni versity of 20:37:00 [facility] HCV ANTIBODY 2023-03-25 Eben, [facility] [place] of 20:37:00 [facility] ANTI-NUCLEAR ANTIBODY TITER 2023-03-25 Eben, [facility] ersity of 20:37:00 [facility] HEPATITIS C VIRUS (HCV) BY 2023-03-25 [place], [facility] rsity of QUANTITATIVE NAAT 20:37:00 [facility] ANTI-CAIN(SM) 2023-03-25 [place], [facility] [place] of 20:37:00 [facility] ANTI-DOUBLE STRANDED DNA 2023-03-25, [facility] ity of 20:37:00 [facility] KAPPA-LAMBDA QUANT. FLC WITH RATIO 2023-03-25 [place], [facility] of 20:37:00 [facility] C4 COMPLEMENT 2023-03-25, [facility] [place] of 20:37:00 [facility] IMMUNOGLOBULIN G 2023-03-25, [facility] [place] of 20:37:00 [facility] GBM AB, IGG (MIKAELA) 2023-03-25 [place], [facility] [place] o f 20:37:00 [facility] ANTI-NUCLEAR ANTIBODY-PATHOLOGIST 2023-03-25 Eben, [facility] of INTERPRETATION 20:37:00 [facility] ANTI-NUCLEAR ANTIBODY SCREEN 2023-03-25 [place], [facility] versity of 20:37:00 [facility] RHEUMATOID FACTOR 2023-03-25 [place], [facility] [place] of 20:37:00 [facility] HCV ANTIBODY 2023-03-25 [place], [facility] [place] of 20:37:00 [facility] HEPATITIS C VIRUS (HCV) BY 2023-03-25 Eben [facility] rsity of QUANTITATIVE NAAT 20:37:00 [facility] ANTI-DOUBLE STRANDED DNA 2023-03-25, [facility] ity of 20:37:00 [facility] ANTI-CAIN(SM) 2023-03-25 [place], [facility] [place] of 20:37:00 [facility] ELECTROPHORESIS, SERUM 2023-03-25 [facility], [facility] of 20:37:00 [facility] HEPATITIS B SURFACE ANTIBODY 2023-03-25 Eben, [facility] versity of 20:37:00 [facility] KAPPA-LAMBDA QUANT. FLC WITH RATIO 2023-03-25 [place] [facility] of 20:37:00 [facility] CRYOGLOBULIN QUALITATIVE 2023-03-25 [place], [facility] ity of 20:37:00 [facility] ANTI-NUCLEAR ANTIBODY TITER 2023-03-25 [place], [facility] ersity of 20:37:00 [facility] PHOSPHORUS 2023-03-25 [place], [facility] [place] of 09:41:00 [facility] MAGNESIUM 2023-03-25 [place], [facility] [place] of 09:41:00 [facility] HEPATIC FUNCTION PANEL ([id number]) 2023-03-25 [place] Raji U niversity of (ALB,T.PRO,BILI 09:41:00 [facility],BU/BC,ALT,AST,ALK PHOS) [place] BASIC METABOLIC PANEL (NA, K, CL, 2023-03-25 [place], [facility] of CO2, GLUCOSE, BUN, CREATININE, CA) 09:41:00 [facility] CBC WITH DIFF 2023-03-25 [place] [facility] [place] of 09:41:00 [facility] HEPATITIS B SURFACE ANTIGEN 2023-03-25 [place], [facility] ersity of 09:41:00 [facility] HEPATITIS B CORE ANTIBODY IGM 2023-03-25 [place], [facility] iversity of 09:41:00 [facility] HIV 1/2 AG-AB WITH REFLEX 2023-03-25 [place] [facility] sity of 09:41:00 [facility] CBC WITH DIFF 2023-03-25 [place] [facility] [place] of 09:41:00 [facility] BASIC METABOLIC PANEL (NA, K, CL, 2023-03-25 [place], [employer] of CO2, GLUCOSE, BUN, CREATININE, CA) 09:41:00 [facility] MAGNESIUM 2023-03-25 [place], [facility] [place] of 09:41:00 [facility] PHOSPHORUS 2023-03-25 [place], [facility] [place] of 09:41:00 [facility] HEPATIC FUNCTION PANEL ([id number]) 2023-03-25 Raji Treadwell [facility] niversity of (ALB,T.PRO,BILI 09:41:00 [facility],BU/BC,ALT,AST,ALK PHOS) [place] HIV 1/2 AG-AB WITH REFLEX 2023-03-25 Eben Raji Ashoker sity of 09:41:00 [facility] HEPATITIS B CORE ANTIBODY IGM 2023-03-25 Eben, Raji Melendez iversity of 09:41:00 [facility] HEPATITIS B SURFACE ANTIGEN 2023-03-25 [place], [facility] ersity of 09:41:00 [facility] BASIC METABOLIC PANEL (NA, K, CL, 2023-03-24 [place], [facility] CO2, GLUCOSE, BUN, CREATININE, CA) 18:15:00 [facility] BASIC METABOLIC PANEL (NA, K, CL, 2023-03-24 [place], [facility] CO2, GLUCOSE, BUN, CREATININE, CA) 18:15:00 [facility] MICROALBUMIN URINE 2023-03-24 [facility] of 16:28:00 [facility] URINALYSIS 2023-03-24 [place], [facility] [place] of 16:28:00 [facility] CREATININE, URINE RANDOM 2023-03-24 [facility] ity of 16:28:00 [facility] UREA NITROGEN, URINE RANDOM 2023-03-24 [place], [facility] ersity of 16:28:00 [facility] POTASSIUM, URINE RANDOM 2023-03-24 [place], [facility] ty of 16:28:00 [facility] SODIUM, URINE RANDOM 2023-03-24 [facility] of 16:28:[address] [facility] [place] UREA NITROGEN, URINE RANDOM 2023-03-24 [place], [facility] ersity of 16:28:00 [facility] CREATININE, URINE RANDOM 2023-03-24 [place], [facility] ity of 16:28:00 [facility] POTASSIUM, URINE RANDOM 2023-03-24 [place], [facility] ty of 16:28:00 [facility] URINALYSIS 2023-03-24 Eben [facility] [place] of 16:28:00 [facility] SODIUM, URINE RANDOM 2023-03-24 Jamshid [facility] of 16:28:[address] [facility] [place] MICROALBUMIN URINE 2023-03-24 Eben [facility] [place] of 16:28:00 [facility] MRSA / MSSA SCREEN BY PCR, NARES 2023-03-24 Eben [facility] [place] of 15:18:00 [facility] MRSA / MSSA SCREEN BY PCR, [facility] 2023-03-24 Eben [facility] [place] of 15:18:00 [facility] CBC WITH DIFF 2023-03-24 Eben [facility] [place] of 10:43:00 [facility] BASIC METABOLIC PANEL (NA, K, CL, 2023-03-24 [place] [employer] of CO2, GLUCOSE, BUN, CREATININE, CA) 10:43:00 [facility] MAGNESIUM 2023-03-24 Eben [facility] [place] of 10:43:00 [facility] HEPATIC FUNCTION PANEL ([id number]) 2023-03-24 Raji Treadwell U niversity of (ALB,T.PRO,BILI 10:43:00 [facility] T,BU/BC,ALT,AST,ALK PHOS) [place] VANCOMYCIN TROUGH 2023-03-24 Jamshid [facility] of 10:43:[address] [facility] [place] MAGNESIUM 2023-03-24 Eben [facility] [place] of 10:43:00 [facility] HEPATIC FUNCTION PANEL ([id number]) 2023-03-24 Raji Treadwell niversity of (ALB,T.PRO,BILI 10:43:00 [facility] T,BU/BC,ALT,AST,ALK PHOS) [place] BASIC METABOLIC PANEL (NA, K, CL, 2023-03-24 Jeffrey Treadwellr [employer] of CO2, GLUCOSE, BUN, CREATININE, CA) 10:43:00 [facility] VANCOMYCIN TROUGH 2023-03-24 Jamshid [facility] of 10:43:[address] [facility] [place] CBC WITH DIFF 2023-03-24 Eben [facility] [place] of 10:43:00 [facility] CBC WITH DIFF 2023-03-23 [facility] 09:53:00 [facility] BASIC METABOLIC PANEL (NA, K, CL, 2023-03-23 Jeffrey Treadwellr [employer] of CO2, GLUCOSE, BUN, CREATININE, CA) 09:53:00 [facility] MAGNESIUM 2023-03-23 Eben [facility] [place] of 09:53:00 [facility] HEPATIC FUNCTION PANEL ([id number]) 2023-03-23 Raji Treadwell U niversity of (ALB,T.PRO,BILI 09:53:00 [facility] T,BU/BC,ALT,AST,ALK PHOS) Branch MAGNESIUM 2023-03-23 Eben [facility] [place] of 09:53:00 [facility] HEPATIC FUNCTION PANEL ([id number]) 2023-03-23 Raji Treadwell U niversity of (ALB,T.PRO,BILI 09:53:00 [facility] T,BU/BC,ALT,AST,ALK PHOS) [place] BASIC METABOLIC PANEL (NA, K, CL, 2023-03-23 [place] [employer] of CO2, GLUCOSE, BUN, CREATININE, CA) 09:53:00 [facility] CBC WITH DIFF 2023-03-23 Eben [facility] [place] of 09:53:00 [facility] IR THORACENTESIS WITH IMAGING 2023-03-22 Hillary Breen Un iversity of 15:52:[address] [facility] [place] IR THORACENTESIS WITH IMAGING 2023-03-22 Hillary Breen Un iversity of 15:52:[address] [facility] [place] IR PARACENTESIS/PERITONECENTESIS 2023-03-22 Jamshid [facility] of WITH IMAGING 15:51:[address] [facility] [place] IR PARACENTESIS/PERITONECENTESIS 2023-03-22 Jamshid [facility] of WITH IMAGING 15:51:[address] [facility] [place] XR CHEST 1 VW [facility]23[facility]22 [facility] of 15:37:[address] [facility] [place] XR CHEST 1 VW 2023-03-22 [facility] of 15:37:[address] [facility] [place] BODY FLUID 2023-03-22 Mita [facility] of CULTURE(AEROBIC/ANAEROBIC) 15:06:[address] [facility] [place] BODY FLUID 2023-03-22 Kalina Fan [employer] of CULTURE(AEROBIC/ANAEROBIC) 15:06:[address] [facility] [place] ALBUMIN BODY FLUID 2023-03-22 [facility] of 14:28:[address] [facility] [place] BODY FLUID MANUAL DIFF 2023-03-22 [facility] y of 14:28:[address] [facility] [place] BODY FLUID 2023-03-22 K[facility] of CULTURE(AEROBIC/ANAEROBIC) 14:28:[address] [facility] [place] ALBUMIN BODY FLUID 2023-03-22 Driggs [facility] of 14:28:[address] [facility] [place] BODY FLUID DIRECT COUNT 2023-03-22 [facility] ty of 14:28:[address] [facility] [place] BODY FLUID 2023-03-22 Kasi [facility] of CULTURE(AEROBIC/ANAEROBIC) 14:28:[address] [facility] [place] CBC WITH DIFF 2023-03-22 [facility] of 10:59:[address] [facility] [place] BASIC METABOLIC PANEL (NA, K, CL, 2023-03-22 [facility] of CO2, GLUCOSE, BUN, CREATININE, CA) 10:59:[address] [facility] [place] MAGNESIUM 2023-03-22 [facility] of 10:59:[address] [facility] [place] MAGNESIUM 2023-03-22 [facility] of 10:59:[address] [facility] [place] BASIC METABOLIC PANEL (NA, K, CL, 2023-03-22 [facility] of CO2, GLUCOSE, BUN, CREATININE, CA) 10:59:[address] [facility] [place] CBC WITH DIFF 2023-03-22 [facility] of 10:59:[address] [facility] [place] XR CHEST 1 VW 2023-03-21 Jamshid [facility] of 16:25:[address] [facility] [place] XR CHEST 1 VW 2023-03-21 Jamshid [facility] of 16:25:[address] [facility] [place] CBC WITH DIFF 2023-03-21 Raji Treadwell of 09:51:00 [facility] BASIC METABOLIC PANEL (NA, K, CL, 2023-03-21 Pedro Luis Treadwell [employer] of CO2, GLUCOSE, BUN, CREATININE, CA) 09:51:00 [facility] MAGNESIUM 2023-03-21 Eben [facility] [place] of 09:51:00 [facility] HEPATIC FUNCTION PANEL ([id number]) 2023-03-21 Raji Treadwell niversity of (ALB,T.PRO,BILI 09:51:00 [facility] T,BU/BC,ALT,AST,ALK PHOS) [place] PROTHROMBIN TIME / INR 2023-03-21 [facility] 09:51[facility]00 [facility] MAGNESIUM 2023-03-21 Eben, [facility] [place] of 09:51:00 [facility] HEPATIC FUNCTION PANEL ([id number]) 2023-03-21 Raji Treadwell niversity of (ALB,T.PRO,BILI 09:51:00 [facility] T,BU/BC,ALT,AST,ALK PHOS) [place] BASIC METABOLIC PANEL (NA, K, CL, 2023-03-21 [facility] CO2, GLUCOSE, BUN, CREATININE, CA) 09:51:00 [facility] CBC WITH DIFF 2023-03-21 Eben [facility] [place] of 09:51:00 [facility] PROTHROMBIN TIME / INR 2023-03-21 Eben, [facility] of 09:51:00 [facility] CBC WITH DIFF 2023-03-20 Eben, [facility] [place] of 09:58:00 [facility] BASIC METABOLIC PANEL (NA, K, CL, 2023-03-20 Eben [facility] CO2, GLUCOSE, BUN, CREATININE, CA) 09:58:00 [facility] MAGNESIUM 2023-03-20 [facility] 09:58:00 [facility] HEPATIC FUNCTION PANEL ([id number]) 2023-03-20 Raji Treadwell niversity of (ALB,T.PRO,BILI 09:58:00 [facility] T,BU/BC,ALT,AST,ALK PHOS) [place] ALPHA FETOPROTEIN 2023-03-20 [facility] of 09:58:[address] [facility] [place] MAGNESIUM 2023-03-20 Eben [facility] [place] of 09:58:00 [facility] HEPATIC FUNCTION PANEL ([id number]) 2023-03-20 Raji Treadwell U niversity of (ALB,T.PRO,BILI 09:58:00 [facility],BU/BC,ALT,AST,ALK PHOS) [place] BASIC METABOLIC PANEL (NA, K, CL, 2023-03-20 Eben, [employer] of CO2, GLUCOSE, BUN, CREATININE, CA) 09:58:00 [facility] ALPHA FETOPROTEIN 2023-03-20 Chitra [facility] of 09:58:[address] [facility] [place] CBC WITH DIFF 2023-03-20 Eben, [facility] [place] of 09:58:00 [facility] PROTEINASE 3 ANTIBODY PR3 2023-03-20 [place], [facility] sity of 09:58:00 [facility] PROTEINASE 3 ANTIBODY PR3 2023-03-20 Eben, [facility] sity of 09:58:00 [facility] CBC WITH DIFF 2023-03-19 Eben, [facility] [place] of 10:48:00 [facility] BASIC METABOLIC PANEL (NA, K, CL, 2023-03-19 [place], [employer] of CO2, GLUCOSE, BUN, CREATININE, CA) 10:48:00 [facility] MAGNESIUM 2023-03-19 Eben, [facility] [place] of 10:48:00 [facility] HEPATIC FUNCTION PANEL ([id number]) 2023-03-19 Raji Treadwell U niversity of (ALB,T.PRO,BILI 10:48:00 [facility],BU/BC,ALT,AST,ALK PHOS) Branch MAGNESIUM 2023-03-19 Eben [facility] [place] of 10:48:00 [facility] HEPATIC FUNCTION PANEL ([id number]) 2023-03-19 Raji Treadwell U niversity of (ALB,T.PRO,BILI 10:48:00 [facility],BU/BC,ALT,AST,ALK PHOS) [place] BASIC METABOLIC PANEL (NA, K, CL, 2023-03-19 Eben, Pedro Luis a [employer] of CO2, GLUCOSE, BUN, CREATININE, CA) 10:48:00 [facility] CBC WITH DIFF 2023-03-19 Eben [facility] [place] of 10:48:[address] [facility] [place] LACTATE DEHYDROGENASE 2023-03-18 Aurelio, [facility] y of 20:30:00 [facility] LACTATE DEHYDROGENASE 2023-03-18 Aurelio, [facility] y of 20:30:00 [facility] XR CHEST 1 VW 2023-03-18 [facility] of 18:10:00 [facility] XR CHEST 1 VW 2023-03-18 [facility], [facility] of 18:10:00 [facility] BODY FLUID MANUAL DIFF 2023-03-18 [facility], [facility] ty of 17:18:00 [facility] CYTO PLEURAL FLUID 2023-03-18 [facility], [facility] o f 17:18:00 [facility] GLUCOSE BODY FLUID 2023-03-18 [facility], [facility] o f 17:18:00 [facility] T.PROTEIN BODY FLUID 2023-03-18 [facility], [facility] of 17:18:00 [facility] LDH TOTAL BODY FLUID 2023-03-18 [facility], [facility] of 17:18:00 [facility] BODY FLUID (BACTEC BOTTLE) 2023-03-18 [facility] rsity of 17:18:[address] [facility] [place] GLUCOSE BODY FLUID 2023-03-18 [facility], [facility] o f 17:18:00 [facility] T.PROTEIN BODY FLUID 2023-03-18 [facility], [facility] of 17:18:00 [facility] BODY FLUID DIRECT COUNT 2023-03-18 [facility], [facility] ity of 17:18:00 [facility] BODY FLUID (BACTEC BOTTLE) 2023-03-18 [facility] rsity of 17:18:[address] [facility] [place] CYTO PLEURAL FLUID 2023-03-18 [facility], [facility] o f 17:18:00 [facility] LDH TOTAL BODY FLUID 2023-03-18 [facility], [facility] of 17:18:00 [facility] DUPLEX VENOUS LEGS BILATERAL - BY 2023-03-18 Keyshawn Knott [facility] VASCULAR LAB 16:01:[address] [facility] [place] DUPLEX VENOUS LEGS BILATERAL - BY 2023-03-18 Keyshawn Knott [facility] VASCULAR LAB 16:01:[address] [facility] [place] CBC WITH DIFF 2023-03-18 [facility] of 08:21:[address] [facility] [place] BASIC METABOLIC PANEL (NA, K, CL, 2023-03-18 [facility] of CO2, GLUCOSE, BUN, CREATININE, CA) 08:21:[address] [facility] [place] MAGNESIUM 2023-03-18 [facility] of 08:21:[address] [facility] [place] [place] PROTHROMBIN TIME / INR 2023-03-[facility] of 08:21:[address] [facility] [place] MAGNESIUM 2023-03-18 [facility] of 08:21:[address] [facility] [place] [place] BASIC METABOLIC PANEL (NA, K, CL, 2023-03-18 [facility] of CO2, GLUCOSE, BUN, CREATININE, CA) 08:21:[address] [facility] [place] [place] CBC WITH DIFF 2023-03-18 [facility] of 08:21:[address] [facility] [place] [place] PROTHROMBIN TIME / INR 2023-03-18 [facility] ty of 08:21:[address] [facility] [place] [place] US ABDOMEN LIMITED WITH DOPPLER 2023-03-18 [facility] of 07:48:[address] [facility] [place] [place] US ABDOMEN LIMITED WITH DOPPLER 2023-03-18 [facility] of 07:48:[address] [facility] [place] [place] ALBUMIN BODY FLUID 2023-03-18 [facility] o f 05:00:[address] [facility] [place] [place] BODY FLUID MANUAL DIFF 2023-03-18 MayitoLibby [facility] ty of 05:00:[address] [facility] [place] CYTO ABDOMINAL FLUID 2023-03-18 [facility] of 05:00:[address] [facility] [place] [place] T.PROTEIN BODY FLUID 2023-03-18 [facility] of 05:00:[address] [facility] [place] [place] BODY FLUID (BACTEC BOTTLE) 2023-03-18 Cecil Kirby rsity of 05:00:[address] [facility] [place] [place] ALBUMIN BODY FLUID 2023-03-18 [facility] o f 05:00:[address] [facility] [place] [place] T.PROTEIN BODY FLUID 2023-03-18 Casey Knott [facility] of 05:00:[address] [facility] [place] [place] BODY FLUID DIRECT COUNT 2023-03-18 MayitoLibby Casey [facility] ity of 05:00:[address] [facility] [place] BODY FLUID (BACTEC BOTTLE) 2023-03-18 Cecil Kirby [facility] rsity [facility] 05:00[facility] [facility] [place] [place] CYTO ABDOMINAL FLUID 2023-03-18 Casey Knott [place] of 05:00:[address] [facility] [place] HB ECG ROUTINE & RHYTHM STRIP 2023-03-17 Monica Encinas [facility] of 22:32:[address] [facility] [place] HB ECG ROUTINE & RHYTHM STRIP 2023-03-17 Monica Encinas niversity of 22:32:[address] [facility] [place] [place] XR CHEST 1 VW 2023-03-17 Monica Encinas [facility] of 21:35:[address] [facility] [place] [place] XR CHEST 1 VW 2023-03-17 Monica Encinas [facility] of 21:35:[address] [facility] [place] [place] CBC WITH DIFF 2023-03-17 Monica Encinas [facility] of 21:04:00 [facility] COMP. METABOLIC PANEL ([id number]) 2023-03-17 Monica Encinas niversity of 21:04:[address] [facility] [place] [place] PROTHROMBIN TIME / INR 2023-03-[address] [facility] ty of 21:04:[address] [facility] [place] [place] ACTIVATED PARTIAL THRMPLAS MÓNICA 2023-03-17 Monica Encinas [place] of 21:04:[address] [facility] [place] [place] TROPONIN I 2023-03-17 Monica Encinas [place] of 21:04:[address] [facility] [place] [place] N-TERMINAL PRO-BNP 2023-03-17 Huang Monica [facility] o f 21:04:[address] [facility] [place] [place] TROPONIN I 2023-03-17 Huang [facility] of 21:04:[address] [facility] [place] [place] COMP. METABOLIC PANEL ([id number]) 2023-03-17 Monica Encinas niversity of 21:04:[address] [facility] [place] [place] CBC WITH DIFF 2023-03-17 Monica Encinas [place] of 21:04:[address] [facility] [place] [place] PROTHROMBIN TIME / INR 2023-03-17 Monica [facility] 21:04:[address] [facility] [place] [place] ACTIVATED PARTIAL THRMPLAS MÓNICA 2023-03-17 Monica Encinas of 21:04:[address] [facility] [place] [place] N-TERMINAL PRO-BNP 2023-03-17 Huang [facility] o f 21:04:[address] [facility] [place] [place] HOSPITAL ADMISSION 2023-03-17 [place] of 05:01:00 Unassigned, No [facility] EMERGENCY SERVICES AGREEMENTS AND 2023-03-17 [place] of AUTHORIZATIONS 05:01:00 Unassigned, No [facility] EKG (SCANNED DOCUMENTS) 2023-03-[address] [facility] ty of 05:01:00 Unassigned, No [facility] HOSPITAL ADMISSION 2023-03-17 [place] of 05:01:00 Unassigned, No [facility] INSURANCE CORRESPONDENCE 2023-02-14 [facility] ity of 05:01:00 Unassigned, No [facility] PATIENT FINANCIAL POLICY 2023-02-11 Doctor Un iversity of 20:10:01 Unassigned, No [facility] PATIENT FINANCIAL POLICY 2023-02-11 Doctor Un iversity of 20:10:01 Unassigned, No [facility] PROSTATIC SPECIFIC ANTIGEN SCREEN 2023-01-02 Winter Barrientos [facility] 20:57:[address] [facility] [place] THYROID STIMULATING HORMONE 2023-01-02 Winter Barrientos Uni versity of 20:57:[address] [facility] [place] HEPATIC FUNCTION PANEL ([id number]) 2023-01-02 Winter Barrientos [facility] (ALB,T.PRO,BILI 20:57:00 [facility],BU/BC,ALT,AST,ALK PHOS) [place] BASIC METABOLIC PANEL (NA, K, CL, 2023-01-02 Winter Barrientos [facility] CO2, GLUCOSE, BUN, CREATININE, CA) 20:57:[address] [facility] [place] [place] CBC WITH DIFF 2023-01-02 Winter Barrientos [facility] 20:57:[address] [facility] [place] [place] VITAMIN D, 25-[place] 2023-01-02 Winter Barrientos [facility] 20:57:[address] [facility] [place] [place] CBC WITH DIFF 2023-01-02 Winter Barrientos [facility] 20:57:[address] [facility] [place] [place] BASIC METABOLIC PANEL (NA, K, CL, 2023-01-02 Winter Barrientos [facility] CO2, GLUCOSE, BUN, CREATININE, CA) 20:57:[address] [facility] [place] HEPATIC FUNCTION PANEL ([id number]) 2023-01-02 Winter Barrientos [facility] (ALB,T.PRO,BILI 20:57:00 [facility] T,BU/BC,ALT,AST,ALK PHOS) [place] PROSTATIC SPECIFIC ANTIGEN SCREEN 2023-01-02 Winter Barrientos [facility] 20:57:[address] [facility] [place] [place] THYROID STIMULATING HORMONE 2023-01-02 Wniter Barrientos [facility] versity of 20:57:[address] [facility] [place] [place] VITAMIN D, 25-[place] 2023-01-02 Winter Barrientos [facility] 20:57:[address] [facility] [place] GLYCOSYLATED HEMOGLOBIN (A1C) 2023-01-02 Winter Barrientos [facility] of 20:57:[address] [facility] [place] [place] PHOSPHORUS 2022-10-09 [facility] 12:44:[address] [facility] [place] [place] MAGNESIUM 2022-10-09 [facility] 12:44[facility] [facility] [place] [place] HEPATIC FUNCTION PANEL ([id number]) 2022-10-09 [facility] of (ALB,T.PRO,BILI 12:44:00 [facility] T,BU/BC,ALT,AST,ALK PHOS) [place] BASIC METABOLIC PANEL (NA, K, CL, 2022-10-09 [facility][Note 2], [facility] of CO2, GLUCOSE, BUN, CREATININE, CA) 12:44:[address] [facility] [place] [place] CBC WITH DIFF 2022-10-09 [facility] 12:44:[address] [facility] [place] [place] BASIC METABOLIC PANEL (NA, K, CL, 2022-10-09 [facility][Note 2], [facility] of CO2, GLUCOSE, BUN, CREATININE, CA) 12:44:[address] [facility] [place] [place] CBC WITH DIFF 2022-10-09 [facility] 12:44:[address] [facility] [place] MAGNESIUM 2022-10-09 [facility] 12:44:[address] [facility] [place] [place] PHOSPHORUS 2022-10-09 [facility] 12:44:[address] [facility] [place] [place] HEPATIC FUNCTION PANEL ([id number]) 2022-10-09 [facility] of (ALB,T.PRO,BILI 12:44:00 [facility] T,BU/BC,ALT,AST,[facility] X[facility] CHEST 1 VW 2022-10-08 Watt, [facility] of 21:10:[address] [facility] [place] [place] XR CHEST 1 VW 2022-10-08 Watt, [facility] of 21:10:[address] [facility] [place] [place] GLUCOSE BODY FLUID 2022-10-08 [facility] of 20:41:[address] [facility] [place] [place] PH, BODY FLUID 2022-10-08 [facility] of 20:41:[address] [facility] [place] [place] T.PROTEIN BODY FLUID 2022-10-08 [facility] of 20:41:[address] [facility] [place] [place] BODY FLUID DIRECT COUNT 2022-10-08 [facility] ty of 20:41:[address] [facility] [place] [place] BODY FLUID 2022-10-08 [facility] of CULTURE(AEROBIC/ANAEROBIC) 20:41:[address] [facility] [place] [place] FUNGUS (ROUTINE) CULTURE 2022-10-08 [facility], [facility] [facility] [place] [place] LDH TOTAL BODY FLUID 2022-10-08 [facility] of 20:41:[address] [facility] [place] [place] BODY FLUID MANUAL DIFF 2022-10-08 [facility]:41[facility] [facility] [place] [place] BODY FLUID 2022-10-08 [facility] of CULTURE(AEROBIC/ANAEROBIC) 20:41:[address] [facility] [place] [place] CYTO PLEURAL FLUID 2022-10-08 [facility] of 20:41:[address] [facility] [place] [place] FUNGUS (ROUTINE) CULTURE 2022-10-08 Watt, [facility] ity of 20:41:[address] [facility] [place] [place] GLUCOSE BODY FLUID 2022-10-08 [facility] of 20:41:[address] [facility] [place] [place] LDH TOTAL BODY FLUID 2022-10-08 [facility] of 20:41:[address] [facility] [place] [place] PH, BODY FLUID 2022-10-08 [facility] of 20:41:[address] [facility] [place] [place] T.PROTEIN BODY FLUID 2022-10-08 [facility] of 20:41:[address] [facility] [place] [place] IR THORACENTESIS WITH IMAGING 2022-10-08 Amee [facility] of 20:31:[address] [facility] [place] [place] IR THORACENTESIS WITH IMAGING 2022-10-08 [facility] 20:31:[address] [facility] [place] [place] IR PARACENTESIS/PERITONECENTESIS 2022-10-08 Amee, [facility] of WITH IMAGING 19:43:[address] [facility] [place] [place] IR PARACENTESIS/PERITONECENTESIS 2022-10-08 Amee, [facility] of WITH IMAGING 19:43:[address] [facility] [place] [place] GLUCOSE BODY FLUID 2022-10-08 [facility] of 19:42:[address] [facility] [place] [place] ALBUMIN BODY FLUID 2022-10-08 Armando [facility] of 19:42:00 [facility] T.PROTEIN BODY FLUID 2022-10-08 [facility] of 19:42:[address] [facility] [place] [place] BODY FLUID DIRECT COUNT 2022-10-08 [facility] of 19:42:[address] [facility] [place] [place] BODY FLUID 2022-10-08 Armando [facility] of CULTURE(AEROBIC/ANAEROBIC) 19:42:00 [facility] AFB CULTURE 2022-10-08 [facility] of 19:42:[address] [facility] [place] CYTO ABDOMINAL FLUID 2022-10-08 Armando [facility] of 19:42:00 [facility] LDH TOTAL BODY FLUID 2022-10-08 [facility] y of 19:42:[address] [facility] [place] [place] GLUCOSE BODY FLUID 2022-10-08 [facility] of 19:42:[address] [facility] [place] [place] LDH TOTAL BODY FLUID 2022-10-08 [facility] y of 19:42:[address] [facility] [place] [place] BODY FLUID MANUAL DIFF 2022-10-08 [facility] ity of 19:42:[address] [facility] [place] [place] T.PROTEIN BODY FLUID 2022-10-08 [facility] y of 19:42:[address] [facility] [place] [place] BODY FLUID 2022-10-08 Armando Jayy [place] of CULTURE(AEROBIC/ANAEROBIC) 19:42:00 [facility] [employer] CULTURE 2022-10-08 [facility] of 19:42:[address] [facility] [place] [place] ALBUMIN BODY FLUID 2022-10-08 Armando [facility] of 19:42:00 [facility] CYTO ABDOMINAL FLUID 2022-10-08 [facility] 19:42:[address] [facility] [place] [place] PHOSPHORUS 2022-10-08 [facility] 12:01:[address] [facility] [place] [place] MAGNESIUM 2022-10-08 Amee, [facility] 12:01:[address] [facility] [place] [place] HEPATIC FUNCTION PANEL ([id number]) 2022-10-08 [facility] of (ALB,T.PRO,BILI 12:01:00 [facility] T,BU/BC,ALT,AST,ALK PHOS) Branch BASIC METABOLIC PANEL (NA, K, CL, 2022-10-08 [facility][Note 2], [facility] of CO2, GLUCOSE, BUN, CREATININE, CA) 12:01:[address] [facility] [place] [place] CBC WITH DIFF 2022-10-08 Amee, [facility] 12:01:[address] [facility] [place] [place] PROTHROMBIN TIME / INR 2022-10-08 [facility] of 12:01:[address] [facility] [place] [place] ACTIVATED PARTIAL THRMPLAS MÓNICA 2022-10-08 [facility][Note 2], [facility] 12:01:[address] [facility] [place] [place] FIBRINOGEN 2022-10-08 Amee, [facility] 12:01:[address] [facility] [place] [place] CBC WITH DIFF 2022-10-08 [facility][Note 2], [facility] 12:01:[address] [facility] [place] [place] FIBRINOGEN 2022-10-08 Amee, [facility] 12:01:[address] [facility] [place] [place] ACTIVATED PARTIAL THRMPLAS MÓNICA 2022-10-08 Amee, [facility] 12:01:[address] [facility] [place] [place] PROTHROMBIN TIME / INR 2022-10-08 Amee, [facility] ity of 12:01:[address] [facility] [place] [place] BASIC METABOLIC PANEL (NA, K, CL, 2022-10-08 [facility][Note 2], [facility] of CO2, GLUCOSE, BUN, CREATININE, CA) 12:01:[address] [facility] [place] [place] MAGNESIUM 2022-10-08 [facility] 12:01:[address] [facility] [place] [place] PHOSPHORUS 2022-10-08 [facility] 12:01:[address] [facility] [place] [place] HEPATIC FUNCTION PANEL ([id number]) 2022-10-08 [facility] of (ALB,T.PRO,BILI 12:01:00 [facility] T,BU/BC,ALT,AST,ALK PHOS) Branch XR CHEST 1 VW 2022-10-07 [facility] of 17:16:[address] [facility] [place] [place] XR CHEST 1 2022-10-07 [facility] of 17:16:[address] [facility] [place] [place] PHOSPHORUS 2022-10-07 [facility] of 10:51:[address] [facility] [place] [place] MAGNESIUM 2022-10-07 [facility] 10:51:[address] [facility] [place] [place] HEPATIC FUNCTION PANEL ([id number]) 2022-10-07 [facility] (ALB,T.PRO,BILI 10:51:00 [facility] T,BU/BC,ALT,AST,ALK PHOS) [place] BASIC METABOLIC PANEL (NA, K, CL, 2022-10-07 [facility][Note 2], [facility] of CO2, GLUCOSE, BUN, CREATININE, CA) 10:51:[address] [facility] [place] [place] CBC WITH DIFF 2022-10-07 [facility] 10:51:[address] [facility] [place] [place] PROTHROMBIN TIME / INR 2022-10-07 [facility] of 10:51:[address] [facility] [place] [place] ACTIVATED PARTIAL THRMPLAS MÓNICA 2022-10-07 [facility] 10:51:[address] [facility] [place] [place] FIBRINOGEN 2022-10-07 [facility] 10:51:[address] [facility] [place] [place] BASIC METABOLIC PANEL (NA, K, CL, 2022-10-07 [facility][Note 2], [facility] of CO2, GLUCOSE, BUN, CREATININE, CA) 10:51:[address] [facility] [place] [place] CBC WITH DIFF 2022-10-07 [facility] of 10:51:[address] [facility] [place] [place] MAGNESIUM 2022-10-07 [facility] 10:51[facility] [facility] [place] [place] PHOSPHORUS 2022-10-07 [facility] 10:51:[address] [facility] [place] [place] HEPATIC FUNCTION PANEL ([id number]) 2022-10-07 [facility] (ALB,T.PRO,BILI 10:51:00 [facility] T,BU/BC,ALT,AST,ALK PHOS) Branch FIBRINOGEN 2022-10-07 [facility] 10:51:[address] [facility] [place] [place] ACTIVATED PARTIAL THRMPLAS MÓNICA 2022-10-07 Amee, [facility] 10:51:[address] [facility] [place] [place] PROTHROMBIN TIME / INR 2022-10-07 [facility] ity of 10:51:[address] [facility] [place] [place] XR CHEST 1 VW 2022-10-06 [facility] of 14:51:[address] [facility] [place] [place] XR CHEST 1 VW 2022-10-06 [facility] of 14:51:[address] [facility] [place] [place] PHOSPHORUS 2022-10-06 [facility] 11:10:[address] [facility] [place] [place] MAGNESIUM 2022-10-06 [facility] 11:10:[address] [facility] [place] [place] HEPATIC FUNCTION PANEL ([id number]) 2022-10-06 [facility] of (ALB,T.PRO,BILI 11:10:00 [facility] T,BU/BC,ALT,AST,ALK PHOS) [place] BASIC METABOLIC PANEL (NA, K, CL, 2022-10-06 [facility][Note 2], [facility] of CO2, GLUCOSE, BUN, CREATININE, CA) 11:10:[address] [facility] [place] [place] CBC WITH DIFF 2022-10-06 [facility] 11:10:[address] [facility] [place] [place] PROTHROMBIN TIME / INR 2022-10-06 [facility] 11:[facility] [facility] [place] [place] ACTIVATED PARTIAL THRMPLAS MÓNICA 2022-10-06 [facility] 11:10:[address] [facility] [place] [place] FIBRINOGEN 2022-10-06 [facility] 11:10:[address] [facility] [place] [place] BASIC METABOLIC PANEL (NA, K, CL, 2022-10-06 [facility][Note 2], [facility] of CO2, GLUCOSE, BUN, CREATININE, CA) 11:10:[address] [facility] [place] [place] CBC WITH DIFF 2022-10-06 [facility] 11:10:[address] [facility] [place] [place] MAGNESIUM 2022-10-06 [facility] 11:10:[address] [facility] [place] [place] PHOSPHORUS 2022-10-06 [facility] 11:10:[address] [facility] [place] [place] HEPATIC FUNCTION PANEL ([id number]) 2022-10-06 [facility] of (ALB,T.PRO,BILI 11:10:00 [facility] T,BU/BC,ALT,AST,ALK PHOS) Branch FIBRINOGEN 2022-10-06 [facility] 11:10:[address] [facility] [place] [place] ACTIVATED PARTIAL THRMPLAS MÓNICA 2022-10-06 [facility] of 11:10:[address] [facility] [place] [place] PROTHROMBIN TIME / INR 2022-10-06 [facility] ity of 11:10:[address] [facility] [place] [place] US ABDOMEN LIMITED 2022-10-05 Arm[facility] of 18:25:13 [facility] US ABDOMEN LIMITED 2022-10-05 Armando [facility] of 18:25:13 [facility] URINALYSIS 2022-10-05 [facility] of 13:57:[address] [facility] [place] [place] URINALYSIS 2022-10-05 [facility] [place][Note 2], [facility] of 13:57:[address] [facility] [place] [place] XR CHEST 1 VW 2022-10-05 [facility] of 12:31:[address] [facility] [place] [place] XR CHEST 1 VW 2022-10-05 [facility][Note 2] [facility] of 12:31:[address] [facility] [place] [place] BLOOD CULTURE SCREEN 2022-10-05 [facility] of 12:16:[address] [facility] [place] [place] BLOOD CULTURE SCREEN 2022-10-05 [facility] 12:16:[address] [facility] [place] [place] BLOOD CULTURE SCREEN 2022-10-05 [facility][Note 2], [facility] 12:10[facility] [facility] [place] [place] BLOOD CULTURE SCREEN 2022-10-05 [facility] 12:10:[address] [facility] [place] [place] PHOSPHORUS 2022-10-05 [facility] of 11:20:[address] [facility] [place] [place] MAGNESIUM 2022-10-05 [facility] of 11:20:[address] [facility] [place] [place] HEPATIC FUNCTION PANEL ([id number]) 2022-10-05 [facility] of (ALB,T.PRO,BILI 11:20:00 [facility],BU/BC,ALT,AST,ALK PHOS) [place] BASIC METABOLIC PANEL (NA, K, CL, 2022-10-05 [facility][Note 2] [facility] CO2, GLUCOSE, BUN, CREATININE, CA) 11:20:[address] [facility] [place] [place] CBC WITH DIFF 2022-10-05 [facility] 11:20:00 [facility] [facility] [place] PROTHROMBIN TIME / INR 2022-10-05 [facility] 11:20:[address] [facility] [place] ACTIVATED PARTIAL THRMPLAS MÓNICA 2022-10-05 Amee, [facility] of 11:20:[address] [facility] [place] FIBRINOGEN 2022-10-05 Amee, [facility] :20: [facility] [place] BASIC METABOLIC PANEL (NA, K, CL, 2022-10-05 [facility] [place][Note 2], Jun t University of CO2, GLUCOSE, BUN, CREATININE, CA) 11:20:[address] [facility] [place] CBC WITH DIFF 2022-10-05 Amee, June [facility] 11:20: [facility] [place] MAGNESIUM 2022-10-05 Amee, [facility] :20: [facility] [place] PHOSPHORUS 2022-10-05 [facility] [place][Note 2], [facility] :20: [facility] [place] HEPATIC FUNCTION PANEL ([id number]) 2022-10-05 [facility] of (ALB,T.PRO,BILI 11:20:00 [facility] T,BU/BC,ALT,AST,ALK PHOS) Branch FIBRINOGEN 2022-10-05 Amee, [facility] :20: [facility] [place] ACTIVATED PARTIAL THRMPLAS MÓNICA 2022-10-05 Amee, [facility] :20:[address] [facility] [place] PROTHROMBIN TIME / INR 2022-10-05 [facility] [place][Note 2], [facility] ity of 11:20:[address] [facility] [place] PHOSPHORUS 2022-10-04 Amee, [facility] 11:06:[address] [facility] [place] MAGNESIUM 2022-10-04 Amee, [facility] ::[address] [facility] [place] HEPATIC FUNCTION PANEL ([id number]) 2022-10-04 [facility] (ALB,T.PRO,BILI 11:06:00 [facility] T,BU/BC,ALT,AST,ALK PHOS) [place] BASIC METABOLIC PANEL (NA, K, CL, 2022-10-04 Amee, Jun t University of CO2, GLUCOSE, BUN, CREATININE, CA) 11:06:[address] [facility] [place] CBC WITH DIFF 2022-10-04 Amee, [facility] 11:06:[address] [facility] [place] PROTHROMBIN TIME / INR 2022-10-04 Amee, [facility] ity of 11:06:[address] [facility] [place] ACTIVATED PARTIAL THRMPLAS MÓNICA 2022-10-04 Amee, [facility] 11:06:[address] [facility] [place] FIBRINOGEN 2022-10-04 Amee, [facility] 11:06:[address] [facility] [place] BASIC METABOLIC PANEL (NA, K, CL, 2022-10-04 [facility] [place][Note 2], Jun [facility] of CO2, GLUCOSE, BUN, CREATININE, CA) 11:06:[address] [facility] [place] CBC WITH DIFF 2022-10-04 Amee, June [facility] 11:06:[address] [facility] [place] MAGNESIUM 2022-10-04 Amee, [facility] 11:06:[address] [facility] [place] PHOSPHORUS 2022-10-04 Amee, [facility] 11:06:[address] [facility] [place] HEPATIC FUNCTION PANEL ([id number]) 2022-10-04 [facility] of (ALB,T.PRO,BILI 11:06:00 [facility] T,BU/BC,ALT,AST,ALK PHOS) Branch FIBRINOGEN 2022-10-04 Amee, [facility] 11:06:[address] [facility] [place] ACTIVATED PARTIAL THRMPLAS MÓNICA 2022-10-04 Amee, [facility] 11:06:[address] [facility] [place] [place] PROTHROMBIN TIME / INR 2022-10-04 Amee, [facility] ity of 11:06:[address] [facility] [place] PHOSPHORUS 2022-10-03 Amee, [facility] 11:09:[address] [facility] [place] MAGNESIUM 2022-10-03 Amee, [facility] 11:09:[address] [facility] [place] HEPATIC FUNCTION PANEL ([id number]) 2022-10-03 [facility] of (ALB,T.PRO,BILI 11:09:00 [facility] T,BU/BC,ALT,AST,ALK PHOS) [place] BASIC METABOLIC PANEL (NA, K, CL, 2022-10-03 Amee, Jun [facility] University of CO2, GLUCOSE, BUN, CREATININE, CA) 11:09:[address] [facility] [place] CBC WITH DIFF 2022-10-03 Amee, June [facility] 11:09:[address] [facility] [place] PROTHROMBIN TIME / INR 2022-10-03 Amee, [facility] ity of 11:09:[address] [facility] [place] ACTIVATED PARTIAL THRMPLAS MÓNICA 2022-10-03 Amee, [facility] 11:09:[address] [facility] [place] FIBRINOGEN 2022-10-03 Amee, [facility] 11:09:[address] [facility] [place] BASIC METABOLIC PANEL (NA, K, CL, 2022-10-03 [facility] [place][Note 2], Jun [facility] of CO2, GLUCOSE, BUN, CREATININE, CA) 11:09:[address] [facility] [place] CBC WITH DIFF 2022-10-03 Amee, [facility] 11:09:[address] [facility] [place] MAGNESIUM 2022-10-03 Amee, [facility] 11:09:[address] [facility] [place] PHOSPHORUS 2022-10-03 Amee, [facility] 11:09:[address] [facility] [place] HEPATIC FUNCTION PANEL ([id number]) 2022-10-03 [facility] of (ALB,T.PRO,BILI 11:09:00 [facility] T,BU/BC,ALT,AST,ALK PHOS) Branch FIBRINOGEN 2022-10-03 Amee, [facility] 11:09:[address] [facility] [place] ACTIVATED PARTIAL THRMPLAS MÓNICA 2022-10-03 Amee, [facility] 11:09:[address] [facility] [place] [place] PROTHROMBIN TIME / INR 2022-10-03 Amee, [facility] ity of 11:09:[address] [facility] [place] PHOSPHORUS 2022-10-02 Amee, [facility] 11:17:[address] [facility] [place] MAGNESIUM 2022-10-02 Amee, [facility] ::[address] [facility] [place] HEPATIC FUNCTION PANEL ([id number]) 2022-10-02 [facility] of (ALB,T.PRO,BILI 11:17:00 [facility] T,BU/BC,ALT,AST,ALK PHOS) [place] BASIC METABOLIC PANEL (NA, K, CL, 2022-10-02 Amee, Jun [facility] University of CO2, GLUCOSE, BUN, CREATININE, CA) 11:17:[address] [facility] [place] CBC WITH DIFF 2022-10-02 Amee, [facility] 11:17:[address] [facility] [place] PROTHROMBIN TIME / INR 2022-10-02 [facility] of 11:17:[address] [facility] [place] [place] ACTIVATED PARTIAL THRMPLAS MÓNICA 2022-10-02 Amee, [facility] 11:17:[address] [facility] [place] FIBRINOGEN 2022-10-02 Amee, [facility] 11:17:[address] [facility] [place] PHOSPHORUS 2022-10-02 Amee, [facility] 11:17:[address] [facility] [place] MAGNESIUM 2022-10-02 [facility] 11:17:[address] [facility] [place] HEPATIC FUNCTION PANEL ([id number]) 2022-10-02 [facility] of (ALB,T.PRO,BILI 11:17:00 [place] [facility] T,BU/BC,ALT,AST,ALK PHOS) [place] BASIC METABOLIC PANEL (NA, K, CL, 2022-10-02 [facility] [place][Note 2], Jun [facility] of CO2, GLUCOSE, BUN, CREATININE, CA) 11:17:[address] [facility] [place] CBC WITH DIFF 2022-10-02 [facility] [place][Note 2], [facility] 11:17:[address] [facility] [place] PROTHROMBIN TIME / INR 2022-10-02 Amee, [facility] ity of 11:17:[address] [facility] [place] ACTIVATED PARTIAL THRMPLAS MÓNICA 2022-10-02 Amee, [facility] 11:17:[address] [facility] [place] FIBRINOGEN 2022-10-02 Amee, [facility] 11:17:[address] [facility] [place] BASIC METABOLIC PANEL (NA, K, CL, 2022-10-02 [facility] [place][Note 2], Jun [facility] of CO2, GLUCOSE, BUN, CREATININE, CA) 11:17:[address] [facility] [place] CBC WITH DIFF 2022-10-02 [facility] June [facility] 11:17:[address] [facility] [place] MAGNESIUM 2022-10-02 Amee, [facility] 11:17:[address] [facility] [place] PHOSPHORUS 2022-10-02 [facility] [place][Note 2], [facility] 11:17:[address] [facility] [place] HEPATIC FUNCTION PANEL ([id number]) 2022-10-02 [facility] of (ALB,T.PRO,BILI 11:17:00 [facility] T,BU/BC,ALT,AST,ALK PHOS) Branch FIBRINOGEN 2022-10-02 Amee, [facility] 11:17:[address] [facility] [place] ACTIVATED PARTIAL THRMPLAS MÓNICA 2022-10-02 Amee, [facility] 11:17:[address] [facility] [place] PROTHROMBIN TIME / INR 2022-10-02 Amee, [facility] ity of 11:17:[address] [facility] [place] XR KUB 2022-10-01 Amee, [facility] 18:15:[address] [facility] [place] XR KUB 2022-10-01 Amee, [facility] 18:15:[address] [facility] [place] XR KUB 2022-10-01 [facility] of 18:15:[address] [facility] [place] PHOSPHORUS 2022-10-01 Darryl Huff [place] of 10:56:00 [facility] MAGNESIUM 2022-10-01 HuffDarryl lozano [place] of 10:56:00 [facility] BASIC METABOLIC PANEL (NA, K, CL, 2022-10-01 HuffDarryl lozano [place] of CO2, GLUCOSE, BUN, CREATININE, CA) 10:56:00 [facility] CBC WITH DIFF 2022-10-01 Darryl Huff [place] of 10:56:00 [facility] PHOSPHORUS 2022-10-01 [facility] of 10:56:00 [facility] MAGNESIUM 2022-10-01 Bee Darryl [place] of 10:56:00 [facility] BASIC METABOLIC PANEL (NA, K, CL, 2022-10-01 HuffDarryl almaguer [place] of CO2, GLUCOSE, BUN, CREATININE, CA) 10:56:00 [facility] CBC WITH DIFF 2022-10-01 HuffDarryl lozano [place] of 10:56:00 [facility] CBC WITH DIFF 2022-10-01 Bee [facility] of 10:56:00 [facility] BASIC METABOLIC PANEL (NA, K, CL, 2022-10-01 Bee Darryl [place] of CO2, GLUCOSE, BUN, CREATININE, CA) 10:56:00 [facility] PHOSPHORUS 2022-10-01 HuffDarryl lozano [place] of 10:56:00 [facility] MAGNESIUM 2022-10-01 Bee [facility] of 10:56:00 [facility] SURGICAL PATHOLOGY EXAM 2022-10-01 Person, [employer] [facility] of 09:21:[address] [facility] [place] SURGICAL PATHOLOGY EXAM 2022-10-01 Person, [employer] of 09:21:[address] [facility] [place] ABG+COOX+NA+K+GLU+CA2+ 2022-10-01 Person, [employer] [facility] of 09:15:[address] [facility] [place] ABG+COOX+NA+K+GLU+CA2+ 2022-10-01 Person, [employer] of 09:15:[address] [facility] [place] ABG+COOX+NA+K+GLU+CA2+ 2022-10-01 Person, [facility] y of 09:15:[address] [facility] [place] ARTERIAL LINE 2022-10-01 Raf [facility] of 09:00:00 [facility] INTUBATION 2022-10-01 Raf [facility] of 08:35:[address] [facility] [place] UMBILICAL HERNIORRHAPHY 2022-10-01 Person, [facility] ty of 08:15:[address] [facility] [place] UMBILICAL HERNIORRHAPHY 2022-10-01 Person, [facility] ty of 08:15:[address] [facility] [place] UMBILICAL HERNIORRHAPHY 2022-10-01 Person, [facility] ty of 08:15:[address] [facility] [place] XR CHEST 1 2022-10-01 [facility], [facility] of 07:53:[address] [facility] [place] XR CHEST 1 2022-10-01 [facility], [facility] of 07:53:[address] [facility] [place] XR CHEST 1 2022-10-01 [facility], [facility] of 07:53:[address] [facility] [place] HB ABO GROUPING 2022-10-01 Darryl Huff [place] of 06:32:00 [facility] HB ABO GROUPING 2022-10-01 Darryl Huff [place] of 06:32:00 [facility] HB ABO GROUPING 2022-10-01 HuffDarryl lozano [place] of 06:32:00 [facility] PROTHROMBIN TIME / INR 2022-10-01 Darryl Huff [facility] y of 06:26:00 [facility] ACTIVATED PARTIAL THRMPLAS MÓNICA 2022-10-01 Darryl Huff [facility] of 06:26:00 [facility] FIBRINOGEN 2022-10-01 HuffDarryl lozano [place] of 06:26:00 [facility] PROTHROMBIN TIME / INR 2022-10-01 Darryl Huff [facility] y of 06:26:00 [facility] ACTIVATED PARTIAL THRMPLAS MÓNICA 2022-10-01 Darryl Huff [facility] of 06:26:00 [facility] FIBRINOGEN 2022-10-01 HuffDarryl lozano [place] of 06:26:00 [facility] PROTHROMBIN TIME / INR 2022-10-01 Darryl Huff y of 06:26:00 [facility] ACTIVATED PARTIAL THRMPLAS MÓNICA 2022-10-01 Darryl Huff [facility] [employer] of 06:26:00 [facility] FIBRINOGEN 2022-10-01 Darryl Huff [place] of 06:26:[address] [facility] CT ABDOMEN PELVIS W CONTRAST 2022-10-01 Monica Encinas Un [facility]versity of 00:19:30 [facility] CT ABDOMEN PELVIS W CONTRAST 2022-10-01 Monica Encinas Un [facility]ity of 00:19:[address] [facility] [place] ABDOMEN PELVIS W CONTRAST 2022-10-01 Monica Encinas Un iversity of 00:19:[address] [facility] [place] LIPASE 2022-10-01 Monica Encinas of 00:11:[address] [facility] [place] COMP. METABOLIC PANEL ([id number]) 2022-10-01 Monica Encinas niversity of 00:11:00 [facility] CBC WITH DIFF 2022-10-01 Monica Encinas of 00:11:[address] [facility] [place] LIPASE 2022-10-01 Monica Encinas [place] of 00:11:[address] [facility] [place] COMP. METABOLIC PANEL ([id number]) 2022-10-01 Monica Encinas niversity of 00:11:00 [facility] CBC WITH DIFF 2022-10-01 Monica Encinas of 00:11:00 [facility] CBC WITH DIFF 2022-10-01 Monica Encinas of 00:11:[address] [facility] [place] [place] COMP. METABOLIC PANEL ([id number]) 2022-10-01 Monica Encinas niversity of 00:11:[address] [facility] [place] LIPASE 2022-10-01 Monica Encinas of 00:11:[address] [facility] [place] HOSPITAL ADMISSION 2022-09-30 [facility] of 06:01:00 Unassigned, No [facility] HOSPITAL ADMISSION 2022-09-30 [facility] of 06:01:00 Unassigned, No [facility] HOSPITAL ADMISSION 2022-09-30 [facility] of 06:01:00 Unassigned, No [facility] AGREEMENTS AUTHORIZATIONS AND 2022-09-27 Doctor iversity of IRREVOCABLE ASSIGNMENTS (FORM 06:01:00 Unassigned, No [facility] EMERGENCY SERVICES AGREEMENTS AND 2022-09-27 Doctor [facility] of AUTHORIZATIONS 06:01:00 Unassigned, No [facility] EMERGENCY DEPARTMENT DOCUMENTS 2022-09-27 Doctor U niversity of 06:01:00 Unassigned, No [facility] MAGNESIUM 2022-09-25 Armando [facility] of 11:40:00 [facility] HEPATIC FUNCTION PANEL ([id number]) 2022-09-25 [facility] (ALB,T.PRO,BILI 11:40:00 [facility],BU/BC,ALT,AST,ALK PHOS) [place] BASIC METABOLIC PANEL (NA, K, CL, 2022-09-25 Armando, [facility] of CO2, GLUCOSE, BUN, CREATININE, CA) 11:40:00 [facility] CBC WITH DIFF 2022-09-25 Armando, [facility] of 11:40:00 [facility] PROTHROMBIN TIME / INR 2022-09-25 Armando, [facility] Universit y of 11:40:00 [facility] ACTIVATED PARTIAL THRMPLAS MÓNICA 2022-09-25 Armando [facility] U niversity of 11:40:00 [facility] FIBRINOGEN 2022-09-25 Armando [facility] of 11:40:00 [facility] BASIC METABOLIC PANEL (NA, K, CL, 2022-09-25 Armando, [facility] of CO2, GLUCOSE, BUN, CREATININE, CA) 11:40:00 [facility] CBC WITH DIFF 2022-09-25 Armando [facility] of 11:40:00 [facility] MAGNESIUM 2022-09-25 Armando [facility] of 11:40:00 [facility] ACTIVATED PARTIAL THRMPLAS MÓNICA 2022-09-25 Armando, [facility] U niversity of 11:40:00 [facility] PROTHROMBIN TIME / INR 2022-09-25 Armando, [facility] y of 11:40:00 [facility] FIBRINOGEN 2022-09-25 Armando, [facility] of 11:40:00 [facility] HEPATIC FUNCTION PANEL ([id number]) 2022-09-25 [facility] of (ALB,T.PRO,BILI 11:40:00 [facility] T,BU/BC,ALT,AST,ALK PHOS) Branch HEPATIC FUNCTION PANEL ([id number]) 2022-09-25 Jayy Roberts [facility] of (ALB,T.PRO,BILI 00:23:00 [facility] [place] [facility] T,BU/BC,ALT,AST,ALK PHOS) Branch HEPATIC FUNCTION PANEL ([id number]) 2022-09-25 Jayy Roberts [facility] of (ALB,T.PRO,BILI 00:23:00 [facility] [place] [facility] T,BU/BC,ALT,AST,ALK PHOS) Branch POTASSIUM, URINE RANDOM 2022-09-25 Mckinney, [facility] of 00:17:[address] [facility] [place] SODIUM, URINE RANDOM 2022-09-25 Armando [facility] of 00:17:00 [facility] SODIUM, URINE RANDOM 2022-09-25 Armando [facility] of 00:17:00 [facility] POTASSIUM, URINE RANDOM 2022-09-25 Mckinney, [facility] of 00:17:[address] [facility] [place] XR CHEST 1 VW 2022-09-24 [facility] of 21:45:[address] [facility] [place] [place] XR CHEST 1 VW 2022-09-24 Yuliana [facility] of 21:45:[address] [facility] [place] [place] IR THORACENTESIS WITH IMAGING 2022-09-24 Tarsha, U niversity of 21:17:53 [facility] IR THORACENTESIS WITH IMAGING 2022-09-24 Tarsha, Larissa niversity of 21:17:53 [facility] IR PARACENTESIS/PERITONECENTESIS 2022-09-24 Tarsha [facility] WITH IMAGING 20:33:00 [facility] IR PARACENTESIS/PERITONECENTESIS 2022-09-24 Tarsha [facility] WITH IMAGING 20:33:00 [facility] ALBUMIN BODY FLUID 2022-09-24 Armando [facility] of 20:32:00 [facility] T.PROTEIN BODY FLUID 2022-09-24 Armando [facility] of 20:32:00 [facility] BODY FLUID DIRECT COUNT 2022-09-24 Armando [facility] of 20:32:00 [facility] BODY FLUID 2022-09-24 Armando [facility] of CULTURE(AEROBIC/ANAEROBIC) 20:32:00 [facility] CYTO ABDOMINAL FLUID 2022-09-24 Armando [facility] of 20:32:00 [facility] ALBUMIN BODY FLUID 2022-09-24 Armando [facility] of 20:32:00 [facility] BODY FLUID MANUAL DIFF 2022-09-24 Armando [facility] y of 20:32:00 [facility] BODY FLUID 2022-09-24 Armando [facility] of CULTURE(AEROBIC/ANAEROBIC) 20:32:00 [facility] CYTO ABDOMINAL FLUID 2022-09-24 Armando [facility] of 20:32:00 [facility] T.PROTEIN BODY FLUID 2022-09-24 Armando [facility] of 20:32:00 [facility] US ABDOMEN LIMITED WITH DOPPLER 2022-09-24 [facility] of 10:34:[address] [facility] [place] [place] US ABDOMEN LIMITED WITH DOPPLER 2022-09-24 [facility] of 10:34:[address] [facility] [place] MAGNESIUM 2022-09-24 [facility] of 09:19:00 [facility] BASIC METABOLIC PANEL (NA, K, CL, 2022-09-24 [place] [facility] of CO2, GLUCOSE, BUN, CREATININE, CA) 09:19:00 [facility] CBC WITH DIFF 2022-09-24 [place] [facility] of 09:19:00 [facility] FIBRINOGEN 2022-09-24 Mckinney [facility] of 09:19:[address] [facility] [place] [place] CBC WITH DIFF 2022-09-24 [facility] of 09:19:00 [facility] BASIC METABOLIC PANEL (NA, K, CL, 2022-09-24 [place] [facility] of CO2, GLUCOSE, BUN, CREATININE, CA) 09:19:00 [facility] MAGNESIUM 2022-09-24 [facility] of 09:19:00 [facility] FIBRINOGEN 2022-09-24 Mckinney [facility] of 09:19:00 [facility] 2022-09-23 Tarsha [facility] 18:58:00 [facility] BASIC METABOLIC PANEL (NA, K, CL, 2022-09-23 Nicolas johnston, University of CO2, GLUCOSE, BUN, CREATININE, CA) 18:58:00 [facility] BASIC METABOLIC PANEL (NA, K, CL, 2022-09-23 Nicolas johnston, [facility] of CO2, GLUCOSE, BUN, CREATININE, CA) 18:58:00 [facility]22[facility]09-23 [facility] 18:58:00 [facility] XR CHEST 1 VW 2022-09-23 [place], [facility] of 15:21:00 [facility] XR CHEST 1 VW 2022-09-23 [place], [facility] of 15:21:00 [facility] MAGNESIUM 2022-09-23 [facility] of 11:10:00 [facility] COMP. METABOLIC PANEL ([id number]) 2022-09-23 Raji Treadwell iversity of 11:10:00 [facility] CBC WITH DIFF 2022-09-23 [facility] of 11:10:00 [facility] CBC WITH DIFF 2022-09-23 [place], [facility] of 11:10:00 [facility] MAGNESIUM 2022-09-23 [facility] of 11:10:00 [facility] COMP. METABOLIC PANEL ([id number]) 2022-09-23 Raji Treadwell iversity of 11:10:00 [facility]22 [facility] 22:33:00 [facility] BASIC METABOLIC PANEL (NA, K, CL, 2022-09-22 Nicolas johnston, [employer] of CO2, GLUCOSE, BUN, CREATININE, CA) 22:33:00 [facility] BASIC METABOLIC PANEL (NA, K, CL, 2022-09-22 Nicolas johnston, [employer] of CO2, GLUCOSE, BUN, CREATININE, CA) 22:33:00 [facility] 2022-[facility]-22 Tarsha [facility] 22:33:00 [facility] MAGNESIUM 2022-09-22 [facility] 11:21:00 [facility] BASIC METABOLIC PANEL (NA, K, CL, 2022-09-22 Pedro Luis Treadwell [employer] of CO2, GLUCOSE, BUN, CREATININE, CA) 11:21:00 [facility] MAGNESIUM 2022-09-22 Eben [facility] 11:21:00 [facility] BASIC METABOLIC PANEL (NA, K, CL, 2022-09-22 Pedro Luis Treadwell [employer] of CO2, GLUCOSE, BUN, CREATININE, CA) 11:21:00 [facility] MAGNESIUM 2022-09-21 Tarsha [facility] 11:50:00 [facility] PHOSPHORUS 2022-09-21 Tarsha [facility] 11:50:00 [facility] CBC WITH DIFF 2022-09-21 Tarsha [facility] 11:50:00 [facility] BASIC METABOLIC PANEL (NA, K, CL, 2022-09-21 Nicolas johnston, [employer] of CO2, GLUCOSE, BUN, CREATININE, CA) 11:50:00 [facility] PHOSPHORUS 2022-09-21 Tarsha, [facility] 11:50:00 [facility] MAGNESIUM 2022-09-21 Tarsha Durant of 11:50:00 [facility] BASIC METABOLIC PANEL (NA, K, CL, 2022-09-21 Nicolas johnston, [employer] of CO2, GLUCOSE, BUN, CREATININE, CA) 11:50:00 [facility] CBC WITH DIFF 2022-09-21 Tarsha Durant of 11:50:00 [facility] XR CHEST 1 VW 2022-09-21 Saji [facility] of 00:04:[address] [facility] [place] XR CHEST 1 VW 2022-09-21 [facility] of 00:04:[address] [facility] IR PARACENTESIS/PERITONECENTESIS 2022-09-20 [facility] of WITH IMAGING 23:49:[address] [facility] IR THORACENTESIS WITH IMAGING 2022-09-20 Larissa Willingham niversity of 23:47:35 [facility] IR THORACENTESIS WITH IMAGING 2022-09-20 Tarsha U niversity of 23:47:35 [facility] CYTO PLEURAL FLUID 2022-09-20 [facility] o f 23:21:00 [facility] BODY FLUID MANUAL DIFF 2022-09-20 [facility] of 23:21:00 [facility] BODY FLUID 2022-09-20 ArmandoImmanuelMichael E. [facility] of CULTURE(AEROBIC/ANAEROBIC) 23:21:00 [facility] BODY FLUID DIRECT COUNT 2022-09-20 Tarsha, [facility] ity of 23:21:00 [facility] BODY FLUID 2022-09-20 [facility] CULTURE(AEROBIC/ANAEROBIC) 23:21:00 [facility] CYTO PLEURAL FLUID 2022-09-20 [facility] f 23:21:00 [facility] CYTO PLEURAL FLUID 2022-09-20 [facility] o f 23:21:00 [facility] CBC WITH DIFF 2022-09-20 [facility] 11:24:[address] [facility] [place] BASIC METABOLIC PANEL (NA, K, CL, 2022-09-20 [facility], [facility] of CO2, GLUCOSE, BUN, CREATININE, CA) 11:24:[address] [facility] BASIC METABOLIC PANEL (NA, K, CL, 2022-09-20 [facility], [facility] of CO2, GLUCOSE, BUN, CREATININE, CA) 11:24:[address] [facility] CBC WITH DIFF 2022-09-20 [facility], [facility] of 11:24:[address] [facility] CYTO ABDOMINAL FLUID 2022-09-20 [facility], [facility] of 09:25:[address] [facility] ALBUMIN BODY FLUID 2022-09-20 [facility], [facility] of 09:25:[address] [facility] BODY FLUID MANUAL DIFF 2022-09-20 [facility], [facility] y of 09:25:[address] [facility] T.PROTEIN BODY FLUID 2022-09-20 [facility], [facility] of 09:25:[address] [facility] BODY FLUID (BACTEC BOTTLE) 2022-09-20 [facility] rs[facility] of 09:25:[address] [facility] BODY FLUID 2022-09-20 [facility], [facility] of CULTURE(AEROBIC/ANAEROBIC) 09:25:00 [facility] ALBUMIN BODY FLUID 2022-09-20 [facility], [facility] of 09:25:[address] [facility] T.PROTEIN BODY FLUID 2022-09-20 Mckinney, [facility] of 09:25:[address] [facility] BODY FLUID DIRECT COUNT 2022-09-20 [facility], [facility] ty of 09:25:[address] [facility] BODY FLUID (BACTEC BOTTLE) 2022-09-20 [facility], [facility] rsity of 09:25:00 [facility] BODY FLUID 2022-09-20 [facility], [facility] of CULTURE(AEROBIC/ANAEROBIC) 09:25:00 [facility] CYTO ABDOMINAL FLUID 2022-09-20 [facility], [facility] of 09:25:[address] [facility] ACUTE CARE ARTERIAL BLOOD GAS 2022-09-20 Mckinney, [facility] iversity of 08:49:[address] [facility] ACUTE CARE ARTERIAL BLOOD GAS 2022-09-20 [facility], [facility] iversity of 08:49:[address] [facility] BLOOD CULTURE SCREEN 2022-09-20 [facility], [facility] of 07:33:[address] [facility] BLOOD CULTURE SCREEN 2022-09-20 [facility], [facility] of 07:33:[address] [facility] BLOOD CULTURE SCREEN 2022-09-20 [facility], [facility] of 07:26:[address] [facility] BLOOD CULTURE SCREEN 2022-09-20 [facility], [facility] of 07:26:[address] [facility] PROTHROMBIN TIME / INR 2022-09-20 [facility], [facility] y of 05:31:[address] [facility] PROTHROMBIN TIME / INR 2022-09-20 [facility], [facility] y of 05:31:[address] [facility] HB ECG ROUTINE & RHYTHM STRIP 2022-09-20 [facility], [facility] iversity of 04:56:[address] [facility] HB ECG ROUTINE & RHYTHM STRIP 2022-09-20 [facility], [facility] iversity of 04:56:[address] [facility] CBC WITH DIFF 2022-09-20 Keith Brown of 02:12:[address] [facility] COMP. METABOLIC PANEL ([id number]) 2022-09-20 Keith Brown iversity of 02:12:[address] [facility] PROTHROMBIN TIME / INR 2022-09-20 [facility] y of 02:12:[address] [facility] FIBRINOGEN 2022-09-20 Mckinney, [facility] of 02:12:[address] [facility] TROPONIN I 2022-09-20 Mckinney, [facility] of 02:12:[address] [facility] TROPONIN I 2022-09-20 Mckinney, [facility] of 02:12:[address] [facility] COMP. METABOLIC PANEL ([id number]) 2022-09-20 Brown Keith Un iversity of 02:12:[address] [facility] CBC WITH DIFF 2022-09-20 [facility] of 02:12:[address] [facility] PROTHROMBIN TIME / INR 2022-09-20 [facility] y of 02:12:[address] [facility] FIBRINOGEN 2022-09-20 [facility], [facility] of 02:12:[address] [facility] XR CHEST 1 VW 2022-09-20 [facility] of 01:33:[address] [facility] XR CHEST 1 VW 2022-09-20 [facility] of 01:33:[address] [facility] HOSPITAL ADMISSION 2022-09-19 [facility] of 06:01:00 Unassigned, No [facility] HOSPITAL ADMISSION 2022-09-19 [facility] of 06:01:00 Unassigned, No [facility] DISCLOSURE AND CONSENT, MEDICAL 2022-09-19 [facility] of AND SURGICAL PROCEDURES 06:01:00 Unassigned, No [facility] BASIC METABOLIC PANEL (NA, K, CL, 2022-06-19 Stephan Roberts Durant of CO2, GLUCOSE, BUN, CREATININE, CA) 11:01:00 [facility] HEPATIC FUNCTION PANEL ([id number]) 2022-06-19 Nate Roberts Durant of (ALB,T.PRO,BILI 11:01:00 [facility] T,BU/BC,ALT,AST,ALK PHOS) Branch CBC WITH DIFF 2022-06-19 Nate Roberts Durant of 11:00:00 [facility] XR CHEST 1 VW 2022-06-18 Kalina Fan Durant of 17:40:[address] [facility] BODY FLUID 2022-06-18 [facility] of CULTURE(AEROBIC/ANAEROBIC) 17:08:[address] [facility] BODY FLUID MANUAL DIFF 2022-06-18 [facility] of 17:08:[address] [facility] ALBUMIN BODY FLUID 2022-06-18 [facility] of 17:08:[address] [facility] T.PROTEIN BODY FLUID 2022-06-18 [facility] of 17:08:[address] [facility] LDH TOTAL BODY FLUID 2022-06-18 [facility] of 17:08:[address] [facility] CYTO PLEURAL FLUID 2022-06-18 [facility] of 17:08:[address] [facility] IR THORACENTESIS WITH IMAGING 2022-06-18 [facility] iversity of 17:05:[address] [facility] IR PARACENTESIS/PERITONECENTESIS 2022-06-18 Nikkimsjose luis [facility] of WITH IMAGING 16:30:[address] [facility] ALBUMIN BODY FLUID 2022-06-18 [facility], [facility] of 15:57:[address] [facility] BODY FLUID MANUAL DIFF 2022-06-18 [facility], [facility] y of 15:57:[address] [facility] CYTO ABDOMINAL FLUID 2022-06-18 [facility], [facility] of 15:57:[address] [facility] T.PROTEIN BODY FLUID 2022-06-18 [facility], [facility] of 15:57:[address] [facility] BODY FLUID 2022-06-18 [facility], [facility] of CULTURE(AEROBIC/ANAEROBIC) 15:56:[address] [facility] HEPATIC FUNCTION PANEL ([id number]) 2022-06-18 Nate Roberts Durant of (ALB,T.PRO,BILI 10:41:00 [facility],BU/BC,ALT,AST,ALK PHOS) Branch BASIC METABOLIC PANEL (NA, K, CL, 2022-06-18 Armando [facility] elbert Durant of CO2, GLUCOSE, BUN, CREATININE, CA) 10:41:00 [facility] CBC WITH DIFF 2022-06-18 Nate Roberts Durant of 10:41:00 [facility] LACTATE DEHYDROGENASE 2022-06-18 [facility] of 10:41:[address] [facility] XR CHEST 1 VW 2022-06-[address] [facility] of 00:03:[address] [facility] DUPLEX VENOUS LEGS BILATERAL - BY 2022-06-17 Stephan Roberts [facility] VASCULAR LAB 13:31:29 [facility] CBC WITH DIFF 2022-06-17 Armando [facility] of 08:41:00 [facility] BASIC METABOLIC PANEL (NA, K, CL, 2022-06-17 Armando, Stephan boswell [employer] of CO2, GLUCOSE, BUN, CREATININE, CA) 08:41:00 [facility] MAGNESIUM 2022-06-17 Armando [facility] of 08:41:00 [facility] BASIC METABOLIC PANEL (NA, K, CL, 2022-06-16 Mckinney, Rosa e Durant of CO2, GLUCOSE, BUN, CREATININE, CA) 08:00:[address] [facility] CBC WITH DIFF 2022-06-16 Mckinney, [facility] of 08:00:[address] [facility] US ABDOMEN LIMITED 2022-06-15 [facility], [facility] of 21:47:[address] [facility] CBC WITH DIFF 2022-06-15 Mckinney, [facility] of 10:53:[address] [facility] BASIC METABOLIC PANEL (NA, K, CL, 2022-06-15 Mckinney, [facility] of CO2, GLUCOSE, BUN, CREATININE, CA) 10:53:[address] [facility] BASIC METABOLIC PANEL (NA, K, CL, 2022-06-14 Mckinney, [facility] of CO2, GLUCOSE, BUN, CREATININE, CA) 09:27:[address] [facility] CBC WITH DIFF 2022-06-14 [facility], [facility] of 09:27:[address] [facility] IR PARACENTESIS/PERITONECENTESIS 2022-06-13 Jamshid [facility] of WITH IMAGING 16:39:[address] [facility] ALBUMIN BODY FLUID 2022-06-13 [facility] of 16:31:[address] [facility] BODY FLUID MANUAL DIFF 2022-06-13 [facility] y of 16:31:[address] [facility] BODY FLUID 2022-06-13 [facility] of CULTURE(AEROBIC/ANAEROBIC) 16:31:[address] [facility] CYTO ABDOMINAL FLUID 2022-06-13 [facility] of 16:31:[address] [facility] T.PROTEIN BODY FLUID 2022-06-13 Jamshid [facility] of 16:31:[address] [facility] CBC WITH DIFF 2022-06-13 Mannie Camp Durant of 10:53:[address] [facility] BASIC METABOLIC PANEL (NA, K, CL, 2022-06-13 [facility] of CO2, GLUCOSE, BUN, CREATININE, CA) 10:53:[address] [facility] MAGNESIUM 2022-06-13 [facility] of 10:53:[address] [facility] PROTHROMBIN TIME / INR 2022-06-13 [facility] of 10:[facility] [facility] CBC WITHOUT DIFF 2022-06-12 Candy, [facility] of 16:41:[address] [facility] PREPARE PACKED RBC 2022-06-12 [facility] of 11:23:[address] [facility] CBC WITHOUT DIFF 2022-06-12 Feroz Gupta Dur[facility] of 09:14:[address] [facility] EXTERNAL PROVIDER RECORDS 2022-06-12 Doctor Rebel marie of 05:01:00 Unassigned, No [facility] CBC WITH DIFF 2022-06-11 Tiffany Mancini Durant of 21:23:[address] [facility] ESOPHAGOGASTRODUODENOSCOPY 2022-06-11 Mannie King [facility] versity of 15:08:[address] [facility] EGD (ENDO) 2022-06-11 Sarmad Guzman Durant of 14:46:[address] [facility] PREPARE PACKED RBC 2022-06-11 Anais Guy Durant of 14:24:[address] [facility] US ABDOMEN LIMITED WITH DOPPLER 2022-06-11 Tiffany Mancini Durant of 14:10:[address] [facility] CBC WITH DIFF 2022-06-11 Tiffayn Mancini Durant of 11:36:[address] [facility] FIBRINOGEN 2022-06-11 Mannie Camp Durant of 11:36:[address] [facility] TRANSFUSE PACKED RBC 2022-06-11 Feroz Gupta [place] of 07:25:[address] [facility] PREPARE PACKED RBC 2022-06-11 Feroz Gupta Dur[facility] of 07:17:[address] [facility] MRSA / MSSA SCREEN BY PCR, SAVANNA 2022-06-11 Lynn Gaona of 02:12:00 [facility] HB ABO GROUPING 2022-06-11 Tiffany Mancini of 02:12:[address] [facility] BASIC METABOLIC PANEL (NA, K, CL, 2022-06-11 [facility] of CO2, GLUCOSE, BUN, CREATININE, CA) 02:12:[address] [facility] CBC WITH DIFF 2022-06-11 Mancini, [facility] of 02:12:[address] [facility] PROTHROMBIN TIME / INR 2022-06-11 [facility] y of 02:12:[address] [facility] CBC WITH DIFF 2022-06-10 Love Lee of 22:56:[address] [facility] COVID-19 (ID NOW RAPID TESTING) 2022-06-10 Love Lee of 21:49:[address] [facility] LAB ONLY COVID INTERPRETATION 2022-06-10 Love Lee iversity of 21:49:[address] [facility] HB ECG ROUTINE & RHYTHM STRIP 2022-06-10 Love Lee iversity of 19:22:[address] [facility] CBC WITH DIFF 2022-06-10 Love Lee of 19:06:[address] [facility] ACTIVATED PARTIAL THRMPLAS MÓNICA 2022-06-10 Love Lee niversity of 19:06:[address] [facility] PROTHROMBIN TIME / INR 2022-06-10 Love Lee y of 19:06:[address] [facility] COMP. METABOLIC PANEL ([id number]) 2022-06-10 Love Lee iversity of 19:06:[address] [facility] LIPASE 2022-06-10 Love Lee of 19:06:[address] [facility] TROPONIN I 2022-06-10 Love Lee of 19:06:[address] [facility] N-TERMINAL PRO-BNP 2022-06-10 Love Lee of 19:06:[address] [facility] BLOOD CULTURE SCREEN 2022-06-10 Love Lee of 19:06:[address] [facility] LACTIC ACID WHOLE BLOOD 2022-06-10 Love Lee ty of 19:06:[address] [facility] IRON PANEL 2022-06-10 Feroz Gupta of 19:06:[address] [facility] HB ABO GROUPING 2022-06-10 Love Lee of 19:00:[address] [facility] EMERGENCY SERVICES AGREEMENTS AND 2022-06-10 [facility] of AUTHORIZATIONS 05:01:00 Unassigned, No [facility] Name Branch DNR 2022-05-28 [facility] of 05:01:00 Unassigned, No [facility] Name Maunie XR CHEST 1 VW 2022-05-15 Dari Ferro Durant of 22:46:[address] [facility] IR THORACENTESIS WITH IMAGING 2022-05-15 Feroz Gupta iversity of 21:40:[address] [facility] CBC WITHOUT DIFF 2022-05-15 [facility] of 08:44:[address] [facility] BASIC METABOLIC PANEL (NA, K, CL, 2022-05-15 [facility] of CO2, GLUCOSE, BUN, CREATININE, CA) 08:44:[address] [facility] MAGNESIUM 2022-05-15 Candy, [facility] of 08:44:[address] [facility] BASIC METABOLIC PANEL (NA, K, CL, 2022-05-14 [facility] of CO2, GLUCOSE, BUN, CREATININE, CA) 11:25:[address] [facility] CBC WITHOUT DIFF 2022-05-14 CandyRa [facility] of 11:25:[address] [facility] CBC WITHOUT DIFF 2022-05-13 [facility] of 10:30:[address] [facility] BASIC METABOLIC PANEL (NA, K, CL, 2022-05-13 [facility] of CO2, GLUCOSE, BUN, CREATININE, CA) 10:30:[address] [facility] XR CHEST 2 VW 2022-05-12 CandyRa [facility] of 17:53:[address] [facility] BASIC METABOLIC PANEL (NA, K, CL, 2022-05-12 [facility] of CO2, GLUCOSE, BUN, CREATININE, CA) 10:22:[address] [facility] MAGNESIUM 2022-05-12 [facility] of 10:22:[address] [facility] CBC WITH DIFF 2022-05-12 Candy, [facility] of 10:21:[address] [facility] TROPONIN I 2022-05-11 Khushbu Burns of 14:18:00 [facility] HB ECG ROUTINE & RHYTHM STRIP 2022-05-11 Khushbu Burns U niversity of 14:04:13 [facility] CBC WITH DIFF 2022-05-11 Gianni Herzog Durant of 09:25:[address] [facility] MAGNESIUM 2022-05-11 Mino [facility] of 09:25:[address] [facility] BASIC METABOLIC PANEL (NA, K, CL, 2022-05-11 Dao [employer] of CO2, GLUCOSE, BUN, CREATININE, CA) 09:25:00 [facility] CBC WITHOUT DIFF 2022-05-10 Tyrone Krishnan Durant of 22:54:[address] [facility] EGD (ENDO) 2022-05-10 Narcisa [facility] of 19:31:[address] [facility] ESOPHAGOGASTRODUODENOSCOPY 2022-05-10 Babar Bang Uni versity of 19:23:[address] [facility] CBC WITHOUT DIFF 2022-05-10 [facility] of 17:01:[address] [facility] IR PARACENTESIS/PERITONECENTESIS 2022-05-10 [facility] of WITH IMAGING 16:36:[address] [facility] CYTO ABDOMINAL FLUID 2022-05-10 [facility] of 16:24:[address] [facility] GLUCOSE BODY FLUID 2022-05-10 [facility] of 16:24:[address] [facility] T.PROTEIN BODY FLUID 2022-05-10 [facility] of 16:24:[address] [facility] AFB CULTURE 2022-05-10 [facility] of 16:24:[address] [facility] LDH TOTAL BODY FLUID 2022-05-10 [facility] of 16:24:[address] [facility] ALBUMIN BODY FLUID 2022-05-10 [facility] of 16:23:[address] [facility] BODY FLUID MANUAL DIFF 2022-05-10 Counts Include 234 B[facility] y of 16:23:[address] [facility] BODY FLUID 2022-05-10 [facility] of CULTURE(AEROBIC/ANAEROBIC) 16:23:[address] [facility] CBC WITHOUT DIFF 2022-05-10 Talon Zamorano [facility] of 09:40:[address] [facility] [place] TRANSFUSE PACKED RBC 2022-05-10 Madelin Watt [place] of 04:03:[address] [facility] [place] PREPARE PACKED RBC 2022-05-10 [facility] of 03:52:[address] [facility] [place] [place] CBC WITHOUT DIFF 2022-05-10 Talon Zamorano [place] of 03:14:[address] [facility] [place] TRANSFUSE PACKED RBC 2022-05-09 Liudmila, [facility] of 23:30:[address] [facility] [place] [place] PREPARE PACKED RBC 2022-05-09 [facility] of 23:15:[address] [facility] [place] BASIC METABOLIC PANEL (NA, K, CL, 2022-05-09 Liudmila [facility] CO2, GLUCOSE, BUN, CREATININE, CA) 21:31:[address] [facility] [place] [place] CBC WITHOUT DIFF 2022-05-09 [place] [facility] of 21:31:[address] [facility] [place] [place] HB INDIRECT ANTIGLOBULIN TEST 2022-05-09 Milly Wright Un iversity of 15:15:[address] [facility] [place] CBC WITHOUT DIFF 2022-05-09 [place] [facility] of 15:14:[address] [facility] [place] MRSA / MSSA SCREEN BY SAVANNA SAUCEDA 2022-05-09 [facility] of 13:58:[address] [facility] [place] [place] CBC WITHOUT DIFF 2022-05-09 [place] [facility] of 13:49:[address] [facility] [place] [place] BASIC METABOLIC PANEL (NA, K, CL, 2022-05-09 LiudmilaEsthela bull [facility] of CO2, GLUCOSE, BUN, CREATININE, CA) 13:47:[address] [facility] [place] [place] US ABDOMEN LIMITED WITH DOPPLER 2022-05-09 [facility] of 07:57:[address] [facility] [place] [place] BASIC METABOLIC PANEL (NA, K, CL, 2022-05-09 [facility] CO2, GLUCOSE, BUN, CREATININE, CA) 07:07:[address] [facility] [place] CBC WITH DIFF 2022-05-09 Kyle Milly [place] of 05:32:[address] [facility] [place] [place] PROTHROMBIN TIME / INR 2022-05-09 [facility] of 05:32:[address] [facility] [place] [place] FIBRINOGEN 2022-05-09 [facility] of 05:32:[address] [facility] [place] [place] COMP. METABOLIC PANEL ([id number]) 2022-05-09 Milly Wright Un iversity of 05:32:[address] [facility] [place] [place] BLOOD CULTURE SCREEN 2022-05-09 Milly Wright [facility] of 05:32:[address] [facility] [place] PREPARE PACKED RBC 2022-05-09 [place] of 03:35:41 Unassigned, No [facility] PROTHROMBIN TIME / INR 2022-05-09 Sienna Gallagher Universit y of 03:02:[address] [facility] [place] ACTIVATED PARTIAL THRMPLAS MÓNICA 2022-05-09 Sienna Gallagher U niversity of 03:02:[address] [facility] [place] [place] XR CHEST 1 VW 2022-05-09 Sienna Gallagher [facility] of 02:58:[address] [facility] [place] [place] HB ABO GROUPING 2022-05-09 Sienna Gallagher [facility] of 02:52:[address] [facility] [place] [place] BLOOD CULTURE SCREEN 2022-05-09 Sienna Gallagher [facility] of 02:29:[address] [facility] [place] [place] COVID-19 (ID NOW RAPID TESTING) 2022-05-09 Sienna Gallagher [facility] 02:26:[address] [facility] [place] [place] BLOOD CULTURE SCREEN 2022-05-09 Sienna Gallagher [facility] of 02:26:[address] [facility] [place] [place] AMMONIA, PLASMA 2022-05-09 Sienna Gallagher [facility] of 02:26:[address] [facility] [place] [place] LAB ONLY COVID INTERPRETATION 2022-05-09 Sienna Gallagher Un iversity of 02:26:[address] [facility] [place] [place] CBC WITH DIFF 2022-05-09 Sienna Gallagher [facility] of 02:24:[address] [facility] [place] [place] COMP. METABOLIC PANEL ([id number]) 2022-05-09 Sienna Gallagher Un iversity of 02:24:[address] [facility] [place] [place] LIPASE 2022-05-09 Sienna Gallagher [facility] of 02:24:[address] [facility] [place] [place] HB ECG ROUTINE & RHYTHM STRIP 2022-05-09 Sienna Gallagher Un iversity of 02:23:[address] [facility] [place] [place] CRITICAL CARE 2022-05-09 Sienna Gallagher [facility] of 02:03:[address] [facility] [place] [place] HOSPITAL ADMISSION 2022-05-08 [place] of 05:01:00 Unassigned, No [facility] MEMORANDUM OF TRANSFER (MOT) 2022-05-08 [facility] versity of 05:01:00 Unassigned, No [facility] CBC WITHOUT DIFF 2022-04-17 Igor Chucrhill of 16:37:00 [facility] PROTHROMBIN TIME / INR 2022-04-17 [facility] y of 16:37:00 [facility] HEPATIC FUNCTION PANEL ([id number]) 2022-04-17 DevoraIgor niversity of (ALB,T.PRO,BILI 16:37:00 [facility],BU/BC,ALT,AST,ALK PHOS) Branch XR CHEST 1 VW 2022-04-17 Will Kerr [place] of 15:53:[address] [facility] [place] [place] IR THORACENTESIS WITH IMAGING 2022-04-17 Rasta Altman niversity of 15:45:[address] [facility] [place] [place] IR PARACENTESIS/PERITONECENTESIS 2022-04-17 Kelsie Altman [facility] of WITH IMAGING 15:45:[address] [facility] [place] [place] DISCLOSURE AND CONSENT, MEDICAL 2022-04-17 [facility] of AND SURGICAL PROCEDURES 05:01:00 Unassigned, No [place] N[place] dical Name Branch PREPARE PACKED RBC 2022-04-16 Sherman Watt [place] of 19:26:[address] [facility] [place] [place] XR CHEST 1 VW 2022-04-16 Igor Churchill [facility] of 19:18:00 [facility] GLUCOSE BODY FLUID 2022-04-16 Shola Sales of 15:00:00 [facility] BODY FLUID MANUAL DIFF 2022-04-16 Shola Sales y of 15:00:00 [facility] T.PROTEIN BODY FLUID 2022-04-16 Shola Sales of 15:00:00 [facility] ASPIRATE OR ABSCESS 2022-04-16 Shola Sales o f CULTURE(AEROBIC/ANAEROBIC) 15:00:00 [facility] ALBUMIN BODY FLUID 2022-04-16 Shola Sales of 15:00:00 [facility] LDH TOTAL BODY FLUID 2022-04-16 Shola Sales of 15:00:00 [facility] IR PARACENTESIS/PERITONECENTESIS 2022-04-16 Shola Sales of WITH IMAGING 14:30:00 [facility] HB ABO GROUPING 2022-04-16 Sherman Watt of 10:45:[address] [facility] [place] [place] CBC WITH DIFF 2022-04-16 Connie Noble [facility] of 08:36:[address] [facility] [place] BASIC METABOLIC PANEL (NA, K, CL, 2022-04-16 [facility] of CO2, GLUCOSE, BUN, CREATININE, CA) 08:36:[address] [facility] [place] [place] DISCLOSURE AND CONSENT, MEDICAL 2022-04-16 [facility] of AND SURGICAL PROCEDURES 05:01:00 Unassigned, No [place] [facility] LACTATE DEHYDROGENASE 2022-04-15 Shola Sales [facility] of 18:34:00 [facility] PROTHROMBIN TIME / INR 2022-04-15 [facility] of 18:33:00 [facility] CBC WITH DIFF 2022-04-15 [facility] of 09:39:[address] [facility] [place] [place] BASIC METABOLIC PANEL (NA, K, CL, 2022-04-15 Kasi, [facility] of CO2, GLUCOSE, BUN, CREATININE, CA) 09:39:[address] [facility] [place] [place] MAGNESIUM 2022-04-15 [facility] of 09:39:[address] [facility] [place] [place] PREPARE PACKED RBC 2022-04-14 Elsy [facility] o f 11:03:[address] [facility] [place] [place] CBC WITH DIFF 2022-04-14 [facility] of 10:26:[address] [facility] [place] [place] BASIC METABOLIC PANEL (NA, K, CL, 2022-04-14 [facility] of CO2, GLUCOSE, BUN, CREATININE, CA) 10:26:[address] [facility] [place] [place] ESOPHAGOGASTRODUODENOSCOPY 2022-04-13 Denys Bustillos rsity of 19:44:[address] [facility] [place] [place] EGD (ENDO) 2022-04-13 Kasi [facility] of 19:36:[address] [facility] [place] [place] IR PARACENTESIS/PERITONECENTESIS 2022-04-13 Tanisha Watt [facility] WITH IMAGING 16:14:[address] [facility] [place] [place] BODY FLUID 2022-04-13 [facility] CULTURE(AEROBIC/ANAEROBIC) 16:10:[address] [facility] [place] [place] BODY FLUID MANUAL DIFF 2022-04-13 [facility] of 16:10:[address] [facility] [place] [place] T.PROTEIN BODY FLUID 2022-04-13 [facility] 16:10:[address] [facility] [place] [place] LDH TOTAL BODY FLUID 2022-04-13 Watt, [facility] of 16:10:[address] [facility] [place] [place] ALBUMIN BODY FLUID 2022-04-13 [facility] of 16:09:[address] [facility] [place] [place] CYTO ABDOMINAL FLUID 2022-04-13 [facility] of 16:05:00 [facility] COVID-19 (ID NOW RAPID TESTING) 2022-04-13 Igor Churchill [facility] of 09:41:00 [facility] CBC WITH DIFF 2022-04-13 Watt, [facility] of 09:41:[address] [facility] [place] [place] BASIC METABOLIC PANEL (NA, K, CL, 2022-04-13 Watt, [facility] of CO2, GLUCOSE, BUN, CREATININE, CA) 09:41:[address] [facility] [place] [place] MAGNESIUM 2022-04-13 Kasi [facility] of 09:41:[address] [facility] [place] LAB ONLY COVID INTERPRETATION 2022-04-13 Igor Churchill Un iversity of 09:41:00 [facility] PREPARE PACKED RBC 2022-04-13 [facility] of 01:14:[address] [facility] [place] [place] CBC WITHOUT DIFF 2022-04-12 [facility] of 23:09:[address] [facility] [place] XR CHEST 1 VW 2022-04-12 [facility] of 20:20:[address] [facility] [place] [place] CBC WITHOUT DIFF 2022-04-12 Igor Churchill [facility] of 18:07:00 [facility] PREPARE PACKED RBC 2022-04-12 [facility] of 17:59:[address] [facility] [place] BODY FLUID 2022-04-12 [facility] CULTURE(AEROBIC/ANAEROBIC) 14:45:[address] [facility] [place] [place] TRANSFUSE PACKED RBC 2022-04-12 [facility] of 14:39:[address] [facility] [place] [place] LACTATE DEHYDROGENASE 2022-04-12 [facility] of 13:19:[address] [facility] [place] [place] HB ABO GROUPING 2022-04-12 Linus [facility] of 13:00:[address] [facility] [place] [place] BODY FLUID MANUAL DIFF 2022-04-12 [facility] y of 11:02:[address] [facility] [place] [place] ALBUMIN BODY FLUID 2022-04-12 [facility] of 11:02:[address] [facility] [place] [place] LDH TOTAL BODY FLUID 2022-04-12 [facility] of 11:02:[address] [facility] [place] [place] T.PROTEIN BODY FLUID 2022-04-12 [facility] of 11:02:[address] [facility] [place] [place] XR CHEST 1 VW 2022-04-12 [facility] of 10:59:[address] [facility] [place] [place] CBC WITH DIFF 2022-04-12 [facility] of 09:13:[address] [facility] [place] [place] BASIC METABOLIC PANEL (NA, K, CL, 2022-04-12 [facility] of CO2, GLUCOSE, BUN, CREATININE, CA) 09:13:[address] [facility] [place] [place] MAGNESIUM 2022-04-12 [facility] of 09:13:[address] [facility] [place] [place] PHOSPHORUS 2022-04-12 [facility] of 09:13:[address] [facility] [place] [place] MRSA / MSSA SCREEN BY PCR, SAVANNA 2022-04-12 [facility] 09:13:[address] [facility] [place] [place] TRANSFUSE PACKED RBC 2022-04-12 Teena Chin [facility] 06:14:[address] [facility] [place] [place] BLOOD CULTURE SCREEN 2022-04-12 Teena Chin 03:26:[address] [facility] [place] [place] HB ABO GROUPING 2022-04-12 Teena Chin [facility] of 03:11:[address] [facility] [place] [place] XR CHEST 1 VW 2022-04-12 Teena Chin 02:24:[address] [facility] [place] [place] CT ABDOMEN PELVIS W CONTRAST 2022-04-12 Teena Chin Un iversity of 02:16:[address] [facility] [place] [place] CBC WITH DIFF 2022-04-12 Teena Chin [facility] of 01:44:[address] [facility] [place] URINALYSIS 2022-04-12 Teena Chin [facility] 01:44:[address] [facility] [place] [place] COMP. METABOLIC PANEL ([id number]) 2022-04-12 Teena Chin U niversity of 01:44:[address] [facility] [place] [place] LIPASE 2022-04-12 Teena Chin of 01:44:[address] [facility] [place] PROTHROMBIN TIME / INR 2022-04-12 Teena Chin Universi ty of 01:44:[address] [facility] [place] [place] ACTIVATED PARTIAL THRMPLAS MÓNICA 2022-04-12 Teena Chin [facility] 01:44:[address] [facility] [place] [place] AMMONIA, PLASMA 2022-04-12 Teena Chin [facility] 01:44:[address] [facility] [place] [place] CRITICAL CARE 2022-04-11 Teena Chin [facility] 21:40:[address] [facility] [place] DISCLOSURE AND CONSENT, MEDICAL 2022-04-11 [facility] AND SURGICAL PROCEDURES 05:01:00 Unassigned, No [facility] 2022-04-11 [facility] 05:01:00 Unassigned, No [facility] TRANSFUSE PACKED RBC 2022-02-16 Radha Nur [facility] 05:57:[address] [facility] [place] [place] Head/Neck CTA [id number] 2018-07-21 [place] Physic ians 00:00:00 Selective catheter placement, 2018-07-07 Nd moriak [place] vertebral artery, unilateral, with 17:40:00 angiography of the ipsilateral vertebral circulation and all associated radiological supervision and interpretation, includes angiography of the cervicocerebral arch, when performed Plan of Care Planned Activity Planned Date Details Comments Source Future Scheduled Test 2023-07-12 00:00:00 IMM Influenza [facility] Seasonal (>/= 19 yrs) [code = IMM Influenza Seasonal (>/= 19 yrs)] Future Scheduled Test 2023-07-12 00:00:00 IMM Influenza [facility] Seasonal (>/= 19 yrs) [code = IMM Influenza Seasonal (>/= 19 yrs)] Future Scheduled Test 2021-08-11 00:00:00 IMM Influenza [facility] Seasonal Oct to January (>/= 19 yrs) [code = IMM Influenza Seasonal Oct to January (>/= 19 yrs)] Future Scheduled Test 2021-08-11 00:00:00 IMM Influenza [facility] Seasonal Oct to January (>/= 19 yrs) [code = IMM Influenza Seasonal Oct to January (>/= 19 yrs)] Future Scheduled Test 2008 00:00:00 Screening for [facility] malignant neoplasm of colon (procedure) [code = 604442374] Future Scheduled Test 2008 00:00:00 Screening for [facility] malignant neoplasm of colon (procedure) [code = 379956653] Future Scheduled Test 2008 00:00:00 Screening for [facility] malignant neoplasm of colon (procedure) [code = 611480104] Future Scheduled Test 2008 00:00:00 Screening for [facility] malignant neoplasm of colon (procedure) [code = 488036138] Future Scheduled Test 1970 00:00:00 COVID-19 Vaccine (1) [facility] [code = COVID-19 Vaccine (1)] Future Scheduled Test 1970 00:00:00 COVID-19 Vaccine (1) [facility] [code = COVID-19 Vaccine (1)] Future Scheduled Test 1959-03-16 00:00:00 COVID-19 Vaccine (#1) [facility] [code = COVID-19 Vaccine (#1)] Future Scheduled Test 1959-03-16 00:00:00 COVID-19 Vaccine (#1) [facility] [code = COVID-19 Vaccine (#1)] Encounters Start End Encounter Admission Attending Care Care Encounter Source Date/Time Date/Time Type Type Clinicians Facility Department ID 2022-07-24 Outpatient Watt, STLMLC STLMLC [id number] Common 16:23:00 [facility] 2022-05-08 Inpatient X WANDA [facility] [id number] Univers 21:05:00 MICHAEL chand [facility] 2022-04-06 Outpatient Watt, STLMLC STLMLC [id number] Common 13:47:00 [facility] 2022-04-04 Outpatient Watt, STLMLC STLMLC [id number] Common 09:28:00 [facility] 2021-12-06 Outpatient Watt, STLMLC STLMLC [id number] Common 14:01:39 Darren 06775 [facility] 2021-12-06 Outpatient Watt, STLMLC STLMLC [id number] Common 13:38:23 Darren 78051 [facility] 2021-12-06 Outpatient Watt, STLMLC STLMLC [id number] Common 13:01:18 Darren 40118 [facility] 2021-12-06 Outpatient STLMLC STLMLC [id number] Common 12:47:09 98664 [facility] 2021-12-06 Outpatient Marco, Na STLMLC STLMLC [id number] Common 12:17:23 96028 [facility] 2021-12-06 Outpatient Millender, STLMLC STLMLC [id number] Common 11:10:59 Dianelys 26840 [facility] 2021-12-06 Outpatient Millender, STLMLC STLMLC [id number] Common 11:10:25 Dianelys 13356 [facility] 2021-12-06 Outpatient Smith, STLMLC STLMLC [id number] Common 11:09:57 Bella 99901 [facility] 2021-12-06 Outpatient Smith, STLMLC STLMLC [id number] Common 11:06:41 Bella 64769 [facility] 2021-12-06 Outpatient Smith, STLMLC STLMLC [id number] Common 10:59:13 Bella 20643 [facility] 2021-12-06 Outpatient Joy, STLMLC STLMLC [id number] Common 10:59:06 Nito 67695 [facility] 2021-09-10 Inpatient U STAN BENJAMIN [facility] MPU [id number] Univers 08:02:36 STAN BENJAMIN [facility] 2021-09-10 Inpatient R CLAUDINE [facility] KIKA [id number] Univers 00:10:53 FIOR [facility] 2017-10-08 Inpatient C MCSETX MCSETX [id number] Medical 07:14:00 [facility] 2017-08-29 Inpatient MCSETX MED [id number] Medical 13:35:00 [facility] 2017-07-03 Inpatient C MCSETX MCSETX [id number] Medical 15:05:00 [facility] 2023-08-26 2023-08-26 Outpatient R HANDY [facility] [id number] Univers 14:30:00 14:30:00 KATELIN chand [facility] 2023-08-06 2023-08-06 Telephone Handy [facility] 1.2.840.114 [id number] Univers 00:00:00 00:00:00 Katelin STALEY 350.1.13.10 ity of [place] [id number] [facility] AND PARSIPPANY [address] [facility] 2023-07-25 2023-07-25 Outpatient R FIOR CHOW [facility] [id number] Univers 08:45:00 09:41:40 FIOR CHOW ity of [facility] [place] 2023-07-25 2023-07-25 Ancillary Mino Trevor Linnea [facility] 1 .2.840.114 [id number] Univers 08:45:00 09:41:40 Visit Fior Chow 350.1.13.10 ity of [place] [facility] [id number] Nd dical NAL [address] BUILDING 2023-06-27 2023-06-27 Transition VAUGHN Cheatham 1.2.840.114 [id number] Univers 00:00:00 00:00:00 of Care Aminata Landry RAYMOND 350.1.13.10 i ty of [place] [id number] [facility] [address] 2023-06-23 2023-06-26 Inpatient X Alexander [facility] MONICA [id number] Univers 21:29:00 17:22:[address] [facility] [place] 2023-06-23 2023-06-26 Hospital Keith Brown 1.2.840.1 [id number] Univers 21:29:00 17:22:00 Encounter Michael Muñoz 350.1. 13.10 ity of [facility] 4.2.7.2.686 [place] [id number] [facility] [address] 2023-06-23 2023-06-23 Travel 1.2.840.1 1.2.235.281 [id number] Univers 00:00:00 00:00:00 39961.1.1 350.1.13.10 ity of 3.104.2.7 4.[place]7.3.698 [place] .3.720726 084.8 Medica l .8 [place] 2023-06-10 2023-06-10 Telephone Iliana, 1.2.840.8 [id number] Univers 00:00:00 00:00:00 Winter A 57519.1.1 ity of 3.104.2.7 [place] .3.852288 Medica l .8 [place] 2023-06-07 2023-06-07 [facility] 1.2.840.114 [id number] Univers 00:00:00 00:00:00 [facility] 350.1.13.10 it y of [facility] 4.2.7.2.686 Patrice as ROEL?BLEA [id number] Nd sabine JORDAN 044 [place] MEDICAL OFFICE BUILDING 2023-06-03 2023-06-03 Refill Iliana, 1.2.840.7 [id number] Univers 00:00:00 00:00:00 Wintre A 44870.1.1 ity of 3.104.2.7 [place] .3.206913 Medica l .8 [place] 2023-05-22 2023-05-22 Outpatient R JAMES [facility] [id number] Univers 09:00:00 09:24:22 SENDIL ity of [facility] [place] 2023-05-22 2023-05-22 Office Jmaes, 1.2.840.2 [id number] Univers 09:00:00 09:24:22 Visit Aye Antony 24157.1.1 ity of 3.104.2.7 [place] .3.393347 Medica l .8 [place] 2023-05-22 2023-05-22 Travel 1.2.840.1 1.2.338.515 [id number] Univers 00:00:00 00:00:00 87692.1.1 350.1.13.10 ity of 3.104.2.7 4.[place].7.3.698 [place] .3.151834 084.8 Medica l .8 [place] 2023-05-21 2023-05-21 [facility] [id number] Univers 10:30:00 10:30:00 LATA ity of [facility] [place] 2023-05-16 2023-05-16 Transition Chaparrita, 1.2.840.9 [id number] Univers 00:00:00 00:00:00 of Bebe Alatorre 79249.1.1 ity of 3.104.2.7 [place] .3.583495 Medica l .8 [place] 2023-05-12 2023-05-15 Inpatient X WANDA [facility] [id number] Univers 22:15:00 18:07:[address] [facility] [place] 2023-05-12 2023-05-15 [facility] Josué Caban 1.2.840.1 [id number] Univers 22:15:00 18:07:00 Encounter Michael Muñoz [facility] 57253.1.1 ity of Cecil munoz 3.104.2.7 [place] .3.196992 Medica l .8 [place] 2023-05-12 2023-05-12 Travel 1.2.840.1 1.2.941.538 [id number] Univers 00:00:00 00:00:00 68854.1.1 350.1.13.10 ity of 3.104.2.7 4.[place].7.3.698 [place] .3.770495 084.8 Medica l .8 [place] 2023-05-10 2023-05-10 [facility] [id number] Univers 08:30:00 08:57:[address] of [facility] [place] 2023-05-10 2023-05-10 Office Favio, 1.2.840.0 [id number] Univers 08:30:00 08:57:15 Visit Lata 06611.1.1 ity of 3.104.2.7 [place] .3.227279 Medica l .8 [place] 2023-05-10 2023-05-10 Travel 1.2.840.1 1.2.037.827 [id number] Univers 00:00:00 00:00:00 53109.1.1 350.1.13.10 ity of 3.104.2.7 4.2.7.3.698 [place] .3.278167 084.8 Medica l .8 [place] 2023-05-09 2023-05-09 Outpatient R VIDAL [facility] [id number] Univers 13:45:00 13:45:00 STALIN ity of [facility] [place] 2023-04-04 2023-04-04 Transition Chaparrita 1.2.840.1 [id number] Univers 00:00:00 00:00:00 of Bebe Alatorre 76311.1.1 ity of 3.104.2.7 [place] .3.712138 Medica l .8 [place] 2023-03-17 2023-04-03 [facility] [id number] Univers 15:50:00 20:05:00 SMITA it y of [facility] [place] 2023-03-17 2023-04-03 [facility] Monica Encinas 1.2.840.1 [id number] Univers 15:50:00 20:05:00 Encounter Cecil Kirby 65052.1.1 ity of Jocelyne Watt 3.104.2.7 [place] Smita Muñoz .3.297218 Medical .[address] [place] [address] 2023-03-18 2023-03-18 Outpatient R CINDY SILVERMAN [facility] 10 [id number] Univers 12:30:00 12:30:00 CINDY SILVERMAN i ty of [facility] [place] 2023-03-17 2023-03-17 Travel 1.2.840.1 1.2.503.216 8493 [id number] Univers 00:00:00 00:00:00 57113.1.1 350.1.13.10 ity of 3.104.2.7 [place].3.698 [place] .3.275449 084.8 Medica l .8 [place] 2023-03-15 2023-03-15 Telephone Lexie 1.2.840.4 [id number] Univers 00:00:00 00:00:00 Shiwan 75264.1.1 ity of 3.104.2.7 [place] .3.651282 Medica l .8 [place] 2023-03-14 2023-03-14 Telephone Lexie, 1.2.840.7 [id number] 102 [id number] Univers 00:00:00 00:00:00 Shiwan 42312.1.1 ity of 3.104.2.7 [place] .3.091114 Medica l .8 [place] 2023-03-12 2023-03-12 Office Lexie, 1.2.840.9 [id number] 0553 Univers 09:30:00 16:42:01 Visit Shiwan 89152.1.1 ity of 3.104.2.7 [place] .3.479532 Medica l .8 [place] 2023-03-12 2023-03-12 Outpatient R CINDY SILVERMAN [facility] 10 [id number] Univers 09:30:00 09:30:00 CINDY SILVERMAN i ty [facility] 2023-03-12 2023-03-12 Travel 1.2.840.1 1.2.118.937 1396 64337 Univers 00:00:00 00:00:00 83406.1.1 350.1.13.10 ity of 3.104.2.7 [place].3.698 [place] .3.455038 084.8 Medica l .8 [place] 2023-03-07 2023-03-07 Refill Iliana, 1.2.840.2 [id number] 03370 3375 Univers 00:00:00 00:00:00 Winter A 72060.1.1 ity of 3.104.2.7 [place] .3.361545 Medica l .8 [place] 2023-02-20 2023-02-20 [facility] [id number] Univers 14:00:00 14:00:00 AFAQ ity [facility] 2023-02-11 2023-02-11 [facility] [id number] Univers 15:00:00 16:11:08 AFAQ ity of [facility] [place] 2023-02-11 2023-02-11 Office Motiwala, 1.2.840.2 [id number] Univers 15:00:00 16:11:08 Visit Afaq 03464.1.1 ity of 3.104.2.7 [place] .3.211951 Medica l .8 Branch 2023-02-11 2023-02-11 Orders Doctor 1.2.840.6 [id number] 6287 Univers 00:00:00 00:00:00 Only Unassigned, 08040.1.1 ity of [place] 3.104.2.7 [place] .3.509315 Medica l .8 Branch 2023-02-11 2023-02-11 Travel 1.2.840.1 1.2.728.697 4785 39373 Univers 00:00:00 00:00:00 44250.1.1 350.1.13.10 ity of 3.104.2.7 4.[place].7.3.698 [place] .3.835972 084.8 Medica l .8 Branch 2023-02-06 2023-02-06 Refill Merwat, 1.2.840.8 [id number] 02322 7231 Univers 00:00:00 00:00:00 Sarah 15802.1.1 ity of Manisha 3.104.2.7 [place] .3.051247 Medica l .8 Branch 2023-01-30 2023-01-30 Refill Iliana, 1.2.840.3 [id number] 6191 Univers 00:00:00 00:00:00 Winter Murphy 55824.1.1 ity of 3.104.2.7 [place] .3.710375 Medica l .8 Branch 2023-01-04 2023-01-04 Refill Iliana, 1.2.840.5 [id number] 13515 9286 Univers 00:00:00 00:00:00 Winter Murphy 01971.1.1 ity of 3.104.2.7 [place] .3.214036 Medica l .8 Branch 2023-01-02 2023-01-02 Medical Staff Physician Winter Barrientos 1.2.840.1 [id number] Univers 14:30:00 16:41:05 Visit [place], [place] 17336.1.1 ity of 3.104.2.7 [place] .3.853761 Medica l .8 [place] 2023-01-02 2023-01-02 [facility] [id number] Univers 13:30:00 16:05:28 WINTER brendarefugio [facility] 2023-01-02 2023-01-02 Office Iliana, 1.2.840.7 [id number] 4281 Univers 13:30:00 16:05:28 Visit Winter Murphy 93713.1.1 ity of 3.104.2.7 [place] .3.588994 Medica l .8 [place] 2023-01-02 2023-01-02 Travel 1.2.840.1 1.2.343.498 2140 04167 Univers 00:00:00 00:00:00 79852.1.1 350.1.13.10 ity of 3.104.2.7 4.2.7.3.698 [place] [facility] .3.526825 084.[address] 2022-12-21 2022-12-21 Letter [facility] 1.2.840.114 [id number] Univers 00:00:00 00:00:00 (Out) Akshata MULTISPEC 350.1.13.10 ity of IALTY 4.2.7.2.686 [facility] 324.9580075 [facility] [address] [place] [facility] 2022-11-13 2022-11-13 Outpatient [facility] [id number] Univers 13:00:00 13:00:00 PRAVEENA chand [facility] 2022-10-17 2022-10-17 Telephone [facility] 1.2.431.098 2721 0823 Univers 00:00:00 00:00:00 Akshata MULTISPEC 350.1.13.10 ity of IALTY 4.2.7.2.686 [facility] [id number] [facility] [address] [facility] 2022-10-12 2022-10-12 Telephone [facility] 1.2.369.489 2225 2733 Univers 00:00:00 00:00:00 Akshata MULTISPEC 350.1.13.10 it[place] of [place]686 [place] [id number] [address] [facility] 2022-10-10 2022-10-10 Transition VAUGHN Eastman 1.2.840.114 98 [id number] Univers 00:00:00 00:00:00 of Care Fridaangel RAYMOND 350.1.13.10 i ty of [place] 4.2.7.2.686 [facility].9888261 [facility] [address] 2022-09-30 2022-10-09 Hospital Monica Encinas 1.2.840.1 1007 [id number] Univers 17:38:00 20:30:00 Encounter Person, Praveena 26694.1.1 ity of Shane Mansfield 3.104.2.7 [place] Michael Muñoz .3.898884 Medical .8 [place] 2022-10-08 2022-10-08 Outpatient R FAVIO [facility] [id number] Univers 15:00:00 15:00:00 LATA chand [facility] 2022-10-08 2022-10-08 Outpatient R FAVIO [facility] [id number] Univers 15:00:00 15:00:00 LATA chand [facility] 2022-10-02 2022-10-02 Telephone Reyna, 1.2.840.4 [id number] [id number] Univers 00:00:00 00:00:00 Deepaliata 37776.1.1 ity of 3.104.2.7 [place] .3.943196 Medica l .8 [place] 2022-10-01 2022-10-01 Surgery Person, 1.2.840.0 [id number] 098 Univers 01:30:00 04:53:00 Praveena 82733.1.1 ity of 3.104.2.7 [place] .3.379734 Medica l .8 Branch 2022-10-01 2022-10-01 Anesthesia Saurabh Joshua 1.2.840.5 108 [id number] Univers 02:23:00 04:29:00 Event Stalin Carbone 54109.1.1 ity of 3.104.2.7 [place] .3.562116 Medica l .8 Branch 2022-09-30 2022-09-30 Travel 1.2.840.1 1.2.589.457 1284 3393 Univers 00:00:00 00:00:00 83180.1.1 350.1.13.10 ity of 3.104.2.7 4.2.7.3.698 [place] .3.601226 084.8 Medica l .8 Branch 2022-09-27 2022-09-27 Emergency X JESUS [facility] ERT [id number] Univers 12:38:00 14:07:00 LOVE [address]y of [facility] [place] 2022-09-27 2022-09-27 Emergency Lee, 1.2.840.5 [id number] 01947 [facility] 12:38:00 14:07:00 Love 56794.1.1 ity of 3.104.2.7 [place] .3.336158 Medica l .8 Branch 2022-09-27 2022-09-27 Travel 1.2.840.1 1.2.023.706 7519 8115 Univers 00:00:00 00:00:00 65879.1.1 350.1.13.10 ity of 3.104.2.7 4.2.7.3.698 [place] .3.862409 084.8 Medica l .8 Branch 2022-09-26 2022-09-26 Transition Chaparrita, 1.2.840.8 [id number] Univers 00:00:00 00:00:00 of Bebe Alatorre 26140.1.1 ity of 3.104.2.7 [place] .3.093416 Medica l .8 Branch 2022-09-19 2022-09-25 Inpatient X SHANE MANSFIELD [facility] [id number] Univers 18:50:00 19:00:[address] [facility] [place] 2022-09-19 2022-09-25 [facility] Keith Brown 1.2.840.1 [id number] [facility] 18:50:00 19:00:00 [facility] [place] Kirby Trevor 69383.1.1 ity of Jordan Hutson 3.104.2.7 [facility] [place] [facility] .3.107655 Medical .8 Branch 2022-09-24 2022-09-24 Travel 1.2.840.1 1.2.993.627 6020 2207 Univers 00:00:00 00:00:00 84541.1.1 350.1.13.10 ity of 3.104.2.7 4.2.7.3.698 [place] .3.864892 084.8 Medica l .8 Branch 2022-09-19 2022-09-19 Travel 1.2.840.1 1.2.063.486 3878 8548 Univers 00:00:00 00:00:00 38752.1.1 350.1.13.10 ity of 3.104.2.7 4.2.7.3.698 [place] .3.484835 084.8 Medica l .8 Branch 2022-07-30 2022-07-30 (TEL) STLMLC STLMLC [id number] Co mmon 00:00:00 00:00:00 [facility] 2022-07-24 2022-07-24 (TEL) STLMLC STLMLC [id number] Co mmon 00:00:00 00:00:00 [facility] 2022-07-18 2022-07-18 Outpatient Orion KIM, [facility] [id number] Univers 00:00:00 00:00:00 ROHAN ity of [facility] [place] 2022-07-17 2022-07-17 (TEL) STLMLC STLMLC [id number] Co mmon 00:00:00 00:00:00 [facility] 2022-07-09 2022-07-09 (TEL) STLMLC STLMLC [id number] Co mmon 00:00:00 00:00:00 [facility] 2022-06-29 2022-06-29 Telephone Reyna, 1.2.840.6 [id number] [id number] Univers 00:00:00 00:00:00 Akbrandi 79979.1.1 ity of 3.104.2.7 [place] .3.002298 Medica l .8 Branch 2022-06-26 2022-06-26 Case Merwat, 1.2.840.5 [id number] 634 Univers 00:00:00 00:00:00 Management Octaviayar 81973.1.1 ity of 3.104.2.7 [place] .3.476440 Medica l .8 Branch 2022-06-25 2022-06-25 Case Tetet, 1.2.840.2 [id number] 512 Univers 00:00:00 00:00:00 Management Yariestrella 69187.1.1 ity of 3.104.2.7 [place] .3.833970 Medica l .8 Branch 2022-06-20 2022-06-20 Transition Cheatham, 1.2.840.4 [id number] 95 [id number] Univers 00:00:00 00:00:00 of Care Aminata Alatorre 18229.1.1 ity of 3.104.2.7 [place] .3.071493 Medica l .8 Branch 2022-06-10 2022-06-19 [facility] Love Lee 1.2.840.1 [id number] Univers 13:39:00 17:47:00 Encounter Sarmad Guzman 50635.1.1 ity of Berny Brewster Fathi 3.104.2.7 [place] Karlo Acharya .3.767380 [facility] Shane Mansfield .8 Branch 2022-06-10 2022-06-19 Inpatient SHANE MANSFIELD [facility] [id number] Univers 13:39:00 17:47:[address] [facility] [place] 2022-06-11 2022-06-11 Anesthesia Socrates, 1.2.840.3 [id number] Univers 10:28:00 11:13:00 Event Paola Jolley 48068.1.1 it y of 3.104.2.7 [place] .3.371206 Medica l .8 Branch 2022-06-11 2022-06-11 Surgery Fernando, 1.2.840.1 [id number] 184 Univers 08:59:00 09:29:00 Mannie Merino 40530.1.1 ity of 3.104.2.7 [place] .3.579022 Medica l .8 Branch 2022-06-10 2022-06-10 Inpatient X AUDREY, [facility] [id number] Univers 13:39:00 13:39:00 KARLO ity of [facility] [place] 2022-06-10 2022-06-10 Travel 1.2.840.1 1.2.450.983 7298 1903 Univers 00:00:00 00:00:00 05382.1.1 350.1.13.10 ity of 3.104.2.7 4.2.7.3.698 [place] .3.204798 084.8 Medica l .8 Branch 2022-05-28 2022-05-28 Orders Doctor 1.2.840.6 [id number] Univers 00:00:00 00:00:00 Only Unassigned, 63843.1.1 ity of [place] 3.104.2.7 [place] .3.016666 Medica l .8 Branch 2022-05-24 2022-05-24 (TEL) STLMLC STLC [id number] Co mmon 00:00:00 00:00:00 [facility] 2022-05-17 2022-05-17 Transition Chaparrita, 1.2.840.0 [id number] Univers 00:00:00 00:00:00 of Bebe Alatorre 92077.1.1 ity of 3.104.2.7 [place] .3.852503 Medica l .8 Branch 2022-05-08 2022-05-16 Hospital Sienna Gallagher 1.2.840.1 [id number] Univers 21:05:00 18:29:00 Encounter Berny Brewster Kirstin 89820.1.1 ity of Michael Muñoz [facility] 3.104.2.7 [place] .3.982159 Medica l .8 Branch 2022-05-08 2022-05-16 Inpatient X WANDA [facility] [id number] Univers 21:05:00 18:29:[address] [facility] [place] 2022-05-10 2022-05-10 Anesthesia Aron 1.2.840.1 1005 [id number] Univers 14:33:00 15:31:00 Event BharathangelBenny 45228.1.1 ity of 3.104.2.7 [place] .3.290131 Medica l .8 Branch 2022-05-10 2022-05-10 Surgery Babar Bang 1.2.840.0 [id number] 946 83850 Univers 14:25:00 15:02:00 Obed 51196.1.1 ity of 3.104.2.7 [place] .3.702536 Medica l .8 Branch 2022-05-09 2022-05-09 Anesthesia Loi, 1.2.840.7 [id number] Univers 15:59:33 15:59:33 Event Trevor 96848.1.1 ity of 3.104.2.7 [place] .3.056349 Medica l .8 Branch 2022-05-09 2022-05-09 Travel 1.2.840.1 1.2.051.589 2465 9237 Univers 00:00:00 00:00:00 63227.1.1 350.1.13.10 ity of 3.104.2.7 4.2.7.3.698 [place] .3.474203 084.8 Medica l .8 Branch 2022-05-08 2022-05-08 In[facility] [id number] Univers 21:05:00 21:05:00 BERNY ity o f [facility] [place] 2022-05-08 2022-05-08 Travel 1.2.840.1 1.2.013.504 0011 6425 Univers 00:00:00 00:00:00 46779.1.1 350.1.13.10 ity of 3.104.2.7 4.2.7.3.698 [place] .3.146304 084.8 Medica l .8 Branch 2022-05-04 2022-05-04 Telephone Tetet, 1.2.840.1 [id number] [id number] Univers 00:00:00 00:00:00 Sarah 36724.1.1 ity of [place]isha 3.104.2.7 [place] .3.409858 Medica l .8 Branch 2022-05-02 2022-05-02 Case Reenactt, 1.2.840.0 [id number] Univers 00:00:00 00:00:00 Management Sarah 09847.1.1 i ty of [place] 3.104.2.7 [place] .3.021973 Medica l .8 Branch 2022-04-19 2022-04-19 Outpatient R [facility] [id number] Univers 16:00:00 16:00:00 SARAH ity of [facility] [place] 2022-04-19 2022-04-19 Outpatient R [facility] [id number] Univers 16:00:00 16:00:00 SARAH ity of [facility] [place] 2022-04-18 2022-04-18 Transition Chaparrita, 1.2.840.5 [id number] Univers 00:00:00 00:00:00 of Care Aminata Alatorre 91461.1.1 ity of 3.104.2.7 [place] .3.199931 Medica l .8 Branch 2022-04-11 2022-04-17 [facility] Teena Chin 1.2.840.1 [id number] [id number] Univers 16:47:00 18:24:00 Encounter Sienna Gallagher 61135.1.1 ity of Albustami, Aixa 3.104.2.7 [place] Analilia Barrigai .3.470189 Medical Danie Schaefer8 Branch Rasta Altman 2022-04-11 2022-04-17 Inpatient X SHAIKH [facility] MONICA [id number] Univers 16:47:00 18:24:[address] [facility] [place] 2022-04-11 2022-04-17 Inpatient X SHAIKH [facility] MONICA [id number] Univers 16:47:00 18:24:[address] [facility] [place] 2022-04-17 2022-04-17 Travel 1.2.840.1 1.2.901.018 6522 8686 Univers 00:00:00 00:00:00 53090.1.1 350.1.13.10 ity of 3.104.2.7 4.2.7.3.698 [place] .3.406858 084.8 Medica l .8 Branch 2022-04-16 2022-04-16 Travel 1.2.840.1 1.2.691.555 1592 2574 Univers 00:00:00 00:00:00 03494.1.1 350.1.13.10 ity of 3.104.2.7 4.2.7.3.698 [place] .3.613172 084.8 Medica l .8 Branch 2022-04-13 2022-04-13 Anesthesia Trevor Monsivais 1.2.840.1 1009 900676 [id number] Univers 14:54:00 15:17:00 Event Smita Herzog 70644.1.1 ity of 3.104.2.7 [place] .3.469738 Medica l .8 Branch 2022-04-13 2022-04-13 Surgery Pallav, 1.2.840.6 [id number] 864 Univers 12:53:00 13:34:00 Mcfarlane 01279.1.1 ity of 3.104.2.7 [place] .3.166727 Medica l .8 Branch 2022-04-12 2022-04-12 Travel 1.2.840.1 1.2.092.114 9304 0455 Univers 00:00:00 00:00:00 31457.1.1 350.1.13.10 ity of 3.104.2.7 4.2.7.3.698 [place] .3.533299 084.8 Medica l .8 Branch 2022-04-11 2022-04-11 Inpatient X SCHAEFER [facility] MONICA [id number] Univers 16:47:00 16:47:00 DANIE [facility] 2022-04-11 2022-04-11 Travel 1.2.840.1 1.2.049.001 8030 6550 Univers 00:00:00 00:00:00 37205.1.1 350.1.13.10 ity of 3.104.2.7 4.2.7.3.698 [place] .3.271822 084.8 Medica l .8 Branch 2022-04-10 2022-04-10 (TEL) STLMLC STLMLC [id number] Co mmon 00:00:00 00:00:00 [facility] 2022-04-06 2022-04-06 OFFICE STLMLC STLMLC [id number] Co mmon 00:00:00 00:00:00 VISIT [facility] LEVEL 4 [facility] 2022-04-03 2022-04-03 (TEL) STLMLC STLMLC [id number] Co mmon 00:00:00 00:00:00 [facility] 2022-03-21 2022-03-21 (TEL) STLMLC STLMLC [id number] Co mmon 00:00:00 00:00:00 [facility] 2022-03-19 2022-03-19 Outpatient R JULIO [facility] [id number] Univers 13:00:00 13:00:00 ROHAN [facility] 2022-03-15 2022-03-16 Emergency X JESUS [facility] ERT [id number] Univers 21:58:00 01:18:00 [facility] 2022-03-16 Emergency [facility] 1.2.255.139 7967 7415 Univers 21:58:00 01:18:00 Love ESPINO 350.1.13.10 i ty of KIM 4.2.7.2.686 [facility] [id number] [facility] 084 Branch 2022-03-15 2022-03-16 Emergency Lee, 1.2.840.2 [id number] 933 69437 Univers 21:58:00 01:18:00 Love 59894.1.1 ity of 3.104.2.7 [place] .3.886804 Medica l .8 Branch 2022-03-15 2022-03-15 Travel 1.2.840.1 1.2.932.649 6189 7491 Univers 00:00:00 00:00:00 66655.1.1 350.1.13.10 ity of 3.104.2.7 4.2.7.3.698 [place] .3.663341 084.8 Medica l .8 [place] 2022-03-13 2022-03-13 Case Julio [facility] 1.2.840.114 [id number] Univers 00:00:00 00:00:00 Management Sarah STALEY 350.1.13.10 ity of Manisha IABLEL 4.2.7.2.686 [facility] [id number] [facility] [address] [place] [facility] 2022-03-13 2022-03-13 Case Julio, 1.2.840.8 [id number] [id number] 481 Univers 00:00:00 00:00:00 Management Sarah 69830.1.1 i ty of [place]isha 3.104.2.7 [place] .3.210837 Medica l .8 [place] 2022-03-12 2022-03-12 Medical Staff Physician [facility] 1.2.840.114 [id number] [id number] Univers 15:45:00 16:15:00 Visit Sarah KimPEC 350.1. 13.10 ity of IALTY 4.2.7.2.686 [facility] [id number] [facility] [address] [place] [facility] 2022-03-12 2022-03-12 Medical Staff Physician Sarah Kim 1.2.840.8 [id number] Univers 15:45:00 16:15:00 Visit [facility] 74022.1.1 ity of 3.104.2.7 [place] .3.425367 Medica l .8 [place] 2022-03-12 2022-03-12 Outpatient R JULIO, [facility] [id number] Univers 13:45:00 15:06:46 SARAH ity [facility] 2022-03-12 2022-03-12 Outpatient R REENAMTT, [facility] [id number] Univers 13:45:00 15:06:46 SARAH ity [facility] 2022-03-12 2022-03-12 Office Julio, 1.2.840.0 [id number] Univers 13:45:00 15:06:46 Visit Sarah 03868.1.1 ity of [place] 3.104.2.7 [place] .[facility].418451 [facility] [address] 2022-03-12 2022-03-12 Outpatient R JULIO, [facility] [id number] Univers 13:45:00 15:06:46 SARAH ity [facility] 2022-03-12 2022-03-12 Case [facility] 1.2.840.114 [id number] Univers 00:00:00 00:00:00 Management Janell Jolley MULTISPEC 350.1.13.10 ity of IALTY 4.2.7.2.686 [facility] 022.5100038 [facility] AND PARSIPPANY [address] [place] [facility] 2022-03-12 2022-03-12 Case Lee, 1.2.840.6 [id number] 7325 Univers 00:00:00 00:00:00 Management Janell Jolley 30479.1.1 ity of 3.104.2.7 [place] .3.371656 Medica l .8 [place] 2022-03-12 2022-03-12 Travel 1.2.840.1 1.2.223.810 6988 2870 Univers 00:00:00 00:00:00 10370.1.1 350.1.13.10 ity of 3.104.2.7 4.2.7.3.698 [place] .3.498647 084.8 Medica l .8 Branch 2022-03-06 2022-03-06 Telephone [facility] 1.2.840.114 93 [id number] Univers 00:00:00 00:00:00 Shannan STALEY 350.1.13.10 ity of IALTY 4.2.7.2.686 [facility] s CENTER [id number] [facility] AND ROSADO [address] [facility] 2022-03-06 2022-03-06 Telephone Akilah, 1.2.840.8 [id number] Univers 00:00:00 00:00:00 Shannan 67031.1.1 ity of 3.104.2.7 [place] .3.680676 Medica l .8 [place] 2022-03-05 2022-03-05 Outpatient R [facility] [id number] Univers 09:17:01 23:59:00 SANDY ity [facility] 2022-03-05 2022-03-05 Outpatient R [facility] [id number] Univers 09:17:01 23:59:00 SANDY ity [facility] 2022-03-05 2022-03-05 [facility] 1.2.840.114 [id number] Univers 09:00:00 23:59:00 Encounter Sandy SPECIALTY 350.1.13.10 ity of CARE 4.2.7.2.686 [facility] AT [id number] Nd sabine JACINTO 803 [facility] 2022-03-05 2022-03-05 [facility] 1.2.840.9 [id number] Univers 09:00:00 23:59:00 Encounter Sandy 65124.1.1 it y of 3.104.2.7 [place] .3.325747 Medica l .8 Branch 2022-03-05 2022-03-05 Travel 1.2.840.1 1.2.896.420 [id number] Univers 00:00:00 00:00:00 91677.1.1 350.1.13.10 [place] of 3.104.2.7 [place].698 [place] 084.8 Medica l .8 [place] 2022-02-26 2022-02-26 Outpatient R [facility] [id number] Univers 13:45:00 13:45:00 SARAH ity of [facility] [place] [place] 2022-02-26 2022-02-26 Transition VAUGHN Lindsey 1.2.840.114 [id number] Univers 00:00:00 00:00:00 of Care Shea RAYMOND 350.1.13.10 [place] [id number] [facility] 403 [place] 2022-02-26 2022-02-26 Transition César 1.2.840.9 [id number] Univers 00:00:00 00:00:00 of Care Shea 65562.1.1 i ty of 3.104.2.7 [place] .3.021214 Medica l .8 [place] 2022-02-15 2022-02-23 Inpatient [facility] MONICA [id number] Univers 19:00:00 15:20:00 SANDY ity of [facility] [place] 2022-02-15 2022-02-23 [facility] Love Lee 1.2.840.1 [id number] Univers 19:00:00 15:20:00 Encounter Sarmad Guzman 47143.1.1 ity of Aboueisha, Sandy 3.104.2.7 [place] .3.637195 Medica l .8 [place] 2022-02-15 2022-02-23 [facility] Love Lee 1.2.840.1 [id number] Univers 19:00:00 15:20:00 Encounter Sarmad Guzman 12981.1.1 ity of Gilbertoisha, Sandy 3.104.2.7 [place] .3.659055 Medica l .8 [place] 2022-02-16 2022-02-16 Surgery Merwat, 1.2.840.1 [id number] Univers 10:45:00 11:36:00 Sarah 38670.1.1 ity of [place] 3.104.2.7 [place] .3.400708 Medica l .8 Branch 2022-02-16 2022-02-16 Surgery Merwat, 1.2.840.7 [id number] Univers 10:45:00 11:36:00 Sarah 28427.1.1 ity of [place] 3.104.2.7 [place] .3.238045 Medica l .8 Branch 2022-02-15 2022-02-15 Travel 1.2.840.1 1.2.849.238 [id number] Univers 00:00:00 00:00:00 55202.1.1 350.1.13.10 it[place] of 3.104.2.7 [place]3.698 [place] .3.683822 084.8 Medica l .8 Branch 2022-02-15 2022-02-15 Travel 1.2.840.1 1.2.152.257 [id number] Univers 00:00:00 00:00:00 72883.1.1 350.1.13.10 [place]y of 3.104.2.7 [place]3.698 [place] .3.201304 084.8 Medica l .8 [place] 2022-01-29 2022-01-29 [facility] [id number] Univers 14:30:00 14:30:00 SARAH ity of [facility] [place] 2022-01-29 2022-01-29 Outpatient R [facility] [id number] Univers 13:30:00 13:30:00 SARAH ity [facility] 2022-01-12 2022-01-12 (TEL) [facility] [id number] Co mmon 00:00:00 00:00:00 [facility] 2022-01-11 2022-01-11 Mauricio Cheatham 1.2.840.4 [id number] Univers 00:00:00 00:00:00 of Care Aminata Alatorre 65873.1.1 ity of 3.104.2.7 [place] .3.042273 Medica l .8 [place] 2022-01-01 2022-01-10 Inpatient U WANDA [facility] [id number] Univers 12:41:00 19:34:00 ity [facility] 2022-01-01 2022-01-10 [facility] No Cain 1.2.840.4 [id number] Univers 12:41:00 19:34:00 Encounter Michael Muñoz [facility] 74715.1.1 ity of [place] 3.104.2.7 [place] .3.968685 Medica l .8 [place] 2022-01-05 2022-01-05 Outpatient R [facility] [id number] Univers 00:00:00 00:00:00 SARAH chand [facility] 2022-01-01 2022-01-01 Travel 1.2.840.1 1.2.065.372 [id number] Univers 00:00:00 00:00:00 61535.1.1 350.1.13.10 it[place] of 3.104.2.7 [place]3.698 [place] .3.459211 084.8 Medica l .8 [place] 2021-12-26 2021-12-26 Travel 1.2.840.1 1.2.073.833 [id number] Univers 00:00:00 00:00:00 14551.1.1 350.1.13.10 ity of 3.104.2.7 [place]7.3.698 [place] .3.580718 084.8 Medica l .8 [place] 2021-12-18 2021-12-18 Medical Staff Physician [facility] 1.2.840.114 [id number] Univers 17:00:00 17:15:00 Visit Sarah Kim MULTISPEC 350.1. 13.10 [place] [id number] [facility] AND PARSIPPANY [address] [facility] 2021-12-18 2021-12-18 Medical Staff Physician Sarah Kim 1.2.840.0 [id number] Univers 17:00:00 17:15:00 Visit Vtc-Lab 30854.1.1 ity of 3.104.2.7 [place] .3.965252 Medica l .8 [place] 2021-12-18 2021-12-18 [facility] [id number] [facility] 16:00:00 16:55:45 SARAH ity of [facility] [place] 2021-12-18 2021-12-18 Office Julio 1.2.840.2 [id number] 580 [facility] 16:00:00 16:55:45 Visit Sarah 84503.1.1 ity of [place] 3.104.2.7 [place] .3.579112 Medica l 8 [place] 2021-12-18 2021-12-18 [facility]patient [facility] [id number] [facility] 16:00:00 16:55:45 SARAH ity of [facility] [place] 2021-12-18 2021-12-18 Orders Doctor NACHO 1.2.840.114 [id number] Univers 00:00:00 00:00:00 Only Unassigned, BRIAN 350.1.13.10 ity of [place] [facility] 4.2.7.2.686 [facility] [phone] [facility] 009 Branch 2021-12-18 2021-12-18 Orders Doctor 1.2.840.2 [id number] Univers 00:00:00 00:00:00 Only Unassigned, 89510.1.1 ity of [place] 3.104.2.7 [place] .3.332595 Medica l .8 [place] 2021-12-18 2021-12-18 Travel 1.2.840.1 1.2.814.413 6525 3826 Univers 00:00:00 00:00:00 14973.1.1 350.1.13.10 ity of 3.104.2.7 4.[place]7.3.698 [place] .3.559104 084.8 Medica l .8 Branch 2021-10-25 2021-10-25 (TEL) STLMLC STLMLC [id number] Co mmon 00:00:00 00:00:00 Spirit - [facility] 2021-09-14 2021-09-14 Orders Doctor NACHO 1.2.840.114 [id number] Univers 00:00:00 00:00:00 Only Unassigned, BRIAN 350.1.13.10 [facility] 4.2.7.2.686 Patrice as [id number] [facility] 009 Branch 2021-08-29 2021-08-29 OFFICE STLC STLC [id number] Co mmon 00:00:00 00:00:00 VISIT Endy CASTELLANOS PT - CHI LEVEL 4 [facility] 2021-07-31 2021-07-31 Telephone [facility] 1.2.135.376 [id number] Univers 00:00:00 00:00:00 Sarah MULTISPEC 350.1.13.10 ity [place] [phone] [address] DIABETES CLINIC 2021-07-27 2021-07-27 Telephone [facility] 1.2.399.771 0198 1336 Univers 00:00:00 00:00:00 Sarah MULTISPEC 350.1.13.10 ity of [place] [phone] [address] DIABETES CLINIC 2021-07-26 2021-07-26 Telephone [facility] 1.2.840.433 1122 1093 Univers 00:00:00 00:00:00 Sarah MULTISPEC 350.1.13.10 it[place] [id number] [address] DIABETES CLINIC 2021-07-14 2021-07-14 (TEL) STLMLC STLMLC [id number] Co mmon 00:00:00 00:00:00 [facility] 2021-07-12 2021-07-12 Telephone Julio [facility] 1.2.791.890 [id number] 1983 Univers 00:00:00 00:00:00 Sarah MULTISPEC 350.1.13.10 ity of [place] IAY 4.2.7.2.[address] [facility] [phone] [address] DIABETES CLINIC 2021-07-04 2021-07-04 (TEL) STLMLC STLMLC [id number] Co mmon 00:00:00 00:00:00 [facility] 2021-06-30 2021-06-30 (TEL) STLMLC STLMLC [id number] Co mmon 00:00:00 00:00:00 [facility] 2021-06-27 2021-06-27 [facility] [id number] Co mmon 00:00:00 00:00:00 VISIT [facility] LEVEL 4 [facility] 2021-06-26 2021-06-26 Telephone Mayank [facility] 1.2.760.134 [id number] [id number] Univers 00:00:00 00:00:[address] [facility] 350.1.13.10 it y of Clear 4.2.7.2.686 [facility] [phone] [place] 986032 Branch Office Building 2021-06-23 2021-06-23 (TEL) STLC STLMLC [id number] Co mmon 00:00:00 00:00:00 [facility] 2021-06-22 2021-06-22 (TEL) STLMLC STLMLC [id number] Co mmon 00:00:00 00:00:00 [facility] 2021-06-20 2021-06-20 Inpatient LEBRON Walker [id number] [facility] 08:00:00 23:59:00 Wilber [facility] [place] [facility] 2021-06-20 2021-06-20 Out[facility] [id number] [facility] 18:57:00 18:57:00 Wilber [facility] [place] 2021-06-20 2021-06-20 Orders Doctor NACHO 1.2.840.114 [id number] Univers 00:00:00 00:00:00 Only Unassigned, BRIAN 350.1.13.10 ity of [place] [facility] 4.2.7.2.686 [facility] [phone] [facility] 009 Branch 2021-06-12 2021-06-12 Outpatient LEBRON Walker RADI [id number] [facility] 15:19:00 15:19:00 Wilber [address] [place] [address] [facility] 2021-06-08 2021-06-08 Telephone [facility] 1.2.383.038 [id number] 5398 Univers 00:00:00 00:00:00 Sarah MULTISPEC 350.1.13.10 ity of [place] PAYAN 4.2.7.2.686 [facility] [phone] [address] DIABETES CLINIC 2021-05-24 2021-05-24 (TEL) STLMLC STLMLC [id number] Co mmon 00:00:00 00:00:00 [facility] 2021-03-30 2021-03-30 [facility] 1.2.840.114 [id number] Univers 12:53:52 23:59:00 Encounter Mannie Espino 350.1.13.10 ity of [place] 4.2.7.2.686 [facility] [phone] [facility] 801 Branch 2021-03-30 2021-03-30 Outpatient [facility] 1033 [id number] Univers 00:00:00 00:00:[address] of [facility] [place] 2021-03-28 2021-03-28 Telephone [facility] 1.2.241.530 [id number] 8299 Univers 00:00:00 00:00:00 Sarah MULTISPEC 350.1.13.10 ity of [place] PAYAN 4.2.7.2.686 [facility] [phone] [facility] AND ASHLEE [address] [place] [address] DIABETES CLINIC 2021-03-20 2021-03-20 OFFICE [facility] [id number] Co mmon 00:00:00 00:00:00 VISIT Endy CASTELLANOS PT - CHI LEVEL 4 [facility] 2021-02-27 2021-02-27 Telephone [facility] 1.2.883.905 [id number] 6288 Univers 00:00:00 00:00:00 Sarah MULTISPEC 350.1.13.10 it[place] [id number] [address] DIABETES CLINIC 2021-02-21 2021-02-21 Telephone [facility] 1.2.674.236 [id number] 4613 00:00:00 00:00:00 Sarah MULTISPEC 350.1.13.10 [place] IALTY 4.2.7.2.686 [place] [id number] [place] [address] DIABETES CLINIC 2021-02-21 2021-02-21 Telephone [facility] 1.2.939.905 [id number] 4613 Univers 00:00:00 00:00:00 Sraah MULTISPEC 350.1.13.10 ity of [place] IALTY 4.2.7.2.686 [facility] [place] [id number] [address] DIABETES CLINIC 2021-02-15 2021-02-15 Orders Doctor NACHO 1.2.840.114 [id number] 00:00:00 00:00:00 Only Unassigned, BRIAN 350.1.13.10 [place] [facility] 4.2.7.2.686 [id number] 009 2021-02-15 2021-02-15 Orders Doctor NACHO 1.2.840.114 [id number] Univers 00:00:00 00:00:00 Only Unassigned, BRIAN 350.1.13.10 ity of [place] HOSPITAL 4.2.7.2.686 Patrice as [phone] [place] [address] Branch 2021-02-07 2021-02-07 Transition Vaughn Eastman 1.2.840.114 83 [id number] 00:00:00 00:00:00 of Bebe Calviny 350.1.13.10 [place] 4.2.7.2.686 [id number] 403 2021-02-07 2021-02-07 Transition Alayna Eastmandeonna 1.2.840.114 83 [id number] Univers 00:00:00 00:00:00 of Care Frida Calviny 350.1.13.10 i ty of [place] [id number] [facility] 403 Branch 2021-02-01 2021-02-04 [facility] Stan Benjamin 1.2.840.11 4 [id number] 02:18:00 17:45:00 Encounter Brian Cardosoant Brian 350.1 .13.10 [facility] 4.2.7.2.686 [id number] 094 2021-02-01 2021-02-04 [facility] Stan Benjamin 1.2.840.11 4 [id number] Univers 02:18:00 17:45:00 Encounter Brian Cardoso Joaquin [place] 350.1 .13.10 ity of [facility] 4.2.7.2.686 Pat[place] as [phone] [facility] 094 Branch 2021-02-01 2021-02-04 Inpatient U PRINCE [facility] [id number] Univers 02:18:00 17:45:[address] BRIAN ity of [facility] 2021-02-01 2021-02-01 [facility] 1.2.840.114 [id number] 14:44:00 15:39:00 Event Kriss Acharya ICAL 350.1.13.10 SCIENCES 4.2.7.2.686 [facility] [id number] 020 2021-02-01 2021-02-01 Anesthesia [facility] 1.2.840.114 [id number] Univers 14:44:00 15:39:00 Event Kriss Acharya ICAL 350.1.13.10 ity of [facility] 4.2.7.2.686 Patrice as BLDG [id number] [facility] 020 Branch 2021-01-06 2021-01-06 Outpatient R CLAUDINE [facility] [id number] Univers 13:30:00 13:30:00 [facility] 2021-01-06 2021-01-06 Orders Doctor NACHO 1.2.840.114 [id number] 00:00:00 00:00:00 Only Unassigned, BRIAN 350.1.13.10 [place] [facility] 4.2.7.2.686 [id number] [facility] 2021-01-06 2021-01-06 [facility] 1.2.840.114 82 [id number] 00:00:00 00:00:00 [facility] 350.1.13.10 Surgical 4.2.7.2.[address] Specialti [id number] [address] 2021-01-06 2021-01-06 (TEL) [facility] [id number] Co mmon 00:00:00 00:00:00 [facility] 2021-01-06 2021-01-06 Orders Doctor SALES 1.2.840.114 [id number] Univers 00:00:00 00:00:00 Only Unassigned, BRIAN 350.1.13.10 ity of [place] HOSPITAL 4.2.7.2.686 Patrice as [id number] [address] 2021-01-06 2021-01-06 Telephone [facility] 1.2.840.114 82 [id number] Univers 00:00:00 00:00:00 Fior [facility] 350.1.13.10 it y of Surgical 4.2.7.2.686 [place] as Specialti [phone] Nd dical 198 [facility] 2021-01-04 2021-01-04 Outpatient Orion ALEJANDRO [facility] [id number] Univers 14:30:00 14:30:00 [facility] 2020-12-21 2020-12-21 Outpatient Orion ALEJANDRO [facility] [id number] Univers 09:30:00 09:30:00 [facility] 2020-12-21 2020-12-21 Orders Doctor NACHO Sterling.2.840.114 [id number] 00:00:00 00:00:00 Only Unassigned, BRIAN 350.1.13.10 [place] [facility] 4.2.7.2.686 [id number] 009 2020-12-21 2020-12-21 Orders Doctor NACHO 1.2.840.114 [id number] [facility] 00:00:00 00:00:00 Only Unassigned, BRIAN 350.1.13.10 ity of [place] HOSPITAL 4.2.7.2.686 Pat[place] as [id number] [address] 2020-12-16 2020-12-16 Prep [facility] 1.2.840.114 [id number] [id number] 00:00:00 00:00:00 Surgery Fior Dawson [facility] 350.1.13.10 Surgical 4.2.7.2.686 Specialti [id number] es [address] [place] 2020-12-16 2020-12-16 Prep For Claudine [facility] 1.2.840.114 [id number] [id number] [facility] 00:00:00 00:00:00 Surgery Fior Dawson [facility] 350.1.13.10 it y of Surgical 4.2.7.2.686 [place] as Specialti [phone] Me dical es 198 [facility] 2020-12-15 2020-12-15 [facility] [id number] [facility] 16:15:00 16:15:00 FIOR chand [facility] 2020-12-15 2020-12-15 Office [facility] 1.2.534.813 3913 7191 13:05:48 13:44:18 Visit Fior Dawson [facility] 350.1.13.10 Surgical 4.2.7.2.686 Specialti [id number] es 198 [place] 2020-12-15 2020-12-15 Office [facility] 1.2.970.674 6866 7191 [facility] 13:05:48 13:44:18 Visit Fior Dawson [facility] 350.1.13.10 it y of Surgical 4.2.7.2.686 [place] as Specialti [phone] Me dical es 198 [facility] 2020-12-09 2020-12-09 [facility] 1.2.840.114 [id number] [id number] Univers 09:33:32 23:59:00 Encounter Maddie R Y HEALTH 350.1.13.10 ity of CL[place]2.[place] [id number] [address] 2020-12-09 2020-12-09 Outpatient R MAYANK [facility] [id number] 193 Univers 00:00:00 00:00:00 MADDIE jagruti [facility] 2020-11-25 2020-11-25 Telephone Mayank [facility] .2.840.114 80 [id number] Univers 00:00:00 00:00:00 Amddie R Y HEALTH 350.1.13.10 i ty of [place]2.[place].2.[place] [id number] [address] 2020-11-24 2020-11-24 [place] Mayank [facility] .2.840.114 80 [id number] Univers 00:00:00 00:00:00 Maddie R Y HEALTH 350.1.13.10 i ty of [place] 4[place]2.[place].2.[place] [id number] [address] 2020-10-27 2020-10-27 (TEL) [facility] [id number] Co mmon 00:00:00 00:00:00 [facility] 2020-10-18 2020-10-18 Outpatient [facility] [id number] 718 Univers 08:00:00 08:00:00 MADDIE chand [facility] 2020-09-26 2020-09-26 Telephone Mayank [facility] .2.840.114 79 [id number] Univers 00:00:00 00:00:00 Maddie R Y HEALTH 350.1.13.10 i ty of CLIN[place] 4.2.7.2.[place] [id number] [address] 2020-09-23 2020-09-23 Outpatient [facility] [id number] 656 Univers 09:00:00 09:00:00 MADDIE jagruti [facility] 2020 2020 Telephone [facility] 2.459.879 [id number] 5365 Univers 00:00:00 00:00:00 Maddie R Health 350.1.13.10 it [place] [phone] [facility] 092 Branch Office Building 2020-09-07 2020-09-07 Office Claud[facility] 1.2.058.184 5797 3066 Univers 13:29:49 14:05:58 Visit Fior Dupont 350.1.13.10 it y of Surgical 4.2.7.2.686 [place] as Specialti [phone] Nd dical es 198 [facility] 2020-09-07 2020-09-07 Outpatient [facility] [id number] Univers 13:30:00 13:30:00 FIOR chand [facility] 2020-09-02 2020-09-02 Hospital [facility] 1.2.840.114 [id number] [id number] Univers 12:23:34 23:59:00 Encounter Fior Espino 350.1.13.10 ity of [place] 4.2.7.2.686 [facility] [phone] [facility] 807 Branch 2020-09-02 2020-09-02 Outpatient [facility] [id number] [id number] Univers 10:00:00 10:00:00 FIOR chand [facility] 2020-09-02 2020-09-02 Outpatient [facility] [id number] Univers 00:00:00 00:00:00 FIOR chand [facility] 2020-09-02 2020-09-02 Telephone [facility] 1.2.840.114 [id number] Univers 00:00:00 00:00:00 Fior Dupont 350.1.13.10 it y of Surgical 4.2.7.2.686 [place] as Specialti [phone] Nd dical es 198 [facility] 2020-08-29 2020-08-29 Telephone ReenayousufUN[facility] 1.2.869.833 3082 8300 Univers 00:00:00 00:00:00 Sarah MULTISPEC 350.1.13.10 ity of [place].2.[place] [phone] [facility] AND [address] DIABETES CLINIC 2020-08-27 2020-08-27 Outpatient STLMLC STLMLC [id number] Common 00:00:00 00:00:00 [facility] 2020-08-26 2020-08-26 Outpatient Orion CHOW [facility] [id number] Univers 11:15:00 11:15:00 FIOR chand [facility] 2020-08-23 2020-08-23 Outpatient STLMLC STLMLC [id number] Common 00:00:00 00:00:00 [facility] 2020-08-17 2020-08-17 Telephone [facility] 1.2.130.059 [id number] 0388 Univers 00:00:00 00:00:00 Maddie R Health 350.1.13.10 [place].2.[place] [phone] [address] ([facility]) 2020-08-16 2020-08-16 Telephone Julio [facility] 1.2.131.027 [id number] 7928 Univers 00:00:00 00:00:00 Sarah MULTISPEC 350.1.13.10 ity of [place] IAL[place] 4.2.7.2.[place] [phone] [facility] AND [address] DIABETES CLINIC 2020-08-10 2020-08-10 Telephone English [facility] 1.2.360.607 2579 2710 Univers 00:00:00 00:00:00 Maddie R Health 350.1.13.10 it [place]2.7.2.[place] [phone] [address] ([facility]) 2020-08-04 2020-08-04 Office Dominik [facility] 1.2.004.267 3836 0233 Univers 12:00:39 17:02:23 Visit [facility] 350.1.13.10 it [place] 4[place]2.7.2.686 [place] [phone] [address] Office Building 2020-08-04 2020-08-04 Outpatient Orion VIDAL [facility] 84426 58040 Univers 12:00:00 12:00:00 PRABHJOT chand [facility] 2020-08-03 2020-08-03 Medical Staff Physician Kimo, Adc Lab Main [facility] 1.2.8 40.114 [id number] Univers 11:17:05 11:32:05 Visit Prabhjot Vidal Will 350.1.13.10 it[place].2.7.2.[place] [phone] Nd dical nal 353 [facility] 2020-08-03 2020-08-03 Outpatient R DOMINIK, [facility] 72078 06305 Univers 11:15:00 11:15:00 HASHEM ity of [facility] 2020-07-27 2020-07-27 Telephone DOLORES Talley 1.2.840.114 [id number] Univers 00:00:00 00:00:00 Maddie DUPONT 350.1.13.10 i ty of [facility] 4.2.7.2.686 [place] [phone] [facility] 803 [place] 2020-07-26 2020-07-26 Medical Staff Physician Kimo, Adc Lab Main [facility] 1.2.8 40.114 [id number] Univers 15:11:48 15:26:48 Visit ReenayousufYariSarahdesean Espino 350.1.1 3.10 it[place] 4.2.7.2.[place] [phone] Nd dical nal 353 [facility] 2020-07-26 2020-07-26 Laboratory Pc, Adc Echo Room 1 - [facility] 1 .2.840.114 [id number] Univers 13:54:37 14:54:37 Only Maddie Talley 350.1.13.10 ity of [place] 4.2.7.2.686 [place] Professio [phone] Nd dical nal 059 [facility] 2020-07-26 2020-07-26 Outpatient R [facility] [id number] Univers 14:00:00 14:00:[address] [facility] [place] 2020-07-26 2020-07-26 Orders Doctor SALES 1.2.840.114 [id number] Univers 00:00:00 00:00:00 Only Unassigned, BRIAN 350.1.13.10 ity of [place] [facility] 4.2.7.2.686 Patrice as [phone] [facility] 009 Branch 2020-07-21 2020-07-21 Telephone DOLORES Talley 1.2.840.114 [id number] Univers 00:00:00 00:00:00 Maddie R Y HEALTH 350.1.13.10 i ty of CLINICS 4.2.7.2.[place] [id number] [facility] 803 Branch 2020-06-29 2020-06-29 Telephone [facility] 1.2.655.433 4451 9365 Univers 00:00:00 00:00:00 Maddie R Health 350.1.13.10 it [place]2.7.2.[place] [id number] [facility] 092 [address] Office Building 2020-06-27 2020-06-27 Donovan [facility] 1.2.840.114 010105 30 Univers 00:00:00 00:00:00 Management Sarah MULTISPEC 350.1.13.10 ity of [place] I[place] 4.2.7.2.[place] [id number] [facility] 072 [address] DIABETES CLINIC 2020-06-27 2020-06-27 Telephone [facility] 1.2.760.132 9560 1536 Univers 00:00:00 00:00:00 Maddie R Health 350.1.13.10 it [place].7.2.[place] [phone] [facility] 803 Branch ([facility]) 2020-06-20 2020-06-20 Telephone DOLORES Talley 1.2.840.114 77 [id number] Univers 00:00:00 00:00:00 Maddie R Y HEALTH 350.1.13.10 i ty of CLINICS 4.2.7.2.[place] 702.0862198 [facility] 803 Branch 2020-06-20 2020-06-20 Telephone DOLORES Talley 1.2.840.114 77 [id number] Univers 00:00:00 00:00:00 Maddie R Y HEALTH 350.1.13.10 i ty of CLINICS 4.2.7.2.[place] [id number] [facility] 803 Branch 2020-06-14 2020-06-14 [facility] 1.2.840.114 [id number] 742 Univers 12:56:00 23:59:00 Encounter Maddie Espino 350.1.13.10 it[place]2.7.2.[place] [phone] [facility] 804 [place] 2020-06-14 2020-06-14 Medical Staff Physician Josr Malin Lab Main [facility] 1.2.8 40.114 [id number] Univers 13:58:53 16:30:46 Visit James Mcgarry Will 350.1.13.10 ity [place] 4.2.7.2.[place] [phone] Nd dical [facility] 353 [facility] 2020-06-14 2020-06-14 [facility] 1.2.840.114 [id number] 741 Univers 12:54:09 12:55:00 Encounter Maddie Espino 350.1.13.10 it[place] 4.2.7.2.686 [place] [phone] [facility] 801 [place] 2020-06-14 2020-06-14 [facility] 1.2.840.114 [id number] 740 Univers 12:50:59 12:53:00 Encounter Maddie Espino 350.1.13.10 ity of [place] 4.2.7.2.686 [place] [phone] [address] 2020-06-14 2020-06-14 Outpatient [facility] [id number] Univers 00:00:00 00:00:00 MADDIE chand [facility] 2020-05-17 2020-05-17 Outpatient R CLARISSA [facility] [id number] 265 Univers 10:00:00 10:00:00 HEIDE chand [facility] 2020-05-16 2020-05-16 Telephone Dominik [facility] 1.2.840.114 [id number] Univers 00:00:00 00:00:00 Hello! Messenger 350.1.13.10 it y [place].2.[place] [id number] [facility] [address] [place] Office Building 2020-05-15 2020-05-15 Telephone NACHO [place] 1.2.773.477 5660 7744 Univers 00:00:00 00:00:00 Angel SILVA 350.1.13.10 i ty of [facility] 4.2.7.2.686 Patrice as [phone] [facility] 019 Branch 2020-05-13 2020-05-13 [facility] 1.2.616.471 9881 0892 Univers 00:00:00 00:00:00 Sarah MULTISPEC 350.1.13.10 ity of [place] IALTY 4.2.7.2.686 [facility] [phone] [address] DIABETES [facility] 2020-05-13 2020-05-13 Telephone [facility] [id number] Univers 00:00:00 00:00:00 Sarah MULTISPEC 350.1.13.10 ity of [place] IALTY 4.2.7.2.686 [facility] [id number] [address] [facility]ES [facility] 2020-05-12 2020-05-12 Laboratory Only, Adc Test [facility] 1.2.840. 114 [id number] Univers 12:37:54 12:52:54 Only Sarah Kim 350.1.1 3.10 ity of Kim 4.2.7.2.686 [facility] [id number] [facility] [address] 2020-05-12 2020-05-12 Outpatient R [facility] [id number] Univers 12:30:00 12:30:00 SARAH ity of [facility] [place] [place] 2020-05-12 2020-05-12 Orders Doctor NACHO 1.2.840.114 [id number] Univers 00:00:00 00:00:00 Only Unassigned, BRIAN 350.1.13.10 ity of [place] [facility] 4.2.7.2.686 Patrice as [phone] [facility] [address] 2020-05-12 2020-05-12 Telephone [facility] [id number] Univers 00:00:00 00:00:00 Sarah MULTISPEC 350.1.13.10 [place] [id number] [address] [facility] 2020-04-22 2020-04-22 Case [facility] 1.2.840.114 [id number] Univers 00:00:00 00:00:00 Management Sarah MULTISPEC 350.1.13.10 [place] [id number] [address] [facility] 2020-04-12 2020-04-12 Telephone [facility] 1.2.840.114 [id number] Univers 00:00:00 00:00:00 [facility] 350.1.13.10 [place] [id number] [address] Office Building 2020-03-09 2020-03-09 [facility] 1.2.473.114 [id number] Univers 00:00:00 00:00:00 [facility] MULTISPEC 350.1.13.10 it[place] [id number] [address] [facility] 2020-01-12 2020-01-12 Office [facility] 1.2.207.158 [id number] Univers 12:57:30 16:35:32 Visit [facility] 350.1.13.10 [place] [id number] [address] Office Building 2020-01-12 2020-01-12 [facility] [id number] Univers 13:00:00 13:00:00 PRABHJOT ity of [facility] [place] [place] 2020-01-10 2020-01-10 Outpatient Ari Meehan 29 [id number] Common 15:39:00 15:39:00 [facility] it Road [facility] 2020-01-08 2020-01-08 Outpatient Ari Meehan [id number] Common 14:30:00 14:30:[address] [facility] 2019-10-16 2019-12-28 [facility] 1.2.840.114 [id number] [facility] 10:26:14 08:22:42 Visit Vitaly Espino 350.1.13.10 [place] [phone] [place] [address] [address] [facility] 2019-12-24 2019-12-24 Telephone [facility] [facility] [id number] Univers 00:00:00 00:00:00 [facility] [id number] [place] [phone] [address] Office [facility] 2019-12-21 2019-12-21 Telephone [facility] [id number] Univers 00:00:00 00:00:00 [facility] [id number] [place] [phone] [address] Office Building 2019-11-19 2019-11-19 Outpatient [facility] [place] 29 [id number] Common 09:51:00 09:51:00 t [facility] [place] [facility] 2019-09-09 2019-09-09 Outpatient [facility] [place] [id number] Common 13:40:00 13:40:00 t [facility] [address] [facility] 2019-08-19 2019-08-19 Outpatient [place] [place] [id number] Common 14:30:00 14:30:00 t [facility] [address] [facility] 2019-08-11 2019-08-11 Outpatient [place] [place] 27 [id number] Common 11:44:00 11:44:00 t [facility] [address] [facility] 2019-07-09 2019-07-09 Outpatient [facility] [place] [id number] Common 14:50:00 14:50:00 t [facility] [address] [facility] 2019-07-02 2019-07-02 [facility]patient [facility] [place] 27 [id number] Common 08:51:00 08:51:00 t [facility] [address] [facility] 2019-06-26 2019-06-26 Office Sheila [facility] 1.2.840.114 [id number] Univers 10:13:00 12:07:32 Visit Vitaly Espino 350.1.13.10 [place] [phone] Nd dical nal 092 [facility] 2019-06-26 2019-06-26 Medical Staff Physician 2, Adc Lab [facility] 1.2.840.114 [id number] Univers 11:35:21 11:50:21 Visit Vitaly Sosa 350.1.13 .10 [place] [phone] Nd dical nal 353 [facility] 2019-06-26 2019-06-26 Orders Doctor SALES 1.2.840.114 [id number] Univers 00:00:00 00:00:00 Only Unassigned, BRIAN 350.1.13.10 ity of [place] [facility] 4.2.7.2.686 Patrice as [phone] [address] 2019-06-17 2019-06-17 Telephone Sheila [facility] 1.2.840.114 [id number] Univers 00:00:00 00:00:00 Vitaly Espino 350.1.13.10 [place] [phone] Nd dical nal 092 [facility] 2019-06-11 2019-06-11 [facility] [place] [id number] Common 11:55:00 11:55:00 t [employer] [address] [facility] 2019-06-08 2019-06-08 [facility] [place] 26 [id number] Common 14:00:00 14:00:00 t [facility] [employer] [address] [facility] 2019-06-05 2019-06-05 Telephone Sheila [facility] 1.2.840.114 [id number] Univers 00:00:00 00:00:00 Vitaly Espino 350.1.13.10 [facility] 4.2.7.2.686 Ivis Ulrich [phone] Nd dical [facility] 2019-06-03 2019-06-03 [facility] [place] [id number] Common 10:15:00 10:15:00 [facility] it [facility] 2019-04-14 2019-04-14 Ambulatory nullFlavo MNA [id number] Memoria 19:30:00 19:30:00 Pre-Reg r Neurology 00 l [facility] 2019-04-14 2019-04-14 [facility]patient [facility] [place] [id number] 14:30:00 14:30:00 Solitario Welsh 2019-03-11 2019-03-11 [facility] [place] 25 [id number] Common 10:50:00 10:50:00 [facility] it Road [facility] 2019-03-05 2019-03-05 [facility] [place] [id number] Common 13:30:00 13:30:00 [facility] it [facility] 2018-12-23 2018-12-23 Appointmen MADDISON HATHAWAY [facility] [id number] [place] 14:00:00 14:00:00 t; CHANDRAKANT HATHAWAY NP Physici salima [employer] 2018-07-21 2018-07-21 Appointmen MADDISON CHOW Neurology [id number] [place] 11:00:00 11:00:00 t; RAJI CHOW, Ph Corry Vigil M.D. 2018-07-04 2018-07-08 Inpatient nullFlavo [facility] [id number] Memoria 18:31:00 22:30:00 r Franko 36 [facility] 2018-07-04 2018-07-08 [facility] [id number] 13:31:00 17:30:[address] [place] [address] 2018-05-23 2018-05-23 Emergency [facility] [id number] Sky 20:46:01 20:46:01 Health 2018-05-23 2018-05-23 Emergency [facility] [id number] [place] 19:26:42 19:26:42 Health 2017-08-12 2017-08-12 Outpatient C MCSETX MCSETX [id number] Medical 09:26:00 09:26:00 [facility] 2017-06-13 2017-06-13 Outpatient C MCSETX MCSETX [id number] Medical 14:15:00 14:15:00 [facility] 2017-06-05 2017-06-05 Outpatient C MCSETX MED [id number] Medical 09:33:00 09:33:00 [facility] 2017-03-19 2017-03-19 Outpatient C MCSETX KIKA [id number] Medical 07:13:00 07:13:00 [facility] 2017-02-06 2017-02-06 Outpatient C MCSETX KIKA [id number] Medical 07:43:00 07:43:00 [facility] 2017-01-08 2017-01-08 Outpatient C MCSETX MED [id number] Medical 07:03:00 07:03:00 [facility] Results Test Description Test Time Test Comments Results Result Comments Source MAGNESIUM 2023-06-26 11:50:56 Test Item Value Reference Range Interpretation Comme nts MAGNESIUM (test code = 0727170999) 1.9 mg/dL 1.7-2.4 Lab Interpretation (test code = 60971-0) Normal [facility] (NA, K, CL, CO2, GLUCOSE, BUN, CREATININE, CA)2023-06-26 11:50:56 Test Item Value Reference Range Interpretation Comments NA (test code = 134 mmol/L 135-145 L 6611426819) K (test code = 5.1 mmol/L 3.5-5.0 H 7831707846) CL (test code = 106 mmol/L 98-108 1304242589) CO2 TOTAL (test code = 19 mmol/L 23-31 L 9995597145) AGAP (test code = 9 2-16 1479603413) BUN (test code = 34 mg/dL 7-23 H 4931299079) GLUCOSE (test code = 96 mg/dL 70-110 8750933735) CREATININE (test code = 1.00 mg/dL 0.60-1.25 8041382591) CALCIUM (test code = 8.4 mg/dL 8.6-10.6 L 7240908363) eGFR (test code = 75.2 mL/min/1.73m2 2068762114) LUZMARIA (test code = LUZMARIA) Association of [...] tests). Lab Interpretation Abnormal (test code = 04364-0) [facility] 11:50:56 Test Item Value Reference Range Interpretation Comments MAGNESIUM (test code = 4819113741) 1.9 mg/dL 1.7-2.4 Lab Interpretation (test code = Normal 48480-7) [facility] (NA, K, CL, CO2, GLUCOSE, BUN, CREATININE, CA)2023-06-26 11:50:56 Test Item Value Reference Range Interpretation Comments NA (test code = 134 mmol/L 135-145 L 9124499301) K (test code = 5.1 mmol/L 3.5-5.0 H 1874701910) CL (test code = 106 mmol/L 98-108 3548640167) CO2 TOTAL (test code = 19 mmol/L 23-31 L 9079225042) AGAP (test code = 9 2-16 4325981863) BUN (test code = 34 mg/dL 7-23 H 0127923303) GLUCOSE (test code = 96 mg/dL 70-110 4137276639) CREATININE (test code = 1.00 mg/dL 0.60-1.25 5921350759) CALCIUM (test code = 8.4 mg/dL 8.6-10.6 L 5188877988) eGFR (test code = 75.2 mL/min/1.73m2 5138823794) LUZMARIA (test code = LUZMARIA) Association of [...] tests). Lab Interpretation Abnormal (test code = 53835-0) [facility] METABOLIC PANEL (NA, K, CL, CO2, GLUCOSE, BUN, CREATININE, CA)2023-06-26 11:50:56 Test Item Value Reference Range Interpretation Comments NA (test code = 134 mmol/L 135-145 L 2879776551) K (test code = 5.1 mmol/L 3.5-5.0 H 5497592077) CL (test code = 106 mmol/L 98-108 1810764467) CO2 TOTAL (test code = 19 mmol/L 23-31 L 3441875593) AGAP (test code = 9 2-16 8558075229) BUN (test code = 34 mg/dL 7-23 H 3916577392) GLUCOSE (test code = 96 mg/dL 70-110 2140453336) CREATININE (test code = 1.00 mg/dL 0.60-1.25 9860713152) CALCIUM (test code = 8.4 mg/dL 8.6-10.6 L 9265524048) eGFR (test code = 75.2 mL/min/1.73m2 2186531287) LUZMARIA (test code = LUZMARIA) Association of [...] tests). Lab Interpretation Abnormal (test code = 78829-0) [facility] 11:50:56 Test Item Value Reference Range Interpretation Comments MAGNESIUM (test code = 3714185312) 1.9 mg/dL 1.7-2.4 Lab Interpretation (test code = Normal 65801-9) [facility] WITH [id number] 10:53:29 Test Item Value Reference Range Interpretation Comments WBC (test code = 3.17 See_Comment L [Automated 6690-2) message] The sy stem which generated this result transmitted reference range : 4.20 - 10.70 10*3/?L. The reference range was not used to interpret this result as normal/abnormal . RBC (test code = 3.11 See_Comment L [Automated 789-8) message] The sy stem which generated this result transmitted reference range : 4.26 - 5.52 10*6/?L. The reference range was not used to interpret this result as normal/abnormal . HGB (test code = 8.9 g/dL 12.2-16.4 L 718-7) HCT (test code = 27.8 % 38.4-49.3 L 4544-3) MCV (test code = 89.4 fL 81.7-95.6 787-2) MCH (test code = 28.6 pg 26.1-32.7 785-6) MCHC (test code = 32.0 g/dL 31.2-35.0 786-4) RDW-SD (test code = 70.2 fL 38.5-51.6 H 70529-3) RDW-CV (test code = 21.3 % 12.1-15.4 H 788-0) PLT (test code = 111 See_Comment L [Automated 777-3) message] The sy stem which generated this result transmitted reference range : 150 - 328 10*3/ ?L. The reference r brianne was not used to interpret this result as normal/abnormal . MPV (test code = 9.8 fL 9.8-13.0 22911-5) NRBC/100 WBC (test 0.0 See_Comment [Automat ed code = 1068074648) message] The system which generated this result transmitted reference range : 0.0 - 10.0 /100 WBCs. The refer ence range was not u sed to interpret th is result as normal/abnormal . NRBC x10^3 (test code See_Comment [Auto mated = 9210855119) message] The s ystem which generated this result transmitted reference range : 10*3/?L. The reference range was not used to interpret this result as normal/abnormal . GRAN MAT (NEUT) % 65.7 % (test code = 770-8) IMM GRAN % (test code 0.30 % = 0738556479) LYMPH % (test code = 18.9 % 736-9) MONO % (test code = 8.5 % 5905-5) EOS % (test code = 5.7 % 713-8) BASO % (test code = 0.9 % 706-2) GRAN MAT x10^3(ANC) 2.08 10*3/uL 1.99-6.95 (test code = 0465320135) IMM GRAN x10^3 (test 0.00-0.06 code = 6502024093) LYMPH x10^3 (test code 0.60 10*3/uL 1.09-3.23 L = 731-0) MONO x10^3 (test code 0.27 10*3/uL 0.36-1.02 L = 742-7) EOS x10^3 (test code = 0.18 10*3/uL 0.06-0.53 711-2) BASO x10^3 (test code 0.03 10*3/uL 0.01-0.09 = 704-7) Lab Interpretation Abnormal (test code = 67835-9) [facility] WITH [id number] 10:53:29 Test Item Value Reference Range Interpretation Comments WBC (test code = 3.17 See_Comment L [Automated 6690-2) message] The sy stem which generated this result transmitted reference range : 4.20 - 10.70 10*3/?L. The reference range was not used to interpret this result as normal/abnormal . RBC (test code = 3.11 See_Comment L [Automated 789-8) message] The sy stem which generated this result transmitted reference range : 4.26 - 5.52 10*6/?L. The reference range was not used to interpret this result as normal/abnormal . HGB (test code = 8.9 g/dL 12.2-16.4 L 718-7) HCT (test code = 27.8 % 38.4-49.3 L 4544-3) MCV (test code = 89.4 fL 81.7-95.6 787-2) MCH (test code = 28.6 pg 26.1-32.7 785-6) MCHC (test code = 32.0 g/dL 31.2-35.0 786-4) RDW-SD (test code = 70.2 fL 38.5-51.6 H 01641-0) RDW-CV (test code = 21.3 % 12.1-15.4 H 788-0) PLT (test code = 111 See_Comment L [Automated 777-3) message] The sy stem which generated this result transmitted reference range : 150 - 328 10*3/ ?L. The reference r brianne was not used to interpret this result as normal/abnormal . MPV (test code = 9.8 fL 9.8-13.0 71921-4) NRBC/100 WBC (test 0.0 See_Comment [Automat ed code = 8308138150) message] The system which generated this result transmitted reference range : 0.0 - 10.0 /100 WBCs. The refer ence range was not u sed to interpret th is result as normal/abnormal . NRBC x10^3 (test code See_Comment [Auto mated = 4653835735) message] The s ystem which generated this result transmitted reference range : 10*3/?L. The reference range was not used to interpret this result as normal/abnormal . GRAN MAT (NEUT) % 65.7 % (test code = 770-8) IMM GRAN % (test code 0.30 % = 1641320822) LYMPH % (test code = 18.9 % 736-9) MONO % (test code = 8.5 % 5905-5) EOS % (test code = 5.7 % 713-8) BASO % (test code = 0.9 % 706-2) GRAN MAT x10^3(ANC) 2.08 10*3/uL 1.99-6.95 (test code = 3574067246) IMM GRAN x10^3 (test 0.00-0.06 code = 7216713575) LYMPH x10^3 (test code 0.60 10*3/uL 1.09-3.23 L = 731-0) MONO x10^3 (test code 0.27 10*3/uL 0.36-1.02 L = 742-7) EOS x10^3 (test code = 0.18 10*3/uL 0.06-0.53 711-2) BASO x10^3 (test code 0.03 10*3/uL 0.01-0.09 = 704-7) Lab Interpretation Abnormal (test code = 88910-3) [facility] WITH [id number] 10:53:29 Test Item Value Reference Range Interpretation Comments WBC (test code = 3.17 See_Comment L [Automated 6690-2) message] The sy stem which generated this result transmitted reference range : 4.20 - 10.70 10*3/?L. The reference range was not used to interpret this result as normal/abnormal . RBC (test code = 3.11 See_Comment L [Automated 209-8) message] The sy stem which generated this result transmitted reference range : 4.26 - 5.52 10*6/?L. The reference range was not used to interpret this result as normal/abnormal . HGB (test code = 8.9 g/dL 12.2-16.4 L 718-7) HCT (test code = 27.8 % 38.4-49.3 L 4544-3) MCV (test code = 89.4 fL 81.7-95.6 787-2) MCH (test code = 28.6 pg 26.1-32.7 785-6) MCHC (test code = 32.0 g/dL 31.2-35.0 786-4) RDW-SD (test code = 70.2 fL 38.5-51.6 H 08043-0) RDW-CV (test code = 21.3 % 12.1-15.4 H 788-0) PLT (test code = 111 See_Comment L [Automated 777-3) message] The sy stem which generated this result transmitted reference range : 150 - 328 10*3/ ?L. The reference r brianne was not used to interpret this result as normal/abnormal . MPV (test code = 9.8 fL 9.8-13.0 56601-5) NRBC/100 WBC (test 0.0 See_Comment [Automat ed code = 1399075425) message] The system which generated this result transmitted reference range : 0.0 - 10.0 /100 WBCs. The refer ence range was not u sed to interpret th is result as normal/abnormal . NRBC x10^3 (test code See_Comment [Auto mated = 3475592520) message] The s ystem which generated this result transmitted reference range : 10*3/?L. The reference range was not used to interpret this result as normal/abnormal . GRAN MAT (NEUT) % 65.7 % (test code = 770-8) IMM GRAN % (test code 0.30 % = 8093787698) LYMPH % (test code = 18.9 % 736-9) MONO % (test code = 8.5 % 5905-5) EOS % (test code = 5.7 % 713-8) BASO % (test code = 0.9 % 706-2) GRAN MAT x10^3(ANC) 2.08 10*3/uL 1.99-6.95 (test code = 1396437819) IMM GRAN x10^3 (test 0.00-0.06 code = 6728768859) LYMPH x10^3 (test code 0.60 10*3/uL 1.09-3.23 L = 731-0) MONO x10^3 (test code 0.27 10*3/uL 0.36-1.02 L = 742-7) EOS x10^3 (test code = 0.18 10*3/uL 0.06-0.53 711-2) BASO x10^3 (test code 0.03 10*3/uL 0.01-0.09 = 704-7) Lab Interpretation Abnormal (test code = 24172-3) [facility] [id number] 16:43:55 Test Item Value Reference Range Interpretation Comments ALBUMIN BF (test code 327.0 mg/dL = 1137106903) LUZMARIA (test code = LUZMARIA) Result interpreted relative to the serum concentration. ? [facility] [id number] 16:43:55 Test Item Value Reference Range Interpretation Comments ALBUMIN BF (test code 327.0 mg/dL = 2642727752) LUZMARIA (test code = LUZMARIA) Result interpreted relative to the serum concentration. ? [facility] [id number] 16:43:55 Test Item Value Reference Range Interpretation Comments ALBUMIN BF (test code 327.0 mg/dL = 7760952597) LUZMARIA (test code = LUZMARIA) Result interpreted relative to the serum concentration. ? [facility] [id number] 11:13:46 Test Item Value Reference Range Interpretation Comments T.PROT BF (test 929.0 mg/dL code = 3907365928) UNSPUN BODY FLUID Light Yellow COLOR (test code = 1157962102) UNSPUN BODY FLUID Clear CLARITY (test code = 6617425496) SPUN BODY FLUID Light Yellow COLOR (test code = 6150292564) SPUN BODY FLUID Clear CLARITY (test code = 7393816606) Sediment (test code The sediment volume is = 4555513593) <0.1 mLs of the total fluid volume of 2.5 and its color is red. LUZMARIA (test code = Test developed and LUZMARIA) characteristics determined by [facility] Laboratory Services. [facility] [id number] 11:13:46 Test Item Value Reference Range Interpretation Comments T.PROT BF (test 929.0 mg/dL code = 0967393121) UNSPUN BODY FLUID Light Yellow COLOR (test code = 0629166244) UNSPUN BODY FLUID Clear CLARITY (test code = 9258311622) SPUN BODY FLUID Light Yellow COLOR (test code = 5254477597) SPUN BODY FLUID Clear CLARITY (test code = 1269365950) Sediment (test code The sediment volume is = 9035372821) <0.1 mLs of the total fluid volume of 2.5 and its color is red. LUZMARIA (test code = Test developed and LUZMARIA) characteristics determined by [facility] Laboratory Services. [facility] CenterT.PROTEIN BODY [id number] 11:13:46 Test Item Value Reference Range Interpretation Comments T.PROT BF (test 929.0 mg/dL code = 2115495242) UNSPUN BODY FLUID Light Yellow COLOR (test code = 4573812891) UNSPUN BODY FLUID Clear CLARITY (test code = 9361698342) SPUN BODY FLUID Light Yellow COLOR (test code = 8441324976) SPUN BODY FLUID Clear CLARITY (test code = 1021349479) Sediment (test code The sediment volume is = 2182554745) <0.1 mLs of the total fluid volume of 2.5 and its color is red. LUZMARIA (test code = Test developed and LUZMARIA) characteristics determined by [facility] Laboratory Services. [facility] CenterBODY FLUID MANUAL [id number] 11:03:36 Test Item Value Reference Range Interpretation Comments BF SEGS% (test code = 37058-7) 12 % BF LYMPHS% (test code = 81916-0) 33 % BF MACROPHAGE% (test code = 65781-3) 54 % BF EOS% (test code = 35783-5) 1 % BF #CELLS CNTD (test code = 3161780423) 100 cells/uL [facility] Center[facility] FL[facility] MANUAL [id number] 11:03:36 Test Item Value Reference Range Interpretation Comments BF SEGS% (test code = 07235-1) 12 % BF LYMPHS% (test code = 04352-8) 33 % BF MACROPHAGE% (test code = 85492-4) 54 % BF EOS% (test code = 28590-4) 1 % BF #CELLS CNTD (test code = 8873712044) 100 cells/uL [facility] Center[facility] FLUID MANUAL [id number] 11:03:36 Test Item Value Reference Range Interpretation Comments BF SEGS% (test code = 12566-1) 12 % BF LYMPHS% (test code = 68741-9) 33 % BF MACROPHAGE% (test code = 77072-7) 54 % BF EOS% (test code = 45547-8) 1 % BF #CELLS CNTD (test code = 9409976932) 100 cells/uL [facility] TOTAL BODY [id number] 10:32:49 Test Item Value Reference Range Interpretation Comments LDH BF (test code = 50 U/L 5772146360) UNSPUN BODY FLUID Light Yellow COLOR (test code = 6305185584) UNSPUN BODY FLUID Clear CLARITY (test code = 4353069044) SPUN BODY FLUID Light Yellow COLOR (test code = 0114710234) SPUN BODY FLUID Clear CLARITY (test code = 1683447396) Sediment (test code The sediment volume is = 6070476368) <0.1 mLs of the total fluid volume of 2.5 and its color is red. LUZMARIA (test code = Test developed and LUZMARIA) characteristics determined by [facility] Laboratory Services. [facility] TOTAL BODY [id number] 10:32:49 Test Item Value Reference Range Interpretation Comments LDH BF (test code = 50 U/L 6850607946) UNSPUN BODY FLUID Light Yellow COLOR (test code = 2636288615) UNSPUN BODY FLUID Clear CLARITY (test code = 0460904214) SPUN BODY FLUID Light Yellow COLOR (test code = 5967800493) SPUN BODY FLUID Clear CLARITY (test code = 8769771357) Sediment (test code The sediment volume is = 2328587836) <0.1 mLs of the total fluid volume of 2.5 and its color is red. LUZMARIA (test code = Test developed and LUZMARIA) characteristics determined by [facility] Laboratory Services. [facility] TOTAL BODY [id number] 10:32:49 Test Item Value Reference Range Interpretation Comments LDH BF (test code = 50 U/L 7567830554) UNSPUN BODY FLUID Light Yellow COLOR (test code = 0670761830) UNSPUN BODY FLUID Clear CLARITY (test code = 4647845615) SPUN BODY FLUID Light Yellow COLOR (test code = 0947273924) SPUN BODY FLUID Clear CLARITY (test code = 0653470357) Sediment (test code The sediment volume is = 5605084237) <0.1 mLs of the total fluid volume of 2.5 and its color is red. LUZMARIA (test code = Test developed and LUZMARIA) characteristics determined by [facility] Laboratory Services. [facility] CenterB[facility] FLUID DIRECT [id number] 10:11:38 Test Item Value Reference Range Interpretation Comments BF COLOR (test Light Yellow code = 7105108780) TURBIDITY (test Turbid code = 2276259126) BF WBC Count 177 See_Comment [Automated (test code = message] The 7571627662) system which generated this result transmitted reference range : /?L. The reference range was not used to interpret this result as normal/abnormal . BF RBC Count See_Comment [Automated (test code = message] The 6766165516) system which generated this result transmitted reference range : /?L. The reference range was not used to interpret this result as normal/abnormal . LUZMARIA (test code = The reference range LUZMARIA) and other method performance specifications have not been established for this body fluid. ?The test results must be integrated into the clinical context for interpretation. [facility] FLUID DIRECT [id number] 10:11:38 Test Item Value Reference Range Interpretation Comments BF COLOR (test Light Yellow code = 7296562860) TURBIDITY (test Turbid code = 2524784889) BF WBC Count 177 See_Comment [Automated (test code = message] The 6019330943) system which generated this result transmitted reference range : /?L. The reference range was not used to interpret this result as normal/abnormal . BF RBC Count See_Comment [Automated (test code = message] The 4520780174) system which generated this result transmitted reference range : /?L. The reference range was not used to interpret this result as normal/abnormal . LUZMARIA (test code = The reference range LUZMARIA) and other method performance specifications have not been established for this body fluid. ?The test results must be integrated into the clinical context for interpretation. [facility] FL[facility] DIRECT [id number] 10:11:38 Test Item Value Reference Range Interpretation Comments BF COLOR (test Light Yellow code = 2003640294) TURBIDITY (test Turbid code = 2047321225) BF WBC Count 177 See_Comment [Automated (test code = message] The 1701182095) system which generated this result transmitted reference range : /?L. The reference range was not used to interpret this result as normal/abnormal . BF RBC Count See_Comment [Automated (test code = message] The 5753374187) system which generated this result transmitted reference range : /?L. The reference range was not used to interpret this result as normal/abnormal . LUZMARIA (test code = The reference range LUZMARIA) and other method performance specifications have not been established for this body fluid. ?The test results must be integrated into the clinical context for interpretation. [facility] [id number] 17:56:18 Test Item Value Reference Range Interpretation Comments AFB Culture (test code = No acid-fast bacilli 543-9) isolated Auramine fluorescent No Acid-fast bacilli stain (test code = observed on smear 676-7) [facility] [id number] 17:56:18 Test Item Value Reference Range Interpretation Comments AFB Culture (test code = No acid-fast bacilli 543-9) isolated Auramine fluorescent No Acid-fast bacilli stain (test code = observed on smear 676-7) [facility] Packed RBC (in units), 1 Units 2023-05-15 17:13:13 Test Item Value Reference Range Interpretation Comments Cross Match Result Compatible (test code = 4409) ISBT Blood Type Code 6200 (test code = 159643) Unit Blood Type (test A Pos code = 4410) Unit Number (test [id number] code = 4411) Blood Expiration Date & Time (test code = 173550) Status Information Issued (test code = 4412) Product Red Blood Cells Identification (test code = 4413) Product Code (test [id number] Performed at [facility] code = 4414) Laboratory Services - [facility] Blood [address] [address]Ytky Free: [phone] A No. [id number] [facility] Packed RBC (in units), 1 Units 2023-05-15 17:13:13 Test Item Value Reference Range Interpretation Comments Cross Match Result Compatible (test code = 4409) ISBT Blood Type Code 6200 (test code = 841427) Unit Blood Type (test A Pos code = 4410) Unit Number (test [id number] code = 4411) Blood Expiration Date & Time (test code = 900632) Status Information Issued (test code = 4412) Product Red Blood Cells Identification (test code = 4413) Product Code (test [id number] Performed at [facility] code = 4414) Laboratory Services - [facility] Blood [address] s [address]Nfvy Free: [phone] A No. [id number] [facility] Packed RBC (in units), 1 Units 2023-05-15 17:13:13 Test Item Value Reference Range Interpretation Comments Cross Match Result Compatible (test code = 4409) ISBT Blood Type Code 6200 (test code = 684294) Unit Blood Type (test A Pos code = 4410) Unit Number (test [id number] code = 4411) Blood Expiration Date 712392404430 & Time (test code = 913692) Status Information Issued (test code = 4412) Product Red Blood Cells Identification (test code = 4413) Product Code (test R4274O72 Performed at [facility] code = 4414) Laboratory Services - [facility] Blood [address] [place] [address]Bgua Free: [phone] A No. [id number] [facility] Packed RBC (in units), 1 Units 2023-05-14 17:54:48 Test Item Value Reference Range Interpretation Comments Cross Match Result Compatible (test code = 4409) ISBT Blood Type Code 6200 (test code = 160032) Unit Blood Type (test A Pos code = 4410) Unit Number (test [id number] code = 4411) Blood Expiration Date 572228166553 & Time (test code = 174390) Status Information Issued (test code = 4412) Product Red Blood Cells Identification (test code = 4413) Product Code (test H0439H55 Performed at [facility] code = 4414) Laboratory Services - [facility] Blood [address] s [address]Uhpb Free: [phone] A No. [id number] [facility] Packed RBC (in units), 1 Units 2023-05-14 17:54:48 Test Item Value Reference Range Interpretation Comments Cross Match Result Compatible (test code = 4409) ISBT Blood Type Code 6200 (test code = 048213) Unit Blood Type (test A Pos code = 4410) Unit Number (test [id number] code = 4411) Blood Expiration Date & Time (test code = 266052) Status Information Issued (test code = 4412) Product Red Blood Cells Identification (test code = 4413) Product Code (test L3206I20 Performed at [facility] code = 4414) Laboratory Services - [facility] Blood [address] [address]Bhpf Free: [phone] A No. [id number] [facility] P[facility] (in units), 1 Units 2023-05-14 17:54:48 Test Item Value Reference Range Interpretation Comments Cross Match Result Compatible (test code = 4409) ISBT Blood Type Code 6200 (test code = 172126) Unit Blood Type (test A Pos code = 4410) Unit Number (test [id number] code = 4411) Blood Expiration Date 775468253018 & Time (test code = 922687) Status Information Issued (test code = 4412) Product Red Blood Cells Identification (test code = 4413) Product Code (test Z7022J76 Performed at [facility] code = 4414) Laboratory Services - [facility] Blood [address] [address]Tize Free: [phone] A No. [id number] [facility] WITH [id number] 17:28:31 Test Item Value Reference Range Interpretation Comments WBC (test code = 3.02 See_Comment L [Automated 6690-2) message] The sy stem which generated this result transmitted reference range : 4.20 - 10.70 10*3/?L. The reference range was not used to interpret this result as normal/abnormal . RBC (test code = 2.50 See_Comment L [Automated 789-8) message] The sy stem which generated this result transmitted reference range : 4.26 - 5.52 10*6/?L. The reference range was not used to interpret this result as normal/abnormal . HGB (test code = 6.0 g/dL 12.2-16.4 L 718-7) HCT (test code = 20.5 % 38.4-49.3 L 4544-3) MCV (test code = 82.0 fL 81.7-95.6 787-2) MCH (test code = 24.0 pg 26.1-32.7 L 785-6) MCHC (test code = 29.3 g/dL 31.2-35.0 L 786-4) RDW-SD (test code = 47.4 fL 38.5-51.6 71414-7) RDW-CV (test code = 15.7 % 12.1-15.4 H 788-0) PLT (test code = 124 See_Comment L [Automated 777-3) message] The sy stem which generated this result transmitted reference range : 150 - 328 10*3/ ?L. The reference r brianne was not used to interpret this result as normal/abnormal . MPV (test code = 9.0 fL 9.8-13.0 L 97349-7) NRBC/100 WBC (test 0.0 See_Comment [Automat ed code = 5660748971) message] The system which generated this result transmitted reference range : 0.0 - 10.0 /100 WBCs. The refer ence range was not u sed to interpret th is result as normal/abnormal . NRBC x10^3 (test code See_Comment [Auto mated = 5433130381) message] The s ystem which generated this result transmitted reference range : 10*3/?L. The reference range was not used to interpret this result as normal/abnormal . GRAN MAT (NEUT) % 70.3 % (test code = 770-8) IMM GRAN % (test code 0.30 % = 7819816292) LYMPH % (test code = 19.5 % 736-9) MONO % (test code = 6.6 % 5905-5) EOS % (test code = 2.3 % 713-8) BASO % (test code = 1.0 % 706-2) GRAN MAT x10^3(ANC) 2.12 10*3/uL 1.99-6.95 (test code = 0196229349) IMM GRAN x10^3 (test 0.00-0.06 code = 6970365423) LYMPH x10^3 (test code 0.59 10*3/uL 1.09-3.23 L = 731-0) MONO x10^3 (test code 0.20 10*3/uL 0.36-1.02 L = 742-7) EOS x10^3 (test code = 0.07 10*3/uL 0.06-0.53 711-2) BASO x10^3 (test code 0.03 10*3/uL 0.01-0.09 = 704-7) Lab Interpretation Abnormal (test code = 46921-5) [facility] METABOLIC PANEL (NA, K, CL, CO2, GLUCOSE, BUN, CREATININE, CA)2023-05-13 19:52:12 Test Item Value Reference Range Interpretation Comments NA (test code = 139 mmol/L 135-145 7008593512) K (test code = 4.1 mmol/L 3.5-5.0 0870854537) CL (test code = 114 mmol/L 98-108 H 6554199828) CO2 TOTAL (test code = 17 mmol/L 23-31 L 9175897906) AGAP (test code = 8 2-16 8833094947) BUN (test code = 28 mg/dL 7-23 H 1008479929) GLUCOSE (test code = 100 mg/dL 70-110 9501427622) CREATININE (test code = 0.85 mg/dL 0.60-1.25 2436799628) CALCIUM (test code = 7.9 mg/dL 8.6-10.6 L 3628805499) eGFR (test code = 90.7 mL/min/1.73m2 4425554161) LUZMARIA (test code = LUZMARIA) Association of [...] tests). Lab Interpretation Abnormal (test code = 36261-7) [facility] METABOLIC PANEL (NA, K, CL, CO2, GLUCOSE, BUN, CREATININE, CA)2023-05-13 19:52:12 Test Item Value Reference Range Interpretation Comments NA (test code = 139 mmol/L 135-145 0544618001) K (test code = 4.1 mmol/L 3.5-5.0 6962680883) CL (test code = 114 mmol/L 98-108 H 1296901424) CO2 TOTAL (test code = 17 mmol/L 23-31 L 9541195846) AGAP (test code = 8 2-16 6836876420) BUN (test code = 28 mg/dL 7-23 H 4635184821) GLUCOSE (test code = 100 mg/dL 70-110 9627146144) CREATININE (test code = 0.85 mg/dL 0.60-1.25 6388258309) CALCIUM (test code = 7.9 mg/dL 8.6-10.6 L 4883226018) eGFR (test code = 90.7 mL/min/1.73m2 7534619969) LUZMARIA (test code = LUZMARIA) Association of [...] tests). Lab Interpretation Abnormal (test code = 86629-9) [facility] METABOLIC PANEL (NA, K, CL, CO2, GLUCOSE, BUN, CREATININE, CA)2023-05-13 19:52:12 Test Item Value Reference Range Interpretation Comments NA (test code = 139 mmol/L 135-145 0943580538) K (test code = 4.1 mmol/L 3.5-5.0 7955181396) CL (test code = 114 mmol/L 98-108 H 0948657221) CO2 TOTAL (test code = 17 mmol/L 23-31 L 0764445895) AGAP (test code = 8 2-16 1827783994) BUN (test code = 28 mg/dL 7-23 H 8455558485) GLUCOSE (test code = 100 mg/dL 70-110 6151589739) CREATININE (test code = 0.85 mg/dL 0.60-1.25 9761034428) CALCIUM (test code = 7.9 mg/dL 8.6-10.6 L 5729190914) eGFR (test code = 90.7 mL/min/1.73m2 8062126184) LUZMARIA (test code = LUZMARIA) Association of [...] tests). Lab Interpretation Abnormal (test code = 90641-8) [facility] WITHOUT [id number] 19:24:09 Test Item Value Reference Range Interpretation Comments WBC (test code = 6690-2) 4.03 See_Comment L [A utomated message] The system [employer] generated this result transmit willow reference range : 4.20 - 10.70 10*3/?L. The reference range was not used to interpret this result as normal/abnormal . RBC (test code = 789-8) 2.79 See_Comment L [Au tomated message] The system [employer] generated this result transmit willow reference range : 4.26 - 5.52 10* 6/?L. The reference r brianne was not used to interpret this result as normal/abnormal . HGB (test code = 718-7) 6.8 g/dL 12.2-16.4 L HCT (test code = 4544-3) 23.0 % 38.4-49.3 L MCH (test code = 785-6) 24.4 pg 26.1-32.7 L MCV (test code = 787-2) 82.4 fL 81.7-95.6 MCHC (test code = 786-4) 29.6 g/dL 31.2-35.0 L PLT (test code = 777-3) 154 See_Comment [Au tomated message] The system [facility] generated this result transmit willow reference range : 150 - 328 10*3/?L. The reference range was not used to interpret this result as normal/abnormal . MPV (test code = 10.0 fL 9.8-13.0 85304-0) RDW-CV (test code = 15.9 % 12.1-15.4 H 788-0) RDW-SD (test code = 48.0 fL 38.5-51.6 28266-3) NRBC x10^3 (test code = See_Comment [Au tomated message] 3036183311) The system [facility] generated this result transmit willow reference range : 10*3/?L. The reference range was not used to interpret this result as normal/abnormal . NRBC/100 WBC (test code 0.0 See_Comment [Au tomated message] = 1031895851) The system [facility] generated this result transmit willow reference range : 0.0 - 10.0 /100 WBC s. The reference r brianne was not used to interpret this result as normal/abnormal . IPF % (test code = 7140548696) Lab Interpretation (test Abnormal code = 36563-8) [facility] WITHOUT [id number] 19:24:09 Test Item Value Reference Range Interpretation Comments WBC (test code = 6690-2) 4.03 See_Comment L [A utomated message] The system [facility] generated this result transmit willow reference range : 4.20 - 10.70 10*3/?L. The reference range was not used to interpret this result as normal/abnormal . RBC (test code = 789-8) 2.79 See_Comment L [Au tomated message] The system [facility] generated this result transmit willow reference range : 4.26 - 5.52 10* 6/?L. The reference r brianne was not used to interpret this result as normal/abnormal . HGB (test code = 718-7) 6.8 g/dL 12.2-16.4 L HCT (test code = 4544-3) 23.0 % 38.4-49.3 L MCH (test code = 785-6) 24.4 pg 26.1-32.7 L MCV (test code = 787-2) 82.4 fL 81.7-95.6 MCHC (test code = 786-4) 29.6 g/dL 31.2-35.0 L PLT (test code = 777-3) 154 See_Comment [Au tomated message] The system [employer] generated this result transmit willow reference range : 150 - 328 10*3/?L. The reference range was not used to interpret this result as normal/abnormal . MPV (test code = 10.0 fL 9.8-13.0 02685-0) RDW-CV (test code = 15.9 % 12.1-15.4 H 788-0) RDW-SD (test code = 48.0 fL 38.5-51.6 81007-1) NRBC x10^3 (test code = See_Comment [Au tomated message] 7488965017) The system [employer] generated this result transmit willow reference range : 10*3/?L. The reference range was not used to interpret this result as normal/abnormal . NRBC/100 WBC (test code 0.0 See_Comment [Au tomated message] = 9159227283) The system [facility] generated this result transmit willow reference range : 0.0 - 10.0 /100 WBC s. The reference r brianne was not used to interpret this result as normal/abnormal . IPF % (test code = 1790542216) Lab Interpretation (test Abnormal code = 66348-8) [facility] WITHOUT [id number] 19:24:09 Test Item Value Reference Range Interpretation Comments WBC (test code = 6690-2) 4.03 See_Comment L [A utomated message] The system [employer] generated this result transmit willow reference range : 4.20 - 10.70 10*3/?L. The reference range was not used to interpret this result as normal/abnormal . RBC (test code = 789-8) 2.79 See_Comment L [Au tomated message] The system [facility] generated this result transmit willow reference range : 4.26 - 5.52 10* 6/?L. The reference r brianne was not used to interpret this result as normal/abnormal . HGB (test code = 718-7) 6.8 g/dL 12.2-16.4 L HCT (test code = 4544-3) 23.0 % 38.4-49.3 L MCH (test code = 785-6) 24.4 pg 26.1-32.7 L MCV (test code = 787-2) 82.4 fL 81.7-95.6 MCHC (test code = 786-4) 29.6 g/dL 31.2-35.0 L PLT (test code = 777-3) 154 See_Comment [Au tomated message] The system [facility] generated this result transmit willow reference range : 150 - 328 10*3/?L. The reference range was not used to interpret this result as normal/abnormal . MPV (test code = 10.0 fL 9.8-13.0 09745-5) RDW-CV (test code = 15.9 % 12.1-15.4 H 788-0) RDW-SD (test code = 48.0 fL 38.5-51.6 21676-5) NRBC x10^3 (test code = See_Comment [Au tomated message] 3788458830) The system [employer] generated this result transmit willow reference range : 10*3/?L. The reference range was not used to interpret this result as normal/abnormal . NRBC/100 WBC (test code 0.0 See_Comment [Au tomated message] = 9350428839) The system [facility] generated this result transmit willow reference range : 0.0 - 10.0 /100 WBC s. The reference r brianne was not used to interpret this result as normal/abnormal . IPF % (test code = 2464213623) Lab Interpretation (test Abnormal code = 34376-5) [facility] WITHOUT [id number] 19:24:09 Test Item Value Reference Range Interpretation Comments WBC (test code = 6690-2) 4.03 See_Comment L [A utomated message] The system [facility] generated this result transmit willow reference range : 4.20 - 10.70 10*3/?L. The reference range was not used to interpret this result as normal/abnormal . RBC (test code = 789-8) 2.79 See_Comment L [Au tomated message] The system [facility] generated this result transmit willow reference range : 4.26 - 5.52 10* 6/?L. The reference r brianne was not used to interpret this result as normal/abnormal . HGB (test code = 718-7) 6.8 g/dL 12.2-16.4 L HCT (test code = 4544-3) 23.0 % 38.4-49.3 L MCH (test code = 785-6) 24.4 pg 26.1-32.7 L MCV (test code = 787-2) 82.4 fL 81.7-95.6 MCHC (test code = 786-4) 29.6 g/dL 31.2-35.0 L PLT (test code = 777-3) 154 See_Comment [Au tomated message] The system [facility] generated this result transmit willow reference range : 150 - 328 10*3/?L. The reference range was not used to interpret this result as normal/abnormal . MPV (test code = 10.0 fL 9.8-13.0 52603-9) RDW-CV (test code = 15.9 % 12.1-15.4 H 788-0) RDW-SD (test code = 48.0 fL 38.5-51.6 71680-9) NRBC x10^3 (test code = See_Comment [Au tomated message] 2501042705) The system [facility] generated this result transmit willow reference range : 10*3/?L. The reference range was not used to interpret this result as normal/abnormal . NRBC/100 WBC (test code 0.0 See_Comment [Au tomated message] = 2561824068) The system [facility] generated this result transmit willow reference range : 0.0 - 10.0 /100 WBC s. The reference r brianne was not used to interpret this result as normal/abnormal . IPF % (test code = 1218123765) Lab Interpretation (test Abnormal code = 96251-4) [facility] WITHOUT [id number] 19:24:09 Test Item Value Reference Range Interpretation Comments WBC (test code = 6690-2) 4.03 See_Comment L [A utomated message] The system [employer] generated this result transmit willow reference range : 4.20 - 10.70 10*3/?L. The reference range was not used to interpret this result as normal/abnormal . RBC (test code = 789-8) 2.79 See_Comment L [Au tomated message] The system [employer] generated this result transmit willow reference range : 4.26 - 5.52 10* 6/?L. The reference r brianne was not used to interpret this result as normal/abnormal . HGB (test code = 718-7) 6.8 g/dL 12.2-16.4 L HCT (test code = 4544-3) 23.0 % 38.4-49.3 L MCH (test code = 785-6) 24.4 pg 26.1-32.7 L MCV (test code = 787-2) 82.4 fL 81.7-95.6 MCHC (test code = 786-4) 29.6 g/dL 31.2-35.0 L PLT (test code = 777-3) 154 See_Comment [Au tomated message] The system [employer] generated this result transmit willow reference range : 150 - 328 10*3/?L. The reference range was not used to interpret this result as normal/abnormal . MPV (test code = 10.0 fL 9.8-13.0 31450-5) RDW-CV (test code = 15.9 % 12.1-15.4 H 788-0) RDW-SD (test code = 48.0 fL 38.5-51.6 44825-2) NRBC x10^3 (test code = See_Comment [Au tomated message] 7421009470) The system [employer] generated this result transmit willow reference range : 10*3/?L. The reference range was not used to interpret this result as normal/abnormal . NRBC/100 WBC (test code 0.0 See_Comment [Au tomated message] = 7472707861) The system [facility] generated this result transmit willow reference range : 0.0 - 10.0 /100 WBC s. The reference r brianne was not used to interpret this result as normal/abnormal . IPF % (test code = 5395684470) Lab Interpretation (test Abnormal code = 66190-6) [facility] [id number] 13:56:50 Test Item Value Reference Range Interpretation Comments ALBUMIN BF (test code 297.0 mg/dL = 3640635652) LUZMARIA (test code = LUZMARIA) Result interpreted relative to the serum concentration. ? [facility] [id number] 13:56:50 Test Item Value Reference Range Interpretation Comments ALBUMIN BF (test code 297.0 mg/dL = 2305427285) LUZMARIA (test code = LUZMARIA) Result interpreted relative to the serum concentration. ? [facility] [id number] 13:56:50 Test Item Value Reference Range Interpretation Comments ALBUMIN BF (test code 297.0 mg/dL = 1721736067) LUZMARIA (test code = LUZMARIA) Result interpreted relative to the serum concentration. ? [facility] Protein Body [id number] 11:39:26 Test Item Value Reference Range Interpretation Comments T.PROT BF (test 871.0 mg/dL code = 7592885987) UNSPUN BODY FLUID Light Yellow COLOR (test code = 8601687283) UNSPUN BODY FLUID Slightly Cloudy CLARITY (test code = 6501761763) SPUN BODY FLUID Light Yellow COLOR (test code = 6107178743) SPUN BODY FLUID Slightly Cloudy CLARITY (test code = 1626272900) Sediment (test code The sediment volume is = 1780249158) <0.1 mLs of the total fluid volume of 3 mLs and its color is red. LUZMARIA (test code = Test developed and LUMZARIA) characteristics determined by [facility] Laboratory Services. [facility] Protein Body [id number] 11:39:26 Test Item Value Reference Range Interpretation Comments T.PROT BF (test 871.0 mg/dL code = 5183500115) UNSPUN BODY FLUID Light Yellow COLOR (test code = 1057297692) UNSPUN BODY FLUID Slightly Cloudy CLARITY (test code = 0094586200) SPUN BODY FLUID Light Yellow COLOR (test code = 5256645028) SPUN BODY FLUID Slightly Cloudy CLARITY (test code = 2799176272) Sediment (test code The sediment volume is = 0986879344) <0.1 mLs of the total fluid volume of 3 mLs and its color is red. LUZMARIA (test code = Test developed and LUZMARIA) characteristics determined by [facility] Laboratory Services. [facility] [id number] 11:39:26 Test Item Value Reference Range Interpretation Comments T.PROT BF (test 871.0 mg/dL code = 2130400634) UNSPUN BODY FLUID Light Yellow COLOR (test code = 4450916777) UNSPUN BODY FLUID Slightly Cloudy CLARITY (test code = 4326325707) SPUN BODY FLUID Light Yellow COLOR (test code = 3809716422) SPUN BODY FLUID Slightly Cloudy CLARITY (test code = 4919350880) Sediment (test code The sediment volume is = 7200149760) <0.1 mLs of the total fluid volume of 3 mLs and its color is red. LUZMARIA (test code = Test developed and LUZMARIA) characteristics determined by [facility] Laboratory Services. [facility] MANUAL [id number] 11:18:46 Test Item Value Reference Range Interpretation Comments BF SEGS% (test code = 14 % 72813-3) BF LYMPHS% (test code = 17 % 78353-6) BF MACROPHAGE% (test 68 % Erythro phages observed. code = 42318-9) BF MESOS% (test code = 1 % 68644-8) BF #CELLS CNTD (test 100 cells/uL code = 2114223048) [facility] [id number] 11:18:46 Test Item Value Reference Range Interpretation Comments BF SEGS% (test code = 14 % 32655-4) BF LYMPHS% (test code = 17 % 29696-3) BF MACROPHAGE% (test 68 % Erythro phages observed. code = 72698-8) BF MESOS% (test code = 1 % 42425-7) BF #CELLS CNTD (test 100 cells/uL code = 0984577198) [facility] FLUID MANUAL [id number] 11:18:46 Test Item Value Reference Range Interpretation Comments BF SEGS% (test code = 14 % 20820-0) BF LYMPHS% (test code = 17 % 14337-1) BF MACROPHAGE% (test 68 % Erythro phages observed. code = 13466-9) BF MESOS% (test code = 1 % 70338-0) BF #CELLS CNTD (test 100 cells/uL code = 5131143591) [facility] DIRECT [id number] 11:05:26 Test Item Value Reference Range Interpretation Comments BF COLOR (test Light Yellow code = 1427039935) TURBIDITY (test Slightly Turbid code = 5521185022) BF WBC Count 146 See_Comment [Automated (test code = message] The 9231500752) system which generated this result transmitted reference range : /?L. The reference range was not used to interpret this result as normal/abnormal . BF RBC Count See_Comment [Automated (test code = message] The 4350681139) system which generated this result transmitted reference range : /?L. The reference range was not used to interpret this result as normal/abnormal . LUZMARIA (test code = The reference range LUZMARIA) and other method performance specifications have not been established for this body fluid. ?The test results must be integrated into the clinical context for interpretation. [facility] FLUID DIRECT [id number] 11:05:26 Test Item Value Reference Range Interpretation Comments BF COLOR (test Light Yellow code = 7840522821) TURBIDITY (test Slightly Turbid code = 0474328424) BF WBC Count 146 See_Comment [Automated (test code = message] The 7537541286) system which generated this result transmitted reference range : /?L. The reference range was not used to interpret this result as normal/abnormal . BF RBC Count See_Comment [Automated (test code = message] The 6693602956) system which generated this result transmitted reference range : /?L. The reference range was not used to interpret this result as normal/abnormal . LUZMARIA (test code = The reference range LUZMARIA) and other method performance specifications have not been established for this body fluid. ?The test results must be integrated into the clinical context for interpretation. [facility] FLUID DIRECT [id number] 11:05:26 Test Item Value Reference Range Interpretation Comments BF COLOR (test Light Yellow code = 2424243312) TURBIDITY (test Slightly Turbid code = 9627447874) BF WBC Count 146 See_Comment [Automated (test code = message] The [id number]) system which generated this result transmitted reference range : /?L. The reference range was not used to interpret this result as normal/abnormal . BF RBC Count See_Comment [Automated (test code = message] The [id number]) system which generated this result transmitted reference range : /?L. The reference range was not used to interpret this result as normal/abnormal . LUZMARIA (test code = The reference range LUZMARIA) and other method performance specifications have not been established for this body fluid. ?The test results must be integrated into the clinical context for interpretation. [facility] [id number] 14:27:31 Test Item Value Reference Range Interpretation Comments FUNGUS CULTURE (test code = No fungi isolated 580-1) Lab Interpretation (test Normal code = 97225-6) [facility]) [id number] 14:27:31 Test Item Value Reference Range Interpretation Comments FUNGUS CULTURE (test code = No fungi isolated 580-1) Lab Interpretation (test Normal code = 71837-9) [facility]) [id number] 14:27:31 Test Item Value Reference Range Interpretation Comments FUNGUS CULTURE (test code = No fungi isolated 580-1) Lab Interpretation (test Normal code = 21919-5) [facility]) [id number] 14:27:31 Test Item Value Reference Range Interpretation Comments FUNGUS CULTURE (test code = No fungi isolated 580-1) Lab Interpretation (test Normal code = 22899-4) [facility] Center[facility] Fl[facility] Culture (Sterile)2023-04-05 12:06:00 Test Item Value Reference Range Interpretation Comments BODY FLUID CULT No organisms isolated (test code = 611-4) Gram stain (test Few PMNs or Mononuclear code = 664-3) cells observed [facility] (Sterile)2023-04-05 12:06:00 Test Item Value Reference Range Interpretation Comments BODY FLUID CULT No organisms isolated (test code = 611-4) Gram stain (test Few PMNs or Mononuclear code = 664-3) cells observed [facility] Fluid Culture (Sterile)2023-04-05 12:06:00 Test Item Value Reference Range Interpretation Comments BODY FLUID CULT No organisms isolated (test code = 611-4) Gram stain (test Few PMNs or Mononuclear code = 664-3) cells observed [facility] (Sterile)2023-04-05 12:06:00 Test Item Value Reference Range Interpretation Comments BODY FLUID CULT No organisms isolated (test code = 611-4) Gram stain (test Few PMNs or Mononuclear code = 664-3) cells observed [facility] CenterTotal Protein Body [id number] 20:04:41 Test Item Value Reference Range Interpretation Comments T.PROT BF (test 3300.0 mg/dL code = 0862068644) UNSPUN BODY FLUID Light Yellow COLOR (test code = 1887825211) UNSPUN BODY FLUID Clear CLARITY (test code = 2194491602) SPUN BODY FLUID Light Yellow COLOR (test code = 8246742492) SPUN BODY FLUID Clear CLARITY (test code = 5227901181) Sediment (test code The sediment volume is = 8541664771) <0.01 mLs of the total fluid volume of .75 mls and its color is white and red. LUZMARIA (test code = Test developed and LUZMARIA) characteristics determined by [facility] Laboratory Services. [facility] CenterGlucose Body [id number] 20:04:36 Test Item Value Reference Range Interpretation Comments GLUCOSE BF (test 108 mg/dL code = 1137485218) UNSPUN BODY FLUID Light Yellow COLOR (test code = 0359804155) UNSPUN BODY FLUID Clear CLARITY (test code = 7556807247) SPUN BODY FLUID Light Yellow COLOR (test code = 5576429015) SPUN BODY FLUID Clear CLARITY (test code = 8626974250) Sediment (test code The sediment volume is = 1924572061) <0.01 mLs of the total fluid volume of .75 mls and its color is white and red. LUZMARIA (test code = Test developed and LUZMARIA) characteristics determined by [facility] Laboratory Services. [facility] CenterGlucose Body [id number] 20:04:36 Test Item Value Reference Range Interpretation Comments GLUCOSE BF (test 108 mg/dL code = 7969569911) UNSPUN BODY FLUID Light Yellow COLOR (test code = 4140467996) UNSPUN BODY FLUID Clear CLARITY (test code = 3515323397) SPUN BODY FLUID Light Yellow COLOR (test code = 0018620492) SPUN BODY FLUID Clear CLARITY (test code = 0737970997) Sediment (test code The sediment volume is = 2702520568) <0.01 mLs of the total fluid volume of .75 mls and its color is white and red. LUZMARIA (test code = Test developed and LUZMARIA) characteristics determined by [facility] Laboratory Services. [facility] Body [id number] 20:04:36 Test Item Value Reference Range Interpretation Comments GLUCOSE BF (test 108 mg/dL code = 8504950357) UNSPUN BODY FLUID Light Yellow COLOR (test code = 8632528201) UNSPUN BODY FLUID Clear CLARITY (test code = 1045310884) SPUN BODY FLUID Light Yellow COLOR (test code = 0133274776) SPUN BODY FLUID Clear CLARITY (test code = 4550229035) Sediment (test code The sediment volume is = 5353356480) <0.01 mLs of the total fluid volume of .75 mls and its color is white and red. LUZMARIA (test code = Test developed and LUZMARIA) characteristics determined by [facility] Laboratory Services. [facility] Body [id number] 20:04:36 Test Item Value Reference Range Interpretation Comments GLUCOSE BF (test 108 mg/dL code = 3590855866) UNSPUN BODY FLUID Light Yellow COLOR (test code = 0052830886) UNSPUN BODY FLUID Clear CLARITY (test code = 5456518503) SPUN BODY FLUID Light Yellow COLOR (test code = 6624214115) SPUN BODY FLUID Clear CLARITY (test code = 0561687687) Sediment (test code The sediment volume is = 4562746485) <0.01 mLs of the total fluid volume of .75 mls and its color is white and red. LUZMARIA (test code = Test developed and LUZMARIA) characteristics determined by [facility] Laboratory Services. [facility] Body [id number] 20:04:36 Test Item Value Reference Range Interpretation Comments GLUCOSE BF (test 108 mg/dL code = 6765643041) UNSPUN BODY FLUID Light Yellow COLOR (test code = 3109464614) UNSPUN BODY FLUID Clear CLARITY (test code = 1542832404) SPUN BODY FLUID Light Yellow COLOR (test code = 9834180675) SPUN BODY FLUID Clear CLARITY (test code = 9347871256) Sediment (test code The sediment volume is = 2679931677) <0.01 mLs of the total fluid volume of .75 mls and its color is white and red. LUZMARIA (test code = Test developed and LUZMARIA) characteristics determined by [facility] Laboratory Services. [facility] Fluid Crystals [id number] 19:18:34 Test Item Value Reference Range Interpretation Comments JT FL TRENT (test Monosodium Urate No Crystals Extrace llular MSU code = crystals 5/hpf 0959591717) UNSPUN BODY Light Yellow FLUID COLOR (test code = 3132825396) UNSPUN BODY Clear FLUID CLARITY (test code = 3853688576) SPUN BODY FLUID Light Yellow COLOR (test code = 4030374167) SPUN BODY FLUID Clear CLARITY (test code = 5251970049) Sediment (test The sediment code = volume is <0.01 0956072948) mLs of the total fluid volume of .75 mls and its color is white and red. [facility] Fluid Crystals [id number] 19:18:34 Test Item Value Reference Range Interpretation Comments JT FL TRENT (test Monosodium Urate No Crystals Extrace llular MSU code = crystals 5/hpf 3157246300) UNSPUN BODY Light Yellow FLUID COLOR (test code = 9938716478) UNSPUN BODY Clear FLUID CLARITY (test code = 2642176462) SPUN BODY FLUID Light Yellow COLOR (test code = 4975366829) SPUN BODY FLUID Clear CLARITY (test code = 6715344695) Sediment (test The sediment code = volume is <0.01 3133522555) mLs of the total fluid volume of .75 mls and its color is white and red. [facility] Fluid Crystals [id number] 19:18:34 Test Item Value Reference Range Interpretation Comments JT FL TRENT (test Monosodium Urate No Crystals Extrace llular MSU code = crystals 5/hpf 9866718260) UNSPUN BODY Light Yellow FLUID COLOR (test code = 6083877879) UNSPUN BODY Clear FLUID CLARITY (test code = 8821453949) SPUN BODY FLUID Light Yellow COLOR (test code = 1687506079) SPUN BODY FLUID Clear CLARITY (test code = 0516775729) Sediment (test The sediment code = volume is <0.01 3643572680) mLs of the total fluid volume of .75 mls and its color is white and red. [facility] Fluid Crystals [id number] 19:18:34 Test Item Value Reference Range Interpretation Comments JT FL TRENT (test Monosodium Urate No Crystals Extrace llular MSU code = crystals 5/hpf 5749846509) UNSPUN BODY Light Yellow FLUID COLOR (test code = 8820461220) UNSPUN BODY Clear FLUID CLARITY (test code = 5054408542) SPUN BODY FLUID Light Yellow COLOR (test code = 0378905108) SPUN BODY FLUID Clear CLARITY (test code = 5272863244) Sediment (test The sediment code = volume is <0.01 9763444447) mLs of the total fluid volume of .75 mls and its color is white and red. [facility] Fluid Crystals [id number] 19:18:34 Test Item Value Reference Range Interpretation Comments JT FL TRENT (test Monosodium Urate No Crystals Extrace llular MSU code = crystals 5/hpf 5013580596) UNSPUN BODY Light Yellow FLUID COLOR (test code = 4480277912) UNSPUN BODY Clear FLUID CLARITY (test code = 5663648472) SPUN BODY FLUID Light Yellow COLOR (test code = 7937797073) SPUN BODY FLUID Clear CLARITY (test code = 7924981593) Sediment (test The sediment code = volume is <0.01 1770613585) mLs of the total fluid volume of .75 mls and its color is white and red. [facility] FLUID MANUAL [id number] 19:15:43 Test Item Value Reference Range Interpretation Comments BF SEGS% (test code = 56429-6) 86 % 0-25 H BF LYMPHS% (test code = 10795-6) 1 % BF MACROPHAGE% (test code = 28729-0) 13 % BF #CELLS CNTD (test code = 100 cells/uL 6991200562) Lab Interpretation (test code = Abnormal 15795-6) [facility] FLUID DIRECT [id number] 19:14:51 Test Item Value Reference Range Interpretation Comments BF COLOR (test code Light Yellow = 6737715814) TURBIDITY (test code Turbid = 3782794097) BF WBC Count (test 79873 See_Comment [Automat ed message] code = 6399356996) The [employer] which generated this result transmitted ref erence range: 0 - 150 /?L. The reference r brianne was not used to interpret this result as normal/abnor mal. BF RBC Count (test See_Comment [Automat ed message] code = 2911825466) The syste m which generated this result transmitted ref erence range: /?L. The reference range was not used to int erpret this result as normal/abnormal . [facility] CenterPrepare Packed RBC (in units), 1 Units 2023-03-29 14:06:37 Test Item Value Reference Range Interpretation Comments Cross Match Result Compatible (test code = 4409) ISBT Blood Type Code 6200 (test code = 537170) Unit Blood Type (test A Pos code = 4410) Unit Number (test [id number] code = 4411) Blood Expiration Date & Time (test code = 603411) Status Information Issued (test code = 4412) Product Red Blood Cells Identification (test code = 4413) Product Code (test C8445B85 Performed at [facility] code = 4414) Laboratory Services - [facility] Blood [address] [place] [address]Ukbi Free: [phone] A No. [id number] [facility] CenterTransthoracic echo (TTE)2023-03-28 20:00:25 Test Item Value Reference Range Interpretation Comments Height (test code = 67 in 7176067322) Weight (test code = 189 lbs 5754370789) Systolic BP (test code 146 mmHg = 1877656150) Diastolic BP (test code 72 mmHg = 1910716853) Heart Rate (test code = 82 bpm 4280307363) BSA (test code = 1.97 m2 0061240457) LVOT diameter (test 2.31 cm code = 2818750634) LVOT area (test code = 4.20 cm2 5497140129) Ao root diam (test code 2.70 cm = 6254749820) Aortic root (test code 2.7 cm = 2386533945) Ao root annulus (test 2.7 cm code = 7435249652) LA size (test code = 4.6 cm 4043746250) LVIDD (test code = 4.90 cm 3005775237) Left Ventricular End 112.7 mL Diastolic Volume by Teichholz Method (test code = 7562509) IVS (test code = 1.20 cm 6691778114) Interventricular Septum 1.20 cm Diastolic Thickness by 2D (test code = 4017555) LVPWD (test code = 1.20 cm 2921273249) PW (test code = 1.20 cm 0.6-1.9 4196907232) EF(Teich) (test code = 51.20 % 9735901916) LVIDS (test code = 3.60 cm 7036734651) Left Ventricular End 54.9 mL Systolic Volume by Teichholz Method (test code = 8469016) FS (test code = 26 % 9523629193) EF - 2D (test code = 51.20 % 56208099) E wave decelartion time 0.22 s (test code = 0791219570) MV Peak E Kylee (test 111.0 cm/s code = 2862999130) MV Peak A Kylee (test 71.7 cm/s code = 6259871414) E/A ratio (test code = 1.55 ratio 2543287742) MV Prop V (test code = 30.40 cm/s 2832108558) LAV(MOD-sp4) (test code 78.40 mL = 7372108789) Tapse (test code = 2.9 cm 2965409229) LVOT stroke volume 66.30 cm3 (test code = 5194602100) LVOT peak kylee (test 82.6 cm/s code = 3052058014) LVOT mn grad (test code 1.5 mmHg = 5772094035) AV LVOT peak gradient 2.7 mmHg (test code = 2854939225) LVOT peak VTI (test 15.8 cm code = 8246284607) LV V1 mean (test code = 57.40 cm/s 5881516007) LA Volume Index (BP) 43.2 mL/m2 (test code = 5327293835) LA volume (BP) (test 85.3 mL code = 4359526511) LAV(MOD-sp2) (test code 75.20 mL = 7894356593) Radiology Study observation (narrative) (test code = 68225-7) LUZMARIA (test code = LUZMARIA) ?Left?Ventricle: Left ventricle is moderately dilated. Dilated by LV volume index calculation of 93 ml/m2. ?Mildly increased wall thickness. Ventricular mass is normal. There is concentric remodeling. Normal wall motion. No regional wall motion abnormalities. Normal systolic function with a visually estimated EF of 55 - 60%. Normal diastolic function. ?Right?Ventricle: Right ventricle size is normal. Normal systolic function. ?Left?Atrium: Left atrium is moderately dilated. Left atrium volume index is 43.2 mL/m2. Left VentricleLeft ventricle is moderately dilated. Dilated by LV volume index calculation of 93 ml/m2. Mildly increased wall thickness. Ventricular mass is normal. There is concentric remodeling. Normal wall motion. No regional wall motion abnormalities. Normal systolic function with a visually estimated EF of 55 - 60%. Normal diastolic function.Right VentricleRight ventricle size is normal. Normal systolic function.Left AtriumLeft atrium is moderately dilated. Left atrium volume index is 43.2 mL/m2.Right AtriumRight atrium size is normal.IVC/SVCIVC diameter is less than or equal to 21 mm and decreases greater than 50% during inspiration; therefore the estimated right atrial pressure is normal (~0-5 mmHg).Mitral ValveMitral valve structure is normal. Trace transvalvular regurgitation. No stenosis.Tricuspid ValveTricuspid valve structure is normal. Trace transvalvular regurgitation. Insufficient tricuspid regurgitation jet to estimate RVSP .Aortic ValveTricuspid. Mildly thickened right cusp. Trace transvalvular regurgitation. No hemodynamically significant .Pulmonic ValveNot well visualized. Trace transvalvular regurgitation. No stenosis.Ascending AortaNormal sized sinus of Valsalva.PericardiumNo pericardial effusion.Study DetailsStudy quality was good. A complete echocardiogram was performed using 2D, color flow Doppler and spectral Doppler. 5 mL of Lumason ultrasound enhancing agent used. [facility] CenterGB AB, IGG (IFA)2023-03-27 23:56:00 Test Item Value Reference Range Interpretation Comments GBM IgG(IFA) Negative Negative INTERPRETIVE IN FORMATION: (test code = ?GBM Ab, IgG (I FA) When 18816-8) present, IgG an tibody to glomerular base ment membrane (GBM) antigen d etected by either indirect fluorescent antibody (IFA) or multiplex bead assay help s support a diagnosis of Go odpasture syndrome. ?Lee malissa, the combined result of both assays performe d during initial evaluat ion improves the diagnostic sensitivity for disease. A positive result in one o r both assays should be confi rmed by renal biopsy. This te st was developed and i ts performance johann racteristics determined by [facility]. I t has not been cleared or approved by the [place] Food and Drug Administration. This test was performed i n a CLIA certified labor atory and is intended for cl inical purposes.Perfor med By: [address] [address]Apxrfzmrro Director: Samir prather MD, PhD [facility] CenterGB AB, IGG (IFA)2023-03-27 23:56:00 Test Item Value Reference Range Interpretation Comments GBM IgG(IFA) Negative Negative INTERPRETIVE IN FORMATION: (test code = ?GBM Ab, IgG (I FA) When 57181-4) present, IgG an tibody to glomerular base ment membrane (GBM) antigen d etected by either indirect fluorescent antibody (IFA) or multiplex bead assay help s support a diagnosis of Go odpasture syndrome. ?Lee malissa, the combined result of both assays performe d during initial evaluat ion improves the diagnostic sensitivity for disease. A positive result in one o r both assays should be confi rmed by renal biopsy. This te st was developed and i ts performance johann racteristics determined by [facility]. I t has not been cleared or approved by the [place] Food and Drug Administration. This test was performed i n a CLIA certified labor atory and is intended for cl inical purposes.Perfor med By: [facility] [address] [place] [address]Agcvzhawpu Director: Samir prather MD, PhD [facility] CenterGB AB, IGG (IFA)2023-03-27 23:56:00 Test Item Value Reference Range Interpretation Comments GBM IgG(IFA) Negative Negative INTERPRETIVE IN FORMATION: (test code = ?GBM Ab, IgG (I FA) When 12317-3) present, IgG an tibody to glomerular base ment membrane (GBM) antigen d etected by either indirect fluorescent antibody (IFA) or multiplex bead assay help s support a diagnosis of Go odpasture syndrome. ?Lee malissa, the combined result of both assays performe d during initial evaluat ion improves the diagnostic sensitivity for disease. A positive result in one o r both assays should be confi rmed by renal biopsy. This te st was developed and i ts performance johann racteristics determined by [facility]. I t has not been cleared or approved by the [place] Food and Drug Administration. This test was performed i n a CLIA certified labor atory and is intended for cl inical purposes.Perfor med By: [facility] [place], [place] [address]Ngvjztkppn Director: Samir prather MD, PhD [facility] AB, IGG (MIKAELA)2023-03-27 17:50:28 Test Item Value Reference Range Interpretation Comments GBM IgG(BRANDON) (test 0 AU/mL 0-19 INTERPRET PATEL INFORMATION: code = 30704-5) GBM Ab, IgG by Multiplex Bead ?Assay ?19 AU /mL or Less ......... Negat patel ?20-25 AU/mL ......... ..... Equivocal ?26 A U/mL or Greater ...... Positive The presence of ant i-glomerular basement membra ne (GBM) antibodies by M ultiplex Bead Assay may aid in the diagnosis of Go odpasture syndrome. False positive results may occ ur due to reactivity agai nst other chains of type IV collagen. If Multiplex Be ad Assay is negative but th ere is a strong suspicio n for disease, renal biopsy may be indicated. A renal biopsy may also be essential in ?s uspected Goodpasture dis ease with renal involveme nt, allowing diagnostic conf irmation and assessment of r enal prognosis.Perfo rmed By: [facility] [address] [place], [place] [address]Wgdozwu ory Director: Ravindra Mcleod MD, PhD [facility] AB, IGG (MIKAELA)2023-03-27 17:50:28 Test Item Value Reference Range Interpretation Comments GBM IgG(BRANDON) (test 0 AU/mL 0-19 INTERPRET PATEL INFORMATION: code = 62393-8) GBM Ab, IgG by Multiplex Bead ?Assay ?19 AU /mL or Less ......... Negat patel ?20-25 AU/mL ......... ..... Equivocal ?26 A U/mL or Greater ...... Positive The presence of ant i-glomerular basement membra ne (GBM) antibodies by M ultiplex Bead Assay may aid in the diagnosis of Go odpasture syndrome. False positive results may occ ur due to reactivity agai nst other chains of type IV collagen. If Multiplex Be ad Assay is negative but th ere is a strong suspicio n for disease, renal biopsy may be indicated. A renal biopsy may also be essential in ?s uspected Goodpasture dis ease with renal involveme nt, allowing diagnostic conf irmation and assessment of r enal prognosis.Perfo rmed By: [facility] Laboratori [address]Ar[address]ian [place], [place] [address]Hrfqqkn or Director: Ravindra Mcleod MD, PhD [facility] CenterGBM AB, IGG (MIKAELA)2023-03-27 17:50:28 Test Item Value Reference Range Interpretation Comments GBM IgG(BRANDON) (test 0 AU/mL 0-19 INTERPRET PATEL INFORMATION: code = 19311-6) GBM Ab, IgG by Multiplex Bead ?Assay ?19 AU /mL or Less ......... Negat patel ?20-25 AU/mL ......... ..... Equivocal ?26 A U/mL or Greater ...... Positive The presence of ant i-glomerular basement membra ne (GBM) antibodies by M ultiplex Bead Assay may aid in the diagnosis of Go odpasture syndrome. False positive results may occ ur due to reactivity agai nst other chains of type IV collagen. If Multiplex Be ad Assay is negative but th ere is a strong suspicio n for disease, renal biopsy may be indicated. A renal biopsy may also be essential in ?s uspected Goodpasture dis ease with renal involveme nt, allowing diagnostic conf irmation and assessment of r enal prognosis.Perfo rmed By: [facility] [address] [place], [place] [address]Rrickku or Director: Ravindra Mcleod MD, PhD [facility] Quant. FLC with [id number] 16:31:49 Test Item Value Reference Range Interpretation Comments Talihina Qnt Free Light 156.01 mg/L 3.30-19.40 H INTERPR ETIVE Chains (test code = INFORMAT ION: Talihina 21807-2) Qnt Free Light Chains Undetect ed antigen excess is a rare event but cannot be exclu ded. Free light yuridia n results should always be interpreted in conjunction wit h other clinical and laboratory find ings. Lambda Qnt Free Light 105.53 mg/L 5.71-26.30 H INTERP RETIVE Chains (test code = INFORMAT ION: Lambda 85296-5) Qnt Free Light Chains Undetect ed antigen excess is a rare event but cannot be exclu ded. Free light yuridia n results should always be interpreted in conjunction wit h other clinical and laboratory find ings. Talihina/Lambda Free 1.48 0.26-1.65 Performed By: [facility] (test code = 09184-4) [place], [place] [address]Laboratory Director: Ravindra Mcleod MD, PhD Lab Interpretation Abnormal (test code = 64302-2) [facility] CenterKappa-Lambda Quant. FLC with [id number] 16:31:49 Test Item Value Reference Range Interpretation Comments Talihina Qnt Free Light 156.01 mg/L 3.30-19.40 H INTERPR ETIVE Chains (test code = INFORMAT ION: Talihina 25254-4) Qnt Free Light Chains Undetect ed antigen excess is a rare event but cannot be exclu ded. Free light yuridia n results should always be interpreted in conjunction wit h other clinical and laboratory find ings. Lambda Qnt Free Light 105.53 mg/L 5.71-26.30 H INTERP RETIVE Chains (test code = INFORMAT ION: Lambda 22604-4) Qnt Free Light Chains Undetect ed antigen excess is a rare event but cannot be exclu ded. Free light yuridia n results should always be interpreted in conjunction wit h other clinical and laboratory find ings. Talihina/Lambda Free 1.48 0.26-1.65 Performed By: [employer] [facility] (test code = 17852-9) [place] [id number] Director: Ravindra Mcleod MD, PhD Lab Interpretation Abnormal (test code = 22258-6) [facility] Center[facility]Lambda Quant. [facility] with [id number] 16:31:49 Test Item Value Reference Range Interpretation Comments Talihina Qnt Free Light 156.01 mg/L 3.30-19.40 H INTERPR ETIVE Chains (test code = INFORMAT ION: Talihina 73536-5) Qnt Free Light Chains Undetect ed antigen excess is a rare event but cannot be exclu ded. Free light yuridia n results should always be interpreted in conjunction wit h other clinical and laboratory find ings. Lambda Qnt Free Light 105.53 mg/L 5.71-26.30 H INTERP RETIVE Chains (test code = INFORMAT ION: Lambda 33567-0) Qnt Free Light Chains Undetect ed antigen excess is a rare event but cannot be exclu ded. Free light yuridia n results should always be interpreted in conjunction wit h other clinical and laboratory find ings. Talihina/Lambda Free 1.48 0.26-1.65 Performed By: [employer] [facility] es500 (test code = 09530-1) [place], [place] [address]Iunieryuoq Director: Ravindra Mcleod MD, PhD Lab Interpretation Abnormal (test code = 93545-6) [facility] CenterCBC WITH [id number] 14:53:28 Test Item Value Reference Range Interpretation Comments WBC (test code = 6.10 See_Comment [Automated 2790-2) message] The sy stem which generated this result transmitted reference range : 4.20 - 10.70 10*3/?L. The reference range was not used to interpret this result as normal/abnormal . RBC (test code = 3.27 See_Comment L [Automated 889-8) message] The sy stem which generated this result transmitted reference range : 4.26 - 5.52 10*6/?L. The reference range was not used to interpret this result as normal/abnormal . HGB (test code = 8.0 g/dL 12.2-16.4 L 718-7) HCT (test code = 26.1 % 38.4-49.3 L 4544-3) MCV (test code = 79.8 fL 81.7-95.6 L 787-2) MCH (test code = 24.5 pg 26.1-32.7 L 785-6) MCHC (test code = 30.7 g/dL 31.2-35.0 L 786-4) RDW-SD (test code = 42.8 fL 38.5-51.6 80819-2) RDW-CV (test code = 14.7 % 12.1-15.4 788-0) PLT (test code = 185 See_Comment [Automated 777-3) message] The sy stem which generated this result transmitted reference range : 150 - 328 10*3/ ?L. The reference r brianne was not used to interpret this result as normal/abnormal . MPV (test code = 10.9 fL 9.8-13.0 59858-7) NRBC/100 WBC (test 0.0 See_Comment [Automat ed code = 5519903273) message] The system which generated this result transmitted reference range : 0.0 - 10.0 /100 WBCs. The refer ence range was not u sed to interpret th is result as normal/abnormal . NRBC x10^3 (test code See_Comment [Auto mated = 2310970420) message] The s ystem which generated this result transmitted reference range : 10*3/?L. The reference range was not used to interpret this result as normal/abnormal . GRAN MAT (NEUT) % 79.5 % (test code = 770-8) IMM GRAN % (test code 0.50 % = 8279954803) LYMPH % (test code = 9.2 % 736-9) MONO % (test code = 8.5 % 5905-5) EOS % (test code = 2.0 % 713-8) BASO % (test code = 0.3 % 706-2) GRAN MAT x10^3(ANC) 4.85 10*3/uL 1.99-6.95 (test code = 0418741879) IMM GRAN x10^3 (test 0.03 10*3/uL 0.00-0.06 code = 2500805634) LYMPH x10^3 (test code 0.56 10*3/uL 1.09-3.23 L = 731-0) MONO x10^3 (test code 0.52 10*3/uL 0.36-1.02 = 742-7) EOS x10^3 (test code = 0.12 10*3/uL 0.06-0.53 711-2) BASO x10^3 (test code 0.01-0.09 = 704-7) Lab Interpretation Abnormal (test code = 03063-5) [facility] WITH [id number] 08:34:38 Test Item Value Reference Range Interpretation Comments WBC (test code = 4.55 See_Comment [Automated 6690-2) message] The sy stem which generated this result transmitted reference range : 4.20 - 10.70 10*3/?L. The reference range was not used to interpret this result as normal/abnormal . RBC (test code = 2.68 See_Comment L [Automated 789-8) message] The sy stem which generated this result transmitted reference range : 4.26 - 5.52 10*6/?L. The reference range was not used to interpret this result as normal/abnormal . HGB (test code = 6.6 g/dL 12.2-16.4 L 718-7) HCT (test code = 20.9 % 38.4-49.3 L 4544-3) MCV (test code = 78.0 fL 81.7-95.6 L 787-2) MCH (test code = 24.6 pg 26.1-32.7 L 785-6) MCHC (test code = 31.6 g/dL 31.2-35.0 786-4) RDW-SD (test code = 41.9 fL 38.5-51.6 49940-6) RDW-CV (test code = 14.7 % 12.1-15.4 788-0) PLT (test code = 130 See_Comment L [Automated 777-3) message] The sy stem which generated this result transmitted reference range : 150 - 328 10*3/ ?L. The reference r brianne was not used to interpret this result as normal/abnormal . MPV (test code = 9.5 fL 9.8-13.0 L 32933-0) NRBC/100 WBC (test 0.0 See_Comment [Automat ed code = 8684269482) message] The system which generated this result transmitted reference range : 0.0 - 10.0 /100 WBCs. The refer ence range was not u sed to interpret th is result as normal/abnormal . NRBC x10^3 (test code See_Comment [Auto mated = 9270843578) message] The s ystem which generated this result transmitted reference range : 10*3/?L. The reference range was not used to interpret this result as normal/abnormal . GRAN MAT (NEUT) % 80.9 % (test code = 770-8) IMM GRAN % (test code 0.40 % = 4797376835) LYMPH % (test code = 10.1 % 736-9) MONO % (test code = 6.4 % 5905-5) EOS % (test code = 1.5 % 713-8) BASO % (test code = 0.7 % 706-2) GRAN MAT x10^3(ANC) 3.68 10*3/uL 1.99-6.95 (test code = 4722677356) IMM GRAN x10^3 (test 0.00-0.06 code = 7561033855) LYMPH x10^3 (test code 0.46 10*3/uL 1.09-3.23 L = 731-0) MONO x10^3 (test code 0.29 10*3/uL 0.36-1.02 L = 742-7) EOS x10^3 (test code = 0.07 10*3/uL 0.06-0.53 711-2) BASO x10^3 (test code 0.03 10*3/uL 0.01-0.09 = 704-7) Lab Interpretation Abnormal (test code = 51590-8) [facility] Center[facility] (BACTEC BOTTLE)2023-03-23 20:01:55 Test Item Value Reference Range Interpretation Comments Body Fluid No organisms No growth Previous prelim inary Culture isolated verified result was Screen-Aerobic Culture In Pr ogress (test code = on 03/18/2023 at 1801 [id number]) CDTPrevious preliminary malissa ified result was No g rowth at 24 hours on 03/19/2023 at 150 1 CDTPrevious preliminary malissa ified result was No g rowth at 48 hours on 03/20/2023 at 15 01 CDTPrevious preliminary malissa ified result was No g rowth at 72 hours on 03/21/2023 at 15 01 CDTPrevious preliminary malissa ified result was No g rowth at 4 days on 03/22/2023 at 15 01 CDT Body Fluid No organisms No growth Previous prelim inary Culture isolated verified result was Screen-Anaerobic Culture In Progress (test code = on 03/18/2023 at 1801 [id number]) CDTPrevious preliminary malissa ified result was No g rowth at 24 hours on 03/19/2023 at 150 1 CDTPrevious preliminary malissa ified result was No g rowth at 48 hours on 03/20/2023 at 15 01 CDTPrevious preliminary malissa ified result was No g rowth at 72 hours on 03/21/2023 at 15 01 CDTPrevious preliminary malissa ified result was No g rowth at 4 days on 03/22/2023 at 15 01 CDT [facility] (BACTEC BOTTLE)2023-03-23 20:01:55 Test Item Value Reference Range Interpretation Comments Body Fluid No organisms No growth Previous prelim inary Culture isolated verified result was Screen-Aerobic Culture In Pr ogress (test code = on 03/18/2023 at 1801 [id number]) CDTPrevious preliminary malissa ified result was No g rowth at 24 hours on 03/19/2023 at 150 1 CDTPrevious preliminary malissa ified result was No g rowth at 48 hours on 03/20/2023 at 15 01 CDTPrevious preliminary malissa ified result was No g rowth at 72 hours on 03/21/2023 at 15 01 CDTPrevious preliminary malissa ified result was No g rowth at 4 days on 03/22/2023 at 15 01 CDT Body Fluid No organisms No growth Previous prelim inary Culture isolated verified result was Screen-Anaerobic Culture In Progress (test code = on 03/18/2023 at 1801 [id number]) CDTPrevious preliminary malissa ified result was No g rowth at 24 hours on 03/19/2023 at 150 1 CDTPrevious preliminary malissa ified result was No g rowth at 48 hours on 03/20/2023 at 15 01 CDTPrevious preliminary malissa ified result was No g rowth at 72 hours on 03/21/2023 at 15 01 CDTPrevious preliminary malissa ified result was No g rowth at 4 days on 03/22/2023 at 15 01 CDT [facility] FLUID (BACTEC BOTTLE)2023-03-23 20:01:55 Test Item Value Reference Range Interpretation Comments Body Fluid No organisms No growth Previous prelim inary Culture isolated verified result was Screen-Aerobic Culture In Pr ogress (test code = on 03/18/2023 at 1801 [id number]) CDTPrevious preliminary malissa ified result was No g rowth at 24 hours on 03/19/2023 at 150 1 CDTPrevious preliminary malissa ified result was No g rowth at 48 hours on 03/20/2023 at 15 01 CDTPrevious preliminary malissa ified result was No g rowth at 72 hours on 03/21/2023 at 15 01 CDTPrevious preliminary malissa ified result was No g rowth at 4 days on 03/22/2023 at 15 01 CDT Body Fluid No organisms No growth Previous prelim inary Culture isolated verified result was Screen-Anaerobic Culture In Progress (test code = on 03/18/2023 at 1801 [id number]) CDTPrevious preliminary malissa ified result was No g rowth at 24 hours on 03/19/2023 at 150 1 CDTPrevious preliminary malissa ified result was No g rowth at 48 hours on 03/20/2023 at 15 01 CDTPrevious preliminary malissa ified result was No g rowth at 72 hours on 03/21/2023 at 15 01 CDTPrevious preliminary malissa ified result was No g rowth at 4 days on 03/22/2023 at 15 01 CDT [facility] FLUID (BACTEC BOTTLE)2023-03-23 20:01:55 Test Item Value Reference Range Interpretation Comments Body Fluid No organisms No growth Previous prelim inary Culture isolated verified result was Screen-Aerobic Culture In Pr ogress (test code = on 03/18/2023 at 1801 [id number]) CDTPrevious preliminary malissa ified result was No g rowth at 24 hours on 03/19/2023 at 150 1 CDTPrevious preliminary malissa ified result was No g rowth at 48 hours on 03/20/2023 at 15 01 CDTPrevious preliminary malissa ified result was No g rowth at 72 hours on 03/21/2023 at 15 01 CDTPrevious preliminary malissa ified result was No g rowth at 4 days on 03/22/2023 at 15 01 CDT Body Fluid No organisms No growth Previous prelim inary Culture isolated verified result was Screen-Anaerobic Culture In Progress (test code = on 03/18/2023 at 1801 [id number]) CDTPrevious preliminary malissa ified result was No g rowth at 24 hours on 03/19/2023 at 150 1 CDTPrevious preliminary malissa ified result was No g rowth at 48 hours on 03/20/2023 at 15 01 CDTPrevious preliminary malissa ified result was No g rowth at 72 hours on 03/21/2023 at 15 01 CDTPrevious preliminary malissa ified result was No g rowth at 4 days on 03/22/2023 at 15 01 CDT [facility] (BACTEC BOTTLE)2023-03-23 20:01:55 Test Item Value Reference Range Interpretation Comments Body Fluid No organisms No growth Previous prelim inary Culture isolated verified result was Screen-Aerobic Culture In Pr ogress (test code = on 03/18/2023 at 1801 [id number]) CDTPrevious preliminary malissa ified result was No g rowth at 24 hours on 03/19/2023 at 150 1 CDTPrevious preliminary malissa ified result was No g rowth at 48 hours on 03/20/2023 at 15 01 CDTPrevious preliminary malissa ified result was No g rowth at 72 hours on 03/21/2023 at 15 01 CDTPrevious preliminary malissa ified result was No g rowth at 4 days on 03/22/2023 at 15 01 CDT Body Fluid No organisms No growth Previous prelim inary Culture isolated verified result was Screen-Anaerobic Culture In Progress (test code = on 03/18/2023 at 1801 [id number]) CDTPrevious preliminary malissa ified result was No g rowth at 24 hours on 03/19/2023 at 150 1 CDTPrevious preliminary malissa ified result was No g rowth at 48 hours on 03/20/2023 at 15 01 CDTPrevious preliminary malissa ified result was No g rowth at 72 hours on 03/21/2023 at 15 01 CDTPrevious preliminary malissa ified result was No g rowth at 4 days on 03/22/2023 at 15 01 CDT [facility] METABOLIC PANEL (NA, K, CL, CO2, GLUCOSE, BUN, CREATININE, CA)2023-03-22 11:38:45 Test Item Value Reference Range Interpretation Comments NA (test code = 136 mmol/L 135-145 9801441046) K (test code = 4.9 mmol/L 3.5-5.0 9095897649) CL (test code = 100 mmol/L 98-108 2932627735) CO2 TOTAL (test code = 25 mmol/L 23-31 8998261221) AGAP (test code = 11 2-16 1535834352) BUN (test code = 32 mg/dL 7-23 H 9196874563) GLUCOSE (test code = 120 mg/dL 70-110 H 8534917289) CREATININE (test code = 1.01 mg/dL 0.60-1.25 4357615000) CALCIUM (test code = 8.5 mg/dL 8.6-10.6 L 6964368976) eGFR (test code = 74.4 mL/min/1.73m2 5263216649) LUZMARIA (test code = LUZMARIA) Association of [...] tests). Lab Interpretation Abnormal (test code = 47461-9) [facility] CenterMAGN[facility]IUM2023-[facility]-12 11:38:45 Test Item Value Reference Range Interpretation Comments MAGNESIUM (test code = 5941206473) 1.9 mg/dL 1.7-2.4 Lab Interpretation (test code = Normal 07375-5) [facility] WITH [id number] 11:18:43 Test Item Value Reference Range Interpretation Comments WBC (test code = 5.02 See_Comment [Automated 1990-2) message] The sy stem which generated this result transmitted reference range : 4.20 - 10.70 10*3/?L. The reference range was not used to interpret this result as normal/abnormal . RBC (test code = 3.00 See_Comment L [Automated 449-8) message] The sy stem which generated this result transmitted reference range : 4.26 - 5.52 10*6/?L. The reference range was not used to interpret this result as normal/abnormal . HGB (test code = 7.5 g/dL 12.2-16.4 L 718-7) HCT (test code = 24.6 % 38.4-49.3 L 4544-3) MCV (test code = 82.0 fL 81.7-95.6 787-2) MCH (test code = 25.0 pg 26.1-32.7 L 785-6) MCHC (test code = 30.5 g/dL 31.2-35.0 L 786-4) RDW-SD (test code = 45.1 fL 38.5-51.6 73519-6) RDW-CV (test code = 15.2 % 12.1-15.4 788-0) PLT (test code = 172 See_Comment [Automated 777-3) message] The sy stem which generated this result transmitted reference range : 150 - 328 10*3/ ?L. The reference r brianne was not used to interpret this result as normal/abnormal . MPV (test code = 10.4 fL 9.8-13.0 20908-8) NRBC/100 WBC (test 0.0 See_Comment [Automat ed code = 4260536026) message] The system which generated this result transmitted reference range : 0.0 - 10.0 /100 WBCs. The refer ence range was not u sed to interpret th is result as normal/abnormal . NRBC x10^3 (test code See_Comment [Auto mated = 9551810953) message] The s ystem which generated this result transmitted reference range : 10*3/?L. The reference range was not used to interpret this result as normal/abnormal . GRAN MAT (NEUT) % 76.2 % (test code = 770-8) IMM GRAN % (test code 0.40 % = 7063558292) LYMPH % (test code = 11.0 % 736-9) MONO % (test code = 10.0 % 5905-5) EOS % (test code = 1.8 % 713-8) BASO % (test code = 0.6 % 706-2) GRAN MAT x10^3(ANC) 3.83 10*3/uL 1.99-6.95 (test code = 3661778310) IMM GRAN x10^3 (test 0.00-0.06 code = 6936121981) LYMPH x10^3 (test code 0.55 10*3/uL 1.09-3.23 L = 731-0) MONO x10^3 (test code 0.50 10*3/uL 0.36-1.02 = 742-7) EOS x10^3 (test code = 0.09 10*3/uL 0.06-0.53 711-2) BASO x10^3 (test code 0.03 10*3/uL 0.01-0.09 = 704-7) Lab Interpretation Abnormal (test code = 37450-2) [facility] METABOLIC PANEL (NA, K, CL, CO2, GLUCOSE, BUN, CREATININE, CA)2023-03-21 10:33:32 Test Item Value Reference Range Interpretation Comments NA (test code = 135 mmol/L 135-145 7677915226) K (test code = 5.1 mmol/L 3.5-5.0 H 3984613662) CL (test code = 102 mmol/L 98-108 6327137078) CO2 TOTAL (test code = 27 mmol/L 23-31 5547729873) AGAP (test code = 6 2-16 7831517681) BUN (test code = 35 mg/dL 7-23 H 2906022233) GLUCOSE (test code = 119 mg/dL 70-110 H 0630010674) CREATININE (test code = 0.92 mg/dL 0.60-1.25 6007387539) CALCIUM (test code = 8.3 mg/dL 8.6-10.6 L 9975813865) eGFR (test code = 82.8 mL/min/1.73m2 8580633364) LUZMARIA (test code = LUZMARIA) Association of [...] tests). Lab Interpretation Abnormal (test code = 72580-0) [facility] Center[facility]UM2023-05-11 10:33:32 Test Item Value Reference Range Interpretation Comments MAGNESIUM (test code = 6021485829) 2.0 mg/dL 1.7-2.4 Lab Interpretation (test code = Normal 68239-4) [facility] CenterHEPATIC FUNCTION PANEL (71704) (ALB,T.PRO,BILI T,BU/BC,ALT,AST,ALK PHOS)2023-03-21 10:33:32 Test Item Value Reference Range Interpretation Comments TOTAL BILI (test code = 6186475920) 0.3 mg/dL 0.1-1.1 BILI UNCON (test code = 2385786558) 0.2 mg/dL 0.1-1.1 BILI CONJ (test code = 4138121328) 0.0 mg/dL 0.0-0.3 T PROTEIN (test code = 7056196775) 6.2 g/dL 6.3-8.2 L ALBUMIN (test code = 8849035513) 3.0 g/dL 3.5-5.0 L ALK PHOS (test code = 1926933553) 65 U/L 34-122 ALTv (test code = 1742-6) 22 U/L 5-50 AST(SGOT) (test code = 5577877297) 49 U/L 13-40 H Lab Interpretation (test code = Abnormal 58069-7) [facility] CenterProthrombin Time / [id number] 10:11:47 Test Item Value Reference Range Interpretation Comments PROTIME PATIENT (test 11.5 See_Comment [Auto mated message] code = 5964-2) The system [employer] generated this result transmitted ref erence range: 10.1 - 1 2.6 Seconds. The re ference range was not u sed to interpret this result as normal/abnor mal. INR (test code = 6301-6) 1.0 Nor mal INR <1.1; Warfarin Therap eutic range 2.0 to 3. 0 or 2.5 to 3.5, dep ending upon the indica tions. Lab Interpretation (test Normal code = 00981-4) [facility] CenterProthrombin Time / [id number] 10:11:47 Test Item Value Reference Range Interpretation Comments PROTIME PATIENT (test 11.5 See_Comment [Auto mated message] code = 5964-2) The system ich generated this result transmitted ref erence range: 10.1 - 1 2.6 Seconds. The re ference range was not u sed to interpret this result as normal/abnor mal. INR (test code = 6301-6) 1.0 Nor mal INR <1.1; Warfarin Therap eutic range 2.0 to 3. 0 or 2.5 to 3.5, dep ending upon the indica tions. Lab Interpretation (test Normal code = 86239-9) [facility] CenterProthrombin Time / [id number] 10:11:47 Test Item Value Reference Range Interpretation Comments PROTIME PATIENT (test 11.5 See_Comment [Auto mated message] code = 5964-2) The system ich generated this result transmitted ref erence range: 10.1 - 1 2.6 Seconds. The re ference range was not u sed to interpret this result as normal/abnor mal. INR (test code = 6301-6) 1.0 Nor mal INR <1.1; Warfarin Therap eutic range 2.0 to 3. 0 or 2.5 to 3.5, dep ending upon the indica tions. Lab Interpretation (test Normal code = 01270-2) [facility] WITH [id number] 10:09:29 Test Item Value Reference Range Interpretation Comments WBC (test code = 3.95 See_Comment L [Automated 6690-2) message] The sy stem which generated this result transmitted reference range : 4.20 - 10.70 10*3/?L. The reference range was not used to interpret this result as normal/abnormal . RBC (test code = 2.90 See_Comment L [Automated 339-8) message] The sy stem which generated this result transmitted reference range : 4.26 - 5.52 10*6/?L. The reference range was not used to interpret this result as normal/abnormal . HGB (test code = 7.3 g/dL 12.2-16.4 L 718-7) HCT (test code = 23.5 % 38.4-49.3 L 4544-3) MCV (test code = 81.0 fL 81.7-95.6 L 787-2) MCH (test code = 25.2 pg 26.1-32.7 L 785-6) MCHC (test code = 31.1 g/dL 31.2-35.0 L 786-4) RDW-SD (test code = 44.2 fL 38.5-51.6 90853-2) RDW-CV (test code = 15.3 % 12.1-15.4 788-0) PLT (test code = 167 See_Comment [Automated 777-3) message] The sy stem which generated this result transmitted reference range : 150 - 328 10*3/ ?L. The reference r brianne was not used to interpret this result as normal/abnormal . MPV (test code = 10.7 fL 9.8-13.0 52032-7) NRBC/100 WBC (test 0.0 See_Comment [Automat ed code = 3678431451) message] The system which generated this result transmitted reference range : 0.0 - 10.0 /100 WBCs. The refer ence range was not u sed to interpret th is result as normal/abnormal . NRBC x10^3 (test code See_Comment [Auto mated = 0111386620) message] The s ystem which generated this result transmitted reference range : 10*3/?L. The reference range was not used to interpret this result as normal/abnormal . GRAN MAT (NEUT) % 72.3 % (test code = 770-8) IMM GRAN % (test code 0.50 % = 2983327844) LYMPH % (test code = 13.2 % 736-9) MONO % (test code = 10.4 % 5905-5) EOS % (test code = 2.8 % 713-8) BASO % (test code = 0.8 % 706-2) GRAN MAT x10^3(ANC) 2.86 10*3/uL 1.99-6.95 (test code = 9472604557) IMM GRAN x10^3 (test 0.00-0.06 code = 0856941071) LYMPH x10^3 (test code 0.52 10*3/uL 1.09-3.23 L = 731-0) MONO x10^3 (test code 0.41 10*3/uL 0.36-1.02 = 742-7) EOS x10^3 (test code = 0.11 10*3/uL 0.06-0.53 711-2) BASO x10^3 (test code 0.03 10*3/uL 0.01-0.09 = 704-7) Lab Interpretation Abnormal (test code = 79617-0) [facility] CenterCyto Abdominal [id number] 19:09:58 Test Item Value Reference Range Interpretation Comments Case Report (test code Non-Gynecologic = 9100073365) Cytology ?Case: [id number] ?Authorizing Provider: ?Cecil Kirby MD ? ? Collected: ? 03/18/2023 0000 ?Ordering Location: ? ? Cardiology ([facility]) ?Received: ?03/18/2023 0047 ?Pathologist: ? Mutkael, ? MD Nikkie ?Specimen: ? ?ABDOMEN ? Final Diagnosis (test a1yphFYeNCRsh3rdZYJhqLH code = 7971408594) uZzEwMzNcZnRuYmpcdWMxIH tccnRmMVxlcGljMTAyMDZcY S0dwFktnLo5oLicKWRadtS3 iHZfDXpjh5wxVWG8j1ydfni hCJQaHXgaIr9pcOTsgJvkQk BuEVViFNt9gD68SRBupV7sd DGoRKi3CYUigCLdygQyJuBh GTZehUVfnVA9KAEzML6psts jQMuuVYkaFFKczoM0IJQmhO MlF0OcTRIiRY5iwafuYNY8U AzdUUVcLOM0NfCcLQXsm4Xm uwg9GoKcrRIoBEvxwIWgbca mczIwXHBhclxiXGZzMjIgQS 6wAJBJD02LEktnKSPSUEOJQ qEAB7mJBDJBYBpEHmyhRUXl gILtAC1qFUcQGUBrSP3YHBS UEUPQYQ1YNUTgauq1NDScLG KDXOpDODjRZNWYB1RyJGBZV UqTWE2PXVPETZwOMYnQQXSw R41ASBOHTVklrJJpWAMmIYQ wwp24UGR0HjXrs7A6DGJnAz KpXGIzGJ1thOdnSFCgRY7oP CKyY5pmcC4bnkg9ByHwVHBa ItZ0ZZNwanA0Rzt7ASQiECb wj6dlg8RdH2LeuJXbyVp8k5 dcIDAnLeW2vGRzBAuaO4kqv dGmmJMwHCKmCMh3nNlrPpEi UZDnp6aggjHxMiTzGUCyIOV rVKVpmJigege5kN74JCXdkI 3baUFeYEpwwgBkEwZ9NJrnB BMhWnF8PTLcfKUwSLQoA5dx ZWQwXGdyZWVuMFxibHVlMCA 7lXoio6X6lJMrwFZsfSloMj OtZyQlWWJEf1UvFTk0hGxqZ 3PqHPBzFgG1wLFyXKEaLGcg IGCtXYGmaiY7tH93BAazsrA 6lBEbl1Nsm37uf875sS9ljC UgEYV1IBZhMUOurKBfFHWuX BZ2YPLauOPmB9rbWOGrDC0h qamcECcnTLzfTCIesHQ9BNE ioVTuB0EnFYFpTYvxCEVuvb f7LrXaYi3qgRRrrIbhAMwwb 4qsl4ylgBNfFfk1NFKaWbLn GszgNAgkx8Rtm6fqXUEpgo2 kDTI6yVVelTnre6Z1mVQsJJ VuwOWejtLyBPBhEcS0GEkwG V6wwu39HKRbULO2vy3egLVl mFqacjMwiUXeZBmvQ2IyKVF si704JIQsE5JdMAMhw9A1hu GvKpBpPTEceSA8saE2BCIsR La8fVKdrkS9ceDfaMYcY9wr uP9dBYGvXI6dxufao8gyJCe sJBxfGAFsvMN1tjT9SVObgY PzU1KjmJ6hMRKxRZvxVYOna ex0MjIjSw8sjSXtfJodLRvu YmtwYWdlXHBnbmNvbnRccGd uZGVjXHBsYWluXHBsYWluXG UvFAXtVaShzFktnJewbC4eC vCoRaKoSVnnZW1mIMYiX1bp eWAnRUBaEDHwX1yoHnQfhQ9 jaFxmMVxjZjJcZnMyMFxwYX IgSSBoYXZlIHBlcnNvbmFsb ZkoumV9uPE6PRVuWRwhLXDq QDEesXZxdx8emWdrZAEkTI3 kIGFncmVlIHdpdGggYWxsIH X0UYRzlCBkvTKfhHAtDUHqf SByZXNpZGVudHMsIGZlbGxv v9Dri7DtkSG0wV1ba4pug3N rVZNoyXO5UM57aiD8bE2zBR OcAT0oQUAgBD5ueIDftRRfR KEgz10scIatdyUvQSRscjFb XHBsYWluXGYyXGZzMjhcbGF uZzEwMzNcaGljaFxmMlxkYm FoSUTbLMdyU0awHrNmJpGuA GrjBBS6vL== Final Diagnosis m8ehgMCjWTNqzOVdXUMtZgk Comment (test code = fxuIpLEEpjHJqJ7GliqiqEA [id number]) mvEU0pNQ7ppQvvyUUptUVyF LLmTfRae6ood253sQGxf7zx MQIDksbxdJn8kHouF78cs9J 1SxkuD26hnGIwAXT3CVXtTD UayRPeTSQmCPA5DUPgtJJiJ 5ptEEKrYF8jffgrDUlyDJbs XZOiaEE7KKUgaFOcJ9BuJZZ sJKfiGBWjxwe9WlLoRo0plO VyeTcyMFxwYXJkXHBsYWluX TMePeZyF25qGAHiOFZxs0Ru dsL7tTPziBocaNVtWWs7cWO pn7C4gCJxHRJhxeJjyIjnjV zgD4y7ZTKqiY6sIMYcVULaR 5NwdG5dJV9gEHCwRRS1bZNe DD4uu875kNFdgSQeNZMntHw oUxEqwxEwYHgcF93olnVbZ4 LlcYTweXNyouFwPtrdXI4aX FxwYXJ9 Clinical Information 62-year-old male with (test code = PMHx decompensated HCV [id number]) cirrhosis. Gross Description h8cjzMRdYZUlaCCiCSLcAbu (test code = kxhKxKESzyONmM0FduwepDR [id number]) ppEJ8hTQ0vpDmquTWlrRXhJ KMvVeVrt7ozq813eEOqd5dj AQKWrdrrkRj9zWicH74bj0Y 2GwcbD03hqGOwUAK4VOAdJC WwpHSaPAHiWSJ5FEQteQGvQ 3ltNZDlJL9aknelPJkbLHfa LXTavDQ9FWVlmPGcV8HwQPN yYIxsETZmjxp4RtGbGh8lhJ RjtJgfQVoqDtwxrVxid0Vna CBcXGlkIDUxMDAwIFxcZGIg I3QSJHKjSfHbISO1MQQdSaK UUUR4ZFVgQqTnYSVYLSZkME k3QWZoEyRhSzEALxQpKFUmD HLeAQVqQWVsRV1xIAfkrSId LDohJragNMsmS564WWerDQF oB2LvJ6XoQRvbKED8KAYaZb GuKZXgUS7LIrKxHRytIhO6H PSnHGs4ICx0CD9MDsYwQGSs UuH2MVX8YrDkVSb8QYzvCT8 MEMW7AUQ6TvN5CdRvXAO3Xc akJNz6OIQqKJtqpdVaWPspG lnmXXazN87okNBwVEvdiPBp blxmczIwXHBhclxwYXJkXHN pLmWzDWPaB0taJzLdEBBkVS luXGZzMjJccGFyXHBhcmQgQ TEuICBBQkRPTUVOOyBQQVJB K8VQXRILQUUcXpqNPWMwpRG iYIZuC7VxzkMaVEOtVOVzKE sbUKU4HADbT2Nwp1RyF1njn LC7GGhkdZhwxvKvbQPgAVme YXIgUHJlcGFyZWQgMiBzbGl vXAJySDVhLJHrBY8yV22eKK 50ARM1xE3leTuxMHPuoqEhN CEZi14hno06m7k4TSK1oF2w dGyiLENdQGSyfsU2rB8hDJu kRRCie5TrWHidiWsjVLZlMk R1WKUcvMYdEZO7VO1rgCsqA CEuA8PgE3VlkiB4JWOtlo7= Disclaimer (test code z6asgCRiFQGwc3cqGUFyvSZ = [id number]) uZzEwMzNcZnRuYmpcdWMxIH ucagLdVTvcm1MxU9MtVuZhW FxhbnNpXGRlZmxhbmcxMDMz BZU8ykPqEOHbAIdeQDXtDZn tOj3laVMuoRagGtXfTHPmd2 duvmKKJFtvCdOwO530EQAnM Bryu5uds5FaVGUxePHij2K9 IERPrvwdpAw1qBcmC22ok3R 0WqlkW3vaHQJsMKEnB7XwVL 8qXMGbFlm7ZSV3TZB4DVZeQ GBpH3ClZO5iDPHovLUhXNl3 u5xgsLuiMVXqINH7a2czLWq gnjTpBP9var9mnPs0g7gfti WkJPKbGOOpqXXSCTUaO2Cgw YehMj5uzQf8uEtmRvxbLPI2 Yqp9VL3ojv51mnd7rJajLSX hjqwcQcP9DCyiQOVgezkzZI r5MBpiIOAgaSA0UWSruLJcM 2FoTUCsWY3dgix0BHG9UTok JMLwZhR2CGLakMBeYGQliSu cBTobc709NBJ1BuXwOY8fE8 Xdo5X5yE3kzVNjSJEiaHRmQ jYoFEYyjb4yhOKkZSyib7Eh TMC5lbT0yRGpkFWcIZVdAL9 2Kntgv7HiPqdzp9DbK01cpM M8JXglc8jtTP2rXvO6vrNjV Fajw2wtwK2aJkL9DCrpRI5f NZ1gWIZqaS3ejldnDJShYvF gnwbzQHDtpLqkplYyYy0ksX mzKSR3VExjZ9cilT8kEkD1F NdlV2ssjP7yXSn3YNziuGJ5 ZHHzpI0zPM4uvbxdn1rsBIm fCThfGOBaueE0qqV1LXStcT PuM8BlsL3gVPHuIJ3poaqos 3bsKUO4GQbiEUKzJKU9JcNe UVOzk3Gbswf7JcBih7CbqBY zTNzuH51ie479ATOadtOlJ9 xwbGFpblxwbGFpblxmMFxmc bD6KDGbliVwv7KxYWGiGOA5 XTecMZkjoXBgBCFxsJmwk1g uM3McjGIeYZGkQKisZZEgHE ZzMjBcbGFuZzEwMzNcaGlja NsjLWhsKsLxXGPlTOpfB2do TcEgD8GgCLKlQpMckGDiJ9i kAQrvgiTjBZCbceDfuKS5NM rlT0t3LHKnzhWvfGm3otKmJ zOtQDZyLZX3SUxnrOZtHJIc w0TskcqgoLEbMw4pxWQmNPD sfX3xVQCtFYZyBPtxIV0daQ b5TSELeJYwgNLmVzZKYGRiR P53dsTwPUKRuphnm5K9LSwg GFJve8AypJYlO2bld6LvNVA pk98qWL6uv3G6t2gtKTJ5TI 0pk5BvWIUpaLRkiAHjIKLpr 8Anxwajn2UpLSVzitTkz2Od ZCBhbmQgaXRzIHBlcmZvcm1 vbfElEIPjKASoM1WdsilywT eqniGfPHWdba9eibMoGYU5G NCBJODbSHCjk7TgqA4pqYST EKT5cCOjds3mjyQDzWXxXXL ejh01UNRmMR4wT5vmSRHwDV JkruUmvVLip4OkNULemBJ0j RYuFM9JBxILg34gLWRlXZHF hjDhVIQkfKzkrQT6kcE1rC9 uIChGREEpLlx+IFRoZSBGRE VnMI3xqkIxm7QlenVtbDvbB AKvnFNjk4UfoRFjj6TleQgv r3TtrRKrbEQdFE3iJRBsakl zVDQgFQTJIoAGRXHldbP0m1 UzSLTxWRUsNJI0aHoqqvw4S RRqxA0bZNWaZ3nhaqqmMQby GPRsv9ScyW2sxGISxMCsi7P kaZFeiDKBmEQkMF4cnyOcQA tXDVvHPTK4kcHcYKVkd4HoW YljV9smM23bvOtygYf6aQS1 REQ3qK8rOte+IFxwYXJccGF yIEFwcHJvcHJpYXRlbHkgcm MoN1HegvEsoL7ykBLzioHtM Z6mPW0mK6H8jTFnZHLeguQh h5zaWAsuptBtHdCeshIrAZJ vKAmtHGGtg6LkHOzsQTG8EE lucyBpbmNsdWRpbmcgSCZFL YWIcFVceKGpGFN5TYhdxnMb vtIqFH1irC5zwKrkqZ6kbVM uiGH5gzdgQCBcATMmbTsbIC AtBS8xnKHxQZHurfULmInpt OVogH6eT9VtZYQmFYWudw4c DPKjyH9hBOmoc8MpownwWKF uQVQbNGVlgjXtni9zJQPomO EFUE9QNAioaGDqx2XukyUqL 0cMYMB1ZIRlIsKiRnfwSFDe bVScfHErLTAyog81NFJhwX6 zlXwsYPYwpA1umE0jfKkcjS 2qCxPnHgYxAXzdCZ1gIOMfS 0gtrUKoEEStNUCdS4ivPvZj kD8mfAcwRCfeSiOiIwRzFSm fPUF6mC== Embedded Images (test code = [id number]) [facility] Abdominal Ybjcl8061-04-75 19:09:58 Test Item Value Reference Range Interpretation Comments Case Report (test code Non-Gynecologic = [id number]) Cytology ?Case: [id number] ?Authorizing Provider: ?Cecil Kirby MD ? ? Collected: ? 03/18/2023 0000 ?Ordering Location: ? ? Cardiology ([facility] 9B) ?Received: ?03/18/2023 0047 ?Pathologist: ? Muthukumarana, ? MD Nikkie ?Specimen: ? ?ABDOMEN ? Final Diagnosis (test l3cvaQVqGZBnu2esEFPbtSE code = [id number]) uZzEwMzNcZnRuYmpcdWMxIH tccnRmMVxlcGljMTAyMDZcY T1tzYlvxYj5qOmoVXMtsnD8 mHZnMBjtr9niQIX5r8hcdek dRGUhJYqpIr8xlLKadOrgPi VrKYLgNVz4nT52YBNojG0pb EQdBHr4VWPnxDSbbhLkViUw YICnkLGhxQS1MNPeZX8ybhp bIDsaCVgzTQBnxeI8TBZhbX PnJ0AnJNZwUB1gowdqECF6Q DqhCUBuYQE4QnDfYBCmm8Nl pjq6SqMioZFbQScbgNVbtih mczIwXHBhclxiXGZzMjIgQS 3zZZYLD48VPwksXMCEWBKSP bOCU9bISBLYYFmBQzdxDNJa eMSnQI5yPObVXLXdFW5XJIJ QYWSKQC2JCDCnixw8NBSgEU EPYNkSKHuCBSDWM8UmXEQJA SsLNH9WSQTFYFcYKDoSNNYw G86UZGBYQUvkqERjOFPeUPS oiq76FAH7UyBjh5A9XJZrJn IfFWCtWW7biSwaFCSyIG4qF HHuW0yrjD1vpto1BbWhIKAf EfN6WUWyviA5Vtr5UZTsLKd na2fuv2QjC8XbzAUxkPt2y1 hdDWJjMmC4qHLnJHvxB4gor yZjyIGnXPDwCTs0iGdoTtQm FYTjc6bppcDlFoThQHIhYFK oTAGkyIiaswf1kD08OFNprS 6uqARiRWfymjFzLrZ0SGeqJ XNpIiK9BUNomXAjSVIxO1ex ZWQwXGdyZWVuMFxibHVlMCA 4tChxy4H7hJRzyMAwsMnfPc PdVeMhSSLVr2RhHEk8eHazW 4RxJPEbIaJ4fXEbXWMiPXyv ZNAsVVGvpgG0aK86UDegqwW 6vVWzv3Hsi99cv579kN7xmU FvUJA4SXZoCLUzbLTeYTAdC XN9WYMvvVTwS1oySBLaHW7m jpncBIxtLZsqZAHybWN7WHR xwBMvL1AxJENwMQnmEBCfoo x3CvMiPc3bbWSqzUnbGFrrx 8gpr8qoaAYzUcx1EYSmCgUu EyxdOJpei0Ppe7lsBDHhsw9 jDAS1dZJhlUojj4V5bMQuRM SkvTRkkhOcAEMqRwE8KIxuV W9odj42YUVoPMR4mf4peDYj sRodtgUckDTwVWouE6TsLRI fw662SVHgT0TjVMHnp8H8fp GzMpWzQTBenVW0qgY8SDOnB Pz7qCJekhN7kxFakCAxI9eq nR5oEJTyEH9bwixet7luWVc tPLxyHDBiyTZ7ocE8ZMNncU MeY4ZerR9gOOFfYKizQUNzl ku6KeYcMa0lzABjqWebSKiu YmtwYWdlXHBnbmNvbnRccGd uZGVjXHBsYWluXHBsYWluXG UtYJRbHfRroEkqpNabtK4vP iCzAeFiRVptXR8zQMEnY8gr sGPvDVOvVZIzX0ouKnAvtW7 jaFxmMVxjZjJcZnMyMFxwYX IgSSBoYXZlIHBlcnNvbmFsb IqrfoU6bFD1CCObWPmtCYHs IFPnpDPdkz4efLrhLOQpZQ9 kIGFncmVlIHdpdGggYWxsIH F0ZMQifVLhmUXjiHOdWTErp SByZXNpZGVudHMsIGZlbGxv h0Bal7UslLE2hP9rl9zci8P yETSexFL7GS16ebX3rE7sAV PwFT7oNQOiWY2lzQPljVZeL KWyd83zmJzdauNgMOTtxqMc XHBsYWluXGYyXGZzMjhcbGF uZzEwMzNcaGljaFxmMlxkYm RrZKVbHIinG0asXrMjZxLaK JehEIJ9qO== Final Diagnosis n0qcmGWwTDPpoLJiVZLfWsl Comment (test code = vccFoZFLvdNPmH6WfnzggGV [id number]) joVK9mCK9mkMpliQGuqIAeQ MOuBtQni6jfr469cYBbf7ze MEBNngqkpMy8oWtrK12aq1N 5BkknZ19ouOBsKYN8JAEvTT OhiOEyOKKkVZO6GFVmvQWcQ 5ctMNUvVS5oioxpYBluAVjf LVIfdTE1JJEyqJAwJ5JjCEE xQJidUUOuzpt6SaNiJp0zzE VyeTcyMFxwYXJkXHBsYWluX GAaGjSfV01tBJNmBIPem5Nu ofL9zIPoeKapqTUfHWs0qPU if1Z2hHPkTIMdtcUdqPrmnT bdT3b4OAPojC5uRWDsAVLeF 8MoxX5bMX5fVBObJQO0eERj LE8li399aOYfgUUyGASezXj rGvRcyvFmFVgqQ16qjfUgJ6 UvvAWfhPAfraYbCqheMS3wG FxwYXJ9 Clinical Information 62-year-old male with (test code = PMHx decompensated HCV [id number]) cirrhosis. Gross Description q4xqnQTdZXDmsLFpGINcVtz (test code = xwmCrBPJnwKDpT2PbqdnySE [id number]) kvYA9dBG6zxDpouIMspXXmV MFsTzYwb8myh591oTDxa1gz HSWTrajyuHh3cNqsB79dl4O 5OnxoD09itHEtOTP1HSHwGB JzkQUiQYFwSPP7GEIiaFLrX 3oeJDKmNY7oyvihNKpdMOay CALghUE2MTPddZFqG7LeIIO ySPyqZVZukzn7TiLlWe5muZ IztYugRKvlMrkhgOfwr6Fmb CBcXGlkIDUxMDAwIFxcZGIg X0GIMXJsNfKlJBO6JUCdLpJ SLRT6DDRrQbEdKTCPVSMvOE l7UVGxIjSwIrMWVyXyIOCaI EDpBJIvNUFsOW9wSKjdgCTo IHtyNtyrEMfgY657LEobJUV sI7WhS9YqDHdcUWI6LHBcNl SaQYWfMO5DUaVyZNodGuG3I KRhAAc9QIt8IU9XMeUiQMLe MkN9XGO9MyXjNXp3IPmoPH3 RTBV3OWV8OvL1PhPuNIS0Iu epAYe5LCAiYIjeyaKzUUjeS yvgPGloG34bfBDpVHerrFKp blxmczIwXHBhclxwYXJkXHN dJjLrWHIpL3glSmTpBLQjVF luXGZzMjJccGFyXHBhcmQgQ TEuICBBQkRPTUVOOyBQQVJB Q4GSRNBPOJQuFnuLWKUluIH aAHQkT6GbjeWnCAIfNVJsCM mbAJF2WLCkV9Zjh5RhN8tzs WL5ZTgfmRkdgrMtoIHuCRnj YXIgUHJlcGFyZWQgMiBzbGl bWRYbAOMiVVOqOV8tI31nXO 71SQI5bW6ueZstTZDbysPhS LRBc50nlr69c3p6IBN3sN2o jOhoCNIeLVEfmwE5iT0fATe pNLJif0WpKEvvaAxwKAQfIs L7IHYkmQJqSHH2SP3hdRheO YZtP8YiH7FdcgB9SKQybi0= Disclaimer (test code g6pwbURlQVCbr6lrRQHdnNX = [id number]) uZzEwMzNcZnRuYmpcdWMxIH oedsAsKWvfe1HtN8JwFeNuE FxhbnNpXGRlZmxhbmcxMDMz RLY1ozCcTLYsTPmhXUUzYBx iOq1pfAHehXulSlKiLMVzi7 lzoiRAGZewNpJzD333EGUsB Ruzv6dtg9UqXPRqgRImb8V0 YWIZsgszkYv4qQdqA86ev3Z 0LaozR7qrAKXmHFIxF4CvJF 9gAEYiZrr0SIC4GGU0EJRwA JJwP3EiJW0sZNYuoEHmVGc0 e9kibBqxQPHvZVJ6k8nzUSi vlyWeJY6nzd8awMc8e4uheo VfFBChGABilDVXJSVyZ6Xez AhqHp7qcLs1wJskMxhmNQY8 Bwf8PC7qll40yis7jUkpVZD urwfaMnP9ROfmLVKrpreiSZ m0TIgvLAJgyKD3REVveJEmO 7SeQWAmLT3xhjc2RND3YPcn YEBqFxR5MDZfcROrCOJrqUw ePTand862NMT3EnYxMR0dD3 Nyh5A2wS2vlGVhKIAduLJlY pEwEHDacw7klPMzUYijt8Fj NHC4rqL2aPJyqVIlNRLsKF7 9Rhsvs3KjAnsfm7FqR26suF U4QGjyg8tnVM9hYaY9goOqO Kmtq0foyB6yEkV4DFljEY2n IT9jKMOtsA3ufhuiAZSwPtF mtijlZKNnwTguggTaGz6meN vqQUV4WIbaW3lemE4nEeJ0P VqxE9mxpC3zQSc2RAsjsYV2 WCWgcT8dEY1laewsi1mfETu kKOxiXLEhdwD1opO7DKSfcL SuK2PamR9kLHNjSO5uvrovi 4qrWPW7MBiwCGOqXTL5GxAp FIHow7Exgrw5QgDyc3CmcQU tCGhbI48wy471XEApblCdR4 xwbGFpblxwbGFpblxmMFxmc hF6NTIwsgAut6GjWVPdYNW5 EYqxNSfzbPTgQJMnlUtnt1c lO4QwnHCnAAKcJVuuOUXsKM ZzMjBcbGFuZzEwMzNcaGlja JnnBLmzClVuZTCiFFgzM2eg VgEqL9TeFBVaQjPxxHLrK7v sXBskruBmEGSsaxEfgBG8ST rdY0o8JARzivJwyYi9ozScR qHyBXUhLNM2AZkoeTXfKZRe c5RsfrlhdPExEa2fnJDyVPQ ecB0pQGXzLGDpKGmeRW3pcD f4LZGAuGQplLKlGrUXZMNaH P75lwUuQIOWoivgi9W5NGmc RUSbw0BfuXAqA5goh6MhGYC tm86cXP1fd1T7y9faQXK5FO 2gp0PdVJYqhKVcnVTfJJHdz 1Lvxwver8KtWFDlqjLia2Lf ZCBhbmQgaXRzIHBlcmZvcm1 eypRpJEOiCAXbM0KninufxF vccpAjWLOmnf0tubNqXPD9N HAVMVXqAYRqp1JrmT4vsQDU NOC1pDNyyy1kxrQQdXEbIQX kpo02XNWcVH2iA0zvHOGoWP QxtqEzhLNui3RlZLFmgFQ3c NIxNI2JLgTHr54rAYUxKJKQ wmYpVBNtgIhpeRV7oxE4oN7 uIChGREEpLlx+IFRoZSBGRE QsYT1tuxAkx5BopuVffVzxK TYbsKPvl4WbyJKix6WzxJue b2NtpOVfnUJrQS6tSQJzoln zSPCvEEMFMqQKHHTthsF0f3 TuESBkUZIdMTP5yZeauna0D EIfeW2jPBOfH7uzyfaiZWxj WNKyp7VsrD0ckCZPlAFos0G nzRXfpUARxFNxBQ4vgyUqUY bSXFaEUKU0woUsJXXqi7NsA FvwW6wgB61snVzeuNk5zED9 WVA3lV8mGqe+IFxwYXJccGF yIEFwcHJvcHJpYXRlbHkgcm YcQ0HibvXhrN1vpZCodiGyE L0xYM1xS6B6rDEtWMFawnJr e8gcEOllrdBvXpQgouOwJNU sXTzkIVEqf5BdOEaaUOO2XL lucyBpbmNsdWRpbmcgSCZFL KEOxPRjxLJbMHV1PLxaaiPr ouAxDX7iiK9myLuopM4gnKK sjXS0rwgyYYYsJMWftUioAT UgEN3dsXOtCHNsaqVKcDpqq ERndF0eF4RmSCEkDKSdxk1c HJNfcB6cWBwvy0YnsyliCUT dTNXwZSIjmsFfwl1oSDZcaJ NWCB6WHAmwyNDzl4BvipTxC 1yYKUI1XDKyIiIcWodkUHVt qNOccYNzPNIlro90ZIPubK1 jzUetQGJljJ2znV5unEsucW 8tTcPwZiUqUUbuLK4lSCSwJ 5ebhUBkAGNfVZNeO3vlRaHv hU9dnDbcPRhyVtIjRwLjYZe eAJC4zO== Embedded Images (test code = [id number]) [facility] [id number] 19:09:58 Test Item Value Reference Range Interpretation Comments Case Report (test code Non-Gynecologic = [id number]) Cytology ?Case: [id number] ?Authorizing Provider: ?Cecil Kirby MD ? ? Collected: ? 03/18/2023 0000 ?Ordering Location: ? ? Cardiology (FEL[facility] 9B) ?Received: ?03/18/2023 0047 ?Pathologist: ? Pawel, ? MD Nikkie ?Specimen: ? ?ABDOMEN ? Final Diagnosis (test t7tanNNrQFPpz8nrHCAybMF code = [id number]) uZzEwMzNcZnRuYmpcdWMxIH tccnRmMVxlcGljMTAyMDZcY H1uxEjjpYo8uPlsLJVgtpH7 wREnJAnfx1irSWB0m2gblzq aOAAmJTpaWx1soIVpkXclHj SxKVHaGAy4dF16KMCjzA7ns NUtDLp3IGVjqMTdqoJtMfWt BRUlnJPlkYS9QKYiYP0uesn mGJjpWYpcWGFbfjC5ACKxyC SiT2TtJONrPM2xhkciYCZ4S NrhAIIjSXG4XsAqQGAcp8Go bti3QkYdkGTsHZbalTRvezh mczIwXHBhclxiXGZzMjIgQS 9eJZSPY13VGfzlUQJKACVDK tVKB3oCUMZBZBpVQkqrIMRp mHPpLX3sQWzCCCRbPL9OQSZ PSJZFHC2YOKIjkfi6JALnZO CPDBoHXUbBBBWMR1JxHHGRU UwAXV5DUEBTADbYIDrZYARf A07FNFHNVRsmtMIxMAHuCZD euw59NYJ9NfBrj1U1WXBhOs EdTBFkZM1xoAkmQHWfLR2hA BRoX2hrmY3sqcv4IhAcLLJg PlH7BXFpmnE7Yfc2SIKeAJm wc0avw5UfC1OgzSLbyVs9z9 eqELPhYeA5eKLcWMqoB4vit gSgaFNuHFXoSDv6ySgwFcOs VFOdm0edikFcTxTxRWZfZCJ kOQTjtZsoayk4yC77MTMqhE 1fmWUbDXbtkpHfBoG0CFwnA SMfCpZ1QRBshSWwNGEbR5or ZWQwXGdyZWVuMFxibHVlMCA 4gGjwf3I7fENegLDfuJpfGk VlTaDtCZMZi0RdALh7oByhQ 1RxAQNiZtB9hPTePHWdMHnc WLSeMHMnzaB2gL67BPfcuvU 5wHYtk1Vwf32aa102aX0nkW RrQNM3LTKuGMWmwSMhVSRtZ EI8RCDyiWCeP3zvZVVkBU3a lxzeVJfgBUnhFSTnhMX9WFI toKIqG8FiILBsIQzpVIVbhk l7MpLhZk9mjVPcuHwuZIjry 8hoo8gepJLpJga8ATNaIvGg FykjCVdrs2Apc3eoMMUthw3 rZXE8pBMusFkdm1W4gQPvAB FclGKekaGiUMNoGfP2LVsvQ Q3jit72BNVqCAD4cn9ayZZv zZmyqkSeiFMyHBntN2OtGIF pk452WNLxJ5FnLXFur3V9nd EuVyEeKBYvhUF3ghZ6QHLiU Lx3pMAbpjR3opGzfANbF0ec gD6lCGCuLL4mwegok3bvPRq vYSewBFPgnEW8hfG8FUAhyL FkF7NelL6qZGFtDIexOLRbt bf4StZzCe8zzDSbzAybAEjq YmtwYWdlXHBnbmNvbnRccGd uZGVjXHBsYWluXHBsYWluXG EcRUWlOmDgsEfxmZdisX6bX nCiJtNkDRpeTW1uZNMrX6nt cLDqDGVgHYMmI3iqNlApnS9 jaFxmMVxjZjJcZnMyMFxwYX IgSSBoYXZlIHBlcnNvbmFsb WgfszN2rFO5JSHmRNnzMTHo FIOjdNRenq9myIwlPQNmYX1 kIGFncmVlIHdpdGggYWxsIH P6OYXxfQJksLAneLUgAIYgu SByZXNpZGVudHMsIGZlbGxv r2Lnh9SzvVF0rT6wi7lrh0V aVWAmhPT0QZ64gnE1tO3bRD FsKT1kRPRlBU0scGImgVFvR LFjl26xgNjgfdWpNOUyonDx XHBsYWluXGYyXGZzMjhcbGF uZzEwMzNcaGljaFxmMlxkYm TuZSYdCMbjX8jwXlPtPiDiP BzwWZQ6aZ== Final Diagnosis t5snyNScFDQrhFFvWOYxBou Comment (test code = ezqWwURJyuYEzZ8YaqglvIL 9988789754) mjZY2vVR6phGwhsBTyvNBnB JTrZrJkq2pql081hBCmz3rh DYAWwekjgEy3dYzzP90hr0F 3ZommL70duXCvCBE1ZYHjOO MixHCiAUZqSTC3HVVtvNGqD 1vtERRoRR8aihhzOUngBVsp MYFkoYW0GTRtpZFdX9WyGHJ uCPaaYCRgmjq3CjNkJy8zoJ VyeTcyMFxwYXJkXHBsYWluX WOrNlNoG63gXTFyUCTef0Bp obQ8tTBmbOclsSCaTAj6xZM br2Y2vSOpRPZrvkNmeYdquA eiR6p9HNXmvW0hOPUrBCBgF 3SqaE6jTI6yPHJkVLM0kOTk QJ5tp540jEQvgQZlYATcxMl cYdUllvInUKyiK71nvjPvD5 GsrHLhoZTarnQxAhztGA6eU FxwYXJ9 Clinical Information 62-year-old male with (test code = PMHx decompensated HCV [id number]) cirrhosis. Gross Description v8gcbSVnWROuaZLxKANaWuv (test code = rvlTvULSvbKMeA5ZjkilvUP 3712672386) irTX1cGF3alYfbqOAkpRMvN MPhEjUsq2ajv549oNMvz2cn UBBCntxquOl4jUkhS83vw0X 5TwzaV63lrXSoZAW4MHOvRL RhbMNtXYCbHDZ8BMIdbLXsM 9cjEZEtGK1okjmxCCkiLEqp ZFLmuJM9ODKarOHaE6LbTTF cGPakPAFyoem5ZaOlWx4rgX TluFmeLJqfYuiltTkmq6Gcd CBcXGlkIDUxMDAwIFxcZGIg G9TJQAVqIkOhRVQ1DJYfQlZ QSMA3GDTjHdGdTUBVXUAbPG v5VIEmVjOoVvGNEjSmCFCzD PEuCOUhSODoER1uYHymeXBt QKxiAroqGTwsN415MThcSVL tA5YjJ8TwDQijIOW9OVCgMl PoDXNuKD3FUjRyNZdaPbG2D YBoJCy1THn3OI2VDoDhJFIg CyK7SMM4SaTuZIr8RGnbRK9 DXZZ1YJY0KzL6OjPbGEK0Ay bpPZh6OFYeWWgtjpZrGCljT jdeTSbuC42loSFoXQxpeMNy blxmczIwXHBhclxwYXJkXHN tMfKeVHYfV1kbEzLwYFMmSL luXGZzMjJccGFyXHBhcmQgQ TEuICBBQkRPTUVOOyBQQVJB R2IFPKUMAKKuUkdHALHpnCH kKVGuJ6VqgiDiOEQcRYOgHB rhDQO4MQGeT6Kvr7OnG3fpe MV5YAzoaKtuciCsyDBzXXnl YXIgUHJlcGFyZWQgMiBzbGl uAIKrAHKcWQFfMQ8eQ39mLA 23GFC6oN8pbSpuWAYmwnMmK GODx97qxl31u7d3YIY8mU6p qJqvETHnKASuurZ3kP2aUDh tZZOxg8GmMZbnvZbkDFSzDo A6ZXTolNMcOIV5GJ7acFwrR EFsM4AfH6AxwrW1APQnkw1= Disclaimer (test code r3cpzCDyEUTqe1lpTWCveXY = [id number]) uZzEwMzNcZnRuYmpcdWMxIH lxueKtDNuyw6ItD0GhAlHhE FxhbnNpXGRlZmxhbmcxMDMz MHY5jkSpKHQlXHrhPGHnNQg hFq9qgHXeiBisOuRtCPFfw4 zqncKNECpxVsNzM738FOOaH Frfq1zqt4AmCVNatCKki3Z9 HBFOvsxryWr2rKcxX89vb8I 6PadiP1hkQGVvQDMdM0LxZS 3vRRExUzy9RRT7EMN6DBIpC DOvC5LhGE6zOPCnoBDrJPi8 b6mpgHspKOJfOHX6u0gsWJk mjoBsZG5khx0qoCd7d3vtqz QqNBPwMWXhpBBHLRLsG2Dqi JbaVp0pbCa5eNnpGaniUHD8 Goc1HO7mwf10ohl3kZrjJOV igidsDvP7GAbfTVOukhnwRS d0FEqwGQBzsEI4WFApkNIgM 0CpEAEfFE6enoa9HUW7IEmh HJLtMzK5KWQroZIcDMUrnLp uKKddw615LCR3VuRnIV0uN1 Dko7S8sE1aoTWwEJEoyDHsY jHjPSIjnf0veSLaMZefj8Cg IHP5fsH7kKNyzTUkQZXoHU8 3Cguqq5BaVjsmc7PkD31rsP S8QApcz7mkBS6jPlH6rkGhU Uerd4lwwA5tPnT8SVplOX2l ZB0zPLJqxU2ewcyrJFPyZvF nghrwMEQigIurviBiPc4wyV jrSAI0AVleK0gffD7jTwL0D VvsW8figJ6pPSb6XGoqpPT0 QDVncH7vSN6xrktwd6jdNBl hEQhnLMZnxeC7zwU6MRVpmC GmD4LmxW4xKAYxHJ5fojbcb 2ouKMP0WFczLCIqHEY8YuFi VVRoc3Oouya8OcPwz1VgzGV rVWalA69mn580NUTmeiJpY5 xwbGFpblxwbGFpblxmMFxmc qF9KUDavkZto3JyUXLqNZF3 PEleTCxyxJBvRQDciYwms1g cC8WztCFmCIGzIFyvTZElLA ZzMjBcbGFuZzEwMzNcaGlja LxuQVqrUiWvSVXtEFtyW7hk UoIeD4DpQRAfWjCfeRLwB1y bAFgnidNtROPczuTylDQ2WZ xxA5d1FXXkivSjhPw8scAuP uQbJHOjSVZ4DBejpTIfCDCk h6JftfgyaMXtCy5hjQWeBWI yiC9qPKUyWAKtOGibXQ2wgN m1HXCNnGSsaOJsSjYKSPNwG R03fgEjWABQxkyik3A5CFwe VINmo4PwfKYcX5zds5NqUSA cp79sME7ur6B6b9aaSFG7JB 0dl7XsQRAxnBAyjSRkUDSmw 7Qeghahs6CpABSmulCgp2Rt ZCBhbmQgaXRzIHBlcmZvcm1 fgoCdDZHzSNQbJ2KnequfjU sgxgCtKCGhhl7ddfOlAKS4S QIPKDGeNQNbn0HtcC8pcLVB BCF5dYWjdc7kxqRKhMVeQXR mif21PPDoTP8yG0ysLWFcLO YjkrLdaHWuk2CvRTIenAG5z PRhLG4KZzVSp48qAVDuRBLE dhOnEYJcdHakhXD0jsE4wN4 uIChGREEpLlx+IFRoZSBGRE PyVH0ejePlv9MofuLtyYjqZ AMovZHef3YkdDVee5ZsyQey d6LvbJDqxCNwUX7fLAPquub qIAUyIEAORlSXNARlgbO8d7 XhKJFmFTPxXTX4dYtsohg1L MBxhN0rKUIqK6nwhxvvSNim IXSbn3GtqX3quWYBbJDnk2U waYJjhWGQmYImKD2whkSfHF jYYLwNRBB4ttDoBWDfp3VyE PwlF6azI92bkGvqjPn0eVP0 ZCZ3gY2xUgn+IFxwYXJccGF yIEFwcHJvcHJpYXRlbHkgcm ZrK3DbjgJxnK5isPRvcjDmA B5zKX0gV2O2pGYmDAVpgnFj e8adAZcatnJcRlCxbhBhEIX tDBrwNCSqk7JvZBdvCQE6NQ lucyBpbmNsdWRpbmcgSCZFL WPRgACenOYqTNL7MSzvspOr cvLrBO5mfW3dzLhthM2ikDF cvSW4nyngLHQdTCNybGgoAK FmHH7hcEVeSYWwmfLHtWnxu BVjxH6cD8WrSWSeEZZlhh6c GDZauB9eSNnmk6ZccdhoHSF aIKSpBYLaxiVbbn0nGIZxvA JXXY8CQZkjrXOib0SopiJyF 7vNHAR3CWQrOrTtPczpOEWt gWSqvUZhEBHbvd11YRKsjO8 kvZcwOLKbjG8zlW5pcJnmfB 3wTrFjCaJbHBqjIM1yDDFtU 9ykbHSvYKBbFDQcV2myRlOw mE9fxOnsSCbeCqYtHmWfZRd tXPM3jC== Embedded Images (test code = [id number]) [facility] Ofgxh5145-64-41 19:09:58 Test Item Value Reference Range Interpretation Comments Case Report (test code Non-Gynecologic = [id number]) Cytology ?Case: [id number] ?Authorizing Provider: ?Cecil Kirby MD ? ? Collected: ? 03/18/2023 0000 ?Ordering Location: ? ? Cardiology ([facility]) ?Received: ?03/18/2023 0047 ?Pathologist: ? Muthukumarana, ? MD Nikkie ?Specimen: ? ?ABDOMEN ? Final Diagnosis (test p3edtJHlNIVcf4yfAYHwsAY code = [id number]) uZzEwMzNcZnRuYmpcdWMxIH tccnRmMVxlcGljMTAyMDZcY M9rrEhnnIj2pTmgEFRskfH5 hZSmOHxku5krYLR8e3ltkct gKHSgTVbhKz8dbOEooXllCt AoDSPhBLe5kP45JFAhkX9ya PFbNBh3WQFjdUUvomZaByKu UYFqjRHddAO6SLJjJY9olda kLRypBLuyMBXqhzW8QZCvjT ReX6FhLQHnGF0tevpvJVF0D MxvJAVzHCL7QlNoYSRqd3Dz ozg0EmXltTNqOJottKQgerp mczIwXHBhclxiXGZzMjIgQS 6eVQVHY58CFvqqFKZXWWBWF rZAV3yMCCVIIWiXVoieYAKr kFYbGX2qQTrEOXRpSG4WZSN HSGJANC3ZKGIzzht2EXLwZM STZToRRIhPHIYFR1XsIVAXY IoJYE7TUHVIIPpHDKxHRRUc I63AJZYWATxkzNKyDUXfHYF axn35RKE4OjZqm7K5CVMpYo VvVOXvGH4kuWfoTRRqIP4cF NOkP1uswA6wvhs7YkUhEARv MxQ5QWRfgxH3Deo8HQSxIIe fk7iob2WsT7GyaEReyHl9o5 foILIlIhO9iVOgKXfiF4sab rFlfKNqWDNgGPv4tGmlOuJb OKUhg1iscfZuYzIpUIBzHLO jVEZmxUprkxr0oE19TOPzxQ 3swHHqJSfyssVsDmQ7EBivP RNgOeX1FAUucMKaIJIfH9lk ZWQwXGdyZWVuMFxibHVlMCA 9lKayk7D0gOTiaDIzvTsgTk YfGkUeBBFBj5WjQGa5iSnrT 4OkIYArIzY9lGHiPWEuUVtv FFQzZVLhtuH3nN03FArgmqX 2lBIhk5Evh02oc577mG3xfP BzGET1ELVkNVFvkSEkIIPkL ZR7BGAhtZOkQ8chSQZnSQ6m xuzySAqpTIsoDMUwxFA8WFW qbNPsC9XfQHBgNFscGCUmbv w6HwYmFf3uqYLspUsiFWuwn 8ktb8owwKBsIwu3ZIEnFtKj UhjxFJhsg2Ldh4foQJKlcv6 zTPA0hVMpnCrgd8H7rSCcBS TspTSfmpXbUYBtRhR7QIuqS P7oyz09LWXaQKZ6dg5nuERi sIonzzAklCQeNJfoZ3BqKCA af069WHVfR7FsPLSeu6O2pv EcFcCaKXNzzJA9cbG3USQoM Ck0cYUjvzH8xeUpxLIjY6gv vI7rKDZwGL0wjicoa0viHKf xWQyyCOQssQC4syV1LYThfW YqZ1JfpZ1gGUZfRGdnJKTof rz1DbGoZi2yvMEfzWfvLRwa YmtwYWdlXHBnbmNvbnRccGd uZGVjXHBsYWluXHBsYWluXG HtZBZpSfPsnRqxhHnpwJ5sD zLsLlSiTMfbVG7gSLNxX2xn cAWkFVXsSSSsQ0glQbBogA6 jaFxmMVxjZjJcZnMyMFxwYX IgSSBoYXZlIHBlcnNvbmFsb HbvilT7sIP7CGMcLCzgZQTd NFBapXFggl0gpVgpMMMrPG0 kIGFncmVlIHdpdGggYWxsIH S3WEClnNPopYEteWDoEJCad SByZXNpZGVudHMsIGZlbGxv q5Pgk3VesEF9oJ8fv9uqz7L tRPJdwNT5WR12boZ5vV5iME ChUB4zQBNxIK8vkUFtyAAeY GEyd22hyAhzofFhPYDamyWk XHBsYWluXGYyXGZzMjhcbGF uZzEwMzNcaGljaFxmMlxkYm ClZYFlHLbgX0mlYiKnBmOhX MlxIXK1aG== Final Diagnosis r0ncuTIbANBdwQLrVLGqXej Comment (test code = npnBbWIJdlFGtN3BemtdcOV [id number]) uhCN0cDC0kqWchwQKlzFSpX ULkNnMsp8cwj000tZRzx5hx OULYlqlhnLu9nHqxQ00hg1M 7WdriO47veVXkDUN7MWKjQO BusHQyMPKiVCG1JNLgpUXgX 8jrIBCdWE9klmylRDekHXym HWWtyFP9FBMzfCRdK2OpWEV hHTnuJULdsfa7NpRhGy8yaP VyeTcyMFxwYXJkXHBsYWluX IHjNvYjU40zFGTzYMFpj5Pq xjA8xRBtpMpznDYlFTs4tSW np9D3lSHrQQLfrjAehQbqkJ ypF0c3DZIclK4oNAXmKSJwI 1HvhI0gLI0aUHCmDZM3nEWw UJ3kc560tYBqpKGjVISmoAk jKaIptnXuRAavM54uwlJtR6 UniOGvkIRfwzZoFatfSY6mX FxwYXJ9 Clinical Information 62-year-old male with (test code = PMHx decompensated HCV [id number]) cirrhosis. Gross Description d3psdKSpFWJnhRRqNFRrFeu (test code = zgkWcRSUfbFIvE4UbxgnzGR 1353727093) wiJX2aGR6kuPpabBCbcEBmU LVgSpRpf6aka275pRMlv1si EUTImdjojRp4dUhtE31kd1D 1XdcaD65wkKFjEOX4PSYaUI VayBVoHVQpBOQ8UFQdhXQyR 3vqXEGyTZ5hystmLJpzZYfh AYIqmTS7IVRkeLRoL8NwQXD uSGvqTXIqkvn6SwHbGq6zmH WrhYkyAHjfSiatyVoqj8Zeg CBcXGlkIDUxMDAwIFxcZGIg D2WJJTFqTdHzQQV1ANNyGtW WQKV0PDXmCdOcXCSPFVPjNX y5SPPlHtLsLuVGWoVzBQShG CBsOBLeOBTeQW1hGZaxcWFs HLowDcjdWFldG737TMprOQT cK8BkK8ZrNJjyFCV2YAYuBm MxFYTrKZ4LFdXjYVbnUyV4W PNaERa3AMr0KU4MOtAsGMOu ZgY6GCY5QvKkNSz9XMveHG7 DQRJ7URI4IoA5KuTsLXV1Hv csMCw7CIZaUVmtxdMvLOsjX qrkUToaQ60rcTSnLQrqfOJv blxmczIwXHBhclxwYXJkXHN yWbFoRHSvA9flCgBkIOBcAQ luXGZzMjJccGFyXHBhcmQgQ TEuICBBQkRPTUVOOyBQQVJB L7BFVQWAOSEgInwQKMJlwPK hYGSiO7QwnqPvFUJxIRSbNY ueLVG1ZXWpV3Xay3LaC8dee FB4AKcmjQctuiObxRJyRFym YXIgUHJlcGFyZWQgMiBzbGl kXEAbKKRcEEExBY7vI62nVG 07CLE7wU1hdTobSGNfupSmW IRKw88qss95y7z7AMU2oC5g lXdvKVIbVAGmzgM7wJ2zJPx vABPwe0BlBIdtwLvzUYWwRt D6MRHyoZRtOVC4QP3hiSvtM YWwY7EdM1OpjwC1XHDsza3= Disclaimer (test code v1cdiCOpTMNvk2quEPAaeXG = 8462490091) uZzEwMzNcZnRuYmpcdWMxIH zhpfWkWUema6BvI9TbJuGiI FxhbnNpXGRlZmxhbmcxMDMz ITY7qgIrKQJrDOuhKGIwPTr eRe4raNGudLdbVlZaOLHkt6 aufwEZTThfNgGiZ495RJSdZ Gfxx6ndo7ZqOIFooEHca0R0 SMCAtyncyTr9dHhkF48kk7E 9FjuxE4hjJZQvQBYoB2FwWL 0pDQGcIso0PUR1TCE2LXPhT QKcD0FsHH8tMXUwxSLxRLa7 k8ndqUnuWFJsXVN9k9diRMt ulcFnOE9gmo6whIl3y1vvdw MoGXKbXULkcDEADDZvS5Imc WvzCi4xbHp4iHjdNqquHHU5 Ltm5TB2zpq96vsr0tRjzDYQ wcwswPwA6JOidHWOkpuvsPG r4LDpxYRKxqKE2PJDyqFQrK 0SiQURvEU3hekw6XUI8KYkm FFFnElY9KCLjwRCbXSTtsLb kZCfno425ORI3KcCrBN7jO7 Ulw3J5bC0btGNrKXFufNJaY pYfKLEzfw2geYDeFLccu6Rn EGT0umN0yTFacWKzUIMlDV9 4Yvife5WmJvsvq9AiA80tdQ T3TCrty9vzDC3qRrO1gwJwV Pldi5wuxY2cEnB9EQytBJ6g SI1yNIFmnK5hqtwoPFDyPvL oyuusMVRcdKlvbuSyFs0mdI fmNEC4LWaoO5bllF7zLfJ3C AmuT0uebM1uXHy0HWsbbAV2 LBAkiL8dKH6lorgyk2dkNBb yNKijNOIeyyB8nqU1EDQzaD WuL8ZljW0gJGOdIM8vlqkez 0rmOTY7CWjlCIEqUED4TmIb DHUhn3Mnfrp5QxIlk5QejAG iYKjiG79nz508CLPicrEaC0 xwbGFpblxwbGFpblxmMFxmc wH5VIJlcjCeu6VaYAIaDQB3 BZgsSEmqpGWrXBUueItec8m lW2HauOZvXRHpYCwzUUVbNC ZzMjBcbGFuZzEwMzNcaGlja NcpDIpyFpIhCWKpOKdpH0da FxGaC2OeEFIcNzNqvWGpD8o zCQledcVmTXGyszPnsYZ0YQ weL1r8PKZktpFfgPa1orGrS lAhVEAyWDH0IYjdjFEvRZWe f6ZpipwrwEPdEd9kaHXzFQY mbN4gHZHtEUPqSLctGX2goW b1ORHCjTFozBNiNeCHBKEiP L16ffXrPDHSuqyxq6F5JGup SFFea9XdoWZjD4kfe8BnFZC hd07fVT2pw3F2n9hhPBU6PO 2mr7JkIPNkgZJvnCWpDNDjp 3Suyhbhr1GlJQAymcMor9Tr ZCBhbmQgaXRzIHBlcmZvcm1 iksSgYEQjJNWiM7SkpiuoiQ aixgHvYDYbxn1gwuSjBHO2S HFRLTGxRVYiz0OekS6gjIJG XUZ3vETxsn4pgcOSdEXpZXQ jar11CCZcIB9nM0vyVSDhPP KqtsNgtSQlg7LfWKAwjRH5z GGcCO2WTcLRb01qKVMjHHQD mbOaTXEpdFiydOB8apT0oZ3 uIChGREEpLlx+IFRoZSBGRE FzWZ0doxCsd0NwdsZplGtjL IFhgPWlv2JczCGlj0HomJfs a6RvcDPmeHVvPZ3mSJRwart qEBIuKTTFFdGGJLNkaeY5o6 VnKOFtPBFxMQJ6oIpkrnp3O VShfT0xPAGoP8lscuctQYqx QEHmh0XxsI0woYWHpQAyf4X zmMTwuJHUrXFdUP7ueyEuSF kFPLmIXBS8aqNbPIWcw7YfX KtlN7vmS37mmGrdoFz9wSH2 CAZ5nW7qQmc+IFxwYXJccGF yIEFwcHJvcHJpYXRlbHkgcm PxH5HzgiWzdW8uhTPsmeUkD U0qFL8cF3T6pJDlHFQpuwGx q7jnNUohdoFnMcHqdhLmLCX sYClgXWEtn7IlYHkrYPG4TH lucyBpbmNsdWRpbmcgSCZFL MDWrQGbkKWiYWG9TBilszQf jvUiFW6irD5udBehsE8chWB cgRO0fvoqIZJfYQXkiDllZK WvBI0vpVGfXOGbrxPCwYrfa ASohB1bQ8CwLPLiDWGnbz0m WXPvgO4mKRjzo9ZhsqlkVSC bJEOdRPVwafUcgg1pNDGcrQ SZJC2CRJckeMGkx6QoasElT 4rLGCO7YPFaQaHsVmqwNGPv bSJrtMMbQDNayo05TJNwkS6 tdHrdVAWrtC6epW1edGixrE 0oTsLtJjPqCIvoGF9lWUBcP 0tzyWHbMWKuHLMeO4kwMiVo eG7ydEcjOJgwRfNtYtAxGWx fSVN8rH== Embedded Images (test code = [id number]) [facility] Abdominal Ynend2950-77-69 19:09:58 Test Item Value Reference Range Interpretation Comments Case Report (test code Non-Gynecologic = [id number]) Cytology ?Case: [id number] ?Authorizing Provider: ?Cecil Kirby MD ? ? Collected: ? 03/18/2023 0000 ?Ordering Location: ? ? Cardiology ([facility]) ?Received: ?03/18/2023 0047 ?Pathologist: ? Muthukumarana, ? MD Nikkie ?Specimen: ? ?ABDOMEN ? Final Diagnosis (test v7rzxWRfZLWyc0xsBIUkxOO code = [id number]) uZzEwMzNcZnRuYmpcdWMxIH tccnRmMVxlcGljMTAyMDZcY L8jkOenqMf8sUhiFLSjhwG5 cFAaIWrse1otYQI3b1fgmqq mEAZtYPahVq7liKVcvTseFv CjDMVpHNc7jM13TOEyfS0ie ICuYRa7ECJkwWOqdjNeClHc CVIucKRyzKS5SMAfWF3txdl tXIdxIZdaOHYuamA8CEDafM HqB3NgZBMzJO4bhwawKDE3C XezEZLzRKW7TiIcTDEps6Jz xpp0EuQaeVWnDBrtaZLfgfw mczIwXHBhclxiXGZzMjIgQS 4jKYNJP73HHhjnCMDJHTWKK xUIX7dBAGRNPThSLgtkCXDb oVTgBM9xTApUXEExCV6BCUI MWZSIGZ7DSGWxsnz8JQKxFJ VFBOcJIPkLBKOFL1MaHZLIY BbZWW3MNMENFJwZXZeBHUBw Z11DJLRNDLjnlHPlHEPeDOL xnf82DBP1TvDfu7U7CMPmVt FgELNjFC3myOmjSZAcWI1aH NStT1ehdD7pvkb8BbElSSPx GyV0YUKajmB5Jdu6EQFnBTt df9ojm1MiS5XuiHPpmAz5p2 unFEQcAvU6yIMzRKwmW6kcc lOsdRRzBTJmXTw5aRhuHhMn NTRop0lwhgIkYhToWNAjYJE mNVOfvHcgzpi5bG12CNHtlZ 6thOVwXAztnhDbJfE1EVjhS GBjBbT6PCKflPCnGXNqJ1kb ZWQwXGdyZWVuMFxibHVlMCA 9rZuvr4N8aRPalWWwgLjwTw JlQeItXODNv4JtFLe9fCtvM 9TpMSAmNqS9zHCcYJCxDRcp UUFuZSOxqpG0aK80FMlkisY 3tCNik7Pyj10on537xK2vkW OqSAS7KYIrNGKeeOTbBSDsF DR9HURetYUdM3jkDIIdWH2q ifpkDTuiTQvoATVptHQ4PYF jqROdH6RzAAHpDMcwILQhqt f7OkIfQm5lmWMeaIxkVLven 3ruv9nqlHKkHsw0HJIxEmEa NgnpZUlmy1Yoe9uuNZBdqn6 kGMD6qEQvdCkky2T0uIGeGS AorYIkbkXtOWUzLnK8XDmaO R0ygw99ISKwXUN0qa4vsJMl tXrpxsNnfZAyEPnaS9KdWAF ll775IZJeF2LrBFSdy1L8cr LmYmUnXVQecBU7ceX4RBOrB Xz1bZToznJ5rwCnpAJrD1id wS9lOGDlUA1ibcjfa0nuONn nDYagXDYjeXC3gkG3DSMwaK GmV8YpxV6hHHCvDHhpZSJnt km2ZjUzGf7doJGpwNcdTFsm YmtwYWdlXHBnbmNvbnRccGd uZGVjXHBsYWluXHBsYWluXG EuDGUfYgEfhHgzgBpqjO6hZ cEyRjYoPIejMY2hRPFaJ6mq dQUrNDXiEGBmO5chZbXjmS2 jaFxmMVxjZjJcZnMyMFxwYX IgSSBoYXZlIHBlcnNvbmFsb MguknH6fHR5XNPrFVoqTFEf CGNloDYhko9vfXbpUUFxCE1 kIGFncmVlIHdpdGggYWxsIH E2BICxdZZjlNBxxJSjBOKpk SByZXNpZGVudHMsIGZlbGxv e6Gae2AfbHT5fB0ld9emi1Y cHHCrrPQ3MM63jrU8pL3oGG ZgXG0sZERjXZ0vnWXglXZuD MWfh95zcZkxviJpYCNwofOd XHBsYWluXGYyXGZzMjhcbGF uZzEwMzNcaGljaFxmMlxkYm HuLLTiKXjpA5crUvMpOuLhO UhoGYE3oN== Final Diagnosis m9fvnIHiLOAglTInGOGxRly Comment (test code = gubBsKCHglHLnK2MqzmtgFD [id number]) odMI1oTD1aqHyozBAhjSGwE YVuZePhb0euk468fKGab2yw OITGujwypUf6lDegJ80jo2W 3CmmfV15xyQUxQKO2PJGvIH GafHAnQGGuZKK0MKWnkDKjT 2chMMVcXH3ctqwnKBpvGPiq BXJovIK8FEMfhQSkH0PtGAI uAUwqCFHteaj4VcZeRa2bcN VyeTcyMFxwYXJkXHBsYWluX GByMqKsB33oEIEcYPDlk2Ek grI2bVRetRokeBDlSGd1oRS dl4H8uOTgYJTharTavEvmdJ ubF5o9LQZuxE8xLEPcQQEuO 2BpfO8aMY8kQSFoPWB0jFTu BG6xl152mATtrLXwKNGewPb zDvPjvbFgDMpbC06ctrIyF8 CpkEOoxEQtplSvOkhsUZ5mS FxwYXJ9 Clinical Information 62-year-old male with (test code = PMHx decompensated HCV [id number]) cirrhosis. Gross Description c4mytZCbWEEphEZmAZRrYcp (test code = bagQqKSMwyAOvN5NksfnwJS [id number]) khIC3dJA3ooKlzcBZsrVVjV YCfWzZub6hmx442mIHam0vu UVBUlygaeQu9rQciS42jq1T 1XixcF99evPVoJFL8WMCfSM ItxICmJZCoCMY8ORGfgNHrW 4emEJDbKK5tjewlHEfvXMvs KZXreGS7DOTevLSoB0QsRQV hKCncHCVisas3TaWyKx8bmH ZxcScfMUfoNfuviRuaa7Nny CBcXGlkIDUxMDAwIFxcZGIg P0AGFRVnTzPnYYK8NGAaIoZ OSUW2DBBoHyNaIVBIVYRlVB m6TKPhOxNaMgZLLuSjYEEgZ ZKgWTYaYFQwXD6nQAuyuJMb LJqqUeocYAfcO627AYclXUG dM1UqJ4BnISznKPJ0PEFhWk XlONVyUZ5CBzWdPDweZoL3F LCuHCs3DSh8GV5QWxXxZHTa AqW3LBZ2SrWzPGg6FCcdAK1 DMTO3AFF8WsF5OtMeMNP0Fx thGNs2XYEqLUkeyeStHJyiK rpxYFqgQ54bnMAcNKtthASr blxmczIwXHBhclxwYXJkXHN yOwJaNGSdZ7zuNfFvTATiUD luXGZzMjJccGFyXHBhcmQgQ TEuICBBQkRPTUVOOyBQQVJB E3ZZDBKAPVAhXuwSGSLnxMA mFHIiH4EovxXdJKKjSWVhAH eaZRI1ADFzR8Omb9SaP9lby MK8MOhwtUdmxnUqjQWfKHxr YXIgUHJlcGFyZWQgMiBzbGl sHJDyMQMpOVKbZH8dE21eJZ 64QGX4jT0owGulRMKpkwPzT ZLOb05icf18o3i0XAO3sC3c uVnyADEoAPRgbzA1aC4eAMd pALDjg0QoSPxqvXllSCEpBp M4AJMahJJcBNF9IU1vkZttU ALnP4DyO2ZljeB4ZIPxki7= Disclaimer (test code x6yuvYZrATIus9hiFHTocKC = [id number]) uZzEwMzNcZnRuYmpcdWMxIH cjafGkIAuow4TeU9QjQrJzR FxhbnNpXGRlZmxhbmcxMDMz NMR8hwGnJWTaTJswICGaUXj jDb6reVMwnQbgXuFlFAOne8 oqbiHEVYitEjGkI902QKOmA Pgzh5lkv8TvCBKklSMqh9L2 APOVgziwxZe9aLtgE88wc7Z 9UzrcS1lnBLZjBSQaD8IcEH 2jHBOyHtb2VNA6BIN5CIIvA AAcP9IcFU7oMTWjhVZcDJg8 k3mdmYjfWNMiNUV0k2lcUMm btrGsWV5tqb2ejWb7u7lcxj QcLHCzZDMgeTARUCDwQ9Alw OznXc1yjQu9wArkNujrOCN2 Nyc9JU4qrm53abs6qYobHOO ppmeqErQ2YUruCIYwvhnyIW s0SMovDAEnnZT5TOOkjCSmB 0UoGGAcFR2wcrq2MFT5PDuf UJCcAaO4LNMzcUFaQYLqdEz dEJpzc178YOM9MyGdTG2gG7 Ozs9N5aP5alAStNNPvuLCvC lMnPWOauu1wlSNwVSzaw5Sz XEA9lkV6mYVqoZWsSNHuBQ8 2Kbdwp9EuGkmpx5GyX76qvS R0QUavl4fkZK4rUpB5tcSnI Cxof3baeC8aIkL8NFbkES2a TD6iEDFoqC1vnwiyOLDwQzS sjxkoESJciUwwvbVmXq3alL gyKMN0CIgfO9ngaZ4sOlL1F FywZ4ripK9tOTo4UFwxmGI6 YNRtbK6sZW3tbhgsb7icKYf fPTqhMKSppfX8dfO1WPDxgS SbI9UkdS0iEGBlXN8xgwpbg 6cpRFL3WHtuBGBtVXM9KwVs GJByg9Kajtb4XbUos6WsvHX mOHjhZ46cp858PLBevhSmU7 xwbGFpblxwbGFpblxmMFxmc pI0HWNmmzNwp7UzHEZjXWK1 OTdcFZghuDXqWTDoaUyfi9y hG7AjbPMnEQPyWJqdXFKhFL ZzMjBcbGFuZzEwMzNcaGlja LdqVCfvAfAjEXFgEPdaS3la HgHdP3DsDSTfHtJdcWUjP3r fOIasbpBeIRWwlkRjrTL0QZ eyV9l8NWZitqHpzDz3ftRfX vDbRNSiGCY6ZTmsnRNoHBMi l1EwaqlvePHqAi5duYOyNYZ gmM0uQTLaFAScIGzrAU9kmR d4SGHLySWalSVmRjJLPRWtP E84dsLbTIYZdjwtf5X0WQpq WFPax2GncLPmP2lqn7VdJJT tc54vDH6sw0W8v3ofOVY4CM 7rv7UfTJQtbQSbkDZjLWGwj 1Qxaiggh1GcYUFrwgOhe5Yp ZCBhbmQgaXRzIHBlcmZvcm1 gxoHbMMNiRXAyP0HugiagyE dqwtOvFDDnfx1afeWmPUA1V FIBFEGzOEWpv7OnjV2lqQJK TOE9jPUqtj0snhZVlAWyMBT uff49EHNfBE7xT5cfNGVzNI BequHquXYjo9PaIETexZX5i HVeIR4DSjNYt42qUQKwSWWG udNgVHWeiNhcpGI6opG1vQ8 uIChGREEpLlx+IFRoZSBGRE NnYQ2mnwYiv2FubwLoiFrsZ ZYvtOZxq7LzvHNjr3QzjPre v1AnnOExxJBiUF9gFQXfddp yWAEiCSUULtZYBVBakhF8o7 MhNNTeISGyDKP2fFiuxxp0R LToqM6eHYXdZ4sbrmmxKSej ZNAkw0GcoE6agUHRqUAvn7F vmDUzaYSUbXHoHF1tluQcYQ wFCKbCUVU2vtTlLCHid2ZoF NzxL3qsD83drVstdNd9mBX6 USK8vD9jGrw+IFxwYXJccGF yIEFwcHJvcHJpYXRlbHkgcm BjZ9DfcdUfmS8qjPDuniFfV Q5wMK6nF6N2aWMqQGFjtaKj c0ymTTmyrtTcBbItjjAqHOK aCBvcOOIcr0QwPZbgSNG0ZH lucyBpbmNsdWRpbmcgSCZFL TSYiOFsuGRxDLP4MFcvfrEy ljFzEU6pqN3nnWpgiQ3onQN ymME8urkwDNXzAKIyeXwcKQ TyGB0jcOCfTVZitfIUrRhvt WGjfA7mF0KoNXDdGMSnom5d ZURarB1wHCsdx3HcpfyxQHE uLWMtPBLemzAlzz2dYIPgbI KMHE0ZLUkoeSFjh5PuarFoG 3tSZUL9RFJaZoGoRkovYYLh lHSikUOlLLOyzw33OLLliQ8 czXuqNUHdhV0jfU0qqDnlzD 7mNcLnDdYzSOogNS7gJLBxX 7fghCZjCVTtVMBfR1lmHsYu iR6lmOjbTTbyYvLaJpRlFZa xNQK9jW== Embedded Images (test code = 2309297029) [facility] CenterAL[facility] BODY [id number] 20:22:29 Test Item Value Reference Range Interpretation Comments ALBUMIN BF (test code 319.0 mg/dL = 3204598634) LUZMARIA (test code = LUZMARIA) Result interpreted relative to the serum concentration. ? [facility] CenterTotal Protein Body [id number] 07:07:53 Test Item Value Reference Range Interpretation Comments T.PROT BF (test 1053.0 mg/dL code = 7494868432) UNSPUN BODY FLUID Light Yellow COLOR (test code = 1341886785) UNSPUN BODY FLUID Slightly Cloudy CLARITY (test code = 7496070443) SPUN BODY FLUID Light Yellow COLOR (test code = 2902998878) SPUN BODY FLUID Clear CLARITY (test code = 1436269313) Sediment (test code The sediment volume is = 8469124932) <0.1 mLs of the total fluid volume of 5 mLs and its color is red. LUZMARIA (test code = Test developed and LUZMARIA) characteristics determined by [facility] Laboratory Services. [facility] CenterBODY FLUID MANUAL [id number] 06:28:16 Test Item Value Reference Range Interpretation Comments BF SEGS% (test code = 34 % 15464-9) BF LYMPHS% (test code = 20 % 37228-5) BF REACTIVE LYMPHS % 2 % (test code = 01839-2) BF MACROPHAGE% (test code 38 % Si derophages observed = 37984-8) BF MESOS% (test code = 6 % 67477-8) BF #CELLS CNTD (test code 100 cells/uL = 0722509626) [facility] CenterBODY FLUID DIRECT [id number] 05:38:40 Test Item Value Reference Range Interpretation Comments BF COLOR (test Light Yellow code = 4120663603) TURBIDITY (test Slightly Turbid code = 9767863698) BF WBC Count 257 See_Comment [Automated (test code = message] The 7306538942) system which generated this result transmitted reference range : /?L. The reference range was not used to interpret this result as normal/abnormal . BF RBC Count See_Comment [Automated (test code = message] The 2045625153) system which generated this result transmitted reference range : /?L. The reference range was not used to interpret this result as normal/abnormal . LUZMARIA (test code = The reference range LUZMARIA) and other method performance specifications have not been established for this body fluid. ?The test results must be integrated into the clinical context for interpretation. [facility] CenterTROPONIN [id number] 22:07:21 Test Item Value Reference Range Interpretation Comments TROPONIN I (test code = 0.008 ng/mL <=0.034 1386887168) LUZMARIA (test code = LUZMARIA) Reference (Normal) Range (defined by the 99th percentile reference limit): <= 0.034 ng/mL Note: Cardiac troponin begins to rise 3-4 hours after the onset of ischemia. Repeat in 4-6 hours if the sample was drawn within 3-4 hours of the onset of the symptom and found normal. Diagnosis of myocardial injury is made with acute changes in cTn concentrations with at least one serial sample above the 99th percentile upper reference limit (URL), taken together with the patient's clinical presentation. Biotin has been reported to cause a negative bias, interpret results relative to patient's use of biotin. Lab Interpretation Normal (test code = 91741-4) [facility] [id number] 22:07:21 Test Item Value Reference Range Interpretation Comments TROPONIN I (test code = 0.008 ng/mL <=0.034 0071478360) LUZMARIA (test code = LUZMARIA) Reference (Normal) Range (defined by the 99th percentile reference limit): <= 0.034 ng/mL Note: Cardiac troponin begins to rise 3-4 hours after the onset of ischemia. Repeat in 4-6 hours if the sample was drawn within 3-4 hours of the onset of the symptom and found normal. Diagnosis of myocardial injury is made with acute changes in cTn concentrations with at least one serial sample above the 99th percentile upper reference limit (URL), taken together with the patient's clinical presentation. Biotin has been reported to cause a negative bias, interpret results relative to patient's use of biotin. Lab Interpretation Normal (test code = 32057-2) [facility] [id number] 22:07:21 Test Item Value Reference Range Interpretation Comments TROPONIN I (test code = 0.008 ng/mL <=0.034 1838190723) LUZMARIA (test code = LUZMARIA) Reference (Normal) Range (defined by the 99th percentile reference limit): <= 0.034 ng/mL Note: Cardiac troponin begins to rise 3-4 hours after the onset of ischemia. Repeat in 4-6 hours if the sample was drawn within 3-4 hours of the onset of the symptom and found normal. Diagnosis of myocardial injury is made with acute changes in cTn concentrations with at least one serial sample above the 99th percentile upper reference limit (URL), taken together with the patient's clinical presentation. Biotin has been reported to cause a negative bias, interpret results relative to patient's use of biotin. Lab Interpretation Normal (test code = 23203-9) [facility] CenterACT[facility] THRM[facility] [id number] 22:04:20 Test Item Value Reference Range Interpretation Comments APTT Patient (test 27 See_Comment [Automat ed code = 3173-2) message] The system which generated this result transmitted reference range : 23 - 38 Seconds . The reference range was not used to interpr et this result as normal/abnormal . LUZMARIA (test code = LUZMARIA) The [facility] patient population mean normal value for aPTT is 30 seconds. Lab Interpretation Normal (test code = 19725-3) [facility] CenterN-TERMINAL [id number] 22:04:20 Test Item Value Reference Range Interpretation Comments NT-proBNP (test code = 880 pg/mL <=125 H 8214973441) LUZMARIA (test code = LUZMARIA) Biotin has been reported to cause a negative bias, interpret results relative to patient's use of biotin. Lab Interpretation (test Abnormal code = 07457-2) [facility]ACT[facility] TH[facility] [id number] 22:04:20 Test Item Value Reference Range Interpretation Comments APTT Patient (test 27 See_Comment [Automat ed code = 3173-2) message] The system which generated this result transmitted reference range : 23 - 38 Seconds . The reference range was not used to interpr et this result as normal/abnormal . LUZMARIA (test code = LUZMARIA) The [facility] patient population mean normal value for aPTT is 30 seconds. Lab Interpretation Normal (test code = 76939-7) [facility] CenterN-TERMINAL [id number] 22:04:20 Test Item Value Reference Range Interpretation Comments NT-proBNP (test code = 880 pg/mL <=125 H 6004386757) LUZMARIA (test code = LUZMARIA) Biotin has been reported to cause a negative bias, interpret results relative to patient's use of biotin. Lab Interpretation (test Abnormal code = 61536-8) [facility] CenterACT[facility] [id number] 22:04:20 Test Item Value Reference Range Interpretation Comments APTT Patient (test 27 See_Comment [Automat ed code = 3173-2) message] The system which generated this result transmitted reference range : 23 - 38 Seconds . The reference range was not used to interpr et this result as normal/abnormal . LUZMARIA (test code = LUZMARIA) The [facility] patient population mean normal value for aPTT is 30 seconds. Lab Interpretation Normal (test code = 84128-0) [facility] CenterN-TERMINAL [id number] 22:04:20 Test Item Value Reference Range Interpretation Comments NT-proBNP (test code = 880 pg/mL <=125 H 6918392378) LUZMARIA (test code = LUZMARIA) Biotin has been reported to cause a negative bias, interpret results relative to patient's use of biotin. Lab Interpretation (test Abnormal code = 96716-4) [facility]. METABOLIC PANEL (31191)2023-03-17 21:55:35 Test Item Value Reference Range Interpretation Comments NA (test code = 140 mmol/L 135-145 2607128324) K (test code = 4.8 mmol/L 3.5-5.0 0929123885) CL (test code = 110 mmol/L 98-108 H 9275725598) CO2 TOTAL (test code = 23 mmol/L 23-31 0422827036) AGAP (test code = 7 2-16 5110215158) BUN (test code = 29 mg/dL 7-23 H 2535091007) GLUCOSE (test code = 90 mg/dL 70-110 3186725958) CREATININE (test code = 0.92 mg/dL 0.60-1.25 7875947845) TOTAL BILI (test code = 0.5 mg/dL 0.1-1.3 9907036222) CALCIUM (test code = 8.4 mg/dL 8.6-10.6 L 4356933724) T PROTEIN (test code = 6.6 g/dL 6.3-8.2 4466928377) ALBUMIN (test code = 3.1 g/dL 3.5-5.0 L 3008273304) ALK PHOS (test code = 61 U/L 34-122 7415135301) ALTv (test code = 22 U/L 5-50 1742-6) AST(SGOT) (test code = 42 U/L 13-40 H 6464495620) eGFR (test code = 82.8 mL/min/1.73m2 4960708571) LUZMARIA (test code = LUZMARIA) Association of [...] tests). Lab Interpretation Abnormal (test code = 07849-5) [facility]. METABOLIC PANEL (75444)2023-03-17 21:55:35 Test Item Value Reference Range Interpretation Comments NA (test code = 140 mmol/L 135-145 7993117577) K (test code = 4.8 mmol/L 3.5-5.0 7411549497) CL (test code = 110 mmol/L 98-108 H 8699303441) CO2 TOTAL (test code = 23 mmol/L 23-31 3197220890) AGAP (test code = 7 2-16 1084349065) BUN (test code = 29 mg/dL 7-23 H 2442201387) GLUCOSE (test code = 90 mg/dL 70-110 4399565654) CREATININE (test code = 0.92 mg/dL 0.60-1.25 2782577753) TOTAL BILI (test code = 0.5 mg/dL 0.1-1.6 0592619842) CALCIUM (test code = 8.4 mg/dL 8.6-10.6 L 4668979042) T PROTEIN (test code = 6.6 g/dL 6.3-8.2 7130927135) ALBUMIN (test code = 3.1 g/dL 3.5-5.0 L 6630957624) ALK PHOS (test code = 61 U/L 34-122 8630852436) ALTv (test code = 22 U/L 5-50 1742-6) AST(SGOT) (test code = 42 U/L 13-40 H 6707322673) eGFR (test code = 82.8 mL/min/1.73m2 5396797211) LUZMARIA (test code = LUZMARIA) Association of [...] tests). Lab Interpretation Abnormal (test code = 31186-4) [facility]. METABOLIC PANEL (05918)2023-03-17 21:55:35 Test Item Value Reference Range Interpretation Comments NA (test code = 140 mmol/L 135-145 4118139522) K (test code = 4.8 mmol/L 3.5-5.0 7247678667) CL (test code = 110 mmol/L 98-108 H 3747669024) CO2 TOTAL (test code = 23 mmol/L 23-31 2146835532) AGAP (test code = 7 2-16 8037814244) BUN (test code = 29 mg/dL 7-23 H 2568339965) GLUCOSE (test code = 90 mg/dL 70-110 9670761015) CREATININE (test code = 0.92 mg/dL 0.60-1.25 8046508565) TOTAL BILI (test code = 0.5 mg/dL 0.1-1.2 8661776113) CALCIUM (test code = 8.4 mg/dL 8.6-10.6 L 5671078637) T PROTEIN (test code = 6.6 g/dL 6.3-8.2 4986376231) ALBUMIN (test code = 3.1 g/dL 3.5-5.0 L 6896278789) ALK PHOS (test code = 61 U/L 34-122 5430478580) ALTv (test code = 22 U/L 5-50 1742-6) AST(SGOT) (test code = 42 U/L 13-40 H 5603327368) eGFR (test code = 82.8 mL/min/1.73m2 7052774628) LUZMARIA (test code = LUZMARIA) Association of [...] tests). Lab Interpretation Abnormal (test code = 75342-0) [facility] CenterPROTHROMBIN TIME / [id number] 21:51:37 Test Item Value Reference Range Interpretation Comments PROTIME PATIENT (test 12.8 See_Comment [Auto mated message] code = 5964-2) The system [employer] generated this result transmitted ref erence range: 12.0 - 1 4.7 Seconds. The re ference range was not u sed to interpret this result as normal/abnor mal. INR (test code = 6301-6) 1.0 Nor mal INR <1.1; Warfarin Therap eutic range 2.0 to 3. 0 or 2.5 to 3.5, dep ending upon the indica tions. Lab Interpretation (test Normal code = 06249-9) [facility] CenterCB WITH [id number] 21:36:17 Test Item Value Reference Range Interpretation Comments WBC (test code = 3.99 See_Comment L [Automated 6690-2) message] The sy stem which generated this result transmitted reference range : 4.20 - 10.70 10*3/?L. The reference range was not used to interpret this result as normal/abnormal . RBC (test code = 3.20 See_Comment L [Automated 699-8) message] The sy stem which generated this result transmitted reference range : 4.26 - 5.52 10*6/?L. The reference range was not used to interpret this result as normal/abnormal . HGB (test code = 8.0 g/dL 12.2-16.4 L 718-7) HCT (test code = 26.3 % 38.4-49.3 L 4544-3) MCV (test code = 82.2 fL 81.7-95.6 787-2) MCH (test code = 25.0 pg 26.1-32.7 L 785-6) MCHC (test code = 30.4 g/dL 31.2-35.0 L 786-4) RDW-SD (test code = 45.8 fL 38.5-51.6 74624-7) RDW-CV (test code = 15.3 % 12.1-15.4 788-0) PLT (test code = 188 See_Comment [Automated 777-3) message] The sy stem which generated this result transmitted reference range : 150 - 328 10*3/ ?L. The reference r brianne was not used to interpret this result as normal/abnormal . MPV (test code = 10.5 fL 9.8-13.0 54143-6) NRBC/100 WBC (test 0.0 See_Comment [Automat ed code = 0048511328) message] The system which generated this result transmitted reference range : 0.0 - 10.0 /100 WBCs. The refer ence range was not u sed to interpret th is result as normal/abnormal . NRBC x10^3 (test code See_Comment [Auto mated = 9382187177) message] The s ystem which generated this result transmitted reference range : 10*3/?L. The reference range was not used to interpret this result as normal/abnormal . GRAN MAT (NEUT) % 74.6 % (test code = 770-8) IMM GRAN % (test code 0.50 % = 3413471923) LYMPH % (test code = 13.5 % 736-9) MONO % (test code = 8.3 % 5905-5) EOS % (test code = 2.3 % 713-8) BASO % (test code = 0.8 % 706-2) GRAN MAT x10^3(ANC) 2.98 10*3/uL 1.99-6.95 (test code = 0927882123) IMM GRAN x10^3 (test 0.00-0.06 code = 7792276982) LYMPH x10^3 (test code 0.54 10*3/uL 1.09-3.23 L = 731-0) MONO x10^3 (test code 0.33 10*3/uL 0.36-1.02 L = 742-7) EOS x10^3 (test code = 0.09 10*3/uL 0.06-0.53 711-2) BASO x10^3 (test code 0.03 10*3/uL 0.01-0.09 = 704-7) Lab Interpretation Abnormal (test code = 72998-0) [facility] CenterGLYCOSYLATED HEMOGLOBIN (A1C)2023-01-03 16:18:47 Test Item Value Reference Range Interpretation Comments HGB A1C (test code = 4.9 % 4.0-5.7 4548-4) LUZMARIA (test code = LUZMARIA) Reference RangesNormal: <5.7%Prediabetes: 5.7 - 6.4%Diabetes: > 6.5% Lab Interpretation (test Normal code = 12044-5) [facility] CenterGLYCOSYLATED HEMOGLOBIN (A1C)2023-01-03 16:18:47 Test Item Value Reference Range Interpretation Comments HGB A1C (test code = 4.9 % 4.0-5.7 4548-4) LUZMARIA (test code = LUZMARIA) Reference RangesNormal: <5.7%Prediabetes: 5.7 - 6.4%Diabetes: > 6.5% Lab Interpretation (test Normal code = 15333-9) [facility] CenterVITAMIN D, [id number] 14:02:10 Test Item Value Reference Range Interpretation Comments VIT D 25OH (test code = 20 ng/mL 25-80 L 37457-1) LUZMARIA (test code = LUZMARIA) Deficiency: <20 ng/mLInsufficiency: 20-24 ng/mLOptimal: 25-80 ng/mL Lab Interpretation (test Abnormal code = 81801-3) [facility] CenterVITAMIN D, [id number] 14:02:10 Test Item Value Reference Range Interpretation Comments VIT D 25OH (test code = 20 ng/mL 25-80 L 07742-0) LUZMARIA (test code = LUZMARIA) Deficiency: <20 ng/mLInsufficiency: 20-24 ng/mLOptimal: 25-80 ng/mL Lab Interpretation (test Abnormal code = 28256-2) [facility] CenterVITAMIN D, [id number] 14:02:10 Test Item Value Reference Range Interpretation Comments VIT D 25OH (test code = 20 ng/mL 25-80 L 68660-2) LUZMARIA (test code = LUZMARIA) Deficiency: <20 ng/mLInsufficiency: 20-24 ng/mLOptimal: 25-80 ng/mL Lab Interpretation (test Abnormal code = 72955-1) [facility] CenterVIT[facility]IN D, [id number] 14:02:10 Test Item Value Reference Range Interpretation Comments VIT D 25OH (test code = 20 ng/mL 25-80 L 65060-3) LUZMARIA (test code = LUZMARIA) Deficiency: <20 ng/mLInsufficiency: 20-24 ng/mLOptimal: 25-80 ng/mL Lab Interpretation (test Abnormal code = 31416-9) [facility] CenterTHYROID STIMULATING [id number] 05:26:34 Test Item Value Reference Range Interpretation Comments TSH (test code = 1.59 See_Comment [Automated message] [id number]) The system [employer] generated this result transmitted ref erence range: 0.45 - 4 .70 mIU/L. The refe rence range was not u sed to interpret this result as normal/abnor mal. Lab Interpretation (test Normal code = 36443-0) [facility] CenterTHYROID STIMULATING [id number] 05:26:34 Test Item Value Reference Range Interpretation Comments TSH (test code = 1.59 See_Comment [Automated message] [id number]) The system [employer] generated this result transmitted ref erence range: 0.45 - 4 .70 mIU/L. The refe rence range was not u sed to interpret this result as normal/abnor mal. Lab Interpretation (test Normal code = 99916-5) [facility] [id number] 05:26:34 Test Item Value Reference Range Interpretation Comments TSH (test code = 1.59 See_Comment [Automated message] [id number]) The system [employer] generated this result transmitted ref erence range: 0.45 - 4 .70 mIU/L. The refe rence range was not u sed to interpret this result as normal/abnor mal. Lab Interpretation (test Normal code = 84622-1) [facility] [id number] 05:26:34 Test Item Value Reference Range Interpretation Comments TSH (test code = 1.59 See_Comment [Automated message] [id number]) The system [employer] generated this result transmitted ref erence range: 0.45 - 4 .70 mIU/L. The refe rence range was not u sed to interpret this result as normal/abnor mal. Lab Interpretation (test Normal code = 35208-3) [facility] [id number] 05:26:13 Test Item Value Reference Range Interpretation Comments PSA (test code = 0.37 ng/mL <=4.00 [id number]) LUZMARIA (test code = LUZMARIA) Biotin has been reported to cause a negative bias, interpret results relative to patient's use of biotin. Lab Interpretation (test Normal code = 58015-2) [facility] [id number] 05:26:13 Test Item Value Reference Range Interpretation Comments PSA (test code = 0.37 ng/mL <=4.00 [id number]) LUZMARIA (test code = LUZMARIA) Biotin has been reported to cause a negative bias, interpret results relative to patient's use of biotin. Lab Interpretation (test Normal code = 26505-2) [facility] [id number] 05:26:13 Test Item Value Reference Range Interpretation Comments PSA (test code = 0.37 ng/mL <=4.00 [id number]) LUZMARIA (test code = LUZMARIA) Biotin has been reported to cause a negative bias, interpret results relative to patient's use of biotin. Lab Interpretation (test Normal code = 45148-8) [facility] [id number] 05:26:13 Test Item Value Reference Range Interpretation Comments PSA (test code = 0.37 ng/mL <=4.00 [id number]) LUZMARIA (test code = LUZMARIA) Biotin has been reported to cause a negative bias, interpret results relative to patient's use of biotin. Lab Interpretation (test Normal code = 03456-5) [facility] WITH [id number] 05:19:52 Test Item Value Reference Range Interpretation Comments WBC (test code = 3.70 See_Comment L [Automated 1036-2) message] The sy stem which generated this result transmitted reference range : 4.20 - 10.70 10*3/?L. The reference range was not used to interpret this result as normal/abnormal . RBC (test code = 3.19 See_Comment L [Automated 679-8) message] The sy stem which generated this result transmitted reference range : 4.26 - 5.52 10*6/?L. The reference range was not used to interpret this result as normal/abnormal . HGB (test code = 8.3 g/dL 12.2-16.4 L 718-7) HCT (test code = 27.2 % 38.4-49.3 L 4544-3) MCV (test code = 85.3 fL 81.7-95.6 787-2) MCH (test code = 26.0 pg 26.1-32.7 L 785-6) MCHC (test code = 30.5 g/dL 31.2-35.0 L 786-4) RDW-SD (test code = 43.4 fL 38.5-51.6 32945-2) RDW-CV (test code = 14.0 % 12.1-15.4 788-0) PLT (test code = 173 See_Comment [Automated 777-3) message] The sy stem which generated this result transmitted reference range : 150 - 328 10*3/ ?L. The reference r brianne was not used to interpret this result as normal/abnormal . MPV (test code = 12.4 fL 9.8-13.0 00457-6) NRBC/100 WBC (test 0.0 See_Comment [Automat ed code = 7121973472) message] The system which generated this result transmitted reference range : 0.0 - 10.0 /100 WBCs. The refer ence range was not u sed to interpret th is result as normal/abnormal . NRBC x10^3 (test code See_Comment [Auto mated = 1987579091) message] The s ystem which generated this result transmitted reference range : 10*3/?L. The reference range was not used to interpret this result as normal/abnormal . GRAN MAT (NEUT) % 73.4 % (test code = 770-8) IMM GRAN % (test code 0.30 % = 0987603719) LYMPH % (test code = 16.5 % 736-9) MONO % (test code = 7.3 % 5905-5) EOS % (test code = 1.1 % 713-8) BASO % (test code = 1.4 % 706-2) GRAN MAT x10^3(ANC) 2.72 10*3/uL 1.99-6.95 (test code = 2342327866) IMM GRAN x10^3 (test 0.00-0.06 code = 1498926600) LYMPH x10^3 (test code 0.61 10*3/uL 1.09-3.23 L = 731-0) MONO x10^3 (test code 0.27 10*3/uL 0.36-1.02 L = 742-7) EOS x10^3 (test code = 0.04 10*3/uL 0.06-0.53 L 711-2) BASO x10^3 (test code 0.05 10*3/uL 0.01-0.09 = 704-7) Lab Interpretation Abnormal (test code = 11604-7) [facility] WITH [id number] 05:19:52 Test Item Value Reference Range Interpretation Comments WBC (test code = 3.70 See_Comment L [Automated 6690-2) message] The sy stem which generated this result transmitted reference range : 4.20 - 10.70 10*3/?L. The reference range was not used to interpret this result as normal/abnormal . RBC (test code = 3.19 See_Comment L [Automated 789-8) message] The sy stem which generated this result transmitted reference range : 4.26 - 5.52 10*6/?L. The reference range was not used to interpret this result as normal/abnormal . HGB (test code = 8.3 g/dL 12.2-16.4 L 718-7) HCT (test code = 27.2 % 38.4-49.3 L 4544-3) MCV (test code = 85.3 fL 81.7-95.6 787-2) MCH (test code = 26.0 pg 26.1-32.7 L 785-6) MCHC (test code = 30.5 g/dL 31.2-35.0 L 786-4) RDW-SD (test code = 43.4 fL 38.5-51.6 27740-3) RDW-CV (test code = 14.0 % 12.1-15.4 788-0) PLT (test code = 173 See_Comment [Automated 777-3) message] The sy stem which generated this result transmitted reference range : 150 - 328 10*3/ ?L. The reference r brianne was not used to interpret this result as normal/abnormal . MPV (test code = 12.4 fL 9.8-13.0 24612-6) NRBC/100 WBC (test 0.0 See_Comment [Automat ed code = 2763641435) message] The system which generated this result transmitted reference range : 0.0 - 10.0 /100 WBCs. The refer ence range was not u sed to interpret th is result as normal/abnormal . NRBC x10^3 (test code See_Comment [Auto mated = 5577826303) message] The s ystem which generated this result transmitted reference range : 10*3/?L. The reference range was not used to interpret this result as normal/abnormal . GRAN MAT (NEUT) % 73.4 % (test code = 770-8) IMM GRAN % (test code 0.30 % = 5202256685) LYMPH % (test code = 16.5 % 736-9) MONO % (test code = 7.3 % 5905-5) EOS % (test code = 1.1 % 713-8) BASO % (test code = 1.4 % 706-2) GRAN MAT x10^3(ANC) 2.72 10*3/uL 1.99-6.95 (test code = 6053721513) IMM GRAN x10^3 (test 0.00-0.06 code = 4299072527) LYMPH x10^3 (test code 0.61 10*3/uL 1.09-3.23 L = 731-0) MONO x10^3 (test code 0.27 10*3/uL 0.36-1.02 L = 742-7) EOS x10^3 (test code = 0.04 10*3/uL 0.06-0.53 L 711-2) BASO x10^3 (test code 0.05 10*3/uL 0.01-0.09 = 704-7) Lab Interpretation Abnormal (test code = 27923-1) [facility] METABOLIC PANEL (NA, K, CL, CO2, GLUCOSE, BUN, CREATININE, CA)2023-01-03 04:54:11 Test Item Value Reference Range Interpretation Comments NA (test code = 142 mmol/L 135-145 7441882932) K (test code = 4.2 mmol/L 3.5-5.0 4250149070) CL (test code = 113 mmol/L 98-108 H 5349732579) CO2 TOTAL (test code = 23 mmol/L 23-31 9775502165) AGAP (test code = 6 2-16 5597609089) BUN (test code = 21 mg/dL 7-23 3565439084) GLUCOSE (test code = 114 mg/dL 70-110 H 4501806389) CREATININE (test code = 0.80 mg/dL 0.60-1.25 4589478737) CALCIUM (test code = 7.9 mg/dL 8.6-10.6 L 1367271112) eGFR (test code = 97.3 mL/min/1.73m2 2989489169) LUZMARIA (test code = LUZMARIA) Association of [...] tests). Lab Interpretation Abnormal (test code = 70382-5) [facility] METABOLIC PANEL (NA, K, CL, CO2, GLUCOSE, BUN, CREATININE, CA)2023-01-03 04:54:11 Test Item Value Reference Range Interpretation Comments NA (test code = 142 mmol/L 135-145 6735058631) K (test code = 4.2 mmol/L 3.5-5.0 7334033188) CL (test code = 113 mmol/L 98-108 H 1034495861) CO2 TOTAL (test code = 23 mmol/L 23-31 4907442978) AGAP (test code = 6 2-16 5774978994) BUN (test code = 21 mg/dL 7-23 1071360105) GLUCOSE (test code = 114 mg/dL 70-110 H 4125604764) CREATININE (test code = 0.80 mg/dL 0.60-1.25 4705951079) CALCIUM (test code = 7.9 mg/dL 8.6-10.6 L 8199286342) eGFR (test code = 97.3 mL/min/1.73m2 3733182153) LUZMARIA (test code = LUZMARIA) Association of [...] tests). Lab Interpretation Abnormal (test code = 84385-2) [facility] (ALB,T.PRO,BILI T,BU/BC,ALT,AST,ALK PHOS)2023-01-03 04:53:51 Test Item Value Reference Range Interpretation Comments TOTAL BILI (test code = 9202334837) 0.4 mg/dL 0.1-1.1 BILI UNCON (test code = 4957496944) 0.2 mg/dL 0.1-1.1 BILI CONJ (test code = 4736497612) 0.0 mg/dL 0.0-0.3 T PROTEIN (test code = 1498172768) 6.6 g/dL 6.3-8.2 ALBUMIN (test code = 4741793914) 3.3 g/dL 3.5-5.0 L ALK PHOS (test code = 8134425849) 67 U/L 34-122 ALTv (test code = 1742-6) 28 U/L 5-50 AST(SGOT) (test code = 4271069027) 52 U/L 13-40 H Lab Interpretation (test code = Abnormal 36660-0) [facility]03945[facility] (ALB,T.PRO,BILI T,BU/BC,ALT,AST,ALK PHOS)2023-01-03 04:53:51 Test Item Value Reference Range Interpretation Comments TOTAL BILI (test code = 6564842509) 0.4 mg/dL 0.1-1.1 BILI UNCON (test code = 7320181607) 0.2 mg/dL 0.1-1.1 BILI CONJ (test code = 7031848769) 0.0 mg/dL 0.0-0.3 T PROTEIN (test code = 8444532331) 6.6 g/dL 6.3-8.2 ALBUMIN (test code = 4435277264) 3.3 g/dL 3.5-5.0 L ALK PHOS (test code = 2669018021) 67 U/L 34-122 ALTv (test code = 1742-6) 28 U/L 5-50 AST(SGOT) (test code = 4832088293) 52 U/L 13-40 H Lab Interpretation (test code = Abnormal 77400-0) [facility] CULTURE [id number] 13:01:59 Test Item Value Reference Range Interpretation Comments Blood Culture-Aerobic No organisms No growth Previo us (test code = 45970-5) isolated prelim inary verified result was Culture In Progress on 10/05/[address] [place], [place] [address]Previou s preliminary verified result was No growth a t 24 hours on 10/06/[address] [place], [place] [address]Previou s preliminary verified result was No growth a t 48 hours on 10/07/[address] [place], [place] [address]Previ s preliminary verified result was No growth a t 72 hours on 10/08/[address] [place] [address] Blood No organisms No growth Previous Culture-Anaerobic isolated preliminar y (test code = 40374-3) verifi ed result was Culture In Progress on 10/05/[address] [place], [place] [address]Previou s preliminary verified result was No growth a t 24 hours on 10/06/[address] [place], [place] [address]Previou s preliminary verified result was No growth a t 48 hours on 10/07/2022 at [facility] CSTPreviou s preliminary verified result was No growth a t 72 hours on 10/08/[address] [place] [address] Lab Interpretation Normal (test code = 85143-4) [facility] CULTURE [id number] 13:01:59 Test Item Value Reference Range Interpretation Comments Blood Culture-Aerobic No organisms No growth Previo us (test code = 32905-9) isolated prelim inary verified result was Culture In Progress on 10/05/2022 at [facility] CSTPreviou s preliminary verified result was No growth a t 24 hours on 10/06/2022 at [facility] CSTPreviou s preliminary verified result was No growth a t 48 hours on 10/07/2022 at [facility] CSTPreviou s preliminary verified result was No growth a t 72 hours on 10/08/2022 at [address] [employer] Blood No organisms No growth Previous Culture-Anaerobic isolated preliminar y (test code = 78301-7) verifi ed result was Culture In Progress on 10/05/2022 at 1002 CSTPreviou s preliminary verified result was No growth a t 24 hours on 10/06/2022 at 0701 CSTPreviou s preliminary verified result was No growth a t 48 hours on 10/07/2022 at 0701 CSTPreviou s preliminary verified result was No growth a t 72 hours on 10/08/2022 at [facility] Lab Interpretation Normal (test code = 03398-6) [facility] METABOLIC PANEL (NA, K, CL, CO2, GLUCOSE, BUN, CREATININE, CA)2022-10-07 11:38:26 Test Item Value Reference Range Interpretation Comments NA (test code = 136 mmol/L 135-145 0173622507) K (test code = 4.3 mmol/L 3.5-5.0 Slight 4337352310) hemolysis CL (test code = 101 mmol/L 98-108 9954134327) CO2 TOTAL (test code 32 mmol/L 23-31 H = 7193631618) AGAP (test code = 2-16 7387651903) BUN (test code = 23 mg/dL 7-23 Slight 7496027598) hemolysis GLUCOSE (test code = 105 mg/dL 70-110 5950536020) CREATININE (test code 0.65 mg/dL 0.60-1.25 = 9341897649) CALCIUM (test code = 7.7 mg/dL 8.6-10.6 L 3858333566) eGFR (test code = mL/min/1.73m2 0541989642) LUZMARIA (test code = LUZMARIA) Association of Glomerular Filtration Rate (GFR) and Staging of Kidney Disease* + -----+ --------+ +| GFR (mL/min/1.73 m2) ?| With Kidney Damage ?| ?Without Kidney Damage+ +------- +---- --+| ?>90 ?| ?Stage one ?| ? Normal ?+ ------+ ---------+--------- +| ?60-89 ?| ?Stage two ?| ? Decreased GFR ? + -----+ --------+ +| ?30-59 ?| ?Stage three ?| ? Stage three ? + -----+ --------+ +| ?15-29 ?| ?Stage four ? | ? Stage four ?+ ------+ ---------+--------- +| ?<15 (or dialysis) ? ?| ?Stage five ? | ? Stage five ?+ ------+ ---------+--------- + *Each stage assumes the associated GFR [...] tests). Lab Interpretation Abnormal (test code = 33560-5) [facility] 11:38:26 Test Item Value Reference Range Interpretation Comments MAGNESIUM (test code = 6446478667) 2.0 mg/dL 1.7-2.4 Lab Interpretation (test code = Normal 34844-9) [facility]20[facility] 11:38:26 Test Item Value Reference Range Interpretation Comments PHOSPHORUS (test code = 4099622447) 2.6 mg/dL 2.5-5.0 Lab Interpretation (test code = Normal 73033-1) [facility] (74511) (ALB,T.PRO,BILI T,BU/BC,ALT,AST,ALK PHOS)2022-10-07 11:38:26 Test Item Value Reference Range Interpretation Comments TOTAL BILI (test code = 5550639504) 0.4 mg/dL 0.1-1.1 BILI UNCON (test code = 3437658802) 0.2 mg/dL 0.1-1.1 BILI CONJ (test code = 0098767354) 0.0 mg/dL 0.0-0.3 T PROTEIN (test code = 2253652019) 6.0 g/dL 6.3-8.2 L ALBUMIN (test code = 0987815177) 2.9 g/dL 3.5-5.0 L ALK PHOS (test code = 2872905608) 55 U/L 34-122 ALTv (test code = 1742-6) 21 U/L 5-50 AST(SGOT) (test code = 2297848423) 63 U/L 13-40 H Lab Interpretation (test code = Abnormal 72328-9) [facility]20[facility] 11:29:26 Test Item Value Reference Range Interpretation Comments Fibrinogen (test code = 4278153562) 292 mg/dL 167-453 Lab Interpretation (test code = Normal 50969-7) [facility] THRM[facility] [id number] 11:29:26 Test Item Value Reference Range Interpretation Comments APTT Patient (test code = See_Comment [ Automated message] 3173-2) The system whic h generated this result transmitted ref erence range: 26 - 36 Seconds. The re ference range was not u sed to interpret this result as normal/abnor mal. Lab Interpretation (test Normal code = 93045-8) [facility] CenterProthrombin Time / [id number] 11:29:26 Test Item Value Reference Range Interpretation Comments [...] tions. Lab Interpretation (test Normal code = 28627-6) [facility] WITH [id number] 11:21:26 Test Item Value Reference Range Interpretation Comments WBC (test code = See_Comment [Automated 1772-2) message] The sy stem which generated this result transmitted reference range : 4.20 - 10.70 10*3/?L. The reference range was not used to interpret this result as normal/abnormal . RBC (test code = See_Comment L [Automated 961-8) message] The sy stem which generated this result transmitted reference range : 4.26 - 5.52 10*6/?L. The reference range was not used to interpret this result as normal/abnormal . HGB (test code = 7.8 g/dL 12.2-16.4 L 718-7) HCT (test code = 23.7 % 38.4-49.3 L 4544-3) MCV (test code = 87.8 fL 81.7-95.6 787-2) MCH (test code = 28.9 pg 26.1-32.7 785-6) MCHC (test code = 32.9 g/dL 31.2-35.0 786-4) RDW-SD (test code = 47.8 fL 38.5-51.6 49264-9) RDW-CV (test code = 15.0 % 12.1-15.4 788-0) PLT (test code = See_Comment L [Automated 777-3) message] The sy stem which generated this result transmitted reference range : 150 - 328 10*3/ ?L. The reference r brianne was not used to interpret this result as normal/abnormal . MPV (test code = 11.0 fL 9.8-13.0 57679-3) NRBC/100 WBC (test See_Comment [Automat ed code = 9845931895) message] The system which generated this result transmitted reference range : 0.0 - 10.0 /100 WBCs. The refer ence range was not u sed to interpret th is result as normal/abnormal . NRBC x10^3 (test code See_Comment [Auto mated = 4691412074) message] The s ystem which generated this result transmitted reference range : 10*3/?L. The reference range was not used to interpret this result as normal/abnormal . GRAN MAT (NEUT) % 71.7 % (test code = 770-8) IMM GRAN % (test code 0.20 % = 0748204002) LYMPH % (test code = 14.3 % 736-9) MONO % (test code = 9.4 % 5905-5) EOS % (test code = 3.7 % 713-8) BASO % (test code = 0.7 % 706-2) GRAN MAT x10^3(ANC) 3.12 10*3/uL 1.99-6.95 (test code = 6332113081) IMM GRAN x10^3 (test 0.00-0.06 code = 4347190703) LYMPH x10^3 (test code 0.62 10*3/uL 1.09-3.23 L = 731-0) MONO x10^3 (test code 0.41 10*3/uL 0.36-1.02 = 742-7) EOS x10^3 (test code = 0.16 10*3/uL 0.06-0.53 711-2) BASO x10^3 (test code 0.03 10*3/uL 0.01-0.09 = 704-7) Lab Interpretation Abnormal (test code = 66635-6) [facility] METABOLIC PANEL (NA, K, CL, CO2, GLUCOSE, BUN, CREATININE, CA)2022-10-06 11:51:22 Test Item Value Reference Range Interpretation Comments NA (test code = 137 mmol/L 135-145 2685792948) K (test code = 4.0 mmol/L 3.5-5.0 7231136893) CL (test code = 103 mmol/L 98-108 8141392369) CO2 TOTAL (test code = 30 mmol/L 23-31 1903920705) AGAP (test code = 2-16 6210788600) BUN (test code = 23 mg/dL 7-23 2588654444) GLUCOSE (test code = 100 mg/dL 70-110 9427029546) CREATININE (test code = 0.72 mg/dL 0.60-1.25 3619804825) CALCIUM (test code = 7.4 mg/dL 8.6-10.6 L 8678759790) eGFR (test code = mL/min/1.73m2 1460966172) LUZMARIA (test code = LUZMARIA) Association of [...] tests). Lab Interpretation Abnormal (test code = 54961-4) [facility] 11:51:22 Test Item Value Reference Range Interpretation Comments MAGNESIUM (test code = 1952826791) 1.8 mg/dL 1.7-2.4 Lab Interpretation (test code = Normal 73454-9) [facility]20[facility] 11:51:22 Test Item Value Reference Range Interpretation Comments PHOSPHORUS (test code = 7584851670) 1.7 mg/dL 2.5-5.0 L Lab Interpretation (test code = Abnormal 79933-9) [facility] (04872) (ALB,T.PRO,BILI T,BU/BC,ALT,AST,ALK PHOS)2022-10-06 11:51:22 Test Item Value Reference Range Interpretation Comments TOTAL BILI (test code = 5501169545) 0.2 mg/dL 0.1-1.1 BILI UNCON (test code = 8789422715) 0.1 mg/dL 0.1-1.1 BILI CONJ (test code = 7226240607) 0.0 mg/dL 0.0-0.3 T PROTEIN (test code = 4136637605) 5.8 g/dL 6.3-8.2 L ALBUMIN (test code = 0034770911) 2.8 g/dL 3.5-5.0 L ALK PHOS (test code = 6946173157) 55 U/L 34-122 ALTv (test code = 1742-6) 17 U/L 5-50 AST(SGOT) (test code = 8280259025) 48 U/L 13-40 H Lab Interpretation (test code = Abnormal 16094-1) [facility] 11:27:21 Test Item Value Reference Range Interpretation Comments Fibrinogen (test code = 0377461802) 296 mg/dL 167-453 Lab Interpretation (test code = Normal 06136-3) [facility] THRM[facility] [id number] 11:27:21 Test Item Value Reference Range Interpretation Comments APTT Patient (test code = See_Comment [ Automated message] 3173-2) The system [employer] generated this result transmitted ref erence range: 26 - 36 Seconds. The re ference range was not u sed to interpret this result as normal/abnor mal. Lab Interpretation (test Normal code = 95158-2) [facility] CenterProthrombin Time / [id number] 11:27:21 Test Item Value Reference Range Interpretation Comments PROTIME PATIENT (test See_Comment H [Auto mated message] code = 5964-2) The system [employer] generated this result transmitted ref erence range: 10.1 - 1 2.6 Seconds. The reference range was not used to int erpret this result as normal/abnormal . INR (test code = 6301-6) Nor mal INR <1.1; Warfarin Therap eutic range 2.0 to 3. 0 or 2.5 to 3.5, dep ending upon the indica tions. Lab Interpretation (test Abnormal code = 89779-7) [facility] WITH [id number] 11:21:59 Test Item Value Reference Range Interpretation Comments WBC (test code = See_Comment [Automated 7190-2) message] The sy stem which generated this result transmitted reference range : 4.20 - 10.70 10*3/?L. The reference range was not used to interpret this result as normal/abnormal . RBC (test code = See_Comment L [Automated 939-8) message] The sy stem which generated this result transmitted reference range : 4.26 - 5.52 10*6/?L. The reference range was not used to interpret this result as normal/abnormal . HGB (test code = 7.7 g/dL 12.2-16.4 L 718-7) HCT (test code = 24.4 % 38.4-49.3 L 4544-3) MCV (test code = 89.1 fL 81.7-95.6 787-2) MCH (test code = 28.1 pg 26.1-32.7 785-6) MCHC (test code = 31.6 g/dL 31.2-35.0 786-4) RDW-SD (test code = 47.3 fL 38.5-51.6 35763-6) RDW-CV (test code = 14.6 % 12.1-15.4 788-0) PLT (test code = See_Comment L [Automated 777-3) message] The sy stem which generated this result transmitted reference range : 150 - 328 10*3/ ?L. The reference r brianne was not used to interpret this result as normal/abnormal . MPV (test code = 10.5 fL 9.8-13.0 32874-8) NRBC/100 WBC (test See_Comment [Automat ed code = 2382804571) message] The system which generated this result transmitted reference range : 0.0 - 10.0 /100 WBCs. The refer ence range was not u sed to interpret th is result as normal/abnormal . NRBC x10^3 (test code See_Comment [Auto mated = 3669587945) message] The s ystem which generated this result transmitted reference range : 10*3/?L. The reference range was not used to interpret this result as normal/abnormal . GRAN MAT (NEUT) % 72.9 % (test code = 770-8) IMM GRAN % (test code 0.20 % = 0624478135) LYMPH % (test code = 15.4 % 736-9) MONO % (test code = 7.0 % 5905-5) EOS % (test code = 4.0 % 713-8) BASO % (test code = 0.5 % 706-2) GRAN MAT x10^3(ANC) 3.13 10*3/uL 1.99-6.95 (test code = 5759516426) IMM GRAN x10^3 (test 0.00-0.06 code = 2492025231) LYMPH x10^3 (test code 0.66 10*3/uL 1.09-3.23 L = 731-0) MONO x10^3 (test code 0.30 10*3/uL 0.36-1.02 L = 742-7) EOS x10^3 (test code = 0.17 10*3/uL 0.06-0.53 711-2) BASO x10^3 (test code 0.01-0.09 = 704-7) Lab Interpretation Abnormal (test code = 59542-5) [facility] METABOLIC PANEL (NA, K, CL, CO2, GLUCOSE, BUN, CREATININE, CA)2022-10-05 12:09:11 Test Item Value Reference Range Interpretation Comments NA (test code = 139 mmol/L 135-145 2030363184) K (test code = 4.0 mmol/L 3.5-5.0 2006183968) CL (test code = 101 mmol/L 98-108 7023939704) CO2 TOTAL (test code = 33 mmol/L 23-31 H 4346080476) AGAP (test code = 2-16 6088242816) BUN (test code = 24 mg/dL 7-23 H 8423190555) GLUCOSE (test code = 114 mg/dL 70-110 H 8526853593) CREATININE (test code = 0.84 mg/dL 0.60-1.25 3827653931) CALCIUM (test code = 7.7 mg/dL 8.6-10.6 L 2523109175) eGFR (test code = mL/min/1.73m2 0673876199) LUZMARIA (test code = LUZMARIA) Association of [...] tests). Lab Interpretation Abnormal (test code = 77087-4) [facility] 12:09:11 Test Item Value Reference Range Interpretation Comments MAGNESIUM (test code = 3687105272) 1.9 mg/dL 1.7-2.4 Lab Interpretation (test code = Normal 96300-1) [facility] 12:09:11 Test Item Value Reference Range Interpretation Comments PHOSPHORUS (test code = 6395492822) 1.9 mg/dL 2.5-5.0 L Lab Interpretation (test code = Abnormal 16578-0) [facility] (04038) (ALB,T.PRO,BILI T,BU/BC,ALT,AST,ALK PHOS)2022-10-05 12:09:11 Test Item Value Reference Range Interpretation Comments TOTAL BILI (test code = 8709966630) 0.5 mg/dL 0.1-1.1 BILI UNCON (test code = 3525909239) 0.3 mg/dL 0.1-1.1 BILI CONJ (test code = 0228657901) 0.0 mg/dL 0.0-0.3 T PROTEIN (test code = 5867980042) 5.8 g/dL 6.3-8.2 L ALBUMIN (test code = 6627890385) 3.1 g/dL 3.5-5.0 L ALK PHOS (test code = 7142950233) 60 U/L 34-122 ALTv (test code = 1742-6) 16 U/L 5-50 AST(SGOT) (test code = 1719081524) 45 U/L 13-40 H Lab Interpretation (test code = Abnormal 41140-7) [facility] 11:58:10 Test Item Value Reference Range Interpretation Comments Fibrinogen (test code = 7960950088) 289 mg/dL 167-453 Lab Interpretation (test code = Normal 86846-7) [facility] [id number] 11:58:10 Test Item Value Reference Range Interpretation Comments APTT Patient (test code = See_Comment [ Automated message] 3173-2) The system [employer] h generated this result transmitted ref erence range: 26 - 36 Seconds. The re ference range was not u sed to interpret this result as normal/abnor mal. Lab Interpretation (test Normal code = 54805-8) [facility] CenterProth[facility] Time / [id number] 11:58:10 Test Item Value Reference Range Interpretation Comments PROTIME PATIENT (test See_Comment H [Auto mated message] code = 5964-2) The system [employer] generated this result transmitted ref erence range: 10.1 - 1 2.6 Seconds. The reference range was not used to int erpret this result as normal/abnormal . INR (test code = 6301-6) Nor mal INR <1.1; Warfarin Therap eutic range 2.0 to 3. 0 or 2.5 to 3.5, dep ending upon the indica tions. Lab Interpretation (test Abnormal code = 15000-3) [facility] WITH [id number] 11:44:10 Test Item Value Reference Range Interpretation Comments WBC (test code = See_Comment [Automated 5390-2) message] The sy stem which generated this result transmitted reference range : 4.20 - 10.70 10*3/?L. The reference range was not used to interpret this result as normal/abnormal . RBC (test code = See_Comment L [Automated 099-8) message] The sy stem which generated this result transmitted reference range : 4.26 - 5.52 10*6/?L. The reference range was not used to interpret this result as normal/abnormal . HGB (test code = 7.8 g/dL 12.2-16.4 L 718-7) HCT (test code = 23.9 % 38.4-49.3 L 4544-3) MCV (test code = 86.9 fL 81.7-95.6 787-2) MCH (test code = 28.4 pg 26.1-32.7 785-6) MCHC (test code = 32.6 g/dL 31.2-35.0 786-4) RDW-SD (test code = 46.6 fL 38.5-51.6 71985-6) RDW-CV (test code = 14.6 % 12.1-15.4 788-0) PLT (test code = See_Comment L [Automated 777-3) message] The sy stem which generated this result transmitted reference range : 150 - 328 10*3/ ?L. The reference r brianne was not used to interpret this result as normal/abnormal . MPV (test code = 9.8 fL 9.8-13.0 52920-7) NRBC/100 WBC (test See_Comment [Automat ed code = [id number]) message] The system which generated this result transmitted reference range : 0.0 - 10.0 /100 WBCs. The refer ence range was not u sed to interpret th is result as normal/abnormal . NRBC x10^3 (test code See_Comment [Auto mated = [id number]) message] The s ystem which generated this result transmitted reference range : 10*3/?L. The reference range was not used to interpret this result as normal/abnormal . GRAN MAT (NEUT) % 76.3 % (test code = 770-8) IMM GRAN % (test code 0.40 % = 8497155179) LYMPH % (test code = 12.1 % 736-9) MONO % (test code = 7.6 % 5905-5) EOS % (test code = 2.9 % 713-8) BASO % (test code = 0.7 % 706-2) GRAN MAT x10^3(ANC) 3.39 10*3/uL 1.99-6.95 (test code = 3160077069) IMM GRAN x10^3 (test 0.00-0.06 code = 2774002012) LYMPH x10^3 (test code 0.54 10*3/uL 1.09-3.23 L = 731-0) MONO x10^3 (test code 0.34 10*3/uL 0.36-1.02 L = 742-7) EOS x10^3 (test code = 0.13 10*3/uL 0.06-0.53 711-2) BASO x10^3 (test code 0.03 10*3/uL 0.01-0.09 = 704-7) Lab Interpretation Abnormal (test code = 92829-7) [facility] [id number] 20:47:59 Test Item Value Reference Range Interpretation Comments Case Report (test code Surgical Pathology ? ? = [id number]) ?Case: [id number] ? Authorizing Provider: ?Tu, MD Praveena ? Collected: ? 10/01/2022 0321 ?Ordering Location: ? ? [facility] OR ? Received: ?10/01/2022 0807 ? Department ? Pathologist: ? Sis Miller MD PhD ?Specimen: ? ?HERNIA SAC, UMBILICAL, umbilical hernia sac and skin ? Final Diagnosis (test e6etvNBzYQRcd6jrXRAxgX code = 9203429328) FuZzEwMzNcZnRuYmpcdWMx IHtccnRmMVxlcGljMTAxMD XzYB9kbHvoeTx5uSezZUMz rjC2fDGoVTmij9lqKBM6n0 ytuegxDMYjRFtzTm2fmDIe yQfsPuAnNQDtIMo8rZ64EU FqtN3bvICjYVv1CYVftJFd jnTaDpZbFTFbkJEhoRN8ZS BdWL1jfsqbZGhuNRofSLDo tvB7UAXabJSzL1ZsNRSxUO 7zklvlMZE4LLapETRlUZB0 YvXyCIFgw6Eipic8GgIphX FyZFxwbGFpblxmczIwXHBh wbLMDpQUE6uILNMKNUUEH0 PBSKKMJ9IBWEgrXD4JQDrO H5DPQQfYDn5KQLNFNQJcWN AQR1qGLM1AQhldOTXfBCIf ARVlEIWPBJ9pIW9SVBGTPv VLUMEIVZ8JBDWQQWOTUOEf E88FR6dKDJFQSKPJVXJDMG kNAp9TDIAQVPEhdPHiKDHt cmRccGFyfXtccnRmMVxzc3 HsV7AoWaJuTEqcqfJuGFSk YlhkdjfrZTYgZQK2wtLcMV StIGqlZRSiPWlxOr3quVIr iDcvFfUsFJQme7mqcyCOEB hmMhUkS007VRUsNYnbg9vi a7UbVNNvvACtj0G7RJBLtv xqmEf1a8zdErWhGnI6iCQd JVmiD8ayuxQabQTwK0HsmH MasMr3uRqmS95pf2U0Tsxp S2mePPFuCMKhO6NiCA1lXU YuBhj2UUD2QEC2VNMwBXNq U5KeDD7gCZRrtUOtGWn1l7 phuZnhDWTnYCJ0e8trRHpq vkN6LM9yfv4gyOl6w8pfae KrPETrEOAjgJVSVJLlY8Od eLthGu5mbJr1dEkdClnpPK F6Zxu7CW6hfa07shx5dTmf HYHwonorLtF3QZkhUVLopl ukFKr5QHfsJMMkbTW2PVVi iDFiX8BgGRQjRN0etlt3YX M5OAncKHLfTqB7CLIztAIr NDGoqFemIJcns576KZW2Ch FmUP0lX7Zbj8V0hS8pwYPz LTXmzBVpWiUeLJGjpm2nsZ LpNYprw0GsMBX0xbZ1bTQi nBPsFMVaZE07Yqdmu2YoFk yjBJZ0IARuzcEvc4Pbi8ku VkEokaAqS8kfD6IrNDPpTR YvAELeZgRhaxLcq7Pzo3Ff lZCmnNm4c6lhLOQvSLAqmC hkb2lwCKC9JCYjE1F7oAZq x6xmTAalRFBghDD7klN6VT NdqBTyU5AqbZ8zRENxHB0c iqj6f1euUEG4XBlaKBJzPa A6pdK9LLRscGEfADRajHys WIufl766DRS9GwKfMBIuk8 QjG8HqwOmzO56tmBqyM14q CJGakRtmkZ6soTdhlF9yRq BcZnMyNFxxbFxwbGFpblxm MVxmczIwXGxhbmcxMDMzXG pfK0fkRsNxJUOfwTruNAwf e2KlMPHhIRCgTpekjrHsHI PicyAZBGbdebMpjRVwk10y YWxseSByZXZpZXdlZCBhbG rzz8MoW2weWL3lR1LzqXId fyHwutVnUVsuAPFpy6o2kK UqjCvey4AcyCHuOY20jgWl IFNvVBP8SFXpu2vqYH36hb axVsQmuT20bnDuufTrTJRw v1esZ3lvvPZyh4Ktk9Ujgj JmRFuoz0WkHX5plEIgubxq vZA5FAGtlWRtxjZrxqC1mT svVKUxxT3giC9ndRhxpI6r NrPyBhYzCGrbHK7dILDuE8 ynlXYuNPWfKHPfD9enFzDd vD8bvZnjBxanprY9XPXryj 19 Clinical Information Umbilical hernia with (test code = obstruction, without [id number]) gangrene [K42.0] Gross Description (test c3dxoRZjSEYyvGLDENUcUB code = 7403036843) IxME4eoGpdrGg6vLdfGCAy wkC9tXOtNHgvu6ptKNT4f2 llbiANClxkZWZmMVxwYXBl pmmvIcC7GArkDCFlkuzpQJ v0QKewGCVzlVD4XAGbvVMu B6BgOIAcHL4tuqs1VGI0YP siBAFmOxD6OSTzRhRsUirc FNf0DCJjpxS2Kjr2VKMfAA BpdXRvb5B3ZHkmiushKIZd xQLoU191LMfsd3CusBFrQI pccGFyZCANCntcKlxlcGlj n0ZihBTgFFygSTLgASWyHW uazhblHUj5YDCcBFszsKVp OY2cxStpNkafgNist8XedH BcXGlkIDUxMDAyIFxcZGIg YQ1DKvBkWCI2NuLsTmIkVB y8LHw5CB3VUnZpVBFmWDR3 RICmZXSoLPe6RViuLL1KYP E7VkkhTtP7HTGqALCxQLEh QFg8KLExSVrgVTSqmIGlEU uiHySzDJEqKXbwnNCyXL5o fVxwbGFpblxmczIwIFNQRU QGNSVNRKSzoSUeBD0SPWMm MWqmJDZfvBBVAYX9NJ7bKA ANClxsdHJwYXJcbGluMFxy wT5xRR9TJVt6zxOxXVIcUz NlK1ObX2rmBQ1pRBKjlbKm ECJvfNXkORRwtwLhl9ZsTL xpbiBsYWJlbGVkIHdpdGgg dGhlIHBhdGllbnQncyBuYW 9qBNXYKZBqnZ9nYCSzMFFr QLEuxXMjg3JfWQY7qNCmtI ljYWwgaGVybmlhIHNhYyBh tcWft4hvxrEnVC4fDGLbxi Cft1OsEK8aYYWso5hnY5pt SC1fUQSmrk04XAijt3ozMh pgzk7tEKtrj0NeAANwf6E6 VRGjWZ69OXueMg18RAwgSV 9eLSKnSXO4bSOmVS06DQUv xNtjKiG8RF9etTkuxfW6on liv1dqRNSsk7qoQoTnJVsa IHNwZWNpbWVuIGlzIHNlcm ykzDj8AAAsX6Jrd60rMDP7 byByZXZlYWwgdGFuLXBpbm qzgW4woUNjtX63HNEvY4Tp rVdurTVbg8UflVShiUMuG6 A9STJ3rzUfI4DaFlCsNpMs ayGyCM72NQPwopDsj2JblB rmovIpGDAbEWV2Uo3jlPAe DXItqmBPXW5HBh4whOBhOL 0KXHBhciANCklsZWFuYSBN XCCkitpnZBRqNXPWO5GuJ3 0NClxlcGljTmVzdERvYzBc xkK9NPCpnTHsKSA1ST5nOW MxueuiBXCqOVKyUPG9MTsy qL69vMTvISNtDWEkrZZlnT uyxQCcejOVGonvlJ3lOyAa e7rnmCi5BEDHSnjbqSLjir jvjaV1KBYpp4houCnjv2Fv tMQnPJ4atSnubH6pNhMbYq ANCn0= Disclaimer (test code = k3wmuDOhDMYhr6fbNZJgtW [id number]) FuZzEwMzNcZnRuYmpcdWMx EMcpbyNoDBtkf0OnY5FlAw AwMFxhbnNpXGRlZmxhbmcx RALtGHJ9hoNqNTLtOFuaCB MaXHxgGk8cqSZziCibRdUn NXWzc7ytwjDGQZfmBhSqB4 32LPTiVVpun7wkv4RiSLCz mJIxz5B8IYUVhnqdzNf2vS ieT62hd2Y7NjwsH5pmICLg VHQfF4IuFA1hOBZlSsy0KU Y0NPK7RXSfZTAsV8EqCQ6w QRNaeJTxKYh9d8yozBlwFS OfNSX7r0trYIvhfnFzHW7w bh4kdOx0z5lilwRbCTYsRT YwrWVVRUHkO7QolYamEh1c bDw5yUxiGqbiMTN6Dyp0DL 0pgh03ply5kJvmCSVcwpjs JzY2SEuhCESnpoqaULx6OH rgPNFfzIV6PAXqpONdO3Le QHMhEX6kwvz6FVU4NKlyDJ QvOjA7DYEzeIKkBEWrfDoi PFrbn812EJC6CbLoBW8zC8 Apr0B3dG8ziBDtJVZfeCCe NcDjNJXicr3nzAZpUIzxk2 QkXFF1ohO7rZGbxDGvSVFm ZF40Adoev5EsEvaqk7XuN4 1lxZL0ASgwo7ysEZ1mGtC5 vxEfLGdkh1ubbU5rJjD0AR jcHJ1tDG0zSOXtyG4uypzz XHBnYnJkcmhlYWRccGdicm XrEh3yaHziYLS0AJhgD0tg jM1jWbD2NMpvI5valV7tPG i9VEtblJL8MYMivZ4mTM6w xrlii9vmXWieTXluEZSqhv H3snF5RHKpyBBxC4BmyD9l WJWhTX7eydcvz2bcGVU3GK hcNKBwCTT9CaWqHUIbb3Qz zvd3QaJmq8NuaYBoGNhxO0 2qe979BYVziqWpF6kkyQVx ydyxfKGqydeuOVemenQ6PS MzoaTea2CeMUOkHHZ9QSzq QErtbUDtYZOycXgcb1thG2 RscGFyXHBsYWluXGYxXGZz MjBcbGFuZzEwMzNcaGljaF rlAZvkQfXiMWXxFTejE2ha RyFhD9MlELAlLrSkuZWrD6 ggVGhpcyByZXBvcnQgbWF5 EZcxN3m7WTKzlvOwdQt3aq QtIeJmMLZgNCO5JOsqpWHo VYNoa9PskikouQIkIg6njX OuFLNvgF9vRELyTQKoQXkl FF5kzPm1LLJCzRLyaMJhDo ZRRQFiTW33mhOdXKMQlnyd h7W4ELtsSOKfw7ComKKxX7 ehz3YyEMHhx74dIF2jk3F2 o5rlQFC9TF2hs6GvDALjeL BbwARsPSBsw6Ttrmjwp9Hd VZQwyxVgp7NmKBQaudRirQ NnIWBboqCjjc8ktrHhKCOs LDBvK6UfynfwhEtenkOrAO Spnb3ffeNvUWN7ORSSYKSx CGVhq9FgjQ4syFFPBSZ2jC Yzta9xauIBcRLgASGatm38 ELZxIR9lB1gfGFVoNAXkhc NcfCGwm7PwIKGwsQW4kTSg NO1NOaRWx92aZAQzATOMwn KrQUQuaDslkQZ6eoB7vD1o IChGREEpLlx+IFRoZSBGRE QnFH8kzcUkl8MkpoEeyEry DCTxfWWue1ZwpXAwz7IdzD fwy5PsdPTlpFAeBZ6rSOXy clxwYXIgVVRNQiBMYWJvcm U3q7AfSDJxKBRzWSJ1hApn qtl9AQIulX6aVNIjO1gntn fuVLvcLLTli4PaeT7bsSXB bGMtq3UhkFZliWGCvKVfOU 8ebpCuLVrSIGpSRAD2onUw PRXqv4GlCHfpA9skF51vfB zszVv0xKC6YAH8hT7iVig+ IFxwYXJccGFyIEFwcHJvcH GvTAIldQuznwVjS5UgrpTj jY4itJXkweLiLM7sLP8fG0 N0kNTnDXFftmBue7vqQSrb dmUgYmVlbiByZXZpZXdlZC Php3ElKWuiMBP8GOtdvpRn bmNsdWRpbmcgSCZFLCBTcG BuyPPaEXS1IGecnaDnmhIh ZK7uhX8kyQymtE5nsKXboC U2xwjvOSWuVCZdnKcjGANh CY1stORrIMCzlvOAnEuwwG HceE5sK0JmHCSpWXWtvb7x NVMwmV2rOLkgq1SwvzfkXU WiCOJtXRQoyjSjoc7pUPFn oMIJDM2ZLFzuoXNlg2Okxs VoK5gWZQK8DOOxVmPeSxrt KMJseUCysBOkVKGwmf11LN EpoV5sfYbxHZSezD7lvB7v uJgrjF2aXeWgUaMeZWaxAZ 1yVZSqW1thfYWpOOZhFKQw L5eeQmDbjH4jxCfsPWmlAl PoSjQgMOrdYFZ0kD== Embedded Images (test code = 9061011233) [facility] [id number] 20:47:59 Test Item Value Reference Range Interpretation Comments Case Report (test code Surgical Pathology ? ? = [id number]) ?Case: [id number] ? Authorizing Provider: ?Praveena Mae MD ? Collected: ? 10/01/2022 0321 ?Ordering Location: ? ? [facility] OR ? Received: ?10/01/2022 0807 ? Department ? Pathologist: ? Sis Miller MD PhD ?Specimen: ? ?HERNIA SAC, UMBILICAL, umbilical hernia sac and skin ? Final Diagnosis (test q2ahuLFgRGCpd0tnJXYdnA code = 2616107818) FuZzEwMzNcZnRuYmpcdWMx IHtccnRmMVxlcGljMTAxMD RcGO2kcRrdsLz6tNqcRWDg sbJ5uEYsSMpoh0djIPG9h7 qpynzjEYAqLFfjUt9ztSKq rAqzLvCaFCClRYq7uI11TI PhiL3inLEuOFa2YXWyyFRx uyKtItMwLLYfsPCcwLF3WC YrYI3mwfcrVVzoMPvhPMZj qvR7YSGexAEbH1HmHQDxPT 3ikhhsWWK8KEnbZMPsQQO2 XdToPEEwb3Nskmg9PwBpoW FyZFxwbGFpblxmczIwXHBh lrAPSbDZP5sIXEYBKCWBE2 EVMFHRY8FVIQpsOQ7BZPlB A7AEDDnRPq6NAGYXJELdAK YQJ3oDFW5WDpauABBaZWLz VYIcODUYJZ3yIY2HHAWUKa TNPJJBBG1HMECRAWKAWUQf V60UX7iPRNXGZBGDNTJNTI jZIv7JNBVNZIZpsHRkWOBi cmRccGFyfXtccnRmMVxzc3 HlZ4HtXwXkGTioqzRcKOHv IohgmkvdQJIiEVN1wpWmQZ WxVGvyAWCpKSkkDz9lgSYp iVfwHgJdMQFtx0gjmnLRTW mpStVyQ476WRNsHJsos8mq q5ZzBOOdnXXhf9J4PFBWwd nstRj2o1xnUmNiHcC1pJXx ACcqY4hywyGzyYKaL0KauR UmyGz9qNmdB29po0H4Wfeg Q1xmVJXaVNYxK9VfYG5fVR VwAvl9VJM7YLP6UZMdINMs V0KpOD2jULVcyWYjLKx3q8 qewLckUQShJPM1i5aqQXyz kzW7AW8ekj5euVw7b8mycv BoZGUoWSLuqDNWQTFmW6Ty zTbqGs7ldLj3uPtyHlwrLF B8Xvf2KC9hxn64mqo3uNpx XNYyuainJjW9YSviKEUhjp geITx0KParGLKfkEH0QHCq dRWtY7NhBWIzBW1cdmm5TS H3KNjxCYQiWdX4KICiaRJl ZNKanDrlVBuvd061GWT6Ks RoQK7zU9Uzu8F5aJ5yxRUi HJVmfCYwXhYgNNZbpi7zaF IlIIatx3CjIXA9raR7gYUy pTCpZIWjDP31Ttfhg0PdNn oaXBX2IDHyevEzq4Lgb6bc VnDerkGtI5vjO4TqREQnUD LxGOVpFmQpmqYjh7Vse9Qx sRYlbIp0h4qvBYMcETRpgC ljt1leCYH6COJtM8W3pRRi t2qnPNcdCAKuhCD6faR0UQ QspSBrG2GkqY3fHHGbLU9y fdj7f4uzIFU2GDxmQCAeRn S3kfJ4GCBuiTAkQPJctHwx VRvrr225DKZ3XvAlIMPgn8 TvD5JhvRhtB35luQcsH99l IDYraPiqdV9yuSwhlI5iLb BcZnMyNFxxbFxwbGFpblxm MVxmczIwXGxhbmcxMDMzXG kvB3erXhXhEATrqEzyCUxg i4XrYSMxDMBpRgkoieByHH XpeqGDSDfarjFiyGCct04c YWxseSByZXZpZXdlZCBhbG cfb3CgQ6keOZ5iU8XxeHGi saEifdRgYEwzEBYxt4b3bW RlkXdxe3VcdRPiKZ58xwTe SRDmGWP1GSVut3fhGQ61ht wfJwVygE94djCzcdXcPJTh l7obV9fgxVQyv3Vxx3Ehnk BcSGgdd4RrUM7wjJHeuikq fMD2PJHlvYYpiqTqjxL3nV ofBRSqbH8cdP8hcFurjD5k BvHdZeFlWZxsDC3vLONuO3 iipLRpEWZdZXVjL2rdFlYu aP2mfSdvHbdgfkI4WIRjpk 19 Clinical Information Umbilical hernia with (test code = obstruction, without [id number]) gangrene [K42.0] Gross Description (test x6cvxOKlWDTbnIVBXLBmKD code = 7832858547) TcJU0lkUkxoWm7dWuwRFXh ivR5cKIrZEppg3pdLRJ5r7 llbiANClxkZWZmMVxwYXBl kvapXkW1TMqcSBDlpgihXK s7DZekUUFnmTK7WFPomBDs D2GmKCIhFO3adtg4SOD7VG qxYMWcSwG6PXXkUkYzMacj MLk7LVRtdeP7Fvz5UBLjHR KmbOPbj9K3UIgsssnhTTEh aKDtC934MLyrn8AttAKoQW pccGFyZCANCntcKlxlcGlj y2DnwIGpDYrpSPGpZUWbJY luhtawOAn5HYCiRZsynHYr PY9kjYnqFizgqLtjk0QeuD BcXGlkIDUxMDAyIFxcZGIg XS6CXzIvAUN7FgDjCwRwTK v7RWr9FX0HVpHmALDvCUS6 VNFgIQTgBXw8TRveUC0OCQ J7NcztOhM9IQSbWBQjCERk CGd8MOSzCZjdSZYclKQeZG irJoOlZEWuESmvaGDsEA4p fVxwbGFpblxmczIwIFNQRU LBESEGKONhpOOmKK4PUZCo JBqcDLBzxHUBXRT6SW4eMR ANClxsdHJwYXJcbGluMFxy pE4hOE4JLPt5qmOzIHVvAh GgZ1JkE6ecTY7qCENqlrMd MLExqJNiMJUcguQbe2XjVK xpbiBsYWJlbGVkIHdpdGgg dGhlIHBhdGllbnQncyBuYW 0vWSUYHPIriJ6mYPAkQAEw AARewXPxm4OsOXG9zBBbcU ljYWwgaGVybmlhIHNhYyBh gyGxz6nqtsMtXK5zQKOczi Eew0GaBT7pVPRrx9eqS7dj JD3dKJGaaz37KTcgb0txTs xxem3rULfap2JiCYCja4Y0 RLKoIW49TLnkMr53JMcpSA 2cCGMvALL3eIOnGZ00LOTz uEstKwK9YI8jiMywczA0cw tgq9kxFGCuc2jdPiLeNOnp IHNwZWNpbWVuIGlzIHNlcm zkpVh1OPPsB5Udy29yLXA8 byByZXZlYWwgdGFuLXBpbm ddzK1uuYAfwM77GRQdS6Uw kZzmkKTvm8EacMOasURqG6 W2DFF8jeZzA9HjRlSyGjWt veJbGV53QPCmiqJpp9PtnD sykxLjWDPdUXA3Qf3dvJHv QZCdryETVO8BTt0ocSLfXN 0KXHBhciANCklsZWFuYSBN LIJnnrpiJNIrPJTOQ3KkT6 0NClxlcGljTmVzdERvYzBc llC0PNSczVGsUTB6NH7pLH LncvhjBXBgJIPsVZJ9TRht hM25qGSwZXAjOHLbcUHqtL wpnRGzxsPJEsmcoE8oGbIv k8xblFu1JQNOGvlwySUwyb higbC0UIXmp2qliXdrj2Uj ySQpPG7itQcciL3mCyOmAs ANCn0= Disclaimer (test code = n4bbgAWyTHOjq8jwBKNcbV [id number]) FuZzEwMzNcZnRuYmpcdWMx VFxradDnFAngy7LxG0IhQx AwMFxhbnNpXGRlZmxhbmcx BLYxYJG3ihRnTIDbRXztEN GmVVegIc3tjVNkiSugBtSd TKQik9mwtnWEFBghJvEmM7 00XUAxNCnal1hcj0ZsZHKw lYCfz1Z6WUZTadrqxDe0pZ nvZ07xd6M2GkguG3btKTAi TGTzL1XrCO9wLHWiXjj3TA G9LZM7BQIxTJMhF5VdSS6d SIActBFpQSa8p1diaAuuRO NvWJB8c8dbKNxxkuLhVF2i tu2kuMy2w5yrtcJuSFEkGS JueOOXHUUaL7DziYzlJz9k dGy5jBvnUziyXCO1Bku1DD 7iuf11pbp2zEtlJUPcswpl AgW9IObfQJEpbmycNCh1WF wfWRCyaTH7HOFtoZNmA7Eh CZNeDT6bupl6TYG3PQadSR HnYjV6TLKbrMIoGAYlxFav IDjoc325FQV6CbMcGN7oF0 Lpf8U5tV0zjGLbKMGmbTEg EhVfSEGefe1tyPShLJvlf6 WyFZJ2jiX7sHJygIJuWVBo BX70Mmofj6TbPyxdt8JzD3 4nsSA8XExpp6wvWQ5qVbZ6 voZgHRqby5wthR5tReO7CQ vjZC9iWM8nMCGruQ7ywzck XHBnYnJkcmhlYWRccGdicm KsVn2zqUlrRRY0TZyzR5wk xO2rHyZ1BIviC9kwsR8gZW b2PUsuaFX2MLHnwQ9rWB5h ownhv8cfLXpuKDpiWZNrtg U0szE0YKUdzPDyS9GmzJ9r DEQkBD6zswjgb3fhJPK6GR wqRHFkEGJ1IjKiTUUvh1Yx ovv1PzToe4FffMUzYVyrF2 0ap287BCUvalUaE7qjrJCk jfymtKRjdwkvBNanglK5US ZoyqLyr2EiNJXlTOL6MUle ITibhQJgGLHzuClvr5rnD5 RscGFyXHBsYWluXGYxXGZz MjBcbGFuZzEwMzNcaGljaF phULlnHpGcLONsVIrnM5yw DrCjD7NyYPMpZeDsuUTdF3 ggVGhpcyByZXBvcnQgbWF5 RMbcP0t1FEPejpCfxFd2mk FvQfRkLWAnMDG5PWvckVVg CYEgs3KumlraaUYsFz3noC KgLHMdpA1uAARaHRVkYAtp GD1yfTt7HUNLmXVscLYyMi HMRFTsPA12edFmHSQJdqed l7M6WVcfZIYfp9LjjZNbV1 dij5XwZVWnt11sJN4yg7F9 l3jxKSF0ZK4pf2JhNJRomW VgnPJcHYOup4Bavwyen0Zr UIIgbaKjp6QtIDPjskOfzN FaYMSulyGktm2dzfPvOZZd LXHmM3QkexzpgKqmptIhPW Bnop8ixsJfSXL1VMGOHKWl SNIkw1TfiJ2srNSRKTO2hG Agwh1hqxEVrULuFXNphb50 IVPtFZ1fN3dlFORwGSXgaf YohABej4QaDLMssYB8mXXd CK9QRtAXe88bBOKbHYIEiw UvAZSbhGzhqEY6rxV8lI3a IChGREEpLlx+IFRoZSBGRE YgFN6icdAtq4NeotYqlHyp EZOsrCVvq7HopJKgz9SwtC mwn8GheREwdZKbZR3oUUYv clxwYXIgVVRNQiBMYWJvcm I9z9KrRVRaELWyZHH7mGiv kys8MQLwaE8xCNUwL2xnxm zwBPrjRRIus5TmkB8cbJBY fWOep1LxiKEbnVGNwYGjAY 8cieBuUNaAUDsEKOU4irJj NKZiw0MzJLfyN8sdU62xnB jxtMi8cHU5HSK0lK7gBeu+ IFxwYXJccGFyIEFwcHJvcH KdKEDfaBvxwgJdU8YdwoTm zL7syQEavcKxEB0aPM3sJ9 F1yMOuWRTjhqYir9olYNen dmUgYmVlbiByZXZpZXdlZC Vzr7JuKIdrPQE9LFnkglZq bmNsdWRpbmcgSCZFLCBTcG NzjANmRKN7IIdcfkJnsoVc ZJ9zbD2vmUoktN9oxQSriK X1reqcHNHzHNSajIbqUHEe ZT6ltNOoUMSvfzKLwShlbV HroU9gC1TmEWToZHDpsa9d IQIiiY2pGDdod8LrroskJF OeUCBmYDTdylGycn9yAHUm iCNYVN5RMPnnfJUmf3Pwpv FwK3cQDQW4FXIzOeXnTqiw MUJrvSYvzTMxTAUfas32DL KmiA2dhYobXKJreT0vlQ9w bJetkP4eAtQqBbDbSOvrLP 8xSEPyX5nafZZhOHRrSZSa H6viYvKpyS2miPlsRHtqBd WaWsWeXFanIWX3lT== Embedded Images (test code = 2493312853) [facility] [id number] 20:47:59 Test Item Value Reference Range Interpretation Comments Case Report (test code Surgical Pathology ? ? = [id number]) ?Case: [id number] ? Authorizing Provider: ?Praveena Mae MD ? Collected: ? 10/01/2022 0321 ?Ordering Location: ? ? [facility] OR ? Received: ?10/01/2022 0807 ? Department ? Pathologist: ? Sis Miller MD PhD ?Specimen: ? ?HERNIA SAC, UMBILICAL, umbilical hernia sac and skin ? Final Diagnosis (test z6wcbINkJTWdy1qaKJLmwT code = 9305034519) FuZzEwMzNcZnRuYmpcdWMx IHtccnRmMVxlcGljMTAxMD FpTD2tnDsthOw7gJueNIBw tfW9iXVtPBlbp5lnFSG5t9 avqprlMTPjLTjoFu1lrYKf tTudLoBfMQBpONh4aN90OE MduY4rdYPsMWr4NAQxbNVm ifDhIuYuVMHgyKKrsET3RM KuKO4kasnkUGomULmgOVAc ygG7HBKttWFxB6VtOMBxDP 3wqasaZCH1ALjcLVIcMER3 YtQbLFIvr8Escmh4KjXtjZ FyZFxwbGFpblxmczIwXHBh slBSVtSMK5dJTAXILALST3 ZXKXMCF0VPSNraFN2IBOiO M5VPTAwFJw6VFYBXDXIrRA RYB1mGGJ0KYeekZIRqYZHl ECIjIPAMPP1lTO1RVNROMu BWKMYXNG5QIKULVUXIYDJo U73SX4cCLHSEUJPZCGLIXX kULw7EMYZUAVKqgFYvNUFx cmRccGFyfXtccnRmMVxzc3 StT2JxHzZhRHffebHzGRVa MiqofaodBNJaCXC1xbImTF MsWElrZIAaCTgvGy5gcEZa nBceMtAaPJSph1ssjlOGGQ zjJzSvL475UWDyMGxye9ou n1InPXZuzWFib7Y3VZLOcq dixVe8e2teLsYrIpH9wOBi PMhhK6ndfyLvyGEjL1JerB DcwVm8sPigJ45go5O0Azfi X4qmPRJuVAEwO0LtYL9fMD XrEez9NFG0XTA7IIQyZPRl E2MpWH0zVMYlfSTvHDb2s3 sbxUhuDGGuHEK2m6sfLUta mkI8RQ0aln8gfMd0v3leyh GbVVIsFHXlvWKOFQEvL7Vn lRbuKn0ugMq6gMykJhgbGY B6Koy8ME0etq67qyk4dYoh SQSjcupqSrH1ZDasYWXauk ahJDk0JOpnURHnrNS5OSNe wQPkO1BhQGCvOJ4tbnt7OS S1WXnoOXSzTbE8WWLkbQGb EWMzfIadWNsmq377GFI9Es LhVF8fY0Utt4B8bL8wqYPb LPNkvVXiJdKaIMItdt0hzK DfWZhtq1SbEWY8zfO0aMTn jWWrLRCqEP92Emqhn5PaKq kiKVJ2NHXnvfPnb4Daz4tt FgPsqnLaW2ztW4UfGPSsYM WxXDGoDpOmkrOij3Axd7Ld cHKywIg6f6grZOEhNAEseF cap1srQRC6BYEtX8S9wNLu p7ujYBcxABTjvDN7jdD7PC ZnfHYzU8RybD2hRCKoVD9w ejs4r6rkGCD1AEyyZFPuQt V9wxW7KMTmsMAiAFLptPfo CSdyq089IEP2HcVeEYVkv9 SaD0LrnIkrL45wzMpmV99x FTObmFuddO5grAxkjY2nSs BcZnMyNFxxbFxwbGFpblxm MVxmczIwXGxhbmcxMDMzXG ptD5nhLkBvQGVzlAdiVDtc v7VhFKTsIQDyZqemudYzZA KqjmWVCJjxfeNrlWJvm74n YWxseSByZXZpZXdlZCBhbG atu6KeT8tyFA4kB1XmsYQc ikKtgyUbATmgTXMxb8y9vA WqhAcex5NyxMIwHW00scKd FZZiPAI1FHNos8bkPL48ma umAkBgiU00xkWwgaSiLLOv g0exS9tmnZYfn0Guy8Nrbe BdXAgqt7AsLI0diDQvwghl bAW9PGTjdUXwguYxkdD8xD ahSWQxeP3pjZ0brKbdgW3p HfBgMxVuRBkdLQ3wAXPoL5 ohlHIiYFDlKMCwU6yaUwJx mJ5jiQygAtcfmxW6VLGuta 19 Clinical Information Umbilical hernia with (test code = obstruction, without [id number]) gangrene [K42.0] Gross Description (test h6htmZMiKAPmpMBFTYAkBH code = [id number]) BsKG1hxUrhtBw5vAubKQYe wuY8uGLpIMjdx3wlKJO3h5 llbiANClxkZWZmMVxwYXBl sstrZhD8BMakUSUzyfczGV i1OThqMKXdoVI6NRPkzOLr S6KwNVHgZR2plqf2USM8PR gkHDKyJnQ7ABMoVzZkFruj LMe7WJAvzxA9Rgg2SRBvKC CroAAyc3L6OCczbmosJQBj xDFaF736RHyfy5SlkBShSC pccGFyZCANCntcKlxlcGlj z7EusBPxNGydTVNbPEWfMK rymshgHJl5BTYsPZbelCKo BT9buPhfDyrpjPsba7FcuE BcXGlkIDUxMDAyIFxcZGIg MW7DWiCwPLY5ZoSjRcZsCZ l9MXj5DZ6TYkCpHUKeMHA4 IWJzSCQaMIa3FZwmRQ0IFX N1SherTyB8AGSeSSZsIFKm BCd7YRGhBLvdRFZtmAIzLE jhRmCoIKAbONhhoOJyBK1u fVxwbGFpblxmczIwIFNQRU RNHOAZBGYbjGBnZD0HUHIh PCecTYOpsOQZYJC4BR6pXR ANClxsdHJwYXJcbGluMFxy gY0tPE6RCBv7nhSkIXGxTn WvP9TzW9rrBJ8yFONreoFv TYUmbOCaKRPtduZsi2XpME xpbiBsYWJlbGVkIHdpdGgg dGhlIHBhdGllbnQncyBuYW 0yUXXYVOOggE7oBAFkLFZf YQRluZJft7OoWGB8cJTzhR ljYWwgaGVybmlhIHNhYyBh vwYou7swjyTtEN2aHBRxbl Nrd6TkLT0aEVSah5fzK9mv RW9gTTPnlg92VKpxj0baPa mzdl4nXApxr8IeKBRfp7P9 VHDyCW00BQfnFv38YLlcIR 7oEQExBBS0fTPjTB93BWRc hOwsMmH1TY3okEtiwpK0os otc7wcYDNmd3aoSmGeZNha IHNwZWNpbWVuIGlzIHNlcm pfaKy0CPEiF8Akd34hCGM3 byByZXZlYWwgdGFuLXBpbm xwwV4ldBRwbK06YUKdZ0Wx vEaxsXGee3NnnQHdoIQqM2 X5XZX6giZgH1AzQlIgYlRp jrKeMV10ECMqsuVys7XjwQ makdVqAXYtHFI1Wj3ncNMf FJZgdfIZYL2WVa6dfZQcBB 0KXHBhciANCklsZWFuYSBN PAPbdzlgFZCbGLSQT4VlA1 0NClxlcGljTmVzdERvYzBc bxI5PQPdsFPqFUI4RQ4rWZ MeeilhCSIzGCCeQWM5QOev nY09pCOyIFCyFUVoaQTkdW lgwMPcvsRNDokxfQ6gVbNc b7qndCy2LKSDYetmoYBbdf gphpC3UCZed7bjpSphv9Pm eZEmLE8voCfuwB7kTzWdHe ANCn0= Disclaimer (test code = c0cuxDCjSUEle3rgKBRvoK [id number]) FuZzEwMzNcZnRuYmpcdWMx TMgjbhNlSKosf9SeH2VhDj AwMFxhbnNpXGRlZmxhbmcx EKGjUAJ7dgBpAAZkSAkfVK WjVSenEb9xvOEylMzqWpDj UQHrv8jzqhBFSHnwRnXpG3 49AOSuHVicg9otp8XuZEIm jYVic8D6UXRFkotukZw3nA pzT91hy8B7MaoqX0hhYVQv AIGwI4RhYQ2yTYVaLiz1QU P3SIR5HSCpBMUhN7RdZP7o YOTzpLYzJVa1d3fwcCyiCI QiMSG6z0zhIZdwbyNlPK8f ow1waGa3n4rxcaQvEKTeLW JidFQZAEAvB3DqaBdgLx5b bPf1ySjvGuewIQW5Irx1EK 8uzd29ahk3sIjcQCWuejyo ExO0HUfwQQVztmtbTCh5MR ifRIYjxFT1PCVqtHWwT3Ea RJNmHZ1fhki1QLC0LVocFM HgOtY2KEZicUTzQISilOfq DYwop843LSD8MnCmPY2nW3 Seg8D5lU0lfKBgYLYklWAq UeNrYIFudn2doRBoYHyim8 VcYCP7rjS7tLKxxRRhERMe HF00Vbmde4HyWcuhp8AhQ0 0ipKU5WUuhs0xxVV9vLgO6 nbAxSGcmu8plyX6wCdS1UX dvIW7bRF2sRREcaH8fblgw XHBnYnJkcmhlYWRccGdicm SyBn4jcXzpGTZ3MYrdO0vp jE5jRnD7OZcbQ8jltD8jKH h1NLoojAV7YWDulJ8bBV8c jmrik7sjRCrnRFzfOIPjwb Y4mrI2KJVmfGSmF8UpnR8d IBFjOG9rvwgmf3heHZJ8LC ceWLRpDOJ3ZzVlMWFxh3Cv osm8HgWos1KldBZlHZtlI5 3jr063VTQwwjYmL5bmzDWq pbkxzYFftjckPRiiktJ4LB GsshNbn8HlCILtRLG7DQbk ZIdjzPTyQWDkjXqgv7rdX4 RscGFyXHBsYWluXGYxXGZz MjBcbGFuZzEwMzNcaGljaF bwOTnrNiYxUEYyZRshS0im WiKiR2SrLUGjEfMnhHYyU8 ggVGhpcyByZXBvcnQgbWF5 OAzdH5c0YVIwvvYsqQm0uk VmOrYzFRSlZBS4LDhksZAs JHXkp2GuyvcfkDBoSz2zbC CmQGUyzX4eXOLbHHUhSSfq ZN3yoBh9QNDCbJPeuRIiRt RDMXLqOR33maDeVWJXaitn v5X2FIubPYOiu7UfnDUeX9 kpg3AtDNPdb49wAG2fn2M9 d3raUUG5JK8ul7IcPBLsqD JpxHQzZRBzh9Pxmzoqo5Ks MCNfdoGmr5DaIKRaimJhvF TuBISqtzHiab7vvcIzTIEc MTHlS1TjahgjcNvsfaJfCA Jneu3lxhAuCSB6HPCODWBf OBAsu8QzsN4fgCNEBFX5sV Imcj1osoWFoDAdWAFvik04 TSIiEB5pM6niELQoHDQfwf CawPMgf2ItUTKymAP7cMCf IH9ZOgUGf85aOTKuZIOJld RwINFjjWtfrJZ8dfH5fF1d IChGREEpLlx+IFRoZSBGRE XnFP0wmuKuh5HbodSguTqj PQDnwXHad1RkfFKfm6GwoI vds3CqqQCaiJTpXP9dPVPm clxwYXIgVVRNQiBMYWJvcm S0m0OrIRTpWOJjIUE7wXow qgq2MYBhzB9rKLKpD0vkuw vxIOxsFSSqi9PvqV0diYBL jQKox8XpvXWbeKBSsNGcVJ 4qdlLgGLcVTPsPYQG4qvDc AXIem1KqLHydX0zrB01emF fcuPi4gNL1UPX5cR7uZsu+ IFxwYXJccGFyIEFwcHJvcH GaVITstPmdiiFtC3VqawPk iB5dkBKspcGlMX2pLA6oZ6 O3fGPkCGCzspWjb5ybVArz dmUgYmVlbiByZXZpZXdlZC Yib6PjWZlfUFX4DIjmnmGa bmNsdWRpbmcgSCZFLCBTcG SdmLVrUGN6QTrpqbZtkkBf VJ0ciK4ajXybqV3sgFQrxU Z4kfhdSFRkQBBfcQoxUMNp RN3tvCVcISHvzaZNzUqefA DlpH7tY1YnYMKuFDMuxd3n SFZmwX7kPIpdx2EazuvmUQ QaLDFwTFOfeaNhsz5cIWPp kPXLPE3UIBoldLYoi2Ysil JgY1rTLNS8GYOpIpVnAnxt BAYxoHSqwVDgAHTgmw91AF LgfY6laGzrWBPqrS2itH1p jOqlhJ9nBwHmVtYbLSjaRM 9uNDXfF2nxqOMwTLYzSPYq V1lsFpUofA3cfAclPIjnZg IvHjEcUBlgKDU7fP== Embedded Images (test code = [id number]) [facility]CA2+2022-10-01 22:27:56 Test Item Value Reference Range Interpretation Comments PH (test code = 2) 7.35-7.45 H PCO2 (test code = See_Comment L [Automate d message] [id number]) The system [employer] generated this result transmit willow reference range : 35 - 45 mmHg. The reference range was not used to interpret this result as normal/abnormal . PO2 (test code = See_Comment H [Automated message] [id number]) The system [employer] generated this result transmit willow reference range : 80 - 100 mmHg. The reference range was not used to interpret this result as normal/abnormal . HCO3 (test code = See_Comment [Automate d message] [id number]) The system [employer] generated this result transmit willow reference range : 22 - 26 mEq/L. The reference range was not used to interpret this result as normal/abnormal . BE (test code = See_Comment H [Automated message] [id number]) The system [employer] generated this result transmit willow reference range : -3.0 - 3.0 mEq/ L. The reference r brianne was not used to interpret this result as normal/abnormal . THB (test code = 9.3 g/dL 13.5-18.0 L 7923981240) %O2HB (test code = 98.3 % 94.0-99.0 5413787750) %COHB ART (test code = 0.5 % 0.0-1.5 7950125895) %METHB ART (test code = 0.3 % 0.4-1.5 L 9643926785) VOL%O2 ART (test code = 13.3 % 15.0-23.0 L QUES 3806823167) NA (test code = 137 mmol/L 135-145 1131039742) K+ (test code = 3.3 mmol/L 3.5-5.0 L 8474750249) AC CA IONZ (test code = 3.90 mg/dL 4.50-5.30 L 9037120707) GLUCOSE (test code = 80 mg/dL 70-110 2178672235) Lab Interpretation Abnormal (test code = 73762-6) [facility]-01 22:27:56 Test Item Value Reference Range Interpretation Comments PH (test code = 2) 7.35-7.45 H PCO2 (test code = See_Comment L [Automate d message] [id number]) The system [employer] generated this result transmit willow reference range : 35 - 45 mmHg. The reference range was not used to interpret this result as normal/abnormal . PO2 (test code = See_Comment H [Automated message] [id number]) The system [employer] generated this result transmit willow reference range : 80 - 100 mmHg. The reference range was not used to interpret this result as normal/abnormal . HCO3 (test code = See_Comment [Automate d message] 4387954915) The system [employer] generated this result transmit willow reference range : 22 - 26 mEq/L. The reference range was not used to interpret this result as normal/abnormal . BE (test code = See_Comment H [Automated message] 8523047211) The system [employer] generated this result transmit willow reference range : -3.0 - 3.0 mEq/ L. The reference r brianne was not used to interpret this result as normal/abnormal . THB (test code = 9.3 g/dL 13.5-18.0 L 2238769346) %O2HB (test code = 98.3 % 94.0-99.0 3903453203) %COHB ART (test code = 0.5 % 0.0-1.5 1707860615) %METHB ART (test code = 0.3 % 0.4-1.5 L 0483663639) VOL%O2 ART (test code = 13.3 % 15.0-23.0 L QUES 7118087415) NA (test code = 137 mmol/L 135-145 4086626272) K+ (test code = 3.3 mmol/L 3.5-5.0 L 4412263818) AC CA IONZ (test code = 3.90 mg/dL 4.50-5.30 L 2266906157) GLUCOSE (test code = 80 mg/dL 70-110 9421755588) Lab Interpretation Abnormal (test code = 04286-8) [facility]CA2+2022-10-01 22:27:56 Test Item Value Reference Range Interpretation Comments PH (test code = 2) 7.35-7.45 H PCO2 (test code = See_Comment L [Automate d message] [id number]) The system [employer] generated this result transmit willow reference range : 35 - 45 mmHg. The reference range was not used to interpret this result as normal/abnormal . PO2 (test code = See_Comment H [Automated message] [id number]) The system [employer] generated this result transmit willow reference range : 80 - 100 mmHg. The reference range was not used to interpret this result as normal/abnormal . HCO3 (test code = See_Comment [Automate d message] 3314433034) The system [employer] generated this result transmit willow reference range : 22 - 26 mEq/L. The reference range was not used to interpret this result as normal/abnormal . BE (test code = See_Comment H [Automated message] 5936505960) The system [employer] generated this result transmit willow reference range : -3.0 - 3.0 mEq/ L. The reference r brianne was not used to interpret this result as normal/abnormal . THB (test code = 9.3 g/dL 13.5-18.0 L 3424797484) %O2HB (test code = 98.3 % 94.0-99.0 1433958280) %COHB ART (test code = 0.5 % 0.0-1.5 3067830728) %METHB ART (test code = 0.3 % 0.4-1.5 L 2334670570) VOL%O2 ART (test code = 13.3 % 15.0-23.0 L QUES 8559588922) NA (test code = 137 mmol/L 135-145 0575091724) K+ (test code = 3.3 mmol/L 3.5-5.0 L 1948874416) AC CA IONZ (test code = 3.90 mg/dL 4.50-5.30 L 0394209407) GLUCOSE (test code = 80 mg/dL 70-110 8032750744) Lab Interpretation Abnormal (test code = 45167-4) [facility]CA2+[facility]-10-01 22:27:56 Test Item Value Reference Range Interpretation Comments PH (test code = 2) 7.35-7.45 H PCO2 (test code = See_Comment L [Automate d message] 9872392409) The system [employer] generated this result transmit willow reference range : 35 - 45 mmHg. The reference range was not used to interpret this result as normal/abnormal . PO2 (test code = See_Comment H [Automated message] 0367349421) The system [employer] generated this result transmit willow reference range : 80 - 100 mmHg. The reference range was not used to interpret this result as normal/abnormal . HCO3 (test code = See_Comment [Automate d message] 8671321801) The system [employer] generated this result transmit willow reference range : 22 - 26 mEq/L. The reference range was not used to interpret this result as normal/abnormal . BE (test code = See_Comment H [Automated message] 6373399761) The system [employer] generated this result transmit willow reference range : -3.0 - 3.0 mEq/ L. The reference r brianne was not used to interpret this result as normal/abnormal . THB (test code = 9.3 g/dL 13.5-18.0 L 9554394649) %O2HB (test code = 98.3 % 94.0-99.0 2553804553) %COHB ART (test code = 0.5 % 0.0-1.5 8812277981) %METHB ART (test code = 0.3 % 0.4-1.5 L 1352108338) VOL%O2 ART (test code = 13.3 % 15.0-23.0 L QUES 6905134560) NA (test code = 137 mmol/L 135-145 0378851180) K+ (test code = 3.3 mmol/L 3.5-5.0 L 6214037667) AC CA IONZ (test code = 3.90 mg/dL 4.50-5.30 L 3933462614) GLUCOSE (test code = 80 mg/dL 70-110 4244180812) Lab Interpretation Abnormal (test code = 47512-6) [facility] and Screen - ONCE [id number] 07:11:05 Test Item Value Reference Range Interpretation Comments ABO & RH (test code A POSITIVE Performe d at [facility] = 20) Laboratory [facility] Blood [address] [address] Free: [phone] A No. [id number] IAT (test code = Negative Performed a t [facility] 1185) Laboratory [facility] Blood [address] [address]Omvl Free: [phone] A No. [id number] [facility] and Screen - ONCE [id number] 07:11:05 Test Item Value Reference Range Interpretation Comments ABO & RH (test code A POSITIVE Performe d at [facility] = 20) Laboratory [facility] Blood [address] s [address]Zwpg Free: [phone] A No. [id number] IAT (test code = Negative Performed a t [facility] 1185) Laboratory [facility] Blood [address] s [address]Vzyk Free: [phone] A No. [id number] [facility] and Screen - ONCE [id number] 07:11:05 Test Item Value Reference Range Interpretation Comments ABO & RH (test code A POSITIVE Performe d at [facility] = 20) Laboratory [facility] Blood [address] [place] [address] s [address]Udzd Free: [phone] A No. [id number] IAT (test code = Negative Performed a t [facility] 1185) Laboratory [facility] Blood [address] [place] [address]Ph[address] Free: [phone] A No. [id number] [facility] and Screen - ONCE [id number] 07:11:05 Test Item Value Reference Range Interpretation Comments ABO & RH (test code A POSITIVE Performe d at [facility] = 20) Laboratory [facility] Blood Bank3 [address] [facility] s [address]Eekh Free: [phone] A No. [id number] IAT (test code = Negative Performed a t [facility] 1185) Laboratory [facility] Blood Bank3 [address] [facility] s [address]Faey Free: [phone] A No. [id number] [facility]OLIC [facility] ([id number])2022-10-01 00:34:43 Test Item Value Reference Range Interpretation Comments NA (test code = 138 mmol/L 135-145 5460326332) K (test code = 4.5 mmol/L 3.5-5.0 3689426387) CL (test code = 90 mmol/L 98-108 L 5628663415) CO2 TOTAL (test code = 39 mmol/L 23-31 H 2957469689) AGAP (test code = 2-16 1101748175) BUN (test code = 46 mg/dL 7-23 H 8821821259) GLUCOSE (test code = 116 mg/dL 70-110 H 3489801606) CREATININE (test code = 1.25 mg/dL 0.60-1.25 7265929313) TOTAL BILI (test code = 0.8 mg/dL 0.1-1.2 5361966430) CALCIUM (test code = 8.6 mg/dL 8.6-10.6 1461180721) T PROTEIN (test code = 7.0 g/dL 6.3-8.2 7436142664) ALBUMIN (test code = 3.7 g/dL 3.5-5.0 3180546524) ALK PHOS (test code = 85 U/L 34-122 9491828725) ALTv (test code = 22 U/L 5-50 1742-6) AST(SGOT) (test code = 42 U/L 13-40 H 8907134882) eGFR (test code = mL/min/1.73m2 7833114761) LUZMARIA (test code = LUZMARIA) Association of [...] tests). Lab Interpretation Abnormal (test code = 69514-4) [facility]. METABOLIC PANEL ([id number])2022-10-01 00:34:43 Test Item Value Reference Range Interpretation Comments NA (test code = 138 mmol/L 135-145 7634379765) K (test code = 4.5 mmol/L 3.5-5.0 5629662182) CL (test code = 90 mmol/L 98-108 L 4749894788) CO2 TOTAL (test code = 39 mmol/L 23-31 H 0957888439) AGAP (test code = 2-16 7658298835) BUN (test code = 46 mg/dL 7-23 H 4804813069) GLUCOSE (test code = 116 mg/dL 70-110 H 6027364140) CREATININE (test code = 1.25 mg/dL 0.60-1.25 5520304878) TOTAL BILI (test code = 0.8 mg/dL 0.1-1.3 5507445971) CALCIUM (test code = 8.6 mg/dL 8.6-10.6 5860758410) T PROTEIN (test code = 7.0 g/dL 6.3-8.2 8860775003) ALBUMIN (test code = 3.7 g/dL 3.5-5.0 3440986920) ALK PHOS (test code = 85 U/L 34-122 4683184499) ALTv (test code = 22 U/L 5-50 1742-6) AST(SGOT) (test code = 42 U/L 13-40 H 3982045495) eGFR (test code = mL/min/1.73m2 9782910398) LUZMARIA (test code = LUZMARIA) Association of [...] tests). Lab Interpretation Abnormal (test code = 54120-2) [facility]. METABOLIC PANEL ([id number])2022-10-01 00:34:43 Test Item Value Reference Range Interpretation Comments NA (test code = 138 mmol/L 135-145 3622019743) K (test code = 4.5 mmol/L 3.5-5.0 2566810422) CL (test code = 90 mmol/L 98-108 L 1892867935) CO2 TOTAL (test code = 39 mmol/L 23-31 H 2382459760) AGAP (test code = 2-16 4169047606) BUN (test code = 46 mg/dL 7-23 H 0672840251) GLUCOSE (test code = 116 mg/dL 70-110 H 1288499619) CREATININE (test code = 1.25 mg/dL 0.60-1.25 9200931260) TOTAL BILI (test code = 0.8 mg/dL 0.1-1.7 1904182905) CALCIUM (test code = 8.6 mg/dL 8.6-10.6 8095359216) T PROTEIN (test code = 7.0 g/dL 6.3-8.2 0065558218) ALBUMIN (test code = 3.7 g/dL 3.5-5.0 3268831967) ALK PHOS (test code = 85 U/L 34-122 5298552848) ALTv (test code = 22 U/L 5-50 1742-6) AST(SGOT) (test code = 42 U/L 13-40 H 6239742019) eGFR (test code = mL/min/1.73m2 7794791375) LUZMARIA (test code = LUZMARIA) Association of [...] tests). Lab Interpretation Abnormal (test code = 28178-1) [facility]. METABOLIC PANEL (01570)2022-10-01 00:34:43 Test Item Value Reference Range Interpretation Comments NA (test code = 138 mmol/L 135-145 8793473838) K (test code = 4.5 mmol/L 3.5-5.0 5920201451) CL (test code = 90 mmol/L 98-108 L 3621508950) CO2 TOTAL (test code = 39 mmol/L 23-31 H 9195049519) AGAP (test code = 2-16 9382171568) BUN (test code = 46 mg/dL 7-23 H 0140101704) GLUCOSE (test code = 116 mg/dL 70-110 H 8826929403) CREATININE (test code = 1.25 mg/dL 0.60-1.25 6385990382) TOTAL BILI (test code = 0.8 mg/dL 0.1-1.7 7050278760) CALCIUM (test code = 8.6 mg/dL 8.6-10.6 4961618068) T PROTEIN (test code = 7.0 g/dL 6.3-8.2 7039260357) ALBUMIN (test code = 3.7 g/dL 3.5-5.0 8095751169) ALK PHOS (test code = 85 U/L 34-122 7670317302) ALTv (test code = 22 U/L 5-50 1742-6) AST(SGOT) (test code = 42 U/L 13-40 H 1950271442) eGFR (test code = mL/min/1.73m2 4202029688) LUZMARIA (test code = LUZMARIA) Association of [...] tests). Lab Interpretation Abnormal (test code = 10368-8) [facility]:23 Test Item Value Reference Range Interpretation Comments LIPASE (test code = 9108001389) 450 U/L 0-220 H Lab Interpretation (test code = Abnormal 81868-0) [facility]2022-11-21 00:34:23 Test Item Value Reference Range Interpretation Comments LIPASE (test code = 0596524160) 450 U/L 0-220 H Lab Interpretation (test code = Abnormal 93144-2) [facility]2022-11-21 00:34:23 Test Item Value Reference Range Interpretation Comments LIPASE (test code = 6609133331) 450 U/L 0-220 H Lab Interpretation (test code = Abnormal 20127-8) [facility] 00:34:23 Test Item Value Reference Range Interpretation Comments LIPASE (test code = 4172670358) 450 U/L 0-220 H Lab Interpretation (test code = Abnormal 42525-1) [facility] WITH [id number] 00:19:05 Test Item Value Reference Range Interpretation Comments [...] as normal/abnormal . HGB (test code = 11.6 g/dL 12.2-16.4 L 718-7) HCT (test code = 35.2 % 38.4-49.3 L 4544-3) MCV (test code = 87.6 fL 81.7-95.6 787-2) MCH (test code = 28.9 pg 26.1-32.7 785-6) MCHC (test code = 33.0 g/dL 31.2-35.0 786-4) RDW-SD (test code = 47.4 fL 38.5-51.6 29007-3) RDW-CV (test code = 14.6 % 12.1-15.4 788-0) PLT (test code = See_Comment [Automated 777-3) message] The sy stem which generated this result transmitted reference range : 150 - 328 10*3/ ?L. The reference r brianne was not used to interpret this result as normal/abnormal . MPV (test code = 10.7 fL 9.8-13.0 03817-1) NRBC/100 WBC (test See_Comment [Automat ed code = 7350028136) message] The system which generated this result transmitted reference range : 0.0 - 10.0 /100 WBCs. The refer ence range was not u sed to interpret th is result as normal/abnormal . NRBC x10^3 (test code See_Comment [Auto mated = 2184763292) message] The s ystem which generated this result transmitted reference range : 10*3/?L. The reference range was not used to interpret this result as normal/abnormal . GRAN MAT (NEUT) % 82.6 % (test code = 770-8) IMM GRAN % (test code 0.50 % = 5818348716) LYMPH % (test code = 9.0 % 736-9) MONO % (test code = 6.5 % 5905-5) EOS % (test code = 0.7 % 713-8) BASO % (test code = 0.7 % 706-2) GRAN MAT x10^3(ANC) 7.74 10*3/uL 1.99-6.95 H (test code = 1914028236) IMM GRAN x10^3 (test 0.05 10*3/uL 0.00-0.06 code = 5642124233) LYMPH x10^3 (test code 0.84 10*3/uL 1.09-3.23 L = 731-0) MONO x10^3 (test code 0.61 10*3/uL 0.36-1.02 = 742-7) EOS x10^3 (test code = 0.07 10*3/uL 0.06-0.53 711-2) BASO x10^3 (test code 0.07 10*3/uL 0.01-0.09 = 704-7) Lab Interpretation Abnormal (test code = 50350-4) [facility] WITH [id number] 00:19:05 Test Item Value Reference Range Interpretation Comments WBC (test code = See_Comment [Automated 6690-2) message] The sy stem which generated this result transmitted reference range : 4.20 - 10.70 10*3/?L. The reference range was not used to interpret this result as normal/abnormal . RBC (test code = See_Comment L [Automated 119-8) message] The sy stem which generated this result transmitted reference range : 4.26 - 5.52 10*6/?L. The reference range was not used to interpret this result as normal/abnormal . HGB (test code = 11.6 g/dL 12.2-16.4 L 718-7) HCT (test code = 35.2 % 38.4-49.3 L 4544-3) MCV (test code = 87.6 fL 81.7-95.6 787-2) MCH (test code = 28.9 pg 26.1-32.7 785-6) MCHC (test code = 33.0 g/dL 31.2-35.0 786-4) RDW-SD (test code = 47.4 fL 38.5-51.6 44872-5) RDW-CV (test code = 14.6 % 12.1-15.4 788-0) PLT (test code = See_Comment [Automated 777-3) message] The sy stem which generated this result transmitted reference range : 150 - 328 10*3/ ?L. The reference r brianne was not used to interpret this result as normal/abnormal . MPV (test code = 10.7 fL 9.8-13.0 00485-7) NRBC/100 WBC (test See_Comment [Automat ed code = 5412432580) message] The system which generated this result transmitted reference range : 0.0 - 10.0 /100 WBCs. The refer ence range was not u sed to interpret th is result as normal/abnormal . NRBC x10^3 (test code See_Comment [Auto mated = 2434470226) message] The s ystem which generated this result transmitted reference range : 10*3/?L. The reference range was not used to interpret this result as normal/abnormal . GRAN MAT (NEUT) % 82.6 % (test code = 770-8) IMM GRAN % (test code 0.50 % = 9297304945) LYMPH % (test code = 9.0 % 736-9) MONO % (test code = 6.5 % 5905-5) EOS % (test code = 0.7 % 713-8) BASO % (test code = 0.7 % 706-2) GRAN MAT x10^3(ANC) 7.74 10*3/uL 1.99-6.95 H (test code = 9468616694) IMM GRAN x10^3 (test 0.05 10*3/uL 0.00-0.06 code = 3192441263) LYMPH x10^3 (test code 0.84 10*3/uL 1.09-3.23 L = 731-0) MONO x10^3 (test code 0.61 10*3/uL 0.36-1.02 = 742-7) EOS x10^3 (test code = 0.07 10*3/uL 0.06-0.53 711-2) BASO x10^3 (test code 0.07 10*3/uL 0.01-0.09 = 704-7) Lab Interpretation Abnormal (test code = 14379-7) [facility]BACTEC BOTTLE[facility]2022-09-25 18:18:18 Test Item Value Reference Range Interpretation Comments Body Fluid No organisms No growth Previous Culture isolated preliminary Screen-Aerobic verified resu lt was (test code = Culture In Prog ress 2742608250) on 09/20/2022 a t 0801 CSTPreviou s preliminary verified result was No growth at 24 hours on 2021 at 0501 CSTPrev ious preliminary verified result was Culture In Prog ress on 09/21/2022 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 No growth Previous Culture See Body Fluid preliminary Screen-Anaerobic Culture for verified re sult was (test code = additional Culture In Prog ress 1372314904) information. on 09/20/2022 a t 0801 CSTPreviou s preliminary verified result was No growth at 24 hours on 2021 at 0501 CSTPrev ious preliminary verified result was Culture positiv e. ?See Body Fluid Culture for additional information. on 09/21/2022 at 2 329 CSTThis is a corrected resul t. ?Previous resul t was No organism s isolated on 09/25/2022 at 0 938 [employer] UN[employer] [facility] (BACTEC BOTTLE)2022-09-25 18:18:18 Test Item Value Reference Range Interpretation Comments Body Fluid No organisms No growth Previous Culture isolated preliminary Screen-Aerobic verified resu lt was (test code = Culture In Prog ress 6092893388) on 09/20/2022 a t 0801 CSTPreviou s preliminary verified result was No growth at 24 hours on 2021 at 0501 CSTPrev ious preliminary verified result was Culture In Prog ress on 09/21/2022 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 No growth Previous Culture See Body Fluid preliminary Screen-Anaerobic Culture for verified re sult was (test code = additional Culture In Prog ress 2518803481) information. on 09/20/2022 a t 0801 CSTPreviou s preliminary verified result was No growth at 24 hours on 2021 at 0501 CSTPrev ious preliminary verified result was Culture positiv e. ?See Body Fluid Culture for additional information. on 09/21/2022 at 2 329 CSTThis is a corrected resul t. ?Previous resul t was No organism s isolated on 09/25/2022 at 0 938 [employer] [facility] FLUID (BACTEC BOTTLE)2022-09-25 18:18:18 Test Item Value Reference Range Interpretation Comments Body Fluid No organisms No growth Previous Culture isolated preliminary Screen-Aerobic verified resu lt was (test code = Culture In Prog ress 5566554102) on 09/20/2022 a t 0801 CSTPreviou s preliminary verified result was No growth at 24 hours on 2021 at 0501 CSTPrev ious preliminary verified result was Culture In Prog ress on 09/21/2022 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 No growth Previous Culture See Body Fluid preliminary Screen-Anaerobic Culture for verified re sult was (test code = additional Culture In Prog ress 3341538823) information. on 09/20/2022 a t 0801 CSTPreviou s preliminary verified result was No growth at 24 hours on 2021 at 0501 CSTPrev ious preliminary verified result was Culture positiv e. ?See Body Fluid Culture for additional information. on 09/21/2022 at 2 329 CSTThis is a corrected resul t. ?Previous resul t was No organism s isolated on 09/25/2022 at 0 938 [employer] [facility] (BACTEC BOTTLE)2022-09-25 18:18:18 Test Item Value Reference Range Interpretation Comments Body Fluid No organisms No growth Previous Culture isolated preliminary Screen-Aerobic verified resu lt was (test code = Culture In Prog ress 8081553287) on 09/20/2022 a t 0801 CSTPreviou s preliminary verified result was No growth at 24 hours on 2021 at 0501 CSTPrev ious preliminary verified result was Culture In Prog ress on 09/21/2022 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 No growth Previous Culture See Body Fluid preliminary Screen-Anaerobic Culture for verified re sult was (test code = additional Culture In Prog ress 5270888387) information. on 09/20/2022 a t 0801 CSTPreviou s preliminary verified result was No growth at 24 hours on 2021 at 0501 CSTPrev ious preliminary verified result was Culture positiv e. ?See Body Fluid Culture for additional information. on 09/21/2022 at 2 329 CSTThis is a corrected resul t. ?Previous resul t was No organism s isolated on 09/25/2022 at 0 938 [employer] [facility] (BACTEC BOTTLE)2022-09-25 18:18:18 Test Item Value Reference Range Interpretation Comments Body Fluid No organisms No growth Previous Culture isolated preliminary Screen-Aerobic verified resu lt was (test code = Culture In Prog ress 9441198035) on 09/20/2022 a t 0801 CSTPreviou s preliminary verified result was No growth at 24 hours on 2021 at 0501 CSTPrev ious preliminary verified result was Culture In Prog ress on 09/21/2022 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 No growth Previous Culture See Body Fluid preliminary Screen-Anaerobic Culture for verified re sult was (test code = additional Culture In Prog ress 8763111297) information. on 09/20/2022 a t 0801 CSTPreviou s preliminary verified result was No growth at 24 hours on 2021 at 0501 CSTPrev ious preliminary verified result was Culture positiv e. ?See Body Fluid Culture for additional information. on 09/21/2022 at 2 329 CSTThis is a corrected resul t. ?Previous resul t was No organism s isolated on 09/25/2022 at 0 938 [employer] [facility]2022-[facility]-15 12:34:31 Test Item Value Reference Range Interpretation Comments MAGNESIUM (test code = 9253886825) 1.7 mg/dL 1.7-2.4 Lab Interpretation (test code = Normal 71725-2) [facility] Test Item Value Reference Range Interpretation Comments MAGNESIUM (test code = 8014004727) 1.7 mg/dL 1.7-2.4 Lab Interpretation (test code = Normal 21798-3) [facility] 12:34:31 Test Item Value Reference Range Interpretation Comments MAGNESIUM (test code = 5389519553) 1.7 mg/dL 1.7-2.4 Lab Interpretation (test code = Normal 01312-9) [facility] METABOLIC PANEL (NA, K, CL, CO2, GLUCOSE, BUN, CREATININE, CA)2022-09-25 12:29:07 Test Item Value Reference Range Interpretation Comments NA (test code = 135 mmol/L 135-145 4277386521) K (test code = 4.2 mmol/L 3.5-5.0 1240006297) CL (test code = 102 mmol/L 98-108 5933292145) CO2 TOTAL (test code = 29 mmol/L 23-31 3691470859) AGAP (test code = 2-16 6153620577) BUN (test code = 21 mg/dL 7-23 4024957737) GLUCOSE (test code = 97 mg/dL 70-110 7297742280) CREATININE (test code = 0.81 mg/dL 0.60-1.25 1752728993) CALCIUM (test code = 7.8 mg/dL 8.6-10.6 L 6832498812) eGFR (test code = mL/min/1.73m2 4508177969) LUZMARIA (test code = LUZMARIA) Association of [...] tests). Lab Interpretation Abnormal (test code = 10467-0) [facility] PAN[facility] (28950) (ALB,T.PRO,BILI T,BU/BC,ALT,AST,ALK PHOS)2022-09-25 12:29:07 Test Item Value Reference Range Interpretation Comments TOTAL BILI (test code = 3611502896) 0.6 mg/dL 0.1-1.1 BILI UNCON (test code = 6307580610) 0.2 mg/dL 0.1-1.1 BILI CONJ (test code = 0033906256) 0.0 mg/dL 0.0-0.3 T PROTEIN (test code = 3614044112) 5.8 g/dL 6.3-8.2 L ALBUMIN (test code = 6461468574) 2.8 g/dL 3.5-5.0 L ALK PHOS (test code = 5391427250) 66 U/L 34-122 ALTv (test code = 1742-6) 21 U/L 5-50 AST(SGOT) (test code = 8921723568) 50 U/L 13-40 H Lab Interpretation (test code = Abnormal 42339-2) [facility] (93362) (ALB,T.PRO,BILI T,BU/BC,ALT,AST,ALK PHOS)2022-09-25 12:29:07 Test Item Value Reference Range Interpretation Comments TOTAL BILI (test code = 8111930077) 0.6 mg/dL 0.1-1.1 BILI UNCON (test code = 8271720874) 0.2 mg/dL 0.1-1.1 BILI CONJ (test code = 9763585787) 0.0 mg/dL 0.0-0.3 T PROTEIN (test code = 4227399250) 5.8 g/dL 6.3-8.2 L ALBUMIN (test code = 1540637103) 2.8 g/dL 3.5-5.0 L ALK PHOS (test code = 2829928155) 66 U/L 34-122 ALTv (test code = 1742-6) 21 U/L 5-50 AST(SGOT) (test code = 8707039272) 50 U/L 13-40 H Lab Interpretation (test code = Abnormal 58881-1) [facility] METABOLIC PANEL (NA, K, CL, CO2, GLUCOSE, BUN, CREATININE, CA)2022-09-25 12:29:07 Test Item Value Reference Range Interpretation Comments NA (test code = 135 mmol/L 135-145 7417120200) K (test code = 4.2 mmol/L 3.5-5.0 1633781753) CL (test code = 102 mmol/L 98-108 1065130846) CO2 TOTAL (test code = 29 mmol/L 23-31 9176155718) AGAP (test code = 2-16 4569779809) BUN (test code = 21 mg/dL 7-23 9200622986) GLUCOSE (test code = 97 mg/dL 70-110 3195620036) CREATININE (test code = 0.81 mg/dL 0.60-1.25 9550586213) CALCIUM (test code = 7.8 mg/dL 8.6-10.6 L 7150670689) eGFR (test code = mL/min/1.73m2 5005400666) LUZMARIA (test code = LUZMARIA) Association of [...] tests). Lab Interpretation Abnormal (test code = 41647-1) [facility] (00974) (ALB,T.PRO,BILI T,BU/BC,ALT,AST,ALK PHOS)2022-09-25 12:29:07 Test Item Value Reference Range Interpretation Comments TOTAL BILI (test code = 8313431135) 0.6 mg/dL 0.1-1.1 BILI UNCON (test code = 1329784856) 0.2 mg/dL 0.1-1.1 BILI CONJ (test code = 1480311668) 0.0 mg/dL 0.0-0.3 T PROTEIN (test code = 1183505736) 5.8 g/dL 6.3-8.2 L ALBUMIN (test code = 5908552308) 2.8 g/dL 3.5-5.0 L ALK PHOS (test code = 3201705419) 66 U/L 34-122 ALTv (test code = 1742-6) 21 U/L 5-50 AST(SGOT) (test code = 0033351472) 50 U/L 13-40 H Lab Interpretation (test code = Abnormal 88318-0) [facility] METABOLIC PANEL (NA, K, CL, CO2, GLUCOSE, BUN, CREATININE, CA)2022-09-25 12:29:07 Test Item Value Reference Range Interpretation Comments NA (test code = 135 mmol/L 135-145 4340935389) K (test code = 4.2 mmol/L 3.5-5.0 0743788854) CL (test code = 102 mmol/L 98-108 3997747107) CO2 TOTAL (test code = 29 mmol/L 23-31 6025147584) AGAP (test code = 2-16 6808630404) BUN (test code = 21 mg/dL 7-23 1209940085) GLUCOSE (test code = 97 mg/dL 70-110 5877874273) CREATININE (test code = 0.81 mg/dL 0.60-1.25 7625979977) CALCIUM (test code = 7.8 mg/dL 8.6-10.6 L 8699068476) eGFR (test code = mL/min/1.73m2 8316329015) LUZMARIA (test code = LUZMARIA) Association of [...] tests). Lab Interpretation Abnormal (test code = 80464-8) [facility] [id number] 12:12:26 Test Item Value Reference Range Interpretation Comments APTT Patient (test code = See_Comment [ Automated message] 3173-2) The system [employer] generated this result transmitted ref erence range: 26 - 36 Seconds. The re ference range was not u sed to interpret this result as normal/abnor mal. Lab Interpretation (test Normal code = 24777-4) [facility] CenterProthrombin Time / [id number] 12:12:26 Test Item Value Reference Range Interpretation Comments PROTIME PATIENT (test See_Comment H [Auto mated message] code = 5964-2) The system [employer] generated this result transmitted ref erence range: 10.1 - 1 2.6 Seconds. The reference range was not used to int erpret this result as normal/abnormal . INR (test code = 6301-6) Nor mal INR <1.1; Warfarin Therap eutic range 2.0 to 3. 0 or 2.5 to 3.5, dep ending upon the indica tions. Lab Interpretation (test Abnormal code = 43220-7) [facility] Center[facility]IB[facility]IN[facility]EN2022-[facility]-15 12:12:26 Test Item Value Reference Range Interpretation Comments Fibrinogen (test code = 9421970862) 321 mg/dL 167-453 Lab Interpretation (test code = Normal 79197-3) [facility] CenterProthrombin Time / [id number] 12:12:26 Test Item Value Reference Range Interpretation Comments PROTIME PATIENT (test See_Comment H [Auto mated message] code = 5964-2) The system [employer] generated this result transmitted ref erence range: 10.1 - 1 2.6 Seconds. The reference range was not used to int erpret this result as normal/abnormal . INR (test code = 6301-6) Nor mal INR <1.1; Warfarin Therap eutic range 2.0 to 3. 0 or 2.5 to 3.5, dep ending upon the indica tions. Lab Interpretation (test Abnormal code = 26930-6) [facility] CenterACT[facility] THRMPLAS [id number] 12:12:26 Test Item Value Reference Range Interpretation Comments APTT Patient (test code = See_Comment [ Automated message] 3173-2) The system [employer] generated this result transmitted ref erence range: 26 - 36 Seconds. The re ference range was not u sed to interpret this result as normal/abnor mal. Lab Interpretation (test Normal code = 36665-2) [facility]2022-[facility]-15 12:12:26 Test Item Value Reference Range Interpretation Comments Fibrinogen (test code = 2484632463) 321 mg/dL 167-453 Lab Interpretation (test code = Normal 36570-9) [facility] CenterProth[facility] Time / [id number] 12:12:26 Test Item Value Reference Range Interpretation Comments PROTIME PATIENT (test See_Comment H [Auto mated message] code = 5964-2) The system [employer] generated this result transmitted ref erence range: 10.1 - 1 2.6 Seconds. The reference range was not used to int erpret this result as normal/abnormal . INR (test code = 6301-6) Nor mal INR <1.1; Warfarin Therap eutic range 2.0 to 3. 0 or 2.5 to 3.5, dep ending upon the indica tions. Lab Interpretation (test Abnormal code = 44407-6) [facility] [id number] 12:12:26 Test Item Value Reference Range Interpretation Comments APTT Patient (test code = See_Comment [ Automated message] 3173-2) The system [employer] generated this result transmitted ref erence range: 26 - 36 Seconds. The re ference range was not u sed to interpret this result as normal/abnor mal. Lab Interpretation (test Normal code = 17981-2) [facility]2022-[facility]-15 12:12:26 Test Item Value Reference Range Interpretation Comments Fibrinogen (test code = 9497529564) 321 mg/dL 167-453 Lab Interpretation (test code = Normal 07908-9) [facility] CenterCB WITH [id number] 12:02:44 Test Item Value Reference Range Interpretation Comments WBC (test code = See_Comment L [Automated 6690-2) message] The sy stem which [...] as normal/abnormal . HGB (test code = 8.3 g/dL 12.2-16.4 L 718-7) HCT (test code = 24.5 % 38.4-49.3 L 4544-3) MCV (test code = 86.6 fL 81.7-95.6 787-2) MCH (test code = 29.3 pg 26.1-32.7 785-6) MCHC (test code = 33.9 g/dL 31.2-35.0 786-4) RDW-SD (test code = 49.0 fL 38.5-51.6 19537-2) RDW-CV (test code = 15.4 % 12.1-15.4 788-0) PLT (test code = See_Comment L [Automated 777-3) message] The sy stem which generated this result transmitted reference range : 150 - 328 10*3/ ?L. The reference r brianne was not used to interpret this result as normal/abnormal . MPV (test code = 10.9 fL 9.8-13.0 56489-5) NRBC/100 WBC (test See_Comment [Automat ed code = 1589610193) message] The system which generated this result transmitted reference range : 0.0 - 10.0 /100 WBCs. The refer ence range was not u sed to interpret th is result as normal/abnormal . NRBC x10^3 (test code See_Comment [Auto mated = 4614576244) message] The s ystem which generated this result transmitted reference range : 10*3/?L. The reference range was not used to interpret this result as normal/abnormal . GRAN MAT (NEUT) % 68.3 % (test code = 770-8) IMM GRAN % (test code 0.60 % = 5454698024) LYMPH % (test code = 18.8 % 736-9) MONO % (test code = 7.7 % 5905-5) EOS % (test code = 3.7 % 713-8) BASO % (test code = 0.9 % 706-2) GRAN MAT x10^3(ANC) 2.21 10*3/uL 1.99-6.95 (test code = 1090475426) IMM GRAN x10^3 (test 0.00-0.06 code = 7814207326) LYMPH x10^3 (test code 0.61 10*3/uL 1.09-3.23 L = 731-0) MONO x10^3 (test code 0.25 10*3/uL 0.36-1.02 L = 742-7) EOS x10^3 (test code = 0.12 10*3/uL 0.06-0.53 711-2) BASO x10^3 (test code 0.03 10*3/uL 0.01-0.09 = 704-7) Lab Interpretation Abnormal (test code = 71660-9) [facility] WITH [id number] 12:02:44 Test Item Value Reference Range Interpretation Comments WBC (test code = See_Comment L [Automated 6690-2) message] The sy stem which [...] as normal/abnormal . HGB (test code = 8.3 g/dL 12.2-16.4 L 718-7) HCT (test code = 24.5 % 38.4-49.3 L 4544-3) MCV (test code = 86.6 fL 81.7-95.6 787-2) MCH (test code = 29.3 pg 26.1-32.7 785-6) MCHC (test code = 33.9 g/dL 31.2-35.0 786-4) RDW-SD (test code = 49.0 fL 38.5-51.6 13928-6) RDW-CV (test code = 15.4 % 12.1-15.4 788-0) PLT (test code = See_Comment L [Automated 777-3) message] The sy stem which generated this result transmitted reference range : 150 - 328 10*3/ ?L. The reference r brianne was not used to interpret this result as normal/abnormal . MPV (test code = 10.9 fL 9.8-13.0 31345-8) NRBC/100 WBC (test See_Comment [Automat ed code = 5280033542) message] The system which generated this result transmitted reference range : 0.0 - 10.0 /100 WBCs. The refer ence range was not u sed to interpret th is result as normal/abnormal . NRBC x10^3 (test code See_Comment [Auto mated = 3463682553) message] The s ystem which generated this result transmitted reference range : 10*3/?L. The reference range was not used to interpret this result as normal/abnormal . GRAN MAT (NEUT) % 68.3 % (test code = 770-8) IMM GRAN % (test code 0.60 % = 5262803565) LYMPH % (test code = 18.8 % 736-9) MONO % (test code = 7.7 % 5905-5) EOS % (test code = 3.7 % 713-8) BASO % (test code = 0.9 % 706-2) GRAN MAT x10^3(ANC) 2.21 10*3/uL 1.99-6.95 (test code = 4607540613) IMM GRAN x10^3 (test 0.00-0.06 code = 3193241067) LYMPH x10^3 (test code 0.61 10*3/uL 1.09-3.23 L = 731-0) MONO x10^3 (test code 0.25 10*3/uL 0.36-1.02 L = 742-7) EOS x10^3 (test code = 0.12 10*3/uL 0.06-0.53 711-2) BASO x10^3 (test code 0.03 10*3/uL 0.01-0.09 = 704-7) Lab Interpretation Abnormal (test code = 75193-9) [facility] WITH [id number] 12:02:44 Test Item Value Reference Range Interpretation Comments WBC (test code = See_Comment L [Automated 6690-2) message] The sy stem which [...] as normal/abnormal . HGB (test code = 8.3 g/dL 12.2-16.4 L 718-7) HCT (test code = 24.5 % 38.4-49.3 L 4544-3) MCV (test code = 86.6 fL 81.7-95.6 787-2) MCH (test code = 29.3 pg 26.1-32.7 785-6) MCHC (test code = 33.9 g/dL 31.2-35.0 786-4) RDW-SD (test code = 49.0 fL 38.5-51.6 39381-3) RDW-CV (test code = 15.4 % 12.1-15.4 788-0) PLT (test code = See_Comment L [Automated 777-3) message] The sy stem which generated this result transmitted reference range : 150 - 328 10*3/ ?L. The reference r brianne was not used to interpret this result as normal/abnormal . MPV (test code = 10.9 fL 9.8-13.0 69014-0) NRBC/100 WBC (test See_Comment [Automat ed code = 4208740438) message] The system which generated this result transmitted reference range : 0.0 - 10.0 /100 WBCs. The refer ence range was not u sed to interpret th is result as normal/abnormal . NRBC x10^3 (test code See_Comment [Auto mated = 3729986062) message] The s ystem which generated this result transmitted reference range : 10*3/?L. The reference range was not used to interpret this result as normal/abnormal . GRAN MAT (NEUT) % 68.3 % (test code = 770-8) IMM GRAN % (test code 0.60 % = 4267276162) LYMPH % (test code = 18.8 % 736-9) MONO % (test code = 7.7 % 5905-5) EOS % (test code = 3.7 % 713-8) BASO % (test code = 0.9 % 706-2) GRAN MAT x10^3(ANC) 2.21 10*3/uL 1.99-6.95 (test code = 5308731197) IMM GRAN x10^3 (test 0.00-0.06 code = 8868279635) LYMPH x10^3 (test code 0.61 10*3/uL 1.09-3.23 L = 731-0) MONO x10^3 (test code 0.25 10*3/uL 0.36-1.02 L = 742-7) EOS x10^3 (test code = 0.12 10*3/uL 0.06-0.53 711-2) BASO x10^3 (test code 0.03 10*3/uL 0.01-0.09 = 704-7) Lab Interpretation Abnormal (test code = 63610-9) [facility] METABOLIC PANEL (NA, K, CL, CO2, GLUCOSE, BUN, CREATININE, CA)2022-09-24 10:31:13 Test Item Value Reference Range Interpretation Comments NA (test code = 136 mmol/L 135-145 1642177425) K (test code = 4.5 mmol/L 3.5-5.0 2778161116) CL (test code = 104 mmol/L 98-108 4820569766) CO2 TOTAL (test code = 28 mmol/L 23-31 3348702139) AGAP (test code = 2-16 1549636699) BUN (test code = 22 mg/dL 7-23 4653961081) GLUCOSE (test code = 108 mg/dL 70-110 1614000346) CREATININE (test code = 0.85 mg/dL 0.60-1.25 3742841009) CALCIUM (test code = 7.8 mg/dL 8.6-10.6 L 7659047691) eGFR (test code = mL/min/1.73m2 6908877947) LUZMARIA (test code = LUZMARIA) Association of [...] tests). Lab Interpretation Abnormal (test code = 09693-1) [facility]20[facility] 10:31:13 Test Item Value Reference Range Interpretation Comments MAGNESIUM (test code = 6671830053) 1.9 mg/dL 1.7-2.4 Lab Interpretation (test code = Normal 11606-5) [facility]2022-[facility]-14 10:15:32 Test Item Value Reference Range Interpretation Comments Fibrinogen (test code = 3254880889) 331 mg/dL 167-453 Lab Interpretation (test code = Normal 86010-8) [facility] WITH [id number] 10:06:15 Test Item Value Reference Range Interpretation Comments WBC (test code = See_Comment L [Automated 6690-2) message] The sy stem which [...] as normal/abnormal . HGB (test code = 8.2 g/dL 12.2-16.4 L 718-7) HCT (test code = 24.6 % 38.4-49.3 L 4544-3) MCV (test code = 87.9 fL 81.7-95.6 787-2) MCH (test code = 29.3 pg 26.1-32.7 785-6) MCHC (test code = 33.3 g/dL 31.2-35.0 786-4) RDW-SD (test code = 51.7 fL 38.5-51.6 H 29521-0) RDW-CV (test code = 15.9 % 12.1-15.4 H 788-0) PLT (test code = See_Comment L [Automated 777-3) message] The sy stem which generated this result transmitted reference range : 150 - 328 10*3/ ?L. The reference r brianne was not used to interpret this result as normal/abnormal . MPV (test code = 10.8 fL 9.8-13.0 22873-5) NRBC/100 WBC (test See_Comment [Automat ed code = 2952168240) message] The system which generated this result transmitted reference range : 0.0 - 10.0 /100 WBCs. The refer ence range was not u sed to interpret th is result as normal/abnormal . NRBC x10^3 (test code See_Comment [Auto mated = 5798653248) message] The s ystem which generated this result transmitted reference range : 10*3/?L. The reference range was not used to interpret this result as normal/abnormal . GRAN MAT (NEUT) % 65.5 % (test code = 770-8) IMM GRAN % (test code 0.30 % = 1028682855) LYMPH % (test code = 19.4 % 736-9) MONO % (test code = 10.6 % 5905-5) EOS % (test code = 3.2 % 713-8) BASO % (test code = 1.0 % 706-2) GRAN MAT x10^3(ANC) 2.03 10*3/uL 1.99-6.95 (test code = 1469878418) IMM GRAN x10^3 (test 0.00-0.06 code = 4493894907) LYMPH x10^3 (test code 0.60 10*3/uL 1.09-3.23 L = 731-0) MONO x10^3 (test code 0.33 10*3/uL 0.36-1.02 L = 742-7) EOS x10^3 (test code = 0.10 10*3/uL 0.06-0.53 711-2) BASO x10^3 (test code 0.03 10*3/uL 0.01-0.09 = 704-7) Lab Interpretation Abnormal (test code = 25593-4) [facility] METABOLIC PANEL (NA, K, CL, CO2, GLUCOSE, BUN, CREATININE, CA)2022-09-23 19:26:59 Test Item Value Reference Range Interpretation Comments NA (test code = 136 mmol/L 135-145 3284806662) K (test code = 4.4 mmol/L 3.5-5.0 6183490143) CL (test code = 105 mmol/L 98-108 0452037980) CO2 TOTAL (test code = 27 mmol/L 23-31 4481675140) AGAP (test code = 2-16 0873739474) BUN (test code = 21 mg/dL 7-23 4124751545) GLUCOSE (test code = 115 mg/dL 70-110 H 4188415462) CREATININE (test code = 0.92 mg/dL 0.60-1.25 2007711862) CALCIUM (test code = 7.7 mg/dL 8.6-10.6 L 8466065584) eGFR (test code = mL/min/1.73m2 2660906887) LUZMARIA (test code = LUZMARIA) Association of [...] tests). Lab Interpretation Abnormal (test code = 10776-2) [facility]2022-[facility]-13 19:26:59 Test Item Value Reference Range Interpretation Comments MAGNESIUM (test code = 7454797800) 1.8 mg/dL 1.7-2.4 Lab Interpretation (test code = Normal 70383-2) [facility] CenterCYTO ABDOMINAL [id number] 22:00:41 Test Item Value Reference Range Interpretation Comments Case Report (test code = Non-Gynecologic [id number]) Cytology ?Case: [id number] ?Authorizing Provider: ?Cecil Kirby MD ? ? Collected: ? 09/20/2022 0325 ?Ordering Location: ? ? Medicine ([address]) ? Received: ?09/20/2022 0408 ?Specimen: ? ?ASCITES ? Final Diagnosis (test g5lycNSeGRWqx5chDVOqc code = 2583034601) GFuZzEwMzNcZnRuYmpcdW MxIHtccnRmMVxlcGljMTA nALXmLU1zcPqcpHx2rDch AVVzlcD8dRXqJFhsv1ywT IL2v9mhbsqhDVBgFZqkZz 9udHRibHtcZjAgQXJpYWw 4dT16FCGyqM7mcUXpEKr2 XHBhcGVydzEyMjQwXHBhc EYtgUJ9LOGzKY6yutzlIT urZKaoPDDazaM3RLJjfRK lF5HxDNCwNW9vfygiLAR1 DSsbNVVoIBO1WpUfETUmo 6Hkwyx7FlPinFBgURmpjQ FpblxmczIwXHBhclxiIEE mZLVXOO0EMG60LBUIVgKI CU9ANDZAIgGHXZBEPNwyx GFyICAgICAgLSBJTkZMQU 4JLIYGW84zBX9SXJUCZLH mjcWhGKEmUQ5sQqOHIMVL NeNcNh2YAX3SFJhTQgJEL ZIOGKbOWlJyK2DOEINDUK 8HEhYoSOJscumlTNJ7l6g ydGYxXHNzdGVjZjIyMDAw LJIja8vvLEWstVRuWjXjS zNcZnRuYmpcdWMxXGRlZm Dsb8nim588rQUxb9tcTSG rJtS1kABsJHCjeYrmaid5 cOouPrMqKMPfb0nvudUzN mNoYXJzZXQwIEFyaWFsO3 06NXBhCZyjr9rqv3QoIIN gzRMmr2Y3JUPKJHvgEsGa W744e6fwa3jpggGlpDN2X ODqLQG6SYcvvuXbryU1RW baaJSuMeM2XDpubhOeAMl tbvKgypGwXgg8PYVlW231 HUA3gTzmd2doOKM3AQScC PLkSahoDy6czIGlK969XC UnDPFZNODxiZd8RGIgvaG oljHjaKNOg329H870i4ld MQRouiThrGtGxqgly7fdN 319XHBhcGVydzEyMjQwXH BbbVWteLD5PQZdTV5qxxy yVYwdQQmuLIXglhB7AJCs aLZzR6LjCIHjCS3hxsnxK PB1GBccARUoUSK9MnJxQT Xtx2Oopvi4JfSjtf7qbl6 3JNG9y5XicBxpPIV2UYJ5 DrSsPc7tlBNsWWRsPM6aU gFoxPOqHJJahl57bSlfUU ugfzOlxP7rQyEbUUBedHL fEQDpRO3cqJKeWJProW5z cmxjXHBnYnJkcmhlYWRcc OiihwHvBk2goApvPCF6WR uhM3gqzG5nNvM8IJjsK4i teW6aASp7MAwvdXY4NIEo lA9mXC0ylpeff7naKGvkO PssEBTkzbV3rgJ6HFVvjK MqT0QetE2rOCVwWZ0otnu xs1aaPHF1UBknTFDpAHS2 TlCoFSSxu3Keect3TaSam 2GcaCFnLIumL61gu846FL ByufHdI9xzgKZvqrgnvRV fpmymGHujdyK9GOUiUFEg YWluXGYxXGZzMjBcbGFuZ zEwMzNcaGljaFxmMVxkYm HqCIBlZEtqR2anFeYrW7M yXGZzMjBccGFyIEkgaGF2 GNIzHYFyz06ueRl4AOPqj kjsl3IhUKCgiSOrgEMaeW 9troBbf0jbFZQqMOBwOJO tR3GbTEI1vJPpRSTacFAw kBC4IN7ncmXvWF1yAOYcR nkgcmVzaWRlbnRzLCBmZW vaw8yrAR9lPGAmdRnulP4 ocVX6YNWdo3xebCFjpEPz p8vjg7BdkhUzULlfHKCvL XyfWYXtUUIsTY0gBSOlvI QuyhPgb0B5OjzkqGZewlc sXirosuI5VThejjkeBSWm JMmfT6cdKpTbEOCqgThnJ yiqb5EjKTGnXSLdUakjqK FyfX0= Final Diagnosis Comment o1heqCYpCBHeyDMxUMGcO (test code = 3312476823) QnjedVnVCTxaZQcX6Hmno cjBIwwNE7lQR5jzTkbfQG mrKPjAEDdNdLvp5woj194 bSSbp7oeJYSUbatlnGk4n MbfN26mt0F9IpkiW13hrI NvOUY6TJXfQEJceTElSCE bWND2TDYeoXXrD8xwWGEs MV1gzrprGWwxNValPHUmv AS6FADnvGDvL6RfPLZwQL khCVVizal3AnQpCp1enXR yeTcyMFxwYXJkXHBsYWlu VGJaMfVmQZyfJOR4eH6cn KjfRMOmp8gkRC2wmYEkMR kqUqrpvR5vqItgpjKmypV ucZInuxcguIbukHfeT0x2 ZXMsIHBsYXNtYSBjZWxsc vivsmH4iIIzsLgbbAMwZX ttg2Fab2W8sVLnNVTlmaS qpcQvZOXvs4Msru3guGhx mx7rEzHdANSeTJJkdDssr GlhbCBjZWxscyBzZWVuLi ZOXFjkxBk8EGVlf6ZwmCS khFobKA14DGIlmUaeFyiq YXJ9 Clinical Information cirrhosis (test code = 6568270018) Gross Description (test m8ldeJPfVPTtkUNMMUZmK code = 9716358763) DVvBT3waZcinIv0vNtpAE HkniP2bQKuABysy4cnBKZ 8h5lvuzTBTddmVVVjBUtz MLTiumzpJfF3IZikCEEhj pnyKSl5OHjjXAEcsZN5EA BpcZOcH9VpKHYhLP2cqyg 3KDB9BRhrRIEbNzJ5CHVp WlLzVadpTOs7HKKgbcY7X na4BGYlLXCmiJLxk0M6YZ kjlkyoHELhaAVbH930HTu oh1RfhIAhMFcbvNGgCLXZ NgryJgplkMiac9TioZJlG GlkIDUxMDAwIFxcbmggXF g1GDTiVVwolUZzCZ4opPx lXhincCkjd9RjuIQrNEbl IKDhNXGoDVtoUFSoQI5VT cGqUQQiNeGwBzalPIh0MY c2NI3WRsSpHFNdTPT3EJG nVcUhBMo6WTmeZF7MPRC1 HnTnGDH4PDBuDTSaXQsdP Ly8UNRcZEikQRNtbADzLF xcZnMgMTAgXFxmbCBcXG5 jfVxwbGFpblxmczIwXHBh ciANClxwbGFpblxlcGljT mVzdERvYzEgDQpcbHRycG FyXGxpbjBccmluMCANClx sdHJjaFxmczIyXHBhciAN CdZlOpCdXWEJX85YLhltG QGHINTPUkFWO0mTSFEBDG cVPWGgnuUKBhHqK0RghzE mGXBxJFUtGWczNQF0OIAu N7Lse5RnnGKkdJ77GAIeQ mVyIGZsdWlkIFxwYXIgDQ pQcmVwYXJlZCAyIHNsaWR oadQqJCGHYOCusrsdw8bz k0EmF9b0i2BpiU9oEBQxX YAoQBZtjUSuh6zce9suL1 x9o7RjoV4eiJPnfLJdBQF ls24tWKAuwiOFJizdhIlz WbHbcWRpIzCaayA4ZNTfm EDaPQM4UE3vPKMesabvVV LxCYHwOQD9BJyymW05fIP wXGZzMTZccGFyfVxwbGFp piIFHgucjP2wWcLva8xrv Qi4UQNSQjwefVDljlwpul P7AUDbu5xrmWker9YlaKT xCB1cwQkkjZ0bJjZtSyQV Cn0= Disclaimer (test code = l8bsjZFnFMPpi9fhSTRzq 0905795418) GFuZzEwMzNcZnRuYmpcdW IzDNrbtxTwJDfhb2FgS6J yMjAwMFxhbnNpXGRlZmxh yvuhSXTrEXS8mmSpAECgU RghUSBwOJviPm6jiKRzoS rhMuPaRMEja6cjmlKNBAy dRxAsL664GBEaBSlop4cm c2CsAUDnzRSso7C5ZVGRk wszkAt6pYmgQ67dl2X3Kv tiP4mzSSFbSOHmL9DxVC5 uXLZoUnx3OBS6LSH5BASn ITJbB6KhEA1tASLmxIIpT En5f9hcsAcpZVAyYLW8v9 uyBUctllJsWS4zmx1pbBh 6v2tnfoFmHNAgBVPtpFHZ CVKiD7KrnCxpIi2wxRe1e BcbXgszCNH3Maq2BT9mhm 42nft3kAcyKWYxxhfyEnG 9KVyeMBCltmatMEu6TJtm QSBomIS5CPTtyISfV8ZwA WHlDI4jxnc3QLW3QErhPB XdFcQ8ANBioVOiLPEifTq yDWlcl940WRE3PhHsEV6e S8Sqn1I5xL3eaGDsIZCig RVwOdVvURDmtk7dkJIuKA cjj6XeEDD8slX3iAUwlVZ xHOIjKY88Dpcll4OjEqeq p4KmC76eeII7VVykp8zdQ Z8jPvU0qtFpPMgqh3rnuP 4aFhJ9ZZymPR4yWD1vIEW kmU7zjnolWCDxUyAuhbsq KHRqdSirweQuJx0koPjsL TF8UUhdX7ehoH1tLtT4AC zyW1tbuZ4pMUi8PVwujBO 5OCYueF4sEI2agyuxl5eq BBetBPgoXTJwtlL7xtD7J NUwiMWuW7JpmM2aXTHjCO 1zxnxxi1gaSJV5VQfyPRT jCJO9EiSpBOTif3Urnbk9 AjEou6TjqMYvHNlzK04ck 252FZFyldMsV8nbeMLgmu msuRLqyrdzREyflqX2AZU exdEqv2YzWZVnNQO2SWto DFgezVXiTCFrsQilz2vtN 3RscGFyXHBsYWluXGYxXG ZzMjBcbGFuZzEwMzNcaGl jaFxmMVxkYmNoXGYxXGxv Z5jvSnVjD8ZgXXUsDyVwl IVwA1rfQVignkZzAAZrjq PpiZJ9UXklW4u7IIAnldY agIr1orSaZpAfMXJaRZJ1 BQpwnNUaIASjy4Cjunzjt QCuAs2iiZAmLYWgnP4uTE UrCIFoDTjrQO0ybAx2LFN AeBMtvJAsCwLJYJEqVB56 nuSlFUWHeatpv5X7YWwoR XZcq6VjiUVlM6oci2XzUG Mpt82sDZ7hi4O5f6zdITP 7QC7co5NuXWYtaBTgwPUa WMVxv6Nrgvvpf5QrIRDzx vYxi4GxHTHtrwJmtNUjSC ZiscSnjq8iqgCfMDXnRML rF5BebfdtfKbixgNoSASi na3ywmHpWRW3FVZQZMIdW MPgw0BynX7xgNYNCQY8sS Reef9qqeOEnKHfKGFmus7 4DAGeMZ5xN3lvFCBhMIFa xfIhvZLnf3IwYPKroUG8g JSzVS3CEcLWt25wHGTpGF XUinSpDTPwgTkkiRY9fvR 6tB3zNVqBZANvMaq+IFRo NOLPQSRgQN0rzuXuy5Gji pXftLtwIDOhfOOtt9OzgK Qaj5PerAgdf0MthVTssAJ uYW4cHWHgsbhhWVOzMESO IfNECTIggkR8b4PsJHBjI HEkPHT4hAdzmkj7ZQAuzS 2rSIYsK1wcnnhvASenQCW gh7ZqsU3qyBOKnSTtu9Zl oSAraJLEbQLxNN1lepGaE UlXTCjIGMX9vyXsGNHxf0 VwNGjlH8vdB48flRedyNl 9qIR5TKJ2wB8hWke+IFxw YXJccGFyIEFwcHJvcHJpY JYhhJrelnYcX0IytfPelZ 2uhJOsvfXhHP1tGO1hK3V 1zUPkYYVredNad1iaNGzd dmUgYmVlbiByZXZpZXdlZ LYgc5PrJMauMSM5FAemne BpbmNsdWRpbmcgSCZFLCB WkCJafEIzMMD5BVijjxWk ymBqKT9hnH2rrGugsR6ta ZYkaOY8jyqdAXVgQGWunP tvIBRtUD7xbKZsWRAhveQ TwEaqvZNnzB2hM5CzVGIl NBRzih5uLYCeaV8pNOest 2VydmljZXMgYXJlIHBlcm Iblb1gZNVosPUTQZ8LIBp suARbl5TmadUkD5tYPOH5 NUQwNjYwMjgxKSBleGNlc FFhSXGzqn65UKIrbB3rpU eqFTOhzN7caZ9agJvygN3 gEyVmYfHrGVonXT2eAOAr X4dowEAsYKCjCEQsX1jkF wRzsH9lbFueMIrnEjMeDb EqJWhaJXU6rE== Embedded Images (test code = [id number]) [facility] [id number] 22:00:41 Test Item Value Reference Range Interpretation Comments Case Report (test code = Non-Gynecologic [id number]) Cytology ?Case: [id number] ?Authorizing Provider: ?Cecil Kirby MD ? ? Collected: ? 09/20/2022 0325 ?Ordering Location: ? ? Medicine ([address]) ? Received: ?09/20/2022 0408 ?Specimen: ? ?ASCITES ? Final Diagnosis (test f8wvfOJwIFCro6qsPHXbk code = [id number]) GFuZzEwMzNcZnRuYmpcdW MxIHtccnRmMVxlcGljMTA mXEReRI0dwAvpvWj3zYdf NOJbgnR5lEMnEKufa8vsY XB9q6vzkqtjOUEqQKmxAm 9udHRibHtcZjAgQXJpYWw 0oW73FPUkgD4asRGeDWx2 XHBhcGVydzEyMjQwXHBhc MDcbQM2XCCzDH8rijzoFZ fkUQoaTGKnecN3QFHgvFA eB1NxWOIuYE8gapvhRVS8 SBytQLTfONV1NlVrETTer 9Pdwms7CkFoiTXbJMsyyE FpblxmczIwXHBhclxiIEE lIJWOAI4NPS39IKOYHdUX PE5PYHQRUpVVEYXOBFpbl GFyICAgICAgLSBJTkZMQU 5RNFQAE71mMM4MRTWJHDL nivAdDELpSH7cAeBXEDUA GaGgIe6RVO8TJQnPQhNLS RNQZKaWYcJeK9FWVRMPFC 9SMoMuUNUtfwnpTWX5f5q ydGYxXHNzdGVjZjIyMDAw ESDra2fcWAHyfCAdBvYyB zNcZnRuYmpcdWMxXGRlZm Fua6wes199nVXiq6cxAMI lVlF6rMYxPXDlmFmorsc0 dSmeBvYdAAHpe6rctvQlE mNoYXJzZXQwIEFyaWFsO3 66NUNaAEcba1qwz6AtQPM saVDmt2F4DNFUXXxxViYp E766e0uql6vvcsUieWY3B SQmMGZ9DJwhcsOgdmN8RO cdoFEhWiT6TYprnaAoYZd ckxEzgqRhYuo0OBYmC268 YBN0sNzjr7vgTUM6HWZwV BSjSaflMd5gwEUmL843LI CbIDITXGBbhAa1CPXfopJ zdgBsuFUUi680M879g0yl FZFotrDacZdVezoqt2owW 319XHBhcGVydzEyMjQwXH PzsEKrxUO6YLKfUZ6hurp aHXlkNLrhNAGeavF7SZWs iIZbT6MvPUXpPV3vryinB ZX4REahWDFnEBY6KkAoVQ Mky4Wptdi1AqYgqh6rqy9 9XXL0i8HdpDhpIQG9YTL9 PlGkKf7pfRNxKIDbBS2gZ aBgbKWoKUIqyz50fBbsMC ihycEfzR7lZrBiUONdeJY mIEUkMA3ctVJjVMEijB2q cmxjXHBnYnJkcmhlYWRcc IwmmlDxZh9pbNppZLC0SU myD7vqbQ3eHiY3BLnuB2s rrE3eBZf8MVbqrSB6ROIp xX1lPL4rdsffj7ioANzeB UxuCOVpmlW2dnB1MUBcjE JnA0CahO1iSLEdPN9oitb he9rhPVB0QSsdGLGaUMH4 HcYjMLFda5Cvlsy9PjMcm 5KcyFLjFKqpA06rn664XU PofsBlP7qfmSRazniftWV olwxgCOdkpdE3PMJwAUAm YWluXGYxXGZzMjBcbGFuZ zEwMzNcaGljaFxmMVxkYm ZiFXLgZOsbS9qaVpVhD5D yXGZzMjBccGFyIEkgaGF2 ZETfOHYje53gzHo7TDJll jzqg3JkDMVzvNVgtHYwrP 9iynDsu3egKFGyTKPxXUR jV3HlRYR4bBNhGORlcISx rHV8FT1yhzQhMG3iOGGbF nkgcmVzaWRlbnRzLCBmZW pkv2aoZN7nUERztVqmsT0 cpFG3WBMms2czdUTquCNx a3lul3NrwtTpZHynVJChZ PwaUOIrUTNySN0zRNXsmC AgqvCpj8J0SesiuJPydzl mTynsbvW7ZBdeujiuMAEl GXvzW9opTuDdNONyiIbqQ ssys2VdJWFtPSHyCcnpvX FyfX0= Final Diagnosis Comment y0lnuDNnWOUwdYLcFWGzT (test code = [id number]) OjmofWnSFElyZWuL2Lcvr hjWJvtTE9iMR7lxEvlkNJ cuURbRTRhXnXsj1rss557 cJCqj0vhESOEbilhqLi1l KiaU58bd3H4PbkjO63ekX RfTZP4DZMqGBFxsJTfUAX wOKD5RGIxtPKkS2avFKHe ZL9fwfujLEvpDAonGOMyp NO6RKCyoUCdD5PyBRQqZF saCSMvvod8VpFaVx4sfQB yeTcyMFxwYXJkXHBsYWlu SZRwJyMsTSzkISM5zB4ki VrcQUUxr5hnGO1elVIgAM buBzhjkO6siRrvqqEsisO phLVevoctgFukkGwcM1n6 ZXMsIHBsYXNtYSBjZWxsc nfpixQ5rASqcPxeaJXtLH lfs5Cjk4Z2lTJfVHXzydG bddQtTRYkk4Rwzm7ahRfc ky4rGmKsPGBvXYJwbBqdl GlhbCBjZWxscyBzZWVuLi AYFSixqQn9CMQtr2AteAX ftQuoKP45TJAahOtlLoyt YXJ9 Clinical Information cirrhosis (test code = [id number]) Gross Description (test z0fjhMBdXLIwaFRVKAHgE code = [id number]) MBuHJ3edIvvnFz9iQfzEI SrqhH7fZYzPFjwy0lpVDP 1m5eaquIFOrguHCVbOCdw NLYvxcoaNrV1WLkfQWBwk muiJRc2BImxKIZooTV4KH BfnKGoG1VvXVLzAH5maah 6TPE6LNkuAJRjYiL7VQRq DtSeWqchOTw9UKPqeqD9B nd9KQPdDZRjjGYxh7P2YX zaacuhCHIdgBGqO427PEu mf9OamCMbMAupgSQmCDQQ BmjwZxkdgPiur6FjwSDlQ GlkIDUxMDAwIFxcbmggXF d3ZJGsKUkbfXHmAE7pfYu mNcuflKkcj8LzuGFwDJxu FNSkURDzXGgmAKWkRV6QC cErGEHeCjKyRitaGCj8KZ i6MF1PRmPyXVNfNRY6IFT oPgVfQEt2KSjqYQ7FDPH7 ImEaGSN5RIDuFYXcRRpvS Zq7MFRpGNmnMDVjuPLkKA xcZnMgMTAgXFxmbCBcXG5 jfVxwbGFpblxmczIwXHBh ciANClxwbGFpblxlcGljT mVzdERvYzEgDQpcbHRycG FyXGxpbjBccmluMCANClx sdHJjaFxmczIyXHBhciAN NrDqXiFvTFGTH52KCjsjD DBLJWSHIoIQB1kNOGOVLQ qKUVVqpzZQEqUlQ1OxbwQ zZTJyYDUqJPtxUEI5OVSa W0Kyq6FohZKcrH69NPXxR mVyIGZsdWlkIFxwYXIgDQ pQcmVwYXJlZCAyIHNsaWR hcuKmLIKAIKUpdvlff0rm u9HuU2k5n1MipR7dUEQeG SJxEKFyiLUpy0vvw0phG4 g5w5ZnzI3okTVmqKZxIIR ir97uKQHdubTDTeeofBkw QqEmyAXnSpDmklX2JPXjv CQqSKB7YW5nGHYfhgyiYQ CuRFPqAAA5VOuuqN94vDO wXGZzMTZccGFyfVxwbGFp fiXAJgocoX0rKyMhl0lim Jv0GDMXOckuqICjflbrgw R4CEAkw9ghfBykh6NmgMM oXD8pzLcaeZ5pSvCjScTW Cn0= Disclaimer (test code = d3rmaEMkDIBdr3thLUYpj [id number]) GFuZzEwMzNcZnRuYmpcdW TeATvehuMiEOxuh4RoK0T yMjAwMFxhbnNpXGRlZmxh lklaRSQwVQJ5twYqVHTuX TgrOFRyPLktAq9qaADxxS rfLjGoITWuu4nckuNLCVl hXdNmP270IYMqHWtsi0nm h5WgJXYzaHXaw1L5FBDBb bzocPu8eVinI80xf3Y7Nd lmD1huXGZjSDWzI7VuND5 lMDFbWuq1SKH1JCK2NKAb CJGwG8AqNU3xMZVlgGWlJ Nd6g6pfnEvoWGOpECF6a1 giJVabduQbWL8ypj0ocWc 6v3tberWzAIPcWWFypAFG XFAqD6BgzInsPj1wgKv7j VgtSbghNZF1Lrg6PS9zjr 08ayx0jCthRTCxkizoEgC 8BFrcWFUcsehhXIa6GPar TURxuRG2ANFdzCLoK0KqP YBeDJ1bzgd0AAG0YKelPW JuRmG9TADfsLRyMEPjaWp yATqdg855CUJ7UfZoQG8n N0Bkx8Y1uP1zbXGxTVWzr IKiClHaWOCkrh1irOFoLP sxy2GuNOY7ymV8zGOiyXM cOVCnTJ77Tkstt0SiNzjl u6ElW02fuZJ7MJbph4pyK Z0aUfO3kvRrIGkhm6jgtT 4cLrL2WIizQQ9aMV5oCXT pfG0wjrokDGSlPfGikrdm LBZwaLklnoEtCh2wgLyxF MP3GJulX6llfO7hOhU4FN puM2pegV9xJUw0MSxejTA 9CNAxgX2gGZ7inmvsv9oy CEfgJKglSPVzsyV3cmT9V YGgcRUuR9DmiZ7lSIOjPK 0nwdgne5yfDVW8DMgvHES aHKP9RlNgBKJin0Nushd8 LdBgu6IqeQCxBLurK33hx 933CTJbfxKqT3yvvECjoq offQRtvekqEZfvppS6VMR nuvIvk9TuUUWpKCQ9KEdk XRuzgFMkEAMoiSjto1wwJ 3RscGFyXHBsYWluXGYxXG ZzMjBcbGFuZzEwMzNcaGl jaFxmMVxkYmNoXGYxXGxv Y7wgKuLpF7NtXFMrRzHwh LAvZ0siGZxrhxXfIHDhbh OnuYT4SHjvV0s4QHCuycB qkHv5hoRkBwTyQOJxWXK6 JNehzTQjFHEvi1Yargwhz TWjNg6nkAFzREBkoJ3lDU DuBUXhDDasJK5kcXp6JZG KcJMjaKXuYuSQJIPkFH07 dtPgXELLvxdye1F3GQlbS TArt3BkzCLuI7gng2IiFD Cua09sBE5jl5K6c4srLVF 2FZ1jh1PvTLFcoYEmzPGt XOYvg2Qpcmktd9YxOFOag wMaa0NsYXVgkqDljUOrQI OenuFmca8exgRvRFPrJOA kS8WydlpisXhbwtLwHRGg ai9nlaMhNDA0DSMCFLBtD FTha1OkiM6gvHNBIYA7iH Lcqt1clpSAiDLpJCBqng2 9EZPkVD6iB0zvISMsIFHf mdCfoHTqz8QaUIZkvQV1g NUsWA6YCkKHm66mDIHeBS WGbmLwWOJybQrdgWY5anX 2hO7hNMnUIVSsGgn+IFRo UIACLXNoVO5tsnKbn8Yrs eAxrIrzOVMfhVQdg3ZupB Knz7UcpEiqq0DpcNKlwAF jLO4uVRPufyutQSSaQODD BmQIHZLextW0v5VoSYXwD AJwJXC3tZbdexa4PZVvgH 2vMCAeQ3jobigkOIacBHC ww6CofC1mnZHOmLVyb9By dRQunTCPkULdRP3igtVgY RgBEAeEHKU0dhElDTUdo4 ZkFBfjW3znW23sxCgvtPg 6pHS5ZDO2fC4vGmb+IFxw YXJccGFyIEFwcHJvcHJpY KKvgIjpqaJgJ7BhgpLkyQ 5ipGOzpsLsRE3qXD6sM3W 1gIMvAUJhlqOmb7maBRgj dmUgYmVlbiByZXZpZXdlZ MIck4TnEDamGGT8WRrwgi BpbmNsdWRpbmcgSCZFLCB EwPPoxOKhDNM7IPnhedXf xvGwXA2xeK8cwRmpdG4ha ORnpRL6rvnkWZRjQYOyjM qyXDRhMJ6tnMQhAGGyjpJ XmFfkgLAuyK2mO4PdNETv YVSyob7hPNIqaU6cVOvqe 2VydmljZXMgYXJlIHBlcm Tyqs6eGTUohVIPOQ8ISWu xfFTge0FngaVyB3wUNXQ4 NUQwNjYwMjgxKSBleGNlc DLuIAIpcp78OCNfvQ1fyK qlLIXrcF2bzE8asAihkA4 gFwQiCvDqQGdsFZ9hWPVh U9xsiHVmXRWyNMTtC5kzL eFzhJ6oyRivAXjjZzQtMt QwJWulABM6uZ== Embedded Images (test code = 1902257211) [facility] [id number] 22:00:41 Test Item Value Reference Range Interpretation Comments Case Report (test code = Non-Gynecologic [id number]) Cytology ?Case: [id number] ?Authorizing Provider: ?Cecil Kirby MD ? ? Collected: ? 09/20/2022 0325 ?Ordering Location: ? ? Medicine ([address]) ? Received: ?09/20/2022 0408 ?Specimen: ? ?ASCITES ? Final Diagnosis (test m8finHKrWEQfw3zmVKCoy code = [id number]) GFuZzEwMzNcZnRuYmpcdW MxIHtccnRmMVxlcGljMTA xOZBpRS3deIxwaIo3aTlq SXBrquY7aSLmQGvvh3dlG TL8s9cxdfftPNHmCFsoRr 9udHRibHtcZjAgQXJpYWw 5yO59HXUkjW4myYFlDXt7 XHBhcGVydzEyMjQwXHBhc QLfaGD6EZPzIU3swgjtKQ kfGQrgQUSsdqR0FKRaxUM kE3TtZWZxRY4zcellFDP0 SRplPXSdLGT9OoSzFVPle 3Ypmgn3XfAgeWDuVGgkwJ FpblxmczIwXHBhclxiIEE gYGDYZY8YNJ36TCXZBjDT PZ5IXPPPBcXGJZHENXbub GFyICAgICAgLSBJTkZMQU 5YDVYMJ03jNT4OPGYFCTU jsaLyKAAgUW4iLoORFOQB EzTnLk1XWM2WLUeRVsLRF GIMVIrRSpNaM9NWLXYLMD 6VYoRhDXQscubfTZG5c0o ydGYxXHNzdGVjZjIyMDAw ZULvj0iqXBMizJEvLoCaH zNcZnRuYmpcdWMxXGRlZm Eqy6kev956qAMvk2jkSRL mUwT5eKMxKOXasHmhiyu6 kCioUwCdYHZxt3gjoqWcT mNoYXJzZXQwIEFyaWFsO3 37RVDqDQzjg9lhl1NlKIG xoNVgo4L1TLBCEDhpBkMt L097x3xsb2fxgwWbtNM2G IFeFPL7JLwnahXofcH1FE uodFSoOlL9CWvlbiFdZNi asoRrdeSjPmb0ITRwT302 RRJ7uAstj7qmBID1DLHaU QDhAsmoKx5nwYGbT803QU RvDPGFJHUkzIf6TMYerzK bpsRfzVYNr164Z461b7hm YNCenkInnHjZycaul3foD 319XHBhcGVydzEyMjQwXH VxyWWxgLM0NEIlOW0cdtw cCEssDZnhLQUqfvJ2TVDy lJAsC4ClDUTpVN6skjtxK DY0OZrbJKRuMUX9LjRvFB Foa9Ooysh0LdFoss6mfk1 6BBV3d4YogIgeGZY7TRW4 PpKyLf1nxRXuPNTiQC9rS pEwkFVoOMXmpe64jAazVE jhrpYmeK0kBoXvCTRlpOW lAEEkWX6xoNDsGKFsqT1y cmxjXHBnYnJkcmhlYWRcc WrvlyZjWg1frFwdGHQ4LV qqG2bfwI8rRzD6FOloP6c ipQ5yWEj0FRijmYA2NMYu pX8tBC4vlblkl1vgWHtrV ByxWZKieqJ2bhA9TLNewR OdS8UzsK5eTESbWW6hcgw eo7yvSBL5OZffAEBhMEH4 ZxFjZHLyc7Cirnt1MkMvf 0EkiXOyRUojQ28tn107SE UfmdUmB7foeVRsljwiqRX wvryqPYedwzF1ZFApDFXi YWluXGYxXGZzMjBcbGFuZ zEwMzNcaGljaFxmMVxkYm WhPBZlJDbdM3jcYnVeY5O yXGZzMjBccGFyIEkgaGF2 MTJsAYAbg82orZb9FBTzh rmxr7MbBQGtgBGtsDExnK 5iqeFzh8mrSZObXKZmFGD hL8OfDUG3oBYbJGFniRVh yQO7RH7tahSeUD1sRDLoE nkgcmVzaWRlbnRzLCBmZW hhr3ilIB6kLJCpwDuuaC5 xxIK2LGKbe7rgsGSxdXTn t8rny8KewcJsOWipXJGsF FucKJTtXNRgWI2sTCFncB IagnZmk1I4LfxlpGAykky wAkezsiZ0CZqeyqkoFBAp XBomW9meCaCaAGTahPcfS xewz2SnIMGmBRYfUkklyT FyfX0= Final Diagnosis Comment m6lqnDGmXWOzbHWpAPPiR (test code = 2276207486) QjcljTaZHLgrOOmU4Xfyw plFCwoBT5tSJ4jeJxihWF igUGsPNHyEyIjl2ubc032 lSKyb9cpCLYUlmcmjMu6l FjiW17zp5V8VxsaG59gxE UqGTS1ECCkZTQihKGeCKL qLXD7YTKoePWiP8hiFHCh FG1pgkylCAanCNrhOWZic FU8BVQckJTwE8CcQLAnPB baNLMgoxl9YxMoFq4zmLY yeTcyMFxwYXJkXHBsYWlu NBVuHnJrDPotOKV6pW1im YquRXHme4xuFY2fdGYjKG riTzpalZ4quUilxjRkpqQ vyEWqprjjqOkzpTanD7g8 ZXMsIHBsYXNtYSBjZWxsc tqibxL0aMEipLfogOGbHV idh9Liv2J2hHZiMBYigfV wzzQoWTJmg9Mwne4qvCbt be4hFbBeVXUxERVdkEmmu GlhbCBjZWxscyBzZWVuLi EIQPbioEv4ZDJoj7WvfCE pzDwyLS45FKNfnHpkAnpv YXJ9 Clinical Information cirrhosis (test code = 0906336998) Gross Description (test b7pmkBPrHTVnpRCPPQLsU code = 8482387986) LDwVM5viKcpcGa0iHwcJY WdpcM9uUCiXQdow4bsPMQ 7a2mtvpOLZtnkDHCfOVku MAMdivqkObF7OVkwORLen irfJNq2OKobFESkeST5KG AkcGUuR4KfHAMtKU9ueyj 4CJI6EMfwLFFvTyV8PBUy MfBvEvpkCRr8GVXkmgW4J xs0VZCkAYFmzXOgq2A7DJ rygwkqDGFzuBSiS698WMv mv2JowBJdHRwhpWDjKEHG EfdwQurhgFufi9JxpVJyI GlkIDUxMDAwIFxcbmggXF b5XUDxFYqpiUBoPU2scUg nMvquyNrmf3IjmABmGIgw YQOyQMWdOYzmTPVzAW0RI qYaZMDwPxHfKbbdMPn1JW g3GU6VYgHmXEEwKAQ9CJG eMjJeYYm7JOacVK2ZPOI9 QyWjSLL3ASElSENrDKlbK Lb9WCUoEKgmEUMmzBMtGY xcZnMgMTAgXFxmbCBcXG5 jfVxwbGFpblxmczIwXHBh ciANClxwbGFpblxlcGljT mVzdERvYzEgDQpcbHRycG FyXGxpbjBccmluMCANClx sdHJjaFxmczIyXHBhciAN FxSbNtMzNHSLI28XQsmhD DVCCMYEKhSUO1oQLDIZCQ wGUMDyaxJOPwEqR0GoisT cDAQtRHRoVCcrMXS3JGHy W7Vdg9VmpZRrqT49VMMyE mVyIGZsdWlkIFxwYXIgDQ pQcmVwYXJlZCAyIHNsaWR jahAaODFTWKNlvdxdj9jx d2LpL3j3v0AeqZ8iBFQjB RAtBQVhmZSwr8uki1rjY7 t7x7KurA9ctSQcvTQtAAD rr63jFYVaqfUZObecoJhf ZrVdyRViHeOxlqO9CYKek IHyZVJ2GU5oDMFwntphCW XmVAUbGUQ9HMpgbK09bNM wXGZzMTZccGFyfVxwbGFp bnOLCgaexR4uFnHmv9fru Dw0ERNZTgkpnPHahjhaza Z5ZDDdv9klcEihh3JzcXD kGP9apLlihT0iSgOzUkVI Cn0= Disclaimer (test code = s0rabVSqYIEma2rvSEWum [id number]) GFuZzEwMzNcZnRuYmpcdW QvYFyrdpTqCZenm9HxY9Q yMjAwMFxhbnNpXGRlZmxh hodkVQQjSRJ3koTwRTXbP QonLJCxVRkzGa3kkBQkjF vrExInAZZmw7niczPNIDc xLwQeE363BRDyRNuig8az y8QqJMAzjVKqs1Z7WBFMj nqbsLw7tKwiU65dj9I6St miW8zeUSIzZQIoB0IqWM3 lOINpYkw7ZVR7OSE8OFDu VGIhB8ZlMU9nXZKobBMjJ Xa8r5erhArqROSgTSW1i9 vsBMbwkyEbXM7ylt8rqMh 0z8wfgrEfALTjJULwsIWT AMIlK8FlvJdcHz7xgEl2h GxwYszwLZN0Rwa6QZ3dmi 82eyi9oCrzXIGfgmlsYiT 8VTqjHIZnijwlIHq8PEfj FXNqbXL8WRIhaITnN3LyI GMzPZ1iuul5QOD8FLmjJZ DhKsI2PWMqcCVdSYVvgAp iPBfdp961VWK1JqVoMD8t L7Bgf6G4mW7jsCXtFJRjo XPmFgShMAAqqo0ilDOkPH yae8CkBOM5qlV1zGNqnZI uNHKySY08Bgxgd5PtJfpv b1CpF73imNA1NFjgi2dbT B0yBvM5woGxYNbpv1fjkF 6oPcI7IGojBL3pJM3zCQW vyY6qdcdrRWGuToFghico MWBybYrokpPqLe3ttXsmR XU8BFvbL7fvrS3oMcN2AF seN6qwhW3nBFk9OFteaUS 8SABnxS6nUH3uejqwd4cf OZqiJAyiNUZvlsZ1fjB5B SXbqTZzZ8TrcN5oQMJuGC 3zmxeyx1nfMMI0QSubKKV eCBA6FnHbGQLyl3Vkovt3 MgIch1LglFQnGFxwD98fl 064IKSmamCoO1wenBDeyj zhbVLtgiwlCYfxyvN8KYF sxkTuh0ZcMMEzKDY2UTow GYskqVSoBSQpzKszt6swQ 3RscGFyXHBsYWluXGYxXG ZzMjBcbGFuZzEwMzNcaGl jaFxmMVxkYmNoXGYxXGxv E9flElZcT3HnHFPaXgWlb CXjH4gnJEybxnCrZPEmzo UaiOU5TJfuM2w8BIFejwN uvLw0qhYbRoLmTDDpUJX1 HOuxjCNkXQUbw9Nbnozcv HQtVk2zxZKuJKOzgH0qLM CiKBEfKUjqEJ3weWd0OIR PtSIppFZzZuLSRWNwWZ26 ezVfLCJNagxbn6S1EJazL GYqh1XhwBQfN5dwh1VfRJ Nwi01xJI9jd1V7z3qeJBW 6IM0li3DzGUHmdZDysURo CHZhq6Xlaokfv0XvVLYyw jLia8YtBAIlgoAokUSfNN NwugBkaa6ewyRlARLqJWT dF6QofqeufCcjrgGoYENk xz5tgbHiGSG5JWIXGPPeR JVjj4WvfI5rvHCNMFR7oY Zsep7dzoHBpVCdHDCxkg3 8EEDpOC4pR0liIVOcBLNs tcYimQZxu7PuGVTmlVA4r CMuAZ9CCaLNj22nBOUmJH NUcxKoNDGilTzonKO4cvB 6zP3rPUbVNIMlWvr+IFRo YHMIIXSmFM4icdYvo6Mxd wIfbIoeLRTbvFTyl8PqcU Mkr1DjgEhsx4KlgQVvwWZ sGH8fIEEmenygYJSmTXYS ByTQVOMaelS7p0XlERGjW MMlTLN8qDfphvw0ASMxbT 1gDFHpV2btpyenHFrjVGJ fb1BwsM6joOPXbDOkb5Ey yNGcwCNMmQSsEA1etgXzI PkCDKiXDPI6tqIxJDDxj8 MePTybB0gzG21vxHohkYg 5pGA0XWK5hW6sIhm+IFxw YXJccGFyIEFwcHJvcHJpY TIujLaqwgFgQ0JljoZofW 9izQUzzwMaDP2sOE6bL4C 8rDHdNJKzbuYwl2nrDWaq dmUgYmVlbiByZXZpZXdlZ VKnw5RyPIzhVZM8UJcvxk BpbmNsdWRpbmcgSCZFLCB TlOYeuDPbMCU1NEymyqIi blSvNA9ayQ7xtTgdzD9ne IVmiTB9djxwRFVmAZFhoP qoEBAjJG2qcBQcIFMuyxK OgXotqXBtxX8fB7GpYLWi NNEzxq3nVGFmgH8vGKrsg 2VydmljZXMgYXJlIHBlcm Otps1nVASnjBABQK5ZMFq etVTlc6PrdmHfA2cVGKV8 NUQwNjYwMjgxKSBleGNlc DKxOTGivm57REQklW8hlH kaJZKebG3teE1lnKikeQ6 hKnQbRnIsWBauDC8vNCSr C0fipSXtFGTeUOMlY8hvG tWagJ6vhJrtTGzlEuIlWg EzTRsfSIG1rS== Embedded Images (test code = 3568108483) [facility].PROTEIN BODY [id number] 20:45:31 Test Item Value Reference Range Interpretation Comments T.PROT BF (test 991.0 mg/dL code = 5446779916) UNSPUN BODY FLUID Light Yellow COLOR (test code = 7282249603) UNSPUN BODY FLUID Cloudy CLARITY (test code = 5539559689) SPUN BODY FLUID Light Yellow COLOR (test code = 4401852608) SPUN BODY FLUID Clear CLARITY (test code = 2292524539) Sediment (test code The sediment volume is = 7264957543) <0.1 mLs of the total fluid volume of 4 mls and its color is red. LUZMARIA (test code = Test developed and LUZMARIA) characteristics determined by [facility] Laboratory Services. [facility].PROTEIN BODY [id number] 20:45:31 Test Item Value Reference Range Interpretation Comments T.PROT BF (test 991.0 mg/dL code = 8397455312) UNSPUN BODY FLUID Light Yellow COLOR (test code = 3561419710) UNSPUN BODY FLUID Cloudy CLARITY (test code = 4901950608) SPUN BODY FLUID Light Yellow COLOR (test code = 3425700038) SPUN BODY FLUID Clear CLARITY (test code = 6235105578) Sediment (test code The sediment volume is = 2110718791) <0.1 mLs of the total fluid volume of 4 mls and its color is red. LUZMARIA (test code = Test developed and LUZMARIA) characteristics determined by [facility] Laboratory Services. [facility].PROTEIN BODY [id number] 20:45:31 Test Item Value Reference Range Interpretation Comments T.PROT BF (test 991.0 mg/dL code = 5954218287) UNSPUN BODY FLUID Light Yellow COLOR (test code = 6992367575) UNSPUN BODY FLUID Cloudy CLARITY (test code = 6370585784) SPUN BODY FLUID Light Yellow COLOR (test code = 8171852961) SPUN BODY FLUID Clear CLARITY (test code = 8458341652) Sediment (test code The sediment volume is = 5314328980) <0.1 mLs of the total fluid volume of 4 mls and its color is red. LUZMARIA (test code = Test developed and LUZMARIA) characteristics determined by [facility] Laboratory Services. [facility] [id number] 18:02:30 Test Item Value Reference Range Interpretation Comments ALBUMIN BF (test code 321.0 mg/dL = 4963837434) LUZMARIA (test code = LUZMARIA) Result interpreted relative to the serum concentration. ? [facility] [id number] 18:02:30 Test Item Value Reference Range Interpretation Comments ALBUMIN BF (test code 321.0 mg/dL = 0659945543) LUZMARIA (test code = LUZMARIA) Result interpreted relative to the serum concentration. ? [facility] [id number] 18:02:30 Test Item Value Reference Range Interpretation Comments ALBUMIN BF (test code 321.0 mg/dL = 0988680103) LUZMARIA (test code = LUZMARIA) Result interpreted relative to the serum concentration. ? [facility] MANUAL [id number] 17:16:58 Test Item Value Reference Range Interpretation Comments BF SEGS% (test 26 % code = 55144-1) BF LYMPHS% (test 24 % code = 20817-0) BF REACTIVE 2 % LYMPHS % (test code = 13789-2) BF MACROPHAGE% 46 % Reactive macr ophages (test code = observed. 32569-1) BF MESOS% (test 2 % code = 65698-2) BF #CELLS CNTD cells/uL (test code = 2851739537) LUZMARIA (test code = Reviewed by LUZMARIA) Ignacio Reed M.D., Director of HEMATOPATHOLOGY. [facility] Center[facility] DIRECT [id number] 09:49:16 Test Item Value Reference Range Interpretation Comments BF COLOR Light Yellow (test code = 4495246202) BF WBC Count See_Comment [Automated (test code = message] The sy stem [id number]) which generated this result transmitted reference range : /?L. The refere nce range was not u sed to interpret th is result as normal/abnormal . BF RBC Count See_Comment [Automated (test code = message] The sy stem 0849214030) which generated this result transmitted reference range : /?L. The refere nce range was not u sed to interpret th is result as normal/abnormal . LUZMARIA (test The reference range code = LUZMARIA) and other method performance specifications have not been established for this body fluid. ?The test results must be integrated into the clinical context for interpretation. [facility] Arterial Blood Gas.2022-09-20 08:57:40 Test Item Value Reference Range Interpretation Comments PH (test code = 2) 7.35-7.45 PCO2 (test code = See_Comment [Automate d message] 9914680294) The system [employer] generated this result transmitted ref erence range: 35 - 45 mmHg. The reference r brianne was not used to interpret this result as normal/abnor mal. PO2 (test code = See_Comment [Automated message] 9343035602) The system [employer] generated this result transmitted ref erence range: 80 - 100 mmHg. The reference r brianne was not used to interpret this result as normal/abnor mal. HCO3 (test code = See_Comment [Automate d message] 6966447837) The system [employer] generated this result transmitted ref erence range: 22 - 26 mEq/L. The reference r brianne was not used to interpret this result as normal/abnor mal. BE (test code = See_Comment [Automated message] 4061919490) The system [employer] generated this result transmitted ref erence range: -3.0 - 3 .0 mEq/L. The refe rence range was not u sed to interpret this result as normal/abnor mal. Lab Interpretation (test Normal code = 02558-3) [facility] Arterial Blood Gas.2022-09-20 08:57:40 Test Item Value Reference Range Interpretation Comments PH (test code = 2) 7.35-7.45 PCO2 (test code = See_Comment [Automate d message] 0983773187) The system [employer] generated this result transmitted ref erence range: 35 - 45 mmHg. The reference r brianne was not used to interpret this result as normal/abnor mal. PO2 (test code = See_Comment [Automated message] 6375010149) The system [employer] generated this result transmitted ref erence range: 80 - 100 mmHg. The reference r brianne was not used to interpret this result as normal/abnor mal. HCO3 (test code = See_Comment [Automate d message] 4995352175) The system [employer] generated this result transmitted ref erence range: 22 - 26 mEq/L. The reference r brianne was not used to interpret this result as normal/abnor mal. BE (test code = See_Comment [Automated message] 4349611395) The system [employer] generated this result transmitted ref erence range: -3.0 - 3 .0 mEq/L. The refe rence range was not u sed to interpret this result as normal/abnor mal. Lab Interpretation (test Normal code = 90982-1) [facility] Arterial Blood Gas.2022-09-20 08:57:40 Test Item Value Reference Range Interpretation Comments PH (test code = 2) 7.35-7.45 PCO2 (test code = See_Comment [Automate d message] 8392893552) The system [employer] generated this result transmitted ref erence range: 35 - 45 mmHg. The reference r brianne was not used to interpret this result as normal/abnor mal. PO2 (test code = See_Comment [Automated message] 2430269798) The system [employer] generated this result transmitted ref erence range: 80 - 100 mmHg. The reference r brianne was not used to interpret this result as normal/abnor mal. HCO3 (test code = See_Comment [Automate d message] 7744815611) The system [employer] generated this result transmitted ref erence range: 22 - 26 mEq/L. The reference r brianne was not used to interpret this result as normal/abnor mal. BE (test code = See_Comment [Automated message] 6221931220) The system [employer] generated this result transmitted ref erence range: -3.0 - 3 .0 mEq/L. The refe rence range was not u sed to interpret this result as normal/abnor mal. Lab Interpretation (test Normal code = 72120-6) [facility] Arterial Blood Gas.2022-09-20 08:57:40 Test Item Value Reference Range Interpretation Comments PH (test code = 2) 7.35-7.45 PCO2 (test code = See_Comment [Automate d message] [id number]) The system [employer] generated this result transmitted ref erence range: 35 - 45 mmHg. The reference r brianne was not used to interpret this result as normal/abnor mal. PO2 (test code = See_Comment [Automated message] 7109516549) The system [employer] generated this result transmitted ref erence range: 80 - 100 mmHg. The reference r brianne was not used to interpret this result as normal/abnor mal. HCO3 (test code = See_Comment [Automate d message] 6779262664) The system [employer] generated this result transmitted ref erence range: 22 - 26 mEq/L. The reference r brianne was not used to interpret this result as normal/abnor mal. BE (test code = See_Comment [Automated message] 2891063136) The system [employer] generated this result transmitted ref erence range: -3.0 - 3 .0 mEq/L. The refe rence range was not u sed to interpret this result as normal/abnor mal. Lab Interpretation (test Normal code = 90518-4) [facility] Arterial Blood Gas.2022-09-20 08:57:40 Test Item Value Reference Range Interpretation Comments PH (test code = 2) 7.35-7.45 PCO2 (test code = See_Comment [Automate d message] [id number]) The system [employer] generated this result transmitted ref erence range: 35 - 45 mmHg. The reference r brianne was not used to interpret this result as normal/abnor mal. PO2 (test code = See_Comment [Automated message] 6149852436) The system [employer] generated this result transmitted ref erence range: 80 - 100 mmHg. The reference r brianne was not used to interpret this result as normal/abnor mal. HCO3 (test code = See_Comment [Automate d message] 5028294457) The system [employer] generated this result transmitted ref erence range: 22 - 26 mEq/L. The reference r brianne was not used to interpret this result as normal/abnor mal. BE (test code = See_Comment [Automated message] [id number]) The system [employer] generated this result transmitted ref erence range: -3.0 - 3 .0 mEq/L. The refe rence range was not u sed to interpret this result as normal/abnor mal. Lab Interpretation (test Normal code = 38730-8) [facility] Arterial Blood Gas.2022-09-20 08:57:40 Test Item Value Reference Range Interpretation Comments PH (test code = 2) 7.35-7.45 PCO2 (test code = See_Comment [Automate d message] [id number]) The system [employer] generated this result transmitted ref erence range: 35 - 45 mmHg. The reference r brianne was not used to interpret this result as normal/abnor mal. PO2 (test code = See_Comment [Automated message] [id number]) The system [employer] generated this result transmitted ref erence range: 80 - 100 mmHg. The reference r brianne was not used to interpret this result as normal/abnor mal. HCO3 (test code = See_Comment [Automate d message] [id number]) The system [employer] generated this result transmitted ref erence range: 22 - 26 mEq/L. The reference r brianne was not used to interpret this result as normal/abnor mal. BE (test code = See_Comment [Automated message] [id number]) The system [employer] generated this result transmitted ref erence range: -3.0 - 3 .0 mEq/L. The refe rence range was not u sed to interpret this result as normal/abnor mal. Lab Interpretation (test Normal code = 36211-1) [facility]-20 08:57:40 Test Item Value Reference Range Interpretation Comments PH (test code = 2) 7.35-7.45 PCO2 (test code = See_Comment [Automate d message] [id number]) The system [employer] generated this result transmitted ref erence range: 35 - 45 mmHg. The reference r brianne was not used to interpret this result as normal/abnor mal. PO2 (test code = See_Comment [Automated message] [id number]) The system [employer] generated this result transmitted ref erence range: 80 - 100 mmHg. The reference r brianne was not used to interpret this result as normal/abnor mal. HCO3 (test code = See_Comment [Automate d message] [id number]) The system [employer] generated this result transmitted ref erence range: 22 - 26 mEq/L. The reference r brianne was not used to interpret this result as normal/abnor mal. BE (test code = See_Comment [Automated message] [id number]) The system [employer] generated this result transmitted ref erence range: -3.0 - 3 .0 mEq/L. The refe rence range was not u sed to interpret this result as normal/abnor mal. Lab Interpretation (test Normal code = 00263-6) [facility] [id number] 05:25:20 Test Item Value Reference Interpretation Comments Range TROPONIN I (test 0.009 ng/mL See_Comment [Automated code = [id number]) message] The system which generated this result transmitted reference range : <=0.034. The reference range was not used to interpret this result as normal/abnormal . LUZMARIA (test code = Reference (Normal) LUZMARIA) Range (defined by the 99th percentile reference limit): <= 0.034 ng/mL Note: Cardiac troponin begins to rise 3-4 hours after the onset of ischemia. Repeat in 4-6 hours if the sample was drawn within 3-4 hours of the onset of the symptom and found normal. Diagnosis of myocardial injury is made with acute changes in cTn concentrations with at least one serial sample above the 99th percentile upper reference limit (URL), taken together with the patient's clinical presentation. Biotin has been reported to cause a negative bias, interpret results relative to patient's use of biotin. Lab Interpretation Normal (test code = 89227-7) [facility] [id number] 05:25:20 Test Item Value Reference Interpretation Comments Range TROPONIN I (test 0.009 ng/mL See_Comment [Automated code = [id number]) message] The system which generated this result transmitted reference range : <=0.034. The reference range was not used to interpret this result as normal/abnormal . LUZMARIA (test code = Reference (Normal) LUZMARIA) Range (defined by the 99th percentile reference limit): <= 0.034 ng/mL Note: Cardiac troponin begins to rise 3-4 hours after the onset of ischemia. Repeat in 4-6 hours if the sample was drawn within 3-4 hours of the onset of the symptom and found normal. Diagnosis of myocardial injury is made with acute changes in cTn concentrations with at least one serial sample above the 99th percentile upper reference limit (URL), taken together with the patient's clinical presentation. Biotin has been reported to cause a negative bias, interpret results relative to patient's use of biotin. Lab Interpretation Normal (test code = 89093-5) [facility] [id number] 05:25:20 Test Item Value Reference Interpretation Comments Range TROPONIN I (test 0.009 ng/mL See_Comment [Automated code = [id number]) message] The system which generated this result transmitted reference range : <=0.034. The reference range was not used to interpret this result as normal/abnormal . LUZMARIA (test code = Reference (Normal) LUZMARIA) Range (defined by the 99th percentile reference limit): <= 0.034 ng/mL Note: Cardiac troponin begins to rise 3-4 hours after the onset of ischemia. Repeat in 4-6 hours if the sample was drawn within 3-4 hours of the onset of the symptom and found normal. Diagnosis of myocardial injury is made with acute changes in cTn concentrations with at least one serial sample above the 99th percentile upper reference limit (URL), taken together with the patient's clinical presentation. Biotin has been reported to cause a negative bias, interpret results relative to patient's use of biotin. Lab Interpretation Normal (test code = 62352-1) [facility] [id number] 05:25:20 Test Item Value Reference Interpretation Comments Range TROPONIN I (test 0.009 ng/mL See_Comment [Automated code = [id number]) message] The system which generated this result transmitted reference range : <=0.034. The reference range was not used to interpret this result as normal/abnormal . LUZMARIA (test code = Reference (Normal) LUZMARIA) Range (defined by the 99th percentile reference limit): <= 0.034 ng/mL Note: Cardiac troponin begins to rise 3-4 hours after the onset of ischemia. Repeat in 4-6 hours if the sample was drawn within 3-4 hours of the onset of the symptom and found normal. Diagnosis of myocardial injury is made with acute changes in cTn concentrations with at least one serial sample above the 99th percentile upper reference limit (URL), taken together with the patient's clinical presentation. Biotin has been reported to cause a negative bias, interpret results relative to patient's use of biotin. Lab Interpretation Normal (test code = 74979-1) [facility] [id number] 05:25:20 Test Item Value Reference Interpretation Comments Range TROPONIN I (test 0.009 ng/mL See_Comment [Automated code = [id number]) message] The system which generated this result transmitted reference range : <=0.034. The reference range was not used to interpret this result as normal/abnormal . LUZMARIA (test code = Reference (Normal) LUZMARIA) Range (defined by the 99th percentile reference limit): <= 0.034 ng/mL Note: Cardiac troponin begins to rise 3-4 hours after the onset of ischemia. Repeat in 4-6 hours if the sample was drawn within 3-4 hours of the onset of the symptom and found normal. Diagnosis of myocardial injury is made with acute changes in cTn concentrations with at least one serial sample above the 99th percentile upper reference limit (URL), taken together with the patient's clinical presentation. Biotin has been reported to cause a negative bias, interpret results relative to patient's use of biotin. Lab Interpretation Normal (test code = 84346-8) [facility] [id number] 05:25:20 Test Item Value Reference Interpretation Comments Range TROPONIN I (test 0.009 ng/mL See_Comment [Automated code = 9660363805) message] The system which generated this result transmitted reference range : <=0.034. The reference range was not used to interpret this result as normal/abnormal . LUZMARIA (test code = Reference (Normal) LUZMARIA) Range (defined by the 99th percentile reference limit): <= 0.034 ng/mL Note: Cardiac troponin begins to rise 3-4 hours after the onset of ischemia. Repeat in 4-6 hours if the sample was drawn within 3-4 hours of the onset of the symptom and found normal. Diagnosis of myocardial injury is made with acute changes in cTn concentrations with at least one serial sample above the 99th percentile upper reference limit (URL), taken together with the patient's clinical presentation. Biotin has been reported to cause a negative bias, interpret results relative to patient's use of biotin. Lab Interpretation Normal (test code = 30451-3) [facility] [id number] 05:25:20 Test Item Value Reference Interpretation Comments Range TROPONIN I (test 0.009 ng/mL See_Comment [Automated code = 6931711535) message] The system which generated this result transmitted reference range : <=0.034. The reference range was not used to interpret this result as normal/abnormal . LUZMARIA (test code = Reference (Normal) LUZMARIA) Range (defined by the 99th percentile reference limit): <= 0.034 ng/mL Note: Cardiac troponin begins to rise 3-4 hours after the onset of ischemia. Repeat in 4-6 hours if the sample was drawn within 3-4 hours of the onset of the symptom and found normal. Diagnosis of myocardial injury is made with acute changes in cTn concentrations with at least one serial sample above the 99th percentile upper reference limit (URL), taken together with the patient's clinical presentation. Biotin has been reported to cause a negative bias, interpret results relative to patient's use of biotin. Lab Interpretation Normal (test code = 12827-1) [facility] Test Item Value Reference Range Interpretation Comments Fibrinogen (test code = 9410126952) 443 mg/dL 214-470 Lab Interpretation (test code = Normal 36982-1) [facility] Test Item Value Reference Range Interpretation Comments Fibrinogen (test code = 0238044683) 443 mg/dL 214-470 Lab Interpretation (test code = Normal 63902-3) [facility] 05:15:38 Test Item Value Reference Range Interpretation Comments Fibrinogen (test code = 5115046449) 443 mg/dL 214-470 Lab Interpretation (test code = Normal 32103-2) [facility]OL[facility] ([id number])2022-09-20 02:46:43 Test Item Value Reference Range Interpretation Comments NA (test code = 141 mmol/L 135-145 6613409577) K (test code = 4.1 mmol/L 3.5-5.0 6371974552) CL (test code = 106 mmol/L 98-108 9949212809) CO2 TOTAL (test code = 28 mmol/L 23-31 6229672826) AGAP (test code = 2-16 3111403556) BUN (test code = 17 mg/dL 7-23 8977305271) GLUCOSE (test code = 117 mg/dL 70-110 H 4976545231) CREATININE (test code = 0.96 mg/dL 0.60-1.25 6175158500) TOTAL BILI (test code = 0.8 mg/dL 0.1-1.7 6074296674) CALCIUM (test code = 8.3 mg/dL 8.6-10.6 L 7969232489) T PROTEIN (test code = 6.9 g/dL 6.3-8.2 3179061994) ALBUMIN (test code = 3.4 g/dL 3.5-5.0 L 5770079990) ALK PHOS (test code = 94 U/L 34-122 2118627841) ALTv (test code = 25 U/L 5-50 1742-6) AST(SGOT) (test code = 53 U/L 13-40 H 3251543462) eGFR (test code = mL/min/1.73m2 0055555448) LUZMARIA (test code = LUZMARIA) Association of [...] tests). Lab Interpretation Abnormal (test code = 59070-1) [facility]. METABOLIC PANEL ([id number])2022-09-20 02:46:43 Test Item Value Reference Range Interpretation Comments NA (test code = 141 mmol/L 135-145 4020680320) K (test code = 4.1 mmol/L 3.5-5.0 1433878674) CL (test code = 106 mmol/L 98-108 4942633649) CO2 TOTAL (test code = 28 mmol/L 23-31 7234926667) AGAP (test code = 2-16 4462866167) BUN (test code = 17 mg/dL 7-23 8270664380) GLUCOSE (test code = 117 mg/dL 70-110 H 3467043967) CREATININE (test code = 0.96 mg/dL 0.60-1.25 9045475415) TOTAL BILI (test code = 0.8 mg/dL 0.1-1.8 9682329935) CALCIUM (test code = 8.3 mg/dL 8.6-10.6 L 3977257795) T PROTEIN (test code = 6.9 g/dL 6.3-8.2 2734818491) ALBUMIN (test code = 3.4 g/dL 3.5-5.0 L 1154884572) ALK PHOS (test code = 94 U/L 34-122 3116005881) ALTv (test code = 25 U/L 5-50 1742-6) AST(SGOT) (test code = 53 U/L 13-40 H 9160277006) eGFR (test code = mL/min/1.73m2 8954038478) LUZMARIA (test code = LUZMARIA) Association of [...] tests). Lab Interpretation Abnormal (test code = 43201-6) [facility]. METABOLIC PANEL (37003)2022-09-20 02:46:43 Test Item Value Reference Range Interpretation Comments NA (test code = 141 mmol/L 135-145 2535765895) K (test code = 4.1 mmol/L 3.5-5.0 0820975994) CL (test code = 106 mmol/L 98-108 5238025008) CO2 TOTAL (test code = 28 mmol/L 23-31 7135724063) AGAP (test code = 2-16 4247835606) BUN (test code = 17 mg/dL 7-23 0282332932) GLUCOSE (test code = 117 mg/dL 70-110 H 2873448482) CREATININE (test code = 0.96 mg/dL 0.60-1.25 7682138471) TOTAL BILI (test code = 0.8 mg/dL 0.1-1.9 7607717324) CALCIUM (test code = 8.3 mg/dL 8.6-10.6 L 5771203051) T PROTEIN (test code = 6.9 g/dL 6.3-8.2 1079128538) ALBUMIN (test code = 3.4 g/dL 3.5-5.0 L 5588345927) ALK PHOS (test code = 94 U/L 34-122 0248139276) ALTv (test code = 25 U/L 5-50 1742-6) AST(SGOT) (test code = 53 U/L 13-40 H 9450959837) eGFR (test code = mL/min/1.73m2 7732156780) LUZMARIA (test code = LUZMARIA) Association of [...] tests). Lab Interpretation Abnormal (test code = 57615-8) [facility] Center[facility]th[facility] Time / [id number] 02:33:26 Test Item Value Reference Range Interpretation Comments PROTIME PATIENT (test See_Comment [Auto mated message] code = 5964-2) The system [employer] generated this result transmitted ref erence range: 12.0 - 1 4.7 Seconds. The re ference range was not u sed to interpret this result as normal/abnor mal. INR (test code = 6301-6) Nor mal INR <1.1; Warfarin Therap eutic range 2.0 to 3. 0 or 2.5 to 3.5, dep ending upon the indica tions. Lab Interpretation (test Normal code = 48499-0) [facility] WITH [id number] 02:26:01 Test Item Value Reference Range Interpretation Comments WBC (test code = See_Comment L [Automated 6690-2) message] The sy stem which [...] as normal/abnormal . HGB (test code = 9.7 g/dL 12.2-16.4 L 718-7) HCT (test code = 29.5 % 38.4-49.3 L 4544-3) MCV (test code = 89.4 fL 81.7-95.6 787-2) MCH (test code = 29.4 pg 26.1-32.7 785-6) MCHC (test code = 32.9 g/dL 31.2-35.0 786-4) RDW-SD (test code = 54.0 fL 38.5-51.6 H 43121-0) RDW-CV (test code = 16.3 % 12.1-15.4 H 788-0) PLT (test code = See_Comment [Automated 777-3) message] The sy stem which generated this result transmitted reference range : 150 - 328 10*3/ ?L. The reference r brianne was not used to interpret this result as normal/abnormal . MPV (test code = 9.8 fL 9.8-13.0 61650-4) NRBC/100 WBC (test See_Comment [Automat ed code = 5438664377) message] The system which generated this result transmitted reference range : 0.0 - 10.0 /100 WBCs. The refer ence range was not u sed to interpret th is result as normal/abnormal . NRBC x10^3 (test code See_Comment [Auto mated = 8381106743) message] The s ystem which generated this result transmitted reference range : 10*3/?L. The reference range was not used to interpret this result as normal/abnormal . GRAN MAT (NEUT) % 71.5 % (test code = 770-8) IMM GRAN % (test code 0.50 % = 3522200043) LYMPH % (test code = 16.0 % 736-9) MONO % (test code = 7.4 % 5905-5) EOS % (test code = 3.3 % 713-8) BASO % (test code = 1.3 % 706-2) GRAN MAT x10^3(ANC) 2.82 10*3/uL 1.99-6.95 (test code = 0486149790) IMM GRAN x10^3 (test 0.00-0.06 code = 8758703953) LYMPH x10^3 (test code 0.63 10*3/uL 1.09-3.23 L = 731-0) MONO x10^3 (test code 0.29 10*3/uL 0.36-1.02 L = 742-7) EOS x10^3 (test code = 0.13 10*3/uL 0.06-0.53 711-2) BASO x10^3 (test code 0.05 10*3/uL 0.01-0.09 = 704-7) Lab Interpretation Abnormal (test code = 48617-2) [facility] Center[facility] Abdominal Pfnlp8514-03-06 17:56:47 Test Item Value Reference Range Interpretation Comments Case Report (test code = Non-Gynecologic 9249425173) Cytology ?Case: [id number] ?Authorizing Provider: ?Shane Mansfield MD ? ? ?Collected: ? 06/18/2022 1208 ?Ordering Location: ? ? Family Medicine ([facility]) ?Received: ?06/18/2022 1018 ?Specimens: ? A) - PLEURAL, RIGHT, EFFUSION ? B) - ASCITES ? Final Diagnosis (test x3urlBXsZMXmj1gzAMWxv code = 7520291590) GFuZzEwMzNcZnRuYmpcdW MxIHtccnRmMVxlcGljMTA tSGBiDH9tuAhkpYm6yQls YFVplaD0eKByVNfsz5kpK FU8w0ihqwurMUIzUSvzXo 9udHRibHtcZjAgQXJpYWw 9kQ14RBJtjS4vkORtBPt7 XHBhcGVydzEyMjQwXHBhc MVsrDM6XSXeTR3tcvkwUA klLGkeBFAfdmB3QFYktQK bC5EmUWChLG6hvvmmQDQ8 JAkeQQSiTQA9KvYtKSKet 5Nyyuc2YoNxrUHpGKxpxV FpblxmczIyXHBhclxiIEE uIFBMRVVSQSwgUklHSFQ7 DQLDQ4BOE8JJEPLBABXlG rqXPLG2ACZtnhRfOJRnUV VQKAqRQVgRLAJQJ7TeFIJ RHOaBOX4YFBFNMCkKZDgH QUEyB40ZVGRFDTlmqQWqG HBhciBCLiBBQkRPTUVOOy PXIEEWU8PVNMLPAZYgHrs AEBI0XRHbqoIkZOYmOR4s LhGMMBKRIkSlTn9CJE1YG ElHTkFOVCBDRUxMUyAoU0 HGAGJVPW8EGdEqYMCfcem zIYcvZIH3o5twvRZaGVKl vNUiNnUyJZMqZEWgh0vbD GVmbGFuZzEwMzNcZnRuYm eihJJcQQOhSbEoc0uhl24 5qEPlg6bkEWRqHqU9pXUs KUZpcSafmoa6nJdqTqBdG LTkr4mnmcZfYcXxUCMoXV XkMDLgjAYiG641UOFhCHg wo9iec2RmYPBnvFGpo2U9 TSJBYHuqEcVcY071y6vet 2syecQsrKV8UYYqYXL2YS bnotOewmZ9OCgkcNWgEhS 1IDtccmVkMFxncmVlbjBc Vhh5GUEkC170DJA0aDlgt 7bvIBN9ZVWyMYZqQurfZf 4atSLmN308VCDkWQORERL fqLs9IVXoutGslbGimTPI l573U480t2mwXQAwbqToi OiTjywfo0wmS993YZBriV VydzEyMjQwXHBhcGVyaDE 1KJFgFH0vicrtLRqbDAig KLToayN0EGLnjMWuD8ZnE ZMbMV7uponfYRJ2SDouYV VsFZU9YjCkIUIcj9Giwtx 3EgMfht2djt35XXH6o7Vm qBuaXWZ3LDP6LwVyYr3ro HEvNHNmSM7fHsFziQKxKW Bxbh58iCdyHSxosbRxzN2 rAgMaXBKurMQvCQWkHD7z zOUpZLAdpD2airgkRCUxJ nJkcmhlYWRccGdicmRyZm 1etErrUSU6GEeaN2yupB3 xVrK5HNvzU5ldoI7nMBb8 EDbwmHC4QKQjbS6eVF5tv fatc0irOJtiKJqiLIKdtc F7svD3RFQteODoG1YsyS9 yZVSiIZ3ryiamx0qtPAJ7 ZGdiOHUgCZO1QqXsSBMtv 9Bxdvq9DtZma8VsvAOfNS xyS86ty977IADzzzKoY5h wbGFpblxwbGFpblxmMFxm osQ4FWUaNAWcPHfgDYDcJ GZzMjBcbGFuZzEwMzNcaG ljaFxmMVxkYmNoXGYxXGx vO5olQiBpT4JxVVIjIiHe xYMjZGdusWS4DZEeMHCnq 49leUj8OLEoiwxxo7LyGY LdkXHzkATpsN2stcXac1s wULBmKEReFOQdN1HhYWD8 pJRzNDZghQApfSA9XD0gd sFbVE1pSIWxExksrwLjlH AumqXuDRUuCMmne6tqRC1 iVRNseDrzxR4bpHE2HFDr o4cdpRMoiJBaz5ffi0Qpy mFtZShzKSBtYXkgYXBwZW VzNH1eFMRjoZQpdvUbp9X 2SyewfGMtahvhZfgjidY9 TFzfzdtgYOOqLOyfK1ybU mAkVKYpcDhyKbslw1TmNF YyXGZzMjhccGFyfX0= Final Diagnosis Comment h7sjdPKwJJTjjHOhYVPkF (test code = 4794466149) 5vjoaBcTIBqmXMkM4Wybz cbRUswME8mTB2lnGhloAR aaHSsYHDuYbJur3bwu775 zSQut0osZEYXnwduvUx7m DlcH42pk5A7WfedM22dyS MfBFG6MCNsWKBygIQzSJG iLAD7RAKacDFqR6rmWPRk KX3zyratPFjpBSrgIQZfb WR3WTKafSKiY0KqPUIcNN waYDQbcqy1QiPuVk3paVK yeTcyMFxwYXJkXHBsYWlu ZKMeSnQsW88mDNOjXALxk 20gdGhlIHBsZXVyYWwgYW 0oILCdAB8jcG2wwZGpgQJ kMGDihF17EX1hqDWye0Fa oSdlQLIanK5oiH0rfWNgc nacfXvflImrS0p5WXSpTO VlKUZoQIZiwVq2BZZfCCS dsWscsUxtkOHcGLdkxk2n Kn6wcYYmpSspWI97DMTqp WxpUNjvWP16qCRiOYDsrP FyfQ== Clinical Information Liver cirrhosis (test code = 0055491930) Gross Description (test x9bzcTPeOZRkmLKqABArP code = 2932112500) 0advxYkRUIqwYBmJ3Pbuw zyPXncFM4bMD6wsVkydNC rkZAqFLVwYsSsp1xpo873 cSXar6eiPCTKjjslkXc6e QwjH19rc0B6KctyE32qyD TvGYV7ECUeEATvtYXpVNK xJGK0FMJvbKXjQ6lkOUWv YD3waakeOMrmOGlsBEOkc JI4LJAdmMVbM9OwBWSoGY vjLBAjcvs2MvDgRd1fpFW kvKpsIFyoZsjqtMsdt4Uw dCBcXGlkIDUxMDAwIFxcb qqrBGw2UAZhNPlkyYRtHY 8xeHqsThthpNhgb0KbsLO cXGlkIDUxMDAyIFxcZGIg O4LQIOJeRrj3LZAfWQPbI Ce2POktD3KXYAVaIPX2PW b8PEj0NiE4EZd4KOFJHg1 uHRS3VFu4HLDvSCN7LDFu MiBcXHQgMiBcXGZsIFxcZ iBBcmlhbCBcXGZzIDEwIF lrkjR2EMUkzrOqhPiboE2 cZnMyMFxwYXJcZnMyMlxw YXIgQTEuICBQTEVVUkEsI XSLR8aCSvPXLY0WJWHXTu SHK6bCGNYFKFzVSJCwegV SZWNlaXZlZCBmcmVzaCBp ouKzEwYfW4KzjhMeMrZ8G Djuz7qwYno8xRJlKURerj BQcmVwYXJlZCAzIHNsaWR kgpHfMVEUEMXiuxpnp5yv x2ZhZ5r7m5ZizT7jUZDwA e0uOH7nw9KdlFAfuFKyq0 BpbiBhbmQgMSBUaGlucHJ lcCBwcmVwYXJhdGlvbil7 OYWnqWWlVRW4IW0lOLQlq odgFORjEUFnDPM1IWxkcJ 11bHQwXGZzMTZccGFyfXt yWymsrQztm3LtkAVeCJfg XFEbBRSbQHfcRLEmK2WIS LIcFtx5TFVrBNNzXXs1QQ ooR1HYBRMuVLD7VXx9HXr 1LlT7QUp4BJYGAn8oFAD5 EWg2Sof6ZvY6TAJfGvKnZ HQgMiBcXGZsIFxcZiBBcm lhbCBcXGZzIDEwIFxcbmN 9XGZzMjBccGFyXGZzMjJc jKIjKFStAaRsRNRMB50BM abxVQHMZMFFArDFD0gIIK ZMVUlEXHBhciBSZWNlaXZ lZCBmcmVzaCBpcyAxMDAg L5HkjhMcRiX1AVyxl2mmY os3eASbZJDwwcMRjqFvTF JlZCAzIHNsaWRlcyAoMSB XGDJpffjhs9ihl2WwH7l3 d9HveF3kIZEpRk6pPT7ii 9FblQJnzPHrf7FbhqIlkv QgMSBUaGlucHJlcCBwcmV mYVStsDyprvz3HFBbgDRj HSP3TP9zcIjmBKAzC1MkT 9TfibF6XBWiue3= Disclaimer (test code = d0jgnLYlVZDjk7bnIBGpq 8320950181) GFuZzEwMzNcZnRuYmpcdW VzLFqrdlZpRRhrn8ChW6P yMjAwMFxhbnNpXGRlZmxh dansDUYaABF0jnKpPKXjT XfiSETrMQcnXq6fyOZyiP ooIcRhZWZgt1lrwrSTOZl eLlXrM452PXRaMXlvh1ls h9JqNKUtuAWhc5R3ETNDo aetcKf4yWvtH33zf3X1Az doV8doROViYDFiJ8IfJW3 cFQBaPtz8VES3IVY6AEPq QAZaV5KdTD5iKUYlfSVzI Tg6i8ybcTkxFFRvZQJ4f4 hpABcprjLiDJ2mik1xgDx 5g1ulsuGyWEYyIYNdaCKF LJXhP4VxrWcwLf4oaRz7f WxjPabkOGT4Haj5UF6grc 37ufd5mTmqFHWxuaymQkP 9COkdHHSkpxvqGOr8XNfq GNVuqSC4UCEkxJRyE9SrN JWiWW4kmef5VSM1JFjvHK WtSkO6UYRcvPUqZGIkyCg mLAjcc272ZNW0UzNoPC9x J7Nyq1N4vR6zcKIaCXGip INkXhIoLDOxjv7hlFHnNO yhu5OnVKD7bgI3xLRnsWI xCVZgFZ00Kqjqi5OoLrfk u9DoL57auTI8EGcst6rrG P9mEdA3olLxVMqmh3vkxI 2qMcF3GUdoTC0gPL1lFCR ebA2pafcyUFOsJcWhoszt QGLltSoyyvObUj9tuUhaS ZH4EHacY3adfY1hSzF1PK ppM4xomE2yBIa2GJoccCI 2EOFzwQ8lMB8zyfqli8yw NMwrUBjgHODmrzD0pkB1T PRumEFkI4FwkM1qGKIvBH 6jdptrx1nrQXR2FXucTVE eKOT9MyDdCEMnk1Ubbyr3 ZtZkl3DsyVKuIDtpF04vf 411FKQqccNpL9eytDUavr rwfYYovpbpHMjiamW6ZRL hxrYog8CyVELyBAY0ZEtz ZXzkeDFlFALpwDhhx8yrH 3RscGFyXHBsYWluXGYxXG ZzMjBcbGFuZzEwMzNcaGl jaFxmMVxkYmNoXGYxXGxv J9ijDnTsV2BmKSTqGtBwz XRiR2hhLBnxheNwBZIkvq KilUC7RDedK6x8KXVqjlP peRn5imKtRkJjZHZzTFE4 JGhldVKyQUQme2Yudajml YJdNi1adOYmYNXdzU6gNB XuSPZlFQfqQC3upKf3MSO BvIXxmUZkXjXWYDOqAW18 iuPzUACQrqmct5V3PKptS LEap0KnfLLyG5xwc3CfFE Pqd22fSD7rn6D3n3ppRHJ 7JU0ts5ViKSEhxKIwcTAq GAOtv0Mrnptor1LvGNSld fTrv2UqBWPlkoZzrGJvDA SqusOxsm0woiSuPMFdOMO wD0RmzsvpzLyuijAnITQz dj2hjxWmTMO2RUOQBBCeH MFyw3OxuP2twMJRODU2lP Bopa9poqWWlZHdTOMuyu2 1TFXdWU2tB0qkBMDtCOFa dtDmxPIfi8DuZTBucQI4q NJgST9GCtKCo24qJKGoUM YBosBcPRJpgNxxwNF4dmN 3aT2jDYyTKTDaCwh+IFRo JAUPVUEdEB9pgcWts1Ubt lLiqScqBGIcdHYjc1HlqC Ank0QfiGkom6TflBTsiYQ sGG3fKDDiqzwpHVXtWZMN UvEZNRMnkjG5a0IpFJRuW KDhUEI6sOcfmdb5QCRnzF 9yMOHzW5wxhbsoLKnsAXD vs9DwwB5isQUIpDWnr3Sr eMWdpYUZtCNyOF2chzChY HfNGPsKYMY0zkKeGXElp2 WgRJtfT2gdE74iaEmevDu 5eLL8AHB3rO0fRrk+IFxw YXJccGFyIEFwcHJvcHJpY FQjfIrbyvJlW0DlvkZwgR 7smEZemwIcTS0nMR6pY4G 2iFLsZKZrndDgx6ysSWbd dmUgYmVlbiByZXZpZXdlZ ICeh5VfGRccPFY7BDzesd BpbmNsdWRpbmcgSCZFLCB HmZPcpRDhYEW8MSrpnrWm wpZlEQ4haI7fvQufiO3vo TWumJP9rnlpPRRuPMRmtI gxKZIaTY0jcVXtJUJoezN PeDghwMFhoU8oY1YmCWOr QTLbre7sLVKoeA3oKZhgs 2VydmljZXMgYXJlIHBlcm Zqcr9gXRNtxGWERA5TBJx tmPEdl0HgilBaF4tRNBC9 NUQwNjYwMjgxKSBleGNlc ZKbITLpyl17WOCteD7klR xuORFcvS7hgU4ytSdieW2 jMtXbQvAxFKtwOE4xQPZt O3pmnNMsCLBdZJUaJ0sgJ mKdsP7mnWciNObdFqHgEt MfHUtoYIS2tX== Embedded Images (test code = 1088222572) [facility] [id number] 17:56:47 Test Item Value Reference Range Interpretation Comments Case Report (test code = Non-Gynecologic [id number]) Cytology ?Case: [id number] ?Authorizing Provider: ?Shane Mansfield MD ? ? ?Collected: ? 06/18/2022 1208 ?Ordering Location: ? ? Family Medicine ([facility]) ?Received: ?06/18/2022 1018 ?Specimens: ? A) - PLEURAL, RIGHT, EFFUSION ? B) - ASCITES ? Final Diagnosis (test p3cxeKKfWTMlb9mcSAIch code = 4978773078) GFuZzEwMzNcZnRuYmpcdW MxIHtccnRmMVxlcGljMTA aXCEiRA8dkPidrTd3mIlb YMJyutU2uHVoIMjwp0ysS SK6o4rlwuxdPAVyWLgoSt 9udHRibHtcZjAgQXJpYWw 9dI91KMEmjC2lcDWwGWz7 XHBhcGVydzEyMjQwXHBhc UUezIJ5KEHxZR5jmvgqFR daMSplNDSdtlQ7ICPixDC fK2OcYMDdGG0oequzWDE2 KHyeIPGwYMR2LhCmQUPnm 1Tuwac3RmRcuVVuVOcgjK FpblxmczIyXHBhclxiIEE uIFBMRVVSQSwgUklHSFQ7 BLXUE3NSU4SZSHLVOQOwR ptFRYW4ZANcxpJgUFKhGS VQQBlZBLkCYXVWH2TuVNJ SIQxCTW3KFQLQOImSNJfZ RBWmN12VZJYYFFkfyUSnF HBhciBCLiBBQkRPTUVOOy MWSIKRR8HQSBQVIAWgNyx QFWZ7POIwusUkRDWlZX5s VyFPZCUSJeQeXq4UPU4MR ElHTkFOVCBDRUxMUyAoU0 SMFXHIEC3YQgWzKZMdotz qDGxlYMJ2w0lpbAKxEJYj uTJmPoEyXLAyZVIqb8qjA GVmbGFuZzEwMzNcZnRuYm ireALkKZOgXyQot0zyp73 0xGCuq8itPNBwAiC7uOTw KMLodBgkjoi2dFnmMgLjI DEww5utsgZmEjYyVHVgJA PvFZIscIOiL397BGLdMMv lm6wlk6OeGGVfmHPre9V5 IAZAZRqxDxAiE117r5kcd 4uozxLuoTS3NQAkSWE6TJ tbblWhqrN0DJirtFUkRbG 1IDtccmVkMFxncmVlbjBc Qrc0IWErZ866CJH1bZpkt 1zlGIQ4QEZdOAXgRgqgXn 7euXKzU659CKKnJXPOSQU nuYd0DLGookRawvIlrCOO f206Y160p6azYXDavcBen OgZxhdza4xjV756EVTscJ VydzEyMjQwXHBhcGVyaDE 2JQQdJK5elekbRPrlKWkk ZAAqisB6UUWcmPItA7BnC GTcDP2svrqwZNG2NXjiUR KkKDO5CvDnKVPwj9Rdcru 0MiJxoq6jcg56CYE8y6Ni lPlxHUO7XPJ3QuLbQc5gj QPiDLIhWK1yQqEblHZnRS Icsm16rVreGMiphwFyqK3 jWzSmLDLafJQcQFMaXN7v vGBkNOZyjG2wxxhpRTYjC nJkcmhlYWRccGdicmRyZm 9aoGbbYIA1TUbaX8nyqJ7 kDeS6GCncO8qmuF5aFHs3 QZvleDK1VCIypU1vLY1hj hhnu3wqXWxiRRoiWOMqex H7esW8UIRilUXhG3WwoP7 iGNZuEF7efrdln6blYLF6 ZNpzCDOmFBC8FyFqQFWze 6Hfkvt5JyTdl9VsrHOmGG opG90bw741XTFixuQzL2p wbGFpblxwbGFpblxmMFxm ogY7TEQoXNEgUDkiNHIrO GZzMjBcbGFuZzEwMzNcaG ljaFxmMVxkYmNoXGYxXGx fE1idMsSxK4YcBYLbSzSg jVJsXIpvlRA3ORMuMRPbn 85ayPv8PACffjwwj3LtHQ QdnKQilOLqlY9bmhTsm1b nSNBaIAZmQHGhJ7AwEZM3 pBGuVBKvhBZzrGC9RZ4hr mAzLS3jCNXlNklkumPilW YmydOaSEPsOPgei7fkZA3 tZDMwtTbgyU3wpMJ2KNKa m8pqjYZldSWgv8ngb0Brf mFtZShzKSBtYXkgYXBwZW MpQW7gCHXcyYEickNbe4U 7MtiwkJZgtgnyBaabeuO2 SVhjlxpuDJCuEKexN2ocP dOmKAEgsIrnPlsmv5FpID YyXGZzMjhccGFyfX0= Final Diagnosis Comment i6cbpNBfRQCtdACyLQEsC (test code = [id number]) 7wqfsMoALHihEZxK8Kczx oiCDkdSB2uRM3fkVgosWK hyLHsOINiDfBjg1lbo581 fSZvc4jeRUYXeuixbXm9p UvbN61xo8R6ZmdhK40erB NjHDV3LZRlACHmqHYqSXI uVEM6LPHcbGUzL3qrGMVc JO8rmlnbLRyeJGpgXNHjh HV4RXXldLRhP7CmIMJgLC pkLVGpvdi5OmAeWb3vxOZ yeTcyMFxwYXJkXHBsYWlu AHRqDeKxH26rWVOkOUEhw 20gdGhlIHBsZXVyYWwgYW 1wYNLvZH1bzJ0ycESdaEZ xYQRrjK99WQ9owXYiu7Vr hSrtQQOvtK0ynD5awZDfx ofekImkcJptM9x4TLPhJW AzMKIpMHVhnRh1EYTpSTN fvJvthDywvKGqWTavii9u Gd5viMLtvQrdPJ29FGEyy NpnWGovMG13dGRzBTDkyB FyfQ== Clinical Information Liver cirrhosis (test code = 1385597693) Gross Description (test f1kacJKzVFBgfKNpNDUaG code = [id number]) 1vxluDtEYFpaGVuC0Rgfm yvHXixSU8dGE8stOuxqGV pkRNcAICgSfStn7kqs731 fOLbp5aoSTJQsqoqtNl3t HwwS32sw6G8RcryM38ixM XuHEE5ISOrWWZljBGtXQO lQTJ1RSQotZRkB6guHBPp NC6znameDPfmWUexZCDco UI3NNPznFDqF2MtLEHkDS jrNJGgqvf1AkMwWr7toZI cjFnxRMmaZpaybGewg5Nq dCBcXGlkIDUxMDAwIFxcb yjjRDu2GICzNFdpqVZuFA 1mxGuhMoktlBlhn5IshGH cXGlkIDUxMDAyIFxcZGIg B7IXWGAdPbb6TBCxHGYlO Fd7IBfcE8CVYZPuYBV0HO t9EAt5DoF9XQe7CSLFWv0 rQDR7CYk5WNHoSPM0LAEd MiBcXHQgMiBcXGZsIFxcZ iBBcmlhbCBcXGZzIDEwIF fvddG0TBVukxMevKfrfS8 cZnMyMFxwYXJcZnMyMlxw YXIgQTEuICBQTEVVUkEsI RRAS9bQYfDCSX1ZJJCVJv PSC8oICSVGSLtLTKNsdkH SZWNlaXZlZCBmcmVzaCBp ifFkFsFyI6FslyOcClX9X Jacn4jtCdp1gNUtGTQedq BQcmVwYXJlZCAzIHNsaWR pxcUoTVLZCXHpiwirw3gr w9HoM8l5z4EusS1aCOCnW o2wFT9eh8FegUQejARaj2 BpbiBhbmQgMSBUaGlucHJ lcCBwcmVwYXJhdGlvbil7 VFMfjDUlAGM2FR3hCFPrz hqqJBJgZQIxIVR1HGshgS 11bHQwXGZzMTZccGFyfXt oOdxbyUwak4RqjCJoOXfl TJOwCMLrCMfuGJWxV1AVT QEmJrg6XUBmIFGgVCt8GO tgT5XPMFWcVLQ0ERs2HUp 9ObQ5CAj9QYFBKq0nTCS6 CSr4Fri6KyE5EEYsKtHvE HQgMiBcXGZsIFxcZiBBcm lhbCBcXGZzIDEwIFxcbmN 9XGZzMjBccGFyXGZzMjJc bQOuWQVhWiVwZNIWL95ID trpCELWQSBJEzPOE7tWUP ZMVUlEXHBhciBSZWNlaXZ lZCBmcmVzaCBpcyAxMDAg L8YpciVjOyR3SCpks1hcH uc2bACiHNGifaJCmoQuMW JlZCAzIHNsaWRlcyAoMSB PKSMmilpqk2vvi1XuG3m6 i6OjvI8cAFXdVq0bLE9re 6OuuKVqcXExy3EjkyYeac QgMSBUaGlucHJlcCBwcmV lAUPyuVvwzsq5PSBtdODr FKV4GC0dvAzhUSOkO8NlK 1SlptJ9WYNaap1= Disclaimer (test code = o4atqOSpQPRgp3hjFTOir [id number]) GFuZzEwMzNcZnRuYmpcdW PoRBrjraXbGHtjn2AbN9N yMjAwMFxhbnNpXGRlZmxh hpgvQKYsSZM0bxFfKQGeB VajTAFqSFuvKh2fvXRjpE jmOmFxVIExy8hkdxZJZXp gSePpH192ELRoIAzye3hz j8VvPPIcoMBsj0Y3SEGFh esntAm9cPveS53eo0W8Gn xwC9ehWECzUGCmO3RsHM2 fFCNkEms2FJY8JAJ5PQYe PZDyB3LhJU5yXUMlyUIhW Fh1m5mrpZhhTTRmKRD6a8 lbHEsbgaBoXW8mes8mlEi 0u7tzbwNgOULdIEWjhINF XTMgC1WzbZpuPe6ctEm8e YvlCrlzVNC5Rpu6EB1esj 77lkk7qGwfLKPvmlhpSbA 7IDemDSEnbznsAEw0IVso FVRsdHM3NIRxgENzI5NjL FCoIL2wivt2OTK6SGxvHI TtArO2VFTwlZYmKCBnyLv fCUtva669MAS2AfBdIH1l E6Yks2B0aF8tzWAwGBSqv RXkGnZgZGVdac2fbGXkSN oqv6YpCGO6uaC7eFAaiRU aOTJqRX58Xsyug0IlRuiz r1KeQ44foVZ9MWcvu7xjH O8lXxS2dmWpLKskj2tneA 8rXhR7QPzqDI3lHW5uYWQ prK8tfpjuEXNeHdNjjcnt MSDwlFpfqpPnXk2qbEwkX SR9WTziY5vguI7tZhZ3JD miQ9qoxN7dEMf0PSetxDM 7KMNliL6iHD9lscqlm0rp PCrdHBmzOEVfvbP5osJ9M GNrnNCvJ8PwkK4mGINvJD 2hqltlg6gtSOB3YOhqLIU yMFK6KgVpMHLlk3Ndnah2 QxZhf4SdjLPyZUzzU73mi 524XBIlbkOgI0enoGYyjd tysEOhwslqVVjypuC8PER yzaNoj9OcGFDxJRB8MIdo JEdcuBEbCEIvhQuuu5ytH 3RscGFyXHBsYWluXGYxXG ZzMjBcbGFuZzEwMzNcaGl jaFxmMVxkYmNoXGYxXGxv L1kjTcMcP4TfPVRqKyAsa LGoN6jtIHctqjXgYRNxan JeeAM6XIuyB9g5WDDrpvV krJc0yfHbXmTiUEJyWMQ2 OFrbtHSyDGHyx1Kltukxt ZFbXc7jhBXjRKPkqP3wPT HsHBWqWDtmME4huNl0ZXL XcQMmzLYiNoIIZXDlXQ18 siQnZPBJmztbq4G3HGkqY MMbt4RzbXUyN6vuz6AmAW Qvu11pTN7wg7C3i3tiQFL 3PO2wk4BmIGIdzAZndPHy GVQgf9Kigxlvi3BfVAXmo iZjj6CjUGEutkDreALbWX DdkfZfnb6wwxWrWQBxIJV vI8WeronwiDovwlLqWELw be8bhcWlYRS4PQCLXVJqV EGsw7SsvX9gjLYGFYY2dL Guqj9cavTFkSGgQZRuso3 6MDFfLF7bD1kwODWwSCZu wzQxxSKiu6QsMYGqqDL7r YAgWO7KUsHDg83oCIPeSN ZLpyOkSVBflZevvWZ4caL 3dN4xVChBAJPkSxe+IFRo GEZPZRVsHV2irbNcg8Yog dHujAinTYXucCNyf1DmtY Agk5EinZckl7CtrRGgkAQ qNL3tZWHwythwDVLvVARR XdPZBVHqojE7i0MsTDSaJ VKmOEW2kQxahlh0WYBgdY 7jNIJqU2nwavexJLnhCEE ym5RvrD7wtOMLzKZfe4Ny bLJqwBMMhIHmLY0cbuBdT YmEYAcJGMZ4ieFqLXZat3 TiUZcqR3rlI04gjInsaEb 2sAK5CVV4xR5rMyt+IFxw YXJccGFyIEFwcHJvcHJpY KHoqVfoqkCgZ5NokqTxnM 9owNDkyoSqSR2jGN0tP8O 2aPKnTUAcgcAta8dxTSoi dmUgYmVlbiByZXZpZXdlZ OMrr6QjRJdzCMJ3BLuvzz BpbmNsdWRpbmcgSCZFLCB LkIVjtMYpKFB1OYguwvHr uhZiPR0nlS3joNrekE3rm EGlkQT5ipphQCYiEMGfpR unGRDfJC2nhZDgSSOmycS FcApzdULjhS9mG4VvNLEb AISwzd1uYUSuaZ1eQPihz 2VydmljZXMgYXJlIHBlcm Yuqp6sOFGkrNPGSB9VATc xqABka6HoekKvV6lCXWV0 NUQwNjYwMjgxKSBleGNlc OIbVUMuif57TFFipX2vjT wmSVZguI2ynC8sdOuutN9 fPiHtGwQqZLiqPG0nAYLf T3wdpEEiHUMqJHGyI7zdD zPgmP5wyCteTWvyOaLeSz GfUPaiHVQ3nP== Embedded Images (test code = [id number]) [facility] # [id number] 20:01:32 Test Item Value Reference Range Interpretation Comments Blood Culture-Aerobic No organisms No growth Previo us (test code = 54403-5) isolated prelim inary verified result was Culture In Progress on 06/10/2022 at 18 01 CDTPrevious preliminary verified result was No growth a t 24 hours on 06/11/2022 at 150 1 CDTPrevious preliminary verified result was No growth a t 48 hours on 06/12/2022 at 150 1 CDTPrevious preliminary verified result was No growth a t 72 hours on 06/13/2022 at 150 1 CDT Blood No organisms No growth Previous Culture-Anaerobic isolated preliminar y (test code = 56570-8) verifi ed result was Culture In Progress on 06/10/2022 at 18 01 CDTPrevious preliminary verified result was No growth a t 24 hours on 06/11/2022 at 150 1 CDTPrevious preliminary verified result was No growth a t 48 hours on 06/12/2022 at 150 1 CDTPrevious preliminary verified result was No growth a t 72 hours on 06/13/2022 at 150 1 CDT LUZMARIA (test code = LUZMARIA) Optimal blood volume for culture is 8-10 mL per bottle. A suboptimal volume of blood was collected for this culture, which could adversely affect recovery and/or time of detection of organisms. Interpret results accordingly. Lab Interpretation Normal (test code = 75386-7) [facility] - 30 minutes after transfusion of each [id number] 16:56:01 Test Item Value Reference Range Interpretation Comments WBC (test code = 6690-2) See_Comment L [A utomated message] The system [employer] generated this result transmit willow reference range : 4.20 - 10.70 10*3/?L. The reference range was not used to interpret this result as normal/abnormal . RBC (test code = 789-8) See_Comment L [Au tomated message] The system [employer] generated this result transmit willow reference range : 4.26 - 5.52 10* 6/?L. The reference r brianne was not used to interpret this result as normal/abnormal . HGB (test code = 718-7) 8.4 g/dL 12.2-16.4 L HCT (test code = 4544-3) 25.3 % 38.4-49.3 L MCH (test code = 785-6) 31.3 pg 26.1-32.7 MCV (test code = 787-2) 94.4 fL 81.7-95.6 MCHC (test code = 786-4) 33.2 g/dL 31.2-35 PLT (test code = 777-3) See_Comment L [Au tomated message] The system [employer] generated this result transmit willow reference range : 150 - 328 10*3/?L. The reference range was not used to interpret this result as normal/abnormal . MPV (test code = 9.9 fL 9.8-13 48218-0) RDW-CV (test code = 18.3 % 12.1-15.4 H 788-0) RDW-SD (test code = 62.3 fL 38.5-51.6 H 86697-8) NRBC x10^3 (test code = See_Comment [Au tomated message] [id number]) The system [employer] generated this result transmit willow reference range : 10*3/?L. The reference range was not used to interpret this result as normal/abnormal . NRBC/100 WBC (test code See_Comment [Au tomated message] = 5549940450) The system [employer] generated this result transmit willow reference range : 0.0 - 10.0 /100 WBC s. The reference r brianne was not used to interpret this result as normal/abnormal . IPF % (test code = 4264021529) Lab Interpretation (test Abnormal code = 65678-0) [facility] Packed RBC (in units), 1 Units 2022-06-12 11:23:50 Test Item Value Reference Range Interpretation Comments Cross Match Result Compatible (test code = 4409) ISBT Blood Type Code (test code = 719163) Unit Blood Type (test A Pos code = 4410) Unit Number (test [id number] code = 4411) Blood Expiration Date & Time (test code = 803720) Status Information Issued (test code = 4412) Product Red Blood Cells Identification (test code = 4413) Product Code (test M5898V42 Performed at [facility] code = 4414) Laboratory Services - [facility] Blood [address] [place] [address]Siey Free: [phone] A No. [id number] [facility] AYWJE2049-85-19 06:53:41 Test Item Value Reference Range Interpretation Comments IRON (test code = 9458714802) 68 ug/dL 50-160 TIBC (test code = 8050956858) 287 ug/dL 250-410 % FE SAT (test code = 4525125527) 24 % 20-50 Lab Interpretation (test code = Normal 92472-0) [facility] CenterType and Screen - ONCE Ktupngo9560-18-68 02:56:15 Test Item Value Reference Range Interpretation Comments ABO & RH (test code A POSITIVE Performe d at [facility] = 20) Laboratory Serv [facility] Blood Bank3 [address] [facility] s [address]Oojs Free: [phone] A No. [id number] IAT (test code = Negative Performed a t [facility] 1185) Laboratory Serv [facility] Blood [facility] [address] [facility] s [address]Mvtb Free: [phone] A No. [id number] [facility] CenterTROPONIN [id number] 19:53:27 Test Item Value Reference Interpretation Comments Range TROPONIN I (test 0.003 ng/mL See_Comment [Automated code = 6448841608) message] The system which generated this result transmitted reference range : <=0.034. The reference range was not used to interpret this result as normal/abnormal . LUZMARIA (test code = Reference (Normal) LUZMARIA) Range (defined by the 99th percentile reference limit): <= 0.034 ng/mL Note: Cardiac troponin begins to rise 3-4 hours after the onset of ischemia. Repeat in 4-6 hours if the sample was drawn within 3-4 hours of the onset of the symptom and found normal. Diagnosis of myocardial injury is made with acute changes in cTn concentrations with at least one serial sample above the 99th percentile upper reference limit (URL), taken together with the patient's clinical presentation. Biotin has been reported to cause a negative bias, interpret results relative to patient's use of biotin. Lab Interpretation Normal (test code = 96297-6) [facility] CenterN-TERMINAL PTU-HKH1450-56-31 19:50:06 Test Item Value Reference Range Interpretation Comments NT-proBNP (test code 821 pg/mL See_Comment H [Autom ated = 4681535651) message] The system which generated this result transmitted reference range : <=125. The reference range was not used to interpret this result as normal/abnormal . LUZMARIA (test code = LUZMARIA) Biotin has been reported to cause a negative bias, interpret results relative to patient's use of biotin. Lab Interpretation Abnormal (test code = 15878-7) [facility]. METABOLIC PANEL (43337)2022-06-10 19:41:45 Test Item Value Reference Range Interpretation Comments NA (test code = 141 mmol/L 135-145 0084148770) K (test code = 5.2 mmol/L 3.5-5 H 1572462596) CL (test code = 112 mmol/L 98-108 H 9066985728) CO2 TOTAL (test code = 22 mmol/L 23-31 L 4080129491) AGAP (test code = 2-16 9339312091) BUN (test code = 48 mg/dL 7-23 H 4701870882) GLUCOSE (test code = 141 mg/dL 70-110 H 6472911726) CREATININE (test code = 0.81 mg/dL 0.6-1.25 5243554952) TOTAL BILI (test code = 0.4 mg/dL 0.1-1.9 2205395729) CALCIUM (test code = 7.8 mg/dL 8.6-10.6 L 8933521802) T PROTEIN (test code = 5.3 g/dL 6.3-8.2 L 5706090619) ALBUMIN (test code = 2.6 g/dL 3.5-5 L 0169686253) ALK PHOS (test code = 54 U/L 34-122 8887818206) ALTv (test code = 29 U/L 5-50 1742-6) AST(SGOT) (test code = 48 U/L 13-40 H 0101295107) eGFR (test code = mL/min/1.73m2 0882827207) LUZMARIA (test code = LUZMARIA) Association of [...] tests). Lab Interpretation Abnormal (test code = 66055-8) [facility] CenterLIPASE2022-07-31 19:41:04 Test Item Value Reference Range Interpretation Comments LIPASE (test code = 9202218381) 459 U/L 0-220 H Lab Interpretation (test code = Abnormal 89596-0) [facility] CenterACTIVATED PARTIAL THRMPLAS [id number] 19:37:24 Test Item Value Reference Range Interpretation Comments APTT Patient (test See_Comment [Automat ed code = 3173-2) message] The system which generated this result transmitted reference range : 23 - 38 Seconds . The reference range was not used to interpr et this result as normal/abnormal . LUZMARIA (test code = LUZMARIA) The [facility] patient population mean normal value for aPTT is 30 seconds. Lab Interpretation Normal (test code = 74144-5) [facility] CenterAMMONIA, OOJXHS1754-02-05 03:05:08 Test Item Value Reference Range Interpretation Comments AMMONIA (test code = 7540694420) 57 umol/L 9-33 H Lab Interpretation (test code = Abnormal 43824-6) [facility] ABSCESS [facility](AEROBIC/ANAEROBIC) 2022-04-19 13:32:39 Test Item Value Reference Range Interpretation Comments Aspirate or Abscess No aerobic/anaerobic Culture (test code = organisms isolated 32376-2) Gram stain (test code Moderate PMNs or = 664-3) Mononuclear cells observed [facility] CenterPHOSPHORUS2022-06-02 09:45:31 Test Item Value Reference Range Interpretation Comments PHOSPHORUS (test code = 4310926528) 4.0 mg/dL 2.5-5 Lab Interpretation (test code = Normal 71838-4) [facility] REACTIVE [id number] 20:56:00 Test Item Value Reference Range Interpretation Comments C REACTIVE PROTEIN (test code = < 0.2 mg/dL <0.9 CRP) AB HIV 20:56:00 Test Item Value Reference Range Interpretation Comments AB HIV 1 (test code NONREACTIVE NONREACTIVE Done by [employer] = HIV1AB) 4th Gen HIV Ag/ Ab Combo Screen AB HIV 1 20:56:00 Test Item Value Reference Range Interpretation Comments AB HIV 1 2 (test NONREACTIVE NONREACTIVE Done by Managed Objectsaur code = GVY84LU) 4th Gen HIV Ag/Ab Combo Screen COMPREHENSIVE METABOLIC [id number] 19:23:00 Test Item Value Reference Range Interpretation [...] RATE (test code = GFR) mL/mi n/1.73 [id number] Range:Healthy Adults >90 mL/min/1.73 m2 For Chronic Kidney Disease: Stage II Mild Decrease i n GFR 60-90 Stage III Moderate Decrea se in GFR 30-59 St age IV Severe Decre ase in GFR 15-29 S tage V Kidney Failur e <15 CREATININE (test code 0.85 mg/dL 0.55-1.30 [...] N TOTAL (test code = ALKP) PROTHROMBIN [id number] 19:15:00 Test Item Value Reference Range Interpretation Comments PROTHROMBIN TIME 12.1 secs 10.1-12.5 N PATIENT (test code = PTP) INTERNATIONAL NORMAL 1.06 <2.0 RECOMME NDED THERAPEUTIC RATIO (test code = RANGE FOR ORAL INR) ANTICOAGULANTTR EATMENT: CONDITION INRProphylaxis of venous thrombosis in 2 .0 - 3.0 high-risk medic al or surgical patientsTreatme nt of venous thrombos is 2.0 - 3.0Prevention o f embolism 2.0 - 3.0Prevention o f recurrent embol ism, or 3.0 - 4.5 patie nts with mechanical pros thetic intravascular v bergman IS PATIENT ON ANTICOAGULANTS ? YLIST ANTICOAGULANT/ANTI PLT MEDICATION : Clopidogrel (Anti-PLT)Has Lab been notified if Patient is on Heparin Drip? NOIf Yes, order CBC, OCCULT BLOOD, PT every other dayNTHROMBOPLASTIN TIME PARTIAL 2021-06-20 19:15:00 Test Item Value Reference Range Interpretation Comments PTT ACTIVATED (test code = APTT) 31.0 secs 24.9-37.0 N IS PATIENT ON ANTICOAGULANTS ? YLIST ANTICOAGULANT/ANTI PLT MEDICATION : Clopidogrel (Anti-PLT)Has Lab been notified if Patient is on Heparin Drip? NOIf Yes, order CBC, OCCULT BLOOD, PT every other dayNC REACTIVE [id number] 19:14:00 Test Item Value Reference Range Interpretation Comments C REACTIVE PROTEIN (test code = < 0.2 mg/dL <0.9 CRP) AB HIV 19:14:00 Test Item Value Reference Range Interpretation Comments AB HIV 1 (test code = HIV1AB) NONREACTIVE CBC W/AUTO [id number] 18:55:00 Test Item Value Reference Range Interpretation [...] % 0-0 N code = NRBC) SED [id number] 18:55:00 Test Item Value Reference Range Interpretation Comments SED RATE (test code = SEDW) 82 mm/hr 0-15 H CBC W/AUTO [id number] 17:28:00 Test Item Value Reference Range Interpretation [...] % 0-0 N code = NRBC) SED [id number] 17:28:00 Test Item Value Reference Range Interpretation Comments SED RATE (test code = SEDW) mm/hr 0-15 - CT LOWER EXTRM W/O C [id number] 17:04:00 [facility] 1960 Sex: M Patient Name: DINO RENEE Unit No: [id number] EXAMS: CPT CODE: [id number] [place] LOWER EXTRM W/[place] [address] [place] SCAN RIGHT HIP AND PROXIMAL FEMUR WITH RECONSTRUCTION DIAGNOSIS: 1. 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 TECHNIQUE: Volumetric CTdata of the right hip and proximal right femur was obtained without use of intravenous contrast. Images were then viewed in the axial, coronal and sagittal planes. CT radiation dose optimization is achieved for this examination by the use of a CT protocol in accordance with ACR practice standards and adherence to parts sales manager's recommendations. INDICATION: M25.551 COMPARISON: None. IMPRESSION: Findings are as described above. at 1704 Reported and signed by: Marck Hughes MD CC: Wilber Allen MD Technologist: Dre BritoRT(R) CTDI:DLP: Trnscrpt: 06/12/2021 (1704) [email or web address] [facility] NAME: DINO RENEE [address] PHYS: BRIMA.01 - Wilber Allen MD : 1960 AGE: 60 SEX: M [place], [place] [address] LOC: MIMI PHONE #: [phone] EXAM DATE: 06/12/2021 STATUS: REG CLI FAX #: [phone] RAD #: D/C DT PAGE 1 Signed Report Patient Name: DINO RENEE Unit No: [id number]: CPT CODE: [id number] CT LOWER EXTRM W/[place] [address] (Continued) Orig Print D/T: S: 06/12/2021 (1707) [facility] NAME: DINO RENEE [address] [facility] PHYS: BRIMA.Viviana - Wilber Allen MD : 1960 AGE: 60 SEX: M [place] [id number] LOC: MIMI PHONE #: [phone] EXAM DATE: 06/12/2021 STATUS: REG CLI FAX #: [phone] RAD #: D/C DT PAGE 2 Signed ReportECU HEALTH CHOWAN HOSPITALEEWZG5591-34-70 08:36:00 Test Item Value Reference Range Interpretation Comments Magnesium Lvl (test code = Magnesium 2.3 1.8-2.4 Lvl) [facility]2018-08-28 08:36:00 Test Item Value Reference Range Interpretation Comments Phosphorus (test code = Phosphorus) 3.8 2.5-4.5 [facility]2018-08-28 08:36:00 Test Item Value Reference Range Interpretation Comments eGFR (test code = eGFR) 106 [facility]2018-08-28 08:36:00 Test Item Value Reference Range Interpretation Comments Potassium Lvl (test code = Potassium 3.7 3.5-5.1 Lvl) [facility]2018-08-28 08:36:00 Test Item Value Reference Range Interpretation Comments Sodium Lvl (test code = Sodium Lvl) 140 135-145 [facility]2018-08-28 08:36:00 Test Item Value Reference Range Interpretation Comments Creatinine Lvl (test code = Creatinine 0.65 0.50-1.40 Lvl) [facility] IYJZZ8812-25-31 08:36:00 Test Item Value Reference Range Interpretation Comments Chloride Lvl (test code = Chloride Lvl) 108 95-109 [facility]2018-08-28 08:36:00 Test Item Value Reference Range Interpretation Comments Calcium Lvl (test code = Calcium Lvl) 8.1 8.5-10.5 [facility]2018-08-28 08:36:00 Test Item Value Reference Range Interpretation Comments CO2 (test code = CO2) 24 24-32 [facility]2018-08-28 08:36:00 Test Item Value Reference Range Interpretation Comments BUN (test code = BUN) 12 7-22 [facility]2018-08-28 08:36:00 Test Item Value Reference Range Interpretation Comments Glucose Lvl (test code = Glucose Lvl) 116 70-99 [facility]2018-08-28 08:36:00 Test Item Value Reference Range Interpretation Comments AGAP (test code = AGAP) 11.7 10.0-20.0 [facility] AustinXsiuzrlUFWLVJQRBU1306-71-38 08:36:00 Test Item Value Reference Range Interpretation Comments Basophils # (test code = Basophils #) 0.1 <=0.2 [facility] AustinWucjgztFWLMZQYBLE6558-48-72 08:36:00 Test Item Value Reference Range Interpretation Comments Eosinophils # (test code = Eosinophils 0.2 <=0.5 #) [facility] AustinGwzohsxLXBFYKSTMR0367-10-03 08:36:00 Test Item Value Reference Range Interpretation Comments Monocytes # (test code = Monocytes #) 0.5 <=0.8 [facility] AustinZnpyjsvPIIVVZVXIF2439-91-34 08:36:00 Test Item Value Reference Range Interpretation Comments Lymphocytes # (test code = Lymphocytes 1.4 1.0-5.5 #) [facility] AustinPxschruXINHORPAGW5339-03-82 08:36:00 Test Item Value Reference Range Interpretation Comments Neutrophils # (test code = Neutrophils 4.3 1.5-8.1 #) [facility] AustinRdaeqdsUATHIMQDGT4677-47-75 08:36:00 Test Item Value Reference Range Interpretation Comments Monocytes (test code = Monocytes) 7.7 2.0-12.0 [place] 481608-08-28 08:36:00 Test Item Value Reference Range Interpretation Comments Lymphocytes (test code = Lymphocytes) 21.2 20.0-40.0 [facility] AustinFcvspoyVVGQGHLCDB7199-50-40 08:36:00 Test Item Value Reference Range Interpretation Comments Eosinophils (test code = Eosinophils) 2.4 <=4.0 [facility] AustinAakfyrmOOHSTHEOVL8713-01-24 08:36:00 Test Item Value Reference Range Interpretation Comments Basophils (test code = Basophils) 1.3 <=1.0 [facility] AustinQhrfnwgBUNPENVNTS7293-51-73 08:36:00 Test Item Value Reference Range Interpretation Comments Segs (test code = Segs) 67.4 45.0-75.0 [facility] AustinLybciqkMSMHRZGESA5636-55-85 08:36:00 Test Item Value Reference Range Interpretation Comments Hct (test code = Hct) 41.7 42.0-54.0 [facility] AustinMwavfjsXREFJWYUXK9758-56-53 08:36:00 Test Item Value Reference Range Interpretation Comments MCV (test code = MCV) 91.7 80.0-94.0 [facility] AustinPizngxhAGAJSIREXG6686-51-99 08:36:00 Test Item Value Reference Range Interpretation Comments WBC (test code = WBC) 6.4 3.7-10.4 [facility] AustinIbrmljdUDSJMPFFHG1943-65-95 08:36:00 Test Item Value Reference Range Interpretation Comments MCHC (test code = MCHC) 35.6 32.0-36.0 [facility] AustinDcgwdpnEWWNCSJQXY3940-65-61 08:36:00 Test Item Value Reference Range Interpretation Comments RBC (test code = RBC) 4.54 4.70-6.10 [facility] AustinNzkhcllOHQUFHBQRT5885-09-58 08:36:00 Test Item Value Reference Range Interpretation Comments Hgb (test code = Hgb) 14.8 14.0-18.0 [facility] AustinYkcexbmXHCSUUXVHO6183-11-65 08:36:00 Test Item Value Reference Range Interpretation Comments MPV (test code = MPV) 8.1 7.4-10.4 [facility] AustinUdrlckgQPURTBMZSV0901-44-77 08:36:00 Test Item Value Reference Range Interpretation Comments Platelet (test code = Platelet) 134 133-450 [facility] AustinZipumdvDQYTUTANDA3408-33-71 08:36:00 Test Item Value Reference Range Interpretation Comments RDW (test code = RDW) 13.9 11.5-14.5 [facility] AustinKegreeuVBKOUZUQCN4279-72-77 08:36:00 Test Item Value Reference Range Interpretation Comments MCH (test code = MCH) 32.6 pg 27.0-31.0 [facility]2018-08-28 08:36:00 Test Item Value Reference Range Interpretation Comments Ca Ion WB (test code = Ca Ion WB) 1.08 1.05-1.25 [facility]2018-08-28 08:36:00 Test Item Value Reference Range Interpretation Comments Ca Norm WB (test code = Ca Norm WB) 1.10 1.05-1.25 [facility]PjrkcahUBDINLTYOWUR1235-51-66 05:01:00 Test Item Value Reference Range Interpretation Comments Potassium Lvl (test code = Potassium 4.0 3.5-5.1 Lvl) [facility] HospitalTxkalnnFTRMWTXLNGGP1824-20-68 05:01:00 Test Item Value Reference Range Interpretation Comments Chloride Lvl (test code = Chloride Lvl) 110 95-109 [facility] HospitalHakeladKWYKHGRDMEPI0230-53-49 05:01:00 Test Item Value Reference Range Interpretation Comments BUN (test code = BUN) 17 7-22 [facility] HospitalXejbykxQJRNMYVCKHTP3988-67-61 05:01:00 Test Item Value Reference Range Interpretation Comments Sodium Lvl (test code = Sodium Lvl) 142 135-145 [facility] HospitalTakzkyaOKBQGVXLYZUM8867-91-34 05:01:00 Test Item Value Reference Range Interpretation Comments Glucose Lvl (test code = Glucose Lvl) 97 70-99 [facility] HospitalFaugqqqJNXWHUDOFKTO0292-08-46 05:01:00 Test Item Value Reference Range Interpretation Comments Creatinine Lvl (test code = Creatinine 0.82 0.50-1.40 Lvl) [facility] HospitalZtwqdvkBGZKOCANARBA9288-40-60 05:01:00 Test Item Value Reference Range Interpretation Comments CO2 (test code = CO2) 22 24-32 [facility] HospitalNacfgpkIXXEHKZSUNJT0829-85-11 05:01:00 Test Item Value Reference Range Interpretation Comments Calcium Lvl (test code = Calcium Lvl) 8.0 8.5-10.5 [facility] AustinExvxnxzZBZRTKUCSM6406-50-45 05:01:00 Test Item Value Reference Range Interpretation Comments Lymphocytes (test code = Lymphocytes) 23.2 20.0-40.0 [facility] AustinYbzqinpOAKGCSWJKL7513-72-53 05:01:00 Test Item Value Reference Range Interpretation Comments Segs (test code = Segs) 64.9 45.0-75.0 [facility] AustinVekmiygEJBWNYHWFN1093-06-17 05:01:00 Test Item Value Reference Range Interpretation Comments Eosinophils # (test code = Eosinophils 0.2 <=0.5 #) [facility] AustinEoentbfMBUWISAFDQ8502-75-05 05:01:00 Test Item Value Reference Range Interpretation Comments Basophils # (test code = Basophils #) 0.1 <=0.2 [facility] AustinUnsmdcyCZWJKYHEEM4479-80-26 05:01:00 Test Item Value Reference Range Interpretation Comments Basophils (test code = Basophils) 1.3 <=1.0 [facility] AustinRcqjhzxWGFHCQBVKG2093-99-00 05:01:00 Test Item Value Reference Range Interpretation Comments Neutrophils # (test code = Neutrophils 4.0 1.5-8.1 #) [facility] AustinVnpqwfvGGTOOFZKBC5853-89-08 05:01:00 Test Item Value Reference Range Interpretation Comments Monocytes (test code = Monocytes) 8.0 2.0-12.0 [facility] AustinNnpkpohYWPSUIYJIH3294-71-09 05:01:00 Test Item Value Reference Range Interpretation Comments Eosinophils (test code = Eosinophils) 2.6 <=4.0 [facility] AustinSmifnebADJCPWEQKP3667-52-63 05:01:00 Test Item Value Reference Range Interpretation Comments Lymphocytes # (test code = Lymphocytes 1.4 1.0-5.5 #) [facility] AustinOxznjenQKERXHFYYH0734-84-84 05:01:00 Test Item Value Reference Range Interpretation Comments Monocytes # (test code = Monocytes #) 0.5 <=0.8 [facility] AustinPipnvlyOXCJQLCQVF3038-37-36 05:01:00 Test Item Value Reference Range Interpretation Comments Platelet (test code = Platelet) 128 133-450 [facility] AustinSnannqpXFFVPHXRTM1802-15-98 05:01:00 Test Item Value Reference Range Interpretation Comments MPV (test code = MPV) 8.3 7.4-10.4 [facility] AustinBtwrpfwDAJSNJFVJA3674-90-60 05:01:00 Test Item Value Reference Range Interpretation Comments RDW (test code = RDW) 14.2 11.5-14.5 [facility] AustinRwaigwnDMRCJPRDZE7316-47-10 05:01:00 Test Item Value Reference Range Interpretation Comments MCV (test code = MCV) 93.2 80.0-94.0 [facility] AustinOjhxwumQTGXLQJOPL2570-57-64 05:01:00 Test Item Value Reference Range Interpretation Comments MCH (test code = MCH) 32.3 pg 27.0-31.0 [facility] AustinJzfdknzBSAUWFOTEO0483-81-93 05:01:00 Test Item Value Reference Range Interpretation Comments Hgb (test code = Hgb) 14.6 14.0-18.0 [facility] AustinSbimxclLWOPNYIAPX4818-78-78 05:01:00 Test Item Value Reference Range Interpretation Comments Hct (test code = Hct) 42.2 42.0-54.0 [facility] AustinSdookywNMSWVWFMZK0231-76-90 05:01:00 Test Item Value Reference Range Interpretation Comments MCHC (test code = MCHC) 34.7 32.0-36.0 [facility] AustinQjzguckWSTWXPYVIV8719-88-15 05:01:00 Test Item Value Reference Range Interpretation Comments RBC (test code = RBC) 4.53 4.70-6.10 [facility] AustinKywgzwoQIDZFZGKAQ0264-10-41 05:01:00 Test Item Value Reference Range Interpretation Comments WBC (test code = WBC) 6.1 3.7-10.4 [facility] AustinCauvkjaLIFJNBPSMD6166-08-19 05:01:00 Test Item Value Reference Range Interpretation Comments PT (test code = PT) 12.3 s 12.0-14.7 [facility] AustinLmjblzyWRWRWTJBJN6035-96-84 05:01:00 Test Item Value Reference Range Interpretation Comments PTT (test code = PTT) 26.7 s 22.9-35.8 [facility] AustinObnjtboCVORZHGCSD1359-75-14 05:01:00 Test Item Value Reference Range Interpretation Comments INR (test code = INR) 0.91 1 0.85-1.17 [facility] AustinDcovbkcXGAOHXXNML1587-34-39 05:01:00 Test Item Value Reference Range Interpretation Comments Ly30 (test code = Ly30) 3.2 <=7.5 [facility] AustinOpmodlpWWGSSZBPEJ0676-62-80 05:01:00 Test Item Value Reference Range Interpretation Comments Coag Index (test code = Coag Index) 1.0 1 <=3.0 [facility] AustinKxotmmzWJWSSARQCV2693-49-10 05:01:00 Test Item Value Reference Range Interpretation Comments Max Amp (test code = Max Amp) 55.2 mm 50.0-70.0 [facility] AustinBxyeiljBYDDBDLXGT4973-11-27 05:01:00 Test Item Value Reference Range Interpretation Comments G-value (test code = G-value) 6.2 4.5-11.0 [facility] AustinKdmiopiDYLYYOUULD4919-16-39 05:01:00 Test Item Value Reference Range Interpretation Comments R-time (test code = R-time) 3.8 min 5.0-10.0 [facility] AustinQvemkfjXGBMUMSXHJ0308-16-46 05:01:00 Test Item Value Reference Range Interpretation Comments K-time (test code = K-time) 1.7 min 1.0-3.0 [facility] AustinPcutqcsZVUPPFSLCZ0090-50-58 05:01:00 Test Item Value Reference Range Interpretation Comments Angle (test code = Angle) 67.9 degrees 53.0-72.0 [facility] AustinFejucvtPRITCAANGR5183-64-65 05:01:00 Test Item Value Reference Range Interpretation Comments TEG Data (test code = See Note (07/07/18 12:01 TEG Data) AM) [facility] AustinPuckzasOCIJUGLWNB4515-79-00 05:01:00 Test Item Value Reference Range Interpretation Comments TEG Interp (test Thrombelastograph results code = TEG show shortened value of R. Interp) This finding is suggestive of enzymatic hypercoagulation. CPT:48635 [facility] HospitalMaterialiseROID DDMBWNP0912-38-16 05:01:00 Test Item Value Reference Range Interpretation Comments Ca Norm WB (test code = Ca Norm WB) 1.06 1.05-1.25 [facility] YIZTFJE2475-80-21 05:01:00 Test Item Value Reference Range Interpretation Comments Ca Ion WB (test code = Ca Ion WB) 1.07 1.05-1.25 [facility] EJIFBFH9247-85-98 05:01:00 Test Item Value Reference Range Interpretation Comments ABO/Rh (test code = ABO/Rh) A POS [facility] TempoIQ CTWOAHN7184-29-34 05:01:00 Test Item Value Reference Range Interpretation Comments Antibody Scrn (test Negative (07/07/18 code = Antibody Scrn) 12:01 AM) [facility] SouthBitX [id number] 05:01:00 Test Item Value Reference Range Interpretation Comments Phosphorus (test code = Phosphorus) 2.6 2.5-4.5 [facility] [id number] 05:01:00 Test Item Value Reference Range Interpretation Comments Magnesium Lvl (test code = Magnesium 2.2 1.8-2.4 Lvl) [facility]PadsdovJZETJIHHUGRX0515-64-51 05:01:00 Test Item Value Reference Range Interpretation Comments AGAP (test code = AGAP) 14.0 10.0-20.0 [place] [id number] 05:01:00 Test Item Value Reference Range Interpretation Comments eGFR (test code = eGFR) 97 [facility]2018-08-26 20:40:00 Test Item Value Reference Range Interpretation Comments Lactic Acid Lvl (test code = Lactic 1.9 0.5-2.2 Acid Lvl) [facility]2018-08-26 05:31:00 Test Item Value Reference Range Interpretation Comments Magnesium Lvl (test code = Magnesium 2.1 1.8-2.4 Lvl) [facility]2018-08-26 05:31:00 Test Item Value Reference Range Interpretation Comments Phosphorus (test code = Phosphorus) 2.8 2.5-4.5 [place] 379618-08-26 05:31:00 Test Item Value Reference Range Interpretation Comments A/G Ratio (test code = A/G Ratio) 0.7 1 0.7-1.6 [place] 379618-08-26 05:31:00 Test Item Value Reference Range Interpretation Comments Globulin (test code = Globulin) 3.5 2.7-4.2 [place] 379618-08-26 05:31:00 Test Item Value Reference Range Interpretation Comments Bili Total (test code = Bili Total) 0.7 0.2-1.3 [place] 379618-08-26 05:31:00 Test Item Value Reference Range Interpretation Comments Bili Indirect (test code = Bili 0.5 <=1.0 Indirect) [place] 379618-08-26 05:31:00 Test Item Value Reference Range Interpretation Comments Total Protein (test code = Total 5.9 6.4-8.4 Protein) [facility]2018-08-26 05:31:00 Test Item Value Reference Range Interpretation Comments ALT (test code = ALT) 95 <=65 [place] 379618-08-26 05:31:00 Test Item Value Reference Range Interpretation Comments Albumin Lvl (test code = Albumin Lvl) 2.4 3.5-5.0 [facility]2018-08-26 05:31:00 Test Item Value Reference Range Interpretation Comments Alk Phos (test code = Alk Phos) 102 39-136 [facility]2018-08-26 05:31:00 Test Item Value Reference Range Interpretation Comments AST (test code = AST) 87 <=37 [facility]2018-08-26 05:31:00 Test Item Value Reference Range Interpretation Comments Bili Direct (test code = Bili Direct) 0.2 <=0.3 [facility] HospitalJnkpfuoKANLBUAADACH5416-26-29 05:31:00 Test Item Value Reference Range Interpretation Comments AGAP (test code = AGAP) 11.7 10.0-20.0 [facility] HospitalDvakaczVVIXBEEKYDKW2188-93-52 05:31:00 Test Item Value Reference Range Interpretation Comments eGFR (test code = eGFR) 105 [facility] HospitalRwjiollBUZIRUYFZHCK2161-99-19 05:31:00 Test Item Value Reference Range Interpretation Comments BUN (test code = BUN) 17 7-22 [facility] HospitalKrvpontAVTJLPXPUJIZ1459-33-18 05:31:00 Test Item Value Reference Range Interpretation Comments Creatinine Lvl (test code = Creatinine 0.68 0.50-1.40 Lvl) [facility] HospitalYgbieihMNKEMBJMNJZI7066-38-78 05:31:00 Test Item Value Reference Range Interpretation Comments Potassium Lvl (test code = Potassium 3.7 3.5-5.1 Lvl) [facility] HospitalQayisadUDNVEGIAGTQO4773-32-77 05:31:00 Test Item Value Reference Range Interpretation Comments Sodium Lvl (test code = Sodium Lvl) 141 135-145 [facility] HospitalVhljwqkDWYIDZNWFMGW3569-81-89 05:31:00 Test Item Value Reference Range Interpretation Comments CO2 (test code = CO2) 25 24-32 [facility] HospitalPicqiazTVFABUTELMXX8862-61-13 05:31:00 Test Item Value Reference Range Interpretation Comments Glucose Lvl (test code = Glucose Lvl) 125 70-99 [facility] HospitalVakomgmPFLHHKQIKCHO3359-80-66 05:31:00 Test Item Value Reference Range Interpretation Comments Chloride Lvl (test code = Chloride Lvl) 108 95-109 [facility] HospitalZygrvlqRGIVABZGVEMA9573-42-01 05:31:00 Test Item Value Reference Range Interpretation Comments Calcium Lvl (test code = Calcium Lvl) 7.8 8.5-10.5 [facility] AustinEdvzoofVKTYXJZXCA9832-01-52 05:31:00 Test Item Value Reference Range Interpretation Comments RDW (test code = RDW) 13.7 11.5-14.5 [facility] AustinYwctybmLECTILRGZI0470-41-34 05:31:00 Test Item Value Reference Range Interpretation Comments MCHC (test code = MCHC) 35.5 32.0-36.0 [facility] AustinMlnvvraJLKCMDYDFW3140-03-62 05:31:00 Test Item Value Reference Range Interpretation Comments Platelet (test code = Platelet) 127 133-450 [facility] AustinGeycvapNMHYQKUUNT9398-83-64 05:31:00 Test Item Value Reference Range Interpretation Comments MPV (test code = MPV) 8.2 7.4-10.4 [facility] AustinFhhcfawSGTSDTHDVJ0178-27-65 05:31:00 Test Item Value Reference Range Interpretation Comments WBC (test code = WBC) 6.3 3.7-10.4 [facility] AustinAmzzrqfDXLCOGEARS2655-74-23 05:31:00 Test Item Value Reference Range Interpretation Comments RBC (test code = RBC) 4.61 4.70-6.10 [facility] AustinQctbytiFSBEPLWRAB6115-25-17 05:31:00 Test Item Value Reference Range Interpretation Comments Hgb (test code = Hgb) 14.9 14.0-18.0 [facility] AustinVyoegdfJSREBCEHMZ1699-98-67 05:31:00 Test Item Value Reference Range Interpretation Comments Hct (test code = Hct) 42.1 42.0-54.0 [facility] AustinKxjxgalMGJKDLEEFC5817-12-97 05:31:00 Test Item Value Reference Range Interpretation Comments MCV (test code = MCV) 91.2 80.0-94.0 [facility] AustinUpbxziiNMNJPYTSRX2809-71-04 05:31:00 Test Item Value Reference Range Interpretation Comments MCH (test code = MCH) 32.4 pg 27.0-31.0 [facility] AustinKjrrhnmJWLBCDCKPV8963-83-48 05:31:00 Test Item Value Reference Range Interpretation Comments Lymphocytes # (test code = Lymphocytes 1.2 1.0-5.5 #) [facility] AustinRuoyzpcNJEKRMDTWC8570-91-99 05:31:00 Test Item Value Reference Range Interpretation Comments Monocytes # (test code = Monocytes #) 0.6 <=0.8 [facility] AustinGxarreeSXJSXDYFZN8026-40-02 05:31:00 Test Item Value Reference Range Interpretation Comments Eosinophils # (test code = Eosinophils 0.2 <=0.5 #) [facility] AustinWksxtjhJVASHECFSY5579-51-12 05:31:00 Test Item Value Reference Range Interpretation Comments Basophils # (test code = Basophils #) 0.1 <=0.2 [facility] AustinHaobflyKUQNYSFOBJ0694-54-79 05:31:00 Test Item Value Reference Range Interpretation Comments Eosinophils (test code = Eosinophils) 2.4 <=4.0 [facility] AustinGnvzrkmZPHMCPOXID0609-33-93 05:31:00 Test Item Value Reference Range Interpretation Comments Neutrophils # (test code = Neutrophils 4.3 1.5-8.1 #) [facility] AustinUgffcteUCBJVQXIJZ1083-93-32 05:31:00 Test Item Value Reference Range Interpretation Comments Basophils (test code = Basophils) 1.0 <=1.0 [facility] AustinJnrbpmuJRIGHDZHOY4567-17-03 05:31:00 Test Item Value Reference Range Interpretation Comments Segs (test code = Segs) 68.6 45.0-75.0 [facility] AustinUvvtvkxRYMZPDOIRB3809-49-38 05:31:00 Test Item Value Reference Range Interpretation Comments Lymphocytes (test code = Lymphocytes) 18.8 20.0-40.0 [facility] AustinOztezunWQUTHTOGFS7837-67-49 05:31:00 Test Item Value Reference Range Interpretation Comments Monocytes (test code = Monocytes) 9.2 2.0-12.0 [facility]2018-08-26 05:31:00 Test Item Value Reference Range Interpretation Comments Ca Norm WB (test code = Ca Norm WB) 1.10 1.05-1.25 [facility]2018-08-26 05:31:00 Test Item Value Reference Range Interpretation Comments Ca Ion WB (test code = Ca Ion WB) 1.10 1.05-1.25 [facility]MntmxzjAHQUQG3965-29-79 20:41:00 Test Item Value Reference Range Interpretation Comments LDL (Calculated) (test code = LDL 76 (Calculated)) [facility]vineTjjdntwZVLUIW8586-18-48 20:41:00 Test Item Value Reference Range Interpretation Comments VLDL (test code = VLDL) 25 1 [facility] HospitalAxojyuxEYNMJN8895-09-58 20:41:00 Test Item Value Reference Range Interpretation Comments Trig (test code = Trig) 123 [facility] SouthVfuydvaZFAKPF4753-39-93 20:41:00 Test Item Value Reference Range Interpretation Comments HDL (test code = HDL) 52 [facility] HospitalVvccapbBAJHZC9148-58-71 20:41:00 Test Item Value Reference Range Interpretation Comments Chol (test code = Chol) 153 [facility] SouthFefjzplOYTVMW2525-50-29 20:41:00 Test Item Value Reference Range Interpretation Comments CHD Risk (test code = CHD Risk) 2.94 1 4.00-7.30 [facility] SGXAOSPRG9857-18-78 20:41:00 Test Item Value Reference Range Interpretation Comments Hgb A1C (test code = Hgb A1C) 5.0 [facility] [employer] IQOUL6217-95-58 20:40:00 Test Item Value Reference Range Interpretation Comments Bili Direct (test code = Bili Direct) 0.2 <=0.3 [facility] [employer] YZBWD7883-42-80 20:40:00 Test Item Value Reference Range Interpretation Comments Alk Phos (test code = Alk Phos) 109 39-136 [facility] [employer] [id number] 20:40:00 Test Item Value Reference Range Interpretation Comments Globulin (test code = Globulin) 3.8 2.7-4.2 [facility]2018-08-24 20:40:00 Test Item Value Reference Range Interpretation Comments Bili Total (test code = Bili Total) 0.9 0.2-1.3 [facility]2018-08-24 20:40:00 Test Item Value Reference Range Interpretation Comments A/G Ratio (test code = A/G Ratio) 0.7 1 0.7-1.6 [facility] [employer] [id number] 20:40:00 Test Item Value Reference Range Interpretation Comments ALT (test code = ALT) 112 <=65 [facility] [employer] [id number] 20:40:00 Test Item Value Reference Range Interpretation Comments Total Protein (test code = Total 6.5 6.4-8.4 Protein) [facility] [employer] [id number] 20:40:00 Test Item Value Reference Range Interpretation Comments Albumin Lvl (test code = Albumin Lvl) 2.7 3.5-5.0 [facility]2018-08-24 20:40:00 Test Item Value Reference Range Interpretation Comments AST (test code = AST) 105 <=37 [facility] KAZDX0818-16-45 20:40:00 Test Item Value Reference Range Interpretation Comments B/C Ratio (test code = B/C Ratio) 18 1 6-25 [facility] YATQVV0406-52-01 20:28:00 Test Item Value Reference Range Interpretation Comments U Cocaine Scr (test Negative *NA*(07/04/18 code = U Cocaine Scr) 3:28 PM) [facility] DNENOW2761-20-59 20:28:00 Test Item Value Reference Range Interpretation Comments U Benzodiaz Scr (test Negative *NA*(07/04/18 code = U Benzodiaz Scr) 3:28 PM) [facility] OMBTBN5719-56-25 20:28:00 Test Item Value Reference Range Interpretation Comments U Sendy Scr (test code Negative *NA*(07/04/18 = U Sendy Scr) 3:28 PM) [facility] WGECCS2043-33-37 20:28:00 Test Item Value Reference Range Interpretation Comments U Amph Scr (test code Negative *NA*(07/04/18 = U Amph Scr) 3:28 PM) [facility] RRQMWS2483-23-87 20:28:00 Test Item Value Reference Range Interpretation Comments U Phencyclidine Scr (test Negative code = U Phencyclidine *NA*(07/04/18 3:28 Scr) PM) [facility] [id number] 20:28:00 Test Item Value Reference Range Interpretation Comments U Cannab Scr (test Negative *NA*(07/04/18 code = U Cannab Scr) 3:28 PM) [facility] QDRVWX3687-90-21 20:28:00 Test Item Value Reference Range Interpretation Comments UDS Note (test code = See Note (07/04/18 3:28 UDS Note) PM) [facility] [id number] 20:28:00 Test Item Value Reference Range Interpretation Comments U Opiate Scr (test Negative *NA*(07/04/18 code = U Opiate Scr) 3:28 PM) [facility] [id number] 20:28:00 Test Item Value Reference Range Interpretation Comments UA RBC (test code = UA None Seen (07/04/18 3:28 <=2 RBC) PM) [facility] [id number] 20:28:00 Test Item Value Reference Range Interpretation Comments UA WBC (test code = UA None Seen (07/04/18 3:28 WBC) PM) [facility] [id number] 20:28:00 Test Item Value Reference Range Interpretation Comments UA Sq Epi (test code = None Seen (07/04/18 3:28 UA Sq Epi) PM) [facility] IZKFV8793-38-49 20:28:00 Test Item Value Reference Range Interpretation Comments UA Bacteria (test code = None Seen (07/04/18 UA Bacteria) 3:28 PM) [facility] [id number] 20:28:00 Test Item Value Reference Range Interpretation Comments UA Bili (test code = Negative *NA*(07/04/18 UA Bili) 3:28 PM) [facility] [id number] 20:28:00 Test Item Value Reference Range Interpretation Comments UA Ketones (test code Negative *NA*(07/04/18 = UA Ketones) 3:28 PM) [facility] [id number] 20:28:00 Test Item Value Reference Range Interpretation Comments UA Spec Grav (test code = UA Spec 1.025 1 Grav) [facility] [id number] 20:28:00 Test Item Value Reference Range Interpretation Comments UA Turbidity (test code = Clear (07/04/18 3:28 UA Turbidity) PM) [facility] [id number] 20:28:00 Test Item Value Reference Range Interpretation Comments UA Urobilinogen (test code = UA 1.0 0.1-1.0 Urobilinogen) [facility] [id number] 20:28:00 Test Item Value Reference Range Interpretation Comments UA Glucose (test code Negative (07/04/18 3:28 = UA Glucose) PM) [facility] [id number] 20:28:00 Test Item Value Reference Range Interpretation Comments UA Protein (test code = UA >=300 mg/dL Protein) [facility] [id number] 20:28:00 Test Item Value Reference Range Interpretation Comments UA pH (test code = UA pH) 6.0 1 5.0-8.0 [facility] AND [id number] 20:28:00 Test Item Value Reference Range Interpretation Comments UA Leuk Est (test Negative (07/04/18 3:28 code = UA Leuk Est) PM) [facility] AND [id number] 20:28:00 Test Item Value Reference Range Interpretation Comments UA Nitrite (test code Negative (07/04/18 3:28 = UA Nitrite) PM) [facility] AND [id number] 20:28:00 Test Item Value Reference Range Interpretation Comments UA Blood (test code = Moderate *ABN*(07/04/18 UA Blood) 3:28 PM) [facility] AND [id number] 20:28:00 Test Item Value Reference Range Interpretation Comments UA Color (test code = Yellow *NA*(07/04/18 UA Color) 3:28 PM) [facility] [id number] 19:44:00 Test Item Value Reference Range Interpretation Comments POC Creatinine (test code = POC 0.7 0.5-1.4 Creatinine) [facility]CARDIAC [id number] 19:29:00 Test Item Value Reference Range Interpretation Comments Troponin-I (test code = Troponin-I) no gt <=0.40 [facility] HospitalCARAC [id number] 19:29:00 Test Item Value Reference Range Interpretation Comments Total CK (test code = Total CK) 86 12-191 [facility] HospitalBdmgmnvDQIGORKSOV5087-14-92 19:29:00 Test Item Value Reference Range Interpretation Comments Tot Cell Ct (test code = Tot Cell Ct) 100 1 [facility] HospitalKdpwtyoEGMIJBRVRD0924-83-12 19:29:00 Test Item Value Reference Range Interpretation Comments Plt Morph (test code = Normal (07/04/18 2:29 Plt Morph) PM) [facility] HospitalJfxcuyhIMWZRHFWTA5043-27-20 19:29:00 Test Item Value Reference Range Interpretation Comments RBC Morph (test code = Normal (07/04/18 2:29 RBC Morph) PM) [facility] HospitalUwrzfzrCAZCIOAMMN0981-25-74 19:29:00 Test Item Value Reference Range Interpretation Comments Atypical Lymphs (test code = Atypical 0.0 Lymphs) [facility] HospitalBfocohyTJICXJRFYP6231-35-77 19:29:00 Test Item Value Reference Range Interpretation Comments Bands (test code = Bands) 0.0 <=11.0 [facility] AustinRawzmduSLTSJKZRMT3373-12-01 19:29:00 Test Item Value Reference Range Interpretation Comments PTT (test code = PTT) 20.4 s 22.9-35.8 [facility] AustinPsjvjxfDVTLZBNPVW2707-42-13 19:29:00 Test Item Value Reference Range Interpretation Comments INR (test code = INR) 0.93 1 0.85-1.17 [facility] AustinUrhonbqVHLYACVGBR1795-00-42 19:29:00 Test Item Value Reference Range Interpretation Comments PT (test code = PT) 12.5 s 12.0-14.7 [facility] PARCENTESIS W/XYEDKEJ2344-08-09 14:43:00ULTRASOUND DIRECTED PARACENTESIS:CLINICAL HISTORY: Ascites. Cirrhosis.Written and [...] with removal of 4 Lof fluid.US ABDOMEN VVMZOTD-CXVZI6109-52-26 14:41:12ULTRASOUND ABDOMEN LIMITED:CLINICAL HISTORY: Ascites. Images were obtained over a quadrants of the abdomen for evaluation forascites volume. There is a moderate to large volume ascites.IMPRESSION:1. Moderate volume ascites. ABD PARCENTESIS W/EHPGGRJ4663-38-55 12:25:33Information: AscitesUltrasound guided paracentesisFollowing verbal and written [...] Ultrasound-guided paracentesis as described above.SP ABD PARCENTESIS W/BIOQYBW4386-18-68 11:52:16Information: CirrhosisShunt paracentesisFollowing verbal and written consent [...] condition.IMPRESSION:1. Ultrasound-guided paracentesis as described above.[place] JIM ABD/PELV [id number] 11:44:42EXAM: Abdominal Sonography with Hepatic Elastography.TECHNIQUE: Serial multiplanar grayscale imagingwith/without Dopplerinterrogation including color flow imaging and Doppler waveformanalysis. Hepaticelastography measurements were made utilizing Piehole Epiq 7 ultrasound unit (C5-1 multifrequency transducer).HISTORY: [...] 1410 gm (normal = 115 - 360 gm). Pancreas: The pancreatic head and body are imaged [...] hepatomegaly.5. Contracted gallbladder with cholelithiasis. No evidence ofbiliarytract dilatation. Liver Fibrosis Staging: Metavir ScoreStage Range m/s Range kPa DescriptorF = 0 0.81 - 1.22 2.0 - 4.5 NormalF0 - F1 1.22 - 1.37 4.5 - 5.7 Normal - MildF2 - F3 1.37 - 2.00 5.7 - 12.0 Mild - ModerateF3 - F4 2.00 - 21.0+ 12.0 - 2.64+ Moderate - SevereUS ABDOMEN [id number] 11:19:24EXAM: Abdominal Sonography with Hepatic Elastography.TECHNIQUE: Serial multiplanar grayscale imagingwith/without Dopplerinterrogation including color flow imaging and Doppler waveformanalysis. Hepaticelastography measurements were made utilizing LabPixiesq 7 ultrasound unit (C5-1 multifrequency tr ansducer).HISTORY: [...] spleen is approximately 4 times the upper limitsof normal forsize.4. Mild hepatomegaly.5. Contracted gallbladder with cholelithiasis. No evidence ofbiliarytract dilatation. Liver Fibrosis Staging: Metavir ScoreStage Range m/s Range kPa DescriptorF = 0 0.81 - 1.22 2.0 - 4.5 NormalF0 - F1 1.22 - 1.37 4.5 - 5.7 Normal - MildF2 - F3 1.37 - 2.00 5.7 - 12.0 Mild - ModerateF3 - F4 2.00 - 21.0+ 12.0 - 2.64+ Moderate - SevereSP ABD PARCENTESIS W/[id number] 10:03:19 Information: AscitesUltrasound guided paracentesisFollowing verbal and written consent [...] suitein stable and satisfactory conditionIMPRESSION:1. Ultrasound-guided paracentesis. Consult Notes Date/Time Note Provider Source 2023-06-25 [id number]:15:00[facility] 13:15:00 Order(s): CONSULT ADULT PHYSICAL THERAPY Patient agreeable to working with physical therapy. Patient met supine.Recommend nursing staff utilize RW to safely assist patient with mobility out of the bed or chair.PHYSICAL THERAPY EVALUATIONConsult received, chart reviewed and evaluation complete this date. Patient is referred to PT for evaluation and treatment. Patient is a 62 year old male who presents to hospital for Malignant ascites [R18.0] . Decompensated HCV cirrhosis MELD Na-7 R hepatic hydrothoraxSOB requiring h1Mzjagp of chronic diseaseHTNHX of hepatic encephalopathyDischarge Recommendations: Therapy Needs and Potential:Patient would benefit from continued physical therapy services to address: decline in bed mobility decline in transfers decline w/c mobility decreased strength decreased endurance decreased coordinationPatient demonstrates good potential to improve and meet therapy goals with further physical therapy services.Patient appears motivated to improve their functional mobility and return to their previous level of function.Challenges to Home Transition: increased risk of fallsdecreased caregiver availabilitydecreased safety awarenessenvironmental barriersEquipment recommendations:Patient has or access to necessary equipment, rolling walker, and wheelchairCurrent Functional Status and/or Treatment: AM-PAC 6 Clicks (Raw Score 0=Dependent, 24=Independent; Low function Raw Score 0= Dependent, 32=Independent):Raw Score - Basic Mobility : 8T-Scale Score - Basic Mobility : 22.61 Bed Mobility:Rolling: SupervisionSupine-sit: Moderate AssistanceSitting balance FairSit to supine: Minimal Assistance Provided 40% verbal/ visual cues for proper hand/ foot placement. Patient and tires and fatigues easily. Transfers: Attempted to transfer to chair, patient refused due to pain of left knee and left foot. Ambulation: defer due to patient is non- ambulatory , wc bound for year. WC propulsion and management : To be determineTherapeutic exercise: Patient refused to participate today in any out of bed activities or exercise. He initially states that he is difficult and unable to confirm if he will cooperate with therapy. Clinician explained the role of PT in his care , to determine his function , make recommendations for equipment and how to care for him from staff. Patient refused to participate today but states he will try tomorrow. Functional Outcome Measures: (Values within the past 12 hours) NT- refused. After session, patient semi reclined in bed. Call button provided. Communicated with THERESE Gordon PLAN OF CARE: While in the hospital, PT will follow patient at least 3 times per week,once or twice a day, per patient's tolerance and needs.See below for complete details. Admit Date: 06/23/2023 Hospital Diagnosis:Malignant ascites [R18.0] PT Diagnosis: Difficulty walking, Weakness, and PainWeight Bearing Precaution: WBAT General Precautions: PPE used:Gloves, General, Fall,IV Bracing/Cast present or required:N/APMH: Past Medical History: Diagnosis Date Carotid artery stenosis Cirrhosis CVA (cerebral vascular accident) 2018 HCV (hepatitis C virus) HTN (hypertension) Unspecified cirrhosis of liver PSH: Past Surgical History: Procedure Laterality Date CEREBRAL ANGIOGRAM 2018 in [facility] COLONOSCOPY N/A 02/02/2021 Surgeon: Mannie King MD; Location: End[facility] ([facility]) OR Location ESOPHAGOGASTRODUODENOSCOPY N/A 02/01/2021 Surgeon: Mannie King MD; Location: End[facility] ([facility]) OR Location ESOPHAGOGASTRODUODENOSCOPY N/A 02/16/2022 Surgeon: Sarah Kim MD; Location: ENDOSCOPY ([facility]) OR LOCATION ESOPHAGOGASTRODUODENOSCOPY Upper 04/13/2022 Surgeon: Denys Bustillos MD; Location[facility] LOC[facility] ESOPHAGOGASTRODUODENOSCOPY N/A 05/10/2022 Surgeon: Babar Bang MD; Location: ENDOSCOPY ([facility]) OR LOCATION ESOPHAGOGASTRODUODENOSCOPY N/A 06/11/2022 Surgeon: Mannie King MD; Location: ENDOSCOPY ([facility]) OR LOCATION PUSH ENDOSCOPY ([facility]) N/A 02/02/2021 Surgeon: Mannie King MD; Location: Endoscopy ([facility]) OR Location UMBILICAL HERNIORRHAPHY N/A 10/01/2022 Surgeon: Praveena Mae MD; Location: [facility] OR LOC[facility] Prior Living Situation: lives with son and his family and in a house, no steps to enter. DME: Rolling Walker, Wheel Chair Prior level of Mobility: requires assistance with transfers using RW, uses w/c primarily Suspected ischemic or hemorraghic stroke:NoSubjective: C/O pain on left knee, both shoulders, Rigjht hip/ kneePatient/Family Goals: To feel better and be able to transfer Independently to Patient/Family verbalizes understanding of condition: Yes PAIN: -Pain Description: aching and constant-Pain Location: right shoulder, left shoulder, right leg, and left leg-Pain rating before treatment: 8, After treatment: does not rate-Pain Management: Reports taking pain meds, Pain Meds given, Decreased movement aides in some pain reduction, and Repositioning ProvidedCOMMUNICATIONPrimary Language: Kiswahili Able to Verbalize needs: Yes Vision:glasses Hearing:good; no issues reported ORIENTATION/COGNITION:Oriented to: person, place, date/time, and situation Awake: Yes Alert: Yes Dizzy: No Follows Commands: Yes 1-Step Yes Multi-Step No Inconsistent: No NEUROLOGICALLight Touch: within functional limits bilateral LEHeel to abdul: unableTone: wfl BALANCE:Sitting: Static: Fair+ Dynamic: FairStanding: Static: NT Dynamic: NTRANGE OF MOTION: within functional limits bilateral LE STRENGTH: 3+/5 (F+), bilateral LE ENDURANCE: Poor+, Nasal canula SKIN INTEGRITY: not intact, please see nurses notes for details. PROBLEM LIST: Decline in bed mobility, Decline in transfers, Decreased strength, Decreased endurance, Decreased balance, decline in wheel chair mobiliity, Safety awareness deficits, Pain, and Decreased CoordinationASSESSMENT: Patient is a 62 year old male seen secondary to the above listed diagnosis. Patient would benefit from continued PT to address the above listed deficits to maximize independence and safety with functional mobility.Rehabilitation Potential: fair Goals: The following goals are to maximize independence and safety with functional mobility to eventually return to prior living situation and prior functional status. Upon discharge, patient and/or family will demonstrate the followin. Rolling: IndependentSupine-sit: IndependentSitting balance Excellent Sit to supine: Independent2. sit-stand: IndependentStand to sit: Independent using Rolling WalkerStand pivot transfer: Independent3 Independent with wheelchair propulsion and management of brakes.4. Demonstrate or verbalize understanding of home exercise program in order to continue with their rehab on their own.Treatment Plan: Therapeutic exercise, Transfer training, Balance training, Bed mobility training, Equipment needs assessment, Safety education, patient/caregiver education, Wheelchair mobility training, Pain management, and Neuromuscular Re-EducationPATIENT EDUCATION: Patient provided with preferred teaching of verbal information and demonstration on role of PT, plan of care, Dc plans. Shows readiness to learn. Verbal instruction and Demonstration teaching provided. Individual is able to read and verbalizes understanding of teaching provided and accurately returns demonstration of skill.Total Time Tx Codes in Minutes: 23 minTotal Treatment Time in Minutes: 30 minJason Odell PT, DPT [facility] [id number] arnnFM8441-44-11F53:59:56Consult noteTXT1.2.840.379818.1.13.104.2.7.2. 579387|[id number] for patient xgbe36806-0Zcypegi noteLNUT[address] BwsvIdrcqqqdgMuawspmmvHLJE6761596245B IQAQOVJPPUDFNDGDEACZH1792-55-11U79:59 :561.2.840.143693.1.72.3.15|1.2.840.1 70577.1.13.104.2.7.2.727879_[id number] 6 2023-06-25 0377-35-06O75:15:00Associated Winsome Barrett PT [facility] 13:15:00 Order(s): CONSULT ADULT PHYSICAL [place]APY [place] [id number] adtcNL7330-41-11A00:12:02Consult noteTXT1.2.840.922800.1.13.104.2.7.2. 970748|[id number] for patient codo55703-6Qjuurlp [id number] Kurtz PT[address]Ri[id number] OYEUNHJLPQZUOSQYCCKXR0646-87-27U42:12 :021.2.840.437158.1.72.3.15|1.2.840.1 [id number] 2 History and Physical Notes Date/Time Note Provider Source 2023-06-23 23:17:11 1939-11-91Q02:17:11Formatting of this note [facility] is different from the original.Wilberto Team Admit H&PPCP: [place] of Service: 06/23/2023 CHIEF COMPLAINT: Malignant ascites HISTORY OF PRESENT ILLNESSDino Renee is a 62 year old male with a PMH of HCV cirrhosis and ascities ,hepatic hydrothorax,SBP,HTN,GOUT,DVT LUE (march 2023), and recurrent right-sided pleural effusions s/p multiple para- and thoracentesis who presents from [facility] for worsening SOB.Patient stated couple of weeks ago he started getting SOB and last night it got really bad he had to go to the ER.patient also feels his stomach is more sore.Patient sob is constant through the day with no relieving factors,and he cannot lay flat in his bed.Patient reports compliance with his medication at home. Patient is SOB with difficulty speaking (because of SOB) while obtaining history. Patient denies any nausea,vomiting,fevers,or chills. Of note, patient had a GI appointment tmrw.Of note, Patient had multiple thoracocentesis and pleurodesis was considered. Given rapid accumulation of fluid that would prevent adequate coaptation of the visceral and parietal pleura.Indwelling pleural catheter was deemed not possible because of poor home support.Patient recent Hospital course:05/12/23MrJeannie Renee is a 62 year old male with PMH HCV cirrhosis c/b scites, hepatic hydrothorax, HE, SBP, who presented to ED with recurrence of abdominal distention and SOB for 1 week. He was hospitalized for similar presentation in March 2023 with hospital course c/b DEMETRIO - patient was to restart lasix and furosemide outpatient after d/c but did not follow up or restart diuretics. Initial paracentesis ruled out SBP recurrence. Patient restarted diuretics with optimization. Underwent therapeutic paracentesis (5L) and thoracentesis (1.7L) by IR with some symptomatic improvement. In the ED:Hb 9,8Cr 0.9Lipase 313CT abdomen :1.Opacification of the right hemithorax with predominantly fluid.2. Moderate ascites in abdomen pelvis. 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 Punctate nonobstructing left renal stones.4. No bowel distention.CXR : Findings consistent with interval worsening of large right pleuraleffusion.Past medical history: Past Medical History: Diagnosis Date Carotid artery stenosis Cirrhosis CVA (cerebral vascular accident) 2017 HCV (hepatitis C virus) HTN (hypertension) Unspecified cirrhosis of liver Past surgical history:Past Surgical History: Procedure Laterality Date CEREBRAL ANGIOGRAM 2018 in [facility] COLONOSCOPY N/A 02/02/2021 Surgeon: Mannie King MD; Location: Endoscopy ([facility]) OR Location ESOPHAGOGASTRODUODENOSCOPY N/A 02/01/2021 Surgeon: Mannie King MD; Location: Endoscopy ([facility]) OR Location ESOPHAGOGASTRODUODENOSCOPY N/A 02/16/2022 Surgeon: Sarah Kim MD; Location: ENDOSCOPY ([facility]) OR LOCATION ESOPHAGOGASTRODUODENOSCOPY Upper 04/13/2022 Surgeon: Denys Bustillos MD; Location[facility] LOCATION ESOPHAGOGASTRODUODENOSCOPY N/A 05/10/2022 Surgeon: Babar Bang MD; Location: ENDOSCOPY ([facility]) OR LOCATION ESOPHAGOGASTRODUODENOSCOPY N/A 06/11/2022 Surgeon: Mannie King MD; Location: ENDOSCOPY ([facility]) OR LOCATION PUSH ENDOSCOPY ([facility]) N/A 02/02/2021 Surgeon: Mannie King MD; Location: Endoscopy ([facility]) OR Location UMBILICAL HERNIORRHAPHY N/A 10/01/2022 Surgeon: Praveena Mae MD; Location: [facility]ATION .Social history: reports that he has quit smoking. His smoking use included cigarettes. He smoked an average of 1 pack per day. He has been exposed to tobacco smoke. He has never used smokeless tobacco. He reports that he does not currently use alcohol. He reports that he does not currently use drugs after having used the following drugs: Amphetamines and Cocaine.Family history: family history includes Diabetes in his mother; Stroke in his father.Allergies: No Known AllergiesReview of Systems:12 point ROS negative except per HPIPHYSICAL EXAMINATIONVitals: 06/23/23 2318 06/23/23 2327 06/24/23 0000 06/24/23 0143 BP: (!) 173/101 (!) 173/94 (!) 171/89 (!) 186/116 Pulse: 78 80 76 82 Resp: 29 30 24 18 Temp: 36.5 ?C (97.7 ?F) TempSrc: SpO2: 97% 97% 96% 97% Weight: Height: General: alert and oriented x 4 (person, place, date/time, and situation); no apparent distressLungs: left side lung sounds present. Right sided lung sounds decreased.Mild wheezingCardio: regular rate Abdomen: soft, distendedLABS - reviewedMELD 3.0: 7 at 06/23/2023 9:40 PMMELD-Na: 7 at 06/23/2023 9:40 PMCalculated from:Serum Creatinine: 0.90 mg/dL (Using min of 1 mg/dL) at 06/23/2023 9:40 PMSerum Sodium: 142 mmol/L (Using max of 137 mmol/L) at 06/23/2023 9:40 PMTotal Bilirubin: 0.5 mg/dL (Using min of 1 mg/dL) at 06/23/2023 9:40 PMSerum Albumin: 3.4 g/dL at 06/23/2023 9:40 PMINR(ratio): 1.1 at 06/23/2023 9:40 PMAge at listing (hypothetical): 62 yearsSex: Male at 06/23/2023 9:40 PM IMAGING - reviewed, CHART REVIEW: Reviewed ASSESSMENT/Jenifer Thelma is a 62 year old male with PMH as listed above, admitted to the hospital with:Decompensated HCV cirrhosis MELD Na-7 R hepatic hydrothoraxSOB requiring u9Wdxdah of chronic diseaseHTNHX of hepatic encephalopathyPatient is presenting with SOB requiring oxygen and he is not on home o2. He has decompensated cirrhosis with ascites and large right hepatic hydrothorax.Patient states he has been complaints with his diuretics. Will give one dose of IV lasix and can restart oral tmrw.Will continue with cipro and assess bedside US pocket for possible paracentesis.Consider IR VS pulmonology for thoracocentesis.no concern of hepatic encephalopathy at the moment.Mild wheezing is heard on auscultation.- admit to [facility]- c/w cipro- c/w rifaxmin- IV lasix 40- pantoprazole- aldactone - amlodipine- consider pulmonology VS IR consult- bedside US- lactulose 45 TID titrate as necessary - duoneAreli GOLDEN (March 2023)Patient complaint with with AC and will continue.-c/w apixaban Pain ImprovedTylenolProphylaxis: DVT- apixabanStress Ulcer: pantoprazoleCode Status: addressed: fullBowel Regimen: Jason Eduardo M.D. 06/23/2023 Department Of Internal Medicine, PGY-2 ssociated attestation - Cecil Kirby MD - 06/24/2023 4:31 AM CDT I personally examined the patient on 06/23/[address] Eduardo's resident note as written. I actively participated in the decision-making process. Please see the resident's note for additional details. Cecil Kirby, [facility] of Internal Faculty Instructor Rrpwxglqz91353-7Jqbnegq and physical [id number], Owen Li-Young1.2.840.981706.1.13.104.2.7.2.8369 93UgfLeqbJx-LeeypCI0077-42-14T04:31:46Hist ory and physical noteTXT1.2.840.963741.1.13.104.2.7.2.13890 9|[id number] for patient nmfd84346-3Tpyawjv and physical noteLNUT[address] Ym[id number] FDVHXOPHSSLJHQHB1734-17-15A34:31:461.2.840 .610139.1.72.3.15|1.2.840.995524.1.13.104. [id number] Procedure Notes Date/Time Note Provider Source 2023-06-24 05:11:12 1218-17-73X54:11:12Procedure(s): IM-INTERNAL [facility] PARACENTESISFormatting of this MEDICINE note might be different from the original.PARACENTESIS PROCEDURE NOTEDate of Service: 06/24/2023Faculty: Dr. Cecil Guzman Boxing Instructor: Dr. Berny EduardoIndication/Diagnosis: AscitesConsent source: selfConsent type: indications/complications discussed with patient/legal guardian; written consent obtainedPreProcedure Verification Completed yes, Site Marking Completed yes, Time Out Completed yes.Aseptic technique: ChlorhexidineAnesthesia: localAnesthesia drugs used: 2% lidocaineInstrument(s) type: Lumbar TrayVolume removed (in cc): 2.5 LFluid characteristics: clearSterile dressing: yesNarrative: Description: After a final discussion of the indication, technique, risks, and benefits of paracentesis, all questions were answered and the patient agreed to proceed. The patient was placed in the supine position with the head of bed elevated 30 degrees. The lower abdomen was imaged via ultrasound. A position for placement of the paracentesis catheter was selected in the right lower quadrant. The skin was prepped with Chlorhexidine. With first a 25 ga, 1.6 cm needle, followed by a 22 ga, 5.1 cm needle, 1% lidocaine hydrochloride was placed subcutaneously to achieve excellent local anesthesia. A 14 ga x 5.1 cm needle with an 18 cm catheter was inserted until fluid could be withdrawn. We then jorge l off 2.5 L by gravity drainage into a plastic container. The catheter was removed when drainage ceased. Patient Tolerance: The vital signs remained stable throughout the procedure, and the patient suffered minimal discomfort. Complications: noneFaculty was not present but was readily available. Pretty Munoz, IBISGY-1 | Department of Internal Medicine ssociated attestation - Cecil Kirby MD - 06/24/2023 5:26 AM CDT I was not immediately present for the procedure, but I was immediately available for consultation and assistance. I actively participated in the decision making process and agreed with the medical necessity of the procedure. I have reviewed and agree with Dr. Darin Munoz's note.Cecil Kirby, [facility] of Internal Faculty Instructor Jtpyaojej38952-7Lgjjtorck [id number], Owen Li-Young1.2.840.614278.1.13.104.2 .7.2.269543KhvNlcbWw-CegarFY6978- 08-T05:26:29Procedure noteTXT1.2.840.133470.1.13.104.2. 7.2.947534|[id number] for patient feqh89054-9Mugfmrocu noteLNIM-INTERNAL MEDICINE-INTERNAL MEDICINE[address]vdGalvestonGalvestonTXTX[address] 832LUNXXSGOXRFNMMONXOQHNA9252-56- 14T05:26:291.2.840.364375.1.72.3. 15|1.2.840.999311.1.13.104.2.7.2. [id number]
[2023-08-20] MEDS ORDERED: ONDANSETRON 4 MG/2 ML VIAL ONE (13:26)
[2023-08-20] MEDS ORDERED: MORPHINE 4 MG/ML SYR ONE (13:26)
[2023-08-20 13:45] LABS: Absolute Lymphocytes (CBC) 0.6 K/uL (0.7-4.9); Lymphocytes % 16.6 % (15.3-44.8); MCV 96.6 fL (80-100); MPV 6.8 fL (7.6-11.3); Platelets 119 thou/uL (152-406); Protime INR 1.05; RBC Red Blood Cell Count 2.38 M/uL (4.33-5.43)
[2023-08-20 14:02] LABS: Albumin 2.9 g/dL (3.4-5.0); Bilirubin Direct 0.1 mg/dL (0-0.2); Bilirubin Indirect, Calculated 0.3 mg/dL (0.2-0.8); Bilirubin Total 0.4 mg/dL (0.2-1.0); Potassium 4.3 mEq/L (3.5-5.1); Protein, Total 6.7 g/dL (6.4-8.2); Troponin High Sensitivity 10.3 pg/mL (<58.9)
--- NOTE | 2023-08-20 15:02 | RAD REPORT ---
EXAM DESCRIPTION: [place] Single View08/20/2023 1:59 pm CLINICAL HISTORY: DYSPNEA COMPARISON: Chest Single View dated 11/23/2021; Chest Single View dated 02/22/2021; Chest Single View dated 01/31/2021; Chest Single View dated 12/17/2020 TECHNIQUE: Portable AP view of the chest. FINDINGS: No pneumothorax. Complete opacification of the right hemithorax again seen, may reflect a large effusion that could be chronic. Trachea remains midline. Hazy left mid lung airspace opacificat ion. The cardiomediastinal contours are unremarkable. IMPRESSION: Persistent right hemithorax complete opacification, suggestive of an underlying large ef fusion. Hazy left mid lung airspace opacification, may reflect mild edema or early airspace disease.
--- NOTE | 2023-08-20 16:44 | EDPHYS ---
Physician Documentation [facility] Name: Blaise Renee Age: 62 yrs Sex: Male : 1960 Arrival Date: 08/20/2023 Time: 12:54 Bed 16 Private MD: ED Physician Raf Dior HPI: 08/20 13:21 This 62 yrs old Male presents to ER via Wheelchair with complaints of Shortness Of rt Breath. 13:21 Patient with history of cirrhosis presents to the ED with dyspnea. He reports that his rt abdomen is swollen and that he needs a paracentesis. He reports pain to his abdomen. Denies cough, chest pain. Denies other acute complaints at this time, symptoms are moderate severity, no other aggravating alleviating factors.. Historical: - Allergies: 13:06 No Known Allergies; kc6 - PMHx: 13:06 Cirrhosis; Hepatitis; Hypertension; kc6 - PSHx: 13:06 None; kc6 - Immunization history:: Adult Immunizations up to date. - Social history:: Smoking status: Patient denies any tobacco usage or history of. - Family history:: not pertinent. ROS: 13:21 Constitutional: Negative for fever, chills, and weight loss, Cardiovascular: Negative rt for chest pain, palpitations, and edema, MS/Extremity: Negative for injury and deformity, Skin: Negative for injury, rash, and discoloration, Neuro: Negative for headache, weakness, numbness, tingling, and seizure, Psych: Negative for depression, anxiety, suicide ideation, homicidal ideation, and hallucinations, 13:21 Respiratory: Positive for shortness of breath, Negative for cough, 13:21 Abdomen/GI: Positive for Distention, pain, Exam: 13:21 Constitutional: This is a well developed, well nourished patient who is awake, alert, rt and in no acute distress. Head/Face: Normocephalic, atraumatic. Chest/axilla: Normal chest wall appearance and motion. Nontender with no deformity. No lesions are appreciated. Cardiovascular: Regular rate and rhythm with a normal S1 and S2. No gallops, murmurs, or rubs. Normal PMI, no JVD. No pulse deficits. Respiratory: Lungs have equal breath sounds bilaterally, clear to auscultation and percussion. No rales, rhonchi or wheezes noted. No increased work of breathing, no retractions or nasal flaring. Skin: Warm, dry with normal turgor. Normal color with no rashes, no lesions, and no evidence of cellulitis. MS/ Extremity: Pulses equal, no cyanosis. Neurovascular intact. Full, normal range of motion. Neuro: Awake and alert, GCS 15, oriented to person, place, time, and situation. Cranial nerves II-XII grossly intact. Motor strength 5/5 in all extremities. Sensory grossly intact. Cerebellar exam normal. Normal gait. Psych: Awake, alert, with orientation to person, place and time. Behavior, mood, and affect are within normal limits. 13:21 ECG was reviewed by the Attending Physician. 13:21 Abdomen/GI: Tense ascites noted, tenderness diffusely, no overlying skin changes, Vital Signs: 13:05 BP 225 / 93; Pulse 74; Resp 20 S; Temp 97.9(O); Pulse Ox 96% on R/A; Weight 86.18 kg kc6 (R); Height 5 ft. 7 in. (R); 13:33 BP 157 / 92; Pulse 77; Resp 26 S; Pulse Ox 97% on R/A; kc6 13:50 BP 178 / 77; Pulse 81; Resp 26 S; Pulse Ox 95% on R/A; kc6 14:55 BP 151 / 75; Pulse 74; Resp 18 S; Pulse Ox 96% on R/A; kc6 17:16 BP 153 / 75; Pulse 60; Resp 15 S; Pulse Ox 98% on 2 lpm NC; kc6 19:15 BP 147 / 80; Pulse 83; Resp 24; Pulse Ox 97% on 2 lpm NC; jw7 13:05 Body Mass Index 29.76 (86.18 kg, 170.18 cm) kc6 Procedures: 15:33 Paracentesis: The risks and benefits of the procedure were discussed with the patient rt or guardian in detail, aseptic technique was employed throughout the procedure, the catheter was placed in the right lower quadrant, appoximately 5 liters of fluid was removed, the fluid was normal, the patient tolerated the procedure well, the patient did not experience any apparent complications. MDM: 12:58 Patient medically screened. rt 15:33 Differential diagnosis: Ascites, pleural effusion, pneumonia, pneumothorax. Data rt reviewed: vital signs, nurses notes, lab test result(s), EKG, radiologic studies. Consideration of Admission/Observation Patient was admitted/placed on observation. Management of patient was discussed with the following: Hospitalist: Agrees to admit. I considered the following discharge prescriptions or medication management in the emergency department Medications were administered in the Emergency Department. See MAR. Test considered but Not performed: CT: History of ascites, CT scan of the abdomen not indicated. Care significantly affected by the following chronic conditions: Cirrhosis. Counseling: I had a detailed discussion with the patient and/or guardian regarding the historical points, exam findings, and any diagnostic results supporting the discharge/admit diagnosis, lab results, radiology results, the need for further work-up and treatment in the hospital. Response to treatment: the patient's symptoms have markedly improved after treatment. 08/20 13:04 Order name: Basic Metabolic Panel; Complete Time: 14:03 rt 08/20 13:04 Order name: CBC with Diff; Complete Time: 14:03 rt 08/20 13:04 Order name: LFT's; Complete Time: 14:03 rt 08/20 13:04 Order name: Magnesium; Complete Time: 14:03 rt 08/20 13:04 Order name: NT PRO-BNP; Complete Time: 14:03 rt 08/20 13:04 Order name: PT-INR; Complete Time: 14:03 rt 08/20 13:04 Order name: Troponin HS; Complete Time: 14:03 rt 08/20 17:31 Order name: Urinalysis w/ reflexes EDMS 08/20 17:36 Order name: Urinalysis w/ reflexes EDMS 08/20 17:36 Order name: Basic Metabolic Panel EDMS 08/20 17:36 Order name: Basic Metabolic Panel EDMS 08/20 17:36 Order name: Basic Metabolic Panel EDMS 08/20 17:36 Order name: Basic Metabolic Panel EDMS 08/20 17:36 Order name: CBC with Automated Diff EDMS 08/20 17:36 Order name: CBC with Automated Diff EDMS 08/20 17:36 Order name: CBC with Automated Diff EDMS 08/20 17:36 Order name: CBC with Automated Diff EDMS 08/20 17:36 Order name: Lipid Profile EDMS 08/20 17:36 Order name: Lipid Profile EDMS 08/20 17:36 Order name: Lipid Profile EDMS 08/20 17:36 Order name: Lipid Profile EDMS 08/20 17:36 Order name: Magnesium EDMS 08/20 17:36 Order name: Magnesium EDMS 08/20 17:36 Order name: Magnesium EDMS 08/20 17:36 Order name: Magnesium EDMS 08/20 17:36 Order name: Phosphorus EDMS 08/20 17:36 Order name: Phosphorus EDMS 08/20 17:36 Order name: Phosphorus EDMS 08/20 17:36 Order name: Phosphorus EDMS 08/20 13:04 Order name: XRAY Chest (1 view); Complete Time: 15:12 rt 08/20 13:04 Order name: EKG; Complete Time: 13:05 rt 08/20 13:04 Order name: Cardiac monitoring; Complete Time: 13:17 rt 08/20 13:04 Order name: EKG - Nurse/Tech; Complete Time: 13:17 rt 08/20 13:04 Order name: IV Saline Lock; Complete Time: 13:32 rt 08/20 13:04 Order name: Labs collected and sent; Complete Time: 13:32 rt 08/20 13:04 Order name: O2 Per Protocol; Complete Time: 13:10 rt 08/20 13:04 Order name: O2 Sat Monitoring; Complete Time: 13:10 rt EC:21 Rate is 74 beats/min. Rhythm is regular, Normal Sinus Rhythm with No ectopy. QRS Dumas rt is Normal. LA interval is normal. QRS interval is normal. QT interval is normal. No Q waves. Clinical impression: Normal ECG. Administered Medications: 13:33 Drug: morphine IVP or IV 4 mg IVP once over 4 mins Route: IVP; Infused Over: 4 mins; kc6 Site: right forearm; 14:00 Follow up: Response: No adverse reaction; Pain is decreased; RASS: Alert and Calm (0) 6 13:33 Drug: Ondansetron IVP 4 mg IVP once; over 2 minutes Route: IVP; Site: right forearm; kc6 14:00 Follow up: Response: No adverse reaction kc6 Disposition Summary: 08/20/23 16:43 Hospitalization Ordered Notes: Hospitalization Status: Inpatient Admission rt Provider: Dangelo Gotti rt Location: Telemetry/[facility] (Inpatient) rt Condition: Stable rt Problem: an acute exacerbation rt Symptoms: have improved rt Bed/Room Type: Standard rt Room Assignment: 428(08/20/23 18:40) dw Diagnosis - Pleural effusion in other conditions classified elsewhere rt - Other ascites rt Forms: - Medication Reconciliation Form rt - SBAR form rt - Leadership Thank You Letter rt Signatures: Dispatcher [employer] Delicia Pfeiffer RN RN dw Shaylee Reed RN RN kc6 Raf Dior MD MD rt Corrections: (The following items were deleted from the chart) 18:40 16:43 rt dw
--- NOTE | 2023-08-20 16:44 | ER ---
Nurse's Notes [facility] Name: Blaise Renee Age: 62 yrs Sex: Male : 1960 Arrival Date: 08/20/2023 Time: 12:54 Bed 16 Private MD: Diagnosis: Pleural effusion in other conditions classified elsewhere;Other ascites Presentation: 08/20 13:05 Chief complaint: Patient's son or daughter states: shortness of breath that has been kc6 gradually getting worse x2 weeks. Coronavirus screen: At this time, the client does not indicate any symptoms associated with coronavirus-19. Ebola Screen: No symptoms or risks identified at this time. Initial Sepsis Screen: Does the patient meet any 2 criteria? No. Patient's initial sepsis screen is negative. Does the patient have a suspected source of infection? No. Patient's initial sepsis screen is negative. Risk Assessment: Do you want to hurt yourself or someone else? Patient reports no desire to harm self or others. Onset of symptoms was August 20, 2023. 13:05 Method Of Arrival: Wheelchair kc6 13:05 Acuity: TRICIA 2 kc6 Triage Assessment: 13:05 General: Appears in no apparent distress. uncomfortable, Behavior is calm, cooperative, kc6 appropriate for age. Pain: Denies pain. EENT: No signs and/or symptoms were reported regarding the EENT system. Neuro: Level of Consciousness is awake, alert, obeys commands, Oriented to person, place, time, situation, Appropriate for age. Cardiovascular: Heart tones S1 S2 present Capillary refill < 3 seconds. Respiratory: Reports shortness of breath at rest on exertion Airway is patent Trachea midline Respiratory effort is even, with nasal flaring, with retractions, Respiratory pattern is symmetrical, tachypnea Breath sounds with wheezes bilaterally. Onset: The symptoms/episode began/occurred x2 weeks, the patient has moderate shortness of breath. GI: Abdomen is round distended, noted to have ascites, Bowel sounds present X 4 quads. Abd is non tender X 4 quads Abd is rigid X 4 quads. Reports bloody stool, Patient currently denies diarrhea, nausea, vomiting. : No signs and/or symptoms were reported regarding the genitourinary system. Derm: No signs and/or symptoms reported regarding the dermatologic system. Skin is intact, is healthy with good turgor, Skin is dry, Skin is pale, Skin temperature is warm. Musculoskeletal: No signs and/or symptoms reported regarding the musculoskeletal system. Circulation, motion, and sensation intact. Capillary refill < 3 seconds, Range of motion: intact in all extremities. Historical: - Allergies: 13:06 No Known Allergies; kc6 - PMHx: 13:06 Cirrhosis; Hepatitis; Hypertension; kc6 - PSHx: 13:06 None; kc6 - Immunization history:: Adult Immunizations up to date. - Social history:: Smoking status: Patient denies any tobacco usage or history of. - Family history:: not pertinent. Screenin:09 [facility] ED Fall Risk Assessment (Adult) History of falling in the last 3 months, kc6 including since admission No falls in past 3 months (0 pts) Confusion or Disorientation No (0 pts) Intoxicated or Sedated No (0 pts) Impaired Gait Yes (1 pt) Mobility Assist Device Used Yes (1 pt) Altered Elimination No (0 pt) Score/Fall Risk Level 0 - 2 = Low Risk. Abuse screen: Denies threats or abuse. Denies injuries from another. Nutritional screening: No deficits noted. Tuberculosis screening: No symptoms or risk factors identified. Assessment: 13:09 Reassessment: please see triage assessment. kc6 13:50 Reassessment: assisted Dr. Dior at bedside with paracentesis. kc6 14:09 Reassessment: emptied approximately 5,000 mL of yellow drainage from paracentesis. kc6 Reassessment: Patient appears in no apparent distress at this time. No changes from previously documented assessment. Patient and/or family updated on plan of care and expected duration. Pain level reassessed. Patient is alert, oriented x 3, equal unlabored respirations, skin warm/dry/pink. 15:09 Reassessment: Patient appears in no apparent distress at this time. No changes from kc6 previously documented assessment. Patient and/or family updated on plan of care and expected duration. Pain level reassessed. Patient is alert, oriented x 3, equal unlabored respirations, skin warm/dry/pink. 16:09 Reassessment: Patient appears in no apparent distress at this time. No changes from kc6 previously documented assessment. Patient and/or family updated on plan of care and expected duration. Pain level reassessed. Patient is alert, oriented x 3, equal unlabored respirations, skin warm/dry/pink. 17:09 Reassessment: Patient appears in no apparent distress at this time. No changes from [facility] previously documented assessment. Patient and/or family updated on plan of care and expected duration. Pain level reassessed. Patient is alert, oriented x 3, equal unlabored respirations, skin warm/dry/pink. 18:33 Reassessment: Patient appears in no apparent distress at this time. No changes from [facility] previously documented assessment. Patient and/or family updated on plan of care and expected duration. Pain level reassessed. Patient is alert, oriented x 3, equal unlabored respirations, skin warm/dry/pink. PLEASE SEE [facility] FOR FURTHER CHARTING. 18:33 Cardiovascular: Rhythm is sinus rhythm. [facility] 18:47 Reassessment: ATTEMPTED TO CALL REPORT TO 4TH FLOOR. MAGDALENA STATES SHE WAS TOLD BY HER [facility] INDUSTRIAL CLEANING TECHNICIAN THAT REPORT WOULD BE GIVEN AFTER SHIFT CHANGE. 20:03 Reassessment: Patient appears in no apparent distress at this time. No changes from [facility] previously documented assessment. Patient and/or family updated on plan of care and expected duration. Pain level reassessed. Patient is alert, oriented x 3, equal unlabored respirations, skin warm/dry/pink. Vital Signs: 13:05 BP 225 / 93; Pulse 74; Resp 20 S; Temp 97.9(O); Pulse Ox 96% on R/A; Weight 86.18 kg kc6 (R); Height 5 ft. 7 in. (R); 13:33 BP 157 / 92; Pulse 77; Resp 26 S; Pulse Ox 97% on R/A; kc6 13:50 BP 178 / 77; Pulse 81; Resp 26 S; Pulse Ox 95% on R/A; kc6 14:55 BP 151 / 75; Pulse 74; Resp 18 S; Pulse Ox 96% on R/A; kc6 17:16 BP 153 / 75; Pulse 60; Resp 15 S; Pulse Ox 98% on 2 lpm NC; kc6 19:15 BP 147 / 80; Pulse 83; Resp 24; Pulse Ox 97% on 2 lpm NC; jw7 13:05 Body Mass Index 29.76 (86.18 kg, 170.18 cm) [facility] ED Course: 12:56 Patient arrived in ED. [facility] 12:58 Raf Dior MD is Attending Physician. rt 13:05 Shaylee Reed RN is Primary Nurse. kc6 13:05 Arm band placed on. kc6 13:06 Triage completed. kc6 13:09 Patient has correct armband on for positive identification. Placed in gown. Bed in low kc6 position. Call light in reach. Side rails up X2. Adult w/ patient. Client placed on continuous cardiac and pulse oximetry monitoring. NIBP monitoring applied. fox raiser on. 13:32 Inserted saline lock: 22 gauge in right forearm, using aseptic technique. Blood kc6 collected. Patient maintains SpO2 saturation greater than 95% on room air. 14:01 XRAY Chest (1 view) In Process Unspecified. EDMS 16:43 Dangelo Gotti MD is Hospitalizing Provider. rt 18:33 No provider procedures requiring assistance completed. Patient admitted, IV remains in kc6 place. 20:03 Provided Education on: need for admit. jw7 Administered Medications: 13:33 Drug: morphine IVP or IV 4 mg IVP once over 4 mins Route: IVP; Infused Over: 4 mins; kc6 Site: right forearm; 14:00 Follow up: Response: No adverse reaction; Pain is decreased; RASS: Alert and Calm (0) kc6 13:33 Drug: Ondansetron IVP 4 mg IVP once; over 2 minutes Route: IVP; Site: right forearm; kc6 14:00 Follow up: Response: No adverse reaction kc6 Medication: 18:33 VIS not applicable for this client. kc6 Outcome: 16:43 Decision to Hospitalize by Provider. rt 18:33 Admitted to ER Hold. Please see [facility] for further documentation. kc6 18:33 Condition: improved 18:33 Instructed on the need for admit, 20:32 Patient left the ED. jw7 Signatures: [facility]patcher [facility] Margarita Nelson RN RN jw7 Shaylee Reed RN RN kc6 Raf Dior MD MD rt Corrections: (The following items were deleted from the chart) 13:07 13:05 BP 225 / 93; Resp 20bpm; Spontaneous; Temp 97.9F Oral; 86.18 kg Reported; Height kc6 5 ft. 7 in. Reported; BMI: 29.7; kc6
--- NOTE | 2023-08-20 17:14 | P.HP ---
Certification for Inpatient With expected LOS: <2 Midnights Patient will require the following post-hospital care: None Practitioner: I am a practitioner with admitting privileges, knowledge of patient current condition, hospital course, and medical plan of care. Services: Services provided to patient in accordance with Admission requirements found in Title 42 Section 412.3 of the Code of Federal Regulations Patient History Date of Service: 08/20/23 History of Present Illness: Blaise Azul 62-year-old male with history of cirrhosis of liver, hepatitis, hypertension. Patient presented to the ER with dyspnea. Patient reports that his abdomen is swollen and he need paracentesis. Patient admit abdominal pain, denies cough, chest pain, discomfort or palpitation.. Patient refused fever chills nausea and vomiting. ER course; vital signs blood pressure 225/93, pulse 74, respiration 20, oxygen saturation 96% on room air, temperature 97.9. Abdominal paracentesis done in the ER removal of approximately 5 L of fluid. Patient tolerated the procedure well. Laboratory findings significant for WBC 3.30, hemoglobin 7.7, hematocrit 23.0, platelet 6119, BUN 36 creatinine 1.89, GFR 96, calcium 8.3 glucose 117, and AST 40, BNP 866, albumin 2.9. Chest x-ray shows persistent the right hemithorax complete opacification, suggestive of underlying large effusion and hazy left midlung airspace opacification, may reflect mild edema or early airspace disease. Planning to admit the patient with a diagnosis of pleural effusion, ascites. And hypertension. Allergies No Known Allergies Allergy (Verified 11/23/21 21:46) Home Medications: Amlodipine [Norvasc*] 1 tab PO DAILY 07/13/21 Atorvastatin Calcium 20 mg PO BEDTIME 07/13/21 Clopidogrel Bisulfate [Plavix] 75 mg PO DAILY 07/13/21 Spironolactone 100 mg PO DAILY 07/13/21 lisinopriL [Lisinopril] 40 mg PO DAILY 07/13/21 Furosemide 40 mg PO BID #60 tablet 11/26/21 Hydrocodone 5/APAP 325 [[place] 5/325] 1 tab PO Q6H PRN #30 tab 11/26/21 - Past Medical/Surgical History Diabetic: No -: CVA (11/11/2017) -: Fall(05/27/19) -: Hep C cirrhosis -: HTN -: Carotid artery stenosis -: R hip surgery Psychosocial/ Personal History: Patient is disabled, lives with a son - Family History Father -: Stroke - Social History Smoking Status: Never smoker Alcohol use: No CD- Drugs: No Caffeine use: No Review of Systems 10-point ROS is otherwise unremarkable General: Weakness ENT: Other (Hard of hearing on the right ear) Respiratory: Shortness of Breath (Shortness of breath at rest) Cardiovascular: Edema (1+ edema on the lower extremity), Other (Dyspnea without exertion) Gastrointestinal: Distention (Ascites) Genitourinary: Unremarkable Musculoskeletal: Atrophy Integumentary: Other (Dry skin) Neurological: Weakness (Generalized weakness) Physical Examination - Physical Exam General: Alert, Oriented x3, Cachectic, Mild distress HEENT: Atraumatic, Normocephalic, PERRLA Neck: Supple, 2+ carotid pulse no bruit, JVD not distended Respiratory: Clear to auscultation bilaterally (Dyspnea at rest, SPO2 92% on room air), Diminished (Diminished at the bases) Cardiovascular: Normal pulses, Regular rate/rhythm, Edema (1+ lower extremity edema) Capillary refill: <2 Seconds Gastrointestinal: Normal bowel sounds, Distended, Ascites (Paracentesis done remote 5 L fluid) Musculoskeletal: No clubbing, No swelling, No erythema, No tenderness, Swelling (Lower extremity edema 1+) Integumentary: No rashes, No breakdown, No significant lesion, No tenderness/swelling, No erythema, No warmth, No cyanosis Neurological: Normal strength at 5/5 x4 extr, Normal tone, Normal reflexes 2+, Normal affect - Studies Laboratory Data (last 24 hrs) 08/20/23 08/20/23 08/20/23 13:31 13:31 13:31 WBC 3.30 L Hgb 7.7 L Hct 23.0 L Plt Count 119 L PT 11.5 INR 1.05 Sodium 143 Potassium 4.3 BUN 36 H Creatinine 0.89 Glucose 117 H Magnesium 2.0 Total Bilirubin 0.4 AST 40 H ALT 31 Alkaline Phosphatase 59 Assessment and Plan - Problems (Diagnosis) (1) CAD (coronary artery disease) Current Visit: Yes Status: Chronic Plan: * Chronic, controlled on Plavix 75 mg p.o. daily. Patient denies chest pain or discomfort * Admit the patient. Continuous telemetry monitoring * Resume home medication * Cardiac diet Qualifiers: Coronary Disease-Associated Artery/Lesion type: [place] artery [place] vs. transplanted heart: [place] heart Associated angina: without angina Qualified Code(s): I25.10 - Atherosclerotic heart disease of [place] coronary artery without angina pectoris (2) Ascites Current Visit: No Status: Chronic Plan: * Chronic uncontrolled, patient came to the ER due to increasing shortness of breath at rest * Patient is on Spironolactone 100 mg PO DAILY and Furosemide 40 mg PO * Abdominal tapping was done in the ER removed approximately 5 L fluid, patient tolerated the procedure * Vital signs are stable * Will admit the patient to the hospital, monitor the electrolytes and replace as per protocol * Monitor the patient closely, O2 2 L/min for shortness of breath and oxygen saturations less than 92% * Albuterol inhalation as needed for shortness of breath Qualifiers: Ascites type: other type Qualified Code(s): R18.8 - Other ascites (3) Pleural effusion, right Current Visit: No Status: Acute Plan: * Acute, with increase dyspnea * Admitted the patient to the hospital * Patient felt better after abdominal tapping * Continue to monitor the patient closely, oxygen 2 L via nasal cannula for increased shortness of breath or SPO2 below 92% * Albuterol inhalation as needed (4) HTN (hypertension) Current Visit: No Status: Chronic Plan: * Chronic, uncontrolled on amlodipine 10 mg p.o. daily and lisinopril 20 mg p.o. daily * Blood pressure has come down after the paracentesis, * GFR 96 * Admitting the patient in the hospital, telemetry monitoring, * Monitor the blood pressure call for blood pressure sustained above 160/90 * Resume home medications Qualifiers: Hypertension type: primary hypertension Qualified Code(s): I10 - Essential (primary) hypertension (5) Hepatitis C Current Visit: No Status: Chronic Plan: Chronic, Continue to monitor Qualifiers: Viral hepatitis chronicity: chronic Hepatic coma status: without hepatic coma Qualified Code(s): B18.2 - Chronic viral hepatitis C (6) Liver cirrhosis Current Visit: No Status: Chronic Plan: * Chronic, uncontrolled AST 40, albumin 2.9 * Patient reports that his name fell out of transplant list in [place] and patient is planning to register to another hospital for possible transplant * Continue supportive treatment Qualifiers: Hepatic cirrhosis type: unspecified hepatic cirrhosis Ascites presence: with ascites Qualified Code(s): K74.60 - Unspecified cirrhosis of liver; R18.8 - Other ascites - Advance Directives Does patient have a Living Will: No Does patient have a Durable POA for Healthcare: No - Code Status/Comfort Care Code Status Assessed: Yes (Full code) Code Status: Full Code Physician Review: Patient Assessed, Agree with Above Assessment and Plan Critical Care: No Time Spent Managing Pts Care (In Minutes): 55 (Minute)
[2023-08-20] MEDS ORDERED: ALBUTEROL 2.5 MG/3 ML NEB SOL NEB PRN (17:30)
[2023-08-20] MEDS ORDERED: ONDANSETRON 4 MG/2 ML VIAL IV PRN (17:30)
[2023-08-20] MEDS ORDERED: ACETAMINOPHEN 500 MG TAB PO PRN (17:30)
[2023-08-20] MEDS: MORPHINE 2 MG/ML SYR IV PRN (21:21)
[2023-08-20] MEDS: ENOXAPARIN 40 MG/0.4 ML SQ SCH (21:21)
[2023-08-21 07:08] LABS: Absolute Lymphocytes (CBC) 0.5 K/uL (0.7-4.9); Lymphocytes % 13.4 % (15.3-44.8); Platelets 125 thou/uL (152-406)
[2023-08-21 07:37] LABS: Phosphorus 3.6 mg/dL (2.5-4.9); Potassium 4.2 mEq/L (3.5-5.1)
[2023-08-21] MEDS: ENOXAPARIN 40 MG/0.4 ML SQ SCH (09:13)
[2023-08-21] MEDS: MORPHINE 2 MG/ML SYR IV PRN ×2 (09:13→16:42)
--- NOTE | 2023-08-21 09:57 | P.PN ---
Subjective Date of Service: 08/21/23 Primary Care Provider: Dangelo Monahan Chief Complaint: Ascitis, Cirrhosis of Liver, Dyspnea Subjective: No new changes, Tolerating diet, Improving (Continue to be short of breath with mild exertion) Review of Systems 10-point ROS is otherwise unremarkable General: Weakness Eyes: Unremarkable ENT: Unremarkable (Hard of hearing) Respiratory: SOB with Excertion, Other (On oxygen 2 L through nasal cannula) Cardiovascular: Unremarkable Gastrointestinal: Distention (Mild ascites, positive paracentesis yesterday) Genitourinary: Unremarkable Musculoskeletal: Atrophy, Back Pain Integumentary: Bruising (Fading ecchymotic spots all over the body) Neurological: Weakness (Generalized weakness) Physical Examination - Vital Signs Temperature: 98.0 F Blood Pressure: 175/81 Pulse: 85 Respirations: 24 Pulse Ox (%): 99 - Studies Laboratory Data (last 24 hrs) 08/20/23 08/20/23 08/20/23 13:31 13:31 13:31 WBC 3.30 L Hgb 7.7 L Hct 23.0 L Plt Count 119 L PT 11.5 INR 1.05 Sodium 143 Potassium 4.3 BUN 36 H Creatinine 0.89 Glucose 117 H Magnesium 2.0 Total Bilirubin 0.4 AST 40 H ALT 31 Alkaline Phosphatase 59 Assessment And Plan - Current Problems (Diagnosis) (1) CAD (coronary artery disease) Current Visit: Yes Status: Chronic Plan: * Chronic, controlled on Plavix 75 mg p.o. daily. Patient denies chest pain or discomfort * Admit the patient. Continuous telemetry monitoring * Resume home medication * Cardiac diet Qualifiers: Coronary Disease-Associated Artery/Lesion type: [place] artery [place] vs. transplanted heart: [place] heart Associated angina: without angina Qualified Code(s): I25.10 - Atherosclerotic heart disease of [place] coronary artery without angina pectoris (2) Ascites Current Visit: No Status: Chronic Plan: * Chronic uncontrolled, patient came to the ER due to increasing shortness of breath at rest * Patient is on Spironolactone 100 mg PO DAILY and Furosemide 40 mg PO * Abdominal tapping was done in the ER removed approximately 5 L fluid, patient tolerated the procedure * Vital signs are stable * Will admit the patient to the hospital, monitor the electrolytes and replace as per protocol * Monitor the patient closely, O2 2 L/min for shortness of breath and oxygen saturations less than 92% * Albuterol inhalation as needed for shortness of breath Qualifiers: Ascites type: other type Qualified Code(s): R18.8 - Other ascites (3) Pleural effusion, right Current Visit: No Status: Acute Plan: * Acute, with increase dyspnea * Admitted the patient to the hospital * Patient felt better after abdominal tapping * Continue to monitor the patient closely, oxygen 2 L via nasal cannula for increased shortness of breath or SPO2 below 92% * Albuterol inhalation as needed (4) HTN (hypertension) Current Visit: No Status: Chronic Plan: * Chronic, uncontrolled on amlodipine 10 mg p.o. daily and lisinopril 20 mg p.o. daily * Blood pressure has come down after the paracentesis, * GFR 96 * Admitting the patient in the hospital, telemetry monitoring, * Monitor the blood pressure call for blood pressure sustained above 160/90 * Resume home medications Qualifiers: Hypertension type: primary hypertension Qualified Code(s): I10 - Essential (primary) hypertension (5) Hepatitis C Current Visit: No Status: Chronic Plan: Chronic, Continue to monitor Qualifiers: Viral hepatitis chronicity: chronic Hepatic coma status: without hepatic coma Qualified Code(s): B18.2 - Chronic viral hepatitis C (6) Liver cirrhosis Current Visit: No Status: Chronic Plan: * Chronic, uncontrolled AST 40, albumin 2.9 * Patient reports that his name fell out of transplant list in [place] and patient is planning to register to another hospital for possible transplant * Continue supportive treatment Qualifiers: Hepatic cirrhosis type: unspecified hepatic cirrhosis Ascites presence: with ascites Qualified Code(s): K74.60 - Unspecified cirrhosis of liver; R18.8 - Other ascites (7) Anemia of other chronic disease Current Visit: Yes Status: Chronic Plan: * Chronic, worsening hemoglobin 7.2 hematocrit 22 today * Patient reports that he had black stools 2 weeks ago * GI doctor Dr. Tucker consulted already * Will recheck the hemoglobin tomorrow morning Discharge Plan: Home Plan to discharge in: 24 Hours - Code Status/Comfort Care Code Status Assessed: Yes (Full code) Code Status: Full Code Physician Review: Patient Assessed, Agree with Above Assessment and Plan Critical Care: No Time Spent Managing PTS Care (In Minutes): 55 (Minutes)
--- NOTE | 2023-08-21 12:39 | EKG ---
Test Date: 2023-08-20 Test Time: 13:08:21 Fashion Journalist: KAITLIN MEASUREMENT RESULTS: Intervals: Rate: 74 RI: QRSD: 86 QT: 398 QTc: 441 [place]: P: RI: QRS: -13 T: 60 INTERPRETIVE STATEMENTS: Accelerated Junctional rhythm Nonspecific ST and T wave abnormality Abnormal ECG Compared to ECG 11/23/2021 15:47:29 Accelerated junctional rhythm now present ST (T wave) deviation now present Sinus rhythm no longer present Electronically Signed On 08-21-23 12:36:39 CDT by Luís Velasco
[2023-08-21] MEDS ORDERED: FUROSEMIDE 20 MG/ 2ML VIAL IV SCH (19:18)
[2023-08-21] MEDS: FUROSEMIDE 40 MG/4 ML VIAL IV SCH (19:20)
[2023-08-21] MEDS: ATORVASTATIN 20 MG TAB PO SCH (19:53)
[2023-08-21 20:25] LABS: Specific Gravity 1.017 (1.005-1.030); Urine Bacteria <20 /HPF (<20); Urine Bilirubin NEGATIVE (Negative); Urine Blood 2+ (Negative); Urine Clarity Turbid (Clear); Urine Color Light-Yellow (Yellow); Urine Glucose NEGATIVE (Negative); Urine Mucus Slight /HPF (None Seen); Urine Protein 3+ (Negative); Urine Urobilinogen Normal (Normal)
[2023-08-22] MEDS: MORPHINE 2 MG/ML SYR IV PRN ×3 (03:58→20:25)
[2023-08-22] MEDS: AMLODIPINE 5 MG TAB PO SCH (08:11)
[2023-08-22] MEDS: lisinopriL 20 MG TAB PO SCH (08:11)
[2023-08-22] MEDS: ENOXAPARIN 40 MG/0.4 ML SQ SCH (08:11)
[2023-08-22] MEDS: FUROSEMIDE 40 MG/4 ML VIAL IV SCH ×2 (08:12→17:16)
[2023-08-22] MEDS ORDERED: CLOPIDOGREL 75 MG TABLET PO SCH (09:00)
[2023-08-22] MEDS: SPIRONOLACTONE 100 MG TAB PO SCH (09:00)
[2023-08-22 09:16] LABS: Absolute Lymphocytes (CBC) 0.5 K/uL (0.7-4.9); Hematocrit 23.3 % (39.6-49.0); Lymphocytes % 16.1 % (15.3-44.8); MCV 96.8 fL (80-100); MPV 6.9 fL (7.6-11.3); Platelets 114 thou/uL (152-406); RBC Red Blood Cell Count 2.41 M/uL (4.33-5.43)
[2023-08-22 09:45] LABS: Phosphorus 3.1 mg/dL (2.5-4.9); Potassium 4.6 mEq/L (3.5-5.1)
--- NOTE | 2023-08-22 11:02 | RAD REPORT ---
EXAM DESCRIPTION: US - Thoracentesis w/ US Guide - 08/22/2023 10:36 am CLINICAL HISTORY: Pleural effusion. R sided effusion COMPARISON: Paracentesis Proc Guidance dated 11/24/2021 FINDINGS: Preoperative diagnosis: Right sided effusion Post operative diagnosis: Same Conscious Sedation: None. Estimated blood loss: Minimal Specimens:A small volume of fluid was sent for requested lab studies. The patient was placed in the upright recumbent position and the right posterior chest wall was prepp ed and draped in the usual sterile fashion. 1% Lidocaine was infiltrated into the soft tissues for l ocal anesthesia. Under sonographic guidance, a thoracentesis needle and 6 [place] catheter was advanc ed into the right pleural space. Approximately 1.5 Liters yellow fluid was aspirated. Samples were se nt to pathology for requested analysis. The patient tolerated the procedure without immediate complic ation and transferred to the floor in stable condition. Patient did experience a nosebleed at the end of the procedure. IMPRESSION: Successful ultrasound-guided thoracentesis as detailed.
--- NOTE | 2023-08-22 11:10 | P.PN ---
Subjective Date of Service: 08/22/23 Primary Care Provider: Dangelo Monahan Chief Complaint: Ascitis, Cirrhosis of Liver, Dyspnea Subjective: C/O voiced, Other ( Patient is alert and oriented, on oxygen 2 L through nasal cannula. Noted shortness of breath at rest. Possible ascites. Patient is going to ultrasound guided pleural therapy today.) Review of Systems 10-point ROS is otherwise unremarkable General: Weakness Eyes: Unremarkable ENT: Unremarkable Respiratory: Shortness of Breath (At rest, on oxygen 2 L through nasal cannula), SOB with Excertion Cardiovascular: Other (Ascites) Gastrointestinal: Distention Genitourinary: Unremarkable Musculoskeletal: Atrophy Integumentary: Bruising Neurological: Weakness (Generalized) Physical Examination - Vital Signs Temperature: 97.0 F Blood Pressure: 164/78 Pulse: 78 Respirations: 16 Pulse Ox (%): 96 - Physical Exam General: Alert, Oriented x3, Cooperative, Cachectic HEENT: Atraumatic, Normocephalic, PERRLA, Mucous membr. moist/pink Neck: Supple, 2+ carotid pulse no bruit Respiratory: Clear to auscultation bilaterally, Normal air movement, Diminished (The patient) Cardiovascular: No edema, Normal pulses, Regular rate/rhythm, Normal S1 S2, Abnormal S3, No gallops, No rubs Capillary refill: <2 Seconds Gastrointestinal: Normal bowel sounds, Hypoactive, Soft and benign, Non- distended, W/out succussion splash, W/out hepatomegaly, W/out splenomegaly, No tenderness, No masses, No rebound, No guarding, Ascites Musculoskeletal: No clubbing, No swelling, No contractures, No erythema, No tenderness, No warmth Integumentary: Other (Ecchymotic spots on the hands) Neurological: Normal gait, Normal speech, Normal reflexes 2+, Normal affect Assessment And Plan - Current Problems (Diagnosis) (1) CAD (coronary artery disease) Current Visit: Yes Status: Chronic Plan: * Chronic, controlled on Plavix 75 mg p.o. daily. Patient denies chest pain or discomfort * Admit the patient. Continuous telemetry monitoring * Resume home medication * Cardiac diet Qualifiers: Coronary Disease-Associated Artery/Lesion type: [place] artery [place] vs. transplanted heart: [place] heart Associated angina: without angina Qualified Code(s): I25.10 - Atherosclerotic heart disease of [place] coronary artery without angina pectoris (2) Ascites Current Visit: No Status: Chronic Plan: * Chronic uncontrolled, patient came to the ER due to increasing shortness of breath at rest * Patient is on Spironolactone 100 mg PO DAILY and Furosemide 40 mg PO * Abdominal tapping was done in the ER removed approximately 5 L fluid, patient tolerated the procedure * Vital signs are stable * Will admit the patient to the hospital, monitor the electrolytes and replace as per protocol * Monitor the patient closely, O2 2 L/min for shortness of breath and oxygen saturations less than 92% * Albuterol inhalation as needed for shortness of breath Qualifiers: Ascites type: other type Qualified Code(s): R18.8 - Other ascites (3) Pleural effusion, right Current Visit: No Status: Acute Plan: * Acute, with increase dyspnea * Admitted the patient to the hospital * Patient felt better after abdominal tapping * Continue to monitor the patient closely, oxygen 2 L via nasal cannula for increased shortness of breath or SPO2 below 92% * Albuterol inhalation as needed (4) HTN (hypertension) Current Visit: No Status: Chronic Plan: * Chronic, uncontrolled on amlodipine 10 mg p.o. daily and lisinopril 20 mg p.o. daily * Blood pressure has come down after the paracentesis, * GFR 96 * Admitting the patient in the hospital, telemetry monitoring, * Monitor the blood pressure call for blood pressure sustained above 160/90 * Resume home medications Qualifiers: Hypertension type: primary hypertension Qualified Code(s): I10 - Essential (primary) hypertension (5) Hepatitis C Current Visit: No Status: Chronic Plan: Chronic, Continue to monitor Qualifiers: Viral hepatitis chronicity: chronic Hepatic coma status: without hepatic coma Qualified Code(s): B18.2 - Chronic viral hepatitis C (6) Liver cirrhosis Current Visit: No Status: Chronic Plan: * Chronic, uncontrolled AST 40, albumin 2.9 * Patient reports that his name fell out of transplant list in [place] and patient is planning to register to another hospital for possible transplant * Continue supportive treatment Qualifiers: Hepatic cirrhosis type: unspecified hepatic cirrhosis Ascites presence: with ascites Qualified Code(s): K74.60 - Unspecified cirrhosis of liver; R18.8 - Other ascites (7) Anemia of other chronic disease Current Visit: Yes Status: Chronic Plan: * Chronic, worsening hemoglobin 7.2 hematocrit 22 today * Patient reports that he had black stools 2 weeks ago * GI doctor Dr. Tucker consulted already * Will recheck the hemoglobin tomorrow morning Physician Review: Patient Assessed, Agree with Above Assessment and Plan
--- NOTE | 2023-08-22 11:56 | RAD REPORT ---
EXAM DESCRIPTION: RADChest Single View08/22/2023 11:15 am CLINICAL HISTORY: Status Post Thorocentesis COMPARISON: Chest Single View dated 08/20/2023; Chest Single View dated 11/23/2021; Chest Single View dated 02/22/2021; Chest Single View dated 01/31/2021; Thoracentesis w/ US Guide dated 08/22/2023 TECHNIQUE: Portable AP view of the chest. FINDINGS: No pneumothorax. Mild interval decrease in size of the right pleural effusion with some im provement of aeration in the upper lobe. The cardiomediastinal contours are unremarkable. IMPRESSION: Mild interval decrease in size of the right pleural effusion. No pneumothorax.
--- NOTE | 2023-08-22 12:19 | P.CNS ---
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 denies any fever chills or chest pain was recently at [facility] and had thoracentesis done patient has history of recurrent pleural and paracentesis Allergies No Known Allergies Allergy (Verified 11/23/21 21:46) Home Medications: Amlodipine [Norvasc*] 1 tab PO DAILY 07/13/21 Atorvastatin Calcium 20 mg PO BEDTIME 07/13/21 Clopidogrel Bisulfate [Plavix] 75 mg PO DAILY 07/13/21 Spironolactone 100 mg PO DAILY 07/13/21 lisinopriL [Lisinopril] 40 mg PO DAILY 07/13/21 Furosemide 40 mg PO BID #60 tablet 11/26/21 - Past Medical/Surgical History Diabetic: No -: CVA (11/11/2017) -: Fall(05/27/19) -: Hep C cirrhosis -: HTN -: Carotid artery stenosis -: R hip surgery Psychosocial/ Personal History: Patient is disabled, lives with a son - Family History Father Medical History: Stroke - Social History Smoking Status: Current every day smoker Alcohol use: No CD- Drugs: No Caffeine use: No Place of Residence: Home Review of Systems General: Weakness Respiratory: Shortness of Breath Gastrointestinal: Abdominal Pain Physical Examination Temp Pulse Resp BP Pulse Ox 98.2 F 85 14 113/59 L 96 08/22/23 11:36 08/22/23 11:36 08/22/23 11:36 08/22/23 11:36 08/22/23 11:36 General: Alert, Oriented x3 HEENT: Atraumatic Neck: Supple Respiratory: Diminished (Absent bowel sounds on the right side) Cardiovascular: No edema, Normal S1 S2 Gastrointestinal: Normal bowel sounds, Soft and benign Musculoskeletal: No clubbing - Problems (1) Pleural effusion Current Visit: Yes Status: Acute Plan: Patient is 62 years of age with a history of end-stage liver disease cirrhosis admitted with abdominal distention ascites s/p paracentesis he has a massive ef fusion on the right side with complete opacification of the right hemithorax most likely right-sided hepatic hydrothorax we will plan to schedule him for thoracentesis need periodic thoracentesis will have that arranged through outpatient patient has not taken any medication for the past 3 days will resume his Lasix spironolactone Plavix after the procedure patient has a mild normocytic anemia chemistries reviewed Thoracentesis has been ordered for discharge after that
[2023-08-22 14:06] LABS: Body Fluid WBC 73 /mm^3
--- NOTE | 2023-08-22 16:20 | P.PN ---
Subjective Date of Service: 08/22/23 Primary Care Provider: Dangelo Monahan Chief Complaint: Ascitis, Cirrhosis of Liver, Dyspnea Patient is alert oriented x3 On oxygen 2 L via nasal cannula Mildly short of breath in the bed without exertion Patient denies any pain or discomfort Discussed with nursing staff Patient is planning to go to ultrasound guided pleural tapping today Review of Systems 10-point ROS is otherwise unremarkable General: Weakness, Malaise Eyes: Unremarkable ENT: Unremarkable Respiratory: Shortness of Breath (At rest on oxygen 2 L via nasal nasal cannula) Cardiovascular: Unremarkable Gastrointestinal: Distention (Ascites) Genitourinary: Unremarkable Musculoskeletal: Atrophy, Back Pain (Chronic back) Integumentary: Other (Ecchymotic spots on the upper arms) Neurological: Weakness (Generalized weakness) Physical Examination - Vital Signs Temperature: 98.1 F Blood Pressure: 115/56 Pulse: 69 Respirations: 14 Pulse Ox (%): 100 - Physical Exam General: Alert, Oriented x3, Cooperative, Cachectic HEENT: Atraumatic, Normocephalic, PERRLA Neck: Supple, 2+ carotid pulse no bruit Respiratory: Clear to auscultation bilaterally, Diminished (At the bases) Cardiovascular: No edema, Normal pulses, Regular rate/rhythm, Normal S1 S2 Capillary refill: <2 Seconds Gastrointestinal: Normal bowel sounds, Soft and benign, No tenderness, No masses, No rebound, No guarding, Distended, Ascites Musculoskeletal: No clubbing, No swelling, No contractures, No erythema, No tenderness, No warmth Integumentary: No rashes, No breakdown, No significant lesion, No erythema, No warmth, No cyanosis Neurological: Normal strength at 5/5 x4 extr, Normal tone, Sensation intact, Cranial nerves 3-12 intact, Normal reflexes 2+, Normal affect, Abnormal gait (Bed confined with the weakness) Assessment And Plan - Current Problems (Diagnosis) (1) CAD (coronary artery disease) Current Visit: Yes Status: Chronic Plan: * Chronic, controlled on Plavix 75 mg p.o. daily. Patient denies chest pain or discomfort * Admit the patient. Continuous telemetry monitoring * Resume home medication * Cardiac diet Qualifiers: Coronary Disease-Associated Artery/Lesion type: [place] artery [place] vs. transplanted heart: [place] heart Associated angina: without angina Qualified Code(s): I25.10 - Atherosclerotic heart disease of [place] coronary artery wit hout angina pectoris (2) Ascites Current Visit: No Status: Chronic Plan: * Chronic uncontrolled, patient came to the ER due to increasing shortness of breath at rest * Patient is on Spironolactone 100 mg PO DAILY and Furosemide 40 mg PO * Abdominal tapping was done in the ER removed approximately 5 L fluid, patient tolerated the procedure * Vital signs are stable * Will admit the patient to the hospital, monitor the electrolytes and replace as per protocol * Monitor the patient closely, O2 2 L/min for shortness of breath and oxygen saturations less than 92% * Albuterol inhalation as needed for shortness of breath Qualifiers: Ascites type: other type Qualified Code(s): R18.8 - Other ascites (3) Pleural effusion, right Current Visit: No Status: Acute Plan: * Acute, with increase dyspnea * Admitted the patient to the hospital * Patient felt better after abdominal tapping * Continue to monitor the patient closely, oxygen 2 L via nasal cannula for increased shortness of breath or SPO2 below 92% * Albuterol inhalation as needed (4) HTN (hypertension) Current Visit: No Status: Chronic Plan: * Chronic, controlled on amlodipine 10 mg p.o. daily and lisinopril 20 mg p.o. daily * Blood pressure has come down after the paracentesis, * GFR 96 * Admitting the patient in the hospital, telemetry monitoring, * Monitor the blood pressure call for blood pressure sustained above 160/90 * Resume home medications Qualifiers: Hypertension type: primary hypertension Qualified Code(s): I10 - Essential (primary) hypertension (5) Hepatitis C Current Visit: No Status: Chronic Plan: Chronic, Continue to monitor Qualifiers: Viral hepatitis chronicity: chronic Hepatic coma status: without hepatic coma Qualified Code(s): B18.2 - Chronic viral hepatitis C (6) Liver cirrhosis Current Visit: No Status: Chronic Plan: * Chronic, uncontrolled AST 40, albumin 2.9 * Patient reports that his name fell out of transplant list in [place] and patient is planning to register to another hospital for possible transplant * Continue supportive treatment Qualifiers: Hepatic cirrhosis type: unspecified hepatic cirrhosis Ascites presence: with ascites Qualified Code(s): K74.60 - Unspecified cirrhosis of liver; R18.8 - Other ascites (7) Anemia of other chronic disease Current Visit: Yes Status: Chronic Plan: * Chronic, hemoglobin 7.7 hematocrit 23 today * GI doctor Dr. Tucker consulted already * Will recheck the hemoglobin tomorrow morning (8) Pleural effusion Current Visit: Yes Status: Chronic Plan: Chronic worsening, recurring pleural effusion with shortness of breath at rest Pleural tapping done under ultrasound guidance in the radiology department 1.5 L removed Patient is breathing better resting comfortably in the bed Vital stable Continue to monitor Discharge planning tomorrow Discharge Plan: Home Plan to discharge in: 24 Hours - Code Status/Comfort Care Code Status Assessed: Yes (Full code) Code Status: Full Code Physician Review: Patient Assessed, Agree with Above Assessment and Plan Time Spent Managing PTS Care (In Minutes): 55 (Minutes)
[2023-08-22 16:34] LABS: Body Fluid Source PLEURAL
[2023-08-22 16:40] LABS: Color of fluid Yellow (COLORLESS)
[2023-08-22 16:41] LABS: Appearance SLT. TURBID (CLEAR)
[2023-08-22] MEDS: ATORVASTATIN 20 MG TAB PO SCH (20:25)
[2023-08-23 04:08] LABS: Absolute Lymphocytes (CBC) 0.6 K/uL (0.7-4.9); Hematocrit 18.8 % (39.6-49.0); Lymphocytes % 19.6 % (15.3-44.8); MCV 95.6 fL (80-100); Platelets 108 thou/uL (152-406); RBC Red Blood Cell Count 1.96 M/uL (4.33-5.43)
[2023-08-23 04:17] LABS: Magnesium 1.9 mg/dL (1.6-2.4); Phosphorus 3.2 mg/dL (2.5-4.9); Potassium 4.7 mEq/L (3.5-5.1)
[2023-08-23] MEDS: MORPHINE 2 MG/ML SYR IV PRN ×3 (06:12→22:51)
[2023-08-23] MEDS: lisinopriL 20 MG TAB PO SCH (08:28)
[2023-08-23] MEDS: AMLODIPINE 5 MG TAB PO SCH (08:28)
[2023-08-23] MEDS: SPIRONOLACTONE 100 MG TAB PO SCH (08:29)
[2023-08-23] MEDS: ENOXAPARIN 40 MG/0.4 ML SQ SCH (08:29)
[2023-08-23] MEDS: FUROSEMIDE 40 MG/4 ML VIAL IV SCH (08:29)
[2023-08-23] MEDS ORDERED: NA CHLORIDE 0.9% 250 ML IV SCH (09:00)
--- NOTE | 2023-08-23 09:44 | P.PN ---
Subjective Date of Service: 08/23/23 Primary Care Provider: Dangelo Monahan Chief Complaint: Ascitis, Cirrhosis of Liver, Dyspnea Subjective: No new changes, No C/O voiced, Tolerating diet, Ambulating, Working w/ PT Patient is alert oriented x3 On oxygen 2 L via nasal cannula Mildly short of breath in the bed without exertion Patient denies any pain or discomfort Discussed with nursing staff Patient is ordered to get a unit of blood today as his Hgb is 6..5/hct18.8 Review of Systems 10-point ROS is otherwise unremarkable General: Unremarkable Eyes: Unremarkable ENT: Unremarkable Respiratory: Shortness of Breath (Short of breath but not in distress on oxygen 2 L through nasal cannula), SOB with Excertion Cardiovascular: Unremarkable Gastrointestinal: Distention (Ascites) Genitourinary: As per HPI, Unremarkable Musculoskeletal: Atrophy Integumentary: Bruising (Multiple ecchymotic spots on both upper arms), Other Neurological: Unremarkable Physical Examination - Vital Signs Temperature: 97.8 F Blood Pressure: 143/62 Pulse: 78 Respirations: 20 Pulse Ox (%): 100 - Physical Exam General: Alert, Oriented x3, Cooperative, Cachectic HEENT: Atraumatic, Normocephalic, PERRLA Neck: Supple, 2+ carotid pulse no bruit Respiratory: Clear to auscultation bilaterally, Diminished (At the bases), Other (Short of breath at rest) Cardiovascular: No edema, Normal pulses, Regular rate/rhythm, Normal S1 S2 Capillary refill: <2 Seconds Gastrointestinal: Normal bowel sounds, Hypoactive, Soft and benign, Non- distended, W/out succussion splash, W/out hepatosplenomegaly, W/out hepatomegaly, No masses, Distended Musculoskeletal: No clubbing, No swelling, No contractures, No erythema, No tenderness, No warmth Integumentary: No breakdown, No significant lesion, No tenderness/swelling, No erythema, No warmth, Rash(es) (ecchymotic spots on the UEs) Neurological: Normal speech, Normal strength at 5/5 x4 extr, Sensation intact, Cranial nerves 3-12 intact, Normal reflexes 2+ Assessment And Plan - Current Problems (Diagnosis) (1) CAD (coronary artery disease) Current Visit: Yes Status: Chronic Plan: * Chronic, controlled on Plavix 75 mg p.o. daily. Patient denies chest pain or discomfort * Admit the patient. Continuous telemetry monitoring * Resume home medication * Cardiac diet Qualifiers: Coronary Disease-Associated Artery/Lesion type: [place] artery [place] vs. transplanted heart: [place] heart Associated angina: without angina Qualified Code(s): I25.10 - Atherosclerotic heart disease of [place] coronary artery without angina pectoris (2) Ascites Current Visit: No Status: Chronic Plan: * Chronic uncontrolled, patient came to the ER due to increasing shortness of breath at rest * Patient is on Spironolactone 100 mg PO DAILY and Furosemide 40 mg PO daily * Abdominal tapping was done in the ER removed approximately 5 L fluid, patient tolerated the procedure * Vital signs are stable * Will admit the patient to the hospital, monitor the electrolytes and replace as per protocol * Monitor the patient closely, O2 2 L/min for shortness of breath and oxygen saturations less than 92% * Albuterol inhalation as needed for shortness of breath Qualifiers: Ascites type: other type Qualified Code(s): R18.8 - Other ascites (3) Pleural effusion, right Current Visit: No Status: Acute Plan: * Acute, with dyspnea, stable * Admitted the patient to the hospital * Patient felt better after abdominal tapping * Continue to monitor the patient closely, oxygen 2 L via nasal cannula for increased shortness of breath or SPO2 below 92% * Albuterol inhalation every 6 hours scheduled and as needed for shortness breath * 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 daily and lisinopril 20 mg p.o. daily * Blood pressure has come down after the paracentesis, * GFR 96 * Admitting the patient in the hospital, telemetry monitoring, * Monitor the blood pressure call for blood pressure sustained above 160/90 * Resume home medications Qualifiers: Hypertension type: primary hypertension Qualified Code(s): I10 - Essential (primary) hypertension (5) Hepatitis C Current Visit: No Status: Chronic Plan: Chronic, Continue to monitor Qualifiers: Viral hepatitis chronicity: chronic Hepatic coma status: without hepatic coma Qualified Code(s): B18.2 - Chronic viral hepatitis C (6) Liver cirrhosis Current Visit: No Status: Chronic Plan: * Chronic, uncontrolled AST 40, albumin 2.9 * Patient reports that his name fell out of transplant list in [place] and patient is planning to register to another hospital for possible transplant * Continue supportive treatment Qualifiers: Hepatic cirrhosis type: unspecified hepatic cirrhosis Ascites presence: wit h ascites Qualified Code(s): K74.60 - Unspecified cirrhosis of liver; R18.8 - Other ascites (7) Anemia of other chronic disease Current Visit: Yes Status: Chronic Plan: * Chronic, worsening hemoglobin 6.5 hematocrit 18.8today * Ordered one unit PRBC today, Ordered by Dr. Gotti. * GI doctor Dr. Tucker consulted already, tp f/u with GI outpatient as well. * Will recheck the hemoglobin tomorrow morning Discharge Plan: Home Plan to discharge in: 24 Hours - Code Status/Comfort Care Code Status Assessed: Yes (Full code) Code Status: Full Code Physician Review: Patient Assessed, Agree with Above Assessment and Plan Critical Care: No Time Spent Managing PTS Care (In Minutes): 55 (minutes)
[2023-08-23] MEDS: ALBUTEROL 2.5 MG/3 ML NEB SOL NEB SCH ×2 (13:00→20:00)
[2023-08-23 18:39] LABS: Hematocrit 23.3 % (39.6-49.0)
[2023-08-23] MEDS: ATORVASTATIN 20 MG TAB PO SCH (19:45)
[2023-08-24] MEDS: ALBUTEROL 2.5 MG/3 ML NEB SOL NEB SCH ×4 (02:00→19:10)
[2023-08-24] MEDS: AMLODIPINE 5 MG TAB PO SCH (08:55)
[2023-08-24] MEDS: ENOXAPARIN 40 MG/0.4 ML SQ SCH (08:55)
[2023-08-24] MEDS: SPIRONOLACTONE 100 MG TAB PO SCH (08:56)
[2023-08-24] MEDS: lisinopriL 20 MG TAB PO SCH (08:56)
[2023-08-24] MEDS: FUROSEMIDE 40 MG/4 ML VIAL IV SCH ×2 (08:57→16:28)
[2023-08-24] MEDS: MORPHINE 2 MG/ML SYR IV PRN (09:23)
[2023-08-24 09:45] LABS: Hematocrit 25.1 % (39.6-49.0)
--- NOTE | 2023-08-24 10:32 | P.PN ---
Subjective Date of Service: 08/24/23 Primary Care Provider: Dangelo Monahan Chief Complaint: Ascitis, Cirrhosis of Liver, Dyspnea Patient is alert oriented x3 On room air, no respiratory distress noted Short of breath with exertion Complains of pain Discussed with nursing staff Ordered analgesics oral Patient received a unit of blood yesterday <Belle Milligan - Last Filed: 08/24/23 10:26> Date of Service: 08/24/23 <Dangelo Gotti - Last Filed: 08/24/23 16:31> Review of Systems 10-point ROS is otherwise unremarkable General: Unremarkable Eyes: Other (Pain on the back) ENT: Unremarkable Respiratory: Shortness of Breath, Other Cardiovascular: Other Gastrointestinal: Distention, Other (Ascites) Musculoskeletal: Back Pain Integumentary: Rash (Ecchymosis spots on both arms) Neurological: Weakness <Belle Milligan - Last Filed: 08/24/23 10:26> Physical Examination - Vital Signs Temperature: 97.7 F Blood Pressure: 123/69 Pulse: 63 Respirations: 20 Pulse Ox (%): 98 - Physical Exam General: Alert, In no apparent distress, Oriented x3 HEENT: Atraumatic, Normocephalic, PERRLA Neck: 2+ carotid pulse no bruit, JVD not distended Respiratory: Clear to auscultation bilaterally, Diminished (bases) Cardiovascular: No edema, Normal pulses, Regular rate/rhythm, Normal S1 S2 Capillary refill: <2 Seconds Gastrointestinal: Normal bowel sounds, Soft and benign, No tenderness, No masses, No rebound, No guarding, Other, Distended, Ascites Musculoskeletal: No swelling, No contractures, No erythema, No tenderness, No warmth Integumentary: No rashes, No breakdown, No significant lesion, No tenderness/swelling, No erythema, No warmth, No cyanosis Neurological: Normal speech, Normal strength at 5/5 x4 extr, Sensation intact, Cranial nerves 3-12 intact, Normal reflexes 2+ <Belle Milligan - Last Filed: 08/24/23 10:26> Assessment And Plan - Current Problems (Diagnosis) (1) CAD (coronary artery disease) Current Visit: Yes Status: Chronic Plan: * Chronic, controlled on Plavix 75 mg p.o. daily. Patient denies chest pain or discomfort * Admit the patient. Continuous telemetry monitoring * Resume home medication * Cardiac diet Qualifiers: Coronary Disease-Associated Artery/Lesion type: [place] artery [place] vs. transplanted heart: [place] heart Associated angina: without angina Qualified Code(s): I25.10 - Atherosclerotic heart disease of [place] coronary artery without angina pectoris (2) Ascites Current Visit: No Status: Chronic Plan: * Chronic. Improving. Had Paracentesis, in the ER due to increasing shortness of breath at rest * Patient is on Spironolactone 100 mg PO DAILY and Furosemide 40 mg PO daily * Abdominal tapping was done in the ER removed approximately 5 L fluid, patient tolerated the procedure * Vital signs are stable * Will continue to monitor the electrolytes and replace as per protocol * Monitor the patient closely, O2 2 L/min for shortness of breath and oxygen saturations less than 92% * Albuterol inhalation as needed for shortness of breath Qualifiers: Ascites type: other type Qualified Code(s): R18.8 - Other ascites (3) Pleural effusion, right Current Visit: No Status: Acute Plan: * Acute, improving, with CONRAD, stable * Off oxygen now. * Patient felt better after abdominal tapping * Continue to monitor the patient closely, oxygen 2 L via nasal cannula prn for increased shortness of breath or SPO2 below 92% * Albuterol inhalation every 6 hours scheduled and as needed for shortness breath * Follow-up with the cordwood cutter Dr. Maciel after discharge (4) HTN (hypertension) Current Visit: No Status: Chronic Plan: * Chronic, controlled on amlodipine 10 mg p.o. daily and lisinopril 20 mg p.o. daily * Blood pressure has come down after the paracentesis, * GFR 96 * Admitting the patient in the hospital, telemetry monitoring, * Monitor the blood pressure call for blood pressure sustained above 160/90 * Resume home medications Qualifiers: Hypertension type: primary hypertension Qualified Code(s): I10 - Essential (primary) hypertension (5) Hepatitis C Current Visit: No Status: Chronic Plan: Chronic, Continue to monitor Qualifiers: Viral hepatitis chronicity: chronic Hepatic coma status: without hepatic coma Qualified Code(s): B18.2 - Chronic viral hepatitis C (6) Liver cirrhosis Current Visit: No Status: Chronic Plan: * Chronic, AST 40, albumin 2.9 * Patient reports that his name fell out of transplant list in [place] and patient is planning to register to another hospital for possible transplant * Continue supportive treatment Qualifiers: Hepatic cirrhosis type: unspecified hepatic cirrhosis Ascites presence: with ascites Qualified Code(s): K74.60 - Unspecified cirrhosis of liver; R18.8 - Other ascites (7) Anemia of other chronic disease Current Visit: Yes Status: Chronic Plan: * Chronic, worsening hemoglobin 8.5 hematocrit 25.1today * Ordered one unit PRBC today, Ordered by Dr. Gotti. * GI doctor Dr. Tucker consulted already, tp f/u with GI outpatient as well. * Will recheck the hemoglobin tomorrow morning Discharge Plan: Home Plan to discharge in: 24 Hours - Code Status/Comfort Care Code Status Assessed: Yes (Full code) Code Status: Full Code Physician Review: Patient Assessed, Agree with Above Assessment and Plan Critical Care: No Time Spent Managing PTS Care (In Minutes): 55 (minutes) <Belle Milligan - Last Filed: 08/24/23 10:26> Physician Review: Patient Assessed, Agree with Above Assessment and Plan Physician Review Additional Text: He was having significant shortness of breath this morning and was on 3 L nasal cannula. He states that he is not interested in having oxygen at home. His abdomen is quite distended, and it is felt that he would benefit from a therapeutic paracentesis. I spoke with Dr. Saavedra (Emergency Medicine), who was able to do the paracentesis today. He states that he removed 1 L, and there was significant improvement in his symptoms. Dangelo Gotti M.D. <Dangelo Gotti - Last Filed: 08/24/23 16:31>
[2023-08-24] MEDS: HYDROCODONE/APAP 5/325 MG TAB PO PRN ×2 (16:33→21:45)
--- NOTE | 2023-08-24 18:34 | P.PN ---
Date of Service: 08/24/23 I was emergently called due to concern for acute deterioration in his respiratory status. Patient is a known cirrhotic with known ascites with recent paracentesis and approximately 4 L removed previously. Concern was that patient was deteriorating in terms of respiratory status and patient required an emergent paracentesis to remove volume to help with the patient's respiratory status. I performed a bedside ultrasound that showed significant fluid burden in the abdomen, with patient consent, I performed an ultrasound-guided paracentesis with removal of approximately 1 L of ascites. 1 L of ascites fluid removed without complication, undresses and patient reports marked improvement in his symptoms and subjective improvement in his respiratory status. Patient without any evidence of hypoxia or respiratory distress after my intervention.
--- NOTE | 2023-08-24 18:35 | P.PN ---
Date of Service: 08/24/23 I was emergently called due to concern for deterioration in his respiratory status. Patient with known liver cirrhosis, known ascites with recent paracentesis of approximately 4 L. Patient noted to have worsening respiratory status, worsening tachypnea and subjective shortness of breath. Given the worsening change in status, I agreed with primary team to perform emergent paracentesis. I performed ultrasound that showed significant fluid in the right lower quadrant. I prepped and draped the individual under sterile technique and use ultrasound guidance and removed approximately 1 L of ascites. On my reassessment of the patient, patient with improvement in his respiratory status.
[2023-08-24] MEDS: ATORVASTATIN 20 MG TAB PO SCH (19:08)
[2023-08-25] MEDS: ALBUTEROL 2.5 MG/3 ML NEB SOL NEB SCH ×4 (01:40→20:00)
[2023-08-25] MEDS: HYDROCODONE/APAP 5/325 MG TAB PO PRN ×3 (04:25→20:07)
[2023-08-25] MEDS: AMLODIPINE 5 MG TAB PO SCH (08:28)
[2023-08-25] MEDS: lisinopriL 20 MG TAB PO SCH (08:28)
[2023-08-25] MEDS: SPIRONOLACTONE 100 MG TAB PO SCH (08:28)
[2023-08-25] MEDS: FUROSEMIDE 40 MG/4 ML VIAL IV SCH ×2 (08:29→18:09)
[2023-08-25] MEDS: ENOXAPARIN 40 MG/0.4 ML SQ SCH (08:29)
--- NOTE | 2023-08-25 09:48 | RAD REPORT ---
EXAM DESCRIPTION: RAD - Chest Single View - 08/25/2023 9:41 am CLINICAL HISTORY: follow-up pleural effusion Chest pain. COMPARISON: <Comparisons> FINDINGS: Portable technique limits examination quality. Complete opacification of the right hemithorax is noted likely attributable to a large right pleural effusion. This appears increased in size since comparative study dated 08/22/2023. The left lung is g rossly clear. Cardiac size is likely mildly prominent.
--- NOTE | 2023-08-25 13:32 | P.PN ---
Date of Service: 08/25/23 [facility] Live Progress Note Patient Name: DINO CARDOZA Date of : 1960 Patient Status: Inpatient Attending Provider: Dangelo Gotti Date: 08/24/23 Initialization Date: 08/25/23 Subjective Date of Service: 08/25/23 Primary Care Provider: Dangelo Monaahn Chief Complaint: Ascitis, Cirrhosis of Liver, Dyspnea Patient is alert oriented x3 On room air, no respiratory distress noted Short of breath with exertion Complains of pain Discussed with nursing staff Ordered analgesics oral Patient received a unit of blood yesterday Date of Service: 08/25/23 Review of Systems 10-point ROS is otherwise unremarkable General: Unremarkable Eyes: Other (Pain on the back) ENT: Unremarkable Respiratory: Shortness of Breath, Other Cardiovascular: Other Gastrointestinal: Distention, Other (Ascites) Musculoskeletal: Back Pain Integumentary: Rash (Ecchymosis spots on both arms) Neurological: Weakness Physical Examination - Vital Signs Temp: 97.4, heart rate 97, breathing 16, blood pressure 139/68 - Physical Exam General: Alert, In no apparent distress, Oriented x3 HEENT: Atraumatic, Normocephalic, PERRLA Neck: 2+ carotid pulse no bruit, JVD not distended Respiratory: Clear to auscultation bilaterally, Diminished (bases) Cardiovascular: No edema, Normal pulses, Regular rate/rhythm, Normal S1 S2 Capillary refill: <2 Seconds Gastrointestinal: Normal bowel sounds, Soft and benign, No tenderness, No masses, No rebound, No guarding, Other, Distended, Ascites Musculoskeletal: No swelling, No contractures, No erythema, No tenderness, No warmth Integumentary: No rashes, No breakdown, No significant lesion, No tenderness/swelling, No erythema, No warmth, No cyanosis Neurological: Normal speech, Normal strength at 5/5 x4 extr, Sensation intact, Cranial nerves 3-12 intact, Normal reflexes 2+ Assessment And Plan - Current Problems (Diagnosis) (1) CAD (coronary artery disease) Current Visit: Yes Status: Chronic Plan: * Chronic, controlled on Plavix 75 mg p.o. daily. Patient denies chest pain or discomfort * Admit the patient. Continuous telemetry monitoring * Resume home medication * Cardiac diet Qualifiers: Coronary Disease-Associated Artery/Lesion type: [place] artery [place] vs. transplanted heart: [place] heart Associated angina: without angina Qualified Code(s): I25.10 - Atherosclerotic heart disease of [place] coronary artery without angina pectoris (2) Ascites Current Visit: No Status: Chronic Plan: * Chronic. Improving. Had Paracentesis, in the ER due to increasing shortness of breath at rest * Patient is on Spironolactone 100 mg PO DAILY and Furosemide 40 mg PO daily * Abdominal tapping was done in the ER 08/24/2023 removed approximately 5 L fluid, patient tolerated the procedure * Vital signs are stable * Will continue to monitor the electrolytes and replace as per protocol * Monitor the patient closely, O2 2 L/min for shortness of breath and oxygen s aturations less than 92% * Albuterol inhalation as needed for shortness of breath Qualifiers: Ascites type: other type Qualified Code(s): R18.8 - Other ascites (3) Pleural effusion, right Current Visit: No Status: Acute Plan: * Acute, improving, with CONRAD, stable * On oxygen 2 L of oxygen through nasal cannula * Patient had a paracentesis on 08/24/2023 in the emergency room 1 L removed * Patient felt better after abdominal tapping * Continue to monitor the patient closely, oxygen 2 L via nasal cannula prn for increased shortness of breath or SPO2 below 92% * Albuterol inhalation every 6 hours scheduled and as needed for shortness breath * Follow-up with the tavern car attendant Dr. Maciel after discharge (4) HTN (hypertension) Current Visit: No Status: Chronic Plan: * Chronic, controlled on amlodipine 10 mg p.o. daily and lisinopril 20 mg p.o. daily * Blood pressure has come down after the paracentesis, * GFR 96 * Admitting the patient in the hospital, telemetry monitoring, * Monitor the blood pressure call for blood pressure sustained above 160/90 * Resume home medications Qualifiers: Hypertension type: primary hypertension Qualified Code(s): I10 - Essential (primary) hypertension (5) Hepatitis C Current Visit: No Status: Chronic Plan: Chronic, Continue to monitor Qualifiers: Viral hepatitis chronicity: chronic Hepatic coma status: without hepatic coma Qualified Code(s): B18.2 - Chronic viral hepatitis C (6) Liver cirrhosis Current Visit: No Status: Chronic Plan: * Chronic, AST 40, albumin 2.9 * Patient reports that his name fell out of transplant list in [place] and patient is planning to register to another hospital for possible transplant * Continue supportive treatment Qualifiers: Hepatic cirrhosis type: unspecified hepatic cirrhosis Ascites presence: with ascites Qualified Code(s): K74.60 - Unspecified cirrhosis of liver; R18.8 - Other ascites (7) Anemia of other chronic disease Current Visit: Yes Status: Chronic Plan: * Chronic, worsening hemoglobin 8.5 hematocrit 25.1today * Ordered one unit PRBC today, Ordered by Dr. Gotti. * GI doctor Dr. Tucker consulted already, tp f/u with GI outpatient as well. * Will recheck the hemoglobin tomorrow morning Shortness of breath * Continued shortness of breath at rest. On oxygen 2 L/min, patient not in distress * Started on ceftriaxone 1 g every 24 hours * Will continue to monitor Discharge Plan: Home Plan to discharge in: 24 Hours - Code Status/Comfort Care Code Status Assessed: Yes (Full code) Code Status: Full Code Physician Review: Patient Assessed, Agree with Above Assessment and Plan Critical Care: No Time Spent Managing PTS Care (In Minutes): 35 (minutes) <Belle Milligan - Last Filed: 08/25/23 13:37> Clinically, he appears to be short of breath; however, he states that the paracentesis helped. He states that he is not willing to be discharged while he is on oxygen as he will not use this at home. He remains on 0.5 L nasal cannula this morning, will attempt to wean to room air as tolerated. <Dangelo Gotti - Last Filed: 08/25/23 17:22>
[2023-08-25] MEDS: ATORVASTATIN 20 MG TAB PO SCH (20:07)
[2023-08-25] MEDS: DOCUSATE NA 100 MG CAP PO SCH (20:07)
[2023-08-26] MEDS: ALBUTEROL 2.5 MG/3 ML NEB SOL NEB SCH ×4 (02:00→19:45)
[2023-08-26] MEDS: HYDROCODONE/APAP 5/325 MG TAB PO PRN (05:39)
--- NOTE | 2023-08-26 07:53 | P.PN ---
Date of Service: 08/26/23 [facility] Live Progress Note Patient Name: DINO CARDOZA Date of : 1960 Patient Status: Inpatient Attending Provider: Dangelo Gotti Date: 08/24/23 Initialization Date: 08/25/23 Subjective Date of Service: 08/26/23 Primary Care Provider: Dr. Lennon Chief Complaint: Ascitis, Cirrhosis of Liver, Dyspnea Patient is alert oriented x3 Oxygen 2 L/min via nasal cannula no respiratory distress noted Short of breath with exertion Discussed with nursing staff Ordered analgesics oral Patient received a unit of blood yesterday Patient denies palpitation, chest pain or discomfort Date of Service: 08/26/23 Review of Systems 10-point ROS is otherwise unremarkable General: Unremarkable Eyes: Other (Pain on the back) ENT: Unremarkable Respiratory: Shortness of Breath, Other Cardiovascular: Other Gastrointestinal: Distention, Other (Ascites) Musculoskeletal: Back Pain Integumentary: Rash (Ecchymosis spots on both arms) Neurological: Weakness Physical Examination - Vital Signs Temp: 98 2, heart rate 78, breathing 8, blood pressure 148/69, SPO2 97% - Physical Exam General: Alert, In no apparent distress, Oriented x3 HEENT: Atraumatic, Normocephalic, PERRLA Neck: 2+ carotid pulse no bruit, JVD not distended Respiratory: Clear to auscultation bilaterally, Diminished (bases) Cardiovascular: No edema, Normal pulses, Regular rate/rhythm, Normal S1 S2 Capillary refill: <2 Seconds Gastrointestinal: Normal bowel sounds, Soft and benign, No tenderness, No masses, No rebound, No guarding, Other, Distended, Ascites Musculoskeletal: No swelling, No contractures, No erythema, No tenderness, No warmth Integumentary: No rashes, No breakdown, No significant lesion, No tenderness/swelling, No erythema, No warmth, No cyanosis Neurological: Normal speech, Normal strength at 5/5 x4 extr, Sensation intact, Cranial nerves 3-12 intact, Normal reflexes 2+ Assessment And Plan - Current Problems (Diagnosis) (1) CAD (coronary artery disease) Current Visit: Yes Status: Chronic Plan: * Chronic, controlled on Plavix 75 mg p.o. daily. Patient denies chest pain or discomfort * Admit the patient. Continuous telemetry monitoring * Resume home medication * Cardiac diet Qualifiers: Coronary Disease-Associated Artery/Lesion type: augustine artery [place] vs. transplanted heart: augustine heart Associated angina: without angina Qualified Code(s): I25.10 - Atherosclerotic heart disease of augustine coronary artery without angina pectoris (2) Ascites Current Visit: No Status: Chronic Plan: * Chronic. Improving. Had Paracentesis, in the ER due to increasing shortness of breath at rest * Patient is on Spironolactone 100 mg PO DAILY and Furosemide 40 mg PO daily * Abdominal tapping was done in the ER 08/24/2023 removed approximately 5 L fluid, patient tolerated the procedure * Vital signs are stable * Will continue to monitor the electrolytes and replace as per protocol * Monitor the patient closely, O2 2 L/min for shortness of breath and oxygen saturations less than 92% * Albuterol inhalation as needed for shortness of breath Qualifiers: Ascites type: other type Qualified Code(s): R18.8 - Other ascites (3) Pleural effusion, right Current Visit: No Status: Acute Plan: * Acute, improving, with CONRAD, stable * On oxygen 2 L of oxygen through nasal cannula * Patient had a paracentesis on 08/24/2023 in the emergency room 1 L removed * Patient felt better after abdominal tapping * Continue to monitor the patient closely, oxygen 2 L via nasal cannula prn for increased shortness of breath or SPO2 below 92% * Albuterol inhalation every 6 hours scheduled and as needed for shortness breath * Follow-up with the cash shortage investigator Dr. Maciel after discharge (4) HTN (hypertension) Current Visit: No Status: Chronic Plan: * Chronic, controlled on amlodipine 10 mg p.o. daily and lisinopril 20 mg p.o. daily * Blood pressure has come down after the paracentesis, * GFR 96 * Admitting the patient in the hospital, telemetry monitoring, * Monitor the blood pressure call for blood pressure sustained above 160/90 * Resume home medications Qualifiers: Hypertension type: primary hypertension Qualified Code(s): I10 - Essential (primary) hypertension (5) Hepatitis C Current Visit: No Status: Chronic Plan: Chronic, Continue to monitor Qualifiers: Viral hepatitis chronicity: chronic Hepatic coma status: without hepatic coma Qualified Code(s): B18.2 - Chronic viral hepatitis C (6) Liver cirrhosis Current Visit: No Status: Chronic Plan: * Chronic, AST 40, albumin 2.9 * Patient reports that his name fell out of transplant list in [place] and patient is planning to register to another hospital for possible transplant * Continue supportive treatment Qualifiers: Hepatic cirrhosis type: unspecified hepatic cirrhosis Ascites presence: with ascites Qualified Code(s): K74.60 - Unspecified cirrhosis of liver; R18.8 - Other ascites (7) Anemia of other chronic disease Current Visit: Yes Status: Chronic Plan: * Chronic, worsening hemoglobin 8.5 hematocrit 25.1today * Ordered one unit PRBC today, Ordered by Dr. Gotti. * GI doctor Dr. Tucker consulted already, tp f/u with GI outpatient as well. * Will recheck the hemoglobin tomorrow morning Shortness of breath * Continued shortness of breath at rest. On oxygen 2 L/min, patient not in distress * Started on ceftriaxone 1 g every 24 hours * Will continue to monitor Discharge Plan: Home Plan to discharge in: 24 Hours - Code Status/Comfort Care Code Status Assessed: Yes (Full code) Code Status: Full Code Physician Review: Patient Assessed, Agree with Above Assessment and Plan Critical Care: No Time Spent Managing PTS Care (In Minutes): 35 (minutes)
[2023-08-26] MEDS: DOCUSATE NA 100 MG CAP PO SCH ×2 (08:36→21:30)
[2023-08-26] MEDS: FUROSEMIDE 40 MG/4 ML VIAL IV SCH ×2 (08:39→16:34)
[2023-08-26] MEDS: SPIRONOLACTONE 100 MG TAB PO SCH (08:39)
[2023-08-26] MEDS: lisinopriL 20 MG TAB PO SCH (08:39)
[2023-08-26] MEDS: CEFTRIAXONE 1,000 MG in NA CHLORIDE 0.9% 50 ML IVPB SCH (08:39)
[2023-08-26] MEDS: ENOXAPARIN 40 MG/0.4 ML SQ SCH (08:39)
[2023-08-26] MEDS: AMLODIPINE 5 MG TAB PO SCH (08:41)
--- NOTE | 2023-08-26 12:40 | P.PN ---
Subjective Date of Service: 08/25/23 Primary Care Provider: Dangelo Monahan Chief Complaint: Ascitis, Cirrhosis of Liver, Dyspnea Subjective: Improving (Patient is improving today as he is s/p thoracentesis and repeat paracentesis) Review of Systems General: Weakness Respiratory: Shortness of Breath Physical Examination - Vital Signs Temperature: 98.1 F Blood Pressure: 133/67 Pulse: 70 Respirations: 16 Pulse Ox (%): 97 - Physical Exam General: Alert, Oriented x3, Mild distress Respiratory: Clear to auscultation bilaterally, Diminished (Managed on the right side) Cardiovascular: Regular rate/rhythm, Edema Assessment And Plan - Current Problems (Diagnosis) (1) Pleural effusion Current Visit: Yes Status: Chronic Plan: Patient is 62 years of age admitted with 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
[2023-08-26] MEDS: ATORVASTATIN 20 MG TAB PO SCH (21:30)
[2023-08-27] MEDS: ALBUTEROL 2.5 MG/3 ML NEB SOL NEB SCH ×4 (01:45→20:45)
[2023-08-27 07:20] LABS: LD, PLEURAL FLUID 16 U/L
[2023-08-27] MEDS: DOCUSATE NA 100 MG CAP PO SCH ×2 (09:00→19:28)
[2023-08-27] MEDS: lisinopriL 20 MG TAB PO SCH (09:02)
[2023-08-27] MEDS: FUROSEMIDE 40 MG/4 ML VIAL IV SCH ×2 (09:02→16:40)
[2023-08-27] MEDS: SPIRONOLACTONE 100 MG TAB PO SCH (09:02)
[2023-08-27] MEDS: CEFTRIAXONE 1,000 MG in NA CHLORIDE 0.9% 50 ML IVPB SCH (09:03)
[2023-08-27] MEDS: AMLODIPINE 5 MG TAB PO SCH (09:03)
[2023-08-27] MEDS: ENOXAPARIN 40 MG/0.4 ML SQ SCH (09:04)
[2023-08-27 13:01] LABS: CHOLESTEROL, PLEURAL FLUID REPORT
[2023-08-27 13:53] LABS: Albumin 2.5 g/dL (3.4-5.0); Bilirubin Total 0.3 mg/dL (0.2-1.0); Magnesium 2.1 mg/dL (1.6-2.4); Protein, Total 6.6 g/dL (6.4-8.2)
[2023-08-27] MEDS: HYDROCODONE/APAP 5/325 MG TAB PO PRN ×2 (17:28→22:32)
[2023-08-27 17:45] LABS: Absolute Lymphocytes (CBC) 0.5 K/uL (0.7-4.9); Hematocrit 24.4 % (39.6-49.0); Lymphocytes % 10.1 % (15.3-44.8); MPV 7.7 fL (7.6-11.3); Platelets 123 thou/uL (152-406); RBC Red Blood Cell Count 2.59 M/uL (4.33-5.43)
[2023-08-27] MEDS: ATORVASTATIN 20 MG TAB PO SCH (19:46)
[2023-08-28] MEDS: ALBUTEROL 2.5 MG/3 ML NEB SOL NEB SCH ×3 (01:55→08:00)
[2023-08-28] MEDS: HYDROCODONE/APAP 5/325 MG TAB PO PRN (03:57)
[2023-08-28 04:32] VITALS: BMI 25.0
[2023-08-28 08:34] VITALS: BP 126/69; TEMP 97.1
[2023-08-28] MEDS: ENOXAPARIN 40 MG/0.4 ML SQ SCH (09:00)
[2023-08-28] MEDS: AMLODIPINE 5 MG TAB PO SCH (09:01)
[2023-08-28] MEDS: DOCUSATE NA 100 MG CAP PO SCH (09:01)
[2023-08-28] MEDS: FUROSEMIDE 40 MG/4 ML VIAL IV SCH (09:01)
[2023-08-28] MEDS: lisinopriL 20 MG TAB PO SCH (09:01)
[2023-08-28 09:44] VITALS: O2SAT 93
== END 2023-08-28 10:55 | disposition home or self-care (01) | DRG 433 ==
LOC: ER 12:54 → ERHOLD 17:25 → 4TH 19:01
PROVIDERS: ADMIT Internal Medicine; ATTEND Hospitalist
PROC: 0W9G3ZZ Drainage of Peritoneal Cavity, Percutaneous Approach (ICD-10-PCS; principal; 2023-08-20)
PROC: 0W993ZZ Drainage of Right Pleural Cavity, Percutaneous Approach (ICD-10-PCS; 2023-08-22)
PROC: 30233N1 Transfusion of Nonautologous Red Blood Cells into Peripheral Vein, Percutaneous Approach (ICD-10-PCS; 2023-08-23)
DX: K74.60 Unspecified cirrhosis of liver (principal); J91.8 Pleural effusion in other conditions classified elsewhere; R18.8 Other ascites; R64 Cachexia; I10 Essential (primary) hypertension; K72.10 Chronic hepatic failure without coma; H91.91 Unspecified hearing loss, right ear; G89.29 Other chronic pain; M54.9 Dorsalgia, unspecified; D63.8 Anemia in other chronic diseases classified elsewhere; I25.10 Atherosclerotic heart disease of native coronary artery without angina pectoris; B18.2 Chronic viral hepatitis C; F17.200 Nicotine dependence, unspecified, uncomplicated; Z79.02 Long term (current) use of antithrombotics/antiplatelets; Z86.73 Personal history of transient ischemic attack (TIA), and cerebral infarction without residual deficits; Z68.25 Body mass index [BMI] 25.0-25.9, adult; Z79.899 Other long term (current) drug therapy
CPT/HCPCS: 32555; 36415; 71045; 80048; 80053; 80061; 80076; 81001; 82945; 83615; 83735; 83880; 84100; 84311; 84484; 85014; 85018; 85025; 85610; 85730; 86850; 86900; 86901; 86920; 87205; 89050; 93005; 94640; 96374; 96375; 99285; J0696; J1650; J1940; J2270; J2405; J7050; J7613; P9016

== ENCOUNTER → 2023-11-23 | Emergency (ER) | payer OTHER ==
[~2023-11-23] MED LIST: CEFTRIAXONE 1000 MG/VIAL ONE; FAMOTIDINE 20 MG/2 ML VIAL IV ONE; FUROSEMIDE 20 MG/ 2ML VIAL ONE; IPRATROPIUM BROM 0.5MG/2.5ML ONE; LEVALBUTEROL 1.25 MG/3 ML NEB ONE; METHYLPREDNISOLONE 125 MG INJ ONE; MORPHINE 2 MG/ML SYR ONE; NA CHLORIDE 0.9% 1,000 ML ONE; ONDANSETRON 4 MG/2 ML VIAL ONE
--- NOTE | 2023-11-23 14:36 | RAD REPORT ---
EXAM DESCRIPTION: US - Extrem Venous W Compress Krish - 11/23/2023 2:31 pm CLINICAL HISTORY: Pain;Swelling Bilateral leg edema and swelling. COMPARISON: <Comparisons> TECHNIQUE: Real-time sonographic interrogation of the left and right lower extremity deep venous sys tems was performed. FINDINGS: Normal compressibility, flow augmentation, phasic flow and spontaneous flow is identified in both the left and right lower extremity deep venous systems. IMPRESSION: No sonographic evidence of left or right lower extremity deep venous thrombosis.
[2023-11-23 14:48] LABS: Protime INR 1.08
[2023-11-23 14:52] LABS: Absolute Lymphocytes (CBC) 0.5 K/uL (0.7-4.9); Lymphocytes % 12.7 % (15.3-44.8); MCV 90.4 fL (80-100); MPV 6.4 fL (7.6-11.3); Platelets 121 thou/uL (152-406); RBC Red Blood Cell Count 3.21 M/uL (4.33-5.43)
[2023-11-23 14:59] LABS: Albumin 2.8 g/dL (3.4-5.0); Bilirubin Direct 0.1 mg/dL (0-0.2); Bilirubin Indirect, Calculated 0.2 mg/dL (0.2-0.8); Bilirubin Total 0.3 mg/dL (0.2-1.0); Magnesium 2.2 mg/dL (1.6-2.4); Potassium 4.5 mEq/L (3.5-5.1); Protein, Total 7.6 g/dL (6.4-8.2); Troponin High Sensitivity 13.7 pg/mL (<58.9)
--- NOTE | 2023-11-23 15:08 | RAD REPORT ---
EXAM DESCRIPTION: Louis Single View11/23/2023 2:49 pm CLINICAL HISTORY: Cough COMPARISON: August 2023 and 2021 FINDINGS: No change in the appearance of the opacification the right hemithorax representing a large pleural effusion Left lung appears clear of acute infiltrate The heart is normal size
--- NOTE | 2023-11-23 15:51 | ER ---
Nurse's Notes [facility] Name: Blaise Renee Age: 63 yrs Sex: Male : 1960 Arrival Date: 11/23/2023 Time: 13:01 Bed 16 Private MD: Diagnosis: Pleural effusion in other conditions classified elsewhere-LARGE RIGHT, TOTAL OPACIFICATION ;Other ascites-TENSE;Dyspnea;Edema, unspecified;Other cirrhosis of liver Presentation: 11/23 13:16 Chief complaint: Patient states: Shortness of breath for 2 weeks, getting worse. Seen nj1 PCP yesterday, advised to come to ED for possible blood clot in right leg. Has had blood clots in the past. Coronavirus screen: Vaccine status: Patient reports being unvaccinated. Ebola Screen: Patient denies travel to an Ebola-affected area in the 21 days before illness onset. Initial Sepsis Screen: Does the patient meet any 2 criteria? No. Patient's initial sepsis screen is negative. Does the patient have a suspected source of infection? No. Patient's initial sepsis screen is negative. Risk Assessment: Do you want to hurt yourself or someone else? Patient reports no desire to harm self or others. Onset of symptoms was November 2023. 13:16 Method Of Arrival: Ambulatory [facility] 13:16 Acuity: TRICIA 3 [facility] Historical: - Allergies: 13:18 No Known Allergies; nj1 - PMHx: 13:18 Cirrhosis; Hepatitis; Hypertension; nj1 - Immunization history:: Client reports having NOT received the Covid vaccine. - Social history:: Smoking status: Patient denies any tobacco usage or history of. Screenin:04 [facility] ED Fall Risk Assessment (Adult) History of falling in the last 3 months, kc6 including since admission No falls in past 3 months (0 pts) Confusion or Disorientation No (0 pts) Intoxicated or Sedated No (0 pts) Impaired Gait No (0 pts) Mobility Assist Device Used No (0 pt) Altered Elimination No (0 pt) Score/Fall Risk Level 0 - 2 = Low Risk. Abuse screen: Denies threats or abuse. Denies injuries from another. Nutritional screening: No deficits noted. Tuberculosis screening: No symptoms or risk factors identified. Assessment: 14:05 General: Appears in no apparent distress. uncomfortable, well groomed, well developed, kc6 Behavior is calm, cooperative, appropriate for age. Pain: Denies pain. Cardiovascular: Denies chest pain, Heart tones S1 S2 present Capillary refill < 3 seconds Rhythm is sinus rhythm. Respiratory: Reports shortness of breath at rest on exertion Airway is patent Trachea midline Respiratory effort is even, labored, pursed lip, using tripod position, Respiratory pattern is symmetrical, Breath sounds with wheezes bilaterally. GI: Abdomen is round noted to have ascites. : No signs and/or symptoms were reported regarding the genitourinary system. EENT: No signs and/or symptoms were reported regarding the EENT system. Derm: No signs and/or symptoms reported regarding the dermatologic system. Skin is intact, is healthy with good turgor, Skin is pink, warm \T\ dry. Musculoskeletal: No signs and/or symptoms reported regarding the musculoskeletal system. Circulation, motion, and sensation intact. Capillary refill < 3 seconds, Range of motion: intact in all extremities. 15:28 Reassessment: Patient appears in no apparent distress at this time. No changes from [facility] previously documented assessment. Patient and/or family updated on plan of care and expected duration. Pain level reassessed. Patient is alert, oriented x 3, equal unlabored respirations, skin warm/dry/pink. 17:01 Reassessment: Patient appears in no apparent distress at this time. No changes from 6 previously documented assessment. Patient and/or family updated on plan of care and expected duration. Pain level reassessed. Patient is alert, oriented x 3, equal unlabored respirations, skin warm/dry/pink. Vital Signs: 13:16 BP 157 / 97; Pulse 82; Resp 20; Temp 97.5(TE); Pulse Ox 99% ; Weight 80.29 kg; Height 5 nj1 ft. 7 in. ; 14:06 BP 190 / 83; Pulse 76; Resp 24 S; Pulse Ox 98% on R/A; kc6 15:28 BP 172 / 84; Pulse 76; Resp 27 S; Pulse Ox 96% on R/A; kc6 17:01 BP 167 / 93; Pulse 85; Resp 20 S; Pulse Ox 98% on 2 lpm NC; kc6 17:37 BP 181 / 97; Pulse 79; Resp 20 S; Pulse Ox 98% on 2 lpm NC; kc6 13:16 Body Mass Index 27.72 (80.29 kg, 170.18 cm) nj1 ED Course: 13:04 Patient arrived in ED. ts1 13:18 Triage completed. nj1 13:19 Arm band placed on left wrist. nj1 13:21 Shaylee Reed, THERESE is Primary Nurse. kc6 13:34 Tommie Aparicio MD is Attending Physician. johann 13:40 Missed attempt(s): 20 gauge in left forearm. Patient maintains SpO2 saturation greater kc6 than 95% on room air. 14:05 Patient has correct armband on for positive identification. Bed in low position. Call kc6 light in reach. Side rails up X2. Adult w/ patient. Client placed on continuous cardiac and pulse oximetry monitoring. NIBP monitoring applied. playground monitor on. 14:32 US Extremity Venous W Compression Krish In Process Unspecified. EDMS 14:32 Inserted saline lock: 22 gauge in right wrist, using aseptic technique. Blood collected.hb 14:50 XRAY Chest (1 view) In Process Unspecified. EDMS 15:41 initiated a transfer with GABRIEL Martin from the [facility]. eb 16:[address] Agatha Lennon the hospitalist cone baker machine for [facility] with Dr. Aparicio eb for patient transfer consultation. 16:08 administrative approval given by GABRIEL Martin / patient has been accepted to [facility] 24T bed 2442/ Dr. Agatha Lennon has accepted the patient in transfer/ report to be called to [phone]. 16:17 [facility] called for transport they do not have a truck available/ [facility] called for transport eta 1 hr 15 min. 16:[address] Aparicio with Narda from the [facility] Transfer Center at the request of the patient/ he refuses to go to [facility]. 16:57 administrative approval given by Vianca Goodwin / patient has been accepted to [facility] 10A 1002/ Dr. Oliver Soto has accepted the patient in transfer/ report to be called to [phone]. 17:45 No provider procedures requiring assistance completed. Patient transferred, IV remains kc6 in place. Administered Medications: 14:49 Drug: NS 0.9% IV 1000 ml IV at 75 ml/hr continuous Route: IV; Rate: 75 ml/hr; Site: kc6 right wrist; 17:37 Follow up: Response: No adverse reaction; IV Status: Infusion continued upon transfer; [facility] IV Intake: 1000ml 16:02 Drug: Famotidine IVP 20 mg IVP once; dilute with 10 mL 0.9% NaCl; give over 2 minutes kc6 Route: IVP; Site: right wrist; 16:51 Follow up: Response: No adverse reaction kc6 16:02 Drug: MethylPrednisoLONE IVP 125 mg IVP once Route: IVP; Site: right wrist; kc6 16:51 Follow up: Response: No adverse reaction kc6 16:02 Drug: Levalbuterol Inhalation 2.5 mg Inhalation once Route: Inhalation; kc6 16:51 Follow up: Response: No adverse reaction; Wheezing unchanged kc6 16:03 Drug: Ipratropium Inhalation Aerosol 0.5 mg Inhalation once Route: Inhalation; kc6 16:51 Follow up: Response: No adverse reaction; Wheezing unchanged kc6 16:03 Drug: Furosemide IVP 20 mg IVP once; give over 2 minutes Route: IVP; Site: right wrist; kc6 16:52 Follow up: Response: No adverse reaction kc6 16:03 Drug: Rocephin IV 1 grams IV at per protocol once; Given slow IV push per pharmacy kc6 instructions Route: IV; Rate: per protocol; Site: right wrist; 16:52 Follow up: Response: No adverse reaction; IV Status: Completed infusion; IV Intake: 32yset2 16:59 Drug: morphine IVP or IV 2 mg IVP once over 4 mins Route: IVP; Infused Over: 4 mins; [facility] Site: right wrist; 17:38 Follow up: Response: No adverse reaction; Pain is unchanged, physician notified; RASS: [facility] Alert and Calm (0) 16:59 Drug: Ondansetron IVP 4 mg IVP once; over 2 minutes Route: IVP; Site: right wrist; kc6 17:38 Follow up: Response: No adverse reaction 6 17:01 CANCELLED (Duplicate Order): morphineor iv 2 mg IVP once over 4 mins kc6 17:31 Drug: morphine IVP or IV 2 mg IVP once over 4 mins Route: IVP; Infused Over: 4 mins; [facility] Site: right wrist; 17:38 Follow up: Response: No adverse reaction kc6 17:31 Drug: Ondansetron IVP 4 mg IVP once; over 2 minutes Route: IVP; Site: right wrist; kc6 17:38 Follow up: Response: No adverse reaction kc6 Intake: 16:52 IV: 10ml; Total: 10ml. kc6 17:37 IV: 1000ml; Total: 1010ml. kc6 Outcome: 15:50 ER care complete, transfer ordered by MD. wills 17:45 Patient left the ED. Signatures: Dispatcher [employer] EDTommie Harper MD MD cha Baxter, Heather, RN RN Tiesha Ramon Kaitlyn RN RN kc6 Darlene Bowers RN RN nj1 Sienna Galarza PAS PAS ts1
--- NOTE | 2023-11-23 15:51 | EDPHYS ---
Physician Documentation [facility] Name: Blaise Renee Age: 63 yrs Sex: Male : 1960 Arrival Date: 11/23/2023 Time: 13:01 Bed 16 Private MD: ED Physician Tommie Aparicio HPI: 11/23 15:40 This 63 yrs old Male presents to ER via Ambulatory with complaints of Fluid johann build up, Shortness Of Breath, poss clot in leg. 15:40 The patient has shortness of breath at rest, with light activity. Onset: The johann symptoms/episode began/occurred 3 day(s) ago. Duration: The symptoms are continuous, and are steadily getting worse. The patient's shortness of breath is aggravated by exertion, light activity, supine position, is alleviated by elevating head, rest, sitting up, application of supplemental oxygen. Associated signs and symptoms: The patient has no apparent associated signs or symptoms. The patient has experienced similar episodes in the past, multiple times. Historical: - Allergies: 13:18 No Known Allergies; nj1 - PMHx: 13:18 Cirrhosis; Hepatitis; Hypertension; nj1 - Immunization history:: Client reports having NOT received the Covid vaccine. - Social history:: Smoking status: Patient denies any tobacco usage or history of. ROS: 15:41 Constitutional: Negative for fever, chills, and weight loss, Eyes: Negative for injury, johann pain, redness, and discharge, ENT: Negative for injury, pain, and discharge, Neck: Negative for injury, pain, and swelling, Back: Negative for injury and pain, : Negative for injury, bleeding, discharge, and swelling, Neuro: Negative for headache, weakness, numbness, tingling, and seizure, Psych: Negative for depression, anxiety, suicide ideation, homicidal ideation, and hallucinations, Allergy/Immunology: Negative for hives, rash, and allergies, Endocrine: Negative for neck swelling, polydipsia, polyuria, polyphagia, and marked weight changes, Hematologic/Lymphatic: Negative for swollen nodes, abnormal bleeding, and unusual bruising, 15:41 Cardiovascular: Positive for edema, orthopnea, 15:41 Respiratory: Positive for cough, dyspnea on exertion, orthopnea, shortness of breath, at rest. wheezing, expiratory, 15:41 Abdomen/GI: Positive for abdominal distension, 15:41 MS/extremity: Positive for swelling, of the right leg and left leg, 15:41 Neuro: Positive for weakness, Exam: 15:41 Head/Face: Normocephalic, atraumatic. Eyes: Pupils equal round and reactive to light, johann extra-ocular motions intact. Lids and lashes normal. Conjunctiva and sclera are non-icteric and not injected. Cornea within normal limits. Periorbital areas with no swelling, redness, or edema. ENT: Nares patent. No nasal discharge, no septal abnormalities noted. Tympanic membranes are normal and external auditory canals are clear. Oropharynx with no redness, swelling, or masses, exudates, or evidence of obstruction, uvula midline. Mucous membranes moist. Chest/axilla: Normal chest wall appearance and motion. Nontender with no deformity. No lesions are appreciated. Cardiovascular: Regular rate and rhythm with a normal S1 and S2. No gallops, murmurs, or rubs. Normal PMI, no JVD. No pulse deficits. Back: No spinal tenderness. No costovertebral tenderness. Full range of motion. Male : Normal genitalia with no discharge or lesions. Skin: Warm, dry with normal turgor. Normal color with no rashes, no lesions, and no evidence of cellulitis. MS/ Extremity: Pulses equal, no cyanosis. Neurovascular intact. Full, normal range of motion. Neuro: Awake and alert, GCS 15, oriented to person, place, time, and situation. Cranial nerves II-XII grossly intact. Motor strength 5/5 in all extremities. Sensory grossly intact. Cerebellar exam normal. Normal gait. Psych: Awake, alert, with orientation to person, place and time. Behavior, mood, and affect are within normal limits. 15:41 Constitutional: The patient appears in obvious distress, mildly distressed, 15:41 Cardiovascular: Rate: normal, Rhythm: regular, JVD: is noted bilaterally, to 3 cm, 15:41 ECG was reviewed by the Attending Physician. 15:41 Respiratory: mild respiratory distress is noted, Respirations: labored breathing, that is mild, Breath sounds: bronchial sounds, decreased breath sounds, that are moderate, are heard in the right posterior upper lobe, right posterior middle lobe and right posterior lower lobe, rhonchi, that are mild, are scattered, are located in both bases, stridor, is not appreciated, + upper airway congestion. wheezing: inspiratory expiratory is heard diffusely, is heard in the left posterior upper lobe and left posterior lower lobe, Respiratory rate: 22 Vital Signs: 13:16 BP 157 / 97; Pulse 82; Resp 20; Temp 97.5(TE); Pulse Ox 99% ; Weight 80.29 kg; Height 5 nj1 ft. 7 in. ; 14:06 BP 190 / 83; Pulse 76; Resp 24 S; Pulse Ox 98% on R/A; kc6 15:28 BP 172 / 84; Pulse 76; Resp 27 S; Pulse Ox 96% on R/A; kc6 17:01 BP 167 / 93; Pulse 85; Resp 20 S; Pulse Ox 98% on 2 lpm NC; kc6 17:37 BP 181 / 97; Pulse 79; Resp 20 S; Pulse Ox 98% on 2 lpm NC; kc6 13:16 Body Mass Index 27.72 (80.29 kg, 170.18 cm) nj1 MDM: 13:34 Patient medically screened. johann 15:45 Differential diagnosis: CHF exacerbation, Chronic Obstructive Pulmonary Disease johann pneumonia, pulmonary edema, Pulmonary Embolism reactive airway disease, Sepsis Unstable Angina bowel obstruction, Cholelithiasis, diverticulitis, gastritis, Hepatitis, non-specific abd pain, pancreatitis, Peptic Ulcer Disease, Peritonitis, Ureterolithiasis, urinary tract infection. Antibiotic administration: ROCEPHIN SBP. Immunization status: Pneumococcal vaccine: within last 5 years. Influenza vaccine: within last 5 years. Data reviewed: vital signs, nurses notes, EMS record, lab test result(s), EKG, radiologic studies, CT scan, plain films. Consideration of Admission/Observation Escalation of care including admission/observation considered. I considered the following discharge prescriptions or medication management in the emergency department Medications were administered in the Emergency Department. See MAR. Independent interpretation of the following test(s) in the Emergency Department EKG: See my EKG interpretation above. Test considered but Not performed: MRI: NO MRI ABD/PELVIS. Care significantly affected by the following chronic conditions: Hypertension, Liver Disease, CIRRHOSIS/HEP C /CIRRHOSIS. Counseling: I had a detailed discussion with the patient and/or guardian regarding the historical points, exam findings, and any diagnostic results supporting the discharge/admit diagnosis, lab results, radiology results, the need to transfer to another facility, for higher level of care, [facility] does not immediately have the required specialist. 11/23 13:35 Order name: Basic Metabolic Panel; Complete Time: 15:34 11/23 13:35 Order name: CBC with Diff; Complete Time: 15:34 11/23 13:35 Order name: LFT's; Complete Time: 15:34 11/23 13:35 Order name: Magnesium; Complete Time: 15:34 11/23 13:35 Order name: NT PRO-BNP; Complete Time: 15:34 11/23 13:35 Order name: PT-INR; Complete Time: 15:34 11/23 13:35 Order name: Troponin HS; Complete Time: 15:34 11/23 13:35 Order name: Lipase; Complete Time: 15:34 11/23 13:35 Order name: AMMONIA; Complete Time: 15:34 11/23 13:35 Order name: XRAY Chest (1 view); Complete Time: 15:34 11/23 13:35 Order name: US Extremity Venous W Compression Krish; Complete Time: 15:34 11/23 13:35 Order name: EKG; Complete Time: 13:36 11/23 13:35 Order name: Cardiac monitoring; Complete Time: 13:40 11/23 13:35 Order name: EKG - Nurse/Tech; Complete Time: 13:40 11/23 13:35 Order name: IV Saline Lock; Complete Time: 14:45 11/23 13:35 Order name: Labs collected and sent; Complete Time: 14:45 11/23 13:35 Order name: O2 Per Protocol; Complete Time: 13:40 11/23 13:35 Order name: O2 Sat Monitoring; Complete Time: 13:40 [facility] EC:41 Rate is 78 beats/min. Rhythm is regular. QRS [place] is Normal. VA interval is normal. QRS johann interval is normal. QT interval is normal. No Q waves. T waves are Normal. No ST changes noted. Clinical impression: NSR w/ Non-specific ST/T Changes and No evidence of ischemia. Interpreted by me. Reviewed by me. Administered Medications: 14:49 Drug: NS 0.9% IV 1000 ml IV at 75 ml/hr continuous Route: IV; Rate: 75 ml/hr; Site: kc6 right wrist; 17:37 Follow up: Response: No adverse reaction; IV Status: Infusion continued upon transfer; kc6 IV Intake: 1000ml 16:02 Drug: Famotidine IVP 20 mg IVP once; dilute with 10 mL 0.9% NaCl; give over 2 minutes kc6 Route: IVP; Site: right wrist; 16:51 Follow up: Response: No adverse reaction kc6 16:02 Drug: MethylPrednisoLONE IVP 125 mg IVP once Route: IVP; Site: right wrist; kc6 16:51 Follow up: Response: No adverse reaction kc6 16:02 Drug: Levalbuterol Inhalation 2.5 mg Inhalation once Route: Inhalation; kc6 16:51 Follow up: Response: No adverse reaction; Wheezing unchanged kc6 16:03 Drug: Ipratropium Inhalation Aerosol 0.5 mg Inhalation once Route: Inhalation; kc6 16:51 Follow up: Response: No adverse reaction; Wheezing unchanged kc6 16:03 Drug: Furosemide IVP 20 mg IVP once; give over 2 minutes Route: IVP; Site: right wrist; kc6 16:52 Follow up: Response: No adverse reaction kc6 16:03 Drug: Rocephin IV 1 grams IV at per protocol once; Given slow IV push per pharmacy kc6 instructions Route: IV; Rate: per protocol; Site: right wrist; 16:52 Follow up: Response: No adverse reaction; IV Status: Completed infusion; IV Intake: [id number] 16:59 Drug: morphine IVP or IV 2 mg IVP once over 4 mins Route: IVP; Infused Over: 4 mins; 6 Site: right wrist; 17:38 Follow up: Response: No adverse reaction; Pain is unchanged, physician notified; RASS: kc6 Alert and Calm (0) 16:59 Drug: Ondansetron IVP 4 mg IVP once; over 2 minutes Route: IVP; Site: right wrist; kc6 17:38 Follow up: Response: No adverse reaction kc6 17:01 CANCELLED (Duplicate Order): morphineor iv 2 mg IVP once over 4 mins kc6 17:31 Drug: morphine IVP or IV 2 mg IVP once over 4 mins Route: IVP; Infused Over: 4 mins; 6 Site: right wrist; 17:38 Follow up: Response: No adverse reaction kc6 17:31 Drug: Ondansetron IVP 4 mg IVP once; over 2 minutes Route: IVP; Site: right wrist; kc6 17:38 Follow up: Response: No adverse reaction kc6 Disposition Summary: 11/23/23 15:50 Transfer Ordered Notes: Reason: Higher level of care johann Condition: Fair johann Problem: new johann Symptoms: have improved johann Transfer Location: [facility](11/23/23 17:13) johann Accepting Physician: FP AT [facility](11/23/23 17:45) Diagnosis - Pleural effusion in other conditions classified elsewhere - LARGE RIGHT, TOTAL johann OPACIFICATION - Other ascites - TENSE johann - Dyspnea johann - Edema, unspecified johann - Other cirrhosis of liver johann Forms: - Medication Reconciliation Form johann - SBAR form johann Signatures: Dispatcher [employer] EDMS Tommie Aparicio MD MD cha Baxter, Heather RN RN Tiesha Ramon Kaitlyn RN RN kc6 Darlene Bowers RN RN nj1 Corrections: (The following items were deleted from the chart) 16:29 15:50 MEDICINE / LIVER/PULMONARY johann eb 17:01 16:54 morphine IVP or IV 2 mg IVP once over 4 mins ordered. johann kc6 17:01 17:01 morphine IVP or IV 2 mg IVP once over 4 mins ordered. kc6 kc6 17:13 15:50 [facility] johann johann 17:13 16:29 DR.MARIA DOMINGUEZ / [facility] eb [facility] 17:45 17:13 FP AT [facility]
[2023-11-23 18:58] VITALS: TEMP 97.5
[2023-11-23 19:12] VITALS: BP 181/97; O2SAT 98
--- NOTE | 2023-11-25 17:03 | EKG ---
Test Date: 2023-11-23 Test Time: 13:28:08 Sand Analyst: KAITLIN MEASUREMENT RESULTS: Intervals: Rate: 78 NV: 130 QRSD: 78 QT: 398 QTc: 453 [place]: P: 69 NV: 130 QRS: -19 T: 30 INTERPRETIVE STATEMENTS: Normal sinus rhythm Normal ECG Compared to ECG 08/20/2023 13:08:21 Accelerated junctional rhythm no longer present ST (T wave) deviation no longer present Electronically Signed On 11-25-23 16:58:19 EDI MANAGER by Luís Velasco
== END ==
LOC: ER 13:01
DX: R06.00 Dyspnea, unspecified (principal); J91.8 Pleural effusion in other conditions classified elsewhere; R18.8 Other ascites; K74.69 Other cirrhosis of liver; R53.1 Weakness; Z28.310 Unvaccinated for COVID-19
CPT/HCPCS: 96365; 96361; 93005; 85025; 80048; 36415; 82140; 83735; 85610; 80076; 84484; 83690; 83880; 71045; 93970; 96375; 99285; J1940; J7614; J7644; J2270 ×2; J2930; J2405 ×2; J7030; J0696

== ENCOUNTER 2024-02-08 16:05 | Emergency (ER) | payer OTHER ==
[2024-02-08 17:12] LABS: PT Prothrombin Time 14.2 SECONDS (9.5-12.5); Protime INR 1.3
[2024-02-08 17:15] LABS: Absolute Lymphocytes (CBC) 0.5 K/uL (0.7-4.9); Absolute Monocytes 0.4 K/uL (0.1-1.3); Absolute Neutrophil 4.4 K/uL (1.8-8.0); Basophils % 0.8 % (0-1.3); Eosinophils % 0.1 % (0-4.4); Hematocrit 19.8 % (39.6-49.0); Hemoglobin 6.6 g/dL (13.6-17.9); Lymphocytes % 9.7 % (15.3-44.8); MCHC 33.2 g/dL (32.0-36.0); MCV 87.3 fL (80-100); MPV 7.3 fL (7.6-11.3); Monocytes % 7.6 % (3.3-12.3); Neutrophils % 81.8 % (41.7-73.7); Nucleated Red Blood Cells % 0.2 % (0-0); Platelets 117 thou/uL (152-406); RBC Red Blood Cell Count 2.27 M/uL (4.33-5.43); Red Cell Distribution Width 19.5 % (12.1-15.2)
[2024-02-08 17:29] LABS: ALT/SGPT 31 U/L (16-61); AST/SGOT 35 U/L (15-37); Albumin 2.5 g/dL (3.4-5.0); Albumin/Globulin Ratio 0.7 (1.1-1.8); Alkaline Phosphatase 64 U/L (45-117); Anion Gap 11.5 mEq/L (5.0-15.0); BUN Blood Urea Nitrogen 68 mg/dL (7-18); Bicarbonate 20 mEq/L (21-32); Bilirubin Total 0.3 mg/dL (0.2-1.0); Globulin 3.6 g/dL (2.3-3.5); Glomerular Filtration Rate 68 ml/min (=/>90); Glucose Level 136 mg/dL (74-106); Magnesium 1.8 mg/dL (1.6-2.4); NT PRO-BNP 1006 pg/mL (<125); Potassium 5.5 mEq/L (3.5-5.1); Protein, Total 6.1 g/dL (6.4-8.2); Sodium Level 141 mEq/L (136-145)
[2024-02-08 17:32] LABS: Bilirubin Direct < 0.1 mg/dL (0-0.2); Bilirubin Indirect, Calculated ND mg/dL (0.2-0.8)
[2024-02-08] MEDS ORDERED: PANTOPRAZOLE 40 MG INJ ONE ×2 (18:00→20:05)
[2024-02-08] MEDS ORDERED: MORPHINE 4 MG/ML SYR ONE (18:50)
[2024-02-08] MEDS ORDERED: ONDANSETRON 4 MG/2 ML VIAL ONE ×2 (18:57→19:53)
[2024-02-08] MEDS ORDERED: NA CHLORIDE 0.9% 250 ML ONE ×2 (19:22→20:05)
[2024-02-08] MEDS ORDERED: OCTREOTIDE ACETATE 100 MCG/ML ONE (19:39)
[2024-02-08] MEDS ORDERED: OCTREOTIDE ACETATE 500 MCG/ML ONE (19:40)
[2024-02-08] MEDS ORDERED: NA CHLORIDE 0.9% 500 ML ONE (19:40)
--- NOTE | 2024-02-08 19:48 | RAD REPORT ---
EXAM DESCRIPTION: CT - Chest Abdomen Pelvis W Cont - 02/08/2024 7:17 pm CLINICAL HISTORY: Chest and abdominal pain shortness of breath COMPARISON: 2020 CT abdomen TECHNIQUE: Computed axial tomography of the chest, abdomen and pelvis was obtained. 100 cc Isovue-30 0 was administered intravenously. Oral contrast was not requested. This limits evaluation of bowel. All CT scans are performed using dose optimization technique as appropriate and may include automated exposure control or mA/KV adjustment according to patient size. FINDINGS: A very large loculated right pleural effusion. Fluid extends into the posterior mediastinu m. Passive atelectasis right lung. Left lung clear No mediastinal or hilar lymphadenopathy noted. No pericardial effusion Cirrhotic liver. Distended portal vein. Abdominal varices. Spleen 21 centimeters. Gallstones. Gallbladder wall does not appear thickened. Small nonobstructing left renal calculus. Pancreas, adrenals and right kidney unremarkable No evidence of diverticulitis Small to moderate amount of ascites. Postsurgical changes right hip IMPRESSION: Very large loculated right pleural effusion Cirrhosis with marked splenomegaly
[2024-02-08] MEDS ORDERED: ALBUTEROL 2.5 MG/3 ML NEB SOL ONE (20:13)
[2024-02-08] MEDS ORDERED: FUROSEMIDE 40 MG/4 ML VIAL ONE (20:13)
[2024-02-08] MEDS ORDERED: CEFTRIAXONE 1000 MG/VIAL ONE (21:11)
--- NOTE | 2024-02-08 21:38 | EDPHYS ---
Physician Documentation [facility] Name: Blaise Renee Age: 63 yrs Sex: Male : 1960 Arrival Date: 02/08/2024 Time: 16:05 Bed 5 Private MD: ED Physician Uriah Moise HPI: 02/07 18:04 This 63 yrs old Male presents to ER via EMS with complaints of Shortness Of Breath, sb4 Abdominal Pain. 18:04 Patient presents with abdominal distention, shortness of breath, and dark stools. He is sb4 on Eliquis. Noted to be pale with a distended abdomen on examination. He has no other complaints at this time. Historical: - Allergies: 16:17 No Known Allergies; db - PMHx: 16:17 Cirrhosis; Hepatitis; Hypertension; db - Immunization history:: Adult Immunizations unknown. - Social history:: Smoking status: Patient denies any tobacco usage or history of. ROS: 18:04 Constitutional: Negative for fever, chills, and weight loss, sb4 18:04 Respiratory: Positive for shortness of breath, 18:04 Abdomen/GI: Positive for abdominal pain, abdominal distension, black/tarry stool, 18:04 All other systems are negative, Exam: 18:04 Head/Face: Normocephalic, atraumatic. Eyes: Extra-ocular motions intact. Periorbital sb4 areas with no swelling, redness, or edema. ENT: Mucous membranes moist. Cardiovascular: Regular rate and rhythm with a normal S1 and S2. Respiratory: Lungs have equal breath sounds bilaterally, clear to auscultation and percussion. No rales, rhonchi or wheezes noted. No increased work of breathing, no retractions or nasal flaring. MS/ Extremity: Pulses equal, no cyanosis. Neurovascular intact. Full, normal range of motion. Neuro: Awake and alert, GCS 15, oriented to person, place, time, and situation. Motor strength 5/5 in all extremities. Sensory grossly intact. 18:04 Constitutional: The patient appears alert, awake, pale, 18:04 Abdomen/GI: Inspection: distension, that is moderate, Bowel sounds: normal, Palpation: nontender, Vital Signs: 16:08 BP 163 / 87; Pulse 99; Resp 24; Temp 98.7(O); Pulse Ox 97% on R/A; Weight 83.91 kg; db Height 5 ft. 7 in. ; 16:30 BP 157 / 79; Pulse 95; Resp 18; Pulse Ox 95% on R/A; db 17:00 BP 172 / 84; Pulse 96; Resp 26; Pulse Ox 97% on R/A; db 19:28 BP 171 / 72; Pulse 90; Resp 20; Pulse Ox 95% on R/A; mb9 19:35 BP 171 / 72; Pulse 93; Resp 20; Temp 97.8; Pulse Ox 100% ; mb9 19:40 BP 161 / 79; Pulse 86; Resp 20; Temp 97.7; Pulse Ox 98% on R/A; mb9 20:40 BP 173 / 71; Pulse 92; Resp 22; Pulse Ox 97% on 2 lpm NC; mb9 21:20 BP 164 / 71; Pulse 95; Resp 20; Temp 97.7; Pulse Ox 97% on R/A; mb9 21:25 BP 157 / 77; Pulse 98; Resp 20; Pulse Ox 95% ; mb9 21:30 BP 154 / 74; Pulse 92; Resp 20; Temp 97.7; Pulse Ox 99% ; mb9 21:34 BP 171 / 86; Pulse 94; Pulse Ox 96% on R/A; Pain 0/10; tm6 22:00 BP 141 / 76; Pulse 89; Resp 18; Pulse Ox 98% on R/A; cm10 22:30 BP 136 / 78; Pulse 83; Resp 18; Pulse Ox 98% on R/A; cm10 16:08 Body Mass Index 28.97 (83.91 kg, 170.18 cm) db 21:34 Pain Scale: Adult tm6 MDM: 16:23 Patient medically screened. 02/08 10:08 Data reviewed: vital signs, nurses notes, lab test result(s), radiologic studies. sb4 02/07 16:32 Order name: Basic Metabolic Panel; Complete Time: 17:34 sb4 02/07 19:29 Interpretation: Normal except: K 5.5; CL 115; CO2 20; GLUC 136; BUN 68; GFR 68; CA 8.0. cp 02/07 16:32 Order name: CBC with Diff; Complete Time: 17:22 sb4 02/07 20:00 Interpretation: Normal except: RBC 2.27; HGB 6.6; HCT 19.8; PLT 117; RDW 19.5; MPV 7.3; cp KAYCEE% 81.8; LYM% 9.7; LYMA 0.5. 02/07 16:32 Order name: LFT's; Complete Time: 17:34 sb4 02/07 16:32 Order name: Magnesium; Complete Time: 17:34 sb4 02/07 16:32 Order name: NT PRO-BNP; Complete Time: 17:34 sb4 02/07 16:32 Order name: PT-INR; Complete Time: 17:15 sb4 02/07 16:32 Order name: Type And Screen sb4 02/07 18:16 Order name: Packed RBC Leukored EDMS 02/07 19:36 Order name: Ptt, Activated; Complete Time: 20:54 cp 02/07 21:00 Order name: Lactate w/ 2H reflex if indic.; Complete Time: 09:08 cp 02/07 21:00 Order name: Blood Culture Adult (2) cp 02/07 17:35 Order name: CT Chest, Abdomen, Pelvis - W/Contrast; Complete Time: 19:55 sb4 02/07 16:32 Order name: Cardiac monitoring; Complete Time: 16:43 sb4 02/07 16:32 Order name: IV Saline Lock; Complete Time: 17:00 sb4 02/07 16:32 Order name: Labs collected and sent; Complete Time: 17:00 sb4 02/07 16:32 Order name: O2 Per Protocol; Complete Time: 16:43 sb4 02/07 16:32 Order name: O2 Sat Monitoring; Complete Time: 16:43 sb4 EC/30 17:25 Rate is 95 beats/min. Rhythm is regular, Normal Sinus Rhythm. Left axis deviation sb4 noted. NC interval is normal at 136 msec. QRS interval is normal at 80 msec. QT interval is normal at [address] changes noted. Clinical impression: Normal ECG. Interpreted by me. Reviewed by me. Administered Medications: 18:09 Drug: Pantoprazole IVP 40 mg IVP once Route: IVP; Site: right forearm; mb9 18:39 Follow up: Response: No adverse reaction mb9 18:45 Drug: morphine IVP or IV 4 mg IVP once over 4 mins Route: IVP; Infused Over: 4 mins; db Site: right wrist; 20:26 Follow up: Response: No adverse reaction mb9 18:57 Drug: Ondansetron IVP 4 mg IVP once; over 2 minutes Route: IVP; Site: right wrist; db 20:26 Follow up: Response: No adverse reaction mb9 19:50 Drug: SandoSTATIN IV 50 mcg IV at calculated rate once Route: IV; Rate: calculated mb9 rate; Site: left forearm; 19:57 Drug: Octreotide Infusion (50 mcg/hr) - (Octreotide IV 500 mcg, NS 0.9% IV 500 ml) IV mb9 at 50 ml/hr continuous Route: IV; Rate: 50 ml/hr; Site: left forearm; 21:41 Follow up: Response: No adverse reaction; IV Status: Infusion continued upon transfer mb9 19:58 Drug: Ondansetron IVP 4 mg IVP once; over 2 minutes Route: IVP; Site: left forearm; mb9 20:26 Follow up: Response: No adverse reaction mb9 20:05 Drug: Albuterol Inhalation 2.5 mg Inhalation every 20 minutes x3 Route: Inhalation; mb9 20:20 Drug: Albuterol Inhalation 2.5 mg Inhalation every 20 minutes x3 Route: Inhalation; mb9 20:26 Drug: Furosemide IVP 40 mg IVP once; give over 2 minutes Route: IVP; Site: left forearm;mb9 20:40 Follow up: Response: No adverse reaction mb9 20:35 Drug: Pantoprazole IVP 40 mg IVP once Route: IVP; Site: left hand; mb9 21:42 Follow up: Response: No adverse reaction mb9 20:40 Drug: Pantoprazole IV 8 mg/hr IV at 25 ml/hr continuous; (Standard dilution is 80 mg in mb9 250 mL NS) Route: IV; Rate: 25 ml/hr; Site: left hand; 21:41 Follow up: Response: No adverse reaction; IV Status: Infusion continued upon transfer mb9 20:40 Drug: Albuterol Inhalation 2.5 mg Inhalation every 20 minutes x3 Route: Inhalation; mb9 21:23 Drug: Rocephin IV 1 grams IV at calculated rate once; Given slow IV push per pharmacy tm6 instructions Route: IV; Rate: calculated rate; Site: left hand; Disposition: 18:45 I was immediately available on-site in the Emergency Department for consultation in the ar3 care of the patient. Disposition Summary: 02/08/24 21:37 Transfer Ordered Notes: Transfer Location: [facility] cp Reason: Higher level of care cp Condition: Stable cp Problem: new cp Symptoms: have improved cp Accepting Physician: DR Gunn(02/08/24 22:49) cm10 Diagnosis - Anemia in other chronic diseases classified elsewhere cp - Unspecified cirrhosis of liver cp - Pleural effusion in other conditions classified elsewhere cp - GI Bleed/ Gastrointestinal hemorrhage, unspecified cp Discharge Instructions: - Discharge Summary Sheet mb9 Forms: - Medication Reconciliation Form cp - SBAR form mb9 Signatures: Dispatcher [employer] EDMS Tommie Sandoval PA PA cp Sims, Marcus, DO DO ms3 Darya Hodge, RN RN Elaine Stockton PA-C PA-C hector4 Shawna Grossman RN RN mb9 Laura Sutton RN RN cm10 Cyndie Tirado RN RN tm6 Corrections: (The following items were deleted from the chart) 16:32 16:32 BASIC METABOLIC PANEL+C.LAB.BRZ ordered. EDMS EDMS 16:32 16:32 CBC+H.LAB.BRZ ordered. EDMS EDMS 16:32 16:32 HEPATIC FUNCTION+C.LAB.BRZ ordered. EDMS EDMS 16:32 16:32 MAGNESIUM+C.LAB.BRZ ordered. EDMS EDMS 16:32 16:32 PROBNP+C.LAB.BRZ ordered. EDMS EDMS 16:32 16:32 PROTIME (+INR)+COAG.LAB.BRZ ordered. EDMS EDMS 16:32 16:32 TYPE AND SCREEN+BB.LAB.BRZ ordered. EDMS EDMS 17:40 17:27 Abdomen Pelvis W Con+CT.RAD.BRZ ordered. EDMS EDMS 17:40 17:29 Chest Abdomen W/ Con+CT.RAD.BRZ ordered. EDMS EDMS 18:05 18:04 Patient presents with abdominal distention, shortness of breath, and dark stools. sb4 He is on Eliquis. sb4 22:49 21:37 DR Gunn cp cm10
--- NOTE | 2024-02-08 21:38 | ER ---
Nurse's Notes [facility] Name: Blaise Renee Age: 63 yrs Sex: Male : 1960 Arrival Date: 02/08/2024 Time: 16:05 Bed 5 Private MD: Diagnosis: Anemia in other chronic diseases classified elsewhere;Unspecified cirrhosis of liver;Pleural effusion in other conditions classified elsewhere;GI Bleed/ Gastrointestinal hemorrhage, unspecified Presentation: 02/07 16:08 Chief complaint: EMS states: WEAKNESS, SOB, DARK TARRY STOOLS. HX OF PARACENTESIS AND db ASCITES. Coronavirus screen: Vaccine status: Patient reports being unvaccinated. Client denies travel out of the [place] in the last 14 days. At this time, the client does not indicate any symptoms associated with coronavirus-19. Ebola Screen: Patient negative for fever greater than or equal to 101.5 degrees Fahrenheit, and additional compatible Ebola Virus Disease symptoms Patient denies exposure to infectious person. Patient denies travel to an Ebola-affected area in the 21 days before illness onset. No symptoms or risks identified at this time. Initial Sepsis Screen: Does the patient meet any 2 criteria? No. Patient's initial sepsis screen is negative. Does the patient have a suspected source of infection? No. Patient's initial sepsis screen is negative. Risk Assessment: Do you want to hurt yourself or someone else? Patient reports no desire to harm self or others. Onset of symptoms was February 08, 2024. Care prior to arrival: Glucose check: 170. 16:08 Method Of Arrival: EMS: [facility] db 16:08 Acuity: TRICIA 2 db Triage Assessment: 16:17 General: Appears in no apparent distress. comfortable, Behavior is calm, cooperative. db Pain: Complains of pain in abdomen. Neuro: Level of Consciousness is awake, alert, obeys commands, Oriented to person, place, time, situation, Speech is normal. Respiratory: Airway is patent Respiratory effort is even, unlabored, Respiratory pattern is regular, symmetrical. GI: Abdomen is round distended, Reports lower abdominal pain, upper abdominal pain. Historical: - Allergies: 16:17 No Known Allergies; db - PMHx: 16:17 Cirrhosis; Hepatitis; Hypertension; db - Immunization history:: Adult Immunizations unknown. - Social history:: Smoking status: Patient denies any tobacco usage or history of. Screenin:20 [facility] ED Fall Risk Assessment (Adult) History of falling in the last 3 months, db including since admission No falls in past 3 months (0 pts) Confusion or Disorientation No (0 pts) Intoxicated or Sedated No (0 pts) Impaired Gait No (0 pts) Mobility Assist Device Used No (0 pt) Altered Elimination No (0 pt) Score/Fall Risk Level 0 - 2 = Low Risk Oriented to surroundings, Maintained a safe environment. Abuse screen: Denies threats or abuse. Denies injuries from another. Nutritional screening: No deficits noted. Tuberculosis screening: No symptoms or risk factors identified. Assessment: 16:20 Reassessment: Patient appears in no apparent distress at this time. SEE TRIAGE db ASSESSMENT FOR INITIAL ASSESSMENT. 17:23 Reassessment: Patient appears in no apparent distress at this time. No changes from db previously documented assessment. Patient and/or family updated on plan of care and expected duration. Pain level reassessed. Patient is alert, oriented x 3, equal unlabored respirations, skin warm/dry/pink. 18:00 Reassessment: Patient appears in no apparent distress at this time. Patient and/or db family updated on plan of care and expected duration. Pain level reassessed. Patient is alert, oriented x 3, equal unlabored respirations, skin warm/dry/pink. General: Appears in no apparent distress. comfortable, Behavior is calm, cooperative. Neuro: Level of Consciousness is awake, alert, obeys commands, Oriented to person, place, time, situation. Respiratory: Airway is patent Respiratory effort is even, unlabored, Respiratory pattern is regular, symmetrical. GI: Abdomen is distended. 18:55 Reassessment: PATIENT REPORTS NAUSEA AFTER MORPHINE ADMINISTRATION. PROVIDER NOTIFIED. db NEW ORDER FOR ZOFRAN. SEE MAR FOR ZOFRAN ADMINISTRATION. 19:00 Reassessment: PATIENT CONSENTED AND SIGNED ON CHART. db 19:28 Reassessment: No changes from previously documented assessment. Patient and/or family mb9 updated on plan of care and expected duration. Pain level reassessed. Patient is alert, oriented x 3, equal unlabored respirations, skin warm/dry/pink. 19:55 Reassessment: pt vomiting black coffee grounds. ERP notified. mb9 19:58 Reassessment: Administration of 1st unit of RBCS. See Blood transfusion flowsheet for mb9 further information. 20:30 Reassessment: No changes from previously documented assessment. Patient and/or family mb9 updated on plan of care and expected duration. Pain level reassessed. Patient is alert, oriented x 3, equal unlabored respirations, skin warm/dry/pink. 21:20 Reassessment: Administration of 2nd unit of RBC initiated. See blood transfusion mb9 flowsheet for further information. 21:33 Reassessment: No changes from previously documented assessment. Patient and/or family tm6 updated on plan of care and expected duration. Pain level reassessed. Patient is alert, oriented x 3, equal unlabored respirations, skin warm/dry/pink. 21:50 Reassessment: Assumed care of patient at this time. pt currently has blood infusing. cm10 Blood verified with Shawna Foster RN. Pt A\T\Ox4, respirations even and unlabored. Vital Signs: 16:08 BP 163 / 87; Pulse 99; Resp 24; Temp 98.7(O); Pulse Ox 97% on R/A; Weight 83.91 kg; db Height 5 ft. 7 in. ; 16:30 BP 157 / 79; Pulse 95; Resp 18; Pulse Ox 95% on R/A; db 17:00 BP 172 / 84; Pulse 96; Resp 26; Pulse Ox 97% on R/A; db 19:28 BP 171 / 72; Pulse 90; Resp 20; Pulse Ox 95% on R/A; mb9 19:35 BP 171 / 72; Pulse 93; Resp 20; Temp 97.8; Pulse Ox 100% ; mb9 19:40 BP 161 / 79; Pulse 86; Resp 20; Temp 97.7; Pulse Ox 98% on R/A; mb9 20:40 BP 173 / 71; Pulse 92; Resp 22; Pulse Ox 97% on 2 lpm NC; mb9 21:20 BP 164 / 71; Pulse 95; Resp 20; Temp 97.7; Pulse Ox 97% on R/A; mb9 21:25 BP 157 / 77; Pulse 98; Resp 20; Pulse Ox 95% ; mb9 21:30 BP 154 / 74; Pulse 92; Resp 20; Temp 97.7; Pulse Ox 99% ; mb9 21:34 BP 171 / 86; Pulse 94; Pulse Ox 96% on R/A; Pain 0/10; tm6 22:00 BP 141 / 76; Pulse 89; Resp 18; Pulse Ox 98% on R/A; cm10 22:30 BP 136 / 78; Pulse 83; Resp 18; Pulse Ox 98% on R/A; cm10 16:08 Body Mass Index 28.97 (83.91 kg, 170.18 cm) db 21:34 Pain Scale: Adult tm6 ED Course: 16:11 Patient arrived in ED. eb 16:15 Darya Hodge, RN is Primary Nurse. db 16:17 Triage completed. db 16:17 Arm band placed on Patient placed in an exam room. db 16:20 Bed in low position. Call light in reach. Side rails up X 1. vehicle monitor technician on. Pulse db ox on. NIBP on. 16:23 Elaine Mon PA-C is PHCP. sb4 16:23 Uriah Moise DO is Attending Physician. sb4 16:57 Initial lab(s) drawn, by me, sent to lab. EKG done, by ED staff, reviewed by Elaine Mon PA-C. Inserted saline lock: 22 gauge in right wrist, using aseptic technique. Blood collected. Patient maintains SpO2 saturation greater than 95% on room air. 18:03 PHCP role handed off by Elaine Mon PA-C cp 18:03 Tommie Sandoval PA is PHCP. cp 18:10 Assisted with bedpan. Cleaned of incontinence. mb9 19:00 Consent for blood and/or blood product transfusion explained by staff, explained by db physician, signed by patient. 19:[address] db 19:19 CT Chest, Abdomen, Pelvis - W/Contrast In Process Unspecified. EDMS 19:22 Called to initiate a transfer. Spoke with Vianca. ty 19:33 Primary Nurse role handed off by Darya Hodge, RN as6 19:57 Shawna Grossman, RN is Primary Nurse. mb9 19:59 Inserted saline lock: 22 gauge in left forearm, using aseptic technique. mb9 20:14 Missed attempt(s): 22 gauge in right antecubital area. Bleeding controlled, band aid kmf applied, catheter tip intact. 20:15 Door closed. Noise minimized. Warm blanket given. Repositioned patient. Linen changed. mb9 20:20 [facility] called for transfer, spoke with Heather. ty 20:39 Provided Education on: press call light if needing anything. mb9 20:39 Inserted saline lock: 18 gauge in left hand, using aseptic technique. mb9 20:41 No provider procedures requiring assistance completed. mb9 21:23 Lactate w/ 2H reflex if indic. Sent. tm6 21:23 Blood Culture Adult (2) Sent. tm6 21:38 Blood Culture Adult (2) Sent. mb9 21:38 Lactate w/ 2H reflex if indic. Sent. mb9 21:41 Patient transferred, IV remains in place. mb9 21:58 [facility] CALLED FOR TRANSPORT, APPROVAL 20 MINUTES. ty 22:06 Cleaned of incontinence. kmf 22:08 Warm blanket given. kmf 22:48 Report given to Kizzy Hargrove with [facility] who assumes care of patient for cm10 transport. Pt leaving with blood transfusing, no s/s of reaction. Pt leaving A\T\Ox4, respirations even and unlabored. Administered Medications: 18:09 Drug: Pantoprazole IVP 40 mg IVP once Route: IVP; Site: right forearm; mb9 18:39 Follow up: Response: No adverse reaction mb9 18:45 Drug: morphine IVP or IV 4 mg IVP once over 4 mins Route: IVP; Infused Over: 4 mins; db Site: right wrist; 20:26 Follow up: Response: No adverse reaction mb9 18:57 Drug: Ondansetron IVP 4 mg IVP once; over 2 minutes Route: IVP; Site: right wrist; db 20:26 Follow up: Response: No adverse reaction mb9 19:50 Drug: SandoSTATIN IV 50 mcg IV at calculated rate once Route: IV; Rate: calculated mb9 rate; Site: left forearm; 19:57 Drug: Octreotide Infusion (50 mcg/hr) - (Octreotide IV 500 mcg, NS 0.9% IV 500 ml) IV mb9 at 50 ml/hr continuous Route: IV; Rate: 50 ml/hr; Site: left forearm; 21:41 Follow up: Response: No adverse reaction; IV Status: Infusion continued upon transfer mb9 19:58 Drug: Ondansetron IVP 4 mg IVP once; over 2 minutes Route: IVP; Site: left forearm; mb9 20:26 Follow up: Response: No adverse reaction mb9 20:05 Drug: Albuterol Inhalation 2.5 mg Inhalation every 20 minutes x3 Route: Inhalation; mb9 20:20 Drug: Albuterol Inhalation 2.5 mg Inhalation every 20 minutes x3 Route: Inhalation; mb9 20:26 Drug: Furosemide IVP 40 mg IVP once; give over 2 minutes Route: IVP; Site: left forearm;mb9 20:40 Follow up: Response: No adverse reaction mb9 20:35 Drug: Pantoprazole IVP 40 mg IVP once Route: IVP; Site: left hand; mb9 21:42 Follow up: Response: No adverse reaction mb9 20:40 Drug: Pantoprazole IV 8 mg/hr IV at 25 ml/hr continuous; (Standard dilution is 80 mg in mb9 250 mL NS) Route: IV; Rate: 25 ml/hr; Site: left hand; 21:41 Follow up: Response: No adverse reaction; IV Status: Infusion continued upon transfer mb9 20:40 Drug: Albuterol Inhalation 2.5 mg Inhalation every 20 minutes x3 Route: Inhalation; mb9 21:23 Drug: Rocephin IV 1 grams IV at calculated rate once; Given slow IV push per pharmacy tm6 instructions Route: IV; Rate: calculated rate; Site: left hand; Medication: 16:20 VIS not applicable for this client. db 21:50 Blood products: PRBCs X 2 units given. See transfusion record. cm10 Outcome: 21:37 ER care complete, transfer ordered by . cp 22:00 Transferred by ground EMS to [facility], [facility], Transfer form completed. 6 X-rays sent w/ patient. Note: report given to transferring nurse THERESE Solis 22:00 Condition: stable 22:00 Instructed on the need for transfer, 22:49 Patient left the ED. cm10 Signatures: Dispatcher [employer] EDMS Tommie Sandoval PA PA cp Botello, Elizabeth eb Slawson, Ashby, RN RN as6 Darya Hodge RN RN Elaine Stockton, PA-C PA-C Shawna Rodríguez RN RN mb9 Laura Sutton RN RN cm10 Shabana Caraballo [facility] Cyndie Tirado RN RN tm6 Yandell, Alberto ty Corrections: (The following items were deleted from the chart) 17:23 16:08 BP 163 / 87; Pulse 99bpm; Resp 18bpm; Pulse Ox 97% RA; Temp 98.7F Oral; 83.91 kg; db Height 5 ft. 7 in.; BMI: 28.9; db 20:24 20:20 [facility] called for ty ty 21:45 21:20 Reassessment: Administration of 2nd unit of RBC initiated mb9 mb9
[2024-02-09 00:56] VITALS: BP 136/78; TEMP 97.7; O2SAT 98
--- NOTE | 2024-02-10 13:44 | EKG ---
Test Date: 2024-02-08 Test Time: 16:33:42 [employer]: NICK MEASUREMENT RESULTS: Intervals: Rate: 95 NC: 136 QRSD: 80 QT: 360 QTc: 452 [place]: P: 59 NC: 136 QRS: -30 T: 2 INTERPRETIVE STATEMENTS: Normal sinus rhythm Left axis deviation Moderate voltage criteria for LVH, may be normal variant Abnormal ECG Compared to ECG 11/23/2023 13:28:08 Left-axis deviation now present Left ventricular hypertrophy now present Electronically Signed On 02-10-24 13:37:41 CDT by Luís Velasco
== END 2024-02-08 22:49 | disposition short-term general hospital (02) ==
LOC: ER 16:05
DX: K74.60 Unspecified cirrhosis of liver (principal); D63.8 Anemia in other chronic diseases classified elsewhere; J91.8 Pleural effusion in other conditions classified elsewhere; I10 Essential (primary) hypertension
CPT/HCPCS: 93005; 87040 ×2; 85025; 80048; 36415; 86900; 83735; 86850; 85610; 86901; 80076; 83605; 85730; 86920 ×2; 83880; 71260; 74177; 36430; 99285; Q9967; J2354 ×2; J1940; J7613; C9113 ×2; J2405 ×2; P9016 ×2; J7050 ×2; J7040; J0696

== ENCOUNTER 2024-04-07 18:06 | Emergency (ER) | payer OTHER ==
[2024-04-07 19:17] LABS: Absolute Eosinophils 0.1 K/uL (0-0.5); Absolute Lymphocytes (CBC) 0.6 K/uL (0.7-4.9); Absolute Monocytes 0.3 K/uL (0.1-1.3); Absolute Neutrophil 2.2 K/uL (1.8-8.0); Basophils % 1.5 % (0-1.3); Eosinophils % 2.1 % (0-4.4); Hematocrit 25.9 % (39.6-49.0); Hemoglobin 8.6 g/dL (13.6-17.9); Lymphocytes % 17.9 % (15.3-44.8); MCH 29.2 pg (27.0-35.0); MCHC 33.2 g/dL (32.0-36.0); MCV 88.1 fL (80-100); MPV 6.4 fL (7.6-11.3); Monocytes % 8.8 % (3.3-12.3); Neutrophils % 69.7 % (41.7-73.7); Nucleated Red Blood Cells % 0.4 % (0-0); Platelets 104 thou/uL (152-406); RBC Red Blood Cell Count 2.94 M/uL (4.33-5.43); Red Cell Distribution Width 15.9 % (12.1-15.2)
[2024-04-07 19:23] LABS: PT Prothrombin Time 12.9 SECONDS (9.5-12.5); Protime INR 1.18
[2024-04-07 19:42] LABS: ALT/SGPT 27 U/L (16-61); AST/SGOT 35 U/L (15-37); Albumin 2.9 g/dL (3.4-5.0); Albumin/Globulin Ratio 0.7 (1.1-1.8); Alkaline Phosphatase 74 U/L (45-117); Anion Gap 8.2 mEq/L (5.0-15.0); BUN Blood Urea Nitrogen 30 mg/dL (7-18); Bicarbonate 21 mEq/L (21-32); Bilirubin Total 0.4 mg/dL (0.2-1.0); Globulin 3.9 g/dL (2.3-3.5); Glomerular Filtration Rate 78 ml/min (=/>90); Glucose Level 110 mg/dL (74-106); Magnesium 1.9 mg/dL (1.6-2.4); NT PRO-BNP 1537 pg/mL (<125); Potassium 4.2 mEq/L (3.5-5.1); Protein, Total 6.8 g/dL (6.4-8.2); Sodium Level 140 mEq/L (136-145); Troponin High Sensitivity 18.3 pg/mL (<58.9)
[2024-04-07 19:44] LABS: Bilirubin Direct < 0.2 mg/dL (0-0.2); Bilirubin Indirect, Calculated 0.2 mg/dL (0.2-0.8)
--- NOTE | 2024-04-07 20:02 | RAD REPORT ---
EXAM DESCRIPTION: Louis Single View04/07/2024 7:35 pm CLINICAL HISTORY: Shortness breath COMPARISON: January 2004 FINDINGS: Very large right pleural effusion. Left lung appears clear of acute infiltrate. Heart is size
--- NOTE | 2024-04-07 20:03 | RAD REPORT ---
EXAM DESCRIPTION: USExtrem Venous W Compress Bil04/07/2024 7:51 pm CLINICAL HISTORY: Leg pain COMPARISON: November 2023 FINDINGS: The common femoral, superficial femoral, greater saphenous, popliteal and posterior tibial veins bilaterally are compressible and demonstrate augmentation. Doppler demonstrates good flow. Grayscale, color and spectral analysis performed on all vessels IMPRESSION: No evidence of deep venous thrombosis involving either lower extremity.
[2024-04-07] MEDS ORDERED: FUROSEMIDE 40 MG/4 ML VIAL ONE (20:17)
[2024-04-07] MEDS ORDERED: IPRATROPIUM BROM 0.5MG/2.5ML ONE (20:17)
[2024-04-07] MEDS ORDERED: ALBUTEROL 2.5 MG/3 ML NEB SOL ONE (20:17)
--- NOTE | 2024-04-07 22:00 | EDPHYS ---
Physician Documentation [facility] Name: Blaise Renee Age: 63 yrs Sex: Male : 1960 Arrival Date: 04/07/2024 Time: 18:06 Bed 4 Private MD: ED Physician Bradly Lundberg HPI: 04/07 18:25 This 63 yrs old Male presents to ER via EMS with complaints of Shortness of Breath. cp 18:25 The patient has shortness of breath at rest. Onset: The symptoms/episode began/occurred cp gradually, and became worse today. Duration: The symptoms are continuous, and are steadily getting worse. Associated signs and symptoms: Pertinent positives: abdominal distension, lower extremity swelling, Pertinent negatives: diaphoresis, dizziness, fever. Severity of symptoms: in the emergency department the symptoms are unchanged despite home interventions. Historical: - Allergies: 18:55 No Known Allergies; ll1 - PMHx: 18:55 Cirrhosis; Hepatitis; Hypertension; ll1 - Immunization history:: Adult Immunizations up to date. - Infectious Disease History:: Denies. - Social history:: Smoking status: Patient denies any tobacco usage or history of. ROS: 18:30 Constitutional: Negative for body aches, chills, fever, poor PO intake, cp 18:30 Eyes: Negative for injury, pain, redness, and discharge, cp 18:30 ENT: Negative for drainage from ear(s), ear pain, sore throat, difficulty swallowing, difficulty handling secretions, 18:30 Cardiovascular: Positive for edema, Negative for palpitations, 18:30 Respiratory: Positive for shortness of breath, at rest. Negative for cough, wheezing, 18:30 Abdomen/GI: Positive for abdominal distension, Negative for vomiting, diarrhea, constipation, 18:30 Neuro: Negative for altered mental status, dizziness, headache, numbness, syncope, weakness, 18:30 All other systems are negative, Exam: 18:33 Constitutional: The patient appears in no acute distress, alert, awake, cp non-diaphoretic, non-toxic, well developed, well nourished, uncomfortable, 18:33 Head/Face: Normocephalic, atraumatic. cp 18:33 Eyes: Periorbital structures: appear normal, Conjunctiva: normal, no exudate, no injection, Sclera: no appreciated abnormality, Lids and lashes: appear normal, bilaterally, 18:33 ENT: External ear(s): are unremarkable, Nose: is normal, Mouth: Lips: moist, Oral mucosa: pink and intact, moist, Posterior pharynx: Airway: no evidence of obstruction, patent, 18:33 Neck: ROM/movement: is normal, is supple, without pain, no range of motions limitations, 18:33 Chest/axilla: Inspection: normal, 18:33 Cardiovascular: Rate: normal, Rhythm: regular, Edema: ankle edema, that is mild, JVD: is not appreciated, 18:33 Respiratory: mild respiratory distress is noted, Respirations: labored breathing, that is moderate, shallow respirations, that is moderate, tachypnea, that is moderate, Breath sounds: decreased breath sounds, that are severe, are heard in the right posterior middle lobe and right posterior lower lobe, stridor, is not appreciated, wheezing: is not appreciated, 18:33 Abdomen/GI: Inspection: distension, that is moderate, in the abdomen diffusely, Bowel sounds: active, all quadrants, Palpation: soft, in all quadrants, mild abdominal tenderness, in all quadrants, 18:33 Back: pain, is absent, ROM is normal, 18:52 ECG was reviewed by the Attending Physician. cp Vital Signs: 18:35 BP 172 / 90; Pulse 67; Resp 25; Temp 98.2(O); Pulse Ox 95% on R/A; Weight 83.91 kg; nj1 Height 5 ft. 8 in. ; Pain 7/10; 18:58 BP 172 / 90; Pulse 71; Resp 24; Pulse Ox 100% ; ko1 20:11 BP 182 / 93; Pulse 69; Resp 22; Pulse Ox 95% on R/A; kd3 21:31 BP 193 / 86; Pulse 80; Resp 24; Pulse Ox 99% on R/A; kd3 22:56 BP 183 / 78; Pulse 97; Resp 22; Pulse Ox 96% on 1 lpm NC; kd3 23:21 BP 176 / 80; Pulse 83; Resp 20; Pulse Ox 96% on 1 lpm NC; jb4 04/08 00:45 BP 172 / 75; Pulse 80; Resp 16; Pulse Ox 98% on R/A; kd3 01:21 BP 188 / 83; Pulse 83; Resp 24; Pulse Ox 97% on 1 lpm NC; kd3 04/07 18:35 Body Mass Index 28.13 (83.91 kg, 172.72 cm) nj1 04/07 18:35 Pain Scale: Adult nj1 MDM: 04/07 18:18 Patient medically screened. cp 21:10 Data reviewed: vital signs, nurses notes, lab test result(s), EKG, radiologic studies, cp plain films, I have discussed the patient's presentation/case with the attending Emergency Department Physician;. 21:55 Management of patient was discussed with the following: Hospitalist: DR Mcfarlane who cp requests transfer for IR services. 21:55 Differential diagnosis: Anemia Anxiety Reaction Bronchitis CHF exacerbation, Chronic cp Obstructive Pulmonary Disease Myocardial Infarction pneumonia, Pneumothorax pulmonary edema, Pulmonary Embolism Sepsis Unstable Angina. Antibiotic administration: Not indicated, the patient does not have an appreciated infiltrate. Care significantly affected by the following chronic conditions: Hypertension, Liver Disease. Counseling: I had a detailed discussion with the patient and/or guardian regarding the historical points, exam findings, and any diagnostic results supporting the discharge/admit diagnosis, lab results, radiology results, the need to transfer to another facility, for higher level of care, [facility] does not immediately have the required specialist. Response to treatment: the patient's symptoms have mildly improved after treatment. 23:05 ED course: consultation with DR Kim, hospitalist at [facility] will accept cp patient as transfer. 04/07 18:23 Order name: Basic Metabolic Panel; Complete Time: 20:06 04/07 20:06 Interpretation: Normal except: CL 115; GLUC 110; BUN 30; GFR 78; CA 8.3. 04/07 18:23 Order name: CBC with Diff; Complete Time: 20:06 04/07 20:06 Interpretation: Normal except: WBC 3.10; RBC 2.94; HGB 8.6; HCT 25.9; PLT 104; RDW cp 15.9; MPV 6.4; BASO% 1.5; LYMA 0.6. 04/07 18:23 Order name: LFT's; Complete Time: 20:06 04/07 21:04 Interpretation: Normal except: ALB 2.9; GLOB 3.9; A/G 0.7. 04/07 18:23 Order name: Magnesium; Complete Time: 20:06 04/07 18:23 Order name: NT PRO-BNP; Complete Time: 20:06 cp 04/07 20:06 Interpretation: Abnormal: NT PRO-BNP 1537. 04/07 18:23 Order name: PT-INR; Complete Time: 20:06 cp 04/07 18:23 Order name: Troponin HS; Complete Time: 20:06 cp 04/07 18:23 Order name: Urinalysis W/Microscopic; Complete Time: 23:58 cp 04/07 23:58 Interpretation: Normal except: UBLD 1+; UPROT 1+; URBC 5-10; HYAL 10-20. 04/07 18:23 Order name: XRAY Chest (1 view); Complete Time: 20:06 04/07 20:06 Interpretation: Report review. 04/07 18:39 Order name: US Extremity Venous W Compression Krish; Complete Time: 20:06 04/07 18:23 Order name: Cardiac monitoring; Complete Time: 18:48 04/07 18:23 Order name: EKG - Nurse/Tech; Complete Time: 18:48 cp 04/07 18:23 Order name: IV Saline Lock; Complete Time: 19:09 cp 04/07 18:23 Order name: Labs collected and sent; Complete Time: 19:09 04/07 18:23 Order name: O2 Per Protocol; Complete Time: 18:48 cp 04/07 18:23 Order name: O2 Sat Monitoring; Complete Time: 18:48 cp EC:52 Rate is 68 beats/min. Rhythm is regular. QRS interval is normal. QT interval is normal. cp T waves are Inverted in lead aVR. Interpreted by me. Reviewed by me. Administered Medications: 20:20 Drug: DuoNeb Nebulize (2.5 mg - 0.5 mg) 3 ml Nebulizer once Route: Nebulizer; [facility] 04/08 01:40 Follow up: Response: No adverse reaction [facility] 04/07 20:20 Drug: Furosemide IVP 40 mg IVP once; give over 2 minutes Route: IVP; Site: right kd3 antecubital; 04/08 01:39 Follow up: Response: No adverse reaction [facility] 04/07 22:14 Drug: hydrALAZINE IVP 10 mg IVP once Route: IVP; Site: right antecubital; jb4 04/08 01:39 Follow up: Response: No adverse reaction kd3 01:29 Drug: hydrALAZINE IVP 10 mg IVP once; if blood pressure greater than 180 systolic kd3 Route: IVP; Site: right antecubital; 01:39 Follow up: Response: No adverse reaction kd3 Disposition: 07:09 Co-signature as Attending Physician, Bradly Lundberg MD I reviewed the patient's care rn provided by the Advanced Practice Provider and agree with the diagnosis and treatment plan. Disposition Summary: 04/07/24 21:59 Transfer Ordered Notes: Transfer Location: [facility] cp Reason: Higher level of care cp Condition: Stable cp Problem: new cp Symptoms: have improved cp Accepting Physician: DR Kim(04/08/24 01:45) kd3 Diagnosis - Dyspnea cp - Pleural effusion in other conditions classified elsewhere cp - Unspecified combined systolic (congestive) and diastolic (congestive) heart failure cp - Other ascites cp Forms: - Medication Reconciliation Form cp - SBAR form cp Signatures: Dispatcher [employer] EDMS Bradly Lundberg MD MD rn Page, Corey, PA PA cp Alli Durán, RN RN jb4 Felipa Negron RN RN ll1 Helena Boggs RN RN kd3 Darlene Bowers, THERESE RN nj1 Corrections: (The following items were deleted from the chart) 04/07 18:24 18:24 BASIC METABOLIC PANEL+C.LAB.BRZ ordered. EDMS EDMS 18:24 18:24 CBC+H.LAB.BRZ ordered. EDMS EDMS 18:24 18:24 HEPATIC FUNCTION+C.LAB.BRZ ordered. EDMS EDMS 18:24 18:24 MAGNESIUM+C.LAB.BRZ ordered. EDMS EDMS 18:24 18:24 PROBNP+C.LAB.BRZ ordered. EDMS EDMS 18:24 18:24 PROTIME (+INR)+COAG.LAB.BRZ ordered. EDMS EDMS 18:24 18:24 Troponin High Sensitivity+C.LAB.BRZ ordered. EDMS EDMS 18:24 18:24 Urinalysis W/Microscopic+U.LAB.BRZ ordered. EDMS EDMS 18:24 18:24 Chest Single View+RAD.RAD.BRZ ordered. EDMS EDMS 23:29 21:59 doctor cp cp 04/08 00:12 00:10 This 63 yrs old Male presents to ER via EMS with complaints of Shortness of cp Breath. cp 01:45 04/07 23:29 DR Kim cp kd3 04/08 20:41 04/07 21:45 Management of patient was discussed with the following: Hospitalist: DR ifrah Mcfarlane who requests transfer for IR services. cp
--- NOTE | 2024-04-07 22:00 | ER ---
Nurse's Notes [facility] Name: Blaise Renee Age: 63 yrs Sex: Male : 1960 Arrival Date: 04/07/2024 Time: 18:06 Bed 4 Private MD: Diagnosis: Dyspnea;Pleural effusion in other conditions classified elsewhere;Unspecified combined systolic (congestive) and diastolic (congestive) heart failure;Other ascites Presentation: 04/07 18:35 Coronavirus screen: Vaccine status: Patient reports being unvaccinated. nj1 18:35 Onset of symptoms was March 2024. ut1 18:55 Chief complaint: Patient states: SOB, abdominal swelling. Ebola Screen: Patient denies ll1 travel to an Ebola-affected area in the 21 days before illness onset. Initial Sepsis Screen: Does the patient meet any 2 criteria? No. Patient's initial sepsis screen is negative. Does the patient have a suspected source of infection? No. Patient's initial sepsis screen is negative. Risk Assessment: Do you want to hurt yourself or someone else? Patient reports no desire to harm self or others. 18:55 Acuity: TRICIA 3 ll1 18:55 Method Of Arrival: EMS ll1 Historical: - Allergies: 18:55 No Known Allergies; ll1 - PMHx: 18:55 Cirrhosis; Hepatitis; Hypertension; ll1 - Immunization history:: Adult Immunizations up to date. - Infectious Disease History:: Denies. - Social history:: Smoking status: Patient denies any tobacco usage or history of. Screenin:15 [facility] ED Fall Risk Assessment (Adult) History of falling in the last 3 months, [facility] including since admission No falls in past 3 months (0 pts) Confusion or Disorientation No (0 pts) Intoxicated or Sedated No (0 pts) Impaired Gait No (0 pts) Mobility Assist Device Used No (0 pt) Altered Elimination No (0 pt) Score/Fall Risk Level 0 - 2 = Low Risk Oriented to surroundings, Maintained a safe environment, Hourly rounding (assess needs \T\ fall precautionary measures) done. Abuse screen: Denies threats or abuse. Denies injuries from another. Nutritional screening: No deficits noted. Tuberculosis screening: No symptoms or risk factors identified. Assessment: 18:35 General: Appears in no apparent distress. uncomfortable, Behavior is calm, cooperative, nj1 appropriate for age. 18:35 Pain: Complains of pain in chest, abdomen and right leg Pain currently is 7 out of 10 [facility] on a pain scale. Pain began 1-1.5 weeks ago. Neuro: Level of Consciousness is awake, alert, obeys commands, Oriented to person, place, time, situation. Cardiovascular: Patient's skin is warm and dry. Respiratory: Airway is patent Respiratory effort is even, slightly labored Respiratory pattern is tachypnea. Respiratory: Reports shortness of breath at rest on exertion. GI: Abdomen is round distended, Reports lower abdominal pain, upper abdominal pain. Musculoskeletal: Swelling present in right leg. 04/08 00:44 General: Report given to [facility]. . kd3 01:22 General: Appears uncomfortable, Behavior is calm, cooperative. Neuro: Level of 3 Consciousness is awake, alert, obeys commands, Oriented to person, place, time, situation. Respiratory: Airway is patent Respiratory effort is even, labored, Respiratory pattern is regular. Vital Signs: 04/07 18:35 BP 172 / 90; Pulse 67; Resp 25; Temp 98.2(O); Pulse Ox 95% on R/A; Weight 83.91 kg; nj1 Height 5 ft. 8 in. ; Pain 7/10; 18:58 BP 172 / 90; Pulse 71; Resp 24; Pulse Ox 100% ; ko1 20:11 BP 182 / 93; Pulse 69; Resp 22; Pulse Ox 95% on R/A; kd3 21:31 BP 193 / 86; Pulse 80; Resp 24; Pulse Ox 99% on R/A; kd3 22:56 BP 183 / 78; Pulse 97; Resp 22; Pulse Ox 96% on 1 lpm NC; kd3 23:21 BP 176 / 80; Pulse 83; Resp 20; Pulse Ox 96% on 1 lpm NC; jb4 04/08 00:45 BP 172 / 75; Pulse 80; Resp 16; Pulse Ox 98% on R/A; kd3 01:21 BP 188 / 83; Pulse 83; Resp 24; Pulse Ox 97% on 1 lpm NC; kd3 04/07 18:35 Body Mass Index 28.13 (83.91 kg, 172.72 cm) [facility] 04/07 18:35 Pain Scale: Adult [facility] ED Course: 04/07 18:15 Patient arrived in ED. ll1 18:16 Arm band placed on. ll1 18:17 [facility] Sandoval [facility]. cp 18:17 Bradly Lundberg MD is Attending Physician. cp 18:25 Darlene Bowers, THERESE is Primary Nurse. nj1 18:50 EKG done, by ED staff, reviewed by Tommie ALAN. nj1 18:55 Triage completed. ll1 18:58 Patient has correct armband on for positive identification. Placed in gown. Bed in low ko1 position. Call light in reach. Side rails up X2. Provided Education on: call light. Client placed on continuous cardiac and pulse oximetry monitoring. NIBP monitoring applied. transport engineer on. Door closed. Noise minimized. Lights dimmed. Warm blanket given. Pillow given. 19:05 Inserted saline lock: 20 gauge in right antecubital area, using aseptic technique. nj1 Blood collected. Ultrasound guided. Catheter tip well visualized within vasculature during placement. 19:10 Report given to Kendra SALEH. nj1 19:37 XRAY Chest (1 view) In Process Unspecified. EDMS 19:53 US Extremity Venous W Compression Krish In Process Unspecified. EDMS 22:19 initiated transfer to [facility] spoke with Shea. 22:56 Urinalysis W/Microscopic Sent. [facility] 23:15 called transfer center for update spoke with Shea stated she is still waiting on hospitalist to call. 04/08 01:21 patient was accepted to [facility] Main Room [address] Kim / called \T\0100 [facility] ambulance to transfer ETA transfer 35 mins. 01:39 Inserted saline lock: 22 gauge in left wrist, using aseptic technique. IV discontinued, kd3 intact, bleeding controlled, No redness/swelling at site. Pressure dressing applied. Administered Medications: 04/07 20:20 Drug: DuoNeb Nebulize (2.5 mg - 0.5 mg) 3 ml Nebulizer once Route: Nebulizer; 3 04/08 01:40 Follow up: Response: No adverse reaction [facility] 04/07 20:20 Drug: Furosemide IVP 40 mg IVP once; give over 2 minutes Route: IVP; Site: right kd3 antecubital; 04/08 01:39 Follow up: Response: No adverse reaction [facility] 04/07 22:14 Drug: hydrALAZINE IVP 10 mg IVP once Route: IVP; Site: right antecubital; jb4 04/08 01:39 Follow up: Response: No adverse reaction kd3 01:29 Drug: hydrALAZINE IVP 10 mg IVP once; if blood pressure greater than 180 systolic kd3 Route: IVP; Site: right antecubital; 01:39 Follow up: Response: No adverse reaction kd3 Medication: 01:21 VIS not applicable for this client. kd3 Outcome: 04/07 21:59 ER care complete, transfer ordered by MD. rg 04/08 01:45 Patient left the ED. kd3 Signatures: Dispatcher [employer] EDMS Tommie Sandoval PA PA cp Bryson, James RN RN jb4 Felipa Negron RN RN [email or web address] Helena Boggs RN RN kd3 Rebeka Craft RN RN suresh1 Darlene Bowers RN RN nj1 Irma Presley Corrections: (The following items were deleted from the chart) 04/07 19:11 19:05 Inserted saline lock: 20 gauge in right antecubital area, using aseptic nj1 technique. Blood collected. nj1 20:12 20:11 BP 182 / 93; Pulse 69bpm; Resp 20bpm; Pulse Ox 95% RA; kd3 kd3 21:28 21:27 Furosemide IVP 40 mg IVP in right antecubital kd3 kd3
[2024-04-07] MEDS ORDERED: HYDRALAZINE HCL 20 MG/ML VIAL ONE (22:11)
[2024-04-07 23:38] LABS: Specific Gravity 1.009 (1.005-1.030); Sqamous Epithelial None Seen /HPF (None Seen); Urine Bacteria None Seen /HPF (<20); Urine Bilirubin NEGATIVE (Negative); Urine Blood 1+ (Negative); Urine Clarity Clear (Clear); Urine Color Colorless (Yellow); Urine Culture Reflex Order NOT NEEDED; Urine Glucose NEGATIVE (Negative); Urine Ketones NEGATIVE (Negative); Urine Micro Reflex YN NO BILL MICROSCOPIC; Urine Mucus Slight /HPF (None Seen); Urine Nitrite NEGATIVE (Negative); Urine Protein 1+ (Negative); Urine Urobilinogen Normal (Normal); Urine WBC <5 /HPF (<5)
[2024-04-08] MEDS ORDERED: HYDRALAZINE HCL 20 MG/ML VIAL ONE (01:25)
[2024-04-08 02:17] VITALS: BP 188/83; TEMP 98.2; O2SAT 97
--- NOTE | 2024-04-10 17:01 | EKG ---
Test Date: 2024-04-07 Test Time: 18:45:17 Build Automation Engineer: SHEMAR MEASUREMENT RESULTS: Intervals: Rate: 68 MI: QRSD: 82 QT: 404 QTc: 429 [place]: P: MI: QRS: -22 T: 13 INTERPRETIVE STATEMENTS: Sinus rhythm Moderate voltage criteria for LVH, may be normal variant Abnormal ECG Compared to ECG 02/08/2024 16:33:42 Left-axis deviation no longer present Electronically Signed On 04-10-24 16:51:51 CDT by Luís Velasco
== END 2024-04-08 01:45 | disposition short-term general hospital (02) ==
LOC: ER 18:06
DX: J90 Pleural effusion, not elsewhere classified (principal); I50.40 Unspecified combined systolic (congestive) and diastolic (congestive) heart failure; R18.8 Other ascites; I10 Essential (primary) hypertension; K74.60 Unspecified cirrhosis of liver
CPT/HCPCS: 93005; 85025; 81001; 80048; 36415; 83735; 85610; 80076; 84484; 83880; 71045; 93970; 94640; 96375; 96374; 99285; J0360 ×2; J1940; J7613; J7644

== ENCOUNTER 2024-05-17 17:10 | Emergency (ER) | payer OTHER ==
[2024-05-17 18:00] LABS: Absolute Eosinophils 0.1 K/uL (0-0.5); Absolute Lymphocytes (CBC) 0.6 K/uL (0.7-4.9); Absolute Monocytes 0.2 K/uL (0.1-1.3); Absolute Neutrophil 1.9 K/uL (1.8-8.0); Basophils % 1.1 % (0-1.3); Eosinophils % 2.3 % (0-4.4); Hematocrit 30.4 % (39.6-49.0); Hemoglobin 9.8 g/dL (13.6-17.9); Lymphocytes % 20.6 % (15.3-44.8); MCH 29.8 pg (27.0-35.0); MCHC 32.2 g/dL (32.0-36.0); MCV 92.4 fL (80-100); MPV 6.7 fL (7.6-11.3); Monocytes % 7.1 % (3.3-12.3); Neutrophils % 68.9 % (41.7-73.7); Nucleated Red Blood Cells % 0.1 % (0-0); PT Prothrombin Time 12.1 SECONDS (9.4-12.5); Platelets 91 thou/uL (152-406); Protime INR 1.1; Red Cell Distribution Width 18.7 % (12.1-15.2)
--- NOTE | 2024-05-17 18:14 | RAD REPORT ---
EXAM DESCRIPTION: [place] Single View05/17/2024 6:06 pm CLINICAL HISTORY: Shortness breath COMPARISON: March 2024 FINDINGS: Opacification right hemithorax represents combination of large loculated right pleural eff usion and atelectasis Left lung appears clear. Heart is normal size IMPRESSION: Opacification right hemithorax represents combination of large loculated right pleural e ffusion and atelectasis
[2024-05-17 18:15] LABS: Albumin 3.1 g/dL (3.4-5.0); Albumin/Globulin Ratio 0.8 (1.1-1.8); Bilirubin Direct 0.2 mg/dL (0-0.2); Bilirubin Indirect, Calculated 0.2 mg/dL (0.2-0.8); Bilirubin Total 0.4 mg/dL (0.2-1.0); Globulin 3.7 g/dL (2.3-3.5); Magnesium 2.2 mg/dL (1.6-2.4); Protein, Total 6.8 g/dL (6.4-8.2); Troponin High Sensitivity 11.6 pg/mL (<58.9)
[2024-05-17 18:27] LABS: Blood Morphology Comment NOTED (NOT SEEN); Platelet Estimate DECR; Teardrop Cell FEW; White Blood Cell Scan OK (OK)
--- NOTE | 2024-05-17 18:33 | ER ---
Nurse's Notes [facility] Name: Blaise Renee Age: 63 yrs Sex: Male : 1960 Arrival Date: 05/17/2024 Time: 17:10 Bed 4 Private MD: Diagnosis: Loculated pleural effusion, right;Other ascites;Dyspnea;Acute on chronic combined systolic (congestive) and diastolic (congestive) heart failure Presentation: 05/17 17:06 Chief complaint: EMS states: Shortness of breath that has worsen for the past week. nj1 Gets paracentesis done about every month. 17:06 Coronavirus screen: Vaccine status: Patient reports being unvaccinated. Ebola Screen: nj1 Patient denies travel to an Ebola-affected area in the 21 days before illness onset. Initial Sepsis Screen: Does the patient meet any 2 criteria? No. Patient's initial sepsis screen is negative. Does the patient have a suspected source of infection? No. Patient's initial sepsis screen is negative. Risk Assessment: Do you want to hurt yourself or someone else? Patient reports no desire to harm self or others. Onset of symptoms was May 2024. 17:06 Method Of Arrival: EMS [facility] 17:06 Acuity: TRICIA 3 nj 17:06 Care prior to arrival: Medication(s) given: Nitroglycerin, 0.4 mg SL x 1, IV initiated. nj1 22 GA, in the left wrist, Glucose check: 138 Oxygen administered. via nasal cannula. Triage Assessment: 17:10 Respiratory: Reports shortness of breath at rest. [facility] 17:10 Respiratory: Onset: The symptoms/episode began/occurred gradually. nj1 17:10 Respiratory: the patient has moderate shortness of breath. nj1 Historical: - Allergies: 17:18 No Known Allergies; nj1 - PMHx: 17:18 Cirrhosis; Hepatitis; Hypertension; nj1 - Immunization history:: Client reports having NOT received the Covid vaccine. - Infectious Disease History:: Denies. - Social history:: Smoking status: Patient denies any tobacco usage or history of. Screenin:35 [facility] ED Fall Risk Assessment (Adult) History of falling in the last 3 months, kb3 including since admission No falls in past 3 months (0 pts) Confusion or Disorientation No (0 pts) Intoxicated or Sedated No (0 pts) Impaired Gait No (0 pts) Mobility Assist Device Used No (0 pt) Altered Elimination No (0 pt) Score/Fall Risk Level 0 - 2 = Low Risk. Abuse screen: Denies threats or abuse. Denies injuries from another. Nutritional screening: No deficits noted. Tuberculosis screening: No symptoms or risk factors identified. Assessment: 17:10 General: Appears in no apparent distress. uncomfortable, Behavior is calm, cooperative, nj1 appropriate for age. 17:10 Pain: Denies pain. Neuro: Level of Consciousness is awake, alert, obeys commands, nj1 Oriented to person, place, time, situation. Cardiovascular: Patient's skin is warm and dry. Rhythm is sinus rhythm. Cardiovascular: Respiratory: Airway is patent Respiratory effort is even, unlabored, Respiratory pattern is tachypnea. GI: Abdomen is round. Musculoskeletal: Swelling present in right leg. 18:51 Reassessment: Patient appears in no apparent distress at this time. Patient and/or nj1 family updated on plan of care and expected duration. Pain level reassessed. Patient is alert, oriented x 3, equal unlabored respirations, skin warm/dry/pink. 18:51 Pain: Complains of pain in left knee and right hip. nj1 18:51 Pain: Pain currently is 10 out of 10 on a pain scale. [facility] 19:50 General: Report called to THERESE Ivory at [facility].. [facility] [place] Vital Signs: 17:06 BP 184 / 94; Pulse 79; Resp 24; Temp 98.2(O); Pulse Ox 100% on 2 lpm NC; Weight 83.91 nj1 kg; Height 5 ft. 8 in. ; 18:51 BP 171 / 87; Pulse 67; Resp 26; Pulse Ox 100% ; Pain 10/10; nj1 19:00 BP 162 / 81; Pulse 74; Resp 24; Pulse Ox 100% on 2 lpm NC; oh1 20:00 BP 179 / 94; Pulse 69; Resp 25; Pulse Ox 99% on 2 lpm NC; oh1 20:31 Pain 4/10; oh1 17:06 Body Mass Index 28.13 (83.91 kg, 172.72 cm) [facility] 18:51 Pain Scale: Adult [facility] 20:31 Pain Scale: Adult [facility] [place] ED Course: 17:10 Provided Education on: call light, fall precautions. nj1 17:10 Maintain EMS IV. Dressing intact. Site clean \T\ dry. Gauge \T\ site: 22 L wrist. nj 1 17:13 Patient arrived in ED. nj1 17:13 Elaine Mon PA-C is PHCP. sb4 17:13 Julien Saavedra MD is Attending Physician. sb4 17:17 Triage completed. nj1 17:19 Arm band placed on. nj1 17:21 Darlene Bowers, THERESE is Primary Nurse. nj1 17:34 Missed attempt(s): 22 gauge in right antecubital area. kb3 17:35 Patient has correct armband on for positive identification. Bed in low position. Call kb3 light in reach. Side rails up X2. child monitor on. Pulse ox on. NIBP on. Warm blanket given. Pillow given. 17:45 Initial lab(s) drawn, by me, sent to lab. nj1 18:08 XRAY Chest (1 view) In Process Unspecified. EDMS 18:32 CT Chest, Abdomen, Pelvis - W/Contrast In Process Unspecified. EDMS 18:48 initiated a transfer with Carolynn from the [facility]. eb 18:59 Report given to Mikki SALEH. nj1 19:18 Carolynn Alatorre gave admin approval \T\ 1918 pt will go to [facility] room 939. [facility] 19:23 doc [address] doc [address] Dr[address] Herzog. [facility] 20:30 No provider procedures requiring assistance completed. Patient transferred, IV remains me1 in place. 05/18 01:17 pt was accepted to [facility] bed 939. Carolynn Alatorre gave approval \T\ 1917. Accepting doctor Jeffrey Joe \T\ 1916. [facility] to transfer pt. Number for nurse to nurse report [phone]. Administered Medications: 05/17 18:50 Drug: Furosemide IVP 40 mg IVP once; give over 2 minutes Route: IVP; Site: left wrist; nj1 19:45 Follow up: Response: No adverse reaction me1 19:10 Drug: Vale PO 10 mg-325 mg 1 tabs PO once Route: PO; me1 20:31 Follow up: Pain 4/10 Adult; Response: No adverse reaction; Pain is decreased me1 Medication: 20:30 VIS not applicable for this client. me1 Outcome: 18:32 ER care complete, transfer ordered by MD. young4 20:30 Transferred by ground EMS to [facility], Transfer form completed. me1 Note: Report called to THERESE Ivory 20:30 Condition: stable 20:30 Instructed on the need for transfer, 20:31 Patient left the ED. me1 Signatures: Dispatcher [employer] EDMS Tiesha Ramon Kelly, RN RN kb3 Elaine Mon PA-C PAAlvina sb4 Darlene Bowers RN RN nj1 Mikki Godfrey RN RN me1 Shabana Caraballo [facility] Corrections: (The following items were deleted from the chart) 18:53 18:51 Pulse 67bpm; Resp 26bpm; Pulse Ox 100%; Pain 10/, Adult; nj1 nj1
--- NOTE | 2024-05-17 18:33 | EDPHYS ---
Physician Documentation [facility] Name: Blaise Renee Age: 63 yrs Sex: Male : 1960 Arrival Date: 05/17/2024 Time: 17:10 Bed 4 Private MD: ED Physician Julien Saavedra HPI: 05/17 17:16 This 63 yrs old Male presents to ER via Unassigned with complaints of Shortness Of sb4 Breath. 17:27 Patient with history of cirrhosis, hepatitis, hypertension, congestive heart failure- sb4 typically requires paracentesis monthly- presents with complaints of worsening shortness of breath over the past week. States that his right leg is also very swollen. Reports compliance with his medications. States it has been over a month since he has had a paracentesis and thoracentesis. Historical: - Allergies: 17:18 No Known Allergies; nj1 - PMHx: 17:18 Cirrhosis; Hepatitis; Hypertension; nj1 - Immunization history:: Client reports having NOT received the Covid vaccine. - Infectious Disease History:: Denies. - Social history:: Smoking status: Patient denies any tobacco usage or history of. ROS: 17:27 Constitutional: Negative for fever, chills, and weight loss, sb4 17:27 Cardiovascular: Positive for edema, 17:27 Respiratory: Positive for shortness of breath, 17:27 Abdomen/GI: Positive for abdominal distension, 17:27 All other systems are negative, Exam: 17:27 Head/Face: Normocephalic, atraumatic. Eyes: Extra-ocular motions intact. Periorbital sb4 areas with no swelling, redness, or edema. ENT: Mucous membranes moist. Cardiovascular: Regular rate and rhythm with a normal S1 and S2. Skin: Warm, dry with normal turgor. Normal color with no rashes, no lesions, and no evidence of cellulitis. 17:27 Constitutional: The patient appears alert, awake, in obvious distress, mildly distressed, uncomfortable, 17:27 Respiratory: mild respiratory distress is noted, Respirations: shallow respirations, Respiratory rate: 24 17:27 Abdomen/GI: Inspection: distension, that is moderate, Vital Signs: 17:06 BP 184 / 94; Pulse 79; Resp 24; Temp 98.2(O); Pulse Ox 100% on 2 lpm NC; Weight 83.91 nj1 kg; Height 5 ft. 8 in. ; 18:51 BP 171 / 87; Pulse 67; Resp 26; Pulse Ox 100% ; Pain 10/10; nj1 19:00 BP 162 / 81; Pulse 74; Resp 24; Pulse Ox 100% on 2 lpm NC; me1 20:00 BP 179 / 94; Pulse 69; Resp 25; Pulse Ox 99% on 2 lpm NC; me1 20:31 Pain 4/10; me1 17:06 Body Mass Index 28.13 (83.91 kg, 172.72 cm) nj1 18:51 Pain Scale: Adult nj1 20:31 Pain Scale: Adult me1 MDM: 17:13 Patient medically screened. sb4 18:30 Independent interpretation of the following test(s) in the Emergency Department X-Ray: sb4 My interpretation is my interpretation of the chest xray images are large right pleural effusion. 18:30 Data reviewed: vital signs, nurses notes, EMS record, lab test result(s), EKG, sb4 radiologic studies. Care significantly affected by the following chronic conditions: Hypertension, Congestive Heart Failure, Liver Disease. Counseling: I had a detailed discussion with the patient and/or guardian regarding the historical points, exam findings, and any diagnostic results supporting the discharge/admit diagnosis, the presence of at least one elevated blood pressure reading (>120/80) during this emergency department visit, lab results, radiology results, the need to transfer to another facility, [facility] does not immediately have the required specialist. 05/17 17:14 Order name: Basic Metabolic Panel; Complete Time: 18:19 4 05/17 17:14 Order name: CBC with Diff; Complete Time: 18:28 4 05/17 17:14 Order name: LFT's; Complete Time: 18:19 4 05/17 17:14 Order name: Magnesium; Complete Time: 18:19 4 05/17 17:14 Order name: NT PRO-BNP; Complete Time: 18:19 4 05/17 17:14 Order name: PT-INR; Complete Time: 18:04 4 05/17 17:14 Order name: Troponin HS; Complete Time: 18:19 4 05/17 17:14 Order name: AMMONIA; Complete Time: 18:10 4 05/17 18:03 Order name: CBC Smear Scan; Complete Time: 18:28 EDMS 05/17 17:14 Order name: XRAY Chest (1 view); Complete Time: 18:19 sb4 05/17 18:12 Order name: CT Chest, Abdomen, Pelvis - W/Contrast; Complete Time: 19:12 sb4 05/17 17:14 Order name: Cardiac monitoring; Complete Time: 17:15 sb4 05/17 17:14 Order name: EKG - Nurse/Tech; Complete Time: 17:34 sb4 05/17 17:14 Order name: IV Saline Lock; Complete Time: 17:51 sb4 05/17 17:14 Order name: Labs collected and sent; Complete Time: 17:51 sb4 05/17 17:14 Order name: O2 Per Protocol; Complete Time: 17:15 sb4 05/17 17:14 Order name: O2 Sat Monitoring; Complete Time: 17:15 sb4 EC:34 Rate is 72 beats/min. Rhythm is regular, Normal Sinus Rhythm. MD interval is normal at sb4 162 msec. QRS interval is normal at 82 msec. QT interval is normal at [address] changes noted. Clinical impression: NSR w/ Non-specific ST/T Changes. Interpreted by me. Reviewed by me. Administered Medications: 18:50 Drug: Furosemide IVP 40 mg IVP once; give over 2 minutes Route: IVP; Site: left wrist; nj1 19:45 Follow up: Response: No adverse reaction me1 19:10 Drug: [place] PO 10 mg-325 mg 1 tabs PO once Route: PO; me1 20:31 Follow up: Pain 4/10 Adult; Response: No adverse reaction; Pain is decreased me1 Disposition Summary: 05/17/24 18:32 Transfer Ordered Notes: Transfer Location: [facility] sb4 Reason: Higher level of care sb4 Condition: Fair sb4 Problem: new sb4 Symptoms: are unchanged sb4 Accepting Physician: Dr. 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 EDMS EDMS 17:15 17:15 CBC+H.LAB.BRZ ordered. EDMS EDMS 17:15 17:15 HEPATIC FUNCTION+C.LAB.BRZ ordered. EDMS EDMS 17:15 17:15 MAGNESIUM+C.LAB.BRZ ordered. EDMS EDMS 17:15 17:15 PROBNP+C.LAB.BRZ ordered. EDMS EDMS 17:15 17:15 PROTIME (+INR)+COAG.LAB.BRZ ordered. EDMS EDMS 17:15 17:15 Troponin High Sensitivity+C.LAB.BRZ ordered. EDMS EDMS 17:15 17:15 AMMONIA+C.LAB.BRZ ordered. EDMS EDMS 17:15 17:15 Chest Single View+RAD.RAD.BRZ ordered. EDMS EDMS 18:12 18:12 Chest Abdomen Pelvis W Con+CT.RAD.BRZ ordered. EDMS EDMS 18:33 18:32 hospitalist sb4 sb4 19:31 18:33 hospitalist sb4 sb4 20:31 19:31 Dr. Herzog sb4 me1
[2024-05-17] MEDS ORDERED: FUROSEMIDE 40 MG/4 ML VIAL ONE (18:40)
[2024-05-17] MEDS ORDERED: HYDROCODONE/APAP 10/325 TAB ONE (19:08)
--- NOTE | 2024-05-17 19:12 | RAD REPORT ---
EXAM DESCRIPTION: CT - Chest Abdomen Pelvis W Cont - 05/17/2024 6:30 pm CLINICAL HISTORY: Chest and abdominal pain COMPARISON: January 2024 TECHNIQUE: Computed axial tomography of the chest, abdomen and pelvis was obtained. 100 cc Isovue-30 0 was administered intravenously. Oral contrast was not requested. This limits evaluation of bowel. All CT scans are performed using dose optimization technique as appropriate and may include automated exposure control or mA/KV adjustment according to patient size. FINDINGS: Large loculated right pleural effusion with areas of right middle and lower lobe The left lung is clear. No significant hilar/mediastinal lymphadenopathy Cirrhotic liver. Distended portal vein. Abdominal varices. Spleen 19 centimeters Pancreas, adrenals and right kidney unremarkable. Small nonobstructing left renal calculus. Small to moderate amount of ascites within the abdomen. Moderate ascites within the pelvis Cholelithiasis. No evidence of diverticulitis IMPRESSION: Large loculated right pleural effusion Cirrhosis Cholelithiasis
[2024-05-17 20:51] VITALS: BP 179/94; O2SAT 99
[2024-05-17 21:11] VITALS: TEMP 97.2
--- NOTE | 2024-05-20 12:17 | EKG ---
Test Date: 2024-05-17 Test Time: 17:31:57 Manager Metrology: KAITLIN MEASUREMENT RESULTS: Intervals: Rate: 72 NE: 162 QRSD: 82 QT: 438 QTc: 479 [place]: P: 86 NE: 162 QRS: -29 T: 10 INTERPRETIVE STATEMENTS: Normal sinus rhythm Minimal voltage criteria for LVH, may be normal variant Nonspecific ST abnormality Abnormal ECG Compared to ECG 04/07/2024 18:45:17 ST (T wave) deviation now present Electronically Signed On 05-20-24 12:12:43 CDT by Christiano Interiano
== END 2024-05-17 20:31 | disposition short-term general hospital (02) ==
LOC: ER 17:10
DX: J90 Pleural effusion, not elsewhere classified (principal); R18.8 Other ascites; I50.43 Acute on chronic combined systolic (congestive) and diastolic (congestive) heart failure; I10 Essential (primary) hypertension; K74.60 Unspecified cirrhosis of liver
CPT/HCPCS: 93005; 85025; 80048; 36415; 82140; 83735; 85610; 80076; 84484; 83880; 71260; 74177; 71045; 96374; 99285; Q9967; J1940

== ENCOUNTER 2024-06-09 17:05 | Emergency (ER) | payer OTHER ==
[2024-06-09] MEDS ORDERED: FUROSEMIDE 40 MG/4 ML VIAL ONE (18:32)
[2024-06-09 18:33] LABS: Absolute Basophils 0.1 K/uL (0-0.5); Absolute Eosinophils 0.1 K/uL (0-0.5); Absolute Lymphocytes (CBC) 0.6 K/uL (0.7-4.9); MPV 6.5 fL (7.6-11.3)
[2024-06-09 18:54] LABS: Absolute Monocytes 0.3 K/uL (0.1-1.3); Basophils % 1.3 % (0-1.3); Eosinophils % 2.1 % (0-4.4); Hematocrit 27.9 % (39.6-49.0); Hemoglobin 9.3 g/dL (13.6-17.9); Lymphocytes % 11.5 % (15.3-44.8); MCH 30.3 pg (27.0-35.0); MCHC 33.4 g/dL (32.0-36.0); MCV 90.7 fL (80-100); Neutrophils % 79.1 % (41.7-73.7); Nucleated Red Blood Cells % 0.2 % (0-0); Platelets 151 thou/uL (152-406); RBC Red Blood Cell Count 3.07 M/uL (4.33-5.43); Red Cell Distribution Width 17.2 % (12.1-15.2)
[2024-06-09 18:58] LABS: Albumin 2.4 g/dL (3.4-5.0); Albumin/Globulin Ratio 0.7 (1.1-1.8); Anion Gap 8.9 mEq/L (5.0-15.0); Bilirubin Total 0.5 mg/dL (0.2-1.0); Globulin 3.5 g/dL (2.3-3.5); Magnesium 2.1 mg/dL (1.6-2.4); Potassium 3.9 mEq/L (3.5-5.1); Protein, Total 5.9 g/dL (6.4-8.2); Troponin High Sensitivity 14.9 pg/mL (<58.9)
--- NOTE | 2024-06-09 19:15 | RAD REPORT ---
EXAM DESCRIPTION: RADChest Single View06/09/2024 6:43 pm CLINICAL HISTORY: DYSPNEA COMPARISON: Chest Single View dated 05/17/2024; Chest Single View dated 04/07/2024; Chest Single View d ated 11/23/2023; Chest Single View dated 08/25/2023; Chest Abdomen Pelvis W Cont dated 05/17/2024 TECHNIQUE: Portable AP view of the chest. FINDINGS: No pneumothorax. Mild interval decrease in size in the layering right pleural effusion wit h underlying airspace opacification. Decreased inspiratory effort limits evaluation, however the left lung is otherwise clear. The cardiomediastinal contours are unremarkable. IMPRESSION: Mild interval decrease in size of the layering right pleural effusion. No pneumothorax.
--- NOTE | 2024-06-09 20:39 | RAD REPORT ---
EXAM DESCRIPTION: CT - Chest Abdomen Pelvis W Cont - 06/09/2024 7:37 pm CLINICAL HISTORY: DYSPNEA COMPARISON: Chest Abdomen Pelvis W Cont dated 05/17/2024; Chest Abdomen Pelvis W Cont dated 02/08/2024 TECHNIQUE: Thin axial CT images of the chest, abdomen, and pelvis, performed following intravenous a dministration of iodinated contrast. Multiplanar reformats were generated and reviewed. All CT scans are performed using dose optimization technique as appropriate and may include automated exposure control or mA/KV adjustment according to patient size. FINDINGS: The lungs are clear.Large right pleural effusion, mildly decreased in size at the apex wit h some improved aeration in the right upper lobe. New small layering left pleural effusion.No intrath oracic adenopathy. The liver, spleen, pancreas, adrenal glands and kidneys are within normal limits. Mild free ascitis, decreased in size since prior exam. No bowel obstruction, free air, or abscess. Stable splenomegaly and nodular liver contour suggesting cirrhosis. TIPS has been placed. Partial calcification along the gallbladder wall is again seen. Left lower renal pole [address] No pathologic lymphadenopathy in the abdomen or pelvis. No worrisome osseous finding. IMPRESSION: TIPS has been placed. Mild interval decrease in size of free ascites, and right pleural effusion. New small layering left p leural effusion. No other acute findings.
[2024-06-09] MEDS ORDERED: IPRATROPIUM BROM 0.5MG/2.5ML ONE (21:56)
[2024-06-09] MEDS ORDERED: ALBUTEROL 2.5 MG/3 ML NEB SOL ONE (21:56)
[2024-06-09] MEDS ORDERED: HYDROCODONE/APAP 10/325 TAB ONE (21:57)
--- NOTE | 2024-06-09 22:48 | ER ---
Nurse's Notes [facility] Name: Blaise Renee Age: 63 yrs Sex: Male : 1960 Arrival Date: 06/09/2024 Time: 17:05 Bed 15 Private MD: Diagnosis: Dyspnea;Fluid overload Presentation: 06/09 17:15 Chief complaint: EMS states: they were toned out for SOB and chest discomfort. pt kc6 states he was discharged x1 week ago and started having BLE swelling. Coronavirus screen: At this time, the client does not indicate any symptoms associated with coronavirus-19. Ebola Screen: No symptoms or risks identified at this time. Initial Sepsis Screen: Does the patient meet any 2 criteria? RR > 20 per min. Does the patient have a suspected source of infection? No. Patient's initial sepsis screen is negative. Risk Assessment: Do you want to hurt yourself or someone else? Patient reports no desire to harm self or others. Onset of symptoms was June 09, 2024. 17:15 Method Of Arrival: EMS: [facility] kc6 17:15 Acuity: TRICIA 3 kc6 Triage Assessment: 17:17 General: Appears in no apparent distress. uncomfortable, well groomed, well developed, kc6 Behavior is calm, cooperative, appropriate for age. Pain: Complains of pain in chest, right leg and left leg Pain currently is 10 out of 10 on a pain scale. EENT: No signs and/or symptoms were reported regarding the EENT system. Neuro: Level of Consciousness is awake, alert, obeys commands, Oriented to person, place, time, situation, Appropriate for age. Cardiovascular: Reports chest pain, Capillary refill < 3 seconds. Respiratory: Reports shortness of breath at rest on exertion Airway is patent Trachea midline Respiratory effort is even, labored, pursed lip, using tripod position, Respiratory pattern is symmetrical, tachypnea Onset: The symptoms/episode began/occurred gradually, the patient has moderate shortness of breath. GI: No signs and/or symptoms were reported involving the gastrointestinal system. Abdomen is round noted to have ascites. : No signs and/or symptoms were reported regarding the genitourinary system. Derm: Skin is healthy with good turgor, Skin is dry, Skin is normal, Skin temperature is warm Wound noted right leg and left leg. Musculoskeletal: Circulation, motion, and sensation intact. Capillary refill < 3 seconds, Range of motion: intact in all extremities, Swelling present in right leg and left leg. Historical: - Allergies: 17:17 No Known Allergies; kc6 - PMHx: 17:17 Cirrhosis; Hepatitis; Hypertension; kc6 - Immunization history:: Adult Immunizations up to date. - Infectious Disease History:: Denies. - Social history:: Smoking status: Patient denies any tobacco usage or history of. Screenin:19 [facility] ED Fall Risk Assessment (Adult) History of falling in the last 3 months, kc6 including since admission No falls in past 3 months (0 pts) Confusion or Disorientation No (0 pts) Intoxicated or Sedated No (0 pts) Impaired Gait No (0 pts) Mobility Assist Device Used No (0 pt) Altered Elimination No (0 pt) Score/Fall Risk Level 0 - 2 = Low Risk. Abuse screen: Denies threats or abuse. Denies injuries from another. Nutritional screening: No deficits noted. Tuberculosis screening: No symptoms or risk factors identified. Assessment: 17:30 General: Appears uncomfortable, obese, well groomed, well developed, well nourished, me1 Behavior is calm, cooperative, appropriate for age, Reports they were toned out for SOB and chest discomfort. pt states he was discharged x1 week ago and started having BLE swelling. Pain: Complains of pain in left arm and right arm and left leg and right leg and chest Pain does not radiate. Pain currently is 3 out of 10 on a pain scale. Quality of pain is described as tender, Pain began gradually, Is continuous. Neuro: Level of Consciousness is awake, alert, obeys commands, Oriented to person, place, time, situation. Cardiovascular: Patient's skin is warm and dry. Respiratory: Reports shortness of breath Airway is patent Respiratory effort is labored, Respiratory pattern is regular, symmetrical, Breath sounds are diminished bilaterally. GI: No signs and/or symptoms were reported involving the gastrointestinal system. : No signs and/or symptoms were reported regarding the genitourinary system. EENT: No signs and/or symptoms were reported regarding the EENT system. Derm: No signs and/or symptoms reported regarding the dermatologic system. Skin is intact, is healthy with good turgor, Skin is pink, warm \T\ dry. Musculoskeletal: Swelling present in left arm and right arm and left leg and right leg. 19:24 General: Appears uncomfortable, Behavior is calm, cooperative. Pain: Complains of pain pc2 in left leg and right leg and chest. Neuro: Level of Consciousness is awake, alert, obeys commands, Oriented to person, place, time, situation. Cardiovascular: Patient's skin is warm and dry. Rhythm is regular. Cardiovascular: Reports. Respiratory: Airway is patent Respiratory effort is labored, Respiratory pattern is regular, the patient has moderate shortness of breath. GI: No signs and/or symptoms were reported involving the gastrointestinal system. : No signs and/or symptoms were reported regarding the genitourinary system. Urine is clear. EENT: No signs and/or symptoms were reported regarding the EENT system. Derm: No signs and/or symptoms reported regarding the dermatologic system. Musculoskeletal: Swelling present in right arm and left arm and left leg and right leg. 20:30 Reassessment: Patient appears in no apparent distress at this time. Patient and/or pc2 family updated on plan of care and expected duration. Pain level reassessed. Patient denies pain at this time. 21:15 Reassessment: No changes from previously documented assessment. Patient and/or family pc2 updated on plan of care and expected duration. Pain level reassessed. 22:50 Reassessment: Patient and/or family updated on plan of care and expected duration. Pain pc2 level reassessed. Patient is alert, oriented x 3, equal unlabored respirations, skin warm/dry/pink. 23:29 Reassessment: Patient appears in no apparent distress at this time. pc2 06/10 01:00 Reassessment: Patient appears in no apparent distress at this time. Patient and/or pc2 family updated on plan of care and expected duration. Pain level reassessed. Patient is alert, oriented x 3, equal unlabored respirations, skin warm/dry/pink. Vital Signs: 06/09 17:15 BP 176 / 93; Pulse 74; Resp 22 S; Pulse Ox 100% on 3 lpm NC; Weight 90.72 kg (M); kc6 Height 5 ft. 8 in. (R); Pain 10/10; 18:00 BP 169 / 81; Pulse 78; Resp 22; Pulse Ox 100% on 3 lpm NC; me1 19:00 BP 156 / 82; Pulse 74; Resp 20; Pulse Ox 100% on 3 lpm NC; me1 19:23 BP 156 / 82; Pulse 76; Resp 18; Pulse Ox 98% on 3 lpm NC; pc2 21:00 BP 151 / 78; Pulse 73; Resp 20; Pulse Ox 100% on 3 lpm NC; pc2 23:00 BP 162 / 81; Pulse 86; Resp 18; Pulse Ox 97% on 3 lpm NC; pc2 06/10 01:00 BP 160 / 67; Pulse 77; Resp 18; Temp 98.4; Pulse Ox 100% on 3 lpm NC; pc2 06/09 17:15 Body Mass Index 30.41 (90.72 kg, 172.72 cm) [facility] 06/09 17:15 Pain Scale: Adult [facility] ED Course: 06/09 17:15 Patient arrived in ED. [facility] 17:17 Triage completed. [facility] 17:17 Arm band placed on. kc6 17:19 Patient has correct armband on for positive identification. Placed in gown. Bed in low kc6 position. Call light in reach. Side rails up X2. Pulse ox on. NIBP on. Door closed. Noise minimized. Lights dimmed. Warm blanket given. Pillow given. 17:30 Genny Frausto FNP-C is PHCP. kb 17:30 Tommie Aparicio MD is Attending Physician. kb 17:49 Mikki Godfrey, THERESE is Primary Nurse. me1 18:10 Missed attempt(s): 22 gauge in right upper arm. Bleeding controlled, band aid applied, ll1 catheter tip intact. 18:15 Initial lab(s) drawn, by hi, sent to lab. Missed attempt(s): 22 gauge in left upper ll1 arm. Bleeding controlled, band aid applied, catheter tip intact. 18:20 Missed attempt(s): 20 gauge in right antecubital area. 26 gauge. cm10 18:45 XRAY Chest (1 view) In Process Unspecified. EDMS 18:45 Accessed peripheral vein via ultrasound, utilizing dynamic ultrasound technique Clean \T\ cm10 dry. Dressing intact. Good blood return. Flushes easily. 22G left forearm. 18:49 CMP Sent. me1 18:49 CBC with Diff Sent. me1 18:49 Magnesium Sent. me1 18:49 NT PRO-BNP Sent. me1 18:49 Troponin HS Sent. me1 19:[address] via stretcher. pc2 19:29 No provider procedures requiring assistance completed. pc2 19:39 CT Chest, Abdomen, Pelvis - W/Contrast In Process Unspecified. EDMS 22:06 [facility] TC called to initiate transfer, spoke with Tiffanie. ty 23:55 Acceptance given by Tiffanie Hernández. ty 06/10 01:08 Report given to Tremayne SALEH receiving [facility] Room 1115. pc2 01:15 [facility] ambulance called for transport, ETA 25 Min. ty 01:48 Report given to [facility] at bedside. pc2 01:54 Provided Education on: need for transfer. pc2 01:54 Patient transferred, IV remains in place. pc2 Administered Medications: 06/09 19:00 Drug: Furosemide IVP 40 mg IVP once; give over 2 minutes Route: IVP; Site: left forearm;me1 19:32 Follow up: Response: No adverse reaction pc2 22:06 Drug: Wyalusing PO 10 mg-325 mg 1 tabs PO once Route: PO; pc2 22:40 Follow up: Response: No adverse reaction; Marked relief of symptoms; RASS: Alert and pc2 Calm (0) 22:06 Drug: Albuterol Inhalation 2.5 mg Inhalation once Route: Inhalation; pc2 22:50 Follow up: Response: Marked relief of symptoms pc2 22:06 Drug: Ipratropium Inhalation Aerosol 0.5 mg Inhalation once Route: Inhalation; pc2 22:50 Follow up: Response: No adverse reaction; Marked relief of symptoms pc2 Medication: 19:23 VIS not applicable for this client. pc2 Output: 06/10 01:42 Urine: 900ml (Voided); Total: 900ml. pc2 Outcome: 06/09 22:47 ER care complete, transfer ordered by MD. hunter 06/10 01:54 Transferred by ground EMS [facility]. to [facility] pc2 form completed. Condition: stable Instructed on the need for admit, Demonstrated understanding of instructions, 01:58 Patient left the ED. pc2 Signatures: Dispatcher [employer] EDMS Genny Frausto, ARTIFIC[employer]OWERS SUPERVISOR-C ARTIFICIAL FLOWERS SUPERVISOR-Felipa Simon RN RN ll1 Shaylee Reed RN RN kc6 Laura Sutton RN RN cm10 Mikki Godfrey RN RN me1 Alberto Mondragon Pam, RN RN pc2 Corrections: (The following items were deleted from the chart) 06/09 19:10 19:00 Inserted saline lock: 22 gauge in left forearm, using aseptic technique. cm10 ultrasound guided by THERESE Sanchez me1 19:11 19:10 Accessed peripheral vein via ultrasound, utilizing dynamic ultrasound technique cm10 Clean \T\ dry. Dressing intact. Good blood return. Flushes easily. 22G left forearm. cm10 19:34 17:15 Chief complaint: EMS states: they were toned out for SOB and chest discomfort. pt me1 states he was discharged x1 week ago and started having BLE swelling kc6 06/10 01:13 01:12 Report given to Tremayne SALEH receiving [facility] Room 1115 pc2 pc2 01:52 01:00 BP 160 / 67; Pulse 77bpm; Resp 18bpm; Pulse Ox 100% 3 lpm Nasal Cannula; pc2 pc2
--- NOTE | 2024-06-09 22:48 | EDPHYS ---
Physician Documentation [facility] Name: Blaise Renee Age: 63 yrs Sex: Male : 1960 Arrival Date: 06/09/2024 Time: 17:05 Bed 15 Private MD: ED Physician Tommie Aparicio HPI: 06/09 22:42 This 63 yrs old Male presents to ER via EMS with complaints of Shortness Of Breath, Leg kb Swelling. 22:42 Pt is a 63 year old female who presents for shortness of breath and swelling that kb started 3-4 days ago. States he was recently discharged from [facility].. Historical: - Allergies: 17:17 No Known Allergies; kc6 - PMHx: 17:17 Cirrhosis; Hepatitis; Hypertension; kc6 - Immunization history:: Adult Immunizations up to date. - Infectious Disease History:: Denies. - Social history:: Smoking status: Patient denies any tobacco usage or history of. ROS: 22:40 Constitutional: As per HPI kb Exam: 18:12 ECG was reviewed by the Attending Physician. kb 22:40 Constitutional: This is a well developed, well nourished patient who is awake, alert, kb and in no acute distress. Head/Face: Normocephalic, atraumatic. ENT: Moist Mucous membranes Cardiovascular: Regular rate Abdomen/GI: Soft, non-tender. No distention Skin: Warm, dry with normal turgor. Normal color. Neuro: Awake and alert, GCS 15, oriented to person, place, time, and situation. Moves all extremities. Normal gait. 22:40 Respiratory: mild respiratory distress is noted, Respirations: normal, Breath sounds: wheezing: expiratory that is mild, that is moderate, is heard diffusely, 22:41 Cardiovascular: Edema: 3+ edema bilateral lower extremities, edema to bilateral upper kb extremities, Vital Signs: 17:15 BP 176 / 93; Pulse 74; Resp 22 S; Pulse Ox 100% on 3 lpm NC; Weight 90.72 kg (M); kc6 Height 5 ft. 8 in. (R); Pain 10/10; 18:00 BP 169 / 81; Pulse 78; Resp 22; Pulse Ox 100% on 3 lpm NC; me1 19:00 BP 156 / 82; Pulse 74; Resp 20; Pulse Ox 100% on 3 lpm NC; me1 19:23 BP 156 / 82; Pulse 76; Resp 18; Pulse Ox 98% on 3 lpm NC; pc2 21:00 BP 151 / 78; Pulse 73; Resp 20; Pulse Ox 100% on 3 lpm NC; pc2 23:00 BP 162 / 81; Pulse 86; Resp 18; Pulse Ox 97% on 3 lpm NC; pc2 06/10 01:00 BP 160 / 67; Pulse 77; Resp 18; Temp 98.4; Pulse Ox 100% on 3 lpm NC; pc2 06/09 17:15 Body Mass Index 30.41 (90.72 kg, 172.72 cm) 6 06/09 17:15 Pain Scale: Adult kc6 MDM: 06/09 17:30 Patient medically screened. kb 22:10 Differential diagnosis: volume overload, abnormal electrolytes, liver failure, CHF kb exacerbation. Data reviewed: vital signs, nurses notes. Consideration of Admission/Observation Escalation of care including admission/observation considered. admission considered, but pt requests to be transferred back to [facility] since he was recently discharged from there. 22:41 Management of patient was discussed with the following: Dr Gunn, hospitalist at [facility] kb accepts pt for transfer. Counseling: I had a detailed discussion with the patient and/or guardian regarding the historical points, exam findings, and any diagnostic results supporting the discharge/admit diagnosis, lab results, radiology results, the need for further work-up and treatment in the hospital. 06/09 17:31 Order name: CBC with Diff; Complete Time: 18:59 kb 06/09 17:31 Order name: Magnesium; Complete Time: 18:59 kb 06/09 17:31 Order name: NT PRO-BNP; Complete Time: 18:59 kb 06/09 17:31 Order name: Troponin HS; Complete Time: 18:59 kb 06/09 17:31 Order name: CMP; Complete Time: 18:59 kb 06/09 17:31 Order name: XRAY Chest (1 view); Complete Time: 19:18 kb 06/09 19:00 Order name: CT Chest, Abdomen, Pelvis - W/Contrast; Complete Time: 20:41 kb 06/09 17:31 Order name: Cardiac monitoring; Complete Time: 18:49 kb 06/09 17:31 Order name: EKG - Nurse/Tech; Complete Time: 18:20 kb 06/09 17:31 Order name: IV Saline Lock; Complete Time: 18:49 kb 06/09 17:31 Order name: Labs collected and sent; Complete Time: 18:49 kb 06/09 17:31 Order name: O2 Per Protocol; Complete Time: 17:44 kb 06/09 17:31 Order name: O2 Sat Monitoring; Complete Time: 17:44 kb EC:12 Rate is 76 beats/min. Rhythm is regular. QRS [place] is Normal. LA interval is normal at kb 156 msec. QRS interval is normal at 90 msec. QT interval is normal at 461 msec. Administered Medications: 19:00 Drug: Furosemide IVP 40 mg IVP once; give over 2 minutes Route: IVP; Site: left forearm;nd1 19:32 Follow up: Response: No adverse reaction pc2 22:06 Drug: Midnight PO 10 mg-325 mg 1 tabs PO once Route: PO; pc2 22:40 Follow up: Response: No adverse reaction; Marked relief of symptoms; RASS: Alert and pc2 Calm (0) 22:06 Drug: Albuterol Inhalation 2.5 mg Inhalation once Route: Inhalation; pc2 22:50 Follow up: Response: Marked relief of symptoms pc2 22:06 Drug: Ipratropium Inhalation Aerosol 0.5 mg Inhalation once Route: Inhalation; pc2 22:50 Follow up: Response: No adverse reaction; Marked relief of symptoms pc2 Disposition: 06/10 21:24 Co-signature as Attending Physician, Tommie Aparicio MD I agree with the assessment and johann plan of care. Disposition Summary: 06/09/24 22:47 Transfer Ordered Notes: Transfer Location: [facility] kb Reason: Higher level of care kb Condition: Stable kb Problem: new kb Symptoms: are unchanged kb Accepting Physician: Dr Gunn(06/10/24 01:58) pc2 Diagnosis - Dyspnea kb - Fluid overload kb Forms: - Medication Reconciliation Form kb - SBAR form kb Signatures: Dispatcher [employer] Genny Rider FNP-C FNP-Tommie Quintanilla MD MD cha Campbell, Kaitlyn, RN RN kc6 Mikki Godfrey RN RN me1 Cheri Mehta, RN RN pc2 Corrections: (The following items were deleted from the chart) 06/09 19:01 19:01 Chest Abdomen Pelvis W Con+CT.RAD.BRZ ordered. EDMS EDMS 23:57 22:41 Counseling: I had a detailed discussion with the patient and/or guardian elsa regarding the historical points, exam findings, and any diagnostic results supporting the discharge/admit diagnosis, lab results, radiology results, the need for further work-up and treatment in the hospital, elsa 23:57 22:41 Management of patient was discussed with the following: , hospitalist at [facility] kb accepts pt for transfer. elsa :57 22:47 Dr elsa hunter 06/10 01:58 06/09 23:57 Dr Luis A hunter pc2
[2024-06-10 10:40] VITALS: BP 160/67; TEMP 98.4; O2SAT 100
--- NOTE | 2024-06-10 11:44 | EKG ---
Test Date: 2024-06-09 Test Time: 18:09:20 Chair Lift Operator: KAITLIN MEASUREMENT RESULTS: Intervals: Rate: 76 NV: 156 QRSD: 90 QT: 410 QTc: 461 Bells: P: 69 NV: 156 QRS: -11 T: 58 INTERPRETIVE STATEMENTS: Normal sinus rhythm Normal ECG Compared to ECG 05/17/2024 17:31:57 Left ventricular hypertrophy no longer present ST (T wave) deviation no longer present Electronically Signed On 06-10-24 11:42:21 CDT by Christiano Interiano
== END 2024-06-10 01:58 | disposition short-term general hospital (02) ==
LOC: ER 17:05
DX: R06.00 Dyspnea, unspecified (principal); E87.70 Fluid overload, unspecified
CPT/HCPCS: 85025; 36415; 83735; 84484; 80053; 83880; 71260; 74177; 71045; Q9967; J1940; J7613; J7644; 93005; 96374; 99285